=== PATIENT | female | born 1945 | race Caucasian/White ===

== ENCOUNTER → 2020-08-01 10:31 | Outpatient (BNVA) | payer MEDICARE, SELFPAY | PROVIDERS: PCP Family Medicine; Visit Provider Surgery | DX: L72.9 Follicular cyst of the skin and subcutaneous tissue, unspecified (principal); L08.9 Local infection of the skin and subcutaneous tissue, unspecified | CPT/HCPCS: 99212 ==

== ENCOUNTER 2020-09-18 12:22 | Outpatient (REF) | payer MEDICARE, SELFPAY ==
[2020-09-18 14:57] LABS: Creatinine Urine 39.93 mg/dL; Microalbum/Creatinine Ratio Ur 563.4 ug/mg cr
[2020-09-18 15:00] LABS: Alanine Aminotransferase 14 U/L (0-31); Albumin Level 3.7 g/dL (3.5-5.0); Alkaline Phosphatase 120 U/L (39-117); Anion Gap 14 (12-20); Aspartate Amino Transferase 16 U/L (5-31); Bilirubin Total 0.4 mg/dL (0.0-1.0); Blood Urea Nitrogen 25 mg/dL (9-16); Calcium 8.8 mg/dL (8.4-10.2); Carbon Dioxide 25 mmol/L (22-29); Chloride 105 mmol/L (96-108); Cholesterol 157 mg/dL; Estimated Glomerular Filt Rate 38; Glucose Fasting 146 mg/dL (60-99); HDL Cholesterol 51 mg/dL; LDL Cholesterol Calculated 90 mg/dl; Potassium 4.5 mmol/l (3.3-5.1); Sodium 139 mmol/L (135-145); Triglycerides 81 mg/dL
[2020-09-18 15:23] LABS: Vitamin B12 231 pg/mL (200-900)
[2020-09-19 09:03] LABS: LDL Cholesterol Direct 89 mg/dL (<100)
== END 2020-09-18 12:23 | disposition home or self-care (01) ==
LOC: HO.LAB 12:22
PROVIDERS: PCP Family Medicine; Visit Provider Internal Medicine Endocrinology, Diabetes & Metabolism
DX: E11.21 Type 2 diabetes mellitus with diabetic nephropathy (principal); E11.42 Type 2 diabetes mellitus with diabetic polyneuropathy; E11.22 Type 2 diabetes mellitus with diabetic chronic kidney disease; N18.30 Chronic kidney disease, stage 3 unspecified; E78.5 Hyperlipidemia, unspecified; I10 Essential (primary) hypertension; E66.01 Morbid (severe) obesity due to excess calories; Z79.4 Long term (current) use of insulin
CPT/HCPCS: 80053; 80061; 82043; 82607; 82947; 83721; 99212

== ENCOUNTER 2020-10-16 15:00 | Outpatient (RCR) | payer MEDICARE, SELFPAY | END 2020-10-24 10:46 | disposition other institution (70) | LOC: HO.PT 15:00 | PROVIDERS: PCP Family Medicine; Visit Provider Family Medicine | DX: M54.5 Low back pain (principal); G89.29 Other chronic pain | CPT/HCPCS: 97110; 97162 ==

== ENCOUNTER 2020-10-16 16:19 | Outpatient (REF) | payer MEDICARE, SELFPAY | END 2020-10-16 16:20 | disposition home or self-care (01) | LOC: HO.LAB 16:19 | PROVIDERS: PCP Family Medicine; Visit Provider Internal Medicine | DX: Z20.822 Contact with and (suspected) exposure to COVID-19 (principal) | CPT/HCPCS: 36415; C9803; U0003 ==

== ENCOUNTER 2020-11-07 10:17 | Emergency (ER) | payer MEDICARE, SELFPAY ==
[2020-11-07 10:48] VITALS: BP 146/47; BP 165/75; PULSE 76; PULSE 80; RESP 18; TEMP 36.6; O2SAT 99; BMI 40.4
[2020-11-07 11:02] LABS: Glucose, Whole Blood 139 mg/dL (60-115)
--- NOTE | 2020-11-07 11:06 | CT_ITS ---
EXAMINATION: CT ABDOMEN AND PELVIS WITHOUT CONTRAST CLINICAL INFORMATION: Abdominal pain. COMPARISON: CT 06/27/2018. TECHNIQUE: Multidetector volumetric imaging was performed from the superior aspect of the liver through the pubic symphysis. Sagittal and coronal reformatted images were obtained on the technologist's workstation. This CT examination was performed using dose optimization techniques as appropriate, variously including the following: *Automated exposure control *Adjustment of mA and/or kV according to patient size (this includes techniques or standardized protocols for targeted exams where dose is matched to indication/reason for exam; i.e. extremities or head) *Use of iterative reconstruction technique DLP: 904 mGy-cm FINDINGS: LUNG BASES: The lung bases are clear. Coronary artery calcification. Mitral annular calcification. LIVER, GALLBLADDER, AND BILIARY TREE: The liver is normal in size, shape, and attenuation. No focal hepatic lesion or intrahepatic biliary ductal dilatation is present. Cholecystectomy. Dilated appearance of the common bile duct, similar to prior. No ductal filling defect. PANCREAS: Unremarkable. SPLEEN: Unremarkable. ADRENAL GLANDS: Unremarkable. KIDNEYS AND URETERS: The kidneys are normal in size, shape, and attenuation. No hydronephrosis, hydroureter, or calculi seen. No perinephric stranding. BLADDER: Unremarkable. GASTROINTESTINAL TRACT: The stomach is unremarkable. Normal caliber small bowel. There is no obstruction. No colonic wall thickening or acute inflammatory change. Normal appendix. There is colonic diverticulosis which is most prominent involving the descending and sigmoid colon. No evidence of diverticulitis. No free air or free fluid. ABDOMINAL WALL: No significant hernia is appreciated. LYMPH NODES: Normal. VASCULAR: Normal caliber aorta with moderate atherosclerotic calcification. PELVIC VISCERA: The uterus and adnexa are unremarkable. OSSEOUS STRUCTURES: No acute or suspicious osseous abnormality. Degenerative changes of the spine with grade 1 anterolisthesis of L5 on S1. CT/CT abdomen pelvis wo con IMPRESSION: No acute findings in the abdomen or pelvis. Colonic diverticulosis without diverticulitis.
--- NOTE | 2020-11-07 11:07 | ECG_ITS ---
Test Reason : FLANK PAIN Blood Pressure : / mmHG Vent. Rate : 065 BPM Atrial Rate : 065 BPM P-R Int : 128 ms QRS Dur : 080 ms QT Int : 408 ms P-R-T Axes : 041 026 077 degrees QTc Int : 424 ms Normal sinus rhythm Nonspecific T wave abnormality Abnormal ECG No significant changes when compared with the previous EKG of 02 aug 2019 Referred By: Franci Sanchez Electronically Signed By:MABEL MIDDLETON
--- NOTE | 2020-11-07 11:07 | XR_ITS ---
EXAMINATION: XR CHEST CLINICAL INFORMATION: Unresponsive COMPARISON: 10/06/2019 TECHNIQUE: Frontal view of the chest was obtained. FINDINGS: Cardiac leads overlie the chest. The lungs are well expanded. Mild bronchial wall thickening noted. There is no focal consolidation, edema, or effusion. No pneumothorax. The cardiomediastinal silhouette is within normal limits of size, with a calcified aorta. No acute osseous abnormality. XR/XR chest 1V IMPRESSION: No consolidation. Bronchial wall thickening noted which could be in part chronic. Superimposed acute small airways process possible.
--- NOTE | 2020-11-07 11:13 | ED_ITS ---
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 Patient declined any fever chills, no respiratory symptoms, no chest pain, no headache. Related Data Home Medications Medication Instructions Recorded Confirmed amlodipine 5 mg tablet 10 mg PO DAILY tab 08/01/20 09/18/20 aspirin 81 mg tablet,delayed 81 mg PO DAILY 08/01/20 09/18/20 release atorvastatin 40 mg tablet 40 mg PO BEDTIME 08/01/20 09/18/20 carvedilol 25 mg tablet 25 mg PO Q12H 08/01/20 09/18/20 cilostazol 100 mg tablet 100 mg PO BID 08/01/20 09/18/20 ergocalciferol (vitamin D2) 1,250 1,250 mcg PO QWEEK 08/01/20 09/18/20 mcg (50,000 unit) capsule furosemide 20 mg tablet 20 mg PO QAM 08/01/20 09/18/20 gabapentin 300 mg capsule 300 mg PO BEDTIME 08/01/20 09/18/20 hydralazine 50 mg tablet 50 mg PO TID 08/01/20 09/18/20 lisinopril 40 mg tablet 40 mg PO DAILY 08/01/20 09/18/20 montelukast 10 mg tablet 10 mg PO BEDTIME 08/01/20 09/18/20 Previous Rx's Medication Instructions Recorded insulin glargine U-300 conc 300 47 unit SUBCUT DAILY 90 Days #15 ml 09/18/20 unit/mL (1.5 mL) subcutaneous pen linagliptin 5 mg tablet 5 mg PO DAILY 90 Days #90 tab 09/18/20 repaglinide 0.5 mg tablet 0.5 mg PO BID 90 Days #180 tab 09/18/20 sucralfate 1 gram tablet 2 g PO DAILY #60 tab 09/25/20 pen needle, diabetic 32 gauge x #50 ea 10/08/20 Allergies Allergy/AdvReac Type Severity Reaction Status Date / Time ibuprofen [From MOTRIN] Allergy Intermediate RASH Unverified 06/20/20 15:51 oxycodone [From PERCOCET] Allergy Intermediate ITCHING Unverified 06/20/20 15:51 acetaminophen [Percocet] Allergy Unknown Verified 05/01/20 00:00 Motrin Allergy Unknown high blood Unverified 06/06/20 00:00 pressure Review of Systems Review of Systems: All other systems are reviewed and are negative Constitutional: Reports as per HPI and Reports no additional constitutional complaints Eyes: Reports as per HPI and Reports no additional eye complaints Reports system reviewed and no additional complaints, except as documented Cardiovascular: Reports as per HPI and Reports no additional cardiovascular complaints Respiratory: Reports as per HPI and Reports no additional respiratory complaints Gastrointestinal: Reports as per HPI and Reports no additional gastrointestinal complaints Genitourinary: Reports no additional female genitourinary complaints Musculoskeletal: Reports no additional musculoskeletal complaints Skin/Breast: Reports system reviewed and no additional complaints, except as docu Psychiatric: Reports no additional psychiatric complaints Endocrine: Reports no additional endocrine complaints Hematologic/Lymphatic: Reports no additional hematologic/lymphatic complaints Allergic/Immunologic: Reports no additional allergic/immunologic complaints Reports system reviewed and no additional complaints, except as documented and Reports Abnormal speech present [facility] Past Medical History Medical History Asthma Chronic kidney disease CKD (chronic kidney disease) stage 3, GFR 30-59 ml/min Diabetes mellitus Diabetic nephropathy associated with type 2 diabetes mellitus Diabetic polyneuropathy associated with type 2 diabetes mellitus Dyslipidemia GERD (gastroesophageal reflux disease) Hypertension Infected cyst of skin senior care (current) use of insulin Morbid obesity Thalamic pain syndrome Surgical History History of breast lump/mass excision History of cholecystectomy History of tubal ligation Family History Family History Sister History of renal pelvis cancer Social History Social History Smoking Status: Never smoker Use of substances other than those prescribed or required for medical reasons: No Advance Directives: No Advance Directives Information Provided: No Physical Exam Vital Signs: Vital Signs: Last Vital Signs Temp 98 F 11/07/20 13:57 Pulse 65 11/07/20 13:57 Resp 13 11/07/20 13:57 BP 116/39 L 11/07/20 13:57 Pulse Ox 97 11/07/20 13:57 Body Mass Index 40.4 Vital signs have been reviewed as normal and appeared to be correct. Blood pressure in the high range. Heart rate normal. Respiration rate normal. Temp erature normal. Oxygen saturation normal. Appearance: Alert. Oriented X3. No acute distress. Head: Normal external exam. Normocephalic. Atraumatic. No Reed signs noted. No raccoon eyes noted Eyes: PERRLA. EOMI. Conjunctiva and sclera normal. Eyelids normal. ENT: TM's Normal. Pharynx normal. Uvula midline. Moist mucous membranes. No trismus noted. No drooling noted. No muffled voice noted. Neck: Normal inspection. Neck supple. FROM. No adenopathy. Thyroid Normal. No meningeal signs. No neck mass noted. CVS: Normal heart rate and rhythm. Heart sound normal. No murmurs noted. Pulses normal throughout. Respiratory: No respiratory distress. Painless inspiration. Breath sounds normal. No wheezes/rales/rhonchi noted. Chest nontender. No accessory muscle usage noted or decreased air movement noted. Abdomen: Soft and nontender. Bowel sounds normal in all 4 quadrants. No distention noted. No organomegaly noted. No visible injury noted. Back: No CVA tenderness. Full range of motion noted. Skin: Skin warm and dry. Normal skin color. Normal skin turgor. No rashes/lesions/lacerations noted. Extremities: No lower extremity edema. Extremities exhibit normal range of motion. Extremities nontender. Neuro: Oriented X 3. No motor deficit. No sensory deficit. Reflexes normal. Course Course Course Narrative: Assessment and plan. 75-year-old female who brought him by ambulance after was not able to wake her up this morning, patient is awake alert coherent, patient thinks she was too tired and too sleepy, patient had nonspecific abdominal pain that had negative CT of the abdomen and pelvis, decided slight elevation of BUN and creatinine labs are unremarkable, patient was instructed to drink fluids at home and follow-up with PCP. Medical Decision Making Lab Data Lab results reviewed: Yes I reviewed the patient's lab results. Result diagrams: 11/07/20 11:23 11/07/20 11:23 Labs: Lab Results 11/07/20 11/07/20 11/07/20 Range/Units 10:56 11:23 11:23 WBC 8.6 (4.8-10.8) X10*3/uL RBC 5.03 (4.20-5.50) X10*6/uL Hgb 12.5 (12.0-16.0) g/dl Hct 39.4 (37-47) % MCV 78.3 L (80-98) fL MCH 24.9 L (27.0-33.0) pg MCHC 31.7 (31.0-35.0) g/dl RDW 14.6 (11.0-16.0) % Plt Count 364 (160-400) X10*3/uL MPV 9.5 (9.4-12.3) fL Immature Gran % (Auto) 0.3 (0.0-0.4) % Neut % (Auto) 69.3 (45-73) % Lymph % (Auto) 21.0 (20-40) % [place] % (Auto) 6.1 (2-11) % Eos % (Auto) 2.7 (0-4) % Baso % (Auto) 0.6 (0-2) % Lymph # (Auto) 1.8 (1.2-4.9) X10*3/uL [place] # (Auto) 0.5 (0.1-1.2) X10*3/uL Eos # (Auto) 0.2 (0.0-0.4) X10*3/uL Baso # (Auto) 0.1 (0.0-0.2) X10*3/uL Abs Immat Gran (auto) 0.03 (0.00-0.03) X10*3/uL Absolute Neuts (auto) 6.0 (2.0-8.3) X10*3/uL Absolute Nucleated RBC 0.000 (0.0-0.012) X10*3/uL Nucleated RBC % (auto) 0.0 (0.0-0.2) /100WBC Sodium 139 (135-145) mmol/L Potassium 5.0 (3.3-5.1) mmol/L Chloride 108 (96-108) mmol/L Carbon Dioxide 22 (22-29) mmol/L Anion Gap 14 (12-20) BUN 30 H (9-16) mg/dL Creatinine 1.48 H (0.5-1.4) mg/dL Estim Creat Clear Calc 33.6 Estimated GFR 34 POC Glucose 139 H (60-115) mg/dL Random Glucose 146 H (60-115) mg/dL Calcium 8.9 (8.4-10.2) mg/dL Total Bilirubin 0.4 (0.0-1.0) mg/dL Direct Bilirubin 0.2 (0.0-0.5) mg/dL AST 24 D (5-31) U/L ALT 15 (0-31) U/L Alkaline Phosphatase 122 H (39-117) U/L Troponin I High Sens (<3.5-17.0) ng/L Total Protein 7.7 (6.5-8.0) g/dL Albumin 3.7 (3.5-5.0) g/dL Lipase 45 (8-78) U/L Urine Color Urine Appearance Urine pH (5.0-8.0) Ur Specific Bruin (1.005-1.025) Urine Protein (NEG-TRACE) MG/DL Urine Glucose (UA) (NEG) MG/DL Urine Ketones (NEG) MG/DL Urine Blood (NEG) Urine Nitrite (NEG) Ur Leukocyte Esterase (NEG) COVID-19 (FRANCA) (Negative) COVID-19 Clin Com 11/07/20 11/07/20 11/07/20 Range/Units 11:23 11:23 11:23 WBC (4.8-10.8) X10*3/uL RBC (4.20-5.50) X10*6/uL Hgb (12.0-16.0) g/dl Hct (37-47) % MCV (80-98) fL MCH (27.0-33.0) pg MCHC (31.0-35.0) g/dl RDW (11.0-16.0) % Plt Count (160-400) X10*3/uL MPV (9.4-12.3) fL Immature Gran % (Auto) (0.0-0.4) % Neut % (Auto) (45-73) % Lymph % (Auto) (20-40) % [place] % (Auto) (2-11) % Eos % (Auto) (0-4) % Baso % (Auto) (0-2) % Lymph # (Auto) (1.2-4.9) X10*3/uL [place] # (Auto) (0.1-1.2) X10*3/uL Eos # (Auto) (0.0-0.4) X10*3/uL Baso # (Auto) (0.0-0.2) X10*3/uL Abs Immat Gran (auto) (0.00-0.03) X10*3/uL Absolute Neuts (auto) (2.0-8.3) X10*3/uL Absolute Nucleated RBC (0.0-0.012) X10*3/uL Nucleated RBC % (auto) (0.0-0.2) /100WBC Sodium (135-145) mmol/L Potassium (3.3-5.1) mmol/L Chloride (96-108) mmol/L Carbon Dioxide (22-29) mmol/L Anion Gap (12-20) BUN (9-16) mg/dL Creatinine (0.5-1.4) mg/dL Estim Creat Clear Calc Estimated GFR POC Glucose (60-115) mg/dL Random Glucose (60-115) mg/dL Calcium (8.4-10.2) mg/dL Total Bilirubin (0.0-1.0) mg/dL Direct Bilirubin (0.0-0.5) mg/dL AST (5-31) U/L ALT (0-31) U/L Alkaline Phosphatase (39-117) U/L Troponin I High Sens 4.5 (<3.5-17.0) ng/L Total Protein (6.5-8.0) g/dL Albumin (3.5-5.0) g/dL Lipase (8-78) U/L Urine Color STRAW Urine Appearance HAZY Urine pH 6.0 (5.0-8.0) Ur Specific Bruin 1.010 (1.005-1.025) Urine Protein TRACE (NEG-TRACE) MG/DL Urine Glucose (UA) NEG (NEG) MG/DL Urine Ketones NEG (NEG) MG/DL Urine Blood NEG (NEG) Urine Nitrite NEG (NEG) Ur Leukocyte Esterase NEG (NEG) COVID-19 (FRANCA) Negative (Negative) COVID-19 Clin Com See Note Imaging Data Chest x-ray: Radiologist's impression: No consolidation. Bronchial wall thickening noted which could be in part chronic. Superimposed acute small airways process possible. CT scan - abdomen: Radiologist's impression: No acute findings in the abdomen or pelvis. Colonic diverticulosis without diverticulitis. Discharge Plan Discharge Clinical Impression: Abnormal renal function test Abdominal pain Qualifiers: Abdominal location: unspecified location Qualified Code(s): R10.9 - Unspecified abdominal pain Patient Disposition: Home, Self-Care Instructions: Abdominal Pain (ED) Additional Instructions: Drink oral fluid, follow-up with your primary doctor in regard to your abnormal labs of your kidney function. Prescriptions: No Action sucralfate 1 gram tablet 2 g PO DAILY Qty: 60 RF: 1 (DME) pen needle, diabetic [BD Sia 2nd Gen Pen Needle] 32 gauge x 5/32 needle See Rx Instructions .MEDSUPPLY Qty: 50 RF: 4 Toujeo SoloStar U-300 Insulin 300 unit/mL (1.5 mL) insulin pen 47 unit subcut DAILY 90 Days Qty: 15 RF: 1 Tradjenta 5 mg tablet 5 mg PO DAILY 90 Days Qty: 90 RF: 2 repaglinide 0.5 mg tablet 0.5 mg PO BID 90 Days Qty: 180 RF: 1 amlodipine 5 mg tablet 10 mg PO DAILY RF: 0 aspirin [Adult Aspirin Regimen] 81 mg tablet,delayed release (DR/EC) 81 mg PO DAILY RF: 0 atorvastatin 40 mg tablet 40 mg PO BEDTIME RF: 0 carvedilol 25 mg tablet 25 mg PO Q12H RF: 0 cilostazol 100 mg tablet 100 mg PO BID RF: 0 furosemide 20 mg tablet 20 mg PO QAM RF: 0 gabapentin 300 mg capsule 300 mg PO BEDTIME RF: 0 hydralazine 50 mg tablet 50 mg PO TID RF: 0 lisinopril 40 mg tablet 40 mg PO DAILY RF: 0 montelukast 10 mg tablet 10 mg PO BEDTIME RF: 0 ergocalciferol (vitamin D2) [Vitamin D2] 1,250 mcg (50,000 unit) capsule 1,250 mcg PO QWEEK RF: 0 Referrals: Marycarmen Quijano MD [Primary Care Provider] - 2 days
[2020-11-07 11:28] VITALS: BP 140/47; PULSE 64; RESP 18; O2SAT 100
[2020-11-07 11:30] LABS: MANUAL DIFF FLAG NO
[2020-11-07 11:34] LABS: Hematocrit 39.4 % (37-47); Hemoglobin 12.5 g/dl (12.0-16.0); Imm Gran Pct Auto 0.3 % (0.0-0.4); Mean Corpuscular HGB Conc 31.7 g/dl (31.0-35.0); Mean Corpuscular Hemoglobin 24.9 pg (27.0-33.0); Mean Corpuscular Volume 78.3 fL (80-98); Mean Platelet Volume 9.5 fL (9.4-12.3); Neutrophils Percent Auto 69.3 % (45-73); Platelet Count 364 X10*3/uL (160-400); Red Blood Count 5.03 X10*6/uL (4.20-5.50); Red Cell Distribution Width 14.6 % (11.0-16.0); White Blood Count 8.6 X10*3/uL (4.8-10.8)
[2020-11-07 11:35] LABS: Basophils Absolute Auto 0.1 X10*3/uL (0.0-0.2); Basophils Percent Auto 0.6 % (0-2); Eosinophils Absolute Auto 0.2 X10*3/uL (0.0-0.4); Eosinophils Percent Auto 2.7 % (0-4); Imm Gran Abs Auto 0.03 X10*3/uL (0.00-0.03); Lymphocytes Absolute Auto 1.8 X10*3/uL (1.2-4.9); Monocytes Absolute Auto 0.5 X10*3/uL (0.1-1.2); Monocytes Percent Auto 6.1 % (2-11)
[2020-11-07] MEDS: 0.9 % Sodium Chloride 1,000 ML 999 ML IVCONT (11:35)
[2020-11-07 11:46] LABS: IDNOW Serial# 9DD0AD1C
[2020-11-07 11:47] LABS: COVID-19 Test Negative (Negative)
[2020-11-07 11:54] LABS: Appearance Urine HAZY; Color Urine STRAW; Glucose Urine UA NEG (NEG); Leukocyte Esterase Urine NEG (NEG); Nitrite Urine NEG (NEG); Urine Blood NEG (NEG); Urine Ketones NEG (NEG); Urine Protein TRACE MG/DL (NEG-TRACE)
[2020-11-07 12:07] LABS: Alanine Aminotransferase 15 U/L (0-31); Albumin Level 3.7 g/dL (3.5-5.0); Alkaline Phosphatase 122 U/L (39-117); Anion Gap 14 (12-20); Aspartate Amino Transferase 24 U/L (5-31); Bilirubin Direct 0.2 mg/dL (0.0-0.5); Bilirubin Total 0.4 mg/dL (0.0-1.0); Blood Urea Nitrogen 30 mg/dL (9-16); Calcium 8.9 mg/dL (8.4-10.2); Carbon Dioxide 22 mmol/L (22-29); Chloride 108 mmol/L (96-108); Creatinine Clr Calc Pharmacy 33.6; Estimated Glomerular Filt Rate 34; Glucose Random 146 mg/dL (60-115); Lipase 45 U/L (8-78); Sodium 139 mmol/L (135-145); Total Protein 7.7 g/dL (6.5-8.0)
[2020-11-07 12:11] LABS: Troponin-I High Sensitivity 4.5 ng/L (<3.5-17.0)
[2020-11-07 12:59] VITALS: BP 138/47; PULSE 65; RESP 18; O2SAT 97
--- NOTE | 2020-11-07 13:01 | PC.NURSE ---
pt reports feeling better denies pain at this time, states she is hungry, vs stable, ns on the monitor. pt is very gassy/burping a lot
[2020-11-07 13:57] VITALS: BP 116/39; PULSE 65; RESP 13; TEMP 36.6; O2SAT 97
== END 2020-11-07 15:45 | disposition home or self-care (01) ==
PROVIDERS: Emergency Provider Emergency Medicine; PCP Family Medicine
DX: R94.5 Abnormal results of liver function studies (principal); R10.9 Unspecified abdominal pain; I10 Essential (primary) hypertension; E11.9 Type 2 diabetes mellitus without complications; Z20.822 Contact with and (suspected) exposure to COVID-19; Z79.4 Long term (current) use of insulin; Z79.899 Other long term (current) drug therapy
CPT/HCPCS: 36415; 71045; 74176; 80048; 80076; 81003; 82947; 83690; 84484; 85025; 87635; 93005; 96360; 99284

== ENCOUNTER 2020-12-12 13:51 | Outpatient (REF) | payer MEDICARE, SELFPAY ==
[2020-12-13 09:02] LABS: BV Int Neg Control Negative (Negative); BV Int Pos Control Positive (Positive)
[2020-12-13 14:24] LABS: CT PCR NOT DETECTED (Not Detect.); NG PCR NOT DETECTED (Not Detect.)
== END 2020-12-12 13:52 | disposition home or self-care (01) ==
LOC: HO.LAB 13:51
PROVIDERS: Visit Provider Advanced Practice Midwife
DX: R10.2 Pelvic and perineal pain (principal); N76.0 Acute vaginitis; Z79.4 Long term (current) use of insulin; Z20.2 Contact with and (suspected) exposure to infections with a predominantly sexual mode of transmission
CPT/HCPCS: 87086; 87480; 87491; 87510; 87591; 87660; 99212

== ENCOUNTER 2020-12-17 15:32 | Outpatient (REF) | payer MEDICARE, SELFPAY ==
--- NOTE | ~2020-12-17 | US_ITS ---
EXAMINATION: PELVIC ULTRASOUND CLINICAL INFORMATION: Pelvic and perineal pain COMPARISON: Previous pelvic ultrasound June [address] of the abdomen and pelvis November 2020 TECHNIQUE: Transabdominal and transvaginal pelvic ultrasound was performed. Transvaginal exam was performed for better visualization of the uterus and ovaries. FINDINGS: The uterus is anteverted and measures 7.9 x 5.1 x 6 cm in dimension. No focal uterine lesion is seen. There are peripheral echogenic densities in the uterus which when compared with previous CT scan probably represent vascular calcifications. No focal uterine lesion is seen. There is a small amount of fluid seen in the endometrial canal. The endometrium does not appear thickened, double thickness endometrium measuring 0.2 cm. There is a small amount of fluid seen in the endocervical canal. This is similar to previous exam June 2019. The ovaries are not seen. There is no fluid in the pelvis. US/US transvaginal IMPRESSION: Small amount of fluid in the endometrial canal and endocervical canal similar to previous pelvic ultrasound June 2019. The endometrium does not appear thickened. The ovaries are not seen.
--- NOTE | ~2020-12-17 | US_ITS ---
EXAMINATION: PELVIC ULTRASOUND CLINICAL INFORMATION: Pelvic and perineal pain COMPARISON: Previous pelvic ultrasound June [address] of the abdomen and pelvis November 2020 TECHNIQUE: Transabdominal and transvaginal pelvic ultrasound was performed. Transvaginal exam was performed for better visualization of the uterus and ovaries. FINDINGS: The uterus is anteverted and measures 7.9 x 5.1 x 6 cm in dimension. No focal uterine lesion is seen. There are peripheral echogenic densities in the uterus which when compared with previous CT scan probably represent vascular calcifications. No focal uterine lesion is seen. There is a small amount of fluid seen in the endometrial canal. The endometrium does not appear thickened, double thickness endometrium measuring 0.2 cm. There is a small amount of fluid seen in the endocervical canal. This is similar to previous exam June 2019. The ovaries are not seen. There is no fluid in the pelvis. US/US pelvic complete IMPRESSION: Small amount of fluid in the endometrial canal and endocervical canal similar to previous pelvic ultrasound June 2019. The endometrium does not appear thickened. The ovaries are not seen.
== END 2020-12-17 15:33 | disposition home or self-care (01) ==
LOC: HO.US 15:32
PROVIDERS: Visit Provider Advanced Practice Midwife
DX: R10.2 Pelvic and perineal pain (principal)
CPT/HCPCS: 76830; 76856

== ENCOUNTER → 2020-12-31 14:02 | Outpatient (BNVA) | payer MEDICARE, SELFPAY | PROVIDERS: Visit Provider Advanced Practice Midwife | DX: Z13.89 Encounter for screening for other disorder (principal) | CPT/HCPCS: Q3014 ==

== ENCOUNTER → 2021-01-16 10:38 | Outpatient (BNVA) | payer MEDICARE, SELFPAY | PROVIDERS: Visit Provider Internal Medicine Endocrinology, Diabetes & Metabolism | CPT/HCPCS: Q3014 ==

== ENCOUNTER 2021-01-17 20:14 | Inpatient (IN) | payer MEDICARE, SELFPAY ==
--- NOTE | ~2021-01-17 | CT_ITS ---
EXAMINATION: CT ANGIOGRAM OF THE CHEST WITH AND WITHOUT CONTRAST (CT PULMONARY ANGIOGRAM FOR PE) CLINICAL INFORMATION: Reason for Exam covid with hypoxia COMPARISON: CT chest 04/08/2016, CT abdomen pelvis 11/07/2020 TECHNIQUE: Prior to contrast administration, noncontrast localization images were obtained. Subsequently, multidetector volumetric imaging was performed from the thoracic inlet to below the diaphragms following the administration of 65 mL Omnipaque 350 intravenous contrast. No contrast reaction reported Sagittal, coronal, and MIP oblique sagittal reformatted images were obtained on the CT workstation, uploaded to PACS, and reviewed. This CT examination was performed using dose optimization techniques as appropriate, variously including the following: *Automated exposure control *Adjustment of mA and/or kV according to patient size (this includes techniques or standardized protocols for targeted exams where dose is matched to indication/reason for exam; i.e. extremities or head) *Use of iterative reconstruction technique Total exam dose-length product 462 mGy-cm FINDINGS: QUALITY OF STUDY/CONTRAST BOLUS: Suboptimal. PULMONARY ARTERIES: No large central or segmental pulmonary emboli. THORACIC AORTA: No aneurysm or dissection. LUNG: Diffuse multifocal groundglass infiltrates are present throughout the lungs. PLEURA: No pleural effusion or pneumothorax. MEDIASTINUM: Heart size upper limits of normal. No pericardial effusion. Small reactive mediastinal and hilar lymph nodes are present but there is no gross hilar or mediastinal lymphadenopathy. No evidence of septal bowing or right heart strain. CHEST WALL/AXILLA: No axillary or internal mammary lymphadenopathy. OSSEOUS STRUCTURES: No acute or suspicious osseous abnormality. UPPER ABDOMEN: Status post cholecystectomy No reflux of contrast into the hepatic veins to suggest elevated right heart pressures. CT/CT angio chest PE protocol IMPRESSION: 1. No evidence of pulmonary emboli. 2. Commonly reported imaging features of Covid 19 or viral pneumonia are present with multifocal diffuse groundglass infiltrates. Other processes such as influenza pneumonia or organizing pneumonia, as can be seen with drug toxicity and connective tissue disease, can cause a similar imaging pattern. VTE: negative
--- NOTE | ~2021-01-17 | XR_ITS ---
EXAMINATION: XR CHEST CLINICAL INFORMATION: Dyspnea COMPARISON: 11/07/2020 TECHNIQUE: Frontal view of the chest was obtained. FINDINGS: Since the prior study has developed multifocal patchy ill-defined infiltrates throughout both lungs. Heart size normal. No pleural effusions seen. No evidence of CHF. XR/XR chest 1V IMPRESSION: Commonly reported imaging features of Covid 19 or viral pneumonia are present with extensive patchy groundglass infiltrates throughout both. Other processes such as influenza pneumonia or organizing pneumonia, as can be seen with drug toxicity and connective tissue disease, can cause a similar imaging pattern.
--- NOTE | ~2021-01-17 | IR_ITS ---
EXAMINATION: ULTRASOUND FLUOROSCOPY-GUIDED TEMPORARY DIALYSIS CATHETER. CLINICAL INFORMATION: Needs immediate dialysis. COMPARISON: None TECHNIQUE: Following explaining fluoroscopy and ultrasound-guided placement of right-sided smoker 10 predialysis catheter procedure, benefits and risk, a written consent was obtained via a museum director. Patient was placed supine and the right neck area was cleaned and draped in usual sterile manner. Under sterile ultrasound guidance the right jugular vein was localized in anterior neck and 1% lidocaine was administered along the anterolateral aspect of neck. A single wall needle was then advanced from the skin into the jugular vein under ultrasound guidance. After observing blood return a thin guidewire was advanced into the SVC and needle withdrawn. A 5 Nauruan dilator with sheath was advanced over the guidewire and the guidewire was removed. A 0.035 inch J-wire was advanced through the sheath after removing the dilator under fluoroscopy. The catheter was advanced beyond the heart into the IVC. The 5 Nauruan sheath was removed. Over the guidewire a 12 Nauruan Mahurkar 10. Assess catheter was advanced and placed in SVC. The guidewire was removed the catheter was flushed with simple saline followed by heparinized saline. The catheter was anchored to the skin with two 3-0 nylon sutures. Sterile dressing was applied postprocedure. No IV sedation utilized. Patient tolerated procedure extremely well FINDINGS: On preliminary ultrasound imaging there is widely patent but enlarged jugular vein. Fluoroscopy-guided placement of a right jugular 12 Nauruan, 13 cm long right temporal Mahurkar catheter with its tip in mid SVC. The catheter can be used for dialysis. IR/IR us guide venous access IMPRESSION: Successful ultrasound and fluoroscopy-guided placement of right jugular temporary catheter without immediate complications. Fluoroscopy time: 0.7 minutes. Dose area product: 350 cGy.cm2
--- NOTE | ~2021-01-17 | US_ITS ---
EXAMINATION: US RETROPERITONEAL LIMITED (RENAL ONLY) CLINICAL INFORMATION: Acute renal insufficiency. Evaluate for obstruction. COMPARISON: CTA chest 01/18/2021, CT abdomen noncontrast 11/07/2020. TECHNIQUE: Ultrasound of the kidneys is performed using grayscale imaging and color Doppler. FINDINGS: RIGHT KIDNEY: 11.2 x 5.2 x 5.7 cm (SAG x AP x TRV). There is no hydronephrosis or caliectasis. Renal parenchymal thickness and echogenicity appear within normal. No visible renal sinus calculi. There may be a small cyst lower pole approximately 1.3 cm, difficult to confirm on the submitted images. LEFT KIDNEY: 12.0 x 5.4 x 5.7 cm (SAG x AP x TRV). There is no hydronephrosis or caliectasis. Renal parenchymal thickness and echogenicity appear within normal. No visible renal sinus calculi. US/US renal BI IMPRESSION: No hydronephrosis.
--- NOTE | ~2021-01-17 | IR_ITS ---
EXAMINATION: ULTRASOUND FLUOROSCOPY-GUIDED TEMPORARY DIALYSIS CATHETER. CLINICAL INFORMATION: Needs immediate dialysis. COMPARISON: None TECHNIQUE: Following explaining fluoroscopy and ultrasound-guided placement of right-sided smoker 10 predialysis catheter procedure, benefits and risk, a written consent was obtained via a profiler hand. Patient was placed supine and the right neck area was cleaned and draped in usual sterile manner. Under sterile ultrasound guidance the right jugular vein was localized in anterior neck and 1% lidocaine was administered along the anterolateral aspect of neck. A single wall needle was then advanced from the skin into the jugular vein under ultrasound guidance. After observing blood return a thin guidewire was advanced into the SVC and needle withdrawn. A 5 Guinean dilator with sheath was advanced over the guidewire and the guidewire was removed. A 0.035 inch J-wire was advanced through the sheath after removing the dilator under fluoroscopy. The catheter was advanced beyond the heart into the IVC. The 5 Guinean sheath was removed. Over the guidewire a 12 Guinean Mahurkar 10. Assess catheter was advanced and placed in SVC. The guidewire was removed the catheter was flushed with simple saline followed by heparinized saline. The catheter was anchored to the skin with two 3-0 nylon sutures. Sterile dressing was applied postprocedure. No IV sedation utilized. Patient tolerated procedure extremely well FINDINGS: On preliminary ultrasound imaging there is widely patent but enlarged jugular vein. Fluoroscopy-guided placement of a right jugular 12 Guinean, 13 cm long right temporal Mahurkar catheter with its tip in mid SVC. The catheter can be used for dialysis. IR/IR fluoro guide cv catheter IMPRESSION: Successful ultrasound and fluoroscopy-guided placement of right jugular temporary catheter without immediate complications. Fluoroscopy time: 0.7 minutes. Dose area product: 350 cGy.cm2
[2021-01-17 20:50] VITALS: BP 122/54; PULSE 85; RESP 20; TEMP 37.9; O2SAT 84; BMI 45.7
--- NOTE | 2021-01-17 21:06 | PC.NURSE ---
Patient placed on nonrebreather. Pt's color and appearance is well, aside from tachypnea. Slovak speaking. Reports that is COVID+. Pt speaking in clear sentences at this time with some dyspnea noted. Oxygen saturation improving with non-rebreather. Pt was 75% on room air, 80s% with 6lpm nasal cannula. Triaged by Lorie Wang RN, awaiting primary MD evaluation.
--- NOTE | 2021-01-17 21:09 | ECG_ITS ---
Test Reason : SOB Blood Pressure : / mmHG Vent. Rate : 087 BPM Atrial Rate : 087 BPM P-R Int : 118 ms QRS Dur : 084 ms QT Int : 332 ms P-R-T Axes : 048 010 057 degrees QTc Int : 399 ms Poor data quality Sinus rhythm with occasional Premature ventricular complexes When compared to the previous EKG of Poor data quality in current ECG precludes serial comparison Referred By: Generic ED Physician Electronically Signed By:Kip Johnson
[2021-01-17 21:23] LABS: MANUAL DIFF FLAG NO
[2021-01-17 21:29] LABS: Basophils Percent Auto 0.2 % (0-2); Hematocrit 36.1 % (37-47); Hemoglobin 11.9 g/dl (12.0-16.0); Imm Gran Abs Auto 0.05 X10*3/uL (0.00-0.03); Imm Gran Pct Auto 0.5 % (0.0-0.4); Lymphocytes Absolute Auto 0.9 X10*3/uL (1.2-4.9); Mean Corpuscular Hemoglobin 24.3 pg (27.0-33.0); Mean Corpuscular Volume 73.7 fL (80-98); Mean Platelet Volume 9.6 fL (9.4-12.3); Monocytes Absolute Auto 0.3 X10*3/uL (0.1-1.2); Monocytes Percent Auto 2.9 % (2-11); Neutrophils Absolute Auto 8.5 X10*3/uL (2.0-8.3); Neutrophils Percent Auto 87.4 % (45-73); Platelet Count 307 X10*3/uL (160-400); Red Cell Distribution Width 14.7 % (11.0-16.0); White Blood Count 9.8 X10*3/uL (4.8-10.8)
[2021-01-17 22:10] LABS: Troponin-I High Sensitivity 25.3 ng/L (<3.5-17.0)
[2021-01-17] MEDS: Albuterol/Iprat 2.5/0.5MG 3 ML AMPUL.NEB INHALE (22:23)
[2021-01-17 22:24] VITALS: PULSE 82; O2SAT 92
[2021-01-17 22:27] LABS: COVID-19 Test Positive (Negative)
[2021-01-17 22:28] VITALS: PULSE 75; O2SAT 88
[2021-01-17] MEDS: Albuterol Sulfate (0.083%) 2.5 MG/3 ML VIAL.NEB 5 MG INHALE (22:28)
[2021-01-17 22:32] LABS: B Type Natriuretic Peptide 134 pg/mL (<100)
--- NOTE | 2021-01-17 22:33 | ED_ITS ---
HPI - General Adult General Chief complaint: General Medical Stated complaint: Diarrhea Time Seen by Provider: 01/17/21 21:40 Source: patient Mode of arrival: ambulatory Limitations: language barrier History of Present Illness HPI narrative: PATIENT WITH HISTORY OF ASTHMA OBESITY DIABETES HYPERTENSION BEEN SICK WITH INCREASED SHORTNESS OF BREATH AND COUGH AND LOW-GRADE FEVER FOR LAST 13 DAYS. HER AND DAUGHTER ALSO SICK WITH SAME TESTED POSITIVE FOR COVID ON 01/04 PATIENT HAS BEEN FEELING VERY WEAK AND FOR LAST 3 DAYS BEEN HAVING DIARRHEA 5-6 BOWEL MOVEMENTS WITH NAUSEA NO VOMITING. WHEN SHE ARRIVED IN THE ER PATIENT WAS SATURATING 70-75% AT ROOM AIR Related Data Home Medications Medication Instructions Recorded Confirmed amlodipine 5 mg tablet 10 mg PO DAILY tab 08/01/20 01/16/21 aspirin 81 mg tablet,delayed 81 mg PO DAILY 08/01/20 01/16/21 release carvedilol 25 mg tablet 25 mg PO Q12H 08/01/20 01/16/21 cilostazol 100 mg tablet 100 mg PO BID 08/01/20 01/16/21 ergocalciferol (vitamin D2) 1,250 1,250 mcg PO QWEEK 08/01/20 01/16/21 mcg (50,000 unit) capsule furosemide 20 mg tablet 20 mg PO QAM 08/01/20 01/16/21 gabapentin 300 mg capsule 300 mg PO BEDTIME 08/01/20 01/16/21 hydralazine 50 mg tablet 50 mg PO TID 08/01/20 01/16/21 montelukast 10 mg tablet 10 mg PO BEDTIME 08/01/20 01/16/21 Previous Rx's Medication Instructions Recorded sucralfate 1 gram tablet 2 g PO DAILY #60 tab 09/25/20 fluconazole 150 mg tablet 150 mg PO DAILY #1 tab 12/31/20 atorvastatin 40 mg tablet 40 mg PO BEDTIME 90 Days #90 tab 01/16/21 insulin glargine U-300 conc 300 47 unit SUBCUT DAILY 90 Days #15 ml 01/16/21 unit/mL (1.5 mL) subcutaneous pen linagliptin 5 mg tablet 5 mg PO DAILY 90 Days #90 tab 01/16/21 lisinopril 40 mg tablet 40 mg PO DAILY 90 Days #90 tab 01/16/21 pen needle, diabetic 32 gauge x #50 ea 01/16/21 Allergies Allergy/AdvReac Type Severity Reaction Status Date / Time ibuprofen [From MOTRIN] Allergy Intermediate RASH Verified 01/16/21 10:40 oxycodone [From PERCOCET] Allergy Intermediate ITCHING Verified 01/16/21 10:40 acetaminophen [Percocet] Allergy Unknown unknown Verified 01/16/21 10:40 Motrin Allergy Unknown high blood Verified 01/16/21 10:40 pressure Review of Systems Review of Systems: CONSTITUTIONAL : NO WEIGHT LOSS, NO FEVER, NO CHILLS ENT/MOUTH : NO SORE THROAT, NO RHINORRHEA EYES: NO EYE PAIN, NO SWELLING CARDIOVASCULAR : NO CHEST PAIN, NO PALPITATIONS RESPIRATORY : +COUGH, NO SPUTUM, + SHORTNESS OF BREATH GASTROINTESTINAL : + NAUSEA, NO VOMITING, +DIARRHEA, NO ABDOMINAL PAIN, NO BLACK STOOLS GENITOURINARY : NO DYSURIA, NO URINARY FREQUENCY MUSCULOSKELETAL : NO JOINT PAIN, NO MYALGIAS, NO JOINT SWELLING SKIN : NO SKIN LESIONS, NO RASH NEURO : NO WEAKNESS, NO NUMBNESS, NO DIZZINESS, NO HEADACHE PSYCH : NO ANXIETY/PANIC, NO DEPRESSION HEME/LYMPH: NO BRUISING, NO LYMPHADENOPATHY ENDOCRINE : NO POLYURIA, NO POLYDIPSIA ALL OTHER SYSTEMS REVIEWED AND ARE NEGATIVE [facility] Past Medical History Medical History Asthma Chronic kidney disease CKD (chronic kidney disease) stage 3, GFR 30-59 ml/min Diabetes mellitus Diabetic nephropathy associated with type 2 diabetes mellitus Diabetic polyneuropathy associated with type 2 diabetes mellitus Dyslipidemia GERD (gastroesophageal reflux disease) Hypertension Infected cyst of skin half-way (current) use of insulin Morbid obesity Thalamic pain syndrome Surgical History History of breast lump/mass excision History of cholecystectomy History of tubal ligation Family History Family History Sister History of renal pelvis cancer Social History Social History Alcohol intake: never Smoking Status: Former smoker Advance Directives: No Advance Directives Information Provided: No Gender identity: female Physical Exam Vital Signs: Vital Signs: Last Vital Signs Temp 98.8 F 01/18/21 00:00 Pulse 82 01/18/21 00:00 Resp 21 H 01/18/21 00:00 BP 114/43 L 01/18/21 00:00 Pulse Ox 94 01/18/21 00:00 Body Mass Index 45.7 Const: General: well developed and acute distress Nutritional Appearance: obese Orientation/consciousness: patient oriented x3 HENMT: Head: Yes normal to inspection, Yes normocephalic and Yes atraumatic Ears: hearing grossly normal bilaterally Mouth: Normal oral and palatal mucosa present Throat: Yes posterior oropharynx normal Eyes: General: appearance normal, both eyes and all related structures Neck: Neck: Yes normal visual inspection, Yes full ROM and Yes no lymphaden opathy Chest: Chest palpation & inspection: normal inspection of the chest Resp: Effort & Inspection: able to speak in complete sentences, labored, nasal flaring, uses accessory muscles and prolonged expiratory phase Auscultation: crackles, rales, rhonchi and wheezes Cardio: Jugular venous distension: no JVD Palpation: normal PMI Rate: regular rate Rhythm: regular rhythm Heart sounds: S1 normal heart sound present and S2 normal heart sound present Peripheral pulses: Peripheral pulses 2+ throughout GI: Inspection: Yes normal to inspection Palpation (GI): Soft to palpation and nontender Auscultation: normal bowel sounds : General: Yes no CVA tenderness Back/Spine/Pelvis: Back: no CVA tenderness Thoracic/Lumbar Spine: thoracic and lumbar spine normal to inspection, No thoracic spinal tenderness and No lumbar spinal tenderness Skin: General skin exam: no rashes or lesions noted Neuro: General: patient oriented x3, moves all extremities, no focal motor deficits and CN's II-XI intact bilaterally Extrem: General: Yes normal to inspection, Yes full ROM, Yes no calf tenderness and No pedal edema Medical Decision Making [facility] Narrative Medical decision making narrative: PATIENT WITH COVID-19 POSITIVE WITH BILATERAL INFILTRATE WITH SIGNIFICANT HYPOXIA WITH DIABETES AND HYPERTENSION AND ASTHMA. WILL ADMIT PATIENT FOR OXYGEN TREATMENT PATIENT REQUIRING 100% NON-REBREATHER TO KEEP SATURATION ABOVE 94% AT THIS TIME PATIENT IS COMFORTABLE WILL CHANGE TO HIGH-FLOW IF SHE GETS MORE SHORT OF BREATH. CTA CHEST IS NEGATIVE FOR PE BUT SHOWED BILATERAL DIFFUSE INFILTRATES. PATIENT HAS HIGH LEVEL OF INFLAMMATORY MARKERS. WILL GIVE IV STEROIDS PROPHYLACTIC ANTIBIOTIC ROCEPHIN ZITHROMAX AND ADMIT Lab Data Lab results reviewed: Yes I reviewed the patient's lab results. Result diagrams: 01/17/21 21:17 01/17/21 22:32 Labs: Lab Results 01/17/21 01/17/21 01/17/21 Range/Units 21:17 21:17 21:17 WBC 9.8 (4.8-10.8) X10*3/uL RBC 4.90 (4.20-5.50) X10*6/uL Hgb 11.9 L (12.0-16.0) g/dl Hct 36.1 L (37-47) % MCV 73.7 L (80-98) fL MCH 24.3 L (27.0-33.0) pg MCHC 33.0 (31.0-35.0) g/dl RDW 14.7 (11.0-16.0) % Plt Count 307 (160-400) X10*3/uL MPV 9.6 (9.4-12.3) fL Immature Gran % (Auto) 0.5 H (0.0-0.4) % Neut % (Auto) 87.4 H (45-73) % Lymph % (Auto) 9.0 L (20-40) % [place] % (Auto) 2.9 (2-11) % Eos % (Auto) 0.0 (0-4) % Baso % (Auto) 0.2 (0-2) % Lymph # (Auto) 0.9 L (1.2-4.9) X10*3/uL [place] # (Auto) 0.3 (0.1-1.2) X10*3/uL Eos # (Auto) 0.0 (0.0-0.4) X10*3/uL Baso # (Auto) 0.0 (0.0-0.2) X10*3/uL Abs Immat Gran (auto) 0.05 H (0.00-0.03) X10*3/uL Absolute Neuts (auto) 8.5 H (2.0-8.3) X10*3/uL Absolute Nucleated RBC 0.000 (0.0-0.012) X10*3/uL Nucleated RBC % (auto) 0.0 (0.0-0.2) /100WBC PT (10.8-13.0) SEC INR (0.9-1.1) APTT (24.1-38.0) SEC D-Dimer NG/ML Hold Blue Top SEE NOTE Sodium (135-145) mmol/L Potassium (3.3-5.1) mmol/L Chloride (96-108) mmol/L Carbon Dioxide (22-29) mmol/L Anion Gap (12-20) BUN (9-16) mg/dL Creatinine (0.5-1.4) mg/dL Estim Creat Clear Calc Estimated GFR Random Glucose (60-115) mg/dL Lactic Acid (0.5-2.0) mmol/L Calcium (8.4-10.2) mg/dL Lactate Dehydrogenase (122-220) U/L Troponin I High Sens 25.3 H D (<3.5-17.0) ng/L C-Reactive Protein (< or = 0.50) mg/dL B-Natriuretic Peptide 134 H (<100) pg/mL COVID-19 ([facility]ANCA) (Negative) COVID-19 Clin Com 01/17/21 01/17/21 01/17/21 Range/Units 21:56 22:32 22:32 WBC (4.8-10.8) X10*3/uL RBC (4.20-5.50) X10*6/uL Hgb (12.0-16.0) g/dl Hct (37-47) % MCV (80-98) fL MCH (27.0-33.0) pg MCHC (31.0-35.0) g/dl RDW (11.0-16.0) % Plt Count (160-400) X10*3/uL MPV (9.4-12.3) fL Immature Gran % (Auto) (0.0-0.4) % Neut % (Auto) (45-73) % Lymph % (Auto) (20-40) % [place] % (Auto) (2-11) % Eos % (Auto) (0-4) % Baso % (Auto) (0-2) % Lymph # (Auto) (1.2-4.9) X10*3/uL [place] # (Auto) (0.1-1.2) X10*3/uL Eos # (Auto) (0.0-0.4) X10*3/uL Baso # (Auto) (0.0-0.2) X10*3/uL Abs Immat Gran (auto) (0.00-0.03) X10*3/uL Absolute Neuts (auto) (2.0-8.3) X10*3/uL Absolute Nucleated RBC (0.0-0.012) X10*3/uL Nucleated RBC % (auto) (0.0-0.2) /100WBC PT (10.8-13.0) SEC INR (0.9-1.1) APTT (24.1-38.0) SEC D-Dimer NG/ML Hold Blue Top Sodium 133 L (135-145) mmol/L Potassium 4.8 (3.3-5.1) mmol/L Chloride 100 (96-108) mmol/L Carbon Dioxide 20 L (22-29) mmol/L Anion Gap 18 (12-20) BUN 30 H (9-16) mg/dL Creatinine 1.42 H (0.5-1.4) mg/dL Estim Creat Clear Calc 40.7 Estimated GFR 36 Random Glucose 120 H (60-115) mg/dL Lactic Acid 1.0 (0.5-2.0) mmol/L Calcium 8.3 L D (8.4-10.2) mg/dL Lactate Dehydrogenase 494 H (122-220) U/L Troponin I High Sens (<3.5-17.0) ng/L C-Reactive Protein 15.78 H (< or = 0.50) mg/dL B-Natriuretic Peptide (<100) pg/mL COVID-19 ([facility]ANCA) Positive A (Negative) COVID-19 Clin Com See Note 01/17/21 Range/Units 22:32 WBC (4.8-10.8) X10*3/uL RBC (4.20-5.50) X10*6/uL Hgb (12.0-16.0) g/dl Hct (37-47) % MCV (80-98) fL MCH (27.0-33.0) pg MCHC (31.0-35.0) g/dl RDW (11.0-16.0) % Plt Count (160-400) X10*3/uL MPV (9.4-12.3) fL Immature Gran % (Auto) (0.0-0.4) % Neut % (Auto) (45-73) % Lymph % (Auto) (20-40) % [place] % (Auto) (2-11) % Eos % (Auto) (0-4) % Baso % (Auto) (0-2) % Lymph # (Auto) (1.2-4.9) X10*3/uL [place] # (Auto) (0.1-1.2) X10*3/uL Eos # (Auto) (0.0-0.4) X10*3/uL Baso # (Auto) (0.0-0.2) X10*3/uL Abs Immat Gran (auto) (0.00-0.03) X10*3/uL Absolute Neuts (auto) (2.0-8.3) X10*3/uL Absolute Nucleated RBC (0.0-0.012) X10*3/uL Nucleated RBC % (auto) (0.0-0.2) /100WBC PT 12.3 (10.8-13.0) SEC INR 1.0 (0.9-1.1) APTT 31.9 (24.1-38.0) SEC D-Dimer 1383 NG/ML Hold Blue Top Sodium (135-145) mmol/L Potassium (3.3-5.1) mmol/L Chloride (96-108) mmol/L Carbon Dioxide (22-29) mmol/L Anion Gap (12-20) BUN (9-16) mg/dL Creatinine (0.5-1.4) mg/dL Estim Creat Clear Calc Estimated GFR Random Glucose (60-115) mg/dL Lactic Acid (0.5-2.0) mmol/L Calcium (8.4-10.2) mg/dL Lactate Dehydrogenase (122-220) U/L Troponin I High Sens (<3.5-17.0) ng/L C-Reactive Protein (< or = 0.50) mg/dL B-Natriuretic Peptide (<100) pg/mL COVID-19 ([facility]ANCA) (Negative) COVID-19 Clin Com Imaging Data CT scan - chest: Attestation: I personally reviewed and interpreted this imaging study as follows: Radiologist's impression: [address] [id number] Scan ReportSigned Patient: Waqas MontesR#: [id number]: 5Acct:[id number]/Sex: 75 / FADM Date: 01/17/21Loc: [id number] Dr: Femi Rosales MD Ordering Physician: Marcel Patel MD Date of Service: 01/17/21 Procedure(s): CT angio chest PE protocol Accession Number(s): [id number] cc: Marcel Patel MD~ EXAMINATION: CT ANGIOGRAM OF THE CHEST WITH AND WITHOUT CONTRAST (CT PULMONARY ANGIOGRAM FOR PE) CLINICAL INFORMATION: Reason for Exam covid with hypoxia COMPARISON: CT chest 04/08/2016, CT abdomen pelvis 11/07/2020 TECHNIQUE: Prior to contrast administration, noncontrast localization images were obtained. Subsequently, multidetector volumetric imaging was performed from the thoracic inlet to below the diaphragms following the administration of 65 mL Omnipaque 350 intravenous contrast. No contrast reaction reported Sagittal, coronal, and MIP oblique sagittal reformatted images were obtained on the CT workstation, uploaded to PACS, and reviewed. This CT examination was performed using dose optimization techniques as appropriate, variously including the following: *Automated exposure control *Adjustment of mA and/or kV according to patient size (this includes techniques or standardized protocols for targeted exams where dose is matched to indication/reason for exam; i.e. extremities or head) *Use of iterative reconstruction technique Total exam dose-length product 462 mGy-cm FINDINGS: QUALITY OF STUDY/CONTRAST BOLUS: Suboptimal. PULMONARY ARTERIES: No large central or segmental pulmonary emboli. THORACIC AORTA: No aneurysm or dissection. LUNG: Diffuse multifocal groundglass infiltrates are present throughout the lungs. PLEURA: No pleural effusion or pneumothorax. MEDIASTINUM: Heart size upper limits of normal. No pericardial effusion. Small reactive mediastinal and hilar lymph nodes are present but there is no gross hilar or mediastinal lymphadenopathy. No evidence of septal bowing or right heart strain. CHEST WALL/AXILLA: No axillary or internal mammary lymphadenopathy. OSSEOUS STRUCTURES: No acute or suspicious osseous abnormality. UPPER ABDOMEN: Status post cholecystectomy No reflux of contrast into the hepatic veins to suggest elevated right heart pressures. CT/CT angio chest PE protocol IMPRESSION: 1. No evidence of pulmonary emboli. 2. Commonly reported imaging features of Covid 19 or viral pneumonia are present with multifocal diffuse groundglass infiltrates. Other processes such as influenza pneumonia or organizing pneumonia, as can be seen with drug toxicity and connective tissue disease, can cause a similar imaging pattern. VTE: negative Dictated By:ARACELI MALAGON MDSigned By:<Electronically signed by ARACELI MALAGON MD in OV>01/18/21 0035 DD/ [id number] ECG Data Attestation: I personally reviewed and interpreted this ECG as follows: Interpretation: NORMAL SINUS RHYTHM HEART RATE 87 BEATS PER MINUTE NORMAL INTERVALS NORMAL AXIS NO ACUTE ST-T CHANGE AND NO ACUTE ISCHEMIA Critical Care Time Critical Care Time Critical Care Time: Yes Total Critical Care Time: 50 Attestation: I SPENT 50 MINUTES OF CRITICAL CARE, WITH INTERVENTIONS, ASSESSMENTS, SPEAKING TO PATIENT, AND FAMILY. Discharge Plan Discharge Clinical Impression: COVID-19, Hypoxia Patient Disposition: Admitted As Inpatient
[2021-01-17 22:51] LABS: Prothrombin Time 12.3 SEC (10.8-13.0)
[2021-01-17 22:54] LABS: Partial Thromboplastin Time 31.9 SEC (24.1-38.0)
[2021-01-17 23:03] LABS: D Dimer 1383 NG/ML
[2021-01-17] MEDS: cefTRIAXone sodium 1 GM in 0.9 % Sodium Chloride 50 ML IV (23:07)
[2021-01-17 23:23] LABS: Anion Gap 18 (12-20); Blood Urea Nitrogen 30 mg/dL (9-16); Calcium 8.3 mg/dL (8.4-10.2); Carbon Dioxide 20 mmol/L (22-29); Chloride 100 mmol/L (96-108); Creatinine Clr Calc Pharmacy 40.7; Estimated Glomerular Filt Rate 36; Glucose Random 120 mg/dL (60-115); Potassium 4.8 mmol/L (3.3-5.1); Sodium 133 mmol/L (135-145)
[2021-01-17 23:26] LABS: C Reactive Protein 15.78 mg/dL (< or = 0.50)
[2021-01-17 23:32] LABS: Lactate Dehydrogenase 494 U/L (122-220)
--- NOTE | 2021-01-17 23:37 | PC.NURSE ---
Patient has two 20g IV accesses. 20g IV in Left AC, 20g IV in Left Forearm/Wrist. Both IVs patent & functional. Recollect drawn and sent for analysis. Plan for admission. lang interpreter present during interactions. COVID+, remains on nonrebreather, 92-93% on nonrebreather but denies SOB with this RN. Pt is visibly experiencing dyspnea, tachypnea, but has improved since arrival to ED. Radiology aware of patent peripheral accesses. Will continue to monitor. Hospitalist has evaluated patient. Awaiting admission bed.
--- NOTE | 2021-01-17 23:59 | PM.IMHP ---
History of Present Illness Date of Service: 01/18/21 Chief Complaint: Diarrhea 75-year-old female a past medical history of hypertension, hyperlipidemia, diabetes, diabetic neuropathy, diabetic nephropathy, coronary artery disease-multivessel disease, peripheral vascular disease diagnosed with COVID few days ago presented to the hospital with a chief complaint of diarrhea. Patient mentioned that she has been having diarrhea over the past few days but no abdominal pain. Denies any numbness tingling. Mentions occasional shortness of breath. Denies any cough. Denies any fever chills cough. Mention the her family members her COVID positive. Denies any chest pain palpitations lightheadedness dizziness. Review of all other systems is negative except mentioned above ER course: Per ER team patient noted to be dyspneic on presentation saturating 70% on room air, subsequently placed on non-rebreather with improvement oxygenation to 88-90%. Patient was not in respiratory distress. Breathing comfortably and speaking in full sentences. Lab showed creatinine of 1.4; patient was given Decadron and inhaler. Admitted to the hospital for further management. [facility] Medical History Asthma Chronic kidney disease CKD (chronic kidney disease) stage 3, GFR 30-59 ml/min Diabetes mellitus Diabetic nephropathy associated with type 2 diabetes mellitus Diabetic polyneuropathy associated with type 2 diabetes mellitus Dyslipidemia GERD (gastroesophageal reflux disease) Hypertension Infected cyst of skin custodial (current) use of insulin Morbid obesity Thalamic pain syndrome Family History Sister History of renal pelvis cancer Surgical History History of breast lump/mass excision History of cholecystectomy History of tubal ligation Social History Household Members: Spouse Housing: House Alcohol intake: current Alcohol intake frequency: holidays/special occasions only Smoking Status: Never smoker service: No Current occupational status: unemployed Gender identity: female Meds Allergies Allergy/AdvReac Type Severity Reaction Status Date / Time ibuprofen [From MOTRIN] Allergy Intermediate RASH Verified 01/18/21 02:29 oxycodone [From PERCOCET] Allergy Intermediate ITCHING Verified 01/18/21 02:29 acetaminophen [Percocet] Allergy Unknown unknown Verified 01/18/21 02:29 Motrin Allergy Unknown high blood Verified 01/18/21 02:29 pressure Active Medications: Current Medications Generic Name Dose Route Start Last Admin Trade Name Freq PRN Reason Stop Dose Admin Acetaminophen 650 mg 01/17/21 23:52 Acetaminophen 325 Mg Tablet PO Q6H PRN Pain, Mild (Pain Scale 1-3) Albuterol Sulfate 4 puff 01/17/21 23:52 Albuterol Sulfate 90 Mcg 8 Gm Inhaler INHALE Q2H PRN Shortness of Breath/Wheezing Azithromycin 500 mg 01/17/21 23:45 Azithromycin 500 Mg Tablet PO Q24H [facility] Dexamethasone 6 mg 01/18/21 09:00 Dexamethasone 6 Mg Tablet PO DAILY [facility] Enoxaparin Sodium 40 mg 01/17/21 23:45 Enoxaparin Sodium 40 Mg/0.4 Ml Syringe SUBCUT Q24H [facility] Ceftriaxone Sodium 1 gm/ 50 mls @ 100 mls/hr 01/17/21 23:45 Sodium Chloride IV Q24H [facility] Insulin Glargine 30 unit 01/18/21 21:00 Insulin Glargine,Hum.Rec.Anlog 100 Unit/Ml 10 Ml Vial SUBCUT BEDTIME [facility] Insulin Human Lispro 0 unit 01/18/21 07:30 Insulin Lispro 100 Unit/Ml 3 Ml Vial SUBCUT QIDACHS [facility] Protocol Sodium Chloride 3 ml 01/18/21 00:00 0.9 % Sodium Chloride Flush 3 Ml Syringe IVFLUSH QSHIFT [facility] Home Medications Medication Instructions Recorded Confirmed Last Taken Type amlodipine 10 mg PO DAILY 01/18/21 01/18/21 Unknown History aspirin 81 mg PO DAILY 01/18/21 01/18/21 Unknown History atorvastatin 40 mg PO BEDTIME 01/18/21 01/18/21 Unknown History carvedilol 25 mg PO Q12H 01/18/21 01/18/21 Unknown History cilostazol 100 mg PO BID 01/18/21 01/18/21 Unknown History ergocalciferol (vitamin D2) 1,250 mcg PO QWEEK 01/18/21 01/18/21 Unknown History fluconazole 150 mg PO DAILY 01/18/21 01/18/21 Unknown History furosemide 20 mg PO QAM 01/18/21 01/18/21 Unknown History gabapentin 300 mg PO BEDTIME 01/18/21 01/18/21 Unknown History hydralazine 50 mg PO TID 01/18/21 01/18/21 Unknown History insulin glargine U-300 conc 47 unit SUBCUT DAILY 01/18/21 01/18/21 Unknown History linagliptin 5 mg PO DAILY 01/18/21 01/18/21 Unknown History lisinopril 40 mg PO DAILY 01/18/21 01/18/21 Unknown History montelukast 10 mg PO BEDTIME 01/18/21 01/18/21 Unknown History sucralfate 2 g PO DAILY 01/18/21 01/18/21 Unknown History Physical Exam Vital Signs and Narrative: Vital Signs: Last Vital Signs Temp 100.2 F 01/17/21 20:50 Pulse 75 01/17/21 22:28 Resp 20 01/17/21 20:50 BP 122/54 L 01/17/21 20:50 Pulse Ox 84 L 01/17/21 20:50 Body Mass Index 45.7 Gen: Appears be in no acute distress; on supplemental oxygen; breathing comfortably, speaking in full sentences HEENT: NCAT, Moist mucosa. Pulmonary: Course breath sounds, fair air entry CVS: Normal S1-S2 Abdomen: BS+, Soft, Nontender Extremities: Warm well perfused Neuro: Alert and awake. Results Labs CBC and Chem 7: 01/25/21 05:59 01/27/21 06:03 Labs: Laboratory Results - last 24 hr 01/17/21 01/17/21 01/17/21 21:17 21:17 21:17 MCV 73.7 L MCH 24.3 L MCHC 33.0 RDW 14.7 Plt Count 307 MPV 9.6 Immature Gran % (Auto) 0.5 H Neut % (Auto) 87.4 H Lymph % (Auto) 9.0 L [place] % (Auto) 2.9 Eos % (Auto) 0.0 Baso % (Auto) 0.2 Lymph # (Auto) 0.9 L [place] # (Auto) 0.3 Eos # (Auto) 0.0 Baso # (Auto) 0.0 Abs Immat Gran (auto) 0.05 H Absolute Neuts (auto) 8.5 H Absolute Nucleated RBC 0.000 Nucleated RBC % (auto) 0.0 PT INR APTT D-Dimer Hold Blue Top SEE NOTE Anion Gap Creatinine Estim Creat Clear Calc Estimated GFR Random Glucose Lactic Acid Calcium Lactate Dehydrogenase Troponin I High Sens 25.3 H D C-Reactive Protein B-Natriuretic Peptide 134 H COVID-19 ([facility]AN[facility]) COVID-19 Clin Com 01/17/21 01/17/21 01/17/21 21:56 22:32 22:32 MCV MCH MCHC RDW Plt Count MPV Immature Gran % (Auto) Neut % (Auto) Lymph % (Auto) [place] % (Auto) Eos % (Auto) Baso % (Auto) Lymph # (Auto) [place] # (Auto) Eos # (Auto) Baso # (Auto) Abs Immat Gran (auto) Absolute Neuts (auto) Absolute Nucleated RBC Nucleated RBC % (auto) PT INR APTT D-Dimer Hold Blue Top Anion Gap 18 Creatinine 1.42 H Estim Creat Clear Calc 40.7 Estimated GFR 36 Random Glucose 120 H Lactic Acid 1.0 Calcium 8.3 L D Lactate Dehydrogenase 494 H Troponin I High Sens C-Reactive Protein 15.78 H B-Natriuretic Peptide COVID-19 ([facility]ANCA) Positive A COVID-19 Clin Com See Note 01/17/21 22:32 MCV MCH MCHC RDW Plt Count MPV Immature Gran % (Auto) Neut % (Auto) Lymph % (Auto) [place] % (Auto) Eos % (Auto) Baso % (Auto) Lymph # (Auto) [place] # (Auto) Eos # (Auto) Baso # (Auto) Abs Immat Gran (auto) Absolute Neuts (auto) Absolute Nucleated RBC Nucleated RBC % (auto) PT 12.3 INR 1.0 APTT 31.9 D-Dimer 1383 Hold Blue Top Anion Gap Creatinine Estim Creat Clear Calc Estimated GFR Random Glucose Lactic Acid Calcium Lactate Dehydrogenase Troponin I High Sens C-Reactive Protein B-Natriuretic Peptide COVID-19 ([facility]ANCA) COVID-19 Clin Com Imaging Radiologist's Impressions: Impressions Chest X-Ray 01/17/21 21:09 IMPRESSION: Commonly reported imaging features of Covid 19 or viral pneumonia are present with extensive patchy groundglass infiltrates throughout both. Other processes such as influenza pneumonia or organizing pneumonia, as can be seen with drug toxicity and connective tissue disease, can cause a similar imaging pattern. Assessment and Plan (1) COVID-19: Status: Acute 75-year-old female with a past medical history of hypertension, hyperlipidemia, diabetes, chronic kidney disease, CAD with multivessel disease presented to the hospital with a chief complaint of shortness of breath ER patient was recently diagnosed COVID-19 positive. Chest x-ray showed COVID-19 pneumonia. Admitted for further management. COVID-19 pneumonia: Continue Decadron, ceftriaxone, azithromycin. Id consult for further recommendations. Acute hypoxic respiratory failure: In the setting of COVID-19 pneumonia. Supplemental oxygen. Patient will placed on high-flow. Albuterol inhaler p.r.n.. CT chest pending Diabetes: Will keep the patient on Lantus 30 units and insulin sliding scale. Hypertension: Continue home medications. For all other chronic conditions, home medications will be continued DVT prophylaxis: Lovenox Code status: Full code
[2021-01-18] VITALS (8 sets, daily range): BP systolic 114–131; BP diastolic 43–63; PULSE 71–82; RESP 18–24; TEMP 36.4–37.1; O2SAT 90–94; BMI 37.8
[2021-01-18] MEDS: iohexoL 350 MG/ML 100 ML INFUS..BTL 65 ML IV (00:16)
[2021-01-18] MEDS: Enoxaparin Sodium 40 MG/0.4 ML SYRINGE SUBCUT ×2 (00:18→20:05)
[2021-01-18] MEDS: Azithromycin 500 MG in 0.9 % Sodium Chloride 250 ML 125 MG IV (00:18)
[2021-01-18] MEDS: 0.9 % Sodium Chloride Flush 3 ML SYRINGE IVFLUSH ×4 (00:19→19:51)
--- NOTE | 2021-01-18 02:16 | PC.NURSE ---
Patient placed on bedpan at this time. Urine specimen being collected and sent to lab for analysis. DIEGO Garcias at bedside assisting patient. Pt remains on nonrebreather, tolerating well. Awaiting admission bed assignment. Will continue to monitor.
[2021-01-18 02:35] LABS: Appearance Urine CLEAR; Color Urine YELLOW; Glucose Urine UA NEG (NEG); Leukocyte Esterase Urine NEG (NEG); Nitrite Urine NEG (NEG); PH 5.5 (5.0-8.0); Specific Gravity - Urine 1.015 (1.005-1.025); Urine Blood NEG (NEG); Urine Ketones NEG (NEG); Urine Protein 2+ MG/DL (NEG-TRACE)
[2021-01-18 02:41] LABS: Amorphous Sediment Urine 1+ /LPF; Bacteria Urine 1+ /LPF; RBC Urine 0 /HPF (0); Squamous Epithelial Cell Urine 2+ /LPF; WBC Urine 0-2 /HPF (0-4)
[2021-01-18 07:30] LABS: MANUAL DIFF FLAG NO
[2021-01-18 07:32] LABS: Hematocrit 32.4 % (37-47); Imm Gran Abs Auto 0.03 X10*3/uL (0.00-0.03); Imm Gran Pct Auto 0.6 % (0.0-0.4); Lymphocytes Absolute Auto 0.8 X10*3/uL (1.2-4.9); Lymphocytes Percent Auto 15.1 % (20-40); Mean Corpuscular Hemoglobin 25.1 pg (27.0-33.0); Mean Corpuscular Volume 73.8 fL (80-98); Mean Platelet Volume 9.5 fL (9.4-12.3); Monocytes Absolute Auto 0.1 X10*3/uL (0.1-1.2); Monocytes Percent Auto 2.4 % (2-11); Neutrophils Absolute Auto 4.2 X10*3/uL (2.0-8.3); Neutrophils Percent Auto 81.9 % (45-73); Platelet Count 285 X10*3/uL (160-400); Red Blood Count 4.39 X10*6/uL (4.20-5.50); Red Cell Distribution Width 14.6 % (11.0-16.0); White Blood Count 5.1 X10*3/uL (4.8-10.8)
[2021-01-18 07:49] LABS: Glucose, Whole Blood 140 mg/dL (60-115)
[2021-01-18 07:57] LABS: Anion Gap 17 (12-20); Blood Urea Nitrogen 33 mg/dL (9-16); Calcium 8.1 mg/dL (8.4-10.2); Carbon Dioxide 19 mmol/L (22-29); Chloride 102 mmol/L (96-108); Creatinine Clr Calc Pharmacy 34.9; Estimated Glomerular Filt Rate 30; Glucose Random 157 mg/dL (60-115); Potassium 4.6 mmol/L (3.3-5.1); Sodium 133 mmol/L (135-145)
[2021-01-18] MEDS: dexAMETHasone 6 MG TABLET PO (08:39)
--- NOTE | 2021-01-18 09:06 | PC.NURSE ---
pt assisted to the comode. desat to mid 80s on venti. pt ate 100% of breakfast. medicated per emar. resting comfortably in bed. pt now 90% on venti at 14l
[2021-01-18 10:25] LABS: Estimated Average Glucose 180 mg/dL; Hemoglobin A1c % 7.9 %
[2021-01-18 10:27] LABS: Alanine Aminotransferase 28 U/L (0-31); Albumin Level 3.1 g/dL (3.5-5.0); Alkaline Phosphatase 79 U/L (39-117); Aspartate Amino Transferase 48 U/L (5-31); Bilirubin Direct 0.4 mg/dL (0.0-0.5); Bilirubin Total 0.8 mg/dL (0.0-1.0); Total Protein 6.4 g/dL (6.5-8.0)
[2021-01-18 10:36] LABS: Troponin-I High Sensitivity 21.8 ng/L (<3.5-17.0)
[2021-01-18 10:45] LABS: Procalcitonin 0.36 ng/mL
--- NOTE | 2021-01-18 11:31 | MHC.CM.ED ---
CM spoke with Estrellita Pham by phone since patient speaks lithuanian. Dtr reports patient requires some assistance with care, does have [facility] [employer] services with [facility], amb with a cane and lives with her . Dtr Vero lives on 2nd floor and is able to assist patient when needed. Patient does have a HCP, copy requested. Discussed discharge plan, home with resumption of [employer] services. Dtr will provide transport. CM will continue to follow patient for discharge needs. IMM addressed and mailed to Estrellita Pham.
[2021-01-18 13:19] LABS: Glucose, Whole Blood 232 mg/dL (60-115)
[2021-01-18] MEDS: Insulin Lispro 100 UNIT/ML 3 ML VIAL SUBCUT ×2 (13:24→20:05)
--- NOTE | 2021-01-18 13:35 | PC.NURSE ---
crystal mounter at bedside- pt sitting up eating lunch, pt reports diarrhea after meals. states she spoke with hospitalist about it. medicated per emar. reports she has more meds. this rn to call pharmacy because med rec is completed. pt denied having any questions.
--- NOTE | 2021-01-18 16:00 | HO.PM.IMPN ---
Subjective Subjective Date of Service: 01/18/21 Interval History: C/o dyspnea but no cough. Has been ill since 01/10/21. tested positive 01/04/21 and is also getting admitted from the ED with COVID-19 pneumonia/hypoxia. Pt was hypoxic on Ventimask at 55% fiO2 and was transitioned to HFNC. No chest pain. Physical Exam Vital Signs: Vital Signs: Last Vital Signs Temp 98.8 F 01/18/21 00:00 Pulse 72 01/18/21 12:00 Resp 18 01/18/21 12:00 BP 114/43 L 01/18/21 00:00 Pulse Ox 91 L 01/18/21 12:00 Body Mass Index 45.7 Gen: short of breath HEENT: sclera anicteric, moist mucus membranes Neck: supple Lungs: mild respiratory distress, auscultation deferred due to COVID-19 Heart: normal peripheral pulses Abd: soft, obese, non-tender, non-distended Ext: no cyanosis, clubbing, or edema Skin: warm/well-perfused Neuro: alert and oriented x3, no focal findings Psych: appropriate affect Objective Data Current Medications Generic Name Dose Route Start Last Admin Trade Name Freq PRN Reason Stop Dose Admin Acetaminophen 650 mg 01/17/21 23:52 Acetaminophen 325 Mg Tablet PO Q6H PRN Pain, Mild (Pain Scale 1-3) Albuterol Sulfate 4 puff 01/17/21 23:52 Albuterol Sulfate 90 Mcg 8 Gm Inhaler INHALE Q2H PRN Shortness of Breath/Wheezing Aspirin 81 mg 01/19/21 09:00 Aspirin Enteric Coated 81 Mg Tablet. PO DAILY [facility] Atorvastatin Calcium 40 mg 01/18/21 21:00 Atorvastatin Calcium 40 Mg Tablet PO BEDTIME [facility] Carvedilol 25 mg 01/18/21 21:00 Carvedilol 25 Mg Tablet PO BID [facility] Protocol Cilostazol 100 mg 01/18/21 21:00 Cilostazol 100 Mg Tablet PO BID [facility] Dexamethasone 6 mg 01/18/21 09:00 01/18/21 08:39 Dexamethasone 6 Mg Tablet PO 6 mg DAILY [facility] Administration Enoxaparin Sodium 40 mg 01/17/21 22:00 01/18/21 00:18 Enoxaparin Sodium 40 Mg/0.4 Ml Syringe SUBCUT 40 mg Q24H [facility] Administration Ergocalciferol 1,250 mcg 01/19/21 10:00 Ergocalciferol (Vitamin D2) 1,250 Mcg Capsule PO [place]@1000 [facility] Fluconazole 150 mg 01/19/21 09:00 Fluconazole 150 Mg Tablet PO DAILY [facility] Furosemide 20 mg 01/19/21 09:00 Furosemide 20 Mg Tablet PO DAILY [facility] Protocol Gabapentin 300 mg 01/18/21 21:00 Gabapentin 300 Mg Capsule PO BEDTIME [facility] Hydralazine HCl 50 mg 01/18/21 15:00 Hydralazine Hcl 50 Mg Tablet PO TID [facility] Protocol Insulin Glargine 30 unit 01/18/21 21:00 Insulin Glargine,Hum.Rec.Anlog 100 Unit/Ml 10 Ml Vial SUBCUT BEDTIME [facility] Insulin Human Lispro 0 unit 01/18/21 07:30 01/18/21 13:24 Insulin Lispro 100 Unit/Ml 3 Ml Vial SUBCUT 4 unit QIDACHS [facility] Administration Protocol Lisinopril 40 mg 01/19/21 09:00 Lisinopril 40 Mg Tablet PO DAILY [facility] Protocol Montelukast Sodium 10 mg 01/18/21 21:00 Montelukast Sodium 10 Mg Tablet PO BEDTIME [facility] Sodium Chloride 3 ml 01/18/21 00:00 01/18/21 07:49 0.9 % Sodium Chloride Flush 3 Ml Syringe IVFLUSH 3 ml QSHIFT [facility] Administration Sucralfate 2 gm 01/19/21 09:00 Sucralfate 1 Gm Tablet PO DAILY [facility] Labs CBC & Chem 7: 01/18/21 07:17 01/18/21 07:17 Labs: Laboratory Results - last 24 hr 01/17/21 01/17/21 01/17/21 21:17 21:17 21:17 WBC 9.8 RBC 4.90 Hgb 11.9 L Hct 36.1 L MCV 73.7 L MCH 24.3 L MCHC 33.0 RDW 14.7 Plt Count 307 MPV 9.6 Immature Gran % (Auto) 0.5 H Neut % (Auto) 87.4 H Lymph % (Auto) 9.0 L [place] % (Auto) 2.9 Eos % (Auto) 0.0 Baso % (Auto) 0.2 Lymph # (Auto) 0.9 L [place] # (Auto) 0.3 Eos # (Auto) 0.0 Baso # (Auto) 0.0 Abs Immat Gran (auto) 0.05 H Absolute Neuts (auto) 8.5 H Absolute Nucleated RBC 0.000 Nucleated RBC % (auto) 0.0 PT INR APTT D-Dimer Hold Blue Top SEE NOTE Sodium Potassium Chloride Carbon Dioxide Anion Gap BUN Creatinine Estim Creat Clear Calc Estimated GFR POC Glucose Random Glucose Estimat Average Glucose Hemoglobin A1c % Lactic Acid Calcium Total Bilirubin Direct Bilirubin AST ALT Alkaline Phosphatase Lactate Dehydrogenase Troponin I High Sens 25.3 H D C-Reactive Protein B-Natriuretic Peptide 134 H Total Protein Albumin Procalcitonin Urine Color Urine Appearance Urine pH Ur Specific Trevor Urine Protein Urine Glucose (UA) Urine Ketones Urine Blood Urine Nitrite Ur Leukocyte Esterase Urine RBC Urine WBC Ur Squamous Epith Cells Amorphous Sediment Urine Bacteria COVID-19 (FRANCA) [employer] 01/17/21 01/17/21 01/17/21 21:56 22:32 22:32 WBC RBC Hgb Hct MCV MCH MCHC RDW Plt Count MPV Immature Gran % (Auto) Neut % (Auto) Lymph % (Auto) [place] % (Auto) Eos % (Auto) Baso % (Auto) Lymph # (Auto) [place] # (Auto) Eos # (Auto) Baso # (Auto) Abs Immat Gran (auto) Absolute Neuts (auto) Absolute Nucleated RBC Nucleated RBC % (auto) PT INR APTT D-Dimer Hold Blue Top Sodium 133 L Potassium 4.8 Chloride 100 Carbon Dioxide 20 L Anion Gap 18 BUN 30 H Creatinine 1.42 H Estim Creat Clear Calc 40.7 Estimated GFR 36 POC Glucose Random Glucose 120 H Estimat Average Glucose Hemoglobin A1c % Lactic Acid 1.0 Calcium 8.3 L D Total Bilirubin Direct Bilirubin AST ALT Alkaline Phosphatase Lactate Dehydrogenase 494 H Troponin I High Sens C-Reactive Protein 15.78 H B-Natriuretic Peptide Total Protein Albumin Procalcitonin Urine Color Urine Appearance Urine pH Ur Specific Trevor Urine Protein Urine Glucose (UA) Urine Ketones Urine Blood Urine Nitrite Ur Leukocyte Esterase Urine RBC Urine WBC Ur Squamous Epith Cells Amorphous Sediment Urine Bacteria COVID-19 (FRANCA) Positive A COVID-19 [employer] See Note 01/17/21 01/18/21 01/18/21 22:32 02:19 07:17 WBC 5.1 RBC 4.39 Hgb 11.0 L Hct 32.4 L MCV 73.8 L MCH 25.1 L MCHC 34.0 RDW 14.6 Plt Count 285 MPV 9.5 Immature Gran % (Auto) 0.6 H Neut % (Auto) 81.9 H Lymph % (Auto) 15.1 L [place] % (Auto) 2.4 Eos % (Auto) 0.0 Baso % (Auto) 0.0 Lymph # (Auto) 0.8 L [place] # (Auto) 0.1 Eos # (Auto) 0.0 Baso # (Auto) 0.0 Abs Immat Gran (auto) 0.03 Absolute Neuts (auto) 4.2 Absolute Nucleated RBC 0.000 Nucleated RBC % (auto) 0.0 PT 12.3 INR 1.0 APTT 31.9 D-Dimer 1383 Hold Blue Top Sodium Potassium Chloride Carbon Dioxide Anion Gap BUN Creatinine Estim Creat Clear Calc Estimated GFR POC Glucose Random Glucose Estimat Average Glucose Hemoglobin A1c % Lactic Acid Calcium Total Bilirubin Direct Bilirubin AST ALT Alkaline Phosphatase Lactate Dehydrogenase Troponin I High Sens C-Reactive Protein B-Natriuretic Peptide Total Protein Albumin Procalcitonin Urine Color YELLOW Urine Appearance CLEAR Urine pH 5.5 Ur Specific Trevor 1.015 Urine Protein 2+ H Urine Glucose (UA) NEG Urine Ketones NEG Urine Blood NEG Urine Nitrite NEG Ur Leukocyte Esterase NEG Urine RBC 0 Urine WBC 0-2 Ur Squamous Epith Cells 2+ Amorphous Sediment 1+ Urine Bacteria 1+ COVID-19 (FRANCA) COVID-19 Clin Com 01/18/21 01/18/21 01/18/21 07:17 07:41 09:44 WBC RBC Hgb Hct MCV MCH MCHC RDW Plt Count MPV Immature Gran % (Auto) Neut % (Auto) Lymph % (Auto) [place] % (Auto) Eos % (Auto) Baso % (Auto) Lymph # (Auto) [place] # (Auto) Eos # (Auto) Baso # (Auto) Abs Immat Gran (auto) Absolute Neuts (auto) Absolute Nucleated RBC Nucleated RBC % (auto) PT INR APTT D-Dimer Hold Blue Top Sodium 133 L Potassium 4.6 Chloride 102 Carbon Dioxide 19 L Anion Gap 17 BUN 33 H Creatinine 1.66 H Estim Creat Clear Calc 34.9 Estimated GFR 30 POC Glucose 140 H Random Glucose 157 H Estimat Average Glucose Hemoglobin A1c % Lactic Acid Calcium 8.1 L Total Bilirubin Direct Bilirubin AST ALT Alkaline Phosphatase Lactate Dehydrogenase Troponin I High Sens 21.8 H C-Reactive Protein B-Natriuretic Peptide Total Protein Albumin Procalcitonin Urine Color Urine Appearance Urine pH Ur Specific Trevor Urine Protein Urine Glucose (UA) Urine Ketones Urine Blood Urine Nitrite Ur Leukocyte Esterase Urine RBC Urine WBC Ur Squamous Epith Cells Amorphous Sediment Urine Bacteria COVID-19 (FRANCA) COVID-19 Clin Com 01/18/21 01/18/21 01/18/21 09:44 09:44 09:44 WBC RBC Hgb Hct MCV MCH MCHC RDW Plt Count MPV Immature Gran % (Auto) Neut % (Auto) Lymph % (Auto) [place] % (Auto) Eos % (Auto) Baso % (Auto) Lymph # (Auto) [place] # (Auto) Eos # (Auto) Baso # (Auto) Abs Immat Gran (auto) Absolute Neuts (auto) Absolute Nucleated RBC Nucleated RBC % (auto) PT INR APTT D-Dimer Hold Blue Top Sodium Potassium Chloride Carbon Dioxide Anion Gap BUN Creatinine Estim Creat Clear Calc Estimated GFR POC Glucose Random Glucose Estimat Average Glucose 180 Hemoglobin A1c % 7.9 Lactic Acid Calcium Total Bilirubin 0.8 Direct Bilirubin 0.4 AST 48 H D ALT 28 Alkaline Phosphatase 79 D Lactate Dehydrogenase Troponin I High Sens C-Reactive Protein B-Natriuretic Peptide Total Protein 6.4 L Albumin 3.1 L Procalcitonin 0.36 Urine Color Urine Appearance Urine pH Ur Specific Trevor Urine Protein Urine Glucose (UA) Urine Ketones Urine Blood Urine Nitrite Ur Leukocyte Esterase Urine RBC Urine WBC Ur Squamous Epith Cells Amorphous Sediment Urine Bacteria COVID-19 (FRANCA) COVID-19 [employer] 01/18/21 13:00 WBC RBC Hgb Hct MCV MCH MCHC RDW Plt Count MPV Immature Gran % (Auto) Neut % (Auto) Lymph % (Auto) [place] % (Auto) Eos % (Auto) Baso % (Auto) Lymph # (Auto) [place] # (Auto) Eos # (Auto) Baso # (Auto) Abs Immat Gran (auto) Absolute Neuts (auto) Absolute Nucleated RBC Nucleated RBC % (auto) PT INR APTT D-Dimer Hold Blue Top Sodium Potassium Chloride Carbon Dioxide Anion Gap BUN Creatinine Estim Creat Clear Calc Estimated GFR POC Glucose 232 H Random Glucose Estimat Average Glucose Hemoglobin A1c % Lactic Acid Calcium Total Bilirubin Direct Bilirubin AST ALT Alkaline Phosphatase Lactate Dehydrogenase Troponin I High Sens C-Reactive Protein B-Natriuretic Peptide Total Protein Albumin Procalcitonin Urine Color Urine Appearance Urine pH Ur Specific Trevor Urine Protein Urine Glucose (UA) Urine Ketones Urine Blood Urine Nitrite Ur Leukocyte Esterase Urine RBC Urine WBC Ur Squamous Epith Cells Amorphous Sediment Urine Bacteria COVID-19 ([facility]ANCA) COVID-19 Clin Com Impressions Chest X-Ray 01/17/21 21:09 IMPRESSION: Commonly reported imaging features of Covid 19 or viral pneumonia are present with extensive patchy groundglass infiltrates throughout both. Other processes such as influenza pneumonia or organizing pneumonia, as can be seen with drug toxicity and connective tissue disease, can cause a similar imaging pattern. Chest CTA 01/17/21 21:54 IMPRESSION: 1. No evidence of pulmonary emboli. 2. Commonly reported imaging features of Covid 19 or viral pneumonia are present with multifocal diffuse groundglass infiltrates. Other processes such as influenza pneumonia or organizing pneumonia, as can be seen with drug toxicity and connective tissue disease, can cause a similar imaging pattern. VTE: negative Assessment and Plan (1) COVID-19: Status: Acute (2) Hypoxia: Status: Acute Assessment and Plan: hospital d#2 75yo F with DM2 with neuropathy and nephropathy, multivessel CAD, peripheral vascular disease, HTN, HLD presenting on the ninth day of symptoms from COVID-19 pneumonia admitted for hypoxia # acute hypoxic respiratory failure - HFNC, wean as tolerated, encourage awake proning # COVID-19 pneumonia - dexamethasone d#11/13, ID consult re: remdesivir. PCT low; d/c ABX, doubt bacterial superinfection # ARLEY/CKD3 - hold lisinopril + furosemide # asthma - continue montelukast, prn albuterol. Dexamethasone as above # HTN - continue hydralazine, carvedilol; hold lisinopril + furosemide as above # CAD # PVD - continue ASA, statin, carvedilol, cilostazol; hold lisinopril # neuropathy - continue gabapentin # DM2, A1c 7.9 - basal/bolus insulin # VTE ppx - LMWH
[2021-01-18] MEDS: hydrALAZINE HCl 50 MG TABLET PO ×2 (16:10→19:51)
--- NOTE | 2021-01-18 17:07 | PC.NURSE ---
called for report- faviola to call back
[2021-01-18] MEDS: Remdesivir 200 MG in 0.9 % Sodium Chloride 210 ML 105 MG IV (17:44)
--- NOTE | 2021-01-18 17:48 | PC.NURSE ---
pt medicated per emar, awaiting transfer to [facility] [place]- report given to faviola arias
[2021-01-18] MEDS: Atorvastatin Calcium 40 MG TABLET PO (19:50)
[2021-01-18] MEDS: carvediloL 25 MG TABLET PO (19:50)
[2021-01-18] MEDS: Montelukast Sodium 10 MG TABLET PO (19:50)
[2021-01-18] MEDS: cilostazoL 100 MG TABLET PO (19:51)
[2021-01-18] MEDS: Gabapentin 300 MG CAPSULE PO (19:51)
[2021-01-18 20:02] LABS: Glucose, Whole Blood 275 mg/dL (60-115)
[2021-01-18] MEDS: Insulin Glargine,Hum.rec.anlog 100 UNIT/ML 10 ML VIAL 30 UNIT SUBCUT (20:05)
--- NOTE | 2021-01-18 22:57 | W.PM.IDCN ---
History of Present Illness Data of Consult Service Date: 01/18/21 Requesting physician: Shanta Poole Primary Care Provider: Marycarmen Quijano MD HPI Reason for consult: COVID She presents with symptoms 10 days cough and shortness of breath She has no monoclonal antibodies She has fever and chills PMFSH Past Medical History Medical History Asthma Chronic kidney disease CKD (chronic kidney disease) stage 3, GFR 30-59 ml/min Diabetes mellitus Diabetic nephropathy associated with type 2 diabetes mellitus Diabetic polyneuropathy associated with type 2 diabetes mellitus Dyslipidemia GERD (gastroesophageal reflux disease) Hypertension Infected cyst of skin 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 Morbid obesity Thalamic pain syndrome Family History Family History Sister History of renal pelvis cancer Surgical History Surgical History History of breast lump/mass excision History of cholecystectomy History of tubal ligation Social History Social History Household Members: Spouse Housing: House Do you presently have visiting nurse or other home services: 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 If so, by whom?: No Do you feel safe in your current relationship?: Yes Is there a partner from a previous relationship who is making you feel unsafe now?: No Are you made to feel afraid or neglected: No Advance Directives: No Advance Directives Information Provided: No Do you have thoughts of harming others: None Do you have a plan to hurt others: No Plan Recently lost weight without trying: No service: No Current occupational status: unemployed Gender identity: female Meds Allergies Allergy/AdvReac Type Severity Reaction Status Date / Time ibuprofen [From MOTRIN] Allergy Intermediate RASH Verified 01/18/21 02:29 oxycodone [From PERCOCET] Allergy Intermediate ITCHING Verified 01/18/21 02:29 acetaminophen [Percocet] Allergy Unknown unknown Verified 01/18/21 02:29 Motrin Allergy Unknown high blood Verified 01/18/21 02:29 pressure Active Medications: Current Medications Generic Name Dose Route Start Last Admin Trade Name Shireen PRN Reason Stop Dose Admin Acetaminophen 650 mg 01/17/21 23:52 Acetaminophen 325 Mg Tablet PO Q6H PRN Pain, Mild (Pain Scale 1-3) Albuterol Sulfate 4 puff 01/17/21 23:52 Albuterol Sulfate 90 Mcg 8 Gm Inhaler INHALE Q2H PRN Shortness of Breath/Wheezing Aspirin 81 mg 01/19/21 09:00 Aspirin Enteric Coated 81 Mg Tablet.Dr PO DAILY HANANE Atorvastatin Calcium 40 mg 01/18/21 21:00 01/18/21 19:50 Atorvastatin Calcium 40 Mg Tablet PO 40 mg BEDTIME [facility]NANE Administration Carvedilol 25 mg 01/18/21 21:00 01/18/21 19:50 Carvedilol 25 Mg Tablet PO 25 mg BID HANANE Administration Protocol Cilostazol 100 mg 01/18/21 21:00 01/18/21 19:51 Cilostazol 100 Mg Tablet PO 100 mg BID HANAEN Administration Dexamethasone 6 mg 01/18/21 09:00 01/18/21 08:39 Dexamethasone 6 Mg Tablet PO 6 mg DAILY [facility]NANE Administration Enoxaparin Sodium 40 mg 01/17/21 22:00 01/18/21 20:05 Enoxaparin Sodium 40 Mg/0.4 Ml Syringe SUBCUT 40 mg Q24H [facility]NANE Administration Ergocalciferol 1,250 mcg 01/19/21 10:00 Ergocalciferol (Vitamin D2) 1,250 Mcg Capsule PO Dubon@1000 [facility] Furosemide 20 mg 01/19/21 09:00 Furosemide 20 Mg Tablet PO DAILY [facility] Protocol Gabapentin 300 mg 01/18/21 21:00 01/18/21 19:51 Gabapentin 300 Mg Capsule PO 300 mg BEDTIME [facility]NANE Administration Hydralazine HCl 50 mg 01/18/21 15:00 01/18/21 19:51 Hydralazine Hcl 50 Mg Tablet PO 50 mg TID HANANE Administration Protocol Remdesivir 100 mg/ Sodium 230 mls @ 115 mls/hr 01/19/21 18:00 Chloride IV 01/22/21 19:59 Q24H [facility] Insulin Glargine 30 unit 01/18/21 21:00 01/18/21 20:05 Insulin Glargine,Hum.Rec.Anlog 100 Unit/Ml 10 Ml Vial SUBCUT 30 unit BEDTIME [facility] Administration Insulin Human Lispro 0 unit 01/18/21 07:30 01/18/21 20:05 Insulin Lispro 100 Unit/Ml 3 Ml Vial SUBCUT 6 unit QIDACHS [facility] Administration Protocol Lisinopril 40 mg 01/19/21 09:00 Lisinopril 40 Mg Tablet PO DAILY [facility] Protocol Montelukast Sodium 10 mg 01/18/21 21:00 01/18/21 19:50 Montelukast Sodium 10 Mg Tablet PO 10 mg BEDTIME [facility] Administration Sodium Chloride 3 ml 01/18/21 00:00 01/18/21 19:51 0.9 % Sodium Chloride Flush 3 Ml Syringe IVFLUSH 3 ml QSHIFT [facility] Administration Sucralfate 2 gm 01/19/21 09:00 Sucralfate 1 Gm Tablet PO DAILY [facility] Home Medications Medication Instructions Recorded Confirmed Last Taken Type amlodipine 10 mg PO DAILY 01/18/21 01/18/21 Unknown History aspirin 81 mg PO DAILY 01/18/21 01/18/21 Unknown History atorvastatin 40 mg PO BEDTIME 01/18/21 01/18/21 Unknown History carvedilol 25 mg PO Q12H 01/18/21 01/18/21 Unknown History cilostazol 100 mg PO BID 01/18/21 01/18/21 Unknown History ergocalciferol (vitamin D2) 1,250 mcg PO QWEEK 01/18/21 01/18/21 Unknown History fluconazole 150 mg PO DAILY 01/18/21 01/18/21 Unknown History furosemide 20 mg PO QAM 01/18/21 01/18/21 Unknown History gabapentin 300 mg PO BEDTIME 01/18/21 01/18/21 Unknown History hydralazine 50 mg PO TID 01/18/21 01/18/21 Unknown History insulin glargine U-300 conc 47 unit SUBCUT DAILY 01/18/21 01/18/21 Unknown History linagliptin 5 mg PO DAILY 01/18/21 01/18/21 Unknown History lisinopril 40 mg PO DAILY 01/18/21 01/18/21 Unknown History montelukast 10 mg PO BEDTIME 01/18/21 01/18/21 Unknown History sucralfate 2 g PO DAILY 01/18/21 01/18/21 Unknown History Physical Exam Vital Signs: Vital Signs: Last Vital Signs Temp 97.5 F 01/18/21 19:03 Pulse 78 01/18/21 19:50 Resp 18 01/18/21 19:03 BP 131/63 01/18/21 19:51 Pulse Ox 90 L 01/18/21 19:03 Body Mass Index 37.8 Const: General: cooperative HENMT: Head: Yes normal to inspection Mouth: Normal oral and palatal mucosa present Resp: Effort & Inspection: able to speak in complete sentences Cardio: Rate: regular rate Rhythm: regular rhythm GI: Palpation (GI): Soft to palpation and nontender Skin: General skin exam: no rashes or lesions noted Results Labs CBC & Chem 7: 01/18/21 07:17 01/18/21 07:17 Labs: Short CBC 01/18/21 Range/Units 07:17 WBC 5.1 (4.8-10.8) X10*3/uL Hgb 11.0 L (12.0-16.0) g/dl Hct 32.4 L (37-47) % Plt Count 285 (160-400) X10*3/uL BMP 01/17/21 01/18/21 22:32 07:17 Sodium 133 L 133 L Potassium 4.8 4.6 Chloride 100 102 Carbon Dioxide 20 L 19 L BUN 30 H 33 H Creatinine 1.42 H 1.66 H Calcium 8.3 L D 8.1 L Liver Function 01/18/21 Range/Units 09:44 Total Bilirubin 0.8 (0.0-1.0) mg/dL Direct Bilirubin 0.4 (0.0-0.5) mg/dL AST 48 H D (5-31) U/L ALT 28 (0-31) U/L Alkaline Phosphatase 79 D (39-117) U/L Albumin 3.1 L (3.5-5.0) g/dL Urine 01/18/21 Range/Units 02:19 Urine Color YELLOW Urine Appearance CLEAR Urine pH 5.5 (5.0-8.0) Ur Specific [place] 1.015 (1.005-1.025) Urine Protein 2+ H (NEG-TRACE) MG/DL Urine Glucose (UA) NEG (NEG) MG/DL Assessment and Plan (1) COVID-19: Problem details: She has oxygen demands unremarkable liver and borderline kidney testing Status: Acute Remdesivir oxygen per protocol Dexamethaone
[2021-01-19] VITALS (13 sets, daily range): BP systolic 103–131; BP diastolic 42–67; PULSE 64–74; RESP 18–20; TEMP 36–36.5; O2SAT 91–93
[2021-01-19 06:37] LABS: MANUAL DIFF FLAG NO
[2021-01-19 07:05] LABS: Basophils Percent Auto 0.1 % (0-2); Hematocrit 31.2 % (37-47); Hemoglobin 10.2 g/dl (12.0-16.0); Imm Gran Abs Auto 0.07 X10*3/uL (0.00-0.03); Imm Gran Pct Auto 0.5 % (0.0-0.4); Lymphocytes Absolute Auto 0.8 X10*3/uL (1.2-4.9); Lymphocytes Percent Auto 5.7 % (20-40); Mean Corpuscular HGB Conc 32.7 g/dl (31.0-35.0); Mean Corpuscular Hemoglobin 24.2 pg (27.0-33.0); Mean Corpuscular Volume 73.9 fL (80-98); Mean Platelet Volume 9.6 fL (9.4-12.3); Monocytes Absolute Auto 0.6 X10*3/uL (0.1-1.2); Monocytes Percent Auto 3.9 % (2-11); Neutrophils Absolute Auto 12.8 X10*3/uL (2.0-8.3); Neutrophils Percent Auto 89.8 % (45-73); Platelet Count 341 X10*3/uL (160-400); Red Blood Count 4.22 X10*6/uL (4.20-5.50); Red Cell Distribution Width 14.6 % (11.0-16.0); White Blood Count 14.3 X10*3/uL (4.8-10.8)
[2021-01-19 07:15] LABS: Glucose, Whole Blood 260 mg/dL (60-115)
[2021-01-19 07:22] LABS: Anion Gap 19 (12-20); Blood Urea Nitrogen 52 mg/dL (9-16); Carbon Dioxide 18 mmol/L (22-29); Chloride 100 mmol/L (96-108); Creatinine Clr Calc Pharmacy 20.7; Estimated Glomerular Filt Rate 19; Glucose Random 278 mg/dL (60-115); Potassium 4.5 mmol/L (3.3-5.1); Sodium 132 mmol/L (135-145)
[2021-01-19 07:27] LABS: D Dimer 799 NG/ML
[2021-01-19 07:33] LABS: Ferritin 347 ng/mL (10-250)
[2021-01-19] MEDS: Sucralfate 1 GM TABLET 2 GM PO (07:52)
[2021-01-19] MEDS: dexAMETHasone 6 MG TABLET PO (07:53)
[2021-01-19] MEDS: Aspirin Enteric Coated 81 MG TABLET.DR PO (07:53)
[2021-01-19] MEDS: Furosemide 20 MG TABLET PO (07:54)
[2021-01-19] MEDS: cilostazoL 100 MG TABLET PO ×2 (07:54→20:40)
[2021-01-19] MEDS: Insulin Lispro 100 UNIT/ML 3 ML VIAL SUBCUT ×3 (07:54→16:53)
[2021-01-19] MEDS: 0.9 % Sodium Chloride Flush 3 ML SYRINGE IVFLUSH ×4 (07:58→22:01)
[2021-01-19] MEDS: carvediloL 25 MG TABLET PO ×2 (08:40→20:41)
[2021-01-19] MEDS: lisinopriL 40 MG TABLET PO (08:41)
[2021-01-19 11:46] LABS: Glucose, Whole Blood 261 mg/dL (60-115)
[2021-01-19] MEDS: Ergocalciferol (Vitamin D2) 1,250 MCG CAPSULE 1250 MCG PO (12:19)
--- NOTE | 2021-01-19 15:21 | HO.PM.IMPN ---
Subjective Subjective Date of Service: 01/19/21 Interval History: history in [place] from patient dyspnea improved no fever on Venti mask with fiO2 55% is also admitted but boarding in ED bed 2 Physical Exam Vital Signs: Vital Signs: Last Vital Signs Temp 96.8 F 01/19/21 15:10 Pulse 66 01/19/21 15:10 Resp 20 01/19/21 15:10 BP 124/58 L 01/19/21 15:10 Pulse Ox 93 01/19/21 15:10 Body Mass Index 37.8 Gen: mild dyspnea HEENT: sclera anicteric, moist mucus membranes Neck: supple Lungs: mild respiratory distress, auscultation deferred due to COVID-19 Heart: normal peripheral pulses Abd: soft, non-tender, non-distended Ext: no cyanosis, clubbing, or edema Skin: warm/well-perfused Neuro: alert and oriented x3, no focal findings Psych: appropriate affect Objective Data Current Medications Generic Name Dose Route Start Last Admin Trade Name Freq PRN Reason Stop Dose Admin Acetaminophen 650 mg 01/17/21 23:52 Acetaminophen 325 Mg Tablet PO Q6H PRN Pain, Mild (Pain Scale 1-3) Albuterol Sulfate 4 puff 01/17/21 23:52 Albuterol Sulfate 90 Mcg 8 Gm Inhaler INHALE Q2H PRN Shortness of Breath/Wheezing Aspirin 81 mg 01/19/21 09:00 01/19/21 07:53 Aspirin Enteric Coated 81 Mg Tablet. PO 81 mg DAILY HANANE Administration Atorvastatin Calcium 40 mg 01/18/21 21:00 01/18/21 19:50 Atorvastatin Calcium 40 Mg Tablet PO 40 mg BEDTIME [facility]NA[facility] Administration Carvedilol 25 mg 01/18/21 21:00 01/19/21 08:40 Carvedilol 25 Mg Tablet PO 25 mg BID HANANE Administration Protocol Cilostazol 100 mg 01/18/21 21:00 01/19/21 07:54 Cilostazol 100 Mg Tablet PO 100 mg BID HANANE Administration Cyclobenzaprine HCl 5 mg 01/19/21 10:48 Cyclobenzaprine Hcl 5 Mg Tablet PO TID PRN back pain Dexamethasone 6 mg 01/18/21 09:00 01/19/21 07:53 Dexamethasone 6 Mg Tablet PO 6 mg DAILY [facility]NANE Administration Enoxaparin Sodium 40 mg 01/17/21 22:00 01/18/21 20:05 Enoxaparin Sodium 40 Mg/0.4 Ml Syringe SUBCUT 40 mg Q24H [facility]NA[facility] Administration Ergocalciferol 1,250 mcg 01/19/21 10:00 01/19/21 12:19 Ergocalciferol (Vitamin D2) 1,250 Mcg Capsule PO 1,250 mcg Dubon@1000 [facility] Administration Furosemide 20 mg 01/19/21 09:00 01/19/21 07:54 Furosemide 20 Mg Tablet PO 20 mg DAILY [facility] Administration Protocol Gabapentin 300 mg 01/18/21 21:00 01/18/21 19:51 Gabapentin 300 Mg Capsule PO 300 mg BEDTIME HANANE Administration Hydralazine HCl 50 mg 01/18/21 15:00 01/19/21 08:43 Hydralazine Hcl 50 Mg Tablet PO Not Given TID [facility] Protocol Remdesivir 100 mg/ Sodium 230 mls @ 115 mls/hr 01/19/21 18:00 Chloride IV 01/22/21 19:59 Q24H [facility] Insulin Glargine 35 unit 01/19/21 21:00 Insulin Glargine,Hum.Rec.Anlog 100 Unit/Ml 10 Ml Vial SUBCUT BEDTIME [facility] Insulin Human Lispro 0 unit 01/18/21 07:30 01/19/21 12:20 Insulin Lispro 100 Unit/Ml 3 Ml Vial SUBCUT 8 unit QIDACHS [facility] Administration Protocol Montelukast Sodium 10 mg 01/18/21 21:00 01/18/21 19:50 Montelukast Sodium 10 Mg Tablet PO 10 mg BEDTIME [facility] Administration Sodium Chloride 3 ml 01/18/21 00:00 01/19/21 07:58 0.9 % Sodium Chloride Flush 3 Ml Syringe IVFLUSH 3 ml QSHIFT [facility] Administration Sucralfate 2 gm 01/19/21 09:00 01/19/21 07:52 Sucralfate 1 Gm Tablet PO 2 gm DAILY [facility] Administration Labs CBC & Chem 7: 01/19/21 06:23 01/19/21 06:23 Labs: Laboratory Results - last 24 hr 01/18/21 01/19/21 01/19/21 19:48 06:23 06:23 WBC 14.3 H RBC 4.22 Hgb 10.2 L Hct 31.2 L MCV 73.9 L MCH 24.2 L MCHC 32.7 RDW 14.6 Plt Count 341 MPV 9.6 Immature Gran % (Auto) 0.5 H Neut % (Auto) 89.8 H Lymph % (Auto) 5.7 L [place] % (Auto) 3.9 Eos % (Auto) 0.0 Baso % (Auto) 0.1 Lymph # (Auto) 0.8 L [place] # (Auto) 0.6 Eos # (Auto) 0.0 Baso # (Auto) 0.0 Abs Immat Gran (auto) 0.07 H Absolute Neuts (auto) 12.8 H Absolute Nucleated RBC 0.000 Nucleated RBC % (auto) 0.0 D-Dimer Sodium 132 L Potassium 4.5 Chloride 100 Carbon Dioxide 18 L Anion Gap 19 BUN 52 H D Creatinine 2.49 H Estim Creat Clear Calc 20.7 Estimated GFR 19 POC Glucose 275 H Random Glucose 278 H D Calcium 8.0 L Ferritin 347 H 01/19/21 01/19/21 01/19/21 06:23 07:09 11:32 WBC RBC Hgb Hct MCV MCH MCHC RDW Plt Count MPV Immature Gran % (Auto) Neut % (Auto) Lymph % (Auto) [place] % (Auto) Eos % (Auto) Baso % (Auto) Lymph # (Auto) [place] # (Auto) Eos # (Auto) Baso # (Auto) Abs Immat Gran (auto) Absolute Neuts (auto) Absolute Nucleated RBC Nucleated RBC % (auto) D-Dimer 799 Sodium Potassium Chloride Carbon Dioxide Anion Gap BUN Creatinine Estim Creat Clear Calc Estimated GFR POC Glucose 260 H 261 H Random Glucose Calcium Ferritin Microbiology Microbiology Results: Microbiology 01/17/21 23:05 Blood - Venous Blood Culture - Preliminary No growth after 24 hours. 01/17/21 22:32 Blood - Venous Blood Culture - Preliminary No growth after 24 hours. Assessment and Plan (1) COVID-19: Status: Acute (2) Hypoxia: Status: Acute Assessment and Plan: hospital d#3 75yo F with DM2 with neuropathy and nephropathy, multivessel CAD, peripheral vascular disease, HTN, HLD presenting on the 9th day of symptoms from COVID-19 pneumonia admitted for hypoxia # acute hypoxic respiratory failure - continue supplemental o2, wean as tolerated, encourage awake proning # COVID-19 pneumonia - dexamethasone d#12/11, remdesivir d#2, ID consulted. PCT low so d/c'ed ABX, doubt bacterial superinfection # ARLEY/CKD3 - continue hold lisinopril + furosemide. will give 500mL NS; not too much fluid given risk of ARDS with COVID-19; check FENa # asthma - continue montelukast, prn albuterol. dexamethasone as above # HTN - continue hydralazine, carvedilol; hold lisinopril + furosemide as above # CAD # PVD - continue ASA, statin, carvedilol, cilostazol; hold lisinopril # neuropathy - continue gabapentin # DM2, A1c 7.9 - basal/bolus insulin [increase Lantus] # VTE ppx - LMWH
[2021-01-19 16:03] LABS: Glucose, Whole Blood 154 mg/dL (60-115)
[2021-01-19] MEDS: hydrALAZINE HCl 50 MG TABLET PO ×2 (16:53→20:40)
[2021-01-19] MEDS: Remdesivir 100 MG in 0.9 % Sodium Chloride 230 ML 115 MG IV (17:09)
[2021-01-19] MEDS: 0.9 % Sodium Chloride 500 ML 100 ML IV (19:10)
[2021-01-19 20:12] LABS: Glucose, Whole Blood 149 mg/dL (60-115)
[2021-01-19] MEDS: Atorvastatin Calcium 40 MG TABLET PO (20:40)
[2021-01-19] MEDS: Montelukast Sodium 10 MG TABLET PO (20:40)
[2021-01-19] MEDS: Gabapentin 300 MG CAPSULE PO (20:40)
[2021-01-19] MEDS: Insulin Glargine,Hum.rec.anlog 100 UNIT/ML 10 ML VIAL 35 UNIT SUBCUT (20:41)
[2021-01-19] MEDS: Enoxaparin Sodium 40 MG/0.4 ML SYRINGE SUBCUT (22:00)
[2021-01-20] VITALS (8 sets, daily range): BP systolic 90–124; BP diastolic 43–53; PULSE 62–66; RESP 20; TEMP 35.9–37; O2SAT 92–99
[2021-01-20] MEDS: Cyclobenzaprine HCl 5 MG TABLET PO (01:49)
[2021-01-20 06:31] LABS: Creatinine Urine 72.57 mg/dL; Protein/Creatinine Ratio, Ur 2.73 (<0.2); Total Protein Urine Random 198 mg/dL (<12)
[2021-01-20 06:35] LABS: MANUAL DIFF FLAG NO
[2021-01-20 06:46] LABS: Basophils Percent Auto 0.1 % (0-2); Hematocrit 29.2 % (37-47); Hemoglobin 9.7 g/dl (12.0-16.0); Imm Gran Abs Auto 0.09 X10*3/uL (0.00-0.03); Imm Gran Pct Auto 0.6 % (0.0-0.4); Lymphocytes Absolute Auto 0.9 X10*3/uL (1.2-4.9); Lymphocytes Percent Auto 5.9 % (20-40); Mean Corpuscular HGB Conc 33.2 g/dl (31.0-35.0); Mean Corpuscular Hemoglobin 24.4 pg (27.0-33.0); Mean Corpuscular Volume 73.6 fL (80-98); Mean Platelet Volume 9.6 fL (9.4-12.3); Monocytes Absolute Auto 0.6 X10*3/uL (0.1-1.2); Neutrophils Absolute Auto 13.7 X10*3/uL (2.0-8.3); Neutrophils Percent Auto 89.4 % (45-73); Platelet Count 374 X10*3/uL (160-400); Red Blood Count 3.97 X10*6/uL (4.20-5.50); Red Cell Distribution Width 14.6 % (11.0-16.0); White Blood Count 15.3 X10*3/uL (4.8-10.8)
[2021-01-20 07:18] LABS: Alanine Aminotransferase 46 U/L (0-31); Albumin Level 2.7 g/dL (3.5-5.0); Alkaline Phosphatase 67 U/L (39-117); Anion Gap 21 (12-20); Aspartate Amino Transferase 52 U/L (5-31); Bilirubin Total 0.4 mg/dL (0.0-1.0); Blood Urea Nitrogen 74 mg/dL (9-16); C Reactive Protein 6.57 mg/dL (< or = 0.50); Calcium 7.5 mg/dL (8.4-10.2); Carbon Dioxide 15 mmol/L (22-29); Chloride 98 mmol/L (96-108); Creatinine Clr Calc Pharmacy 14.6; Estimated Glomerular Filt Rate 13; Glucose Random 144 mg/dL (60-115); Potassium 4.5 mmol/L (3.3-5.1); Sodium 129 mmol/L (135-145); Total Protein 5.5 g/dL (6.5-8.0)
[2021-01-20 07:18] LABS: Glucose, Whole Blood 138 mg/dL (60-115)
[2021-01-20 07:21] LABS: Procalcitonin 0.48 ng/mL
[2021-01-20] MEDS: Furosemide 20 MG TABLET PO (08:51)
[2021-01-20] MEDS: dexAMETHasone 6 MG TABLET PO (08:51)
[2021-01-20] MEDS: cilostazoL 100 MG TABLET PO ×2 (08:51→20:36)
[2021-01-20] MEDS: hydrALAZINE HCl 50 MG TABLET PO (08:51)
[2021-01-20] MEDS: Sucralfate 1 GM TABLET 2 GM PO (08:51)
[2021-01-20] MEDS: Aspirin Enteric Coated 81 MG TABLET.DR PO (08:51)
[2021-01-20] MEDS: carvediloL 25 MG TABLET PO (08:51)
[2021-01-20 11:08] LABS: Glucose, Whole Blood 219 mg/dL (60-115)
[2021-01-20] MEDS: Insulin Lispro 100 UNIT/ML 3 ML VIAL SUBCUT ×3 (11:26→20:36)
--- NOTE | 2021-01-20 14:22 | HO.PM.IMPN ---
Subjective Subjective Date of Service: 01/20/21 Interval History: seen and examined PM with stack attendant services she tells me she feels tired and short of breath reports slightly cough reports feeling okay otherwise dneies any urinary cmplaints ROS General - no fevers or chills Cardiovascular - no chest pain Respiratory - +SOB / Cough Abdominal- no abdominal pain, nausea, vomiting, diarrhea Physical Exam Vital Signs: Vital Signs: Last Vital Signs Temp 97.1 F 01/20/21 11:13 Pulse 62 01/20/21 11:13 Resp 20 01/20/21 11:13 BP 114/45 L 01/20/21 11:13 Pulse Ox 8 L 01/20/21 14:07 Body Mass Index 37.8 Const: Other: General - no acute distress, appears comfortable Cardiovascular - regular rate and rhythm, S1-S2 Lungs - diminished, o2 saturations in the 90s on venti-mask, tachypnea with exertion Abdomen - soft, nontender, no rebound or guarding Extremities - no edema bilaterally Neuro - awake and alert, no focal deficits Objective Data Current Medications Generic Name Dose Route Start Last Admin Trade Name Freq PRN Reason Stop Dose Admin Acetaminophen 650 mg 01/17/21 23:52 Acetaminophen 325 Mg Tablet PO Q6H PRN Pain, Mild (Pain Scale 1-3) Albuterol Sulfate 4 puff 01/17/21 23:52 Albuterol Sulfate 90 Mcg 8 Gm Inhaler INHALE Q2H PRN Shortness of Breath/Wheezing Aspirin 81 mg 01/19/21 09:00 01/20/21 08:51 Aspirin Enteric Coated 81 Mg Tablet. PO 81 mg DAILY HANANE Administration Atorvastatin Calcium 40 mg 01/18/21 21:00 01/19/21 20:40 Atorvastatin Calcium 40 Mg Tablet PO 40 mg BEDTIME [facility]NANE Administration Carvedilol 25 mg 01/18/21 21:00 01/20/21 08:51 Carvedilol 25 Mg Tablet PO 25 mg BID HANANE Administration Protocol Cilostazol 100 mg 01/18/21 21:00 01/20/21 08:51 Cilostazol 100 Mg Tablet PO 100 mg BID HANANE Administration Cyclobenzaprine HCl 5 mg 01/19/21 10:48 01/20/21 01:49 Cyclobenzaprine Hcl 5 Mg Tablet PO 5 mg TID PRN Administration back pain Dexamethasone 6 mg 01/18/21 09:00 01/20/21 08:51 Dexamethasone 6 Mg Tablet PO 6 mg DAILY HANANE Administration Ergocalciferol 1,250 mcg 01/19/21 10:00 01/19/21 12:19 Ergocalciferol (Vitamin D2) 1,250 Mcg Capsule PO 1,250 mcg [place]on@1000 [facility] Administration Furosemide 20 mg 01/19/21 09:00 01/20/21 08:51 Furosemide 20 Mg Tablet PO 20 mg DAILY [facility]NA[facility] Administration Protocol Gabapentin 300 mg 01/18/21 21:00 01/19/21 20:40 Gabapentin 300 Mg Capsule PO 300 mg BEDTIME [facility] Administration Hydralazine HCl 50 mg 01/18/21 15:00 01/20/21 08:51 Hydralazine Hcl 50 Mg Tablet PO 50 mg TID HANANE Administration Protocol Insulin Glargine 35 unit 01/19/21 21:00 01/19/21 20:41 Insulin Glargine,Hum.Rec.Anlog 100 Unit/Ml 10 Ml Vial SUBCUT 35 unit BEDTIME [facility]NA[facility] Administration Insulin Human Lispro 0 unit 01/18/21 07:30 01/20/21 11:26 Insulin Lispro 100 Unit/Ml 3 Ml Vial SUBCUT 6 unit QIDACHS [facility] Administration Protocol Montelukast Sodium 10 mg 01/18/21 21:00 01/19/21 20:40 Montelukast Sodium 10 Mg Tablet PO 10 mg BEDTIME [facility]NANE Administration Sodium Chloride 3 ml 01/18/21 00:00 01/19/21 22:01 0.9 % Sodium Chloride Flush 3 Ml Syringe IVFLUSH 3 ml QSHIFT [facility]NANE Administration Sucralfate 2 gm 01/19/21 09:00 01/20/21 08:51 Sucralfate 1 Gm Tablet PO 2 gm DAILY [facility]NA[facility] Administration Labs CBC & Chem 7: 01/20/21 05:57 01/20/21 05:57 Microbiology Microbiology Results: Microbiology 01/17/21 23:05 Blood - Venous Blood Culture - Preliminary No growth after 48 hours. 01/17/21 22:32 Blood - Venous Blood Culture - Preliminary No growth after 48 hours. Assessment and Plan (1) COVID-19: Status: Acute Assessment and Plan: 75yo F with DM2 with neuropathy and nephropathy, multivessel CAD, peripheral vascular disease, HTN, HLD presenting on the 9th day of symptoms from COVID-19 pneumonia admitted for hypoxia # acute hypoxic respiratory failure On Venti mask, wean to NC today if possible # COVID-19 pneumonia - dexamethasone d#01/11, remdesivir d/c'ed in light of worsening renal failure # ARLEY/CKD3 hold nephrotoxins stop remdesivir consult nephrology # asthma - continue montelukast, prn albuterol. dexamethasone as above # HTN - continue hydralazine, carvedilol; hold lisinopril + furosemide as above # CAD # PVD - continue ASA, statin, carvedilol, cilostazol; hold lisinopril # neuropathy - continue gabapentin # DM2, A1c 7.9 - basal/bolus insulin [increase Lantus] Full Code DVT pptx, change to heparin in light of SCr rising
[2021-01-20 16:17] LABS: Glucose, Whole Blood 231 mg/dL (60-115)
[2021-01-20] MEDS: 0.9 % Sodium Chloride Flush 3 ML SYRINGE IVFLUSH ×2 (17:13→23:15)
[2021-01-20 19:55] LABS: Glucose, Whole Blood 263 mg/dL (60-115)
[2021-01-20] MEDS: Gabapentin 300 MG CAPSULE PO (20:36)
[2021-01-20] MEDS: Atorvastatin Calcium 40 MG TABLET PO (20:36)
[2021-01-20] MEDS: Montelukast Sodium 10 MG TABLET PO (20:36)
[2021-01-20] MEDS: Insulin Glargine,Hum.rec.anlog 100 UNIT/ML 10 ML VIAL 35 UNIT SUBCUT (20:36)
[2021-01-21 03:46] VITALS: BP 109/55; PULSE 61; RESP 20; TEMP 36.8; O2SAT 96
[2021-01-21 06:56] LABS: Hematocrit 31.7 % (37-47); Hemoglobin 10.5 g/dl (12.0-16.0); Mean Corpuscular HGB Conc 33.1 g/dl (31.0-35.0); Mean Corpuscular Hemoglobin 24.4 pg (27.0-33.0); Mean Corpuscular Volume 73.5 fL (80-98); Mean Platelet Volume 9.3 fL (9.4-12.3); Platelet Count 395 X10*3/uL (160-400); Red Blood Count 4.31 X10*6/uL (4.20-5.50); Red Cell Distribution Width 14.4 % (11.0-16.0); White Blood Count 13.9 X10*3/uL (4.8-10.8)
[2021-01-21 07:30] LABS: Anion Gap 20 (12-20); Blood Urea Nitrogen 93 mg/dL (9-16); Calcium 7.2 mg/dL (8.4-10.2); Carbon Dioxide 14 mmol/L (22-29); Chloride 92 mmol/L (96-108); Creatinine Clr Calc Pharmacy 10.7; Estimated Glomerular Filt Rate 9; Glucose Random 174 mg/dL (60-115); Potassium 4.9 mmol/L (3.3-5.1); Sodium 121 mmol/L (135-145)
[2021-01-21 07:34] LABS: Glucose, Whole Blood 186 mg/dL (60-115)
[2021-01-21] MEDS: 0.9 % Sodium Chloride Flush 3 ML SYRINGE IVFLUSH ×3 (07:54→21:17)
[2021-01-21] MEDS: dexAMETHasone 6 MG TABLET PO (07:55)
[2021-01-21] MEDS: cilostazoL 100 MG TABLET PO ×2 (07:55→21:11)
[2021-01-21] MEDS: Sucralfate 1 GM TABLET 2 GM PO (07:55)
[2021-01-21] MEDS: Aspirin Enteric Coated 81 MG TABLET.DR PO (07:56)
[2021-01-21] MEDS: Insulin Lispro 100 UNIT/ML 3 ML VIAL SUBCUT ×4 (07:56→21:12)
[2021-01-21 08:00] VITALS: BP 96/50; PULSE 60; RESP 22; O2SAT 98
[2021-01-21 11:47] LABS: Glucose, Whole Blood 231 mg/dL (60-115)
[2021-01-21 12:00] VITALS: BP 112/55; PULSE 62; RESP 22; O2SAT 87
[2021-01-21 13:46] LABS: Uric Acid 10.3 mg/dL (2.4-5.7)
[2021-01-21 14:07] LABS: Osmolality, Serum 289 mosm/kg (281-305)
[2021-01-21] MEDS: Sodium Bicarbonate 8.4% 150 MEQ in Dextrose 5 % 850 ML 100 MEQ IV (14:32)
--- NOTE | 2021-01-21 15:33 | HO.PM.IMPN ---
Subjective Subjective Date of Service: 01/21/21 Interval History: seen and examined PM with spanish medical interpreter services no new complaints ROS General - no fevers or chills Cardiovascular - no chest pain Respiratory - +SOB / Cough Abdominal- no abdominal pain, nausea, vomiting, diarrhea Physical Exam Vital Signs: Vital Signs: Last Vital Signs Temp 98.2 F 01/21/21 03:46 Pulse 62 01/21/21 12:00 Resp 22 H 01/21/21 12:00 BP 112/55 L 01/21/21 12:00 Pulse Ox 87 L 01/21/21 12:00 Body Mass Index 37.8 Const: Other: General - no acute distress, appears comfortable Cardiovascular - regular rate and rhythm, S1-S2 Lungs - diminished, o2 saturations in the 90s on venti-mask, tachypnea with exertion Abdomen - soft, nontender, no rebound or guarding Extremities - no edema bilaterally Neuro - awake and alert, no focal deficits Objective Data Current Medications Generic Name Dose Route Start Last Admin Trade Name Freq PRN Reason Stop Dose Admin Acetaminophen 650 mg 01/17/21 23:52 Acetaminophen 325 Mg Tablet PO Q6H PRN Pain, Mild (Pain Scale 1-3) Albuterol Sulfate 4 puff 01/17/21 23:52 Albuterol Sulfate 90 Mcg 8 Gm Inhaler INHALE Q2H PRN Shortness of Breath/Wheezing Aspirin 81 mg 01/19/21 09:00 01/21/21 07:56 Aspirin Enteric Coated 81 Mg Tablet. PO 81 mg DAILY [facility]NA[facility] Administration Atorvastatin Calcium 40 mg 01/18/21 21:00 01/20/21 20:36 Atorvastatin Calcium 40 Mg Tablet PO 40 mg BEDTIME [facility] Administration Carvedilol 25 mg 01/18/21 21:00 01/20/21 08:51 Carvedilol 25 Mg Tablet PO 25 mg BID HANANE Administration Protocol Cilostazol 100 mg 01/18/21 21:00 01/21/21 07:55 Cilostazol 100 Mg Tablet PO 100 mg BID HANANE Administration Cyclobenzaprine HCl 5 mg 01/19/21 10:48 01/20/21 01:49 Cyclobenzaprine Hcl 5 Mg Tablet PO 5 mg TID PRN Administration back pain Dexamethasone 6 mg 01/18/21 09:00 01/21/21 07:55 Dexamethasone 6 Mg Tablet PO 6 mg DAILY HANANE Administration Ergocalciferol 1,250 mcg 01/19/21 10:00 01/19/21 12:19 Ergocalciferol (Vitamin D2) 1,250 Mcg Capsule PO 1,250 mcg Dubon@1000 [facility] Administration Furosemide 20 mg 01/19/21 09:00 01/20/21 08:51 Furosemide 20 Mg Tablet PO 20 mg DAILY [facility] Administration Protocol Gabapentin 300 mg 01/18/21 21:00 01/20/21 20:36 Gabapentin 300 Mg Capsule PO 300 mg BEDTIME [facility]NA[facility] Administration Hydralazine HCl 50 mg 01/18/21 15:00 01/20/21 08:51 Hydralazine Hcl 50 Mg Tablet PO 50 mg TID HANANE Administration Protocol Sodium Bicarbonate 150 meq/ 1,000 mls @ 100 mls/hr 01/21/21 13:00 01/21/21 14:32 Dextrose IV 01/22/21 08:59 100 mls/hr .Q10H [facility]NANE Administration Insulin Glargine 35 unit 01/19/21 21:00 01/20/21 20:36 Insulin Glargine,Hum.Rec.Anlog 100 Unit/Ml 10 Ml Vial SUBCUT 35 unit BEDTIME [facility]NA[facility] Administration Insulin Human Lispro 0 unit 01/18/21 07:30 01/21/21 11:53 Insulin Lispro 100 Unit/Ml 3 Ml Vial SUBCUT 6 unit QIDACHS [facility] Administration Protocol Montelukast Sodium 10 mg 01/18/21 21:00 01/20/21 20:36 Montelukast Sodium 10 Mg Tablet PO 10 mg BEDTIME [facility]NA[facility] Administration Sodium Chloride 3 ml 01/18/21 00:00 01/21/21 14:59 0.9 % Sodium Chloride Flush 3 Ml Syringe IVFLUSH 3 ml QSHIFT [facility] Administration Sucralfate 2 gm 01/19/21 09:00 01/21/21 07:55 Sucralfate 1 Gm Tablet PO 2 gm DAILY [facility] Administration Labs CBC & Chem 7: 01/21/21 06:01 01/21/21 06:12 Microbiology Microbiology Results: Microbiology 01/17/21 23:05 Blood - Venous Blood Culture - Preliminary No growth after 48 hours. 01/17/21 22:32 Blood - Venous Blood Culture - Preliminary No growth after 48 hours. Assessment and Plan (1) COVID-19: Status: Acute Assessment and Plan: 75yo F with DM2 with neuropathy and nephropathy, multivessel CAD, peripheral vascular disease, HTN, HLD presenting on the 9th day of symptoms from COVID-19 pneumonia admitted for hypoxia 1. acute hypoxic respiratory failure on 8L oxymizer, desaturated on 6L 2. COVID-19 pneumonia dexamethasone d#02/10, remdesivir d/c'ed in light of worsening renal failure 3. ARLEY/CKD3/HypoNa continues to worsen nephrology consulted -- place elo, i/o; renal ultrasound; Bicarb drip @ 100 cc/hr x 2L recheck SNa this evening around 6pm --> to report labs to Dr. Tee 4. asthma continue montelukast, prn albuterol. dexamethasone as above 5. HTN continue hydralazine, carvedilol; hold lisinopril + furosemide as above 6. CAD 6a. PVD continue ASA, statin, carvedilol, cilostazol; hold lisinopril 7. neuropathy continue gabapentin # DM2, A1c 7.9 basal/bolus insulin [increase Lantus] Full Code DVT pptx, heparin
[2021-01-21 15:37] VITALS: BP 123/57; PULSE 66; RESP 19; TEMP 35.6; O2SAT 95
--- NOTE | 2021-01-21 16:09 | PC.NURSE ---
Wilkins placed 1430 per MD order. Sterile technique used. Output at 1600 is 200 mL.
[2021-01-21 16:36] LABS: Glucose, Whole Blood 285 mg/dL (60-115)
[2021-01-21 16:43] LABS: Glucose, Whole Blood 260 mg/dL (60-115)
[2021-01-21] MEDS: Heparin Sodium,Porcine 5,000 UNIT/ML VIAL 5000 UNIT SUBCUT ×2 (16:48→22:57)
[2021-01-21 18:12] LABS: Osmolality Urine 289 mosm/kg (373-1093)
[2021-01-21 19:47] VITALS: BP 125/59; PULSE 68; RESP 19; TEMP 35.8; O2SAT 96
[2021-01-21 20:10] LABS: Glucose, Whole Blood 266 mg/dL (60-115)
[2021-01-21] MEDS: Atorvastatin Calcium 40 MG TABLET PO (21:11)
[2021-01-21] MEDS: Montelukast Sodium 10 MG TABLET PO (21:11)
[2021-01-21] MEDS: Gabapentin 300 MG CAPSULE PO (21:11)
[2021-01-21] MEDS: Insulin Glargine,Hum.rec.anlog 100 UNIT/ML 10 ML VIAL 35 UNIT SUBCUT (21:12)
[2021-01-21 22:17] LABS: Anion Gap 22 (12-20); Blood Urea Nitrogen 101 mg/dL (9-16); Calcium 7.1 mg/dL (8.4-10.2); Carbon Dioxide 12 mmol/L (22-29); Chloride 87 mmol/L (96-108); Creatinine Clr Calc Pharmacy 10.2; Estimated Glomerular Filt Rate 8; Glucose Random 254 mg/dL (60-115); Sodium 116 mmol/L (135-145)
--- NOTE | 2021-01-21 22:42 | PM.EVENT ---
Event Note Date of Service: 01/21/21 Event Note: Pt seen and examined Full consult to follow 1. 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 Met acidosis 3. Hyponatremia - ? Hypovolemic Pt had significant loose stools 4. COVID Urien studies Urine OSM/ Serum OSM Renal USG Avoid Rapid correction of NA IVF with Bicarb 150 meq May need HD if no improvement Repeat NA this PM Thx D/w Pt / and medical team
--- NOTE | 2021-01-21 22:43 | P.EN_ITS ---
Event Note Date of Service: 01/21/21 Event Note: Na decreased to 116. Nephrology contacted. recommended sodium bic arbonate IV to be discontinued, make her NPO starting now, and put her on a fluid restriction of 1500ml/day
[2021-01-21] MEDS: Sodium Bicarbonate 650 MG TABLET 1300 MG PO (22:57)
--- NOTE | 2021-01-21 23:03 | PC.NURSE ---
A BNP was draw around 8pm and critical values came back at 10.12pm. Patient's BUN was 101, her Creat. 5.05, and Sodium 116. was informed at 10:17pm. Dr. Tee was also called per communication order found in patient's chart. After speaking to Dr. Tee, Dr. Ozuna was contacted to implement the orders that Dr. Tee stated. Her Sodium Bicarbonate that was running at 100mls/hr was discontinued, she was made NPO, and put on a fluid restriction of 1,500ml/day.
[2021-01-22] VITALS (7 sets, daily range): BP systolic 103–134; BP diastolic 51–86; PULSE 61–80; RESP 20–22; TEMP 36–37; O2SAT 95–99
[2021-01-22] MEDS: Sodium Bicarbonate 650 MG TABLET 1300 MG PO ×3 (05:02→21:59)
[2021-01-22 07:33] LABS: Glucose, Whole Blood 175 mg/dL (60-115)
[2021-01-22] MEDS: dexAMETHasone 6 MG TABLET PO (08:29)
[2021-01-22] MEDS: Aspirin Enteric Coated 81 MG TABLET.DR PO (08:29)
[2021-01-22] MEDS: cilostazoL 100 MG TABLET PO ×2 (08:30→20:24)
[2021-01-22] MEDS: Sucralfate 1 GM TABLET 2 GM PO (08:34)
[2021-01-22] MEDS: Heparin Sodium,Porcine 5,000 UNIT/ML VIAL 5000 UNIT SUBCUT (08:35)
[2021-01-22] MEDS: 0.9 % Sodium Chloride Flush 3 ML SYRINGE IVFLUSH ×3 (08:40→20:24)
--- NOTE | 2021-01-22 10:12 | MHC.CM.PN ---
Per Medical, Patient is not yet medically cleared for dc (Low NA, Worsening Renal Function, ?ICU, ? New HD).Home/resume seat trimmer services is the goal and CM will follow for possible need to adjust the dc plan.
[2021-01-22 10:27] LABS: Hematocrit 29.5 % (37-47); Hemoglobin 10.3 g/dl (12.0-16.0); Mean Corpuscular HGB Conc 34.9 g/dl (31.0-35.0); Mean Corpuscular Hemoglobin 24.4 pg (27.0-33.0); Mean Corpuscular Volume 69.9 fL (80-98); Mean Platelet Volume 9.3 fL (9.4-12.3); Platelet Count 427 X10*3/uL (160-400); Red Blood Count 4.22 X10*6/uL (4.20-5.50); Red Cell Distribution Width 13.8 % (11.0-16.0); White Blood Count 12.6 X10*3/uL (4.8-10.8)
--- NOTE | 2021-01-22 10:59 | HO.PM.IMPN ---
Subjective Subjective Date of Service: 01/22/21 <Myrna Bean NP - Last Filed: 01/22/21 14:34> 01/22/21 <Robert Smith MD - Last Filed: 01/27/21 08:19> Interval History: Follow up covid 19, resp failure, renal failure. No shortness of breath, abdominal pain. <Myrna Bean NP - Last Filed: 01/22/21 14:34> Physical Exam Vital Signs: Vital Signs: Last Vital Signs Temp 97.5 F 01/22/21 07:58 Pulse 64 01/22/21 07:58 Resp 22 H 01/22/21 07:58 BP 125/58 L 01/22/21 07:58 Pulse Ox 98 01/22/21 07:58 Body Mass Index 37.8 <Myrna Bean NP - Last Filed: 01/22/21 14:34> Appearing in no acute distressed lung sounds are clear to auscultation heart regular rate rhythm, clear S1, S2 positive bowel sounds, abdomen is soft, nontender neuro patient is alert x3, no focal deficits gasca catheter in place <Myrna Bean NP - Last Filed: 01/22/21 14:34> Objective Data Current Medications Generic Name Dose Route Start Last Admin Trade Name Freq PRN Reason Stop Dose Admin Acetaminophen 650 mg 01/17/21 23:52 Acetaminophen 325 Mg Tablet PO Q6H PRN Pain, Mild (Pain Scale 1-3) Albuterol Sulfate 4 puff 01/17/21 23:52 Albuterol Sulfate 90 Mcg 8 Gm Inhaler INHALE Q2H PRN Shortness of Breath/Wheezing Aspirin 81 mg 01/19/21 09:00 01/22/21 08:29 Aspirin Enteric Coated 81 Mg Tablet. PO 81 mg DAILY [facility]NA[facility] Administration Atorvastatin Calcium 40 mg 01/18/21 21:00 01/21/21 21:11 Atorvastatin Calcium 40 Mg Tablet PO 40 mg BEDTIME [facility] Administration Carvedilol 25 mg 01/18/21 21:00 01/20/21 08:51 Carvedilol 25 Mg Tablet PO 25 mg BID [facility]NA[facility] Administration Protocol Cilostazol 100 mg 01/18/21 21:00 01/22/21 08:30 Cilostazol 100 Mg Tablet PO 100 mg BID [facility]NA[facility] Administration Cyclobenzaprine HCl 5 mg 01/19/21 10:48 01/20/21 01:49 Cyclobenzaprine Hcl 5 Mg Tablet PO 5 mg TID PRN Administration back pain Dexamethasone 6 mg 01/18/21 09:00 01/22/21 08:29 Dexamethasone 6 Mg Tablet PO 6 mg DAILY [facility]NANE Administration Ergocalciferol 1,250 mcg 01/19/21 10:00 01/19/21 12:19 Ergocalciferol (Vitamin D2) 1,250 Mcg Capsule PO 1,250 mcg [place]@1000 [facility]NANE Administration Furosemide 20 mg 01/19/21 09:00 01/20/21 08:51 Furosemide 20 Mg Tablet PO 20 mg DAILY HANANE Administration Protocol Gabapentin 300 mg 01/18/21 21:00 01/21/21 21:11 Gabapentin 300 Mg Capsule PO 300 mg BEDTIME [facility]NA[facility] Administration Heparin Sodium (Porcine) 5,000 unit 01/21/21 16:00 01/22/21 08:35 Heparin Sodium,Porcine 5,000 Unit/Ml Vial SUBCUT 5,000 unit Q8H [facility]NA[facility] Administration Hydralazine HCl 50 mg 01/18/21 15:00 01/20/21 08:51 Hydralazine Hcl 50 Mg Tablet PO 50 mg TID [facility]NANE Administration Protocol Insulin Glargine 35 unit 01/19/21 21:00 01/21/21 21:12 Insulin Glargine,Hum.Rec.Anlog 100 Unit/Ml 10 Ml Vial SUBCUT 35 unit BEDTIME [facility]NANE Administration Insulin Human Lispro 0 unit 01/18/21 07:30 01/22/21 08:40 Insulin Lispro 100 Unit/Ml 3 Ml Vial SUBCUT Not Given QIDACHS [facility] Protocol Montelukast Sodium 10 mg 01/18/21 21:00 01/21/21 21:11 Montelukast Sodium 10 Mg Tablet PO 10 mg BEDTIME [facility] Administration Sodium Bicarbonate 1,300 mg 01/21/21 23:00 01/22/21 05:02 Sodium Bicarbonate 650 Mg Tablet PO 1,300 mg Q6H [facility] Administration Sodium Chloride 3 ml 01/18/21 00:00 01/22/21 08:40 0.9 % Sodium Chloride Flush 3 Ml Syringe IVFLUSH 3 ml QSHIFT [facility] Administration Sucralfate 2 gm 01/19/21 09:00 01/22/21 08:34 Sucralfate 1 Gm Tablet PO 2 gm DAILY HANANE Administration <Myrna Bean NP - Last Filed: 01/22/21 14:34> Labs CBC & Chem 7: : 01/25/21 05:59 01/27/21 06:03 <Myrna Bean NP - Last Filed: 01/22/21 14:34> Microbiology Microbiology Results: Microbiology 01/17/21 23:05 Blood - Venous Blood Culture - Preliminary No growth after 48 hours. 01/17/21 22:32 Blood - Venous Blood Culture - Preliminary No growth after 48 hours. <Myrna Bean NP - Last Filed: 01/22/21 14:34> Assessment and Plan (1) COVID-19: Status: Acute <Myrna Bean NP - Last Filed: 01/22/21 14:34> Assessment and Plan: 75yo F with DM2 with neuropathy and nephropathy, multivessel CAD, peripheral vascular disease, HTN, HLD presenting on the 9th day of symptoms from COVID-19 pneumonia admitted for hypoxia ARLEY/CKD3/. Continues to worsen creat 5.[address] temp cath tomorrow, likely need dialysis tomorrow, NPO after midnight nephrology following. Bicarb drip stopped [place] cath renal ultrasound showed no hydro stop sc heparin Hyponatremia. Sodium trending up 118 Fluid rest 1500ml Bicarb drip stopped Acute hypoxic respiratory failure. Improving on 6L oxymizer, sats 95-98%, continue to wean oxygen COVID-19 pneumonia dexamethasone remdesivir d/c'ed in light of worsening renal failure Asthma continue montelukast, prn albuterol. dexamethasone as above HTN continue hydralazine, carvedilol; hold lisinopril + furosemide d/t ARLEY CAD/PVD continue ASA, statin, carvedilol, cilostazol; hold lisinopril neuropathy continue gabapentin DM2, A1c 7.9 basal/bolus insulin [increase Lantus] Full Code DVT pptx, heparin Attending: Dr. Smith <Myrna Bean NP - Last Filed: 01/22/21 14:34>
[2021-01-22 11:17] LABS: Anion Gap 20 (12-20); Blood Urea Nitrogen 116 mg/dL (9-16); Calcium 7.3 mg/dL (8.4-10.2); Carbon Dioxide 17 mmol/L (22-29); Chloride 86 mmol/L (96-108); Creatinine Clr Calc Pharmacy 9.5; Estimated Glomerular Filt Rate 8; Glucose Random 130 mg/dL (60-115); Potassium 4.5 mmol/L (3.3-5.1); Sodium 118 mmol/L (135-145)
[2021-01-22 12:09] LABS: Glucose, Whole Blood 119 mg/dL (60-115)
[2021-01-22 13:26] LABS: Prothrombin Time 12.3 SEC (10.8-13.0)
[2021-01-22 16:23] LABS: Glucose, Whole Blood 95 mg/dL (60-115)
[2021-01-22 17:11] LABS: Blood Urea Nitrogen 120 mg/dL (9-16)
[2021-01-22 17:12] LABS: Anion Gap 22 (12-20); Calcium 7.7 mg/dL (8.4-10.2); Carbon Dioxide 16 mmol/L (22-29); Chloride 86 mmol/L (96-108); Creatinine Clr Calc Pharmacy 9.7; Estimated Glomerular Filt Rate 8; Glucose Random 97 mg/dL (60-115); Potassium 4.8 mmol/L (3.3-5.1); Sodium 119 mmol/L (135-145)
--- NOTE | 2021-01-22 17:15 | CONS_ITS ---
DATE OF SERVICE: 01/21/2021 REFERRING PHYSICIAN: Robert Smith MD REASON FOR CONSULTATION: Consult requested by Dr. Smith to evaluate and help in management of the patient with severe renal insufficiency, acidosis, and hyponatremia. The patient is [place]-speaking and patient's was in the room and I was able to get history from the medical record and the who presented to the hospital complains of diarrhea. She has a history of longstanding hypertension, hyperlipidemia, and diabetic nephropathy/CKD, who presented with the above complaint. She has been having this for about a few days without any abdominal pain. There is no dysuria or urgency of urination. She had some occasional shortness of breath. There is no cough. There is no fever or chills. She has had a family member positive for COVID. There is no chest pain, palpitations, lightheadedness, or dizziness. In the ER, the patient was noted to be dyspneic and oxygen saturation of 70% on room air, subsequently placed on non-rebreather with improvement to 89% to 90%. Creatinine was 1.4, and she was treated with Decadron and inhaler. She was admitted to the hospital for further management. Renal consult has been requested. The patient had severe worsening of her renal function and hyponatremia with acidosis. PAST MEDICAL HISTORY: History of asthma, chronic kidney disease stage 3 at baseline, history of type 2 diabetes mellitus, diabetic nephropathy, diabetic polyneuropathy, hyperlipidemia, GERD, hypertension, infected cyst of the skin, morbid obesity, and thalamic pain syndrome. FAMILY HISTORY: Significant renal and pelvic cancer in the sister. PAST SURGICAL HISTORY: Include breast lump and excision of mass, history of cholecystectomy, and tubal ligation. PERSONAL AND SOCIAL HISTORY: The patient does not drink. She is a former smoker. Does not use drugs. ALLERGIES: INCLUDE IBUPROFEN, OXYCODONE, TYLENOL, MOTRIN. MEDICATIONS: Active medications include Tylenol, albuterol, azithromycin, dexamethasone, Lovenox, ceftriaxone, insulin. Home medications include amlodipine, aspirin, carvedilol, cilostazol, ergocalciferol, furosemide, gabapentin, hydralazine, and montelukast. PHYSICAL EXAMINATION: GENERAL: The patient is resting in a chair, awake, alert, oriented x3. No significant distress. VITAL SIGNS: Blood pressure was 112/55, pulse 62, oxygen saturation 87% on 6 L. HEENT: Shows pupils equal, round, and bilaterally reactive to light. No jugular venous distention is noted. NECK: Supple. CARDIOVASCULAR SYSTEM: S1, S2 without rub. RESPIRATORY SYSTEM: Air entry decreased in the bases without any crepitation or rhonchi. ABDOMEN: Obese, soft. Bowel sounds normal. EXTREMITIES: Showed no significant edema. There is no peripheral cyanosis or clubbing. NEURO: Essentially nonfocal. LABORATORY DATA: Labs done today showed WBC 13.9, hemoglobin was 10.5, hematocrit 31.7, platelets were 395. INR 1.0, PTT was 32. Sodium was 121, potassium 4.9, chloride 92, CO2 of 14, BUN 93, creatinine 4.81, estimated GFR was 9, glucose 174, calcium 7.2, albumin was 2.7. Urinalysis shows yellow urine, specific gravity 1.015, protein 2+, glucose negative, ketone negative, blood negative, rbc's 0, wbc's 0 to 2. Urine sodium was 20, urine protein was 198, protein creatinine ratio of around 2.7 g. COVID was positive. The patient did have a CTA of her chest on 01/17. IMPRESSION: 1. A 75-year-old female with acute kidney injury. Acute kidney injury in this patient likely secondary to acute tubular injury due to multifactorial reasons. The patient had a creatinine of 1.4 on admission, which has increased significantly after the CAT scan/CT and likely has contrast-induced nephropathy. She also likely has COVID-induced renal damage. Obstruction needs to be ruled out on this patient. She does have proteinuria, which again could be due to COVID. 2. Chronic kidney disease stage 3 at baseline. 3. Hyponatremia, likely hypovolemic. 4. COVID pneumonia with diarrhea. RECOMMENDATIONS: At this juncture, I would recommend checking a serum and urine osmolality. I also avoid using any nephrotoxic agents on this patient. I discussed with the medical team and we decided to do a renal ultrasound and place a Wilkins catheter. In regard to hyponatremia and her renal insufficiency, I have recommended D5 water with 150 mEq of sodium bicarb to correct the sodium, the prerenal state, and the metabolic acidosis. I would recommend avoid correcting more than 6 to 8 mEq of sodium over the next 24 hours. We will continue to monitor the patient closely. I discussed with the patient and the patient's at the bedside and informed her that if the renal function does not improve over the next 24 to 48 hours, she might require a renal replacement therapy. We will keep patient n.p.o. just in case she needs dialysis access in the a.m. Thank you for allowing me to participate in the medical management of the patient. MD MONICA Cuevas/CARLOS / [phone]
[2021-01-22 20:01] LABS: Glucose, Whole Blood 127 mg/dL (60-115)
[2021-01-22] MEDS: Gabapentin 300 MG CAPSULE PO (20:24)
[2021-01-22] MEDS: Montelukast Sodium 10 MG TABLET PO (20:24)
[2021-01-22] MEDS: Atorvastatin Calcium 40 MG TABLET PO (20:24)
[2021-01-22] MEDS: Insulin Glargine,Hum.rec.anlog 100 UNIT/ML 10 ML VIAL 35 UNIT SUBCUT (20:25)
[2021-01-22] MEDS: Insulin Lispro 100 UNIT/ML 3 ML VIAL SUBCUT (20:25)
--- NOTE | 2021-01-22 22:07 | P.PNNP_ITS ---
Subjective Subjective Date of Service: 01/22/21 Interval history: Follow up for renal failure Sitting up in the chair ABd discomfort Low Urine output Physical Exam Vital Signs: Vital Signs: Last Vital Signs Temp 96.8 F 01/22/21 19:07 Pulse 80 01/22/21 19:07 Resp 20 01/22/21 19:07 BP 124/86 01/22/21 19:07 Pulse Ox 95 01/22/21 19:07 Body Mass Index 37.8 Const: Other: Appearing in no acute distressed lung sounds are clear to auscultation heart regular rate rhythm, clear S1, S2 positive bowel sounds, abdomen is soft, nontender neuro patient is alert x3, no focal deficits gasca catheter in place Objective Data Labs CBC & Chem 7: 01/22/21 10:21 01/22/21 16:07 Labs: Laboratory Results - last 24 hr 01/21/21 01/22/21 01/22/21 20:50 07:26 10:21 WBC 12.6 H RBC 4.22 Hgb 10.3 L Hct 29.5 L MCV 69.9 L MCH 24.4 L MCHC 34.9 RDW 13.8 Plt Count 427 H MPV 9.3 L Absolute Nucleated RBC 0.000 Nucleated RBC % (auto) 0.0 PT INR Sodium 116 L* Potassium 5.0 Chloride 87 L Carbon Dioxide 12 L Anion Gap 22 H BUN 101 H* Creatinine 5.05 H* Estim Creat Clear Calc 10.2 Estimated GFR 8 POC Glucose 175 H Random Glucose 254 H D Calcium 7.1 L 01/22/21 01/22/21 01/22/21 10:21 11:52 12:42 WBC RBC Hgb Hct MCV MCH MCHC RDW Plt Count MPV Absolute Nucleated RBC Nucleated RBC % (auto) PT 12.3 INR 1.0 Sodium 118 L* Potassium 4.5 Chloride 86 L Carbon Dioxide 17 L Anion Gap 20 BUN 116 H* Creatinine 5.40 H* Estim Creat Clear Calc 9.5 Estimated GFR 8 POC Glucose 119 H Random Glucose 130 H D Calcium 7.3 L 01/22/21 01/22/21 01/22/21 16:07 16:15 19:53 WBC RBC Hgb Hct MCV MCH MCHC RDW Plt Count MPV Absolute Nucleated RBC Nucleated RBC % (auto) PT INR Sodium 119 L* Potassium 4.8 Chloride 86 L Carbon Dioxide 16 L Anion Gap 22 H BUN 120 H* Creatinine 5.32 H* Estim Creat Clear Calc 9.7 Estimated GFR 8 POC Glucose 95 127 H Random Glucose 97 Calcium 7.7 L Microbiology Microbiology Results: Microbiology 01/17/21 23:05 Blood - Venous Blood Culture - Preliminary No growth after 48 hours. 01/17/21 22:32 Blood - Venous Blood Culture - Preliminary No growth after 48 hours. Assessment & Plan Time Spent With Patient Time: 1. A 75-year-old female with acute kidney injury. Acute kidney injury in this patient likely secondary to acute tubular injury due to multifactorial reasons. The patient had a creatinine of 1.4 on admission, which has increased significantly after the CAT scan/CT and likely has contrast-induced nephropathy. She also likely has COVID-induced renal damage. Obstruction needs to be ruled out on this patient. She does have proteinuria, which again could be due to COVID. 2. Chronic kidney disease stage 3 at baseline. 3. Hyponatremia- Normal osmolality 4. COVID pneumonia with diarrhea. RECOMMENDATIONS: Avoid using any nephrotoxic agents on this patient. No [place] on Renal ultrasound Fluid Restriction PO Sodium Bicarb I would recommend avoid correcting more than 6 to 8 mEq of sodium over the next 24 hours. We will continue to monitor the patient closely. We will keep patient n.p.o. just in case she needs dialysis access in the a.m( I spoke to Pt and medical team ) HD in AM after bonny HD line Thank you Total time spent is greater than 50% in coordination of care (as documented) at patient's floor/unit and/or counseling patient:
[2021-01-23] VITALS (8 sets, daily range): BP systolic 108–153; BP diastolic 43–64; PULSE 60–77; RESP 20; TEMP 35.6–36.8; O2SAT 93–99
[2021-01-23] MEDS: Sodium Bicarbonate 650 MG TABLET 1300 MG PO ×3 (04:04→18:00)
[2021-01-23 06:49] LABS: MANUAL DIFF FLAG NO
[2021-01-23 06:57] LABS: Basophils Percent Auto 0.1 % (0-2); Hematocrit 29.8 % (37-47); Hemoglobin 10.5 g/dl (12.0-16.0); Imm Gran Abs Auto 0.21 X10*3/uL (0.00-0.03); Lymphocytes Absolute Auto 0.8 X10*3/uL (1.2-4.9); Lymphocytes Percent Auto 8.1 % (20-40); Mean Corpuscular HGB Conc 35.2 g/dl (31.0-35.0); Mean Corpuscular Hemoglobin 24.6 pg (27.0-33.0); Mean Platelet Volume 9.3 fL (9.4-12.3); Monocytes Absolute Auto 0.6 X10*3/uL (0.1-1.2); Monocytes Percent Auto 5.8 % (2-11); Neutrophils Absolute Auto 8.8 X10*3/uL (2.0-8.3); Platelet Count 453 X10*3/uL (160-400); Red Blood Count 4.26 X10*6/uL (4.20-5.50); Red Cell Distribution Width 14.1 % (11.0-16.0); White Blood Count 10.4 X10*3/uL (4.8-10.8)
[2021-01-23 07:24] LABS: Glucose, Whole Blood 60 mg/dL (60-115)
[2021-01-23 07:30] LABS: Anion Gap 22 (12-20); Blood Urea Nitrogen 123 mg/dL (9-16); Calcium 7.4 mg/dL (8.4-10.2); Carbon Dioxide 18 mmol/L (22-29); Chloride 87 mmol/L (96-108); Creatinine Clr Calc Pharmacy 10.5; Estimated Glomerular Filt Rate 9; Glucose Random 52 mg/dL (60-115); Potassium 4.5 mmol/L (3.3-5.1); Sodium 122 mmol/L (135-145)
[2021-01-23 07:36] LABS: HBS Num1 0.35 mIU/mL (0-7.99); HBc Num1 9.76 S/CO (0.00-0.79); ~Hepatitis B Surface Antibody NONREACTIVE (Nonreactive)
[2021-01-23 07:46] LABS: HBsAGNum1 0.14 S/CO (0.00-0.99); Hepatitis B Surface Antigen Negative (Negative)
[2021-01-23] MEDS: 0.9 % Sodium Chloride Flush 3 ML SYRINGE IVFLUSH ×2 (07:47→18:01)
[2021-01-23 08:16] LABS: Glucose, Whole Blood 153 mg/dL (60-115)
--- NOTE | 2021-01-23 08:28 | PC.NURSE ---
To IR with transporters for temp dialysis cath placement
[2021-01-23 10:41] LABS: Glucose, Whole Blood 82 mg/dL (60-115)
[2021-01-23] MEDS: dexAMETHasone 6 MG TABLET PO (11:10)
--- NOTE | 2021-01-23 11:19 | PC.NURSE ---
returned from IR with temp dialysis cath in right neck at 1054. POC 82. diet changed to diabetic. given applesauce. patient tolerated well. VSS.
[2021-01-23 11:43] LABS: Glucose, Whole Blood 72 mg/dL (60-115)
[2021-01-23 13:21] LABS: Glucose, Whole Blood 72 mg/dL (60-115)
--- NOTE | 2021-01-23 14:22 | PC.NURSE ---
Blood sugar reamianed at 72 at 1330. patient did not eat lunch. explained to patient importance of eating to ensure BS stays elevated. PA notified that she tolerated crackers and peanut butter and fresh fruit.
--- NOTE | 2021-01-23 17:44 | P.PNIM_ITS ---
Subjective Subjective Date of Service: 01/23/21 Interval History: Follow-up COVID-19, renal failure Patient denies any shortness of breath, reports cough No other complaints at this time Review of Systems Review of Systems: Yes all other systems are reviewed and are negative Constitutional Constitutional: Denies chills and Denies fever(s) Cardiovascular Cardiovascular: Denies chest pain Gastrointestinal Gastrointestinal: Denies abdominal pain Physical Exam Vital Signs: Vital Signs: Last Vital Signs Temp 97.0 F 01/23/21 13:00 Pulse 60 01/23/21 13:00 Resp 20 01/23/21 13:00 BP 125/50 L 01/23/21 13:00 Pulse Ox 99 01/23/21 13:00 Body Mass Index 37.8 Const: Nutritional Appearance: well nourished Orientation/consciousness: patient oriented x3 HENMT: Head: Yes normocephalic and Yes atraumatic Eyes: Sclerae: sclerae normal Chest: Chest palpation & inspection: normal inspection of the chest Resp: Effort & Inspection: normal respiratory effort and no respiratory distress Cardio: Rate: regular rate Rhythm: regular rhythm GI: Palpation (GI): Soft to palpation and nontender : Other: gasca in place Neuro: General: patient oriented x3 Cranial nerves: Yes CN's II-XII intact bilaterally and Yes Bilaterally intact EOM present Objective Data Current Medications Generic Name Dose Route Start Last Admin Trade Name Freq PRN Reason Stop Dose Admin Acetaminophen 650 mg 01/17/21 23:52 Acetaminophen 325 Mg Tablet PO Q6H PRN Pain, Mild (Pain Scale 1-3) Albuterol Sulfate 4 puff 01/17/21 23:52 Albuterol Sulfate 90 Mcg 8 Gm Inhaler INHALE Q2H PRN Shortness of Breath/Wheezing Aspirin 81 mg 01/19/21 09:00 01/23/21 07:39 Aspirin Enteric Coated 81 Mg Tablet. PO Not Given DAILY HANANE Atorvastatin Calcium 40 mg 01/18/21 21:00 01/22/21 20:24 Atorvastatin Calcium 40 Mg Tablet PO 40 mg BEDTIME [facility] Administration Carvedilol 25 mg 01/18/21 21:00 01/20/21 08:51 Carvedilol 25 Mg Tablet PO 25 mg BID [facility] Administration Protocol Cilostazol 100 mg 01/18/21 21:00 01/23/21 07:40 Cilostazol 100 Mg Tablet PO Not Given BID HANANE Cyclobenzaprine HCl 5 mg 01/19/21 10:48 01/20/21 01:49 Cyclobenzaprine Hcl 5 Mg Tablet PO 5 mg TID PRN Administration back pain Dexamethasone 6 mg 01/18/21 09:00 01/23/21 11:10 Dexamethasone 6 Mg Tablet PO 6 mg DAILY HANANE Administration Ergocalciferol 1,250 mcg 01/19/21 10:00 01/19/21 12:19 Ergocalciferol (Vitamin D2) 1,250 Mcg Capsule PO 1,250 mcg [place]@1000 HANANE Administration Furosemide 20 mg 01/19/21 09:00 01/20/21 08:51 Furosemide 20 Mg Tablet PO 20 mg DAILY HANANE Administration Protocol Gabapentin 300 mg 01/18/21 21:00 01/22/21 20:24 Gabapentin 300 Mg Capsule PO 300 mg BEDTIME HANANE Administration Heparin Sodium (Porcine) 5,000 unit 01/23/21 19:00 Heparin Sodium,Porcine 5,000 Unit/Ml Vial INTRACATH 01/23/21 19:01 ONCE ONE Hydralazine HCl 50 mg 01/18/21 15:00 01/20/21 08:51 Hydralazine Hcl 50 Mg Tablet PO 50 mg TID HANANE Administration Protocol Albumin Human 100 mls @ 200 mls/hr 01/23/21 19:00 Kedbumin 25 % IV 01/23/21 19:29 ONCE ONE Insulin Glargine 35 unit 01/19/21 21:00 01/22/21 20:25 Insulin Glargine,Hum.Rec.Anlog 100 Unit/Ml 10 Ml Vial SUBCUT 35 unit BEDTIME HANANE Administration Insulin Human Lispro 0 unit 01/18/21 07:30 01/23/21 13:17 Insulin Lispro 100 Unit/Ml 3 Ml Vial SUBCUT Not Given QIDACHS [facility] Protocol Mannitol 12.5 gm 01/23/21 19:00 Mannitol 12.5 Gm/50 Ml Vial IV 01/23/21 19:01 ONCE ONE Montelukast Sodium 10 mg 01/18/21 21:00 01/22/21 20:24 Montelukast Sodium 10 Mg Tablet PO 10 mg BEDTIME HANANE Administration Sodium Bicarbonate 1,300 mg 01/21/21 23:00 01/23/21 11:10 Sodium Bicarbonate 650 Mg Tablet PO 1,300 mg Q6H HANANE Administration Sodium Chloride 3 ml 01/18/21 00:00 01/23/21 07:47 0.9 % Sodium Chloride Flush 3 Ml Syringe IVFLUSH 3 ml QSHIFT HANANE Administration Sucralfate 2 gm 01/19/21 09:00 01/23/21 07:40 Sucralfate 1 Gm Tablet PO Not Given DAILY HANANE Labs CBC & Chem 7: 01/23/21 06:00 01/23/21 06:00 Microbiology Microbiology Results: Microbiology 01/17/21 23:05 Blood - Venous Blood Culture - Final No growth after 5 days. 01/17/21 22:32 Blood - Venous Blood Culture - Final No growth after 5 days. Assessment and Plan (1) COVID-19: Status: Acute (2) ARLEY (acute kidney injury): Status: Acute Assessment and Plan: 75yo F with DM2 with neuropathy and nephropathy, multivessel CAD, peripheral vascular disease, HTN, HLD presenting on the 9th day of symptoms from COVID-19 pneumonia admitted for hypoxia AR[place]/CKD3/. temp cath placed this morning,plan for dialysis this afternoon nephrology following. [place] cath renal ultrasound showed no hydro Hyponatremia. Sodium trending up to 122 Fluid rest 1500ml Acute hypoxic respiratory failure. Improving on 3L, continue to wean oxygen COVID-19 pneumonia dexamethasone remdesivir d/c'ed in light of worsening renal failure Asthma continue montelukast, prn albuterol. dexamethasone as above HTN continue hydralazine, carvedilol; hold lisinopril + furosemide d/t ARLEY CAD/PVD continue ASA, statin, carvedilol, cilostazol; hold lisinopril neuropathy continue gabapentin DM2, A1c 7.9 basal/bolus insulin Full Code DVT pptx, heparin Attending: Dr. Smith
[2021-01-23 17:46] LABS: Glucose, Whole Blood 81 mg/dL (60-115)
[2021-01-23 19:52] LABS: Glucose, Whole Blood 81 mg/dL (60-115)
[2021-01-23] MEDS: Montelukast Sodium 10 MG TABLET PO (21:43)
[2021-01-23] MEDS: cilostazoL 100 MG TABLET PO (21:43)
[2021-01-23] MEDS: Gabapentin 300 MG CAPSULE PO (21:43)
[2021-01-23] MEDS: Atorvastatin Calcium 40 MG TABLET PO (21:43)
--- NOTE | 2021-01-23 23:24 | PM.PNNEP ---
Subjective Subjective Date of Service: 01/23/21 Interval history: Follow-up COVID-19, renal failure Patient denies any shortness of breath, reports cough Low Urine output Physical Exam Vital Signs: Vital Signs: Last Vital Signs Temp 98.2 F 01/23/21 19:08 Pulse 76 01/23/21 19:08 Resp 20 01/23/21 19:08 BP 124/57 L 01/23/21 19:08 Pulse Ox 99 01/23/21 13:00 Body Mass Index 37.8 Const: Other: Appearing in no acute distressed lung sounds are clear to auscultation heart regular rate rhythm, clear S1, S2 positive bowel sounds, abdomen is soft, nontender neuro patient is alert x3, no focal deficits gasca catheter in place Objective Data Labs CBC & Chem 7: 01/23/21 06:00 01/23/21 06:00 Labs: Laboratory Results - last 24 hr 01/23/21 01/23/21 01/23/21 06:00 06:00 06:00 WBC 10.4 RBC 4.26 Hgb 10.5 L Hct 29.8 L MCV 70.0 L MCH 24.6 L MCHC 35.2 H RDW 14.1 Plt Count 453 H MPV 9.3 L Immature Gran % (Auto) 2.0 H Neut % (Auto) 84.0 H Lymph % (Auto) 8.1 L [place] % (Auto) 5.8 Eos % (Auto) 0.0 Baso % (Auto) 0.1 Lymph # (Auto) 0.8 L [place] # (Auto) 0.6 Eos # (Auto) 0.0 Baso # (Auto) 0.0 Abs Immat Gran (auto) 0.21 H Absolute Neuts (auto) 8.8 H Absolute Nucleated RBC 0.000 Nucleated RBC % (auto) 0.0 Sodium 122 L Potassium 4.5 Chloride 87 L Carbon Dioxide 18 L Anion Gap 22 H BUN 123 H* Creatinine 4.94 H* Estim Creat Clear Calc 10.5 Estimated GFR 9 POC Glucose Random Glucose 52 L* Calcium 7.4 L Hep Bs Antigen Negative Hep Bs Antibody NONREACTIVE 01/23/21 01/23/21 01/23/21 07:13 08:13 10:38 WBC RBC Hgb Hct MCV MCH MCHC RDW Plt Count MPV Immature Gran % (Auto) Neut % (Auto) Lymph % (Auto) [place] % (Auto) Eos % (Auto) Baso % (Auto) Lymph # (Auto) [place] # (Auto) Eos # (Auto) Baso # (Auto) Abs Immat Gran (auto) Absolute Neuts (auto) Absolute Nucleated RBC Nucleated RBC % (auto) Sodium Potassium Chloride Carbon Dioxide Anion Gap BUN Creatinine Estim Creat Clear Calc Estimated GFR POC Glucose 60 153 H 82 Random Glucose Calcium Hep Bs Antigen Hep Bs Antibody 01/23/21 01/23/21 01/23/21 11:35 13:15 17:43 WBC RBC Hgb Hct MCV MCH MCHC RDW Plt Count MPV Immature Gran % (Auto) Neut % (Auto) Lymph % (Auto) [place] % (Auto) Eos % (Auto) Baso % (Auto) Lymph # (Auto) [place] # (Auto) Eos # (Auto) Baso # (Auto) Abs Immat Gran (auto) Absolute Neuts (auto) Absolute Nucleated RBC Nucleated RBC % (auto) Sodium Potassium Chloride Carbon Dioxide Anion Gap BUN Creatinine Estim Creat Clear Calc Estimated GFR POC Glucose 72 72 81 Random Glucose Calcium Hep Bs Antigen Hep Bs Antibody 01/23/21 19:46 WBC RBC Hgb Hct MCV MCH MCHC RDW Plt Count MPV Immature Gran % (Auto) Neut % (Auto) Lymph % (Auto) [place] % (Auto) Eos % (Auto) Baso % (Auto) Lymph # (Auto) [place] # (Auto) Eos # (Auto) Baso # (Auto) Abs Immat Gran (auto) Absolute Neuts (auto) Absolute Nucleated RBC Nucleated RBC % (auto) Sodium Potassium Chloride Carbon Dioxide Anion Gap BUN Creatinine Estim Creat Clear Calc Estimated GFR POC Glucose 81 Random Glucose Calcium Hep Bs Antigen Hep Bs Antibody Microbiology Microbiology Results: Microbiology 01/17/21 23:05 Blood - Venous Blood Culture - Final No growth after 5 days. 01/17/21 22:32 Blood - Venous Blood Culture - Final No growth after 5 days. Assessment & Plan Assessment and plan (1) COVID-19: Status: Acute (2) ARLEY (acute kidney injury): Status: Acute Assessment and Plan: 1. A 75-year-old female with acute kidney injury. Acute kidney injury in this patient likely secondary to acute tubular injury due to multifactorial reasons. The patient had a creatinine of 1.4 on admission, which has increased significantly after the CAT scan/CT and likely has contrast-induced nephropathy. She also likely has COVID-induced renal damage. Obstruction needs to be ruled out on this patient. She does have proteinuria, which again could be due to COVID. 2. Chronic kidney disease stage 3 at baseline. 3. Hyponatremia- Normal osmolality 4. COVID pneumonia with diarrhea. RECOMMENDATIONS: Avoid using any nephrotoxic agents on this patient. No [place] on Renal ultrasound Fluid Restriction will d/c PO Sodium Bicarb s/p Permcath placement HD today and in AM We will continue to monitor the patient closely. Thank you Time Spent With Patient Time: Total time spent is greater than 50% in coordination of care (as documented) at patient's floor/unit and/or counseling patient:
[2021-01-24] MEDS: Sodium Bicarbonate 650 MG TABLET 1300 MG PO ×2 (00:21→05:40)
[2021-01-24] MEDS: 0.9 % Sodium Chloride Flush 3 ML SYRINGE IVFLUSH ×2 (00:22→09:36)
[2021-01-24 03:40] VITALS: BP 134/50; PULSE 85; RESP 18; TEMP 36.4; O2SAT 98
[2021-01-24] MEDS: Heparin Sodium,Porcine 5,000 UNIT/ML VIAL 5000 UNIT SUBCUT ×2 (05:39→18:08)
[2021-01-24] MEDS: Albumin Human 25 % 100 ML 200 ML IV (05:40)
[2021-01-24 05:57] LABS: Glucose, Whole Blood 51 mg/dL (60-115)
--- NOTE | 2021-01-24 06:03 | PC.NURSE ---
Addendum entered by Jessica Arciniega RN 01/24/21 06:49: POC now 117 Original Note: P: Pt stated she is concerned her POC is low. Pt asymptomatic. Checked POC and found to be 51. notified. I: Pt given juice, crackers, and cereal. E: Will recheck POC in 1hr.
[2021-01-24 06:07] LABS: HBc Num2 9.41 S/CO; HBc Num3 9.77 S/CO; Hepatitis B Core Antibody Reactive (Nonreactive)
[2021-01-24 06:48] LABS: Glucose, Whole Blood 117 mg/dL (60-115)
[2021-01-24 07:02] LABS: Hematocrit 32.2 % (37-47); Mean Corpuscular HGB Conc 34.2 g/dl (31.0-35.0); Mean Corpuscular Volume 70.3 fL (80-98); Mean Platelet Volume 9.3 fL (9.4-12.3); Platelet Count 482 X10*3/uL (160-400); Red Blood Count 4.58 X10*6/uL (4.20-5.50); White Blood Count 13.4 X10*3/uL (4.8-10.8)
[2021-01-24 07:20] LABS: Glucose, Whole Blood 80 mg/dL (60-115)
[2021-01-24 07:22] LABS: Anion Gap 16 (12-20); Blood Urea Nitrogen 60 mg/dL (9-16); Calcium 8.3 mg/dL (8.4-10.2); Carbon Dioxide 25 mmol/L (22-29); Chloride 99 mmol/L (96-108); Creatinine Clr Calc Pharmacy 23.8; Estimated Glomerular Filt Rate 22; Glucose Random 53 mg/dL (60-115); Potassium 3.9 mmol/L (3.3-5.1); Sodium 136 mmol/L (135-145)
[2021-01-24 07:50] VITALS: BP 153/69; PULSE 90; RESP 20; TEMP 35.7; O2SAT 98
[2021-01-24] MEDS: Dextrose 5 % 1,000 ML 100 ML IVCONT (09:37)
[2021-01-24] MEDS: cilostazoL 100 MG TABLET PO ×2 (09:37→20:36)
[2021-01-24] MEDS: Aspirin Enteric Coated 81 MG TABLET.DR PO (09:37)
[2021-01-24] MEDS: dexAMETHasone 6 MG TABLET PO (09:37)
[2021-01-24] MEDS: Sucralfate 1 GM TABLET 2 GM PO (09:37)
--- NOTE | 2021-01-24 11:13 | MHC.CM.PN ---
Per ROUNDS discussion, Patient is not yet medically cleared for dc (New HD, Low BS, still on O2, working on Sodium).Home/resume [facility] services is the goal for dc and CM will follow for possible need to adjust the dc plan.
[2021-01-24 11:17] VITALS: BP 166/72; PULSE 79; RESP 20; TEMP 36.2; O2SAT 100
[2021-01-24 11:29] LABS: Glucose, Whole Blood 161 mg/dL (60-115)
[2021-01-24] MEDS: Insulin Lispro 100 UNIT/ML 3 ML VIAL SUBCUT ×3 (11:52→20:36)
[2021-01-24 12:45] VITALS: BMI 37.8
--- NOTE | 2021-01-24 13:30 | HO.PM.IMPN ---
Subjective Subjective Date of Service: 01/24/21 Interval History: Seen and examined this morning Feels ?okay? not eating much. Reports a little cough, no significant shortness of breath Review of Systems Review of Systems: Yes all other systems are reviewed and are negative Constitutional Constitutional: Denies chills and Denies fever(s) Cardiovascular Cardiovascular: Denies chest pain Gastrointestinal Gastrointestinal: Denies abdominal pain Physical Exam Vital Signs: Vital Signs: Last Vital Signs Temp 97.1 F 01/24/21 11:17 Pulse 79 01/24/21 11:17 Resp 20 01/24/21 11:17 BP 166/72 H 01/24/21 11:17 Pulse Ox 100 01/24/21 11:17 Body Mass Index 37.8 Const: General: comfortable, no acute distress, alert and awake Nutritional Appearance: overweight Orientation/consciousness: patient oriented x3 HENMT: Head: Yes normocephalic and Yes atraumatic Eyes: Sclerae: sclerae normal Chest: Chest palpation & inspection: normal inspection of the chest Resp: Effort & Inspection: normal respiratory effort and no respiratory distress Cardio: Rate: regular rate Rhythm: regular rhythm GI: Palpation (GI): Soft to palpation and nontender : Other: gasca Neuro: General: patient oriented x3 Cranial nerves: Yes CN's II-XII intact bilaterally and Yes Bilaterally intact EOM present Objective Data Current Medications Generic Name Dose Route Start Last Admin Trade Name Freq PRN Reason Stop Dose Admin Acetaminophen 650 mg 01/17/21 23:52 Acetaminophen 325 Mg Tablet PO Q6H PRN Pain, Mild (Pain Scale 1-3) Albuterol Sulfate 4 puff 01/17/21 23:52 Albuterol Sulfate 90 Mcg 8 Gm Inhaler INHALE Q2H PRN Shortness of Breath/Wheezing Aspirin 81 mg 01/19/21 09:00 01/24/21 09:37 Aspirin Enteric Coated 81 Mg Tablet. PO 81 mg DAILY HANANE Administration Atorvastatin Calcium 40 mg 01/18/21 21:00 01/23/21 21:43 Atorvastatin Calcium 40 Mg Tablet PO 40 mg BEDTIME HANANE Administration Carvedilol 25 mg 01/18/21 21:00 01/20/21 08:51 Carvedilol 25 Mg Tablet PO 25 mg BID HANANE Administration Protocol Cilostazol 100 mg 01/18/21 21:00 01/24/21 09:37 Cilostazol 100 Mg Tablet PO 100 mg BID HANANE Administration Cyclobenzaprine HCl 5 mg 01/19/21 10:48 01/20/21 01:49 Cyclobenzaprine Hcl 5 Mg Tablet PO 5 mg TID PRN Administration back pain Dexamethasone 6 mg 01/18/21 09:00 01/24/21 09:37 Dexamethasone 6 Mg Tablet PO 6 mg DAILY HANANE Administration Ergocalciferol 1,250 mcg 01/19/21 10:00 01/19/21 12:19 Ergocalciferol (Vitamin D2) 1,250 Mcg Capsule PO 1,250 mcg [place]@1000 HANANE Administration Furosemide 20 mg 01/19/21 09:00 01/20/21 08:51 Furosemide 20 Mg Tablet PO 20 mg DAILY HANANE Administration Protocol Gabapentin 300 mg 01/18/21 21:00 01/23/21 21:43 Gabapentin 300 Mg Capsule PO 300 mg BEDTIME HANANE Administration Heparin Sodium (Porcine) 5,000 unit 01/23/21 18:00 01/24/21 05:39 Heparin Sodium,Porcine 5,000 Unit/Ml Vial SUBCUT 5,000 unit Q12H HANANE Administration Hydralazine HCl 50 mg 01/18/21 15:00 01/20/21 08:51 Hydralazine Hcl 50 Mg Tablet PO 50 mg TID [facility] Administration Protocol Dextrose 1,000 mls @ 100 mls/hr 01/24/21 09:00 01/24/21 09:37 D5w IVCONT 01/24/21 18:59 100 mls/hr .Q10H ONE Administration Insulin Glargine 25 unit 01/24/21 21:00 Insulin Glargine,Hum.Rec.Anlog 100 Unit/Ml 10 Ml Vial SUBCUT BEDTIME [facility] Insulin Human Lispro 0 unit 01/18/21 07:30 01/24/21 11:52 Insulin Lispro 100 Unit/Ml 3 Ml Vial SUBCUT 4 unit QIDACHS [facility] Administration Protocol Montelukast Sodium 10 mg 01/18/21 21:00 01/23/21 21:43 Montelukast Sodium 10 Mg Tablet PO 10 mg BEDTIME HANANE Administration Sodium Chloride 3 ml 01/18/21 00:00 01/24/21 09:36 0.9 % Sodium Chloride Flush 3 Ml Syringe IVFLUSH 3 ml QSHIFT [facility] Administration Sucralfate 2 gm 01/19/21 09:00 01/24/21 09:37 Sucralfate 1 Gm Tablet PO 2 gm DAILY HANANE Administration Labs CBC & Chem 7: 01/24/21 05:48 01/24/21 05:48 Microbiology Microbiology Results: Microbiology 01/17/21 23:05 Blood - Venous Blood Culture - Final No growth after 5 days. 01/17/21 22:32 Blood - Venous Blood Culture - Final No growth after 5 days. Assessment and Plan (1) ARLEY (acute kidney injury): Status: Acute (2) COVID-19: Status: Acute Assessment and Plan: 75yo F with DM2 with neuropathy and nephropathy, multivessel CAD, peripheral vascular disease, HTN, HLD presenting on the 9th day of symptoms from COVID-19 pneumonia admitted for hypoxia ARLEY/CKD3 Related to acute tubular injury due to multiple reasons including contrast, COVID renal ultrasound showed no hydro temp cath placed 01/23, had HD 01/23 nephrology following. [place] cath -d/c sodium bicarb Hyponatremia. Sodium trending up to 136 Nephrology recommend D5W x 1L Continue Fluid rest 1500ml -follow BMP daily Acute hypoxic respiratory failure. Improving on 3L, continue to wean oxygen as tolerated COVID-19 pneumonia dexamethasone day 04/12 remdesivir d/c'ed in light of worsening renal failure Asthma continue montelukast, prn albuterol. dexamethasone as above HTN continue hydralazine, carvedilol; hold lisinopril + furosemide d/t ARLEY CAD/PVD continue ASA, statin, carvedilol, cilostazol; hold lisinopril neuropathy continue gabapentin DM2, A1c 7.9 basal/bolus insulin Full Code DVT pptx, heparin Attending: Dr. Smith
[2021-01-24 17:15] VITALS: BP 167/70; PULSE 81; RESP 19; TEMP 36.1; O2SAT 98
[2021-01-24 17:26] LABS: Glucose, Whole Blood 192 mg/dL (60-115)
[2021-01-24 18:00] VITALS: BMI 37.8
[2021-01-24 19:22] VITALS: BP 195/80; PULSE 91; RESP 19; TEMP 35.9; O2SAT 99
[2021-01-24 19:36] LABS: Glucose, Whole Blood 280 mg/dL (60-115)
[2021-01-24] MEDS: Gabapentin 300 MG CAPSULE PO (20:36)
[2021-01-24] MEDS: hydrALAZINE HCl 50 MG TABLET PO (20:36)
[2021-01-24] MEDS: Atorvastatin Calcium 40 MG TABLET PO (20:36)
[2021-01-24] MEDS: Montelukast Sodium 10 MG TABLET PO (20:36)
[2021-01-24] MEDS: Insulin Glargine,Hum.rec.anlog 100 UNIT/ML 10 ML VIAL 25 UNIT SUBCUT (20:37)
[2021-01-24] MEDS: carvediloL 25 MG TABLET PO (21:11)
--- NOTE | 2021-01-24 22:04 | PM.PNNEP ---
Subjective Subjective Date of Service: 01/24/21 Interval history: Seen and examined this PM on HD SOB and cough + Physical Exam Vital Signs: Vital Signs: Last Vital Signs Temp 96.7 F L 01/24/21 19:22 Pulse 91 01/24/21 19:22 Resp 19 01/24/21 19:22 BP 195/80 H 01/24/21 19:22 Pulse Ox 99 01/24/21 19:22 Body Mass Index 37.8 Const: Other: Appearing in no acute distressed lung sounds are clear to auscultation heart regular rate rhythm, clear S1, S2 positive bowel sounds, abdomen is soft, nontender neuro patient is alert x3, no focal deficits gasca catheter in place Objective Data Labs CBC & Chem 7: 01/24/21 05:48 01/24/21 05:48 Labs: Laboratory Results - last 24 hr 01/23/21 01/24/21 01/24/21 06:00 05:44 05:48 WBC 13.4 H RBC 4.58 Hgb 11.0 L Hct 32.2 L MCV 70.3 L MCH 24.0 L MCHC 34.2 RDW 14.0 Plt Count 482 H MPV 9.3 L Absolute Nucleated RBC 0.000 Nucleated RBC % (auto) 0.0 Sodium Potassium Chloride Carbon Dioxide Anion Gap BUN Creatinine Estim Creat Clear Calc Estimated GFR POC Glucose 51 L* Random Glucose Calcium Hep B Core Total Ab Reactive 01/24/21 01/24/21 01/24/21 05:48 06:44 07:14 WBC RBC Hgb Hct MCV MCH MCHC RDW Plt Count MPV Absolute Nucleated RBC Nucleated RBC % (auto) Sodium 136 Potassium 3.9 Chloride 99 Carbon Dioxide 25 Anion Gap 16 BUN 60 H D Creatinine 2.17 H Estim Creat Clear Calc 23.8 Estimated GFR 22 POC Glucose 117 H 80 Random Glucose 53 L* Calcium 8.3 L D Hep B Core Total Ab 01/24/21 01/24/21 01/24/21 11:18 17:20 19:25 WBC RBC Hgb Hct MCV MCH MCHC RDW Plt Count MPV Absolute Nucleated RBC Nucleated RBC % (auto) Sodium Potassium Chloride Carbon Dioxide Anion Gap BUN Creatinine Estim Creat Clear Calc Estimated GFR POC Glucose 161 H 192 H 280 H Random Glucose Calcium Hep B Core Total Ab Microbiology Microbiology Results: Microbiology 01/17/21 23:05 Blood - Venous Blood Culture - Final No growth after 5 days. 01/17/21 22:32 Blood - Venous Blood Culture - Final No growth after 5 days. Assessment & Plan Assessment and plan (1) ARLEY (acute kidney injury): Status: Acute (2) COVID-19: Status: Acute Assessment and Plan: 1. A 75-year-old female with acute kidney injury. Acute kidney injury in this patient likely secondary to acute tubular injury due to multifactorial reasons. The patient had a creatinine of 1.4 on admission, which has increased significantly after the CAT scan/CT and likely has contrast-induced nephropathy. She also likely has COVID-induced renal damage. Obstruction needs to be ruled out on this patient. She does have proteinuria, which again could be due to COVID. 2. Chronic kidney disease stage 3 at baseline. 3. Hyponatremia- Normal osmolality 4. COVID pneumonia with diarrhea. RECOMMENDATIONS: Contineu HD Pt making urine - Hold HD in AM Watch for recovery Avoid using any nephrotoxic agents on this patient. No [place] on Renal ultrasound Fluid Restriction COVID Rx as per medical team We will continue to monitor the patient closely. Thank you Time Spent With Patient Time: Total time spent is greater than 50% in coordination of care (as documented) at patient's floor/unit and/or counseling patient:
[2021-01-25] VITALS (12 sets, daily range): BP systolic 119–179; BP diastolic 58–79; PULSE 68–81; RESP 18–20; TEMP 35.9–36.6; O2SAT 97–100
[2021-01-25] MEDS: 0.9 % Sodium Chloride Flush 3 ML SYRINGE IVFLUSH ×4 (00:20→23:54)
[2021-01-25] MEDS: Heparin Sodium,Porcine 5,000 UNIT/ML VIAL 5000 UNIT SUBCUT ×2 (05:43→17:24)
[2021-01-25 06:53] LABS: Hematocrit 28.2 % (37-47); Hemoglobin 9.6 g/dl (12.0-16.0); Mean Corpuscular Hemoglobin 24.6 pg (27.0-33.0); Mean Corpuscular Volume 72.3 fL (80-98); Mean Platelet Volume 9.3 fL (9.4-12.3); Platelet Count 358 X10*3/uL (160-400); Red Cell Distribution Width 14.3 % (11.0-16.0); White Blood Count 13.6 X10*3/uL (4.8-10.8)
[2021-01-25 07:49] LABS: Glucose, Whole Blood 49 mg/dL (60-115)
[2021-01-25 07:51] LABS: Anion Gap 10 (12-20); Blood Urea Nitrogen 28 mg/dL (9-16); Calcium 8.4 mg/dL (8.4-10.2); Carbon Dioxide 30 mmol/L (22-29); Chloride 102 mmol/L (96-108); Creatinine Clr Calc Pharmacy 44.6; Estimated Glomerular Filt Rate 46; Glucose Random 51 mg/dL (60-115); Potassium 3.8 mmol/L (3.3-5.1); Sodium 138 mmol/L (135-145)
[2021-01-25 08:58] LABS: Glucose, Whole Blood 159 mg/dL (60-115)
[2021-01-25 09:01] LABS: Hepatitis B Core Antibody IgM NON-REACTIVE (NON-REACTIVE)
[2021-01-25] MEDS: cilostazoL 100 MG TABLET PO ×2 (09:26→22:22)
[2021-01-25] MEDS: dexAMETHasone 6 MG TABLET PO (09:26)
[2021-01-25] MEDS: Aspirin Enteric Coated 81 MG TABLET.DR PO (09:26)
[2021-01-25] MEDS: Sucralfate 1 GM TABLET 2 GM PO (09:27)
[2021-01-25] MEDS: hydrALAZINE HCl 50 MG TABLET PO ×3 (09:28→22:24)
[2021-01-25] MEDS: carvediloL 25 MG TABLET PO ×2 (09:29→22:23)
--- NOTE | 2021-01-25 09:51 | P.PNIM_ITS ---
Subjective Subjective Date of Service: 01/25/21 <YASMIN Almanza - Last Filed: 01/25/21 10:01> 01/25/21 <Adam Juarez MD - Last Filed: 01/25/21 17:01> Interval History: follow up for ARLEY, covid 19 Feeling hypoglycemia this am, blood sugar check, low at 51, given dextrose Denies shortness of breath, cough improving. <YASMIN Almanza - Last Filed: 01/25/21 10:01> Review of Systems Review of Systems: Yes all other systems are reviewed and are negative <YASMIN Almanza Last Filed: 01/25/21 10:01> Constitutional Constitutional: Denies chills and Denies fever(s) <YASMIN Almanza Last Filed: 01/25/21 10:01> Cardiovascular Cardiovascular: Denies chest pain <YASMIN Almanza Last Filed: 01/25/21 10:01> Gastrointestinal Gastrointestinal: Denies abdominal pain <YASMIN Almanza Last Filed: 01/25/21 10:01> Physical Exam Vital Signs: Vital Signs: Last Vital Signs Temp 96.7 F L 01/25/21 08:00 Pulse 70 01/25/21 09:29 Resp 18 01/25/21 08:00 BP 138/65 01/25/21 09:29 Pulse Ox 98 01/25/21 08:00 Body Mass Index 37.8 <YASMIN Almanza Last Filed: 01/25/21 10:01> Const: Nutritional Appearance: overweight <YASMIN Almanza Last Filed: 01/25/21 10:01> Orientation/consciousness: patient oriented x3 <YASMIN Almanza Last Filed: 01/25/21 10:01> HENMT: Head: Yes normocephalic and Yes atraumatic <YASMIN Almanza Last Filed: 01/25/21 10:01> Eyes: Sclerae: sclerae normal <YASMIN Almanza Last Filed: 01/25/21 10:01> Chest: Chest palpation & inspection: normal inspection of the chest <YASMIN Almanza Last Filed: 01/25/21 10:01> Resp: Effort & Inspection: normal respiratory effort and no respiratory distress <YASMIN Almanza Last Filed: 01/25/21 10:01> Cardio: Rate: regular rate <YASMIN Almanza Last Filed: 01/25/21 10:01> Rhythm: regular rhythm <YASMIN Almanza - Last Filed: 01/25/21 10:01> GI: Palpation (GI): Soft to palpation and nontender <YASMIN Almanza Last Filed: 01/25/21 10:01> : Other: gasca <YASMIN Almanza - Last Filed: 01/25/21 10:01> Neuro: General: patient oriented x3 <YASMIN Almanza Last Filed: 01/25/21 10:01> Cranial nerves: Yes CN's II-XII intact bilaterally and Yes Bilaterally intact EOM present <YASMIN Almanza Last Filed: 01/25/21 10:01> Objective Data Current Medications Generic Name Dose Route Start Last Admin Trade Name Freq PRN Reason Stop Dose Admin Acetaminophen 650 mg 01/17/21 23:52 Acetaminophen 325 Mg Tablet PO Q6H PRN Pain, Mild (Pain Scale 1-3) Albuterol Sulfate 4 puff 01/17/21 23:52 Albuterol Sulfate 90 Mcg 8 Gm Inhaler INHALE Q2H PRN Shortness of Breath/Wheezing Aspirin 81 mg 01/19/21 09:00 01/25/21 09:26 Aspirin Enteric Coated 81 Mg Tablet.Dr PO 81 mg DAILY HANANE Administration Atorvastatin Calcium 40 mg 01/18/21 21:00 01/24/21 20:36 Atorvastatin Calcium 40 Mg Tablet PO 40 mg BEDTIME HANANE Administration Carvedilol 25 mg 01/18/21 21:00 01/25/21 09:29 Carvedilol 25 Mg Tablet PO 25 mg BID HANANE Administration Protocol Cilostazol 100 mg 01/18/21 21:00 01/25/21 09:26 Cilostazol 100 Mg Tablet PO 100 mg BID HANANE Administration Cyclobenzaprine HCl 5 mg 01/19/21 10:48 01/20/21 01:49 Cyclobenzaprine Hcl 5 Mg Tablet PO 5 mg TID PRN Administration back pain Dexamethasone 6 mg 01/18/21 09:00 01/25/21 09:26 Dexamethasone 6 Mg Tablet PO 6 mg DAILY HANANE Administration Ergocalciferol 1,250 mcg 01/19/21 10:00 01/19/21 12:19 Ergocalciferol (Vitamin D2) 1,250 Mcg Capsule PO 1,250 mcg [place]@1000 HANANE Administration Furosemide 20 mg 01/19/21 09:00 01/20/21 08:51 Furosemide 20 Mg Tablet PO 20 mg DAILY HANANE Administration Protocol Gabapentin 300 mg 01/18/21 21:00 01/24/21 20:36 Gabapentin 300 Mg Capsule PO 300 mg BEDTIME HANANE Administration Heparin Sodium (Porcine) 5,000 unit 01/23/21 18:00 01/25/21 05:43 Heparin Sodium,Porcine 5,000 Unit/Ml Vial SUBCUT 5,000 unit Q12H HANANE Administration Hydralazine HCl 50 mg 01/18/21 15:00 01/25/21 09:28 Hydralazine Hcl 50 Mg Tablet PO 50 mg TID [facility] Administration Protocol Insulin Glargine 10 unit 01/25/21 21:00 Insulin Glargine,Hum.Rec.Anlog 100 Unit/Ml 10 Ml Vial SUBCUT BEDTIME [facility] Insulin Human Lispro 0 unit 01/18/21 07:30 01/25/21 09:08 Insulin Lispro 100 Unit/Ml 3 Ml Vial SUBCUT Not Given QIDACHS [facility] Protocol Montelukast Sodium 10 mg 01/18/21 21:00 01/24/21 20:36 Montelukast Sodium 10 Mg Tablet PO 10 mg BEDTIME HANANE Administration Sodium Chloride 3 ml 01/18/21 00:00 01/25/21 08:07 0.9 % Sodium Chloride Flush 3 Ml Syringe IVFLUSH 3 ml QSHIFT [facility] Administration Sucralfate 2 gm 01/19/21 09:00 01/25/21 09:27 Sucralfate 1 Gm Tablet PO 2 gm DAILY HANANE Administration <YASMIN Almanza - Last Filed: 01/25/21 10:01> Labs CBC & Chem 7: : 01/25/21 05:59 01/25/21 05:59 <YASMIN Almanza - Last Filed: 01/25/21 10:01> Microbiology Microbiology Results: Microbiology 01/17/21 23:05 Blood - Venous Blood Culture - Final No growth after 5 days. 01/17/21 22:32 Blood - Venous Blood Culture - Final No growth after 5 days. <YASMIN Almanza - Last Filed: 01/25/21 10:01> Assessment and Plan (1) ARLEY (acute kidney injury): Status: Acute <YASMIN Almanza - Last Filed: 01/25/21 10:01> (2) COVID-19: Status: Acute <YASMIN Almanza - Last Filed: 01/25/21 10:01> Assessment and Plan: 75yo F with DM2 with neuropathy and nephropathy, multivessel CAD, peripheral vascular disease, HTN, HLD presenting on the 9th day of symptoms from COVID-19 pneumonia admitted for hypoxia ARLEY/CKD3. SCr down to 1.16 today Related to acute tubular injury due to multiple reasons including contrast, COVID renal ultrasound showed no hydro temp cath placed 01/23, had HD 01/23, 01/24 nephrology following. [place] cath DM2, A1c 7.9 Hypoglycemia this am, will decrease Lantus -SSI, POCs, ADA diet Hyponatremia. Resolved Continue Fluid rest 1500ml Acute hypoxic respiratory failure. r/t covid 19. Improving on 3L, continue to wean oxygen as tolerated COVID-19 pneumonia dexamethasone day 05/13 remdesivir d/c'ed in light of worsening renal failure Asthma continue montelukast, prn albuterol. dexamethasone as above HTN continue hydralazine, carvedilol; hold lisinopril + furosemide d/t ARLEY CAD/PVD continue ASA, statin, carvedilol, cilostazol; hold lisinopril neuropathy continue gabapentin Full Code DVT pptx, heparin Attending: Dr. uJarez <YASMIN Almanza - Last Filed: 01/25/21 10:01>
[2021-01-25 11:54] LABS: Glucose, Whole Blood 156 mg/dL (60-115)
[2021-01-25 16:11] LABS: Glucose, Whole Blood 221 mg/dL (60-115)
[2021-01-25] MEDS: Insulin Lispro 100 UNIT/ML 3 ML VIAL SUBCUT ×2 (16:36→22:25)
[2021-01-25] MEDS: amLODIPine Besylate 5 MG TABLET PO (17:24)
[2021-01-25 20:03] LABS: Glucose, Whole Blood 267 mg/dL (60-115)
--- NOTE | 2021-01-25 21:45 | PM.PNNEP ---
Subjective Subjective Date of Service: 01/25/21 Interval history: Feels better Making urine . Physical Exam Vital Signs: Vital Signs: Last Vital Signs Temp 97.9 F 01/25/21 19:15 Pulse 81 01/25/21 19:15 Resp 20 01/25/21 19:15 BP 163/76 H 01/25/21 19:15 Pulse Ox 97 01/25/21 19:15 Body Mass Index 37.8 Const: Other: Appearing in no acute distressed lung sounds are clear to auscultation heart regular rate rhythm, clear S1, S2 positive bowel sounds, abdomen is soft, nontender neuro patient is alert x3, no focal deficits gasca catheter in place Objective Data Labs CBC & Chem 7: 01/25/21 05:59 01/25/21 05:59 Labs: Laboratory Results - last 24 hr 01/23/21 01/25/21 01/25/21 06:00 05:59 05:59 WBC 13.6 H RBC 3.90 L Hgb 9.6 L Hct 28.2 L MCV 72.3 L MCH 24.6 L MCHC 34.0 RDW 14.3 Plt Count 358 D MPV 9.3 L Absolute Nucleated RBC 0.000 Nucleated RBC % (auto) 0.0 Sodium 138 Potassium 3.8 Chloride 102 Carbon Dioxide 30 H Anion Gap 10 L BUN 28 H D Creatinine 1.16 Estim Creat Clear Calc 44.6 Estimated GFR 46 POC Glucose Random Glucose 51 L* Calcium 8.4 Hep B Core IgM Ab NON-REACTIVE 01/25/21 01/25/21 01/25/21 07:44 08:48 11:50 WBC RBC Hgb Hct MCV MCH MCHC RDW Plt Count MPV Absolute Nucleated RBC Nucleated RBC % (auto) Sodium Potassium Chloride Carbon Dioxide Anion Gap BUN Creatinine Estim Creat Clear Calc Estimated GFR POC Glucose 49 L* 159 H 156 H Random Glucose Calcium Hep B Core IgM Ab 01/25/21 01/25/21 16:08 19:59 WBC RBC Hgb Hct MCV MCH MCHC RDW Plt Count MPV Absolute Nucleated RBC Nucleated RBC % (auto) Sodium Potassium Chloride Carbon Dioxide Anion Gap BUN Creatinine Estim Creat Clear Calc Estimated GFR POC Glucose 221 H 267 H Random Glucose Calcium Hep B Core IgM Ab Microbiology Microbiology Results: Microbiology 01/17/21 23:05 Blood - Venous Blood Culture - Final No growth after 5 days. 01/17/21 22:32 Blood - Venous Blood Culture - Final No growth after 5 days. Assessment & Plan Assessment and plan (1) ARLEY (acute kidney injury): Status: Acute (2) COVID-19: Status: Acute Assessment and Plan: 1. A 75-year-old female with acute kidney injury. Acute kidney injury in this patient likely secondary to acute tubular injury due to multifactorial reasons. The patient had a creatinine of 1.4 on admission, which has increased significantly after the CAT scan/CT and likely has contrast-induced nephropathy. She also likely has COVID-induced renal damage. Obstruction needs to be ruled out on this patient. She does have proteinuria, which again could be due to COVID. 2. Chronic kidney disease stage 3 at baseline. 3. Hyponatremia- Normal osmolality 4. COVID pneumonia with diarrhea. RECOMMENDATIONS: Had HD x 2 Hold HD today Pt making urine Watch for recovery Avoid using any nephrotoxic agents on this patient. No [place] on Renal ultrasound Fluid Restriction COVID Rx as per medical team We will continue to monitor the patient closely. Time Spent With Patient Time: Total time spent is greater than 50% in coordination of care (as documented) at patient's floor/unit and/or counseling patient:
[2021-01-25] MEDS: Montelukast Sodium 10 MG TABLET PO (22:23)
[2021-01-25] MEDS: Gabapentin 300 MG CAPSULE PO (22:23)
[2021-01-25] MEDS: Atorvastatin Calcium 40 MG TABLET PO (22:25)
[2021-01-25] MEDS: Insulin Glargine,Hum.rec.anlog 100 UNIT/ML 10 ML VIAL 10 UNIT SUBCUT (22:26)
[2021-01-26] VITALS (11 sets, daily range): BP systolic 138–161; BP diastolic 60–75; PULSE 67–79; RESP 18–20; TEMP 35.7–37; O2SAT 93–100
[2021-01-26] MEDS: Heparin Sodium,Porcine 5,000 UNIT/ML VIAL 5000 UNIT SUBCUT ×2 (05:17→18:24)
[2021-01-26 07:12] LABS: Anion Gap 12 (12-20); Blood Urea Nitrogen 32 mg/dL (9-16); Calcium 8.3 mg/dL (8.4-10.2); Carbon Dioxide 27 mmol/L (22-29); Chloride 98 mmol/L (96-108); Creatinine Clr Calc Pharmacy 45.8; Estimated Glomerular Filt Rate 47; Glucose Random 182 mg/dL (60-115); Potassium 4.3 mmol/L (3.3-5.1); Sodium 133 mmol/L (135-145)
[2021-01-26 07:22] LABS: Glucose, Whole Blood 190 mg/dL (60-115)
[2021-01-26] MEDS: Sucralfate 1 GM TABLET 2 GM PO (08:01)
[2021-01-26] MEDS: Insulin Lispro 100 UNIT/ML 3 ML VIAL SUBCUT ×4 (08:02→21:11)
[2021-01-26] MEDS: hydrALAZINE HCl 50 MG TABLET PO ×3 (08:02→21:09)
[2021-01-26] MEDS: cilostazoL 100 MG TABLET PO ×2 (08:02→21:08)
[2021-01-26] MEDS: dexAMETHasone 6 MG TABLET PO (08:02)
[2021-01-26] MEDS: amLODIPine Besylate 5 MG TABLET PO (08:02)
[2021-01-26] MEDS: carvediloL 25 MG TABLET PO ×2 (08:02→21:09)
[2021-01-26] MEDS: Aspirin Enteric Coated 81 MG TABLET.DR PO (08:02)
[2021-01-26] MEDS: 0.9 % Sodium Chloride Flush 3 ML SYRINGE IVFLUSH ×2 (08:04→16:26)
[2021-01-26] MEDS: Ergocalciferol (Vitamin D2) 1,250 MCG CAPSULE 1250 MCG PO (08:23)
[2021-01-26 11:23] LABS: Glucose, Whole Blood 252 mg/dL (60-115)
--- NOTE | 2021-01-26 11:30 | HO.PM.IMPN ---
Subjective Subjective Date of Service: 01/26/21 <YASMIN Almanza - Last Filed: 01/26/21 11:41> 01/26/21 <Adam Juarez MD - Last Filed: 01/26/21 12:53> Interval History: follow up covid/renal failure seen and examined this morning cough improving, no sob, feeling tired <YASMIN Almanza - Last Filed: 01/26/21 11:41> Review of Systems Review of Systems: Yes all other systems are reviewed and are negative <YASMIN Almanza - Last Filed: 01/26/21 11:41> Constitutional Constitutional: Denies chills and Denies fever(s) <YASMIN Almanza - Last Filed: 01/26/21 11:41> Cardiovascular Cardiovascular: Denies chest pain <YASMIN Almanza - Last Filed: 01/26/21 11:41> Gastrointestinal Gastrointestinal: Denies abdominal pain <YASMIN Almanza - Last Filed: 01/26/21 11:41> Physical Exam Vital Signs: Vital Signs: Last Vital Signs Temp 96.3 F L 01/26/21 07:54 Pulse 67 01/26/21 08:02 Resp 18 01/26/21 07:54 BP 145/65 H 01/26/21 08:02 Pulse Ox 100 01/26/21 07:54 Body Mass Index 37.8 <YASMIN Almanza - Last Filed: 01/26/21 11:41> Const: General: comfortable, no acute distress, alert and awake <YASMIN Almanza - Last Filed: 01/26/21 11:41> Nutritional Appearance: overweight <YASMIN Almanza - Last Filed: 01/26/21 11:41> Orientation/consciousness: patient oriented x3 <YASMIN Almanza - Last Filed: 01/26/21 11:41> HENMT: Head: Yes normocephalic and Yes atraumatic <YASMIN Almanza Last Filed: 01/26/21 11:41> Eyes: Sclerae: sclerae normal <YASMIN Almanza Last Filed: 01/26/21 11:41> Chest: Chest palpation & inspection: normal inspection of the chest <YASMIN Almanza Last Filed: 01/26/21 11:41> Resp: Effort & Inspection: normal respiratory effort and no respiratory distress <YASMIN Almanza Last Filed: 01/26/21 11:41> Cardio: Rate: regular rate <YASMIN Almanza Last Filed: 01/26/21 11:41> Rhythm: regular rhythm <YASMIN Almanza Last Filed: 01/26/21 11:41> GI: Palpation (GI): Soft to palpation and nontender <YASMIN Almanza Last Filed: 01/26/21 11:41> : Other: gasca <YSAMIN Almanza Last Filed: 01/26/21 11:41> Neuro: General: patient oriented x3 <YASMIN Almanza Last Filed: 01/26/21 11:41> Cranial nerves: Yes CN's II-XII intact bilaterally and Yes Bilaterally intact EOM present <YASMIN Almanza Last Filed: 01/26/21 11:41> Objective Data Current Medications Generic Name Dose Route Start Last Admin Trade Name Jerzyq PRN Reason Stop Dose Admin Acetaminophen 650 mg 01/17/21 23:52 Acetaminophen 325 Mg Tablet PO Q6H PRN Pain, Mild (Pain Scale 1-3) Albuterol Sulfate 4 puff 01/17/21 23:52 Albuterol Sulfate 90 Mcg 8 Gm Inhaler INHALE Q2H PRN Shortness of Breath/Wheezing Amlodipine Besylate 5 mg 01/25/21 16:40 01/26/21 08:02 Amlodipine Besylate 5 Mg Tablet PO 5 mg DAILY HANANE Administration Protocol Aspirin 81 mg 01/19/21 09:00 01/26/21 08:02 Aspirin Enteric Coated 81 Mg Tablet.Dr PO 81 mg DAILY HANANE Administration Atorvastatin Calcium 40 mg 01/18/21 21:00 01/25/21 22:25 Atorvastatin Calcium 40 Mg Tablet PO 40 mg BEDTIME HANANE Administration Carvedilol 25 mg 01/18/21 21:00 01/26/21 08:02 Carvedilol 25 Mg Tablet PO 25 mg BID HANANE Administration Protocol Cilostazol 100 mg 01/18/21 21:00 01/26/21 08:02 Cilostazol 100 Mg Tablet PO 100 mg BID HANANE Administration Cyclobenzaprine HCl 5 mg 01/19/21 10:48 01/20/21 01:49 Cyclobenzaprine Hcl 5 Mg Tablet PO 5 mg TID PRN Administration back pain Dexamethasone 6 mg 01/18/21 09:00 01/26/21 08:02 Dexamethasone 6 Mg Tablet PO 6 mg DAILY HANANE Administration Ergocalciferol 1,250 mcg 01/19/21 10:00 01/26/21 08:23 Ergocalciferol (Vitamin D2) 1,250 Mcg Capsule PO 1,250 mcg Dubon@1000 HANANE Administration Furosemide 20 mg 01/19/21 09:00 01/20/21 08:51 Furosemide 20 Mg Tablet PO 20 mg DAILY HANANE Administration Protocol Gabapentin 300 mg 01/18/21 21:00 01/25/21 22:23 Gabapentin 300 Mg Capsule PO 300 mg BEDTIME HANANE Administration Heparin Sodium (Porcine) 5,000 unit 01/23/21 18:00 01/26/21 05:17 Heparin Sodium,Porcine 5,000 Unit/Ml Vial SUBCUT 5,000 unit Q12H HANANE Administration Hydralazine HCl 50 mg 01/18/21 15:00 01/26/21 08:02 Hydralazine Hcl 50 Mg Tablet PO 50 mg TID HANANE Administration Protocol Insulin Glargine 10 unit 01/25/21 21:00 01/25/21 22:26 Insulin Glargine,Hum.Rec.Anlog 100 Unit/Ml 10 Ml Vial SUBCUT 10 unit BEDTIME HANANE Administration Insulin Human Lispro 0 unit 01/25/21 16:30 01/26/21 08:02 Insulin Lispro 100 Unit/Ml 3 Ml Vial SUBCUT 2 unit QIDACHS ON LICENSE OF [facility] Administration Protocol Montelukast Sodium 10 mg 01/18/21 21:00 01/25/21 22:23 Montelukast Sodium 10 Mg Tablet PO 10 mg BEDTIME HANANE Administration Sodium Chloride 3 ml 01/18/21 00:00 01/26/21 08:04 0.9 % Sodium Chloride Flush 3 Ml Syringe IVFLUSH 3 ml QSHIFT HANANE Administration Sucralfate 2 gm 01/19/21 09:00 01/26/21 08:01 Sucralfate 1 Gm Tablet PO 2 gm DAILY HANANE Administration <Christianne L Lon, PA - Last Filed: 01/26/21 11:41> Labs CBC & Chem 7: : 01/25/21 05:59 01/26/21 05:30 <YASMIN Almanza - Last Filed: 01/26/21 11:41> Microbiology Microbiology Results: Microbiology 01/17/21 23:05 Blood - Venous Blood Culture - Final No growth after 5 days. 01/17/21 22:32 Blood - Venous Blood Culture - Final No growth after 5 days. <YASMIN Almanza - Last Filed: 01/26/21 11:41> Assessment and Plan (1) ARLEY (acute kidney injury): Status: Acute <YASMIN Almanza - Last Filed: 01/26/21 11:41> (2) COVID-19: Status: Acute <YASMIN Almanza - Last Filed: 01/26/21 11:41> Assessment and Plan: 75yo F with DM2 with neuropathy and nephropathy, multivessel CAD, peripheral vascular disease, HTN, HLD presenting on the 9th day of symptoms from COVID-19 pneumonia admitted for hypoxia ARLEY/CKD3. SCr stable with no HD yesterday Related to acute tubular injury due to multiple reasons including contrast, COVID renal ultrasound showed no hydro temp cath placed 01/23, had HD 01/23, 01/24 nephrology following. Lasix/lisinopril have been on hold -Remove G[place]a cath DM2, A1c 7.9 Dose of Lantus decreased due to AM hypoglycemia yesterday. improved this am -SSI, POCs, ADA diet Acute hypoxic respiratory failure. r/t covid 19. Improving on 1-2L at rest, continue to wean oxygen as tolerated -becomes more hypoxic with activity may need home o2 eval prior to d/c COVID-19 pneumonia -dexamethasone, 10 days to end 01/27 -remdesivir d/c'ed in light of worsening renal failure Hyponatremia. Resolved Continue Fluid rest 1500ml Asthma continue montelukast, prn albuterol. dexamethasone as above HTN Blood pressure had been trending up, better this am -Continue Norvasc (added 01/25) -continue hydralazine, carvedilol -hold lisinopril + furosemide d/t ARLEY CAD/PVD continue ASA, statin, carvedilol, cilostazol; hold lisinopril neuropathy continue gabapentin Disposition: will likely require SNF currently 2 assist, PT eval pending. may need home o2 eval prior to d/c Full Code DVT pptx, heparin Attending: Dr. Juarez <YASMIN Almanza - Last Filed: 01/26/21 11:41>
[2021-01-26 16:17] LABS: Glucose, Whole Blood 206 mg/dL (60-115)
--- NOTE | 2021-01-26 16:51 | PC.NURSE ---
BRIZUELA CATHETER REMOVED TODAY PER MD. WEANED PATIENT TO ROOM AIR. OOB CHAIR. ACTUALLY SLEEPS IN THE RECLINER AT NIGHT WELL DUE TO SOME GAS DISCOMFORT AT BASELINE.2 ASSIST BUT DIFFICULTY WITH WALKING. PT CRISTINA IN THE AM. UPDATED DAUGHTER OVER THE PHONE.
[2021-01-26 21:01] LABS: Glucose, Whole Blood 288 mg/dL (60-115)
[2021-01-26] MEDS: Atorvastatin Calcium 40 MG TABLET PO (21:07)
[2021-01-26] MEDS: Montelukast Sodium 10 MG TABLET PO (21:08)
[2021-01-26] MEDS: Gabapentin 300 MG CAPSULE PO (21:08)
[2021-01-26] MEDS: Insulin Glargine,Hum.rec.anlog 100 UNIT/ML 10 ML VIAL 10 UNIT SUBCUT (21:10)
--- NOTE | 2021-01-26 23:04 | PM.PNNEP ---
Subjective Subjective Date of Service: 01/26/21 Interval history: follow up covid/renal failure seen and examined this morning Improved Non oliguric Physical Exam Vital Signs: Vital Signs: Last Vital Signs Temp 98.4 F 01/26/21 19:17 Pulse 75 01/26/21 21:09 Resp 20 01/26/21 19:17 BP 160/75 H 01/26/21 21:09 Pulse Ox 93 01/26/21 19:17 Body Mass Index 37.8 Const: Other: Appearing in no acute distressed lung sounds are clear to auscultation heart regular rate rhythm, clear S1, S2 positive bowel sounds, abdomen is soft, nontender neuro patient is alert x3, no focal deficits gasca catheter in place Objective Data Labs CBC & Chem 7: 01/25/21 05:59 01/26/21 05:30 Labs: Laboratory Results - last 24 hr 01/26/21 01/26/21 01/26/21 05:30 07:19 11:18 Sodium 133 L Potassium 4.3 Chloride 98 Carbon Dioxide 27 Anion Gap 12 BUN 32 H Creatinine 1.13 Estim Creat Clear Calc 45.8 Estimated GFR 47 POC Glucose 190 H 252 H Random Glucose 182 H D Calcium 8.3 L 01/26/21 01/26/21 15:48 20:57 Sodium Potassium Chloride Carbon Dioxide Anion Gap BUN Creatinine Estim Creat Clear Calc Estimated GFR POC Glucose 206 H 288 H Random Glucose Calcium Microbiology Microbiology Results: Microbiology 01/17/21 23:05 Blood - Venous Blood Culture - Final No growth after 5 days. 01/17/21 22:32 Blood - Venous Blood Culture - Final No growth after 5 days. Assessment & Plan Assessment and plan (1) ARLEY (acute kidney injury): Status: Acute (2) COVID-19: Status: Acute Assessment and Plan: 1. A 75-year-old female with acute kidney injury. Acute kidney injury in this patient likely secondary to acute tubular injury due to multifactorial reasons. The patient had a creatinine of 1.4 on admission, which has increased significantly after the CAT scan/CT and likely has contrast-induced nephropathy. She also likely has COVID-induced renal damage. Obstruction needs to be ruled out on this patient. She does have proteinuria, which again could be due to COVID. 2. Chronic kidney disease stage 3 at baseline. 3. Hyponatremia- Normal osmolality 4. COVID pneumonia with diarrhea. RECOMMENDATIONS: Had HD x 2 Hold HD over week end Pt making urine ARLEY recovering Avoid using any nephrotoxic agents on this patient. No Marrero on Renal ultrasound Fluid Restriction COVID Rx as per medical team We will continue to monitor the patient closely NEED TO REMOVE R IJ CATH HD NEXT WEEK BASED ON LABS thx Dr. Tee . Time Spent With Patient Time: Total time spent is greater than 50% in coordination of care (as documented) at patient's floor/unit and/or counseling patient:
[2021-01-27] VITALS (10 sets, daily range): BP systolic 127–155; BP diastolic 52–70; PULSE 61–77; RESP 18–22; TEMP 36.1–36.6; O2SAT 94–100
[2021-01-27] MEDS: 0.9 % Sodium Chloride Flush 3 ML SYRINGE IVFLUSH ×3 (00:07→16:32)
[2021-01-27] MEDS: Heparin Sodium,Porcine 5,000 UNIT/ML VIAL 5000 UNIT SUBCUT ×2 (06:13→16:32)
[2021-01-27 07:26] LABS: Anion Gap 13 (12-20); Blood Urea Nitrogen 33 mg/dL (9-16); Calcium 8.5 mg/dL (8.4-10.2); Carbon Dioxide 27 mmol/L (22-29); Chloride 98 mmol/L (96-108); Creatinine Clr Calc Pharmacy 44.3; Estimated Glomerular Filt Rate 45; Glucose Random 180 mg/dL (60-115); Potassium 4.3 mmol/L (3.3-5.1); Sodium 134 mmol/L (135-145)
[2021-01-27 07:43] LABS: Glucose, Whole Blood 167 mg/dL (60-115)
[2021-01-27] MEDS: Insulin Lispro 100 UNIT/ML 3 ML VIAL SUBCUT ×4 (07:53→20:48)
[2021-01-27] MEDS: cilostazoL 100 MG TABLET PO ×2 (07:53→20:49)
[2021-01-27] MEDS: dexAMETHasone 6 MG TABLET PO (07:54)
[2021-01-27] MEDS: amLODIPine Besylate 5 MG TABLET PO (07:54)
[2021-01-27] MEDS: Aspirin Enteric Coated 81 MG TABLET.DR PO (07:54)
[2021-01-27] MEDS: Sucralfate 1 GM TABLET 2 GM PO (07:54)
[2021-01-27] MEDS: hydrALAZINE HCl 50 MG TABLET PO ×3 (07:54→20:49)
[2021-01-27] MEDS: carvediloL 25 MG TABLET PO ×2 (07:54→20:49)
[2021-01-27 11:09] LABS: Glucose, Whole Blood 247 mg/dL (60-115)
--- NOTE | 2021-01-27 11:11 | MHC.CM.PN ---
Per ROUNDS discussion, Patient and Daughter/Vero want STR and CC is there first choice (also agreeable to additional referrals, should [facility] not have an available bed). Patient is not yet medically cleared for dc (new HD will be based on labs).CM will continue to follow for dc planning.
--- NOTE | 2021-01-27 11:53 | HO.PM.IMPN ---
Subjective Subjective Date of Service: 01/27/21 <Myrna Bean NP - Last Filed: 01/27/21 15:58> 01/27/21 <Robert Smith MD - Last Filed: 01/27/21 16:43> Interval History: Follow up ESRD. No sob or pain. <Myrna Bean NP - Last Filed: 01/27/21 15:58> Physical Exam Vital Signs: Vital Signs: Last Vital Signs Temp 98 F 01/27/21 10:53 Pulse 67 01/27/21 10:53 Resp 22 H 01/27/21 10:53 BP 134/52 L 01/27/21 10:53 Pulse Ox 94 01/27/21 10:53 Body Mass Index 37.8 <Myrna Bean NP - Last Filed: 01/27/21 15:58> Appearing in no acute distress, temp HD cath right IJ lung sounds are clear to auscultation heart regular rate rhythm, clear S1, S2 positive bowel sounds, abdomen is soft, nontender neuro patient is alert x3, no focal deficits <Myrna Bean NP - Last Filed: 01/27/21 15:58> Objective Data Current Medications Generic Name Dose Route Start Last Admin Trade Name Freq PRN Reason Stop Dose Admin Acetaminophen 650 mg 01/17/21 23:52 Acetaminophen 325 Mg Tablet PO Q6H PRN Pain, Mild (Pain Scale 1-3) Albuterol Sulfate 4 puff 01/17/21 23:52 Albuterol Sulfate 90 Mcg 8 Gm Inhaler INHALE Q2H PRN Shortness of Breath/Wheezing Amlodipine Besylate 5 mg 01/25/21 16:40 01/27/21 07:54 Amlodipine Besylate 5 Mg Tablet PO 5 mg DAILY HANANE Administration Protocol Aspirin 81 mg 01/19/21 09:00 01/27/21 07:54 Aspirin Enteric Coated 81 Mg Tablet.Dr PO 81 mg DAILY HANANE Administration Atorvastatin Calcium 40 mg 01/18/21 21:00 01/26/21 21:07 Atorvastatin Calcium 40 Mg Tablet PO 40 mg BEDTIME HANANE Administration Carvedilol 25 mg 01/18/21 21:00 01/27/21 07:54 Carvedilol 25 Mg Tablet PO 25 mg BID HANANE Administration Protocol Cilostazol 100 mg 01/18/21 21:00 01/27/21 07:53 Cilostazol 100 Mg Tablet PO 100 mg BID HANANE Administration Cyclobenzaprine HCl 5 mg 01/19/21 10:48 01/20/21 01:49 Cyclobenzaprine Hcl 5 Mg Tablet PO 5 mg TID PRN Administration back pain Ergocalciferol 1,250 mcg 01/19/21 10:00 01/26/21 08:23 Ergocalciferol (Vitamin D2) 1,250 Mcg Capsule PO 1,250 mcg Dubon@1000 HANANE Administration Furosemide 20 mg 01/19/21 09:00 01/20/21 08:51 Furosemide 20 Mg Tablet PO 20 mg DAILY HANANE Administration Protocol Gabapentin 300 mg 01/18/21 21:00 01/26/21 21:08 Gabapentin 300 Mg Capsule PO 300 mg BEDTIME HANANE Administration Heparin Sodium (Porcine) 5,000 unit 01/23/21 18:00 01/27/21 06:13 Heparin Sodium,Porcine 5,000 Unit/Ml Vial SUBCUT 5,000 unit Q12H HANANE Administration Hydralazine HCl 50 mg 01/18/21 15:00 01/27/21 07:54 Hydralazine Hcl 50 Mg Tablet PO 50 mg TID HANANE Administration Protocol Insulin Glargine 10 unit 01/25/21 21:00 01/26/21 21:10 Insulin Glargine,Hum.Rec.Anlog 100 Unit/Ml 10 Ml Vial SUBCUT 10 unit BEDTIME HANANE Administration Insulin Human Lispro 0 unit 01/25/21 16:30 01/27/21 11:49 Insulin Lispro 100 Unit/Ml 3 Ml Vial SUBCUT 4 unit QIDACHS HANANE Administration Protocol Montelukast Sodium 10 mg 01/18/21 21:00 01/26/21 21:08 Montelukast Sodium 10 Mg Tablet PO 10 mg BEDTIME HANANE Administration Sodium Chloride 3 ml 01/18/21 00:00 01/27/21 07:53 0.9 % Sodium Chloride Flush 3 Ml Syringe IVFLUSH 3 ml QSHIFT HANANE Administration Sucralfate 2 gm 01/19/21 09:00 01/27/21 07:54 Sucralfate 1 Gm Tablet PO 2 gm DAILY HANANE Administration <Myrna Bean NP - Last Filed: 01/27/21 15:58> Labs CBC & Chem 7: : 01/25/21 05:59 01/27/21 06:03 <Myrna Bean NP - Last Filed: 01/27/21 15:58> Microbiology Microbiology Results: Microbiology 01/17/21 23:05 Blood - Venous Blood Culture - Final No growth after 5 days. 01/17/21 22:32 Blood - Venous Blood Culture - Final No growth after 5 days. <Myrna Bean NP - Last Filed: 01/27/21 15:58> Assessment and Plan (1) ARLEY (acute kidney injury): Status: Acute <Myrna Bean NP - Last Filed: 01/27/21 15:58> Assessment and Plan: 75 year old with diabetes with neuropathy and nephropathy, multivessel CAD, peripheral vascular disease, HTN, HLD presenting on the 9th day of symptoms from COVID-19 pneumonia admitted for hypoxia ARLEY/CKD3. SCr 1.17 with no HD over the weekend. Related to acute tubular injury due to multiple reasons including contrast, COVID. renal ultrasound showed no hydro. -Last HD on 01/24 -temp cath to be removed today by IR -nephrology following. -Lasix/lisinopril have been on hold -Follow intake and output Diabetes. A1c 7.9. Dose of Lantus decreased due to AM hypoglycemia yesterday. improved this am -SSI, POCs, ADA diet Hypoxic respiratory failure. Resolved seems to be more hypoxic with activity. - walking oximetry showed sats between 90 and 92%. - on 1-2L at rest, continue to wean oxygen as tolerated COVID-19 pneumonia -dexamethasone, 10 days to end 01/27 -remdesivir d/c'ed in light of worsening renal failure Hyponatremia. Resolved Continue Fluid rest 1500ml Asthma continue montelukast, prn albuterol. dexamethasone as above HTN. stable. -Continue Norvasc, hydralazine and carvedilol -hold lisinopril + furosemide d/t ARLEY CAD/PVD continue ASA, statin, carvedilol, cilostazol; hold lisinopril neuropathy continue gabapentin Disposition: STR likely tomorrow. Full Code DVT pptx, heparin Attending: Dr. Smith <Myrna Bean NP - Last Filed: 01/27/21 15:58> Attending Attestation: Patient seen and examined independently and I was present during almodovar portion of E/M service. Agree with Edilia Bean NP's history, physical, assessment, and plan. 75 yo F admitted for COVID + Hypoxia. Hospital course complicated by progressive ARLEY requiring short-term dialysis. Fortunately, SCr has recovered nicely and no HD required over the weekened. Temp cath removed today after d/w nephrology today. Oxygen saturation also improving and able to be weaned to RA at rest. Given severity of her COVID and ARLEY, will observe her off oxygen over night and if stable, likely d/c to STR vs Home with services tomorrow. <Robert Smith MD - Last Filed: 01/27/21 16:43>
[2021-01-27 16:22] LABS: Glucose, Whole Blood 259 mg/dL (60-115)
[2021-01-27 20:43] LABS: Glucose, Whole Blood 272 mg/dL (60-115)
[2021-01-27] MEDS: Insulin Glargine,Hum.rec.anlog 100 UNIT/ML 10 ML VIAL 10 UNIT SUBCUT (20:48)
[2021-01-27] MEDS: Gabapentin 300 MG CAPSULE PO (20:49)
[2021-01-27] MEDS: Atorvastatin Calcium 40 MG TABLET PO (20:49)
[2021-01-27] MEDS: Montelukast Sodium 10 MG TABLET PO (20:49)
[2021-01-28] VITALS: BP 134/52; PULSE 74; RESP 18; TEMP 36.4; O2SAT 98
[2021-01-28] MEDS: 0.9 % Sodium Chloride Flush 3 ML SYRINGE IVFLUSH ×2 (00:02→08:10)
[2021-01-28 04:00] VITALS: BP 122/58; PULSE 70; RESP 18; TEMP 36.6; O2SAT 99
[2021-01-28] MEDS: Heparin Sodium,Porcine 5,000 UNIT/ML VIAL 5000 UNIT SUBCUT (05:03)
[2021-01-28 06:42] LABS: Anion Gap 12 (12-20); Blood Urea Nitrogen 34 mg/dL (9-16); Calcium 8.5 mg/dL (8.4-10.2); Carbon Dioxide 28 mmol/L (22-29); Chloride 99 mmol/L (96-108); Creatinine Clr Calc Pharmacy 44.3; Estimated Glomerular Filt Rate 45; Glucose Random 210 mg/dL (60-115); Potassium 4.4 mmol/L (3.3-5.1); Sodium 135 mmol/L (135-145)
[2021-01-28 07:30] VITALS: BP 154/74; PULSE 72; RESP 20; TEMP 36.6; O2SAT 98
[2021-01-28 07:32] LABS: Glucose, Whole Blood 173 mg/dL (60-115)
[2021-01-28] MEDS: Insulin Lispro 100 UNIT/ML 3 ML VIAL SUBCUT ×2 (08:08→11:34)
[2021-01-28 08:09] VITALS: BP 154/74; PULSE 72
[2021-01-28] MEDS: Sucralfate 1 GM TABLET 2 GM PO (08:09)
[2021-01-28] MEDS: hydrALAZINE HCl 50 MG TABLET PO (08:09)
[2021-01-28] MEDS: amLODIPine Besylate 5 MG TABLET PO (08:09)
[2021-01-28] MEDS: cilostazoL 100 MG TABLET PO (08:09)
[2021-01-28] MEDS: Aspirin Enteric Coated 81 MG TABLET.DR PO (08:09)
[2021-01-28] MEDS: carvediloL 25 MG TABLET PO (08:09)
--- NOTE | 2021-01-28 10:07 | P.DS_ITS ---
DS: Providers Provider Date of Service: 01/29/21 <Myrna Bean NP - Last Filed: 01/29/21 14:46> 01/29/21 <Robert Smith MD - Last Filed: 01/29/21 14:50> Date of admission: 01/17/21 23:52 <Myrna Bean NP - Last Filed: 01/29/21 14:46> Date of discharge: 01/28/21 <Myrna Bean NP - Last Filed: 01/29/21 14:46> Primary care physician: Marycarmen Quijano MD <Myrna Bean NP - Last Filed: 01/29/21 14:46> Admitting clinician: Femi Rosales <Myrna Bean NP - Last Filed: 01/29/21 14:46> Attending physician on admission: Femi Rosales <Myrna Bean NP - Last Filed: 01/29/21 14:46> Consults: 01/17/21 23:52 Consult to Infectious Diseases Routine Consulting Provider: Adelaide Fonseca Reason for consultation: covid pna 01/20/21 13:26 Consult to Nephrology Routine Consulting Provider: Filipe Tee Reason for consultation: worsening renal failure <Myrna Bean NP - Last Filed: 01/29/21 14:46> Attending physician on discharge: Robert Smith <Myrna Bean NP - Last Filed: 01/29/21 14:46> Discharging clinician: Myrna Bean <Myrna Bean NP - Last Filed: 01/29/21 14:46> DS: Diagnosis Discharge Diagnosis (1) COVID-19: Status: Acute <Myrna Bean NP - Last Filed: 01/29/21 14:46> (2) ARLEY (acute kidney injury): Status: Acute <Myrna Bean NP - Last Filed: 01/29/21 14:46> (3) Hypoxia: Status: Acute <Myrna Bean NP - Last Filed: 01/29/21 14:46> (4) Hyponatremia: Status: Acute <Myrna Bean NP - Last Filed: 01/29/21 14:46> (5) Hypertension: Status: Acute <Myrna Bean NP - Last Filed: 01/29/21 14:46> DS: Medications Discharge Medications Home Medications: Home Medications Medication Instructions Recorded Confirmed amlodipine 10 mg PO DAILY 01/18/21 01/18/21 aspirin 81 mg PO DAILY 01/18/21 01/18/21 atorvastatin 40 mg PO BEDTIME 01/18/21 01/18/21 carvedilol 25 mg PO Q12H 01/18/21 01/18/21 cilostazol 100 mg PO BID 01/18/21 01/18/21 ergocalciferol (vitamin D2) 1,250 mcg PO QWEEK 01/18/21 01/18/21 fluconazole 150 mg PO DAILY 01/18/21 01/18/21 gabapentin 300 mg PO BEDTIME 01/18/21 01/18/21 hydralazine 50 mg PO TID 01/18/21 01/18/21 insulin glargine U-300 conc 47 unit SUBCUT DAILY 01/18/21 01/18/21 linagliptin 5 mg PO DAILY 01/18/21 01/18/21 montelukast 10 mg PO BEDTIME 01/18/21 01/18/21 sucralfate 2 g PO DAILY 01/18/21 01/18/21 <Myrna Bean THREAD MILLING MACHINE SET UP OPERATOR - Last Filed: 01/29/21 14:46> DS: Summary Hospital Course Hospital Course: HP as per admitting provider 75-year-old female a past medical history of hypertension, hyperlipidemia, diabetes, diabetic neuropathy, diabetic nephropathy, coronary artery disease-multivessel disease, peripheral vascular disease diagnosed with COVID few days ago presented to the hospital with a chief complaint of diarrhea. Patient mentioned that she has been having diarrhea over the past few days but no abdominal pain. Denies any numbness tingling. Mentions occasional shortness of breath. Denies any cough. Denies any fever chills cough. Mention the her family members her COVID positive. Denies any chest pain palpitations lightheadedness dizziness. Review of all other systems is negative except mentioned above. ER course: Per ER team patient noted to be dyspneic on presentation saturating 70% on room air, subsequently placed on non-rebreather with improvement oxygenation to 88-90%. Patient was not in respiratory distress. Breathing comfortably and speaking in full sentences. Lab showed creatinine of 1.4; patient was given Decadron and inhaler. Admitted to the hospital for further management . COVID-19 with acute hypoxic respiratory failure. Initially presented to the ER diarrhea. She also had occasional shortness of breath but denied fever, chills. She had family members were positive for COVID-19. She had presented with an oxygen saturation of 70% and was placed on non-rebreather. Her oxygenation quickly improved. She did have some episodes of oxygen saturation waxing and waning mostly with exertion. She was treated with Decadron ceftriaxone, azithromycin as well as remdesivir initially because of her oxygen requirements. Remdesivir was subsequently stopped because of acute renal failure due to acute tubular necrosis. Patient's oxygen requirements decreased and no longer required oxygen therapy. Patient is not hypoxic and safe for discharge to short-term rehab. Acute kidney injury secondary to ATN. Multifactorial secondary to contrast nephropathy, COVID-19. She had a temporary IJ catheter placed and had 2 cycles of hemodialysis last dialysis was for 01/24. She was seen and evaluated by Nephrology and at this point her creatinine is 1.17. Her temporary dialysis catheter was pulled yesterday and she no longer requires any dialysis. Will stop her Lasix and lisinopril. Check BMP in 1 week for consideration of restarting her Lasix and lisinopril. Hyponatremia. Secondary to hypovolemia. At some point down as low as 116. she was treated with D5W with sodium bicarb. Sodium returned to normal limits. Attending: Dr. Smith <Myrna Bean NP - Last Filed: 01/29/21 14:46> Time Spent with Patient Time attestation: Total time spent providing and/or coordinating discharge services: <Myrna Bean NP - Last Filed: 01/29/21 14:46> Discharge coordination time: Greater than 30 minutes <Myrna Bean NP - Last Filed: 01/29/21 14:46> Physical Exam Vital Signs: Vital Signs: Last Vital Signs Temp 97.8 F 01/28/21 07:30 Pulse 72 01/28/21 08:09 Resp 20 01/28/21 07:30 BP 154/74 H 01/28/21 08:09 Pulse Ox 98 01/28/21 07:30 Body Mass Index 37.8 <Myrna Bean NP - Last Filed: 01/29/21 14:46> Appearing in no acute distress lung sounds are clear to auscultation heart regular rate rhythm, clear S1, S2 positive bowel sounds, abdomen is soft, nontender neuro patient is alert x3, no focal deficits <Myrna Bean NP - Last Filed: 01/29/21 14:46> DS: Data Data Completed and Pending Labs on day of discharge: Laboratory Results - last 24 hr 01/27/21 01/27/21 01/27/21 11:06 16:19 20:39 Sodium Potassium Chloride Carbon Dioxide Anion Gap BUN Creatinine Estim Creat Clear Calc Estimated GFR POC Glucose 247 H 259 H 272 H Random Glucose Calcium 01/28/21 01/28/21 05:45 07:28 Sodium 135 Potassium 4.4 Chloride 99 Carbon Dioxide 28 Anion Gap 12 BUN 34 H Creatinine 1.17 Estim Creat Clear Calc 44.3 Estimated GFR 45 POC Glucose 173 H Random Glucose 210 H Calcium 8.5 <Myrna Bean NP - Last Filed: 01/29/21 14:46> Discharge Plan Discharge Anticipated Discharge Date/Time: 01/28/21 10:02 <Myrna Bean NP - Last Filed: 01/29/21 14:46> Patient Disposition: Xfer Inpatient Rehab Fac <Myrna Bean NP - Last Filed: 01/29/21 14:46> Discharge Diagnosis: Covid 19 pneumonia ARLEY <Myrna Bean NP - Last Filed: 01/29/21 14:46> Covid 19 pneumonia ARLEY <Robert Smith MD - Last Filed: 01/29/21 14:50> Referrals: Marycarmen Quijano MD [Primary Care Provider] - 1 Week <Myrna Bean NP - Last Filed: 01/29/21 14:46> Discharge Medications: Continued atorvastatin 40 mg Tablet 40 mg PO BEDTIME RF: 0 cilostazol 100 mg Tablet 100 mg PO BID RF: 0 carvedilol 25 mg Tablet 25 mg PO Q12H RF: 0 fluconazole 150 mg Tablet 150 mg PO DAILY RF: 0 sucralfate 1 gram Tablet 2 g PO DAILY RF: 0 amlodipine 10 mg Tablet 10 mg PO DAILY RF: 0 montelukast 10 mg Tablet 10 mg PO BEDTIME RF: 0 hydralazine 50 mg Tablet 50 mg PO TID RF: 0 aspirin 81 mg Tablet 81 mg PO DAILY RF: 0 ergocalciferol (vitamin D2) 1,250 mcg (50,000 unit) Capsule 1,250 mcg PO QWEEK RF: 0 gabapentin 300 mg Tablet 300 mg PO BEDTIME RF: 0 linagliptin 5 mg Tablet 5 mg PO DAILY RF: 0 Discontinued furosemide 20 mg Tablet 20 mg PO QAM RF: 0 lisinopril 40 mg Tablet 40 mg PO DAILY RF: 0 No Action Toujeo Max U-300 SoloStar 300 unit/mL (3 mL) insulin pen 47 unit subcut DAILY 90 Days Qty: 18 RF: 2 <Myrna Bean NP - Last Filed: 01/29/21 14:46> Discharge Orders: Discharge Order (Routine); Ordered 01/28/21 Ordered By: Myrna Bean <Myrna Bean NP - Last Filed: 01/29/21 14:46> Diet: advance to usual diet <Myrna Bean NP - Last Filed: 01/29/21 14:46> advance to usual diet <Robert Smith MD - Last Filed: 01/29/21 14:50> Activity on Discharge: As tolerated <Myrna Bean NP - Last Filed: 01/29/21 14:46> As tolerated <Robert Smith MD - Last Filed: 01/29/21 14:50> Stand Alone Forms: Patient Portal Discharge page <Myrna Bean NP - Last Filed: 01/29/21 14:46> Health Concerns: Acute renal failure, emergent hemodialysis Covid 19 Quarantine: According to the Centers for disease control. Persons with COVID-19 who have symptoms and were directed to care for themselves at home may discontinue isolation under the following conditions: -At least 10 days have passed since symptom onset and -At least 24 hours have passed since resolution of fever without the use of fever-reducing medications and -Other symptoms have improved. Safety: Wear a mask Wash your hands or use hand psychologist research assistant before putting on your mask. Wear your mask over your nose and mouth and secure it under your chin. Stay 6 feet away from others Inside your home: Avoid close contact with people who are sick. If possible, maintain 6 feet between the person who is sick and other household members. Outside your home: Put 6 feet of distance between yourself and people who don't live in your household. Remember that some people without symptoms may be able to spread virus. Stay at least 6 feet (about 2 arm lengths) from other people. Keeping distance from others is especially important for people who are at higher risk of getting very sick. Avoid crowds and poorly ventilated spaces Avoid indoor spaces that do not offer fresh air from the outdoors as much as possible. Wash your hands often with soap and water for at least 20 seconds especially after you have been in a public place, or after blowing your nose, coughing, or sneezing. Cover coughs and sneezes Clean high touch surfaces daily. Be alert for symptoms. Watch for fever, cough, shortness of breath, or other symptoms of COVID-19. Follow CDC guidance if symptoms develop. CDC.gov <Myrna Bean NP - Last Filed: 01/29/21 14:46> Plan of Treatment: Follow up with PCP after discharge from rehab facility Check BMP in one week Lasix and Lisinopril stopped. Quarantine <Myrna Bean NP - Last Filed: 01/29/21 14:46> Assessment: See discharge summary <Myrna Bean NP - Last Filed: 01/29/21 14:46> Discharge Date/Time: 01/28/21 14:05 <Myrna Bean NP - Last Filed: 01/29/21 14:46>
[2021-01-28 11:11] VITALS: BP 139/67; PULSE 70; RESP 20; TEMP 36.1; O2SAT 99
[2021-01-28 11:30] LABS: Glucose, Whole Blood 201 mg/dL (60-115)
== END 2021-01-28 14:05 | DRG 177 ==
LOC: HO.ED 23:15 → HO.EDOVER 01-18 00:16 → HO.IMC 01-18 17:04
PROVIDERS: Family Medicine; Internal Medicine; Internal Medicine Nephrology; Nurse Practitioner Acute Care; Physician Assistant Medical; Radiology Diagnostic Radiology; Admitting Provider Hospitalist; Emergency Provider Internal Medicine; PCP Family Medicine; Visit Provider Family Medicine
PROC: 02HV33Z Insertion of Infusion Device into Superior Vena Cava, Percutaneous Approach (ICD-10-PCS; principal; 2021-01-23 08:30)
DX: U07.1 COVID-19 (principal); J12.82 Pneumonia due to coronavirus disease 2019; J96.01 Acute respiratory failure with hypoxia; N17.9 Acute kidney failure, unspecified; E87.2 Acidosis; E87.1 Hypo-osmolality and hyponatremia; K21.9 Gastro-esophageal reflux disease without esophagitis; E78.5 Hyperlipidemia, unspecified; E11.42 Type 2 diabetes mellitus with diabetic polyneuropathy; I12.9 Hypertensive chronic kidney disease with stage 1 through stage 4 chronic kidney disease, or unspecified chronic kidney disease; I25.10 Atherosclerotic heart disease of native coronary artery without angina pectoris; E11.22 Type 2 diabetes mellitus with diabetic chronic kidney disease; E11.51 Type 2 diabetes mellitus with diabetic peripheral angiopathy without gangrene; J45.909 Unspecified asthma, uncomplicated; N18.30 Chronic kidney disease, stage 3 unspecified; Z88.5 Allergy status to narcotic agent; Z88.6 Allergy status to analgesic agent; Z79.4 Long term (current) use of insulin; Z79.82 Long term (current) use of aspirin; Z79.899 Other long term (current) drug therapy
CPT/HCPCS: 36415; 71045; 71275; 76775; 76937; 77001; 80048; 80053; 80076; 81001; 82728; 82947; 83036; 83605; 83615; 83880; 83930; 83935; 84145; 84156; 84300; 84484; 84550; 85025; 85027; 85379; 85610; 85730; 86140; 86704; 86705; 86706; 87040; 87340; 87635; 90999; 93005; 94640; 96365; 96366; 96368; 96375; 97162; 99285; 99291; C1752; C1758; C1769; J0456; J0696; J1100; J1650; J3490; J8540; P9047; Q9967

== ENCOUNTER 2021-01-29 07:15 | Outpatient (REF) | payer MEDICARE, SELFPAY ==
[2021-01-29 07:50] LABS: Hematocrit 29.2 % (37-47); Hemoglobin 9.5 g/dl (12.0-16.0); Mean Corpuscular HGB Conc 32.5 g/dl (31.0-35.0); Mean Corpuscular Hemoglobin 24.2 pg (27.0-33.0); Mean Corpuscular Volume 74.3 fL (80-98); Mean Platelet Volume 9.8 fL (9.4-12.3); Platelet Count 332 X10*3/uL (160-400); Red Blood Count 3.93 X10*6/uL (4.20-5.50); Red Cell Distribution Width 14.5 % (11.0-16.0); White Blood Count 13.8 X10*3/uL (4.8-10.8)
[2021-01-29 08:04] LABS: Alanine Aminotransferase 47 U/L (0-31); Albumin Level 2.7 g/dL (3.5-5.0); Alkaline Phosphatase 89 U/L (39-117); Anion Gap 12 (12-20); Aspartate Amino Transferase 27 U/L (5-31); Bilirubin Total 0.7 mg/dL (0.0-1.0); Blood Urea Nitrogen 29 mg/dL (9-16); Calcium 8.5 mg/dL (8.4-10.2); Carbon Dioxide 28 mmol/L (22-29); Chloride 100 mmol/L (96-108); Estimated Glomerular Filt Rate 52; Glucose Random 230 mg/dL (60-115); Potassium 4.4 mmol/L (3.3-5.1); Sodium 136 mmol/L (135-145); Total Protein 5.3 g/dL (6.5-8.0)
== END 2021-01-29 07:16 | disposition home or self-care (01) ==
LOC: HO.MMNH1L 07:15
PROVIDERS: Visit Provider Family Medicine
DX: U07.1 COVID-19 (principal); I10 Essential (primary) hypertension; E11.9 Type 2 diabetes mellitus without complications
CPT/HCPCS: 36415; 80053; 85027

== ENCOUNTER 2021-02-03 00:20 | Outpatient (REF) | payer MEDICARE, SELFPAY ==
[2021-02-03 07:44] LABS: Hematocrit 24.5 % (37-47); Mean Corpuscular HGB Conc 32.7 g/dl (31.0-35.0); Mean Corpuscular Hemoglobin 24.9 pg (27.0-33.0); Mean Corpuscular Volume 76.3 fL (80-98); Mean Platelet Volume 10.1 fL (9.4-12.3); Red Blood Count 3.21 X10*6/uL (4.20-5.50); Red Cell Distribution Width 15.1 % (11.0-16.0)
[2021-02-03 08:15] LABS: Anion Gap 11 (12-20); Blood Urea Nitrogen 17 mg/dL (9-16); Calcium 8.1 mg/dL (8.4-10.2); Carbon Dioxide 25 mmol/L (22-29); Chloride 105 mmol/L (96-108); Estimated Glomerular Filt Rate 50; Glucose Random 184 mg/dL (60-115); Potassium 3.9 mmol/L (3.3-5.1); Sodium 137 mmol/L (135-145)
[2021-02-03 08:18] LABS: Platelet Count 222 X10*3/uL (160-400)
[2021-02-03 08:19] LABS: White Blood Count 9.8 X10*3/uL (4.8-10.8)
== END 2021-02-03 00:21 | disposition home or self-care (01) ==
LOC: HO.MMNH1L 00:20
PROVIDERS: Visit Provider Family Medicine
DX: U07.1 COVID-19 (principal); E11.9 Type 2 diabetes mellitus without complications; I10 Essential (primary) hypertension
CPT/HCPCS: 36415; 80048; 85027

== ENCOUNTER 2021-02-10 10:19 | Outpatient (REF) | payer MEDICARE, SELFPAY ==
[2021-02-10 07:55] LABS: Hemoglobin 7.5 g/dl (12.0-16.0); Mean Corpuscular HGB Conc 31.3 g/dl (31.0-35.0); Mean Corpuscular Volume 76.7 fL (80-98); Mean Platelet Volume 9.3 fL (9.4-12.3); Platelet Count 309 X10*3/uL (160-400); Red Blood Count 3.13 X10*6/uL (4.20-5.50); Red Cell Distribution Width 15.4 % (11.0-16.0); White Blood Count 6.3 X10*3/uL (4.8-10.8)
[2021-02-10 08:43] LABS: Anion Gap 13 (12-20); Blood Urea Nitrogen 10 mg/dL (9-16); Calcium 8.5 mg/dL (8.4-10.2); Carbon Dioxide 24 mmol/L (22-29); Chloride 106 mmol/L (96-108); Estimated Glomerular Filt Rate 47; Glucose Random 151 mg/dL (60-115); Potassium 4.1 mmol/L (3.3-5.1); Sodium 139 mmol/L (135-145)
== END 2021-02-10 10:20 | disposition home or self-care (01) ==
LOC: HO.MMNH1L 10:19
PROVIDERS: Visit Provider Family Medicine
DX: E11.9 Type 2 diabetes mellitus without complications (principal); I10 Essential (primary) hypertension; U07.1 COVID-19
CPT/HCPCS: 36415; 80048; 85027

== ENCOUNTER 2021-02-17 00:25 | Outpatient (REF) | payer MEDICARE, SELFPAY ==
[2021-02-17 08:08] LABS: Hematocrit 23.7 % (37-47); Hemoglobin 7.6 g/dl (12.0-16.0); Mean Corpuscular HGB Conc 32.1 g/dl (31.0-35.0); Mean Corpuscular Hemoglobin 24.3 pg (27.0-33.0); Mean Corpuscular Volume 75.7 fL (80-98); Platelet Count 565 X10*3/uL (160-400); Red Blood Count 3.13 X10*6/uL (4.20-5.50); White Blood Count 7.7 X10*3/uL (4.8-10.8)
[2021-02-17 08:34] LABS: Anion Gap 14 (12-20); Blood Urea Nitrogen 9 mg/dL (9-16); Calcium 8.5 mg/dL (8.4-10.2); Carbon Dioxide 23 mmol/L (22-29); Chloride 107 mmol/L (96-108); Estimated Glomerular Filt Rate 51; Glucose Random 112 mg/dL (60-115); Potassium 3.8 mmol/L (3.3-5.1); Sodium 140 mmol/L (135-145)
== END 2021-02-17 00:26 | disposition home or self-care (01) ==
LOC: HO.MMNH1L 00:25
PROVIDERS: Visit Provider Family Medicine
DX: Z13.89 Encounter for screening for other disorder (principal)
CPT/HCPCS: 36415; 80048; 85027

== ENCOUNTER 2021-02-19 18:44 | Inpatient (IN) | payer MEDICARE, SELFPAY ==
--- NOTE | ~2021-02-19 | XR_ITS ---
EXAMINATION: XR CHEST CLINICAL INFORMATION: Cough and wheeze COMPARISON: Chest x-ray and CTA chest 01/17/2021 TECHNIQUE: Frontal view of the chest was obtained. FINDINGS: Cardiac silhouette is at the upper limits of normal in size. Atherosclerotic disease of the aortic arch. Lungs are adequately aerated. Patchy bilateral airspace opacities are again noted but appear less prominent than imaging from one month ago. No gross lobar consolidation is identified. No pleural effusion or pneumothorax appreciated. XR/XR chest 1V IMPRESSION: Persistent but improving diffuse bilateral airspace disease.
[2021-02-19 19:04] VITALS: BP 142/62; PULSE 102; RESP 18; TEMP 36.1; O2SAT 95; BMI 44.8
[2021-02-19 19:10] LABS: Glucose, Whole Blood 62 mg/dL (60-115)
--- NOTE | 2021-02-19 19:15 | ED.GENADULT ---
HPI - General Adult General Chief complaint: General Medical Stated complaint: med error Time Seen by Provider: 02/19/21 19:03 Source: patient Mode of arrival: ambulatory Limitations: no limitations History of Present Illness HPI narrative: Patient is a 75-year-old Malian-speaking female with past medical history of dm 2, CKD stage III, HTN, asthma, HDL, and GERD who presents with her daughter after her daughter accidentally gave her 50 units of insulin lispro. Patient just got out of the nursing on today and her daughter miss read the paperwork. Patient should have only gotten about 6-8 units. Point of care upon arrival is 60 to in patient is drinking juice and eating candy. Patient denies any symptoms such is sweating, dizziness, nausea or lightheadedness. Med given around 6:30pm. Patient was just discharged today from short-term rehab where she was recovering from COVID. Patient was admitted to this hospital on January 17 with COVID and acute hypoxic respiratory failure with diarrhea, eventually needing dialysis, also developed hyponatremia. She was discharged on January 28 Related Data Home Medications Medication Instructions Recorded Confirmed amlodipine 10 mg PO DAILY 01/18/21 01/18/21 aspirin 81 mg PO DAILY 01/18/21 01/18/21 atorvastatin 40 mg PO BEDTIME 01/18/21 01/18/21 carvedilol 25 mg PO Q12H 01/18/21 01/18/21 cilostazol 100 mg PO BID 01/18/21 01/18/21 ergocalciferol (vitamin D2) 1,250 mcg PO QWEEK 01/18/21 01/18/21 fluconazole 150 mg PO DAILY 01/18/21 01/18/21 gabapentin 300 mg PO BEDTIME 01/18/21 01/18/21 hydralazine 50 mg PO TID 01/18/21 01/18/21 linagliptin 5 mg PO DAILY 01/18/21 01/18/21 montelukast 10 mg PO BEDTIME 01/18/21 01/18/21 sucralfate 2 g PO DAILY 01/18/21 01/18/21 Previous Rx's Medication Instructions Recorded Toujeo Max U-300 SoloStar 300 47 unit SUBCUT DAILY 90 Days #18 01/29/21 unit/mL (3 mL) subcutaneous ml NS insulin pen Allergies Allergy/AdvReac Type Severity Reaction Status Date / Time ibuprofen [From MOTRIN] Allergy Intermediate RASH Verified 01/18/21 02:29 oxycodone [From PERCOCET] Allergy Intermediate ITCHING Verified 01/18/21 02:29 acetaminophen [Percocet] Allergy Unknown unknown Verified 01/18/21 02:29 Motrin Allergy Unknown high blood Verified 01/18/21 02:29 pressure Review of Systems Review of Systems: Yes all other systems are reviewed and are negative [facility] Past Medical History Medical History Asthma Chronic kidney disease CKD (chronic kidney disease) stage 3, GFR 30-59 ml/min Diabetes mellitus Diabetic nephropathy associated with type 2 diabetes mellitus Diabetic polyneuropathy associated with type 2 diabetes mellitus Dyslipidemia GERD (gastroesophageal reflux disease) Hypertension Infected cyst of skin half-way (current) use of insulin Morbid obesity Thalamic pain syndrome Surgical History History of breast lump/mass excision History of cholecystectomy History of tubal ligation Family History Family History Sister History of renal pelvis cancer Social History Social History Household Members: Spouse Housing: House Alcohol intake: unknown Smoking Status: Unknown if ever smoked Use of substances other than those prescribed or required for medical reasons: Unknown Advance Directives: No Advance Directives Information Provided: Yes service: No Current occupational status: unemployed Gender identity: female Physical Exam Vital Signs: Vital Signs: Last Vital Signs Temp 97 F 02/19/21 19:04 Pulse 96 02/19/21 23:22 Resp 16 02/19/21 23:22 BP 142/62 H 02/19/21 23:22 Pulse Ox 91 L 02/19/21 23:22 Body Mass Index 44.8 Const: General: cooperative, healthy appearing, comfortable, no acute distress and well developed Nutritional Appearance: obese Orientation/consciousness: patient oriented x3 Limitations: no limitations HENMT: Head: Yes normal to inspection Eyes: General: appearance normal, both eyes and all related structures Neck: Neck: Yes normal visual inspection and Yes full ROM Resp: Effort & Inspection: normal respiratory effort and able to speak in complete sentences Cardio: Rate: tachycardic GI: Inspection: Yes normal to inspection Skin: General skin exam: no rashes or lesions noted Neuro: General: patient oriented x3 Extrem: General: Yes normal to inspection Course Course Course Narrative: Patient is a 75-year-old Malian-speaking female with past medical history of dm 2, CKD stage III, HTN, asthma, HDL, and GERD who presents with her daughter after her daughter accidentally gave her 50 units of insulin lispro. This is approximately 40-44 units too much, will monitor patient's with Q 15 glucose checks a of 25 g dextrose p.r.n. for point care less than 60. Reevaluation(s) Reevaluation #1: Patient maintaining blood sugar is with the help of D50, will continue to monitor for 4 hours from time it was injected then likely discharge patient home. She is able to tolerate p.o. Time: 20:27 Reevaluation #2: Patient has asthma and is coughing a lot and would like treatment, ordered nebulizer treatment Time: 20:43 Reevaluation #3: During ambulation trial, patient desatted to 87%, was only able to take few steps with her walker. Spoke with Dr. Jeremiah dominguez, will admit for pulmonology evaluation and likely discharge with oxygen in the next day or two. Time: 00:32 Medical Decision Making Lab Data Result diagrams: 02/19/21 19:42 02/19/21 19:42 Labs: Lab Results 02/19/21 02/19/21 02/19/21 Range/Units 19:05 19:24 19:40 WBC (4.8-10.8) X10*3/uL RBC (4.20-5.50) X10*6/uL Hgb (12.0-16.0) g/dl Hct (37-47) % MCV (80-98) fL MCH (27.0-33.0) pg MCHC (31.0-35.0) g/dl RDW (11.0-16.0) % Plt Count (160-400) X10*3/uL MPV (9.4-12.3) fL Immature Gran % (Auto) (0.0-0.4) % Neut % (Auto) (45-73) % Lymph % (Auto) (20-40) % [place] % (Auto) (2-11) % Eos % (Auto) (0-4) % Baso % (Auto) (0-2) % Lymph # (Auto) (1.2-4.9) X10*3/uL [place] # (Auto) (0.1-1.2) X10*3/uL Eos # (Auto) (0.0-0.4) X10*3/uL Baso # (Auto) (0.0-0.2) X10*3/uL Abs Immat Gran (auto) (0.00-0.03) X10*3/uL Absolute Neuts (auto) (2.0-8.3) X10*3/uL Absolute Nucleated RBC (0.0-0.012) X10*3/uL Nucleated RBC % (auto) (0.0-0.2) /100WBC PT (10.8-13.0) SEC INR (0.9-1.1) VBG pH (7.32-7.43) VBG pCO2 mmHg VBG pO2 mmHg VBG HCO3 (22-26) mmol/L VBG O2 Saturation % VBG Base Excess mmol/L Sodium (135-145) mmol/L Potassium (3.3-5.1) mmol/L Chloride (96-108) mmol/L Carbon Dioxide (22-29) mmol/L Anion Gap (12-20) BUN (9-16) mg/dL Creatinine (0.5-1.4) mg/dL Estim Creat Clear Calc Estimated GFR POC Glucose 62 172 H 124 H (60-115) mg/dL Random Glucose (60-115) mg/dL Calcium (8.4-10.2) mg/dL COVID-19 (FRANCA) (Negative) COVID-19 Clin Com 02/19/21 02/19/21 02/19/21 Range/Units 19:42 19:42 19:42 WBC 11.2 H (4.8-10.8) X10*3/uL RBC 3.46 L (4.20-5.50) X10*6/uL Hgb 8.6 L (12.0-16.0) g/dl Hct 26.0 L (37-47) % MCV 75.1 L (80-98) fL MCH 24.9 L (27.0-33.0) pg MCHC 33.1 (31.0-35.0) g/dl RDW 16.2 H (11.0-16.0) % Plt Count 550 H (160-400) X10*3/uL MPV 8.3 L (9.4-12.3) fL Immature Gran % (Auto) 1.3 H (0.0-0.4) % Neut % (Auto) 69.9 (45-73) % Lymph % (Auto) 17.1 L (20-40) % [place] % (Auto) 10.3 (2-11) % Eos % (Auto) 1.0 (0-4) % Baso % (Auto) 0.4 (0-2) % Lymph # (Auto) 1.9 (1.2-4.9) X10*3/uL [place] # (Auto) 1.2 (0.1-1.2) X10*3/uL Eos # (Auto) 0.1 (0.0-0.4) X10*3/uL Baso # (Auto) 0.0 (0.0-0.2) X10*3/uL Abs Immat Gran (auto) 0.15 H (0.00-0.03) X10*3/uL Absolute Neuts (auto) 7.8 (2.0-8.3) X10*3/uL Absolute Nucleated RBC 0.020 H (0.0-0.012) X10*3/uL Nucleated RBC % (auto) 0.2 (0.0-0.2) /100WBC PT 12.9 (10.8-13.0) SEC INR 1.1 (0.9-1.1) VBG pH (7.32-7.43) VBG pCO2 mmHg VBG pO2 mmHg VBG HCO3 (22-26) mmol/L VBG O2 Saturation % VBG Base Excess mmol/L Sodium 136 (135-145) mmol/L Potassium 3.5 (3.3-5.1) mmol/L Chloride 104 (96-108) mmol/L Carbon Dioxide 21 L (22-29) mmol/L Anion Gap 15 (12-20) BUN 12 (9-16) mg/dL Creatinine 1.44 H (0.5-1.4) mg/dL Estim Creat Clear Calc 30.9 Estimated GFR 35 POC Glucose (60-115) mg/dL Random Glucose 120 H (60-115) mg/dL Calcium 9.3 D (8.4-10.2) mg/dL COVID-19 (FRANCA) (Negative) COVID-19 Clin Com 02/19/21 02/19/21 02/19/21 Range/Units 19:45 19:55 20:11 WBC (4.8-10.8) X10*3/uL RBC (4.20-5.50) X10*6/uL Hgb (12.0-16.0) g/dl Hct (37-47) % MCV (80-98) fL MCH (27.0-33.0) pg MCHC (31.0-35.0) g/dl RDW (11.0-16.0) % Plt Count (160-400) X10*3/uL MPV (9.4-12.3) fL Immature Gran % (Auto) (0.0-0.4) % Neut % (Auto) (45-73) % Lymph % (Auto) (20-40) % [place] % (Auto) (2-11) % Eos % (Auto) (0-4) % Baso % (Auto) (0-2) % Lymph # (Auto) (1.2-4.9) X10*3/uL [place] # (Auto) (0.1-1.2) X10*3/uL Eos # (Auto) (0.0-0.4) X10*3/uL Baso # (Auto) (0.0-0.2) X10*3/uL Abs Immat Gran (auto) (0.00-0.03) X10*3/uL Absolute Neuts (auto) (2.0-8.3) X10*3/uL Absolute Nucleated RBC (0.0-0.012) X10*3/uL Nucleated RBC % (auto) (0.0-0.2) /100WBC PT (10.8-13.0) SEC INR (0.9-1.1) VBG pH 7.46 H (7.32-7.43) VBG pCO2 30 mmHg VBG pO2 14 mmHg VBG HCO3 21 L (22-26) mmol/L VBG O2 Saturation 98.0 % VBG Base Excess -0.9 mmol/L Sodium (135-145) mmol/L Potassium (3.3-5.1) mmol/L Chloride (96-108) mmol/L Carbon Dioxide (22-29) mmol/L Anion Gap (12-20) BUN (9-16) mg/dL Creatinine (0.5-1.4) mg/dL Estim Creat Clear Calc Estimated GFR POC Glucose 94 172 H (60-115) mg/dL Random Glucose (60-115) mg/dL Calcium (8.4-10.2) mg/dL COVID-19 (FRANCA) (Negative) COVID-19 Clin Com 02/19/21 02/19/21 02/19/21 Range/Units 20:30 20:45 21:08 WBC (4.8-10.8) X10*3/uL RBC (4.20-5.50) X10*6/uL Hgb (12.0-16.0) g/dl Hct (37-47) % MCV (80-98) fL MCH (27.0-33.0) pg MCHC (31.0-35.0) g/dl RDW (11.0-16.0) % Plt Count (160-400) X10*3/uL MPV (9.4-12.3) fL Immature Gran % (Auto) (0.0-0.4) % Neut % (Auto) (45-73) % Lymph % (Auto) (20-40) % [place] % (Auto) (2-11) % Eos % (Auto) (0-4) % Baso % (Auto) (0-2) % Lymph # (Auto) (1.2-4.9) X10*3/uL [place] # (Auto) (0.1-1.2) X10*3/uL Eos # (Auto) (0.0-0.4) X10*3/uL Baso # (Auto) (0.0-0.2) X10*3/uL Abs Immat Gran (auto) (0.00-0.03) X10*3/uL Absolute Neuts (auto) (2.0-8.3) X10*3/uL Absolute Nucleated RBC (0.0-0.012) X10*3/uL Nucleated RBC % (auto) (0.0-0.2) /100WBC PT (10.8-13.0) SEC INR (0.9-1.1) VBG pH (7.32-7.43) VBG pCO2 mmHg VBG pO2 mmHg VBG HCO3 (22-26) mmol/L VBG O2 Saturation % VBG Base Excess mmol/L Sodium (135-145) mmol/L Potassium (3.3-5.1) mmol/L Chloride (96-108) mmol/L Carbon Dioxide (22-29) mmol/L Anion Gap (12-20) BUN (9-16) mg/dL Creatinine (0.5-1.4) mg/dL Estim Creat Clear Calc Estimated GFR POC Glucose 119 H 131 H 61 (60-115) mg/dL Random Glucose (60-115) mg/dL Calcium (8.4-10.2) mg/dL COVID-19 (FRANCA) (Negative) COVID-19 Clin Com 02/19/21 02/19/21 02/19/21 Range/Units 21:36 21:52 22:03 WBC (4.8-10.8) X10*3/uL RBC (4.20-5.50) X10*6/uL Hgb (12.0-16.0) g/dl Hct (37-47) % MCV (80-98) fL MCH (27.0-33.0) pg MCHC (31.0-35.0) g/dl RDW (11.0-16.0) % Plt Count (160-400) X10*3/uL MPV (9.4-12.3) fL Immature Gran % (Auto) (0.0-0.4) % Neut % (Auto) (45-73) % Lymph % (Auto) (20-40) % [place] % (Auto) (2-11) % Eos % (Auto) (0-4) % Baso % (Auto) (0-2) % Lymph # (Auto) (1.2-4.9) X10*3/uL [place] # (Auto) (0.1-1.2) X10*3/uL Eos # (Auto) (0.0-0.4) X10*3/uL Baso # (Auto) (0.0-0.2) X10*3/uL Abs Immat Gran (auto) (0.00-0.03) X10*3/uL Absolute Neuts (auto) (2.0-8.3) X10*3/uL Absolute Nucleated RBC (0.0-0.012) X10*3/uL Nucleated RBC % (auto) (0.0-0.2) /100WBC PT (10.8-13.0) SEC INR (0.9-1.1) VBG pH (7.32-7.43) VBG pCO2 mmHg VBG pO2 mmHg VBG HCO3 (22-26) mmol/L VBG O2 Saturation % VBG Base Excess mmol/L Sodium (135-145) mmol/L Potassium (3.3-5.1) mmol/L Chloride (96-108) mmol/L Carbon Dioxide (22-29) mmol/L Anion Gap (12-20) BUN (9-16) mg/dL Creatinine (0.5-1.4) mg/dL Estim Creat Clear Calc Estimated GFR POC Glucose 113 94 (60-115) mg/dL Random Glucose (60-115) mg/dL Calcium (8.4-10.2) mg/dL COVID-19 (FRANCA) Negative (Negative) COVID-19 Clin Com See Note 02/19/21 02/19/21 02/19/21 Range/Units 22:07 22:31 22:46 WBC (4.8-10.8) X10*3/uL RBC (4.20-5.50) X10*6/uL Hgb (12.0-16.0) g/dl Hct (37-47) % MCV (80-98) fL MCH (27.0-33.0) pg MCHC (31.0-35.0) g/dl RDW (11.0-16.0) % Plt Count (160-400) X10*3/uL MPV (9.4-12.3) fL Immature Gran % (Auto) (0.0-0.4) % Neut % (Auto) (45-73) % Lymph % (Auto) (20-40) % [place] % (Auto) (2-11) % Eos % (Auto) (0-4) % Baso % (Auto) (0-2) % Lymph # (Auto) (1.2-4.9) X10*3/uL [place] # (Auto) (0.1-1.2) X10*3/uL Eos # (Auto) (0.0-0.4) X10*3/uL Baso # (Auto) (0.0-0.2) X10*3/uL Abs Immat Gran (auto) (0.00-0.03) X10*3/uL Absolute Neuts (auto) (2.0-8.3) X10*3/uL Absolute Nucleated RBC (0.0-0.012) X10*3/uL Nucleated RBC % (auto) (0.0-0.2) /100WBC PT (10.8-13.0) SEC INR (0.9-1.1) VBG pH (7.32-7.43) VBG pCO2 mmHg VBG pO2 mmHg VBG HCO3 (22-26) mmol/L VBG O2 Saturation % VBG Base Excess mmol/L Sodium (135-145) mmol/L Potassium (3.3-5.1) mmol/L Chloride (96-108) mmol/L Carbon Dioxide (22-29) mmol/L Anion Gap (12-20) BUN (9-16) mg/dL Creatinine (0.5-1.4) mg/dL Estim Creat Clear Calc Estimated GFR POC Glucose 99 78 84 (60-115) mg/dL Random Glucose (60-115) mg/dL Calcium (8.4-10.2) mg/dL COVID-19 (FRANCA) (Negative) COVID-19 Clin Com 02/19/21 02/19/21 Range/Units 23:19 23:38 WBC (4.8-10.8) X10*3/uL RBC (4.20-5.50) X10*6/uL Hgb (12.0-16.0) g/dl Hct (37-47) % MCV (80-98) fL MCH (27.0-33.0) pg MCHC (31.0-35.0) g/dl RDW (11.0-16.0) % Plt Count (160-400) X10*3/uL MPV (9.4-12.3) fL Immature Gran % (Auto) (0.0-0.4) % Neut % (Auto) (45-73) % Lymph % (Auto) (20-40) % [place] % (Auto) (2-11) % Eos % (Auto) (0-4) % Baso % (Auto) (0-2) % Lymph # (Auto) (1.2-4.9) X10*3/uL [place] # (Auto) (0.1-1.2) X10*3/uL Eos # (Auto) (0.0-0.4) X10*3/uL Baso # (Auto) (0.0-0.2) X10*3/uL Abs Immat Gran (auto) (0.00-0.03) X10*3/uL Absolute Neuts (auto) (2.0-8.3) X10*3/uL Absolute Nucleated RBC (0.0-0.012) X10*3/uL Nucleated RBC % (auto) (0.0-0.2) /100WBC PT (10.8-13.0) SEC INR (0.9-1.1) VBG pH (7.32-7.43) VBG pCO2 mmHg VBG pO2 mmHg VBG HCO3 (22-26) mmol/L VBG O2 Saturation % VBG Base Excess mmol/L Sodium (135-145) mmol/L Potassium (3.3-5.1) mmol/L Chloride (96-108) mmol/L Carbon Dioxide (22-29) mmol/L Anion Gap (12-20) BUN (9-16) mg/dL Creatinine (0.5-1.4) mg/dL Estim Creat Clear Calc Estimated GFR POC Glucose 92 100 (60-115) mg/dL Random Glucose (60-115) mg/dL Calcium (8.4-10.2) mg/dL COVID-19 (FRANCA) (Negative) COVID-19 Clin Com Imaging Data Chest x-ray: Attestation: I personally reviewed and interpreted this imaging study as follows: My impression: persistent but improving diffuse airspace disease as compared to 1 month ago Radiologist's impression: [facility] [place], [place] [id number] ReportSigned Patient: Caleb Montes#: [id number]: 5Acct:[id number]/Sex: 75 / FADM Date: 02/19/21Loc: EDAttending Dr: Ordering Physician: Jyotsna Cheung PA-C Date of Service: 02/19/21 Procedure(s): XR chest 1V Accession Number(s): [id number] cc: Jyotsna Cheung PA-C~ EXAMINATION: XR CHEST CLINICAL INFORMATION: Cough and wheeze COMPARISON: Chest x-ray and CTA chest 01/17/2021 TECHNIQUE: Frontal view of the chest was obtained. FINDINGS: Cardiac silhouette is at the upper limits of normal in size. Atherosclerotic disease of the aortic arch. Lungs are adequately aerated. Patchy bilateral airspace opacities are again noted but appear less prominent than imaging from one month ago. No gross lobar consolidation is identified. No pleural effusion or pneumothorax appreciated. XR/XR chest 1V IMPRESSION: Persistent but improving diffuse bilateral airspace disease. Dictated By:JEANETTE ALEXANDER MDSigned By:<Electronically signed by JEANETTE ALEXANDER MD in OV>02/19/[id number] DD/ 23TD/TT: Countersinker Balance Screw Hole: PD Discharge Plan Discharge Clinical Impression: Post-acute sequelae of COVID-19 (PASC), Hypoxia Prescriptions: No Action Toujeo Max U-300 SoloStar 300 unit/mL (3 mL) insulin pen 47 unit subcut DAILY 90 Days Qty: 18 RF: 2 atorvastatin 40 mg Tablet 40 mg PO BEDTIME RF: 0 cilostazol 100 mg Tablet 100 mg PO BID RF: 0 carvedilol 25 mg Tablet 25 mg PO Q12H RF: 0 fluconazole 150 mg Tablet 150 mg PO DAILY RF: 0 sucralfate 1 gram Tablet 2 g PO DAILY RF: 0 amlodipine 10 mg Tablet 10 mg PO DAILY RF: 0 montelukast 10 mg Tablet 10 mg PO BEDTIME RF: 0 hydralazine 50 mg Tablet 50 mg PO TID RF: 0 aspirin 81 mg Tablet 81 mg PO DAILY RF: 0 ergocalciferol (vitamin D2) 1,250 mcg (50,000 unit) Capsule 1,250 mcg PO QWEEK RF: 0 gabapentin 300 mg Tablet 300 mg PO BEDTIME RF: 0 linagliptin 5 mg Tablet 5 mg PO DAILY RF: 0
[2021-02-19 19:28] LABS: Glucose, Whole Blood 172 mg/dL (60-115)
[2021-02-19 19:45] LABS: Glucose, Whole Blood 124 mg/dL (60-115)
[2021-02-19 19:46] LABS: MANUAL DIFF FLAG NO
[2021-02-19 19:48] LABS: Basophils Percent Auto 0.4 % (0-2); Eosinophils Absolute Auto 0.1 X10*3/uL (0.0-0.4); Hemoglobin 8.6 g/dl (12.0-16.0); Imm Gran Abs Auto 0.15 X10*3/uL (0.00-0.03); Imm Gran Pct Auto 1.3 % (0.0-0.4); Lymphocytes Absolute Auto 1.9 X10*3/uL (1.2-4.9); Lymphocytes Percent Auto 17.1 % (20-40); Mean Corpuscular HGB Conc 33.1 g/dl (31.0-35.0); Mean Corpuscular Hemoglobin 24.9 pg (27.0-33.0); Mean Corpuscular Volume 75.1 fL (80-98); Mean Platelet Volume 8.3 fL (9.4-12.3); Monocytes Absolute Auto 1.2 X10*3/uL (0.1-1.2); Monocytes Percent Auto 10.3 % (2-11); NRBC Pct Auto 0.2 /100WBC (0.0-0.2); Neutrophils Absolute Auto 7.8 X10*3/uL (2.0-8.3); Neutrophils Percent Auto 69.9 % (45-73); Platelet Count 550 X10*3/uL (160-400); Red Blood Count 3.46 X10*6/uL (4.20-5.50); Red Cell Distribution Width 16.2 % (11.0-16.0); White Blood Count 11.2 X10*3/uL (4.8-10.8)
[2021-02-19 19:51] LABS: Venous Blood Gas Refer to POC result
[2021-02-19 19:51] LABS: VBG Base Excess -0.9 mmol/L; VBG HCO3 21 mmol/L (22-26); VBG pCO2 30 mmHg; VBG pH 7.46 (7.32-7.43)
[2021-02-19 19:56] LABS: INTERNATIONAL NORM RATIO 1.1 (0.9-1.1); Prothrombin Time 12.9 SEC (10.8-13.0)
[2021-02-19 19:59] LABS: Glucose, Whole Blood 94 mg/dL (60-115)
[2021-02-19 20:08] LABS: Anion Gap 15 (12-20); Blood Urea Nitrogen 12 mg/dL (9-16); Calcium 9.3 mg/dL (8.4-10.2); Carbon Dioxide 21 mmol/L (22-29); Chloride 104 mmol/L (96-108); Creatinine Clr Calc Pharmacy 30.9; Estimated Glomerular Filt Rate 35; Glucose Random 120 mg/dL (60-115); Potassium 3.5 mmol/L (3.3-5.1); Sodium 136 mmol/L (135-145)
[2021-02-19 20:15] LABS: Glucose, Whole Blood 172 mg/dL (60-115)
[2021-02-19 20:35] LABS: Glucose, Whole Blood 119 mg/dL (60-115)
[2021-02-19 20:46] VITALS: PULSE 102; RESP 16; O2SAT 91
[2021-02-19 20:48] LABS: Glucose, Whole Blood 131 mg/dL (60-115)
[2021-02-19] MEDS: Albuterol Sulfate (0.083%) 2.5 MG/3 ML VIAL.NEB INHALE (20:48)
[2021-02-19 20:52] VITALS: PULSE 96; O2SAT 92
--- NOTE | 2021-02-19 21:29 | PC.NURSE ---
LS IMPROVED AFTER NEB TX, SPO2 RANGING BETWEEN 89-93% ON RA, PLACED ON 2L O2. PA AWARE, CXR AT BEDSIDE
[2021-02-19 21:40] LABS: Glucose, Whole Blood 113 mg/dL (60-115)
[2021-02-19 21:57] LABS: Glucose, Whole Blood 94 mg/dL (60-115)
[2021-02-19 22:11] LABS: Glucose, Whole Blood 99 mg/dL (60-115)
[2021-02-19 22:32] LABS: COVID-19 Test Negative (Negative)
[2021-02-19 22:35] LABS: Glucose, Whole Blood 78 mg/dL (60-115)
[2021-02-19 22:49] LABS: Glucose, Whole Blood 84 mg/dL (60-115)
[2021-02-19 22:56] LABS: Glucose, Whole Blood 61 mg/dL (60-115)
[2021-02-19 23:22] VITALS: BP 142/62; PULSE 96; RESP 16; O2SAT 91
[2021-02-19 23:25] LABS: Glucose, Whole Blood 92 mg/dL (60-115)
[2021-02-19 23:42] VITALS: O2SAT 88
[2021-02-19 23:42] LABS: Glucose, Whole Blood 100 mg/dL (60-115)
[2021-02-20] VITALS (8 sets, daily range): BP systolic 121–155; BP diastolic 55–84; PULSE 86–106; RESP 17–20; TEMP 36.1–37.1; O2SAT 94–100; BMI 46.7
[2021-02-20 01:34] LABS: Glucose Urine UA NEG (NEG); Leukocyte Esterase Urine NEG (NEG); Nitrite Urine NEG (NEG); Specific Gravity - Urine <= 1.005 (1.005-1.025); Urine Blood NEG (NEG); Urine Ketones NEG (NEG); Urine Protein NEG (NEG-TRACE)
[2021-02-20 01:36] LABS: Appearance Urine CLEAR; Color Urine YELLOW
[2021-02-20 01:42] LABS: Glucose, Whole Blood 130 mg/dL (60-115)
[2021-02-20 01:56] LABS: B Type Natriuretic Peptide 388 pg/mL (<100)
[2021-02-20 03:04] LABS: B Type Natriuretic Peptide 360 pg/mL (<100)
[2021-02-20] MEDS: Heparin Sodium,Porcine 5,000 UNIT/ML VIAL 5000 UNIT SUBCUT ×2 (03:11→14:06)
[2021-02-20 03:13] LABS: Glucose, Whole Blood 138 mg/dL (60-115)
[2021-02-20] MEDS: Furosemide 40 MG/4 ML VIAL IVPUSH ×2 (05:07→08:53)
--- NOTE | 2021-02-20 07:00 | CA_ITS ---
Transthoracic Echocardiogram Patient (Last, First, Middle): Louis Montes, Gender: Female Date of : 1945 Age: 75 Procedure Date: 02/20/2021 Procedure Type: Transthoracic Echocardiogram Location: [facility] [place] Height: 142.24 cm Weight: 94.35 kg BSA: 1.81 m2 Heart Rate: bpm BP: 121 / 56 mmHg Mule Tender: ADRIANO Referring MD: Elsie Delaney MD Juice Standardizer: Esteban Sexton MD Symptoms: chf Study Quality: Technically Difficult ECG Rhythm: Sinus Conclusions: - 1. Severe aortic stenosis with valve area of 0.65 centimeters sq with mean gradient of 42 mm mercury 2. Normal LV systolic function with impaired relaxation filling pattern and elevated filling pressures 3. Mildly dilated left atrium 4. Normal measured RV systolic pressure 5. No gross pericardial effusion Findings Left Ventricle Normal left ventricular size, thickness, and systolic function. The visually estimated ejection fraction is between 55-60%. Spectral Doppler is indicative of an impaired relaxation filling pattern. Elevated filling pressures. E/E prime ratio is >15, consistent with elevated filling pressures. Right Ventricle Normal right ventricular cavity size and systolic function. Atria The left atrium is mildly dilated. Interatrial shunt cannot be excluded. The right atrium was not well visualized. Aortic Valve There is severe calcification of the aortic valve. There is moderate thickening of the aortic valve. There is severe aortic valve stenosis. The mean gradient is 42 mmHg. The aortic valve area is 0.65 cm2. There is no aortic valve regurgitation. However her valve area severity may be over estimated due to measured LVOT diameter Mitral Valve There is mild anterior and posterior mitral leaflet thickening. There is mild mitral annular calcification. There is mild mitral valve regurgitation. There is no mitral valve stenosis. Pulmonic Valve The pulmonic valve was not well visualized. Tricuspid Valve Likely normal tricuspid valve structure and function. There is mild tricuspid valve regurgitation. The right ventricular systolic pressure is normal. The right ventricular systolic pressure is 25 mmHg. Normal right atrial pressure. There is no evidence of pulmonary hypertension. Great Vessels All visible segments of the aorta are normal in size. The pulmonary artery was not well visualized. Venous The inferior vena cava was not well visualized. Pericardium/Pleural There is no evidence of pericardial effusion. Prior Study Comparison No previous study in the last 5 years for comparison Measurements M-Mode Liner Measurements Normals - Women/Men AOV Cusps: 1.40 1.5-2.6 cm/m2 2D Linear Measurements IVSd: 1.00 0.6-0.9/0.6-1.0 cm LVIDd: 4.24 3.9-5.3/4.2-5.9 cm LVIDd Index: 2.34 2.4-3.2/2.2-3.1 cm/m2 LVIDs: 2.91 2.0-3.6 cm LVPWd: 1.01 0.7-1.1 cm Ao Root: 2.40 2.1-3.5 cm LA Diam: 3.40 2.7-3.8/3.0-4.0 cm LAIDs Index: 1.88 1.5-2.3 cm/m2 LV Mass: 174.63 67-162/88-224 g LV Mass Index: 96.48 43-95/49-115 g/m2 LVOT Diam: 1.80 3.0+(-)1.3 cm 2D Systolic Function EF 4C: 49.40 >55% EF 2C: 59.50 >55% EF BiP: 53.20 >55% Mitral Valve MV Pk E: 1.06 MV PK A: 1.16 MV Decel Time: 187.00 E/A: 0.90 E'Lateral: 5.98 E'Medial: 5.66 E/E' Med: 18.70 E/E' Lat: 17.70 PHT: 55.00 MVA PHT: 4.00 Decel Powell: 5.68 Aortic Valve AoV Pk Ned: 3.97 AoV Mn Ned: 3.09 AoV VTI: 0.89 AoV Pk Grad: 63.00 Aov Mn Grad: 42.00 JULIETTE Cont.VTI: 0.65 AI Pk Ned: 3.54 AI Powell: 1.59 LVOT LVOT Pk Ned: 0.93 LVOT Mn Ned: 0.68 LVOT VTI: 0.23 LVOT Pk Grad: 3.00 LVOT Mn Grad: 2.00 LVOT Diam: 1.80 LVOT Area: 2.54 Diastolic Function MV Pk E: 1.06 MV Pk A: 1.16 E/A: 0.90 E'Medial: 5.66 E/E' Med: 18.70 E' Laterial: 5.98 E/E' Lat: 17.70 Tricuspid Valve TR Pk Ned: 2.36 TR Pk Grad: 22.00 RA Press: 3.00 RVSP: 25.00 Great Vessels Aorta Ao Root-2D: 2.40 2.0-3.7 cm Ao Asc: 2.90 2.1-3.4 cm Ao Arch: 2.30 Pulmonary Valve PV Pk Ned: 1.22 Peak PV Grad: 6.00 Updated in Other Vendor System with Status of Final Esteban Sexton MD electronically signed on 02/20/2021 12:29:54 PM with status of Final
[2021-02-20 07:06] LABS: Glucose, Whole Blood 188 mg/dL (60-115)
--- NOTE | 2021-02-20 07:45 | P.HPHOSP_ITS ---
History of Present Illness Date of Service: 02/20/21 Chief Complaint: hypoglycemia Pt kittitian speaking and hx obtained with help of county program technician lorenzo ambrosio a 75 yo F with hx of recent covid infection in January, CKD, DM, HDL, GERD, HTN, who presents to the hospital for taking high units of insulin by mistake. Her daughter at beside reports that she came back from [place] today and by mistake took 50 units of lispro. Pt was asymptomatic but she was worried therefore brought her to the hospital. pt reports no dizziness, heache or change in vision., no neurological deficits. Pt reports shortness of breath, cough, lower extremity edema, Orhtopnea and pnd. She is complaining of increased gas in the abdomen, although denies n/v, no abd pain, and no diarrhea or constipation. No urinary symptoms. No fever of chills. Vitals on arrival HDS, no no significant abnormality . pt was noted to be 91% on RA> She was ambulated and dessated to 87% on RA. Labs are significant for WBC of 11.2, Hgb of 8.6 which is higher than her baseline, plts of 550, Cr of 1.44 with baseline around 1.0, glucose on arrival 62 , has a BNP of 36, UA negative. CXR shows persistent but improving diffuse bilateral airspace disease. 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 If so, by whom?: No Do you feel safe in your current relationship?: No Current Relationship Is there a partner from a previous relationship who is making you feel unsafe now?: No Are you made to feel afraid or neglected: No Advance Directives: No Advance Directives Information Provided: Yes Do you have thoughts of harming others: None Do you have a plan to hurt others: No Plan Recently lost weight without trying: No Nutrition Risks: No Nutritional Risk Patient : No : No Poor oral hygiene: No service: No Current occupational status: unemployed Gender identity: female Meds Allergies Allergy/AdvReac Type Severity Reaction Status Date / Time ibuprofen [From MOTRIN] Allergy Intermediate RASH Verified 01/18/21 02:29 oxycodone [From PERCOCET] Allergy Intermediate ITCHING Verified 01/18/21 02:29 acetaminophen [Percocet] Allergy Unknown unknown Verified 01/18/21 02:29 Motrin Allergy Unknown high blood Verified 01/18/21 02:29 pressure Active Medications: Current Medications Generic Name Dose Route Start Last Admin Trade Name Freq PRN Reason Stop Dose Admin Acetaminophen 650 mg 02/20/21 02:02 Acetaminophen 325 Mg Tablet PO Q6H PRN Pain, Mild (Pain Scale 1-3) Dextrose 25 gm 02/19/21 19:20 02/19/21 20:02 Dextrose 50 % 25 Gm/50 Ml Vial IVPUSH 25 gm ONCE PRN Administration POC <60 Docusate Sodium 100 mg 02/20/21 02:02 Docusate Sodium 100 Mg Capsule PO DAILY PRN Constipation Furosemide 40 mg 02/20/21 09:00 Furosemide 40 Mg/4 Ml Vial IVPUSH DAILY HANANE Protocol Heparin Sodium (Porcine) 5,000 unit 02/20/21 03:00 02/20/21 03:11 Heparin Sodium,Porcine 5,000 Unit/Ml Vial SUBCUT 5,000 unit Q12H HANANE Administration Ondansetron HCl 4 mg 02/20/21 02:02 Ondansetron Hcl 4 Mg/2 Ml Vial IVPUSH Q8H PRN Nausea and Vomiting Pharmacy Consult 1 each 02/20/21 00:29 Consult Rx Perform Med Rec MISCELLANE ONCE PRN Consult order Sodium Chloride 3 ml 02/20/21 08:00 0.9 % Sodium Chloride Flush 3 Ml Syringe [facility] Medications Medication Instructions Recorded Confirmed Last Taken Type amlodipine 10 mg PO DAILY 01/18/21 01/18/21 Unknown History aspirin 81 mg PO DAILY 01/18/21 01/18/21 Unknown History atorvastatin 40 mg PO BEDTIME 01/18/21 01/18/21 Unknown History carvedilol 25 mg PO Q12H 01/18/21 01/18/21 Unknown History cilostazol 100 mg PO BID 01/18/21 01/18/21 Unknown History ergocalciferol (vitamin D2) 1,250 mcg PO QWEEK 01/18/21 01/18/21 Unknown History fluconazole 150 mg PO DAILY 01/18/21 01/18/21 Unknown History gabapentin 300 mg PO BEDTIME 01/18/21 01/18/21 Unknown History hydralazine 50 mg PO TID 01/18/21 01/18/21 Unknown History linagliptin 5 mg PO DAILY 01/18/21 01/18/21 Unknown History montelukast 10 mg PO BEDTIME 01/18/21 01/18/21 Unknown History sucralfate 2 g PO DAILY 01/18/21 01/18/21 Unknown History Physical Exam Vital Signs and Narrative: Vital Signs: Last Vital Signs Temp 98.1 F 02/20/21 03:07 Pulse 106 H 02/20/21 03:07 Resp 18 02/20/21 03:07 BP 121/56 L 02/20/21 03:07 Pulse Ox 96 02/20/21 03:07 Body Mass Index 46.7 Const: General: cooperative and no acute distress Orientation/consciousness: patient oriented x3 Eyes: General: appearance normal, both eyes and all related structures Resp: Effort & Inspection: normal respiratory effort and able to speak in complete sentences Cardio: Rate: regular rate Rhythm: regular rhythm GI: Palpation (GI): Soft to palpation Auscultation: normal bowel sounds Skin: General skin exam: no rashes or lesions noted Neuro: General: patient oriented x3 Cognition (Neuro): normal cognition Extrem: Other: 2+ lower extremity edema General: Yes normal to inspection Results Labs CBC and Chem 7: 02/19/21 19:42 02/19/21 19:42 Labs: Laboratory Results - last 24 hr 02/19/21 02/19/21 02/19/21 19:05 19:24 19:40 MCV MCH MCHC RDW Plt Count MPV Immature Gran % (Auto) Neut % (Auto) Lymph % (Auto) [place] % (Auto) Eos % (Auto) Baso % (Auto) Lymph # (Auto) [place] # (Auto) Eos # (Auto) Baso # (Auto) Abs Immat Gran (auto) Absolute Neuts (auto) Absolute Nucleated RBC Nucleated RBC % (auto) PT INR VBG pH VBG pCO2 VBG pO2 VBG HCO3 VBG O2 Saturation VBG Base Excess Anion Gap Estim Creat Clear Calc Estimated GFR POC Glucose 62 172 H 124 H Random Glucose Calcium B-Natriuretic Peptide Urine Color Urine Appearance Urine pH Ur Specific [place] Urine Protein Urine Glucose (UA) Urine Ketones Urine Blood Urine Nitrite Ur Leukocyte Esterase COVID-19 (FRANCA) COVID-19 [employer] 02/19/21 02/19/21 02/19/21 19:42 19:42 19:42 MCV 75.1 L MCH 24.9 L MCHC 33.1 RDW 16.2 H Plt Count 550 H MPV 8.3 L Immature Gran % (Auto) 1.3 H Neut % (Auto) 69.9 Lymph % (Auto) 17.1 L [place] % (Auto) 10.3 Eos % (Auto) 1.0 Baso % (Auto) 0.4 Lymph # (Auto) 1.9 [place] # (Auto) 1.2 Eos # (Auto) 0.1 Baso # (Auto) 0.0 Abs Immat Gran (auto) 0.15 H Absolute Neuts (auto) 7.8 Absolute Nucleated RBC 0.020 H Nucleated RBC % (auto) 0.2 PT 12.9 INR 1.1 VBG pH VBG pCO2 VBG pO2 VBG HCO3 VBG O2 Saturation VBG Base Excess Anion Gap 15 Estim Creat Clear Calc 30.9 Estimated GFR 35 POC Glucose Random Glucose 120 H Calcium 9.3 D B-Natriuretic Peptide Urine Color Urine Appearance Urine pH Ur Specific [place] Urine Protein Urine Glucose (UA) Urine Ketones Urine Blood Urine Nitrite Ur Leukocyte Esterase COVID-19 (FRANCA) COVID-19 [employer] 05/19/21 05/19/21 05/19/21 19:45 19:55 20:11 MCV MCH MCHC RDW Plt Count MPV Immature Gran % (Auto) Neut % (Auto) Lymph % (Auto) [place] % (Auto) Eos % (Auto) Baso % (Auto) Lymph # (Auto) [place] # (Auto) Eos # (Auto) Baso # (Auto) Abs Immat Gran (auto) Absolute Neuts (auto) Absolute Nucleated RBC Nucleated RBC % (auto) PT INR VBG pH 7.46 H VBG pCO2 30 VBG pO2 14 VBG HCO3 21 L VBG O2 Saturation 98.0 VBG Base Excess -0.9 Anion Gap Estim Creat Clear Calc Estimated GFR POC Glucose 94 172 H Random Glucose Calcium B-Natriuretic Peptide Urine Color Urine Appearance Urine pH Ur Specific [place] Urine Protein Urine Glucose (UA) Urine Ketones Urine Blood Urine Nitrite Ur Leukocyte Esterase COVID-19 (FRANCA) COVID-19 [employer] 02/19/21 02/19/21 02/19/21 20:30 20:45 21:08 MCV MCH MCHC RDW Plt Count MPV Immature Gran % (Auto) Neut % (Auto) Lymph % (Auto) [place] % (Auto) Eos % (Auto) Baso % (Auto) Lymph # (Auto) [place] # (Auto) Eos # (Auto) Baso # (Auto) Abs Immat Gran (auto) Absolute Neuts (auto) Absolute Nucleated RBC Nucleated RBC % (auto) PT INR VBG pH VBG pCO2 VBG pO2 VBG HCO3 VBG O2 Saturation VBG Base Excess Anion Gap Estim Creat Clear Calc Estimated GFR POC Glucose 119 H 131 H 61 Random Glucose Calcium B-Natriuretic Peptide Urine Color Urine Appearance Urine pH Ur Specific [place] Urine Protein Urine Glucose (UA) Urine Ketones Urine Blood Urine Nitrite Ur Leukocyte Esterase COVID-19 (FRANCA) COVID-[employer] 02/19/21 02/19/21 02/19/21 21:36 21:52 22:03 MCV MCH MCHC RDW Plt Count MPV Immature Gran % (Auto) Neut % (Auto) Lymph % (Auto) [place] % (Auto) Eos % (Auto) Baso % (Auto) Lymph # (Auto) [place] # (Auto) Eos # (Auto) Baso # (Auto) Abs Immat Gran (auto) Absolute Neuts (auto) Absolute Nucleated RBC Nucleated RBC % (auto) PT INR VBG pH VBG pCO2 VBG pO2 VBG HCO3 VBG O2 Saturation VBG Base Excess Anion Gap Estim Creat Clear Calc Estimated GFR POC Glucose 113 94 Random Glucose Calcium B-Natriuretic Peptide Urine Color Urine Appearance Urine pH Ur Specific [place] Urine Protein Urine Glucose (UA) Urine Ketones Urine Blood Urine Nitrite Ur Leukocyte Esterase COVID-19 (FRANCA) Negative COVID-19 27 bards Com See Note 02/19/21 02/19/21 02/19/21 22:07 22:31 22:46 MCV MCH MCHC RDW Plt Count MPV Immature Gran % (Auto) Neut % (Auto) Lymph % (Auto) [place] % (Auto) Eos % (Auto) Baso % (Auto) Lymph # (Auto) [place] # (Auto) Eos # (Auto) Baso # (Auto) Abs Immat Gran (auto) Absolute Neuts (auto) Absolute Nucleated RBC Nucleated RBC % (auto) PT INR VBG pH VBG pCO2 VBG pO2 VBG HCO3 VBG O2 Saturation VBG Base Excess Anion Gap Estim Creat Clear Calc Estimated GFR POC Glucose 99 78 84 Random Glucose Calcium B-Natriuretic Peptide Urine Color Urine Appearance Urine pH Ur Specific [place] Urine Protein Urine Glucose (UA) Urine Ketones Urine Blood Urine Nitrite Ur Leukocyte Esterase COVID-19 (FRANCA) COVID-[employer] 02/19/21 02/19/21 02/20/21 23:19 23:38 01:13 MCV MCH MCHC RDW Plt Count MPV Immature Gran % (Auto) Neut % (Auto) Lymph % (Auto) [place] % (Auto) Eos % (Auto) Baso % (Auto) Lymph # (Auto) [place] # (Auto) Eos # (Auto) Baso # (Auto) Abs Immat Gran (auto) Absolute Neuts (auto) Absolute Nucleated RBC Nucleated RBC % (auto) PT INR VBG pH VBG pCO2 VBG pO2 VBG HCO3 VBG O2 Saturation VBG Base Excess Anion Gap Estim Creat Clear Calc Estimated GFR POC Glucose 92 100 Random Glucose Calcium B-Natriuretic Peptide Urine Color YELLOW Urine Appearance CLEAR Urine pH 6.0 Ur Specific [place] <= 1.005 Urine Protein NEG Urine Glucose (UA) NEG Urine Ketones NEG Urine Blood NEG Urine Nitrite NEG Ur Leukocyte Esterase NEG COVID-19 (FRANCA) COVID-[employer] 02/20/21 02/20/21 02/20/21 01:27 01:34 02:13 MCV MCH MCHC RDW Plt Count MPV Immature Gran % (Auto) Neut % (Auto) Lymph % (Auto) [place] % (Auto) Eos % (Auto) Baso % (Auto) Lymph # (Auto) [place] # (Auto) Eos # (Auto) Baso # (Auto) Abs Immat Gran (auto) Absolute Neuts (auto) Absolute Nucleated RBC Nucleated RBC % (auto) PT INR VBG pH VBG pCO2 VBG pO2 VBG HCO3 VBG O2 Saturation VBG Base Excess Anion Gap Estim Creat Clear Calc Estimated GFR POC Glucose 130 H Random Glucose Calcium B-Natriuretic Peptide 388 H 360 H Urine Color Urine Appearance Urine pH Ur Specific [place] Urine Protein Urine Glucose (UA) Urine Ketones Urine Blood Urine Nitrite Ur Leukocyte Esterase COVID-19 (FRANCA) COVID-19 [employer] 02/20/21 02/20/21 03:02 07:00 MCV MCH MCHC RDW Plt Count MPV Immature Gran % (Auto) Neut % (Auto) Lymph % (Auto) [place] % (Auto) Eos % (Auto) Baso % (Auto) Lymph # (Auto) [place] # (Auto) Eos # (Auto) Baso # (Auto) Abs Immat Gran (auto) Absolute Neuts (auto) Absolute Nucleated RBC Nucleated RBC % (auto) PT INR VBG pH VBG pCO2 VBG pO2 VBG HCO3 VBG O2 Saturation VBG Base Excess Anion Gap Estim Creat Clear Calc Estimated GFR POC Glucose 138 H 188 H Random Glucose Calcium B-Natriuretic Peptide Urine Color Urine Appearance Urine pH Ur Specific [place] Urine Protein Urine Glucose (UA) Urine Ketones Urine Blood Urine Nitrite Ur Leukocyte Esterase COVID-19 (FRANCA) COVID-19 Clin Com Imaging Radiologist's Impressions: Impressions Chest X-Ray 02/19/21 21:24 IMPRESSION: Persistent but improving diffuse bilateral airspace disease. Assessment and Plan (1) Poisoning by insulin and oral hypoglycemic [antidiabetic] drugs, accidental (unintentional), initial encounter: Status: Acute (2) Hypoxia: Status: Acute (3) Post-acute sequelae of COVID-19 (PASC): Status: Acute (4) CHF exacerbation: Status: Acute This is a 75 yo F who was recently admitted anf managed for COVID 19 pna, returns to to hospital after taking 50 units of lispro by mistake found to have fluid overload and hypoxia # Accidental insulin overdose - No significant hypoglycemia, presented with glucose of 62 - no neurological deficits - Will continue her home insulin now that her glucose has stabilized - daughter reports that insulin is a new medication for her since being in the hospital recently , therefore will consult consumer educator # Hypoxia - Noted to dessat to 87% on ambulation - Most likely a combination of post covid sequelae as well as chf - has elevated BNP, orthopnea, PND and lower extremity edema - CXR as above - will obtain trop but denies any chest pain - tx of CHF as below - wean off O2 as tolaerated # CHF exacerbation - Symptoms as above, with orthopnea, PND, lower extremitiy edema and hypoxia - Will start her on IV lasix, low sodium diet, and strict I&O, daily weight - Echocardiogram - cardiology consult # HTN - stable - continue carvidalol and amlodipine # ARLEY - BL cr of 1.0, now 1.4 most likely 2/2 HF - Tx HF as above - follow BMP DVT ppx: Heparin Subq
[2021-02-20 08:26] LABS: Glucose, Whole Blood 76 mg/dL (60-115)
[2021-02-20] MEDS: 0.9 % Sodium Chloride Flush 3 ML SYRINGE IVFLUSH ×2 (08:54→18:09)
[2021-02-20 09:11] LABS: Anion Gap 16 (12-20); Blood Urea Nitrogen 13 mg/dL (9-16); Calcium 9.1 mg/dL (8.4-10.2); Carbon Dioxide 23 mmol/L (22-29); Chloride 105 mmol/L (96-108); Creatinine Clr Calc Pharmacy 36.9; Estimated Glomerular Filt Rate 42; Glucose Random 184 mg/dL (60-115); Sodium 140 mmol/L (135-145)
--- NOTE | 2021-02-20 10:17 | PM.CNCAR ---
History of Present Illness History of Present Illness Date of Service: 02/20/21 Requesting physician: Huma Shoemaker Consult reason: congestive heart failure Chief complaint: Hypoxic Respiratory failure Narrative: I was asked to see Louis in cardiology consultation today for elevated BNP with leg edema and shortness of breath with hypoxemic respiratory failure. History was obtained with help of a sign language interpreter. Patient came in the hospital after release from the retirement yesterday and went home and by mistake took 50 units of list pro insulin. She was confused about the dosing. The daughter got concerned about it and brought to the emergency room. Her sugars initially were 62. She did not suffer any significant hypoglycemic symptoms. Her glucose has not been controlled. However she was noted to have fluid overload as well as elevated BNP. Chest x-ray findings consistent with resolving COVID pneumonia. Patient was admitted recently to the hospital with COVID pneumonia and had hypoxemic respiratory failure. Prior to that patient says that she was seeing a president + publisher at [facility] for a murmur and was told that she will require valve surgery. Prior to the court infection she was pretty active as per her and was able to take care of her daily routine. She is frustrated about this new change in her health. She says she has been noticing increasing leg swelling. Also noticing shortness of breath and symptoms when she would lay down and get short of breath. Denies lightheadedness, syncope, chest pain. She also has cough productive of phlegm which is yellowish in nature. Prior history of diabetes and hypertension but without any history of myocardial infarction or congestive heart failure as per her. Review of Systems Constitutional: Constitutional: Reports fatigue and Denies fever(s) Cardiovascular: Cardiovascular: Denies chest pain, Reports leg edema, Denies palpitations, Reports dyspnea on exertion and Reports orthopnea Respiratory: Respiratory: Reports cough, Reports excessive phlegm production and Reports dyspnea on exertion Gastrointestinal: Gastrointestinal: Reports no additional gastrointestinal complaints Genitourinary: Genitourinary: Reports no additional female genitourinary complaints Neurologic: Reports system reviewed and no additional complaints, except as documented Endocrine: Endocrine: Reports no additional endocrine complaints, Reports fatigue and Denies palpitations Hematologic/Lymphatic: Hematologic/Lymphatic: Reports no additional hematologic/lymphatic complaints [facility] Past Medical History Medical History (Updated 02/20/21 @ 10:24 by Esteban Sexton MD) Aortic stenosis Asthma Chronic kidney disease CKD (chronic kidney disease) stage 3, GFR 30-59 ml/min Diabetes mellitus Diabetic nephropathy associated with type 2 diabetes mellitus Diabetic polyneuropathy associated with type 2 diabetes mellitus Dyslipidemia GERD (gastroesophageal reflux disease) Hypertension Infected cyst of skin 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 If so, by whom?: No Do you feel safe in your current relationship?: No Current Relationship Is there a partner from a previous relationship who is making you feel unsafe now?: No Are you made to feel afraid or neglected: No Advance Directives: No Advance Directives Information Provided: Yes Do you have thoughts of harming others: None Do you have a plan to hurt others: No Plan Recently lost weight without trying: No Nutrition Risks: No Nutritional Risk Patient : No : No Poor oral hygiene: No service: No Current occupational status: unemployed Gender identity: female Meds Allergies Allergy/AdvReac Type Severity Reaction Status Date / Time ibuprofen [From MOTRIN] Allergy Intermediate RASH Verified 01/18/21 02:29 oxycodone [From PERCOCET] Allergy Intermediate ITCHING Verified 01/18/21 02:29 acetaminophen [Percocet] Allergy Unknown unknown Verified 01/18/21 02:29 Motrin Allergy Unknown high blood Verified 01/18/21 02:29 pressure Active Medications: Current Medications Generic Name Dose Route Start Last Admin Trade Name Freq PRN Reason Stop Dose Admin Acetaminophen 650 mg 02/20/21 02:02 Acetaminophen 325 Mg Tablet PO Q6H PRN Pain, Mild (Pain Scale 1-3) Dextrose 25 gm 02/19/21 19:20 02/19/21 20:02 Dextrose 50 % 25 Gm/50 Ml Vial IVPUSH 25 gm ONCE PRN Administration POC <60 Docusate Sodium 100 mg 02/20/21 02:02 Docusate Sodium 100 Mg Capsule PO DAILY PRN Constipation Furosemide 40 mg 02/20/21 09:00 02/20/21 08:53 Furosemide 40 Mg/4 Ml Vial IVPUSH 40 mg DAILY HANANE Administration Protocol Heparin Sodium (Porcine) 5,000 unit 02/20/21 03:00 02/20/21 03:11 Heparin Sodium,Porcine 5,000 Unit/Ml Vial SUBCUT 5,000 unit Q12H HANANE Administration Ondansetron HCl 4 mg 02/20/21 02:02 Ondansetron Hcl 4 Mg/2 Ml Vial IVPUSH Q8H PRN Nausea and Vomiting Pharmacy Consult 1 each 02/20/21 00:29 Consult Rx Perform Med Rec MISCELLANE ONCE PRN Consult order Sodium Chloride 3 ml 02/20/21 08:00 02/20/21 08:54 0.9 % Sodium Chloride Flush 3 Ml Syringe IVFLUSH 3 ml QSHIFT HANANE Administration Home Medications Medication Instructions Recorded Confirmed Last Taken Type amlodipine 10 mg PO DAILY 01/18/21 02/20/21 Unknown History atorvastatin 40 mg PO BEDTIME 01/18/21 02/20/21 Unknown History carvedilol 25 mg PO BID 01/18/21 02/20/21 Unknown History cilostazol 100 mg PO BID 01/18/21 02/20/21 Unknown History fluconazole 150 mg PO DAILY 01/18/21 02/20/21 Unknown History hydralazine 50 mg PO TID 01/18/21 02/20/21 Unknown History linagliptin 5 mg PO DAILY 01/18/21 02/20/21 Unknown History montelukast 10 mg PO BEDTIME 01/18/21 02/20/21 Unknown History sucralfate 2 g PO DAILY 01/18/21 02/20/21 Unknown History gabapentin 300 mg PO BEDTIME 02/20/21 02/20/21 Unknown History insulin glargine [Lantus Solostar 47 unit SUBCUT DAILY 02/20/21 02/20/21 Unknown History U-100 Insulin] insulin lispro 1 sliding scale dose SUBCUT TIDAC 02/20/21 02/20/21 Unknown History Physical Exam Vital Signs: Vital Signs: Last Vital Signs Temp 97.0 F 02/20/21 07:55 Pulse 99 02/20/21 07:55 Resp 18 02/20/21 07:55 BP 122/55 L 02/20/21 07:55 Pulse Ox 100 02/20/21 07:55 Body Mass Index 46.7 Const: General: cooperative, comfortable, alert, awake and acute distress moderate and respiratory Nutritional Appearance: obese Orientation/consciousness: patient oriented x3 HENMT: Head: Yes normocephalic and Yes atraumatic Neck: Neck: Yes trachea midline, Yes supple and Yes JVD Resp: Effort & Inspection: normal respiratory effort Auscultation: rales bilateral and diminished lung sounds Cardio: Jugular venous distension: JVD Palpation: normal PMI Rate: regular rate Rhythm: regular rhythm Heart sounds: S1 normal heart sound present and Murmur heart sound present systolic late, decrescendo, crescendo and III/ GI: Auscultation: normal bowel sounds Neuro: General: patient oriented x3 and no focal motor deficits Extrem: General: No clubbing, No cyanosis and Yes edema Psych: Appearance: grossly normal Results Labs and Meds Result diagrams: 02/19/21 19:42 02/20/21 07:46 Lab results: Laboratory Results - last 24 hr 02/19/21 02/19/21 02/19/21 18:50 19:05 19:24 WBC RBC Hgb Hct MCV MCH MCHC RDW Plt Count MPV Immature Gran % (Auto) Neut % (Auto) Lymph % (Auto) Kidder % (Auto) Eos % (Auto) Baso % (Auto) Lymph # (Auto) Kidder # (Auto) Eos # (Auto) Baso # (Auto) Abs Immat Gran (auto) Absolute Neuts (auto) Absolute Nucleated RBC Nucleated RBC % (auto) PT INR VBG pH VBG pCO2 VBG pO2 VBG HCO3 VBG O2 Saturation VBG Base Excess Sodium Potassium Chloride Carbon Dioxide Anion Gap BUN Creatinine Estim Creat Clear Calc Estimated GFR POC Glucose 76 62 172 H Random Glucose Calcium B-Natriuretic Peptide Urine Color Urine Appearance Urine pH Ur Specific [place] Urine Protein Urine Glucose (UA) Urine Ketones Urine Blood Urine Nitrite Ur Leukocyte Esterase COVID-19 (FRANCA) COVID-19 Clin Com 02/19/21 02/19/21 02/19/21 19:40 19:42 19:42 WBC 11.2 H RBC 3.46 L Hgb 8.6 L Hct 26.0 L MCV 75.1 L MCH 24.9 L MCHC 33.1 RDW 16.2 H Plt Count 550 H MPV 8.3 L Immature Gran % (Auto) 1.3 H Neut % (Auto) 69.9 Lymph % (Auto) 17.1 L Kidder % (Auto) 10.3 Eos % (Auto) 1.0 Baso % (Auto) 0.4 Lymph # (Auto) 1.9 Kidder # (Auto) 1.2 Eos # (Auto) 0.1 Baso # (Auto) 0.0 Abs Immat Gran (auto) 0.15 H Absolute Neuts (auto) 7.8 Absolute Nucleated RBC 0.020 H Nucleated RBC % (auto) 0.2 PT 12.9 INR 1.1 VBG pH VBG pCO2 VBG pO2 VBG HCO3 VBG O2 Saturation VBG Base Excess Sodium Potassium Chloride Carbon Dioxide Anion Gap BUN Creatinine Estim Creat Clear Calc Estimated GFR POC Glucose 124 H Random Glucose Calcium B-Natriuretic Peptide Urine Color Urine Appearance Urine pH Ur Specific [place] Urine Protein Urine Glucose (UA) Urine Ketones Urine Blood Urine Nitrite Ur Leukocyte Esterase COVID-19 ([facility]ANCA) COVID-[employer] 02/19/21 02/19/21 02/19/21 19:42 19:45 19:55 WBC RBC Hgb Hct MCV MCH MCHC RDW Plt Count MPV Immature Gran % (Auto) Neut % (Auto) Lymph % (Auto) Kidder % (Auto) Eos % (Auto) Baso % (Auto) Lymph # (Auto) Kidder # (Auto) Eos # (Auto) Baso # (Auto) Abs Immat Gran (auto) Absolute Neuts (auto) Absolute Nucleated RBC Nucleated RBC % (auto) PT INR VBG pH 7.46 H VBG pCO2 30 VBG pO2 14 VBG HCO3 21 L VBG O2 Saturation 98.0 VBG Base Excess -0.9 Sodium 136 Potassium 3.5 Chloride 104 Carbon Dioxide 21 L Anion Gap 15 BUN 12 Creatinine 1.44 H Estim Creat Clear Calc 30.9 Estimated GFR 35 POC Glucose 94 Random Glucose 120 H Calcium 9.3 D B-Natriuretic Peptide Urine Color Urine Appearance Urine pH Ur Specific [place] Urine Protein Urine Glucose (UA) Urine Ketones Urine Blood Urine Nitrite Ur Leukocyte Esterase COVID-19 ([facility]CA) COVID-[employer] 02/19/21 02/19/21 02/19/21 20:11 20:30 20:45 WBC RBC Hgb Hct MCV MCH MCHC RDW Plt Count MPV Immature Gran % (Auto) Neut % (Auto) Lymph % (Auto) Kidder % (Auto) Eos % (Auto) Baso % (Auto) Lymph # (Auto) Kidder # (Auto) Eos # (Auto) Baso # (Auto) Abs Immat Gran (auto) Absolute Neuts (auto) Absolute Nucleated RBC Nucleated RBC % (auto) PT INR VBG pH VBG pCO2 VBG pO2 VBG HCO3 VBG O2 Saturation VBG Base Excess Sodium Potassium Chloride Carbon Dioxide Anion Gap BUN Creatinine Estim Creat Clear Calc Estimated GFR POC Glucose 172 H 119 H 131 H Random Glucose Calcium B-Natriuretic Peptide Urine Color Urine Appearance Urine pH Ur Specific [place] Urine Protein Urine Glucose (UA) Urine Ketones Urine Blood Urine Nitrite Ur Leukocyte Esterase COVID-19 ([facility]ANCA) COVID-19 [facility] 02/19/21 02/19/21 02/19/21 21:08 21:36 21:52 WBC RBC Hgb Hct MCV MCH MCHC RDW Plt Count MPV Immature Gran % (Auto) Neut % (Auto) Lymph % (Auto) Kidder % (Auto) Eos % (Auto) Baso % (Auto) Lymph # (Auto) Kidder # (Auto) Eos # (Auto) Baso # (Auto) Abs Immat Gran (auto) Absolute Neuts (auto) Absolute Nucleated RBC Nucleated RBC % (auto) PT INR VBG pH VBG pCO2 VBG pO2 VBG HCO3 VBG O2 Saturation VBG Base Excess Sodium Potassium Chloride Carbon Dioxide Anion Gap BUN Creatinine Estim Creat Clear Calc Estimated GFR POC Glucose 61 113 94 Random Glucose Calcium B-Natriuretic Peptide Urine Color Urine Appearance Urine pH Ur Specific [place] Urine Protein Urine Glucose (UA) Urine Ketones Urine Blood Urine Nitrite Ur Leukocyte Esterase COVID-19 ([facility]ANCA) COVID-[employer] 02/19/21 02/19/21 02/19/21 22:03 22:07 22:31 WBC RBC Hgb Hct MCV MCH MCHC RDW Plt Count MPV Immature Gran % (Auto) Neut % (Auto) Lymph % (Auto) Kidder % (Auto) Eos % (Auto) Baso % (Auto) Lymph # (Auto) Kidder # (Auto) Eos # (Auto) Baso # (Auto) Abs Immat Gran (auto) Absolute Neuts (auto) Absolute Nucleated RBC Nucleated RBC % (auto) PT INR VBG pH VBG pCO2 VBG pO2 VBG HCO3 VBG O2 Saturation VBG Base Excess Sodium Potassium Chloride Carbon Dioxide Anion Gap BUN Creatinine Estim Creat Clear Calc Estimated GFR POC Glucose 99 78 Random Glucose Calcium B-Natriuretic Peptide Urine Color Urine Appearance Urine pH Ur Specific [place] Urine Protein Urine Glucose (UA) Urine Ketones Urine Blood Urine Nitrite Ur Leukocyte Esterase COVID-19 ([facility]ANCA) Negative COVID-19 Clin Com See Note 02/19/21 02/19/21 02/19/21 22:46 23:19 23:38 WBC RBC Hgb Hct MCV MCH MCHC RDW Plt Count MPV Immature Gran % (Auto) Neut % (Auto) Lymph % (Auto) Kidder % (Auto) Eos % (Auto) Baso % (Auto) Lymph # (Auto) Kidder # (Auto) Eos # (Auto) Baso # (Auto) Abs Immat Gran (auto) Absolute Neuts (auto) Absolute Nucleated RBC Nucleated RBC % (auto) PT INR VBG pH VBG pCO2 VBG pO2 VBG HCO3 VBG O2 Saturation VBG Base Excess Sodium Potassium Chloride Carbon Dioxide Anion Gap BUN Creatinine Estim Creat Clear Calc Estimated GFR POC Glucose 84 92 100 Random Glucose Calcium B-Natriuretic Peptide Urine Color Urine Appearance Urine pH Ur Specific [place] Urine Protein Urine Glucose (UA) Urine Ketones Urine Blood Urine Nitrite Ur Leukocyte Esterase COVID-19 ([facility]ANCA) COVID-19 k[facility]et 02/20/21 02/20/21 02/20/21 01:13 01:27 01:34 WBC RBC Hgb Hct MCV MCH MCHC RDW Plt Count MPV Immature Gran % (Auto) Neut % (Auto) Lymph % (Auto) Kidder % (Auto) Eos % (Auto) Baso % (Auto) Lymph # (Auto) Kidder # (Auto) Eos # (Auto) Baso # (Auto) Abs Immat Gran (auto) Absolute Neuts (auto) Absolute Nucleated RBC Nucleated RBC % (auto) PT INR VBG pH VBG pCO2 VBG pO2 VBG HCO3 VBG O2 Saturation VBG Base Excess Sodium Potassium Chloride Carbon Dioxide Anion Gap BUN Creatinine Estim Creat Clear Calc Estimated GFR POC Glucose 130 H Random Glucose Calcium B-Natriuretic Peptide 388 H Urine Color YELLOW Urine Appearance CLEAR Urine pH 6.0 Ur Specific [place] <= 1.005 Urine Protein NEG Urine Glucose (UA) NEG Urine Ketones NEG Urine Blood NEG Urine Nitrite NEG Ur Leukocyte Esterase NEG COVID-19 ([facility]ANCA) COVID-19 kajeet 02/20/21 02/20/21 02/20/21 02:13 03:02 07:00 WBC RBC Hgb Hct MCV MCH MCHC RDW Plt Count MPV Immature Gran % (Auto) Neut % (Auto) Lymph % (Auto) Kidder % (Auto) Eos % (Auto) Baso % (Auto) Lymph # (Auto) Kidder # (Auto) Eos # (Auto) Baso # (Auto) Abs Immat Gran (auto) Absolute Neuts (auto) Absolute Nucleated RBC Nucleated RBC % (auto) PT INR VBG pH VBG pCO2 VBG pO2 VBG HCO3 VBG O2 Saturation VBG Base Excess Sodium Potassium Chloride Carbon Dioxide Anion Gap BUN Creatinine Estim Creat Clear Calc Estimated GFR POC Glucose 138 H 188 H Random Glucose Calcium B-Natriuretic Peptide 360 H Urine Color Urine Appearance Urine pH Ur Specific [place] Urine Protein Urine Glucose (UA) Urine Ketones Urine Blood Urine Nitrite Ur Leukocyte Esterase COVID-19 ([facility]ANCA) COVID-[employer] 02/20/21 07:46 WBC RBC Hgb Hct MCV MCH MCHC RDW Plt Count MPV Immature Gran % (Auto) Neut % (Auto) Lymph % (Auto) Kidder % (Auto) Eos % (Auto) Baso % (Auto) Lymph # (Auto) Kidder # (Auto) Eos # (Auto) Baso # (Auto) Abs Immat Gran (auto) Absolute Neuts (auto) Absolute Nucleated RBC Nucleated RBC % (auto) PT INR VBG pH VBG pCO2 VBG pO2 VBG HCO3 VBG O2 Saturation VBG Base Excess Sodium 140 Potassium 4.0 Chloride 105 Carbon Dioxide 23 Anion Gap 16 BUN 13 Creatinine 1.24 Estim Creat Clear Calc 36.9 Estimated GFR 42 POC Glucose Random Glucose 184 H D Calcium 9.1 B-Natriuretic Peptide Urine Color Urine Appearance Urine pH Ur Specific [place] Urine Protein Urine Glucose (UA) Urine Ketones Urine Blood Urine Nitrite Ur Leukocyte Esterase COVID-19 (FRANCA) COVID-19 [employer] Com no EKG performed Imaging Radiologist's impression: Impressions Chest X-Ray 02/19/21 21:24 IMPRESSION: Persistent but improving diffuse bilateral airspace disease. Assessment and Plan (1) Respiratory failure with hypoxia: Status: Acute Hypoxic respiratory failure secondary to residual from COVID pneumonia with insist to disease as well as congestive heart failure. Continue oxygen therapy. Continue supportive care for her pulmonary issues, question consult Pulmonary for the same. For CHF see below. Continue diuresis. (2) CHF exacerbation: Status: Acute Acute congestive heart failure with hypoxemia as well as evidence of fluid overload as with elevated BNP. This appears to be secondary to valvular heart disease, see below. Obtain an echocardiogram today. Continue IV diuresis. Strict intake and output chart needs to be pursued. Also she is noted to be significantly anemic. Anemia workup should be pursued as this would contribute to her heart failure exacerbation as well. Blood pressure is otherwise well optimized at this point time. Continue current therapy. (3) Aortic stenosis: Status: Acute Clinically appears to have significant aortic stenosis. Will obtain an echocardiogram today. This is most likely causing her new onset heart failure syndrome in setting of multiple other medical issues. Eventually will require further look at the valve and valve replacement procedure most likely transcatheter valve replacement. She was seeing a president + publisher at [facility]. I think she needs to medically improve 1st prior to contemplating to put her through valve replacement surgery. Depending on the findings of anemia, may consider adding low-dose aspirin to her regimen. Will follow up with the patient. Thank you for allowing me to partake in her care Procedures Date of Service Date of Service: 02/20/21
--- NOTE | 2021-02-20 10:25 | P.CDIC_ITS ---
CDI Concurrent Query Service Date: 02/20/21 Documentation Clarification: Please clarify if you are treating a proba ble/suspected/likely or confirmed: Specifics:: Acute diastolic and/or systolic CHF Acute on chronic diastolic and/or systolic CHF Please specify if known or undetermined Provider Response: Other Other Diagnosis: CHF exacerbation-etiology unclear, echo pending. PLEASE DO NOT DELETE/MODIFY EXISTING CONTENT Additional information is needed in order to code to the highest accuracy and appropriate Severity of Illness (SOI). Please clarify the information noted below in your progress notes and discharge summary. Risk Factors/Clinical Indicators/Treatments CHF Exacerbation, IV lasix. SOB, lower extremity edema/PND, hypoxia, orthpnea. BNP 388 H Low sodium diet and strict I&O's, daily weight. CDS: Sara Henry CCS, CDIS Contact Number: [phone] Please Review the information above and exercise your independent professional judgment in responding to the query. If you concur, pleas document in the PROGRESS NOTES and DISCHARGE SUMMARY. If you do not agree with the query, please document in the query above. THIS QUERY IS PART OF THE PERMANENT MEDICAL RECORD
--- NOTE | 2021-02-20 10:57 | PM.CNNEP ---
History of Present Illness Reason for Consult Consult date: 02/20/21 Reason for consult: ARLEY Chief Complaint Chief complaint: Hypoxic Respiratory failure History of Present Illness Narrative: 75 year old patient with H/O ARLEY needing HD during COVID PNA presented to hospital with accidental intake of increased insulin. She was also found to have edema, hypervolemia and ARLEY. She did not have any chest pain, nausea, vomiting or diarrhea. She was admitted for further management. Nephrology has been consulted to assist in her clinical care. 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 If so, by whom?: No Do you feel safe in your current relationship?: No Current Relationship Is there a partner from a previous relationship who is making you feel unsafe now?: No Are you made to feel afraid or neglected: No Advance Directives: No Advance Directives Information Provided: Yes Do you have thoughts of harming others: None Do you have a plan to hurt others: No Plan Recently lost weight without trying: No Nutrition Risks: No Nutritional Risk Patient : No : No Poor oral hygiene: No service: No Current occupational status: unemployed Gender identity: female Meds Allergies Allergy/AdvReac Type Severity Reaction Status Date / Time ibuprofen [From MOTRIN] Allergy Intermediate RASH Verified 01/18/21 02:29 oxycodone [From PERCOCET] Allergy Intermediate ITCHING Verified 01/18/21 02:29 acetaminophen [Percocet] Allergy Unknown unknown Verified 01/18/21 02:29 Motrin Allergy Unknown high blood Verified 01/18/21 02:29 pressure Active Medications: Current Medications Generic Name Dose Route Start Last Admin Trade Name Freq PRN Reason Stop Dose Admin Acetaminophen 650 mg 02/20/21 02:02 Acetaminophen 325 Mg Tablet PO Q6H PRN Pain, Mild (Pain Scale 1-3) Dextrose 25 gm 02/19/21 19:20 02/19/21 20:02 Dextrose 50 % 25 Gm/50 Ml Vial IVPUSH 25 gm ONCE PRN Administration POC <60 Docusate Sodium 100 mg 02/20/21 02:02 Docusate Sodium 100 Mg Capsule PO DAILY PRN Constipation Furosemide 40 mg 02/20/21 09:00 02/20/21 08:53 Furosemide 40 Mg/4 Ml Vial IVPUSH 40 mg DAILY HANANE Administration Protocol Heparin Sodium (Porcine) 5,000 unit 02/20/21 03:00 02/20/21 03:11 Heparin Sodium,Porcine 5,000 Unit/Ml Vial SUBCUT 5,000 unit Q12H HANANE Administration Ondansetron HCl 4 mg 02/20/21 02:02 Ondansetron Hcl 4 Mg/2 Ml Vial IVPUSH Q8H PRN Nausea and Vomiting Pharmacy Consult 1 each 02/20/21 00:29 Consult Rx Perform Med Rec MISCELLANE ONCE PRN Consult order Sodium Chloride 3 ml 02/20/21 08:00 02/20/21 08:54 0.9 % Sodium Chloride Flush 3 Ml Syringe IVFLUSH 3 ml QSHIFT HANANE Administration Home Medications Medication Instructions Recorded Confirmed Last Taken Type amlodipine 10 mg PO DAILY 01/18/21 02/20/21 Unknown History atorvastatin 40 mg PO BEDTIME 01/18/21 02/20/21 Unknown History carvedilol 25 mg PO BID 01/18/21 02/20/21 Unknown History cilostazol 100 mg PO BID 01/18/21 02/20/21 Unknown History fluconazole 150 mg PO DAILY 01/18/21 02/20/21 Unknown History hydralazine 50 mg PO TID 01/18/21 02/20/21 Unknown History linagliptin 5 mg PO DAILY 01/18/21 02/20/21 Unknown History montelukast 10 mg PO BEDTIME 01/18/21 02/20/21 Unknown History sucralfate 2 g PO DAILY 01/18/21 02/20/21 Unknown History gabapentin 300 mg PO BEDTIME 02/20/21 02/20/21 Unknown History insulin glargine [Lantus Solostar 47 unit SUBCUT DAILY 02/20/21 02/20/21 Unknown History U-100 Insulin] insulin lispro 1 sliding scale dose SUBCUT TIDAC 02/20/21 02/20/21 Unknown History Physical Exam Vital Signs: Last Vital Signs Temp 97.0 F 02/20/21 07:55 Pulse 99 02/20/21 07:55 Resp 18 02/20/21 07:55 BP 122/55 L 02/20/21 07:55 Pulse Ox 100 02/20/21 07:55 Body Mass Index 46.7 Const General: no acute distress Neck Neck: Yes supple Resp Auscultation: diminished lung sounds Cardio Rate: regular rate GI Palpation (GI): Soft to palpation Neuro General: moves all extremities Results Lab Results Result Diagrams: 02/19/21 19:42 02/20/21 07:46 Lab results: Chemistry 02/19/21 02/20/21 19:42 07:46 Sodium 136 140 Potassium 3.5 4.0 Carbon Dioxide 21 L 23 BUN 12 13 Creatinine 1.44 H 1.24 Calcium 9.3 D 9.1 Hematology 02/19/21 19:42 WBC 11.2 H Hgb 8.6 L Plt Count 550 H Urinalysis 02/20/21 01:13 Urine Color YELLOW Urine Appearance CLEAR Urine pH 6.0 Ur Specific [place] <= 1.005 Urine Protein NEG Urine Glucose (UA) NEG Urine Ketones NEG Urine Blood NEG Urine Nitrite NEG Ur Leukocyte Esterase NEG Assessment and Plan (1) CKD (chronic kidney disease) stage 3, GFR 30-59 ml/min: Problem details: ARLEY due to compromise in renal perfusion due to CRS Getting diuresis; Serum creatinine better; Has CKD at baseline No ACEI/ARB/NSAID's. Concur with rest of current management Status: Acute Procedures Date of Service Date of Service: 02/20/21
[2021-02-20 11:31] LABS: Hematocrit 27.2 % (37-47); Hemoglobin 8.7 g/dl (12.0-16.0)
[2021-02-20 12:10] LABS: Glucose, Whole Blood 273 mg/dL (60-115)
--- NOTE | 2021-02-20 13:27 | MHC.CM.PN ---
CM spoke with patient's dtr Vero at [phone] who reports patient lives at home with her and dtr lives on 2nd floor. Patient amb with a walker and needs assist with IADL's which dtr assists patient with. Patient recently discharged from [facility] on insulin. Patient mistakenly gave herself 50 unit of insulin and dtr called 911. Patient has [facility] and a nurse was supposed to see patient for insulin teaching but had not come to home yet. Dtr states she is HCP, copy requested. Discussed discharge plan, home with nursing services from [facility]. Dtr will provide transportation. CM will continue to follow patient for discharge needs.
[2021-02-20 15:22] LABS: Iron 21 mcg/dL (30-160); Percent Iron Saturation 9 % (15-50); Total Iron Binding Capacity 244 mcg/dL (228-428); Unsaturated Iron Binding 223 ug/dL
[2021-02-20 15:41] LABS: Ferritin 185 ng/mL (10-250)
[2021-02-20 16:00] LABS: Vitamin B12 156 pg/mL (200-900)
[2021-02-20 16:11] LABS: Glucose, Whole Blood 280 mg/dL (60-115)
--- NOTE | 2021-02-20 17:32 | P.EN_ITS ---
Event Note Date of Service: 02/21/21 Event Note: Patient came to the hospital because of excessive insulin use and hypoglycemia, found to have short of breath also-so admitted for CHF exacerbation, had underlying history of aortic stenosis Patient was seen with the help of seismic interpreter. Patient seems to be feeling better than before this morning Fingersticks are improving in 180 -200range now ARLEY is also improving Patient has anemia-anemia workup and stool for occult blood added Physical exam: Cvs: rrr, [id number] , no murmur res: clear to auscultation ,no rhonchii or wheezing abd: no rebound or guarding ,nt, bs present. ext pulses present , no cyanosis , as leg edema neuro: axo3 , nonfocal. Assessment and plan coordinated in H&P note of hospitalist In addition: 1. CHF exacerbation etiology unclear echo pending Patient was started on IV Lasix Continue monitor I&O Daily weights 2. Diabetes/hypoglycemia: Continue to monitor fingersticks Will add coverage above 200 mg/dL , avoid coverage below 200. 3. arley:: seems to be improving 4. anemia: Workup chilel shows iron deficiency/B12 deficiency B12 supplement added Monitor H&H Occult blood.
[2021-02-20] MEDS: polyethylene glycoL 3350 17 GM POWD.PACK PO (18:08)
[2021-02-20] MEDS: Sucralfate 1 GM TABLET 2 GM PO (18:09)
[2021-02-20] MEDS: Cyanocobalamin (Vitamin B-12) 1,000 MCG/ML VIAL 1000 MCG IM (18:16)
[2021-02-20 20:56] LABS: Glucose, Whole Blood 219 mg/dL (60-115)
[2021-02-20] MEDS: Montelukast Sodium 10 MG TABLET PO (21:05)
[2021-02-20] MEDS: Docusate Sodium 100 MG CAPSULE PO (21:05)
[2021-02-20] MEDS: cilostazoL 100 MG TABLET PO (21:06)
[2021-02-20] MEDS: Atorvastatin Calcium 40 MG TABLET PO (21:06)
[2021-02-20] MEDS: Gabapentin 300 MG CAPSULE PO (21:06)
[2021-02-21] VITALS (11 sets, daily range): BP systolic 122–169; BP diastolic 57–78; PULSE 68–101; RESP 17–20; TEMP 36.1–36.8; O2SAT 96–100; BMI 46.0
[2021-02-21] MEDS: 0.9 % Sodium Chloride Flush 3 ML SYRINGE IVFLUSH ×3 (01:30→15:06)
[2021-02-21] MEDS: Heparin Sodium,Porcine 5,000 UNIT/ML VIAL 5000 UNIT SUBCUT ×2 (04:00→15:06)
[2021-02-21 06:18] LABS: Hematocrit 24.6 % (37-47); Hemoglobin 7.8 g/dl (12.0-16.0)
[2021-02-21 06:43] LABS: Anion Gap 12 (12-20); Blood Urea Nitrogen 14 mg/dL (9-16); Calcium 8.8 mg/dL (8.4-10.2); Carbon Dioxide 29 mmol/L (22-29); Chloride 103 mmol/L (96-108); Creatinine Clr Calc Pharmacy 40.5; Estimated Glomerular Filt Rate 47; Glucose Random 148 mg/dL (60-115); Potassium 3.7 mmol/L (3.3-5.1); Sodium 140 mmol/L (135-145)
[2021-02-21 07:24] LABS: Glucose, Whole Blood 165 mg/dL (60-115)
[2021-02-21] MEDS: cilostazoL 100 MG TABLET PO ×2 (09:30→21:12)
[2021-02-21] MEDS: Furosemide 40 MG/4 ML VIAL IVPUSH (09:30)
[2021-02-21] MEDS: Sucralfate 1 GM TABLET 2 GM PO (09:30)
--- NOTE | 2021-02-21 10:28 | PM.PNCARD ---
Subjective Subjective Date of Service: 02/21/21 Principal diagnosis: CHF, Interval history: Patient says she is feeling better. Echocardiogram confirms severe aortic stenosis. She remains significantly anemic and suspected to have both B12 and iron deficiency. Current getting a workup for the same. She is overall diuresed -760 mL. Denies palpitations. Denies lightheadedness denies chest pain. Review of Systems Constitutional: Reports no additional constitutional complaints and Reports fatigue Cardiovascular: Reports no additional cardiovascular complaints and Reports dyspnea Respiratory: Reports dyspnea Gastrointestinal: Reports no additional gastrointestinal complaints Genitourinary: Reports no additional female genitourinary complaints Reports system reviewed and no additional complaints, except as documented Psychiatric: Reports no additional psychiatric complaints Endocrine: Reports no additional endocrine complaints and Reports fatigue Physical Exam Vital Signs: Last Vital Signs Temp 97.1 F 02/21/21 07:45 Pulse 96 02/21/21 07:45 Resp 18 02/21/21 07:45 BP 142/65 H 02/21/21 07:45 Pulse Ox 100 02/21/21 07:45 Body Mass Index 46.0 Const General: cooperative, comfortable, alert and awake Nutritional Appearance: obese Orientation/consciousness: patient oriented x3 Neck Neck: Yes trachea midline, Yes supple and Yes JVD Resp Effort & Inspection: normal respiratory effort Auscultation: no rales and diminished lung sounds Cardio Jugular venous distension: JVD Palpation: normal PMI Rate: regular rate Rhythm: regular rhythm Heart sounds: S1 normal heart sound present and Murmur heart sound present systolic late, decrescendo and crescendo GI Auscultation: normal bowel sounds Skin General skin exam: no rashes or lesions noted Neuro General: patient oriented x3 Extrem General: Yes no clubbing, cyanosis or edema Psych Appearance: grossly normal Results Labs and Meds Result diagrams: 02/21/21 05:10 02/21/21 05:10 Lab results: Laboratory Results - last 24 hr 02/20/21 02/20/21 02/20/21 07:46 07:46 08:34 Hgb 8.7 L Hct 27.2 L Sodium Potassium Chloride Carbon Dioxide Anion Gap BUN Creatinine Estim Creat Clear Calc Estimated GFR POC Glucose Random Glucose Calcium Iron 21 L TIBC 244 % Saturation 9 L Unsat Iron Binding 223 Ferritin 185 Vitamin B12 156 L Folate 5.0 Blood Type Antibody Screen Crossmatch 02/20/21 02/20/21 02/20/21 12:00 16:02 20:46 Hgb Hct Sodium Potassium Chloride Carbon Dioxide Anion Gap BUN Creatinine Estim Creat Clear Calc Estimated GFR POC Glucose 273 H 280 H 219 H Random Glucose Calcium Iron TIBC % Saturation Unsat Iron Binding Ferritin Vitamin B12 Folate Blood Type Antibody Screen Crossmatch 02/21/21 02/21/21 02/21/21 05:10 05:10 07:21 Hgb 7.8 L Hct 24.6 L Sodium 140 Potassium 3.7 Chloride 103 Carbon Dioxide 29 Anion Gap 12 BUN 14 Creatinine 1.12 Estim Creat Clear Calc 40.5 Estimated GFR 47 POC Glucose 165 H Random Glucose 148 H Calcium 8.8 Iron TIBC % Saturation Unsat Iron Binding Ferritin Vitamin B12 Folate Blood Type Antibody Screen Crossmatch 02/21/21 08:51 Hgb Hct Sodium Potassium Chloride Carbon Dioxide Anion Gap BUN Creatinine Estim Creat Clear Calc Estimated GFR POC Glucose Random Glucose Calcium Iron TIBC % Saturation Unsat Iron Binding Ferritin Vitamin B12 Folate Blood Type B Positive Antibody Screen NEGATIVE Crossmatch See Detail Progress Note: A&P Assessment and plan (1) CHF exacerbation: Status: Acute Assessment and Plan: Patient with CHF exacerbation precipitated because of anemia and underlying pulmonary issues in the setting of severe aortic stenosis. Clinically appears to be better volume status. Will continue Lasix 40 mg IV push. Strict intake and output chart needs to be pursued. Continue check BNP and trend BMP and BNP. The findings were discussed in details with patient as well as patient's daughter and with help of paraprofessional interpreter. They understand and agree. Continue aggressive blood pressure management as well. Blood pressure is borderline elevated. Will continue to monitor the same. Avoid salt loading. Correct anemia with blood transfusion follow-up with Lasix 20 mg push. Maintain hematocrit above 30. Anemia workup and follow-up by Hematology needs to be pursued. Pulmonary consult should be also be considered. (2) Aortic stenosis: Status: Acute Assessment and Plan: Aortic stenosis which is severe. Given new onset heart failure although precipitated by underlying medical issues will need to be pursued with valve replacement, can be done as an outpatient evaluation. Optimize heart failure as above. Patient says she has a practice support specialist at [facility]. Will follow up as outpatient for the same, consideration for transcatheter aortic valve replacement once her medical issues have improved and worked up. Will follow with the patient. Thank you for allowing us to partake in the care Fall Risk Details Current Medications: Current Medications Generic Name Dose Route Start Last Admin Trade Name Freq PRN Reason Stop Dose Admin Acetaminophen 650 mg 02/20/21 02:02 Acetaminophen 325 Mg Tablet PO Q6H PRN Pain, Mild (Pain Scale 1-3) Atorvastatin Calcium 40 mg 02/20/21 21:00 02/20/21 21:06 Atorvastatin Calcium 40 Mg Tablet PO 40 mg BEDTIME HANANE Administration Carvedilol 25 mg 02/21/21 09:45 Carvedilol 25 Mg Tablet PO BID HANANE Protocol Cilostazol 100 mg 02/20/21 21:00 02/21/21 09:30 Cilostazol 100 Mg Tablet PO 100 mg BID HANANE Administration Cyanocobalamin 1,000 mcg 02/20/21 18:00 02/20/21 18:16 Cyanocobalamin (Vitamin B-12) 1,000 Mcg/Ml Vial IM 03/13/21 18:01 1,000 mcg Q7D HANANE Administration Dextrose 25 gm 02/19/21 19:20 02/19/21 20:02 Dextrose 50 % 25 Gm/50 Ml Vial IVPUSH 25 gm ONCE PRN Administration POC <60 Docusate Sodium 100 mg 02/20/21 02:02 Docusate Sodium 100 Mg Capsule PO DAILY PRN Constipation Docusate Sodium 100 mg 02/20/21 21:00 02/20/21 21:05 Docusate Sodium 100 Mg Capsule PO 100 mg BEDTIME HANANE Administration Furosemide 40 mg 02/20/21 09:00 02/21/21 09:30 Furosemide 40 Mg/4 Ml Vial IVPUSH 40 mg DAILY HANANE Administration Protocol Gabapentin 300 mg 02/20/21 21:00 02/20/21 21:06 Gabapentin 300 Mg Capsule PO 300 mg BEDTIME HANANE Administration Heparin Sodium (Porcine) 5,000 unit 02/20/21 03:00 02/21/21 04:00 Heparin Sodium,Porcine 5,000 Unit/Ml Vial SUBCUT 5,000 unit Q12H HANANE Administration Montelukast Sodium 10 mg 02/20/21 21:00 02/20/21 21:05 Montelukast Sodium 10 Mg Tablet PO 10 mg BEDTIME HANANE Administration Ondansetron HCl 4 mg 02/20/21 02:02 Ondansetron Hcl 4 Mg/2 Ml Vial IVPUSH Q8H PRN Nausea and Vomiting Pharmacy Consult 1 each 02/20/21 00:29 Consult Rx Perform Med Rec MISCELLANE ONCE PRN Consult order Polyethylene Glycol 17 gm 02/20/21 17:30 02/21/21 09:30 Polyethylene Glycol 3350 17 Gm Powd.Pack PO Not Given DAILY HANANE Sodium Chloride 3 ml 02/20/21 08:00 02/21/21 07:57 0.9 % Sodium Chloride Flush 3 Ml Syringe IVFLUSH 3 ml QSHIFT HANANE Administration Sucralfate 2 gm 02/20/21 16:00 02/21/21 09:30 Sucralfate 1 Gm Tablet PO 2 gm DAILY HANANE Administration Time Spent With Patient Time: Total time spent is greater than 50% in coordination of care (as documented) at patient's floor/unit and/or counseling patient: Time with patient: 25 - 35 minutes Procedures Date of Service Date of Service: 02/21/21
[2021-02-21] MEDS: Furosemide 20 MG/2 ML VIAL IVPUSH (10:55)
[2021-02-21] MEDS: carvediloL 25 MG TABLET PO ×2 (11:07→21:12)
[2021-02-21 12:42] LABS: Glucose, Whole Blood 280 mg/dL (60-115)
--- NOTE | 2021-02-21 12:56 | P.CNGI_ITS ---
History of Present Illness Data of Consult Service Date: 02/21/21 Requesting physician: Huma Shoemaker Primary Care Provider: Marycarmen Quijano MD HPI Reason for consult: anemia 75 yo F with hx of recent covid infection in January, CKD, DM, HDL, GERD, HTN, who I am seeing for assessment for anemia She was admitted due to accidental OD of insulin. She had no dizziness, headache or change in vision, no neurological deficits. denies n/v, no abd pain, and no diarrhea or constipation. No urinary symptoms. No fever of chills. does endorse increased gas sx also pos for shortness of breath, cough, lower extremity edema, Orthopnea and pnd she deneis rectal bleeding, no melena, POS for nose bleeds, no vaginal bleeding or skin bruising In Ed she was noted to be dropping her O2 sats AND WENT low as 87% LABS: WBC of 11.2, Hgb of 8.6 which is higher than her baseline (started gradual downtrend since 01/2021 with microcytosis), plts of 550, Cr of 1.44 with baseline around 1.0, glucose on arrival 62 , has a BNP of 36, UA negative. B12 low, iron sat low, ferritin ok CXR shows persistent but improving diffuse bilateral airspace disease. no gross consolidation and no pleural effuion Admitted primarily for CHF exacerbation LAST EGD/colonoscopy 2016 with [facility] - gastritis hiatal henria diverticulosis otherwise nml Review of Systems Review of Systems: Yes all other systems are reviewed and are negative Constitutional: Constitutional: Reports no additional constitutional complaints, Reports fatigue and Denies fever(s) Cardiovascular: Cardiovascular: Reports no additional cardiovascular complaints, Denies chest pain, Reports leg edema, Denies palpitations, Reports dyspnea, Reports dyspnea on exertion and Reports orthopnea Respiratory: Respiratory: Reports cough, Reports excessive phlegm production, Reports dyspnea and Reports dyspnea on exertion Gastrointestinal: Gastrointestinal: Reports no additional gastrointestinal complaints Neurologic: Reports system reviewed and no additional complaints, except as documented Psychiatric: Psychiatric: Reports no additional psychiatric complaints Endocrine: Endocrine: Reports no additional endocrine complaints, Reports fatigue and Denies palpitations Hematologic/Lymphatic: Hematologic/Lymphatic: Reports no additional hematologic/lymphatic complaints PMFSH Past Medical History Medical History (Updated 02/21/21 @ 13:05 by Mariaelena Morgan MD) Aortic stenosis Asthma Chronic kidney disease CKD (chronic kidney disease) stage 3, GFR 30-59 ml/min Diabetes mellitus Diabetic nephropathy associated with type 2 diabetes mellitus Diabetic polyneuropathy associated with type 2 diabetes mellitus Dyslipidemia GERD (gastroesophageal reflux disease) Hypertension Infected cyst of skin roasterman (current) use of insulin Morbid obesity Thalamic pain syndrome Family History Family History Sister History of renal pelvis cancer Surgical History Surgical History History of breast lump/mass excision History of cholecystectomy History of tubal ligation Social History Social History Household Members: Family Housing: House Alcohol intake: unknown Smoking Status: Never smoker Use of substances other than those prescribed or required for medical reasons: No Currently Displaying Signs/Symptoms of Drug Intoxication Withdrawal: No Have you been hit, kicked, punched, or otherwise hurt by someone within the past year? If so, by whom?: No Do you feel safe in your current relationship?: No Current Relationship Is there a partner from a previous relationship who is making you feel unsafe now?: No Are you made to feel afraid or neglected: No Advance Directives: No Advance Directives Information Provided: Yes Do you have thoughts of harming others: None Do you have a plan to hurt others: No Plan Recently lost weight without trying: No Nutrition Risks: No Nutritional Risk Patient : No : No Poor oral hygiene: No service: No Current occupational status: unemployed Gender identity: female Meds Allergies Allergy/AdvReac Type Severity Reaction Status Date / Time ibuprofen [From MOTRIN] Allergy Intermediate RASH Verified 01/18/21 02:29 oxycodone [From PERCOCET] Allergy Intermediate ITCHING Verified 01/18/21 02:29 acetaminophen [Percocet] Allergy Unknown unknown Verified 01/18/21 02:29 Motrin Allergy Unknown high blood Verified 01/18/21 02:29 pressure Active Medications: Current Medications Generic Name Dose Route Start Last Admin Trade Name Freq PRN Reason Stop Dose Admin Acetaminophen 650 mg 02/20/21 02:02 Acetaminophen 325 Mg Tablet PO Q6H PRN Pain, Mild (Pain Scale 1-3) Atorvastatin Calcium 40 mg 02/20/21 21:00 02/20/21 21:06 Atorvastatin Calcium 40 Mg Tablet PO 40 mg BEDTIME HANANE Administration Carvedilol 25 mg 02/21/21 09:45 02/21/21 11:07 Carvedilol 25 Mg Tablet PO 25 mg BID HANANE Administration Protocol Cilostazol 100 mg 02/20/21 21:00 02/21/21 09:30 Cilostazol 100 Mg Tablet PO 100 mg BID HANANE Administration Cyanocobalamin 1,000 mcg 02/20/21 18:00 02/20/21 18:16 Cyanocobalamin (Vitamin B-12) 1,000 Mcg/Ml Vial IM 03/13/21 18:01 1,000 mcg Q7D HANANE Administration Dextrose 25 gm 02/19/21 19:20 02/19/21 20:02 Dextrose 50 % 25 Gm/50 Ml Vial IVPUSH 25 gm ONCE PRN Administration POC <60 Docusate Sodium 100 mg 02/20/21 02:02 Docusate Sodium 100 Mg Capsule PO DAILY PRN Constipation Docusate Sodium 100 mg 02/20/21 21:00 02/20/21 21:05 Docusate Sodium 100 Mg Capsule PO 100 mg BEDTIME HANANE Administration Furosemide 40 mg 02/20/21 09:00 02/21/21 09:30 Furosemide 40 Mg/4 Ml Vial IVPUSH 40 mg DAILY HANANE Administration Protocol Gabapentin 300 mg 02/20/21 21:00 02/20/21 21:06 Gabapentin 300 Mg Capsule PO 300 mg BEDTIME HANANE Administration Heparin Sodium (Porcine) 5,000 unit 02/20/21 03:00 02/21/21 04:00 Heparin Sodium,Porcine 5,000 Unit/Ml Vial SUBCUT 5,000 unit Q12H HANANE Administration Insulin Human Lispro 0 unit 02/21/21 16:30 Insulin Lispro 100 Unit/Ml 3 Ml Vial SUBCUT QIDACHS [facility] Protocol Montelukast Sodium 10 mg 02/20/21 21:00 02/20/21 21:05 Montelukast Sodium 10 Mg Tablet PO 10 mg BEDTIME HANANE Administration Ondansetron HCl 4 mg 02/20/21 02:02 Ondansetron Hcl 4 Mg/2 Ml Vial IVPUSH Q8H PRN Nausea and Vomiting Pharmacy Consult 1 each 02/20/21 00:29 Consult Rx Perform Med Rec MISCELLANE ONCE PRN Consult order Polyethylene Glycol 17 gm 02/20/21 17:30 02/21/21 09:30 Polyethylene Glycol 3350 17 Gm Powd.Pack PO Not Given DAILY [facility] Sodium Chloride 3 ml 02/20/21 08:00 02/21/21 07:57 0.9 % Sodium Chloride Flush 3 Ml Syringe IVFLUSH 3 ml QSHIFT HANANE Administration Sucralfate 2 gm 02/20/21 16:00 02/21/21 09:30 Sucralfate 1 Gm Tablet PO 2 gm DAILY HANANE Administration Home Medications Medication Instructions Recorded Confirmed Last Taken Type amlodipine 10 mg PO DAILY 01/18/21 02/20/21 Unknown History atorvastatin 40 mg PO BEDTIME 01/18/21 02/20/21 Unknown History carvedilol 25 mg PO BID 01/18/21 02/20/21 Unknown History cilostazol 100 mg PO BID 01/18/21 02/20/21 Unknown History fluconazole 150 mg PO DAILY 01/18/21 02/20/21 Unknown History hydralazine 50 mg PO TID 01/18/21 02/20/21 Unknown History linagliptin 5 mg PO DAILY 01/18/21 02/20/21 Unknown History montelukast 10 mg PO BEDTIME 01/18/21 02/20/21 Unknown History sucralfate 2 g PO DAILY 01/18/21 02/20/21 Unknown History gabapentin 300 mg PO BEDTIME 02/20/21 02/20/21 Unknown History insulin glargine [Lantus Solostar 47 unit SUBCUT DAILY 02/20/21 02/20/21 Unknown History U-100 Insulin] insulin lispro 1 sliding scale dose SUBCUT TIDAC 02/20/21 02/20/21 Unknown History Physical Exam Vital Signs: Vital Signs: Last Vital Signs Temp 98.1 F 02/21/21 12:25 Pulse 68 02/21/21 12:25 Resp 17 02/21/21 12:25 BP 140/57 H 02/21/21 12:25 Pulse Ox 97 02/21/21 11:56 Body Mass Index 46.0 Const: General: cooperative, healthy appearing, comfortable, no acute distress, well developed, alert, awake and acute distress moderate and respira tory Nutritional Appearance: obese Orientation/consciousness: patient oriented x3 Limitations: no limitations HENMT: Head: Yes normal to inspection, Yes normocephalic and Yes atraumatic Eyes: General: appearance normal, both eyes and all related structures EOM: EOMs intact bilaterally Neck: Neck: Yes normal visual inspection, Yes full ROM, Yes trachea midline, Yes supple and Yes JVD Resp: Effort & Inspection: normal respiratory effort and able to speak in complete sentences Auscultation: no rales and diminished lung sounds Cardio: Jugular venous distension: JVD Palpation: normal PMI Rate: regular rate and tachycardic Rhythm: regular rhythm Heart sounds: S1 normal heart sound present and Murmur heart sound present (radiates into the neck) systolic late GI: Inspection: Yes normal to inspection Palpation (GI): Soft to palpation Auscultation: normal bowel sounds Skin: General skin exam: no rashes or lesions noted Neuro: General: patient oriented x3, moves all extremities and no focal motor deficits Cognition (Neuro): normal cognition Extrem: Other: 2+ lower extremity edema General: Yes normal to inspection, Yes no clubbing, cyanosis or edema, No clubbing, No cyanosis and Yes edema Psych: Appearance: grossly normal Results Labs CBC & Chem 7: 02/21/21 05:10 02/21/21 05:10 Labs: Short CBC 02/20/21 02/21/21 Range/Units 07:46 05:10 Hgb 7.8 L (12.0-16.0) g/dl Hct 24.6 L (37-47) % % Saturation 9 L (15-50) % Ferritin 185 (10-250) ng/mL BMP 02/21/21 05:10 Sodium 140 Potassium 3.7 Chloride 103 Carbon Dioxide 29 BUN 14 Creatinine 1.12 Calcium 8.8 Assessment and Plan (1) CHF exacerbation: Status: Acute (2) Aortic stenosis: Status: Acute (3) CKD (chronic kidney disease) stage 3, GFR 30-59 ml/min: Status: Acute (4) Anemia: Status: Acute 1/ NEW onset gradually worsening anemia since 01/2021, with low b12 and iron sat, concern is for malabsorption vs underlying neoplasia or mass, AVM PLAN!: 1/ check intrinsic and parietal cell Ab 2/ repeat EGD and colonoscopy when cardiac resp status improved with as early o/p or in patient depending on clinical course Procedures Date of Service Date of Service: 02/21/21
--- NOTE | 2021-02-21 12:59 | PM.PNNEP ---
Subjective Subjective Date of Service: 02/21/21 Principal diagnosis: CHF, Interval history: Events noted. All recent data reviewed Physical Exam Vital Signs: Vital Signs: Last Vital Signs Temp 98.1 F 02/21/21 12:25 Pulse 68 02/21/21 12:25 Resp 17 02/21/21 12:25 BP 140/57 H 02/21/21 12:25 Pulse Ox 97 02/21/21 11:56 Body Mass Index 46.0 Const: General: no acute distress Orientation/consciousness: patient oriented x3 Eyes: EOM: EOMs intact bilaterally Neck: Neck: Yes supple Resp: Auscultation: diminished lung sounds Cardio: Heart sounds: Murmur heart sound present GI: Palpation (GI): Soft to palpation Neuro: General: patient oriented x3 and moves all extremities Objective Data Labs CBC & Chem 7: 02/21/21 05:10 02/21/21 05:10 Labs: Laboratory Results - last 24 hr 02/20/21 02/20/21 02/20/21 07:46 08:34 16:02 Hgb Hct Sodium Potassium Chloride Carbon Dioxide Anion Gap BUN Creatinine Estim Creat Clear Calc Estimated GFR POC Glucose 280 H Random Glucose Calcium Iron 21 L TIBC 244 % Saturation 9 L Unsat Iron Binding 223 Ferritin 185 Vitamin B12 156 L Folate 5.0 Blood Type Antibody Screen Crossmatch 02/20/21 02/21/21 02/21/21 20:46 05:10 05:10 Hgb 7.8 L Hct 24.6 L Sodium 140 Potassium 3.7 Chloride 103 Carbon Dioxide 29 Anion Gap 12 BUN 14 Creatinine 1.12 Estim Creat Clear Calc 40.5 Estimated GFR 47 POC Glucose 219 H Random Glucose 148 H Calcium 8.8 Iron TIBC % Saturation Unsat Iron Binding Ferritin Vitamin B12 Folate Blood Type Antibody Screen Crossmatch 02/21/21 02/21/21 02/21/21 07:21 08:51 11:09 Hgb Hct Sodium Potassium Chloride Carbon Dioxide Anion Gap BUN Creatinine Estim Creat Clear Calc Estimated GFR POC Glucose 165 H 280 H Random Glucose Calcium Iron TIBC % Saturation Unsat Iron Binding Ferritin Vitamin B12 Folate Blood Type B Positive Antibody Screen NEGATIVE Crossmatch See Detail Assessment & Plan Assessment and plan (1) CKD (chronic kidney disease) stage 3, GFR 30-59 ml/min: Status: Acute Assessment and Plan: ARLEY due to compromise in renal perfusion due to CRS- improved Getting diuresis; Serum creatinine improving; Has CKD at baseline No ACEI/ARB/NSAID's. Concur with rest of current management Time Spent With Patient Time: Total time spent is greater than 50% in coordination of care (as documented) at patient's floor/unit and/or counseling patient: Procedures Date of Service Date of Service: 02/21/21
[2021-02-21 13:08] LABS: Estimated Average Glucose 174 mg/dL; Hemoglobin A1c % 7.7 %
[2021-02-21 16:03] LABS: Glucose, Whole Blood 257 mg/dL (60-115)
[2021-02-21 16:32] LABS: Glucose, Whole Blood 243 mg/dL (60-115)
--- NOTE | 2021-02-21 16:49 | PC.NURSE ---
pt has leakage of blood from hand IV, it was discontinued and new IV inserted in wrist. Pt tolerated well. She was given one unit PRBC and tolerated well with no SX of reaction. She has been repositioning herself in her chair and has rung walsh appripriately for bedside commode.
[2021-02-21 16:51] LABS: VBG pO2 108 mmHg
[2021-02-21] MEDS: Insulin Lispro 100 UNIT/ML 3 ML VIAL SUBCUT (16:55)
--- NOTE | 2021-02-21 18:28 | HO.PM.IMPN ---
Subjective Subjective Date of Service: 02/22/21 Interval History: chf execerbation, anemia Review of Systems shortness of breath chilel seems improving , denies any chest pain or abdominal pain or fever or chills or nausea or vomiting. Physical Exam Vital Signs: Vital Signs: Last Vital Signs Temp 97.3 F 02/21/21 16:00 Pulse 88 02/21/21 16:00 Resp 20 02/21/21 16:00 BP 123/59 L 02/21/21 16:00 Pulse Ox 96 02/21/21 16:00 Body Mass Index 46.0 Physical exam: Constitutional: Not in acute distress Cvs: rrr, [id number] , no murmur res: clear to auscultation ,no rhonchii or wheezing abd: no rebound or guarding ,nt, bs present. ext pulses present , no cyanosis , swelling seems improving neuro: axo3 , nonfocal. Objective Data Current Medications Generic Name Dose Route Start Last Admin Trade Name Freq PRN Reason Stop Dose Admin Acetaminophen 650 mg 02/20/21 02:02 Acetaminophen 325 Mg Tablet PO Q6H PRN Pain, Mild (Pain Scale 1-3) Atorvastatin Calcium 40 mg 02/20/21 21:00 02/20/21 21:06 Atorvastatin Calcium 40 Mg Tablet PO 40 mg BEDTIME HANANE Administration Carvedilol 25 mg 02/21/21 09:45 02/21/21 11:07 Carvedilol 25 Mg Tablet PO 25 mg BID HANANE Administration Protocol Cilostazol 100 mg 02/20/21 21:00 02/21/21 09:30 Cilostazol 100 Mg Tablet PO 100 mg BID HANANE Administration Cyanocobalamin 1,000 mcg 02/20/21 18:00 02/20/21 18:16 Cyanocobalamin (Vitamin B-12) 1,000 Mcg/Ml Vial IM 03/13/21 18:01 1,000 mcg Q7D HANANE Administration Dextrose 25 gm 02/19/21 19:20 02/19/21 20:02 Dextrose 50 % 25 Gm/50 Ml Vial IVPUSH 25 gm ONCE PRN Administration POC <60 Docusate Sodium 100 mg 02/20/21 02:02 Docusate Sodium 100 Mg Capsule PO DAILY PRN Constipation Docusate Sodium 100 mg 02/20/21 21:00 02/20/21 21:05 Docusate Sodium 100 Mg Capsule PO 100 mg BEDTIME HANANE Administration Furosemide 40 mg 02/20/21 09:00 02/21/21 09:30 Furosemide 40 Mg/4 Ml Vial IVPUSH 40 mg DAILY HANANE Administration Protocol Gabapentin 300 mg 02/20/21 21:00 02/20/21 21:06 Gabapentin 300 Mg Capsule PO 300 mg BEDTIME HANANE Administration Heparin Sodium (Porcine) 5,000 unit 02/20/21 03:00 02/21/21 15:06 Heparin Sodium,Porcine 5,000 Unit/Ml Vial SUBCUT 5,000 unit Q12H HANANE Administration Insulin Human Lispro 0 unit 02/21/21 16:30 02/21/21 16:55 Insulin Lispro 100 Unit/Ml 3 Ml Vial SUBCUT 6 unit QIDACHS HANANE Administration Protocol Montelukast Sodium 10 mg 02/20/21 21:00 02/20/21 21:05 Montelukast Sodium 10 Mg Tablet PO 10 mg BEDTIME HANANE Administration Ondansetron HCl 4 mg 02/20/21 02:02 Ondansetron Hcl 4 Mg/2 Ml Vial IVPUSH Q8H PRN Nausea and Vomiting Pharmacy Consult 1 each 02/20/21 00:29 Consult Rx Perform Med Rec MISCELLANE ONCE PRN Consult order Polyethylene Glycol 17 gm 02/20/21 17:30 02/21/21 09:30 Polyethylene Glycol 3350 17 Gm Powd.Pack PO Not Given DAILY HANANE Sodium Chloride 3 ml 02/20/21 08:00 02/21/21 15:06 0.9 % Sodium Chloride Flush 3 Ml Syringe IVFLUSH 3 ml QSHIFT HANANE Administration Sucralfate 2 gm 02/20/21 16:00 02/21/21 09:30 Sucralfate 1 Gm Tablet PO 2 gm DAILY HANANE Administration Labs CBC & Chem 7: 02/22/21 04:25 02/22/21 04:25 Assessment and Plan (1) CHF exacerbation: Status: Acute Assessment and Plan: 1. CHF exacerbation etiology unclear echo pending Patient was started on IV Lasix Continue monitor I&O Daily weights Repeat BNP 2. Diabetes/hypoglycemia: Continue to monitor fingersticks Will add coverage above 200 mg/dL , avoid coverage below 200. 3. bill:: seems to be improving 4. anemia: Workup chilel shows iron deficiency/B12 deficiency B12 supplement added Monitor H&H-7.8 Transfused 1 unit PRBC, Lasix after 1 unit. Occult blood-
[2021-02-21 18:57] LABS: Alanine Aminotransferase 16 U/L (0-31); Albumin Level 2.9 g/dL (3.5-5.0); Alkaline Phosphatase 120 U/L (39-117); Aspartate Amino Transferase 14 U/L (5-31); Bilirubin Direct 0.3 mg/dL (0.0-0.5); Bilirubin Total 0.8 mg/dL (0.0-1.0); Total Protein 5.8 g/dL (6.5-8.0)
[2021-02-21 21:03] LABS: Glucose, Whole Blood 183 mg/dL (60-115)
[2021-02-21] MEDS: Gabapentin 300 MG CAPSULE PO (21:11)
[2021-02-21] MEDS: Atorvastatin Calcium 40 MG TABLET PO (21:11)
[2021-02-21] MEDS: Docusate Sodium 100 MG CAPSULE PO (21:11)
[2021-02-21] MEDS: Montelukast Sodium 10 MG TABLET PO (21:12)
[2021-02-21 23:49] LABS: Glucose, Whole Blood 193 mg/dL (60-115)
[2021-02-22] VITALS (8 sets, daily range): BP systolic 125–138; BP diastolic 58–68; PULSE 83–91; RESP 18–20; TEMP 36.4–37; O2SAT 96–100
[2021-02-22] MEDS: 0.9 % Sodium Chloride Flush 3 ML SYRINGE IVFLUSH ×3 (00:08→23:48)
[2021-02-22] MEDS: Heparin Sodium,Porcine 5,000 UNIT/ML VIAL 5000 UNIT SUBCUT ×2 (02:52→15:47)
[2021-02-22 05:20] LABS: Hematocrit 29.3 % (37-47); Hemoglobin 9.6 g/dl (12.0-16.0)
[2021-02-22 05:46] LABS: Anion Gap 13 (12-20); Blood Urea Nitrogen 14 mg/dL (9-16); Calcium 8.9 mg/dL (8.4-10.2); Carbon Dioxide 30 mmol/L (22-29); Chloride 100 mmol/L (96-108); Creatinine Clr Calc Pharmacy 40.5; Estimated Glomerular Filt Rate 47; Glucose Random 208 mg/dL (60-115); Potassium 3.6 mmol/L (3.3-5.1); Sodium 139 mmol/L (135-145)
[2021-02-22 07:37] LABS: Glucose, Whole Blood 198 mg/dL (60-115)
--- NOTE | 2021-02-22 07:55 | PC.NURSE ---
weight not obtained by prior shift, pt up to chair. Will use standing scale at later time.
[2021-02-22] MEDS: Insulin Lispro 100 UNIT/ML 3 ML VIAL SUBCUT ×4 (08:06→20:33)
[2021-02-22] MEDS: Sucralfate 1 GM TABLET 2 GM PO (08:07)
[2021-02-22] MEDS: cilostazoL 100 MG TABLET PO ×2 (08:07→20:32)
[2021-02-22] MEDS: carvediloL 25 MG TABLET PO ×2 (08:07→20:33)
[2021-02-22] MEDS: Furosemide 40 MG/4 ML VIAL IVPUSH (08:07)
--- NOTE | 2021-02-22 08:33 | HO.PM.IMPN ---
Subjective Subjective Date of Service: 02/22/21 Interval History: anemia , chf Review of Systems shortness of breath seems to be improving, denies any chest pain or abdominal pain or cough or phlegm. Physical Exam Vital Signs: Vital Signs: Last Vital Signs Temp 97.5 F 02/22/21 07:56 Pulse 83 02/22/21 08:07 Resp 20 02/22/21 07:56 BP 138/68 02/22/21 08:07 Pulse Ox 99 02/22/21 07:56 Body Mass Index 46.0 Physical exam: Constitutional: Not in acute distress Cvs: rrr, [id number] , no murmur res: clear to auscultation ,no rhonchii or wheezing abd: no rebound or guarding ,nt, bs present. ext pulses present , no cyanosis , swelling seems improving neuro: axo3 , nonfocal. Objective Data Current Medications Generic Name Dose Route Start Last Admin Trade Name Freq PRN Reason Stop Dose Admin Acetaminophen 650 mg 02/20/21 02:02 Acetaminophen 325 Mg Tablet PO Q6H PRN Pain, Mild (Pain Scale 1-3) Atorvastatin Calcium 40 mg 02/20/21 21:00 02/21/21 21:11 Atorvastatin Calcium 40 Mg Tablet PO 40 mg BEDTIME HANANE Administration Carvedilol 25 mg 02/21/21 09:45 02/22/21 08:07 Carvedilol 25 Mg Tablet PO 25 mg BID HANANE Administration Protocol Cilostazol 100 mg 02/20/21 21:00 02/22/21 08:07 Cilostazol 100 Mg Tablet PO 100 mg BID HANANE Administration Cyanocobalamin 1,000 mcg 02/20/21 18:00 02/20/21 18:16 Cyanocobalamin (Vitamin B-12) 1,000 Mcg/Ml Vial IM 03/13/21 18:01 1,000 mcg Q7D HANANE Administration Dextrose 25 gm 02/19/21 19:20 02/19/21 20:02 Dextrose 50 % 25 Gm/50 Ml Vial IVPUSH 25 gm ONCE PRN Administration POC <60 Docusate Sodium 100 mg 02/20/21 02:02 Docusate Sodium 100 Mg Capsule PO DAILY PRN Constipation Docusate Sodium 100 mg 02/20/21 21:00 02/21/21 21:11 Docusate Sodium 100 Mg Capsule PO 100 mg BEDTIME HANANE Administration Furosemide 40 mg 02/20/21 09:00 02/22/21 08:07 Furosemide 40 Mg/4 Ml Vial IVPUSH 40 mg DAILY HANANE Administration Protocol Gabapentin 300 mg 02/20/21 21:00 02/21/21 21:11 Gabapentin 300 Mg Capsule PO 300 mg BEDTIME HANANE Administration Heparin Sodium (Porcine) 5,000 unit 02/20/21 03:00 02/22/21 02:52 Heparin Sodium,Porcine 5,000 Unit/Ml Vial SUBCUT 5,000 unit Q12H HANANE Administration Insulin Human Lispro 0 unit 02/21/21 16:30 02/22/21 08:06 Insulin Lispro 100 Unit/Ml 3 Ml Vial SUBCUT 2 unit QIDACHS HANANE Administration Protocol Montelukast Sodium 10 mg 02/20/21 21:00 02/21/21 21:12 Montelukast Sodium 10 Mg Tablet PO 10 mg BEDTIME HANANE Administration Ondansetron HCl 4 mg 02/20/21 02:02 Ondansetron Hcl 4 Mg/2 Ml Vial IVPUSH Q8H PRN Nausea and Vomiting Pharmacy Consult 1 each 02/20/21 00:29 Consult Rx Perform Med Rec MISCELLANE ONCE PRN Consult order Polyethylene Glycol 17 gm 02/20/21 17:30 02/22/21 08:08 Polyethylene Glycol 3350 17 Gm Powd.Pack PO Not Given DAILY HANANE Sodium Chloride 3 ml 02/20/21 08:00 02/22/21 00:08 0.9 % Sodium Chloride Flush 3 Ml Syringe IVFLUSH 3 ml QSHIFT HANANE Administration Sucralfate 2 gm 02/20/21 16:00 02/22/21 08:07 Sucralfate 1 Gm Tablet PO 2 gm DAILY HANANE Administration Labs CBC & Chem 7: 02/22/21 04:25 02/22/21 04:25 Assessment and Plan (1) Anemia: Status: Acute Assessment and Plan: 1. CHF exacerbation etiology unclear echo pending Patient was started on IV Lasix diursed ? 600 ml unclear bnp improving Continue monitor I&O Daily weights Repeat BNP Probably need to switch to p.o. Lasix in the morning 2. Diabetes/hypoglycemia: Continue to monitor fingersticks Will add coverage above 200 mg/dL , avoid coverage below 200. 3. bill:: improved. 4. anemia: Workup chilel shows iron deficiency/B12 deficiency B12 supplement added Monitor H&H-7.8-imrpove to 9.6 Transfused 1 unit PRBC. Occult blood added Gi eval also since has hypochromic anemia? iron def 5. 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
[2021-02-22 10:58] LABS: Alanine Aminotransferase 17 U/L (0-31); Alkaline Phosphatase 122 U/L (39-117); Aspartate Amino Transferase 16 U/L (5-31); Bilirubin Direct 0.3 mg/dL (0.0-0.5); Bilirubin Total 0.8 mg/dL (0.0-1.0); Total Protein 5.9 g/dL (6.5-8.0)
[2021-02-22 11:25] LABS: Glucose, Whole Blood 290 mg/dL (60-115)
--- NOTE | 2021-02-22 11:26 | PM.PNCARD ---
Subjective Subjective Date of Service: 02/22/21 Principal diagnosis: CHF, Interval history: Patient says she is better. Leg swelling is improved. She has been transfused and hematocrit has improved. She denies any chest pain or lightheadedness. Review of Systems Constitutional: Reports no additional constitutional complaints Cardiovascular: Reports no additional cardiovascular complaints Respiratory: Reports no additional respiratory complaints Reports system reviewed and no additional complaints, except as documented Psychiatric: Reports no additional psychiatric complaints Physical Exam Vital Signs: Last Vital Signs Temp 97.5 F 02/22/21 07:56 Pulse 83 02/22/21 08:07 Resp 20 02/22/21 07:56 BP 138/68 02/22/21 08:07 Pulse Ox 99 02/22/21 07:56 Body Mass Index 46.0 Neck Neck: Yes trachea midline, Yes supple and Yes no JVD Resp Effort & Inspection: normal respiratory effort Auscultation: clear to auscultation bilaterally Cardio Palpation: normal PMI Rate: regular rate Rhythm: regular rhythm Heart sounds: S1 normal heart sound present and Murmur heart sound present systolic late, decrescendo and crescendo GI Auscultation: normal bowel sounds Extrem General: Yes no clubbing, cyanosis or edema Results Labs and Meds Result diagrams: 02/22/21 04:25 02/22/21 04:25 Lab results: Laboratory Results - last 24 hr 02/19/21 02/21/21 02/21/21 19:45 05:10 05:10 Hgb Hct VBG pO2 108 Sodium Potassium Chloride Carbon Dioxide Anion Gap BUN Creatinine Estim Creat Clear Calc Estimated GFR POC Glucose Random Glucose Estimat Average Glucose 174 Hemoglobin A1c % 7.7 Calcium Total Bilirubin 0.8 Direct Bilirubin 0.3 AST 14 D ALT 16 Alkaline Phosphatase 120 H D Total Protein 5.8 L Albumin 2.9 L Crossmatch 02/21/21 02/21/21 02/21/21 08:51 11:09 15:59 Hgb Hct VBG pO2 Sodium Potassium Chloride Carbon Dioxide Anion Gap BUN Creatinine Estim Creat Clear Calc Estimated GFR POC Glucose 280 H 257 H Random Glucose Estimat Average Glucose Hemoglobin A1c % Calcium Total Bilirubin Direct Bilirubin AST ALT Alkaline Phosphatase Total Protein Albumin Crossmatch See Detail 02/21/21 02/21/21 02/21/21 16:27 20:56 23:44 Hgb Hct VBG pO2 Sodium Potassium Chloride Carbon Dioxide Anion Gap BUN Creatinine Estim Creat Clear Calc Estimated GFR POC Glucose 243 H 183 H 193 H Random Glucose Estimat Average Glucose Hemoglobin A1c % Calcium Total Bilirubin Direct Bilirubin AST ALT Alkaline Phosphatase Total Protein Albumin Crossmatch 02/22/21 02/22/21 02/22/21 04:25 04:25 07:33 Hgb 9.6 L D Hct 29.3 L VBG pO2 Sodium 139 Potassium 3.6 Chloride 100 Carbon Dioxide 30 H Anion Gap 13 BUN 14 Creatinine 1.12 Estim Creat Clear Calc 40.5 Estimated GFR 47 POC Glucose 198 H Random Glucose 208 H D Estimat Average Glucose Hemoglobin A1c % Calcium 8.9 Total Bilirubin 0.8 Direct Bilirubin 0.3 AST 16 ALT 17 Alkaline Phosphatase 122 H Total Protein 5.9 L Albumin 3.0 L Crossmatch 02/22/21 11:20 Hgb Hct VBG pO2 Sodium Potassium Chloride Carbon Dioxide Anion Gap BUN Creatinine Estim Creat Clear Calc Estimated GFR POC Glucose 290 H Random Glucose Estimat Average Glucose Hemoglobin A1c % Calcium Total Bilirubin Direct Bilirubin AST ALT Alkaline Phosphatase Total Protein Albumin Crossmatch Progress Note: A&P Assessment and plan (1) CHF exacerbation: Status: Acute Assessment and Plan: CHF exacerbation will patient with severe anemia and severe aortic stenosis. Clinically appears better. Continue supportive care. Not sure she requires oxygen on a chronic basis. This needs to be evaluated. Can switch to oral diuretics. Transfuse 1 more unit. Maintain hematocrit above 30. Continue to treat underlying causes for anemia and workup for the same (2) Aortic stenosis: Status: Acute Assessment and Plan: Aortic stenosis which is severe and needs to be intervened upon once her medical condition improves. Maintain hematocrit above 30. Anemia workup should be pursued prior to considering aortic valve replacement. Continue to treat underlying pulmonary issues related to COVID. May require oxygen at home. Will sign of the case. Thank you for allowing us to partake in the care Fall Risk Details Current Medications: Current Medications Generic Name Dose Route Start Last Admin Trade Name Freq PRN Reason Stop Dose Admin Acetaminophen 650 mg 02/20/21 02:02 Acetaminophen 325 Mg Tablet PO Q6H PRN Pain, Mild (Pain Scale 1-3) Atorvastatin Calcium 40 mg 02/20/21 21:00 02/21/21 21:11 Atorvastatin Calcium 40 Mg Tablet PO 40 mg BEDTIME HANANE Administration Carvedilol 25 mg 02/21/21 09:45 02/22/21 08:07 Carvedilol 25 Mg Tablet PO 25 mg BID HANANE Administration Protocol Cilostazol 100 mg 02/20/21 21:00 02/22/21 08:07 Cilostazol 100 Mg Tablet PO 100 mg BID HANANE Administration Cyanocobalamin 1,000 mcg 02/20/21 18:00 02/20/21 18:16 Cyanocobalamin (Vitamin B-12) 1,000 Mcg/Ml Vial IM 03/13/21 18:01 1,000 mcg Q7D HANANE Administration Dextrose 25 gm 02/19/21 19:20 02/19/21 20:02 Dextrose 50 % 25 Gm/50 Ml Vial IVPUSH 25 gm ONCE PRN Administration POC <60 Docusate Sodium 100 mg 02/20/21 02:02 Docusate Sodium 100 Mg Capsule PO DAILY PRN Constipation Docusate Sodium 100 mg 02/20/21 21:00 02/21/21 21:11 Docusate Sodium 100 Mg Capsule PO 100 mg BEDTIME HANANE Administration Furosemide 40 mg 02/20/21 09:00 02/22/21 08:07 Furosemide 40 Mg/4 Ml Vial IVPUSH 40 mg DAILY HANANE Administration Protocol Gabapentin 300 mg 02/20/21 21:00 02/21/21 21:11 Gabapentin 300 Mg Capsule PO 300 mg BEDTIME HANANE Administration Heparin Sodium (Porcine) 5,000 unit 02/20/21 03:00 02/22/21 02:52 Heparin Sodium,Porcine 5,000 Unit/Ml Vial SUBCUT 5,000 unit Q12H HANANE Administration Insulin Human Lispro 0 unit 02/21/21 16:30 02/22/21 08:06 Insulin Lispro 100 Unit/Ml 3 Ml Vial SUBCUT 2 unit QIDACHS HANANE Administration Protocol Montelukast Sodium 10 mg 02/20/21 21:00 02/21/21 21:12 Montelukast Sodium 10 Mg Tablet PO 10 mg BEDTIME HANANE Administration Ondansetron HCl 4 mg 02/20/21 02:02 Ondansetron Hcl 4 Mg/2 Ml Vial IVPUSH Q8H PRN Nausea and Vomiting Pharmacy Consult 1 each 02/20/21 00:29 Consult Rx Perform Med Rec MISCELLANE ONCE PRN Consult order Polyethylene Glycol 17 gm 02/20/21 17:30 02/22/21 08:08 Polyethylene Glycol 3350 17 Gm Powd.Pack PO Not Given DAILY HANANE Sodium Chloride 3 ml 02/20/21 08:00 02/22/21 09:18 0.9 % Sodium Chloride Flush 3 Ml Syringe IVFLUSH Not Given QSHIFT HANANE Sucralfate 2 gm 02/20/21 16:00 02/22/21 08:07 Sucralfate 1 Gm Tablet PO 2 gm DAILY HANANE Administration Time Spent With Patient Time: Total time spent is greater than 50% in coordination of care (as documented) at patient's floor/unit and/or counseling patient: Time with patient: 25 - 35 minutes Procedures Date of Service Date of Service: 02/22/21
[2021-02-22 12:03] LABS: B Type Natriuretic Peptide 338 pg/mL (<100)
--- NOTE | 2021-02-22 12:29 | PM.EVENT ---
Event Note Date of Service: 02/22/21 Event Note: THIS PATIENT WAS SEEN BY ME THIS MORNING FOR PULMONARY CONSULTATION. I REVIEWED HER RECENT HISTORY, EVENTS WHICH BROUGHT HER TO THE HOSPITAL, CURRENT LAB AND IMAGING. COMPLETE NOTE IS DICTATED. A: POST COVID PULMONARY FIBROSIS/ILD . HYPOXEMIA, MILD. P: DOES NOT NEED ANY ACTIVE TREATMENT SUCH WITH STEROIDS. MAY BE KEPT ON OXYGEN, LOW DOES, JUST TO KEEP O2 SAT ABOVE 90%. SHOULD BE FOLLOWED OUTPATIENT FOR PULMONARY ISSUES. WILL NEED TO REPEAT CT SCAN IN ABOUT 2 OR 3 MONTHS..
--- NOTE | 2021-02-22 15:26 | PM.PNNEP ---
Subjective Subjective Date of Service: 02/22/21 Principal diagnosis: CHF, Interval history: Breathing improved she says denies edema Bicarb rising to 30 (not typical for her even with her ILD) Cr stable Physical Exam Vital Signs: Vital Signs: Last Vital Signs Temp 97.9 F 02/22/21 12:00 Pulse 87 02/22/21 12:00 Resp 20 02/22/21 12:00 BP 138/60 02/22/21 12:00 Pulse Ox 100 02/22/21 12:00 Body Mass Index 46.0 Const: General: no acute distress Orientation/consciousness: patient oriented x3 Eyes: EOM: EOMs intact bilaterally Neck: Neck: Yes supple Resp: Auscultation: diminished lung sounds Cardio: Rate: regular rate Heart sounds: Murmur heart sound present GI: Palpation (GI): Soft to palpation Neuro: General: patient oriented x3 and moves all extremities Objective Data Labs CBC & Chem 7: 02/22/21 04:25 02/22/21 04:25 Labs: Laboratory Results - last 24 hr 02/19/21 02/21/21 02/21/21 19:45 05:10 15:59 Hgb Hct VBG pO2 108 Sodium Potassium Chloride Carbon Dioxide Anion Gap BUN Creatinine Estim Creat Clear Calc Estimated GFR POC Glucose 257 H Random Glucose Calcium Total Bilirubin 0.8 Direct Bilirubin 0.3 AST 14 D ALT 16 Alkaline Phosphatase 120 H D B-Natriuretic Peptide Total Protein 5.8 L Albumin 2.9 L 02/21/21 02/21/21 02/21/21 16:27 20:56 23:44 Hgb Hct VBG pO2 Sodium Potassium Chloride Carbon Dioxide Anion Gap BUN Creatinine Estim Creat Clear Calc Estimated GFR POC Glucose 243 H 183 H 193 H Random Glucose Calcium Total Bilirubin Direct Bilirubin AST ALT Alkaline Phosphatase B-Natriuretic Peptide Total Protein Albumin 02/22/21 02/22/21 02/22/21 04:25 04:25 07:33 Hgb 9.6 L D Hct 29.3 L VBG pO2 Sodium 139 Potassium 3.6 Chloride 100 Carbon Dioxide 30 H Anion Gap 13 BUN 14 Creatinine 1.12 Estim Creat Clear Calc 40.5 Estimated GFR 47 POC Glucose 198 H Random Glucose 208 H D Calcium 8.9 Total Bilirubin 0.8 Direct Bilirubin 0.3 AST 16 ALT 17 Alkaline Phosphatase 122 H B-Natriuretic Peptide Total Protein 5.9 L Albumin 3.0 L 02/22/21 02/22/21 11:06 11:20 Hgb Hct VBG pO2 Sodium Potassium Chloride Carbon Dioxide Anion Gap BUN Creatinine Estim Creat Clear Calc Estimated GFR POC Glucose 290 H Random Glucose Calcium Total Bilirubin Direct Bilirubin AST ALT Alkaline Phosphatase B-Natriuretic Peptide 338 H Total Protein Albumin Assessment & Plan Assessment and plan (1) CKD (chronic kidney disease) stage 3, GFR 30-59 ml/min: Status: Acute Assessment and Plan: ARLEY due to compromise in renal perfusion due to CRS- improved Now approaching euvolemia Bicarb rising to 30 (not 2/2 chronic resp acidosis, but rather contraction) plan: - stop iv lasix today - transition to PO maintenace tomorrow - maybe 40mg PO BID if you agree. Time Spent With Patient Time: Total time spent is greater than 50% in coordination of care (as documented) at patient's floor/unit and/or counseling patient: Procedures Date of Service Date of Service: 02/22/21
[2021-02-22 16:18] LABS: Glucose, Whole Blood 189 mg/dL (60-115)
[2021-02-22] MEDS: Furosemide 20 MG/2 ML VIAL IVPUSH (18:22)
--- NOTE | 2021-02-22 18:59 | CONS_ITS ---
DATE OF SERVICE: 02/22/2021 HISTORY OF PRESENT ILLNESS: This 75-year-old very pleasant female was admitted 2 days ago because she had taken an extra dose of insulin. The patient was quite asymptomatic, but brought to the emergency room. She had no new neurological issues. No change in mental status. The patient did complain of shortness of breath, cough, and minimal edema of lower extremities. This patient was treated for active COVID infection just about a month ago. She did receive protocol of dexamethasone and remdesivir. At that time, the chest x-ray showed only minimal interstitial disease, but with respectively, the CT scan of the chest did show bilateral alveolar densities typical of COVID pneumonia. PAST MEDICAL HISTORY: 1. Mild bronchial asthma. 2. Diabetes mellitus with diabetic neuropathy. 3. GERD symptoms. 4. Hypertension. 5. Morbid obesity, but not treated for any obstructive sleep apnea. 6. The patient does have history of mild bronchial asthma, but she is not on active respiratory medications at home except montelukast 10 mg daily for nasal allergies. PHYSICAL EXAMINATION: GENERAL: This 75-year-old female is sitting up in the chair. Oxygen at 1 L/minute, oxygenating well. She is not in any distress. She was talking to me full sentences without any shortness of breath. THROAT: Clear. NECK: No JVD. Trachea midline. CHEST: Symmetrical. Percussion note resonant. LUNGS: Breath sounds slightly distant, but no wheezes or rhonchi are heard. Also, no crepitations. CARDIAC: Sounds are distant. Rhythm regular. No murmurs. ABDOMEN: Flat, soft, nontender. EXTREMITIES: No edema or varicosities. Peripheral pulses are normal. DIAGNOSTIC DATA: Chest x-ray shows bilateral airspace disease, slightly improved from before. CT scan of the chest on 01/17 revealed that she has bilateral alveolar/ground-glass infiltrates typical of COVID pneumonia. 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 Mild hypoxemia corrected with low-dose oxygen. Past history of asthma, but not active at present. RECOMMENDATIONS: From pulmonary point of view, she is fairly stable. The interstitial infiltrates are fibrotic changes noted probably would be persistent for indefinite period. Does not need any active treatment except for oxygen supplementation if she desaturates below 90% at rest or on walking. The patient should be followed as outpatient for her pulmonary status. If she has cough, that can be treated symptomatically. Thank you very much for asking me to see this patient. MD FOSTER Miranda/CARLOS / [phone]
[2021-02-22] MEDS: Montelukast Sodium 10 MG TABLET PO (20:32)
[2021-02-22] MEDS: Atorvastatin Calcium 40 MG TABLET PO (20:32)
[2021-02-22] MEDS: Docusate Sodium 100 MG CAPSULE PO (20:32)
[2021-02-22] MEDS: Gabapentin 300 MG CAPSULE PO (20:32)
[2021-02-22 20:35] LABS: Glucose, Whole Blood 250 mg/dL (60-115)
[2021-02-23] VITALS (7 sets, daily range): BP systolic 124–149; BP diastolic 56–63; PULSE 80–91; RESP 18–20; TEMP 36.2–37; O2SAT 98–99
[2021-02-23] MEDS: Heparin Sodium,Porcine 5,000 UNIT/ML VIAL 5000 UNIT SUBCUT ×2 (03:17→15:01)
[2021-02-23 05:35] LABS: Hematocrit 29.6 % (37-47); Hemoglobin 9.7 g/dl (12.0-16.0); Mean Corpuscular HGB Conc 32.8 g/dl (31.0-35.0); Mean Corpuscular Hemoglobin 25.3 pg (27.0-33.0); Mean Corpuscular Volume 77.3 fL (80-98); Mean Platelet Volume 9.3 fL (9.4-12.3); Platelet Count 480 X10*3/uL (160-400); Red Blood Count 3.83 X10*6/uL (4.20-5.50); Red Cell Distribution Width 16.3 % (11.0-16.0)
[2021-02-23 05:38] LABS: B Type Natriuretic Peptide 388 pg/mL (<100)
[2021-02-23 05:47] LABS: Anion Gap 14 (12-20); Blood Urea Nitrogen 21 mg/dL (9-16); Carbon Dioxide 28 mmol/L (22-29); Chloride 99 mmol/L (96-108); Creatinine Clr Calc Pharmacy 36.2; Estimated Glomerular Filt Rate 42; Glucose Random 210 mg/dL (60-115); Potassium 3.6 mmol/L (3.3-5.1); Sodium 137 mmol/L (135-145)
[2021-02-23 08:06] LABS: Glucose, Whole Blood 231 mg/dL (60-115)
[2021-02-23] MEDS: Insulin Lispro 100 UNIT/ML 3 ML VIAL SUBCUT ×3 (08:35→16:51)
[2021-02-23] MEDS: 0.9 % Sodium Chloride Flush 3 ML SYRINGE IVFLUSH ×3 (08:36→20:54)
[2021-02-23] MEDS: Furosemide 40 MG TABLET PO (08:37)
[2021-02-23] MEDS: carvediloL 25 MG TABLET PO ×2 (08:38→20:53)
[2021-02-23] MEDS: Sucralfate 1 GM TABLET 2 GM PO (08:38)
[2021-02-23] MEDS: cilostazoL 100 MG TABLET PO ×2 (08:38→20:53)
[2021-02-23 11:15] LABS: Glucose, Whole Blood 383 mg/dL (60-115)
--- NOTE | 2021-02-23 14:06 | HO.PM.IMPN ---
Subjective Subjective Date of Service: 02/23/21 Interval History: Patient feeling better this a.m. complaining of mild shortness of breath denies chest discomfort, not on home oxygen, no acute issues overnight. ROS General no headache, no dizziness no fever chills. CVS no chest pain, no palpitation. Respiratory no cough, + sob Gastrointestinal no nausea, no vomiting, no abdominal pain Physical Exam Vital Signs: Vital Signs: Last Vital Signs Temp 97.5 F 02/23/21 12:00 Pulse 82 02/23/21 12:00 Resp 20 02/23/21 12:00 BP 134/63 02/23/21 12:00 Pulse Ox 99 02/23/21 12:00 Body Mass Index 46.0 General resting comfortably,no acute distress. Neck supple no JVD. CVS regular rate rhythm, systolic murmur Respiratory lungs clear to auscultation, no respiratory distress, no rales Gastrointestinal abdomen soft, nontender, bowel sounds audible, no rigidity. Extremities trace edema. Neuro nonfocal ,speech clear. Skin no rash Objective Data Current Medications Generic Name Dose Route Start Last Admin Trade Name Freq PRN Reason Stop Dose Admin Acetaminophen 650 mg 02/20/21 02:02 Acetaminophen 325 Mg Tablet PO Q6H PRN Pain, Mild (Pain Scale 1-3) Atorvastatin Calcium 40 mg 02/20/21 21:00 02/22/21 20:32 Atorvastatin Calcium 40 Mg Tablet PO 40 mg BEDTIME HANANE Administration Bisacodyl 20 mg 02/23/21 17:40 Bisacodyl 5 Mg Tablet. PO 02/23/21 17:41 ONCE ONE Carvedilol 25 mg 02/21/21 09:45 02/23/21 08:38 Carvedilol 25 Mg Tablet PO 25 mg BID HANANE Administration Protocol Cilostazol 100 mg 02/20/21 21:00 02/23/21 08:38 Cilostazol 100 Mg Tablet PO 100 mg BID HANANE Administration Cyanocobalamin 1,000 mcg 02/20/21 18:00 02/20/21 18:16 Cyanocobalamin (Vitamin B-12) 1,000 Mcg/Ml Vial IM 03/13/21 18:01 1,000 mcg Q7D HANANE Administration Dextrose 25 gm 02/19/21 19:20 02/19/21 20:02 Dextrose 50 % 25 Gm/50 Ml Vial IVPUSH 25 gm ONCE PRN Administration POC <60 Docusate Sodium 100 mg 02/20/21 02:02 Docusate Sodium 100 Mg Capsule PO DAILY PRN Constipation Docusate Sodium 100 mg 02/20/21 21:00 02/22/21 20:32 Docusate Sodium 100 Mg Capsule PO 100 mg BEDTIME HANANE Administration Furosemide 40 mg 02/23/21 09:00 02/23/21 08:37 Furosemide 40 Mg Tablet PO 40 mg DAILY HANANE Administration Protocol Gabapentin 300 mg 02/20/21 21:00 02/22/21 20:32 Gabapentin 300 Mg Capsule PO 300 mg BEDTIME HANANE Administration Heparin Sodium (Porcine) 5,000 unit 02/20/21 03:00 02/23/21 03:17 Heparin Sodium,Porcine 5,000 Unit/Ml Vial SUBCUT 5,000 unit Q12H HANANE Administration Insulin Human Lispro 0 unit 02/21/21 16:30 02/23/21 11:24 Insulin Lispro 100 Unit/Ml 3 Ml Vial SUBCUT 10 unit QIDACHS HANANE Administration Protocol Montelukast Sodium 10 mg 02/20/21 21:00 02/22/21 20:32 Montelukast Sodium 10 Mg Tablet PO 10 mg BEDTIME HANANE Administration Ondansetron HCl 4 mg 02/20/21 02:02 Ondansetron Hcl 4 Mg/2 Ml Vial IVPUSH Q8H PRN Nausea and Vomiting Pharmacy Consult 1 each 02/20/21 00:29 Consult Rx Perform Med Rec MISCELLANE ONCE PRN Consult order Polyethylene Glycol 17 gm 02/20/21 17:30 02/23/21 08:39 Polyethylene Glycol 3350 17 Gm Powd.Pack PO Not Given DAILY HANANE Polyethylene Glycol/Electrolytes 4,000 ml 02/23/21 18:45 Peg 3350/Na Sulf,Bicarb,Cl/Kcl 4,000 Ml Soln.Recon PO 02/23/21 18:46 ONCE ONE Sodium Chloride 3 ml 02/20/21 08:00 02/23/21 08:36 0.9 % Sodium Chloride Flush 3 Ml Syringe IVFLUSH 3 ml QSHIFT HANANE Administration Sucralfate 2 gm 02/20/21 16:00 02/23/21 08:38 Sucralfate 1 Gm Tablet PO 2 gm DAILY HANANE Administration Labs CBC & Chem 7: 02/23/21 04:47 02/23/21 04:47 Assessment and Plan (1) Respiratory failure with hypoxia: Status: Acute (2) CHF exacerbation: Status: Acute (3) Anemia: Status: Acute (4) Diabetes mellitus: Status: Acute Assessment and Plan: 1. Acute diastolic CHF with severe aortic stenosis patient feels better is still complaining of shortness of breath, denies PND or orthopnea, BNP remains elevated at 388 , last BNP in January 22 was 134 Is 1.4 L negative since admission, Continue Coreg and Lasix, will give IV Lasix today, follow BNP and BMP at a.m.follow i/os daily weight. Case discussed with Tugboat Engineer Dr Sexton patient is being followed by [facility] cardiology for will recommend outpt follow up with primary [facility]. 2. Diabetes/hypoglycemia: Noted to have elevated blood sugars in 200-300 range will resume Lantus low-dose since on clear liquid diet and continue insulin sliding scale. At home take Lantus, linagliptin and follow insulin sliding scale. 3.Chang: Creatinine 1.4 on admission improved to 1.2 4. Chronic anemia: Likely contributing to hypoxia and CHF, workup consistent with B12 deficiency, status post 1 unit of packed RBC, hematocrit improved, started on B12 supplement Patient evaluated by Gastroenterology and plan is for colonoscopy early next week, iron studies show low iron saturation with normal ferritin and TIBC. 5. 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 Encourage out of bed to chair and incentive spirometer. 6. DVT prophylaxis with heparin
--- NOTE | 2021-02-23 14:49 | PM.PNNEP ---
Subjective Subjective Date of Service: 02/23/21 Principal diagnosis: CHF, Interval history: No events Cr stable Physical Exam Vital Signs: Vital Signs: Last Vital Signs Temp 97.5 F 02/23/21 12:00 Pulse 82 02/23/21 12:00 Resp 20 02/23/21 12:00 BP 134/63 02/23/21 12:00 Pulse Ox 99 02/23/21 12:00 Body Mass Index 46.0 Const: General: no acute distress Orientation/consciousness: patient oriented x3 Eyes: EOM: EOMs intact bilaterally Neck: Neck: Yes supple Resp: Auscultation: diminished lung sounds Cardio: Rate: regular rate Heart sounds: Murmur heart sound present GI: Palpation (GI): Soft to palpation Neuro: General: patient oriented x3 and moves all extremities Objective Data Labs CBC & Chem 7: 02/23/21 04:47 02/23/21 04:47 Labs: Laboratory Results - last 24 hr 02/21/21 02/22/21 02/22/21 08:51 16:13 19:54 WBC RBC Hgb Hct MCV MCH MCHC RDW Plt Count MPV Absolute Nucleated RBC Nucleated RBC % (auto) Sodium Potassium Chloride Carbon Dioxide Anion Gap BUN Creatinine Estim Creat Clear Calc Estimated GFR POC Glucose 189 H 250 H Random Glucose Calcium B-Natriuretic Peptide Blood Type B Positive Antibody Screen NEGATIVE Crossmatch See Detail 02/23/21 02/23/21 02/23/21 04:47 04:47 04:47 WBC 10.0 RBC 3.83 L Hgb 9.7 L Hct 29.6 L MCV 77.3 L MCH 25.3 L MCHC 32.8 RDW 16.3 H Plt Count 480 H MPV 9.3 L Absolute Nucleated RBC 0.000 Nucleated RBC % (auto) 0.0 Sodium 137 Potassium 3.6 Chloride 99 Carbon Dioxide 28 Anion Gap 14 BUN 21 H Creatinine 1.25 Estim Creat Clear Calc 36.2 Estimated GFR 42 POC Glucose Random Glucose 210 H Calcium 9.0 B-Natriuretic Peptide 388 H Blood Type Antibody Screen Crossmatch 02/23/21 02/23/21 07:27 11:10 WBC RBC Hgb Hct MCV MCH MCHC RDW Plt Count MPV Absolute Nucleated RBC Nucleated RBC % (auto) Sodium Potassium Chloride Carbon Dioxide Anion Gap BUN Creatinine Estim Creat Clear Calc Estimated GFR POC Glucose 231 H 383 H* Random Glucose Calcium B-Natriuretic Peptide Blood Type Antibody Screen Crossmatch Assessment & Plan Assessment and plan (1) CKD (chronic kidney disease) stage 3, GFR 30-59 ml/min: Status: Acute Assessment and Plan: ARLEY due to compromise in renal perfusion due to CRS- improved Now approaching euvolemia Bicarb 30 -> 29 plan: - Please hold further IV lasix - can likely transition to a maintenance diuretics consider torsemide 20mg daily. Time Spent With Patient Time: Total time spent is greater than 50% in coordination of care (as documented) at patient's floor/unit and/or counseling patient: Procedures Date of Service Date of Service: 02/23/21
[2021-02-23] MEDS: Furosemide 20 MG/2 ML VIAL IVPUSH (15:01)
[2021-02-23 16:04] LABS: Glucose, Whole Blood 297 mg/dL (60-115)
[2021-02-23] MEDS: bisacodyL 5 MG TABLET.DR 20 MG PO (18:07)
[2021-02-23] MEDS: PEG 3350/Na Sulf,Bicarb,Cl/KCL 4,000 ML SOLN.RECON 4000 ML PO (18:44)
[2021-02-23 20:04] LABS: Glucose, Whole Blood 242 mg/dL (60-115)
[2021-02-23] MEDS: Docusate Sodium 100 MG CAPSULE PO (20:53)
[2021-02-23] MEDS: Atorvastatin Calcium 40 MG TABLET PO (20:53)
[2021-02-23] MEDS: Gabapentin 300 MG CAPSULE PO (20:54)
[2021-02-23] MEDS: Montelukast Sodium 10 MG TABLET PO (20:54)
[2021-02-24] VITALS (11 sets, daily range): BP systolic 99–164; BP diastolic 42–80; PULSE 76–94; RESP 12–20; TEMP 35.9–37.2; O2SAT 93–99; BMI 42.4
[2021-02-24 07:17] LABS: Glucose, Whole Blood 287 mg/dL (60-115)
[2021-02-24] MEDS: 0.9 % Sodium Chloride Flush 3 ML SYRINGE IVFLUSH ×3 (07:51→21:32)
[2021-02-24 08:05] LABS: B Type Natriuretic Peptide 267 pg/mL (<100)
[2021-02-24 08:22] LABS: Anion Gap 17 (12-20); Blood Urea Nitrogen 19 mg/dL (9-16); Calcium 9.4 mg/dL (8.4-10.2); Carbon Dioxide 26 mmol/L (22-29); Chloride 97 mmol/L (96-108); Creatinine Clr Calc Pharmacy 36.8; Estimated Glomerular Filt Rate 45; Glucose Random 274 mg/dL (60-115); Potassium 3.7 mmol/L (3.3-5.1); Sodium 136 mmol/L (135-145)
[2021-02-24] MEDS: Sucralfate 1 GM TABLET 2 GM PO (09:46)
[2021-02-24] MEDS: Furosemide 40 MG TABLET PO (09:46)
[2021-02-24] MEDS: carvediloL 25 MG TABLET PO ×2 (09:46→21:18)
[2021-02-24] MEDS: cilostazoL 100 MG TABLET PO ×2 (09:46→21:15)
--- NOTE | 2021-02-24 11:06 | PM.PNNEP ---
Subjective Subjective Date of Service: 02/24/21 Principal diagnosis: CHF, Interval history: Events noted. All recent data reviewed Physical Exam Vital Signs: Vital Signs: Last Vital Signs Temp 98.6 F 02/24/21 07:35 Pulse 94 02/24/21 07:35 Resp 19 02/24/21 07:35 BP 136/63 02/24/21 07:35 Pulse Ox 99 02/24/21 07:35 Body Mass Index 42.4 Const: General: no acute distress Eyes: EOM: EOMs intact bilaterally Neck: Neck: Yes supple Resp: Auscultation: diminished lung sounds Cardio: Jugular venous distension: no JVD GI: Palpation (GI): Soft to palpation Neuro: General: moves all extremities Objective Data Labs CBC & Chem 7: 02/23/21 04:47 02/24/21 05:21 Labs: Laboratory Results - last 24 hr 02/23/21 02/23/21 02/23/21 11:10 16:00 20:01 Sodium Potassium Chloride Carbon Dioxide Anion Gap BUN Creatinine Estim Creat Clear Calc Estimated GFR POC Glucose 383 H* 297 H 242 H Random Glucose Calcium B-Natriuretic Peptide 02/24/21 02/24/21 02/24/21 05:21 05:21 07:10 Sodium 136 Potassium 3.7 Chloride 97 Carbon Dioxide 26 Anion Gap 17 BUN 19 H Creatinine 1.17 Estim Creat Clear Calc 36.8 Estimated GFR 45 POC Glucose 287 H Random Glucose 274 H Calcium 9.4 B-Natriuretic Peptide 267 H Assessment & Plan Assessment and plan (1) CKD (chronic kidney disease) stage 3, GFR 30-59 ml/min: Status: Acute Assessment and Plan: Had ARLEY due to compromise in renal perfusion due to CRS- improved Getting diuresis; Serum creatinine improved to baseline; Has CKD at baseline No ACEI/ARB/NSAID's. Concur with rest of current management Shall arrange outpatient follow up when D/Dannie Time Spent With Patient Time: Total time spent is greater than 50% in coordination of care (as documented) at patient's floor/unit and/or counseling patient: Procedures Date of Service Date of Service: 02/24/21
[2021-02-24] MEDS: Insulin Lispro 100 UNIT/ML 3 ML VIAL SUBCUT ×3 (11:09→21:17)
[2021-02-24 12:21] LABS: Glucose, Whole Blood 313 mg/dL (60-115)
[2021-02-24 12:21] LABS: Glucose, Whole Blood 229 mg/dL (60-115)
[2021-02-24 12:29] LABS: Glucose, Whole Blood 221 mg/dL (60-115)
--- NOTE | 2021-02-24 12:45 | MHC.SHP ---
Pre-Procedural Eval Section A The patient is an INPATIENT: Yes The History & Physical has been completed within 30 days and I have reviewed it.: Yes Section B Chief Complaint: Hypoxic Respiratory failure Allergies: Allergies Allergy/AdvReac Type Severity Reaction Status Date / Time ibuprofen [From MOTRIN] Allergy Intermediate RASH Verified 01/18/21 02:29 oxycodone [From PERCOCET] Allergy Intermediate ITCHING Verified 01/18/21 02:29 acetaminophen [Percocet] Allergy Unknown unknown Verified 01/18/21 02:29 Motrin Allergy Unknown high blood Verified 01/18/21 02:29 pressure Plan Diagnosis/Plan: Unchanged I have reviewed the history and physical and performed a pertinent physical examination on my patient. No changes have occurred unless specified.
--- NOTE | 2021-02-24 12:45 | PM.OP ---
Brief Operative Note Date of Service: 02/24/21 Pre-op diagnosis: anemia Post-op diagnosis: same Procedure: see op note Surgeon: Mariaelena Morgan MD Anesthesia: MAC Was an Licensed [employer] Manager used for this Procedure?: No Estimated blood loss (mL): 0 Condition: stable Disposition: PACU
--- NOTE | 2021-02-24 12:45 | W.PM.OPN ---
Operative Note Operative Note Date of Service: 02/24/21 Narrative: Operative Information Procedure Description: EGD, Colonoscopy FLEXIBLE TRANSORAL UPPER GASTROINTESTINAL ENDOSCOPY AND COLONOSCOPY PROCEDURE NOTE UPPER ENDOSCOPY Consent: Indications for the procedure and potential complications of bleeding, perforation, reaction to medications and missed diagnosis were discussed with the patient and informed consent was obtained. Instrument: Olympus GIF H 190 J mid size upper endoscope Monitoring: Vital signs and clinical assessment, continuous EKG monitoring, Pulse oximetry, Carbon Dioxide monitoring and blood pressure monitoring were done throughout the procedure. Procedure: The patient was placed in the left lateral decubitis position and pre-procedure medications were administered and a bite block was placed. The endoscope was inserted into the mouth and advanced under direct vision to the third part of duodenum. A careful inspection was made as the upper endoscope was withdrawn including a retroflexed examination of the proximal stomach; Findings and interventions are described below. Findings: Larynx:normal Esophagus: GE junction at 35 cm, diaphragm hiatus at 35 cm, LA grade A esophagitis Stomach: Nodular mucosa with midl erythema. Biopsies were obtained. Grade 2 flap valve on retroflexed examination of the cardia. Duodenum: Moderate bulbar duodenitis, no ulcers seen, bx taken Intervention: Biopsies as noted above COLONOSCOPY Instrument: Olympus variable stiffness adult scope 190L Colonoscopy Monitoring: Vital signs and clinical assessment, continuous EKG monitoring, Pulse oximetry, Carbon Dioxide monitoring and blood pressure monitoring were done throughout the procedure. Colon withdrawal time was 16 minutes. Procedure: The patient was placed in the left lateral decubitis position and pre-procedure medications were administered. After a digital rectal examination of the ano-rectum, the video colonoscope was inserted into the rectum and advanced through the colon to the cecum The colonoscope was slowly withdrawn in a retrograde panoramic fashion and the colon mucosa was carefully examined including a retroflexed view of the rectum. Findings and interventions are described below. Procedure Difficulty:moderate Findings: Terminal Ileum-unable to intubate due to looping Cecum:normal Ascending Colon: normal Transverse Colon -8-10 mm sessile polyp removed with cold snare Descending Colon: x 2 sessile polyps removed with forceps 6-9 mm Sigmoid Colon: moderate severe divertciulosis Rectum: Retroflexion with small internal hemorrhoids, grade I Anorectum - normal Colon preparation: [place] Bowel Preparation Scale Right colon; 2 Transverse colon: 2 Left colon; 2 (0 = Unprepared colon segment with mucosa not seen due to solid stool that cannot be cleared. 1 = Portion of mucosa of the colon segment seen, but other areas of the colon segment not well seen due to staining, residual stool and/or opaque liquid. 2 = Minor amount of residual staining, small fragments of stool and/or opaque liquid, but mucosa of colon segment seen well. 3 = Entire mucosa of colon segment seen well with no residual staining, small fragments of stool or opaque liquid) Impression and Post Procedure Diagnosis: Endoscopy Findings: duodenitis gastritis esophagitis Colonoscopy Findings: polyps internal hemorrhoids diverticular disease Plan: Await Pathology results Repeat Colonoscopy in 5 years if health allows or earlier if clinically indicated High fiber diet leaflet avoid straining at stool, epsom salts and sitz bath, anusol supps or cream prn\ d/c on PPI e.g pantoprazole 40 mg daily, and treat h pylori if pos if anemia persists inspite of this then o/p capsule endoscopy Above findings were reviewed with the patient and relevant handouts were provided if indicated.
--- NOTE | 2021-02-24 12:49 | P.CONAN_ITS ---
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) Hypoxia (Acute) Hyponatremia (Acute) Acute vaginitis (Acute) Encounter to discuss test results (Acute) Pelvic pain in female (Acute) Potential exposure to STD (Acute) Vaginal irritation (Acute) CKD (chronic kidney disease) stage 3, GFR 30-59 ml/min (Acute) Dyslipidemia (Acute) Diabetic polyneuropathy associated with type 2 diabetes mellitus (Acute) Diabetic nephropathy associated with type 2 diabetes mellitus (Acute) group home (current) use of insulin (Acute) Infected cyst of skin (Acute) Chronic kidney disease (Acute) Hypertension (Acute) Asthma (Acute) Thalamic pain syndrome (Acute) GERD (gastroesophageal reflux disease) (Acute) Morbid obesity (Acute) Diabetes mellitus (Acute) Past Medical History Medical History Aortic stenosis Asthma Chronic kidney disease CKD (chronic kidney disease) stage 3, GFR 30-59 ml/min Diabetes mellitus Diabetic nephropathy associated with type 2 diabetes mellitus Diabetic polyneuropathy associated with type 2 diabetes mellitus Dyslipidemia GERD (gastroesophageal reflux disease) Hypertension Infected cyst of skin 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 Morbid obesity Thalamic pain syndrome Family History Family History Sister History of renal pelvis cancer Surgical History Surgical History History of breast lump/mass excision History of cholecystectomy History of tubal ligation Social History Social History Household Members: Family Housing: House Alcohol intake: unknown Smoking Status: Never smoker service: No Current occupational status: unemployed Gender identity: female Meds Allergies Allergy/AdvReac Type Severity Reaction Status Date / Time ibuprofen [From MOTRIN] Allergy Intermediate RASH Verified 01/18/21 02:29 oxycodone [From PERCOCET] Allergy Intermediate ITCHING Verified 01/18/21 02:29 acetaminophen [Percocet] Allergy Unknown unknown Verified 01/18/21 02:29 Motrin Allergy Unknown high blood Verified 01/18/21 02:29 pressure Active Medications: Current Medications Generic Name Dose Route Start Last Admin Trade Name Freq PRN Reason Stop Dose Admin Acetaminophen 650 mg 02/20/21 02:02 Acetaminophen 325 Mg Tablet PO Q6H PRN Pain, Mild (Pain Scale 1-3) Atorvastatin Calcium 40 mg 02/20/21 21:00 02/23/21 20:53 Atorvastatin Calcium 40 Mg Tablet PO 40 mg BEDTIME HANANE Administration Carvedilol 25 mg 02/21/21 09:45 02/24/21 09:46 Carvedilol 25 Mg Tablet PO 25 mg BID HANANE Administration Protocol Cilostazol 100 mg 02/20/21 21:00 02/24/21 09:46 Cilostazol 100 Mg Tablet PO 100 mg BID HANANE Administration Cyanocobalamin 1,000 mcg 02/20/21 18:00 02/20/21 18:16 Cyanocobalamin (Vitamin B-12) 1,000 Mcg/Ml Vial IM 03/13/21 18:01 1,000 mcg Q7D HANANE Administration Dextrose 25 gm 02/19/21 19:20 02/19/21 20:02 Dextrose 50 % 25 Gm/50 Ml Vial IVPUSH 25 gm ONCE PRN Administration POC <60 Docusate Sodium 100 mg 02/20/21 02:02 Docusate Sodium 100 Mg Capsule PO DAILY PRN Constipation Docusate Sodium 100 mg 02/20/21 21:00 02/23/21 20:53 Docusate Sodium 100 Mg Capsule PO 100 mg BEDTIME HANANE Administration Furosemide 40 mg 02/23/21 09:00 02/24/21 09:46 Furosemide 40 Mg Tablet PO 40 mg DAILY HANANE Administration Protocol Gabapentin 300 mg 02/20/21 21:00 02/23/21 20:54 Gabapentin 300 Mg Capsule PO 300 mg BEDTIME HANANE Administration Heparin Sodium (Porcine) 5,000 unit 02/20/21 03:00 02/24/21 03:03 Heparin Sodium,Porcine 5,000 Unit/Ml Vial SUBCUT Not Given Q12H [facility] Insulin Glargine 12 unit 02/23/21 21:00 02/23/21 21:00 Insulin Glargine,Hum.Rec.Anlog 100 Unit/Ml 10 Ml Vial SUBCUT Not Given BEDTIME [facility] Insulin Human Lispro 0 unit 02/21/21 16:30 02/24/21 11:09 Insulin Lispro 100 Unit/Ml 3 Ml Vial SUBCUT 8 unit QIDACHS [facility] Administration Protocol Montelukast Sodium 10 mg 02/20/21 21:00 02/23/21 20:54 Montelukast Sodium 10 Mg Tablet PO 10 mg BEDTIME HANANE Administration Ondansetron HCl 4 mg 02/20/21 02:02 Ondansetron Hcl 4 Mg/2 Ml Vial IVPUSH Q8H PRN Nausea and Vomiting Pharmacy Consult 1 each 02/20/21 00:29 Consult Rx Perform Med Rec MISCELLANE ONCE PRN Consult order Polyethylene Glycol 17 gm 02/20/21 17:30 02/24/21 10:10 Polyethylene Glycol 3350 17 Gm Powd.Pack PO Not Given DAILY [facility] Sodium Chloride 3 ml 02/20/21 08:00 02/24/21 07:51 0.9 % Sodium Chloride Flush 3 Ml Syringe IVFLUSH 3 ml QSHIFT [facility] Administration Sucralfate 2 gm 02/20/21 16:00 02/24/21 09:46 Sucralfate 1 Gm Tablet PO 2 gm DAILY HANANE Administration Home Medications Medication Instructions Recorded Confirmed Last Taken Type amlodipine 10 mg PO DAILY 01/18/21 02/20/21 Unknown History atorvastatin 40 mg PO BEDTIME 01/18/21 02/20/21 Unknown History carvedilol 25 mg PO BID 01/18/21 02/20/21 Unknown History cilostazol 100 mg PO BID 01/18/21 02/20/21 Unknown History fluconazole 150 mg PO DAILY 01/18/21 02/20/21 Unknown History hydralazine 50 mg PO TID 01/18/21 02/20/21 Unknown History linagliptin 5 mg PO DAILY 01/18/21 02/20/21 Unknown History montelukast 10 mg PO BEDTIME 01/18/21 02/20/21 Unknown History sucralfate 2 g PO DAILY 01/18/21 02/20/21 Unknown History gabapentin 300 mg PO BEDTIME 02/20/21 02/20/21 Unknown History insulin glargine [Lantus Solostar 47 unit SUBCUT DAILY 02/20/21 02/20/21 Unknown History U-100 Insulin] insulin lispro 1 sliding scale dose SUBCUT TIDAC 02/20/21 02/20/21 Unknown History Exam Exam Date and Time: February 24, 2021 1249 Height,Weight and Vital Signs: Height 4 ft 8 in Weight 85.9 kg Last Vital Signs Temp 96.8 F 02/24/21 11:08 Pulse 85 02/24/21 11:08 Resp 18 02/24/21 11:08 BP 129/60 02/24/21 11:08 Pulse Ox 98 02/24/21 11:08 Pertinent Lab Results Pertinent Lab Results: Laboratory Tests 02/19/21 02/19/21 02/19/21 18:50 19:05 19:24 WBC RBC Hgb Hct MCV MCH MCHC RDW Plt Count MPV Immature Gran % (Auto) Neut % (Auto) Lymph % (Auto) [place] % (Auto) Eos % (Auto) Baso % (Auto) Lymph # (Auto) [place] # (Auto) Eos # (Auto) Baso # (Auto) Abs Immat Gran (auto) Absolute Neuts (auto) Absolute Nucleated RBC Nucleated RBC % (auto) PT INR VBG pH VBG pCO2 VBG pO2 VBG HCO3 VBG O2 Saturation VBG Base Excess Sodium Potassium Chloride Carbon Dioxide Anion Gap BUN Creatinine Estim Creat Clear Calc Estimated GFR POC Glucose 76 62 172 H Random Glucose Estimat Average Glucose Hemoglobin A1c % Calcium Iron TIBC % Saturation Unsat Iron Binding Ferritin Total Bilirubin Direct Bilirubin AST ALT Alkaline Phosphatase B-Natriuretic Peptide Total Protein Albumin Vitamin B12 Folate Urine Color Urine Appearance Urine pH Ur Specific [place] Urine Protein Urine Glucose (UA) Urine Ketones Urine Blood Urine Nitrite Ur Leukocyte Esterase COVID-19 ([facility]AN[facility]) COVID-19 Clin Com Blood Type Antibody Screen Crossmatch 02/19/21 02/19/21 02/19/21 19:40 19:42 19:42 WBC 11.2 H RBC 3.46 L Hgb 8.6 L Hct 26.0 L MCV 75.1 L MCH 24.9 L MCHC 33.1 RDW 16.2 H Plt Count 550 H MPV 8.3 L Immature Gran % (Auto) 1.3 H Neut % (Auto) 69.9 Lymph % (Auto) 17.1 L [place] % (Auto) 10.3 Eos % (Auto) 1.0 Baso % (Auto) 0.4 Lymph # (Auto) 1.9 [place] # (Auto) 1.2 Eos # (Auto) 0.1 Baso # (Auto) 0.0 Abs Immat Gran (auto) 0.15 H Absolute Neuts (auto) 7.8 Absolute Nucleated RBC 0.020 H Nucleated RBC % (auto) 0.2 PT 12.9 INR 1.1 VBG pH VBG pCO2 VBG pO2 VBG HCO3 VBG O2 Saturation VBG Base Excess Sodium Potassium Chloride Carbon Dioxide Anion Gap BUN Creatinine Estim Creat Clear Calc Estimated GFR POC Glucose 124 H Random Glucose Estimat Average Glucose Hemoglobin A1c % Calcium Iron TIBC % Saturation Unsat Iron Binding Ferritin Total Bilirubin Direct Bilirubin AST ALT Alkaline Phosphatase B-Natriuretic Peptide Total Protein Albumin Vitamin B12 Folate Urine Color Urine Appearance Urine pH Ur Specific [place] Urine Protein Urine Glucose (UA) Urine Ketones Urine Blood Urine Nitrite Ur Leukocyte Esterase COVID-19 ([facility]ANCA) COVID-19 [employer] Blood Type Antibody Screen Crossmatch 02/19/21 02/19/21 02/19/21 19:42 19:45 19:55 WBC RBC Hgb Hct MCV MCH MCHC RDW Plt Count MPV Immature Gran % (Auto) Neut % (Auto) Lymph % (Auto) [place] % (Auto) Eos % (Auto) Baso % (Auto) Lymph # (Auto) [place] # (Auto) Eos # (Auto) Baso # (Auto) Abs Immat Gran (auto) Absolute Neuts (auto) Absolute Nucleated RBC Nucleated RBC % (auto) PT INR VBG pH 7.46 H VBG pCO2 30 VBG pO2 108 VBG HCO3 21 L VBG O2 Saturation 98.0 VBG Base Excess -0.9 Sodium 136 Potassium 3.5 Chloride 104 Carbon Dioxide 21 L Anion Gap 15 BUN 12 Creatinine 1.44 H Estim Creat Clear Calc 30.9 Estimated GFR 35 POC Glucose 94 Random Glucose 120 H Estimat Average Glucose Hemoglobin A1c % Calcium 9.3 D Iron TIBC % Saturation Unsat Iron Binding Ferritin Total Bilirubin Direct Bilirubin AST ALT Alkaline Phosphatase B-Natriuretic Peptide Total Protein Albumin Vitamin B12 Folate Urine Color Urine Appearance Urine pH Ur Specific [place] Urine Protein Urine Glucose (UA) Urine Ketones Urine Blood Urine Nitrite Ur Leukocyte Esterase COVID-19 ([facility]) COVID-19 [employer] Blood Type Antibody Screen Crossmatch 02/19/21 02/19/21 02/19/21 20:11 20:30 20:45 WBC RBC Hgb Hct MCV MCH MCHC RDW Plt Count MPV Immature Gran % (Auto) Neut % (Auto) Lymph % (Auto) [place] % (Auto) Eos % (Auto) Baso % (Auto) Lymph # (Auto) [place] # (Auto) Eos # (Auto) Baso # (Auto) Abs Immat Gran (auto) Absolute Neuts (auto) Absolute Nucleated RBC Nucleated RBC % (auto) PT INR VBG pH VBG pCO2 VBG pO2 VBG HCO3 VBG O2 Saturation VBG Base Excess Sodium Potassium Chloride Carbon Dioxide Anion Gap BUN Creatinine Estim Creat Clear Calc Estimated GFR POC Glucose 172 H 119 H 131 H Random Glucose Estimat Average Glucose Hemoglobin A1c % Calcium Iron TIBC % Saturation Unsat Iron Binding Ferritin Total Bilirubin Direct Bilirubin AST ALT Alkaline Phosphatase B-Natriuretic Peptide Total Protein Albumin Vitamin B12 Folate Urine Color Urine Appearance Urine pH Ur Specific [place] Urine Protein Urine Glucose (UA) Urine Ketones Urine Blood Urine Nitrite Ur Leukocyte Esterase COVID-19 ([facility]ANCA) COVID-19 [employer] Blood Type Antibody Screen Crossmatch 02/19/21 02/19/21 02/19/21 21:08 21:36 21:52 WBC RBC Hgb Hct MCV MCH MCHC RDW Plt Count MPV Immature Gran % (Auto) Neut % (Auto) Lymph % (Auto) [place] % (Auto) Eos % (Auto) Baso % (Auto) Lymph # (Auto) [place] # (Auto) Eos # (Auto) Baso # (Auto) Abs Immat Gran (auto) Absolute Neuts (auto) Absolute Nucleated RBC Nucleated RBC % (auto) PT INR VBG pH VBG pCO2 VBG pO2 VBG HCO3 VBG O2 Saturation VBG Base Excess Sodium Potassium Chloride Carbon Dioxide Anion Gap BUN Creatinine Estim Creat Clear Calc Estimated GFR POC Glucose 61 113 94 Random Glucose Estimat Average Glucose Hemoglobin A1c % Calcium Iron TIBC % Saturation Unsat Iron Binding Ferritin Total Bilirubin Direct Bilirubin AST ALT Alkaline Phosphatase B-Natriuretic Peptide Total Protein Albumin Vitamin B12 Folate Urine Color Urine Appearance Urine pH Ur Specific [place] Urine Protein Urine Glucose (UA) Urine Ketones Urine Blood Urine Nitrite Ur Leukocyte Esterase COVID-19 ([facility]ANCA) COVID-19 [employer] Blood Type Antibody Screen Crossmatch 02/19/21 02/19/21 02/19/21 22:03 22:07 22:31 WBC RBC Hgb Hct MCV MCH MCHC RDW Plt Count MPV Immature Gran % (Auto) Neut % (Auto) Lymph % (Auto) [place] % (Auto) Eos % (Auto) Baso % (Auto) Lymph # (Auto) [place] # (Auto) Eos # (Auto) Baso # (Auto) Abs Immat Gran (auto) Absolute Neuts (auto) Absolute Nucleated RBC Nucleated RBC % (auto) PT INR VBG pH VBG pCO2 VBG pO2 VBG HCO3 VBG O2 Saturation VBG Base Excess Sodium Potassium Chloride Carbon Dioxide Anion Gap BUN Creatinine Estim Creat Clear Calc Estimated GFR POC Glucose 99 78 Random Glucose Estimat Average Glucose Hemoglobin A1c % Calcium Iron TIBC % Saturation Unsat Iron Binding Ferritin Total Bilirubin Direct Bilirubin AST ALT Alkaline Phosphatase B-Natriuretic Peptide Total Protein Albumin Vitamin B12 Folate Urine Color Urine Appearance Urine pH Ur Specific [place] Urine Protein Urine Glucose (UA) Urine Ketones Urine Blood Urine Nitrite Ur Leukocyte Esterase COVID-19 (FRANCA) Negative COVID-19 [employer] See Note Blood Type Antibody Screen Crossmatch 02/19/21 02/19/21 02/19/21 22:46 23:19 23:38 WBC RBC Hgb Hct MCV MCH MCHC RDW Plt Count MPV Immature Gran % (Auto) Neut % (Auto) Lymph % (Auto) [place] % (Auto) Eos % (Auto) Baso % (Auto) Lymph # (Auto) [place] # (Auto) Eos # (Auto) Baso # (Auto) Abs Immat Gran (auto) Absolute Neuts (auto) Absolute Nucleated RBC Nucleated RBC % (auto) PT INR VBG pH VBG pCO2 VBG pO2 VBG HCO3 VBG O2 Saturation VBG Base Excess Sodium Potassium Chloride Carbon Dioxide Anion Gap BUN Creatinine Estim Creat Clear Calc Estimated GFR POC Glucose 84 92 100 Random Glucose Estimat Average Glucose Hemoglobin A1c % Calcium Iron TIBC % Saturation Unsat Iron Binding Ferritin Total Bilirubin Direct Bilirubin AST ALT Alkaline Phosphatase B-Natriuretic Peptide Total Protein Albumin Vitamin B12 Folate Urine Color Urine Appearance Urine pH Ur Specific [place] Urine Protein Urine Glucose (UA) Urine Ketones Urine Blood Urine Nitrite Ur Leukocyte Esterase COVID-19 (FRANCA) COVID-[employer] Blood Type Antibody Screen Crossmatch 02/20/21 02/20/21 02/20/21 01:13 01:27 01:34 WBC RBC Hgb Hct MCV MCH MCHC RDW Plt Count MPV Immature Gran % (Auto) Neut % (Auto) Lymph % (Auto) [place] % (Auto) Eos % (Auto) Baso % (Auto) Lymph # (Auto) [place] # (Auto) Eos # (Auto) Baso # (Auto) Abs Immat Gran (auto) Absolute Neuts (auto) Absolute Nucleated RBC Nucleated RBC % (auto) PT INR VBG pH VBG pCO2 VBG pO2 VBG HCO3 VBG O2 Saturation VBG Base Excess Sodium Potassium Chloride Carbon Dioxide Anion Gap BUN Creatinine Estim Creat Clear Calc Estimated GFR POC Glucose 130 H Random Glucose Estimat Average Glucose Hemoglobin A1c % Calcium Iron TIBC % Saturation Unsat Iron Binding Ferritin Total Bilirubin Direct Bilirubin AST ALT Alkaline Phosphatase B-Natriuretic Peptide 388 H Total Protein Albumin Vitamin B12 Folate Urine Color YELLOW Urine Appearance CLEAR Urine pH 6.0 Ur Specific [place] <= 1.005 Urine Protein NEG Urine Glucose (UA) NEG Urine Ketones NEG Urine Blood NEG Urine Nitrite NEG Ur Leukocyte Esterase NEG COVID-19 (FRANCA) COVID-[employer] Blood Type Antibody Screen Crossmatch 02/20/21 02/20/21 02/20/21 02:13 03:02 07:00 WBC RBC Hgb Hct MCV MCH MCHC RDW Plt Count MPV Immature Gran % (Auto) Neut % (Auto) Lymph % (Auto) [place] % (Auto) Eos % (Auto) Baso % (Auto) Lymph # (Auto) [place] # (Auto) Eos # (Auto) Baso # (Auto) Abs Immat Gran (auto) Absolute Neuts (auto) Absolute Nucleated RBC Nucleated RBC % (auto) PT INR VBG pH VBG pCO2 VBG pO2 VBG HCO3 VBG O2 Saturation VBG Base Excess Sodium Potassium Chloride Carbon Dioxide Anion Gap BUN Creatinine Estim Creat Clear Calc Estimated GFR POC Glucose 138 H 188 H Random Glucose Estimat Average Glucose Hemoglobin A1c % Calcium Iron TIBC % Saturation Unsat Iron Binding Ferritin Total Bilirubin Direct Bilirubin AST ALT Alkaline Phosphatase B-Natriuretic Peptide 360 H Total Protein Albumin Vitamin B12 Folate Urine Color Urine Appearance Urine pH Ur Specific [place] Urine Protein Urine Glucose (UA) Urine Ketones Urine Blood Urine Nitrite Ur Leukocyte Esterase COVID-19 ([facility]ANCA) COVID-19 [employer] Blood Type Antibody Screen Crossmatch 02/20/21 02/20/21 02/20/21 07:46 07:46 08:34 WBC RBC Hgb 8.7 L Hct 27.2 L MCV MCH MCHC RDW Plt Count MPV Immature Gran % (Auto) Neut % (Auto) Lymph % (Auto) [place] % (Auto) Eos % (Auto) Baso % (Auto) Lymph # (Auto) [place] # (Auto) Eos # (Auto) Baso # (Auto) Abs Immat Gran (auto) Absolute Neuts (auto) Absolute Nucleated RBC Nucleated RBC % (auto) PT INR VBG pH VBG pCO2 VBG pO2 VBG HCO3 VBG O2 Saturation VBG Base Excess Sodium 140 Potassium 4.0 Chloride 105 Carbon Dioxide 23 Anion Gap 16 BUN 13 Creatinine 1.24 Estim Creat Clear Calc 36.9 Estimated GFR 42 POC Glucose Random Glucose 184 H D Estimat Average Glucose Hemoglobin A1c % Calcium 9.1 Iron 21 L TIBC 244 % Saturation 9 L Unsat Iron Binding 223 Ferritin 185 Total Bilirubin Direct Bilirubin AST ALT Alkaline Phosphatase B-Natriuretic Peptide Total Protein Albumin Vitamin B12 156 L Folate 5.0 Urine Color Urine Appearance Urine pH Ur Specific [place] Urine Protein Urine Glucose (UA) Urine Ketones Urine Blood Urine Nitrite Ur Leukocyte Esterase COVID-19 (FRANCA) COVID-19 [employer] [facility] Blood Type Antibody Screen Crossmatch 02/20/21 02/20/21 02/20/21 12:00 16:02 20:46 WBC RBC Hgb Hct MCV MCH MCHC RDW Plt Count MPV Immature Gran % (Auto) Neut % (Auto) Lymph % (Auto) [place] % (Auto) Eos % (Auto) Baso % (Auto) Lymph # (Auto) [place] # (Auto) Eos # (Auto) Baso # (Auto) Abs Immat Gran (auto) Absolute Neuts (auto) Absolute Nucleated RBC Nucleated RBC % (auto) PT INR VBG pH VBG pCO2 VBG pO2 VBG HCO3 VBG O2 Saturation VBG Base Excess Sodium Potassium Chloride Carbon Dioxide Anion Gap BUN Creatinine Estim Creat Clear Calc Estimated GFR POC Glucose 273 H 280 H 219 H Random Glucose Estimat Average Glucose Hemoglobin A1c % Calcium Iron TIBC % Saturation Unsat Iron Binding Ferritin Total Bilirubin Direct Bilirubin AST ALT Alkaline Phosphatase B-Natriuretic Peptide Total Protein Albumin Vitamin B12 Folate Urine Color Urine Appearance Urine pH Ur Specific [place] Urine Protein Urine Glucose (UA) Urine Ketones Urine Blood Urine Nitrite Ur Leukocyte Esterase COVID-19 (FRANCA) COVID-19 [employer] [facility] Blood Type Antibody Screen Crossmatch 02/21/21 02/21/21 02/21/21 05:10 05:10 05:10 WBC RBC Hgb 7.8 L Hct 24.6 L MCV MCH MCHC RDW Plt Count MPV Immature Gran % (Auto) Neut % (Auto) Lymph % (Auto) [place] % (Auto) Eos % (Auto) Baso % (Auto) Lymph # (Auto) [place] # (Auto) Eos # (Auto) Baso # (Auto) Abs Immat Gran (auto) Absolute Neuts (auto) Absolute Nucleated RBC Nucleated RBC % (auto) PT INR VBG pH VBG pCO2 VBG pO2 VBG HCO3 VBG O2 Saturation VBG Base Excess Sodium 140 Potassium 3.7 Chloride 103 Carbon Dioxide 29 Anion Gap 12 BUN 14 Creatinine 1.12 Estim Creat Clear Calc 40.5 Estimated GFR 47 POC Glucose Random Glucose 148 H Estimat Average Glucose 174 Hemoglobin A1c % 7.7 Calcium 8.8 Iron TIBC % Saturation Unsat Iron Binding Ferritin Total Bilirubin 0.8 Direct Bilirubin 0.3 AST 14 D ALT 16 Alkaline Phosphatase 120 H D B-Natriuretic Peptide Total Protein 5.8 L Albumin 2.9 L Vitamin B12 Folate Urine Color Urine Appearance Urine pH Ur Specific [place] Urine Protein Urine Glucose (UA) Urine Ketones Urine Blood Urine Nitrite Ur Leukocyte Esterase COVID-19 (FRANCA) COVID-[employer] Com Blood Type Antibody Screen Crossmatch 02/21/21 02/21/21 02/21/21 07:21 08:51 11:09 WBC RBC Hgb Hct MCV MCH MCHC RDW Plt Count MPV Immature Gran % (Auto) Neut % (Auto) Lymph % (Auto) [place] % (Auto) Eos % (Auto) Baso % (Auto) Lymph # (Auto) [place] # (Auto) Eos # (Auto) Baso # (Auto) Abs Immat Gran (auto) Absolute Neuts (auto) Absolute Nucleated RBC Nucleated RBC % (auto) PT INR VBG pH VBG pCO2 VBG pO2 VBG HCO3 VBG O2 Saturation VBG Base Excess Sodium Potassium Chloride Carbon Dioxide Anion Gap BUN Creatinine Estim Creat Clear Calc Estimated GFR POC Glucose 165 H 280 H Random Glucose Estimat Average Glucose Hemoglobin A1c % Calcium Iron TIBC % Saturation Unsat Iron Binding Ferritin Total Bilirubin Direct Bilirubin AST ALT Alkaline Phosphatase B-Natriuretic Peptide Total Protein Albumin Vitamin B12 Folate Urine Color Urine Appearance Urine pH Ur Specific [place] Urine Protein Urine Glucose (UA) Urine Ketones Urine Blood Urine Nitrite Ur Leukocyte Esterase COVID-19 ([facility]ANCA) COVID-19 [employer] Com Blood Type B Positive Antibody Screen NEGATIVE Crossmatch See Detail 02/21/21 02/21/21 02/21/21 15:59 16:27 20:56 WBC RBC Hgb Hct MCV MCH MCHC RDW Plt Count MPV Immature Gran % (Auto) Neut % (Auto) Lymph % (Auto) [place] % (Auto) Eos % (Auto) Baso % (Auto) Lymph # (Auto) [place] # (Auto) Eos # (Auto) Baso # (Auto) Abs Immat Gran (auto) Absolute Neuts (auto) Absolute Nucleated RBC Nucleated RBC % (auto) PT INR VBG pH VBG pCO2 VBG pO2 VBG HCO3 VBG O2 Saturation VBG Base Excess Sodium Potassium Chloride Carbon Dioxide Anion Gap BUN Creatinine Estim Creat Clear Calc Estimated GFR POC Glucose 257 H 243 H 183 H Random Glucose Estimat Average Glucose Hemoglobin A1c % Calcium Iron TIBC % Saturation Unsat Iron Binding Ferritin Total Bilirubin Direct Bilirubin AST ALT Alkaline Phosphatase B-Natriuretic Peptide Total Protein Albumin Vitamin B12 Folate Urine Color Urine Appearance Urine pH Ur Specific [place] Urine Protein Urine Glucose (UA) Urine Ketones Urine Blood Urine Nitrite Ur Leukocyte Esterase COVID-19 ([facility]) COVID-19 Clin Com Blood Type Antibody Screen Crossmatch 02/21/21 02/22/21 02/22/21 23:44 04:25 04:25 WBC RBC Hgb 9.6 L D Hct 29.3 L MCV MCH MCHC RDW Plt Count MPV Immature Gran % (Auto) Neut % (Auto) Lymph % (Auto) [place] % (Auto) Eos % (Auto) Baso % (Auto) Lymph # (Auto) [place] # (Auto) Eos # (Auto) Baso # (Auto) Abs Immat Gran (auto) Absolute Neuts (auto) Absolute Nucleated RBC Nucleated RBC % (auto) PT INR VBG pH VBG pCO2 VBG pO2 VBG HCO3 VBG O2 Saturation VBG Base Excess Sodium 139 Potassium 3.6 Chloride 100 Carbon Dioxide 30 H Anion Gap 13 BUN 14 Creatinine 1.12 Estim Creat Clear Calc 40.5 Estimated GFR 47 POC Glucose 193 H Random Glucose 208 H D Estimat Average Glucose Hemoglobin A1c % Calcium 8.9 Iron TIBC % Saturation Unsat Iron Binding Ferritin Total Bilirubin 0.8 Direct Bilirubin 0.3 AST 16 ALT 17 Alkaline Phosphatase 122 H B-Natriuretic Peptide Total Protein 5.9 L Albumin 3.0 L Vitamin B12 Folate Urine Color Urine Appearance Urine pH Ur Specific [place] Urine Protein Urine Glucose (UA) Urine Ketones Urine Blood Urine Nitrite Ur Leukocyte Esterase COVID-19 ([facility]AN[facility]) COVID-19 Clin Com Blood Type Antibody Screen Crossmatch 02/22/21 02/22/21 02/22/21 07:33 11:06 11:20 WBC RBC Hgb Hct MCV MCH MCHC RDW Plt Count MPV Immature Gran % (Auto) Neut % (Auto) Lymph % (Auto) [place] % (Auto) Eos % (Auto) Baso % (Auto) Lymph # (Auto) [place] # (Auto) Eos # (Auto) Baso # (Auto) Abs Immat Gran (auto) Absolute Neuts (auto) Absolute Nucleated RBC Nucleated RBC % (auto) PT INR VBG pH VBG pCO2 VBG pO2 VBG HCO3 VBG O2 Saturation VBG Base Excess Sodium Potassium Chloride Carbon Dioxide Anion Gap BUN Creatinine Estim Creat Clear Calc Estimated GFR POC Glucose 198 H 290 H Random Glucose Estimat Average Glucose Hemoglobin A1c % Calcium Iron TIBC % Saturation Unsat Iron Binding Ferritin Total Bilirubin Direct Bilirubin AST ALT Alkaline Phosphatase B-Natriuretic Peptide 338 H Total Protein Albumin Vitamin B12 Folate Urine Color Urine Appearance Urine pH Ur Specific [place] Urine Protein Urine Glucose (UA) Urine Ketones Urine Blood Urine Nitrite Ur Leukocyte Esterase COVID-19 ([facility]AN[facility]) COVID-19 Clin Com Blood Type Antibody Screen Crossmatch 02/22/21 02/22/21 02/23/21 16:13 19:54 04:47 WBC 10.0 RBC 3.83 L Hgb 9.7 L Hct 29.6 L MCV 77.3 L MCH 25.3 L MCHC 32.8 RDW 16.3 H Plt Count 480 H MPV 9.3 L Immature Gran % (Auto) Neut % (Auto) Lymph % (Auto) [place] % (Auto) Eos % (Auto) Baso % (Auto) Lymph # (Auto) [place] # (Auto) Eos # (Auto) Baso # (Auto) Abs Immat Gran (auto) Absolute Neuts (auto) Absolute Nucleated RBC 0.000 Nucleated RBC % (auto) 0.0 PT INR VBG pH VBG pCO2 VBG pO2 VBG HCO3 VBG O2 Saturation VBG Base Excess Sodium Potassium Chloride Carbon Dioxide Anion Gap BUN Creatinine Estim Creat Clear Calc Estimated GFR POC Glucose 189 H 250 H Random Glucose Estimat Average Glucose Hemoglobin A1c % Calcium Iron TIBC % Saturation Unsat Iron Binding Ferritin Total Bilirubin Direct Bilirubin AST ALT Alkaline Phosphatase B-Natriuretic Peptide Total Protein Albumin Vitamin B12 Folate Urine Color Urine Appearance Urine pH Ur Specific [place] Urine Protein Urine Glucose (UA) Urine Ketones Urine Blood Urine Nitrite Ur Leukocyte Esterase COVID-19 (FRANCA) COVID-19 [employer] [facility] Blood Type Antibody Screen Crossmatch 02/23/21 02/23/21 02/23/21 04:47 04:47 07:27 WBC RBC Hgb Hct MCV MCH MCHC RDW Plt Count MPV Immature Gran % (Auto) Neut % (Auto) Lymph % (Auto) [place] % (Auto) Eos % (Auto) Baso % (Auto) Lymph # (Auto) [place] # (Auto) Eos # (Auto) Baso # (Auto) Abs Immat Gran (auto) Absolute Neuts (auto) Absolute Nucleated RBC Nucleated RBC % (auto) PT INR VBG pH VBG pCO2 VBG pO2 VBG HCO3 VBG O2 Saturation VBG Base Excess Sodium 137 Potassium 3.6 Chloride 99 Carbon Dioxide 28 Anion Gap 14 BUN 21 H Creatinine 1.25 Estim Creat Clear Calc 36.2 Estimated GFR 42 POC Glucose 231 H Random Glucose 210 H Estimat Average Glucose Hemoglobin A1c % Calcium 9.0 Iron TIBC % Saturation Unsat Iron Binding Ferritin Total Bilirubin Direct Bilirubin AST ALT Alkaline Phosphatase B-Natriuretic Peptide 388 H Total Protein Albumin Vitamin B12 Folate Urine Color Urine Appearance Urine pH Ur Specific [place] Urine Protein Urine Glucose (UA) Urine Ketones Urine Blood Urine Nitrite Ur Leukocyte Esterase COVID-19 (FRANCA) COVID-19 [employer] [facility] Blood Type Antibody Screen Crossmatch 02/23/21 02/23/21 02/23/21 11:10 16:00 20:01 WBC RBC Hgb Hct MCV MCH MCHC RDW Plt Count MPV Immature Gran % (Auto) Neut % (Auto) Lymph % (Auto) [place] % (Auto) Eos % (Auto) Baso % (Auto) Lymph # (Auto) [place] # (Auto) Eos # (Auto) Baso # (Auto) Abs Immat Gran (auto) Absolute Neuts (auto) Absolute Nucleated RBC Nucleated RBC % (auto) PT INR VBG pH VBG pCO2 VBG pO2 VBG HCO3 VBG O2 Saturation VBG Base Excess Sodium Potassium Chloride Carbon Dioxide Anion Gap BUN Creatinine Estim Creat Clear Calc Estimated GFR POC Glucose 383 H* 297 H 242 H Random Glucose Estimat Average Glucose Hemoglobin A1c % Calcium Iron TIBC % Saturation Unsat Iron Binding Ferritin Total Bilirubin Direct Bilirubin AST ALT Alkaline Phosphatase B-Natriuretic Peptide Total Protein Albumin Vitamin B12 Folate Urine Color Urine Appearance Urine pH Ur Specific [place] Urine Protein Urine Glucose (UA) Urine Ketones Urine Blood Urine Nitrite Ur Leukocyte Esterase COVID-19 (FRANCA) COVID-19 [employer] [facility] Blood Type Antibody Screen Crossmatch 02/24/21 02/24/21 02/24/21 05:21 05:21 07:10 WBC RBC Hgb Hct MCV MCH MCHC RDW Plt Count MPV Immature Gran % (Auto) Neut % (Auto) Lymph % (Auto) [place] % (Auto) Eos % (Auto) Baso % (Auto) Lymph # (Auto) [place] # (Auto) Eos # (Auto) Baso # (Auto) Abs Immat Gran (auto) Absolute Neuts (auto) Absolute Nucleated RBC Nucleated RBC % (auto) PT INR VBG pH VBG pCO2 VBG pO2 VBG HCO3 VBG O2 Saturation VBG Base Excess Sodium 136 Potassium 3.7 Chloride 97 Carbon Dioxide 26 Anion Gap 17 BUN 19 H Creatinine 1.17 Estim Creat Clear Calc 36.8 Estimated GFR 45 POC Glucose 287 H Random Glucose 274 H Estimat Average Glucose Hemoglobin A1c % Calcium 9.4 Iron TIBC % Saturation Unsat Iron Binding Ferritin Total Bilirubin Direct Bilirubin AST ALT Alkaline Phosphatase B-Natriuretic Peptide 267 H Total Protein Albumin Vitamin B12 Folate Urine Color Urine Appearance Urine pH Ur Specific [place] Urine Protein Urine Glucose (UA) Urine Ketones Urine Blood Urine Nitrite Ur Leukocyte Esterase COVID-19 (FRANCA) COVID-19 [employer] [facility] Blood Type Antibody Screen Crossmatch 02/24/21 02/24/21 02/24/21 11:04 12:13 12:25 WBC RBC Hgb Hct MCV MCH MCHC RDW Plt Count MPV Immature Gran % (Auto) Neut % (Auto) Lymph % (Auto) [place] % (Auto) Eos % (Auto) Baso % (Auto) Lymph # (Auto) [place] # (Auto) Eos # (Auto) Baso # (Auto) Abs Immat Gran (auto) Absolute Neuts (auto) Absolute Nucleated RBC Nucleated RBC % (auto) PT INR VBG pH VBG pCO2 VBG pO2 VBG HCO3 VBG O2 Saturation VBG Base Excess Sodium Potassium Chloride Carbon Dioxide Anion Gap BUN Creatinine Estim Creat Clear Calc Estimated GFR POC Glucose 313 H 229 H 221 H Random Glucose Estimat Average Glucose Hemoglobin A1c % Calcium Iron TIBC % Saturation Unsat Iron Binding Ferritin Total Bilirubin Direct Bilirubin AST ALT Alkaline Phosphatase B-Natriuretic Peptide Total Protein Albumin Vitamin B12 Folate Urine Color Urine Appearance Urine pH Ur Specific [place] Urine Protein Urine Glucose (UA) Urine Ketones Urine Blood Urine Nitrite Ur Leukocyte Esterase COVID-19 (FRANCA) COVID-19 Clin Com Blood Type Antibody Screen Crossmatch Airway Mallampati Class: II TM Dist: >3cm Neck ROM: Full Partial: Upper Heart: RRR Lungs: CTA Assessment and Plan Assessment Anesthesia Assessment: Anesthesia Plan Discussed and Chart Reviewed Final Anesthetic Review NPO: Yes (Sip water with meds) ASA Class: III Final Preanesthetic Review: No Changes in Pt Med Stat and Consent Obtained/Reviewed Patient Risk: Intermediate Procedure Risk: Intermediate Anesthetic Plan Anesthetic Plan: MAC: Disposition: Standard PACU
--- NOTE | 2021-02-24 13:58 | MHC.CM.PN ---
Female 75 dx resp failure DP is to home with a new referral to [facility]. [facility] requests same day start of care for DM ed. Nursing has been providing education r/t DM. Dtr will provide transportation. CM will follow.
[2021-02-24 14:21] LABS: Glucose, Whole Blood 166 mg/dL (60-115)
[2021-02-24] MEDS: Acetaminophen 325 MG TABLET 650 MG PO (14:56)
[2021-02-24 16:30] LABS: Glucose, Whole Blood 163 mg/dL (60-115)
[2021-02-24] MEDS: Heparin Sodium,Porcine 5,000 UNIT/ML VIAL 5000 UNIT SUBCUT (16:36)
--- NOTE | 2021-02-24 16:44 | P.PNIM_ITS ---
Subjective Subjective Date of Service: 02/24/21 Interval History: Patient feeling better this morning complaining of shortness of breath denies PND orthopnea complaining of excessive burping, daughter and at bedside. ROS General no headache, no dizziness no fever chills. CVS no chest pain, no palpitation. Respiratory no cough, + sob Gastrointestinal no nausea, no vomiting, no abdominal pain Physical Exam Vital Signs: Vital Signs: Last Vital Signs Temp 97.5 F 02/24/21 15:33 Pulse 82 02/24/21 15:33 Resp 18 02/24/21 15:33 BP 135/67 02/24/21 15:33 Pulse Ox 99 02/24/21 15:33 Body Mass Index 42.4 General resting comfortably,no acute distress. Neck supple no JVD. CVS regular rate rhythm, systolic murmur Respiratory lungs clear to auscultation, no respiratory distress, no rales Gastrointestinal abdomen soft, nontender, bowel sounds audible, no rigidity. Extremities no edema. Neuro nonfocal ,speech clear. Skin no rash Objective Data Current Medications Generic Name Dose Route Start Last Admin Trade Name Freq PRN Reason Stop Dose Admin Acetaminophen 650 mg 02/20/21 02:02 02/24/21 14:56 Acetaminophen 325 Mg Tablet PO 650 mg Q6H PRN Administration Pain, Mild (Pain Scale 1-3) Atorvastatin Calcium 40 mg 02/20/21 21:00 02/23/21 20:53 Atorvastatin Calcium 40 Mg Tablet PO 40 mg BEDTIME HANANE Administration Carvedilol 25 mg 02/21/21 09:45 02/24/21 09:46 Carvedilol 25 Mg Tablet PO 25 mg BID HANANE Administration Protocol Cilostazol 100 mg 02/20/21 21:00 02/24/21 09:46 Cilostazol 100 Mg Tablet PO 100 mg BID HANANE Administration Cyanocobalamin 1,000 mcg 02/20/21 18:00 02/20/21 18:16 Cyanocobalamin (Vitamin B-12) 1,000 Mcg/Ml Vial IM 03/13/21 18:01 1,000 mcg Q7D HANANE Administration Dextrose 25 gm 02/19/21 19:20 02/19/21 20:02 Dextrose 50 % 25 Gm/50 Ml Vial IVPUSH 25 gm ONCE PRN Administration POC <60 Docusate Sodium 100 mg 02/20/21 02:02 Docusate Sodium 100 Mg Capsule PO DAILY PRN Constipation Docusate Sodium 100 mg 02/20/21 21:00 02/23/21 20:53 Docusate Sodium 100 Mg Capsule PO 100 mg BEDTIME HANANE Administration Furosemide 40 mg 02/23/21 09:00 02/24/21 09:46 Furosemide 40 Mg Tablet PO 40 mg DAILY HANANE Administration Protocol Gabapentin 300 mg 02/20/21 21:00 02/23/21 20:54 Gabapentin 300 Mg Capsule PO 300 mg BEDTIME HANANE Administration Heparin Sodium (Porcine) 5,000 unit 02/20/21 03:00 02/24/21 16:36 Heparin Sodium,Porcine 5,000 Unit/Ml Vial SUBCUT 5,000 unit Q12H HANANE Administration Insulin Glargine 12 unit 02/23/21 21:00 02/23/21 21:00 Insulin Glargine,Hum.Rec.Anlog 100 Unit/Ml 10 Ml Vial SUBCUT Not Given BEDTIME [facility] Insulin Human Lispro 0 unit 02/21/21 16:30 02/24/21 16:35 Insulin Lispro 100 Unit/Ml 3 Ml Vial SUBCUT 2 unit QIDACHS [facility] Administration Protocol Montelukast Sodium 10 mg 02/20/21 21:00 02/23/21 20:54 Montelukast Sodium 10 Mg Tablet PO 10 mg BEDTIME HANANE Administration Ondansetron HCl 4 mg 02/20/21 02:02 Ondansetron Hcl 4 Mg/2 Ml Vial IVPUSH Q8H PRN Nausea and Vomiting Pharmacy Consult 1 each 02/20/21 00:29 Consult Rx Perform Med Rec MISCELLANE ONCE PRN Consult order Polyethylene Glycol 17 gm 02/20/21 17:30 02/24/21 10:10 Polyethylene Glycol 3350 17 Gm Powd.Pack PO Not Given DAILY HANANE Sodium Chloride 3 ml 02/20/21 08:00 02/24/21 16:37 0.9 % Sodium Chloride Flush 3 Ml Syringe IVFLUSH 3 ml QSHIFT HANANE Administration Sucralfate 2 gm 02/20/21 16:00 02/24/21 09:46 Sucralfate 1 Gm Tablet PO 2 gm DAILY HANANE Administration Labs CBC & Chem 7: 02/23/21 04:47 02/24/21 05:21 Assessment and Plan (1) Respiratory failure with hypoxia: Status: Acute (2) CHF exacerbation: Status: Acute (3) Aortic stenosis: Status: Acute (4) Anemia: Status: Acute Assessment and Plan: 1. Acute diastolic CHF with severe aortic stenosis patient feels better still complaining of shortness of breath, denies PND or orthopnea, BNP trending down from 388 to 267 , last BNP in January 22 was 134 Put out 1.3 L in last 24 hrs, Continue Coreg, DC IV Lasix, give by mouth Lasix, follow BNP and BMP at a.m.follow i/os daily weight. patient is being followed by [facility] cardiology for as outpatient, will recommend follow up with primary extension agent upon discharge 2. Diabetes/hypoglycemia: Noted to have elevated blood sugars in 200-300 range continue Lantus low-dose since on clear liquid diet and continue insulin sliding scale. At home take Lantus, linagliptin and follow insulin sliding scale. 3.Chang: Creatinine 1.4 on admission improved to 1.2 4. Chronic anemia: Likely contributing to hypoxia and CHF, workup consistent with B12 deficiency, status post 1 unit of packed RBC, hematocrit improved, started on B12 supplement Patient evaluated by Gastroenterology and plan is for colonoscopy today, iron studies show low iron saturation with normal ferritin and TIBC. 5. 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 Encourage out of bed to chair and incentive spirometer. 6. DVT prophylaxis with heparin encourage ambulation
[2021-02-24 20:37] LABS: Glucose, Whole Blood 213 mg/dL (60-115)
[2021-02-24] MEDS: Montelukast Sodium 10 MG TABLET PO (21:15)
[2021-02-24] MEDS: Gabapentin 300 MG CAPSULE PO (21:15)
[2021-02-24] MEDS: Atorvastatin Calcium 40 MG TABLET PO (21:15)
[2021-02-24] MEDS: Docusate Sodium 100 MG CAPSULE PO (21:15)
[2021-02-24] MEDS: Insulin Glargine,Hum.rec.anlog 100 UNIT/ML 10 ML VIAL 12 UNIT SUBCUT (21:17)
[2021-02-25 00:02] LABS: Glucose, Whole Blood 134 mg/dL (60-115)
[2021-02-25] MEDS: Heparin Sodium,Porcine 5,000 UNIT/ML VIAL 5000 UNIT SUBCUT (02:23)
[2021-02-25] MEDS: Simethicone 80 MG TAB.CHEW PO (03:16)
[2021-02-25 03:22] VITALS: BP 116/59; PULSE 84; RESP 18; TEMP 36.6; O2SAT 97
[2021-02-25 07:15] LABS: Glucose, Whole Blood 225 mg/dL (60-115)
[2021-02-25 07:16] VITALS: BP 140/64; PULSE 85; RESP 18; TEMP 36.2; O2SAT 98
[2021-02-25] MEDS: Insulin Lispro 100 UNIT/ML 3 ML VIAL SUBCUT ×2 (07:31→10:59)
[2021-02-25] MEDS: 0.9 % Sodium Chloride Flush 3 ML SYRINGE IVFLUSH (07:31)
[2021-02-25] MEDS: cilostazoL 100 MG TABLET PO (08:54)
[2021-02-25] MEDS: carvediloL 25 MG TABLET PO (08:54)
[2021-02-25] MEDS: Sucralfate 1 GM TABLET 2 GM PO (08:54)
[2021-02-25] MEDS: Furosemide 40 MG TABLET PO (08:55)
[2021-02-25 11:02] LABS: Glucose, Whole Blood 248 mg/dL (60-115)
[2021-02-25 11:18] VITALS: BP 143/64; PULSE 80; RESP 20; TEMP 36.1; O2SAT 97
--- NOTE | 2021-02-25 13:08 | MHC.CM.PN ---
IMM 02/25/21 Female 75 dx resp failure, DM. Discharge today to home with same day visit for SOC greg BARNETT. She requires education re DM. Her family is providing transportation.
--- NOTE | 2021-02-25 13:38 | W.MHC.F2F ---
Service Date Service Date: 02/25/21 Encounter Date of encounter: 02/25/21 Encounter: Patient admitted due to hypoglycemia and acute congestive heart failure Reasons for Services Signs and symptoms assessed: Sign and symptoms for hypoglycemia, congestive heart failure Reason for residential: CV/CP assess and/or care and diabetic teaching Homebound: Leaving the home is medically contraindicated at this time without the asist of a device and/or another person due th the listed conditions above and below. Reason homebound: weakness related to hospital stay Certification: Based on the above findings, I certify that this patient is confined to the home and needs intermittent residential care, physical therapy and/or speech therapy, or continues to need occupational therapy. The patient is under my care, and I have initiated the establishment of the plan of care. The patient will be followed by a physician who will periodically review the plan of care.
--- NOTE | 2021-02-25 13:43 | PM.DS ---
DS: Providers Provider Date of Service: 02/28/21 Date of admission: 02/20/21 01:01 Primary care physician: Marycarmen Quijano MD Consults: 02/20/21 06:35 Consult to Cardiology Routine Consulting Provider: Esteban Sexton Reason for consultation: chf exacerbation Has provider been notified: No 02/20/21 07:23 Consult to Nephrology Routine Consulting Provider: Bam Barragan Reason for consultation: ARLEY/CHF Has provider been notified: No 02/21/21 08:41 Consult to Gastroenterology Routine Consulting Provider: Mariaelena Morgan Reason for consultation: Iron deficiency anemia? Has provider been notified: No 02/21/21 09:39 Consult to Pulmonology Routine Consulting Provider: Sunshine Chong Reason for consultation: ACUTE HYPOXEMIC RESPIRATORY FAILURE ? RECENT COVID/QUESTION OF ILD Has provider been notified: No DS: Diagnosis Discharge Diagnosis (1) Respiratory failure with hypoxia: Status: Acute (2) CHF exacerbation: Status: Acute (3) Aortic stenosis: Status: Acute (4) Anemia: Status: Acute DS: Medications Discharge Medications Home Medications: Home Medications Medication Instructions Recorded Confirmed atorvastatin 40 mg PO BEDTIME 01/18/21 02/20/21 carvedilol 25 mg PO BID 01/18/21 02/20/21 cilostazol 100 mg PO BID 01/18/21 02/20/21 fluconazole 150 mg PO DAILY 01/18/21 02/20/21 linagliptin 5 mg PO DAILY 01/18/21 02/20/21 montelukast 10 mg PO BEDTIME 01/18/21 02/20/21 sucralfate 2 g PO DAILY 01/18/21 02/20/21 gabapentin 300 mg PO BEDTIME 02/20/21 02/20/21 insulin lispro 1 sliding scale dose SUBCUT TIDAC 02/20/21 02/20/21 Previous Rx's Medication Instructions Recorded Lantus Solostar U-100 Insulin 20 unit SUBCUT DAILY #0 ml 02/25/21 furosemide 40 mg PO DAILY #30 tab 02/25/21 mecobalamin (vitamin B12) 1,000 mcg SUBLINGUAL DAILY #30 tab 02/25/21 omeprazole 40 mg PO DAILY #30 cap 02/25/21 DS: Summary Hospital Course Hospital Course: History of presenting illness Chief Complaint: hypoglycemia Pt maori speaking and hx obtained with help of reservoir caretaker lorenzo ambrosio a 75 yo F with hx of recent covid infection in January, CKD, DM, HDL, GERD, HTN, who presents to the hospital for taking high units of insulin by mistake. Her daughter at beside reports that she came back from [place] today and by mistake took 50 units of lispro. Pt was asymptomatic but she was worried therefore brought her to the hospital. pt reports no dizziness, heache or change in vision., no neurological deficits. Pt reports shortness of breath, cough, lower extremity edema, Orhtopnea and pnd. She is complaining of increased gas in the abdomen, although denies n/v, no abd pain, and no diarrhea or constipation. No urinary symptoms. No fever of chills. Vitals on arrival HDS, no no significant abnormality . pt was noted to be 91% on RA> She was ambulated and dessated to 87% on RA. Labs are significant for WBC of 11.2, Hgb of 8.6 which is higher than her baseline, plts of 550, Cr of 1.44 with baseline around 1.0, glucose on arrival 62 , has a BNP of 36, UA negative. CXR shows persistent but improving diffuse bilateral airspace disease. no gross consilidation and no pleaural effuion Hospital course Patient admitted with Acute diastolic CHF with severe aortic stenosis patient treated with IV Lasix with good response his BNP trending down from 388 to 267 ,last BNP in January 22 was 134 Since patient currently is asymptomatic she is being discharged home on Coreg, by mouth Lasix, and recommended to follow up by [facility] cardiology for severe as outpatient. On admission noted to have elevated creatinine that normalized. Diabetes/hypoglycemia: Patient admitted with hypoglycemia, therefore dose of Lantus was reduced,patient noted to have elevated blood sugars in 200-300 range therefore placed back on home medications instructed to follow blood sugar closely and recommended diabetic diet. Chronic anemia, was likely contributing to hypoxia and CHF, workup consistent with B12 deficiency, status post 1 unit of packed RBC, hematocrit improved, started on B12 supplement Patient evaluated by Gastroenterology and underwent colonoscopy that showed internal hemorrhoids, moderate severe diverticulosis and 2 sessile polyps that were removed patient has been instructed to take high-fiber diet, avoid constipation take Protonix daily and follow-up with primary care physician and Gastroenterology to obtain result of H pylori and pathology. If anemia persists she has been recommended to undergo capsule endoscopy, upper endoscopy showed esophagitis, gastritis and duodenitis biopsies were taken follow pathology. 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 Neck supple no JVD. CVS regular rate rhythm, systolic murmur Respiratory lungs clear to auscultation, no respiratory distress, no rales Gastrointestinal abdomen soft, nontender, bowel sounds audible, no rigidity. Extremities no edema. Neuro nonfocal ,speech clear. Skin no rash DS: Data Data Completed and Pending Completed studies during hospitalization [Text1]: Procedures Insertion of Infusion Device into Superior Vena Cava, Percutaneous Approach (01/17/21) Introduction of Remdesivir Anti-infective into Peripheral Vein, Percutaneous Approach, [employer] (01/17/21) Performance of Urinary Filtration, Intermittent, Less than 6 Hours Per Day (01/17/21) Pending studies at discharge: Pending at discharge 02/24/21 13:34 Surgical [PTH] Routine Labs on day of discharge: Laboratory Results - last 24 hr 02/24/21 02/24/21 02/24/21 14:16 16:26 20:32 POC Glucose 166 H 163 H 213 H 02/24/21 02/25/21 02/25/21 23:54 07:02 10:54 POC Glucose 134 H 225 H 248 H Discharge Plan Discharge Patient Disposition: Home Health Service Discharge Diagnosis: Acute diastolic congestive heart failure Severe aortic stenosis Hypoglycemia B12 deficiency Anemia Acute hypoxic respiratory failure Referrals: Raghu HERNANDEZ [Outside] - 1 Week Marycarmen Quijano MD [Primary Care Provider] - 1 Week Discharge Medications: New furosemide 40 mg Tablet 40 mg PO DAILY Qty: 30 RF: 0 mecobalamin (vitamin B12) 1,000 mcg tablet,disintegrating 1,000 mcg sublingual DAILY Qty: 30 RF: 0 omeprazole 40 mg capsule,delayed release(DR/EC) 40 mg PO DAILY Qty: 30 RF: 0 Continued atorvastatin 40 mg Tablet 40 mg PO BEDTIME RF: 0 cilostazol 100 mg Tablet 100 mg PO BID RF: 0 carvedilol 25 mg Tablet 25 mg PO BID RF: 0 fluconazole 150 mg Tablet 150 mg PO DAILY RF: 0 sucralfate 1 gram Tablet 2 g PO DAILY RF: 0 montelukast 10 mg Tablet 10 mg PO BEDTIME RF: 0 linagliptin 5 mg Tablet 5 mg PO DAILY RF: 0 gabapentin 300 mg Capsule 300 mg PO BEDTIME RF: 0 insulin lispro 100 unit/mL Solution 1 sliding scale dose SUBCUT TIDAC RF: 0 Discontinued amlodipine 10 mg Tablet 10 mg PO DAILY RF: 0 hydralazine 50 mg Tablet 50 mg PO TID RF: 0 Lantus Solostar U-100 Insulin 100 unit/mL (3 mL) Insulin Pen 47 unit SUBCUT DAILY RF: 0 No Action [employer] SoloStar U-300 Insulin 300 unit/mL (1.5 mL) insulin pen 30 unit subcut DAILY 30 Days Qty: 4.5 RF: 3 Discharge Orders: Discharge Order (Routine); Ordered 02/25/21 Ordered By: Ciera García Diet: diabetic diet, low fat, low cholesterol and low salt diet Activity on Discharge: As tolerated Stand Alone Forms: Patient Portal Discharge page Care Plan Goals: Follow low-salt diet and diabetic diet for your congestive heart failure and diabetes, follow blood sugars closely You have mild gastritis, esophagitis and internal hemorrhoids, take Prilosec 40 mg daily, use high-fiber diet, avoid constipation You are on Diflucan follow-up with primary care physician for need for continued treatment with Diflucan. Health Concerns: Congestive heart failure, diabetes, aortic stenosis follow-up with cardiology for further surgical options for aortic stenosis Plan of Treatment: Follow-up with [facility] cardiology, primary care physician and Gastroenterology Assessment: As above Discharge Date/Time: 02/25/21 14:23
--- NOTE | 2021-02-25 14:17 | HO.POSTANES ---
Post Anesthesia Evaluation Post Anesthesia Evaluation Vital Signs: Vital Signs Temp Pulse Resp BP Pulse Ox 02/25/21 11:18 97.0 F 80 20 143/64 H 97 02/25/21 07:16 97.1 F 85 18 140/64 H 98 02/25/21 03:22 97.8 F 84 18 116/59 L 97 Anesthesia: Monitored Mental Status: Awake Pain Control: Satisfactory Nausea/Vomiting: None Hydration: Adequate Anesthesia-Related Issues: No Anes. Related Issues
== END 2021-02-25 14:23 | disposition home health service (06) | DRG 917 ==
LOC: HO.ED 21:32 → HO.EDOVER 02-20 01:46 → HO.IMC 02-20 02:36
PROVIDERS: Internal Medicine; Internal Medicine Gastroenterology; Physician Assistant; Admitting Provider Internal Medicine; Emergency Provider Emergency Medicine; PCP Family Medicine; Visit Provider Hospitalist
PROC: 0DB98ZX Excision of Duodenum, Via Natural or Artificial Opening Endoscopic, Diagnostic (ICD-10-PCS; principal; 2021-02-24 15:30)
DX: T38.3X1A Poisoning by insulin and oral hypoglycemic [antidiabetic] drugs, accidental (unintentional), initial encounter (principal); J96.01 Acute respiratory failure with hypoxia; I50.31 Acute diastolic (congestive) heart failure; I13.0 Hypertensive heart and chronic kidney disease with heart failure and stage 1 through stage 4 chronic kidney disease, or unspecified chronic kidney disease; N17.9 Acute kidney failure, unspecified; Z68.41 Body mass index [BMI] 40.0-44.9, adult; K21.9 Gastro-esophageal reflux disease without esophagitis; E11.649 Type 2 diabetes mellitus with hypoglycemia without coma; E11.22 Type 2 diabetes mellitus with diabetic chronic kidney disease; N18.30 Chronic kidney disease, stage 3 unspecified; Z20.822 Contact with and (suspected) exposure to COVID-19; I35.0 Nonrheumatic aortic (valve) stenosis; J84.10 Pulmonary fibrosis, unspecified; D50.9 Iron deficiency anemia, unspecified; E11.42 Type 2 diabetes mellitus with diabetic polyneuropathy; D51.3 Other dietary vitamin B12 deficiency anemia; E78.5 Hyperlipidemia, unspecified; B94.8 Sequelae of other specified infectious and parasitic diseases; Z88.5 Allergy status to narcotic agent; E66.01 Morbid (severe) obesity due to excess calories; Z88.6 Allergy status to analgesic agent; Z79.4 Long term (current) use of insulin; Z79.899 Other long term (current) drug therapy
CPT/HCPCS: 36415; 71045; 80048; 80076; 81003; 82607; 82728; 82746; 82947; 83036; 83540; 83880; 85014; 85018; 85025; 85027; 85610; 86850; 86900; 86901; 86923; 87635; 88305; 88342; 93306; 94640; 96374; 96375; 97161; 99285; J1940; P9016; Q9957

== ENCOUNTER 2021-02-24 01:02 | Outpatient (REF) | payer MEDICARE, SELFPAY | END 2021-02-24 01:03 | disposition home or self-care (01) | LOC: HO.MMNH1L 01:02 | PROVIDERS: Visit Provider Family Medicine | DX: Z13.89 Encounter for screening for other disorder (principal) ==

== ENCOUNTER → 2021-03-07 11:10 | Outpatient (BNVA) | payer MEDICARE, SELFPAY | PROVIDERS: PCP Family Medicine; Visit Provider Internal Medicine Endocrinology, Diabetes & Metabolism | DX: E11.21 Type 2 diabetes mellitus with diabetic nephropathy (principal); E11.22 Type 2 diabetes mellitus with diabetic chronic kidney disease; E11.42 Type 2 diabetes mellitus with diabetic polyneuropathy; I12.9 Hypertensive chronic kidney disease with stage 1 through stage 4 chronic kidney disease, or unspecified chronic kidney disease; N18.32 Chronic kidney disease, stage 3b; E78.5 Hyperlipidemia, unspecified; I25.10 Atherosclerotic heart disease of native coronary artery without angina pectoris; I73.9 Peripheral vascular disease, unspecified; K21.9 Gastro-esophageal reflux disease without esophagitis; Z98.51 Tubal ligation status; Z88.6 Allergy status to analgesic agent; Z88.5 Allergy status to narcotic agent; Z79.4 Long term (current) use of insulin; Z79.899 Other long term (current) drug therapy | CPT/HCPCS: 82947; 99212 ==

== ENCOUNTER 2021-03-20 14:32 | Outpatient (REF) | payer MEDICARE, SELFPAY ==
[2021-03-20 15:57] LABS: MANUAL DIFF FLAG NO
[2021-03-20 15:59] LABS: Basophils Absolute Auto 0.1 X10*3/uL (0.0-0.2); Basophils Percent Auto 0.6 % (0-2); Eosinophils Absolute Auto 0.3 X10*3/uL (0.0-0.4); Hemoglobin 11.5 g/dl (12.0-16.0); Imm Gran Abs Auto 0.01 X10*3/uL (0.00-0.03); Imm Gran Pct Auto 0.1 % (0.0-0.4); Lymphocytes Absolute Auto 2.3 X10*3/uL (1.2-4.9); Lymphocytes Percent Auto 29.1 % (20-40); Mean Corpuscular HGB Conc 31.9 g/dl (31.0-35.0); Mean Corpuscular Hemoglobin 24.8 pg (27.0-33.0); Mean Corpuscular Volume 77.8 fL (80-98); Mean Platelet Volume 9.4 fL (9.4-12.3); Monocytes Absolute Auto 0.7 X10*3/uL (0.1-1.2); Monocytes Percent Auto 8.3 % (2-11); Neutrophils Absolute Auto 4.6 X10*3/uL (2.0-8.3); Neutrophils Percent Auto 57.9 % (45-73); Platelet Count 436 X10*3/uL (160-400); Red Blood Count 4.63 X10*6/uL (4.20-5.50); Red Cell Distribution Width 16.2 % (11.0-16.0)
[2021-03-20 16:24] LABS: Alanine Aminotransferase 10 U/L (0-31); Albumin Level 3.7 g/dL (3.5-5.0); Alkaline Phosphatase 117 U/L (39-117); Anion Gap 13 (12-20); Aspartate Amino Transferase 18 U/L (5-31); Bilirubin Direct 0.2 mg/dL (0.0-0.5); Bilirubin Total 0.6 mg/dL (0.0-1.0); Blood Urea Nitrogen 16 mg/dL (9-16); Calcium 9.7 mg/dL (8.4-10.2); Carbon Dioxide 29 mmol/L (22-29); Chloride 105 mmol/L (96-108); Estimated Glomerular Filt Rate 43; Glucose Random 118 mg/dL (60-115); Potassium 3.5 mmol/L (3.3-5.1); Sodium 143 mmol/L (135-145); Total Protein 7.2 g/dL (6.5-8.0)
[2021-03-20 16:57] LABS: Erythrocyte Sedimentation Rate 51 MM/HR (0-20)
[2021-03-21 03:34] LABS: SARS COV2 IgG Positive (Negative)
== END 2021-03-20 14:33 | disposition home or self-care (01) ==
LOC: HO.LAB 14:32
PROVIDERS: PCP Family Medicine; Visit Provider Hospitalist
DX: J45.40 Moderate persistent asthma, uncomplicated (principal); G47.33 Obstructive sleep apnea (adult) (pediatric); B94.8 Sequelae of other specified infectious and parasitic diseases; I35.0 Nonrheumatic aortic (valve) stenosis; D64.89 Other specified anemias
CPT/HCPCS: 36415; 80048; 80076; 85025; 85652; 86769; 99212

== ENCOUNTER 2021-03-27 18:24 | Emergency (ER) | payer MEDICARE, SELFPAY ==
--- NOTE | 2021-03-27 | ECG_ITS ---
Test Reason : HIGH BP Blood Pressure : / mmHG Vent. Rate : 064 BPM Atrial Rate : 064 BPM P-R Int : 124 ms QRS Dur : 090 ms QT Int : 430 ms P-R-T Axes : 046 010 064 degrees QTc Int : 443 ms Normal sinus rhythm Normal ECG When compared to the previous EKG of No significant changes seen Referred By: Ryne Anderson Electronically Signed By:Kip Johnson
--- NOTE | ~2021-03-27 | XR_ITS ---
EXAMINATION: XR CHEST CLINICAL INFORMATION: Shortness of breath COMPARISON: 02/19/2021 TECHNIQUE: 2 views of the chest were obtained. FINDINGS: Overall improving aeration bilaterally with less predominantly interstitial infiltration. There are no major zones of airspace disease or pleural disease. Mild cardiomegaly without overt CHF. No ectopic air. No acute osseous abnormality. XR/XR chest 2V IMPRESSION: Overall significant improvement in the appearance the lungs as above. No acute superimposed process.
[2021-03-27 18:32] VITALS: BP 198/62; PULSE 74; RESP 18; TEMP 37; O2SAT 98; BMI 35.2
[2021-03-27 21:42] VITALS: BP 221/79; PULSE 75; RESP 17; TEMP 36.7; O2SAT 99
[2021-03-27 22:00] VITALS: BP 177/71; PULSE 65; RESP 15; TEMP 36.7; O2SAT 99
[2021-03-27 22:49] LABS: Glucose, Whole Blood 173 mg/dL (60-115)
[2021-03-27] MEDS: Acetaminophen 325 MG TABLET 975 MG PO (23:19)
[2021-03-27 23:32] VITALS: BP 186/65; PULSE 68; RESP 16; TEMP 36.7; O2SAT 98
[2021-03-27 23:48] LABS: MANUAL DIFF FLAG NO
--- NOTE | 2021-03-27 23:48 | ED_ITS ---
HPI - General Adult General Chief complaint: General Medical Stated complaint: HIGH BP Time Seen by Provider: 03/27/21 22:19 Source: patient and family (The ) Mode of arrival: ambulatory Limitations: language barrier (Algerian speaking only, aerial photograph interpreter used) History of Present Illness HPI narrative: 75-year-old female who presents emergency department for evaluation of elevated blood pressure, left upper back pain radiating to the waist, chest pain and epigastric pain. The patient states that she has chronic pain of her back. She states that over the last week she has developed a constant, tightness in her left upper and lower back which is worse with movement and 10/10 at its worst. She did not take any medications for this pain. She also states that she has occasional sharp stabbing pain in her chest with 2 episodes that occurred today. These episodes were brief and not related to her activity level. She also complains of mid epigastric discomfort, she describes as a gas pain and states she is burping frequently. She denied frequency, urgency or dysuria. She states that she took her blood pressure at around 4:00 p.m. and was elevated at 217/88 which is unusual for her therefore she came to the emergency department for evaluation was area Related Data Home Medications Medication Instructions Recorded Confirmed atorvastatin 40 mg PO BEDTIME 01/18/21 03/07/21 carvedilol 25 mg PO BID 01/18/21 03/07/21 cilostazol 100 mg PO BID 01/18/21 03/07/21 fluconazole 150 mg PO DAILY 01/18/21 03/07/21 montelukast 10 mg PO BEDTIME 01/18/21 03/07/21 sucralfate 2 g PO DAILY 01/18/21 03/07/21 gabapentin 300 mg PO BEDTIME 02/20/21 03/07/21 Previous Rx's Medication Instructions Recorded furosemide 40 mg PO DAILY #30 tab 02/25/21 mecobalamin (vitamin B12) 1,000 mcg SUBLINGUAL DAILY #30 tab 02/25/21 omeprazole 40 mg PO DAILY #30 cap 02/25/21 insulin glargine U-300 conc 300 35 unit SUBCUT DAILY 30 Days 03/07/21 unit/mL (1.5 mL) subcutaneous pen #3.501 ml insulin lispro 100 unit/mL 5 - 10 unit SUBCUT .4 times a day 03/07/21 subcutaneous pen 30 Days #15 ml linagliptin 5 mg tablet 5 mg PO DAILY 90 Days #90 tab 03/07/21 pen needle, diabetic 32 gauge x #400 ea 03/07/21 budesonide-formoterol HFA 160 2 puff INHALATION BID 30 Days 03/20/21 mcg-4.5 mcg/actuation aerosol #10.2 g inhaler mometasone-formoterol HFA 200 2 puff INHALATION Q12H 30 Days #13 03/21/21 mcg-5 mcg/actuation aerosol inhaler g Allergies Allergy/AdvReac Type Severity Reaction Status Date / Time ibuprofen [From MOTRIN] Allergy Intermediate RASH Verified 03/27/21 18:31 oxycodone [From PERCOCET] Allergy Intermediate ITCHING Verified 03/27/21 18:31 acetaminophen [Percocet] Allergy Unknown unknown Verified 03/27/21 18:31 Motrin Allergy Unknown high blood Verified 03/27/21 18:31 pressure Review of Systems Neurologic: Reports Abnormal speech present [facility] Past Medical History Medical History Aortic stenosis Asthma Chronic kidney disease CKD (chronic kidney disease) stage 3, GFR 30-59 ml/min Diabetes mellitus Diabetic nephropathy associated with type 2 diabetes mellitus Diabetic polyneuropathy associated with type 2 diabetes mellitus Dyslipidemia GERD (gastroesophageal reflux disease) Hypertension Infected 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 of skin 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 Morbid obesity JOSE (obstructive sleep apnea) 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 Surgical History History of breast lump/mass excision History of cholecystectomy History of tubal ligation Family History Family History Sister History of renal pelvis cancer Social History Social History Household Members: Family Housing: House Do you presently have visiting nurse or 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 services: 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) Alcohol intake: unknown Advance Directives: No Advance Directives Information Provided: No service: No Current occupational status: unemployed Gender identity: female Physical Exam Vital Signs: Vital Signs: Last Vital Signs Temp 98.1 F 06/24/21 23:32 Pulse 68 03/27/21 23:32 Resp 16 03/27/21 23:32 BP 186/65 H 03/27/21 23:32 Pulse Ox 98 03/27/21 23:32 Body Mass Index 35.2 Const: General: cooperative Orientation/consciousness: oriented to person and oriented to place Limitations: no limitations HENMT: Head: Yes normal to inspection, Yes normocephalic and Yes atraumatic Ears: external ears normal General nose exam: Normal external nose present Face and sinus: Yes normal facial exam Mouth: Normal oral and palatal mucosa present Throat: Yes posterior oropharynx normal Eyes: Periorbital: periorbital findings normal Eyelids: Yes eyelids normal Conjunctivae: conjunctivae normal Sclerae: sclerae normal Corneas: corneas normal Pupils: Equal, round and reactive pupils present Direct Ophthalmoscopy: normal light reflex Neck: Neck: Yes full ROM, Yes no lymphadenopathy, Yes no meningeal signs, Yes trachea midline and Yes supple Chest: Chest palpation & inspection: normal inspection of the chest and normal palpation of entire chest wall Resp: Effort & Inspection: normal respiratory effort and able to speak in complete sentences Auscultation: clear to auscultation bilaterally Cardio: Rate: regular rate Rhythm: regular rhythm Heart sounds: S1 normal heart sound present, S2 normal heart sound present and no murmurs GI: Inspection: Yes normal to inspection Palpation (GI): Soft to palpation, nontender, no guarding, not rigid and No hepatosplenomegaly present : General: Yes no CVA tenderness Back/Spine/Pelvis: Back: no CVA tenderness Cervical Spine: normal cervical lordosis Thoracic/Lumbar Spine: thoracic and lumbar spine normal to inspection and paraspinal muscle tenderness on the left in the lower thoracic, in the upper thoracic, in the mid lumbar and in the lower lumbar Skin: Lesions: no lesions Rashes: no rashes Wounds: no wounds Neuro: General: oriented to person, oriented to place and no meningeal signs Cranial nerves: Yes Equal, round and reactive pupils present Cognition (Neuro): normal cognition Speech: Abnormal speech present Motor exam (neuro): 5/5 motor strength present throughout Extrem: General: Yes normal to inspection and Yes full ROM Psych: Appearance: well kempt Mental Status: mental status grossly normal Speech and movement: Normal speech and movement present Affect: normal affect Attitude: cooperative Thought process: Normal thought process present Thought content: Normal thought content present Course Course Course Narrative: 75-year-old female who presents emergency department for evaluation of multiple complaints including left lower back pain, chest pain, epigastric pain, and elevated blood pressure. Vital signs did reveal elevated blood pressure of 177/71 otherwise were unremarkable. The patient's physical examination did reveal tenderness palpation of her right thoracic and lumbar paraspinal muscles. I ordered a laboratory evaluation on the patient. Patient's pain will be treated with Tylenol 1000 mg orally. 0112: The patient's high sensitivity troponin was detectable but not elevated. Patient's laboratory evaluation was otherwise unremarkable. Chest x-ray was normal. Twelve EKG was normal. Patient is feeling better after receiving the oral Tylenol. The patient most likely has musculoskeletal strain of her thoracic and lumbar spine which caused her to have an elevated blood pressure and I did discuss this with her. Patient was advised to take extra-strength Tylenol for pain. The patient was given verbal and printed instructions prior to discharge. The patient was advised to follow-up with their PCP in 2 days and to return to the emergency department if their symptoms get worse or if they develop any new symptoms that are concerning to them Medical Decision Making Lab Data Result diagrams: 03/27/21 23:43 03/27/21 23:43 Labs: Lab Results 03/27/21 03/27/21 03/27/21 Range/Units 22:46 23:43 23:43 WBC 9.4 (4.8-10.8) X10*3/uL RBC 4.71 (4.20-5.50) X10*6/uL Hgb 11.6 L (12.0-16.0) g/dl Hct 36.8 L (37-47) % MCV 78.1 L (80-98) fL MCH 24.6 L (27.0-33.0) pg MCHC 31.5 (31.0-35.0) g/dl RDW 15.9 (11.0-16.0) % Plt Count 311 D (160-400) X10*3/uL MPV 9.5 (9.4-12.3) fL Immature Gran % (Auto) 0.2 (0.0-0.4) % Neut % (Auto) 67.1 (45-73) % Lymph % (Auto) 22.0 (20-40) % Yates % (Auto) 6.9 (2-11) % Eos % (Auto) 3.3 (0-4) % Baso % (Auto) 0.5 (0-2) % Lymph # (Auto) 2.1 (1.2-4.9) X10*3/uL Yates # (Auto) 0.7 (0.1-1.2) X10*3/uL Eos # (Auto) 0.3 (0.0-0.4) X10*3/uL Baso # (Auto) 0.1 (0.0-0.2) X10*3/uL Abs Immat Gran (auto) 0.02 (0.00-0.03) X10*3/uL Absolute Neuts (auto) 6.3 (2.0-8.3) X10*3/uL Absolute Nucleated RBC 0.000 (0.0-0.012) X10*3/uL Nucleated RBC % (auto) 0.0 (0.0-0.2) /100WBC Sodium 142 (135-145) mmol/L Potassium 3.2 L (3.3-5.1) mmol/L Chloride 106 (96-108) mmol/L Carbon Dioxide 26 (22-29) mmol/L Anion Gap 13 (12-20) BUN 16 (9-16) mg/dL Creatinine 1.02 (0.5-1.4) mg/dL Estim Creat Clear Calc 45.1 Estimated GFR 53 POC Glucose 173 H (60-115) mg/dL Random Glucose 190 H D (60-115) mg/dL Calcium 9.4 (8.4-10.2) mg/dL Total Bilirubin 0.5 (0.0-1.0) mg/dL AST 16 (5-31) U/L ALT 10 (0-31) U/L Alkaline Phosphatase 106 (39-117) U/L Troponin I High Sens (<3.5-17.0) ng/L B-Natriuretic Peptide (<100) pg/mL Total Protein 6.9 (6.5-8.0) g/dL Albumin 3.6 (3.5-5.0) g/dL Lipase 39 (8-78) U/L 03/27/21 03/27/21 Range/Units 23:43 23:43 WBC (4.8-10.8) X10*3/uL RBC (4.20-5.50) X10*6/uL Hgb (12.0-16.0) g/dl Hct (37-47) % MCV (80-98) fL MCH (27.0-33.0) pg MCHC (31.0-35.0) g/dl RDW (11.0-16.0) % Plt Count (160-400) X10*3/uL MPV (9.4-12.3) fL Immature Gran % (Auto) (0.0-0.4) % Neut % (Auto) (45-73) % Lymph % (Auto) (20-40) % Yates % (Auto) (2-11) % Eos % (Auto) (0-4) % Baso % (Auto) (0-2) % Lymph # (Auto) (1.2-4.9) X10*3/uL Yates # (Auto) (0.1-1.2) X10*3/uL Eos # (Auto) (0.0-0.4) X10*3/uL Baso # (Auto) (0.0-0.2) X10*3/uL Abs Immat Gran (auto) (0.00-0.03) X10*3/uL Absolute Neuts (auto) (2.0-8.3) X10*3/uL Absolute Nucleated RBC (0.0-0.012) X10*3/uL Nucleated RBC % (auto) (0.0-0.2) /100WBC Sodium (135-145) mmol/L Potassium (3.3-5.1) mmol/L Chloride (96-108) mmol/L Carbon Dioxide (22-29) mmol/L Anion Gap (12-20) BUN (9-16) mg/dL Creatinine (0.5-1.4) mg/dL Estim Creat Clear Calc Estimated GFR POC Glucose (60-115) mg/dL Random Glucose (60-115) mg/dL Calcium (8.4-10.2) mg/dL Total Bilirubin (0.0-1.0) mg/dL AST (5-31) U/L ALT (0-31) U/L Alkaline Phosphatase (39-117) U/L Troponin I High Sens 13.7 (<3.5-17.0) ng/L B-Natriuretic Peptide 222 H (<100) pg/mL Total Protein (6.5-8.0) g/dL Albumin (3.5-5.0) g/dL Lipase (8-78) U/L Discharge Plan Discharge Clinical Impression: Lumbar back sprain Qualifiers: Encounter type: initial encounter Qualified Code(s): S33.5XXA - Sprain of ligaments of lumbar spine, initial encounter Patient Disposition: Home, Self-Care Instructions: Low Back Strain (ED) Additional Instructions: Your laboratory evaluation was unremarkable. Your 12 EKG was normal. Your chest x-ray was unremarkable. Your back pain is consistent with strain of the muscles. I believe that this pain caused her blood pressure to get high. Take Tylenol (acetaminophen) 500 mg pills, 2 pills every 4 to 6 hours as needed for pain. Check your blood pressure in the morning on Wednesday, Wednesday and Wednesday for 2 weeks. Write these blood pressure readings down and show them to your doctor in 2 weeks to determine if you need any change in your blood pressure medications. Do not check your blood pressure more than 1 time in the morning, 3 times a week. Follow-up with your doctor in 2 days. Please return to the emergency department if your symptoms get worse or if you develop any symptoms that are concerning to you. Prescriptions: No Action Dulera 200-5 mcg/actuation HFA aerosol inhaler 2 puff inhalation Q12H 30 Days Qty: 13 RF: 11 atorvastatin 40 mg Tablet 40 mg PO BEDTIME RF: 0 cilostazol 100 mg Tablet 100 mg PO BID RF: 0 carvedilol 25 mg Tablet 25 mg PO BID RF: 0 fluconazole 150 mg Tablet 150 mg PO DAILY RF: 0 sucralfate 1 gram Tablet 2 g PO DAILY RF: 0 montelukast 10 mg Tablet 10 mg PO BEDTIME RF: 0 gabapentin 300 mg Capsule 300 mg PO BEDTIME RF: 0 furosemide 40 mg Tablet 40 mg PO DAILY Qty: 30 RF: 0 mecobalamin (vitamin B12) 1,000 mcg tablet,disintegrating 1,000 mcg sublingual DAILY Qty: 30 RF: 0 omeprazole 40 mg capsule,delayed release(DR/EC) 40 mg PO DAILY Qty: 30 RF: 0 Toujeo SoloStar U-300 Insulin 300 unit/mL (1.5 mL) insulin pen 35 unit subcut DAILY 30 Days Qty: 3.501 RF: 3 linagliptin 5 mg tablet 5 mg PO DAILY 90 Days Qty: 90 RF: 1 insulin lispro [Humalog KwikPen Insulin] 100 unit/mL insulin pen 5 - 10 unit subcut .4 times a day 30 Days Qty: 15 RF: 3 (DME) pen needle, diabetic [BD Sia 2nd Gen Pen Needle] 32 gauge x 5/32 needle See Rx Instructions .MEDSUPPLY Qty: 400 RF: 4 budesonide-formoterol [Symbicort] 160-4.5 mcg/actuation HFA aerosol inhaler 2 puff inhalation BID 30 Days Qty: 10.2 RF: 11
[2021-03-27 23:50] LABS: Basophils Absolute Auto 0.1 X10*3/uL (0.0-0.2); Basophils Percent Auto 0.5 % (0-2); Eosinophils Absolute Auto 0.3 X10*3/uL (0.0-0.4); Eosinophils Percent Auto 3.3 % (0-4); Hematocrit 36.8 % (37-47); Hemoglobin 11.6 g/dl (12.0-16.0); Imm Gran Abs Auto 0.02 X10*3/uL (0.00-0.03); Imm Gran Pct Auto 0.2 % (0.0-0.4); Lymphocytes Absolute Auto 2.1 X10*3/uL (1.2-4.9); Mean Corpuscular HGB Conc 31.5 g/dl (31.0-35.0); Mean Corpuscular Hemoglobin 24.6 pg (27.0-33.0); Mean Corpuscular Volume 78.1 fL (80-98); Mean Platelet Volume 9.5 fL (9.4-12.3); Monocytes Absolute Auto 0.7 X10*3/uL (0.1-1.2); Monocytes Percent Auto 6.9 % (2-11); Neutrophils Absolute Auto 6.3 X10*3/uL (2.0-8.3); Neutrophils Percent Auto 67.1 % (45-73); Platelet Count 311 X10*3/uL (160-400); Red Blood Count 4.71 X10*6/uL (4.20-5.50); Red Cell Distribution Width 15.9 % (11.0-16.0); White Blood Count 9.4 X10*3/uL (4.8-10.8)
[2021-03-28 00:14] LABS: Alanine Aminotransferase 10 U/L (0-31); Albumin Level 3.6 g/dL (3.5-5.0); Alkaline Phosphatase 106 U/L (39-117); Anion Gap 13 (12-20); Aspartate Amino Transferase 16 U/L (5-31); Bilirubin Total 0.5 mg/dL (0.0-1.0); Blood Urea Nitrogen 16 mg/dL (9-16); Calcium 9.4 mg/dL (8.4-10.2); Carbon Dioxide 26 mmol/L (22-29); Chloride 106 mmol/L (96-108); Creatinine Clr Calc Pharmacy 45.1; Estimated Glomerular Filt Rate 53; Glucose Random 190 mg/dL (60-115); Lipase 39 U/L (8-78); Potassium 3.2 mmol/L (3.3-5.1); Sodium 142 mmol/L (135-145); Total Protein 6.9 g/dL (6.5-8.0)
[2021-03-28 00:16] LABS: B Type Natriuretic Peptide 222 pg/mL (<100); Troponin-I High Sensitivity 13.7 ng/L (<3.5-17.0)
== END 2021-03-28 01:35 | disposition home or self-care (01) ==
PROVIDERS: Emergency Provider Emergency Medicine Emergency Medical Services; PCP Family Medicine
DX: S33.5XXA Sprain of ligaments of lumbar spine, initial encounter (principal); R10.13 Epigastric pain; R06.02 Shortness of breath; I12.9 Hypertensive chronic kidney disease with stage 1 through stage 4 chronic kidney disease, or unspecified chronic kidney disease; N18.30 Chronic kidney disease, stage 3 unspecified; E11.22 Type 2 diabetes mellitus with diabetic chronic kidney disease; J45.909 Unspecified asthma, uncomplicated; Z79.4 Long term (current) use of insulin; Z79.899 Other long term (current) drug therapy; X58.XXXA Exposure to other specified factors, initial encounter; Y93.9 Activity, unspecified; Y92.9 Unspecified place or not applicable; Y99.9 Unspecified external cause status
CPT/HCPCS: 36415; 71046; 80053; 82947; 83690; 83880; 84484; 85025; 93005; 99284

== ENCOUNTER 2021-04-04 10:16 | Outpatient (REF) | payer MEDICARE, SELFPAY ==
[2021-04-04 16:45] LABS: CT PCR NOT DETECTED (Not Detect.); NG PCR NOT DETECTED (Not Detect.)
[2021-04-05 12:00] LABS: BV Int Neg Control Negative (Negative); BV Int Pos Control Positive (Positive)
== END 2021-04-04 10:17 | disposition home or self-care (01) ==
LOC: HO.LAB 10:16
PROVIDERS: PCP Family Medicine; Visit Provider Advanced Practice Midwife
DX: Z11.3 Encounter for screening for infections with a predominantly sexual mode of transmission (principal); R10.2 Pelvic and perineal pain; N76.0 Acute vaginitis; E66.01 Morbid (severe) obesity due to excess calories; Z68.37 Body mass index [BMI] 37.0-37.9, adult; Z71.3 Dietary counseling and surveillance
CPT/HCPCS: 87480; 87491; 87510; 87591; 87660; 99212

== ENCOUNTER → 2021-04-16 13:06 | Outpatient (REF) | payer MEDICARE, SELFPAY | LOC: HO.SL 13:06 | PROVIDERS: PCP Family Medicine; Visit Provider Hospitalist | DX: G47.33 Obstructive sleep apnea (adult) (pediatric) (principal) | CPT/HCPCS: 95806 ==

== ENCOUNTER 2021-04-23 14:30 | Outpatient (REF) | payer MEDICARE, SELFPAY ==
--- NOTE | ~2021-04-23 | US_ITS ---
EXAMINATION: ULTRASOUND PELVIS AND TRANSVAGINAL CLINICAL INFORMATION: Pelvic and perineal pain. COMPARISON: None TECHNIQUE: Transabdominal and transvaginal imaging of pelvis is performed. FINDINGS: The exam is limited due to body habitus and patient immobility. The uterus is anteverted and anteflexed measuring 4.2 cm in length, 2.0 cm in AP and 2.9 cm in transverse dimension. Endometrial thickness is 0.36 cm. No focal lesion seen. There is small amount of free fluid within the endometrial canal. Both ovaries are not visualized. There is no free fluid in the cul-de-sac. US/US pelvic and transvaginal IMPRESSION: Limited exam with unremarkable uterus. Minimal free fluid in the endometrial canal. Ovaries are not seen.
== END 2021-04-23 14:31 | disposition home or self-care (01) ==
LOC: HO.US 14:30
PROVIDERS: Visit Provider Advanced Practice Midwife
DX: R10.2 Pelvic and perineal pain (principal)
CPT/HCPCS: 76830; 76856

== ENCOUNTER 2021-04-29 14:45 | Outpatient (REF) | payer MEDICARE, SELFPAY ==
--- NOTE | ~2021-04-29 | MM_ITS ---
EXAMINATION: MM SCREENING DIGITAL BREAST TOMOSYNTHESIS, BILATERAL CLINICAL INFORMATION: Screening. Asymptomatic. The lifetime risk of breast cancer based on the Tyrer-Cuzick Model is 3%. COMPARISON: Mammography: 04/23/2020, 04/18/2019, 04/12/2018 TECHNIQUE: Digital breast tomosynthesis is performed in both the craniocaudal and mediolateral oblique views along with computer-aided detection (CAD). Synthesized 2D images are generated from the tomosynthesis. Additional right CC view is provided. FINDINGS: There are scattered areas of fibroglandular density (ACR BI-RADS breast composition Category b). There are no significant masses, abnormal calcifications, or other abnormalities. There are scattered diffuse predominantly ductal secretory and some vascular calcifications. There are also some scattered punctate round calcifications in the breasts. There are no significant changes from prior exam. The axilla and skin contours are unremarkable. MM/MM tomosynthesis screening BI IMPRESSION: No mammographic evidence of malignancy. ASSESSMENT: BI-RADS 2: Benign RECOMMENDATION: Routine annual mammography screening. This patient's information was entered into a reminder system with a target due date for their next mammogram.
== END 2021-04-29 14:46 | disposition home or self-care (01) ==
LOC: HO.MAMMO 14:45
PROVIDERS: Visit Provider Family Medicine
DX: Z12.31 Encounter for screening mammogram for malignant neoplasm of breast (principal)
CPT/HCPCS: 77063; 77067

== ENCOUNTER → 2021-05-07 12:56 | Outpatient (BNVA) | payer MEDICARE, SELFPAY | PROVIDERS: PCP Family Medicine; Visit Provider Advanced Practice Midwife | CPT/HCPCS: Q3014 ==

== ENCOUNTER 2021-05-16 12:58 | Outpatient (REF) | payer MEDICARE, SELFPAY ==
--- NOTE | ~2021-05-16 | MR_ITS ---
EXAMINATION: MR LUMBAR SPINE WITHOUT CONTRAST CLINICAL INFORMATION: Lower back pain. Bilateral leg pain, numbness, weakness, toe numbness. COMPARISON: Most recent lumbar spine MRI dated 10/22/2016. TECHNIQUE: MRI of the lumbar spine was obtained using routine sequences without contrast. FINDINGS: VERTEBRAL BODIES AND PARASPINAL STRUCTURES: The lumbar lordosis is maintained. Minimal grade 1 anterolisthesis of L5 on S1, unchanged when compared to the prior examination. No loss of vertebral body height. Mild multilevel loss of intervertebral disc height with disc desiccation, most prominent at L5-S1 and not significantly changed. No marrow edema to suggest acute osseous injury. Stable, partially visualized right midpole renal lesion. The previously seen left renal lesion not well seen on the current examination. CONUS MEDULLARIS AND CAUDA EQUINA: Normal, terminating at the level of L1. SPINAL LEVELS: T12-L1: No significant disc bulge. No central canal or neural foraminal stenosis. L1-L2: No significant disc bulge. No central canal or neural foraminal stenosis. Prominent endplate osteophytes. L2-L3: No significant disc bulge. Mild bilateral facet arthropathy. No central canal or neural foraminal stenosis. L3-L4: Minimal disc bulge with bilateral facet arthropathy. No significant central canal or neural foraminal stenosis. L4-L5: Broad-based disc bulge with a superimposed right extraforaminal disc protrusion which contacts the exiting right L4 nerve root, similar when compared to the prior examination. Bilateral facet arthropathy and thickening of ligamentum flavum with mild central canal stenosis which encroaches upon the traversing bilateral L5 nerve roots, slightly increased in prominence. Mild bilateral neural foraminal stenosis, unchanged. L5-S1: No significant disc bulge. Prominent bilateral facet arthropathy with mild bilateral neural foraminal stenosis, unchanged. MR/MR lumbar spine wo con IMPRESSION: 1. Redemonstration of a broad-based disc bulge at L4-L5 with a right extraforaminal disc protrusion which contacts the exiting right L4 nerve root, unchanged. Bilateral facet arthropathy and thickening of ligamentum flavum with mild central canal stenosis encroaching upon the traversing bilateral L5 nerve roots which has slightly progressed when compared to the prior examination. Mild bilateral neural foraminal stenosis is unchanged. 2. Minimal grade 1 anterolisthesis of L5 on S1, unchanged. Bilateral facet arthropathy and mild bilateral neural foraminal stenosis is unchanged. 3. Stable, partially visualized right renal lesion.
== END 2021-05-16 12:59 | disposition home or self-care (01) ==
LOC: HO.MRI 12:58
PROVIDERS: Visit Provider Family Medicine
DX: M54.5 Low back pain (principal)
CPT/HCPCS: 72148

== ENCOUNTER → 2021-06-05 13:46 | Outpatient (BNVA) | payer MEDICARE, SELFPAY | PROVIDERS: PCP Family Medicine; Visit Provider Internal Medicine | DX: E11.9 Type 2 diabetes mellitus without complications (principal); I10 Essential (primary) hypertension; E78.5 Hyperlipidemia, unspecified; E55.9 Vitamin D deficiency, unspecified | CPT/HCPCS: 82947; 83036; 99212 ==

== ENCOUNTER 2021-06-18 13:01 | Emergency (ER) | payer MEDICARE, SELFPAY ==
--- NOTE | ~2021-06-18 | CT_ITS ---
EXAMINATION: CT HEAD WITHOUT CONTRAST CLINICAL INFORMATION: Headache. Resolved hypertension. COMPARISON: Previous head CT scans most recent February 2019 and brain MRI November 2019 TECHNIQUE: Contiguous axial imaging was performed from the skull base to vertex without intravenous administration of contrast. This CT examination was performed using dose optimization techniques as appropriate, variously including the following: *Automated exposure control *Adjustment of mA and/or kV according to patient size (this includes techniques or standardized protocols for targeted exams where dose is matched to indication/reason for exam; i.e. extremities or head) *Use of iterative reconstruction technique DLP: 662 mGy-cm FINDINGS: There is no evidence of an extra-axial collection. There is no evidence of intra-axial or extra-axial hemorrhage. The ventricles and extra-axial CSF spaces are appropriate. There is mild nonspecific periventricular white matter disease. No mass, mass effect or infarct is seen. There is an empty sella and the sella turcica appears prominent. This is similar to previous exams. Visualized paranasal sinuses, mastoid air cells and middle ears are clear. No skull fracture or bone lesion is seen. CT/CT head/brain wo con IMPRESSION: No acute findings.
--- NOTE | 2021-06-18 13:12 | PC.NURSE ---
waiting for translator interpreter to triage
[2021-06-18 13:36] VITALS: BP 147/82; PULSE 71; RESP 18; TEMP 36.8; O2SAT 98; BMI 50.0
--- NOTE | 2021-06-18 14:10 | ED.GENADULT ---
HPI - General Adult General Chief complaint: General Medical Stated complaint: high bp Time Seen by Provider: 06/18/21 13:48 Source: patient Mode of arrival: ambulatory Limitations: no limitations History of Present Illness HPI narrative: Patient seen in the ED for elevated high blood pressure and headache. Patient states history of high blood pressure. Patient's blood pressure last night was 206 systolic. Patient blood pressure at her PCP this morning was 209 the patient was sent to the ED for evaluation for elevated blood pressure and headache. Patient presently states only slight headache. Patient denies any slurred speech, facial droop, paralysis of extremities, chest pain, shortness of breath, or loss of vision. Patient denies any recent head trauma. Related Data Home Medications Medication Instructions Recorded Confirmed atorvastatin 40 mg tablet 40 mg PO BEDTIME 01/18/21 06/05/21 carvedilol 25 mg tablet 25 mg PO BID 01/18/21 06/05/21 cilostazol 100 mg tablet 100 mg PO BID 01/18/21 06/05/21 fluconazole 150 mg tablet 150 mg PO DAILY 01/18/21 06/05/21 montelukast 10 mg tablet 10 mg PO BEDTIME 01/18/21 06/05/21 sucralfate 1 gram tablet 2 g PO DAILY 01/18/21 06/05/21 gabapentin 300 mg capsule 300 mg PO BEDTIME 02/20/21 06/05/21 insulin glargine U-300 conc 300 40 unit SUBCUT DAILY ml 06/05/21 unit/mL (1.5 mL) subcutaneous pen (TouDraftstero SoloStar U-300 Insulin) Previous Rx's Medication Instructions Recorded furosemide 40 mg tablet 40 mg PO DAILY #30 tab 02/25/21 mecobalamin (vitamin B12) 1,000 1,000 mcg SUBLINGUAL DAILY #30 tab 02/25/21 mcg disintegrating tablet,sublingual omeprazole 40 mg capsule,delayed 40 mg PO DAILY #30 cap 02/25/21 release linagliptin 5 mg tablet 5 mg PO DAILY 90 Days #90 tab 03/07/21 pen needle, diabetic 32 gauge x #400 ea 03/07/21 (BD Sia 2nd Gen Pen Needle) budesonide-formoterol HFA 160 2 puff INHALATION BID 30 Days 03/20/21 mcg-4.5 mcg/actuation aerosol #10.2 g inhaler (Symbicort) mometasone-formoterol HFA 200 2 puff INHALATION Q12H 30 Days #13 03/21/21 mcg-5 mcg/actuation aerosol g inhaler (Dulera) FreeStyle Lancets 28 gauge #300 ea NS 04/02/21 (lancets) FreeStyle Lite Meter #1 ea NS 04/02/21 (blood-glucose meter) Novolog Flexpen U-100 Insulin 100 5 - 10 unit SUBCUT TID 30 Days #15 04/02/21 unit/mL (3 mL) subcutaneous ml NS (insulin aspart U-100) blood sugar diagnostic (FreeStyle #300 ea 04/02/21 Lite Strips) blood sugar diagnostic (Accu-Chek 1 strip MISCELLANEOUS TID 30 Days 04/03/21 Maryann Plus test strp) #100 strip blood-glucose meter (Accu-Chek 1 ea MISCELLANEOUS . 3 times a day 04/03/21 Maryann Plus Meter) 30 Days #1 ea lancets (Accu-Chek Softclix 1 ea MISCELLANEOUS TID 30 Days 04/03/21 Lancets) #100 ea Allergies Allergy/AdvReac Type Severity Reaction Status Date / Time ibuprofen [From MOTRIN] Allergy Intermediate RASH Verified 06/18/21 13:35 oxycodone [From PERCOCET] Allergy Intermediate ITCHING Verified 06/18/21 13:35 acetaminophen [Percocet] Allergy Unknown unknown Verified 06/18/21 13:35 Motrin Allergy Unknown high blood Verified 06/18/21 13:35 pressure PMFSH Past Medical History Medical History Aortic stenosis Asthma Chronic kidney disease CKD (chronic kidney disease) stage 3, GFR 30-59 ml/min Diabetes mellitus Diabetic nephropathy associated with type 2 diabetes mellitus Diabetic polyneuropathy associated with type 2 diabetes mellitus Dyslipidemia GERD (gastroesophageal reflux disease) HLD (hyperlipidemia) Hypertension 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 Morbid obesity JOSE (obstructive sleep apnea) 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 T2DM (type 2 diabetes mellitus) Thalamic pain syndrome Vitamin D deficiency Surgical History History of breast lump/mass excision History of cholecystectomy History of tubal ligation Family History Family History Sister History of renal pelvis cancer Father Suicide Mother Lung disease Diabetes mellitus Social History Social History Household Members: Family Housing: House Do you presently have visiting nurse or other home services: Yes (hydrostatic tubing tester) Alcohol intake: unknown Advance Directives: No Advance Directives Information Provided: No service: No Current occupational status: unemployed Gender identity: Female Physical Exam Vital Signs: Vital Signs: Last Vital Signs Temp 98.3 F 06/18/21 18:00 Pulse 60 06/18/21 19:20 Resp 16 06/18/21 19:20 BP 141/45 H 06/18/21 19:20 Pulse Ox 99 06/18/21 19:20 Body Mass Index 50.0 Const: General: cooperative, healthy appearing, comfortable, no acute distress, well developed, alert, awake and Physically active Orientation/consciousness: patient oriented x3 HENMT: Head: Yes normal to inspection, Yes No palpable skull fracture present, Yes normocephalic, Yes atraumatic and No abrasion Eyes: General: appearance normal, both eyes and all related structures Neck: Neck: Yes normal visual inspection, Yes full ROM, Yes no lymphadenopathy, Yes no meningeal signs, Yes trachea midline, Yes supple and No tender Chest: Chest palpation & inspection: normal inspection of the chest and normal palpation of entire chest wall Resp: Effort & Inspection: normal respiratory effort and able to speak in complete sentences Auscultation: clear to auscultation bilaterally Cardio: Jugular venous distension: no JVD Heart sounds: S1 normal heart sound present and S2 normal heart sound present GI: Inspection: Yes normal to inspection and No abdominal wall ecchymosis Palpation (GI): Soft to palpation, not firm, nontender, no guarding and not rigid : General: No CVA tenderness and Yes no CVA tenderness Back/Spine/Pelvis: Back: no CVA tenderness, No CVA tenderness and No back tenderness Skin: General skin exam: no rashes or lesions noted and elasticity normal Neuro: Other: negative facial droop. negative slurred speech. negative pronator drift. Finger to nose and rapid hand movements intact. negative rhomberg. General: patient oriented x3, gait normal, no meningeal signs, CN's II-XI intact bilaterally and decrease sensation to monofilament Extrem: Other: Lower extremities negative for swelling, calf tenderness, or pitting edema General: Yes normal to inspection and Yes full ROM Psych: Appearance: grossly normal, well kempt and not disheveled NIH Stroke Scale Level of Consciousness: Alert Level of Consciousness Questions: Answers both questions correctly Level of Consciousness Commands: Performs both tasks correctly Best Gaze: Normal Visual: No visual loss Facial Palsy: Normal Motor Arm (Right): No drift Motor Arm (Left): No drift Motor Leg (Right): No drift Motor Leg (Left): No drift Limb Ataxia: Absent Sensory: Normal Best Language: No aphasia Dysarthia: Normal Extinction and Inattention: No abnormality Score: 0 Course Course Course Narrative: Will do medical evaluation including EKG, troponin, head CT scan per negative for neuro deficit. Reevaluation(s) Reevaluation #1: Patient two troponins are negative. Blood pressure stable in the ED. Negative for any neuro deficits. Kidney function normal. Labs are at baseline. EKG negative for stemI. head CT scan normal. Patient is not in any distress. Headache resolved in the ED Time: 18:41 Medical Decision Making MDM Narrative Medical decision making narrative: Headache. High blood pressure Lab Data Result diagrams: 06/18/21 14:40 06/18/21 14:40 Labs: Lab Results 06/18/21 06/18/21 06/18/21 Range/Units 14:40 14:40 14:40 WBC 9.6 (4.8-10.8) X10*3/uL RBC 5.39 (4.20-5.50) X10*6/uL Hgb 12.6 (12.0-16.0) g/dl Hct 39.5 (37-47) % MCV 73.3 L (80-98) fL MCH 23.4 L (27.0-33.0) pg MCHC 31.9 (31.0-35.0) g/dl RDW 16.2 H (11.0-16.0) % Plt Count 355 (160-400) X10*3/uL MPV 9.3 L (9.4-12.3) fL Immature Gran % (Auto) 0.4 (0.0-0.4) % Neut % (Auto) 66.4 (45-73) % Lymph % (Auto) 23.1 (20-40) % [place] % (Auto) 7.0 (2-11) % Eos % (Auto) 2.5 (0-4) % Baso % (Auto) 0.6 (0-2) % Lymph # (Auto) 2.2 (1.2-4.9) X10*3/uL [place] # (Auto) 0.7 (0.1-1.2) X10*3/uL Eos # (Auto) 0.2 (0.0-0.4) X10*3/uL Baso # (Auto) 0.1 (0.0-0.2) X10*3/uL Abs Immat Gran (auto) 0.04 H (0.00-0.03) X10*3/uL Absolute Neuts (auto) 6.4 (2.0-8.3) X10*3/uL Absolute Nucleated RBC 0.000 (0.0-0.012) X10*3/uL Nucleated RBC % (auto) 0.0 (0.0-0.2) /100WBC PT (9.9-13.0) SEC INR (0.9-1.1) APTT (24.1-38.0) SEC Sodium 142 (135-145) mmol/L Potassium 3.9 D (3.3-5.1) mmol/L Chloride 101 (96-108) mmol/L Carbon Dioxide 33 H (22-29) mmol/L Anion Gap 12 (12-20) BUN 23 H (9-16) mg/dL Creatinine 1.38 (0.5-1.4) mg/dL Estim Creat Clear Calc 29.5 Estimated GFR 37 POC Glucose (60-115) mg/dL Random Glucose 182 H (60-115) mg/dL Calcium 9.8 (8.4-10.2) mg/dL Total Bilirubin 0.7 (0.0-1.0) mg/dL AST 16 (5-31) U/L ALT 10 (0-31) U/L Alkaline Phosphatase 130 H D (39-117) U/L Troponin I High Sens 10.0 (<3.5-17.0) ng/L Total Protein 7.3 (6.5-8.0) g/dL Albumin 3.9 (3.5-5.0) g/dL COVID-19 ([facility]ANCA) (Negative) COVID-19 Clin Com 06/18/21 06/18/21 06/18/21 Range/Units 14:40 14:40 17:11 WBC (4.8-10.8) X10*3/uL RBC (4.20-5.50) X10*6/uL Hgb (12.0-16.0) g/dl Hct (37-47) % MCV (80-98) fL MCH (27.0-33.0) pg MCHC (31.0-35.0) g/dl RDW (11.0-16.0) % Plt Count (160-400) X10*3/uL MPV (9.4-12.3) fL Immature Gran % (Auto) (0.0-0.4) % Neut % (Auto) (45-73) % Lymph % (Auto) (20-40) % [place] % (Auto) (2-11) % Eos % (Auto) (0-4) % Baso % (Auto) (0-2) % Lymph # (Auto) (1.2-4.9) X10*3/uL [place] # (Auto) (0.1-1.2) X10*3/uL Eos # (Auto) (0.0-0.4) X10*3/uL Baso # (Auto) (0.0-0.2) X10*3/uL Abs Immat Gran (auto) (0.00-0.03) X10*3/uL Absolute Neuts (auto) (2.0-8.3) X10*3/uL Absolute Nucleated RBC (0.0-0.012) X10*3/uL Nucleated RBC % (auto) (0.0-0.2) /100WBC PT 11.7 (9.9-13.0) SEC INR 1.0 (0.9-1.1) APTT 41.6 H (24.1-38.0) SEC Sodium (135-145) mmol/L Potassium (3.3-5.1) mmol/L Chloride (96-108) mmol/L Carbon Dioxide (22-29) mmol/L Anion Gap (12-20) BUN (9-16) mg/dL Creatinine (0.5-1.4) mg/dL Estim Creat Clear Calc Estimated GFR POC Glucose 163 H (60-115) mg/dL Random Glucose (60-115) mg/dL Calcium (8.4-10.2) mg/dL Total Bilirubin (0.0-1.0) mg/dL AST (5-31) U/L ALT (0-31) U/L Alkaline Phosphatase (39-117) U/L Troponin I High Sens (<3.5-17.0) ng/L Total Protein (6.5-8.0) g/dL Albumin (3.5-5.0) g/dL COVID-19 ([facility]ANCA) Negative (Negative) COVID-19 Clin Com See Note 06/18/21 Range/Units 17:26 WBC (4.8-10.8) X10*3/uL RBC (4.20-5.50) X10*6/uL Hgb (12.0-16.0) g/dl Hct (37-47) % MCV (80-98) fL MCH (27.0-33.0) pg MCHC (31.0-35.0) g/dl RDW (11.0-16.0) % Plt Count (160-400) X10*3/uL MPV (9.4-12.3) fL Immature Gran % (Auto) (0.0-0.4) % Neut % (Auto) (45-73) % Lymph % (Auto) (20-40) % [place] % (Auto) (2-11) % Eos % (Auto) (0-4) % Baso % (Auto) (0-2) % Lymph # (Auto) (1.2-4.9) X10*3/uL [place] # (Auto) (0.1-1.2) X10*3/uL Eos # (Auto) (0.0-0.4) X10*3/uL Baso # (Auto) (0.0-0.2) X10*3/uL Abs Immat Gran (auto) (0.00-0.03) X10*3/uL Absolute Neuts (auto) (2.0-8.3) X10*3/uL Absolute Nucleated RBC (0.0-0.012) X10*3/uL Nucleated RBC % (auto) (0.0-0.2) /100WBC PT (9.9-13.0) SEC INR (0.9-1.1) APTT (24.1-38.0) SEC Sodium (135-145) mmol/L Potassium (3.3-5.1) mmol/L Chloride (96-108) mmol/L Carbon Dioxide (22-29) mmol/L Anion Gap (12-20) BUN (9-16) mg/dL Creatinine (0.5-1.4) mg/dL Estim Creat Clear Calc Estimated GFR POC Glucose (60-115) mg/dL Random Glucose (60-115) mg/dL Calcium (8.4-10.2) mg/dL Total Bilirubin (0.0-1.0) mg/dL AST (5-31) U/L ALT (0-31) U/L Alkaline Phosphatase (39-117) U/L Troponin I High Sens 10.6 (<3.5-17.0) ng/L Total Protein (6.5-8.0) g/dL Albumin (3.5-5.0) g/dL COVID-19 ([facility]) (Negative) COVID-19 Clin Com ECG Data Interpretation: Normal sinus rhythm. Ventricular rate 68. Pr interval 124. QRS 90. QTC 444-STEMI. Discharge Plan Discharge Clinical Impression: BP (high blood pressure), Headache Patient Disposition: Home, Self-Care Instructions: Chronic Hypertension (ED), General Headache (ED) Additional Instructions: [place] an?lisis de naila, electrocardiograma y tomograf?a computarizada de la joel resultaron negativos para ataque card?aco, accidente cerebrovascular, hemorragia cerebral y disfunci?n renal. Regrese al servicio de urgencias por cualquier dificultad para hablar, p?rdida de la visi?n, par?lisis de las extremidades, dec?bito facial, p?rdida de la visi?n, dificultad para hablar, dolor en el pecho, dificultad para respirar o cualquier otro s?ntoma preocupante. Prescriptions: No Action Dulera 200-5 mcg/actuation HFA aerosol inhaler 2 puff inhalation Q12H 30 Days Qty: 13 RF: 11 insulin aspart U-100 [Novolog Flexpen U-100 Insulin] 100 unit/mL (3 mL) insulin pen 5 - 10 unit subcut TID 30 Days Qty: 15 RF: 4 (DME) blood-glucose meter [FreeStyle Lite Meter] Kit See Rx Instructions miscellaneous .MEDSUPPLY Qty: 1 RF: 0 (DME) FreeStyle Lite Strips Strip See Rx Instructions .MEDSUPPLY Qty: 300 RF: 3 (DME) lancets [FreeStyle Lancets] 28 gauge misc See Rx Instructions .MEDSUPPLY Qty: 300 RF: 2 blood sugar diagnostic [Accu-Chek Maryann Plus test strp] Strip 1 strip miscellaneous TID 30 Days Qty: 100 RF: 6 blood-glucose meter [Accu-Chek Maryann Plus Meter] Misc 1 ea miscellaneous . 3 times a day 30 Days Qty: 1 RF: 0 lancets [Accu-Chek Softclix Lancets] Misc 1 ea miscellaneous TID 30 Days Qty: 100 RF: 11 atorvastatin 40 mg Tablet 40 mg PO BEDTIME RF: 0 cilostazol 100 mg Tablet 100 mg PO BID RF: 0 carvedilol 25 mg Tablet 25 mg PO BID RF: 0 fluconazole 150 mg Tablet 150 mg PO DAILY RF: 0 sucralfate 1 gram Tablet 2 g PO DAILY RF: 0 montelukast 10 mg Tablet 10 mg PO BEDTIME RF: 0 gabapentin 300 mg Capsule 300 mg PO BEDTIME RF: 0 furosemide 40 mg Tablet 40 mg PO DAILY Qty: 30 RF: 0 mecobalamin (vitamin B12) 1,000 mcg tablet,disintegrating 1,000 mcg sublingual DAILY Qty: 30 RF: 0 omeprazole 40 mg capsule,delayed release(DR/EC) 40 mg PO DAILY Qty: 30 RF: 0 linagliptin 5 mg tablet 5 mg PO DAILY 90 Days Qty: 90 RF: 1 (DME) pen needle, diabetic [BD Sia 2nd Gen Pen Needle] 32 gauge x 5/32 needle See Rx Instructions .MEDSUPPLY Qty: 400 RF: 4 Toujeo SoloStar U-300 Insulin 300 unit/mL (1.5 mL) insulin pen 40 unit subcut DAILY RF: 0 budesonide-formoterol [Symbicort] 160-4.5 mcg/actuation HFA aerosol inhaler 2 puff inhalation BID 30 Days Qty: 10.2 RF: 11 Referrals: Marycarmen Quijano MD [Primary Care Provider] - 2 days (Hypertension headache.) Interventions: ED Discharge Assessment Last Done: 06/18/21 19:29 Discharge Date/Time: 06/18/21 19:32 Print Language: Syriac
--- NOTE | 2021-06-18 14:16 | ECG_ITS ---
Test Reason : HYPERTENSION Blood Pressure : / mmHG Vent. Rate : 068 BPM Atrial Rate : 068 BPM P-R Int : 124 ms QRS Dur : 090 ms QT Int : 418 ms P-R-T Axes : 043 006 123 degrees QTc Int : 444 ms Normal sinus rhythm T wave abnormality, consider lateral ischemia Abnormal ECG When compared with ECG of 27-MAR-2021 21:33, T wave inversion now evident in Lateral leads Referred By: Bruce Sheldon Electronically Signed By:PRASANNA BARRERA
[2021-06-18] MEDS: Acetaminophen 325 MG TABLET 650 MG PO (14:31)
[2021-06-18 14:45] LABS: MANUAL DIFF FLAG NO
[2021-06-18 14:49] LABS: Basophils Absolute Auto 0.1 X10*3/uL (0.0-0.2); Basophils Percent Auto 0.6 % (0-2); Eosinophils Absolute Auto 0.2 X10*3/uL (0.0-0.4); Eosinophils Percent Auto 2.5 % (0-4); Hematocrit 39.5 % (37-47); Hemoglobin 12.6 g/dl (12.0-16.0); Imm Gran Abs Auto 0.04 X10*3/uL (0.00-0.03); Imm Gran Pct Auto 0.4 % (0.0-0.4); Lymphocytes Absolute Auto 2.2 X10*3/uL (1.2-4.9); Lymphocytes Percent Auto 23.1 % (20-40); Mean Corpuscular HGB Conc 31.9 g/dl (31.0-35.0); Mean Corpuscular Hemoglobin 23.4 pg (27.0-33.0); Mean Corpuscular Volume 73.3 fL (80-98); Mean Platelet Volume 9.3 fL (9.4-12.3); Monocytes Absolute Auto 0.7 X10*3/uL (0.1-1.2); Neutrophils Absolute Auto 6.4 X10*3/uL (2.0-8.3); Neutrophils Percent Auto 66.4 % (45-73); Platelet Count 355 X10*3/uL (160-400); Red Blood Count 5.39 X10*6/uL (4.20-5.50); Red Cell Distribution Width 16.2 % (11.0-16.0); White Blood Count 9.6 X10*3/uL (4.8-10.8)
[2021-06-18 14:56] LABS: Prothrombin Time 11.7 SEC (9.9-13.0)
[2021-06-18 14:58] LABS: Partial Thromboplastin Time 41.6 SEC (24.1-38.0)
[2021-06-18 15:03] LABS: COVID-19 Test Negative (Negative); IDNOW Serial# 9DD0AD1C
[2021-06-18 15:13] VITALS: BP 144/51; PULSE 67; RESP 17; TEMP 36.6; O2SAT 96
[2021-06-18 15:17] LABS: Alanine Aminotransferase 10 U/L (0-31); Albumin Level 3.9 g/dL (3.5-5.0); Alkaline Phosphatase 130 U/L (39-117); Anion Gap 12 (12-20); Aspartate Amino Transferase 16 U/L (5-31); Bilirubin Total 0.7 mg/dL (0.0-1.0); Blood Urea Nitrogen 23 mg/dL (9-16); Calcium 9.8 mg/dL (8.4-10.2); Carbon Dioxide 33 mmol/L (22-29); Chloride 101 mmol/L (96-108); Creatinine Clr Calc Pharmacy 29.5; Estimated Glomerular Filt Rate 37; Glucose Random 182 mg/dL (60-115); Potassium 3.9 mmol/L (3.3-5.1); Sodium 142 mmol/L (135-145); Total Protein 7.3 g/dL (6.5-8.0)
[2021-06-18 16:00] VITALS: BP 166/60; PULSE 66; RESP 18; TEMP 36.6; O2SAT 96
[2021-06-18 17:15] LABS: Glucose, Whole Blood 163 mg/dL (60-115)
[2021-06-18 17:57] LABS: Troponin-I High Sensitivity 10.6 ng/L (<3.5-17.0)
[2021-06-18 18:00] VITALS: BP 169/55; PULSE 64; RESP 16; TEMP 36.8; O2SAT 97
[2021-06-18 19:20] VITALS: BP 141/45; PULSE 60; RESP 16; O2SAT 99
--- NOTE | 2021-06-18 19:24 | PC.NURSE ---
Pt sitting upright in bed, reports no pain. Liberian speaking only, bioinformatics programmer called for DC paperwork. Pt ambulating to the bathroom with her cane and a steady gait.
== END 2021-06-18 19:32 | disposition home or self-care (01) ==
PROVIDERS: Physician Assistant; Emergency Provider Emergency Medicine Emergency Medical Services; PCP Family Medicine
DX: I10 Essential (primary) hypertension (principal); R51.9 Headache, unspecified; E11.9 Type 2 diabetes mellitus without complications; Z79.899 Other long term (current) drug therapy; Z79.4 Long term (current) use of insulin; Z20.822 Contact with and (suspected) exposure to COVID-19
CPT/HCPCS: 36415; 70450; 80053; 82947; 84484; 85025; 85610; 85730; 87635; 93005; 99284

== ENCOUNTER → 2021-06-23 13:03 | Outpatient (BNVA) | payer MEDICARE, SELFPAY | PROVIDERS: PCP Family Medicine; Visit Provider Hospitalist | DX: G47.33 Obstructive sleep apnea (adult) (pediatric) (principal); B94.8 Sequelae of other specified infectious and parasitic diseases; I35.0 Nonrheumatic aortic (valve) stenosis; D64.9 Anemia, unspecified; J45.40 Moderate persistent asthma, uncomplicated; J96.91 Respiratory failure, unspecified with hypoxia; E66.01 Morbid (severe) obesity due to excess calories; E11.22 Type 2 diabetes mellitus with diabetic chronic kidney disease; E11.42 Type 2 diabetes mellitus with diabetic polyneuropathy; E11.21 Type 2 diabetes mellitus with diabetic nephropathy; I12.9 Hypertensive chronic kidney disease with stage 1 through stage 4 chronic kidney disease, or unspecified chronic kidney disease; N18.30 Chronic kidney disease, stage 3 unspecified; N17.9 Acute kidney failure, unspecified; E78.5 Hyperlipidemia, unspecified; E55.9 Vitamin D deficiency, unspecified; Z68.33 Body mass index [BMI] 33.0-33.9, adult; Z87.891 Personal history of nicotine dependence; Z88.6 Allergy status to analgesic agent; Z88.8 Allergy status to other drugs, medicaments and biological substances; Z79.4 Long term (current) use of insulin | CPT/HCPCS: 99212 ==

== ENCOUNTER 2021-06-24 11:47 | Outpatient (REF) | payer MEDICARE, SELFPAY ==
--- NOTE | ~2021-06-24 | XR_ITS ---
EXAMINATION: XR CHEST CLINICAL INFORMATION: Anemia COMPARISON: Previous chest x-ray most recent March 2021 TECHNIQUE: 2 views of the chest were obtained. FINDINGS: The cardiac silhouette is slightly enlarged. There is pulmonary venous redistribution and increased hilar markings questionable for mild pulmonary edema. The lungs are otherwise clear. There is no pleural effusion or pneumothorax. There are degenerative changes of the spine. XR/XR chest 2V IMPRESSION: Enlarged cardiac silhouette and question pulmonary venous redistribution/mild pulmonary edema.
== END 2021-06-24 11:48 | disposition home or self-care (01) ==
LOC: HO.XRAY 11:47
PROVIDERS: PCP Family Medicine; Visit Provider Hospitalist
DX: D64.9 Anemia, unspecified (principal)
CPT/HCPCS: 71046

== ENCOUNTER 2021-07-03 13:17 | Emergency (ER) | payer MEDICARE, SELFPAY ==
--- NOTE | ~2021-07-03 | CT_ITS ---
EXAMINATION: CT ABDOMEN AND PELVIS WITHOUT CONTRAST CLINICAL INFORMATION: Lower abdominal pain. Question colitis. COMPARISON: Previous CT of the abdomen and pelvis November 2020 and renal ultrasound January 2021 and pelvic ultrasound April 2021 TECHNIQUE: Multidetector volumetric imaging was performed from the superior aspect of the liver through the pubic symphysis. Sagittal and coronal reformatted images were obtained on the technologist's workstation. This CT examination was performed using dose optimization techniques as appropriate, variously including the following: *Automated exposure control *Adjustment of mA and/or kV according to patient size (this includes techniques or standardized protocols for targeted exams where dose is matched to indication/reason for exam; i.e. extremities or head) *Use of iterative reconstruction technique DLP: 976 mGy-cm FINDINGS: LUNG BASES: The visualized lung bases are clear. There is coronary artery and aortic valve calcification. LIVER, GALLBLADDER, AND BILIARY TREE: The liver is normal in size, shape, and attenuation. No focal hepatic lesion is seen. The gallbladder is been removed. There is no intrahepatic biliary duct dilatation. The common bile duct is dilated measuring 1.3 cm. This is similar to previous exam and may be normal postcholecystectomy. PANCREAS: Unremarkable. SPLEEN: Unremarkable. ADRENAL GLANDS: Unremarkable. KIDNEYS AND URETERS: The kidneys are normal in size, shape, and attenuation. No hydronephrosis, hydroureter, or calculi seen. There is a small 5 mm low-attenuation area in the lower pole right kidney with peripheral calcification, question representing a small cyst with wall calcification. BLADDER: Unremarkable. GASTROINTESTINAL TRACT: There is severe diverticulosis of the colon. No evidence of diverticulitis or colitis is seen. The small and large bowel is otherwise unremarkable. The stomach is unremarkable. The appendix is unremarkable ABDOMINAL WALL: No significant hernia is appreciated. LYMPH NODES: Normal. VASCULAR: There is evidence of atherosclerotic disease. PELVIC VISCERA: Unremarkable. OSSEOUS STRUCTURES: There are degenerative changes of the lumbar spine. There is mild anterior subluxation of L5 with respect to S1 probably due to facet arthritis. CT/CT abdomen pelvis wo con IMPRESSION: Severe diverticulosis of the colon. No evidence of diverticulitis or colitis. Stable probable small right renal cyst with wall calcification or milk of calcium. Post cholecystectomy. Mild dilatation of the common bile duct similar to previous exams. This may be normal cholecystectomy.
--- NOTE | ~2021-07-03 | CT_ITS ---
EXAMINATION: CT HEAD WITHOUT CONTRAST CLINICAL INFORMATION: Headache. COMPARISON: None TECHNIQUE: Contiguous axial imaging was performed from the skull base to vertex without intravenous administration of contrast. This CT examination was performed using dose optimization techniques as appropriate, variously including the following: *Automated exposure control *Adjustment of mA and/or kV according to patient size (this includes techniques or standardized protocols for targeted exams where dose is matched to indication/reason for exam; i.e. extremities or head) *Use of iterative reconstruction technique DLP: 691 mGy-cm FINDINGS: There is no evidence of acute intracranial hemorrhage or territorial infarction. No abnormal mass effect or midline shift is seen. Lopez to white matter differentiation is well preserved. No extra-axial fluid collections are identified. The ventricles are normal in size. There is no abnormal attenuation within the brain parenchyma. The osseous structures and soft tissues are normal. The mastoid air cells and visualized portions of the paranasal sinuses are well aerated. CT/CT head/brain wo con IMPRESSION: No acute intracranial process seen.
[2021-07-03 13:40] VITALS: BP 150/67; BP 193/67; PULSE 59; PULSE 70; RESP 18; TEMP 36.2; O2SAT 96; O2SAT 99; BMI 38.2
--- NOTE | 2021-07-03 13:53 | ED_ITS ---
HPI - General Adult General Chief complaint: General Medical Stated complaint: HIGH BP W/HEADACHE Time Seen by Provider: 07/03/21 13:43 Source: patient Mode of arrival: ambulatory Limitations: no limitations History of Present Illness HPI narrative: 76-year-old female with past medical history of hypertension, hypertension, diabetes, presents to ED for resolved hypertension/headache and dysuria with slight abdominal pain. Patient states around 12:00 she routinely checked her blood pressure and was systolic of 204 and then she had a headache. Patient states she then took a blood pressure medication and headache and the high blood pressure improved. Patient denies any chest pain, shortness of breath, slurred speech, loss of vision, paralysis of extremities, facial droop, or dizziness. Patient's secondary complaint is lower abdominal pain with dysuria. Related Data Home Medications Medication Instructions Recorded Confirmed atorvastatin 40 mg tablet 40 mg PO BEDTIME 01/18/21 06/05/21 carvedilol 25 mg tablet 25 mg PO BID 01/18/21 06/05/21 cilostazol 100 mg tablet 100 mg PO BID 01/18/21 06/05/21 fluconazole 150 mg tablet 150 mg PO DAILY 01/18/21 06/05/21 montelukast 10 mg tablet 10 mg PO BEDTIME 01/18/21 06/05/21 sucralfate 1 gram tablet 2 g PO DAILY 01/18/21 06/05/21 gabapentin 300 mg capsule 300 mg PO BEDTIME 02/20/21 06/05/21 insulin glargine U-300 conc 300 40 unit SUBCUT DAILY ml 06/05/21 unit/mL (1.5 mL) subcutaneous pen (Marcinutayler SoloStar U-300 Insulin) Previous Rx's Medication Instructions Recorded furosemide 40 mg tablet 40 mg PO DAILY #30 tab 02/25/21 mecobalamin (vitamin B12) 1,000 1,000 mcg SUBLINGUAL DAILY #30 tab 02/25/21 mcg disintegrating tablet,sublingual omeprazole 40 mg capsule,delayed 40 mg PO DAILY #30 cap 02/25/21 release linagliptin 5 mg tablet 5 mg PO DAILY 90 Days #90 tab 03/07/21 pen needle, diabetic 32 gauge x #400 ea 03/07/21 (BD Sia 2nd Gen Pen Needle) budesonide-formoterol HFA 160 2 puff INHALATION BID 30 Days 03/20/21 mcg-4.5 mcg/actuation aerosol #10.2 g inhaler (Symbicort) mometasone-formoterol HFA 200 2 puff INHALATION Q12H 30 Days #13 03/21/21 mcg-5 mcg/actuation aerosol g inhaler (Dulera) FreeStyle Lancets 28 gauge #300 ea NS 04/02/21 (lancets) FreeStyle Lite Meter #1 ea NS 04/02/21 (blood-glucose meter) Novolog Flexpen U-100 Insulin 100 5 - 10 unit SUBCUT TID 30 Days #15 04/02/21 unit/mL (3 mL) subcutaneous ml NS (insulin aspart U-100) blood sugar diagnostic (FreeStyle #300 ea 04/02/21 Lite Strips) blood sugar diagnostic (Accu-Chek 1 strip MISCELLANEOUS TID 30 Days 04/03/21 Maryann Plus test strp) #100 strip blood-glucose meter (Accu-Chek 1 ea MISCELLANEOUS . 3 times a day 04/03/21 Maryann Plus Meter) 30 Days #1 ea lancets (Accu-Chek Softclix 1 ea MISCELLANEOUS TID 30 Days 04/03/21 Lancets) #100 ea Allergies Allergy/AdvReac Type Severity Reaction Status Date / Time acetaminophen [Percocet] Allergy Intermediate unknown Verified 06/23/21 13:09 ibuprofen [From MOTRIN] Allergy Intermediate RASH Verified 06/23/21 13:09 Motrin Allergy Intermediate high blood Verified 06/23/21 13:09 pressure oxycodone [From PERCOCET] Allergy Intermediate ITCHING Verified 06/23/21 13:09 Review of Systems Review of Systems: Yes all other systems are reviewed and are negative Constitutional: Constitutional: Reports as per HPI, Reports no additional constitutional complaints and Reports headache(s) (Resolved) Eyes: Eyes: Reports as per HPI and Reports no additional eye complaints ENT: Reports system reviewed and no additional complaints, except as documented, Reports as per HPI and Reports headache(s) (Resolved) Cardiovascular: Cardiovascular: Reports as per HPI and Reports no additional cardiovascular complaints Respiratory: Respiratory: Reports as per HPI and Reports no additional respiratory complaints Gastrointestinal: Gastrointestinal: Reports as per HPI and Reports no additional gastrointestinal complaints Genitourinary: Genitourinary: Reports no additional female genitourinary complaints, Reports as per HPI and Reports dysuria Musculoskeletal: Musculoskeletal: Reports no additional musculoskeletal comp laints and Reports as per HPI Neurologic: Reports system reviewed and no additional complaints, except as documented, Reports as per HPI and Reports headache(s) (Resolved) Psychiatric: Psychiatric: Reports no additional psychiatric complaints and Reports as per HPI [facility] Past Medical History Medical History Aortic stenosis Asthma Chronic kidney disease CKD (chronic kidney disease) stage 3, GFR 30-59 ml/min Diabetes mellitus Diabetic nephropathy associated with type 2 diabetes mellitus Diabetic polyneuropathy associated with type 2 diabetes mellitus Dyslipidemia GERD (gastroesophageal reflux disease) HLD (hyperlipidemia) Hypertension Infected 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 of 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 Morbid obesity JOSE (obstructive sleep apnea) 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 T2DM (type 2 diabetes mellitus) Thalamic pain syndrome Vitamin D deficiency Surgical History History of breast lump/mass excision History of cholecystectomy History of tubal ligation Family History Family History Sister History of renal pelvis cancer Father Suicide Mother Lung disease Diabetes mellitus Social History Social History (Updated 06/23/21 @ 13:10 by SEFERINO Veliz) Household Members: Family Housing: House 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) Alcohol intake: never Patient Tobacco Use Status: Former Tobacco user Tobacco use type: Cigarette Years Smoked: 5 years Use of substances other than those prescribed or required for medical reasons: No Advance Directives: No Advance Directives Information Provided: Yes service: No Current occupational status: unemployed Gender identity: Female Physical Exam Vital Signs: Vital Signs: Last Vital Signs Temp 97.2 F 07/03/21 13:40 Pulse 59 07/03/21 13:40 Resp 18 07/03/21 13:40 BP 150/67 H 07/03/21 13:40 Pulse Ox 96 07/03/21 13:40 Body Mass Index 38.2 Const: General: cooperative, healthy appearing, comfortable, no acute distress, well developed, alert and awake; No Physically active Orientation/consciousness: patient oriented x3 HENMT: Head: Yes normal to inspection, Yes No palpable skull fracture present, Yes normocephalic, Yes atraumatic and No abrasion Eyes: General: appearance normal, both eyes and all related structures Neck: Neck: Yes normal visual inspection, Yes full ROM, Yes no lymphadenopathy, Yes no meningeal signs, Yes trachea midline, Yes supple and No tender Chest: Chest palpation & inspection: normal inspection of the chest and normal palpation of entire chest wall Resp: Effort & Inspection: normal respiratory effort and able to speak in complete sentences Auscultation: clear to auscultation bilaterally Cardio: Jugular venous distension: no JVD Heart sounds: S1 normal heart sound present and S2 normal heart sound present GI: Inspection: Yes normal to inspection and No abdominal wall ecchymosis Palpation (GI): Soft to palpation, not firm, nontender, no guarding and not rigid : General: No CVA tenderness and Yes no CVA tenderness Back/Spine/Pelvis: Back: no CVA tenderness, No CVA tenderness, No ecchymosis and No back tenderness Skin: General skin exam: no rashes or lesions noted and elasticity normal Neuro: Other: Negative slurred speech. Negative facial droop. Under extremity concern for influenza. Cihans-zs-hhvy rapid hand movement intact. Negative Romberg. General: patient oriented x3, gait normal, no meningeal signs and CN's II-XI intact bilaterally Cranial nerves: Yes CN's II-XII intact bilaterally Extrem: General: Yes normal to inspection and Yes full ROM Psych: Appearance: grossly normal, well kempt and not disheveled Course Course Course Narrative: Presently patient denies any headache or any cardiac neural complaints. Patient main complaint is just dysuria. Due to systolic blood pressure of 204 at 00:00 o'clock will do labs, EKG. UA ordered. Reevaluation(s) Reevaluation #1: Patient EKG negative STEMI. First troponin 10. Labs are normal. UA negative for UTI. Will send for dry CT scan due to GFR 39 to rule out any colitis. And after IV contrast due to GFR 39. Patient denies any distress. Time: 15:50 Reevaluation #2: Patient's 2nd troponin negative. Abdominal CT scan came back normal. Patient is safe for discharge. Patient is not in any distress. Patient no longer states any abdominal discomfort. negative neuro deficit. NIH score is zero Time: 18:59 Medical Decision Making [facility] Narrative Medical decision making narrative: Resolved hypertension headache. Lab Data Result diagrams: 07/03/21 14:44 07/03/21 14:44 Labs: Lab Results 07/03/21 07/03/21 07/03/21 Range/Units 14:44 14:44 14:44 WBC 12.3 H (4.8-10.8) X10*3/uL RBC 5.28 (4.20-5.50) X10*6/uL Hgb 12.3 (12.0-16.0) g/dl Hct 38.9 (37-47) % MCV 73.7 L (80-98) fL MCH 23.3 L (27.0-33.0) pg MCHC 31.6 (31.0-35.0) g/dl RDW 16.2 H (11.0-16.0) % Plt Count 364 (160-400) X10*3/uL MPV 8.9 L (9.4-12.3) fL Immature Gran % (Auto) 0.3 (0.0-0.4) % Neut % (Auto) 75.6 H (45-73) % Lymph % (Auto) 16.2 L (20-40) % Hardy % (Auto) 5.6 (2-11) % Eos % (Auto) 1.7 (0-4) % Baso % (Auto) 0.6 (0-2) % Lymph # (Auto) 2.0 (1.2-4.9) X10*3/uL Hardy # (Auto) 0.7 (0.1-1.2) X10*3/uL Eos # (Auto) 0.2 (0.0-0.4) X10*3/uL Baso # (Auto) 0.1 (0.0-0.2) X10*3/uL Abs Immat Gran (auto) 0.04 H (0.00-0.03) X10*3/uL Absolute Neuts (auto) 9.3 H (2.0-8.3) X10*3/uL Absolute Nucleated RBC 0.000 (0.0-0.012) X10*3/uL Nucleated RBC % (auto) 0.0 (0.0-0.2) /100WBC Sodium 143 (135-145) mmol/L Potassium 4.4 (3.3-5.1) mmol/L Chloride 104 (96-108) mmol/L Carbon Dioxide 32 H (22-29) mmol/L Anion Gap 11 L (12-20) BUN 23 H (9-16) mg/dL Creatinine 1.31 (0.5-1.4) mg/dL Estim Creat Clear Calc 36.2 Estimated GFR 39 Random Glucose 118 H (60-115) mg/dL Calcium 9.8 (8.4-10.2) mg/dL Total Bilirubin 0.3 (0.0-1.0) mg/dL AST 15 (5-31) U/L ALT 13 (0-31) U/L Alkaline Phosphatase 135 H (39-117) U/L Troponin I High Sens 10.1 (<3.5-17.0) ng/L Total Protein 7.3 (6.5-8.0) g/dL Albumin 3.8 (3.5-5.0) g/dL Urine Color Urine Appearance Urine pH (5.0-8.0) Ur Specific [place] (1.005-1.025) Urine Protein (NEG-TRACE) MG/DL Urine Glucose (UA) (NEG) MG/DL Urine Ketones (NEG) MG/DL Urine Blood (NEG) Urine Nitrite (NEG) Ur Leukocyte Esterase (NEG) Urine RBC (0) /HPF Urine WBC (0-4) /HPF Ur Squamous Epith Cells /LPF Urine Bacteria /LPF Urine Mucus /LPF 07/03/21 07/03/21 Range/Units 14:44 17:47 WBC (4.8-10.8) X10*3/uL RBC (4.20-5.50) X10*6/uL Hgb (12.0-16.0) g/dl Hct (37-47) % MCV (80-98) fL MCH (27.0-33.0) pg MCHC (31.0-35.0) g/dl RDW (11.0-16.0) % Plt Count (160-400) X10*3/uL MPV (9.4-12.3) fL Immature Gran % (Auto) (0.0-0.4) % Neut % (Auto) (45-73) % Lymph % (Auto) (20-40) % Hardy % (Auto) (2-11) % Eos % (Auto) (0-4) % Baso % (Auto) (0-2) % Lymph # (Auto) (1.2-4.9) X10*3/uL Hardy # (Auto) (0.1-1.2) X10*3/uL Eos # (Auto) (0.0-0.4) X10*3/uL Baso # (Auto) (0.0-0.2) X10*3/uL Abs Immat Gran (auto) (0.00-0.03) X10*3/uL Absolute Neuts (auto) (2.0-8.3) X10*3/uL Absolute Nucleated RBC (0.0-0.012) X10*3/uL Nucleated RBC % (auto) (0.0-0.2) /100WBC Sodium (135-145) mmol/L Potassium (3.3-5.1) mmol/L Chloride (96-108) mmol/L Carbon Dioxide (22-29) mmol/L Anion Gap (12-20) BUN (9-16) mg/dL Creatinine (0.5-1.4) mg/dL Estim Creat Clear Calc Estimated GFR Random Glucose (60-115) mg/dL Calcium (8.4-10.2) mg/dL Total Bilirubin (0.0-1.0) mg/dL AST (5-31) U/L ALT (0-31) U/L Alkaline Phosphatase (39-117) U/L Troponin I High Sens 9.9 (<3.5-17.0) ng/L Total Protein (6.5-8.0) g/dL Albumin (3.5-5.0) g/dL Urine Color STRAW Urine Appearance CLEAR Urine pH 7.0 (5.0-8.0) Ur Specific [place] 1.010 (1.005-1.025) Urine Protein 1+ H (NEG-TRACE) MG/DL Urine Glucose (UA) NEG (NEG) MG/DL Urine Ketones NEG (NEG) MG/DL Urine Blood NEG (NEG) Urine Nitrite NEG (NEG) Ur Leukocyte Esterase NEG (NEG) Urine RBC 0-2 (0) /HPF Urine WBC 0-2 (0-4) /HPF Ur Squamous Epith Cells TRACE /LPF Urine Bacteria TRACE /LPF Urine Mucus TRACE /LPF ECG Data Interpretation: Rate 61. Pr interval 118. QRS 92. QTC 418. Negative STEMI Discharge Plan Discharge Clinical Impression: Hypertension, Head ache, Abdominal pain Patient Disposition: Home, Self-Care Instructions: Abdominal Pain (ED), Hypertension (ED), General Headache (ED) Additional Instructions: Dubon presi?n arterial, an?lisis de naila, electrocardiograma, tomograf?a computarizada de la joel y tomograf?a computarizada abdominal volvieron a la normalidad. Regrese al servicio de urgencias si empeora el dolor abdominal, n?useas, v?mitos, fiebre, escalofr?os, dolor en el costado, dolor en el pecho, dificultad para respirar, disuria, hematuria o cualquier otro s?ntoma preocupante. Clarissa un seguimiento con dubon proveedor de atenci?n primaria. Prescriptions: No Action Dulera 200-5 mcg/actuation HFA aerosol inhaler 2 puff inhalation Q12H 30 Days Qty: 13 RF: 11 insulin aspart U-100 [Novolog Flexpen U-100 Insulin] 100 unit/mL (3 mL) insulin pen 5 - 10 unit subcut TID 30 Days Qty: 15 RF: 4 (DME) blood-glucose meter [FreeStyle Lite Meter] Kit See Rx Instructions miscellaneous .MEDSUPPLY Qty: 1 RF: 0 (DME) FreeStyle Lite Strips Strip See Rx Instructions .MEDSUPPLY Qty: 300 RF: 3 (DME) lancets [FreeStyle Lancets] 28 gauge misc See Rx Instructions .MEDSUPPLY Qty: 300 RF: 2 blood sugar diagnostic [Accu-Chek Maryann Plus test strp] Strip 1 strip miscellaneous TID 30 Days Qty: 100 RF: 6 blood-glucose meter [Accu-Chek Maryann Plus Meter] Misc 1 ea miscellaneous . 3 times a day 30 Days Qty: 1 RF: 0 lancets [Accu-Chek Softclix Lancets] Misc 1 ea miscellaneous TID 30 Days Qty: 100 RF: 11 atorvastatin 40 mg Tablet 40 mg PO BEDTIME RF: 0 cilostazol 100 mg Tablet 100 mg PO BID RF: 0 carvedilol 25 mg Tablet 25 mg PO BID RF: 0 fluconazole 150 mg Tablet 150 mg PO DAILY RF: 0 sucralfate 1 gram Tablet 2 g PO DAILY RF: 0 montelukast 10 mg Tablet 10 mg PO BEDTIME RF: 0 gabapentin 300 mg Capsule 300 mg PO BEDTIME RF: 0 furosemide 40 mg Tablet 40 mg PO DAILY Qty: 30 RF: 0 mecobalamin (vitamin B12) 1,000 mcg tablet,disintegrating 1,000 mcg sublingual DAILY Qty: 30 RF: 0 omeprazole 40 mg capsule,delayed release(DR/EC) 40 mg PO DAILY Qty: 30 RF: 0 linagliptin 5 mg tablet 5 mg PO DAILY 90 Days Qty: 90 RF: 1 (DME) pen needle, diabetic [BD Sia 2nd Gen Pen Needle] 32 gauge x 5/32 needle See Rx Instructions .MEDSUPPLY Qty: 400 RF: 4 Ele Kramer U-300 Insulin 300 unit/mL (1.5 mL) insulin pen 40 unit subcut DAILY RF: 0 budesonide-formoterol [Symbicort] 160-4.5 mcg/actuation HFA aerosol inhaler 2 puff inhalation BID 30 Days Qty: 10.2 RF: 11 Print Language: Guinean
--- NOTE | 2021-07-03 14:22 | ECG_ITS ---
Test Reason : GENERAL MEDICAL Blood Pressure : / mmHG Vent. Rate : 061 BPM Atrial Rate : 061 BPM P-R Int : 118 ms QRS Dur : 092 ms QT Int : 416 ms P-R-T Axes : 043 006 131 degrees QTc Int : 418 ms Normal sinus rhythm Left ventricular hypertrophy with repolarization abnormality Abnormal ECG When compared with ECG of 18-JUN-2021 14:26, No significant change was found Referred By: Bruce Sheldon Electronically Signed By:PRASANNA BARRERA
[2021-07-03 14:50] LABS: MANUAL DIFF FLAG NO
[2021-07-03 14:53] LABS: Basophils Absolute Auto 0.1 X10*3/uL (0.0-0.2); Basophils Percent Auto 0.6 % (0-2); Eosinophils Absolute Auto 0.2 X10*3/uL (0.0-0.4); Eosinophils Percent Auto 1.7 % (0-4); Hematocrit 38.9 % (37-47); Hemoglobin 12.3 g/dl (12.0-16.0); Imm Gran Abs Auto 0.04 X10*3/uL (0.00-0.03); Imm Gran Pct Auto 0.3 % (0.0-0.4); Lymphocytes Percent Auto 16.2 % (20-40); Mean Corpuscular HGB Conc 31.6 g/dl (31.0-35.0); Mean Corpuscular Hemoglobin 23.3 pg (27.0-33.0); Mean Corpuscular Volume 73.7 fL (80-98); Mean Platelet Volume 8.9 fL (9.4-12.3); Monocytes Absolute Auto 0.7 X10*3/uL (0.1-1.2); Monocytes Percent Auto 5.6 % (2-11); Neutrophils Absolute Auto 9.3 X10*3/uL (2.0-8.3); Neutrophils Percent Auto 75.6 % (45-73); Platelet Count 364 X10*3/uL (160-400); Red Blood Count 5.28 X10*6/uL (4.20-5.50); Red Cell Distribution Width 16.2 % (11.0-16.0); White Blood Count 12.3 X10*3/uL (4.8-10.8)
[2021-07-03 14:58] LABS: Appearance Urine CLEAR; Color Urine STRAW; Glucose Urine UA NEG (NEG); Leukocyte Esterase Urine NEG (NEG); Nitrite Urine NEG (NEG); UACC Culture Trigger NO; Urine Blood NEG (NEG); Urine Ketones NEG (NEG); Urine Protein 1+ MG/DL (NEG-TRACE)
[2021-07-03 15:14] LABS: Alanine Aminotransferase 13 U/L (0-31); Albumin Level 3.8 g/dL (3.5-5.0); Alkaline Phosphatase 135 U/L (39-117); Anion Gap 11 (12-20); Aspartate Amino Transferase 15 U/L (5-31); Bilirubin Total 0.3 mg/dL (0.0-1.0); Blood Urea Nitrogen 23 mg/dL (9-16); Calcium 9.8 mg/dL (8.4-10.2); Carbon Dioxide 32 mmol/L (22-29); Chloride 104 mmol/L (96-108); Creatinine Clr Calc Pharmacy 36.2; Estimated Glomerular Filt Rate 39; Glucose Random 118 mg/dL (60-115); Potassium 4.4 mmol/L (3.3-5.1); Sodium 143 mmol/L (135-145); Total Protein 7.3 g/dL (6.5-8.0); Troponin-I High Sensitivity 10.1 ng/L (<3.5-17.0)
[2021-07-03 15:32] LABS: Bacteria Urine TRACE /LPF; Mucus Urine TRACE /LPF; RBC Urine 0-2 /HPF (0); Squamous Epithelial Cell Urine TRACE /LPF; WBC Urine 0-2 /HPF (0-4)
[2021-07-03 18:29] LABS: Troponin-I High Sensitivity 9.9 ng/L (<3.5-17.0)
[2021-07-03 19:42] VITALS: BP 154/79; PULSE 81; RESP 18; O2SAT 95
[2021-07-03 19:42] LABS: Glucose, Whole Blood 94 mg/dL (60-115)
--- NOTE | 2021-07-03 19:42 | PC.NURSE ---
bs 95 RN aware pt given OJ for d/c. Test And Balance Engineer at bedside to interpret d/c instructions. Pt left ed in NAD.
== END 2021-07-03 19:45 | disposition home or self-care (01) ==
PROVIDERS: Physician Assistant; Emergency Provider Emergency Medicine Emergency Medical Services
DX: R51.9 Headache, unspecified (principal); I10 Essential (primary) hypertension; R10.9 Unspecified abdominal pain; R30.0 Dysuria; F17.210 Nicotine dependence, cigarettes, uncomplicated; Z71.6 Tobacco abuse counseling
CPT/HCPCS: 36415; 70450; 74176; 80053; 81001; 81003; 82947; 84484; 85025; 93005; 99284

== ENCOUNTER → 2021-08-04 09:26 | Outpatient (BNVA) | payer MEDICARE, SELFPAY | PROVIDERS: Visit Provider Advanced Practice Midwife | DX: B37.3 Candidiasis of vulva and vagina (principal); E11.65 Type 2 diabetes mellitus with hyperglycemia; E11.22 Type 2 diabetes mellitus with diabetic chronic kidney disease; E11.21 Type 2 diabetes mellitus with diabetic nephropathy; E11.42 Type 2 diabetes mellitus with diabetic polyneuropathy; I12.9 Hypertensive chronic kidney disease with stage 1 through stage 4 chronic kidney disease, or unspecified chronic kidney disease; N18.30 Chronic kidney disease, stage 3 unspecified; E78.5 Hyperlipidemia, unspecified; E55.9 Vitamin D deficiency, unspecified; E66.01 Morbid (severe) obesity due to excess calories; Z87.891 Personal history of nicotine dependence; Z68.39 Body mass index [BMI] 39.0-39.9, adult; Z88.6 Allergy status to analgesic agent; Z88.8 Allergy status to other drugs, medicaments and biological substances; Z79.4 Long term (current) use of insulin; Z79.899 Other long term (current) drug therapy | CPT/HCPCS: 99212 ==

== ENCOUNTER 2021-08-08 11:22 | Outpatient (REF) | payer MEDICARE, SELFPAY ==
[2021-08-08 11:41] LABS: MANUAL DIFF FLAG NO
[2021-08-08 11:55] LABS: Basophils Absolute Auto 0.1 X10*3/uL (0.0-0.2); Basophils Percent Auto 0.5 % (0-2); Eosinophils Absolute Auto 0.2 X10*3/uL (0.0-0.4); Eosinophils Percent Auto 2.1 % (0-4); Hemoglobin 11.5 g/dl (12.0-16.0); Imm Gran Abs Auto 0.02 X10*3/uL (0.00-0.03); Imm Gran Pct Auto 0.2 % (0.0-0.4); Lymphocytes Absolute Auto 2.4 X10*3/uL (1.2-4.9); Lymphocytes Percent Auto 24.1 % (20-40); Mean Corpuscular HGB Conc 31.9 g/dl (31.0-35.0); Mean Corpuscular Hemoglobin 24.4 pg (27.0-33.0); Mean Corpuscular Volume 76.3 fL (80.0-98.0); Mean Platelet Volume 9.1 fL (9.4-12.3); Monocytes Absolute Auto 0.7 X10*3/uL (0.1-1.2); Monocytes Percent Auto 6.6 % (2-11); Neutrophils Absolute Auto 6.7 x10*3/uL (2.0-8.3); Neutrophils Percent Auto 66.5 % (45-73); Platelet Count 343 X10*3/uL (160-400); Red Blood Count 4.72 X10*6/uL (4.20-5.50); Red Cell Distribution Width 16.5 % (11.0-16.0)
[2021-08-08 12:00] LABS: Prothrombin Time 11.9 SEC (9.9-13.0)
[2021-08-08 12:29] LABS: Anion Gap 12 (12-20); Blood Urea Nitrogen 28 mg/dL (9-16); Calcium 9.5 mg/dL (8.4-10.2); Carbon Dioxide 29 mmol/L (22-29); Chloride 106 mmol/L (96-108); Estimated Glomerular Filt Rate 36; Glucose Random 100 mg/dL (60-115); Potassium 4.2 mmol/L (3.3-5.1); Sodium 143 mmol/L (135-145)
== END 2021-08-08 11:23 | disposition home or self-care (01) ==
LOC: HO.LAB 11:22
PROVIDERS: PCP Family Medicine; Visit Provider Internal Medicine Cardiovascular Disease
DX: I25.10 Atherosclerotic heart disease of native coronary artery without angina pectoris (principal)
CPT/HCPCS: 36415; 80048; 85025; 85610

== ENCOUNTER 2021-08-14 14:39 | Outpatient (REF) | payer MEDICARE, SELFPAY ==
[2021-08-14 16:28] LABS: Creatinine Urine 17.05 mg/dL; Microalbum/Creatinine Ratio Ur 944.2 ug/mg cr
[2021-08-14 16:45] LABS: Alanine Aminotransferase 13 U/L (0-31); Albumin Level 3.6 g/dL (3.5-5.0); Alkaline Phosphatase 123 U/L (39-117); Anion Gap 11 (12-20); Aspartate Amino Transferase 15 U/L (5-31); Bilirubin Total 0.4 mg/dL (0.0-1.0); Blood Urea Nitrogen 24 mg/dL (9-16); Calcium 9.5 mg/dL (8.4-10.2); Carbon Dioxide 31 mmol/L (22-29); Chloride 102 mmol/L (96-108); Cholesterol 181 mg/dL; Estimated Glomerular Filt Rate 35; HDL Cholesterol 49 mg/dL; LDL Cholesterol Calculated 110 mg/dl; Potassium 4.3 mmol/L (3.3-5.1); Sodium 140 mmol/L (135-145); Total Protein 6.8 g/dL (6.5-8.0); Triglycerides 110 mg/dL
[2021-08-14 16:51] LABS: Vitamin D 25-OH Total 41.2 ng/mL (>30)
[2021-08-14 17:03] LABS: Glucose Random 59 mg/dL (60-115)
[2021-08-16 01:52] LABS: LDL Cholesterol Direct 108 mg/dL (<100)
== END 2021-08-14 14:40 | disposition home or self-care (01) ==
LOC: HO.LAB 14:39
PROVIDERS: PCP Family Medicine; Visit Provider Internal Medicine
DX: E11.9 Type 2 diabetes mellitus without complications (principal); E78.5 Hyperlipidemia, unspecified; I10 Essential (primary) hypertension; E55.9 Vitamin D deficiency, unspecified; Z79.84 Long term (current) use of oral hypoglycemic drugs; Z87.891 Personal history of nicotine dependence
CPT/HCPCS: 36415; 80053; 80061; 82043; 82306; 82947; 83721; 99212

== ENCOUNTER → 2021-08-21 13:02 | Outpatient (BNVA) | payer MEDICARE, SELFPAY | PROVIDERS: PCP Family Medicine; Visit Provider Hospitalist | DX: G47.33 Obstructive sleep apnea (adult) (pediatric) (principal); I35.0 Nonrheumatic aortic (valve) stenosis; J45.40 Moderate persistent asthma, uncomplicated; B94.8 Sequelae of other specified infectious and parasitic diseases | CPT/HCPCS: 99212 ==

== ENCOUNTER → 2021-09-11 13:51 | Outpatient (BNVA) | payer OTHER, SELFPAY | PROVIDERS: PCP Family Medicine; Visit Provider Registered Nurse Diabetes Educator | DX: E11.9 Type 2 diabetes mellitus without complications (principal) | CPT/HCPCS: 99211 ==

== ENCOUNTER 2021-09-22 09:44 | Outpatient (REF) | payer MEDICARE, SELFPAY ==
[2021-09-22 10:21] LABS: Estimated Average Glucose 169 mg/dL; Hemoglobin A1c % 7.5 %
== END 2021-09-22 09:45 | disposition home or self-care (01) ==
LOC: HO.LABR 09:44
PROVIDERS: Internal Medicine Endocrinology, Diabetes & Metabolism; Visit Provider Internal Medicine
DX: E11.9 Type 2 diabetes mellitus without complications (principal)
CPT/HCPCS: 36415; 83036

== ENCOUNTER 2021-11-27 13:17 | Outpatient (REF) | payer MEDICARE, SELFPAY ==
--- NOTE | ~2021-11-27 | XR_ITS ---
EXAMINATION: XR CHEST CLINICAL INFORMATION: Chest pain COMPARISON: Previous chest x-ray June 2021 TECHNIQUE: 2 views of the chest were obtained. FINDINGS: The cardiac silhouette is upper normal in size. The central lung markings appear prominent questionable for pulmonary venous redistribution. Differential would include mild airways disease. The lungs are otherwise clear. There is no pleural effusion or pneumothorax. There are degenerative changes of the spine. XR/XR chest 2V IMPRESSION: Upper normal-size cardiac silhouette and question mild pulmonary venous distribution. Findings are similar to June 2021 exam.
--- NOTE | ~2021-11-27 | XR_ITS ---
EXAMINATION: XR SHOULDER, RIGHT CLINICAL INFORMATION: Pain COMPARISON: None TECHNIQUE: Three views of the right shoulder. FINDINGS: Bone alignment is normal. No fracture or dislocation is seen. There are mild degenerative changes at the glenohumeral and acromioclavicular joints. There are degenerative changes of the greater tuberosity. Soft tissues are unremarkable. XR/XR shoulder RT min 2V IMPRESSION: Degenerative changes.
== END 2021-11-27 13:18 | disposition home or self-care (01) ==
LOC: HO.XRAY 13:17
PROVIDERS: PCP Family Medicine; Visit Provider Hospitalist
DX: R07.9 Chest pain, unspecified (principal); B94.8 Sequelae of other specified infectious and parasitic diseases; J44.9 Chronic obstructive pulmonary disease, unspecified; G47.33 Obstructive sleep apnea (adult) (pediatric); I35.0 Nonrheumatic aortic (valve) stenosis; J45.40 Moderate persistent asthma, uncomplicated
CPT/HCPCS: 71046; 73030; 99212

== ENCOUNTER 2021-12-01 14:28 | Outpatient (REF) | payer MEDICARE, SELFPAY ==
[2021-12-01 14:54] LABS: MANUAL DIFF FLAG NO
[2021-12-01 15:14] LABS: Basophils Absolute Auto 0.1 X10*3/uL (0.0-0.2); Basophils Percent Auto 0.5 % (0-2); Eosinophils Absolute Auto 0.2 X10*3/uL (0.0-0.4); Eosinophils Percent Auto 2.5 % (0-4); Hematocrit 38.2 % (37.0-47.0); Hemoglobin 11.9 g/dl (12.0-16.0); Imm Gran Abs Auto 0.03 X10*3/uL (0.00-0.03); Imm Gran Pct Auto 0.3 % (0.0-0.4); Lymphocytes Absolute Auto 2.5 X10*3/uL (1.2-4.9); Lymphocytes Percent Auto 26.1 % (20-40); Mean Corpuscular HGB Conc 31.2 g/dl (31.0-35.0); Mean Corpuscular Hemoglobin 23.9 pg (27.0-33.0); Mean Corpuscular Volume 76.7 fL (80.0-98.0); Mean Platelet Volume 9.4 fL (9.4-12.3); Monocytes Absolute Auto 0.6 X10*3/uL (0.1-1.2); Monocytes Percent Auto 6.6 % (2-11); Neutrophils Absolute Auto 6.1 x10*3/uL (2.0-8.3); Platelet Count 390 X10*3/uL (160-400); Red Blood Count 4.98 X10*6/uL (4.20-5.50); Red Cell Distribution Width 14.6 % (11.0-16.0); White Blood Count 9.6 X10*3/uL (4.8-10.8)
[2021-12-01 15:37] LABS: Appearance Urine HAZY; Color Urine STRAW; Glucose Urine UA NEG (NEG); Leukocyte Esterase Urine TRACE (NEG); Nitrite Urine NEG (NEG); PH 6.5 (5.0-8.0); Specific Gravity - Urine <= 1.005 (1.005-1.025); UACC Culture Trigger YES; Urine Blood NEG (NEG); Urine Ketones NEG (NEG); Urine Protein 1+ MG/DL (NEG-TRACE)
[2021-12-01 15:40] LABS: Alanine Aminotransferase 9 U/L (0-31); Albumin Level 3.5 g/dL (3.5-5.0); Alkaline Phosphatase 135 U/L (39-117); Anion Gap 15 (12-20); Aspartate Amino Transferase 15 U/L (5-31); Bilirubin Total 0.4 mg/dL (0.0-1.0); Blood Urea Nitrogen 23 mg/dL (9-16); Calcium 9.6 mg/dL (8.4-10.2); Carbon Dioxide 28 mmol/L (22-29); Chloride 101 mmol/L (96-108); Cholesterol 223 mg/dL; Estimated Glomerular Filt Rate 37; Glucose Random 205 mg/dL (60-115); HDL Cholesterol 51 mg/dL; LDL Cholesterol Calculated 138 mg/dl; Magnesium 2.1 mg/dL (1.6-2.6); Phosphorus 3.9 mg/dL (2.7-4.5); Potassium 4.4 mmol/L (3.3-5.1); Sodium 140 mmol/L (135-145); Triglycerides 173 mg/dL
[2021-12-01 15:48] LABS: Bacteria Urine 1+ /LPF; Squamous Epithelial Cell Urine 1+ /LPF
[2021-12-01 15:51] LABS: Creatinine Urine 14.22 mg/dL
[2021-12-01 15:53] LABS: Creatinine Urine 14.18 mg/dL; Protein/Creatinine Ratio, Ur 2.19 (<0.2); Total Protein Urine Random 31 mg/dL (<12)
[2021-12-01 15:55] LABS: Vitamin D 25-OH Total 39.6 ng/mL (>30)
[2021-12-01 16:13] LABS: Estimated Average Glucose 183 mg/dL
[2021-12-02 13:57] LABS: Calcium (PTHI) 9.2 mg/dL (8.6-10.4); PTHI 80 pg/mL (14-64)
[2021-12-02 17:31] LABS: LDL Cholesterol Direct 138 mg/dL (<100)
== END 2021-12-01 14:29 | disposition home or self-care (01) ==
LOC: HO.LAB 14:28
PROVIDERS: Internal Medicine Nephrology; Absent Provider Hospitalist; PCP Family Medicine; Visit Provider Internal Medicine
DX: E11.22 Type 2 diabetes mellitus with diabetic chronic kidney disease (principal); N18.31 Chronic kidney disease, stage 3a; R80.1 Persistent proteinuria, unspecified
CPT/HCPCS: 36415; 80053; 80061; 81001; 82043; 82306; 83036; 83721; 83735; 83970; 84100; 84156; 85025; 87086

== ENCOUNTER → 2021-12-03 13:22 | Outpatient (BNVA) | payer MEDICARE, SELFPAY | PROVIDERS: PCP Family Medicine; Visit Provider Internal Medicine Endocrinology, Diabetes & Metabolism | DX: E11.65 Type 2 diabetes mellitus with hyperglycemia (principal); E11.22 Type 2 diabetes mellitus with diabetic chronic kidney disease; N18.9 Chronic kidney disease, unspecified; Z79.4 Long term (current) use of insulin | CPT/HCPCS: 82947; 99212 ==

== ENCOUNTER → 2021-12-25 12:53 | Outpatient (BNVA) | payer OTHER, SELFPAY | PROVIDERS: PCP Family Medicine; Visit Provider Nurse Practitioner Family | DX: M47.812 Spondylosis without myelopathy or radiculopathy, cervical region (principal); M54.51 Vertebrogenic low back pain; M48.062 Spinal stenosis, lumbar region with neurogenic claudication; E11.42 Type 2 diabetes mellitus with diabetic polyneuropathy; E66.01 Morbid (severe) obesity due to excess calories; Z68.41 Body mass index [BMI] 40.0-44.9, adult | CPT/HCPCS: 99202 ==

== ENCOUNTER 2022-01-19 09:10 | Emergency (ER) | payer MEDICARE, SELFPAY ==
[2022-01-19 09:21] VITALS: BP 158/51; PULSE 72; RESP 18; TEMP 36.6; O2SAT 98; BMI 44.3
--- NOTE | 2022-01-19 09:56 | ED.GENADULT ---
HPI - General Adult General Chief complaint: General Medical Stated complaint: HBP Time Seen by Provider: 01/19/22 09:54 Source: patient, family and lang interpreter Mode of arrival: ambulatory Limitations: no limitations History of Present Illness HPI narrative: 76-year-old male with a history of hypertension, diabetes, CKD, morbid obesity, chronic low back pain, chronic neck pain, HTN on multiple medications, asthma, GERD who presents to the ER with significantly elevated blood pressure at home. She reports this is associated with left-sided headache, lightheadedness and generally not feeling well. She also reports burning on urination and low back pain that started this morning. She denies any nausea, vomiting, diarrhea, fever, chills. She took all of her blood pressure medications which include Coreg, hydralazine, amlodipine and on arrival to the ER blood pressure significantly improved 150/80. At home she reports it was 250 systolic. MD complaint: Elevated blood pressure, CEJA and dysuria Onset (ago): unknown Location: head and neck Radiation: non-radiation Severity: moderate Severity scale (1-10): 5 Quality: aching Pain Consistency: intermittent Relieving factors: none Exacerbating factors: none Associated symptoms: denies other symptoms Treatments prior to arrival: other (Home antihypertensives) Related Data Home Medications Medication Instructions Recorded Confirmed atorvastatin 40 mg tablet 40 mg PO BEDTIME 01/18/21 12/03/21 carvedilol 25 mg tablet 25 mg PO BID 01/18/21 08/04/21 cilostazol 100 mg tablet 100 mg PO BID 01/18/21 08/04/21 montelukast 10 mg tablet 10 mg PO BEDTIME 01/18/21 08/04/21 sucralfate 1 gram tablet 2 g PO DAILY 01/18/21 08/04/21 gabapentin 300 mg capsule 300 mg PO BEDTIME 02/20/21 08/04/21 albuterol sulfate 90 mcg/actuation 2 puff PO Q4-6H PRN 08/21/21 aerosol inhaler (Ventolin HFA) amlodipine 2.5 mg tablet 2.5 mg PO DAILY 08/21/21 12/03/21 aspirin 81 mg tablet,delayed 81 mg PO BEDTIME 08/21/21 12/03/21 release brimonidine 0.2 % eye drops 0 drp OPHTHALMIC (EYE) 08/21/21 clonidine HCl 0.1 mg tablet 0.1 mg PO BEDTIME 08/21/21 cyanocobalamin (vitamin B-12) 1,000 mcg PO DAILY 08/21/21 1,000 mcg tablet ergocalciferol (vitamin D2) 1,250 1,250 mcg PO QWEEK 08/21/21 mcg (50,000 unit) capsule folic acid 1 mg tablet 1 mg PO QAM 08/21/21 hydralazine 25 mg tablet 25 mg PO BID 08/21/21 latanoprost 0.005 % eye drops 0 drp OPHTHALMIC (EYE) 08/21/21 pantoprazole 40 mg tablet,delayed 40 mg PO DAILY 08/21/21 release Previous Rx's Medication Instructions Recorded furosemide 40 mg tablet 40 mg PO DAILY #30 tab 02/25/21 mecobalamin (vitamin B12) 1,000 1,000 mcg SUBLINGUAL DAILY #30 tab 02/25/21 mcg disintegrating tablet,sublingual omeprazole 40 mg capsule,delayed 40 mg PO DAILY #30 cap 02/25/21 release linagliptin 5 mg tablet 5 mg PO DAILY 90 Days #90 tab 03/07/21 pen needle, diabetic 32 gauge x #400 ea 03/07/21 (BD Sia 2nd Gen Pen Needle) budesonide-formoterol HFA 160 2 puff INHALATION BID 30 Days 03/20/21 mcg-4.5 mcg/actuation aerosol #10.2 g inhaler (Symbicort) mometasone-formoterol HFA 200 2 puff INHALATION Q12H 30 Days #13 03/21/21 mcg-5 mcg/actuation aerosol g inhaler (Dulera) FreeStyle Lite Meter #1 ea NS 04/02/21 (blood-glucose meter) blood sugar diagnostic (FreeStyle #300 ea 04/02/21 Lite Strips) blood sugar diagnostic (Accu-Chek 1 strip MISCELLANEOUS TID 30 Days 04/03/21 Maryann Plus test strp) #100 strip blood-glucose meter (Accu-Chek 1 ea MISCELLANEOUS . 3 times a day 04/03/21 Maryann Plus Meter) 30 Days #1 ea lancets (Accu-Chek Softclix 1 ea MISCELLANEOUS TID 30 Days 04/03/21 Lancets) #100 ea clotrimazole 1 % vaginal cream 1 appful VAGINAL BEDTIME 7 Days 08/04/21 #45 g insulin glargine U-300 conc 300 40 unit (0.1333 mL) SUBCUT DAILY 12/08/21 unit/mL (1.5 mL) subcutaneous pen 90 Days #11.997 ml (Toujeo SoloStar U-300 Insulin) Novolog Flexpen U-100 Insulin 100 5 - 10 unit (0.05 - 0.1 mL) SUBCUT 12/29/21 unit/mL (3 mL) subcutaneous TID 30 Days #15 ml NS (insulin aspart U-100) FreeStyle Lancets 28 gauge #300 ea NS 01/15/22 (lancets) Allergies Allergy/AdvReac Type Severity Reaction Status Date / Time acetaminophen [Percocet] Allergy Intermediate Itching Verified 01/19/22 09:20 ibuprofen [From MOTRIN] Allergy Intermediate RASH Verified 01/19/22 09:20 Motrin Allergy Intermediate high blood Verified 01/19/22 09:20 pressure oxycodone [From PERCOCET] Allergy Intermediate ITCHING Verified 01/19/22 09:20 Review of Systems Review of Systems: Constitutional: No Fever, No Chills ENT/Mouth: No sore throat, No Rhinorrhea, No Swallowing Difficulty Eyes: No Eye Pain, No Swelling, No Redness, No vision changes Cardiovascular: No Chest Pain, No SOB Respiratory: No Cough, No Sputum, No Wheezing, No dyspnea Gastrointestinal: No Nausea, No Vomiting, No Diarrhea, No abdominal Pain Genitourinary: + Dysuria, + Urinary Frequency, No Hematuria Musculoskeletal: No joint pain, No Myalgias Skin: No Skin Lesions, No rash Neuro: No Weakness, No Numbness, No Dizziness, + Headache Psych: No Anxiety/Panic, No Depression Heme/Lymph: No Bruising, No Lymphadenopathy PMFSH Past Medical History Medical History Aortic stenosis Asthma Back pain Chronic kidney disease CKD (chronic kidney disease) stage 3, GFR 30-59 ml/min Diabetes mellitus Diabetic nephropathy associated with type 2 diabetes mellitus Diabetic polyneuropathy associated with type 2 diabetes mellitus Dyslipidemia GERD (gastroesophageal reflux disease) HLD (hyperlipidemia) Hypertension Infected cyst of skin snf (current) use of insulin Morbid obesity JOSE (obstructive sleep apnea) 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 T2DM (type 2 diabetes mellitus) 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, with long-term current use of insulin Vitamin D deficiency Surgical History History of breast lump/mass excision History of cholecystectomy History of tubal ligation Family History Family History Sister History of renal pelvis cancer Father Suicide Mother Lung disease Diabetes mellitus Social History Social History Household Members: Family Housing: House Do you presently have 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 Oriented X3. No acute distress. Eyes: Pupils equal, round and reactive to light. ENT: Pharynx normal. Neck: Normal inspection. Neck supple. CVS: Normal heart rate and rhythm. Pulses normal. Respiratory: No respiratory distress. Breath sounds normal. Abdomen: Obese, soft and nontender. +BS x4 Skin: Skin warm and dry. Normal skin color. Normal skin turgor. No rashes. Extremities: No lower extremity edema. Neuro: Oriented X 3. No motor deficit. No sensory deficit. Normal speech, CN II-XII intact. Steady gait. Course Course Course Narrative: 26-year-old female with history of HTN, HLD, diabetes with CKD and neuropathy, asthma, morbid obesity who presents to the ER with elevated blood pressure at home associated with multiple other complaints. Her BP here is much improved after taking her home medications. Will check basic labs and UA. Reevaluation(s) Reevaluation #1: H&H that her baseline 11/36 BMP showing some mild chronic kidney disease which is at her baseline. Her urinalysis is negative for infection. At this time her blood pressure remained stable 150 over 80s. She is stable for discharge home with plan to follow-up with her PCP this as scheduled. Medical Decision Making Lab Data Result diagrams: 01/19/22 10:33 01/19/22 10:33 Labs: Lab Results 01/19/22 01/19/22 01/19/22 Range/Units 10:33 10:33 11:35 WBC 10.5 (4.8-10.8) X10*3/uL RBC 4.92 (4.20-5.50) X10*6/uL Hgb 11.6 L (12.0-16.0) g/dl Hct 36.7 L (37.0-47.0) % MCV 74.6 L (80.0-98.0) fL MCH 23.6 L (27.0-33.0) pg MCHC 31.6 (31.0-35.0) g/dl RDW 15.2 (11.0-16.0) % Plt Count 352 (160-400) X10*3/uL MPV 9.2 L (9.4-12.3) fL Immature Gran % (Auto) 0.5 H (0.0-0.4) % Neut % (Auto) 75.4 H (45-73) % Lymph % (Auto) 16.5 L (20-40) % [place] % (Auto) 5.3 (2-11) % Eos % (Auto) 1.9 (0-4) % Baso % (Auto) 0.4 (0-2) % Lymph # (Auto) 1.7 (1.2-4.9) X10*3/uL [place] # (Auto) 0.6 (0.1-1.2) X10*3/uL Eos # (Auto) 0.2 (0.0-0.4) X10*3/uL Baso # (Auto) 0.0 (0.0-0.2) X10*3/uL Abs Immat Gran (auto) 0.05 H (0.00-0.03) X10*3/uL Absolute Neuts (auto) 7.9 (2.0-8.3) x10*3/uL Absolute Nucleated RBC 0.000 (0.0-0.012) X10*3/uL Nucleated RBC % (auto) 0.0 (0.0-0.2) /100WBC Sodium 141 (135-145) mmol/L Potassium 3.7 (3.3-5.1) mmol/L Chloride 102 (96-108) mmol/L Carbon Dioxide 31 H (22-29) mmol/L Anion Gap 12 (12-20) BUN 27 H (9-16) mg/dL Creatinine 1.47 H (0.5-1.4) mg/dL Estim Creat Clear Calc 30.9 Estimated GFR 35 Random Glucose 275 H (60-115) mg/dL Calcium 9.3 (8.4-10.2) mg/dL Magnesium 1.8 (1.6-2.6) mg/dL Total Bilirubin 0.5 (0.0-1.0) mg/dL Direct Bilirubin 0.2 (0.0-0.5) mg/dL AST 13 (5-31) U/L ALT 12 (0-31) U/L Alkaline Phosphatase 130 H (39-117) U/L Total Protein 6.7 (6.5-8.0) g/dL Albumin 3.4 L (3.5-5.0) g/dL Urine Color STRAW Urine Appearance CLEAR Urine pH 6.0 (5.0-8.0) Ur Specific [place] 1.010 (1.005-1.025) Urine Protein TRACE (NEG-TRACE) MG/DL Urine Glucose (UA) NEG (NEG) MG/DL Urine Ketones NEG (NEG) MG/DL Urine Blood NEG (NEG) Urine Nitrite NEG (NEG) Ur Leukocyte Esterase NEG (NEG) Critical Care Time Critical Care Time Critical Care Time: No Discharge Plan Discharge Clinical Impression: Hypertension Patient Disposition: Home, Self-Care Instructions: Chronic Hypertension (DC) Additional Instructions: Take all of your medications as prescribed. Your labs were at your baseline and your urine test did not show infection. Follow up with your doctor on as scheduled. Continue to monitor your BP at home - take your blood pressure after your take your medications. If you develop new or worsening symptoms call 911 or come back to the ER for further evaluation. [place] todos tri medicamentos seg?n lo prescrito. Tri laboratorios estaban en aden l?kam de base y aden prueba de orina no mostr? infecci?n. Clarissa un seguimiento con aden m?dico el jueves seg?n lo programado. Contin?e controlando aden presi?n arterial en casa: tome aden presi?n arterial despu?s de monica tri medicamentos. Si desarrolla s?ntomas nuevos o que empeoran, llame al 911 o regrese a la amanda de emergencias para luigi evaluaci?n adicional. Prescriptions: No Action Dulera 200-5 mcg/actuation HFA aerosol inhaler 2 puff inhalation Q12H 30 Days Qty: 13 11RF (DME) blood-glucose meter [FreeStyle Lite Meter] Kit See Rx Instructions miscellaneous .MEDSUPPLY Qty: 1 0RF Rx Instructions: 4 times a day (DME) FreeStyle Lite Strips Strip See Rx Instructions .MEDSUPPLY Qty: 300 3RF Rx Instructions: 3times a day blood sugar diagnostic [Accu-Chek Maryann Plus test strp] Strip 1 strip miscellaneous TID 30 Days Qty: 100 6RF blood-glucose meter [Accu-Chek Maryann Plus Meter] Misc 1 ea miscellaneous . 3 times a day 30 Days Qty: 1 0RF lancets [Accu-Chek Softclix Lancets] Misc 1 ea miscellaneous TID 30 Days Qty: 100 11RF Toujeo SoloStar U-300 Insulin 300 unit/mL (1.5 mL) insulin pen 40 unit subcut DAILY 90 Days Qty: 11.997 1RF insulin aspart U-100 [Novolog Flexpen U-100 Insulin] 100 unit/mL (3 mL) insulin pen 5 - 10 unit subcut TID 30 Days Qty: 15 4RF (DME) lancets [FreeStyle Lancets] 28 gauge misc See Rx Instructions .MEDSUPPLY Qty: 300 2RF Rx Instructions: 3 times a day atorvastatin 40 mg Tablet 40 mg PO BEDTIME 0RF cilostazol 100 mg Tablet 100 mg PO BID 0RF carvedilol 25 mg Tablet 25 mg PO BID 0RF sucralfate 1 gram Tablet 2 g PO DAILY 0RF montelukast 10 mg Tablet 10 mg PO BEDTIME 0RF gabapentin 300 mg Capsule 300 mg PO BEDTIME 0RF furosemide 40 mg Tablet 40 mg PO DAILY Qty: 30 0RF Protocol: Hold for SBP< HOLD for SBP < : 90 mecobalamin (vitamin B12) 1,000 mcg tablet,disintegrating 1,000 mcg sublingual DAILY Qty: 30 0RF Rx Instructions: place tablet under tongue and allow to dissolve for at least30 secs before swallowing omeprazole 40 mg capsule,delayed release(DR/EC) 40 mg PO DAILY Qty: 30 0RF linagliptin 5 mg tablet 5 mg PO DAILY 90 Days Qty: 90 1RF (DME) pen needle, diabetic [BD Sia 2nd Gen Pen Needle] 32 gauge x 5/32 needle See Rx Instructions .MEDSUPPLY Qty: 400 4RF Rx Instructions: 5 times a day budesonide-formoterol [Symbicort] 160-4.5 mcg/actuation HFA aerosol inhaler 2 puff inhalation BID 30 Days Qty: 10.2 11RF amlodipine 2.5 mg tablet 2.5 mg PO DAILY 0RF pantoprazole 40 mg tablet,delayed release (DR/EC) 40 mg PO DAILY 0RF ergocalciferol (vitamin D2) 1,250 mcg (50,000 unit) capsule 1,250 mcg PO QWEEK 0RF hydralazine 25 mg tablet 25 mg PO BID 0RF cyanocobalamin (vitamin B-12) 1,000 mcg tablet 1,000 mcg PO DAILY 0RF clonidine HCl 0.1 mg tablet 0.1 mg PO BEDTIME 0RF brimonidine 0.2 % drops 0 drp ophthalmic (eye) 0RF latanoprost 0.005 % drops 0 drp ophthalmic (eye) 0RF albuterol sulfate [Ventolin HFA] 90 mcg/actuation HFA aerosol inhaler 2 puff PO Q4-6H PRN (Reason: dyspnea) 0RF folic acid 1 mg tablet 1 mg PO QAM 0RF aspirin 81 mg tablet,delayed release (DR/EC) 81 mg PO BEDTIME 0RF clotrimazole 1 % cream 1 appful vaginal BEDTIME 7 Days Qty: 45 4RF Rx Instructions: use for any recurrent yeast infections Referrals: Marycarmen Quijano MD [Primary Care Provider] - 3 days
[2022-01-19 10:15] VITALS: BP 153/53; PULSE 70; RESP 16; TEMP 37.1; O2SAT 97
[2022-01-19] MEDS: Acetaminophen 325 MG TABLET 975 MG PO (10:24)
[2022-01-19 10:37] LABS: MANUAL DIFF FLAG NO
[2022-01-19 10:39] LABS: Basophils Percent Auto 0.4 % (0-2); Eosinophils Absolute Auto 0.2 X10*3/uL (0.0-0.4); Eosinophils Percent Auto 1.9 % (0-4); Hematocrit 36.7 % (37.0-47.0); Hemoglobin 11.6 g/dl (12.0-16.0); Imm Gran Abs Auto 0.05 X10*3/uL (0.00-0.03); Imm Gran Pct Auto 0.5 % (0.0-0.4); Lymphocytes Absolute Auto 1.7 X10*3/uL (1.2-4.9); Lymphocytes Percent Auto 16.5 % (20-40); Mean Corpuscular HGB Conc 31.6 g/dl (31.0-35.0); Mean Corpuscular Hemoglobin 23.6 pg (27.0-33.0); Mean Corpuscular Volume 74.6 fL (80.0-98.0); Mean Platelet Volume 9.2 fL (9.4-12.3); Monocytes Absolute Auto 0.6 X10*3/uL (0.1-1.2); Monocytes Percent Auto 5.3 % (2-11); Neutrophils Absolute Auto 7.9 x10*3/uL (2.0-8.3); Neutrophils Percent Auto 75.4 % (45-73); Platelet Count 352 X10*3/uL (160-400); Red Blood Count 4.92 X10*6/uL (4.20-5.50); Red Cell Distribution Width 15.2 % (11.0-16.0); White Blood Count 10.5 X10*3/uL (4.8-10.8)
[2022-01-19 10:54] LABS: Alanine Aminotransferase 12 U/L (0-31); Albumin Level 3.4 g/dL (3.5-5.0); Alkaline Phosphatase 130 U/L (39-117); Anion Gap 12 (12-20); Aspartate Amino Transferase 13 U/L (5-31); Bilirubin Direct 0.2 mg/dL (0.0-0.5); Bilirubin Total 0.5 mg/dL (0.0-1.0); Blood Urea Nitrogen 27 mg/dL (9-16); Calcium 9.3 mg/dL (8.4-10.2); Carbon Dioxide 31 mmol/L (22-29); Chloride 102 mmol/L (96-108); Creatinine Clr Calc Pharmacy 30.9; Estimated Glomerular Filt Rate 35; Glucose Random 275 mg/dL (60-115); Magnesium 1.8 mg/dL (1.6-2.6); Potassium 3.7 mmol/L (3.3-5.1); Sodium 141 mmol/L (135-145); Total Protein 6.7 g/dL (6.5-8.0)
[2022-01-19 11:38] VITALS: BP 150/54; PULSE 64; O2SAT 96
[2022-01-19 11:43] LABS: Appearance Urine CLEAR; Color Urine STRAW; Glucose Urine UA NEG (NEG); Leukocyte Esterase Urine NEG (NEG); Nitrite Urine NEG (NEG); Urine Blood NEG (NEG); Urine Ketones NEG (NEG); Urine Protein TRACE MG/DL (NEG-TRACE)
== END 2022-01-19 12:21 | disposition home or self-care (01) ==
PROVIDERS: Physician Assistant; Emergency Provider Emergency Medicine; PCP Family Medicine
DX: I12.9 Hypertensive chronic kidney disease with stage 1 through stage 4 chronic kidney disease, or unspecified chronic kidney disease (principal); M54.2 Cervicalgia; Z79.899 Other long term (current) drug therapy; Z87.891 Personal history of nicotine dependence
CPT/HCPCS: 36415; 80048; 80076; 81003; 83735; 85025; 99283; 99284

== ENCOUNTER 2022-02-12 13:00 | Outpatient (REF) | payer OTHER, SELFPAY ==
--- NOTE | ~2022-02-12 | XR_ITS ---
EXAMINATION: XR CHEST CLINICAL INFORMATION: Cough COMPARISON: Previous chest x-ray November 2021 TECHNIQUE: Two-view chest FINDINGS: The cardiac silhouette is upper normal in size but stable. There are increased central hilar markings similar to previous exam. The lungs are otherwise clear. There is no pleural effusion or pneumothorax. There are degenerative changes of the spine. XR/XR chest 2V IMPRESSION: Increased central hilar markings questionable for airways disease or mild interstitial pulmonary edema.
== END 2022-02-12 13:01 | disposition home or self-care (01) ==
LOC: HO.XRAY 13:00
PROVIDERS: PCP Family Medicine; Visit Provider Hospitalist
DX: R05.9 Cough, unspecified (principal); J96.91 Respiratory failure, unspecified with hypoxia; B94.8 Sequelae of other specified infectious and parasitic diseases; J44.9 Chronic obstructive pulmonary disease, unspecified; J45.40 Moderate persistent asthma, uncomplicated; E66.01 Morbid (severe) obesity due to excess calories; E11.65 Type 2 diabetes mellitus with hyperglycemia; E11.42 Type 2 diabetes mellitus with diabetic polyneuropathy; E11.21 Type 2 diabetes mellitus with diabetic nephropathy; E11.22 Type 2 diabetes mellitus with diabetic chronic kidney disease; N18.30 Chronic kidney disease, stage 3 unspecified; G47.33 Obstructive sleep apnea (adult) (pediatric); R51.9 Headache, unspecified; Z87.891 Personal history of nicotine dependence; Z68.42 Body mass index [BMI] 45.0-49.9, adult; Z88.6 Allergy status to analgesic agent; Z88.8 Allergy status to other drugs, medicaments and biological substances; Z99.2 Dependence on renal dialysis; Z99.89 Dependence on other enabling machines and devices; Z79.4 Long term (current) use of insulin
CPT/HCPCS: 71046; 99212

== ENCOUNTER → 2022-02-27 12:54 | Outpatient (BNVA) | payer OTHER, SELFPAY | PROVIDERS: PCP Family Medicine; Visit Provider Nurse Practitioner Family | DX: M47.816 Spondylosis without myelopathy or radiculopathy, lumbar region (principal); E66.01 Morbid (severe) obesity due to excess calories; Z68.41 Body mass index [BMI] 40.0-44.9, adult | CPT/HCPCS: 99212 ==

== ENCOUNTER 2022-03-13 08:49 | Outpatient (REF) | payer OTHER, SELFPAY ==
[2022-03-13 09:14] LABS: MANUAL DIFF FLAG NO
[2022-03-13 09:36] LABS: Basophils Percent Auto 0.4 % (0-2); Eosinophils Absolute Auto 0.4 X10*3/uL (0.0-0.4); Eosinophils Percent Auto 3.2 % (0-4); Hematocrit 34.6 % (37.0-47.0); Hemoglobin 10.9 g/dl (12.0-16.0); Imm Gran Abs Auto 0.04 X10*3/uL (0.00-0.03); Imm Gran Pct Auto 0.4 % (0.0-0.4); Lymphocytes Percent Auto 17.9 % (20-40); Mean Corpuscular HGB Conc 31.5 g/dl (31.0-35.0); Mean Corpuscular Hemoglobin 23.2 pg (27.0-33.0); Mean Corpuscular Volume 73.8 fL (80.0-98.0); Mean Platelet Volume 9.4 fL (9.4-12.3); Monocytes Absolute Auto 0.7 X10*3/uL (0.1-1.2); Monocytes Percent Auto 6.7 % (2-11); Neutrophils Absolute Auto 7.8 x10*3/uL (2.0-8.3); Neutrophils Percent Auto 71.4 % (45-73); Platelet Count 389 X10*3/uL (160-400); Red Blood Count 4.69 X10*6/uL (4.20-5.50); Red Cell Distribution Width 15.3 % (11.0-16.0); White Blood Count 10.9 X10*3/uL (4.8-10.8)
[2022-03-13 10:24] LABS: Alanine Aminotransferase 18 U/L (0-31); Albumin Level 3.3 g/dL (3.5-5.0); Alkaline Phosphatase 115 U/L (39-117); Anion Gap 14 (12-20); Aspartate Amino Transferase 13 U/L (5-31); Bilirubin Direct 0.2 mg/dL (0.0-0.5); Bilirubin Total 0.4 mg/dL (0.0-1.0); Blood Urea Nitrogen 20 mg/dL (9-16); Calcium 9.3 mg/dL (8.4-10.2); Carbon Dioxide 28 mmol/L (22-29); Chloride 102 mmol/L (96-108); Estimated Glomerular Filt Rate 35; Glucose Random 259 mg/dL (60-115); Lipase 309 U/L (8-78); Potassium 4.2 mmol/L (3.3-5.1); Sodium 140 mmol/L (135-145); Total Protein 6.6 g/dL (6.5-8.0)
== END 2022-03-13 08:50 | disposition home or self-care (01) ==
LOC: HO.LAB 08:49
PROVIDERS: Visit Provider Family Medicine
DX: R10.84 Generalized abdominal pain (principal); R19.7 Diarrhea, unspecified
CPT/HCPCS: 36415; 80048; 80076; 83690; 85025

== ENCOUNTER 2022-03-16 14:01 | Outpatient (REF) | payer OTHER, SELFPAY | END 2022-03-16 14:02 | disposition home or self-care (01) | LOC: HO.LNP 14:01 | PROVIDERS: Visit Provider Emergency Medicine | DX: R10.84 Generalized abdominal pain (principal); R19.7 Diarrhea, unspecified | CPT/HCPCS: 87086 ==

== ENCOUNTER 2022-03-20 09:04 | Outpatient (REF) | payer OTHER, SELFPAY ==
[2022-03-21 10:26] LABS: BV Int Neg Control Negative (Negative); BV Int Pos Control Positive (Positive)
== END 2022-03-20 09:05 | disposition home or self-care (01) ==
LOC: HO.LAB 09:04
PROVIDERS: Visit Provider Advanced Practice Midwife
DX: N89.8 Other specified noninflammatory disorders of vagina (principal)
CPT/HCPCS: 87480; 87510; 87660; 99212

== ENCOUNTER 2022-04-04 18:18 | Emergency (ER) | payer OTHER, SELFPAY ==
--- NOTE | ~2022-04-04 | XR_ITS ---
EXAMINATION: XR CHEST CLINICAL INFORMATION: Pneumonia COMPARISON: None TECHNIQUE: Frontal view of the chest was obtained. FINDINGS: Again seen are slightly increased perihilar markings. No significant abnormality is noted involving the heart, lungs, mediastinum, bony thorax or soft tissues. No evidence of pneumonia. XR/XR chest 1V IMPRESSION: No pneumonia is detected.
[2022-04-04 18:29] VITALS: BP 220/96; PULSE 85; RESP 22; TEMP 36.7; O2SAT 98; BMI 42.1
[2022-04-04 19:02] LABS: COVID-19 Test Positive (Negative)
[2022-04-04 19:07] LABS: Strep A Nucleic Acid Negative (Negative)
[2022-04-04 23:37] VITALS: BP 178/65; PULSE 75; RESP 16; TEMP 36.8; O2SAT 98
--- NOTE | 2022-04-04 23:40 | ED.URI ---
HPI - URI/Sore Throat General Chief Complaint: Upper Respiratory Symptoms Stated Complaint: coughing/throat pain Time Seen by Provider: 04/04/22 18:37 Source: patient Mode of arrival: ambulatory Limitations: no limitations History of Present Illness HPI Narrative: Patient comes to the emergency room complaining of 4 days of cough, nausea and mild sore throat. Patient states that she was visited by family from [place], who informed the patient that they tested positive for COVID-19. Patient denies any chest pain or shortness of breath. Patient states that she is not immunized for COVID-19. Related Data Home Medications Medication Instructions Recorded Confirmed atorvastatin 40 mg tablet 40 mg PO BEDTIME 01/18/21 12/03/21 carvedilol 25 mg tablet 25 mg PO BID 01/18/21 08/04/21 cilostazol 100 mg tablet 100 mg PO BID 01/18/21 08/04/21 montelukast 10 mg tablet 10 mg PO BEDTIME 01/18/21 08/04/21 sucralfate 1 gram tablet 2 g PO DAILY 01/18/21 08/04/21 gabapentin 300 mg capsule 300 mg PO BEDTIME 02/20/21 08/04/21 albuterol sulfate 90 mcg/actuation 2 puff PO Q4-6H PRN dyspnea 08/21/21 aerosol inhaler (Ventolin HFA) amlodipine 2.5 mg tablet 2.5 mg PO DAILY 08/21/21 12/03/21 aspirin 81 mg tablet,delayed 81 mg PO BEDTIME 08/21/21 12/03/21 release brimonidine 0.2 % eye drops 0 drp ophthalmic (eye) 08/21/21 clonidine HCl 0.1 mg tablet 0.1 mg PO BEDTIME 08/21/21 cyanocobalamin (vitamin B-12) 1,000 mcg PO DAILY 08/21/21 1,000 mcg tablet ergocalciferol (vitamin D2) 1,250 1,250 mcg PO QWEEK 08/21/21 mcg (50,000 unit) capsule folic acid 1 mg tablet 1 mg PO QAM 08/21/21 hydralazine 25 mg tablet 25 mg PO BID 08/21/21 latanoprost 0.005 % eye drops 0 drp ophthalmic (eye) 08/21/21 pantoprazole 40 mg tablet,delayed 40 mg PO DAILY 08/21/21 release Previous Rx's Medication Instructions Recorded furosemide 40 mg tablet 40 mg PO DAILY #30 tabs 02/25/21 mecobalamin (vitamin B12) 1,000 1,000 mcg sublingual DAILY #30 tabs 02/25/21 mcg disintegrating tablet,sublingual omeprazole 40 mg capsule,delayed 40 mg PO DAILY #30 caps 02/25/21 release pen needle, diabetic 32 gauge x #400 ea 03/07/21 (BD Sia 2nd Gen Pen Needle) budesonide-formoterol HFA 160 2 puff inhalation BID 30 days 03/20/21 mcg-4.5 mcg/actuation aerosol #10.2 grams inhaler (Symbicort) mometasone-formoterol HFA 200 2 puff inhalation Q12H 30 days #13 03/21/21 mcg-5 mcg/actuation aerosol grams inhaler (Dulera) FreeStyle Lite Meter #1 ea 04/02/21 (blood-glucose meter) blood sugar diagnostic (Accu-Chek 1 strip miscellaneous TID for 04/03/21 Maryann Plus test strp) diabetes mellitus 30 days #100 strips blood-glucose meter (Accu-Chek 1 ea miscellaneous . 3 times a day 04/03/21 Maryann Plus Meter) 30 days #1 ea lancets (Accu-Chek Softclix 1 ea miscellaneous TID for 04/03/21 Lancets) diabetes mellitus 30 days #100 ea clotrimazole 1 % vaginal cream 1 appful vaginal BEDTIME 7 days 08/04/21 #45 grams Novolog Flexpen U-100 Insulin 100 5 - 10 unit (0.05 - 0.1 mL) subcut 12/29/21 unit/mL (3 mL) subcutaneous TID 30 days #15 mL (insulin aspart U-100) FreeStyle Lancets 28 gauge #300 ea 01/15/22 (lancets) Magic Mouthwash 10 ml PO QID PRN mouth pain 14 02/12/22 Diphen/Lido/Antacid 1:1:1 240 mL days #240 mL suspension blood sugar diagnostic (FreeStyle #300 ea 03/03/22 Lite Strips) insulin glargine U-300 conc 300 40 unit (0.1333 mL) subcut DAILY 03/19/22 unit/mL (1.5 mL) subcutaneous pen 90 days #11.997 mL (Toutayler SoloStar U-300 Insulin) linagliptin 5 mg tablet 5 mg PO DAILY 90 days #90 tabs 03/19/22 clotrimazole-betamethasone 1 1 appl topical BID PRN itching 7 03/20/22 %-0.05 % topical cream days #45 grams amlodipine 10 mg tablet 10 mg PO DAILY #30 tabs 04/04/22 Allergies Allergy/AdvReac Type Severity Reaction Status Date / Time acetaminophen [Percocet] Allergy Intermediate Itching Verified 03/20/22 08:35 ibuprofen [From MOTRIN] Allergy Intermediate RASH Verified 03/20/22 08:35 Motrin Allergy Intermediate high blood Verified 03/20/22 08:35 pressure oxycodone [From PERCOCET] Allergy Intermediate ITCHING Verified 03/20/22 08:35 Review of Systems Review of Systems: Constitutional : No Weight loss, No Fever, No Chills, No Night Sweats, No Fatigue, No Malaise ENT/Mouth : No Hearing loss, No Ear Pain, No Nasal Congestion, No Sinus Pain, No Hoarseness, complaining of mild sore throat, No Rhinorrhea, No Swallowing Difficulty Eyes: No Eye Pain, No Swelling, No Redness, No Foreign Body, No Discharge, No Vision Changes Cardiovascular : No Chest Pain, No SOB, No Dyspnea on Exertion, No Orthopnea, No Edema, No Palpitations Respiratory : Complaining of chronic dry cough which is worse than usual, no shortness of breath Gastrointestinal : No Nausea, No Vomiting, No Diarrhea, No Constipation, No abdominal Pain, No Hematochezia, No Melena Genitourinary : no irregular bleeding, No Dysuria, No Urinary Frequency, No Hematuria, No Urinary Incontinence, No Urgency, No Flank Pain, No Urinary Flow Changes, No Hesitancy Musculoskeletal : No joint pain, No Myalgias, No Joint Swelling Skin : No Skin Lesions, No rash Neuro : No Weakness, No Numbness, No Paresthesias, No Loss of Consciousness, No Dizziness, No Headache Psych : No Anxiety/Panic, No Depression, No SI/HI/AH/VH, No Social Issues, Heme/Lymph: No Bruising, No Bleeding,No Lymphadenopathy Endocrine : No Polyuria, No Polydipsia, No Temperature Intolerance PMFSH Past Medical History Medical History Aortic stenosis Asthma Back pain Chronic kidney disease CKD (chronic kidney disease) stage 3, GFR 30-59 ml/min Diabetes mellitus Diabetic nephropathy associated with type 2 diabetes mellitus Diabetic polyneuropathy associated with type 2 diabetes mellitus Dyslipidemia GERD (gastroesophageal reflux disease) HLD (hyperlipidemia) Hypertension Infected cyst of skin FDC (current) use of insulin Morbid obesity JOSE (obstructive sleep apnea) 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 T2DM (type 2 diabetes mellitus) 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, with long-term current use of insulin Vitamin D deficiency Surgical History History of breast lump/mass excision History of cholecystectomy History of tubal ligation Family History Family History Sister History of renal pelvis cancer Father Suicide Mother Lung disease Diabetes mellitus Social History Social History Household Members: Family Housing: House Do you 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 Oriented X3. No acute distress. Eyes: Pupils equal, round and reactive to light. ENT: Pharynx normal. Neck: Normal inspection. Neck supple. No lymph nodes noted. No crepitus CVS: Normal heart rate and rhythm. Pulses normal. Normal S1 and S2 Respiratory: No respiratory distress. Breath sounds normal. No Wheezing. No rales Abdomen: Soft and nontender. No rigidity. No distention. Skin: Skin warm and dry. Normal skin color. Normal skin turgor. Extremities: No lower extremity edema. No Lacerations. No Rash Neuro: Oriented X 3. No motor deficit. No sensory deficit. Moving all extremities. No slurred speech. CN 2 through 12 grossly intact Psych: calm, cooperative, normal affect Course Course Course Narrative: I discussed with the patient that she tested positive for COVID-19. Chest x-ray is negative, patient's oxygen saturation remains at 98%, including walking in her room. Patient's blood pressure on arrival is 220/96. Patient states that she takes amlodipine 2.5, Coreg 25, states that she is compliant with her home medications. On discharge, blood pressure is 178 systolic. Patient has no chest pain, shortness of breath, visual changes. Patient was asked to increase her amlodipine to 10 mg. MDM - URI/Sore Throat Lab Data Labs: Lab Results 04/04/22 04/04/22 Range/Units 18:40 18:40 COVID-19 ([facility]ANCA) Positive A (Negative) COVID-19 Clin Com See Note S. pyogenes GrpA TALIA Negative (Negative) Imaging Data Chest x-ray: Radiologist's impression: INDINGS: Again seen are slightly increased perihilar markings. No significant abnormality is noted involving the heart, lungs, mediastinum, bony thorax or soft tissues. No evidence of pneumonia. XR/XR chest 1V IMPRESSION: No pneumonia is detected. Discharge Plan Discharge Clinical Impression: COVID-19, Hypertension Patient Disposition: Home, Self-Care Instructions: Hypertension (ED), COVID-19 (Coronavirus Disease 2019) (ED) Additional Instructions: Please increase your amlodipine dose to 10 mg. He currently have 2.5 mg tablets. 10 mg tablets were sent to your pharmacy, only take 1 of these (10 mg tablet). Please follow-up with your primary care physician tomorrow. If you have any worsening or new symptoms, please return to the emergency room or call 911 Prescriptions: New amlodipine 10 mg tablet 10 mg PO DAILY Qty: 30 0RF No Action Dulera 200-5 mcg/actuation HFA aerosol inhaler 2 puff inhalation Q12H 30 Days Qty: 13 11RF (DME) blood-glucose meter [FreeStyle Lite Meter] Kit See Rx Instructions miscellaneous .MEDSUPPLY Qty: 1 0RF Rx Instructions: 4 times a day blood sugar diagnostic [Accu-Chek Maryann Plus test strp] Strip 1 strip miscellaneous TID 30 Days Qty: 100 6RF blood-glucose meter [Accu-Chek Maryann Plus Meter] Misc 1 ea miscellaneous . 3 times a day 30 Days Qty: 1 0RF lancets [Accu-Chek Softclix Lancets] Misc 1 ea miscellaneous TID 30 Days Qty: 100 11RF insulin aspart U-100 [Novolog Flexpen U-100 Insulin] 100 unit/mL (3 mL) insulin pen 5 - 10 unit subcut TID 30 Days Qty: 15 4RF (DME) lancets [FreeStyle Lancets] 28 gauge misc See Rx Instructions .MEDSUPPLY Qty: 300 2RF Rx Instructions: 3 times a day (DME) FreeStyle Lite Strips Strip See Rx Instructions .MEDSUPPLY Qty: 300 3RF Rx Instructions: 3times a day Toujeo SoloStar U-300 Insulin 300 unit/mL (1.5 mL) insulin pen 40 unit subcut DAILY 90 Days Qty: 11.997 1RF linagliptin 5 mg tablet 5 mg PO DAILY 90 Days Qty: 90 1RF atorvastatin 40 mg Tablet 40 mg PO BEDTIME cilostazol 100 mg Tablet 100 mg PO BID carvedilol 25 mg Tablet 25 mg PO BID sucralfate 1 gram Tablet 2 g PO DAILY montelukast 10 mg Tablet 10 mg PO BEDTIME gabapentin 300 mg Capsule 300 mg PO BEDTIME furosemide 40 mg Tablet 40 mg PO DAILY Qty: 30 0RF Protocol: Hold for SBP< HOLD for SBP < : 90 mecobalamin (vitamin B12) 1,000 mcg tablet,disintegrating 1,000 mcg sublingual DAILY Qty: 30 0RF Rx Instructions: place tablet under tongue and allow to dissolve for at least30 secs before swallowing omeprazole 40 mg capsule,delayed release(DR/EC) 40 mg PO DAILY Qty: 30 0RF (DME) pen needle, diabetic [BD Sia 2nd Gen Pen Needle] 32 gauge x 5/32 needle See Rx Instructions .MEDSUPPLY Qty: 400 4RF Rx Instructions: 5 times a day budesonide-formoterol [Symbicort] 160-4.5 mcg/actuation HFA aerosol inhaler 2 puff inhalation BID 30 Days Qty: 10.2 11RF amlodipine 2.5 mg tablet 2.5 mg PO DAILY pantoprazole 40 mg tablet,delayed release (DR/EC) 40 mg PO DAILY ergocalciferol (vitamin D2) 1,250 mcg (50,000 unit) capsule 1,250 mcg PO QWEEK hydralazine 25 mg tablet 25 mg PO BID cyanocobalamin (vitamin B-12) 1,000 mcg tablet 1,000 mcg PO DAILY clonidine HCl 0.1 mg tablet 0.1 mg PO BEDTIME brimonidine 0.2 % drops 0 drp ophthalmic (eye) latanoprost 0.005 % drops 0 drp ophthalmic (eye) albuterol sulfate [Ventolin HFA] 90 mcg/actuation HFA aerosol inhaler 2 puff PO Q4-6H PRN (Reason: dyspnea) folic acid 1 mg tablet 1 mg PO QAM aspirin 81 mg tablet,delayed release (DR/EC) 81 mg PO BEDTIME Magic Mouthwash Diphen/Lido/Antacid 1:1:1 240 mL suspension 10 ml PO QID PRN (Reason: mouth pain) 14 Days Qty: 240 0RF Rx Instructions: Lidocaine Viscous 2 % 80mL; diphenhydramine 12.5 mg/5 mL 80mL; aluminum-mag hydrox-simeth [id number]/5mL 80mL clotrimazole-betamethasone 1-0.05 % cream 1 appl topical BID PRN (Reason: itching) 7 Days Qty: 45 0RF clotrimazole 1 % cream 1 appful vaginal BEDTIME 7 Days Qty: 45 4RF Rx Instructions: use for any recurrent yeast infections
[2022-04-04 23:42] VITALS: O2SAT 98
== END 2022-04-05 00:06 | disposition home or self-care (01) ==
PROVIDERS: Emergency Provider Emergency Medicine; PCP Family Medicine
DX: U07.1 COVID-19 (principal); J02.9 Acute pharyngitis, unspecified; E11.22 Type 2 diabetes mellitus with diabetic chronic kidney disease; I12.9 Hypertensive chronic kidney disease with stage 1 through stage 4 chronic kidney disease, or unspecified chronic kidney disease; N18.30 Chronic kidney disease, stage 3 unspecified; E78.5 Hyperlipidemia, unspecified; Z87.891 Personal history of nicotine dependence; Z79.4 Long term (current) use of insulin; Z79.02 Long term (current) use of antithrombotics/antiplatelets
CPT/HCPCS: 71045; 87635; 87651; 99283; 99284

== ENCOUNTER → 2022-04-07 13:57 | Outpatient (BNVA) | payer OTHER, SELFPAY | PROVIDERS: PCP Family Medicine; Visit Provider Internal Medicine Endocrinology, Diabetes & Metabolism | DX: E11.22 Type 2 diabetes mellitus with diabetic chronic kidney disease (principal); N18.30 Chronic kidney disease, stage 3 unspecified; E11.65 Type 2 diabetes mellitus with hyperglycemia; Z79.4 Long term (current) use of insulin | CPT/HCPCS: 82947; 99212 ==

== ENCOUNTER 2022-05-07 09:21 | Emergency (ER) | payer OTHER, SELFPAY ==
--- NOTE | ~2022-05-07 | CT_ITS ---
EXAMINATION: CT CHEST WITHOUT IV CONTRAST CT ABDOMEN AND PELVIS WITHOUT IV CONTRAST CLINICAL INFORMATION: Thoracic pain and hypertension. Lower spinal pain. COMPARISON: Chest CT from 01/17/2021. CT abdomen/pelvis from 07/03/2021. TECHNIQUE: Noncontrast multidetector CT imaging examination of the chest, abdomen and pelvis was performed. Axial images are displayed at 0.6 mm and 5 mm slice thickness. Coronal and sagittal reformatted images were generated at the technologist's workstation and submitted for review. This CT examination was performed using dose optimization techniques as appropriate, variously including the following: *Automated exposure control *Adjustment of mA and/or kV according to patient size (this includes techniques or standardized protocols for targeted exams where dose is matched to indication/reason for exam; i.e. extremities or head) *Use of iterative reconstruction technique DLP: 327 mGy-cm for the chest CT 995 mGy-cm for the abdomen/pelvis CT FINDINGS: CHEST - LUNGS AND PLEURA: Trachea and central airways are widely patent and normal in caliber. Previously observed patchy airspace and groundglass infiltrates seen on 01/18/2021 have resolved. No new pneumonia. No pleural effusion. Old 0.3 cm calcified granuloma is present in the posterior left lower lobe. No interval development of a suspicious lung nodule or mass. MEDIASTINUM/LOWER NECK: Mild cardiomegaly. Mitral valve annulus is calcified. Three-vessel coronary artery atherosclerotic calcification. Moderate atherosclerosis of the thoracic aorta. No acute intramural hematoma or aneurysm. Pulmonary arteries are normal in caliber. No pericardial effusion. The esophagus has normal wall thickness. Thyroid gland is grossly unremarkable. There is either a very small hiatal hernia or mild gaseous distention of the esophageal vestibule. LYMPHATICS: No pathologic sized axillary, hilar or mediastinal lymph nodes. CHEST WALL/BONES: Obese body habitus. No chest wall mass. Chronic multilevel degenerative arthropathy and mild dextroscoliosis of the thoracic spine. Thoracic vertebra have well preserved height and alignment. No suspicious bone lesions. ABDOMEN AND PELVIS - HEPATOBILIARY: Liver has normal size, contour and attenuation. Gallbladder is surgically absent. Common bile duct is chronically dilated up to approximately 1.2 cm maximum diameter, unchanged whereas 01/18/2021. PANCREAS: Moderate atrophy of the pancreas. No pancreatic edema or mass. SPLEEN: Normal. ADRENAL GLANDS: Normal. KIDNEYS AND URETERS: Kidneys are normal in size. No renal stones or hydroureteronephrosis. BOWEL AND PERITONEUM: No dilated bowel loops. The appendix is normal. Multiple diverticula of the descending and sigmoid colon without diverticulitis. Chronic mild haziness of central mesenteric fat (i.e., mild mesenteric panniculitis). ABDOMINAL WALL: Chronic diastases of rectus abdominis muscles. Minimal protrusion of fat into the umbilicus. VESSELS: There is extensive atherosclerotic calcification of the abdominal aorta and branch vessels. The calcified atherosclerotic plaque chronically causes severe stenosis of the proximal SMA. No aortic aneurysm. No retroperitoneal hematoma. LYMPH NODES: No pathologic sized lymph nodes in the abdomen or pelvis. No inguinal lymphadenopathy. BLADDER AND PELVIC VISCERA: Urinary bladder has normal wall thickness. There are myometrial vascular calcifications. No evidence of uterine or adnexal mass. No pelvic free fluid. MUSCULOSKELETAL: Chondrocalcinosis of the chronically degenerated spine. Findings in the lumbar spine include severe facet osteoarthritis, vacuum disc degenerative change and grade 1 anterolisthesis at L5-S1. At L4-L5, there is mild disc bulge, facet hypertrophy and mild canal stenosis. CT/CT abdomen pelvis wo con IMPRESSION: * No evidence of recurrent pneumonia. * Coronary artery atherosclerotic disease and cardiomegaly. However, no pulmonary edema or pleural effusion. * Atherosclerotic disease of thoracic and abdominal aorta without aneurysm. * Common bile duct is chronically dilated, status post cholecystectomy. * Diverticulosis of the colon without diverticulitis. * No acute abnormalities in the degenerated lumbar spine compared to 07/03/2021. No compression fractures.
--- NOTE | ~2022-05-07 | CT_ITS ---
EXAMINATION: CT HEAD WITHOUT CONTRAST CLINICAL INFORMATION: Headache, hypertension COMPARISON: CT head from 07/03/2021 TECHNIQUE: Contiguous axial imaging was performed from the skull base to vertex without intravenous administration of contrast. This CT examination was performed using dose optimization techniques as appropriate, variously including the following: *Automated exposure control *Adjustment of mA and/or kV according to patient size (this includes techniques or standardized protocols for targeted exams where dose is matched to indication/reason for exam; i.e. extremities or head) *Use of iterative reconstruction technique DLP: 671 mGy-cm FINDINGS: There is no evidence of acute intracranial hemorrhage or territorial infarction. No abnormal mass effect or midline shift is seen. Lopez to white matter differentiation is well preserved. No extra-axial fluid collections are identified. The ventricles are normal in size. There is no abnormal attenuation within the brain parenchyma. The osseous structures and soft tissues are normal. The mastoid air cells and visualized portions of the paranasal sinuses are well aerated. CT/CT head/brain wo con IMPRESSION: No acute intracranial pathology.
--- NOTE | 2022-05-07 09:37 | ED.GENADULT ---
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 Patient states that she has been having intermittent headaches and back pain that she believes is because her blood pressure has been high. Patient states that she has been taking her medication as prescribed and has not missed any doses. Patient denies any dizziness, lightheadedness, abdominal pain, nausea, vomiting, fever, chills, blurry vision, double vision, loss of vision, chest pain, difficulty breathing, shortness of breath, night sweats, pain with urination, increased urinary frequency, increased urinary urgency, blood in her urine or stool, syncope or a near syncopal episode, recent trauma or falls, bowel incontinence, bladder incontinence, bowel retention, bladder retention, or any other complaints at this time. Onset (ago): month(s) Location: head Severity: mild Severity scale (1-10): 4 Quality: dull Pain Consistency: intermittent Relieving factors: none Exacerbating factors: none Associated symptoms: denies other symptoms Treatments prior to arrival: none Related Data Home Medications Medication Instructions Recorded Confirmed atorvastatin 40 mg tablet 40 mg PO BEDTIME 01/18/21 12/03/21 carvedilol 25 mg tablet 25 mg PO BID 01/18/21 08/04/21 cilostazol 100 mg tablet 100 mg PO BID 01/18/21 08/04/21 montelukast 10 mg tablet 10 mg PO BEDTIME 01/18/21 08/04/21 sucralfate 1 gram tablet 2 g PO DAILY 01/18/21 08/04/21 gabapentin 300 mg capsule 300 mg PO BEDTIME 02/20/21 08/04/21 albuterol sulfate 90 mcg/actuation 2 puff PO Q4-6H PRN dyspnea 08/21/21 aerosol inhaler (Ventolin HFA) amlodipine 2.5 mg tablet 2.5 mg PO DAILY 08/21/21 12/03/21 aspirin 81 mg tablet,delayed 81 mg PO BEDTIME 08/21/21 12/03/21 release brimonidine 0.2 % eye drops 0 drp ophthalmic (eye) 08/21/21 clonidine HCl 0.1 mg tablet 0.1 mg PO BEDTIME 08/21/21 cyanocobalamin (vitamin B-12) 1,000 mcg PO DAILY 08/21/21 1,000 mcg tablet ergocalciferol (vitamin D2) 1,250 1,250 mcg PO QWEEK 08/21/21 mcg (50,000 unit) capsule folic acid 1 mg tablet 1 mg PO QAM 08/21/21 hydralazine 25 mg tablet 25 mg PO BID 08/21/21 latanoprost 0.005 % eye drops 0 drp ophthalmic (eye) 08/21/21 pantoprazole 40 mg tablet,delayed 40 mg PO DAILY 08/21/21 release Previous Rx's Medication Instructions Recorded furosemide 40 mg tablet 40 mg PO DAILY #30 tabs 02/25/21 mecobalamin (vitamin B12) 1,000 1,000 mcg sublingual DAILY #30 tabs 02/25/21 mcg disintegrating tablet,sublingual omeprazole 40 mg capsule,delayed 40 mg PO DAILY #30 caps 02/25/21 release budesonide-formoterol HFA 160 2 puff inhalation BID 30 days 03/20/21 mcg-4.5 mcg/actuation aerosol #10.2 grams inhaler (Symbicort) mometasone-formoterol HFA 200 2 puff inhalation Q12H 30 days #13 03/21/21 mcg-5 mcg/actuation aerosol grams inhaler (Dulera) FreeStyle Lite Meter #1 ea 04/02/21 (blood-glucose meter) blood sugar diagnostic (Accu-Chek 1 strip miscellaneous TID for 04/03/21 Maryann Plus test strips) diabetes mellitus 30 days #100 strips blood-glucose meter (Accu-Chek 1 ea miscellaneous . 3 times a day 04/03/21 Maryann Plus Meter) 30 days #1 ea lancets (Accu-Chek Softclix 1 ea miscellaneous TID for 04/03/21 Lancets) diabetes mellitus 30 days #100 ea clotrimazole 1 % vaginal cream 1 appful vaginal BEDTIME 7 days 08/04/21 #45 grams Novolog Flexpen U-100 Insulin 100 5 - 10 unit (0.05 - 0.1 mL) subcut 12/29/21 unit/mL (3 mL) subcutaneous TID 30 days #15 mL (insulin aspart U-100) FreeStyle Lancets 28 gauge #300 ea 01/15/22 (lancets) Magic Mouthwash 10 ml PO QID PRN mouth pain 14 02/12/22 Diphen/Lido/Antacid 1:1:1 240 mL days #240 mL suspension blood sugar diagnostic (FreeStyle #300 ea 03/03/22 Lite Strips) insulin glargine U-300 conc 300 40 unit (0.1333 mL) subcut DAILY 03/19/22 unit/mL (1.5 mL) subcutaneous pen 90 days #11.997 mL (Toujeo SoloStar U-300 Insulin) linagliptin 5 mg tablet 5 mg PO DAILY 90 days #90 tabs 03/19/22 clotrimazole-betamethasone 1 1 appl topical BID PRN itching 7 03/20/22 %-0.05 % topical cream days #45 grams amlodipine 10 mg tablet 10 mg PO DAILY #30 tabs 04/04/22 pen needle, diabetic 32 gauge x #400 ea 04/29/22 (BD Sia 2nd Gen Pen Needle) Allergies Allergy/AdvReac Type Severity Reaction Status Date / Time acetaminophen [Percocet] Allergy Intermediate Itching Verified 04/07/22 14:12 ibuprofen [From MOTRIN] Allergy Intermediate RASH Verified 04/07/22 14:12 Motrin Allergy Intermediate high blood Verified 04/07/22 14:12 pressure oxycodone [From PERCOCET] Allergy Intermediate ITCHING Verified 04/07/22 14:12 Review of Systems Constitutional: Constitutional: Reports no additional constitutional complaints, Denies chills, Denies fever(s), Reports headache(s) and Denies night sweats Eyes: Eyes: Reports no additional eye complaints, Denies blurry vision, Denies change in vision, Denies diplopia, Denies eye discharge, Denies loss of vision and Denies eye pain ENT: Denies dizziness and Reports headache(s) Cardiovascular: Cardiovascular: Reports no additional cardiovascular complaints, Denies chest pain, Denies lightheadedness, Denies Loss of Consciousness and Denies dyspnea Respiratory: Respiratory: Reports no additional respiratory complaints and Denies dyspnea Gastrointestinal: Gastrointestinal: Reports no additional gastrointestinal complaints, Denies abdominal pain, Denies melena, Denies hematochezia, Denies change in bowel habits and Denies change in stool character Genitourinary: Genitourinary: Denies hematuria, Denies urinary frequency, Denies dysuria, Denies urinary incontinence, Denies urinary hesitancy and Denies urinary urgency Musculoskeletal: Musculoskeletal: Reports no additional musculoskeletal complaints, Denies numbness and Denies tingling Neurologic: Denies dizziness, Reports headache(s), Denies loss of vision, Denies numbness and Denies tingling Psychiatric: Psychiatric: Reports no additional psychiatric complaints Endocrine: Endocrine: Reports no additional endocrine complaints Hematologic/Lymphatic: Hematologic/Lymphatic: Reports no additional hematologic/lymphatic complaints Allergic/Immunologic: Allergic/Immunologic: Reports no additional allergic/immunologic complaints [facility] Past Medical History Attestation statement: The following information was validated with the patient. 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, with long-term current use of insulin Vitamin D deficiency Surgical History History of breast lump/mass excision History of cholecystectomy History of tubal ligation Family History Family History Sister History of renal pelvis cancer Father Suicide Mother Lung disease Diabetes mellitus Social History Social History Household Members: Family Housing: House Do you presently have visiting nurse or other home services: Yes (peanut cleaner) Alcohol intake: never Patient Tobacco Use Status: Former Tobacco user Tobacco use type: Cigarette Years Smoked: 5 years Advance Directives: No Advance Directives Information Provided: No service: No Current occupational status: unemployed Gender identity: Female Physical Exam ED Vital Signs: Vital Signs - 24 hr 05/07/22 09:45 05/07/22 10:00 05/07/22 12:37 Temperature 97.7 F 97.7 F Pulse Rate 74 72 70 Respiratory Rate 18 18 16 Blood Pressure 168/61 H 168/61 H 141/54 H Pulse Oximetry 98 96 98 Oxygen Delivery Method Room Air Room Air Room Air BMI result Body Mass Index 43.2 Const General: cooperative, no acute distress, alert and awake Nutritional Appearance: well nourished Orientation/consciousness: patient oriented x3 Limitations: no limitations HENMT Head: Yes normal to inspection and Yes atraumatic Ears: hearing grossly normal bilaterally and external ears normal General nose exam: Normal external nose present, no nasal discharge noted and no epistaxis Face and sinus: Yes normal facial exam, No abrasion and No laceration Mouth: Normal oral and palatal mucosa present, no drooling and no muffled voice Eyes General: appearance normal, both eyes and all related structures Periorbital: periorbital findings normal Eyelids: Yes eyelids normal Conjunctivae: conjunctivae normal Pupils: Equal, round and reactive pupils present EOM: EOMs intact bilaterally Neck Neck: Yes normal visual inspection, Yes full ROM and Yes no lymphadenopathy Chest Chest palpation & inspection: normal inspection of the chest Resp Effort & Inspection: normal respiratory effort and able to speak in complete sentences Auscultation: clear to auscultation bilaterally Cardio Rate: regular rate Rhythm: regular rhythm GI Inspection: Yes normal to inspection Palpation (GI): Soft to palpation, not firm, nontender and no guarding Neuro General: patient oriented x3 and moves all extremities Cranial nerves: Yes Equal, round and reactive pupils present Cognition (Neuro): normal cognition Motor exam (neuro): 5/5 motor strength present throughout Sensory Exam: Normal double simultaneous stimulation for sensation Coordination: [id number] test normal Extrem General: Yes normal to inspection, Yes full ROM and Yes capillary refill normal Psych Appearance: grossly normal Mental Status: mental status grossly normal Affect: normal affect Attitude: cooperative Thought process: Normal thought process present Thought content: Normal thought content present Insight: Good insight present (Psych) Medical Decision Making MDM Narrative Medical decision making narrative: Patient is a 77 year old female presenting to the emergency department today with possible elevated blood pressure. Patient's physical exam was unremarkable. Patient's blood work was unremarkable. Patient's EKG was unremarkable. Patient's head, chest, abdomen/pelvis CTs showed no acute process. I explained my physical exam findings as well as all test results to the patient. I answered all questions asked by the patient. I stressed the importance of the patient taking her medication as prescribed. I stressed the importance of the patient following up with her primary care provider. I stressed the importance of the patient returning to the emergency department immediately if her symptoms were to worsen or if she were to develop any dizziness, shortness of breath, difficulty breathing, chest pain, blurry vision, loss of vision, nausea, vomiting, abdominal pain, fever, chills, back pain, or any other complaints. Patient verbalized agreement and understanding with this treatment plan and discharge. Differential Diagnosis Differential Diagnosis: history of hypertension Medical Records Medical records reviewed: Yes I reviewed the patient's medical records. Lab Data Lab results reviewed: Yes I reviewed the patient's lab results. Result diagrams: 05/07/22 10:41 05/07/22 10:41 Labs: Lab Results 05/07/22 05/07/22 05/07/22 Range/Units 10:41 10:41 10:41 WBC 12.2 H (4.8-10.8) X10*3/uL RBC 4.66 (4.20-5.50) X10*6/uL Hgb 11.0 L (12.0-16.0) g/dl Hct 34.5 L (37.0-47.0) % MCV 74.0 L (80.0-98.0) fL MCH 23.6 L (27.0-33.0) pg MCHC 31.9 (31.0-35.0) g/dl RDW 17.0 H (11.0-16.0) % Plt Count 364 (160-400) X10*3/uL MPV 9.4 (9.4-12.3) fL Immature Gran % (Auto) 0.9 H (0.0-0.4) % Neut % (Auto) 75.1 H (45-73) % Lymph % (Auto) 15.2 L (20-40) % Riley % (Auto) 5.8 (2-11) % Eos % (Auto) 2.4 (0-4) % Baso % (Auto) 0.6 (0-2) % Lymph # (Auto) 1.9 (1.2-4.9) X10*3/uL Riley # (Auto) 0.7 (0.1-1.2) X10*3/uL Eos # (Auto) 0.3 (0.0-0.4) X10*3/uL Baso # (Auto) 0.1 (0.0-0.2) X10*3/uL Abs Immat Gran (auto) 0.11 H (0.00-0.03) X10*3/uL Absolute Neuts (auto) 9.2 H (2.0-8.3) x10*3/uL Absolute Nucleated RBC 0.000 (0.0-0.012) X10*3/uL Nucleated RBC % (auto) 0.0 (0.0-0.2) /100WBC Sodium 143 (135-145) mmol/L Potassium 3.6 (3.3-5.1) mmol/L Chloride 107 (96-108) mmol/L Carbon Dioxide 24 (22-29) mmol/L Anion Gap 16 (12-20) BUN 27 H (9-16) mg/dL Creatinine 1.38 (0.5-1.4) mg/dL Estim Creat Clear Calc 32.0 Estimated GFR 37 POC Glucose (60-115) mg/dL Random Glucose 152 H (60-115) mg/dL Calcium 9.1 (8.4-10.2) mg/dL Magnesium 2.0 (1.6-2.6) mg/dL Total Bilirubin 0.5 (0.0-1.0) mg/dL AST 13 (5-31) U/L ALT 9 (0-31) U/L Alkaline Phosphatase 122 H (39-117) U/L Troponin I High Sens 9.9 (<3.5-17.0) ng/L Total Protein 7.3 (6.5-8.0) g/dL Albumin 3.5 (3.5-5.0) g/dL 05/07/22 Range/Units 11:59 WBC (4.8-10.8) X10*3/uL RBC (4.20-5.50) X10*6/uL Hgb (12.0-16.0) g/dl Hct (37.0-47.0) % MCV (80.0-98.0) fL MCH (27.0-33.0) pg MCHC (31.0-35.0) g/dl RDW (11.0-16.0) % Plt Count (160-400) X10*3/uL MPV (9.4-12.3) fL Immature Gran % (Auto) (0.0-0.4) % Neut % (Auto) (45-73) % Lymph % (Auto) (20-40) % Riley % (Auto) (2-11) % Eos % (Auto) (0-4) % Baso % (Auto) (0-2) % Lymph # (Auto) (1.2-4.9) X10*3/uL Riley # (Auto) (0.1-1.2) X10*3/uL Eos # (Auto) (0.0-0.4) X10*3/uL Baso # (Auto) (0.0-0.2) X10*3/uL Abs Immat Gran (auto) (0.00-0.03) X10*3/uL Absolute Neuts (auto) (2.0-8.3) x10*3/uL Absolute Nucleated RBC (0.0-0.012) X10*3/uL Nucleated RBC % (auto) (0.0-0.2) /100WBC Sodium (135-145) mmol/L Potassium (3.3-5.1) mmol/L Chloride (96-108) mmol/L Carbon Dioxide (22-29) mmol/L Anion Gap (12-20) BUN (9-16) mg/dL Creatinine (0.5-1.4) mg/dL Estim Creat Clear Calc Estimated GFR POC Glucose 103 (60-115) mg/dL Random Glucose (60-115) mg/dL Calcium (8.4-10.2) mg/dL Magnesium (1.6-2.6) mg/dL Total Bilirubin (0.0-1.0) mg/dL AST (5-31) U/L ALT (0-31) U/L Alkaline Phosphatase (39-117) U/L Troponin I High Sens (<3.5-17.0) ng/L Total Protein (6.5-8.0) g/dL Albumin (3.5-5.0) g/dL Imaging Data CT scan - head: Attestation: I personally reviewed and interpreted this imaging study as follows: My impression: No acute process. Radiologist's impression: EXAMINATION: CT HEAD WITHOUT CONTRAST CLINICAL INFORMATION: Headache, hypertension? COMPARISON: CT head from 07/03/2021 TECHNIQUE: Contiguous axial imaging was performed from the skull base to vertex without intravenous administration of contrast. This CT examination was performed using dose optimization techniques as appropriate, variously including the following: *Automated exposure control *Adjustment of mA and/or kV according to patient size (this includes techniques or standardized protocols for targeted exams where dose is matched to indication/reason for exam; i.e. extremities or head) *Use of iterative reconstruction technique DLP: 671 mGy-cm FINDINGS: There is no evidence of acute intracranial hemorrhage or territorial infarction. No abnormal mass effect or midline shift is seen. Lopez to white matter differentiation is well preserved. No extra-axial fluid collections are identified. The ventricles are normal in size. There is no abnormal attenuation within the brain parenchyma. The osseous structures and soft tissues are normal. The mastoid air cells and visualized portions of the paranasal sinuses are well aerated. ? CT/CT head/brain wo con IMPRESSION: No acute intracranial pathology. Dictated By: Jeferson Gonzalez MD Signed By: Electronically signed by Jeferson Gonzalez MD 05/07/[address] Chest, abdomen, and pelvis: Attestation: I personally reviewed and interpreted this imaging study as follows: My impression: No acute process. Radiologist's impression: EXAMINATION: CT CHEST WITHOUT IV CONTRAST CT ABDOMEN AND PELVIS WITHOUT IV CONTRAST CLINICAL INFORMATION: Thoracic pain and hypertension. Lower spinal pain. COMPARISON: Chest CT from 01/17/2021. CT abdomen/pelvis from 07/03/2021. TECHNIQUE: Noncontrast multidetector CT imaging examination of the chest, abdomen and pelvis was performed. Axial images are displayed at 0.6 mm and 5 mm slice thickness. Coronal and sagittal reformatted images were generated at the technologist's workstation and submitted for review.? This CT examination was performed using dose optimization techniques as appropriate, variously including the following: *Automated exposure control *Adjustment of mA and/or kV according to patient size (this includes techniques or standardized protocols for targeted exams where dose is matched to indication/reason for exam; i.e. extremities or head) *Use of iterative reconstruction technique DLP: 327 mGy-cm for the chest CT 995 mGy-cm for the abdomen/pelvis CT FINDINGS: CHEST - LUNGS AND PLEURA:? Trachea and central airways are widely patent and normal in caliber. Previously observed patchy airspace and groundglass infiltrates seen on 01/18/2021 have resolved. No new pneumonia. No pleural effusion. Old 0.3 cm calcified granuloma is present in the posterior left lower lobe. No interval development of a suspicious lung nodule or mass. MEDIASTINUM/LOWER NECK: Mild cardiomegaly. Mitral valve annulus is calcified. Three-vessel coronary artery atherosclerotic calcification. Moderate atherosclerosis of the thoracic aorta. No acute intramural hematoma or aneurysm. Pulmonary arteries are normal in caliber. No pericardial effusion. The esophagus has normal wall thickness. Thyroid gland is grossly unremarkable. There is either a very small hiatal hernia or mild gaseous distention of the esophageal vestibule. LYMPHATICS: No pathologic sized axillary, hilar or mediastinal lymph nodes. CHEST WALL/BONES: Obese body habitus. No chest wall mass. Chronic multilevel degenerative arthropathy and mild dextroscoliosis of the thoracic spine. Thoracic vertebra have well preserved height and alignment. No suspicious bone lesions. ABDOMEN AND PELVIS - HEPATOBILIARY: Liver has normal size, contour and attenuation. Gallbladder is surgically absent. Common bile duct is chronically dilated up to approximately 1.2 cm maximum diameter, unchanged whereas 01/18/2021. PANCREAS: Moderate atrophy of the pancreas. No pancreatic edema or mass. SPLEEN: Normal. ADRENAL GLANDS: Normal. KIDNEYS AND URETERS: Kidneys are normal in size. No renal stones or hydroureteronephrosis. BOWEL AND PERITONEUM: No dilated bowel loops. The appendix is normal. Multiple diverticula of the descending and sigmoid colon without diverticulitis. Chronic mild haziness of central mesenteric fat (i.e., mild mesenteric panniculitis). ABDOMINAL WALL: Chronic diastases of rectus abdominis muscles. Minimal protrusion of fat into the umbilicus. VESSELS: There is extensive atherosclerotic calcification of the abdominal aorta and branch vessels. The calcified atherosclerotic plaque chronically causes severe stenosis of the proximal SMA. No aortic aneurysm. No retroperitoneal hematoma. LYMPH NODES: No pathologic sized lymph nodes in the abdomen or pelvis. No inguinal lymphadenopathy. BLADDER AND PELVIC VISCERA: Urinary bladder has normal wall thickness. There are myometrial vascular calcifications. No evidence of uterine or adnexal mass. No pelvic free fluid. MUSCULOSKELETAL: Chondrocalcinosis of the chronically degenerated spine. Findings in the lumbar spine include severe facet osteoarthritis, vacuum disc degenerative change and grade 1 anterolisthesis at L5-S1. At L4-L5, there is mild disc bulge, facet hypertrophy and mild canal stenosis. CT/CT chest wo con IMPRESSION: *? No evidence of recurrent pneumonia. *? Coronary artery atherosclerotic disease and cardiomegaly. However, no pulmonary edema or pleural effusion. *? Atherosclerotic disease of thoracic and abdominal aorta without aneurysm. *? Common bile duct is chronically dilated, status post cholecystectomy. *? Diverticulosis of the colon without diverticulitis.? *? No acute abnormalities in the degenerated lumbar spine compared to 07/03/2021. No compression fractures. Dictated By: Surendra Olmos MD Signed By: Electronically signed by Surendra Olmos MD 05/07/22 1311 ECG Data Attestation: I personally reviewed and interpreted this ECG as follows: Prior ECG tracings: available for review Interpretation: Vent. Rate: 067 BPM ? ? Atrial Rate: 067 BPM P-R Int: 126 ms? QRS Dur: 096 ms QT Int: 398 ms ? ? ? P-R-T Axes: 036 005 141 degrees QTc Int: 420 ms ? Normal sinus rhythm Left ventricular hypertrophy with repolarization abnormality ([place] product) Abnormal ECG When compared with ECG of 03-JUL-2021 14:35, No significant change was found DD/ 1002 Discharge Plan Discharge Clinical Impression: Hypertension Patient Disposition: Home, Self-Care Instructions: Hypertension (ED) Additional Instructions: Follow up with your primary care provider. Return to the emergency department immediately if your symptoms worsen or if you develop any dizziness, shortness of breath, difficulty breathing, chest pain, blurry vision, loss of vision, nausea, vomiting, abdominal pain, fever, chills, back pain, or any other complaints. Prescriptions: No Action Dulera 200-5 mcg/actuation HFA aerosol inhaler 2 puff inhalation Q12H 30 Days Qty: 13 11RF (DME) blood-glucose meter [FreeStyle Lite Meter] Kit See Rx Instructions miscellaneous .MEDSUPPLY Qty: 1 0RF Rx Instructions: 4 times a day blood sugar diagnostic [Accu-Chek Maryann Plus test strp] Strip 1 strip miscellaneous TID 30 Days Qty: 100 6RF blood-glucose meter [Accu-Chek Maryann Plus Meter] Misc 1 ea miscellaneous . 3 times a day 30 Days Qty: 1 0RF lancets [Accu-Chek Softclix Lancets] Misc 1 ea miscellaneous TID 30 Days Qty: 100 11RF insulin aspart U-100 [Novolog Flexpen U-100 Insulin] 100 unit/mL (3 mL) insulin pen 5 - 10 unit subcut TID 30 Days Qty: 15 4RF (DME) lancets [FreeStyle Lancets] 28 gauge misc See Rx Instructions .MEDSUPPLY Qty: 300 2RF Rx Instructions: 3 times a day (DME) FreeStyle Lite Strips Strip See Rx Instructions .MEDSUPPLY Qty: 300 3RF Rx Instructions: 3times a day Toujeo SoloStar U-300 Insulin 300 unit/mL (1.5 mL) insulin pen 40 unit subcut DAILY 90 Days Qty: 11.997 1RF linagliptin 5 mg tablet 5 mg PO DAILY 90 Days Qty: 90 1RF (DME) pen needle, diabetic [BD Sia 2nd Gen Pen Needle] 32 gauge x 5/32 needle See Rx Instructions .MEDSUPPLY Qty: 400 4RF Rx Instructions: 5 times a day atorvastatin 40 mg Tablet 40 mg PO BEDTIME cilostazol 100 mg Tablet 100 mg PO BID carvedilol 25 mg Tablet 25 mg PO BID sucralfate 1 gram Tablet 2 g PO DAILY montelukast 10 mg Tablet 10 mg PO BEDTIME gabapentin 300 mg Capsule 300 mg PO BEDTIME furosemide 40 mg Tablet 40 mg PO DAILY Qty: 30 0RF Protocol: Hold for SBP< HOLD for SBP < : 90 mecobalamin (vitamin B12) 1,000 mcg tablet,disintegrating 1,000 mcg sublingual DAILY Qty: 30 0RF Rx Instructions: place tablet under tongue and allow to dissolve for at least30 secs before swallowing omeprazole 40 mg capsule,delayed release(DR/EC) 40 mg PO DAILY Qty: 30 0RF amlodipine 10 mg tablet 10 mg PO DAILY Qty: 30 0RF budesonide-formoterol [Symbicort] 160-4.5 mcg/actuation HFA aerosol inhaler 2 puff inhalation BID 30 Days Qty: 10.2 11RF amlodipine 2.5 mg tablet 2.5 mg PO DAILY pantoprazole 40 mg tablet,delayed release (DR/EC) 40 mg PO DAILY ergocalciferol (vitamin D2) 1,250 mcg (50,000 unit) capsule 1,250 mcg PO QWEEK hydralazine 25 mg tablet 25 mg PO BID cyanocobalamin (vitamin B-12) 1,000 mcg tablet 1,000 mcg PO DAILY clonidine HCl 0.1 mg tablet 0.1 mg PO BEDTIME brimonidine 0.2 % drops 0 drp ophthalmic (eye) latanoprost 0.005 % drops 0 drp ophthalmic (eye) albuterol sulfate [Ventolin HFA] 90 mcg/actuation HFA aerosol inhaler 2 puff PO Q4-6H PRN (Reason: dyspnea) folic acid 1 mg tablet 1 mg PO QAM aspirin 81 mg tablet,delayed release (DR/EC) 81 mg PO BEDTIME Magic Mouthwash Diphen/Lido/Antacid 1:1:1 240 mL suspension 10 ml PO QID PRN (Reason: mouth pain) 14 Days Qty: 240 0RF Rx Instructions: Lidocaine Viscous 2 % 80mL; diphenhydramine 12.5 mg/5 mL 80mL; aluminum-mag hydrox-simeth 463og-391mg-51ob/5mL 80mL clotrimazole-betamethasone 1-0.05 % cream 1 appl topical BID PRN (Reason: itching) 7 Days Qty: 45 0RF clotrimazole 1 % cream 1 appful vaginal BEDTIME 7 Days Qty: 45 4RF Rx Instructions: use for any recurrent yeast infections Referrals: Marycarmen Quijano MD [Primary Care Provider] - Print Language: Congolese
[2022-05-07 09:45] VITALS: BP 168/61; PULSE 74; RESP 18; TEMP 36.5; O2SAT 98; BMI 43.2
[2022-05-07 10:00] VITALS: BP 168/61; PULSE 72; RESP 18; TEMP 36.5; O2SAT 96
--- NOTE | 2022-05-07 10:06 | ECG_ITS ---
Test Reason : hypertension Blood Pressure : / mmHG Vent. Rate : 067 BPM Atrial Rate : 067 BPM P-R Int : 126 ms QRS Dur : 096 ms QT Int : 398 ms P-R-T Axes : 036 005 141 degrees QTc Int : 420 ms Normal sinus rhythm Left ventricular hypertrophy with repolarization abnormality ( Jose product ) Abnormal ECG When compared with ECG of 03-JUL-2021 14:35, No significant change was found Referred By: Constance Brewster Electronically Signed By:FRIDA MO MD
[2022-05-07 10:45] LABS: MANUAL DIFF FLAG NO
[2022-05-07 10:47] LABS: Basophils Absolute Auto 0.1 X10*3/uL (0.0-0.2); Basophils Percent Auto 0.6 % (0-2); Eosinophils Absolute Auto 0.3 X10*3/uL (0.0-0.4); Eosinophils Percent Auto 2.4 % (0-4); Hematocrit 34.5 % (37.0-47.0); Imm Gran Abs Auto 0.11 X10*3/uL (0.00-0.03); Imm Gran Pct Auto 0.9 % (0.0-0.4); Lymphocytes Absolute Auto 1.9 X10*3/uL (1.2-4.9); Lymphocytes Percent Auto 15.2 % (20-40); Mean Corpuscular HGB Conc 31.9 g/dl (31.0-35.0); Mean Corpuscular Hemoglobin 23.6 pg (27.0-33.0); Mean Platelet Volume 9.4 fL (9.4-12.3); Monocytes Absolute Auto 0.7 X10*3/uL (0.1-1.2); Monocytes Percent Auto 5.8 % (2-11); Neutrophils Absolute Auto 9.2 x10*3/uL (2.0-8.3); Neutrophils Percent Auto 75.1 % (45-73); Platelet Count 364 X10*3/uL (160-400); Red Blood Count 4.66 X10*6/uL (4.20-5.50); White Blood Count 12.2 X10*3/uL (4.8-10.8)
--- NOTE | 2022-05-07 11:01 | PC.NURSE ---
Pt alert, Kyrgyz speaking only accompanied by daughter. States that blood pressure taken at home was over 200 systolic, complains of 6/10 headache, chronic back pain. Pt denies any chest pain. B/P last taken in the 160s systolic
[2022-05-07 11:08] LABS: Troponin-I High Sensitivity 9.9 ng/L (<3.5-17.0)
[2022-05-07 11:09] LABS: Alanine Aminotransferase 9 U/L (0-31); Albumin Level 3.5 g/dL (3.5-5.0); Alkaline Phosphatase 122 U/L (39-117); Anion Gap 16 (12-20); Aspartate Amino Transferase 13 U/L (5-31); Bilirubin Total 0.5 mg/dL (0.0-1.0); Blood Urea Nitrogen 27 mg/dL (9-16); Calcium 9.1 mg/dL (8.4-10.2); Carbon Dioxide 24 mmol/L (22-29); Chloride 107 mmol/L (96-108); Estimated Glomerular Filt Rate 37; Glucose Random 152 mg/dL (60-115); Potassium 3.6 mmol/L (3.3-5.1); Sodium 143 mmol/L (135-145); Total Protein 7.3 g/dL (6.5-8.0)
[2022-05-07 12:03] LABS: Glucose, Whole Blood 103 mg/dL (60-115)
[2022-05-07 12:37] VITALS: BP 141/54; PULSE 70; RESP 16; O2SAT 98
== END 2022-05-07 15:22 | disposition home or self-care (01) ==
PROVIDERS: Physician Assistant Medical; Emergency Provider Internal Medicine; PCP Family Medicine
DX: R51.9 Headache, unspecified (principal); E11.22 Type 2 diabetes mellitus with diabetic chronic kidney disease; I12.9 Hypertensive chronic kidney disease with stage 1 through stage 4 chronic kidney disease, or unspecified chronic kidney disease; N18.30 Chronic kidney disease, stage 3 unspecified; E78.5 Hyperlipidemia, unspecified; E66.9 Obesity, unspecified; Z68.41 Body mass index [BMI] 40.0-44.9, adult; Z87.891 Personal history of nicotine dependence; Z79.4 Long term (current) use of insulin; Z79.82 Long term (current) use of aspirin; Z79.02 Long term (current) use of antithrombotics/antiplatelets
CPT/HCPCS: 36415; 70450; 71250; 74176; 80053; 82947; 83735; 84484; 85025; 93005; 99284

== ENCOUNTER → 2022-06-03 12:45 | Outpatient (BNVA) | payer OTHER, SELFPAY | PROVIDERS: PCP Family Medicine; Visit Provider Registered Nurse Diabetes Educator | DX: E11.42 Type 2 diabetes mellitus with diabetic polyneuropathy (principal); Z79.4 Long term (current) use of insulin | CPT/HCPCS: 99211 ==

== ENCOUNTER 2022-06-11 11:59 | Outpatient (REF) | payer OTHER, SELFPAY | END 2022-06-11 12:00 | disposition home or self-care (01) | LOC: HO.CT 11:59 | PROVIDERS: PCP Family Medicine; Visit Provider Family Medicine | DX: Z13.89 Encounter for screening for other disorder (principal) ==

== ENCOUNTER → 2022-06-18 10:05 | Outpatient (BNVA) | payer OTHER, SELFPAY | PROVIDERS: PCP Family Medicine; Visit Provider Hospitalist | DX: J45.40 Moderate persistent asthma, uncomplicated (principal); G47.33 Obstructive sleep apnea (adult) (pediatric); I35.0 Nonrheumatic aortic (valve) stenosis | CPT/HCPCS: 99212 ==

== ENCOUNTER 2022-06-26 10:49 | Outpatient (REF) | payer OTHER, SELFPAY ==
--- NOTE | ~2022-06-26 | XR_ITS ---
EXAMINATION: XR ABDOMEN KUB CLINICAL INDICATION: Abdominal pain. COMPARISON: 03/29/2019 abdominal radiographs. TECHNIQUE: AP view of the abdomen. FINDINGS: There is a nonobstructive bowel gas pattern. Mild gas and stool are seen within the colon distally to the rectum. Surgical clips overlie the right upper quadrant. No radiopaque renal calculi are seen. Moderate atherosclerosis in the splenic artery. Mild to moderate multilevel degenerative changes in the thoracolumbar spine. XR/XR KUB IMPRESSION: Nonobstructive bowel gas pattern.
[2022-06-26 11:53] LABS: Appearance Urine Clear; Color Urine Yellow; Glucose Urine UA Negative (Negative); Leukocyte Esterase Urine Trace (Negative); Nitrite Urine Negative (Negative); UMIC TRIGGER UACC YES; Urine Blood Negative (Negative); Urine Ketones Negative (Negative); Urine Protein 100 (2+) mg/dL (Neg-Trace)
[2022-06-26 11:59] LABS: Bacteria Urine None Seen (None Seen); RBC Urine 0-2 /HPF (0-2); Squamous Epithelial Cell Urine 0-2 /HPF (0-2); WBC Urine 0-5 /HPF (0-5)
== END 2022-06-26 10:50 | disposition home or self-care (01) ==
LOC: HO.LAB 10:49
PROVIDERS: PCP Physician Assistant; Visit Provider Physician Assistant
DX: R10.9 Unspecified abdominal pain (principal)
CPT/HCPCS: 74018; 81001

== ENCOUNTER 2022-07-01 08:16 | Outpatient (REF) | payer OTHER, SELFPAY ==
--- NOTE | ~2022-07-01 | CT_ITS ---
EXAMINATION: CT ABDOMEN AND PELVIS WITH CONTRAST CLINICAL INFORMATION: Abdominal pain COMPARISON: Previous CT of the abdomen and pelvis May 2022 and KUB from earlier the same day TECHNIQUE: Multidetector volumetric images were obtained from the superior aspect of the liver through the pubic symphysis following administration 85 mL of Omnipaque 350 intravenous contrast. Sagittal and coronal reformatted images were obtained on the technologist's workstation. Oral contrast: Yes This CT examination was performed using dose optimization techniques as appropriate, variously including the following: *Automated exposure control *Adjustment of mA and/or kV according to patient size (this includes techniques or standardized protocols for targeted exams where dose is matched to indication/reason for exam; i.e. extremities or head) *Use of iterative reconstruction technique DLP: 718 mGy-cm FINDINGS: LUNG BASES: There are small bilateral pleural effusions and bilateral atelectasis or small infiltrates, right greater than left. This is new or increased from May 2022 exam. The heart is slightly enlarged and there is coronary artery and aortic valve calcification. LIVER, GALLBLADDER, AND BILIARY TREE: The liver is slightly low in attenuation questionable for fatty infiltration. The gallbladder has been removed. There is no intrahepatic biliary duct dilatation. There is a mild extrahepatic biliary duct dilatation that appears unchanged. PANCREAS: Unremarkable. SPLEEN: Unremarkable. ADRENAL GLANDS: Unremarkable. KIDNEYS AND URETERS: There is a 2 cm low-attenuation lesion in the posterior right kidney. Following IV contrast HU 33-35, ? complex cyst. This is not clearly appreciated on old exams. There are additional smaller simple appearing right renal cysts. There are several small low-attenuation lesions in the left kidney that measure less than 5 mm and are difficult to characterize. Kidneys are otherwise unremarkable. BLADDER: Unremarkable. GASTROINTESTINAL TRACT: There is diverticulosis of the colon. There is stool throughout the colon suggestive of constipation. Small and large bowel are otherwise unremarkable. The appendix is unremarkable. The stomach is unremarkable. ABDOMINAL WALL: There is diastasis of the rectus muscles and small umbilical hernia containing fat. There is subcutaneous edema of the lower anterior abdominal wall. LYMPH NODES: Normal. VASCULAR: There is severe atherosclerotic disease. PELVIC VISCERA: Unremarkable. OSSEOUS STRUCTURES: There are degenerative changes of the spine. CT/CT abdomen pelvis w IV con IMPRESSION: Diverticulosis and constipation. Bilateral renal cysts. Probable 2 cm complex cyst in the upper pole of the right kidney. This is new or increased from previous exams and imaging follow-up recommended. Severe atherosclerotic disease. New small bilateral pleural effusions and atelectasis or small infiltrates, right greater than left. Fleischner guidelines were followed.
[2022-07-01] MEDS: iohexoL 350 MG/ML 100 ML INFUS..BTL IV (12:05)
[2022-07-01] MEDS: Barium Sulfate Oral (Vanilla) 450 ML ORAL.SUSP 900 ML PO (12:06)
== END 2022-07-01 08:17 | disposition home or self-care (01) ==
LOC: HO.CT 08:16
PROVIDERS: Visit Provider Family Medicine
DX: R10.9 Unspecified abdominal pain (principal)
CPT/HCPCS: 74177; Q9967

== ENCOUNTER 2022-07-01 08:47 | Outpatient (REF) | payer OTHER, SELFPAY ==
[2022-07-01 11:28] LABS: Glucose, Whole Blood 141 mg/dL (60-115)
== END 2022-07-01 08:48 | disposition home or self-care (01) ==
LOC: HO.MDS 08:47
PROVIDERS: Visit Provider Family Medicine
DX: Z01.818 Encounter for other preprocedural examination (principal); R10.11 Right upper quadrant pain; E11.65 Type 2 diabetes mellitus with hyperglycemia; E11.22 Type 2 diabetes mellitus with diabetic chronic kidney disease; E11.42 Type 2 diabetes mellitus with diabetic polyneuropathy; E11.21 Type 2 diabetes mellitus with diabetic nephropathy; I13.10 Hypertensive heart and chronic kidney disease without heart failure, with stage 1 through stage 4 chronic kidney disease, or unspecified chronic kidney disease; N18.30 Chronic kidney disease, stage 3 unspecified; E66.9 Obesity, unspecified; G47.33 Obstructive sleep apnea (adult) (pediatric); Z68.41 Body mass index [BMI] 40.0-44.9, adult; Z79.4 Long term (current) use of insulin; Z99.89 Dependence on other enabling machines and devices
CPT/HCPCS: 82947; 96360; 96361

== ENCOUNTER 2022-07-06 15:13 | Outpatient (REF) | payer OTHER, SELFPAY ==
--- NOTE | ~2022-07-06 | XR_ITS ---
EXAMINATION: XR CHEST CLINICAL INFORMATION: Heart valve disease COMPARISON: Previous chest x-ray most recent April [address] May 2022 TECHNIQUE: 2 views of the chest were obtained. FINDINGS: The cardiac silhouette is slightly enlarged. There is pulmonary venous redistribution, increased perihilar markings and small right pleural effusion. Findings are suggestive of mild CHF. There is no pneumothorax. There are degenerative changes of the spine. XR/XR chest 2V IMPRESSION: Mild CHF new from April and May 2022 exams.
== END 2022-07-06 15:14 | disposition home or self-care (01) ==
LOC: HO.XRAY 15:13
PROVIDERS: Absent Provider Family Medicine; PCP Family Medicine; Visit Provider Emergency Medicine
DX: R06.02 Shortness of breath (principal); I39 Endocarditis and heart valve disorders in diseases classified elsewhere
CPT/HCPCS: 71046

== ENCOUNTER 2022-07-09 09:59 | Outpatient (REF) | payer OTHER, SELFPAY ==
[2022-07-09 10:42] LABS: MANUAL DIFF FLAG NO
[2022-07-09 10:55] LABS: Basophils Absolute Auto 0.1 X10*3/uL (0.0-0.2); Basophils Percent Auto 0.7 % (0-2); Eosinophils Absolute Auto 0.3 X10*3/uL (0.0-0.4); Eosinophils Percent Auto 2.4 % (0-4); Hemoglobin 11.1 g/dl (12.0-16.0); Imm Gran Abs Auto 0.03 X10*3/uL (0.00-0.03); Imm Gran Pct Auto 0.3 % (0.0-0.4); Lymphocytes Absolute Auto 1.7 X10*3/uL (1.2-4.9); Lymphocytes Percent Auto 16.6 % (20-40); Mean Corpuscular HGB Conc 31.7 g/dl (31.0-35.0); Mean Corpuscular Hemoglobin 23.8 pg (27.0-33.0); Mean Corpuscular Volume 74.9 fL (80.0-98.0); Mean Platelet Volume 9.2 fL (9.4-12.3); Monocytes Absolute Auto 0.7 X10*3/uL (0.1-1.2); Monocytes Percent Auto 6.6 % (2-11); Neutrophils Absolute Auto 7.5 x10*3/uL (2.0-8.3); Neutrophils Percent Auto 73.4 % (45-73); Platelet Count 352 X10*3/uL (160-400); Red Blood Count 4.67 X10*6/uL (4.20-5.50); Red Cell Distribution Width 16.8 % (11.0-16.0); White Blood Count 10.3 X10*3/uL (4.8-10.8)
[2022-07-09 11:03] LABS: INTERNATIONAL NORM RATIO 1.1 (0.9-1.1); Prothrombin Time 12.3 SEC (10.0-13.1)
[2022-07-09 11:23] LABS: Estimated Average Glucose 151 mg/dL; Hemoglobin A1C 151.3729 umol/L; Hemoglobin A1c % 6.9 %
[2022-07-09 11:44] LABS: Alanine Aminotransferase 12 U/L (0-31); Albumin Level 3.6 g/dL (3.5-5.0); Alkaline Phosphatase 137 U/L (39-117); Anion Gap 15 (12-20); Aspartate Amino Transferase 13 U/L (5-31); Bilirubin Total 0.5 mg/dL (0.0-1.0); Blood Urea Nitrogen 24 mg/dL (9-16); Calcium 9.1 mg/dL (8.4-10.2); Carbon Dioxide 28 mmol/L (22-29); Chloride 104 mmol/L (96-108); Cholesterol 138 mg/dL; Estimated Glomerular Filt Rate 36; Glucose Random 161 mg/dL (60-115); HDL Cholesterol 40 mg/dL; LDL Cholesterol Calculated 85 mg/dl; Potassium 4.9 mmol/L (3.3-5.1); Sodium 142 mmol/L (135-145); Total Protein 6.9 g/dL (6.5-8.0); Triglycerides 65 mg/dL
[2022-07-09 11:59] LABS: Free T4 (Free Thyroxine) 1.18 ng/dL (0.71-1.85); Thyroid Stimulating Hormone 2.41 uIU/mL (0.32-4.0)
[2022-07-14 11:51] LABS: NT-proBNP 792 pg/mL
== END 2022-07-09 10:00 | disposition home or self-care (01) ==
LOC: HO.LAB 09:59
PROVIDERS: PCP Family Medicine; Visit Provider Internal Medicine Cardiovascular Disease
DX: Z01.818 Encounter for other preprocedural examination (principal); I25.10 Atherosclerotic heart disease of native coronary artery without angina pectoris; I35.0 Nonrheumatic aortic (valve) stenosis
CPT/HCPCS: 36415; 80053; 80061; 83036; 83880; 84439; 84443; 85025; 85610

== ENCOUNTER → 2022-07-15 11:22 | Outpatient (REF) | payer OTHER, SELFPAY | LOC: HO.SL 11:22 | PROVIDERS: PCP Family Medicine; Visit Provider Hospitalist | DX: G47.33 Obstructive sleep apnea (adult) (pediatric) (principal) | CPT/HCPCS: 95806 ==

== ENCOUNTER 2022-07-29 10:00 | Inpatient (IN) | payer OTHER, SELFPAY ==
--- NOTE | ~2022-07-29 | CT_ITS ---
EXAMINATION: CT CHEST WITHOUT CONTRAST CLINICAL INFORMATION: sob . COMPARISON: Chest x-ray from today, visualized lung bases on the 07/01/2022 CT scan and the 05/07/[address] scan. TECHNIQUE: Multidetector volumetric imaging was performed from the thoracic inlet through the lung bases without contrast. Sagittal and coronal reformatted images were obtained on the technologist workstation. Soft tissue and lung algorithms evaluated. Thick slab MIP images were performed to increase nodule conspicuity. This CT examination was performed using dose optimization techniques as appropriate, variously including the following: *Automated exposure control *Adjustment of mA and/or kV according to patient size (this includes techniques or standardized protocols for targeted exams where dose is matched to indication/reason for exam; i.e. extremities or head) *Use of iterative reconstruction technique DLP: 379 mGy-cm. FINDINGS: LUNG: Patchy groundglass airspace changes are again seen slightly worsened from the 06/23/2022 study. Dependent airspace atelectatic changes are noted as well. I do not appreciate any dense consolidation MEDIASTINUM: Extensive vascular calcification. Shotty mediastinal lymph nodes again noted CORONARY ARTERY CALCIFICATION: Present PERICARDIUM/PLEURA: Bilateral pleural effusions are seen increased from the 07/01/2022 study THYROID/VISUALIZED LOWER NECK: Unremarkable. CHEST WALL/AXILLA: Unremarkable. VISUALIZED UPPER ABDOMEN: Status post cholecystectomy. BONES: Multilevel degenerative changes in the spine CT/CT chest wo IV con IMPRESSION: Patchy groundglass airspace changes are again seen slightly worsened from the 07/01/2022 study. Small bilateral pleural effusions are also seen increased from the 07/01/2022 study. I do not appreciate any dense consolidation.
--- NOTE | ~2022-07-29 | XR_ITS ---
EXAMINATION: XR CHEST CLINICAL INFORMATION: Chest tightness. COMPARISON: 07/06/[address] scan dated 05/07/2022. TECHNIQUE: 2 views of the chest were obtained. FINDINGS: Mild interval increase in pulmonary vascular and interstitial markings are seen. There is minimal blunting of the right costophrenic angle. Increased opacities are seen at the right lung base as well. The heart is mildly enlarged. The mediastinal structures are unremarkable. Multilevel healed left lateral rib fractures. XR/XR chest 2V IMPRESSION: Mild increased pulmonary vascular and interstitial markings suggestive of worsening congestion. Increased right basilar infiltrate as well.
[2022-07-29 10:05] VITALS: BP 146/51; PULSE 59; RESP 20; TEMP 36.3; O2SAT 94; BMI 37.6
--- NOTE | 2022-07-29 10:09 | ECG_ITS ---
Test Reason : chest tightness Blood Pressure : / mmHG Vent. Rate : 058 BPM Atrial Rate : 058 BPM P-R Int : 112 ms QRS Dur : 082 ms QT Int : 438 ms P-R-T Axes : 024 014 103 degrees QTc Int : 429 ms Sinus bradycardia T wave abnormality, consider lateral ischemia Abnormal ECG When compared with ECG of 07-MAY-2022 10:02, No significant changes seen Referred By: Generic ED Physician Electronically Signed By:DMITRIY LUCAS MD
[2022-07-29 10:47] LABS: MANUAL DIFF FLAG NO
[2022-07-29 10:52] LABS: Basophils Absolute Auto 0.1 X10*3/uL (0.0-0.2); Basophils Percent Auto 0.6 % (0-2); Eosinophils Absolute Auto 0.3 X10*3/uL (0.0-0.4); Eosinophils Percent Auto 2.3 % (0-4); Hematocrit 34.8 % (37.0-47.0); Hemoglobin 11.2 g/dl (12.0-16.0); Imm Gran Abs Auto 0.05 X10*3/uL (0.00-0.03); Imm Gran Pct Auto 0.4 % (0.0-0.4); Lymphocytes Absolute Auto 1.3 X10*3/uL (1.2-4.9); Lymphocytes Percent Auto 10.7 % (20-40); Mean Corpuscular HGB Conc 32.2 g/dl (31.0-35.0); Mean Corpuscular Hemoglobin 24.3 pg (27.0-33.0); Mean Corpuscular Volume 75.7 fL (80.0-98.0); Mean Platelet Volume 9.5 fL (9.4-12.3); Monocytes Absolute Auto 0.6 X10*3/uL (0.1-1.2); Monocytes Percent Auto 5.2 % (2-11); Neutrophils Percent Auto 80.8 % (45-73); Platelet Count 373 X10*3/uL (160-400); Red Cell Distribution Width 17.1 % (11.0-16.0); White Blood Count 12.4 X10*3/uL (4.8-10.8)
[2022-07-29 11:11] LABS: Alanine Aminotransferase 15 U/L (0-31); Albumin Level 3.8 g/dL (3.5-5.0); Alkaline Phosphatase 141 U/L (39-117); Anion Gap 18 (12-20); Aspartate Amino Transferase 17 U/L (5-31); Bilirubin Direct 0.4 mg/dL (0.0-0.5); Bilirubin Total 0.7 mg/dL (0.0-1.0); Blood Urea Nitrogen 21 mg/dL (9-16); Calcium 9.6 mg/dL (8.4-10.2); Carbon Dioxide 24 mmol/L (22-29); Chloride 105 mmol/L (96-108); Creatinine Clr Calc Pharmacy 36.8; Estimated Glomerular Filt Rate 38; Glucose Random 140 mg/dL (60-115); Lipase 32 U/L (8-78); Potassium 4.3 mmol/L (3.3-5.1); Sodium 143 mmol/L (135-145); Total Protein 7.6 g/dL (6.5-8.0)
[2022-07-29 11:42] LABS: Influenza A PCR NEGATIVE (Negative); Influenza B PCR NEGATIVE (Negative); Resp Syncy Virus RNA Qual PCR NEGATIVE (Negative); SARS COV2 PCR INHOUSE NEGATIVE (Negative)
--- NOTE | 2022-07-29 17:31 | ED_ITS ---
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 She states that her symptoms have gotten progressively worse over the 2 days. She has shortness of breath, cough, and generally feels unwell. States that she feels tight from her throat to her epigastric area, and has wheezing. She does not report diaphoresis, pain on inspiration, nausea, vomiting, diarrhea, abdominal pain, abdominal distention, dysuria, fevers or chills. MD elicited complaint: shortness of breath, chest pain and asthma attack Pertinent past history: COPD, asthma, congestive heart failure and diabetes Onset (ago): week(s) (2) Timing: constant Severity: moderate Exacerbating factors: exertion and inspiration Relieving factors: nothing Known history of: COPD, asthma, congestive heart failure and diabetes Associated symptoms: chest pain, cough, wheezing and chest congestion Treatment prior to arrival: none Related Data Home Medications Medication Instructions Recorded Confirmed atorvastatin 40 mg tablet 40 mg PO BEDTIME 01/18/21 07/29/22 carvedilol 25 mg tablet 25 mg PO BID 01/18/21 07/29/22 montelukast 10 mg tablet 10 mg PO BEDTIME 01/18/21 07/29/22 gabapentin 300 mg capsule 300 mg PO BEDTIME 02/20/21 07/29/22 albuterol sulfate 90 mcg/actuation 2 puff PO Q4-6H PRN dyspnea 08/21/21 07/29/22 aerosol inhaler (Ventolin HFA) aspirin 81 mg tablet,delayed 81 mg PO BEDTIME 08/21/21 07/29/22 release brimonidine 0.2 % eye drops 1 drp ophthalmic (eye) BID 08/21/21 07/29/22 cyanocobalamin (vitamin B-12) 1,000 mcg PO DAILY 08/21/21 07/29/22 1,000 mcg tablet folic acid 1 mg tablet 1 mg PO QAM 08/21/21 07/29/22 latanoprost 0.005 % eye drops 1 drp ophthalmic (eye) BEDTIME 08/21/21 07/29/22 pantoprazole 40 mg tablet,delayed 40 mg PO DAILY 08/21/21 07/29/22 release fluticasone propionate 50 1 spray intranasal DAILY 06/18/22 07/29/22 mcg/actuation nasal spray,suspension cetirizine 5 mg tablet 1 tab PO DAILY PRN allergies 07/29/22 07/29/22 cilostazol 100 mg tablet 1 tab PO BID 07/29/22 07/29/22 ergocalciferol (vitamin D2) 1,250 1 cap PO [place] 07/29/22 07/29/22 mcg (50,000 unit) capsule hydralazine 50 mg tablet 50 mg PO BID 07/29/22 07/29/22 insulin aspart U-100 100 unit/mL 1 sliding scale dose subcut QIDACHS 07/29/22 07/29/22 (3 mL) subcutaneous pen (Novolog Flexpen U-100 Insulin aspart) linagliptin 5 mg tablet (Tradjenta) 1 tab PO QAM 07/29/22 07/29/22 polyethylene glycol 3350 17 gram 17 g PO DAILY 07/29/22 07/29/22 oral powder packet (HealthyLax) simethicone 125 mg capsule (Gas 1 tab PO Q8H PRN abdominal pain 07/29/22 07/29/22 Relief Extra Strength) sucralfate 1 gram tablet 2 tab PO DAILY 07/29/22 07/29/22 Previous Rx's Medication Instructions Recorded furosemide 40 mg tablet 40 mg PO DAILY #30 tabs 02/25/21 FreeStyle Lancets 28 gauge #300 ea 01/15/22 (lancets) blood sugar diagnostic (FreeStyle #300 ea 03/03/22 Lite Strips) amlodipine 10 mg tablet 10 mg PO DAILY #30 tabs 04/04/22 pen needle, diabetic 32 gauge x #400 ea 04/29/22 (BD Sia 2nd Gen Pen Needle) budesonide-formoterol HFA 160 2 puff inhalation BID 30 days 06/18/22 mcg-4.5 mcg/actuation aerosol #10.2 grams inhaler (Symbicort) insulin glargine U-300 conc 300 40 unit (0.1333 mL) subcut DAILY 07/28/22 unit/mL (1.5 mL) subcutaneous pen #4.5 mL (Toujeo SoloStar U-300 Insulin) Allergies Allergy/AdvReac Type Severity Reaction Status Date / Time acetaminophen [Percocet] Allergy Intermediate Itching Verified 06/25/22 11:13 ibuprofen [From MOTRIN] Allergy Intermediate RASH Verified 06/25/22 11:13 Motrin Allergy Intermediate high blood Verified 06/25/22 11:13 pressure oxycodone [From PERCOCET] Allergy Intermediate ITCHING Verified 06/25/22 11:13 Review of Systems Review of Systems: Constitutional: No Fever, No Chills ENT/Mouth: No Ear Pain, No Hoarseness, No sore throat Eyes: No Eye Pain, No Swelling, No Redness, No Foreign Body Cardiovascular: Positive Chest Pain, positive SOB Respiratory: Positive wheezing, Positive Cough, No Dyspnea Gastrointestinal: No Nausea, No Vomiting, No Diarrhea, No abdominal Pain Genitourinary: No Dysuria, No Hematuria Musculoskeletal: No joint pain, No Myalgias, No Joint Swelling Skin: No Skin lacerations, No rash Neuro: No Weakness, No Numbness, No Paresthesias, No Loss of Consciousness, No Dizziness, No Headache Psych: No Anxiety/Panic, No Depression Heme/Lymph: no easy bruising, no Lymphadenopathy Endocrine: No Polyuria, No Polydipsia Yes all other systems are reviewed and are negative PMFSH Past Medical History Attestation statement: The following information was validated with the patient. 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 T2DM (type 2 diabetes mellitus) 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, with long- term current use of insulin Vitamin D deficiency Surgical History History of breast lump/mass excision History of cholecystectomy History of tubal ligation Family History Family History Sister History of renal pelvis cancer Father Suicide Mother Lung disease Diabetes mellitus Social History Social History Household Members: Family Housing: House Do you presently have visiting nurse or other 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) Alcohol intake: never Patient Tobacco Use Status: Former Tobacco user Tobacco use type: Cigarette Years Smoked: 5 years e-Cigarette/Vaping Use: Never Used Second Hand Smoke Exposure: No Advance Directives: No Advance Directives Information Provided: No service: No Current occupational status: unemployed Gender identity: Female Cognitive needs: Yes Hearing needs: No Vision needs: No Physical Exam Vital Signs: Vital Signs: Last Vital Signs Temp 97.3 F 07/29/22 10:05 Pulse 75 07/29/22 19:10 Resp 20 07/29/22 10:05 BP 146/51 H 07/29/22 10:05 Pulse Ox 88 L 07/29/22 19:10 O2 Del Method 07/29/22 19:10 BMI result Body Mass Index 37.6 Appearance: Alert. Oriented X3. Mild distress. Eyes: Pupils equal, round and reactive to light. Sclera nonicteric. ENT: Pharynx normal. Neck: Normal inspection. Neck supple. CVS: Normal heart rate and rhythm. Pulses normal. Respiratory: Even unlabored respirations. Diminished lung sounds at the bases bilaterally with faint crackles, expiratory wheezing noted throughout upper lobes. Abdomen: Soft and nontender. Obese. Skin: Skin warm and dry. Normal skin color. Normal skin turgor. Extremities: No lower extremity edema. Gait well-balanced well coordinated. Neuro: No motor deficit. No sensory deficit. Cranial nerves 2-12 intact. Course Course Course Narrative: Waiting room time 7 hours 38 minutes 77-year-old female presents for evaluation of chest pain, tightness from her esophagus to epigastric area, wheezing, and overall feeling of unwellness. Labs drawn while patient was in the emergency department waiting room, has an elevated white count of 12.4, H&H 11.2/34.8 which is consistent with prior values, BUN 21 which is an improvement from prior values troponin elevated at 20. Will order repeat EKG, 2nd troponin, BNP, PT INR. Will order chest CT as chest x-rays indicates increased pulmonary vascular and interstitial markings suggestive of worsening congestion. Increase of right basilar infiltrates as well. 19:10 ambulatory pulse ox 88%. CT scan indicates patchy ground glass airspace changes worsen from 07/01/2022, small bilateral pleural effusions increased from 07/01/2022, no dense consolidations. Will treat with azithromycin, ceftriaxone, and give Lasix for elevated BNP of 428. BNP is greater than her prior values, usually around the 200s. Second troponin is 16. Low likelihood of ACS at this time. Repeat EKG pending. 19:42 EKG still pending. I did discuss hypoxic findings, CT scan with hospitalists, plan of care is to admit Patient for pneumonia and hypoxia, CHF with chest pain. 19:[address] elevation or depression, no ischemic ST T-wave abnormalities noted. Consultations Consultation #1: Armen Time: 19:32 MDM - SOB/Dyspnea Differential Diagnosis Differential diagnosis: Likely acute exacerbation of chronic obstructive airways disease, congestive heart failure, pneumonia, asthma with exacerbation, pulmonary embolism, pleural effusion and anemia Medical Records Attestation: I reviewed the patient's medical records. Lab Data Attestation: I reviewed the patient's lab results. Result diagrams: 07/29/22 10:34 07/29/22 10:34 Labs: Lab Results 07/29/22 07/29/22 07/29/22 Range/Units 10:34 10:34 10:34 WBC 12.4 H (4.8-10.8) X10*3/uL RBC 4.60 (4.20-5.50) X10*6/uL Hgb 11.2 L (12.0-16.0) g/dl Hct 34.8 L (37.0-47.0) % MCV 75.7 L (80.0-98.0) fL MCH 24.3 L (27.0-33.0) pg MCHC 32.2 (31.0-35.0) g/dl RDW 17.1 H (11.0-16.0) % Plt Count 373 (160-400) X10*3/uL MPV 9.5 (9.4-12.3) fL Immature Gran % (Auto) 0.4 (0.0-0.4) % Neut % (Auto) 80.8 H (45-73) % Lymph % (Auto) 10.7 L (20-40) % [place] % (Auto) 5.2 (2-11) % Eos % (Auto) 2.3 (0-4) % Baso % (Auto) 0.6 (0-2) % Lymph # (Auto) 1.3 (1.2-4.9) X10*3/uL [place] # (Auto) 0.6 (0.1-1.2) X10*3/uL Eos # (Auto) 0.3 (0.0-0.4) X10*3/uL Baso # (Auto) 0.1 (0.0-0.2) X10*3/uL Abs Immat Gran (auto) 0.05 H (0.00-0.03) X10*3/uL Absolute Neuts (auto) 10.0 H (2.0-8.3) x10*3/uL Absolute Nucleated RBC 0.000 (0.0-0.012) X10*3/uL Nucleated RBC % (auto) 0.0 (0.0-0.2) /100WBC PT (10.0-13.1) SEC INR (0.9-1.1) APTT (26.0-36.4) SEC Sodium 143 (135-145) mmol/L Potassium 4.3 (3.3-5.1) mmol/L Chloride 105 (96-108) mmol/L Carbon Dioxide 24 (22-29) mmol/L Anion Gap 18 (12-20) BUN 21 H (9-16) mg/dL Creatinine 1.36 (0.5-1.4) mg/dL Estim Creat Clear Calc 36.8 Estimated GFR 38 Random Glucose 140 H (60-115) mg/dL Calcium 9.6 (8.4-10.2) mg/dL Magnesium 2.1 (1.6-2.6) mg/dL Total Bilirubin 0.7 (0.0-1.0) mg/dL Direct Bilirubin 0.4 (0.0-0.5) mg/dL AST 17 (5-31) U/L ALT 15 (0-31) U/L Alkaline Phosphatase 141 H (39-117) U/L Troponin I High Sens 20.0 H D (<3.5-17.0) ng/L B-Natriuretic Peptide (<100) pg/mL Total Protein 7.6 (6.5-8.0) g/dL Albumin 3.8 (3.5-5.0) g/dL Lipase 32 (8-78) U/L Influenza Type A (PCR) (Negative) Influenza Type B (PCR) (Negative) RSV RNA Qual (PCR) (Negative) SARS-CoV-2 RNA (RT-PCR) (Negative) 07/29/22 07/29/22 07/29/22 Range/Units 10:34 17:48 17:48 WBC (4.8-10.8) X10*3/uL RBC (4.20-5.50) X10*6/uL Hgb (12.0-16.0) g/dl Hct (37.0-47.0) % MCV (80.0-98.0) fL MCH (27.0-33.0) pg MCHC (31.0-35.0) g/dl RDW (11.0-16.0) % Plt Count (160-400) X10*3/uL MPV (9.4-12.3) fL Immature Gran % (Auto) (0.0-0.4) % Neut % (Auto) (45-73) % Lymph % (Auto) (20-40) % [place] % (Auto) (2-11) % Eos % (Auto) (0-4) % Baso % (Auto) (0-2) % Lymph # (Auto) (1.2-4.9) X10*3/uL [place] # (Auto) (0.1-1.2) X10*3/uL Eos # (Auto) (0.0-0.4) X10*3/uL Baso # (Auto) (0.0-0.2) X10*3/uL Abs Immat Gran (auto) (0.00-0.03) X10*3/uL Absolute Neuts (auto) (2.0-8.3) x10*3/uL Absolute Nucleated RBC (0.0-0.012) X10*3/uL Nucleated RBC % (auto) (0.0-0.2) /100WBC PT (10.0-13.1) SEC INR (0.9-1.1) APTT (26.0-36.4) SEC Sodium (135-145) mmol/L Potassium (3.3-5.1) mmol/L Chloride (96-108) mmol/L Carbon Dioxide (22-29) mmol/L Anion Gap (12-20) BUN (9-16) mg/dL Creatinine (0.5-1.4) mg/dL Estim Creat Clear Calc Estimated GFR Random Glucose (60-115) mg/dL Calcium (8.4-10.2) mg/dL Magnesium (1.6-2.6) mg/dL Total Bilirubin (0.0-1.0) mg/dL Direct Bilirubin (0.0-0.5) mg/dL AST (5-31) U/L ALT (0-31) U/L Alkaline Phosphatase (39-117) U/L Troponin I High Sens 16.1 (<3.5-17.0) ng/L B-Natriuretic Peptide 438 H (<100) pg/mL Total Protein (6.5-8.0) g/dL Albumin (3.5-5.0) g/dL Lipase (8-78) U/L Influenza Type A (PCR) NEGATIVE (Negative) Influenza Type B (PCR) NEGATIVE (Negative) RSV RNA Qual (PCR) NEGATIVE (Negative) SARS-CoV-2 RNA (RT-PCR) NEGATIVE (Negative) 07/29/22 07/29/22 Range/Units 17:48 17:48 WBC (4.8-10.8) X10*3/uL RBC (4.20-5.50) X10*6/uL Hgb (12.0-16.0) g/dl Hct (37.0-47.0) % MCV (80.0-98.0) fL MCH (27.0-33.0) pg MCHC (31.0-35.0) g/dl RDW (11.0-16.0) % Plt Count (160-400) X10*3/uL MPV (9.4-12.3) fL Immature Gran % (Auto) (0.0-0.4) % Neut % (Auto) (45-73) % Lymph % (Auto) (20-40) % [place] % (Auto) (2-11) % Eos % (Auto) (0-4) % Baso % (Auto) (0-2) % Lymph # (Auto) (1.2-4.9) X10*3/uL [place] # (Auto) (0.1-1.2) X10*3/uL Eos # (Auto) (0.0-0.4) X10*3/uL Baso # (Auto) (0.0-0.2) X10*3/uL Abs Immat Gran (auto) (0.00-0.03) X10*3/uL Absolute Neuts (auto) (2.0-8.3) x10*3/uL Absolute Nucleated RBC (0.0-0.012) X10*3/uL Nucleated RBC % (auto) (0.0-0.2) /100WBC PT 12.3 (10.0-13.1) SEC INR 1.1 (0.9-1.1) APTT 31.9 (26.0-36.4) SEC Sodium (135-145) mmol/L Potassium (3.3-5.1) mmol/L Chloride (96-108) mmol/L Carbon Dioxide (22-29) mmol/L Anion Gap (12-20) BUN (9-16) mg/dL Creatinine (0.5-1.4) mg/dL Estim Creat Clear Calc Estimated GFR Random Glucose (60-115) mg/dL Calcium (8.4-10.2) mg/dL Magnesium Cancelled (1.6-2.6) mg/dL Total Bilirubin (0.0-1.0) mg/dL Direct Bilirubin (0.0-0.5) mg/dL AST (5-31) U/L ALT (0-31) U/L Alkaline Phosphatase (39-117) U/L Troponin I High Sens (<3.5-17.0) ng/L B-Natriuretic Peptide (<100) pg/mL Total Protein (6.5-8.0) g/dL Albumin (3.5-5.0) g/dL Lipase (8-78) U/L Influenza Type A (PCR) (Negative) Influenza Type B (PCR) (Negative) RSV RNA Qual (PCR) (Negative) SARS-CoV-2 RNA (RT-PCR) (Negative) Imaging Data Chest x-ray: Attestation: I personally reviewed and interpreted this imaging study as follows: Radiologist's impression: EXAMINATION: XR CHEST CLINICAL INFORMATION: Chest tightness. COMPARISON: 07/06/[address] scan dated 05/07/2022. TECHNIQUE: 2 views of the chest were obtained. FINDINGS: Mild interval increase in pulmonary vascular and interstitial markings are seen. There is minimal blunting of the right costophrenic angle. Increased opacities are seen at the right lung base as well. The heart is mildly enlarged. The mediastinal structures are unremarkable. Multilevel healed left lateral rib fractures. XR/XR chest 2V IMPRESSION: Mild increased pulmonary vascular and interstitial markings suggestive of worsening congestion. Increased right basilar infiltrate as well. CT scan - chest: Attestation: I personally reviewed and interpreted this imaging study as follows: Radiologist's impression: FINDINGS: LUNG: Patchy groundglass airspace changes are again seen slightly worsened from the 06/23/2022 study. Dependent airspace atelectatic changes are noted as well. I do not appreciate any dense consolidation MEDIASTINUM: Extensive vascular calcification. Shotty mediastinal lymph nodes again noted CORONARY ARTERY CALCIFICATION: Present PERICARDIUM/PLEURA: Bilateral pleural effusions are seen increased from the 07/01/2022 study THYROID/VISUALIZED LOWER NECK: Unremarkable. CHEST WALL/AXILLA: Unremarkable. VISUALIZED UPPER ABDOMEN:? Status post cholecystectomy. BONES: Multilevel degenerative changes in the spine CT/CT chest wo IV con IMPRESSION: Patchy groundglass airspace changes are again seen slightly worsened from the 07/01/2022 study. Small bilateral pleural effusions are also seen increased from the 07/01/2022 study. I do not appreciate any dense consolidation. ECG Data Attestation: I personally reviewed and interpreted this ECG as follows: ECG interpretation date: 07/29/22 ECG interpretation time: 10:41 Prior ECG tracings: available for review Interpretation: Vent. rate 58 BPM NM interval 112 ms QRS duration 82 ms QT/QTc 438/429 ms P-R-T axes 24 14 103 Sinus bradycardia T wave abnormality, consider lateral ischem ia Abnormal ECG When compared with ECG of 07-MAY-2022 10:02, No significant changes seen EKG 2. Vent. rate 62 BPM NM interval 118 ms QRS duration 96 ms QT/QTc 416/422 ms P-R-T axes 40 [address] & T wave abnormality, consider lateral ischemia Abnormal ECG When compared with ECG of 29-JUL-2022 10:41, No significant change was found 29-JUL-2022 19:42:47 Scores Heart Score History: -1- moderately suspicious ECG: -1- non specific repolarization disturbance Age: -2- > or = 65 Risk factory: -1- 1 or 2 risk factors Troponin: -1- >1 - <3x normal limit Score: 6 Risk: 16.6% Critical Care Time Critical Care Time Critical Care Time: Yes Total Critical Care Time: 35 Attestation: I have personally provided critical care time exclusive of time spent on separately billable procedures. Time includes review of laboratory data, radiology results, discussion with consultants, and monitoring for potential decompensation. Interventions were performed as documented. Discharge Plan Discharge Clinical Impression: Chest pain, Congestive heart failure, Pneumonia Patient Disposition: Admitted As Inpatient
--- OUTSIDE RECORDS SUMMARY | 2022-07-29 17:40 | XMS_ITS | Continuity of Care Document ---
:1945 Author Organization [facility] Address [address] [address]- Care Team Providers Name Role Phone Samm VORA, Marycarmen Primary Care Physician Encounter [facility] [place] Date(s[place] 04/03/20 - 05/03/20 [facility] [address] [place] [id number] [facility] Attending Physician: Janae García Admitting Physician: AdmJanae tran Referring Physician: Admtr, Janae Allergies, Adverse Reactions, Alerts Substance Reaction Severity Status Motrin High BP Active Percocet 7.5/325 hallucinations Active Medications amLODIPine 2.5 mg oral tablet 2.5 mg, 1, tablet, By Mouth, Daily, # 30 tablet, Refills 0, Maintenance, 06/23/18 7:01:38 EDT Start Date: 06/23/18 Status: OrderedamLODIPine 5 mg oral tablet 5 mg, 1, tablet, By Mouth, Daily, # 30 tablet, Refills 0, Maintenance, 06/23/18 8:30:26 EDT Start Date: 06/23/18 Status: Orderedaspirin 81 mg oral delayed release tablet 81 mg, 1, tablet, By Mouth, Daily, # 30 tablet, Refills 0, Maintenance, 06/23/18 7:02:48 EDT Start Date: 06/23/18 Status: OrderedCalcium 600 +D oral tablet 1 tablet, By Mouth, 2 times a day, # 90 tablet, 0 Refills, Maintenance, 06/23/18 7:01:03 EDT, Tablet Start Date: 06/23/18 Status: Orderedcilostazol 100 mg oral tablet 1 tablet = 100 mg, By Mouth, 2 times a day, # 60 tablet, 0 Refills, Maintenance, 06/23/18 7:03:20 EDT, Tablet Start Date: 06/23/18 Status: OrderedCoreg 12.5 mg oral tablet 12.5 mg, 1, tablet, By Mouth, 2 times a day, # 60 tablet, Refills 0, Maintenance, 06/23/18 7:03:11 EDT Start Date: 06/23/18 Status: OrderedCrestor 40 mg oral tablet 1 tablet = 40 mg, By Mouth, Daily, # 30 tablet, 0 Refills, Maintenance, 06/23/18 7:01:28 EDT, Tablet Start Date: 06/23/18 Status: Orderedgabapentin 300 mg oral capsule 300 mg, 1, capsule, By Mouth, 3 times a day, # 90 capsule, Refills 0, Maintenance, 06/23/18 6:50:45 EDT Start Date: 06/23/18 Status: Orderedibuprofen 600 mg oral tablet 1 tablet = 600 mg, By Mouth, 4 times a day, # 120 tablet, 0 Refills, Maintenance Start Date: 09/02/10 Status: Orderedlisinopril 40 mg oral tablet 1 tablet = 40 mg, By Mouth, Daily, 0 Refills, Maintenance, 12/21/18 11:10:33 EDT Start Date: 12/21/18 Status: Orderedlisinopril 5 mg oral tablet 5 mg, 1, tablet, By Mouth, Daily, # 30 tablet, Refills 0, Maintenance, 06/23/18 6:51:02 EDT Start Date: 06/23/18 Status: Orderedmethenamine hippurate 1 gm oral tablet 1 tablet = 1 Gm, By Mouth, 2 times a day, # 10 tablet, 0 Refills, Maintenance, 06/23/18 7:01:53 EDT,Tablet Start Date: 06/23/18 Status: Orderedmontelukast 10 mg oral tablet 10 mg, 1, tablet, By Mouth, Daily, Refills 0, Maintenance, 12/21/18 11:10:07 EDT Start Date: 12/21/18 Status: Orderedomeprazole 20 mg oral delayed release tablet 1 tablet = 20 mg, By Mouth, Daily, # 30 tablet, 0 Refills, Maintenance, 06/23/18 6:59:17 EDT, EC Tablet Start Date: 06/23/18 Status: OrderedPercocet-5/325 325 mg-5 mg oral tablet 1 tablet, By Mouth, Every 4 hours, PRN Pain, # 40 tablet, 0 Refills, Maintenance Start Date: 09/02/10 Status: OrderedSymbicort 80mcg/4.5mcg Inhaler 2, puffs, Inhalation, 2 times a day, # 6.9 Gm, Refills 0, Maintenance, 06/23/18 7:03:02 EDT, Aerosol Start Date: 06/23/18 Status: OrderedVitamin D 74534 iu oral capsule 50,000 International_Units, 1, capsule, By Mouth, Every week, Refills 0, Maintenance, 06/23/18 7:02:38 EDT Start Date: 06/23/18 Status: Ordered Problem List Condition Effective Dates Status Health Status Informant Asthma(Confirmed) Active Cardiac catheterization(Confirmed) Active Diabetes mellitus(Confirmed) Active Hyperlipidemia(Confirmed) Active Hypertension(Confirmed) Active Social History Social History Type Response Smoking Status Never (less than 100 in life time) entered on: 12/21/18 Sex
--- OUTSIDE RECORDS SUMMARY | 2022-07-29 17:40 | XMS_ITS | Continuity of Care Document ---
:1945 Author Organization [facility] Address [address] [place] [address]- Care Team Providers Name Role Phone Samm VORA, Marycarmen Primary Care Physician Encounter [id number] Date(s): 07/02/20 - 07/09/20 [facility] [address] [place] [id number] [facility] Attending Physician: Nicolas Perez MD Admitting Physician: Nicolas Perez MD Referring Physician: Marycarmen Quijano MD Allergies, Adverse Reactions, Alerts Substance Reaction Severity [...] 06/23/18 7:02:48 EDT Start Date: 06/23/18 Status: Orderedatorvastatin 40 mg oral tablet 1 tablet = 40 mg, By Mouth, Daily, # 30 tablet, 0 Refills, Maintenance, 05/20/20 7:24:00 EDT, Tablet Start Date: 05/20/20 Status: OrderedCalcium 600 +D oral tablet 1 [...] 06/23/18 6:50:45 EDT Start Date: 06/23/18 Status: OrderedhydrALAZINE = 50 mg, 2 times a day, 0 Refills, Maintenance, 05/20/20 7:39:00 EDT Start Date: 05/20/20 Status: Orderedibuprofen 600 mg oral tablet 1 [...] 7:03:02 EDT, Aerosol Start Date: 06/23/18 Status: OrderedTradjenta 5 mg oral tablet 1 tablet = 5 mg, By Mouth, Daily, 0 Refills, Maintenance, 05/20/20 7:42:00 EDT Start Date: 05/20/20 Status: OrderedTradjenta 5 mg oral tablet 1 tablet = 5 mg, By Mouth, Daily, # 30 tablet, 0 Refills, Maintenance, 05/20/20 7:45:00 EDT, Tablet Start Date: 05/20/20 Status: OrderedVitamin D 44288 iu oral capsule 50,000 International_Units, 1, capsule, [...]
--- OUTSIDE RECORDS SUMMARY | 2022-07-29 17:40 | XMS_ITS | Continuity of Care Document ---
:1945 Author Organization [facility] Address [address] [place] [id number]- Care Team Providers Name Role Phone Samm VORA, Marycarmen Primary Care Physician Encounter [facility] [place] Date(s): 02/20/22 - 03/25/[address] [address] Attending Physician: Tera Sutherland MD Admitting Physician: Tera Sutherland MD Referring Physician: Fan Lutz MD Allergies, Adverse Reactions, Alerts Substance Reaction [...] Tablet Start Date: 05/20/20 Status: OrderedVitamin D 45093 iu oral capsule 50,000 International_Units, 1, capsule, [...]
--- OUTSIDE RECORDS SUMMARY | 2022-07-29 17:40 | XMS_ITS | Continuity of Care Document ---
:1945 Author Organization [facility] Address [address] [place] [address]- Care Team Providers Name Role Phone Preston VORA, Daniel Garcia Primary Care Physician Encounter [facility] [place] Date(s): 03/05/22 - 04/23/[address] [address] Attending Physician: Tera Sutherland MD Admitting Physician: Tera Sutherland MD Allergies, Adverse Reactions, Alerts Substance Reaction [...] Tablet Start Date: 05/20/20 Status: OrderedVitamin D 80242 iu oral capsule 50,000 International_Units, 1, capsule, [...]
--- OUTSIDE RECORDS SUMMARY | 2022-07-29 17:40 | XMS_ITS | Continuity of Care Document ---
:1945 Author Organization [facility] Address [address] [place] [address]- Care Team Providers Name Role Phone Samm VORA, Marycarmen Primary Care Physician [place] [facility] [place]): [place] 07/07/21 [facility] [address] [place], [place] [address] Attending Physician: Nicolas Perez MD Admitting Physician: [...] Tablet Start Date: 05/20/20 Status: OrderedVitamin D 66224 iu oral capsule 50,000 International_Units, 1, capsule, [...]
--- OUTSIDE RECORDS SUMMARY | 2022-07-29 17:40 | XMS_ITS | Continuity of Care Document ---
:1945 Author Organization [facility] Address [address] [place] [address]- Care Team Providers Name Role Phone Preston VORA, Daniel Garcia Primary Care Physician [place] [facility] [place](s[place] 04/02/22 - 05/02/22 [facility] [address] [place] [address] Allergies, Adverse Reactions, Alerts Substance Reaction Severity [...] Tablet Start Date: 05/20/20 Status: OrderedVitamin D 09183 iu oral capsule 50,000 International_Units, 1, capsule, [...]
--- NOTE | 2022-07-29 17:41 | ECG_ITS ---
Test Reason : REPEAT Blood Pressure : / mmHG Vent. Rate : 062 BPM Atrial Rate : 062 BPM P-R Int : 118 ms QRS Dur : 096 ms QT Int : 416 ms P-R-T Axes : 040 018 138 degrees QTc Int : 422 ms Normal sinus rhythm ST & T wave abnormality, consider lateral ischemia Abnormal ECG When compared with ECG of 29-JUL-2022 10:41, No significant change was found Referred By: Andreea Florence Electronically Signed By:DMITRIY LUCAS MD
--- OUTSIDE RECORDS SUMMARY | 2022-07-29 17:41 | XMS_ITS | Continuity of Care Document ---
:1945 Author Organization [facility] Address [address] [place] [address]- Care Team Providers Name Role Phone Samm VORA, Marycarmen Primary Care Physician En[place] [facility] [place] Date(s): 02/06/22 - 03/20/[address] [address] Attending Physician: Fan Lutz MD Admitting Physician: Fan Lutz MD Allergies, Adverse Reactions, [...] 0, Maintenance, 12/21/18 11:10:07 EDT Start Date: 3/20/19 Status: Orderedomeprazole 20 mg oral delayed release [...] Tablet Start Date: 05/20/20 Status: OrderedVitamin D 27562 iu oral capsule 50,000 International_Units, 1, capsule, [...]
--- OUTSIDE RECORDS SUMMARY | 2022-07-29 17:41 | XMS_ITS | Continuity of Care Document ---
:1945 Author Organization [facility] Address [address] [place] [address]- Care Team Providers Name Role Phone Samm VORA, Marycarmen Primary Care Physician [place] [facility] [place] 06/23/21 - 07/23/21 [facility] [address] [place] [address] Attending Physician: Janae García Admitting Physician: AdmJanae tran Referring Physician: AdmtrJanae Allergies, Adverse Reactions, Alerts Substance Reaction Severity [...] Tablet Start Date: 05/20/20 Status: OrderedVitamin D 51455 iu oral capsule 50,000 International_Units, 1, capsule, [...]
--- OUTSIDE RECORDS SUMMARY | 2022-07-29 17:41 | XMS_ITS | Continuity of Care Document ---
:1945 Author Organization [facility] Address [address] [place] [address]- Care Team Providers Name Role Phone Preston VORA, Daniel Garcia Primary Care Physician [phone] Encounter [facility] [place] [id number] Date(s): 04/10/22 - 05/16/22 [facility] [address] [place] [address] Attending Physician: Geoff VORA, Donavan Referring Physician: Sonny James DO Allergies, Adverse Reactions, Alerts Substance Reaction Severity [...] Tablet Start Date: 05/20/20 Status: OrderedVitamin D 88282 iu oral capsule 50,000 International_Units, 1, capsule, [...]
--- OUTSIDE RECORDS SUMMARY | 2022-07-29 17:41 | XMS_ITS | Continuity of Care Document ---
:1945 Author Organization [facility] Address [address] [place] [address]- Care Team Providers Name Role Phone Samm VORA, Marycarmen Primary Care Physician [place] [facility] [place] 06/30/21 - 07/30/21 [facility] [address] [place] [address] Attending Physician: Janae García Admitting Physician: AdmJanae tran Referring Physician: Admtr, Ar8 Allergies, Adverse Reactions, Alerts Substance Reaction Severity [...] Tablet Start Date: 05/20/20 Status: OrderedVitamin D 71519 iu oral capsule 50,000 International_Units, 1, capsule, [...]
--- OUTSIDE RECORDS SUMMARY | 2022-07-29 17:41 | XMS_ITS | Continuity of Care Document ---
:1945 Author Organization [facility] Address [address] [address]- Care Team Providers Name Role Phone Samm VORA, Marycarmen Primary Care Physician Encounter [facility] [place] Date(s): 05/15/20 - 06/14/20 [facility] [address] [place] [address]- [facility] Allergies, Adverse Reactions, Alerts Substance Reaction Severity [...] Tablet Start Date: 05/20/20 Status: OrderedVitamin D 92829 iu oral capsule 50,000 International_Units, 1, capsule, [...]
--- OUTSIDE RECORDS SUMMARY | 2022-07-29 17:41 | XMS_ITS | Continuity of Care Document ---
:1945 Author Organization [facility] Address [address] [place] [address]- Care Team Providers Name Role Phone Samm VORA, Marycarmen Primary Care Physician Encounter [facility] [place] Date(s): 04/03/20 - 04/10/20 [facility] [address] [place] [address] [facility] Attending Physician: Geoff VORA, Donavan Referring Physician: [...] Aerosol Start Date: 06/23/18 Status: OrderedVitamin D 60316 iu oral capsule 50,000 International_Units, 1, capsule, By Mouth, Every week, Refills 0, Maintenance, 06/23/18 7:02:38 EDT Start Date: 06/23/18 Status: Ordered Problem List Condition Effective Dates Status Health Status Informant Asthma(Confirmed) Active Cardiac catheterization(Confirmed) Active Diabetes mellitus(Confirmed) Active Hyperlipidemia(Confirmed) Active Hypertension(Confirmed) Active Vital Signs Most recent to oldest [Reference Range]: 1 Height 142 cm (04/03/20 1:44 PM) Oxygen Saturation [94-100 %] 97 % (04/03/20 1:44 PM) Pulse Rate [55-90 bpm] 72 bpm (04/03/20 1:44 PM) Blood Pressure [90-138/55-84 mm Hg] 144/62 mm Hg *H* (04/03/20 1:44 PM) Respiratory Rate [16-30 br/min] 181 br/min *H* (04/03/20 1:44 PM) Mode of Delivery (Oxygen) Room air (04/03/20 1:44 PM) Blood pressure sites Arm, right (04/03/20 1:44 PM) Social History Social History Type Response Smoking Status Never (less than 100 in life time) entered on: 12/21/18 Sex
--- OUTSIDE RECORDS SUMMARY | 2022-07-29 17:41 | XMS_ITS | Continuity of Care Document ---
:1945 Author Organization [facility] Address [address] [place] [address]- Care Team Providers Name Role Phone Samm VORA, Marycarmen Primary Care Physician [place] [facility] [place] - 11/06/[address] [address] Attending Physician: Fan Lutz MD Admitting Physician: [...] Tablet Start Date: 05/20/20 Status: OrderedVitamin D 84912 iu oral capsule 50,000 International_Units, 1, capsule, [...]
--- OUTSIDE RECORDS SUMMARY | 2022-07-29 17:41 | XMS_ITS | Continuity of Care Document ---
:1945 Author Organization [facility] Address [address] [place] [address]- Care Team Providers Name Role Phone Preston VORA, Daniel Garcia Primary Care Physician [place] [facility] [place] 02/25/22 - 04/02/[address] [address] Attending Physician: Tera Sutherland MD Admitting Physician: Tera Sutherland MD Referring Physician: Sonny James DO Allergies, Adverse [...] Tablet Start Date: 05/20/20 Status: OrderedVitamin D 37763 iu oral capsule 50,000 International_Units, 1, capsule, [...]
--- OUTSIDE RECORDS SUMMARY | 2022-07-29 17:41 | XMS_ITS | Continuity of Care Document ---
:1945 Author Organization [facility] Address [address] [place] [address]- Care Team Providers Name Role Phone Marycarmen Quijano MD Primary Care Physician [place] [facility] [place](s): 07/02/20 - 08/01/20 [facility] [address] [place] [address] [facility] Attending Physician: Janae García Admitting Physician: Janae García Referring Physician: Admtr, [id number] Allergies, Adverse Reactions, Alerts Substance Reaction Severity [...] Tablet Start Date: 05/20/20 Status: OrderedVitamin D 58413 iu oral capsule 50,000 International_Units, 1, capsule, [...]
--- OUTSIDE RECORDS SUMMARY | 2022-07-29 17:41 | XMS_ITS ---
:1945 Author Care Team Providers Name Role Phone [facility] Referring Provider [phone] [facility] Referring Provider [phone] Allergies None recorded. Medications Name Status Start Date Stop Date ? ? amlodipine 10 mg tablet Active ? Not avai lable amlodipine 2.5 mg tablet Active ? Not erinn ilable TAKE 1 TABLET BY MOUTH EVERY EVENING (T [place] ADDITIONAL TABLET IF BLOOD PRESSURE >160-IN VIAL) amoxicillin 500 mg-potassium clavulanate 125 mg tablet Active ? Not available TAKE 1 TABLET BY MOUTH EVERY TWELVE HOURS UNTIL FINISHED Anti-Diarrheal (loperamide) 2 mg tablet Active ? Not available TAKE 1 TABLET BY MOUTH CON EL PRIMER MO VIMIENTO INTESTINAL, LUEGO IVÁN [place] CASULA CON CADA EVACUACION. NO EXEDER DE 8 TABLETAS EN 24 HORAS. aspirin 81 mg tablet,delayed release Active ? Not available TAKE 1 TABLET BY MOUTH AT BEDTIME atorvastatin 40 mg tablet Active ? Not av ailable TAKE 1 TABLET BY MOUTH AT BEDTIME azithromycin 500 mg tablet Active ? Not a vailable TAKE 1 TABLET BY MOUTH ONCE DAILY FOR 5 DAYS blood pressure test kit-large cuff Active ? Not available USE DIRECTED DAILY brimonidine 0.2 % eye drops Active ? Not available INSTILL 1 DROP IN EACH EYE TWICE DAILY carvedilol 25 mg tablet Active ? Not avai lable TAKE 1 TABLET BY MOUTH TWICE DAILY IN THE MORNING AND AT BEDTIM E WITH FOOD cephalexin 500 mg capsule Active ? Not av ailable TAKE 1 CAPSULE BY MOUTH TWICE DAILY UNTIL FINISHED cetirizine 5 mg tablet Active ? Not avail able TAKE 1 TABLET BY MOUTH EVERY DAY NEEDED FOR ALLERGIES cilostazol 100 mg tablet Active ? Not erinn ilable TAKE 1 TABLET BY MOUTH TWICE DAILY IN THE MORNING AND AT BEDTIM E cilostazol 50 mg tablet Active ? Not avai lable TAKE 1 TABLET BY MOUTH TWICE DAILY IN T HE MORNING AND AT BEDTIME 1/2 HOUR BEFORE MEALS OR 2 HOURS AFTER MEALS ciprofloxacin 500 mg tablet Active ? Not available TAKE 1 TABLET BY MOUTH EVERY TWELVE HOURS UNTIL FINISHED clonidine HCl 0.1 mg tablet Active ? Not available TAKE 1 TABLET BY MOUTH AT BEDTIME clotrimazole 1 % vaginal cream Active ? N ot available USE 1 APPLICATORFUL ONCE DAILY VAGINALLY AT BEDTIME FOR INFECTI ON clotrimazole-betamethasone 1 %-0.05 % topical cream Active ? Not available APPLY TOPICALLY TO AFFECTED AREA(S) TWI CE DAILY FOR 7 DAYS NEEDED FOR ITCHING cyanocobalamin (vit B-12) 1,000 mcg tablet Active ? Not available TAKE 1 TABLET BY MOUTH EVERY DAY dorzolamide 2 % eye drops Active ? Not av ailable INSTILL 1 DROP IN THE RIGHT EYE THREE TIMES DAILY Dulera 200 mcg-5 mcg/actuation HFA aerosol inhaler Active ? Not available INHALE 2 PUFFS BY MOUTH EVERY TWELVE HOURS DIRECTED ergocalciferol (vitamin D2) 1,250 mcg (50,000 unit) capsule Acti ve ? Not available TAKE 1 CAPSULE BY MOUTH ONCE WEEKLY ON WEDNESDAY MORNING fluconazole 150 mg tablet Active ? Not av ailable TAKE 1 TABLET BY MOUTH EVERY 3 DAYS. MA Y REPEAT AFTER 72 HOURS IF SYMPTOMS WORSEN OR PERSIST. fluticasone propionate 50 mcg/actuation nasal spray,suspension A ctive ? Not available INSTILL 1 SPRAY IN EACH NOSTRIL ONCE DAILY folic acid 1 mg tablet Active ? Not avail able TAKE 1 TABLET BY MOUTH EVERY MORNING FreeStyle Lite Strips Active ? Not availa ble TEST BLOOD SUGAR THREE TIMES DAILY furosemide 40 mg tablet Active ? Not avai lable TAKE 1 TABLET BY MOUTH EVERY MORNING gabapentin 300 mg capsule Active ? Not av ailable TAKE 1 CAPSULE BY MOUTH AT BEDTIME Gas Relief Extra Strength 125 mg capsule Active ? Not available TAKE 1 CAPSULE BY MOUTH EVERY 6 HOURS NEEDED FOR GAS Radha-Dryl 12.5 mg/5 mL oral liquid Active ? Not available TAKE 10 ML BY MOUTH FOUR TIMES DAILY FOR 14 DAYS NEEDED FOR PAIN (MOUTH) hydralazine 25 mg tablet Active ? Not erinn ilable TAKE 1 TABLET BY MOUTH TWICE DAILY IN THE MORNING AND IN THE EV ENING ipratropium bromide 21 mcg (0.03 %) nasal spray Active ? Not available USE 2 SPRAYS IN EACH NOSTRIL TWICE DAILY latanoprost 0.005 % eye drops Active ? No t available PLACE 1 DROP IN EACH EYE ONCE DAILY AT NIGHT levofloxacin 500 mg tablet Active ? Not a vailable TAKE 1 TABLET BY MOUTH EVERY DAY Lidocaine Viscous 2 % mucosal solution Active ? Not available TAKE 10 ML BY MOUTH FOUR TIMES DAILY FOR 14 DAYS NEEDED FOR PAIN (MOUTH) Mintox Maximum Strength 400 mg-400 mg-40 mg/5 mL oral suspension Active ? Not available TAKE 10 ML BY MOUTH FOUR TIMES DAILY FOR 14 DAYS montelukast 10 mg tablet Active ? Not erinn ilable TAKE 1 TABLET BY MOUTH EVERY EVENING Novolog Flexpen U-100 Insulin aspart 100 unit/mL (3 mL) subcutan eous Active ? Not available INJECT 5-10 UNITS SUBCUTANEOUSLY THREE TIMES DAILY DIRECTED pantoprazole 40 mg tablet,delayed release Active ? Not available TAKE 1 TABLET BY MOUTH EVERY MORNING polyethylene glycol 3350 17 gram oral powder packet Active ? Not available DISSOLVE 1 PACKET IN 4 TO 8 OUNCES (120 -240 ML) OF WATER ONCE DAILY. NO USE EVERY DAY POR MORE THAN 1-2 WEEKS prednisone 20 mg tablet Active ? Not avai lable TAKE 2 TABLETS BY MOUTH EVERY DAY sucralfate 1 gram tablet Active ? Not erinn ilable TAKE 2 TABLETS BY MOUTH ONCE DAILY Symbicort 160 mcg-4.5 mcg/actuation HFA aerosol inhaler Active ? Not available tobramycin 0.3 %-dexamethasone 0.1 % eye drops,suspension Active ? Not available INSTILL 1 DROP IN EACH EYE FOUR TIMES DAILY Toujeo SoloStar U-300 Insulin 300 unit/mL (1.5 mL) Active ? Not available subcutaneous pen Tradjenta 5 mg tablet Active ? Not availa ble TAKE 1 TABLET BY MOUTH EVERY MORNING TRUEplus Lancets 33 gauge Active ? Not av ailable TEST BLOOD SUGAR 3 TIMES A DAY UltiCare Pen Needle 32 gauge x Active ? Not available Problems None recorded. Procedures None recorded. Results Lab Results Date Name Specimen Result Interpretation Description Value Range Status Address ? 02/16/2022 CBC W/ Auto High Wbc 17.6 K/mm3 (4.0-11.0) Final [facility] K/mm3 Reference Laboratori es: [address], [place] ? ? ? Rbc 5.07 M/mm3 (4.20-5.40) Final [facility] M/mm3 Reference Laborator[facility]: [address], [place] ? ? ? Hgb 11.9 gm/dL (11.7-15.5) Final [facility] gm/dL Reference Laboratori es: [address], [place] ? ? ? Hct 40.2 % (35.7-45.8) Final [facility] % Reference [facility]: [address], [place] ? ? Low Mcv 79.3 fL (80.0-100.0 Final [facility] [place] ) fL Reference Laboratori es: [address], [place] ? ? Low Mch 23.5 pg (27.0-34.0) Final [facility] [place] pg Reference Laboratori es: [address], [place] ? ? Low Mchc 29.6 g/dL (33.0-37.0) Final [facility] g/dL Reference Laborator[facility]: [address], [place] ? ? ? Plt 340 K/mm3 (150-460) Final [facility] [place] K/mm3 Reference Laboratori es: [address], [place] ? ? ? RDW-SD 45.1 fL (<47.0) fL Final [facility] [place] Reference Laboratori es: [address], [place] ? ? ? Mpv 9.9 fL (9.4-12.4) [facility]: [address], [place] ? ? ? Automated 0.0 #/100 ? Final [facility] NRBC WBC's Reference Laboratori es: [address], [place] ? ? ? Abs. NRBC 0.0 K/mm3 ? Final [facility] Reference Laboratori es: [address], [place] ? ? High Neut # 13.8 K/mm3 (1.3-7.0) Final [facility] K/mm3 Reference Laboratori [facility]: [address], [place] ? ? ? Lymph # 2.2 K/mm3 (0.8-3.1) Final [facility] K/mm3 Reference Laborator[facility]: [address], [place] ? ? High [place]# 1.3 K/mm3 (0.4-0.9) Final [facility] [place] K/mm3 Reference Laboratori es: [address], [place] ? ? ? Eo # 0.2 K/mm3 (0.0-0.4) Final [facility] [place] K/mm3 Reference Laboratori es: [address], [place] ? ? ? Baso # 0.1 K/mm3 (0.0-0.1) Final [place] [facility] K/mm3 Reference Laboratori es: [address], [place] ? ? ? Abs. Imm 0.1 K/mm3 ? Final [facility] [place] Gran Reference Laboratori es: [address], [place] ? ? High Neut 78.3 % (44-76) % Final [facility] Reference [facility]: [address], [place] ? ? Low Lymph 12.4 % (15-43) % Final [facility] Reference [facility]: [address], [place] ? ? ? Monocyte 7.3 % (4.5-10.5) Final [place] [facility] % Reference Laboratori es: [address], [place] ? ? ? Eo 1.2 % (0-6) % Final [facility] Reference Laborator[facility]: [address], [place] ? ? ? Baso 0.3 % (0-2) % Final [facility] Reference Laboratori [facility]: [address], [place] ? ? ? Imm Gran 0.5 % ? Final [facility] Reference [facility]: [address], [place] 02/16/2022 BMP, Serum High Glucose 328 mg/dL (70-99) Fin al [facility] or Plasma mg/dL Referen ce Laboratori es: [address], [place] ? ? ? Bun 19 mg/dL (8-23) Final [facility] mg/dL Reference Laboratori es: [address], [place] ? ? High Creatinine 1.3 mg/dL (0.5-1.0) Final [facility] mg/dL Reference Laboratori es: [address], [place] ? ? ? Sodium 136 mmol/L (133-145) Final [facility] mmol/L Reference Laboratori [facility]: [address], [place] ? ? ? Potassium 4.0 mmol/L (3.6-5.2) Final [facility] mmol/L Reference Laboratori [facility]: [address], [place] ? ? Low Chloride 97 mmol/L (98-107) Final [facility] mmol/L Reference Laboratori [facility]: [address], [place] ? ? ? Bicarbonat 27 mmol/L (22-29) Final [facility] e mmol/L Reference Laboratori es: [address], [place] ? ? ? Anion Gap 12 (4-17) Final [facility] Reference [facility]: [address], [place] ? ? ? Calcium 8.9 mg/dL (8.6-10.5) Final [facility] mg/dL Reference Laboratori es: [address], [place] ? ? ? Estimated 44 ? Final [facility] GFR mL/min/1.7 Refere nce Creatinine 3 M2 Labora tories: [address], [place] 02/16/2022 Urinalysis ? Appear/col ? ? Ananya l [facility] W/reflex or Referenc e Culture Laborator ies: [address], [place] ? ? ? Sp. 1.008 (1.002-1.03 Final [facility] [place] 0) Reference Laboratori es: [address], [place] ? ? ? Urine pH 6.0 (5.0-8.0) Final [facility] [place] Reference Laboratori es: [address], [place] ? ? ABNORMAL Urine 1+ (neg) Final [facility] Albumin Reference Laboratori es: [address], [place] ? ? ? Urine negative (neg) Final [facility] Glucose Reference Laboratori es: [address], [place] ? ? ? Urine negative (neg) Final [facility] Ketones Reference Laboratori es: [address], [place] ? ? ? Urine negative (neg) Final [facility] Bilirubin Referen ce Laboratori es: [address], [place] ? ? ? Urine negative (neg) Final [facility] Hemoglobin Refere nce Laboratori es: [address], [place] ? ? ? Urine negative (neg) Final [facility] Nitrite Reference Laboratori es: [address], [place] ? ? ? Urine negative (neg) Final [facility] Leukocyte Referen ce Laboratori es: [address], [place] ? ? ? Urobilinog normal (norm) Final [facility] mg/dL mg/dL Reference Laboratori es: [address], [place] ? ? ? Urine Wbcs 1 /hpf (0-5) /hpf Final [facility] Reference Labor[facility]: [address], [place] ? ? ? Urine Rbcs 1 /hpf (0-3) /hpf Final [facility] Reference Labor[facility]: [address], [place] ? ? ABNORMAL Bacteria slight hpf (neg) hpf Final [facility] Reference Laboratori es: [address], [place] ? ? ? Squamous 1 /hpf (0-8) /hpf Final [facility] Epith Reference Laboratori es: [address], [place] ? ? ? Clarity clear (clear) Final [facility] Reference Laborator[facility]: [address], [place] ? ? ? Culture culture ? Final [facility] Indication not Refere nce indicated Laborat ories: [address], [place] 02/16/2022 Urinalysis, ? Leukocytes neg ? ? Main - Insted: Dip[address], [place] ? ? ? Nitrite negative ? ? Main - Insted: winter, [place] ? ? ? Protein 4+ ? ? Main - I nsted: [address], [place] ? ? ? Ketone 2+ ? ? Main - In sted: [address], [place] ? ? ? Glucose negative ? ? Main - Insted: [address], [place] 02/16/2022 Cmp, Whole ? Alb 2.8 ? ? Ma in - Insted: Blood + winter [facility] [address], [place] ? ? ? Alp 114 ? ? Main - Ins giancarlo: [address], [place] ? ? ? Alt 12 ? ? Main - Ins giancarlo: winter, [place] ? ? ? Ast 18 ? ? Main - Ins giancarlo: winter, [place] ? ? ? Bun 17 ? ? Main - Ins giancarlo: winter, [place] ? ? ? Ca 9.8 ? ? Main - Ins giancarlo: winter [address], [place] ? ? ? Ci- normal ? ? Main - Ins giancarlo: winter [place], [place] ? ? ? Cre 1.3 ? ? Main - Ins giancarlo: winter [place], [place] ? ? ? Glu 326 ? ? Main - Ins giancarlo: winter [place], [place] ? ? ? K+ 3.8 ? ? Main - Ins giancarlo: winter [place], [place] ? ? ? Na+ 138 ? ? Main - Ins giancarlo: winter [place], [place] ? ? ? Tco2 27 ? ? Main - Ins giancarlo: winter [place], [place] Past Encounters 02/16/2022 Acute Low Back Pain; Ketonuria Hanane Mena MD: [place] [phone], Ph. Social History None recorded. Vaccine List None recorded. Plan of Care Reminders Provider Appointments None recorded. ? ? Lab None recorded. ? ? Referral None recorded. ? ? Procedures None recorded. ? ? Surgeries None recorded. ? ? Imaging None recorded. ? ? Vitals Height Weight Blood Pressure (1) 5 ft (1) 1 lbs (1) 164/63 mm[Hg] (2) 5 ft 1 in (2) 220 lbs (2) 164/63 mm[Hg]
--- OUTSIDE RECORDS SUMMARY | 2022-07-29 17:41 | XMS_ITS | Continuity of Care Document ---
:1945 Author Organization [facility] Address [address] [place] [address]- Care Team Providers Name Role Phone Preston VORA, Daniel Garcia Primary Care Physician [place] [facility] [place]22 [facility] [address] [place] [id number] Allergies, Adverse Reactions, Alerts Substance Reaction Severity [...] Tablet Start Date: 05/20/20 Status: OrderedVitamin D 41053 iu oral capsule 50,000 International_Units, 1, capsule, [...]
--- OUTSIDE RECORDS SUMMARY | 2022-07-29 17:41 | XMS_ITS | Continuity of Care Document ---
:1945 Author Organization [facility] Address [address] [place] [id number]- Care Team Providers Name Role Phone Preston VORA, Daniel Garcia Primary Care Physician Encounter [facility] [place] Date(s): 04/03/22 - 05/03/22 [facility] [address] [place] [id number] Allergies, Adverse Reactions, Alerts Substance Reaction Severity [...] Tablet Start Date: 05/20/20 Status: OrderedVitamin D 52232 iu oral capsule 50,000 International_Units, 1, capsule, [...]
--- OUTSIDE RECORDS SUMMARY | 2022-07-29 17:41 | XMS_ITS | Continuity of Care Document ---
:1945 Author Organization [facility] Address [address] [place] [phone]- Care Team Providers Name Role Phone Samm VORA, Marycarmen Primary Care Physician Encounter [facility] [place] Date(s): 04/22/20 - 04/29/20 [facility] [address] [place] [address]- [facility] Attending Physician: Nicolas Perez MD Admitting Physician: Nicolas Perez MD Referring Physician: Donavan Tellez MD Allergies, Adverse Reactions, Alerts Substance Reaction [...] Aerosol Start Date: 06/23/18 Status: OrderedVitamin D 02959 iu oral capsule 50,000 International_Units, 1, capsule, By Mouth, Every week, Refills 0, Maintenance, 06/23/18 7:02:38 EDT Start Date: 06/23/18 Status: Ordered Problem List Condition Effective Dates Status Health Status Informant Asthma(Confirmed) Active Cardiac catheterization(Confirmed) Active Diabetes mellitus(Confirmed) Active Hyperlipidemia(Confirmed) Active Hypertension(Confirmed) Active Vital Signs Most recent to oldest [Reference Range]: 1 Height 142 cm (04/22/20 3:03 PM) Weight 88.8 kg (04/22/20 3:03 PM) Body Mass Index [18.5-24.99] 44.04 *>HHI* (04/22/20 3:03 PM) Blood Pressure [90-138/55-84 mm Hg] 132/64 mm Hg (04/22/20 3:03 PM) Blood pressure sites Arm, left (04/22/20 3:03 PM) Social History Social History Type Response Smoking Status Never (less than 100 in life time) entered on: 12/21/18 Sex
--- OUTSIDE RECORDS SUMMARY | 2022-07-29 17:41 | XMS_ITS | Continuity of Care Document ---
:1945 Author Organization [facility] Address [address] [place] [phone]- Care Team Providers Name Role Phone Preston VORA, Daniel Garcia Primary Care Physician [phone] Encounter [facility] [place] [id number] Date(s): 04/16/22 - 05/16/22 [facility] [address] [place] [id number]- Attending Physician: Janae García Admitting Physician: AdmtrJanae Referring Physician: Admtr, Ar8 Allergies, Adverse Reactions, [...] Tablet Start Date: 05/20/20 Status: OrderedVitamin D 17313 iu oral capsule 50,000 International_Units, 1, capsule, [...]
--- OUTSIDE RECORDS SUMMARY | 2022-07-29 17:41 | XMS_ITS | Continuity of Care Document ---
:1945 Author Organization [facility] Address [address] [address] Care Team Providers Name Role Phone Samm VORA, Marycarmen Primary Care Physician Encounter [facility] [place] Date(s): 05/03/20 - 06/02/20 [facility] [address] [place] [address]- [facility] Allergies, Adverse Reactions, Alerts Substance Reaction [...] Tablet Start Date: 05/20/20 Status: OrderedVitamin D 22229 iu oral capsule 50,000 International_Units, 1, capsule, [...]
--- OUTSIDE RECORDS SUMMARY | 2022-07-29 17:41 | XMS_ITS | Continuity of Care Document ---
:1945 Author Organization [facility] Address [address] [place] [address]- Care Team Providers Name Role Phone Samm VORA, Marycarmen Primary Care Physician Encounter [facility] [place] Date(s): 08/12/21 - 08/12/[address] [address] Discharge Disposition: A-D/C Home Attending Physician: Fan Lutz MD Admitting Physician: Fan Lutz MD Referring Physician: Fan Lutz MD Allergies, [...] Tablet Start Date: 05/20/20 Status: OrderedVitamin D 28114 iu oral capsule 50,000 International_Units, 1, capsule, By Mouth, Every week, Refills 0, Maintenance, 06/23/18 7:02:38 EDT Start Date: 06/23/18 Status: Ordered Problem List Condition Effective Dates Status Health Status Informant Asthma(Confirmed) Active Cardiac catheterization(Confirmed) Active Diabetes mellitus(Confirmed) Active Hyperlipidemia(Confirmed) Active Hypertension(Confirmed) Active Vital Signs Most recent to oldest [Reference Range]: 1 2 Height 153 cm 153 cm (08/12/21 2:10 PM) (08/12/21 2:10 PM) Weight 92.6 kg 92.6 kg (08/12/21 2:10 PM) (08/12/21 2:10 PM) Oxygen Saturation [94-100 %] 99 % (08/12/21 2:10 PM) Pulse Rate [55-90 bpm] 58 bpm (08/12/21 2:10 PM) Body Mass Index [18.5-24.99] 39.56 *>HHI* (08/12/21 2:10 PM) Blood Pressure [90-138/55-84 mm Hg] 149/48 mm Hg *H* (08/12/21 2:10 PM) Respiratory Rate [16-30 br/min] 15 br/min *L* (08/12/21 2:10 PM) Temperature [96.8-100.4 DegF] 97.6 DegF (08/12/21 2:10 PM) Mode of Delivery (Oxygen) Room air (08/12/21 2:10 PM) Blood pressure sites Arm, left (08/12/21 2:10 PM) Temperature Route Temporal (08/12/21 2:10 PM) Dry Weight 92.6 kg 92.6 kg (08/12/21 2:10 PM) (08/12/21 2:10 PM) Social History Social History Type Response Smoking Status Never (less than 100 in life time) entered on: 12/21/18 Sex
--- OUTSIDE RECORDS SUMMARY | 2022-07-29 17:41 | XMS_ITS | Continuity of Care Document ---
:1945 Author Organization [facility] Address [address] [address]- Care Team Providers Name Role Phone Samm VORA, Marycarmen Primary Care Physician [place] [facility] [place](s): 07/10/20 - 08/09/20 [facility] [address] [address] Attending Physician: Janae García Admitting [...] Tablet Start Date: 05/20/20 Status: OrderedVitamin D 92303 iu oral capsule 50,000 International_Units, 1, capsule, [...]
--- OUTSIDE RECORDS SUMMARY | 2022-07-29 17:41 | XMS_ITS | Continuity of Care Document ---
:1945 Author Organization [facility] Address [address] [address]- Care Team Providers Name Role Phone Samm VORA, Marycarmen Primary Care Physician En[place] [facility] [place] Date(s): 07/10/20 - 07/17/20 [facility] [address] [place] [address] [facility] Attending Physician: Donavan Tellez MD Referring Physician: Marycarmen Quijano MD Allergies, [...] Tablet Start Date: 05/20/20 Status: OrderedVitamin D 86401 iu oral capsule 50,000 International_Units, 1, capsule, By Mouth, Every week, Refills 0, Maintenance, 06/23/18 7:02:38 EDT Start Date: 06/23/18 Status: Ordered Problem List Condition Effective Dates Status Health Status Informant Asthma(Confirmed) Active Cardiac catheterization(Confirmed) Active Diabetes mellitus(Confirmed) Active Hyperlipidemia(Confirmed) Active Hypertension(Confirmed) Active Vital Signs Most recent to oldest [Reference Range]: 1 Height 142 cm (07/10/20 1:02 PM) Weight 93 kg (07/10/20 1:02 PM) Oxygen Saturation [94-100 %] 98 % (07/10/20 1:02 PM) Pulse Rate [55-90 bpm] 64 bpm (07/10/20 1:02 PM) Body Mass Index [18.5-24.99] 46.12 *>HHI* (07/10/20 1:02 PM) Blood Pressure [90-138/55-84 mm Hg] 140/68 mm Hg *H* (07/10/20 1:02 PM) Respiratory Rate [16-30 br/min] 16 br/min (07/10/20 1:02 PM) Mode of Delivery (Oxygen) Room air (07/10/20 1:02 PM) Blood pressure sites Arm, left (07/10/20 1:02 PM) Weight Obtained Via Patient/family stated (07/10/20 1:02 PM) Social History Social History Type Response Smoking Status Never (less than 100 in life time) entered on: 12/21/18 Sex
[2022-07-29 18:20] LABS: INTERNATIONAL NORM RATIO 1.1 (0.9-1.1); Prothrombin Time 12.3 SEC (10.0-13.1)
[2022-07-29 18:23] LABS: Partial Thromboplastin Time 31.9 SEC (26.0-36.4)
[2022-07-29 18:26] LABS: Magnesium 2.1 mg/dL (1.6-2.6)
[2022-07-29 18:28] LABS: B Type Natriuretic Peptide 438 pg/mL (<100)
[2022-07-29 18:44] LABS: Troponin-I High Sensitivity 16.1 ng/L (<3.5-17.0)
[2022-07-29 19:10] VITALS: PULSE 75; O2SAT 88
--- NOTE | 2022-07-29 19:11 | PC.NURSE ---
Assisting primary RN- Ambulatory O2 saturation 88-90%. MD Aware. Plan for admission for pneumonia.
[2022-07-29] MEDS: Furosemide 40 MG/4 ML VIAL IVPUSH (19:54)
[2022-07-29] MEDS: cefTRIAXone sodium 1 GM in 0.9 % Sodium Chloride 50 ML IV (19:54)
[2022-07-29] MEDS: Azithromycin 500 MG TABLET PO (19:54)
--- NOTE | 2022-07-29 20:25 | PM.IMHP ---
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 She states that her symptoms have gotten progressively worse over the 2 days.? She has shortness of breath, cough, and generally feels unwell.? States that she feels tight from her throat to her epigastric area, and has wheezing.? She does not report diaphoresis, pain on inspiration, nausea, vomiting, diarrhea, abdominal pain, abdominal distention, dysuria, fevers or chills. On arrival, vital signs stable however patient desaturated to 88% on ambulation. Resume mild leukocytosis 12.4. No tachycardia, hypotension, tachypnea. Renal function electrolyte levels are stable. Glucose 140. Initial troponin 20.0, repeat 16.1. BNP 438. EKG NSR, rate [address]/T-wave abnormality, unchanged from prior EKG. CXR showed mild increased pulmonary vascular and interstitial markings suggesting worsening congestion with increased right basilar infiltrate as well. Follow-up chest CT showed patchy ground-glass i patchy opacities worsened from prior study with small bilateral pleural effusions increased from prior study. No dense consolidation observed. Patient to be admitted for pneumonia with COPD exacerbation and ambulatory hypoxia with CHF exacerbation. Her daughter who is healthcare proxy tells me that she is due to have a cardiac catheterization at [facility] on August 02. Review of Systems Review of Systems: General: No fevers, malaise, unintentional weight loss HEENT: No blurred vision or diplopia. No sore throat, rhinorrhea, nasal congestion Cardiovascular: + chest burning, +edema. No chest pressure, palpitations Respiratory: +orthopnea, +jett, wheezing, cough. GI: No abdominal pain, nausea, vomiting, diarrhea, constipation, melena, hematochezia : No dysuria, hematuria, increased urinary frequency Neuro: No headaches, weakness, paresthesias Skin: No rashes or lesions [facility] Medical History Aortic stenosis Asthma Back pain Chronic kidney disease CKD (chronic kidney disease) stage 3, GFR 30-59 ml/min Diabetes mellitus Diabetic nephropathy associated with type 2 diabetes mellitus Diabetic polyneuropathy associated with type 2 diabetes mellitus Dyslipidemia GERD (gastroesophageal reflux disease) HLD (hyperlipidemia) Hypertension Infected cyst of skin skilled nursing (current) use of insulin Morbid obesity JOSE (obstructive sleep apnea) 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 T2DM (type 2 diabetes mellitus) 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, with long-term current use of insulin Vitamin D deficiency Family History Sister History of renal pelvis cancer Father Suicide Mother Lung disease Diabetes mellitus Surgical History History of breast lump/mass excision History of cholecystectomy History of tubal ligation Social History Household Members: Family Housing: House Do you presently have visiting nurse or other home services: Yes (chute puller) Alcohol intake: never Patient Tobacco Use Status: Former Tobacco user Tobacco use type: Cigarette Years Smoked: 5 years e-Cigarette/Vaping Use: Never Used Second Hand Smoke Exposure: No Advance Directives: No Advance Directives Information Provided: No service: No Current occupational status: unemployed Gender identity: Female Cognitive needs: Yes Hearing needs: No Vision needs: No Meds Allergies Allergy/AdvReac Type Severity Reaction Status Date / Time acetaminophen [Percocet] Allergy Intermediate Itching Verified 06/25/22 11:13 ibuprofen [From MOTRIN] Allergy Intermediate RASH Verified 06/25/22 11:13 Motrin Allergy Intermediate high blood Verified 06/25/22 11:13 pressure oxycodone [From PERCOCET] Allergy Intermediate ITCHING Verified 06/25/22 11:13 Active Medications: Current Medications Pharmacy Consult (Consult Rx Perform Med Rec) 1 each MISCELLANE ONCE STA Stop: 07/29/22 20:01 Home Medications Medication Instructions Recorded Confirmed Last Taken Type atorvastatin 40 mg tablet 40 mg PO BEDTIME 01/18/21 07/29/22 07/28/22 History carvedilol 25 mg tablet 25 mg PO BID 04/07/29/22 07/29/22 History montelukast 10 mg tablet 10 mg PO BEDTIME 01/18/21 07/29/22 07/28/22 History gabapentin 300 mg capsule 300 mg PO BEDTIME 02/20/21 07/29/22 07/21/22 History albuterol sulfate 90 mcg/actuation 2 puff PO Q4-6H PRN dyspnea 08/21/21 07/29/22 Unknown History aerosol inhaler (Ventolin HFA) aspirin 81 mg tablet,delayed 81 mg PO BEDTIME 08/21/21 07/29/22 07/28/22 History release brimonidine 0.2 % eye drops 1 drp ophthalmic (eye) BID 08/21/21 07/29/22 07/29/22 History cyanocobalamin (vitamin B-12) 1,000 mcg PO DAILY 08/21/21 07/29/22 07/29/22 History 1,000 mcg tablet folic acid 1 mg tablet 1 mg PO QAM 08/21/21 07/29/22 07/29/22 History latanoprost 0.005 % eye drops 1 drp ophthalmic (eye) BEDTIME 08/21/21 07/29/22 07/28/22 History pantoprazole 40 mg tablet,delayed 40 mg PO DAILY 08/21/21 07/29/22 07/29/22 History release fluticasone propionate 50 1 spray intranasal DAILY 06/18/22 07/29/22 07/29/22 History mcg/actuation nasal spray,suspension cetirizine 5 mg tablet 1 tab PO DAILY PRN allergies 07/29/22 07/29/22 Unknown History cilostazol 100 mg tablet 1 tab PO BID 07/29/22 07/29/22 07/29/22 History ergocalciferol (vitamin D2) 1,250 1 cap PO [place] 07/29/22 07/29/22 07/26/22 History mcg (50,000 unit) capsule hydralazine 50 mg tablet 50 mg PO BID 07/29/22 07/29/22 07/29/22 History insulin aspart U-100 100 unit/mL 1 sliding scale dose subcut QIDACHS 07/29/22 07/29/22 07/29/22 History (3 mL) subcutaneous pen (Novolog Flexpen U-100 Insulin aspart) linagliptin 5 mg tablet (Tradjenta) 1 tab PO QAM 07/29/22 07/29/22 07/29/22 History polyethylene glycol 3350 17 gram 17 g PO DAILY 07/29/22 07/29/22 07/29/22 History oral powder packet (HealthyLax) simethicone 125 mg capsule (Gas 1 tab PO Q8H PRN abdominal pain 07/29/22 07/29/22 Unknown History Relief Extra Strength) sucralfate 1 gram tablet 2 tab PO DAILY 07/29/22 07/29/22 07/29/22 History Physical Exam Vital Signs and Narrative: Vital Signs: Last Vital Signs Temp 97.3 F 07/29/22 10:05 Pulse 75 07/29/22 19:10 Resp 20 07/29/22 10:05 BP 146/51 H 07/29/22 10:05 Pulse Ox 88 L 07/29/22 19:10 O2 Del Method 07/29/22 19:10 BMI result Body Mass Index 37.6 Constitutional - Awake and Alert, No apparent distress Eyes - PERRLA, EOMI Cardiovascular - S1S2, RRR, 2+ ble edema Respiratory - Normal lung expansion, Normal respiratory effort, No respiratory distress, CTA bilaterally Gastrointestinal - NT / ND; +BS; No rebound or guarding Extremities - no calf tenderness bilaterally, no swelling Musculoskeletal - Normal inspection, normal ROM Skin - Warm/Dry Neurological - Alert & oriented x3, CN II-XII in tact. 5/5 strength BUE and BLE Psychological - Appropriate affect Results Labs CBC and Chem 7: 07/29/22 10:34 07/29/22 10:34 Labs: Laboratory Results - last 24 hr 07/29/22 07/29/22 07/29/22 10:34 10:34 10:34 MCV 75.7 L MCH 24.3 L MCHC 32.2 RDW 17.1 H Plt Count 373 MPV 9.5 Immature Gran % (Auto) 0.4 Neut % (Auto) 80.8 H Lymph % (Auto) 10.7 L [place] % (Auto) 5.2 Eos % (Auto) 2.3 Baso % (Auto) 0.6 Lymph # (Auto) 1.3 [place] # (Auto) 0.6 Eos # (Auto) 0.3 Baso # (Auto) 0.1 Abs Immat Gran (auto) 0.05 H Absolute Neuts (auto) 10.0 H Absolute Nucleated RBC 0.000 Nucleated RBC % (auto) 0.0 PT INR APTT Anion Gap 18 Estim Creat Clear Calc 36.8 Estimated GFR 38 Random Glucose 140 H Calcium 9.6 Magnesium 2.1 Total Bilirubin 0.7 Direct Bilirubin 0.4 AST 17 ALT 15 Alkaline Phosphatase 141 H Troponin I High Sens 20.0 H D B-Natriuretic Peptide Total Protein 7.6 Albumin 3.8 Lipase 32 Influenza Type A (PCR) Influenza Type B (PCR) RSV RNA Qual (PCR) SARS-CoV-2 RNA (RT-PCR) 07/29/22 07/29/22 07/29/22 10:34 17:48 17:48 MCV MCH MCHC RDW Plt Count MPV Immature Gran % (Auto) Neut % (Auto) Lymph % (Auto) [place] % (Auto) Eos % (Auto) Baso % (Auto) Lymph # (Auto) [place] # (Auto) Eos # (Auto) Baso # (Auto) Abs Immat Gran (auto) Absolute Neuts (auto) Absolute Nucleated RBC Nucleated RBC % (auto) PT INR APTT Anion Gap Estim Creat Clear Calc Estimated GFR Random Glucose Calcium Magnesium Total Bilirubin Direct Bilirubin AST ALT Alkaline Phosphatase Troponin I High Sens 16.1 B-Natriuretic Peptide 438 H Total Protein Albumin Lipase Influenza Type A (PCR) NEGATIVE Influenza Type B (PCR) NEGATIVE RSV RNA Qual (PCR) NEGATIVE SARS-CoV-2 RNA (RT-PCR) NEGATIVE 07/29/22 07/29/22 17:48 17:48 MCV MCH MCHC RDW Plt Count MPV Immature Gran % (Auto) Neut % (Auto) Lymph % (Auto) [place] % (Auto) Eos % (Auto) Baso % (Auto) Lymph # (Auto) [place] # (Auto) Eos # (Auto) Baso # (Auto) Abs Immat Gran (auto) Absolute Neuts (auto) Absolute Nucleated RBC Nucleated RBC % (auto) PT 12.3 INR 1.1 APTT 31.9 Anion Gap Estim Creat Clear Calc Estimated GFR Random Glucose Calcium Magnesium Cancelled Total Bilirubin Direct Bilirubin AST ALT Alkaline Phosphatase Troponin I High Sens B-Natriuretic Peptide Total Protein Albumin Lipase Influenza Type A (PCR) Influenza Type B (PCR) RSV RNA Qual (PCR) SARS-CoV-2 RNA (RT-PCR) Imaging Radiologist's Impressions: Impressions Chest X-Ray 07/29/22 10:29 IMPRESSION: Mild increased pulmonary vascular and interstitial markings suggestive of worsening congestion. Increased right basilar infiltrate as well. Chest CT 07/29/22 18:10 IMPRESSION: Patchy groundglass airspace changes are again seen slightly worsened from the 07/01/2022 study. Small bilateral pleural effusions are also seen increased from the 07/01/2022 study. I do not appreciate any dense consolidation. 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 Discussed with Dr. Ayers, infectious etiology unlikely given presentation -Pt with orthopnea, jett, and ambulatory hypoxia -IV lasix 40mg BID -Follows with [facility]. Obtain most recent echocardiogram. If unable, check echo -Cardiology consulted -Strict I&O -Cardiac diet -Admit to telemetry -follow BNP and BMP # ambulatory hypoxia -patient with elevated BNP, orthopnea, PND and lower extremity edema. Likely secondary to CHF -troponins negative -no hypoxia at rest # insulin-dependent type 2 diabetes -POC glucose -diabetic diet -dose adjusted insulin glargine -Humalog on sliding scale # hypertension-stable -continue carvedilol, Lasix, and amlodipine -HLD -continue statin -peripheral artery disease -continue cilostazol and aspirin -COPD-no acute exacerbation -dyspnea and ambulatory hypoxia secondary to CHF exacerbation -no wheezing on exam. Patient also denied any improvement in symptoms with albuterol inhaler. -continue maintenance inhalers -albuterol p.r.n. DVT prophylaxis-heparin -full code -Healthcare proxy, daughter, Vero Castañeda ([phone]) Patient requires inpatient stay of at least 2 midnights due to acute CHF exacerbation with ambulatory hypoxia requiring IV diuresis and close monitoring for further cardiopulmonary decompensation. Quality Stroke Does the patient have a stroke diagnosis?: No VTE Prior VTE?: No VTE Risk Level:: Medical - moderate - high VTE Device Contraindication: Treatment Not Indicated VTE Drug Contraindication: N/A - Med Ordered
--- NOTE | 2022-07-29 20:59 | PHA.MEDREC ---
Pharmacy Consult ? Medication Reconciliation Pharmacy has completed the medication reconciliation.
--- OUTSIDE RECORDS SUMMARY | 2022-07-29 21:29 | XMS_ITS ---
:1945 Author Care Team Providers Name Role Phone [facility] Referring Provider [phone] [facility] Referring Provider [phone] Allergies None recorded. Medications Name Status Start [...] Auto High Wbc 17.6 K/mm3 (4.0-11.0) Final [facility] Diff K/mm3 Reference Laboratori es: [address] [...] ? Low Mcv 79.3 fL (80.0-100.0 Final [facility] ) fL Reference Laboratori es: [address], [place] ? ? Low Mch 23.5 pg (27.0-34.0) Final [facility] [place] pg Reference Laboratori es: [address], [place] ? ? Low Mchc 29.6 g/dL (33.0-37.0) Final [facility] g/dL Reference Laborator[facility]: [address], [place] ? ? ? Plt 340 K/mm3 (150-460) Final [facility] [place] K/mm3 Reference Laboratori es: [address], [place] ? ? ? RDW-SD 45.1 fL (<47.0) fL Final [facility] [place] Reference Laboratori es: [address], [place] ? ? ? Mpv 9.9 fL (9.4-12.4) [facility]: [address], [place] ? ? ? Automated 0.0 #/100 ? Final [facility] NRBC WBC's Reference Laboratori es: [address], [place] ? ? ? Abs. NRBC 0.0 K/mm3 ? Final [facility] Reference Laboratori es: [address], [place] ? ? High Neut # 13.8 K/mm3 (1.3-7.0) [facility] K/mm3 Reference Laborator[facility]: [address], [place] ? ? ? Lymph # 2.2 K/mm3 (0.8-3.1) Final [facility] K/mm3 Reference Laborator[facility]: [address], [place] ? ? High Rice# 1.3 K/mm3 (0.4-0.9) Final [facility] [place] K/mm3 Reference Laboratori es: [address], [place] ? ? ? Eo # 0.2 K/mm3 (0.0-0.4) Final [facility] [place] K/mm3 Reference Laboratori es: [address], [place] ? ? ? Baso # 0.1 K/mm3 (0.0-0.1) Final [facility] K/mm3 Reference Laborator[facility]: [address], [place] ? ? ? Abs. Imm 0.1 K/mm3 ? Final [facility] [place] Gran Reference Laboratori es: [address], [place] ? ? High Neut 78.3 % (44-76) % Final [facility] Reference [facility]: [address], [place] ? ? Low Lymph 12.4 % (15-43) % Final [facility] Reference [facility]: [address], [place] ? ? ? Monocyte 7.3 % (4.5-10.5) Final [facility] % Reference Laborator[facility] es: [address] [...] ? Sp. 1.008 (1.002-1.03 Final [facility] 0) Reference Laboratori es: [address], [place] ? ? ? Urine pH 6.0 (5.0-8.0) Final [facility] [place] Reference Laboratori es: [address], [place] ? ? ABNORMAL Urine 1+ (neg) Final [facility] Albumin Reference Laboratori es: [address], [place] ? ? ? Urine negative (neg) Final [facility] Glucose Reference Laboratori es: [address], [place] ? ? ? Urine negative (neg) Final [facility] Ketones Reference Laboratori es: [address], [place] ? ? ? Urine negative (neg) Final [facility] Bilirubin Referen ce Laboratori es: [address], [place] ? ? ? Urine negative (neg) Final [facility] Hemoglobin Refere nce Laboratori es: [address], [place] ? ? ? Urine negative (neg) Final [facility] Nitrite Reference Laboratori es: [address], [place] ? ? ? Urine negative (neg) Final [facility] Leukocyte Referen ce Laboratori es: [address] [...] ABNORMAL Bacteria slight hpf (neg) hpf Final [facility] Reference Laboratori es: [address], [place] ? ? ? Squamous 1 /hpf (0-8) /hpf Final [facility] Epith Reference Laboratori es: [address], [place] ? ? ? Clarity clear (clear) Final [facility] Reference [facility]: [address] [...] Ma in - Insted: Blood + winter [facility] [address], [place] ? ? ? [address] ? ? Main - Ins giancarlo: [address], [place] ? ? ? Alt [address] ? ? Main - Ins giancarlo: winter, [place] ? ? ? Ast 18 ? ? Main - Ins giancarlo: winter, [place] ? ? ? [address] ? ? Main - Ins giancarlo: winter, [place] ? ? ? Ca 9.8 ? [...] Mena MD: [place] [address], Ph. Social History None recorded. Vaccine List [...]
--- OUTSIDE RECORDS SUMMARY | 2022-07-29 21:29 | XMS_ITS ---
:1945 Author Care Team Providers Name Role Phone CHINTAN SOSA [address] [place] [address] OTHER [phone] Allergies None recorded. Medications Notes: med list reviewed see mar for a ccuracy Problems Name Status Onset Date Source ? Type 2 Diabetes Mellitus Active 01/29/2021 ? Hyperlipidemia Active 01/29/2021 ? Essential Hypertension Active 01/29/2021 ? Congestive Heart Failure Active 01/29/2021 ? Asthma Active 01/29/2021 ? Gastroesophageal Reflux Disease without Esophagitis Active 01/29/2021 ? SARS-CoV-2 Active 01/29/2021 ? Procedures Notes: breast lump excision, cholecyst ectomy, tubal ligation Results Lab Results None recorded. Past Encounters 02/19/2021 Asthma; Congestive Heart Failure; Essent ial Hypertension; Gastroesophageal Reflux Disease without Esophagitis; Hyperlipidemia; SARS-CoV-2; Type 2 Diabetes Mellitus Sumaya Santos [employer]IC: [address] [place] [address], Ph. 02/17/2021 Congestive Heart Failure; Type 2 Diabete s Mellitus Sumaya Santos [employer]IC: [address] [place] [address], Ph. 02/14/2021 SARS-CoV-2; Congestive Heart Failure Sumaya Santos [employer]CH[employer]IC: [address] [place] [address], Ph. 02/10/2021 Congestive Heart Failure; Asthma; SARS-C oV-2 Sumaya Santos [employer]IC: [address] [place] [address], Ph. 02/05/2021 Congestive Heart Failure; SARS-CoV-2; Ty pe 2 Diabetes Mellitus Sumaya Santos [employer]IC: [address] [place] [address], Ph. 02/03/2021 SARS-CoV-2; Congestive Heart Failure Sumaya Santos [employer] COMP[employer]ENT MECH[employer]IC: [address] [facility] , [place] [address], Ph. 01/31/2021 Essential Hypertension; Gastroesophageal Reflux Disease without Esophagitis; Hyperlipidemia; SARS-CoV-2; Type 2 Diabetes Mellitus; Peripheral Vascular Disease; Acute Nontraumatic Kidney Injury Joanne Almanza MD: [address] [facility] [address], Ph. 01/29/2021 Asthma; Congestive Heart Failure; Essent ial Hypertension; Gastroesophageal Reflux Disease without Esophagitis; Hyperlipidemia; SARS-CoV-2; Type 2 Diabetes Mellitus Sumaya Santos [employer]IC: [address] [facility] , [place] [address], Ph. Social History Tobacco Smoking Status Former Smoker Vaccine List Vaccine Type influenza, injectable, quadrivalent 06/05/2020 Plan of Care Reminders Provider Appointments None recorded. ? ? Lab None recorded. ? ? Referral None recorded. ? ? Procedures None recorded. ? ? Surgeries None recorded. ? ? Imaging None recorded. ? ? Vitals 02/19/2021 07:58AM Discharge Summary Height Blood Pressure 5 ft 1 in 134/60 mm[Hg] 02/17/2021 07:53AM Acute Rounding Visit Height Blood Pressure 5 ft 1 in 134/60 mm[Hg] 02/14/2021 02:55PM Acute Rounding Visit Height Blood Pressure 5 ft 1 in 134/60 mm[Hg] 02/10/2021 12:46PM Acute Rounding Visit Height Blood Pressure 5 ft 1 in 134/60 mm[Hg] 02/05/2021 07:52AM Acute Rounding Visit Height Blood Pressure 5 ft 1 in 134/60 mm[Hg] 02/03/2021 03:21PM Acute Rounding Visit Height Blood Pressure 5 ft 1 in 134/60 mm[Hg] 01/31/2021 06:43AM Telemed Admitting H&P Height Blood Pressure 5 ft 1 in 125/46 mm[Hg] 01/29/2021 08:53AM Initial Intake Note Height Weight BMI Blood Pressure 5 ft 1 in 223 lbs 42.1 kg/m2 139/59 mm[Hg]
[2022-07-29] MEDS: Gabapentin 300 MG CAPSULE PO (21:58)
[2022-07-29] MEDS: hydrALAZINE HCl 50 MG TABLET PO (21:58)
[2022-07-29] MEDS: Atorvastatin Calcium 40 MG TABLET PO (21:58)
[2022-07-29] MEDS: Montelukast Sodium 10 MG TABLET PO (21:58)
[2022-07-29] MEDS: Heparin Sodium,Porcine 5,000 UNIT/ML VIAL 5000 UNIT SUBCUT (21:59)
[2022-07-29] MEDS: carvediloL 25 MG TABLET PO (21:59)
[2022-07-29 22:15] VITALS: BP 145/58; PULSE 62; RESP 18; TEMP 36.7; O2SAT 93
[2022-07-29 22:18] LABS: Glucose, Whole Blood 168 mg/dL (60-115)
--- NOTE | 2022-07-29 22:31 | PC.NURSE ---
ASSUMED CARE OF PT AT 2220 ,PT GOT CHANGE INTO HOSPITAL ATTIRE ,PATIENT USE BEDSIDE COMMODE ,VOID LARGE AMOUNT OF URINE ,BS TAKEN ,FRESH PITCHER OF WATER GIVEN PT FAMILY MEMBER AT BEDSIDE .
[2022-07-30 01:28] LABS: Glucose, Whole Blood 155 mg/dL (60-115)
[2022-07-30 05:48] VITALS: BP 144/46; PULSE 63; RESP 14; TEMP 36.7; O2SAT 94
--- NOTE | 2022-07-30 05:51 | PC.NURSE ---
patient sleeping, chest rise and fall equal and unlabored. rings call walsh appropriately. using bedside commode with stand-by assist. will continue to round frequently
[2022-07-30] MEDS: Omeprazole 20 MG CAPSULE.DR PO (05:56)
[2022-07-30 06:46] LABS: Appearance Urine Clear; Color Urine Yellow; Glucose Urine UA Negative (Negative); Leukocyte Esterase Urine Negative (Negative); Nitrite Urine Negative (Negative); PH 5.5 (5.0-9.0); UMIC TRIGGER UACC YES; Urine Blood Negative (Negative); Urine Ketones Negative (Negative); Urine Protein 100 (2+) mg/dL (Neg-Trace)
[2022-07-30 07:01] LABS: RBC Urine 0-2 /HPF (0-2); WBC Urine 0-5 /HPF (0-5)
[2022-07-30 07:02] LABS: Bacteria Urine Trace (None Seen); Hyaline Casts Urine 0-2 /LPF (0-2)
[2022-07-30 07:03] LABS: MANUAL DIFF FLAG NO
[2022-07-30 07:05] LABS: Basophils Absolute Auto 0.1 X10*3/uL (0.0-0.2); Basophils Percent Auto 0.6 % (0-2); Eosinophils Absolute Auto 0.3 X10*3/uL (0.0-0.4); Eosinophils Percent Auto 2.7 % (0-4); Hematocrit 33.2 % (37.0-47.0); Hemoglobin 10.4 g/dl (12.0-16.0); Imm Gran Abs Auto 0.03 X10*3/uL (0.00-0.03); Imm Gran Pct Auto 0.3 % (0.0-0.4); Lymphocytes Absolute Auto 2.1 X10*3/uL (1.2-4.9); Lymphocytes Percent Auto 19.3 % (20-40); Mean Corpuscular HGB Conc 31.3 g/dl (31.0-35.0); Mean Corpuscular Hemoglobin 23.3 pg (27.0-33.0); Mean Corpuscular Volume 74.4 fL (80.0-98.0); Mean Platelet Volume 9.6 fL (9.4-12.3); Monocytes Absolute Auto 0.7 X10*3/uL (0.1-1.2); Monocytes Percent Auto 6.7 % (2-11); Neutrophils Absolute Auto 7.7 x10*3/uL (2.0-8.3); Neutrophils Percent Auto 70.4 % (45-73); Platelet Count 390 X10*3/uL (160-400); Red Blood Count 4.46 X10*6/uL (4.20-5.50); Red Cell Distribution Width 16.5 % (11.0-16.0)
--- NOTE | 2022-07-30 07:15 | PC.NURSE ---
Assumed care of patient at this time.
[2022-07-30 07:20] LABS: Anion Gap 15 (12-20); Blood Urea Nitrogen 19 mg/dL (9-16); Calcium 9.4 mg/dL (8.4-10.2); Carbon Dioxide 27 mmol/L (22-29); Chloride 106 mmol/L (96-108); Creatinine Clr Calc Pharmacy 38.8; Estimated Glomerular Filt Rate 40; Glucose Random 112 mg/dL (60-115); Potassium 3.9 mmol/L (3.3-5.1); Sodium 144 mmol/L (135-145)
[2022-07-30 07:22] LABS: Glucose, Whole Blood 106 mg/dL (60-115)
[2022-07-30 07:29] LABS: B Type Natriuretic Peptide 509 pg/mL (<100)
[2022-07-30] MEDS: Furosemide 40 MG/4 ML VIAL IVPUSH (07:36)
[2022-07-30] MEDS: Folic Acid 1 MG TABLET PO (07:37)
[2022-07-30] MEDS: polyethylene glycoL 3350 17 GM POWD.PACK PO (07:37)
[2022-07-30] MEDS: amLODIPine Besylate 10 MG TABLET PO (07:37)
[2022-07-30] MEDS: hydrALAZINE HCl 50 MG TABLET PO (07:37)
[2022-07-30] MEDS: carvediloL 25 MG TABLET PO (07:37)
[2022-07-30] MEDS: Insulin Glargine,Hum.rec.anlog 100 UNIT/ML 10 ML VIAL 24 UNIT SUBCUT (07:37)
[2022-07-30] MEDS: Sucralfate 1 GM TABLET 2 GM PO (07:37)
[2022-07-30] MEDS: Cyanocobalamin (Vitamin B-12) 1,000 MCG TABLET 1000 MCG PO (07:37)
[2022-07-30] MEDS: 0.9 % Sodium Chloride Flush 3 ML SYRINGE IVFLUSH (07:38)
[2022-07-30 08:00] VITALS: RESP 20; O2SAT 97
--- NOTE | 2022-07-30 09:03 | P.CONCA_ITS ---
History of Present Illness History of Present Illness Date of Service: 07/30/22 Requesting physician: Andrea Ayers Consult reason: congestive heart failure and aortic stenosis Chief complaint: CHF exacerbation w/ hypoxia, pneumonia Narrative: I was consulted to see Louis in cardiology consultation today as she came progressive symptoms of retrosternal chest pressure and feeling of congestion in her chest with shortness of breath with minimal exertion. Patient has prior history of critical aortic stenosis valve area of 0.6 centimeters sq and is currently being followed by Dr. James and under active evaluation for TAVR protocol. She was scheduled for elective cardiac catheterization on Wednesday. However she came to the hospital with progressive symptoms over the last couple of days. History was obtained with help of clinical product specialist. Patient says that with minimal exertion getting up she would get chest pressure and shortness of breath. She therefore decided to come to the emergency room. In emergency room a BNP is elevated in the 500 range with findings suggestive of heart failure along with flat troponins. EKG shows LVH with strain pattern. She is currently symptom-free and says she feels better. She thought that she had pneumonia. Chest x-ray finding consistent with interstitial edema. CT chest shows ground- glass opacity in right lung probably from residual COVID with no evidence of dense consolidation. Patient has prior history of diabetes which is uncontrolled, obesity, obstructive sleep apnea, hyperlipidemia, hypertension, residual COVID syndrome. Patient also has osteoarthritis with limited activity. She also has diffuse coronary disease by prior cardiac catheterization few years ago. Review of Systems Constitutional: Constitutional: Reports no additional constitutional complaints and Denies fever(s) Eyes: Eyes: Reports no additional eye complaints ENT: Reports system reviewed and no additional complaints, except as documented Cardiovascular: Cardiovascular: Reports chest pain with activity, Reports leg edema, Denies lightheadedness, Denies Loss of Consciousness, Denies palpitations and Reports dyspnea on exertion Respiratory: Respiratory: Reports no additional respiratory complaints and Reports dyspnea on exertion Gastrointestinal: Gastrointestinal: Reports no additional gastrointestinal complaints Genitourinary: Genitourinary: Reports no additional female genitourinary complaints Musculoskeletal: Musculoskeletal: Reports no additional musculoskeletal complaints Neurologic: Reports system reviewed and no additional complaints, except as documented Psychiatric: Psychiatric: Reports no additional psychiatric complaints Endocrine: Endocrine: Reports no additional endocrine complaints and Denies palpitations Hematologic/Lymphatic: Hematologic/Lymphatic: Reports no additional hematologic/lymphatic complaints Allergic/Immunologic: Allergic/Immunologic: Reports no additional allergic/immunologic complaints [facility], [facility] Past Medical History Medical History Aortic stenosis Asthma Back pain Chronic kidney disease CKD (chronic kidney disease) stage 3, GFR 30-59 ml/min Diabetes mellitus Diabetic nephropathy associated with type 2 diabetes mellitus Diabetic polyneuropathy associated with type 2 diabetes mellitus Dyslipidemia GERD (gastroesophageal reflux disease) HLD (hyperlipidemia) Hypertension Infected cyst of skin alf (current) use of insulin Morbid obesity JOSE (obstructive sleep apnea) 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 T2DM (type 2 diabetes mellitus) 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, with long- term current use of insulin Vitamin D deficiency Family History Family History Sister History of renal pelvis cancer Father Suicide Mother Lung disease Diabetes mellitus Surgical History Surgical History History of breast lump/mass excision History of cholecystectomy History of tubal ligation Social History Social History Household Members: Family Housing: House Do you presently have visiting nurse or other home services: Yes (clinical nurse occupational medicine) Alcohol intake: never Patient Tobacco Use Status: Former Tobacco user Tobacco use type: Cigarette Years Smoked: 5 years e-Cigarette/Vaping Use: Never Used Second Hand Smoke Exposure: No Advance Directives: No Advance Directives Information Provided: No service: No Current occupational status: unemployed Gender identity: Female Cognitive needs: Yes Hearing needs: No Vision needs: No Meds Allergies Allergy/AdvReac Type Severity Reaction Status Date / Time acetaminophen [Percocet] Allergy Intermediate Itching Verified 06/25/22 11:13 ibuprofen [From MOTRIN] Allergy Intermediate RASH Verified 06/25/22 11:13 Motrin Allergy Intermediate high blood Verified 06/25/22 11:13 pressure oxycodone [From PERCOCET] Allergy Intermediate ITCHING Verified 06/25/22 11:13 Active Medications: Current Medications Amlodipine Besylate (Amlodipine Besylate 10 Mg Tablet) 10 mg PO DAILY HANANE; Protocol Last Admin: 07/30/22 07:37 Dose: 10 mg Aspirin (Aspirin Enteric Coated 81 Mg Tablet.Dr) 81 mg PO BEDTIME HANA[facility] Atorvastatin Calcium (Atorvastatin Calcium 40 Mg Tablet) 40 mg PO BEDTIME [facility] Last Admin: 07/29/22 21:58 Dose: 40 mg Brimonidine Tartrate (Brimonidine Tartrate 0.2% Oph 5 Ml Bottle) 1 drop EYE- BOTH BID [facility] Last Admin: 07/30/22 07:43 Dose: Not Given Carvedilol (Carvedilol 25 Mg Tablet) 25 mg PO BID [facility]; Protocol Last Admin: 07/30/22 07:37 Dose: 25 mg Cilostazol (Cilostazol 100 Mg Tablet) 100 mg PO BID [facility] Last Admin: 07/29/22 22:43 Dose: Not Given Cyanocobalamin (Cyanocobalamin (Vitamin B-12) 1,000 Mcg Tablet) 1,000 mcg PO DAILY [facility] Last Admin: 07/30/22 07:37 Dose: 1,000 mcg Dextrose (Dextrose 50 % 25 Gm/50 Ml Syringe) 25 gm IVPUSH Q15M PRN; Protocol PRN Reason: per Hypoglycemia Standing Ord. Docusate Sodium (Docusate Sodium 100 Mg Capsule) 100 mg PO DAILY PRN PRN Reason: Constipation Ergocalciferol (Ergocalciferol (Vitamin D2) 1,250 Mcg Capsule) 1,250 mcg PO [place] [facility] Fluticasone Propionate (Fluticasone Propionate Nasal 16 Gm [place]) 1 spray NOSTRIL-B DAILY [facility] Last Admin: 07/30/22 08:44 Dose: Not Given Folic Acid (Folic Acid 1 Mg Tablet) 1 mg PO DAILY [facility] Last Admin: 07/30/22 07:37 Dose: 1 mg Furosemide (Furosemide 40 Mg/4 Ml Vial) 40 mg IVPUSH BID@0900,1800 [facility]; Pro tocol Last Admin: 07/30/22 07:36 Dose: 40 mg Gabapentin (Gabapentin 300 Mg Capsule) 300 mg PO BEDTIME [facility] Last Admin: 07/29/22 21:58 Dose: 300 mg Glucose (Glucose Gel 15 Gm Gel..Gram.) 15 gm PO Q15M PRN; Protocol PRN Reason: per Hypoglycemia Standing Ord. Heparin Sodium (Porcine) (Heparin Sodium,Porcine 5,000 Unit/Ml Vial) 5,000 unit SUBCUT Q12H [facility] Last Admin: 07/29/22 21:59 Dose: 5,000 unit Hydralazine HCl (Hydralazine Hcl 50 Mg Tablet) 50 mg PO BID [facility]; Protocol Last Admin: 07/30/22 07:37 Dose: 50 mg Insulin Glargine (Insulin Glargine,Hum.Rec.Anlog 100 Unit/Ml 10 Ml Vial) 24 unit SUBCUT DAILY [facility] Last Admin: 07/30/22 07:37 Dose: 24 unit Insulin Human Lispro (Insulin Lispro 100 Unit/Ml 3 Ml Vial) 0 unit SUBCUT QIDACHS [facility]; Protocol Last Admin: 07/30/22 07:42 Dose: Not Given Latanoprost (Latanoprost 0.005 % Ophth Shahla 2.5 Ml Drops) 1 drop EYE-BOTH BEDTIME [facility] Last Admin: 07/29/22 22:43 Dose: Not Given Loratadine (Loratadine 10 Mg Tablet) 10 mg PO DAILY PRN PRN Reason: allergies Montelukast Sodium (Montelukast Sodium 10 Mg Tablet) 10 mg PO BEDTIME [facility] Last Admin: 07/29/22 21:58 Dose: 10 mg Omeprazole (Omeprazole 20 Mg Capsule.Dr) 20 mg PO DAILY@0630 [facility] Last Admin: 07/30/22 05:56 Dose: 20 mg Ondansetron HCl (Ondansetron Hcl 4 Mg/2 Ml Vial) 4 mg IVPUSH Q8H PRN PRN Reason: Nausea and Vomiting Polyethylene Glycol (Polyethylene Glycol 3350 17 Gm Powd.Pack) 17 gm PO DAILY [facility] Last Admin: 07/30/22 07:37 Dose: 17 gm Simethicone (Simethicone 80 Mg Tab.Chew) 120 mg PO Q8H PRN PRN Reason: abdominal pain Sodium Chloride (0.9 % Sodium Chloride Flush 3 Ml Syringe) 3 ml IVFLUSH QSHIFT [facility] Last Admin: 07/30/22 07:38 Dose: 3 ml Sucralfate (Sucralfate 1 Gm Tablet) 2 gm PO DAILY [facility] Last Admin: 07/30/22 07:37 Dose: 2 gm Home Medications Medication Instructions Recorded Confirmed Last Taken Type atorvastatin 40 mg tablet 40 mg PO BEDTIME 01/18/21 07/29/22 07/28/22 History carvedilol 25 mg tablet 25 mg PO BID 01/18/21 07/29/22 07/29/22 History montelukast 10 mg tablet 10 mg PO BEDTIME 04/07/29/22 07/28/22 History gabapentin 300 mg capsule 300 mg PO BEDTIME 02/20/21 07/29/22 07/21/22 History albuterol sulfate 90 mcg/actuation 2 puff PO Q4-6H PRN dyspnea 08/21/21 07/29/22 Unknown History aerosol inhaler (Ventolin HFA) aspirin 81 mg tablet,delayed 81 mg PO BEDTIME 08/21/21 07/29/22 07/28/22 History release brimonidine 0.2 % eye drops 1 drp ophthalmic (eye) BID 08/21/21 07/29/22 07/29/22 History cyanocobalamin (vitamin B-12) 1,000 mcg PO DAILY 08/21/21 07/29/22 07/29/22 History 1,000 mcg tablet folic acid 1 mg tablet 1 mg PO QAM 08/21/21 07/29/22 07/29/22 History latanoprost 0.005 % eye drops 1 drp ophthalmic (eye) BEDTIME 08/21/21 07/29/22 07/28/22 History pantoprazole 40 mg tablet,delayed 40 mg PO DAILY 08/21/21 07/29/22 07/29/22 History release fluticasone propionate 50 1 spray intranasal DAILY 06/18/22 07/29/22 07/29/22 History mcg/actuation nasal spray,suspension cetirizine 5 mg tablet 1 tab PO DAILY PRN allergies 07/29/22 07/29/22 Unknown History cilostazol 100 mg tablet 1 tab PO BID 07/29/22 07/29/22 07/29/22 History ergocalciferol (vitamin D2) 1,250 1 cap PO [place] 07/29/22 07/29/22 07/26/22 History mcg (50,000 unit) capsule hydralazine 50 mg tablet 50 mg PO BID 07/29/22 07/29/22 07/29/22 History insulin aspart U-100 100 unit/mL 1 sliding scale dose subcut QIDACHS 07/29/22 07/29/22 07/29/22 History (3 mL) subcutaneous pen (Novolog Flexpen U-100 Insulin aspart) linagliptin 5 mg tablet (Tradjenta) 1 tab PO QAM 07/29/22 07/29/22 07/29/22 History polyethylene glycol 3350 17 gram 17 g PO DAILY 07/29/22 07/29/22 07/29/22 History oral powder packet (HealthyLax) simethicone 125 mg capsule (Gas 1 tab PO Q8H PRN abdominal pain 07/29/22 07/29/22 Unknown History Relief Extra Strength) sucralfate 1 gram tablet 2 tab PO DAILY 07/29/22 07/29/22 07/29/22 History Physical Exam Vital Signs: Vital Signs: Last Vital Signs Temp 98.1 F 07/30/22 05:48 Pulse 63 07/30/22 05:48 Resp 20 07/30/22 08:00 BP 144/46 H 07/30/22 05:48 Pulse Ox 97 07/30/22 08:00 O2 Del Method 07/30/22 08:00 BMI result Body Mass Index 37.6 Const: General: cooperative, comfortable, alert, awake and acute distress moderate and respiratory Nutritional Appearance: obese Orientation/consciousness: patient oriented x3 HEENT: Head: Yes normocephalic and Yes atraumatic Neck: Neck: Yes trachea midline, Yes supple and Yes JVD Resp: Effort & Inspection: normal respiratory effort Auscultation: diminished lung sounds Cardio: Jugular venous distension: JVD Palpation: normal PMI Rate: regular rate Rhythm: regular rhythm Heart sounds: S1 normal heart sound present and Murmur heart sound present systolic late, decrescendo, crescendo and III/ GI: Auscultation: normal bowel sounds Neuro: General: patient oriented x3 and no focal motor deficits Extrem: General: No clubbing, No cyanosis and Yes edema Psych: Appearance: grossly normal Objective Labs and Meds Result diagrams: 07/30/22 06:37 07/30/22 06:37 Lab results: Laboratory Results - last 24 hr 07/29/22 07/29/22 07/29/22 10:34 10:34 10:34 WBC 12.4 H RBC 4.60 Hgb 11.2 L Hct 34.8 L MCV 75.7 L MCH 24.3 L MCHC 32.2 RDW 17.1 H Plt Count 373 MPV 9.5 Immature Gran % (Auto) 0.4 Neut % (Auto) 80.8 H Lymph % (Auto) 10.7 L Angelina % (Auto) 5.2 Eos % (Auto) 2.3 Baso % (Auto) 0.6 Lymph # (Auto) 1.3 Angelina # (Auto) 0.6 Eos # (Auto) 0.3 Baso # (Auto) 0.1 Abs Immat Gran (auto) 0.05 H Absolute Neuts (auto) 10.0 H Absolute Nucleated RBC 0.000 Nucleated RBC % (auto) 0.0 PT INR APTT Sodium 143 Potassium 4.3 Chloride 105 Carbon Dioxide 24 Anion Gap 18 BUN 21 H Creatinine 1.36 Estim Creat Clear Calc 36.8 Estimated GFR 38 POC Glucose Random Glucose 140 H Calcium 9.6 Magnesium 2.1 Total Bilirubin 0.7 Direct Bilirubin 0.4 AST 17 ALT 15 Alkaline Phosphatase 141 H Troponin I High Sens 20.0 H D B-Natriuretic Peptide Total Protein 7.6 Albumin 3.8 Lipase 32 Urine Color Urine Appearance Urine pH Ur Specific [place] Urine Protein Urine Glucose (UA) Urine Ketones Urine Blood Urine Nitrite Ur Leukocyte Esterase Urine RBC Urine WBC Ur Squamous Epith Cells Urine Bacteria Hyaline Casts Influenza Type A (PCR) Influenza Type B (PCR) RSV RNA Qual (PCR) SARS-CoV-2 RNA (RT-PCR) 07/29/22 07/29/22 07/29/22 10:34 17:48 17:48 WBC RBC Hgb Hct MCV MCH MCHC RDW Plt Count MPV Immature Gran % (Auto) Neut % (Auto) Lymph % (Auto) Angelina % (Auto) Eos % (Auto) Baso % (Auto) Lymph # (Auto) Angelina # (Auto) Eos # (Auto) Baso # (Auto) Abs Immat Gran (auto) Absolute Neuts (auto) Absolute Nucleated RBC Nucleated RBC % (auto) PT INR APTT Sodium Potassium Chloride Carbon Dioxide Anion Gap BUN Creatinine Estim Creat Clear Calc Estimated GFR POC Glucose Random Glucose Calcium Magnesium Total Bilirubin Direct Bilirubin AST ALT Alkaline Phosphatase Troponin I High Sens 16.1 B-Natriuretic Peptide 438 H Total Protein Albumin Lipase Urine Color Urine Appearance Urine pH Ur Specific [place] Urine Protein Urine Glucose (UA) Urine Ketones Urine Blood Urine Nitrite Ur Leukocyte Esterase Urine RBC Urine WBC Ur Squamous Epith Cells Urine Bacteria Hyaline Casts Influenza Type A (PCR) NEGATIVE Influenza Type B (PCR) NEGATIVE RSV RNA Qual (PCR) NEGATIVE SARS-CoV-2 RNA (RT-PCR) NEGATIVE 07/29/22 07/29/22 07/29/22 17:48 17:48 22:11 WBC RBC Hgb Hct MCV MCH MCHC RDW Plt Count MPV Immature Gran % (Auto) Neut % (Auto) Lymph % (Auto) Angelina % (Auto) Eos % (Auto) Baso % (Auto) Lymph # (Auto) Angelina # (Auto) Eos # (Auto) Baso # (Auto) Abs Immat Gran (auto) Absolute Neuts (auto) Absolute Nucleated RBC Nucleated RBC % (auto) PT 12.3 INR 1.1 APTT 31.9 Sodium Potassium Chloride Carbon Dioxide Anion Gap BUN Creatinine Estim Creat Clear Calc Estimated GFR POC Glucose 168 H Random Glucose Calcium Magnesium Cancelled Total Bilirubin Direct Bilirubin AST ALT Alkaline Phosphatase Troponin I High Sens B-Natriuretic Peptide Total Protein Albumin Lipase Urine Color Urine Appearance Urine pH Ur Specific [place] Urine Protein Urine Glucose (UA) Urine Ketones Urine Blood Urine Nitrite Ur Leukocyte Esterase Urine RBC Urine WBC Ur Squamous Epith Cells Urine Bacteria Hyaline Casts Influenza Type A (PCR) Influenza Type B (PCR) RSV RNA Qual (PCR) SARS-CoV-2 RNA (RT-PCR) 07/29/22 07/30/22 07/30/22 22:30 06:09 06:37 WBC 11.0 H RBC 4.46 Hgb 10.4 L Hct 33.2 L MCV 74.4 L MCH 23.3 L MCHC 31.3 RDW 16.5 H Plt Count 390 MPV 9.6 Immature Gran % (Auto) 0.3 Neut % (Auto) 70.4 Lymph % (Auto) 19.3 L Angelina % (Auto) 6.7 Eos % (Auto) 2.7 Baso % (Auto) 0.6 Lymph # (Auto) 2.1 Angelina # (Auto) 0.7 Eos # (Auto) 0.3 Baso # (Auto) 0.1 Abs Immat Gran (auto) 0.03 Absolute Neuts (auto) 7.7 Absolute Nucleated RBC 0.000 Nucleated RBC % (auto) 0.0 PT INR APTT Sodium Potassium Chloride Carbon Dioxide Anion Gap BUN Creatinine Estim Creat Clear Calc Estimated GFR POC Glucose 155 H Random Glucose Calcium Magnesium Total Bilirubin Direct Bilirubin AST ALT Alkaline Phosphatase Troponin I High Sens B-Natriuretic Peptide Total Protein Albumin Lipase Urine Color Yellow Urine Appearance Clear Urine pH 5.5 Ur Specific [place] 1.020 Urine Protein 100 (2+) H Urine Glucose (UA) Negative Urine Ketones Negative Urine Blood Negative Urine Nitrite Negative Ur Leukocyte Esterase Negative Urine RBC 0-2 Urine WBC 0-5 Ur Squamous Epith Cells 6-10 Urine Bacteria Trace Hyaline Casts 0-2 Influenza Type A (PCR) Influenza Type B (PCR) RSV RNA Qual (PCR) SARS-CoV-2 RNA (RT-PCR) 07/30/22 07/30/22 07/30/22 06:37 06:37 07:14 WBC RBC Hgb Hct MCV MCH MCHC RDW Plt Count MPV Immature Gran % (Auto) Neut % (Auto) Lymph % (Auto) Angelina % (Auto) Eos % (Auto) Baso % (Auto) Lymph # (Auto) Angelina # (Auto) Eos # (Auto) Baso # (Auto) Abs Immat Gran (auto) Absolute Neuts (auto) Absolute Nucleated RBC Nucleated RBC % (auto) PT INR APTT Sodium 144 Potassium 3.9 Chloride 106 Carbon Dioxide 27 Anion Gap 15 BUN 19 H Creatinine 1.29 Estim Creat Clear Calc 38.8 Estimated GFR 40 POC Glucose 106 Random Glucose 112 Calcium 9.4 Magnesium Total Bilirubin Direct Bilirubin AST ALT Alkaline Phosphatase Troponin I High Sens B-Natriuretic Peptide 509 H Total Protein Albumin Lipase Urine Color Urine Appearance Urine pH Ur Specific [place] Urine Protein Urine Glucose (UA) Urine Ketones Urine Blood Urine Nitrite Ur Leukocyte Esterase Urine RBC Urine WBC Ur Squamous Epith Cells Urine Bacteria Hyaline Casts Influenza Type A (PCR) Influenza Type B (PCR) RSV RNA Qual (PCR) SARS-CoV-2 RNA (RT-PCR) Imaging Radiologist's impression: Impressions Chest X-Ray 07/29/22 10:29 IMPRESSION: Mild increased pulmonary vascular and interstitial markings suggestive of worsening congestion. Increased right basilar infiltrate as well. Chest CT 07/29/22 18:10 IMPRESSION: Patchy groundglass airspace changes are again seen slightly worsened from the 07/01/2022 study. Small bilateral pleural effusions are also seen increased from the 07/01/2022 study. I do not appreciate any dense consolidation. Assessment and Plan (1) Aortic stenosis: Qualifiers: Cardiac valve disease etiology: nonrheumatic Qualified Code(s): I35.0 - Nonrheumatic aortic (valve) stenosis Status: Acute Patient with critical aortic stenosis presents with recent onset symptoms of worsening angina and shortness of breath suggestive of unstable aortic syndrome. That could be also possibly a progressive coronary disease. She is currently actively undergoing TAVR protocol evaluation and is scheduled for cardiac catheterization on Wednesday. I think she requires more urgent evaluation for her aortic stenosis and more urgent evaluation for aortic valve replacement given her unstable symptoms with high risk of cardiovascular morbidity mortality. This was discussed with her with help of clinical product specialist as well as have placed a call to her daughter Vero. Currently she is stable and symptom free. Does not appear to be in overt marked pulmonary edema heart failure at this point time. Continue gentle diuresis. Continue blood pressure control. I do not think she is having any active infection at this point time and the chest x-ray findings are suggestive more chronic findings related to prior COVID pneumonia. She has no active signs of infection with no fever or no leukocytosis. I think patient will need to be transferred for cardiac catheterization to [facility]. Have contacted her cardiology group to make arrangements for the same. Will sign of the case for now. Procedures Date of Service Date of Service: 07/30/22
--- NOTE | 2022-07-30 09:10 | PC.NURSE ---
Report given to DIEGO Alcantara assuming care of patient at this time.
--- NOTE | 2022-07-30 09:19 | MHC.CM.PN ---
Patient was unavailable; CM spoke with Daughter/HCP/Vero @ [phone] and addressed IMM with her (original to be mailed certified letter to her and original to be placed on the chart). Patient lives in a house with her and she receives [employer] hours/week and uses a walker. Home/resume said services is the goal and CM has initiated and will follow for dc planning. Patient has received no Covid vax and her PCP is Dr. Marycarmen Quijano.
[2022-07-30] MEDS: cilostazoL 50 MG TABLET 100 MG PO (09:29)
[2022-07-30] MEDS: Heparin Sodium,Porcine 5,000 UNIT/ML VIAL 5000 UNIT SUBCUT (09:30)
--- NOTE | 2022-07-30 10:21 | PM.DS ---
DS: Providers Provider Date of Service: 07/30/22 Date of admission: 07/29/22 21:15 Date of discharge: 07/30/22 Primary care physician: Marycarmen Quijano MD Consults: 07/29/22 21:34 Consult to Cardiology Routine Consulting Provider: Esteban Sexton Reason for consultation: chf exacerbation Attending physician on discharge: Robert Smith Discharging clinician: Christianne Forrest DS: Diagnosis Discharge Diagnosis (1) Aortic stenosis: Status: Acute (2) Congestive heart failure: Status: Acute DS: Summary Hospital Course Hospital Course: From H&P on day of admission 77-year-old female with past medical history of morbid obesity, 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 She states that her symptoms have gotten progressively worse over the 2 days.? She has shortness of breath, cough, and generally feels unwell.? States that she feels tight from her throat to her epigastric area, and has wheezing.? She does not report diaphoresis, pain on inspiration, nausea, vomiting, diarrhea, abdominal pain, abdominal distention, dysuria, fevers or chills.? On arrival, vital signs stable however patient desaturated to 88% on ambulation.? Resume mild leukocytosis 12.4.? No tachycardia, hypotension, tachypnea.? Renal function electrolyte levels are stable.? Glucose 140.? Initial troponin 20.0, repeat 16.1.? BNP 438.? EKG NSR, rate [address]/T-wave abnormality, unchanged from prior EKG.? CXR showed mild increased pulmonary vascular and interstitial markings suggesting worsening congestion with increased right basilar infiltrate as well.? Follow-up chest CT showed patchy ground-glass i patchy opacities worsened from prior study with small bilateral pleural effusions increased from prior study. No dense consolidation observed. Patient to be admitted for pneumonia with COPD exacerbation and ambulatory hypoxia with CHF exacerbation.? Her daughter who is healthcare proxy tells me that she is due to have a cardiac catheterization at [facility] on August 02. CHF/Aortic stenosis Patient was started on IV Lasix. She was seen in consultation by Cardiology. She has history of critical aortic stenosis and is currently under active evaluation for TAVR and was scheduled for elective cardiac catheterization this coming Wednesday. Cardiology recommended to continue with diuresis, IV lasix 4o mg bid and plan to transfer to [facility] for further management. Time Spent with Patient Time attestation: Total time spent providing and/or coordinating discharge services: Discharge coordination time: Greater than 30 minutes Quality: Safe Use of Opioids Does Pt have an Active Cancer Diagnosis on the Problem List?: No Quality: Stroke Does the patient have a stroke diagnosis?: No Physical Exam Vital Signs: Vital Signs: Last Vital Signs Temp 98.1 F 07/30/22 05:48 Pulse 63 07/30/22 05:48 Resp 20 07/30/22 08:00 BP 144/46 H 07/30/22 05:48 Pulse Ox 97 07/30/22 08:00 O2 Del Method 07/30/22 08:00 BMI result Body Mass Index 37.6 Const: General: comfortable, alert and awake Nutritional Appearance: obese Resp: Effort & Inspection: normal respiratory effort and able to speak in complete sentences Auscultation: diminished lung sounds Cardio: Rate: regular rate Heart sounds: Murmur heart sound present GI: Inspection: No distended Palpation (GI): Soft to palpation and nontender Neuro: General: CN's II-XI intact bilaterally Extrem: General: Yes no pedal edema DS: Data Data Completed and Pending Completed studies during hospitalization [Text1]: Procedures Excision of Descending Colon, Via Natural or Artificial Opening Endoscopic, Diagnostic (02/20/21) Excision of Duodenum, Via Natural or Artificial Opening Endoscopic, Diagnostic (02/20/21) Excision of Stomach, Pylorus, Via Natural or Artificial Opening Endoscopic, Diagnostic (02/20/21) Excision of Transverse Colon, Via Natural or Artificial Opening Endoscopic, Diagnostic (02/20/21) Insertion of Infusion Device into Superior Vena Cava, Percutaneous Approach (01/17/21) Introduction of Remdesivir Anti-infective into Peripheral Vein, Percutaneous Approach, [employer] (01/17/21) Performance of Urinary Filtration, Intermittent, Less than 6 Hours Per Day (01/17/21) Transfusion of Nonautologous Red Blood Cells into Peripheral Vein, Percutaneous Approach (02/20/21) Labs on day of discharge: Laboratory Results - last 24 hr 07/29/22 07/29/2207/29/22 10:34 10:34 10:34 WBC 12.4 H RBC 4.60 Hgb 11.2 L Hct 34.8 L MCV 75.7 L MCH 24.3 L MCHC 32.2 RDW 17.1 H Plt Count 373 MPV 9.5 Immature Gran % (Auto) 0.4 Neut % (Auto) 80.8 H Lymph % (Auto) 10.7 L [place] % (Auto) 5.2 Eos % (Auto) 2.3 Baso % (Auto) 0.6 Lymph # (Auto) 1.3 [place] # (Auto) 0.6 Eos # (Auto) 0.3 Baso # (Auto) 0.1 Abs Immat Gran (auto) 0.05 H Absolute Neuts (auto) 10.0 H Absolute Nucleated RBC 0.000 Nucleated RBC % (auto) 0.0 PT INR APTT Sodium 143 Potassium 4.3 Chloride 105 Carbon Dioxide 24 Anion Gap 18 BUN 21 H Creatinine 1.36 Estim Creat Clear Calc 36.8 Estimated GFR 38 POC Glucose Random Glucose 140 H Calcium 9.6 Magnesium 2.1 Total Bilirubin 0.7 Direct Bilirubin 0.4 AST 17 ALT 15 Alkaline Phosphatase 141 H Troponin I High Sens 20.0 H D B-Natriuretic Peptide Total Protein 7.6 Albumin 3.8 Lipase 32 Urine Color Urine Appearance Urine pH Ur Specific [place] Urine Protein Urine Glucose (UA) Urine Ketones Urine Blood Urine Nitrite Ur Leukocyte Esterase Urine RBC Urine WBC Ur Squamous Epith Cells Urine Bacteria Hyaline Casts Influenza Type A (PCR) Influenza Type B (PCR) RSV RNA Qual (PCR) SARS-CoV-2 RNA (RT-PCR) 07/29/22 07/29/22 07/29/22 10:34 17:48 17:48 WBC RBC Hgb Hct MCV MCH MCHC RDW Plt Count MPV Immature Gran % (Auto) Neut % (Auto) Lymph % (Auto) [place] % (Auto) Eos % (Auto) Baso % (Auto) Lymph # (Auto) [place] # (Auto) Eos # (Auto) Baso # (Auto) Abs Immat Gran (auto) Absolute Neuts (auto) Absolute Nucleated RBC Nucleated RBC % (auto) PT INR APTT Sodium Potassium Chloride Carbon Dioxide Anion Gap BUN Creatinine Estim Creat Clear Calc Estimated GFR POC Glucose Random Glucose Calcium Magnesium Total Bilirubin Direct Bilirubin AST ALT Alkaline Phosphatase Troponin I High Sens 16.1 B-Natriuretic Peptide 438 H Total Protein Albumin Lipase Urine Color Urine Appearance Urine pH Ur Specific [place] Urine Protein Urine Glucose (UA) Urine Ketones Urine Blood Urine Nitrite Ur Leukocyte Esterase Urine RBC Urine WBC Ur Squamous Epith Cells Urine Bacteria Hyaline Casts Influenza Type A (PCR) NEGATIVE Influenza Type B (PCR) NEGATIVE RSV RNA Qual (PCR) NEGATIVE SARS-CoV-2 RNA (RT-PCR) NEGATIVE 07/29/22 07/29/22 07/29/22 17:48 17:48 22:11 WBC RBC Hgb Hct MCV MCH MCHC RDW Plt Count MPV Immature Gran % (Auto) Neut % (Auto) Lymph % (Auto) [place] % (Auto) Eos % (Auto) Baso % (Auto) Lymph # (Auto) [place] # (Auto) Eos # (Auto) Baso # (Auto) Abs Immat Gran (auto) Absolute Neuts (auto) Absolute Nucleated RBC Nucleated RBC % (auto) PT 12.3 INR 1.1 APTT 31.9 Sodium Potassium Chloride Carbon Dioxide Anion Gap BUN Creatinine Estim Creat Clear Calc Estimated GFR POC Glucose 168 H Random Glucose Calcium Magnesium Cancelled Total Bilirubin Direct Bilirubin AST ALT Alkaline Phosphatase Troponin I High Sens B-Natriuretic Peptide Total Protein Albumin Lipase Urine Color Urine Appearance Urine pH Ur Specific [place] Urine Protein Urine Glucose (UA) Urine Ketones Urine Blood Urine Nitrite Ur Leukocyte Esterase Urine RBC Urine WBC Ur Squamous Epith Cells Urine Bacteria Hyaline Casts Influenza Type A (PCR) Influenza Type B (PCR) RSV RNA Qual (PCR) SARS-CoV-2 RNA (RT-PCR) 07/29/22 07/30/22 07/30/22 22:30 06:09 06:37 WBC 11.0 H RBC 4.46 Hgb 10.4 L Hct 33.2 L MCV 74.4 L MCH 23.3 L MCHC 31.3 RDW 16.5 H Plt Count 390 MPV 9.6 Immature Gran % (Auto) 0.3 Neut % (Auto) 70.4 Lymph % (Auto) 19.3 L [place] % (Auto) 6.7 Eos % (Auto) 2.7 Baso % (Auto) 0.6 Lymph # (Auto) 2.1 [place] # (Auto) 0.7 Eos # (Auto) 0.3 Baso # (Auto) 0.1 Abs Immat Gran (auto) 0.03 Absolute Neuts (auto) 7.7 Absolute Nucleated RBC 0.000 Nucleated RBC % (auto) 0.0 PT INR APTT Sodium Potassium Chloride Carbon Dioxide Anion Gap BUN Creatinine Estim Creat Clear Calc Estimated GFR POC Glucose 155 H Random Glucose Calcium Magnesium Total Bilirubin Direct Bilirubin AST ALT Alkaline Phosphatase Troponin I High Sens B-Natriuretic Peptide Total Protein Albumin Lipase Urine Color Yellow Urine Appearance Clear Urine pH 5.5 Ur Specific [place] 1.020 Urine Protein 100 (2+) H Urine Glucose (UA) Negative Urine Ketones Negative Urine Blood Negative Urine Nitrite Negative Ur Leukocyte Esterase Negative Urine RBC 0-2 Urine WBC 0-5 Ur Squamous Epith Cells 6-10 Urine Bacteria Trace Hyaline Casts 0-2 Influenza Type A (PCR) Influenza Type B (PCR) RSV RNA Qual (PCR) SARS-CoV-2 RNA (RT-PCR) 07/30/22 07/30/22 07/30/22 06:37 06:37 07:14 WBC RBC Hgb Hct MCV MCH MCHC RDW Plt Count MPV Immature Gran % (Auto) Neut % (Auto) Lymph % (Auto) [place] % (Auto) Eos % (Auto) Baso % (Auto) Lymph # (Auto) [place] # (Auto) Eos # (Auto) Baso # (Auto) Abs Immat Gran (auto) Absolute Neuts (auto) Absolute Nucleated RBC Nucleated RBC % (auto) PT INR APTT Sodium 144 Potassium 3.9 Chloride 106 Carbon Dioxide 27 Anion Gap 15 BUN 19 H Creatinine 1.29 Estim Creat Clear Calc 38.8 Estimated GFR 40 POC Glucose 106 Random Glucose 112 Calcium 9.4 Magnesium Total Bilirubin Direct Bilirubin AST ALT Alkaline Phosphatase Troponin I High Sens B-Natriuretic Peptide 509 H Total Protein Albumin Lipase Urine Color Urine Appearance Urine pH Ur Specific [place] Urine Protein Urine Glucose (UA) Urine Ketones Urine Blood Urine Nitrite Ur Leukocyte Esterase Urine RBC Urine WBC Ur Squamous Epith Cells Urine Bacteria Hyaline Casts Influenza Type A (PCR) Influenza Type B (PCR) RSV RNA Qual (PCR) SARS-CoV-2 RNA (RT-PCR) Discharge Plan Discharge Anticipated Discharge Date/Time: 07/30/22 10:14 Patient Disposition: Xfer Acute Care Hospital Discharge Diagnosis: CHF critical aortic stenosis Referrals: [facility] [Outside] - 1 Week Marycarmen Quijano MD [Primary Care Provider] - 1 Week Discharge Medications: New furosemide 10 mg/mL Solution 40 mg IVPUSH BID@0900,1800 Qty: 40 0RF Protocol: Hold for SBP< HOLD for SBP < : 90 Continued Ele SoloStar U-300 Insulin 300 unit/mL (1.5 mL) insulin pen 40 unit subcut DAILY Qty: 4.5 4RF atorvastatin 40 mg Tablet 40 mg PO BEDTIME carvedilol 25 mg Tablet 25 mg PO BID montelukast 10 mg Tablet 10 mg PO BEDTIME gabapentin 300 mg Capsule 300 mg PO BEDTIME amlodipine 10 mg tablet 10 mg PO DAILY Qty: 30 0RF polyethylene glycol 3350 [HealthyLax] 17 gram powder in packet 17 g PO DAILY cetirizine 5 mg tablet 1 tab PO DAILY PRN (Reason: allergies) sucralfate 1 gram tablet 2 tab PO DAILY simethicone [Gas Relief Extra Strength] 125 mg capsule 1 tab PO Q8H PRN (Reason: abdominal pain) ergocalciferol (vitamin D2) 1,250 mcg (50,000 unit) capsule 1 cap PO [place] insulin aspart U-100 [Novolog Flexpen U-100 Insulin] 100 unit/mL (3 mL) Insulin Pen 1 sliding scale dose SUBCUT QIDACHS Protocol: Insulin Correction Scale Less than or equal to 110 ---- Give (units): 0 111 to 150 Give (units): 0 151 to 200 Give (units): 2 201 to 250 Give (units): 4 251 to 300 Give (units): 6 301 to 350 Give (units): 8 Greater than 350 Give (units): 10 Call MD if Blood Glucose > : 350 Tradjenta 5 mg tablet 1 tab PO QAM hydralazine 50 mg tablet 50 mg PO BID cilostazol 100 mg tablet 1 tab PO BID pantoprazole 40 mg tablet,delayed release (DR/EC) 40 mg PO DAILY cyanocobalamin (vitamin B-12) 1,000 mcg tablet 1,000 mcg PO DAILY brimonidine 0.2 % drops 1 drp ophthalmic (eye) BID latanoprost 0.005 % drops 1 drp ophthalmic (eye) BEDTIME albuterol sulfate [Ventolin HFA] 90 mcg/actuation HFA aerosol inhaler 2 puff PO Q4-6H PRN (Reason: dyspnea) folic acid 1 mg tablet 1 mg PO QAM aspirin 81 mg tablet,delayed release (DR/EC) 81 mg PO BEDTIME fluticasone propionate 50 mcg/actuation spray,suspension 1 spray intranasal DAILY budesonide-formoterol [Symbicort] 160-4.5 mcg/actuation HFA aerosol inhaler 2 puff inhalation BID 30 Days Qty: 10.2 11RF Held furosemide 40 mg Tablet 40 mg PO DAILY Qty: 30 0RF Hold Instructions: while receiving IV lasix Protocol: Hold for SBP< HOLD for SBP < : 90 No Action (DME) lancets [FreeStyle Lancets] 28 gauge misc See Rx Instructions .MEDSUPPLY Qty: 300 2RF Rx Instructions: 3 times a day (DME) FreeStyle Lite Strips Strip See Rx Instructions .MEDSUPPLY Qty: 300 3RF Rx Instructions: 3times a day (DME) pen needle, diabetic [BD Sia 2nd Gen Pen Needle] 32 gauge x 5/32 needle See Rx Instructions .MEDSUPPLY Qty: 400 4RF Rx Instructions: 5 times a day Discharge Orders: Discharge Order (Routine); Ordered 07/30/22 Ordered By: Christianne Forrest Activity on Discharge: As tolerated Stand Alone Forms: Patient Portal Discharge page Care Plan Goals: see below Health Concerns: Aortic stenosis CHF Plan of Treatment: Transfer to [facility] [place] for further management of aortic stenosis and CHF. Possible cardiac cather and TAVR evaluatation Assessment: see discharge summary Discharge Date/Time: 07/30/22 16:58
[2022-07-30 10:51] VITALS: BP 139/46; PULSE 62; RESP 14; TEMP 36.2; O2SAT 92
[2022-07-30 11:19] LABS: Glucose, Whole Blood 122 mg/dL (60-115)
--- NOTE | 2022-07-30 11:30 | MHC.CM.PN ---
Per ROUNDS discussion, Patient is being dc to [facility].
--- NOTE | 2022-07-30 12:13 | PC.NURSE ---
report obtained from jasmina, ted care at 11am, patient sleeping, wakes to verbal stimulus, a&ox3, denies pain/discomfort, family at bedside, awake overnight monitor intact- sinus joanna, call walsh within reach, pt awaiting bed at [facility] for transfer, will continue to monitor
--- NOTE | 2022-07-30 13:54 | PC.NURSE ---
patient a&ox3, phototypesetting equipment monitor intact sinus joanna on monitor, pt given lunch, family at bedside, pt denies pain/discomfort, awaiting bed for transfer to [facility], will continue to monitor.
--- NOTE | 2022-07-30 16:58 | PC.NURSE ---
this nurse attempted to call [facility] to give report, nurse answered and stated she had a patient who was critical and would call the overflow unit back to get report once they stabalized. [facility] was contacted to transport and they were also told to have the nurse call for report when they arrive
--- NOTE | 2022-07-30 17:12 | PC.NURSE ---
report given to nurse at [facility]
== END 2022-07-30 16:58 | disposition short-term general hospital (02) | DRG 307 ==
LOC: HO.ED 20:03 → HO.EDOVER 21:27
PROVIDERS: Nurse Practitioner Family; Student in an Organized Health Care Education/Training Program; Admitting Provider Physician Assistant; Emergency Provider Emergency Medicine; PCP Family Medicine; Visit Provider Physician Assistant Medical
DX: I35.0 Nonrheumatic aortic (valve) stenosis (principal); I13.0 Hypertensive heart and chronic kidney disease with heart failure and stage 1 through stage 4 chronic kidney disease, or unspecified chronic kidney disease; E78.5 Hyperlipidemia, unspecified; E66.01 Morbid (severe) obesity due to excess calories; E11.51 Type 2 diabetes mellitus with diabetic peripheral angiopathy without gangrene; J44.9 Chronic obstructive pulmonary disease, unspecified; Z68.37 Body mass index [BMI] 37.0-37.9, adult; I50.9 Heart failure, unspecified; M48.062 Spinal stenosis, lumbar region with neurogenic claudication; E11.22 Type 2 diabetes mellitus with diabetic chronic kidney disease; N18.30 Chronic kidney disease, stage 3 unspecified; U09.9 Post COVID-19 condition, unspecified; M19.90 Unspecified osteoarthritis, unspecified site; G47.33 Obstructive sleep apnea (adult) (pediatric)
CPT/HCPCS: 0241U; 36415; 71046; 71250; 80048; 80076; 81001; 82947; 83690; 83735; 83880; 84484; 85025; 85610; 85730; 93005; 99285; J0696; J1940

== ENCOUNTER → 2022-08-10 13:28 | Outpatient (BNVA) | payer OTHER, SELFPAY | PROVIDERS: PCP Family Medicine; Referring Provider Family Medicine; Visit Provider Nurse Practitioner Family | DX: K21.9 Gastro-esophageal reflux disease without esophagitis (principal); K59.00 Constipation, unspecified; R10.11 Right upper quadrant pain | CPT/HCPCS: 99202; 99212 ==

== ENCOUNTER → 2022-08-12 14:15 | Outpatient (BNVA) | payer OTHER, SELFPAY | PROVIDERS: PCP Family Medicine; Visit Provider Internal Medicine Endocrinology, Diabetes & Metabolism | DX: E11.22 Type 2 diabetes mellitus with diabetic chronic kidney disease (principal); N18.2 Chronic kidney disease, stage 2 (mild); E11.65 Type 2 diabetes mellitus with hyperglycemia; Z79.4 Long term (current) use of insulin | CPT/HCPCS: 82947; 99212 ==

== ENCOUNTER 2022-08-14 11:49 | Outpatient (REF) | payer OTHER, SELFPAY ==
[2022-08-26 19:21] LABS: Pancreatic Elastase-1 115 mcg/g
== END 2022-08-14 11:50 | disposition home or self-care (01) ==
LOC: HO.LNP 11:49
PROVIDERS: Visit Provider Nurse Practitioner Family
DX: R10.9 Unspecified abdominal pain (principal); K21.9 Gastro-esophageal reflux disease without esophagitis
CPT/HCPCS: 82656; 87338

== ENCOUNTER → 2022-09-14 12:16 | Outpatient (BNVA) | payer OTHER, SELFPAY | PROVIDERS: PCP Family Medicine; Visit Provider Hospitalist | DX: J45.40 Moderate persistent asthma, uncomplicated (principal); G47.33 Obstructive sleep apnea (adult) (pediatric); I35.0 Nonrheumatic aortic (valve) stenosis | CPT/HCPCS: 99212 ==

== ENCOUNTER → 2022-09-21 13:21 | Outpatient (BNVA) | payer OTHER, SELFPAY | PROVIDERS: PCP Family Medicine; Visit Provider Nurse Practitioner Family | DX: K59.04 Chronic idiopathic constipation (principal); K58.1 Irritable bowel syndrome with constipation; K21.9 Gastro-esophageal reflux disease without esophagitis; K86.89 Other specified diseases of pancreas | CPT/HCPCS: 99212 ==

== ENCOUNTER 2022-10-09 08:56 | Outpatient (REF) | payer OTHER, SELFPAY ==
--- NOTE | ~2022-10-09 | FL_ITS ---
EXAMINATION: FL BARIUM SWALLOW CLINICAL INFORMATION: Dysphagia. COMPARISON: None TECHNIQUE: Barium swallow examination was performed using fluoroscopic evaluation in addition to multiple fluoroscopic spot views. The patient was imaged both upright and prone and using both thick and thin sulfate along with effervescent granules. Fluoroscopy Time: 1.2 minutes DAP: 14.185 Gycm2 Images: 44 FINDINGS: Following oral administration of thick barium and effervescent granules, there is normal propagation of the bolus from the oral cavity through the pharynx, esophagus into the stomach without any evidence of obstruction, narrowing or stricture. There is a very tiny anterior cervical esophageal web. Otherwise, the rest of the esophagus is unremarkable. On oral administration of barium-coated turkey, there is normal propagation of solid food from the oral cavity through the pharynx, esophagus into the stomach. There are ventral osteophytes at the C5-C6, C6-C7 and C7-T1 disc levels indenting the posterior cervical esophageal wall. On oral administration of a barium tablet, there is normal smooth passage from the oral cavity, pharynx, esophagus into the stomach. No obstruction is seen. On placing the patient prone lying and oral administration of thin barium, there is good distention of the esophagus without any intraluminal filling defect, narrowing or extrinsic compression. 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 The rest of the barium swallow exam is unremarkable.
[2022-10-09 09:24] LABS: MANUAL DIFF FLAG NO
[2022-10-09 10:21] LABS: Basophils Absolute Auto 0.1 X10*3/uL (0.0-0.2); Basophils Percent Auto 0.7 % (0-2); Eosinophils Absolute Auto 0.4 X10*3/uL (0.0-0.4); Eosinophils Percent Auto 3.8 % (0-4); Hematocrit 32.5 % (37.0-47.0); Hemoglobin 9.9 g/dl (12.0-16.0); Imm Gran Abs Auto 0.04 X10*3/uL (0.00-0.03); Imm Gran Pct Auto 0.4 % (0.0-0.4); Lymphocytes Absolute Auto 1.6 X10*3/uL (1.2-4.9); Lymphocytes Percent Auto 16.1 % (20-40); Mean Corpuscular HGB Conc 30.5 g/dl (31.0-35.0); Mean Corpuscular Hemoglobin 22.1 pg (27.0-33.0); Mean Corpuscular Volume 72.5 fL (80.0-98.0); Mean Platelet Volume 9.3 fL (9.4-12.3); Monocytes Absolute Auto 0.9 X10*3/uL (0.1-1.2); Monocytes Percent Auto 8.9 % (2-11); Neutrophils Absolute Auto 6.8 x10*3/uL (2.0-8.3); Neutrophils Percent Auto 70.1 % (45-73); Platelet Count 372 X10*3/uL (160-400); Red Blood Count 4.48 X10*6/uL (4.20-5.50); Red Cell Distribution Width 17.6 % (11.0-16.0); White Blood Count 9.8 X10*3/uL (4.8-10.8)
[2022-10-09 11:21] LABS: Alanine Aminotransferase 15 U/L (0-31); Albumin Level 3.3 g/dL (3.5-5.0); Alkaline Phosphatase 138 U/L (39-117); Anion Gap 14 (12-20); Aspartate Amino Transferase 16 U/L (5-31); Bilirubin Total 0.6 mg/dL (0.0-1.0); Blood Urea Nitrogen 21 mg/dL (9-16); Calcium 9.3 mg/dL (8.4-10.2); Carbon Dioxide 29 mmol/L (22-29); Chloride 106 mmol/L (96-108); Cholesterol 123 mg/dL; Estimated Glomerular Filt Rate 38; Glucose Fasting 72 mg/dL (60-99); HDL Cholesterol 38 mg/dL; Iron 33 mcg/dL (30-160); LDL Cholesterol Calculated 72 mg/dl; Percent Iron Saturation 13 % (15-50); Potassium 4.3 mmol/L (3.3-5.1); Sodium 145 mmol/L (135-145); Total Iron Binding Capacity 246 mcg/dL (228-428); Total Protein 6.6 g/dL (6.5-8.0); Triglycerides 67 mg/dL; Unsaturated Iron Binding 213 ug/dL
[2022-10-09 11:39] LABS: Thyroid Stimulating Hormone 2.39 uIU/mL (0.32-4.0); Vitamin D 25-OH Total 38.7 ng/mL (>30)
[2022-10-09 11:48] LABS: Folate 18.8 ng/mL (> or = 4.0); Vitamin B12 715 pg/mL (200-900)
== END 2022-10-09 08:57 | disposition home or self-care (01) ==
LOC: HO.XRAY 08:56
PROVIDERS: PCP Internal Medicine; Visit Provider Internal Medicine
DX: R13.10 Dysphagia, unspecified (principal); E78.5 Hyperlipidemia, unspecified; E55.9 Vitamin D deficiency, unspecified; E66.01 Morbid (severe) obesity due to excess calories; Z68.41 Body mass index [BMI] 40.0-44.9, adult; D64.89 Other specified anemias
CPT/HCPCS: 36415; 74220; 80053; 80061; 82306; 82607; 82746; 83540; 84443; 85025

== ENCOUNTER 2022-10-10 11:49 | Inpatient (IN) | payer OTHER, SELFPAY ==
--- NOTE | ~2022-10-10 | XR_ITS ---
EXAMINATION: XR chest 1V CLINICAL INFORMATION: Reason for Exam SOB COMPARISON: Chest radiograph 07/29/2022 CT chest 07/29/2022 TECHNIQUE: One view of the chest XR/XR chest 1V FINDINGS/IMPRESSION: * Indistinctness of the central pulmonary vasculature with increased interstitial opacities suggesting pulmonary edema. * Increasing moderate right and similar trace left pleural effusions, with increased bibasilar airspace opacities, which may reflect worsening atelectasis, infection, and/or above-described edema.. No pneumothorax. * Unchanged cardiomediastinal silhouette.
--- NOTE | 2022-10-10 11:52 | ED_ITS ---
HPI - SOB/Dyspnea General Chief Complaint: Dyspnea Stated Complaint: SOB Time Seen by Provider: 10/10/22 11:51 Source: patient, EMS and old records reviewed Mode of arrival: EMS Limitations: no limitations History of Present Illness HPI Narrative: 77-year-old female with a history of asthma, severe aortic stenosis, on 2L NC w/ exertion and QHS, HFpEF, CKD, DM on insulin, HTN, HLD, morbid obesity, history of severe COVID-19 w/ respiratory failure & kidney failure requiring HD during admission in January of 2022 who presents to the ER from home via EMS with worsening SOB for the last 3 days along with nontraumtic upper back pain. She states she has been using her O2 more lately. She is more SOB in the mornings when she wakes up and when she exerts herself in any way. She states she also has upper back pain that has been worsening. No fall or trauma. She states it is worse on the right than the left. She has been sleeping with her 2L NC and 2 pillows. She has been compliant with her diuretics and her weight has gone up and down. She denies any chest pains. No notable increase in her LE swelling. MD elicited complaint: shortness of breath Pertinent past history: asthma and congestive heart failure Onset (ago): day(s) (3) Context: occurred during exertion Timing: progressively worsening Severity: severe Exacerbating factors: lying flat and exertion Relieving factors: oxygen, rest and upright position Known history of: asthma and congestive heart failure Associated symptoms: orthopnea, abdominal pain and other (sore throat, dry mouth, decreased PO intake) Treatment prior to arrival: oxygen Related Data Home oxygen amount: 2 liters Home Medications Medication Instructions Recorded Confirmed atorvastatin 40 mg tablet 40 mg PO BEDTIME 01/18/21 10/10/22 carvedilol 25 mg tablet 25 mg PO BID 01/18/21 10/10/22 montelukast 10 mg tablet 10 mg PO BEDTIME 01/18/21 10/10/22 gabapentin 300 mg capsule 300 mg PO BEDTIME 02/20/21 10/10/22 albuterol sulfate 90 mcg/actuation 2 puff PO Q4-6H PRN dyspnea 08/21/21 10/10/22 aerosol inhaler (Ventolin HFA) aspirin 81 mg tablet,delayed 81 mg PO BEDTIME 08/21/21 10/10/22 release brimonidine 0.2 % eye drops 1 drp ophthalmic (eye) BID 08/21/21 10/10/22 cyanocobalamin (vitamin B-12) 1,000 mcg PO DAILY 08/21/21 10/10/22 1,000 mcg tablet folic acid 1 mg tablet 1 mg PO DAILY 08/21/21 10/10/22 latanoprost 0.005 % eye drops 1 drp ophthalmic (eye) BEDTIME 08/21/21 10/10/22 fluticasone propionate 50 1 spray intranasal DAILY 06/18/22 10/10/22 mcg/actuation nasal spray,suspension cetirizine 5 mg tablet 1 tab PO DAILY PRN allergies 07/29/22 10/10/22 ergocalciferol (vitamin D2) 1,250 1 cap PO [place]@0900 07/29/22 10/10/22 mcg (50,000 unit) capsule hydralazine 50 mg tablet 50 mg PO BID 07/29/22 10/10/22 blood-glucose meter (FreeStyle #1 ea 08/12/22 09/10/22 [place] Lite kit) esomeprazole magnesium 40 mg 1 cap PO DAILY@0630 10/10/22 10/10/22 capsule,delayed release fluticasone fur. 200 mcg-umeclid 1 puff inhalation DAILY 10/10/22 10/10/22 62.5 mcg-vilant 25 mcg inhalat.powder (Trelegy Ellipta) insulin aspart U-100 100 unit/mL See Protocol subcut TIDAC 10/10/22 10/10/22 (3 mL) subcutaneous pen (Novolog FlexPen U-100 Insulin aspart) insulin glargine U-300 conc 300 34 unit subcut DAILY 10/10/22 10/10/22 unit/mL (1.5 mL) subcutaneous pen (Toujeo SoloStar U-300 Insulin) linagliptin 5 mg tablet (Tradjenta) 5 mg PO DAILY 10/10/22 10/10/22 ptkbhx-offadvon-bhnvadp 1 cap PO QIDACHS 10/10/22 10/10/22 6,000-19,000-30,000 unit capsule,delayed rel (Creon) polyethylene glycol 3350 17 17 g PO DAILY PRN Constipation 10/10/22 10/10/22 gram/dose oral powder (Miralax) simethicone 125 mg capsule (Gas 1 tab PO Q8H PRN abdominal pain 10/10/22 10/10/22 Relief Extra Strength) sucralfate 1 gram tablet 2 tab PO DAILY 10/10/22 10/10/22 Previous Rx's Medication Instructions Recorded FreeStyle Lancets 28 gauge #300 ea 01/15/22 (lancets) blood sugar diagnostic (FreeStyle #300 ea 03/03/22 Lite Strips) amlodipine 10 mg tablet 10 mg PO DAILY #30 tabs 04/04/22 pen needle, diabetic 32 gauge x #400 ea 04/29/22 (BD Isa 2nd Gen Pen Needle) budesonide-formoterol HFA 160 2 puff inhalation BID 30 days 06/18/22 mcg-4.5 mcg/actuation aerosol #10.2 grams inhaler (Symbicort) bisacodyl 5 mg tablet,delayed 10 mg PO BEDTIME #180 tabs 08/10/22 release (Dulcolax (bisacodyl)) furosemide 40 mg tablet (Lasix) 40 mg PO DAILY 3 days #3 tabs 09/14/22 sennosides 8.6 mg tablet (Senokot) 17.2 mg PO BEDTIME #180 tabs 09/21/22 Allergies Allergy/AdvReac Type Severity Reaction Status Date / Time acetaminophen [Percocet] Allergy Intermediate Itching Verified 09/21/22 13:35 ibuprofen [From MOTRIN] Allergy Intermediate RASH Verified 09/21/22 13:35 Motrin Allergy Intermediate high blood Verified 09/21/22 13:35 pressure oxycodone [From PERCOCET] Allergy Intermediate ITCHING Verified 09/21/22 13:35 Review of Systems Review of Systems: Yes all other systems are reviewed and are negative [facility] Past Medical History Medical History (Updated 10/10/22 @ 14:06 by YASMIN Beavers) Aortic stenosis Asthma Back pain Chronic kidney disease CKD (chronic kidney disease) stage 3, GFR 30-59 ml/min Diabetes mellitus Diabetic nephropathy associated with type 2 diabetes mellitus Diabetic polyneuropathy associated with type 2 diabetes mellitus Dyslipidemia GERD (gastroesophageal reflux disease) HLD (hyperlipidemia) Hypertension Infected cyst of skin care home (current) use of insulin Morbid obesity JOSE (obstructive sleep apnea) Pancreatic insufficiency 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 T2DM (type 2 diabetes mellitus) 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, with long- term current use of insulin Vitamin D deficiency Surgical History History of breast lump/mass excision History of cholecystectomy History of tubal ligation Family History Family History Sister History of renal pelvis cancer Father Suicide Mother Lung disease Diabetes mellitus Social History Social History Household Members: Family Housing: House Do 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) Alcohol intake: never Patient Tobacco Use Status: Former Tobacco user Tobacco use type: Cigarette Years Smoked: 5 years e-Cigarette/Vaping Use: Never Used Second Hand Smoke Exposure: No Advance Directives: No Advance Directives Information Provided: Yes service: No Current occupational status: unemployed and disabled Gender identity: Female Cognitive needs: Yes Hearing needs: No Vision needs: No Physical Exam Vital Signs: Vital Signs: Last Vital Signs Temp 98.2 F 10/10/22 11:56 Pulse 62 10/10/22 11:56 Resp 20 10/10/22 11:56 BP 162/57 H 10/10/22 11:56 Pulse Ox 96 10/10/22 11:56 O2 Del Method 10/10/22 11:56 BMI result Body Mass Index 42.6 Appearance: Alert. Oriented X3. Mild resp acute distress. Eyes: Pupils equal, round and reactive to light. ENT: Pharynx normal. Neck: Normal inspection. Neck supple. CVS: Bradycardic, regular rhythm, Pulses normal. Loud harsh systolic murmur Respiratory: Mild respiratory distress. Breath sounds with rales at the bilater al bases Abdomen: Obese Soft and nontender. +BS x4 Skin: Skin warm and dry. Normal skin color. Normal skin turgor. No rashes. Extremities: 2+ bilateral lower extremity edema of the lower legs Neuro: Oriented X 3. No motor deficit. No sensory deficit. Course Course Course Narrative: 77 yo female with history of severe aortic stenosis, asthma, on 2L NC w/ exertion and at night, morbid obesity, HFpEF who presents to the ER from home c/o worsening SOB x3 days/night. Increased RR low 20s with rales bibasilarly on exam, pitting LE edema. Suspect CHF exacerbation. Outpatient notes reviewed - seen in outpatient Pulm on 09/14/22 where she has many of the same symptoms and her diuretics were increased x3 days. Reevaluation(s) Reevaluation #1: Patient's labs showing BNP of 758 which is up from prior 509 in July. IV lasix orderd. CXR with worsening effusions. ?thoracentesis on the right, no emergent need today, stable on her baseline 2L NC Will plan to admit for further management. Medications Administered Discontinued Medications Generic Name Dose Route Start Last Admin Trade Name Freq PRN Reason Stop Dose Admin Acetaminophen 975 mg 10/10/22 12:03 10/10/22 12:10 Acetaminophen 325 Mg Tablet PO 10/10/22 12:04 975 mg ONCE ONE Administration Furosemide 40 mg 10/10/22 13:37 10/10/22 14:03 Furosemide 40 Mg/4 Ml Vial IVPUSH 10/10/22 13:38 40 mg STAT STA Administration Protocol Medical Decision Making Medical Decision Making [facility] Narrative: 77-year-old female with multiple comorbidities presenting with worsening shortness of breath and orthopnea x3 days. Exam is consistent with acute CHF exacerbation with pitting edema of the lower extremities. She has bibasilar rales on exam. She is slightly tachypneic but saturating well on 2 L nasal cannula. Workup pending. Most likely will require admission for diuretics. Differential Diagnosis Differential Diagnoses: The differential diagnosis associated with the presentation includes acute CHF exacerbation, decompensed heart failure due to , PNA, asthma exacerbation, pleural effusions, ACS, PE, COVID, Flu, RSV Admission/Observation Consideration of admission/observation: Escalation of care including admission/ observation considered Requires admission for IV diuresis Consult Healthcare Provider Management of the patient was discussed with: Hospitalist Plan for admission Lab Data [facility] Lab Attestation statement: I reviewed the patient's lab results. Independently reviewed - stable normocytic anemia, mild leukocytosis 11.8, increased BNP 758 from prior 509 in 10/10/22 13:16 10/10/22 13:16 Labs: Lab Results 10/10/22 10/10/22 10/10/22 Range/Units 13:16 13:16 13:16 WBC 11.8 H (4.8-10.8) X10*3/uL RBC 4.73 (4.20-5.50) X10*6/uL Hgb 10.5 L (12.0-16.0) g/dl Hct 34.0 L (37.0-47.0) % MCV 71.9 L (80.0-98.0) fL MCH 22.2 L (27.0-33.0) pg MCHC 30.9 L (31.0-35.0) g/dl RDW 17.6 H (11.0-16.0) % Plt Count 394 (160-400) X10*3/uL MPV 9.0 L (9.4-12.3) fL Immature Gran % (Auto) 0.4 (0.0-0.4) % Neut % (Auto) 82.7 H (45-73) % Lymph % (Auto) 9.4 L (20-40) % [place] % (Auto) 5.1 (2-11) % Eos % (Auto) 1.8 (0-4) % Baso % (Auto) 0.6 (0-2) % Lymph # (Auto) 1.1 L (1.2-4.9) X10*3/uL [place] # (Auto) 0.6 (0.1-1.2) X10*3/uL Eos # (Auto) 0.2 (0.0-0.4) X10*3/uL Baso # (Auto) 0.1 (0.0-0.2) X10*3/uL Abs Immat Gran (auto) 0.05 H (0.00-0.03) X10*3/uL Absolute Neuts (auto) 9.8 H (2.0-8.3) x10*3/uL Absolute Nucleated RBC 0.000 (0.0-0.012) X10*3/uL Nucleated RBC % (auto) 0.0 (0.0-0.2) /100WBC PT 13.4 H (10.0-13.1) SEC INR 1.2 H (0.9-1.1) APTT 35.6 (26.0-36.4) SEC Sodium 143 (135-145) mmol/L Potassium 3.8 (3.3-5.1) mmol/L Chloride 106 (96-108) mmol/L Carbon Dioxide 26 (22-29) mmol/L Anion Gap 15 (12-20) BUN 20 H (9-16) mg/dL Creatinine 1.07 (0.5-1.4) mg/dL Estim Creat Clear Calc 46.5 Estimated GFR 50 Random Glucose 73 (60-115) mg/dL Calcium 9.3 (8.4-10.2) mg/dL Magnesium 2.2 (1.6-2.6) mg/dL Total Bilirubin 0.9 (0.0-1.0) mg/dL Direct Bilirubin 0.4 (0.0-0.5) mg/dL AST 17 (5-31) U/L ALT 12 (0-31) U/L Alkaline Phosphatase 141 H (39-117) U/L Troponin I High Sens (<3.5-17.0) ng/L B-Natriuretic Peptide (<100) pg/mL Total Protein 7.1 (6.5-8.0) g/dL Albumin 3.7 (3.5-5.0) g/dL Procalcitonin ng/mL Influenza Type A (PCR) (Negative) Influenza Type B (PCR) (Negative) RSV RNA Qual (PCR) (Negative) SARS-CoV-2 RNA (RT-PCR) (Negative) 10/10/22 10/10/22 10/10/22 Range/Units 13:16 13:16 13:16 WBC (4.8-10.8) X10*3/uL RBC (4.20-5.50) X10*6/uL Hgb (12.0-16.0) g/dl Hct (37.0-47.0) % MCV (80.0-98.0) fL MCH (27.0-33.0) pg MCHC (31.0-35.0) g/dl RDW (11.0-16.0) % Plt Count (160-400) X10*3/uL MPV (9.4-12.3) fL Immature Gran % (Auto) (0.0-0.4) % Neut % (Auto) (45-73) % Lymph % (Auto) (20-40) % [place] % (Auto) (2-11) % Eos % (Auto) (0-4) % Baso % (Auto) (0-2) % Lymph # (Auto) (1.2-4.9) X10*3/uL [place] # (Auto) (0.1-1.2) X10*3/uL Eos # (Auto) (0.0-0.4) X10*3/uL Baso # (Auto) (0.0-0.2) X10*3/uL Abs Immat Gran (auto) (0.00-0.03) X10*3/uL Absolute Neuts (auto) (2.0-8.3) x10*3/uL Absolute Nucleated RBC (0.0-0.012) X10*3/uL Nucleated RBC % (auto) (0.0-0.2) /100WBC PT (10.0-13.1) SEC INR (0.9-1.1) APTT (26.0-36.4) SEC Sodium (135-145) mmol/L Potassium (3.3-5.1) mmol/L Chloride (96-108) mmol/L Carbon Dioxide (22-29) mmol/L Anion Gap (12-20) BUN (9-16) mg/dL Creatinine (0.5-1.4) mg/dL Estim Creat Clear Calc Estimated GFR Random Glucose (60-115) mg/dL Calcium (8.4-10.2) mg/dL Magnesium (1.6-2.6) mg/dL Total Bilirubin (0.0-1.0) mg/dL Direct Bilirubin (0.0-0.5) mg/dL AST (5-31) U/L ALT (0-31) U/L Alkaline Phosphatase (39-117) U/L Troponin I High Sens 30.2 H D (<3.5-17.0) ng/L B-Natriuretic Peptide 758 H (<100) pg/mL Total Protein (6.5-8.0) g/dL Albumin (3.5-5.0) g/dL Procalcitonin ng/mL Influenza Type A (PCR) NEGATIVE (Negative) Influenza Type B (PCR) NEGATIVE (Negative) RSV RNA Qual (PCR) NEGATIVE (Negative) SARS-CoV-2 RNA (RT-PCR) NEGATIVE (Negative) 10/10/22 Range/Units 13:16 WBC (4.8-10.8) X10*3/uL RBC (4.20-5.50) X10*6/uL Hgb (12.0-16.0) g/dl Hct (37.0-47.0) % MCV (80.0-98.0) fL MCH (27.0-33.0) pg MCHC (31.0-35.0) g/dl RDW (11.0-16.0) % Plt Count (160-400) X10*3/uL MPV (9.4-12.3) fL Immature Gran % (Auto) (0.0-0.4) % Neut % (Auto) (45-73) % Lymph % (Auto) (20-40) % [place] % (Auto) (2-11) % Eos % (Auto) (0-4) % Baso % (Auto) (0-2) % Lymph # (Auto) (1.2-4.9) X10*3/uL [place] # (Auto) (0.1-1.2) X10*3/uL Eos # (Auto) (0.0-0.4) X10*3/uL Baso # (Auto) (0.0-0.2) X10*3/uL Abs Immat Gran (auto) (0.00-0.03) X10*3/uL Absolute Neuts (auto) (2.0-8.3) x10*3/uL Absolute Nucleated RBC (0.0-0.012) X10*3/uL Nucleated RBC % (auto) (0.0-0.2) /100WBC PT (10.0-13.1) SEC INR (0.9-1.1) APTT (26.0-36.4) SEC Sodium (135-145) mmol/L Potassium (3.3-5.1) mmol/L Chloride (96-108) mmol/L Carbon Dioxide (22-29) mmol/L Anion Gap (12-20) BUN (9-16) mg/dL Creatinine (0.5-1.4) mg/dL Estim Creat Clear Calc Estimated GFR Random Glucose (60-115) mg/dL Calcium (8.4-10.2) mg/dL Magnesium (1.6-2.6) mg/dL Total Bilirubin (0.0-1.0) mg/dL Direct Bilirubin (0.0-0.5) mg/dL AST (5-31) U/L ALT (0-31) U/L Alkaline Phosphatase (39-117) U/L Troponin I High Sens (<3.5-17.0) ng/L B-Natriuretic Peptide (<100) pg/mL Total Protein (6.5-8.0) g/dL Albumin (3.5-5.0) g/dL Procalcitonin 0.02 ng/mL Influenza Type A (PCR) (Negative) Influenza Type B (PCR) (Negative) RSV RNA Qual (PCR) (Negative) SARS-CoV-2 RNA (RT-PCR) (Negative) Independent Interpretation I performed an independent interpretation of an: EKG and Plain X-Ray Interpretation: EKG - sinus bradycardia, ventricular rate 56 beats per minute, normal [place] inter dorys, normal QTC, minimal ST depressions in lead I and aVL no ST segment elevations CXR - increased pleural effusions R>L, increased from prior Radiology Impression Discussion of test interpretation with radiology: I have reviewed the radio logist's reading. Radiologist Impression: XR/XR chest 1V FINDINGS/IMPRESSION: ? *? Indistinctness of the central pulmonary vasculature with increased interstitial opacities suggesting pulmonary edema. ? *? Increasing moderate right and similar trace left pleural effusions, with increased bibasilar airspace opacities, which may reflect worsening atelectasis, infection, and/or above-described edema.. No pneumothorax. ? *? Unchanged cardiomediastinal silhouette. Independent Historian Clinical information obtained from an independent historian. History obtained from or confirmed by: Spouse and EMS External Record Review External record reviewed: Inpatient record, Office record, Prior outpatient labs and Prior outpatient radiology Prescription Management I considered prescription management with: Antibiotic Mild leukocytosis 11.8, no convincing evidence of bacterial infection. Procalcitonin is low. Chest x-ray findings were consistent with acute heart failure. Critical Care Time Critical Care Time Critical Care Time: Yes Total Critical Care Time: 39 Attestation: I have personally provided critical care time exclusive of time spent on separately billable procedures. Time includes review of lab data, radiology re sults, discussion with consultants, and monitoring for potential decompensation. Intervention performed as documented. Discharge Plan Discharge Clinical Impression: Acute exacerbation of CHF (congestive heart failure) Patient Disposition: Admitted As Inpatient
[2022-10-10 11:56] VITALS: BP 130/90; BP 162/57; PULSE 50; PULSE 62; RESP 20; TEMP 36.8; O2SAT 96; BMI 42.6
--- NOTE | 2022-10-10 12:03 | ECG_ITS ---
Test Reason : SOB Blood Pressure : / mmHG Vent. Rate : 056 BPM Atrial Rate : 056 BPM P-R Int : 130 ms QRS Dur : 090 ms QT Int : 444 ms P-R-T Axes : 031 029 138 degrees QTc Int : 428 ms Sinus bradycardia Nonspecific T wave abnormality Abnormal ECG No significant changes when compared with the previous EKG of 29 jul 2022 Referred By: Roxana Andrew Electronically Signed By:MABEL MIDDLETON
[2022-10-10] MEDS: Acetaminophen 325 MG TABLET 975 MG PO (12:10)
[2022-10-10 13:24] LABS: MANUAL DIFF FLAG NO
[2022-10-10 13:26] LABS: Basophils Absolute Auto 0.1 X10*3/uL (0.0-0.2); Basophils Percent Auto 0.6 % (0-2); Eosinophils Absolute Auto 0.2 X10*3/uL (0.0-0.4); Eosinophils Percent Auto 1.8 % (0-4); Hemoglobin 10.5 g/dl (12.0-16.0); Imm Gran Abs Auto 0.05 X10*3/uL (0.00-0.03); Imm Gran Pct Auto 0.4 % (0.0-0.4); Lymphocytes Absolute Auto 1.1 X10*3/uL (1.2-4.9); Lymphocytes Percent Auto 9.4 % (20-40); Mean Corpuscular HGB Conc 30.9 g/dl (31.0-35.0); Mean Corpuscular Hemoglobin 22.2 pg (27.0-33.0); Mean Corpuscular Volume 71.9 fL (80.0-98.0); Monocytes Absolute Auto 0.6 X10*3/uL (0.1-1.2); Monocytes Percent Auto 5.1 % (2-11); Neutrophils Absolute Auto 9.8 x10*3/uL (2.0-8.3); Neutrophils Percent Auto 82.7 % (45-73); Platelet Count 394 X10*3/uL (160-400); Red Blood Count 4.73 X10*6/uL (4.20-5.50); Red Cell Distribution Width 17.6 % (11.0-16.0); White Blood Count 11.8 X10*3/uL (4.8-10.8)
--- NOTE | 2022-10-10 13:32 | PHA.MEDREC ---
Pharmacy Consult ? Medication Reconciliation Pharmacy has completed the medication reconciliation. Spoke with patient and family member in ED. verified insulin dose of 34 units daily. patient did not know all meds but stated she picks everything up at [facility]
[2022-10-10 13:38] LABS: INTERNATIONAL NORM RATIO 1.2 (0.9-1.1); Prothrombin Time 13.4 SEC (10.0-13.1)
[2022-10-10 13:41] LABS: Partial Thromboplastin Time 35.6 SEC (26.0-36.4)
[2022-10-10 13:58] LABS: Alanine Aminotransferase 12 U/L (0-31); Albumin Level 3.7 g/dL (3.5-5.0); Alkaline Phosphatase 141 U/L (39-117); Anion Gap 15 (12-20); Aspartate Amino Transferase 17 U/L (5-31); Bilirubin Direct 0.4 mg/dL (0.0-0.5); Bilirubin Total 0.9 mg/dL (0.0-1.0); Blood Urea Nitrogen 20 mg/dL (9-16); Calcium 9.3 mg/dL (8.4-10.2); Carbon Dioxide 26 mmol/L (22-29); Chloride 106 mmol/L (96-108); Creatinine Clr Calc Pharmacy 46.5; Estimated Glomerular Filt Rate 50; Glucose Random 73 mg/dL (60-115); Magnesium 2.2 mg/dL (1.6-2.6); Potassium 3.8 mmol/L (3.3-5.1); Sodium 143 mmol/L (135-145); Total Protein 7.1 g/dL (6.5-8.0)
[2022-10-10 14:01] LABS: B Type Natriuretic Peptide 758 pg/mL (<100)
[2022-10-10 14:02] LABS: Troponin-I High Sensitivity 30.2 ng/L (<3.5-17.0)
[2022-10-10] MEDS: Furosemide 40 MG/4 ML VIAL IVPUSH (14:03)
[2022-10-10 14:04] LABS: Influenza A PCR NEGATIVE (Negative); Influenza B PCR NEGATIVE (Negative); Resp Syncy Virus RNA Qual PCR NEGATIVE (Negative); SARS COV2 PCR INHOUSE NEGATIVE (Negative)
[2022-10-10 14:16] LABS: Procalcitonin 0.02 ng/mL
[2022-10-10] MEDS: Magnesium Hydrox/Alum Hydrox 30 ML ORAL.SUSP PO (14:39)
--- NOTE | 2022-10-10 15:31 | PM.IMHP ---
History of Present Illness Date of Service: 10/10/22 Chief Complaint: Chest pressure 77-year-old female presenting from home via EMS with worsening SOB for the last 3 days along with nontraumtic upper back pain. She states she has been using her O2 more lately. She is more SOB in the mornings when she wakes up and when she exerts herself in any way. She has been sleeping with her 2L NC and 2 pillows. She has been compliant with her diuretics and her weight has gone up and down. She denies any chest pains. No notable increase in her LE swelling.?She also has hx of severe and is [place] [facility] [place] She underwent cardiology catheterization in July 2022 and has been awaiting o/p AVR. She denies chest pain, nausea, vomiting, diarrhea, fever, chills, recent illness, sick contacts. States compliance with all of her Medicaid. BNP 758, chest x-ray showing increased moderate right and left pleural effusions with increased bibasilar airspace opacities reflecting atelectasis, infection and/or edema. Stable blood pressure. All other labs are within acceptable limits. Patient received a dose of IV Lasix, Tylenol and Maalox in the ER. She will be admitted for further management and treatment of acute on chronic hypoxic respiratory failure secondary to acute on chronic congestive heart failure Review of Systems Review of Systems: Denies any recent fever chills or decrease in appetite respiratory denies any shortness of breath coverage production cardiovascular See HPI gastrointestinal denies any dysphagia abdominal pain nausea vomiting or diarrhea genitourinary denies any dysuria frequency or hematuria musculoskeletal denies any joint pain or swelling neuropsych denies any weakness or seizures all other systems reviewed are negative [facility] Medical History (Updated 10/11/22 @ 11:08 by Johnnie Lee MD) Aortic stenosis Asthma Back pain Chronic kidney disease CKD (chronic kidney disease) stage 3, GFR 30-59 ml/min Diabetic nephropathy associated with type 2 diabetes mellitus Diabetic polyneuropathy associated with type 2 diabetes mellitus Dyslipidemia GERD (gastroesophageal reflux disease) HLD (hyperlipidemia) Hypertension Morbid obesity JOSE (obstructive sleep apnea) Pancreatic insufficiency 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 Vitamin D deficiency Family History Sister History of renal pelvis cancer Father Suicide Mother Lung disease Diabetes mellitus Surgical History History of breast lump/mass excision History of cholecystectomy History of tubal ligation Social History Household Members: Family Housing: House Do you presently have visiting nurse or other home services: Yes (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) Alcohol intake: never Patient Tobacco Use Status: Former Tobacco user Tobacco use type: Cigarette Years Smoked: 5 years Smoked in Last 30 Days: No e-Cigarette/Vaping Use: Never Used Patient Interested in Nicotine Replacement: No Second Hand Smoke Exposure: No Use of substances other than those prescribed or required for medical reasons: No Currently Displaying Signs/Symptoms of Drug Intoxication Withdrawal: No Advance Directives: No Advance Directives Information Provided: Yes Recently lost weight without trying: No Eating poorly because of decreased appetite: No Nutrition Risks: No Nutritional Risk Patient : No : No service: No Current occupational status: unemployed and disabled Gender identity: Female Cognitive needs: Yes Hearing needs: No Vision needs: No Meds Allergies Allergy/AdvReac Type Severity Reaction Status Date / Time acetaminophen [Percocet] Allergy Intermediate Itching Verified 09/21/22 13:35 ibuprofen [From MOTRIN] Allergy Intermediate RASH Verified 09/21/22 13:35 Motrin Allergy Intermediate high blood Verified 09/21/22 13:35 pressure oxycodone [From PERCOCET] Allergy Intermediate ITCHING Verified 09/21/22 13:35 Active Medications: Current Medications Pharmacy Consult (Consult Rx Perform Med Rec) 1 each MISCELLANE ONCE PRN PRN Reason: Consult order Home Medications Medication Instructions Recorded Confirmed Last Taken Type atorvastatin 40 mg tablet 40 mg PO BEDTIME 01/18/21 10/10/22 10/09/22 History carvedilol 25 mg tablet 25 mg PO BID 01/18/21 10/10/22 10/10/22 History montelukast 10 mg tablet 10 mg PO BEDTIME 01/18/21 10/10/22 10/09/22 History gabapentin 300 mg capsule 300 mg PO BEDTIME 02/20/21 10/10/22 10/09/22 History albuterol sulfate 90 mcg/actuation 2 puff PO Q4-6H PRN dyspnea 08/21/21 10/10/22 Unknown History aerosol inhaler (Ventolin HFA) aspirin 81 mg tablet,delayed 81 mg PO BEDTIME 08/21/21 10/10/22 10/09/22 History release brimonidine 0.2 % eye drops 1 drp ophthalmic (eye) BID 08/21/21 10/10/22 10/10/22 History cyanocobalamin (vitamin B-12) 1,000 mcg PO DAILY 08/21/21 10/10/22 10/10/22 History 1,000 mcg tablet folic acid 1 mg tablet 1 mg PO DAILY 08/21/21 10/10/22 10/10/22 History latanoprost 0.005 % eye drops 1 drp ophthalmic (eye) BEDTIME 08/21/21 10/10/22 10/10/22 History fluticasone propionate 50 1 spray intranasal DAILY 06/18/22 10/10/22 10/10/22 History mcg/actuation nasal spray,suspension cetirizine 5 mg tablet 1 tab PO DAILY PRN allergies 07/29/22 10/10/22 Unknown History ergocalciferol (vitamin D2) 1,250 1 cap PO [place]@0900 07/29/22 10/10/22 10/10/22 History mcg (50,000 unit) capsule hydralazine 50 mg tablet 50 mg PO BID 07/29/22 10/10/22 10/10/22 History blood-glucose meter (FreeStyle #1 ea 08/12/22 09/10/22 10/10/22 History [place] Lite kit) esomeprazole magnesium 40 mg 1 cap PO DAILY@0630 10/10/22 10/10/22 10/10/22 History capsule,delayed release fluticasone fur. 200 mcg-umeclid 1 puff inhalation DAILY 10/10/22 10/10/22 10/10/22 History 62.5 mcg-vilant 25 mcg inhalat.powder (Trelegy Ellipta) insulin aspart U-100 100 unit/mL See Protocol subcut TIDAC 10/10/22 10/10/22 10/10/22 History (3 mL) subcutaneous pen (Novolog FlexPen U-100 Insulin aspart) insulin glargine U-300 conc 300 34 unit subcut DAILY 10/10/22 10/10/22 10/10/22 History unit/mL (1.5 mL) subcutaneous pen (Toujeo SoloStar U-300 Insulin) linagliptin 5 mg tablet (Tradjenta) 5 mg PO DAILY 10/10/22 10/10/22 10/10/22 History bremfr-mgdmoayi-iwpcbvu 1 cap PO QIDWMHS 10/10/22 10/10/22 Unknown History 24,000-76,000-120,000 unit capsule,delayed rel (Creon) polyethylene glycol 3350 17 17 g PO DAILY PRN Constipation 10/10/22 10/10/22 10/10/22 History gram/dose oral powder (Miralax) simethicone 125 mg capsule (Gas 1 tab PO Q8H PRN abdominal pain 10/10/22 10/10/22 Unknown History Relief Extra Strength) sucralfate 1 gram tablet 2 tab PO DAILY 10/10/22 10/10/22 10/10/22 History Physical Exam Vital Signs and Narrative: Vital Signs: Last Vital Signs Temp 98.2 F 10/10/22 11:56 Pulse 62 10/10/22 11:56 Resp 20 10/10/22 11:56 BP 162/57 H 10/10/22 11:56 Pulse Ox 96 10/10/22 11:56 O2 Del Method 10/10/22 11:56 BMI result Body Mass Index 42.6 Appearing in no acute distress head is normocephalic atraumatic eyes pupils are PERRLA sclera is anicteric mouth throat mucous membranes are intact and moist neck is supple no lymphadenopathy, no JVD noted lung sounds rales, +1 LE edema heart regular rate rhythm positive bowel sounds, abdomen is soft, nontender neuro patient is alert x3, no focal deficits Results Labs 10/10/22 13:16 10/10/22 13:16 Labs: Laboratory Results - last 24 hr 10/10/22 10/10/22 10/10/22 13:16 13:16 13:16 MCV 71.9 L MCH 22.2 L MCHC 30.9 L RDW 17.6 H Plt Count 394 MPV 9.0 L Immature Gran % (Auto) 0.4 Neut % (Auto) 82.7 H Lymph % (Auto) 9.4 L [place] % (Auto) 5.1 Eos % (Auto) 1.8 Baso % (Auto) 0.6 Lymph # (Auto) 1.1 L [place] # (Auto) 0.6 Eos # (Auto) 0.2 Baso # (Auto) 0.1 Abs Immat Gran (auto) 0.05 H Absolute Neuts (auto) 9.8 H Absolute Nucleated RBC 0.000 Nucleated RBC % (auto) 0.0 PT 13.4 H INR 1.2 H APTT 35.6 Anion Gap 15 Estim Creat Clear Calc 46.5 Estimated GFR 50 Random Glucose 73 Calcium 9.3 Magnesium 2.2 Total Bilirubin 0.9 Direct Bilirubin 0.4 AST 17 ALT 12 Alkaline Phosphatase 141 H Troponin I High Sens B-Natriuretic Peptide Total Protein 7.1 Albumin 3.7 Procalcitonin Influenza Type A (PCR) Influenza Type B (PCR) RSV RNA Qual (PCR) SARS-CoV-2 RNA (RT-PCR) 10/10/22 10/10/22 10/10/22 13:16 13:16 13:16 MCV MCH MCHC RDW Plt Count MPV Immature Gran % (Auto) Neut % (Auto) Lymph % (Auto) [place] % (Auto) Eos % (Auto) Baso % (Auto) Lymph # (Auto) [place] # (Auto) Eos # (Auto) Baso # (Auto) Abs Immat Gran (auto) Absolute Neuts (auto) Absolute Nucleated RBC Nucleated RBC % (auto) PT INR APTT Anion Gap Estim Creat Clear Calc Estimated GFR Random Glucose Calcium Magnesium Total Bilirubin Direct Bilirubin AST ALT Alkaline Phosphatase Troponin I High Sens 30.2 H D B-Natriuretic Peptide 758 H Total Protein Albumin Procalcitonin Influenza Type A (PCR) NEGATIVE Influenza Type B (PCR) NEGATIVE RSV RNA Qual (PCR) NEGATIVE SARS-CoV-2 RNA (RT-PCR) NEGATIVE 10/10/22 13:16 MCV MCH MCHC RDW Plt Count MPV Immature Gran % (Auto) Neut % (Auto) Lymph % (Auto) [place] % (Auto) Eos % (Auto) Baso % (Auto) Lymph # (Auto) [place] # (Auto) Eos # (Auto) Baso # (Auto) Abs Immat Gran (auto) Absolute Neuts (auto) Absolute Nucleated RBC Nucleated RBC % (auto) PT INR APTT Anion Gap Estim Creat Clear Calc Estimated GFR Random Glucose Calcium Magnesium Total Bilirubin Direct Bilirubin AST ALT Alkaline Phosphatase Troponin I High Sens B-Natriuretic Peptide Total Protein Albumin Procalcitonin 0.02 Influenza Type A (PCR) Influenza Type B (PCR) RSV RNA Qual (PCR) SARS-CoV-2 RNA (RT-PCR) Imaging Radiologist's Impressions: Impressions Chest X-Ray 10/10/22 12:32 FINDINGS/IMPRESSION: * Indistinctness of the central pulmonary vasculature with increased interstitial opacities suggesting pulmonary edema. * Increasing moderate right and similar trace left pleural effusions, with increased bibasilar airspace opacities, which may reflect worsening atelectasis, infection, and/or above-described edema.. No pneumothorax. * Unchanged cardiomediastinal silhouette. Assessment and Plan (1) Acute on chronic diastolic (congestive) heart failure: Status: Acute Plan 77 year old women admitted with acute on chronic heart failure HFpEF with hx of severe aortic stenosis [place] [facility] [place]NP 758 Lasix IV BID monitor on telemetry cardiology consultation echo Throat pain will get strep swab Acute on chronic back pain kpads oxycodone for pain DM2 ss, ada diet CKD 3A stable Hypertension continue home medications CAD asa, statin DVT prophylaxis with heparin Attending Dr. Guillory Full code continued hospitalization for tx of acute CHF exacerbation Time Spent With Patient Time: Total time managing care of this patient today ____ minutes. Quality Stroke Does the patient have a stroke diagnosis?: No VTE Prior VTE?: No VTE Risk Level:: Medical - moderate - high VTE Device Contraindication: Treatment Not Indicated VTE Drug Contraindication: N/A - Med Ordered
[2022-10-10 16:15] VITALS: BP 152/51; PULSE 60; RESP 17; TEMP 36.8; O2SAT 95
[2022-10-10 16:40] LABS: Appearance Urine Clear; Color Urine Yellow; Glucose Urine UA Negative (Negative); Leukocyte Esterase Urine Negative (Negative); Nitrite Urine Negative (Negative); PH 6.5 (5.0-9.0); Specific Gravity - Urine <= 1.005 (1.005-1.025); UMIC TRIGGER UACC YES; Urine Blood Negative (Negative); Urine Ketones Negative (Negative); Urine Protein 100 (2+) mg/dL (Neg-Trace)
[2022-10-10 16:43] LABS: Bacteria Urine None Seen (None Seen); RBC Urine 0-2 /HPF (0-2); Squamous Epithelial Cell Urine 0-2 /HPF (0-2); WBC Urine 0-5 /HPF (0-5)
[2022-10-10] MEDS: Furosemide 20 MG/2 ML VIAL IVPUSH (18:42)
[2022-10-10 18:44] VITALS: BP 182/76; PULSE 69; RESP 18; TEMP 36.6; O2SAT 94
[2022-10-10 18:44] LABS: Glucose, Whole Blood 99 mg/dL (60-115)
[2022-10-10] MEDS: Heparin Sodium,Porcine 5,000 UNIT/ML VIAL 5000 UNIT SUBCUT (19:36)
[2022-10-10 20:00] VITALS: BP 147/63; PULSE 61; RESP 20; TEMP 36.9; O2SAT 93
[2022-10-10] MEDS: Atorvastatin Calcium 40 MG TABLET PO (21:41)
[2022-10-10] MEDS: carvediloL 25 MG TABLET PO (21:41)
[2022-10-10] MEDS: Montelukast Sodium 10 MG TABLET PO (21:41)
[2022-10-10] MEDS: hydrALAZINE HCl 50 MG TABLET PO (21:41)
[2022-10-10] MEDS: Brimonidine Tartrate 0.2% Oph 5 ML BOTTLE 1 DROP EYE-BOTH (21:41)
[2022-10-10] MEDS: Gabapentin 300 MG CAPSULE PO (21:41)
[2022-10-10] MEDS: Aspirin Enteric Coated 81 MG TABLET.DR PO (21:41)
[2022-10-10] MEDS: Latanoprost 0.005 % Ophth Sol 2.5 ML DROPS 1 DROP EYE-BOTH (21:41)
[2022-10-10] MEDS: Lipase/Prot/Amylase 24/76/120K 1 CAP CAPSULE.DR PO (21:41)
[2022-10-10] MEDS: Sennosides 8.6 MG TABLET 17.2 MG PO (21:42)
[2022-10-10] MEDS: bisacodyL 5 MG TABLET.DR 10 MG PO (21:42)
[2022-10-10] MEDS: 0.9 % Sodium Chloride Flush 3 ML SYRINGE IVFLUSH (21:45)
[2022-10-10 21:48] LABS: Glucose, Whole Blood 116 mg/dL (60-115)
[2022-10-11] VITALS: PULSE 58
[2022-10-11 04:00] VITALS: BP 155/68; PULSE 57; RESP 20; TEMP 36.1; O2SAT 96
[2022-10-11] MEDS: Heparin Sodium,Porcine 5,000 UNIT/ML VIAL 5000 UNIT SUBCUT (05:27)
[2022-10-11] MEDS: Omeprazole 20 MG CAPSULE.DR PO (05:27)
[2022-10-11 06:00] VITALS: BMI 41.6
[2022-10-11 06:16] LABS: MANUAL DIFF FLAG NO
[2022-10-11 06:20] LABS: Basophils Absolute Auto 0.1 X10*3/uL (0.0-0.2); Basophils Percent Auto 0.6 % (0-2); Eosinophils Absolute Auto 0.1 X10*3/uL (0.0-0.4); Eosinophils Percent Auto 1.2 % (0-4); Hematocrit 32.6 % (37.0-47.0); Hemoglobin 9.8 g/dl (12.0-16.0); Imm Gran Abs Auto 0.04 X10*3/uL (0.00-0.03); Imm Gran Pct Auto 0.4 % (0.0-0.4); Lymphocytes Absolute Auto 1.2 X10*3/uL (1.2-4.9); Lymphocytes Percent Auto 11.3 % (20-40); Mean Corpuscular HGB Conc 30.1 g/dl (31.0-35.0); Mean Corpuscular Hemoglobin 22.1 pg (27.0-33.0); Mean Corpuscular Volume 73.4 fL (80.0-98.0); Mean Platelet Volume 9.3 fL (9.4-12.3); Monocytes Absolute Auto 0.6 X10*3/uL (0.1-1.2); Monocytes Percent Auto 5.7 % (2-11); Neutrophils Absolute Auto 8.5 x10*3/uL (2.0-8.3); Neutrophils Percent Auto 80.8 % (45-73); Platelet Count 379 X10*3/uL (160-400); Red Blood Count 4.44 X10*6/uL (4.20-5.50); Red Cell Distribution Width 18.1 % (11.0-16.0); White Blood Count 10.5 X10*3/uL (4.8-10.8)
[2022-10-11 06:43] LABS: B Type Natriuretic Peptide 614 pg/mL (<100)
[2022-10-11 06:48] LABS: Anion Gap 15 (12-20); Blood Urea Nitrogen 22 mg/dL (9-16); Calcium 9.5 mg/dL (8.4-10.2); Carbon Dioxide 30 mmol/L (22-29); Chloride 105 mmol/L (96-108); Creatinine Clr Calc Pharmacy 39.3; Estimated Glomerular Filt Rate 42; Glucose Random 60 mg/dL (60-115); Potassium 3.8 mmol/L (3.3-5.1); Sodium 146 mmol/L (135-145)
[2022-10-11 07:45] VITALS: BP 153/67; PULSE 58; RESP 17; TEMP 36.2; O2SAT 97
[2022-10-11] MEDS: Fluticasone/Vilanterol 200/25 BLST.W.DEV 1 PUFF INHALE (08:22)
[2022-10-11 08:25] VITALS: PULSE 68; RESP 18; O2SAT 95
[2022-10-11] MEDS: Insulin Glargine,Hum.rec.anlog 100 UNIT/ML 10 ML VIAL 27 UNIT SUBCUT (09:04)
[2022-10-11] MEDS: Furosemide 20 MG/2 ML VIAL IVPUSH (09:04)
[2022-10-11] MEDS: Brimonidine Tartrate 0.2% Oph 5 ML BOTTLE 1 DROP EYE-BOTH (09:05)
[2022-10-11] MEDS: Fluticasone Propionate Nasal 16 GM SPRAY 1 SPRAY NOSTRIL-B (09:05)
[2022-10-11] MEDS: Folic Acid 1 MG TABLET PO (09:05)
[2022-10-11] MEDS: carvediloL 25 MG TABLET PO (09:05)
[2022-10-11] MEDS: hydrALAZINE HCl 50 MG TABLET PO (09:05)
[2022-10-11] MEDS: Ergocalciferol (Vitamin D2) 1,250 MCG CAPSULE 1250 MCG PO (09:05)
[2022-10-11] MEDS: Lipase/Prot/Amylase 24/76/120K 1 CAP CAPSULE.DR PO ×2 (09:05→12:39)
[2022-10-11] MEDS: amLODIPine Besylate 10 MG TABLET PO (09:05)
[2022-10-11] MEDS: Sucralfate 1 GM TABLET 2 GM PO (09:05)
[2022-10-11] MEDS: 0.9 % Sodium Chloride Flush 3 ML SYRINGE IVFLUSH (09:06)
[2022-10-11] MEDS: Cyanocobalamin (Vitamin B-12) 1,000 MCG TABLET 1000 MCG PO (09:06)
--- NOTE | 2022-10-11 10:02 | MHC.CM.PN ---
Interview conducted w/Jaqueline (Primary contact listed, daughter). Patient lives w/, owns cane and walker, does not drive. Should she need to go somewhere, either her family or her [employer] takes her. She has 14 hours of [employer] services primarily HS. Jaqueline indicates patient absolutely will not go back to a SNF ever, she is requesting CM dept not consider this as D/C plan. She indicates that patient's insurance company [employer], will provide all in-home services determined needed for patient. CM to follow.
--- NOTE | 2022-10-11 11:01 | P.CONCA_ITS ---
History of Present Illness History of Present Illness Date of Service: 10/11/22 Chief complaint: CHF Narrative: This is a cardiology consultation regarding shortness of breath. Patient has multivessel coronary disease as well as severe aortic stenosis. It seems that she is supposed to go for possibly TAVR but details are not clear. Patient states that workup is still in progress. Current admission is because of shortness of breath, possibly thought to be from congestive heart failure. No clear anginal-type symptoms. She has numerous other complaints like pains and difficult to assess in spite of therapist physical. Review of Systems Review of Systems: Yes all other systems are reviewed and are negative Constitutional: Constitutional: Reports as per HPI Eyes: Eyes: Reports as per HPI ENT: Reports as per HPI Cardiovascular: Cardiovascular: Reports as per HPI, Denies acrocyanosis, Denies cool extremities, Denies chest pain, Denies leg edema, Denies lightheadedness, Denies palpitations and Reports dyspnea Respiratory: Respiratory: Reports as per HPI, Reports no additional respiratory complaints and Reports dyspnea Gastrointestinal: Gastrointestinal: Reports as per HPI and Reports no sandra tional gastrointestinal complaints Genitourinary: Genitourinary: Reports as per HPI Musculoskeletal: Musculoskeletal: Reports no additional musculoskeletal complaints and Reports as per HPI Integumentary/Breasts: Skin/Breast: Reports system reviewed and no additional complaints, except as docu Neurologic: Reports system reviewed and no additional complaints, except as documented and Reports as per HPI Psychiatric: Psychiatric: Reports no additional psychiatric complaints and Reports as per HPI Endocrine: Endocrine: Reports no additional endocrine complaints, Reports as per HPI and Denies palpitations Hematologic/Lymphatic: Hematologic/Lymphatic: Reports no additional hematologic/lymphatic complaints and Reports as per HPI Allergic/Immunologic: Allergic/Immunologic: Reports no additional allergic/immunologic complaints and Reports as per HPI [facility] Past Medical History Medical History (Updated 10/11/22 @ 11:08 by Johnnie Lee MD) Aortic stenosis Asthma Back pain Chronic kidney disease CKD (chronic kidney disease) stage 3, GFR 30-59 ml/min Diabetic nephropathy associated with type 2 diabetes mellitus Diabetic polyneuropathy associated with type 2 diabetes mellitus Dyslipidemia GERD (gastroesophageal reflux disease) HLD (hyperlipidemia) Hypertension Morbid obesity JOSE (obstructive sleep apnea) Pancreatic insufficiency 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 Vitamin D deficiency Family History Family History Sister History of renal pelvis cancer Father Suicide Mother Lung disease Diabetes mellitus Surgical History Surgical History History of breast lump/mass excision History of cholecystectomy History of tubal ligation Social History Social History Household Members: Family Housing: House Do you presently have visiting nurse or 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) Alcohol intake: never Patient Tobacco Use Status: Former Tobacco user Tobacco use type: Cigarette Years Smoked: 5 years Smoked in Last 30 Days: No e-Cigarette/Vaping Use: Never Used Patient Interested in Nicotine Replacement: No Second Hand Smoke Exposure: No Use of substances other than those prescribed or required for medical reasons: No Currently Displaying Signs/Symptoms of Drug Intoxication Withdrawal: No Advance Directives: No Advance Directives Information Provided: Yes Recently lost weight without trying: No Eating poorly because of decreased appetite: No Nutrition Risks: No Nutritional Risk Patient : No : No service: No Current occupational status: unemployed and disabled Gender identity: Female Cognitive needs: Yes Hearing needs: No Vision needs: No Meds Allergies Allergy/AdvReac Type Severity Reaction Status Date / Time acetaminophen [Percocet] Allergy Intermediate Itching Verified 09/21/22 13:35 ibuprofen [From MOTRIN] Allergy Intermediate RASH Verified 09/21/22 13:35 Motrin Allergy Intermediate high blood Verified 09/21/22 13:35 pressure oxycodone [From PERCOCET] Allergy Intermediate ITCHING Verified 09/21/22 13:35 Active Medications: Current Medications Acetaminophen (Acetaminophen 325 Mg Tablet) 650 mg PO Q6H PRN PRN Reason: Pain, Mild (Pain Scale 1-3) Albuterol Sulfate (Albuterol Sulfate 90 Mcg 8 Gm Inhaler) 2 puff INHALE Q4H PRN PRN Reason: dyspnea Amlodipine Besylate (Amlodipine Besylate 10 Mg Tablet) 10 mg PO DAILY [facility]; Protocol Last Admin: 10/11/22 09:05 Dose: 10 mg Lipase/Protease/Amylase (Lipase/Prot/Amylase 24/76/120k 1 Cap Capsule.) 1 cap PO QIDACHS [facility] Last Admin: 10/11/22 09:05 Dose: 1 cap Aspirin (Aspirin Enteric Coated 81 Mg Tablet.) 81 mg PO BEDTIME [facility] Last Admin: 10/10/22 21:41 Dose: 81 mg Atorvastatin Calcium (Atorvastatin Calcium 40 Mg Tablet) 40 mg PO BEDTIME [facility] Last Admin: 10/10/22 21:41 Dose: 40 mg Bisacodyl (Bisacodyl 5 Mg Tablet.Dr) 10 mg PO BEDTIME [facility] Last Admin: 10/10/22 21:42 Dose: 10 mg Brimonidine Tartrate (Brimonidine Tartrate 0.2% Oph 5 Ml Bottle) 1 drop EYE- BOTH BID [facility] Last Admin: 10/11/22 09:05 Dose: 1 drop Carvedilol (Carvedilol 25 Mg Tablet) 25 mg PO BID [facility]; Protocol Last Admin: 10/11/22 09:05 Dose: 25 mg Cyanocobalamin (Cyanocobalamin (Vitamin B-12) 1,000 Mcg Tablet) 1,000 mcg PO DAILY [facility] Last Admin: 10/11/22 09:06 Dose: 1,000 mcg Ergocalciferol (Ergocalciferol (Vitamin D2) 1,250 Mcg Capsule) 1,250 mcg PO [place]@0900 [facility] Last Admin: 10/11/22 09:05 Dose: 1,250 mcg Fluticasone Propionate (Fluticasone Propionate Nasal [address] [facility]) 1 spray NOSTRIL-B DAILY [facility] Last Admin: 10/11/22 09:05 Dose: 1 spray Fluticasone/Vilanterol (Fluticasone/Vilanterol 200/25 Blst.W.Dev) 1 puff INHALE RDAILY [facility] Last Admin: 10/11/22 08:22 Dose: 1 puff Folic Acid (Folic Acid 1 Mg Tablet) 1 mg PO DAILY [facility] Last Admin: 10/11/22 09:05 Dose: 1 mg Furosemide (Furosemide 20 Mg/2 Ml Vial) 20 mg IVPUSH BID@0900,1800 [facility]; Protocol Last Admin: 10/11/22 09:04 Dose: 20 mg Gabapentin (Gabapentin 300 Mg Capsule) 300 mg PO BEDTIME [facility] Last Admin: 10/10/22 21:41 Dose: 300 mg Heparin Sodium (Porcine) (Heparin Sodium,Porcine 5,000 Unit/Ml Vial) 5,000 unit SUBCUT Q12H [facility] Last Admin: 10/11/22 05:27 Dose: 5,000 unit Hydralazine HCl (Hydralazine Hcl 50 Mg Tablet) 50 mg PO BID [facility]; Protocol Last Admin: 10/11/22 09:05 Dose: 50 mg Insulin Glargine (Insulin Glargine,Hum.Rec.Anlog 100 Unit/Ml 10 Ml Vial) 27 unit SUBCUT DAILY [facility] Last Admin: 10/11/22 09:04 Dose: 27 unit Latanoprost (Latanoprost 0.005 % Ophth Shahla 2.5 Ml Drops) 1 drop EYE-BOTH BEDTIME [facility] Last Admin: 10/10/22 21:41 Dose: 1 drop Loratadine (Loratadine 10 Mg Tablet) 10 mg PO DAILY PRN PRN Reason: allergies Montelukast Sodium (Montelukast Sodium 10 Mg Tablet) 10 mg PO BEDTIME [facility] Last Admin: 10/10/22 21:41 Dose: 10 mg Omeprazole (Omeprazole 20 Mg Capsule.Dr) 20 mg PO DAILY@0630 [facility] Last Admin: 10/11/22 05:27 Dose: 20 mg Ondansetron HCl (Ondansetron Hcl 4 Mg/2 Ml Vial) 4 mg IVPUSH Q8H PRN PRN Reason: Nausea and Vomiting Oxycodone HCl (Oxycodone Hcl Immed Release 5 Mg Tablet) 5 mg PO Q6H PRN PRN Reason: Pain, Severe (Pain Scale 7-10) Pharmacy Consult (Consult Rx Perform Med Rec) 1 each MISCELLANE ONCE PRN PRN Reason: Consult order Polyethylene Glycol (Polyethylene Glycol 3350 17 Gm Powd.Pack) 17 gm PO DAILY PRN PRN Reason: Constipation Senna (Sennosides 8.6 Mg Tablet) 17.2 mg PO BEDTIME [facility] Last Admin: 10/10/22 21:42 Dose: 17.2 mg Simethicone (Simethicone 80 Mg Tab.Chew) 1 mg PO Q8H PRN PRN Reason: abdominal pain Sitagliptin Phosphate (Sitagliptin Phosphate 50 Mg Tablet) 50 mg PO DAILY [facility] Last Admin: 10/11/22 09:02 Dose: Not Given Sodium Chloride (0.9 % Sodium Chloride Flush 3 Ml Syringe) 3 ml IVFLUSH QSHIFT [facility] Last Admin: 10/11/22 09:06 Dose: 3 ml Sucralfate (Sucralfate 1 Gm Tablet) 2 gm PO DAILY [facility] Last Admin: 10/11/22 09:05 Dose: 2 gm Tiotropium [place] (Tiotropium [place] 18 Mcg Cap.W.Dev) 1 puff INHALE RDAILY [facility] Last Admin: 10/11/22 08:22 Dose: 1 puff Home Medications Medication Instructions Recorded Confirmed Last Taken Type atorvastatin 40 mg tablet 40 mg PO BEDTIME 01/18/21 10/10/22 10/09/22 History carvedilol 25 mg tablet 25 mg PO BID 01/18/21 10/10/22 10/10/22 History montelukast 10 mg tablet 10 mg PO BEDTIME 01/18/21 10/10/22 10/09/22 History gabapentin 300 mg capsule 300 mg PO BEDTIME 02/20/21 10/10/22 10/09/22 History albuterol sulfate 90 mcg/actuation 2 puff PO Q4-6H PRN dyspnea 08/21/21 10/10/22 Unknown History aerosol inhaler (Ventolin HFA) aspirin 81 mg tablet,delayed 81 mg PO BEDTIME 08/21/21 10/10/22 10/09/22 History release brimonidine 0.2 % eye drops 1 drp ophthalmic (eye) BID 08/21/21 10/10/22 10/10/22 History cyanocobalamin (vitamin B-12) 1,000 mcg PO DAILY 08/21/21 10/10/22 10/10/22 History 1,000 mcg tablet folic acid 1 mg tablet 1 mg PO DAILY 08/21/21 10/10/22 10/10/22 History latanoprost 0.005 % eye drops 1 drp ophthalmic (eye) BEDTIME 08/21/21 10/10/22 10/10/22 History fluticasone propionate 50 1 spray intranasal DAILY 06/18/22 10/10/22 10/10/22 History mcg/actuation nasal spray,suspension cetirizine 5 mg tablet 1 tab PO DAILY PRN allergies 07/29/22 10/10/22 Unknown History ergocalciferol (vitamin D2) 1,250 1 cap PO [place]@0900 07/29/22 10/10/22 10/10/22 History mcg (50,000 unit) capsule hydralazine 50 mg tablet 50 mg PO BID 07/29/22 10/10/22 10/10/22 History blood-glucose meter (FreeStyle #1 ea 08/12/22 09/10/22 10/10/22 History [place] Lite kit) esomeprazole magnesium 40 mg 1 cap PO DAILY@0630 10/10/22 10/10/22 10/10/22 History capsule,delayed release fluticasone fur. 200 mcg-umeclid 1 puff inhalation DAILY 10/10/22 10/10/22 10/10/22 History 62.5 mcg-vilant 25 mcg inhalat.powder (Trelegy Ellipta) insulin aspart U-100 100 unit/mL See Protocol subcut TIDAC 10/10/22 10/10/22 10/10/22 History (3 mL) subcutaneous pen (Novolog FlexPen U-100 Insulin aspart) insulin glargine U-300 conc 300 34 unit subcut DAILY 10/10/22 10/10/22 10/10/22 History unit/mL (1.5 mL) subcutaneous pen (Toujeo SoloStar U-300 Insulin) linagliptin 5 mg tablet (Tradjenta) 5 mg PO DAILY 10/10/22 10/10/22 10/10/22 History [id number] 1 cap PO QIDWMHS 10/10/22 10/10/22 Unknown History 24,000-76,000-120,000 unit capsule,delayed rel (Creon) polyethylene glycol 3350 17 17 g PO DAILY PRN Constipation 10/10/22 10/10/22 10/10/22 History gram/dose oral powder (Miralax) simethicone 125 mg capsule (Gas 1 tab PO Q8H PRN abdominal pain 10/10/22 10/10/22 Unknown History Relief Extra Strength) sucralfate 1 gram tablet 2 tab PO DAILY 10/10/22 10/10/22 10/10/22 History Physical Exam Vital Signs: Vital Signs: Last Vital Signs Temp 97.2 F 10/11/22 07:45 Pulse 68 10/11/22 08:25 Resp 18 10/11/22 08:25 BP 153/67 H 10/11/22 07:45 Pulse Ox 97 10/11/22 07:45 O2 Del Method 10/11/22 07:45 O2 Flow Rate 2.0 10/11/22 07:45 BMI result Body Mass Index 41.6 Const: General: comfortable and no acute distress Orientation/consciousness: patient oriented x3 HEENT: Other: Unremarkable Head: Yes normal to inspection Neck: Neck: Yes normal visual inspection Chest: Chest palpation & inspection: normal inspection of the chest Resp: Auscultation: crackles bilateral Cardio: Palpation: normal PMI Heart sounds: S1 normal heart sound present, S2 normal heart sound present, no gallops, Murmur heart sound present systolic III/ and at the right sternal border and no rubs GI: Palpation (GI): Soft to palpation Back/Spine/Pelvis: Other: unremarkable Skin: General skin exam: no rashes or lesions noted Neuro: General: patient oriented x3 Extrem: General: Yes normal to inspection Psych: Mental Status: mental status grossly normal Objective Labs and Meds 10/11/22 05:47 10/11/22 05:47 Lab results: Laboratory Results - last 24 hr 10/10/22 10/10/22 10/10/22 13:16 13:16 13:16 WBC 11.8 H RBC 4.73 Hgb 10.5 L Hct 34.0 L MCV 71.9 L MCH 22.2 L MCHC 30.9 L RDW 17.6 H Plt Count 394 MPV 9.0 L Immature Gran % (Auto) 0.4 Neut % (Auto) 82.7 H Lymph % (Auto) 9.4 L [place] % (Auto) 5.1 Eos % (Auto) 1.8 Baso % (Auto) 0.6 Lymph # (Auto) 1.1 L [place] # (Auto) 0.6 Eos # (Auto) 0.2 Baso # (Auto) 0.1 Abs Immat Gran (auto) 0.05 H Absolute Neuts (auto) 9.8 H Absolute Nucleated RBC 0.000 Nucleated RBC % (auto) 0.0 PT 13.4 H INR 1.2 H APTT 35.6 Sodium 143 Potassium 3.8 Chloride 106 Carbon Dioxide 26 Anion Gap 15 BUN 20 H Creatinine 1.07 Estim Creat Clear Calc 46.5 Estimated GFR 50 POC Glucose Random Glucose 73 Calcium 9.3 Magnesium 2.2 Total Bilirubin 0.9 Direct Bilirubin 0.4 AST 17 ALT 12 Alkaline Phosphatase 141 H Troponin I High Sens B-Natriuretic Peptide Total Protein 7.1 Albumin 3.7 Procalcitonin Urine Color Urine Appearance Urine pH Ur Specific [place] Urine Protein Urine Glucose (UA) Urine Ketones Urine Blood Urine Nitrite Ur Leukocyte Esterase Urine RBC Urine WBC Ur Squamous Epith Cells Urine Bacteria Hyaline Casts Influenza Type A (PCR) Influenza Type B (PCR) RSV RNA Qual (PCR) SARS-CoV-2 RNA (RT-PCR) 10/10/22 10/10/22 10/10/22 13:16 13:16 13:16 WBC RBC Hgb Hct MCV MCH MCHC RDW Plt Count MPV Immature Gran % (Auto) Neut % (Auto) Lymph % (Auto) [place] % (Auto) Eos % (Auto) Baso % (Auto) Lymph # (Auto) [place] # (Auto) Eos # (Auto) Baso # (Auto) Abs Immat Gran (auto) Absolute Neuts (auto) Absolute Nucleated RBC Nucleated RBC % (auto) PT INR APTT Sodium Potassium Chloride Carbon Dioxide Anion Gap BUN Creatinine Estim Creat Clear Calc Estimated GFR POC Glucose Random Glucose Calcium Magnesium Total Bilirubin Direct Bilirubin AST ALT Alkaline Phosphatase Troponin I High Sens 30.2 H D B-Natriuretic Peptide 758 H Total Protein Albumin Procalcitonin Urine Color Urine Appearance Urine pH Ur Specific [place] Urine Protein Urine Glucose (UA) Urine Ketones Urine Blood Urine Nitrite Ur Leukocyte Esterase Urine RBC Urine WBC Ur Squamous Epith Cells Urine Bacteria Hyaline Casts Influenza Type A (PCR) NEGATIVE Influenza Type B (PCR) NEGATIVE RSV RNA Qual (PCR) NEGATIVE SARS-CoV-2 RNA (RT-PCR) NEGATIVE 10/10/22 10/10/22 10/10/22 13:16 16:29 18:39 WBC RBC Hgb Hct MCV MCH MCHC RDW Plt Count MPV Immature Gran % (Auto) Neut % (Auto) Lymph % (Auto) [place] % (Auto) Eos % (Auto) Baso % (Auto) Lymph # (Auto) [place] # (Auto) Eos # (Auto) Baso # (Auto) Abs Immat Gran (auto) Absolute Neuts (auto) Absolute Nucleated RBC Nucleated RBC % (auto) PT INR APTT Sodium Potassium Chloride Carbon Dioxide Anion Gap BUN Creatinine Estim Creat Clear Calc Estimated GFR POC Glucose 99 Random Glucose Calcium Magnesium Total Bilirubin Direct Bilirubin AST ALT Alkaline Phosphatase Troponin I High Sens B-Natriuretic Peptide Total Protein Albumin Procalcitonin 0.02 Urine Color Yellow Urine Appearance Clear Urine pH 6.5 Ur Specific Spang[place] <= 1.005 Urine Protein 100 (2+) H Urine Glucose (UA) Negative Urine Ketones Negative Urine Blood Negative Urine Nitrite Negative Ur Leukocyte Esterase Negative Urine RBC 0-2 Urine WBC 0-5 Ur Squamous Epith Cells 0-2 Urine Bacteria None Seen Hyaline Casts 3-5 Influenza Type A (PCR) Influenza Type B (PCR) RSV RNA Qual (PCR) SARS-CoV-2 RNA (RT-PCR) 10/10/22 10/11/22 10/11/22 21:43 05:47 05:47 WBC 10.5 RBC 4.44 Hgb 9.8 L Hct 32.6 L MCV 73.4 L MCH 22.1 L MCHC 30.1 L RDW 18.1 H Plt Count 379 MPV 9.3 L Immature Gran % (Auto) 0.4 Neut % (Auto) 80.8 H Lymph % (Auto) 11.3 L [place] % (Auto) 5.7 Eos % (Auto) 1.2 Baso % (Auto) 0.6 Lymph # (Auto) 1.2 [place] # (Auto) 0.6 Eos # (Auto) 0.1 Baso # (Auto) 0.1 Abs Immat Gran (auto) 0.04 H Absolute Neuts (auto) 8.5 H Absolute Nucleated RBC 0.000 Nucleated RBC % (auto) 0.0 PT INR APTT Sodium 146 H Potassium 3.8 Chloride 105 Carbon Dioxide 30 H Anion Gap 15 BUN 22 H Creatinine 1.25 Estim Creat Clear Calc 39.3 Estimated GFR 42 POC Glucose 116 H Random Glucose 60 Calcium 9.5 Magnesium Total Bilirubin Direct Bilirubin AST ALT Alkaline Phosphatase Troponin I High Sens B-Natriuretic Peptide Total Protein Albumin Procalcitonin Urine Color Urine Appearance Urine pH Ur Specific [place] Urine Protein Urine Glucose (UA) Urine Ketones Urine Blood Urine Nitrite Ur Leukocyte Esterase Urine RBC Urine WBC Ur Squamous Epith Cells Urine Bacteria Hyaline Casts Influenza Type A (PCR) Influenza Type B (PCR) RSV RNA Qual (PCR) SARS-CoV-2 RNA (RT-PCR) 10/11/22 05:47 WBC RBC Hgb Hct MCV MCH MCHC RDW Plt Count MPV Immature Gran % (Auto) Neut % (Auto) Lymph % (Auto) [place] % (Auto) Eos % (Auto) Baso % (Auto) Lymph # (Auto) [place] # (Auto) Eos # (Auto) Baso # (Auto) Abs Immat Gran (auto) Absolute Neuts (auto) Absolute Nucleated RBC Nucleated RBC % (auto) PT INR APTT Sodium Potassium Chloride Carbon Dioxide Anion Gap BUN Creatinine Estim Creat Clear Calc Estimated GFR POC Glucose Random Glucose Calcium Magnesium Total Bilirubin Direct Bilirubin AST ALT Alkaline Phosphatase Troponin I High Sens B-Natriuretic Peptide 614 H Total Protein Albumin Procalcitonin Urine Color Urine Appearance Urine pH Ur Specific [place] Urine Protein Urine Glucose (UA) Urine Ketones Urine Blood Urine Nitrite Ur Leukocyte Esterase Urine RBC Urine WBC Ur Squamous Epith Cells Urine Bacteria Hyaline Casts Influenza Type A (PCR) Influenza Type B (PCR) RSV RNA Qual (PCR) SARS-CoV-2 RNA (RT-PCR) ECG Interpretation: EKG with sinus rhythm at 56/Min; nonspecific ST-T changes. Imaging Radiologist's impression: Impressions Chest X-Ray 10/10/22 12:32 FINDINGS/IMPRESSION: * Indistinctness of the central pulmonary vasculature with increased interstitial opacities suggesting pulmonary edema. * Increasing moderate right and similar trace left pleural effusions, with increased bibasilar airspace opacities, which may reflect worsening atelectasis, infection, and/or above-described edema.. No pneumothorax. * Unchanged cardiomediastinal silhouette. Assessment and Plan (1) Acute on chronic diastolic (congestive) heart failure: Status: Acute (2) Aortic stenosis: Qualifiers: Cardiac valve disease etiology: nonrheumatic Qualified Code(s): I35.0 - Nonrheumatic aortic (valve) stenosis Status: Acute Plan Cardiac studies reviewed. Recent echocardiogram from [facility]-July/2022-mean gradient across aortic valve 58 mm Hg, calculated valve area of 0.5 sq cm. LVEF 60-65%. Cardiac catheterization from July-multivessel CAD. Chest x-ray with suggestion of pulmonary edema. Discussed with Dr. Sutherland from [facility]. It seems that due to lack of understanding either TAVR or surgical AVR with CABG has been delayed. However, with her degree of coronary disease as well as aortic valve stenosis, she does need something done sooner than later especially with ongoing symptoms and chest x-ray findings of pulmonary edema. Based on , we will transfer her to [facility]. He is accepting her for further care. Time Spent With Patient Time: Total time managing care of this patient today 70 minutes. Procedures Date of Service Date of Service: 10/11/22
--- NOTE | 2022-10-11 11:12 | HO.PM.IMPN ---
Subjective Subjective Date of Service: 10/11/22 Interval History: Patient feeling better this morning complaining of shortness of breath denies PND orthopnea Physical Exam Vital Signs: Vital Signs: Last Vital Signs Temp 97.2 F 10/11/22 07:45 Pulse 68 10/11/22 08:25 Resp 18 10/11/22 08:25 BP 153/67 H 10/11/22 07:45 Pulse Ox 97 10/11/22 07:45 O2 Del Method 10/11/22 07:45 O2 Flow Rate 2.0 10/11/22 07:45 BMI result Body Mass Index 41.6 Appearing in no acute distress lung sounds rales heart regular rate rhythm, clear S1, S2 positive bowel sounds, abdomen is soft, nontender neuro patient is alert x3, no focal deficits Objective Data Active Medications Acetaminophen (Acetaminophen 325 Mg Tablet) 650 mg PO Q6H PRN PRN Reason: Pain, Mild (Pain Scale 1-3) Albuterol Sulfate (Albuterol Sulfate 90 Mcg 8 Gm Inhaler) 2 puff INHALE Q4H PRN PRN Reason: dyspnea Amlodipine Besylate (Amlodipine Besylate 10 Mg Tablet) 10 mg PO DAILY [facility]; Protocol Last Admin: 10/11/22 09:05 Dose: 10 mg Documented By: LAURA Lipase/Protease/Amylase (Lipase/Prot/Amylase 24/76/120k 1 Cap Capsule.) 1 cap PO QIDACHS [facility] Last Admin: 10/11/22 09:05 Dose: 1 cap Documented By: LAURA Aspirin (Aspirin Enteric Coated 81 Mg Tablet.) 81 mg PO BEDTIME [facility] Last Admin: 10/10/22 21:41 Dose: 81 mg Documented By: KARRIE Atorvastatin Calcium (Atorvastatin Calcium 40 Mg Tablet) 40 mg PO BEDTIME [facility] Last Admin: 10/10/22 21:41 Dose: 40 mg Documented By: KARRIE Bisacodyl (Bisacodyl 5 Mg Tablet.) 10 mg PO BEDTIME [facility] Last Admin: 10/10/22 21:42 Dose: 10 mg Documented By: KARRIE Brimonidine Tartrate (Brimonidine Tartrate 0.2% Oph 5 Ml Bottle) 1 drop EYE-BOTH BID [facility] Last Admin: 10/11/22 09:05 Dose: 1 drop Documented By: LAURA Carvedilol (Carvedilol 25 Mg Tablet) 25 mg PO BID [facility]; Protocol Last Admin: 10/11/22 09:05 Dose: 25 mg Documented By: LAURA Cyanocobalamin (Cyanocobalamin (Vitamin B-12) 1,000 Mcg Tablet) 1,000 mcg PO DAILY [facility] Last Admin: 10/11/22 09:06 Dose: 1,000 mcg Documented By: LAURA Ergocalciferol (Ergocalciferol (Vitamin D2) 1,250 Mcg Capsule) 1,250 mcg PO [place]@0900 [facility] Last Admin: 10/11/22 09:05 Dose: 1,250 mcg Documented By: LAURA Fluticasone Propionate (Fluticasone Propionate Nasal 16 Gm Melvin) 1 spray NOSTRIL-B DAILY [facility] Last Admin: 10/11/22 09:05 Dose: 1 spray Documented By: LAURA Fluticasone/Vilanterol (Fluticasone/Vilanterol 200/25 Blst.W.Dev) 1 puff INHALE RDAILY [facility] Last Admin: 10/11/22 08:22 Dose: 1 puff Documented By: MANDI Folic Acid (Folic Acid 1 Mg Tablet) 1 mg PO DAILY [facility] Last Admin: 10/11/22 09:05 Dose: 1 mg Documented By: LAURA Furosemide (Furosemide 20 Mg/2 Ml Vial) 20 mg IVPUSH BID@0900,1800 [facility]; Protocol Last Admin: 10/11/22 09:04 Dose: 20 mg Documented By: LAURA Gabapentin (Gabapentin 300 Mg Capsule) 300 mg PO BEDTIME [facility] Last Admin: 10/10/22 21:41 Dose: 300 mg Documented By: KARRIE Heparin Sodium (Porcine) (Heparin Sodium,Porcine 5,000 Unit/Ml Vial) 5,000 unit SUBCUT Q12H [facility] Last Admin: 10/11/22 05:27 Dose: 5,000 unit Documented By: KARRIE Hydralazine HCl (Hydralazine Hcl 50 Mg Tablet) 50 mg PO BID [facility]; Protocol Last Admin: 10/11/22 09:05 Dose: 50 mg Documented By: LAURA Insulin Glargine (Insulin Glargine,Hum.Rec.Anlog 100 Unit/Ml 10 Ml Vial) 27 unit SUBCUT DAILY [facility] Last Admin: 10/11/22 09:04 Dose: 27 unit Documented By: LAURA Latanoprost (Latanoprost 0.005 % Ophth Shahla 2.5 Ml Drops) 1 drop EYE-BOTH BEDTIME [facility] Last Admin: 10/10/22 21:41 Dose: 1 drop Documented By: KARRIE Loratadine (Loratadine 10 Mg Tablet) 10 mg PO DAILY PRN PRN Reason: allergies Montelukast Sodium (Montelukast Sodium 10 Mg Tablet) 10 mg PO BEDTIME [facility] Last Admin: 10/10/22 21:41 Dose: 10 mg Documented By: KARRIE Omeprazole (Omeprazole 20 Mg Capsule.Dr) 20 mg PO DAILY@0630 [facility] Last Admin: 10/11/22 05:27 Dose: 20 mg Documented By: KARRIE Ondansetron HCl (Ondansetron Hcl 4 Mg/2 Ml Vial) 4 mg IVPUSH Q8H PRN PRN Reason: Nausea and Vomiting Oxycodone HCl (Oxycodone Hcl Immed Release 5 Mg Tablet) 5 mg PO Q6H PRN PRN Reason: Pain, Severe (Pain Scale 7-10) Pharmacy Consult (Consult Rx Perform Med Rec) 1 each MISCELLANE ONCE PRN PRN Reason: Consult order Polyethylene Glycol (Polyethylene Glycol 3350 17 Gm Powd.Pack) 17 gm PO DAILY PRN PRN Reason: Constipation Senna (Sennosides 8.6 Mg Tablet) 17.2 mg PO BEDTIME [facility] Last Admin: 10/10/22 21:42 Dose: 17.2 mg Documented By: KARRIE Simethicone (Simethicone 80 Mg Tab.Chew) 1 mg PO Q8H PRN PRN Reason: abdominal pain Sitagliptin Phosphate (Sitagliptin Phosphate 50 Mg Tablet) 50 mg PO DAILY [facility] Last Admin: 10/11/22 09:02 Dose: Not Given Documented By: LAURA Non-Admin Reason: Low blood glucose Sodium Chloride (0.9 % Sodium Chloride Flush 3 Ml Syringe) 3 ml IVFLUSH QSHIFT [facility] Last Admin: 10/11/22 09:06 Dose: 3 ml Documented By: LAURA Sucralfate (Sucralfate 1 Gm Tablet) 2 gm PO DAILY [facility] Last Admin: 10/11/22 09:05 Dose: 2 gm Documented By: LAURA Tiotropium [place] (Tiotropium [place] 18 Mcg Cap.W.Dev) 1 puff INHALE RDAILY [facility] Last Admin: 10/11/22 08:22 Dose: 1 puff Documented By: MANDI Labs 10/11/22 05:47 10/11/22 05:47 Labs: Laboratory Results - last 24 hr 10/10/22 10/10/22 10/10/22 13:16 13:16 13:16 MCV 71.9 L MCH 22.2 L MCHC 30.9 L RDW 17.6 H Plt Count 394 MPV 9.0 L Immature Gran % (Auto) 0.4 Neut % (Auto) 82.7 H Lymph % (Auto) 9.4 L [place] % (Auto) 5.1 Eos % (Auto) 1.8 Baso % (Auto) 0.6 Lymph # (Auto) 1.1 L [place] # (Auto) 0.6 Eos # (Auto) 0.2 Baso # (Auto) 0.1 Abs Immat Gran (auto) 0.05 H Absolute Neuts (auto) 9.8 H Absolute Nucleated RBC 0.000 Nucleated RBC % (auto) 0.0 PT 13.4 H INR 1.2 H APTT 35.6 Anion Gap 15 Estim Creat Clear Calc 46.5 Estimated GFR 50 POC Glucose Random Glucose 73 Calcium 9.3 Magnesium 2.2 Total Bilirubin 0.9 Direct Bilirubin 0.4 AST 17 ALT 12 Alkaline Phosphatase 141 H Troponin I High Sens B-Natriuretic Peptide Total Protein 7.1 Albumin 3.7 Procalcitonin Urine Color Urine Appearance Urine pH Ur Specific [place] Urine Protein Urine Glucose (UA) Urine Ketones Urine Blood Urine Nitrite Ur Leukocyte Esterase Urine RBC Urine WBC Ur Squamous Epith Cells Urine Bacteria Hyaline Casts Influenza Type A (PCR) Influenza Type B (PCR) RSV RNA Qual (PCR) SARS-CoV-2 RNA (RT-PCR) 10/10/22 10/10/22 10/10/22 13:16 13:16 13:16 MCV MCH MCHC RDW Plt Count MPV Immature Gran % (Auto) Neut % (Auto) Lymph % (Auto) [place] % (Auto) Eos % (Auto) Baso % (Auto) Lymph # (Auto) [place] # (Auto) Eos # (Auto) Baso # (Auto) Abs Immat Gran (auto) Absolute Neuts (auto) Absolute Nucleated RBC Nucleated RBC % (auto) PT INR APTT Anion Gap Estim Creat Clear Calc Estimated GFR POC Glucose Random Glucose Calcium Magnesium Total Bilirubin Direct Bilirubin AST ALT Alkaline Phosphatase Troponin I High Sens 30.2 H D B-Natriuretic Peptide 758 H Total Protein Albumin Procalcitonin Urine Color Urine Appearance Urine pH Ur Specific [place] Urine Protein Urine Glucose (UA) Urine Ketones Urine Blood Urine Nitrite Ur Leukocyte Esterase Urine RBC Urine WBC Ur Squamous Epith Cells Urine Bacteria Hyaline Casts Influenza Type A (PCR) NEGATIVE Influenza Type B (PCR) NEGATIVE RSV RNA Qual (PCR) NEGATIVE SARS-CoV-2 RNA (RT-PCR) NEGATIVE 10/10/22 10/10/22 10/10/22 13:16 16:29 18:39 MCV MCH MCHC RDW Plt Count MPV Immature Gran % (Auto) Neut % (Auto) Lymph % (Auto) [place] % (Auto) Eos % (Auto) Baso % (Auto) Lymph # (Auto) [place] # (Auto) Eos # (Auto) Baso # (Auto) Abs Immat Gran (auto) Absolute Neuts (auto) Absolute Nucleated RBC Nucleated RBC % (auto) PT INR APTT Anion Gap Estim Creat Clear Calc Estimated GFR POC Glucose 99 Random Glucose Calcium Magnesium Total Bilirubin Direct Bilirubin AST ALT Alkaline Phosphatase Troponin I High Sens B-Natriuretic Peptide Total Protein Albumin Procalcitonin 0.02 Urine Color Yellow Urine Appearance Clear Urine pH 6.5 Ur Specific [place] <= 1.005 Urine Protein 100 (2+) H Urine Glucose (UA) Negative Urine Ketones Negative Urine Blood Negative Urine Nitrite Negative Ur Leukocyte Esterase Negative Urine RBC 0-2 Urine WBC 0-5 Ur Squamous Epith Cells 0-2 Urine Bacteria None Seen Hyaline Casts 3-5 Influenza Type A (PCR) Influenza Type B (PCR) RSV RNA Qual (PCR) SARS-CoV-2 RNA (RT-PCR) 10/10/22 10/11/22 10/11/22 21:43 05:47 05:47 MCV 73.4 L MCH 22.1 L MCHC 30.1 L RDW 18.1 H Plt Count 379 MPV 9.3 L Immature Gran % (Auto) 0.4 Neut % (Auto) 80.8 H Lymph % (Auto) 11.3 L [place] % (Auto) 5.7 Eos % (Auto) 1.2 Baso % (Auto) 0.6 Lymph # (Auto) 1.2 [place] # (Auto) 0.6 Eos # (Auto) 0.1 Baso # (Auto) 0.1 Abs Immat Gran (auto) 0.04 H Absolute Neuts (auto) 8.5 H Absolute Nucleated RBC 0.000 Nucleated RBC % (auto) 0.0 PT INR APTT Anion Gap 15 Estim Creat Clear Calc 39.3 Estimated GFR 42 POC Glucose 116 H Random Glucose 60 Calcium 9.5 Magnesium Total Bilirubin Direct Bilirubin AST ALT Alkaline Phosphatase Troponin I High Sens B-Natriuretic Peptide Total Protein Albumin Procalcitonin Urine Color Urine Appearance Urine pH Ur Specific [place] Urine Protein Urine Glucose (UA) Urine Ketones Urine Blood Urine Nitrite Ur Leukocyte Esterase Urine RBC Urine WBC Ur Squamous Epith Cells Urine Bacteria Hyaline Casts Influenza Type A (PCR) Influenza Type B (PCR) RSV RNA Qual (PCR) SARS-CoV-2 RNA (RT-PCR) 10/11/22 05:47 MCV MCH MCHC RDW Plt Count MPV Immature Gran % (Auto) Neut % (Auto) Lymph % (Auto) [place] % (Auto) Eos % (Auto) Baso % (Auto) Lymph # (Auto) [place] # (Auto) Eos # (Auto) Baso # (Auto) Abs Immat Gran (auto) Absolute Neuts (auto) Absolute Nucleated RBC Nucleated RBC % (auto) PT INR APTT Anion Gap Estim Creat Clear Calc Estimated GFR POC Glucose Random Glucose Calcium Magnesium Total Bilirubin Direct Bilirubin AST ALT Alkaline Phosphatase Troponin I High Sens B-Natriuretic Peptide 614 H Total Protein Albumin Procalcitonin Urine Color Urine Appearance Urine pH Ur Specific [place] Urine Protein Urine Glucose (UA) Urine Ketones Urine Blood Urine Nitrite Ur Leukocyte Esterase Urine RBC Urine WBC Ur Squamous Epith Cells Urine Bacteria Hyaline Casts Influenza Type A (PCR) Influenza Type B (PCR) RSV RNA Qual (PCR) SARS-CoV-2 RNA (RT-PCR) Assessment and Plan Plan 77 year old women admitted with acute on chronic heart failure HFpEF with hx of severe aortic [place] [facility] [place] plan for o/p AVR, valve area 0.5 BNP trending down Lasix IV BID monitor on telemetry cardiology following Throat pain strep swab Acute on chronic back pain kpads oxycodone for pain DM2 ss, ada diet CKD 3A stable Hypertension continue home medications CAD multivessel disease asa, statin DVT prophylaxis with heparin Attending Dr. Juarez Full code continued hospitalization for tx of acute CHF exacerbation Time Spent With Patient Time: Total time managing care of this patient today ____ minutes. Quality VTE VTE Risk Level:: Medical - moderate - high VTE Device Contraindication: Treatment Not Indicated VTE Drug Contraindication: N/A - Med Ordered
--- NOTE | 2022-10-11 11:39 | PM.DS ---
DS: Providers Provider Date of Service: 10/11/22 Date of admission: 10/10/22 16:02 Primary care physician: Unknown Physician Consults: 10/10/22 16:06 Consult to Cardiology Routine Consulting Provider: Johnnie Lee Reason for consultation: CHF , severe as Has provider been notified: No Attending physician on discharge: [facility] Discharging clinician: Myrna Bean DS: Diagnosis Discharge Diagnosis (1) Acute on chronic diastolic (congestive) heart failure: Status: Acute DS: Summary Hospital Course Hospital Course: 77-year-old female presenting from home via EMS with worsening SOB for the last 3 days along with nontraumtic upper back pain. She states she has been using her O2 more lately. She is more SOB in the mornings when she wakes up and when she exerts herself in any way.? She has been sleeping with her 2L NC and 2 pillows. She has been compliant with her diuretics and her weight has gone up and down. She denies any chest pains. No notable increase in her LE swelling.?She also has hx of severe and is following with [facility] cardiology She underwent cardiology catheterization in July 2022 and has been awaiting o/p AVR.? She? denies chest pain, nausea, vomiting, diarrhea, fever, chills, recent illness, sick contacts. ? States compliance with all of her Medicaid. BNP 758, chest x-ray showing increased moderate right and left pleural effusions with increased bibasilar airspace opacities reflecting atelectasis, infection and/or edema.? Stable blood pressure.? All other labs are within acceptable limits.? Patient received a dose of IV Lasix, Tylenol and Maalox in the ER.? She will be admitted for further management and treatment of acute on chronic hypoxic respiratory failure secondary to acute on chronic congestive heart failure. HFpEF with hx of severe aortic stenosis valve 0.5 Follow at [facility] for BNP trending down continue Lasix IV BID monitor on telemetry cardiology following rec tx to [facility] for further management of her severe Throat pain strep swab pending Acute on chronic back pain kpads oxycodone for pain DM2 ss, ada diet CKD 3A stable Hypertension continue home medications CAD asa, statin Time Spent with Patient Time attestation: Total time managing care of this patient today ____ minutes. Discharge coordination time: Greater than 30 minutes Quality: Safe Use of Opioids Does Pt have an Active Cancer Diagnosis on the Problem List?: No Quality: Stroke Does the patient have a stroke diagnosis?: No Physical Exam Vital Signs: Vital Signs: Last Vital Signs Temp 97.2 F 10/11/22 07:45 Pulse 68 10/11/22 08:25 Resp 18 10/11/22 08:25 BP 153/67 H 10/11/22 07:45 Pulse Ox 97 10/11/22 07:45 O2 Del Method 10/11/22 07:45 O2 Flow Rate 2.0 10/11/22 07:45 BMI result Body Mass Index 41.6 Appearing in no acute distress head is normocephalic atraumatic eyes pupils are PERRLA sclera is anicteric mouth throat mucous membranes are intact and moist neck is supple no lymphadenopathy, no JVD noted lung sounds are clear to auscultation heart regular rate rhythm positive bowel sounds, abdomen is soft, nontender neuro patient is alert x3, no focal deficits DS: Data Data Completed and Pending Completed studies during hospitalization [Text1]: Procedures Excision of Descending Colon, Via Natural or Artificial Opening Endoscopic, Diagnostic (02/20/21) Excision of Duodenum, Via Natural or Artificial Opening Endoscopic, Diagnostic (02/20/21) Excision of Stomach, Pylorus, Via Natural or Artificial Opening Endoscopic, Diagnostic (02/20/21) Excision of Transverse Colon, Via Natural or Artificial Opening Endoscopic, Diagnostic (02/20/21) Insertion of Infusion Device into Superior Vena Cava, Percutaneous Approach (01/17/21) Introduction of Remdesivir Anti-infective into Peripheral Vein, Percutaneous Approach, [employer] (01/17/21) Performance of Urinary Filtration, Intermittent, Less than 6 Hours Per Day (01/17/21) Transfusion of Nonautologous Red Blood Cells into Peripheral Vein, Percutaneous Approach (02/20/21) Labs on day of discharge: Laboratory Results - last 24 hr 10/10/22 10/10/22 10/10/22 13:16 13:16 13:16 WBC 11.8 H RBC 4.73 Hgb 10.5 L Hct 34.0 L MCV 71.9 L MCH 22.2 L MCHC 30.9 L RDW 17.6 H Plt Count 394 MPV 9.0 L Immature Gran % (Auto) 0.4 Neut % (Auto) 82.7 H Lymph % (Auto) 9.4 L [place] % (Auto) 5.1 Eos % (Auto) 1.8 Baso % (Auto) 0.6 Lymph # (Auto) 1.1 L [place] # (Auto) 0.6 Eos # (Auto) 0.2 Baso # (Auto) 0.1 Abs Immat Gran (auto) 0.05 H Absolute Neuts (auto) 9.8 H Absolute Nucleated RBC 0.000 Nucleated RBC % (auto) 0.0 PT 13.4 H INR 1.2 H APTT 35.6 Sodium 143 Potassium 3.8 Chloride 106 Carbon Dioxide 26 Anion Gap 15 BUN 20 H Creatinine 1.07 Estim Creat Clear Calc 46.5 Estimated GFR 50 POC Glucose Random Glucose 73 Calcium 9.3 Magnesium 2.2 Total Bilirubin 0.9 Direct Bilirubin 0.4 AST 17 ALT 12 Alkaline Phosphatase 141 H Troponin I High Sens B-Natriuretic Peptide Total Protein 7.1 Albumin 3.7 Procalcitonin Urine Color Urine Appearance Urine pH Ur Specific [place] Urine Protein Urine Glucose (UA) Urine Ketones Urine Blood Urine Nitrite Ur Leukocyte Esterase Urine RBC Urine WBC Ur Squamous Epith Cells Urine Bacteria Hyaline Casts Influenza Type A (PCR) Influenza Type B (PCR) RSV RNA Qual (PCR) SARS-CoV-2 RNA (RT-PCR) 10/10/22 10/10/22 10/10/22 13:16 13:16 13:16 WBC RBC Hgb Hct MCV MCH MCHC RDW Plt Count MPV Immature Gran % (Auto) Neut % (Auto) Lymph % (Auto) [place] % (Auto) Eos % (Auto) Baso % (Auto) Lymph # (Auto) [place] # (Auto) Eos # (Auto) Baso # (Auto) Abs Immat Gran (auto) Absolute Neuts (auto) Absolute Nucleated RBC Nucleated RBC % (auto) PT INR APTT Sodium Potassium Chloride Carbon Dioxide Anion Gap BUN Creatinine Estim Creat Clear Calc Estimated GFR POC Glucose Random Glucose Calcium Magnesium Total Bilirubin Direct Bilirubin AST ALT Alkaline Phosphatase Troponin I High Sens 30.2 H D B-Natriuretic Peptide 758 H Total Protein Albumin Procalcitonin Urine Color Urine Appearance Urine pH Ur Specific [place] Urine Protein Urine Glucose (UA) Urine Ketones Urine Blood Urine Nitrite Ur Leukocyte Esterase Urine RBC Urine WBC Ur Squamous Epith Cells Urine Bacteria Hyaline Casts Influenza Type A (PCR) NEGATIVE Influenza Type B (PCR) NEGATIVE RSV RNA Qual (PCR) NEGATIVE SARS-CoV-2 RNA (RT-PCR) NEGATIVE 10/10/22 10/10/22 10/10/22 13:16 16:29 18:39 WBC RBC Hgb Hct MCV MCH MCHC RDW Plt Count MPV Immature Gran % (Auto) Neut % (Auto) Lymph % (Auto) [place] % (Auto) Eos % (Auto) Baso % (Auto) Lymph # (Auto) [place] # (Auto) Eos # (Auto) Baso # (Auto) Abs Immat Gran (auto) Absolute Neuts (auto) Absolute Nucleated RBC Nucleated RBC % (auto) PT INR APTT Sodium Potassium Chloride Carbon Dioxide Anion Gap BUN Creatinine Estim Creat Clear Calc Estimated GFR POC Glucose 99 Random Glucose Calcium Magnesium Total Bilirubin Direct Bilirubin AST ALT Alkaline Phosphatase Troponin I High Sens B-Natriuretic Peptide Total Protein Albumin Procalcitonin 0.02 Urine Color Yellow Urine Appearance Clear Urine pH 6.5 Ur Specific [place] <= 1.005 Urine Protein 100 (2+) H Urine Glucose (UA) Negative Urine Ketones Negative Urine Blood Negative Urine Nitrite Negative Ur Leukocyte Esterase Negative Urine RBC 0-2 Urine WBC 0-5 Ur Squamous Epith Cells 0-2 Urine Bacteria None Seen Hyaline Casts 3-5 Influenza Type A (PCR) Influenza Type B (PCR) RSV RNA Qual (PCR) SARS-CoV-2 RNA (RT-PCR) 10/10/22 10/11/22 10/11/22 21:43 05:47 05:47 WBC 10.5 RBC 4.44 Hgb 9.8 L Hct 32.6 L MCV 73.4 L MCH 22.1 L MCHC 30.1 L RDW 18.1 H Plt Count 379 MPV 9.3 L Immature Gran % (Auto) 0.4 Neut % (Auto) 80.8 H Lymph % (Auto) 11.3 L [place] % (Auto) 5.7 Eos % (Auto) 1.2 Baso % (Auto) 0.6 Lymph # (Auto) 1.2 [place] # (Auto) 0.6 Eos # (Auto) 0.1 Baso # (Auto) 0.1 Abs Immat Gran (auto) 0.04 H Absolute Neuts (auto) 8.5 H Absolute Nucleated RBC 0.000 Nucleated RBC % (auto) 0.0 PT INR APTT Sodium 146 H Potassium 3.8 Chloride 105 Carbon Dioxide 30 H Anion Gap 15 BUN 22 H Creatinine 1.25 Estim Creat Clear Calc 39.3 Estimated GFR 42 POC Glucose 116 H Random Glucose 60 Calcium 9.5 Magnesium Total Bilirubin Direct Bilirubin AST ALT Alkaline Phosphatase Troponin I High Sens B-Natriuretic Peptide Total Protein Albumin Procalcitonin Urine Color Urine Appearance Urine pH Ur Specific [place] Urine Protein Urine Glucose (UA) Urine Ketones Urine Blood Urine Nitrite Ur Leukocyte Esterase Urine RBC Urine WBC Ur Squamous Epith Cells Urine Bacteria Hyaline Casts Influenza Type A (PCR) Influenza Type B (PCR) RSV RNA Qual (PCR) SARS-CoV-2 RNA (RT-PCR) 10/11/22 05:47 WBC RBC Hgb Hct MCV MCH MCHC RDW Plt Count MPV Immature Gran % (Auto) Neut % (Auto) Lymph % (Auto) [place] % (Auto) Eos % (Auto) Baso % (Auto) Lymph # (Auto) [place] # (Auto) Eos # (Auto) Baso # (Auto) Abs Immat Gran (auto) Absolute Neuts (auto) Absolute Nucleated RBC Nucleated RBC % (auto) PT INR APTT Sodium Potassium Chloride Carbon Dioxide Anion Gap BUN Creatinine Estim Creat Clear Calc Estimated GFR POC Glucose Random Glucose Calcium Magnesium Total Bilirubin Direct Bilirubin AST ALT Alkaline Phosphatase Troponin I High Sens B-Natriuretic Peptide 614 H Total Protein Albumin Procalcitonin Urine Color Urine Appearance Urine pH Ur Specific [place] Urine Protein Urine Glucose (UA) Urine Ketones Urine Blood Urine Nitrite Ur Leukocyte Esterase Urine RBC Urine WBC Ur Squamous Epith Cells Urine Bacteria Hyaline Casts Influenza Type A (PCR) Influenza Type B (PCR) RSV RNA Qual (PCR) SARS-CoV-2 RNA (RT-PCR) Discharge Plan Discharge Anticipated Discharge Date/Time: 10/11/22 11:30 Patient Disposition: Xfer Acute Care Hospital Discharge Diagnosis: HFpEF, acute exacerbation Referrals: Physician,Unknown J [Primary Care Provider] - 1 Week Discharge Medications: New furosemide 10 mg/mL Solution 20 mg IVPUSH BID@0900,1800 Qty: 40 0RF Protocol: Hold for SBP< HOLD for SBP < : 90 Continued (DME) lancets [FreeStyle Lancets] 28 gauge misc See Rx Instructions .MEDSUPPLY Qty: 300 2RF Rx Instructions: 3 times a day (DME) FreeStyle Lite Strips Strip See Rx Instructions .MEDSUPPLY Qty: 300 3RF Rx Instructions: 3times a day (DME) pen needle, diabetic [BD Sia 2nd Gen Pen Needle] 32 gauge x 5/32 needle See Rx Instructions .MEDSUPPLY Qty: 400 4RF Rx Instructions: 5 times a day atorvastatin 40 mg Tablet 40 mg PO BEDTIME carvedilol 25 mg Tablet 25 mg PO BID montelukast 10 mg Tablet 10 mg PO BEDTIME gabapentin 300 mg Capsule 300 mg PO BEDTIME amlodipine 10 mg tablet 10 mg PO DAILY Qty: 30 0RF cetirizine 5 mg tablet 1 tab PO DAILY PRN (Reason: allergies) ergocalciferol (vitamin D2) 1,250 mcg (50,000 unit) capsule 1 cap PO [place]@0900 hydralazine 50 mg tablet 50 mg PO BID sucralfate 1 gram tablet 2 tab PO DAILY simethicone [Gas Relief Extra Strength] 125 mg capsule 1 tab PO Q8H PRN (Reason: abdominal pain) esomeprazole magnesium 40 mg capsule,delayed release(DR/EC) 1 cap PO DAILY@0630 insulin aspart U-100 [Novolog FlexPen U-100 Insulin] 100 unit/mL (3 mL) insulin pen See Protocol subcut TIDAC Protocol: Insulin Correction Scale Less than or equal to 110 ---- Give (units): 0 111 to 150 Give (units): 0 151 to 200 Give (units): 2 201 to 250 Give (units): 4 251 to 300 Give (units): 6 301 to 350 Give (units): 8 Greater than 350 Give (units): 10 Call MD if Blood Glucose > : 350 Trelegy Ellipta 200-62.5-25 mcg blister with device 1 puff inhalation DAILY polyethylene glycol 3350 [Miralax] 17 gram/dose powder 17 g PO DAILY PRN (Reason: Constipation) Tradjenta 5 mg tablet 5 mg PO DAILY Ele Kramer U-300 Insulin 300 unit/mL (1.5 mL) insulin pen 34 unit subcut DAILY Creon 24,000-76,000 -120,000 unit capsule,delayed release(DR/EC) 1 cap PO QIDWMHS cyanocobalamin (vitamin B-12) 1,000 mcg tablet 1,000 mcg PO DAILY brimonidine 0.2 % drops 1 drp ophthalmic (eye) BID latanoprost 0.005 % drops 1 drp ophthalmic (eye) BEDTIME albuterol sulfate [Ventolin HFA] 90 mcg/actuation HFA aerosol inhaler 2 puff PO Q4-6H PRN (Reason: dyspnea) folic acid 1 mg tablet 1 mg PO DAILY aspirin 81 mg tablet,delayed release (DR/EC) 81 mg PO BEDTIME fluticasone propionate 50 mcg/actuation spray,suspension 1 spray intranasal DAILY (DME) blood-glucose meter [FreeStyle [place] Lite] Kit See Rx Instructions .ROUTE .MEDSUPPLY Qty: 1 Rx Instructions: As directed furosemide [Lasix] 40 mg tablet 40 mg PO DAILY 3 Days Qty: 3 0RF bisacodyl [Dulcolax (bisacodyl)] 5 mg tablet,delayed release (DR/EC) 10 mg PO BEDTIME Qty: 180 4RF sennosides [Senokot] 8.6 mg tablet 17.2 mg PO BEDTIME Qty: 180 3RF Discharge Orders: Discharge Order (Routine); Ordered 10/11/22 Ordered By: Myrna Bean Diet: Advance to usual diet Activity on Discharge: As tolerated Stand Alone Forms: Patient Portal Discharge page Care Plan Goals: transfer to [facility] Concerns: HFpEF, acute exacerbation Plan of Treatment: Transfer to tertiary facility for further workup of severe aortic stenosis and heart failure Assessment: see discharge summary
[2022-10-11 12:00] VITALS: BP 151/70; PULSE 55; RESP 18; TEMP 36.6; O2SAT 96
[2022-10-11 12:43] LABS: Glucose, Whole Blood 170 mg/dL (60-115)
== END 2022-10-11 15:24 | disposition short-term general hospital (02) | DRG 291 ==
LOC: HO.ED 14:06 → HO.EDOVER 16:33 → HO.IMC 17:22
PROVIDERS: Physician Assistant; Admitting Provider Nurse Practitioner Acute Care; Emergency Provider Emergency Medicine Emergency Medical Services; PCP Internal Medicine; Visit Provider Nurse Practitioner Acute Care
DX: I13.0 Hypertensive heart and chronic kidney disease with heart failure and stage 1 through stage 4 chronic kidney disease, or unspecified chronic kidney disease (principal); I50.33 Acute on chronic diastolic (congestive) heart failure; Z68.41 Body mass index [BMI] 40.0-44.9, adult; E66.01 Morbid (severe) obesity due to excess calories; E11.42 Type 2 diabetes mellitus with diabetic polyneuropathy; G47.33 Obstructive sleep apnea (adult) (pediatric); E78.5 Hyperlipidemia, unspecified; G89.29 Other chronic pain; E11.22 Type 2 diabetes mellitus with diabetic chronic kidney disease; I35.0 Nonrheumatic aortic (valve) stenosis; N18.31 Chronic kidney disease, stage 3a; M54.9 Dorsalgia, unspecified; Z20.822 Contact with and (suspected) exposure to COVID-19; Z87.891 Personal history of nicotine dependence; Z99.81 Dependence on supplemental oxygen; Z88.5 Allergy status to narcotic agent; Z88.6 Allergy status to analgesic agent; Z79.4 Long term (current) use of insulin; Z79.51 Long term (current) use of inhaled steroids; Z79.82 Long term (current) use of aspirin; Z79.899 Other long term (current) drug therapy
CPT/HCPCS: 0241U; 36415; 71045; 80048; 80076; 81001; 82947; 83735; 83880; 84145; 84484; 85025; 85610; 85730; 93005; 96374; 99285; J1643; J1940

== ENCOUNTER 2022-11-13 11:17 | Outpatient (REF) | payer OTHER, SELFPAY ==
[2022-11-13 11:31] LABS: MANUAL DIFF FLAG NO
[2022-11-13 12:52] LABS: Basophils Absolute Auto 0.1 X10*3/uL (0.0-0.2); Basophils Percent Auto 0.6 % (0-2); Eosinophils Absolute Auto 0.3 X10*3/uL (0.0-0.4); Eosinophils Percent Auto 2.5 % (0-4); Hematocrit 38.1 % (37.0-47.0); Hemoglobin 11.7 g/dl (12.0-16.0); Imm Gran Abs Auto 0.05 X10*3/uL (0.00-0.03); Imm Gran Pct Auto 0.5 % (0.0-0.4); Lymphocytes Percent Auto 18.6 % (20-40); Mean Corpuscular HGB Conc 30.7 g/dl (31.0-35.0); Mean Corpuscular Hemoglobin 22.2 pg (27.0-33.0); Mean Corpuscular Volume 72.4 fL (80.0-98.0); Mean Platelet Volume 9.7 fL (9.4-12.3); Monocytes Absolute Auto 0.8 X10*3/uL (0.1-1.2); Monocytes Percent Auto 7.1 % (2-11); Neutrophils Absolute Auto 7.6 x10*3/uL (2.0-8.3); Neutrophils Percent Auto 70.7 % (45-73); Platelet Count 370 X10*3/uL (160-400); Red Blood Count 5.26 X10*6/uL (4.20-5.50); Red Cell Distribution Width 18.6 % (11.0-16.0); White Blood Count 10.8 X10*3/uL (4.8-10.8)
== END 2022-11-13 11:18 | disposition home or self-care (01) ==
LOC: HO.LAB 11:17
PROVIDERS: PCP Internal Medicine; Visit Provider Nurse Practitioner Family
DX: Z13.0 Encounter for screening for diseases of the blood and blood-forming organs and certain disorders involving the immune mechanism (principal); J45.40 Moderate persistent asthma, uncomplicated; G47.33 Obstructive sleep apnea (adult) (pediatric)
CPT/HCPCS: 36415; 85025; 99212

== ENCOUNTER 2022-11-19 08:38 | Outpatient (REF) | payer OTHER, SELFPAY ==
--- NOTE | ~2022-11-19 | CT_ITS ---
EXAMINATION: CT HEAD WITHOUT CONTRAST CLINICAL INFORMATION: Headache COMPARISON: Previous head CT most recent May 2022 TECHNIQUE: Contiguous axial imaging was performed from the skull base to vertex without intravenous administration of contrast. This CT examination was performed using dose optimization techniques as appropriate, variously including the following: *Automated exposure control *Adjustment of mA and/or kV according to patient size (this includes techniques or standardized protocols for targeted exams where dose is matched to indication/reason for exam; i.e. extremities or head) *Use of iterative reconstruction technique DLP: 726 mGy-cm FINDINGS: There is no evidence of an extra-axial collection. There is no evidence of intra or extra-axial hemorrhage. The ventricles and extra-axial CSF spaces are appropriate. Lopez-white matter differentiation is normal. No mass, mass effect or infarct. No skull fracture. Visualized paranasal sinuses, mastoid air cells and middle ears are clear. CT/CT head/brain wo IV con IMPRESSION: Unremarkable exam.
== END 2022-11-19 08:39 | disposition home or self-care (01) ==
LOC: HO.CT 08:38
PROVIDERS: Visit Provider Emergency Medicine
DX: G44.89 Other headache syndrome (principal)
CPT/HCPCS: 70450

== ENCOUNTER 2022-12-07 15:26 | Outpatient (REF) | payer OTHER, SELFPAY ==
[2022-12-07 15:45] LABS: MANUAL DIFF FLAG NO
[2022-12-07 16:31] LABS: Basophils Absolute Auto 0.1 X10*3/uL (0.0-0.2); Basophils Percent Auto 0.7 % (0-2); Eosinophils Absolute Auto 0.2 X10*3/uL (0.0-0.4); Eosinophils Percent Auto 2.3 % (0-4); Hematocrit 39.9 % (37.0-47.0); Hemoglobin 12.4 g/dl (12.0-16.0); Imm Gran Abs Auto 0.03 X10*3/uL (0.00-0.03); Imm Gran Pct Auto 0.3 % (0.0-0.4); Lymphocytes Absolute Auto 2.4 X10*3/uL (1.2-4.9); Lymphocytes Percent Auto 23.1 % (20-40); Mean Corpuscular HGB Conc 31.1 g/dl (31.0-35.0); Mean Corpuscular Volume 70.7 fL (80.0-98.0); Mean Platelet Volume 9.4 fL (9.4-12.3); Monocytes Absolute Auto 0.7 X10*3/uL (0.1-1.2); Neutrophils Percent Auto 66.6 % (45-73); Platelet Count 383 X10*3/uL (160-400); Red Blood Count 5.64 X10*6/uL (4.20-5.50); Red Cell Distribution Width 18.5 % (11.0-16.0); White Blood Count 10.6 X10*3/uL (4.8-10.8)
[2022-12-07 16:37] LABS: Appearance Urine Clear; Color Urine Yellow; Glucose Urine UA >=1000 mg/dL (Negative); Leukocyte Esterase Urine Negative (Negative); Nitrite Urine Negative (Negative); PH 5.5 (5.0-9.0); UMIC TRIGGER UA YES; Urine Blood Negative (Negative); Urine Ketones Negative (Negative); Urine Protein 100 (2+) mg/dL (Neg-Trace)
[2022-12-07 16:43] LABS: Bacteria Urine None Seen (None Seen); Hyaline Casts Urine 0-2 /LPF (0-2); RBC Urine 0-2 /HPF (0-2); Squamous Epithelial Cell Urine 0-2 /HPF (0-2); WBC Urine 0-5 /HPF (0-5)
[2022-12-07 17:06] LABS: Albumin Level 3.3 g/dL (3.5-5.0); Anion Gap 14 (12-20); Blood Urea Nitrogen 26 mg/dL (9-16); Calcium 8.9 mg/dL (8.4-10.2); Carbon Dioxide 28 mmol/L (22-29); Chloride 103 mmol/L (96-108); Estimated Glomerular Filt Rate 39; Magnesium 2.2 mg/dL (1.6-2.6); Phosphorus 4.5 mg/dL (2.7-4.5); Potassium 4.3 mmol/L (3.3-5.1); Sodium 141 mmol/L (135-145)
[2022-12-07 17:20] LABS: Creatinine Urine 24.72 mg/dL; Protein/Creatinine Ratio, Ur 3.03 (<0.2); Total Protein Urine Random 75 mg/dL (<12)
[2022-12-07 17:23] LABS: Vitamin D 25-OH Total 35.8 ng/mL (>30)
[2022-12-07 17:24] LABS: Microalbum/Creatinine Ratio Ur 2204.6 ug/mg cr
[2022-12-08 11:49] LABS: Calcium (PTHI) 9.4 mg/dL (8.6-10.4); PTHI 109 pg/mL (16-77)
== END 2022-12-07 15:27 | disposition home or self-care (01) ==
LOC: HO.LAB 15:26
PROVIDERS: Visit Provider Internal Medicine Nephrology
DX: Z13.89 Encounter for screening for other disorder (principal)
CPT/HCPCS: 36415; 80051; 81001; 82040; 82043; 82306; 82310; 82565; 83735; 83970; 84100; 84156; 84520; 85025; 87086

== ENCOUNTER 2022-12-14 13:08 | Outpatient (REF) | payer OTHER, SELFPAY ==
[2022-12-14 15:34] LABS: Alanine Aminotransferase 12 U/L (0-31); Albumin Level 3.4 g/dL (3.5-5.0); Alkaline Phosphatase 165 U/L (39-117); Aspartate Amino Transferase 14 U/L (5-31); Bilirubin Direct 0.2 mg/dL (0.0-0.5); Bilirubin Total 0.5 mg/dL (0.0-1.0); Lipase 40 U/L (8-78)
== END 2022-12-14 13:09 | disposition home or self-care (01) ==
LOC: HO.LAB 13:08
PROVIDERS: PCP Internal Medicine; Visit Provider Nurse Practitioner Family
DX: K20.90 Esophagitis, unspecified without bleeding (principal); R13.19 Other dysphagia; R10.11 Right upper quadrant pain; K21.9 Gastro-esophageal reflux disease without esophagitis; K86.81 Exocrine pancreatic insufficiency; Z91.09 Other allergy status, other than to drugs and biological substances
CPT/HCPCS: 36415; 80076; 83690; 86003; 99212

== ENCOUNTER 2022-12-24 14:35 | Outpatient (REF) | payer OTHER, SELFPAY | END 2022-12-24 14:36 | disposition home or self-care (01) | LOC: HO.MRI 14:35 | PROVIDERS: PCP Internal Medicine; Visit Provider Nurse Practitioner Family | DX: Z13.89 Encounter for screening for other disorder (principal) ==

== ENCOUNTER 2022-12-30 11:38 | Outpatient (REF) | payer OTHER, SELFPAY ==
[2022-12-31 09:16] LABS: BV Int Neg Control Negative (Negative); BV Int Pos Control Positive (Positive)
== END 2022-12-30 11:39 | disposition home or self-care (01) ==
LOC: HO.LAB 11:38
PROVIDERS: PCP Internal Medicine; Visit Provider Advanced Practice Midwife
DX: N90.89 Other specified noninflammatory disorders of vulva and perineum (principal); N89.8 Other specified noninflammatory disorders of vagina
CPT/HCPCS: 87480; 87510; 87660; 99212

== ENCOUNTER 2023-01-07 08:52 | Outpatient (REF) | payer OTHER, SELFPAY ==
--- NOTE | ~2023-01-07 | MR_ITS ---
EXAMINATION: MRI ABDOMEN WITH AND WITHOUT CONTRAST CLINICAL INFORMATION: N28.1 - Cyst of kidney, acquired COMPARISON: 07/01/2022 TECHNIQUE: Multiple routine MRI sequences through the abdomen were obtained on a high-field 1.5Tesla MRI. Pre-and postcontrast images with 9 mL of Gadavist intravenous contrast were obtained. This included a dynamic contrast-enhanced technique. Patient had difficulty holding her breath with resulting motion artifact on some sequences. FINDINGS: Lung bases: The visualized lung bases are unremarkable. Liver: The liver is normal in size, shape, and signal. No suspicious focal hepatic lesions seen. Specifically no suspicious arterial phase enhancing lesions or suspicious washout of contrast on later phases. No biliary ductal dilatation for postcholecystectomy patient of this age. Gallbladder: Presumably surgically absent Pancreas: Pancreas is homogeneous in signal. No pancreatic ductal dilatation or obstruction. No peripancreatic inflammatory changes or fluid. Spleen: Unremarkable Adrenals: Unremarkable Kidneys: Kidneys are normal in size, shape, and signal. In the posterior medial midpole of the right kidney there is a 2 cm precontrast T1 bright not significantly enhancing hemorrhagic cyst corresponding with the low-attenuation finding on the prior CT scan. There are a few additional tiny subcentimeter precontrast T1 bright nonenhancing cysts in the lateral upper pole and posterior upper pole of the right most conspicuous on the postcontrast images. A few tiny T2 bright nonenhancing subcentimeter cortical cysts are incidentally noted bilaterally within the kidneys. No suspicious renal mass lesion seen. No hydronephrosis or perinephric edema. Other: No bulky retroperitoneal adenopathy MR/MR abdomen wo/w con IMPRESSION: 2 cm precontrast T1 bright nonenhancing hemorrhagic cyst in the posterior medial midpole of the right kidney corresponding with the low-attenuation finding on the prior C scan. There are a few additional tiny subcentimeter precontrast T1 bright nonenhancing cysts in the kidneys bilaterally. No suspicious renal mass lesion.
== END 2023-01-07 08:53 | disposition home or self-care (01) ==
LOC: HO.MRI 08:52
PROVIDERS: PCP Internal Medicine; Visit Provider Nurse Practitioner Family
DX: N28.1 Cyst of kidney, acquired (principal)
CPT/HCPCS: 74183; A9585

== ENCOUNTER → 2023-01-08 14:02 | Outpatient (BNVA) | payer OTHER, SELFPAY | PROVIDERS: PCP Internal Medicine; Visit Provider Internal Medicine Endocrinology, Diabetes & Metabolism | DX: E11.22 Type 2 diabetes mellitus with diabetic chronic kidney disease (principal); N18.2 Chronic kidney disease, stage 2 (mild); E11.65 Type 2 diabetes mellitus with hyperglycemia; Z79.4 Long term (current) use of insulin | CPT/HCPCS: 82947; 99212 ==

== ENCOUNTER → 2023-01-25 12:43 | Outpatient (BNVA) | payer OTHER, SELFPAY | PROVIDERS: PCP Internal Medicine; Referring Provider Internal Medicine; Visit Provider Nurse Practitioner Family | DX: K86.81 Exocrine pancreatic insufficiency (principal); K21.9 Gastro-esophageal reflux disease without esophagitis; K59.01 Slow transit constipation; R13.19 Other dysphagia | CPT/HCPCS: 99212 ==

== ENCOUNTER 2023-02-03 09:02 | Outpatient (REF) | payer OTHER, SELFPAY ==
[2023-02-03 09:44] LABS: MANUAL DIFF FLAG NO
[2023-02-03 09:54] LABS: Basophils Absolute Auto 0.1 X10*3/uL (0.0-0.2); Basophils Percent Auto 0.6 % (0-2); Eosinophils Absolute Auto 0.3 X10*3/uL (0.0-0.4); Eosinophils Percent Auto 2.5 % (0-4); Hematocrit 38.3 % (37.0-47.0); Hemoglobin 11.9 g/dl (12.0-16.0); Imm Gran Abs Auto 0.04 X10*3/uL (0.00-0.03); Imm Gran Pct Auto 0.4 % (0.0-0.4); Lymphocytes Percent Auto 19.1 % (20-40); Mean Corpuscular HGB Conc 31.1 g/dl (31.0-35.0); Mean Corpuscular Hemoglobin 22.3 pg (27.0-33.0); Mean Corpuscular Volume 71.7 fL (80.0-98.0); Mean Platelet Volume 9.3 fL (9.4-12.3); Monocytes Absolute Auto 0.8 X10*3/uL (0.1-1.2); Neutrophils Absolute Auto 7.2 x10*3/uL (2.0-8.3); Neutrophils Percent Auto 69.4 % (45-73); Platelet Count 338 X10*3/uL (160-400); Red Blood Count 5.34 X10*6/uL (4.20-5.50); Red Cell Distribution Width 19.1 % (11.0-16.0); White Blood Count 10.4 X10*3/uL (4.8-10.8)
[2023-02-03 10:26] LABS: Albumin Level 3.3 g/dL (3.5-5.0); Anion Gap 13 (12-20); Blood Urea Nitrogen 29 mg/dL (9-16); Calcium 9.1 mg/dL (8.4-10.2); Carbon Dioxide 27 mmol/L (22-29); Chloride 107 mmol/L (96-108); Estimated Glomerular Filt Rate 31; Magnesium 2.4 mg/dL (1.6-2.6); Phosphorus 4.4 mg/dL (2.7-4.5); Potassium 4.1 mmol/L (3.3-5.1); Sodium 143 mmol/L (135-145)
[2023-02-03 10:30] LABS: Alanine Aminotransferase 11 U/L (0-31); Albumin Level 3.3 g/dL (3.5-5.0); Alkaline Phosphatase 142 U/L (39-117); Anion Gap 12 (12-20); Aspartate Amino Transferase 13 U/L (5-31); Bilirubin Total 0.5 mg/dL (0.0-1.0); Blood Urea Nitrogen 29 mg/dL (9-16); Carbon Dioxide 27 mmol/L (22-29); Chloride 107 mmol/L (96-108); Cholesterol 161 mg/dL; Estimated Glomerular Filt Rate 32; Glucose Fasting 167 mg/dL (60-99); HDL Cholesterol 41 mg/dL; Iron 33 mcg/dL (30-160); LDL Cholesterol Calculated 97 mg/dl; Percent Iron Saturation 14 % (15-50); Sodium 142 mmol/L (135-145); Total Iron Binding Capacity 244 mcg/dL (228-428); Total Protein 6.6 g/dL (6.5-8.0); Triglycerides 115 mg/dL; Unsaturated Iron Binding 211 ug/dL
[2023-02-03 10:35] LABS: Appearance Urine Cloudy; Color Urine Yellow; Glucose Urine UA >=1000 mg/dL (Negative); Leukocyte Esterase Urine Small (1+) (Negative); Nitrite Urine Negative (Negative); PH 5.5 (5.0-9.0); UMIC TRIGGER UA YES; Urine Blood Negative (Negative); Urine Ketones Negative (Negative); Urine Protein 300 (3+) mg/dL (Neg-Trace)
[2023-02-03 10:38] LABS: Bacteria Urine None Seen (None Seen); Hyaline Casts Urine 0-2 /LPF (0-2); RBC Urine 0-2 /HPF (0-2); WBC Urine >50 /HPF (0-5)
[2023-02-03 10:44] LABS: Vitamin D 25-OH Total 45.1 ng/mL (>30)
[2023-02-03 10:59] LABS: Folate 18.2 ng/mL (> or = 4.0); Vitamin B12 1049 pg/mL (200-900); Vitamin D 25-OH Total 41.4 ng/mL (>30)
[2023-02-03 11:21] LABS: Creatinine Urine 77.19 mg/dL
[2023-02-03 11:52] LABS: Microalbum/Creatinine Ratio Ur 2303.4 ug/mg cr
[2023-02-03 12:26] LABS: Protein/Creatinine Ratio, Ur 3.12 (<0.2); Total Protein Urine Random 241 mg/dL (<12)
[2023-02-04 12:04] LABS: NT-proBNP 737 pg/mL
[2023-02-05 12:29] LABS: Calcium (PTHI) 9.2 mg/dL (8.6-10.4); PTHI 82 pg/mL (16-77)
== END 2023-02-03 09:03 | disposition home or self-care (01) ==
LOC: HO.LAB 09:02
PROVIDERS: Absent Provider Internal Medicine; PCP Internal Medicine; Visit Provider Internal Medicine Nephrology
DX: I50.9 Heart failure, unspecified (principal); E53.8 Deficiency of other specified B group vitamins; E78.5 Hyperlipidemia, unspecified; E55.9 Vitamin D deficiency, unspecified; D64.9 Anemia, unspecified; E11.22 Type 2 diabetes mellitus with diabetic chronic kidney disease; N18.32 Chronic kidney disease, stage 3b; R82.90 Unspecified abnormal findings in urine
CPT/HCPCS: 36415; 80051; 80053; 80061; 81001; 82040; 82043; 82306; 82310; 82565; 82607; 82746; 83540; 83735; 83880; 83970; 84100; 84156; 84520; 85025; 87086; 87147

== ENCOUNTER 2023-02-12 09:53 | Outpatient (REF) | payer OTHER, SELFPAY ==
[2023-02-12 17:18] LABS: Urine Cytology See Pathology rpt
== END 2023-02-12 09:54 | disposition home or self-care (01) ==
LOC: HO.LNP 09:53
PROVIDERS: PCP Internal Medicine; Visit Provider Nurse Practitioner Family
DX: N39.3 Stress incontinence (female) (male) (principal); N28.1 Cyst of kidney, acquired; E11.9 Type 2 diabetes mellitus without complications; R05.9 Cough, unspecified; Z79.4 Long term (current) use of insulin; Z79.82 Long term (current) use of aspirin; Z79.899 Other long term (current) drug therapy
CPT/HCPCS: 87086; 87147; 88112; 99202

== ENCOUNTER → 2023-02-24 12:57 | Outpatient (REF) | payer OTHER, SELFPAY ==
--- NOTE | 2023-02-24 13:00 | CA_ITS ---
Transthoracic Echocardiogram Patient (Last, First, Middle): Louis Montes T Gender: Female Date of : 1945 Age: 77 Procedure Date: 02/24/2023 Procedure Type: Transthoracic Echocardiogram Location: OP Height: 134.62 cm Weight: 89.81 kg BSA: 1.70 m2 Heart Rate: 65 bpm BP: 148 / 84 mmHg [employer]: SB Referring MD: Shebly Golden MD Symptoms: I50.9 - Heart failure, unspecified Study Quality: Adequate w contrast ECG Rhythm: Sinus Conclusions: - The left ventricular systolic function is normal. The calculated ejection fraction is 65% by biplane method. - Evidence suggests grade III (severe) diastolic dysfunction. - The left atrium is severely dilated. - There is severe aortic valve stenosis. - There is mild mitral valve regurgitation. - Mild pulmonary hypertension is present. Findings Procedure Information Contrast agent, definity, is being given per protocol without apparent complications. Left Ventricle Normal left ventricular cavity size. The left ventricular systolic function is normal. The calculated ejection fraction is 65% by biplane method. There is no evidence of regional wall motion abnormalities. Evidence suggests grade III (severe) diastolic dysfunction. There is mild septal asymmetric hypertrophy. Right Ventricle Normal right ventricular cavity size. There is mildly decreased right ventricular systolic function. Atria The left atrium is severely dilated. The right atrium is normal in size. Aortic Valve There is severe calcification of the aortic valve. There is severe aortic valve stenosis. The peak aortic velocity is 4.89 m/s with a calculated peak gradient of 96 mmHg. The mean gradient is 57 mmHg. The aortic valve area is 0.52 cm2. There is mild aortic valve regurgitation. Mitral Valve There is moderate mitral annular calcification. There is mild mitral valve regurgitation. The mitral regurgitation jet is directed anteriorly. There is no mitral valve stenosis. Pulmonic Valve The pulmonic valve is likely normal. Tricuspid Valve There is mild tricuspid valve regurgitation. Mild pulmonary hypertension is present. Great Vessels The asc aorta is normal in size. Venous The inferior vena cava is normal in size and collapses greater than 50% with inspiration. Pericardium/Pleural There is no evidence of pericardial effusion. Prior Study Comparison Changes noted compared to prior study dated: 02/20/2021. progression of aortic valve stenosis. Measurements 2D Linear Measurements IVSd: 1.08 0.6-0.9/0.6-1.0 cm LVIDd: 4.88 3.9-5.3/4.2-5.9 cm LVIDd Index: 2.87 2.4-3.2/2.2-3.1 cm/m2 LVIDs: 4.05 2.0-3.6 cm LVPWd: 0.90 0.7-1.1 cm LA Diam: 4.30 2.7-3.8/3.0-4.0 cm LAIDs Index: 2.53 1.5-2.3 cm/m2 LV Mass: 215.17 67-162/88-224 g LV Mass Index: 126.57 43-95/49-115 g/m2 LVOT Diam: 2.00 3.0+(-)1.3 cm 2D Systolic Function EF 4C: 61.50 >55% EF 2C: 67.00 >55% EF BiP: 64.60 >55% Mitral Valve MV Pk E: 1.56 MV PK A: 0.53 MV Decel Time: 179.00 E/A: 3.00 E'Lateral: 5.33 E'Medial: 4.13 E/E' Med: 37.80 E/E' Lat: 29.30 PHT: 52.00 MVA PHT: 4.23 Decel [place]: 8.73 Aortic Valve AoV Pk Ned: 4.89 AoV Mn Ned: 3.54 AoV VTI: 1.35 AoV Pk Grad: 96.00 Aov Mn Grad: 57.00 JULIETTE Cont.VTI: 0.52 AI Pk Ned: 3.68 AI [place]: 2.44 LVOT LVOT Pk Ned: 0.75 LVOT Mn Ned: 0.55 LVOT VTI: 0.22 LVOT Pk Grad: 2.00 LVOT Mn Grad: 1.00 LVOT Diam: 2.00 LVOT Area: 3.14 Diastolic Function MV Pk E: 1.56 MV Pk A: 0.53 E/A: 3.00 E'Medial: 4.13 E/E' Med: 37.80 E' Laterial: 5.33 E/E' Lat: 29.30 Right Ventricle TAPSE (mm): 17.50 TVS' Ned: 9.36 Tricuspid Valve TR Pk Ned: 3.37 TR Pk Grad: 45.00 RA Press: 3.00 RVSP: 48.00 Great Vessels Aorta Sinus of Valsalva: 2.70 2.0-3.5 cm Ao Asc: 2.80 2.1-3.4 cm Pulmonary Veins Pulm Vein S/D 0.80 Pulmonary Valve PV Pk Ned: 0.83 Peak PV Grad: 3.00 Updated in Other Vendor System with Status of Final Johnnie Lee MD electronically signed on 02/26/2023 10:25:23 AM with status of Final
== END ==
LOC: HO.CARD 12:57
PROVIDERS: PCP Internal Medicine; Visit Provider Internal Medicine
DX: I50.9 Heart failure, unspecified (principal)
CPT/HCPCS: 93306; Q9957

== ENCOUNTER 2023-02-26 12:34 | Outpatient (REF) | payer OTHER, SELFPAY ==
--- NOTE | ~2023-02-26 | MM_ITS ---
EXAMINATION: MM SCREENING DIGITAL BREAST TOMOSYNTHESIS, BILATERAL CLINICAL INFORMATION: Screening. Asymptomatic. The lifetime risk of breast cancer based on the Tyrer-Cuzick Model is 3%. COMPARISON: Mammography: 04/29/2021, 04/23/2020, 04/18/2019 TECHNIQUE: Digital breast tomosynthesis is performed in both the craniocaudal and mediolateral oblique views along with computer-aided detection (CAD). Synthesized 2D images are generated from the tomosynthesis. Additional right CC view is provided. FINDINGS: There are scattered areas of fibroglandular density (ACR BI-RADS breast composition Category b). Parenchymal pattern is similar to prior studies. No developing density or architectural abnormality or significant mass. Again, there are numerous bilateral predominantly ductal secretory and some punctate round and vascular calcifications. No abnormal calcifications. The axilla and skin contours are unremarkable. MM/MM tomosynthesis screening BI IMPRESSION: No mammographic evidence of malignancy. ASSESSMENT: BI-RADS 2: Benign RECOMMENDATION: Routine annual mammography screening. This patient's information was entered into a reminder system with a target due date for their next mammogram.
--- NOTE | ~2023-02-26 | MM_ITS ---
EXAMINATION: BONE DENSITOMETRY CLINICAL INDICATION: Unspecified menopausal and perimenopausal disorder. COMPARISON: Previous BD dated 04/23/2020 and baseline BD dated 10/21/2007. TECHNIQUE: Using a [employer]olane DXA System (software version: 13.1) manufactured by [employer], dual-energy x-ray absorptiometry was performed of the lumbar spine and left hip. The images are of good technical quality. Summary results are attached. FINDINGS: AP SPINE L1-L4: Current: BMD 1.188 g/cm2, Z-score 0.9, T-score 0.1, normal, 3.8% increase from previous, 18.0% increase from baseline (<5% change is not significant). Prior: BMD 1.144 g/cm2. Baseline: BMD 1.007 g/cm2. LEFT FEMUR, NECK: Current: BMD 0.771 g/cm2, Z-score -0.5, T-score -1.9, osteopenia. Prior: BMD 0.933 g/cm2. Baseline: BMD 0.989 g/cm2. LEFT FEMUR, TOTAL: Current: BMD 0.901 g/cm2, Z-score 0.4, T-score -0.8, normal, 18.7% decrease from previous, 26.7% decrease from baseline (<5% change is not significant). Prior: BMD 1.108 g/cm2. Baseline: BMD 1.229 g/cm2. IDENTIFIED RISK FACTORS: Anticonvulsant, menopause, renal. HISTORY OF FRACTURE: None listed. MEDICATIONS: Vitamin D. MM/XR DEXA axial skeleton IMPRESSION: 1. DIAGNOSIS: Osteopenia based on the lowest T-score value of -1.9 in the femoral neck applying World Health Organization criteria. 2. 10-YEAR FRACTURE RISK PREDICTION, FRAX: Major osteoporotic fracture (clinical spine, forearm, hip or shoulder) 7.2%. Hip fracture 1.7%. 3. Treatment Recommendations: NOF guidelines recommend consideration for treatment in postmenopausal women and men age 50 and older presenting with the following: -A hip or vertebral (clinical or morphometric) fracture. -T-score less than or equal to -2.5 at the femoral neck or spine after appropriate evaluation to exclude secondary causes. -Low bone mass at the hip or spine and a 10-year fracture probability by FRAX of greater than or equal to 3% for hip fracture or greater than or equal to 20% for major osteoporotic fracture based on the [place] adapted WHO algorithm. 4. Other Recommendations: All treatment decisions require clinical judgment and consideration of individual patient factors, including patient preferences, comorbidities, previous drug use, risk factors not captured in the FRAX model (e.g. frailty, falls, vitamin D deficiency, increased bone turnover, interval significant decline in bone density) and possible under or overestimation of fracture risk by FRAX. Additional medical evaluation for secondary cause of low bone mineral density may be appropriate. FUTURE SCAN RECOMMENDATION: People with diagnosed cases of osteoporosis or at high risk for fracture should have regular bone mineral density tests. For patients eligible for Medicare, routine testing is allowed once every 2 years. The testing frequency can be increased to one year for patients who have rapidly progressing disease, those who are receiving or discontinuing medical therapy to restore bone mass, or have additional risk factors.
== END 2023-02-26 12:35 | disposition home or self-care (01) ==
LOC: HO.MAMMO 12:34
PROVIDERS: PCP Internal Medicine; Visit Provider Internal Medicine
DX: Z12.31 Encounter for screening mammogram for malignant neoplasm of breast (principal); Z13.820 Encounter for screening for osteoporosis; Z78.0 Asymptomatic menopausal state
CPT/HCPCS: 77063; 77067; 77080

== ENCOUNTER → 2023-03-15 13:39 | Outpatient (BNVA) | payer OTHER, SELFPAY | PROVIDERS: PCP Internal Medicine; Visit Provider Hospitalist | DX: J45.40 Moderate persistent asthma, uncomplicated (principal); G47.33 Obstructive sleep apnea (adult) (pediatric); I35.0 Nonrheumatic aortic (valve) stenosis | CPT/HCPCS: 99212 ==

== ENCOUNTER 2023-03-22 11:37 | Outpatient (REF) | payer OTHER, SELFPAY | END 2023-03-22 11:38 | disposition home or self-care (01) | LOC: HO.LNP 11:37 | PROVIDERS: Visit Provider Nurse Practitioner Family | DX: N39.0 Urinary tract infection, site not specified (principal) | CPT/HCPCS: 87086 ==

== ENCOUNTER 2023-04-14 10:53 | Outpatient (REF) | payer OTHER, SELFPAY ==
--- NOTE | ~2023-04-14 | XR_ITS ---
EXAMINATION: XR CHEST CLINICAL INFORMATION: Cough and pneumonia COMPARISON: 10/10/2022 TECHNIQUE: 2 views of the chest were obtained. FINDINGS: Mildly prominent cardiac silhouette. Aortic calcifications. Mediastinum within normal limits. Prominent olvin with indistinctness of the pulmonary vascularity. Bilateral pulmonary opacities and small right effusion. Degenerative changes. XR/XR chest 2V IMPRESSION: Small right pleural effusion and bilateral pulmonary opacities, unclear as to the extent of vascular congestion and/or superimposed pneumonias and lymphadenopathy. Consider short-term radiographic follow-up versus chest CT depending on the clinical scenario.
[2023-04-14 12:53] LABS: Venous Blood Gas Refer to POC result
[2023-04-14 12:58] LABS: VBG Base Excess 8.7 mmol/L; VBG HCO3 34 mmol/L (22-26); VBG pCO2 55 mmHg; VBG pO2 30 mmHg
== END 2023-04-14 10:54 | disposition home or self-care (01) ==
LOC: HO.LAB 10:53
PROVIDERS: PCP Internal Medicine; Visit Provider Nurse Practitioner Family
DX: J44.9 Chronic obstructive pulmonary disease, unspecified (principal); I50.9 Heart failure, unspecified; J18.9 Pneumonia, unspecified organism
CPT/HCPCS: 36415; 71046; 82803; 99212

== ENCOUNTER 2023-04-14 10:53 | Outpatient (AMB) | payer OTHER, SELFPAY ==
[2023-04-14 11:35] VITALS: BP 110/60; PULSE 80; O2SAT 91; BMI 39.1
--- NOTE | 2023-04-14 11:35 | A.OFFVIS_ITS ---
Intake Vital Signs 04/14/23 11:35 Height 5 ft Weight 200 lb BMI 39.1 BP 110/60 Blood Pressure Location Lt brachial Position Sitting Pulse 80 Pulse Source Pulse Oximeter Pulse Oximetry (%) 91 L Oxygen Delivery Method Nasal Cannula Oxygen Flow Rate 2 Intake Visit Reasons: S/p hospital admit Intake Note: Patient here today after discharged on 04/07/23. She is here today with her and magazine hand, Ashley. The patient is very weak, and gets SOB easily. They notice she is unsteady on her feet and needs assitance. Patient is using o2 continuously at 2l. She is sleeping poorly and notes upper abdominal pain which is gas and it adds to her breathing difficulty. Parcel Carrier Required: Yes Ammunition Assembly Ii Laborer: Ammunition Assembly Ii Laborer offered & declined Accompanied by: and magazine hand Allergies acetaminophen [From Percocet] Allergy (Intermediate, Verified 04/14/23 11:49) Itching ibuprofen [From Motrin] Allergy (Intermediate, Verified 04/14/23 11:49) High Blood Pressure, Rash oxycodone [From Percocet] Allergy (Intermediate, Verified 04/14/23 11:49) Itching Medication List - Last Reconciled 04/14/23 by Paty Gutierrez LPN albuterol sulfate 90 mcg/actuation (Ventolin HFA) 2 puffs PO Q4-6H PRN amlodipine 10 mg PO DAILY aspirin 81 mg PO BEDTIME atorvastatin 80 mg PO BEDTIME 90 days blood pressure monitor As directed blood sugar diagnostic (FreeStyle Lite Strips) 3times a day blood-glucose meter (FreeStyle Spring Lite kit) As directed brimonidine 0.2% 1 drp ophthalmic (eye) BID calcium acetate 667 mg PO .twice a day 90 days carvedilol 25 mg PO BID cetirizine 1 tab PO DAILY PRN empagliflozin (Jardiance) 10 mg PO QAM ergocalciferol (vitamin D2) 1 cap PO [place]ORD@0900 esomeprazole magnesium 40 mg PO DAILY fluticasone propionate 50 mcg/actuation 1 spray intranasal DAILY hulxqujolai-pgbnknuqg-pbnuzpsh 100-62.5-25 mcg (Trelegy Ellipta) 1 inh inhalation DAILY 30 days folic acid 1 mg PO DAILY FreeStyle Lancets (lancets) 3 times a day NS gabapentin 300 mg PO BEDTIME hydralazine 25 mg PO BID insulin aspart U-100 (Novolog FlexPen U-100 Insulin aspart) 4 units See Protocol subcut TIDAC insulin glargine U-300 conc (Toujeo SoloStar U-300 Insulin) 35 units (0.1167 mL) subcut DAILY 90 days latanoprost 0.005% 1 drp ophthalmic (eye) BEDTIME linagliptin (Tradjenta) 5 mg PO DAILY montelukast 10 mg PO BEDTIME nitrofurantoin monohyd/m-cryst 100 mg (Macrobid) 100 mg PO Q12H 5 days Oxygen Home Use As directed pen needle, diabetic (BD Sia 2nd Gen Pen Needle) 5 times a day sennosides (Senokot) 17.2 mg (2 x 8.6 mg) PO BEDTIME torsemide 20 mg PO BID HPI S/p hospital admit HPI Details Louis is a pleasant 78 year old female, never smoker, who is followed for COPD and JOSE not currently on CPAP. Today she presents for hospital follow up. She is accompanied by her and RESEARCH INTERVIEWER. She is using a wheelchair for ambulation, as she has increased weakness since being discharged. She was admitted to [facility] on 04/07/23 after an acute dyspneic episode that developed within two hours and was found to have an oxygen saturation of 60% by EMS. She was admitted for five days for pneumonia treated with IV antiobiotics and CHF exacerbation, requiring BiPAP and discharged on continuous supplemental oxygen, 2L NC as well as iron supplementation. Since being discharged patient with what she feels unchanged shortness of breath with minimal exertion. also noted on two occasions she has produced black mucus. She is under the care of cardiology but patient has not been seen since October. Of note, patient was on CPAP therapy for severe JOSE but sounds like there were compliance issues and insurance discontinued use. 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, acquired, right Thalamic pain syndrome Vitamin D deficiency Surgical History History of breast lump/mass excision History of cholecystectomy History of tubal ligation Family History Sister History of renal pelvis cancer Father Suicide Mother Lung disease Diabetes mellitus Social History Household Members: Family Housing: House Do you presently have visiting nurse or other home services: Yes (magazine hand) Alcohol intake: never Patient Tobacco Use Status: Former Tobacco user Tobacco use type: Cigarette Years Smoked: 5 years e-Cigarette/Vaping Use: Never Used Second Hand Smoke Exposure: No service: No Current occupational status: unemployed and disabled Gender identity: Female Cognitive needs: Yes Hearing needs: No Vision needs: No Female Reproductive History Menstrual Age of Menarche: 10 Review of Systems Const Denies chills, Denies excessive sweating, Denies fever(s), Denies headache(s) and Denies night sweats ENT Reports Normal hearing present, Denies headache(s), Denies nasal congestion, Den ies nasal discharge, Denies post nasal drip and Denies sore throat Card Denies chest pain, Denies chest pain at rest, Denies chest pain with activity and Denies claudication Resp Denies excessive phlegm production, Denies pain on inspiration, Denies pain with cough and Denies stridor Neuro Reports Normal hearing present and Denies headache(s) Endo Denies excessive sweating Luis Antonio/Lymph Denies lymphadenopathy Aller/Immun Denies seasonal rhinorrhea Physical Exam Vital Signs: Last Vital Signs Pulse 80 04/14/23 11:35 BP 110/60 04/14/23 11:35 Pulse Ox 91 L 04/14/23 11:35 Oxygen Delivery Method Nasal Cannula 04/14/23 11:35 Oxygen Flow Rate 2 04/14/23 11:35 BMI result Body Mass Index 39.1 Const General: cooperative, no acute distress, well developed and alert Nutritional Appearance: obese Orientation/consciousness: patient oriented x3 HEENT Head: Yes normal to inspection, Yes normocephalic and Yes atraumatic Ears: hearing grossly normal bilaterally and external ears normal Eyes General: appearance normal, both eyes and all related structures Eyelids: Yes eyelids normal Sclerae: sclerae normal EOM: EOMs intact bilaterally Neck Neck: Yes normal visual inspection and Yes no lymphadenopathy Lymphatic: no lymphadenopathy noted Chest Chest palpation & inspection: normal inspection of the chest Resp Other: faint expiratory wheezes and fine inspiratory crackles at bases Effort & Inspection: normal respiratory effort, able to speak in complete sentences, no audible wheezes, no stridor, not tachypneic, no tripod positioning and no use of accessory muscles Cardio Rate: regular rate Rhythm: regular rhythm Skin Other: warm, dry General skin exam: no rashes or lesions noted Neuro General: patient oriented x3 Cranial nerves: Yes Normal hearing present Cognition (Neuro): normal cognition Extrem General: Yes normal to inspection and Yes no pedal edema Psych Appearance: grossly normal and well kempt Speech and movement: Normal speech and movement present and Clear speech present Affect: normal affect Attitude: cooperative Thought process: Normal thought process present Thought content: Normal thought content present Insight: Good insight present (Psych) Judgement: Good judgement present (Psych) Assessment & Plan Assessment & Plan (1) COPD (chronic obstructive pulmonary disease): Code(s): J44.9 - Chronic obstructive pulmonary disease, unspecified (2) Congestive heart failure: Code(s): I50.9 - Heart failure, unspecified Plan Patient presents for hospital follow up after CHF exacerbation and pneumonia, requiring BiPAP for some time, treated at [facility], discharged on 04/07 and now requiring continuos oxygen supplementation. When patient came to office the prongs from the nasal cannula were on her cheek, and oxygen saturation was 84%. Educated importance of wearing NC properly to ensure adequate oxygenation. After placing prongs correctly, O2 94% on 2L. On exam, appreciated wheezing on expiration. Patient unsure if she was taking prednisone upon discharge, will check when home. Will send in prednisone 40 mg x 5 days if she is not currently taking. Patient previously went for a sleep study revealing moderate obstructive sleep apnea and started CPAP therapy. Unfortunately, it sounds like there was a noncompliance issue and therapy was discontinued. She will need to go for a repeat sleep study to obtain another CPAP or BiPAP if needed. Will also send for blood gases. All questions were answered and patient is in agreement of plan. Will follow up closely in 2 weeks. Patient is aware if symptoms are worsening or requiring more oxygen to call the office. Orders: Orders Venous Blood Gas 04/14/23 J44.9 - Chronic obstructive pulmonary disease, unspecified RT PSG in-lab sleep study 04/14/23 R40.0 - Somnolence XR chest 2V 04/14/23 J18.9 - Pneumonia, unspecified organism Medications: New prednisone 40 mg (2 x 20 mg) PO DAILY 10 tabs 0RF Coding Level of Care Code Est Pt Level 4 (50778) Diagnoses COPD (chronic obstructive pulmonary disease) J44.9 Congestive heart failure I50.9
== END 2023-04-14 13:22 | disposition home or self-care (01) ==
PROVIDERS: PCP Internal Medicine; Visit Provider Nurse Practitioner Family
DX: J44.9 Chronic obstructive pulmonary disease, unspecified (principal); I50.9 Heart failure, unspecified
CPT/HCPCS: 99214

== ENCOUNTER 2023-04-16 12:28 | Inpatient (IN) | payer OTHER, SELFPAY ==
[2023-04-16] VITALS (10 sets, daily range): BP systolic 123–146; BP diastolic 52–62; PULSE 50–66; RESP 17–27; TEMP 36.5–36.6; O2SAT 88–98; BMI 43.7
--- NOTE | ~2023-04-16 | XR_ITS ---
EXAMINATION: XR CHEST CLINICAL INFORMATION: Hypoxia and shortness of breath. COMPARISON: 04/14/2023 TECHNIQUE: Frontal view of the chest was obtained. FINDINGS: Multifocal airspace disease. Bilateral pleural effusions, right greater than left. Obscured cardiac silhouette. XR/XR chest 1V IMPRESSION: Multifocal pneumonia with increased bilateral pleural effusions.
--- NOTE | ~2023-04-16 | CT_ITS ---
EXAMINATION: CT CHEST WITHOUT CONTRAST CLINICAL INFORMATION: Hypoxia and leukocytosis. COMPARISON: CT chest 05/07/2022. TECHNIQUE: Multidetector volumetric CT imaging of the chest was done. Axial MIP volume rendering provided. Sagittal and coronal reformatted images were obtained. This CT examination was performed using dose optimization techniques as appropriate, variously including the following: *Automated exposure control *Adjustment of mA and/or kV according to patient size (this includes techniques or standardized protocols for targeted exams where dose is matched to indication/reason for exam; i.e. extremities or head) *Use of iterative reconstruction technique DLP: 449 mGy-cm FINDINGS: LUNGS: Consolidative airspace opacities in the bilateral lower lobes and right middle lobe. Moderate size bilateral pleural effusions, greater on the right side. Extensive crazy paving appearance of the lungs manifested by groundglass opacities and septal thickening. The trachea and main stem bronchus are patent. Evaluation of pulmonary nodules/masses is very limited due to overlying airspace opacities. MEDIASTINUM: Cardiomegaly. No significant pericardial effusion. Increased size and number of mediastinal lymph nodes compared to 05/07/2022. Evaluation of the hilar structures is very limited in the absence of IV contrast. Normal appearance of the thyroid gland. CORONARY ARTERY CALCIFICATION: Coronary artery calcifications are present and extensive. PLEURA: As above, moderate size pleural effusions. No pneumothorax. AXILLA: No lymphadenopathy. UPPER ABDOMEN: A few calcified granulomas in the liver and spleen are noted. Cholecystectomy with unchanged chronic dilatation of the extrahepatic bile ducts. Atrophic pancreas. Atherosclerotic disease. OSSEOUS STRUCTURES: Thoracic spondylosis. No acute or aggressive appearing osseous findings. CT/CT chest wo IV con IMPRESSION: 1. Widespread multifocal airspace opacities and crazy paving with moderate size pleural effusions. Findings are nonspecific and could represent the combination of an extensive infectious/inflammatory process with pulmonary edema. Evaluation of pulmonary nodules is essentially nondiagnostic due to overlying airspace opacities, a short term follow-up chest CT is recommended. 2. Increased size and number of mediastinal lymph nodes, likely reactive. Continued follow-up recommended. 3. Cardiomegaly with extensive coronary artery calcifications. Correlation with cardiac risk factors is recommended.
--- NOTE | 2023-04-16 12:48 | PC.NURSE ---
pt aox4. fine crackles noted bilaterally, no wheezing. pt switched to 6L NC and sating 91 in room.
--- NOTE | 2023-04-16 12:49 | PC.NURSE ---
pt took 40mg prednisone so far today
--- NOTE | 2023-04-16 13:02 | ECG_ITS ---
Test Reason : sob Blood Pressure : / mmHG Vent. Rate : 047 BPM Atrial Rate : 047 BPM P-R Int : 126 ms QRS Dur : 100 ms QT Int : 470 ms P-R-T Axes : 028 020 164 degrees QTc Int : [address] & T wave abnormality, consider lateral ischemia Abnormal ECG When compared with ECG of 10-OCT-2022 12:52, No significant change was found Referred By: Roxana Andrew Electronically Signed By:FRIDA MO MD
--- NOTE | 2023-04-16 13:18 | ED_ITS ---
HPI - SOB/Dyspnea General Chief Complaint: Dyspnea Stated Complaint: sob Time Seen by Provider: 04/16/23 13:01 Source: family Mode of arrival: EMS Limitations: language barrier History of Present Illness HPI Narrative: 78 year old female lithuanian speaking patient with past medical history of COPD, HFpEF, obesity, HTN, DM type 2, HLD, JOSE, severe aortic stenosis, pneumonia, and exocrine pancreatic insufficiency, presents to the ED today for SOB. Was admitted to [facility] on 04/03/23 for SOB and discharged on 04/07/23 home with her daughter not requiring O2 supplementation. Per daughter on home pulse oximetry she was stating between 83-89% on room air so she initiated 2L of O2 and but didn't see much improvement so that what prompted her to have her taken by EMS here to the ED. She has been feeling generally weak, but denies fever, chills, chest pain, but elicits some epigastric pain, chest tightness, and loss of appetite. She has not experienced any nausea, vomiting or diarrhea and has been doing well with fluids. MD elicited complaint: shortness of breath Pertinent past history: COPD, asthma and congestive heart failure Onset (ago): week(s) Timing: constant Severity: moderate Exacerbating factors: movement Relieving factors: oxygen Known history of: COPD, asthma and congestive heart failure Associated symptoms: pain with inspiration and wheezing Treatment prior to arrival: oxygen Related Data Home oxygen amount: 2 liters Home Medications Medication Instructions Recorded Confirmed carvedilol 25 mg tablet 25 mg PO BID 01/18/21 04/16/23 montelukast 10 mg tablet 10 mg PO BEDTIME 01/18/21 04/16/23 gabapentin 300 mg capsule 300 mg PO BEDTIME 02/20/21 04/16/23 folic acid 1 mg tablet 1 mg PO DAILY 08/21/21 04/16/23 fluticasone propionate 50 1 spray intranasal DAILY PRN 06/18/22 04/16/23 mcg/actuation nasal Allergy Symptoms spray,suspension blood-glucose meter (FreeStyle #1 ea 08/12/22 04/14/23 [place] Lite kit) linagliptin 5 mg tablet (Tradjenta) 5 mg PO DAILY 10/10/22 04/16/23 hydralazine 25 mg tablet 25 mg PO BID 11/13/22 04/16/23 torsemide 20 mg tablet 20 mg PO BID@0900,1700 11/13/22 04/16/23 insulin aspart U-100 100 unit/mL 1 sliding scale dose subcut TIDAC 01/08/23 04/16/23 (3 mL) subcutaneous pen (Novolog FlexPen U-100 Insulin aspart) Oxygen Home Use 03/15/23 04/14/23 blood sugar diagnostic (FreeStyle 03/15/23 04/14/23 Lite Strips) esomeprazole magnesium 40 mg 40 mg PO DAILY@0630 03/15/23 04/16/23 capsule,delayed release calcium acetate 667 mg tablet 667 mg PO BID 04/16/23 04/16/23 cyanocobalamin (vitamin B-12) 1,000 mcg PO DAILY 04/16/23 04/16/23 1,000 mcg tablet empagliflozin 10 mg tablet 10 mg PO DAILY 04/16/23 04/16/23 (Jardiance) ferrous sulfate 325 mg (65 mg 325 mg PO DAILY 04/16/23 04/16/23 iron) tablet,delayed release insulin glargine U-300 conc 300 32 unit subcut DAILY 04/16/23 04/16/23 unit/mL (1.5 mL) subcutaneous pen (Toujeo SoloStar U-300 Insulin) polyethylene glycol 3350 17 17 g PO DAILY PRN Constipation 04/16/23 04/16/23 gram/dose oral powder (ClearLax) tobramycin 0.3 %-dexamethasone 0.1 1 drp ophthalmic (eye) QID 04/16/23 04/16/23 % eye drops,suspension Previous Rx's Medication Instructions Recorded FreeStyle Lancets 28 gauge #300 ea 01/15/22 (lancets) pen needle, diabetic 32 gauge x #400 ea 04/29/22/32 (BD Sia 2nd Gen Pen Needle) fluticasone fur. 100 mcg-umeclid 1 inh inhalation DAILY 30 days #60 11/13/22 62.5 mcg-vilant 25 mcg ea inhalat.powder (Trelegy Ellipta) atorvastatin 80 mg tablet 80 mg PO BEDTIME 90 days #90 tabs 02/03/23 aspirin 81 mg tablet,delayed 81 mg PO BEDTIME #90 tabs 03/11/23 release blood pressure monitor #1 ea 04/12/23 prednisone 20 mg tablet 40 mg PO DAILY #10 tabs 04/14/23 amlodipine 10 mg tablet 10 mg PO DAILY #30 tabs 04/15/23 lancets 33 gauge (TRUEplus Lancets) #100 ea 04/15/23 Allergies Allergy/AdvReac Type Severity Reaction Status Date / Time acetaminophen [From Percocet] Allergy Intermediate Itching Verified 04/14/23 11:49 ibuprofen [From Motrin] Allergy Intermediate High Blood Verified 04/14/23 11:49 Pressure, Rash oxycodone [From Percocet] Allergy Intermediate Itching Verified 04/14/23 11:49 Review of Systems Review of Systems: Yes all other systems are reviewed and are negative ON LICENSE OF [facility] Past Medical History Medical History Aortic stenosis Asthma Back pain Chronic kidney disease CKD (chronic kidney disease) stage 3, GFR 30-59 ml/min Diabetic nephropathy associated with type 2 diabetes mellitus Diabetic polyneuropathy associated with type 2 diabetes mellitus Dyslipidemia Exocrine pancreatic insufficiency GERD (gastroesophageal reflux disease) HLD (hyperlipidemia) Hypertension Morbid obesity JOSE (obstructive sleep apnea) 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, acquired, right Thalamic pain syndrome Vitamin D deficiency Surgical History History of breast lump/mass excision History of cholecystectomy History of tubal ligation Family History Family History Sister History of renal pelvis cancer Father Suicide Mother Lung disease Diabetes mellitus Social History Social History Household Members: Family Housing: House Do you presently have visiting nurse or other home services: Yes (precision lens generator) Alcohol intake: never Patient Tobacco Use Status: Former Tobacco user Tobacco use type: Cigarette Years Smoked: 5 years Smoked in Last 30 Days: No e-Cigarette/Vaping Use: Never Used Second Hand Smoke Exposure: No Use of substances other than those prescribed or required for medical reasons: No Advance Directives: No Advance Directives Information Provided: No service: No Current occupational status: unemployed and disabled Gender identity: Female Cognitive needs: Yes Hearing needs: No Vision needs: No Physical Exam Vital Signs: Vital Signs: Last Vital Signs Temp 98 F 04/16/23 12:55 Pulse 62 04/16/23 16:11 Resp 19 04/16/23 16:11 BP 123/62 04/16/23 16:11 Pulse Ox 97 04/16/23 16:11 O2 Del Method Room Air 04/16/23 16:11 O2 Flow Rate 8 04/16/23 15:52 Oxygen Flow Rate 10 04/16/23 12:39 BMI result Body Mass Index 43.7 Appearance: Alert. Oriented X3. in mild acute distress. Head: normocephalic, atraumatic. Eyes: Pupils equal, round and reactive to light. ENT: Pharynx normal. No tonsillar swelling or exudate. Neck: Normal inspection. Neck supple. CVS: Normal heart rate and rhythm. Murmur appreciated at the right second intercostal space. Pulses normal. 2+ pitting edema in bilateral lower extremities Respiratory: in respiratory distress, labored breathing, abdominal breathing. crackles bilaterally, faint expiratory wheeze in the upper right lung. Abdomen: moribdly obese, Soft and nontender. +BS x4 Skin: Skin warm and dry. Normal skin color. Normal skin turgor. No rashes. Extremities: 2+ pitting edema in bilateral lower extremities.. No joint swelling. Neuro/psych: Oriented X 3. No motor deficit. No sensory deficit. CN II-XII intact. Normal speech and cognition. Const: General: cooperative, alert, awake and acute distress Nutritional Appearance: obese Orientation/consciousness: patient oriented x3 Limitations: language barrier HEENT: Head: Yes normal to inspection, Yes normocephalic and Yes atraumatic Ears: hearing grossly normal bilaterally Neuro: General: patient oriented x3 Course Reevaluation(s) Reevaluation #1: remains on rescue BiPAP. treating for acute CHF and possible PNA. CT chest pending. will trial off of BiPAP after CT scan Time: 15:15 Reevaluation #2: stable off of BiPAP - breathing comfortably on 8L oxymask. to be admitted for further management. Time: 16:21 Medications Administered Generic Name Dose Route Start Last Admin Trade Name Freq PRN Reason Stop Dose Admin Vancomycin HCl 2,000 mg in 500 mls @ 250 mls/hr 04/16/23 14:43 04/16/23 15:56 Vancomycin/Ns IV 04/16/23 16:42 250 mls/hr ONCE ONE Administration Discontinued Medications Generic Name Dose Route Start Last Admin Trade Name Freq PRN Reason Stop Dose Admin Furosemide 80 mg 04/16/23 14:12 04/16/23 15:13 Furosemide 100 Mg/10 Ml Vial IVPUSH 04/16/23 14:13 80 mg ONCE ONE Administration Protocol Piperacillin Sod/Tazobactam 100 mls @ 200 mls/hr 04/16/23 14:43 04/16/23 16:02 Sod 4.5 gm/ Sodium Chloride IV 04/16/23 15:12 Infused ONCE ONE Infusion Medical Decision Making Medical Decision Making MDM Narrative: 78 year old female Welsh speaking patient with past medical history of COPD, HFpEF, obesity, HTN, DM type 2, HLD, JOSE, severe aortic stenosis, pneumonia, and exocrine pancreatic insufficiency, presents to the ED today for SOB. Increased WOB on arrival requiring rescue BiPAP 16/8 w/ 30% FiO2. CXR w/ CHF vs multifocal PNA. labs show significant leukocytosis 22.4. 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 BNP 1974. ABG showed pH of 7.59 consistent with respiratory Alkalosis. breathing more comfortably on BiPAP Will give lasix and empiric abx to cover HCAP given recent admission. lactic acid is normal and so is procalcitonin, PNA less likely. CT chest ordered Will require admission Differential Diagnosis Differential Diagnoses: The differential diagnosis associated with the presentation includes Pulmonary embolism, CHF exacerbation, asthma exacerbation, pneumonia, ARDS Admission/Observation Consideration of admission/observation: Escalation of care including admission/observation considered resp failure requiring BiPAP Consult Healthcare Provider Management of the patient was discussed with: Hospitalist Lab Data [facility] Lab Attestation statement: I reviewed the patient's lab results. significant leukocytosis. BNP 1974 c/w acute CHF. less likely PNA with low procal and normal lactic acid stable CKD 04/16/23 13:23 04/16/23 13:23 Labs: Lab Results 04/16/23 04/16/23 04/16/23 Range/Units 13:23 13:23 13:23 WBC 22.4 H (4.8-10.8) X10*3/uL RBC 4.09 L D (4.20-5.50) X10*6/uL Hgb 9.5 L D (12.0-16.0) g/dl Hct 31.7 L (37.0-47.0) % MCV 77.5 L (80.0-98.0) fL MCH 23.2 L (27.0-33.0) pg MCHC 30.0 L (31.0-35.0) g/dl RDW 19.7 H (11.0-16.0) % Plt Count 382 (160-400) X10*3/uL MPV Not Reportable Immature Gran % (Auto) 0.8 H (0.0-0.4) % Neut % (Auto) 94.2 H (45-73) % Lymph % (Auto) 2.8 L (20-40) % Craig % (Auto) 2.0 (2-11) % Eos % (Auto) 0.0 (0-4) % Baso % (Auto) 0.2 (0-2) % Lymph # (Auto) 0.6 L (1.2-4.9) X10*3/uL Craig # (Auto) 0.5 (0.1-1.2) X10*3/uL Eos # (Auto) 0.0 (0.0-0.4) X10*3/uL Baso # (Auto) 0.0 (0.0-0.2) X10*3/uL Abs Immat Gran (auto) 0.18 H (0.00-0.03) X10*3/uL Absolute Neuts (auto) 21.1 H (2.0-8.3) x10*3/uL Absolute Nucleated RBC 0.020 H (0.0-0.012) X10*3/uL Nucleated RBC % (auto) 0.1 (0.0-0.2) /100WBC Smear Tech's Comments VERIFIED VBG pH (7.32-7.43) VBG pCO2 mmHg VBG pO2 mmHg VBG HCO3 (22-26) mmol/L VBG O2 Saturation % VBG Base Excess mmol/L Sodium 138 (135-145) mmol/L Potassium 4.1 (3.3-5.1) mmol/L Chloride 102 (96-108) mmol/L Carbon Dioxide 23 (22-29) mmol/L Anion Gap 17 (12-20) BUN 40 H (9-16) mg/dL Creatinine 1.68 H (0.5-1.4) mg/dL Estim Creat Clear Calc 26.0 Estimated GFR 29 POC Glucose (60-115) mg/dL Random Glucose 252 H (60-115) mg/dL Lactic Acid 1.6 (0.5-2.0) mmol/L Calcium 10.3 H D (8.4-10.2) mg/dL Magnesium 2.8 H (1.6-2.6) mg/dL Total Bilirubin 1.6 H (0.0-1.0) mg/dL Direct Bilirubin 0.5 (0.0-0.5) mg/dL AST 16 (5-31) U/L ALT 15 (0-31) U/L Alkaline Phosphatase 144 H (39-117) U/L Troponin I High Sens (<3.5-17.0) ng/L B-Natriuretic Peptide (<100) pg/mL Total Protein 8.1 H (6.5-8.0) g/dL Albumin 3.5 (3.5-5.0) g/dL Procalcitonin 0.05 ng/mL COVID-19 ([facility]) (Negative) COVID-19 Clin Com 04/16/23 04/16/23 04/16/23 Range/Units 13:23 13:24 13:27 WBC (4.8-10.8) X10*3/uL RBC (4.20-5.50) X10*6/uL Hgb (12.0-16.0) g/dl Hct (37.0-47.0) % MCV (80.0-98.0) fL MCH (27.0-33.0) pg MCHC (31.0-35.0) g/dl RDW (11.0-16.0) % Plt Count (160-400) X10*3/uL MPV Immature Gran % (Auto) (0.0-0.4) % Neut % (Auto) (45-73) % Lymph % (Auto) (20-40) % Craig % (Auto) (2-11) % Eos % (Auto) (0-4) % Baso % (Auto) (0-2) % Lymph # (Auto) (1.2-4.9) X10*3/uL Craig # (Auto) (0.1-1.2) X10*3/uL Eos # (Auto) (0.0-0.4) X10*3/uL Baso # (Auto) (0.0-0.2) X10*3/uL Abs Immat Gran (auto) (0.00-0.03) X10*3/uL Absolute Neuts (auto) (2.0-8.3) x10*3/uL Absolute Nucleated RBC (0.0-0.012) X10*3/uL Nucleated RBC % (auto) (0.0-0.2) /100WBC Smear Tech's Comments VBG pH 7.59 H (7.32-7.43) VBG pCO2 26 mmHg VBG pO2 50 mmHg VBG HCO3 25 (22-26) mmol/L VBG O2 Saturation 88.0 % VBG Base Excess 4.8 mmol/L Sodium (135-145) mmol/L Potassium (3.3-5.1) mmol/L Chloride (96-108) mmol/L Carbon Dioxide (22-29) mmol/L Anion Gap (12-20) BUN (9-16) mg/dL Creatinine (0.5-1.4) mg/dL Estim Creat Clear Calc Estimated GFR POC Glucose (60-115) mg/dL Random Glucose (60-115) mg/dL Lactic Acid (0.5-2.0) mmol/L Calcium (8.4-10.2) mg/dL Magnesium (1.6-2.6) mg/dL Total Bilirubin (0.0-1.0) mg/dL Direct Bilirubin (0.0-0.5) mg/dL AST (5-31) U/L ALT (0-31) U/L Alkaline Phosphatase (39-117) U/L Troponin I High Sens (<3.5-17.0) ng/L B-Natriuretic Peptide 1975 H (<100) pg/mL Total Protein (6.5-8.0) g/dL Albumin (3.5-5.0) g/dL Procalcitonin ng/mL COVID-19 ([facility]) Negative (Negative) COVID-19 Clin Com See Note 04/16/23 04/16/23 Range/Units 15:17 16:07 WBC (4.8-10.8) X10*3/uL RBC (4.20-5.50) X10*6/uL Hgb (12.0-16.0) g/dl Hct (37.0-47.0) % MCV (80.0-98.0) fL MCH (27.0-33.0) pg MCHC (31.0-35.0) g/dl RDW (11.0-16.0) % Plt Count (160-400) X10*3/uL MPV Immature Gran % (Auto) (0.0-0.4) % Neut % (Auto) (45-73) % Lymph % (Auto) (20-40) % Craig % (Auto) (2-11) % Eos % (Auto) (0-4) % Baso % (Auto) (0-2) % Lymph # (Auto) (1.2-4.9) X10*3/uL Craig # (Auto) (0.1-1.2) X10*3/uL Eos # (Auto) (0.0-0.4) X10*3/uL Baso # (Auto) (0.0-0.2) X10*3/uL Abs Immat Gran (auto) (0.00-0.03) X10*3/uL Absolute Neuts (auto) (2.0-8.3) x10*3/uL Absolute Nucleated RBC (0.0-0.012) X10*3/uL Nucleated RBC % (auto) (0.0-0.2) /100WBC Smear Tech's Comments VBG pH (7.32-7.43) VBG pCO2 mmHg VBG pO2 mmHg VBG HCO3 (22-26) mmol/L VBG O2 Saturation % VBG Base Excess mmol/L Sodium (135-145) mmol/L Potassium (3.3-5.1) mmol/L Chloride (96-108) mmol/L Carbon Dioxide (22-29) mmol/L Anion Gap (12-20) BUN (9-16) mg/dL Creatinine (0.5-1.4) mg/dL Estim Creat Clear Calc Estimated GFR POC Glucose 230 H (60-115) mg/dL Random Glucose (60-115) mg/dL Lactic Acid (0.5-2.0) mmol/L Calcium (8.4-10.2) mg/dL Magnesium (1.6-2.6) mg/dL Total Bilirubin (0.0-1.0) mg/dL Direct Bilirubin (0.0-0.5) mg/dL AST (5-31) U/L ALT (0-31) U/L Alkaline Phosphatase (39-117) U/L Troponin I High Sens 48.0 H (<3.5-17.0) ng/L B-Natriuretic Peptide (<100) pg/mL Total Protein (6.5-8.0) g/dL Albumin (3.5-5.0) g/dL Procalcitonin ng/mL COVID-19 ([facility]) (Negative) COVID-19 Clin Com ABG Data ABG Results: vbg . Attestation ABG: I personally reviewed and interpreted this ABG as follows: Interpretation: VBG pH of 7.59, PCO2 26 consistent with respiratory alkalosis. Independent Interpretation I performed an independent interpretation of an: EKG Interpretation: sinus bradycardia, ventricular rate of 47 BPM, normal UT interval, t-wave i nversions in lead I and II, Radiology Impression Discussion of test interpretation with radiology: I have reviewed the radiologist's reading. Radiologist Impression: chest xray showed Multifocal pneumonia with increased bilateral pleural effusions. Independent Historian Clinical information obtained from an independent historian. History obtained from or confirmed by: EMS and Other (daughter at the bedside) External Record Review External record reviewed: Inpatient record, Office record, Outpatient record, Prior outpatient labs and Prior outpatient radiology Prescription Management I considered prescription management with: Antibiotic and Other (diuretic) Chronic Conditions Patient?s care impacted by: Other (COPD and CHF) Critical Care Time Critical Care Time Critical Care Time: Yes Total Critical Care Time: 61 Attestation: I have personally provided critical care time exclusive of time spent on separately billable procedures. Time includes review of lab data, radiology results, discussion with consultants, and monitoring for potential decompensation. Intervention performed as documented. Discharge Plan Discharge Clinical Impression: Acute respiratory failure with hypoxia, Acute exacerbation of CHF (congestive heart failure) Patient Disposition: Admitted As Inpatient
[2023-04-16 13:36] LABS: Basophils Percent Auto 0.2 % (0-2); Hematocrit 31.7 % (37.0-47.0); Hemoglobin 9.5 g/dl (12.0-16.0); Imm Gran Abs Auto 0.18 X10*3/uL (0.00-0.03); Imm Gran Pct Auto 0.8 % (0.0-0.4); Lymphocytes Absolute Auto 0.6 X10*3/uL (1.2-4.9); Lymphocytes Percent Auto 2.8 % (20-40); MANUAL DIFF FLAG SCAN; Mean Corpuscular Hemoglobin 23.2 pg (27.0-33.0); Mean Corpuscular Volume 77.5 fL (80.0-98.0); Monocytes Absolute Auto 0.5 X10*3/uL (0.1-1.2); NRBC Pct Auto 0.1 /100WBC (0.0-0.2); Neutrophils Absolute Auto 21.1 x10*3/uL (2.0-8.3); Neutrophils Percent Auto 94.2 % (45-73); PLT CLUMP 1; Red Blood Count 4.09 X10*6/uL (4.20-5.50); Red Cell Distribution Width 19.7 % (11.0-16.0); SCAN SMEAR FLAG 1
[2023-04-16 13:47] LABS: VBG Base Excess 4.8 mmol/L; VBG HCO3 25 mmol/L (22-26); VBG pCO2 26 mmHg; VBG pH 7.59 (7.32-7.43); VBG pO2 50 mmHg
[2023-04-16 13:51] LABS: IDNOW Serial# 08D9AD1C
[2023-04-16 13:52] LABS: COVID-19 Test Negative (Negative)
[2023-04-16 13:53] LABS: Venous Blood Gas Refer to POC result
--- NOTE | 2023-04-16 13:54 | PC.NURSE ---
pt sats 95% on BiPap, 16/8 30%
[2023-04-16 13:57] LABS: White Blood Count 22.4 X10*3/uL (4.8-10.8)
[2023-04-16 13:59] LABS: Platelet Count 382 X10*3/uL (160-400)
[2023-04-16 14:00] LABS: SLIDE REVIEW VERIFIED
[2023-04-16 14:02] LABS: Lactic Acid 1.6 mmol/L (0.5-2.0)
[2023-04-16 14:04] LABS: Alanine Aminotransferase 15 U/L (0-31); Albumin Level 3.5 g/dL (3.5-5.0); Alkaline Phosphatase 144 U/L (39-117); Anion Gap 17 (12-20); Aspartate Amino Transferase 16 U/L (5-31); Bilirubin Direct 0.5 mg/dL (0.0-0.5); Bilirubin Total 1.6 mg/dL (0.0-1.0); Blood Urea Nitrogen 40 mg/dL (9-16); Calcium 10.3 mg/dL (8.4-10.2); Carbon Dioxide 23 mmol/L (22-29); Chloride 102 mmol/L (96-108); Estimated Glomerular Filt Rate 29; Glucose Random 252 mg/dL (60-115); Magnesium 2.8 mg/dL (1.6-2.6); Potassium 4.1 mmol/L (3.3-5.1); Sodium 138 mmol/L (135-145); Total Protein 8.1 g/dL (6.5-8.0)
[2023-04-16 14:09] LABS: B Type Natriuretic Peptide 1975 pg/mL (<100)
[2023-04-16 14:19] LABS: Procalcitonin 0.05 ng/mL
[2023-04-16] MEDS: Furosemide 100 MG/10 ML VIAL 80 MG IVPUSH (15:13)
[2023-04-16] MEDS: Piperacillin Sodium/Tazobactam 4.5 GM in 0.9 % Sodium Chloride 100 ML IV (15:13)
--- NOTE | 2023-04-16 15:18 | PC.NURSE ---
on bipap. family at bedside. aware of plan for admission. skin pwd. calm. SB on monitor. no pedal edema.
--- NOTE | 2023-04-16 15:43 | PHA.MEDREC ---
Addendum entered by Nathanael Reyna 04/16/23 15:45: Leaving Creon off med rec since neither patient, daughter, or pharmacy can confirm patient is still taking the medication. Original Note: Pharmacy Consult ? Medication Reconciliation Pharmacy has completed the medication reconciliation. Spoke to patient's daughter to confirm meds using med box list and individual prescriptions. Called pharmacy to confirm. Patient has a RX for Creon 24,000, however both patient's daughter and pharmacy are unsure if patient is still taking. Per pharmacy, they are overdue for about a month now but unable to verify if it has been discontinued or not.
[2023-04-16] MEDS: vancomycin/NS 2,000 MG/500 ML PLAST..BAG 250 MG IV (15:56)
[2023-04-16 16:11] LABS: Glucose, Whole Blood 230 mg/dL (60-115)
--- NOTE | 2023-04-16 20:42 | P.HPHOSP_ITS ---
Patient seen examined, agree with JESUS ALBERTO findings, assessment and plan. Patient will be admitted for management of CHF superimposed with COPD. Management as below. For full H&P please see below History of Present Illness Date of Service: 04/16/23 Attending physician on admission: Elsie Delaney Chief Complaint: SOB Pt is a 78-year-old female with a PMH significant for?severe aortic stenosis, HFpEF (LVEF 60 to 65% on 07/2022), CAD, insulin-dependent diabetes type 2, HLD, HTN, COPD, spinal stenosis with neural claudication, and PAV with bilateral SFA occlusions who presents to the ED with?increasing SOB. Patient is Japanese- speaking only; motor vehicle parts interpreter services utilized. Patient was recently admitted 2 weeks prior to [facility] on 04/03 through 04/07/2023 and treated for acute CHF exacerbation in the setting of community-acquired pneumonia. Patient was evaluated by Pulmonary Rehab and sent home with only p.r.n. supplemental O2. Patient's daughter states that she was satting at 83-88% O2 at home despite being placed on 2 L supplemental O2, thus prompting called EMS. EMS placed patient on a non-rebreather. In the ED patient was transitioned to rescue BiPAP and then placed on 8 L OxyMask, satting at 93%. Patient states that she has been having difficulty breathing for the past 2 months with a ?burning? sensation in her throat and tongue. Has had a mostly nonproductive cough this past week. At that she feels a central discomfort in her chest with breathing when walking. Also has noticed increased swelling in her legs. And patient notes she has been unable to lay flat on her back for a ?very long time now? patient denies chest pain/pressure, palpitations. No fever, chills, nausea, vomiting, abdominal pain. Patient states she has been compliant with all of her medications, including her diuretics. She has noticed a decrease in appetite the past week. In the ED patient was afebrile, but tachypneic up to 27 in setting as low as 91 % O2 on 8 L OxyMask. Labs were significant for leukocytosis 22.4, microcytic anemia of 9.531.7, BUN of 40, creatinine of 1.68, glucose of 230, BNP 1975, troponin 48.0. Electrolytes WNL. Procalcitonin WNL at 0.05. VBG showed respiratory alkalosis with pH of 7.59. CXR showed likely multifocal pneumonia with increased bilateral pleural effusions. Chest CT showed widespread multifocal airspace opacities and crazy paving with moderate-sized pleural effusions, nonspecific findings that could represent a combination of an extensive infectious/inflammatory process with pulmonary edema. Also found cardiomegaly with extensive coronary artery calcifications. EKG demonstrated sinus bradycardia of 47 with no evidence of ST elevations or depressions. Pt was treated with furosemide 80mg, vanco and zosyn. Pt will be admitted to the hospital for treatment further evaluation of acute hypoxic respiratory failure in the setting of CHF and COPD exacerbations. Review of Systems Review of Systems: Increasing SOB Hypoxia Fatigue, generalized weakness Occasional nonproductive cough Lower leg edema Denies chest pain/pressure, palpitations No abdominal pain, fever, chills Yes all other systems are reviewed and are negative [facility] Medical History Aortic stenosis Asthma Back pain Chronic kidney disease CKD (chronic kidney disease) stage 3, GFR 30-59 ml/min Diabetic nephropathy associated with type 2 diabetes mellitus Diabetic polyneuropathy associated with type 2 diabetes mellitus Dyslipidemia Exocrine pancreatic insufficiency GERD (gastroesophageal reflux disease) HLD (hyperlipidemia) Hypertension Morbid obesity JOSE (obstructive sleep apnea) 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, acquired, right Thalamic pain syndrome Vitamin D deficiency Family History Sister History of renal pelvis cancer Father Suicide Mother Lung disease Diabetes mellitus Surgical History History of breast lump/mass excision History of cholecystectomy History of tubal ligation Social History Household Members: Family Housing: House Do you presently have visiting nurse or other home services: Yes (database tester) Alcohol intake: never Patient Tobacco Use Status: Former Tobacco user Tobacco use type: Cigarette Years Smoked: 5 years Smoked in Last 30 Days: No e-Cigarette/Vaping Use: Never Used Second Hand Smoke Exposure: No Use of substances other than those prescribed or required for medical reasons: No Advance Directives: No Advance Directives Information Provided: No service: No Current occupational status: unemployed and disabled Gender identity: Female Cognitive needs: Yes Hearing needs: No Vision needs: No Meds Allergies Allergy/AdvReac Type Severity Reaction Status Date / Time acetaminophen [From Percocet] Allergy Intermediate Itching Verified 04/14/23 11:49 ibuprofen [From Motrin] Allergy Intermediate High Blood Verified 04/14/23 11:49 Pressure, Rash oxycodone [From Percocet] Allergy Intermediate Itching Verified 04/14/23 11:49 Active Medications: Current Medications Enoxaparin Sodium (Enoxaparin Sodium 30 Mg/0.3 Ml Syringe) 30 mg SUBCUT Q24H HANANE Ondansetron HCl (Ondansetron Hcl 4 Mg/2 Ml Vial) 4 mg IVPUSH Q8H PRN PRN Reason: Nausea and Vomiting Pharmacy Consult (Consult Rx Perform Med Rec) 1 each MISCELLANE ONCE PRN PRN Reason: Consult order Sodium Chloride (0.9 % Sodium Chloride Flush 3 Ml Syringe) 3 ml IVFLUSH QSHIFT HANANE Home Medications Medication Instructions Recorded Confirmed Last Taken Type carvedilol 25 mg tablet 25 mg PO BID 01/18/21 04/16/23 04/15/23 History montelukast 10 mg tablet 10 mg PO BEDTIME 01/18/21 04/16/23 04/15/23 History gabapentin 300 mg capsule 300 mg PO BEDTIME 02/20/21 04/16/23 04/15/23 History folic acid 1 mg tablet 1 mg PO DAILY 08/21/21 04/16/23 04/15/23 History fluticasone propionate 50 1 spray intranasal DAILY PRN 06/18/22 04/16/23 10/10/22 History mcg/actuation nasal Allergy Symptoms spray,suspension blood-glucose meter (FreeStyle #1 ea 08/12/22 04/14/23 10/10/22 History [place] Lite kit) linagliptin 5 mg tablet (Tradjenta) 5 mg PO DAILY 10/10/22 04/16/23 04/15/23 History hydralazine 25 mg tablet 25 mg PO BID 11/13/22 04/16/23 04/15/23 History torsemide 20 mg tablet 20 mg PO BID@0900,1700 11/13/22 04/16/23 04/15/23 History insulin aspart U-100 100 unit/mL 1 sliding scale dose subcut TIDAC 04/04/2504/16/23 04/15/23 History (3 mL) subcutaneous pen (Novolog FlexPen U-100 Insulin aspart) Oxygen Home Use 03/15/23 04/14/23 Unknown History blood sugar diagnostic (FreeStyle 03/15/23 04/14/23 Unknown History Lite Strips) esomeprazole magnesium 40 mg 40 mg PO DAILY@0630 03/15/23 04/16/23 04/15/23 H istory capsule,delayed release calcium acetate 667 mg tablet 667 mg PO BID 04/16/23 04/16/23 04/15/23 History cyanocobalamin (vitamin B-12) 1,000 mcg PO DAILY 04/16/23 04/16/23 04/15/23 Hist ory 1,000 mcg tablet empagliflozin 10 mg tablet 10 mg PO DAILY 04/16/23 04/16/23 04/15/23 History (Jardiance) ferrous sulfate 325 mg (65 mg 325 mg PO DAILY 04/16/23 04/16/23 04/15/23 History iron) tablet,delayed release insulin glargine U-300 conc 300 32 unit subcut DAILY 04/16/23 04/16/23 04/15/23 History unit/mL (1.5 mL) subcutaneous pen (Toujeo SoloStar U-300 Insulin) polyethylene glycol 3350 17 17 g PO DAILY PRN Constipation 04/16/23 04/16/23 Unknown History gram/dose oral powder (ClearLax) tobramycin 0.3 %-dexamethasone 0.1 1 drp ophthalmic (eye) QID 04/16/23 04/16/23 04/15/23 History % eye drops,suspension Physical Exam Vital Signs and Narrative: Vital Signs: Last Vital Signs Temp 97.7 F 04/16/23 18:39 Pulse 62 04/16/23 18:39 Resp 25 H 04/16/23 18:39 BP 123/62 04/16/23 18:39 Pulse Ox 98 04/16/23 18:39 O2 Del Method Room Air 04/16/23 18:39 O2 Flow Rate 8 04/16/23 15:52 Oxygen Flow Rate 10 04/16/23 12:39 BMI result Body Mass Index 43.7 Constitutional: Alert, in mild respiratory distress. Mental Status: Oriented to person, place and time. Eyes: Pupils are equal, round, and reactive to light. Ear, Nose, and Throat: Oropharynx clear, mucous membranes moist. Ears and nose without deformities. Trachea midline. Respiratory: Expiratory wheezing, rhonchi in lower lobes. Cardiovascular: S1, S2 regular. No murmurs, rubs, or gallops. Gastrointestinal: Abdomen soft, non-tender, non-distended. Normal bowel sounds. Neurologic: Cranial nerves II-XII are grossly intact bilaterally. No focal neurological deficits. Moves all extremities spontaneously. Skin: No rashes or lesions noted. Musculoskeletal: No cyanosis or clubbing. Extremities: Trace bilateral lower leg edema. Psychiatric: Normal mood and affect. Results Labs 04/16/23 13:23 04/16/23 13:23 Labs: Laboratory Results - last 24 hr 04/16/23 04/16/23 04/16/23 13: 13:23 13:23 MCV 77.5 L MCH 23.2 L MCHC 30.0 L RDW 19.7 H Plt Count 382 MPV Not Reportable Immature Gran % (Auto) 0.8 H Neut % (Auto) 94.2 H Lymph % (Auto) 2.8 L [place] % (Auto) 2.0 Eos % (Auto) 0.0 Baso % (Auto) 0.2 Lymph # (Auto) 0.6 L [place] # (Auto) 0.5 Eos # (Auto) 0.0 Baso # (Auto) 0.0 Abs Immat Gran (auto) 0.18 H Absolute Neuts (auto) 21.1 H Absolute Nucleated RBC 0.020 H Nucleated RBC % (auto) 0.1 Smear Tech's Comments VERIFIED VBG pH VBG pCO2 VBG pO2 VBG HCO3 VBG O2 Saturation VBG Base Excess Anion Gap 17 Estim Creat Clear Calc 26.0 Estimated GFR 29 POC Glucose Random Glucose 252 H Lactic Acid 1.6 Calcium 10.3 H D Magnesium 2.8 H Total Bilirubin 1.6 H Direct Bilirubin 0.5 AST 16 ALT 15 Alkaline Phosphatase 144 H Troponin I High Sens B-Natriuretic Peptide Total Protein 8.1 H Albumin 3.5 Procalcitonin 0.05 COVID-19 ([facility]) COVID-19 Clin Com 04/16/23 04/16/23 04/16/23 13: 13:24 13:27 MCV MCH MCHC RDW Plt Count MPV Immature Gran % (Auto) Neut % (Auto) Lymph % (Auto) [place] % (Auto) Eos % (Auto) Baso % (Auto) Lymph # (Auto) [place] # (Auto) Eos # (Auto) Baso # (Auto) Abs Immat Gran (auto) Absolute Neuts (auto) Absolute Nucleated RBC Nucleated RBC % (auto) Smear Tech's Comments VBG pH 7.59 H VBG pCO2 26 VBG pO2 50 VBG HCO3 25 VBG O2 Saturation 88.0 VBG Base Excess 4.8 Anion Gap Estim Creat Clear Calc Estimated GFR POC Glucose Random Glucose Lactic Acid Calcium Magnesium Total Bilirubin Direct Bilirubin AST ALT Alkaline Phosphatase Troponin I High Sens B-Natriuretic Peptide 1975 H Total Protein Albumin Procalcitonin COVID-19 ([facility]ANCA) Negative COVID-19 Clin Com See Note 04/16/23 04/16/23 15:17 16:07 MCV MCH MCHC RDW Plt Count MPV Immature Gran % (Auto) Neut % (Auto) Lymph % (Auto) [place] % (Auto) Eos % (Auto) Baso % (Auto) Lymph # (Auto) [place] # (Auto) Eos # (Auto) Baso # (Auto) Abs Immat Gran (auto) Absolute Neuts (auto) Absolute Nucleated RBC Nucleated RBC % (auto) Smear Tech's Comments VBG pH VBG pCO2 VBG pO2 VBG HCO3 VBG O2 Saturation VBG Base Excess Anion Gap Estim Creat Clear Calc Estimated GFR POC Glucose 230 H Random Glucose Lactic Acid Calcium Magnesium Total Bilirubin Direct Bilirubin AST ALT Alkaline Phosphatase Troponin I High Sens 48.0 H B-Natriuretic Peptide Total Protein Albumin Procalcitonin COVID-19 ([facility]AN[facility]) COVID-19 Clin Com Imaging Radiologist's Impressions: Impressions Chest X-Ray 04/16/23 13:36 IMPRESSION: Multifocal pneumonia with increased bilateral pleural effusions. Chest CT 04/16/23 16:38 IMPRESSION: 1. Widespread multifocal airspace opacities and crazy paving with moderate size pleural effusions. Findings are nonspecific and could represent the combination of an extensive infectious/inflammatory process with pulmonary edema. Evaluation of pulmonary nodules is essentially nondiagnostic due to overlying airspace opacities, a short term follow-up chest CT is recommended. 2. Increased size and number of mediastinal lymph nodes, likely reactive. Continued follow-up recommended. 3. Cardiomegaly with extensive coronary artery calcifications. Correlation with cardiac risk factors is recommended. Assessment and Plan (1) Acute respiratory failure with hypoxia: Status: Acute (2) Acute exacerbation of CHF (congestive heart failure): Status: Acute (3) COPD (chronic obstructive pulmonary disease): Status: Acute Plan Pt is a 78-year-old female with a PMH significant for?severe aortic stenosis, HFpEF (LVEF 60 to 65% on 07/2022), CAD, insulin-dependent diabetes type 2, HLD, HTN, COPD, spinal stenosis with neural claudication, and PAV with bilateral SFA occlusions who presents to the ED with?increasing SOB. Pt will be admitted to the hospital for treatment further evaluation of acute hypoxic respiratory failure in the setting of CHF and COPD exacerbations. Acute hypoxic respiratory failure in the setting of HFpEF exacerbation Patient satting as low as low 80s on RA, placed on rescue BiPAP then [address] of chest found with moderate-sized pleural effusions, patient with increased SOB, lower leg edema, Patient received vanco and Zosyn in the ED to treat for possible pneumonia Patient admitted to [facility] 2 weeks prior and treated for pneumonia there Will hold off on additional antibiotics for now, procalcitonin 0.05 Furosemide 40 mg IV b.i.d. Follow lytes, mg, I/O Cardiology consult Monitor on telemetry COPD Patient with wheezing on exam, increased SOB, hypoxia, CT of chest with possible extensive inflammatory process Failed outpatient steroids, will give IV Solu-Medrol 40 mg b.i.d. DuoNebs Continue home inhalers Leukocytosis Likely secondary to prednisone use Less likely due to pneumonia, patient afebrile, nonproductive cough, was treated for pneumonia at [facility] 2 weeks prior, procalcitonin negative Iron deficiency anemia H&H seems stable Continue iron supplementation HTN Continue home meds CAD Continue aspirin, statin Insulin-dependent diabetes type 2 Sliding-scale insulin, Lantus Full Code Attending:?Dr. Bond DVT Prophylaxis: Lovenox Pt will require a hospitalization of at least two nights for treatment of?acute hypoxic respiratory failure in the setting of CHF and COPD exacerbations. Time Spent With Patient Time: Total time managing care of this patient today ____ minutes. Quality Stroke Does the patient have a stroke diagnosis?: No VTE Prior VTE?: No VTE Risk Level:: Medical - moderate - high VTE Device Contraindication: Treatment Not Indicated VTE Drug Contraindication: N/A - Med Ordered
[2023-04-16] MEDS: methylPREDNISolone Sod Succ 40 MG/ML VIAL IVPUSH (22:00)
[2023-04-16] MEDS: Montelukast Sodium 10 MG TABLET PO (22:00)
[2023-04-16] MEDS: carvediloL 25 MG TABLET PO (22:00)
[2023-04-16] MEDS: Aspirin Enteric Coated 81 MG TABLET.DR PO (22:00)
[2023-04-16] MEDS: hydrALAZINE HCl 25 MG TABLET PO (22:00)
[2023-04-16] MEDS: Gabapentin 300 MG CAPSULE PO (22:00)
[2023-04-16] MEDS: Atorvastatin Calcium 80 MG TABLET PO (22:00)
[2023-04-16] MEDS: Enoxaparin Sodium 30 MG/0.3 ML SYRINGE SUBCUT (22:01)
[2023-04-16 22:23] LABS: Glucose, Whole Blood 201 mg/dL (60-115)
--- NOTE | 2023-04-16 22:31 | MHC.EDTECH ---
Patient was incont of a extra large amount of urine,pt was cleaned and linen was changed. Replaced pt's purewick due to being displaced. Patient was repositioned to comfort and a POC was obtained at 201 RN Adama made aware
[2023-04-16 23:07] LABS: Troponin-I High Sensitivity 68.9 ng/L (<3.5-17.0)
[2023-04-17 00:38] VITALS: BP 117/55; PULSE 60; RESP 18; TEMP 36.2; O2SAT 96; BMI 43.7
[2023-04-17] MEDS: 0.9 % Sodium Chloride Flush 3 ML SYRINGE IVFLUSH ×2 (01:25→08:18)
[2023-04-17 03:27] VITALS: BP 131/69; PULSE 62; RESP 18; TEMP 36; O2SAT 92
[2023-04-17] MEDS: Omeprazole 20 MG CAPSULE.DR PO (06:11)
[2023-04-17 06:31] LABS: Hematocrit 28.3 % (37.0-47.0); Hemoglobin 8.7 g/dl (12.0-16.0); Mean Corpuscular HGB Conc 30.7 g/dl (31.0-35.0); Mean Corpuscular Hemoglobin 23.5 pg (27.0-33.0); Mean Corpuscular Volume 76.5 fL (80.0-98.0); Mean Platelet Volume 9.4 fL (9.4-12.3); Platelet Count 406 X10*3/uL (160-400); Red Cell Distribution Width 19.5 % (11.0-16.0); White Blood Count 15.1 X10*3/uL (4.8-10.8)
[2023-04-17 06:48] LABS: Anion Gap 16 (12-20); Blood Urea Nitrogen 44 mg/dL (9-16); Calcium 9.7 mg/dL (8.4-10.2); Carbon Dioxide 27 mmol/L (22-29); Chloride 104 mmol/L (96-108); Creatinine Clr Calc Pharmacy 25.2; Estimated Glomerular Filt Rate 28; Glucose Random 203 mg/dL (60-115); Magnesium 2.8 mg/dL (1.6-2.6); Sodium 143 mmol/L (135-145)
[2023-04-17 07:49] VITALS: BP 130/55; PULSE 63; RESP 16; TEMP 36.7; O2SAT 93
--- NOTE | 2023-04-17 07:58 | P.PNIM_ITS ---
Subjective Subjective Date of Service: 05/24/23 Interval History: f/u on acut hypoxic resp failure Doing much better today, less hypoxic Physical Exam Vital Signs: Vital Signs: Last Vital Signs Temp 98.1 F 04/17/23 07:49 Pulse 63 04/17/23 07:49 Resp 16 04/17/23 07:49 BP 130/55 L 04/17/23 07:49 Pulse Ox 93 04/17/23 07:49 O2 Del Method Oxymask 04/17/23 07:49 O2 Flow Rate 3 04/17/23 07:49 Oxygen Flow Rate 10 04/16/23 12:39 BMI result Body Mass Index 43.7 Const: Other: General: AO X 3, no acute distress Resp: no wheeze, some rales at bases, no accessrory muscle use CVS: S1,S2,RRR GI: +BS, NT, no distention Skin: No rash Neuro: motor grossly intact Psych: appropriate affect Objective Data Active Medications Albuterol/Ipratropium (Albuterol/Iprat 2.5/0.5mg 3 Ml Ampul.Neb) 3 ml INHALE RQ4H WHILE AWAKE [facility] Amlodipine Besylate (Amlodipine Besylate 10 Mg Tablet) 10 mg PO DAILY [facility]; Protocol Aspirin (Aspirin Enteric Coated 81 Mg Tablet.) 81 mg PO BEDTIME [facility] Last Admin: 04/16/23 22:00 Dose: 81 mg Documented By: CK Atorvastatin Calcium (Atorvastatin Calcium 80 Mg Tablet) 80 mg PO BEDTIME [facility] Last Admin: 04/16/23 22:00 Dose: 80 mg Documented By: CK Carvedilol (Carvedilol 25 Mg Tablet) 25 mg PO BID [facility]; Protocol Last Admin: 04/16/23 22:00 Dose: 25 mg Documented By: CK Cyanocobalamin (Cyanocobalamin (Vitamin B-12) 1,000 Mcg Tablet) 1,000 mcg PO DAILY [facility] Dextrose (Dextrose 50 % 25 Gm/50 Ml Syringe) 25 gm IVPUSH Q15M PRN; Protocol PRN Reason: per Hypoglycemia Standing Ord. Empagliflozin (Empagliflozin 10 Mg Tablet) 10 mg PO DAILY [facility] Enoxaparin Sodium (Enoxaparin Sodium 30 Mg/0.3 Ml Syringe) 30 mg SUBCUT Q24H [facility] Last Admin: 04/16/23 22:01 Dose: 30 mg Documented By: CK Ferrous Sulfate (Ferrous Sulfate 324 Mg Tablet.) 324 mg PO DAILY [facility] Fluticasone Propionate (Fluticasone Propionate Nasal 16 Gm Butler) 1 spray NOSTRIL-B DAILY PRN PRN Reason: Allergy Symptoms Fluticasone/Umeclidinium/Vilanterol (Fluticasone/Umeclidinium/Vilanterol 100/62.5/25 Blst.W.Dev) 1 puff INHALE RDAILY [facility] Folic Acid (Folic Acid 1 Mg Tablet) 1 mg PO DAILY [facility] Furosemide (Furosemide 40 Mg/4 Ml Vial) 40 mg IVPUSH BID@0900,1800 [facility]; Protocol Gabapentin (Gabapentin 300 Mg Capsule) 300 mg PO BEDTIME [facility] Last Admin: 04/16/23 22:00 Dose: 300 mg Documented By: CK Glucose (Glucose Gel 15 Gm Gel..Gram.) 15 gm PO Q15M PRN; Protocol PRN Reason: per Hypoglycemia Standing Ord. Hydralazine HCl (Hydralazine Hcl 25 Mg Tablet) 25 mg PO BID [facility]; Protocol Last Admin: 04/16/23 22:00 Dose: 25 mg Documented By: CK Insulin Glargine (Insulin Glargine,Hum.Rec.Anlog 100 Unit/Ml 10 Ml Vial) 22 unit SUBCUT DAILY [facility] Insulin Human Lispro (Insulin Lispro 100 Unit/Ml 3 Ml Vial) 0 unit SUBCUT QIDACHS [facility]; Protocol Methylprednisolone Sodium Succinate (Methylprednisolone Sod Succ 40 Mg/Ml Vial) 40 mg IVPUSH Q12H [facility] Last Admin: 04/16/23 22:00 Dose: 40 mg Documented By: CK Montelukast Sodium (Montelukast Sodium 10 Mg Tablet) 10 mg PO BEDTIME [facility] Last Admin: 04/16/23 22:00 Dose: 10 mg Documented By: CK Pt Own (Tobramycin- Dexamethasone 0.3-0. 1 % Drops,Suspension ) 1 drop EYE-BOTH QID [facility] Last Admin: 04/16/23 22:37 Dose: 1 drop Documented By: CK Omeprazole (Omeprazole 20 Mg Capsule.) 20 mg PO DAILY@0630 [facility] Last Admin: 04/17/23 06:11 Dose: 20 mg Documented By: ANNETTA Ondansetron HCl (Ondansetron Hcl 4 Mg/2 Ml Vial) 4 mg IVPUSH Q8H PRN PRN Reason: Nausea and Vomiting Pharmacy Consult (Consult Rx Perform Med Rec) 1 each MISCELLANE ONCE PRN PRN Reason: Consult order Polyethylene Glycol (Polyethylene Glycol 3350 17 Gm Powd.Pack) 17 gm PO DAILY PRN PRN Reason: Constipation Sodium Chloride (0.9 % Sodium Chloride Flush 3 Ml Syringe) [facility] Admin: 04/17/23 01:25 Dose: 3 ml Documented By: ANNETTA Labs 04/17/23 06:04 04/17/23 06:04 Labs: Laboratory Results - last 24 hr 04/16/23 04/16/23 04/16/23 13:23 13:23 13:23 MCV 77.5 L MCH 23.2 L MCHC 30.0 L RDW 19.7 H Plt Count 382 MPV Not Reportable Immature Gran % (Auto) 0.8 H Neut % (Auto) 94.2 H Lymph % (Auto) 2.8 L [place] % (Auto) 2.0 Eos % (Auto) 0.0 Baso % (Auto) 0.2 Lymph # (Auto) 0.6 L [place] # (Auto) 0.5 Eos # (Auto) 0.0 Baso # (Auto) 0.0 Abs Immat Gran (auto) 0.18 H Absolute Neuts (auto) 21.1 H Absolute Nucleated RBC 0.020 H Nucleated RBC % (auto) 0.1 Smear Tech's Comments VERIFIED VBG pH VBG pCO2 VBG pO2 VBG HCO3 VBG O2 Saturation VBG Base Excess Anion Gap 17 Estim Creat Clear Calc 26.0 Estimated GFR 29 POC Glucose Random Glucose 252 H Lactic Acid 1.6 Calcium 10.3 H D Magnesium 2.8 H Total Bilirubin 1.6 H Direct Bilirubin 0.5 AST 16 ALT 15 Alkaline Phosphatase 144 H Troponin I High Sens B-Natriuretic Peptide Total Protein 8.1 H Albumin 3.5 Procalcitonin 0.05 COVID-19 ([facility]) COVID-19 Clin Com 04/16/23 04/16/23 04/16/23 13:23 13:24 13:27 MCV MCH MCHC RDW Plt Count MPV Immature Gran % (Auto) Neut % (Auto) Lymph % (Auto) [place] % (Auto) Eos % (Auto) Baso % (Auto) Lymph # (Auto) [place] # (Auto) Eos # (Auto) Baso # (Auto) Abs Immat Gran (auto) Absolute Neuts (auto) Absolute Nucleated RBC Nucleated RBC % (auto) Smear Tech's Comments VBG pH 7.59 H VBG pCO2 26 VBG pO2 50 VBG HCO3 25 VBG O2 Saturation 88.0 VBG Base Excess 4.8 Anion Gap Estim Creat Clear Calc Estimated GFR POC Glucose Random Glucose Lactic Acid Calcium Magnesium Total Bilirubin Direct Bilirubin AST ALT Alkaline Phosphatase Troponin I High Sens B-Natriuretic Peptide 1975 H Total Protein Albumin Procalcitonin COVID-19 ([facility]) Negative COVID-19 Clin Com See Note 04/16/23 04/16/23 04/16/23 15:17 16:07 21:12 MCV MCH MCHC RDW Plt Count MPV Immature Gran % (Auto) Neut % (Auto) Lymph % (Auto) [place] % (Auto) Eos % (Auto) Baso % (Auto) Lymph # (Auto) [place] # (Auto) Eos # (Auto) Baso # (Auto) Abs Immat Gran (auto) Absolute Neuts (auto) Absolute Nucleated RBC Nucleated RBC % (auto) Smear Tech's Comments VBG pH VBG pCO2 VBG pO2 VBG HCO3 VBG O2 Saturation VBG Base Excess Anion Gap Estim Creat Clear Calc Estimated GFR POC Glucose 230 H Random Glucose Lactic Acid Calcium Magnesium Total Bilirubin Direct Bilirubin AST ALT Alkaline Phosphatase Troponin I High Sens 48.0 H 68.9 H* B-Natriuretic Peptide Total Protein Albumin Procalcitonin COVID-19 ([facility]) COVID-Melon 04/16/23 04/17/23 04/17/23 22:19 06:04 06:04 MCV 76.5 L MCH 23.5 L MCHC 30.7 L RDW 19.5 H Plt Count 406 H MPV 9.4 Immature Gran % (Auto) Neut % (Auto) Lymph % (Auto) [place] % (Auto) Eos % (Auto) Baso % (Auto) Lymph # (Auto) [place] # (Auto) Eos # (Auto) Baso # (Auto) Abs Immat Gran (auto) Absolute Neuts (auto) Absolute Nucleated RBC 0.000 Nucleated RBC % (auto) 0.0 Smear Tech's Comments VBG pH VBG pCO2 VBG pO2 VBG HCO3 VBG O2 Saturation VBG Base Excess Anion Gap 16 Estim Creat Clear Calc 25.2 Estimated GFR 28 POC Glucose 201 H Random Glucose 203 H Lactic Acid Calcium 9.7 Magnesium 2.8 H Total Bilirubin Direct Bilirubin AST ALT Alkaline Phosphatase Troponin I High Sens B-Natriuretic Peptide Total Protein Albumin Procalcitonin COVID-19 ([facility]) COVID-19 Clin Com Assessment and Plan (1) Pneumonia: Status: Acute Plan Pt is a 78-year-old female with a PMH significant for?severe aortic stenosis, HFpEF (LVEF 60 to 65% on 07/2022), CAD, insulin-dependent diabetes type 2, HLD, HTN, COPD on 2 lits of O2 at home, , spinal stenosis with neural claudication, and PAV with bilateral SFA occlusions who presents to the ED with?increasing SOB and found to have acute hypoxic resp failure likely d/t copd ex, chf and pneumonia Acute on chronic hypoxic respiratory failure d/t copd, chf and pneumonia. she required rescue bipap but is much better now, on home O2 at 2 liters Pneumonia--WBC better following Zosyn and Vanco in ED . Will continue Abx with Ceftriaxone04/17 Pulmonology consult for extensive finding on CT nature of which is unclear to me HFpEF exacerbation--IV Lasix, cardiology consult, monitor I/O, electrolytes COPD-exacerbation, better recently treated with Prednisone, continue bronchodilators + IV steroid, on 2 liters at baseline Leukocytosis--i don't believe all due to prior steroid, probably component of PNA and has come down following Abx () Iron deficiency anemia H&H seems stable Continue iron supplementation HTN Continue home meds CAD Continue aspirin, statin Insulin-dependent diabetes type 2 Sliding-scale insulin, Lantus Full Code Attending:?Dr. Bond DVT Prophylaxis: Lovenox need for inpt: PNA need iv abx, chf ex on iv diurettics, and copd exa cerbation on sterois Time Spent With Patient Time: Total time managing care of this patient today ____ minutes. Quality Stroke Does the patient have a stroke diagnosis?: No VTE Prior VTE?: No VTE Risk Level:: Medical - moderate - high VTE Device Contraindication: Treatment Not Indicated VTE Drug Contraindication: N/A - Med Ordered
[2023-04-17 08:13] LABS: Glucose, Whole Blood 232 mg/dL (60-115)
[2023-04-17] MEDS: Furosemide 40 MG/4 ML VIAL IVPUSH (08:17)
[2023-04-17] MEDS: methylPREDNISolone Sod Succ 40 MG/ML VIAL IVPUSH (08:17)
[2023-04-17] MEDS: Folic Acid 1 MG TABLET PO (08:17)
[2023-04-17] MEDS: carvediloL 25 MG TABLET PO (08:18)
[2023-04-17] MEDS: Insulin Lispro 100 UNIT/ML 3 ML VIAL SUBCUT ×2 (08:18→12:22)
[2023-04-17] MEDS: Insulin Glargine,Hum.rec.anlog 100 UNIT/ML 10 ML VIAL 22 UNIT SUBCUT (08:18)
[2023-04-17] MEDS: amLODIPine Besylate 10 MG TABLET PO (08:18)
[2023-04-17] MEDS: Ferrous Sulfate 324 MG TABLET.DR PO (08:18)
[2023-04-17] MEDS: Empagliflozin 10 MG TABLET PO (08:18)
[2023-04-17] MEDS: Albuterol/Iprat 2.5/0.5MG 3 ML AMPUL.NEB INHALE ×2 (08:53→11:26)
[2023-04-17 08:55] VITALS: PULSE 63; RESP 20; O2SAT 93
--- NOTE | 2023-04-17 10:13 | MHC.CM.PN ---
CM spoke with Daughter/HCP/Vero @ [phone] and addressed IMM with her (original will be mailed certified letter to Vero and a copy has been placed on the chart). Patient lives on the first floor of a 2 family house with her and Vero lives on the second floor. Patient is active with [facility] and she receives [employer] hours/week. Home/resume said services is the goal and CM has initiated and will follow for dc planning. PCP is Dr. Shelby Vital and Patient is not Covid everett'james.
--- NOTE | 2023-04-17 10:19 | MHC.CM.PN ---
Patient's home O2 is supplied by [employer].
[2023-04-17] MEDS: hydrALAZINE HCl 25 MG TABLET PO (10:27)
[2023-04-17] MEDS: cefTRIAXone sodium 1 GM in 0.9 % Sodium Chloride 50 ML IV (10:45)
[2023-04-17] MEDS: Cyanocobalamin (Vitamin B-12) 1,000 MCG TABLET 1000 MCG PO (11:22)
[2023-04-17 11:27] VITALS: PULSE 63; RESP 20; O2SAT 95
[2023-04-17 11:42] LABS: Glucose, Whole Blood 267 mg/dL (60-115)
[2023-04-17 12:00] VITALS: BP 134/67; PULSE 64; RESP 19; TEMP 36.6; O2SAT 93
--- NOTE | 2023-04-17 13:23 | P.CONCA_ITS ---
History of Present Illness History of Present Illness Date of Service: 04/17/23 Requesting physician: [facility] Consult reason: congestive heart failure, aortic stenosis and other Chief complaint: Hypoxia,CHF exacerbation Narrative: I was consulted to see this patient for acute congestive heart failure respiratory failure in the setting of severe aortic stenosis. Patient last echocardiogram in the system in February which had shown LV ejection fraction of 65% with severe aortic stenosis with valve area of 0.52 with mean gradient of 57 mmHg, generally follows with Dr. Sutherland. History was obtained with help of squeezer operator. It seems like she is in the process of evaluation for transcatheter aortic valve replacement. She was recently admitted to [facility] about 2 weeks ago with acute congestive heart failure. Was felt does was induced by pneumonia. Patient has underlying COPD, morbid obesity, CAD, insulin-requiring diabetes, chronic kidney disease, spinal stenosis as well as PVD with bilateral SFA occlusion. Patient came to the hospital with worsening shortness of breath and leg edema and was noted to be in acute respiratory distress placed on non-rebreather by the EMS. In the ED patient was switched to rescue BiPAP and later to 8 L OxyMask. Oxygenation improved. She has difficulty breathing along with burning sensation in her throat and tongue. She also has exertional shortness of breath and chest discomfort when she walks. She says she feels better compared to yesterday but still using OxyMask and mildly hypoxic. But she says her breathing has improved somewhat. She is not having any significant chest pain. BNP this time was 1975. Her last BNP was in the 500 range. Chest x-ray consistent with multifocal airspace disease with bilateral pleural effusion. Cardiology consult was called because of her acute presentation as well as severe aortic stenosis. Extensive family members were present at bedside. He also showed appropriate concern for her health. Review of Systems Constitutional: Constitutional: Reports no additional constitutional complaints Cardiovascular: Cardiovascular: Reports chest pain with activity, Denies rapid heart rate, Reports leg edema, Denies lightheadedness, Denies Loss of Consciousness, Reports dyspnea on exertion and Reports orthopnea Respiratory: Respiratory: Reports no additional respiratory complaints and Reports dyspnea on exertion Gastrointestinal: Gastrointestinal: Reports no additional gastrointestinal complaints Musculoskeletal: Musculoskeletal: Reports no additional musculoskeletal complaints Neurologic: Reports system reviewed and no additional complaints, except as documented Psychiatric: Psychiatric: Reports no additional psychiatric complaints Endocrine: Endocrine: Reports no additional endocrine complaints Allergic/Immunologic: Allergic/Immunologic: Reports no additional allergic/immunologic complaints [facility] Past Medical History Medical History Aortic stenosis Asthma Back pain Chronic kidney disease CKD (chronic kidney disease) stage 3, GFR 30-59 ml/min Diabetic nephropathy associated with type 2 diabetes mellitus Diabetic polyneuropathy associated with type 2 diabetes mellitus Dyslipidemia Exocrine pancreatic insufficiency GERD (gastroesophageal reflux disease) HLD (hyperlipidemia) Hypertension Morbid obesity JOSE (obstructive sleep apnea) 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, acquired, right Thalamic pain syndrome Vitamin D deficiency Family History Family History Sister History of renal pelvis cancer Father Suicide Mother Lung disease Diabetes mellitus Surgical History Surgical History History of breast lump/mass excision History of cholecystectomy History of tubal ligation Social History Social History Household Members: Family Housing: House Do you presently have visiting nurse or other home services: Yes (ore roaster) Alcohol intake: never Patient Tobacco Use Status: Former Tobacco user Tobacco use type: Cigarette Years Smoked: 5 years Smoked in Last 30 Days: No e-Cigarette/Vaping Use: Never Used Second Hand Smoke Exposure: No Use of substances other than those prescribed or required for medical reasons: No Currently Displaying Signs/Symptoms of Drug Intoxication Withdrawal: No Have you been hit, kicked, punched, or otherwise hurt by someone within the past year? If so, by whom?: No Is there a partner from a previous relationship who is making you feel unsafe now?: No Are you made to feel afraid or neglected: No Advance Directives: No Advance Directives Information Provided: No Do you have thoughts of harming others: None Do you have a plan to hurt others: No Plan Recently lost weight without trying: No Eating poorly because of decreased appetite: No Nutrition Risks: No Nutritional Risk and Dental problems Patient : No : No service: No Current occupational status: unemployed and disabled Gender identity: Female Cognitive needs: Yes Hearing needs: No Vision needs: No Meds Allergies Allergy/AdvReac Type Severity Reaction Status Date / Time acetaminophen [From Percocet] Allergy Intermediate Itching Verified 04/14/23 11:49 ibuprofen [From Motrin] Allergy Intermediate High Blood Verified 04/14/23 11:49 Pressure, Rash oxycodone [From Percocet] Allergy Intermediate Itching Verified 04/14/23 11:49 Active Medications: Current Medications Albuterol/Ipratropium (Albuterol/Iprat 2.5/0.5mg 3 Ml Ampul.Neb) 3 ml INHALE RQ4H WHILE AWAKE [facility] Last Admin: 04/17/23 11:26 Dose: 3 ml Amlodipine Besylate (Amlodipine Besylate 10 Mg Tablet) 10 mg PO DAILY [facility]; Protocol Last Admin: 04/17/23 08:18 Dose: 10 mg Aspirin (Aspirin Enteric Coated 81 Mg Tablet.) 81 mg PO BEDTIME [facility] Last Admin: 04/16/23 22:00 Dose: 81 mg Atorvastatin Calcium (Atorvastatin Calcium 80 Mg Tablet) 80 mg PO BEDTIME [facility] Last Admin: 04/16/23 22:00 Dose: 80 mg Carvedilol (Carvedilol 25 Mg Tablet) 25 mg PO BID [facility]; Protocol Last Admin: 04/17/23 08:18 Dose: 25 mg Cyanocobalamin (Cyanocobalamin (Vitamin B-12) 1,000 Mcg Tablet) 1,000 mcg PO DAILY [facility] Last Admin: 04/17/23 11:22 Dose: 1,000 mcg Dextrose (Dextrose 50 % 25 Gm/50 Ml Syringe) 25 gm IVPUSH Q15M PRN; Protocol PRN Reason: per Hypoglycemia Standing Ord. Empagliflozin (Empagliflozin 10 Mg Tablet) 10 mg PO DAILY [facility] Last Admin: 04/17/23 08:18 Dose: 10 mg Enoxaparin Sodium (Enoxaparin Sodium 30 Mg/0.3 Ml Syringe) 30 mg SUBCUT Q24H [facility] Last Admin: 04/16/23 22:01 Dose: 30 mg Ferrous Sulfate (Ferrous Sulfate 324 Mg Tablet.) 324 mg PO DAILY [facility] Last Admin: 04/17/23 08:18 Dose: 324 mg Fluticasone Propionate (Fluticasone Propionate Nasal 16 Gm [place]) 1 spray NOSTRIL-B DAILY PRN PRN Reason: Allergy Symptoms Fluticasone/Umeclidinium/Vilanterol (Fluticasone/Umeclidinium/Vilanterol 100/62.5/25 Blst.W.Dev) 1 puff INHALE RDAILY [facility] Last Admin: 04/17/23 08:54 Dose: Not Given Folic Acid (Folic Acid 1 Mg Tablet) 1 mg PO DAILY [facility] Last Admin: 04/17/23 08:17 Dose: 1 mg Furosemide (Furosemide 40 Mg/4 Ml Vial) 40 mg IVPUSH BID@0900,1800 [facility]; Protocol Last Admin: 04/17/23 08:17 Dose: 40 mg Gabapentin (Gabapentin 300 Mg Capsule) 300 mg PO BEDTIME [facility] Last Admin: 04/16/23 22:00 Dose: 300 mg Glucose (Glucose Gel 15 Gm Gel..Gram.) 15 gm PO Q15M PRN; Protocol PRN Reason: per Hypoglycemia Standing Ord. Hydralazine HCl (Hydralazine Hcl 25 Mg Tablet) 25 mg PO BID [facility]; Protocol Last Admin: 04/17/23 10:27 Dose: 25 mg Ceftriaxone Sodium 1 gm/ (Sodium Chloride) 50 mls @ 100 mls/hr IV Q24H [facility] Last Infusion: 04/17/23 11:26 Dose: Infused Insulin Glargine (Insulin Glargine,Hum.Rec.Anlog 100 Unit/Ml 10 Ml Vial) 22 unit SUBCUT DAILY [facility] Last Admin: 04/17/23 08:18 Dose: 22 unit Insulin Human Lispro (Insulin Lispro 100 Unit/Ml 3 Ml Vial) 0 unit SUBCUT QIDACHS [facility]; Protocol Last Admin: 04/17/23 12:22 Dose: 1 unit Methylprednisolone Sodium Succinate (Methylprednisolone Sod Succ 40 Mg/Ml Vial) 40 mg IVPUSH Q12H [facility] Last Admin: 04/17/23 08:17 Dose: 40 mg Montelukast Sodium (Montelukast Sodium 10 Mg Tablet) 10 mg PO BEDTIME [facility] Last Admin: 04/16/23 22:00 Dose: 10 mg Pt Own (Tobramycin- Dexamethasone 0.3-0. 1 % Drops,Suspension ) 1 drop EYE-BOTH QID [facility] Last Admin: 04/17/23 10:45 Dose: 1 drop Omeprazole (Omeprazole 20 Mg Capsule.Dr) 20 mg PO DAILY@0630 [facility] Last Admin: 04/17/23 06:11 Dose: 20 mg Ondansetron HCl (Ondansetron Hcl 4 Mg/2 Ml Vial) 4 mg IVPUSH Q8H PRN PRN Reason: Nausea and Vomiting Pharmacy Consult (Consult Rx Perform Med Rec) 1 each MISCELLANE ONCE PRN PRN Reason: Consult order Polyethylene Glycol (Polyethylene Glycol 3350 17 Gm Powd.Pack) 17 gm PO DAILY PRN PRN Reason: Constipation Sodium Chloride (0.9 % Sodium Chloride Flush 3 Ml Syringe) [address] [facility] Last Admin: 04/17/23 08:18 Dose: 3 ml Home Medications Medication Instructions Recorded Confirmed Last Taken Type carvedilol 25 mg tablet 25 mg PO BID 01/18/21 04/16/23 04/15/23 History montelukast 10 mg tablet 10 mg PO BEDTIME 01/18/21 04/16/23 04/15/23 History folic acid 1 mg tablet 1 mg PO DAILY 08/21/21 04/16/23 04/15/23 History fluticasone propionate 50 1 spray intranasal DAILY PRN 06/18/22 04/16/23 10/10/22 History mcg/actuation nasal Allergy Symptoms spray,suspension blood-glucose meter (Vitaldentyle #1 ea 08/12/22 04/14/23 10/10/22 History Meadow Lite kit) linagliptin 5 mg tablet (Tradjenta) 5 mg PO DAILY 10/10/22 04/16/23 04/15/23 History hydralazine 25 mg tablet 25 mg PO BID 11/13/22 04/16/23 04/15/23 History torsemide 20 mg tablet 20 mg PO BID@0900,1700 11/13/22 04/16/23 04/15/23 History insulin aspart U-100 100 unit/mL 1 sliding scale dose subcut TIDAC 01/08/23 04/16/23 04/15/23 History (3 mL) subcutaneous pen (Novolog FlexPen U-100 Insulin aspart) Oxygen Home Use 03/15/23 04/14/23 Unknown History blood sugar diagnostic (FreeStyle 03/15/23 04/14/23 Unknown History Lite Strips) esomeprazole magnesium 40 mg 40 mg PO DAILY@0630 03/15/23 04/16/23 04/15/23 History capsule,delayed release calcium acetate 667 mg tablet 667 mg PO BID 04/16/23 04/16/23 04/15/23 History cyanocobalamin (vitamin B-12) 1,000 mcg PO DAILY 04/16/23 04/16/23 04/15/23 History 1,000 mcg tablet empagliflozin 10 mg tablet 10 mg PO DAILY 04/16/23 04/16/23 04/15/23 History (Jardiance) ferrous sulfate 325 mg (65 mg 325 mg PO DAILY 04/16/23 04/16/23 04/15/23 History iron) tablet,delayed release insulin glargine U-300 conc 300 32 unit subcut DAILY 04/16/23 04/16/23 04/15/23 History unit/mL (1.5 mL) subcutaneous pen (Toujeo SoloStar U-300 Insulin) polyethylene glycol 3350 17 17 g PO DAILY PRN Constipation 04/16/23 04/16/23 Unknown History gram/dose oral powder (ClearLax) tobramycin 0.3 %-dexamethasone 0.1 1 drp ophthalmic (eye) QID 04/16/23 04/16/23 04/15/23 History % eye drops,suspension Physical Exam Vital Signs: Vital Signs: Last Vital Signs Temp 98 F 04/17/23 12:00 Pulse 64 04/17/23 12:00 Resp 19 04/17/23 12:00 BP 134/67 04/17/23 12:00 Pulse Ox 93 04/17/23 12:00 O2 Del Method Oxymask 04/17/23 12:00 O2 Flow Rate 2.5 04/17/23 12:00 Oxygen Flow Rate 10 04/16/23 12:39 BMI result Body Mass Index 43.7 Const: General: cooperative, alert, awake and in distress moderate and respiratory Nutritional Appearance: obese Orientation/consciousness: patient oriented x3 HEENT: Head: Yes normocephalic and Yes atraumatic Neck: Neck: Yes trachea midline, Yes supple and Yes JVD Resp: Effort & Inspection: normal respiratory effort Auscultation: rales bilateral 1/[address] up and breath sounds absent bilateral (Bases) Cardio: Jugular venous distension: JVD Rate: regular rate Rhythm: regul ar rhythm Heart sounds: S1 normal heart sound present, no click, no gallops and Murmur heart sound present systolic late, decrescendo, crescendo and harsh GI: Inspection: Yes obesity Auscultation: normal bowel sounds Skin: General skin exam: no rashes or lesions noted Neuro: General: patient oriented x3 and no focal motor deficits Extrem: General: No clubbing, No cyanosis and Yes edema Objective Labs and Meds 04/17/23 06:04 04/17/23 06:04 Lab results: Laboratory Results - last 24 hr 04/16/23 04/16/23 04/16/23 13:23 13:23 13:23 WBC 22.4 H RBC 4.09 L D Hgb 9.5 L D Hct 31.7 L MCV 77.5 L MCH 23.2 L MCHC 30.0 L RDW 19.7 H Plt Count 382 MPV Not Reportable Immature Gran % (Auto) 0.8 H Neut % (Auto) 94.2 H Lymph % (Auto) 2.8 L Gilchrist % (Auto) 2.0 Eos % (Auto) 0.0 Baso % (Auto) 0.2 Lymph # (Auto) 0.6 L Gilchrist # (Auto) 0.5 Eos # (Auto) 0.0 Baso # (Auto) 0.0 Abs Immat Gran (auto) 0.18 H Absolute Neuts (auto) 21.1 H Absolute Nucleated RBC 0.020 H Nucleated RBC % (auto) 0.1 Smear Tech's Comments VERIFIED VBG pH VBG pCO2 VBG pO2 VBG HCO3 VBG O2 Saturation VBG Base Excess Sodium 138 Potassium 4.1 Chloride 102 Carbon Dioxide 23 Anion Gap 17 BUN 40 H Creatinine 1.68 H Estim Creat Clear Calc 26.0 Estimated GFR 29 POC Glucose Random Glucose 252 H Lactic Acid 1.6 Calcium 10.3 H D Magnesium 2.8 H Total Bilirubin 1.6 H Direct Bilirubin 0.5 AST 16 ALT 15 Alkaline Phosphatase 144 H Troponin I High Sens B-Natriuretic Peptide Total Protein 8.1 H Albumin 3.5 Procalcitonin 0.05 COVID-19 ([facility]) COVID-19 Clin Com 04/16/23 04/16/23 04/16/23 13:23 13:24 13:27 WBC RBC Hgb Hct MCV MCH MCHC RDW Plt Count MPV Immature Gran % (Auto) Neut % (Auto) Lymph % (Auto) Gilchrist % (Auto) Eos % (Auto) Baso % (Auto) Lymph # (Auto) Gilchrist # (Auto) Eos # (Auto) Baso # (Auto) Abs Immat Gran (auto) Absolute Neuts (auto) Absolute Nucleated RBC Nucleated RBC % (auto) Smear Tech's Comments VBG pH 7.59 H VBG pCO2 26 VBG pO2 50 VBG HCO3 25 VBG O2 Saturation 88.0 VBG Base Excess 4.8 Sodium Potassium Chloride Carbon Dioxide Anion Gap BUN Creatinine Estim Creat Clear Calc Estimated GFR POC Glucose Random Glucose Lactic Acid Calcium Magnesium Total Bilirubin Direct Bilirubin AST ALT Alkaline Phosphatase Troponin I High Sens B-Natriuretic Peptide 1975 H Total Protein Albumin Procalcitonin COVID-19 ([facility]) Negative COVID-19 Clin Com See Note 04/16/23 04/16/23 04/16/23 15:17 16:07 21:12 WBC RBC Hgb Hct MCV MCH MCHC RDW Plt Count MPV Immature Gran % (Auto) Neut % (Auto) Lymph % (Auto) Gilchrist % (Auto) Eos % (Auto) Baso % (Auto) Lymph # (Auto) Gilchrist # (Auto) Eos # (Auto) Baso # (Auto) Abs Immat Gran (auto) Absolute Neuts (auto) Absolute Nucleated RBC Nucleated RBC % (auto) Smear Tech's Comments VBG pH VBG pCO2 VBG pO2 VBG HCO3 VBG O2 Saturation VBG Base Excess Sodium Potassium Chloride Carbon Dioxide Anion Gap BUN Creatinine Estim Creat Clear Calc Estimated GFR POC Glucose 230 H Random Glucose Lactic Acid Calcium Magnesium Total Bilirubin Direct Bilirubin AST ALT Alkaline Phosphatase Troponin I High Sens 48.0 H 68.9 H* B-Natriuretic Peptide Total Protein Albumin Procalcitonin COVID-19 ([facility]) COVID-19 Clin Com 04/16/23 04/17/23 04/17/23 22:19 06:04 06:04 WBC 15.1 H RBC 3.70 L Hgb 8.7 L Hct 28.3 L MCV 76.5 L MCH 23.5 L MCHC 30.7 L RDW 19.5 H Plt Count 406 H MPV 9.4 Immature Gran % (Auto) Neut % (Auto) Lymph % (Auto) Gilchrist % (Auto) Eos % (Auto) Baso % (Auto) Lymph # (Auto) Gilchrist # (Auto) Eos # (Auto) Baso # (Auto) Abs Immat Gran (auto) Absolute Neuts (auto) Absolute Nucleated RBC 0.000 Nucleated RBC % (auto) 0.0 Smear Tech's Comments VBG pH VBG pCO2 VBG pO2 VBG HCO3 VBG O2 Saturation VBG Base Excess Sodium 143 Potassium 4.0 Chloride 104 Carbon Dioxide 27 Anion Gap 16 BUN 44 H Creatinine 1.73 H Estim Creat Clear Calc 25.2 Estimated GFR 28 POC Glucose 201 H Random Glucose 203 H Lactic Acid Calcium 9.7 Magnesium 2.8 H Total Bilirubin Direct Bilirubin AST ALT Alkaline Phosphatase Troponin I High Sens B-Natriuretic Peptide Total Protein Albumin Procalcitonin COVID-19 ([facility]) COVID-19 Clin Com 04/17/23 04/17/23 08:10 11:23 WBC RBC Hgb Hct MCV MCH MCHC RDW Plt Count MPV Immature Gran % (Auto) Neut % (Auto) Lymph % (Auto) Gilchrist % (Auto) Eos % (Auto) Baso % (Auto) Lymph # (Auto) Gilchrist # (Auto) Eos # (Auto) Baso # (Auto) Abs Immat Gran (auto) Absolute Neuts (auto) Absolute Nucleated RBC Nucleated RBC % (auto) Smear Tech's Comments VBG pH VBG pCO2 VBG pO2 VBG HCO3 VBG O2 Saturation VBG Base Excess Sodium Potassium Chloride Carbon Dioxide Anion Gap BUN Creatinine Estim Creat Clear Calc Estimated GFR POC Glucose 232 H 267 H Random Glucose Lactic Acid Calcium Magnesium Total Bilirubin Direct Bilirubin AST ALT Alkaline Phosphatase Troponin I High Sens B-Natriuretic Peptide Total Protein Albumin Procalcitonin COVID-19 ([facility]) COVID-19 Clin Com EKG shows sinus bradycardia with LVH with ST T wave changes that could represent ischemia versus repolarization P Imaging Radiologist's impression: Impressions Chest X-Ray 04/16/23 13:36 IMPRESSION: Multifocal pneumonia with increased bilateral pleural effusions. Chest CT 04/16/23 16:38 IMPRESSION: 1. Widespread multifocal airspace opacities and crazy paving with moderate size pleural effusions. Findings are nonspecific and could represent the combination of an extensive infectious/inflammatory process with pulmonary edema. Evaluation of pulmonary nodules is essentially nondiagnostic due to overlying airspace opacities, a short term follow-up chest CT is recommended. 2. Increased size and number of mediastinal lymph nodes, likely reactive. Continued follow-up recommended. 3. Cardiomegaly with extensive coronary artery calcifications. Correlation with cardiac risk factors is recommended. Assessment and Plan (1) Acute exacerbation of CHF (congestive heart failure): Status: Acute Acute heart failure syndrome in a patient with multiple comorbidities and COPD related to critical aortic stenosis. Patient has had 2nd hospitalization the last 2 weeks related to heart failure. This carries very poor prognosis. I think patient should undergo transcatheter aortic valve replacement as soon as possible. This was discussed with help of squeezer operator at the family. I have discussed the case with Dr. Anderson, covering for , to have patient transferred to [facility] for further evaluation treatment. Continue diuresis with Lasix. Continue blood pressure control. Continue supportive care with oxygen. Continue COPD management. However she will require more definitive treatment with transcatheter aortic valve placement after adequate evaluation. This was discussed with her and she is agreeable. Overall prognosis is guarded otherwise. Continue current antihypertensives as well as Jardiance. Strict intake and output chart needs to be pursued. Continue monitor renal function closely. Greater than 45 minutes was spent in managing her care and coordinating her care including transfer to [facility] and reviewing her chart Time Spent With Patient Time: Total time managing care of this patient today ____ minutes. Procedures Date of Service Date of Service: 04/17/23
--- NOTE | 2023-04-17 13:39 | P.DS_ITS ---
DS: Providers Provider Date of Service: 04/17/23 Date of admission: 04/16/23 20:34 Primary care physician: Shelby Golden MD Consults: 04/16/23 20:39 Consult to Cardiology Routine Consulting Provider: [facility] Cardiovascular Services Reason for consultation: Acute HFpEF exacerbation 04/17/23 08:13 Consult to Pulmonology Routine Consulting Provider: [facility] Pulmonology Services Reason for consultation: extensive airway disease ? etilology DS: Diagnosis Discharge Diagnosis (1) Acute exacerbation of CHF (congestive heart failure): Status: Acute DS: Summary Hospital Course Hospital Course: Chief Complaint: SOB Pt is a 78-year-old female with a PMH significant for?severe aortic stenosis, HFpEF (LVEF 60 to 65% on 07/2022), CAD, insulin-dependent diabetes type 2, HLD, HTN, COPD, spinal stenosis with neural claudication, and PAV with bilateral SFA occlusions who presents to the ED with?increasing SOB.? Patient is Khmer- speaking only; health science specialist services utilized.? Patient was recently admitted 2 weeks prior to [facility] on 04/03 through 04/07/2023 and treated for acute CHF exacerbation in the setting of community-acquired pneumonia.? Patient was evaluated by Pulmonary Rehab and sent home with only p.r.n. supplemental O2.? Patient's daughter states that she was satting at 83-88% O2 at home despite being placed on 2 L supplemental O2, thus prompting called EMS.? EMS placed pa tient on a non-rebreather.? In the ED patient was transitioned to rescue BiPAP and then placed on 8 L OxyMask, satting at 93%.? Patient states that she has been having difficulty breathing for the past 2 months with a ?burning? sensation in her throat and tongue.? Has had a mostly nonproductive cough this past week.? At that she feels a central discomfort in her chest with breathing when walking.? Also has noticed increased swelling in her legs.? And patient notes she has been unable to lay flat on her back for a ?very long time now? patient denies chest pain/pressure, palpitations.? No fever, chills, nausea, vomiting, abdominal pain.? Patient states she has been compliant with all of her medications, including her diuretics.? She has noticed a decrease in appetite the past week. In the ED patient was afebrile, but tachypneic up to 27 in setting as low as 91 % O2 on 8 L OxyMask. Labs were significant for leukocytosis 22.4, microcytic anemia of 9.531.7, BUN of 40, creatinine of 1.68, glucose of 230, BNP 1975, troponin 48.0.? Electrolytes WNL.? Procalcitonin WNL at 0.05. VBG showed respiratory alkalosis with pH of 7.59. CXR showed likely multifocal pneumonia with increased bilateral pleural effusions.? Chest CT showed widespread multifocal airspace opacities and crazy paving with moderate-sized pleural effusions, nonspecific findings that could represent a combination of an exte nsive infectious/inflammatory process with pulmonary edema.? Also found cardiomegaly with extensive coronary artery calcifications. EKG demonstrated sinus bradycardia of 47 with no evidence of ST elevations or depressions. Pt was treated with furosemide 80mg, vanco and zosyn. Pt will be admitted to the hospital for treatment further evaluation of acute hypoxic respiratory failure in the setting of CHF and COPD exacerbations. Hospital course: This patient with multiple comorbidities including CHF, critical , COPD on home O2 at 2 liters by [place] presented to the hospital with shortnes of breath, hypoxia and required rescue bipap this is second episode of such presentation in 2 weeks (last admission at [facility]) and there is concern that her symptoms are largely due to the aortic stenosis as such She has been evaluated by cardiology with the following remarks by Dr. Sexton. Acute heart failure syndrome in a patient with multiple comorbidities and COPD related to critical aortic stenosis.? Patient has had 2nd hospitalization the last 2 weeks related to heart failure.? This carries very poor prognosis.? I think patient should undergo transcatheter aortic valve replacement as soon as possible.? This was discussed with help of health science specialist at the family.? I have discussed the case with Dr. Anderson, covering for , to have patient transferred to [facility] for further evaluation treatment.? Continue diuresis with Lasix.? Continue blood pressure control.? Continue supportive care with oxygen.? Continue COPD management.? However she will require more definitive treatment with transcatheter aortic valve placement after adequate evaluation.? This was discussed with her and she is agreeable.? Overall prognosis is guarded otherwise.? Continue current antihypertensives as well as Jardiance.? Strict intake and output chart needs to be pursued. Patient has also been treated with IV Steroid and Bronchodilators for COPD exacerbation, and CXR and CT of chest multifocal infiltrate and Pleural effusion which maybe related to pneumonia, WBC was 20 so was given Vanco and Zosyn in ED and continue on Ceftriaxone. It is of note that she was on Predniso ne on outpatient basis recent and could account for some of the high WBC however today WBC is down to 15 follwing IV antibiotics Time Spent with Patient Time attestation: Total time managing care of this patient today ____ minutes. Discharge coordination time: Greater than 30 minutes Quality: Safe Use of Opioids Does Pt have an Active Cancer Diagnosis on the Problem List?: No Quality: Stroke Does the patient have a stroke diagnosis?: No Physical Exam Vital Signs: Vital Signs: Last Vital Signs Temp 98 F 04/17/23 12:00 Pulse 64 04/17/23 12:00 Resp 19 04/17/23 12:00 BP 134/67 04/17/23 12:00 Pulse Ox 93 04/17/23 12:00 O2 Del Method Oxymask 04/17/23 12:00 O2 Flow Rate 2.5 04/17/23 12:00 Oxygen Flow Rate 10 04/16/23 12:39 BMI result Body Mass Index 43.7 DS: Data Data Completed and Pending Completed studies during hospitalization [Text1]: Procedures Excision of Descending Colon, Via Natural or Artificial Opening Endoscopic, Diagnostic (02/20/21) Excision of Duodenum, Via Natural or Artificial Opening Endoscopic, Diagnostic (02/20/21) Excision of Stomach, Pylorus, Via Natural or Artificial Opening Endoscopic, Diagnostic (02/20/21) Excision of Transverse Colon, Via Natural or Artificial Opening Endoscopic, Diagnostic (02/20/21) Insertion of Infusion Device into Superior Vena Cava, Percutaneous Approach (01/17/21) Introduction of Remdesivir Anti-infective into Peripheral Vein, Percutaneous Approach, [employer] (01/17/21) Performance of Urinary Filtration, Intermittent, Less than 6 Hours Per Day (01/17/21) Transfusion of Nonautologous Red Blood Cells into Peripheral Vein, Percutaneous Approach (02/20/21) Labs on day of discharge: Laboratory Results - last 24 hr 04/16/23 04/16/23 04/16/23 13:23 13:23 13:23 WBC 22.4 H RBC 4.09 L D Hgb 9.5 L D Hct 31.7 L MCV 77.5 L MCH 23.2 L MCHC 30.0 L RDW 19.7 H Plt Count 382 MPV Not Reportable Immature Gran % (Auto) 0.8 H Neut % (Auto) 94.2 H Lymph % (Auto) 2.8 L [place] % (Auto) 2.0 Eos % (Auto) 0.0 Baso % (Auto) 0.2 Lymph # (Auto) 0.6 L [place] # (Auto) 0.5 Eos # (Auto) 0.0 Baso # (Auto) 0.0 Abs Immat Gran (auto) 0.18 H Absolute Neuts (auto) 21.1 H Absolute Nucleated RBC 0.020 H Nucleated RBC % (auto) 0.1 Smear Tech's Comments VERIFIED VBG pH VBG pCO2 VBG pO2 VBG HCO3 VBG O2 Saturation VBG Base Excess Sodium 138 Potassium 4.1 Chloride 102 Carbon Dioxide 23 Anion Gap 17 BUN 40 H Creatinine 1.68 H Estim Creat Clear Calc 26.0 Estimated GFR 29 POC Glucose Random Glucose 252 H Lactic Acid 1.6 Calcium 10.3 H D Magnesium 2.8 H Total Bilirubin 1.6 H Direct Bilirubin 0.5 AST 16 ALT 15 Alkaline Phosphatase 144 H Troponin I High Sens B-Natriuretic Peptide Total Protein 8.1 H Albumin 3.5 Procalcitonin 0.05 COVID-19 ([facility]) COVID-19 Clin Com 04/16/23 04/16/23 04/16/23 13:23 13:24 13:27 WBC RBC Hgb Hct MCV MCH MCHC RDW Plt Count MPV Immature Gran % (Auto) Neut % (Auto) Lymph % (Auto) [place] % (Auto) Eos % (Auto) Baso % (Auto) Lymph # (Auto) [place] # (Auto) Eos # (Auto) Baso # (Auto) Abs Immat Gran (auto) Absolute Neuts (auto) Absolute Nucleated RBC Nucleated RBC % (auto) Smear Tech's Comments VBG pH 7.59 H VBG pCO2 26 VBG pO2 50 VBG HCO3 25 VBG O2 Saturation 88.0 VBG Base Excess 4.8 Sodium Potassium Chloride Carbon Dioxide Anion Gap BUN Creatinine Estim Creat Clear Calc Estimated GFR POC Glucose Random Glucose Lactic Acid Calcium Magnesium Total Bilirubin Direct Bilirubin AST ALT Alkaline Phosphatase Troponin I High Sens B-Natriuretic Peptide 1975 H Total Protein Albumin Procalcitonin COVID-19 ([facility]) Negative COVID-19 Clin Com See Note 04/16/23 04/16/23 04/16/23 15:17 16:07 21:12 WBC RBC Hgb Hct MCV MCH MCHC RDW Plt Count MPV Immature Gran % (Auto) Neut % (Auto) Lymph % (Auto) [place] % (Auto) Eos % (Auto) Baso % (Auto) Lymph # (Auto) [place] # (Auto) Eos # (Auto) Baso # (Auto) Abs Immat Gran (auto) Absolute Neuts (auto) Absolute Nucleated RBC Nucleated RBC % (auto) Smear Tech's Comments VBG pH VBG pCO2 VBG pO2 VBG HCO3 VBG O2 Saturation VBG Base Excess Sodium Potassium Chloride Carbon Dioxide Anion Gap BUN Creatinine Estim Creat Clear Calc Estimated GFR POC Glucose 230 H Random Glucose Lactic Acid Calcium Magnesium Total Bilirubin Direct Bilirubin AST ALT Alkaline Phosphatase Troponin I High Sens 48.0 H 68.9 H* B-Natriuretic Peptide Total Protein Albumin Procalcitonin COVID-19 ([facility]) COVID-19 Instagram 04/16/23 04/17/23 04/17/23 22:19 06:04 06:04 WBC 15.1 H RBC 3.70 L Hgb 8.7 L Hct 28.3 L MCV 76.5 L MCH 23.5 L MCHC 30.7 L RDW 19.5 H Plt Count 406 H MPV 9.4 Immature Gran % (Auto) Neut % (Auto) Lymph % (Auto) [place] % (Auto) Eos % (Auto) Baso % (Auto) Lymph # (Auto) [place] # (Auto) Eos # (Auto) Baso # (Auto) Abs Immat Gran (auto) Absolute Neuts (auto) Absolute Nucleated RBC 0.000 Nucleated RBC % (auto) 0.0 Smear Tech's Comments VBG pH VBG pCO2 VBG pO2 VBG HCO3 VBG O2 Saturation VBG Base Excess Sodium 143 Potassium 4.0 Chloride 104 Carbon Dioxide 27 Anion Gap 16 BUN 44 H Creatinine 1.73 H Estim Creat Clear Calc 25.2 Estimated GFR 28 POC Glucose 201 H Random Glucose 203 H Lactic Acid Calcium 9.7 Magnesium 2.8 H Total Bilirubin Direct Bilirubin AST ALT Alkaline Phosphatase Troponin I High Sens B-Natriuretic Peptide Total Protein Albumin Procalcitonin COVID-19 ([facility]) COVID-19 Clin Com 04/17/23 04/17/23 08:10 11:23 WBC RBC Hgb Hct MCV MCH MCHC RDW Plt Count MPV Immature Gran % (Auto) Neut % (Auto) Lymph % (Auto) [place] % (Auto) Eos % (Auto) Baso % (Auto) Lymph # (Auto) [place] # (Auto) Eos # (Auto) Baso # (Auto) Abs Immat Gran (auto) Absolute Neuts (auto) Absolute Nucleated RBC Nucleated RBC % (auto) Smear Tech's Comments VBG pH VBG pCO2 VBG pO2 VBG HCO3 VBG O2 Saturation VBG Base Excess Sodium Potassium Chloride Carbon Dioxide Anion Gap BUN Creatinine Estim Creat Clear Calc Estimated GFR POC Glucose 232 H 267 H Random Glucose Lactic Acid Calcium Magnesium Total Bilirubin Direct Bilirubin AST ALT Alkaline Phosphatase Troponin I High Sens B-Natriuretic Peptide Total Protein Albumin Procalcitonin COVID-19 ([facility]) COVID-19 Clin Com Discharge Plan Discharge Anticipated Discharge Date/Time: 04/17/23 13:54 Patient Disposition: Xfer Acute Care Hospital Discharge Diagnosis: Heart Failure, Critical aortic stenosis, copd Referrals: [facility] [Outside] - 1 Week Shelby Spence MD [Primary Care Provider] - 1 Week Discharge Medications: New ceftriaxone 1 gram Recon Soln 1 g IV Q24H Qty: 4 0RF ipratropium-albuterol 0.5 mg-3 mg(2.5 mg base)/3 mL Solution For Nebulization 3 ml inhalation RQ4H WHILE AWAKE Qty: 3 0RF Solu-Medrol (PF) 40 mg/mL Recon Soln 40 mg IVPUSH Q12H Qty: 10 0RF Continued (DME) lancets [FreeStyle Lancets] 28 gauge misc See Rx Instructions .MEDSUPPLY Qty: 300 2RF Rx Instructions: 3 times a day (DME) pen needle, diabetic [BD Sia 2nd Gen Pen Needle] 32 gauge x 5/32 needle See Rx Instructions .MEDSUPPLY Qty: 400 4RF Rx Instructions: 5 times a day atorvastatin 80 mg tablet 80 mg PO BEDTIME 90 Days Qty: 90 1RF aspirin 81 mg tablet,delayed release (DR/EC) 81 mg PO BEDTIME Qty: 90 0RF (DME) blood pressure monitor Kit See Rx Instructions .Route Qty: 1 0RF Rx Instructions: As directed (DME) lancets [TRUEplus Lancets] 33 gauge misc See Rx Instructions .Route Qty: 100 4RF Rx Instructions: As directed test 4 times a day amlodipine 10 mg tablet 10 mg PO DAILY Qty: 30 0RF gabapentin 300 mg capsule 300 mg PO BEDTIME 90 Days Qty: 90 3RF carvedilol 25 mg Tablet 25 mg PO BID montelukast 10 mg Tablet 10 mg PO BEDTIME Tradjenta 5 mg tablet 5 mg PO DAILY insulin aspart U-100 [Novolog FlexPen U-100 Insulin] 100 unit/mL (3 mL) insulin pen 1 sliding scale dose subcut TIDAC Protocol: Insulin Correction Scale Less than or equal to 110 ---- Give (units): 0 111 to 150 Give (units): 0 151 to 200 Give (units): 2 201 to 250 Give (units): 4 251 to 300 Give (units): 6 301 to 350 Give (units): 8 Greater than 350 Give (units): 10 Call MD if Blood Glucose > : 350 cyanocobalamin (vitamin B-12) 1,000 mcg tablet 1,000 mcg PO DAILY polyethylene glycol 3350 [ClearLax] 17 gram/dose powder 17 g PO DAILY PRN (Reason: Constipation) ferrous sulfate 325 mg (65 mg iron) tablet,delayed release (DR/EC) 325 mg PO DAILY tobramycin-dexamethasone 0.3-0.1 % drops,suspension 1 drp ophthalmic (eye) QID Jardiance 10 mg tablet 10 mg PO DAILY Toujeo SoloStar U-300 Insulin 300 unit/mL (1.5 mL) insulin pen 32 unit subcut DAILY calcium acetate 667 mg tablet 667 mg PO BID folic acid 1 mg tablet 1 mg PO DAILY fluticasone propionate 50 mcg/actuation spray,suspension 1 spray intranasal DAILY PRN (Reason: Allergy Symptoms) (DME) blood-glucose meter [FreeStyle [place] Lite] Kit See Rx Instructions .ROUTE .MEDSUPPLY Qty: 1 Rx Instructions: As directed hydralazine 25 mg tablet 25 mg PO BID Trelegy Ellipta 100-62.5-25 mcg blister with device 1 inh inhalation DAILY 30 Days Qty: 60 11RF (DME) FreeStyle Lite Strips Strip See Rx Instructions .MEDSUPPLY Rx Instructions: 3times a day esomeprazole magnesium 40 mg capsule,delayed release(DR/EC) 40 mg PO DAILY@0630 (DME) Oxygen Home Use Kit See Rx Instructions .Route Rx Instructions: As directed prednisone 20 mg tablet 40 mg PO DAILY Qty: 10 0RF Rx Instructions: END DATE: 04/19/23 Discontinued torsemide 20 mg tablet 20 mg PO BID@0900,1700 Discharge Orders: Discharge Order (Routine); Ordered 04/17/23 Ordered By: Adam Juarez Diet: Diabetic diet Activity on Discharge: As tolerated Stand Alone Forms: Patient Portal Discharge page Care Plan Goals: Aortic Valve fixation Health Concerns: critical aortic stenosis Plan of Treatment: Transfer to [facility] for possible transcatheter aortic valve repaair Assessment: see above
--- NOTE | 2023-04-17 14:02 | MHC.CM.PN ---
Patient will be dc/transferred to [facility] for further cardiac work up.
--- NOTE | 2023-04-17 22:50 | P.CONPL_ITS ---
History of Present Illness History of Present Illness Consult date: 04/17/23 Chief complaint: Hypoxia,CHF exacerbation Narrative: This is an inpatient pulmonary consultation. Pt is a 78-year-old female with a PMH significant for?severe aortic stenosis, HFpEF (LVEF 60 to 65% on 07/2022), CAD, insulin-dependent diabetes type 2, HLD, HTN, COPD, spinal stenosis with neural claudication, and PAV with bilateral SFA occlusions who presents to the ED with?increasing SOB.?The Patient was recently admitted 2 weeks prior to [facility] on 04/03 through 04/07/2023 and treated for acute CHF exacerbation in the setting of community-acquired pneumonia.? Patient was evaluated by Pulmonary Re hab and sent home with only p.r.n. supplemental O2.? Patient's daughter states that she was satting at 83-88% O2 at home despite being placed on 2 L supplemental O2, thus prompting called EMS.? EMS placed patient on a non- rebreather.? In the ED patient was transitioned to rescue BiPAP and then placed on 8 L OxyMask, satting at 93%.? Patient states that she has been having difficulty breathing for the past 2 months with a ?burning? sensation in her throat and tongue.? Has had a mostly nonproductive cough this past week.? At that she feels a central discomfort in her chest with breathing when walking.? Also has noticed increased swelling in her legs.? And patient notes she has been unable to lay flat on her back for a ?very long time now? patient denies chest pain/pressure, palpitations. In the ED patient was afebrile, but tachypneic up to 27 in setting as low as 91 % O2 on 8 L OxyMask. Labs were significant for leukocytosis 22.4, microcytic anemia of 9.531.7, BUN of 40, creatinine of 1.68, glucose of 230, BNP 1975, troponin 48.0.? Electrolytes WNL.? Procalcitonin WNL at 0.05. VBG showed respiratory alkalosis with pH of 7.59. CXR showed likely multifocal pneumonia with increased bilateral pleural effusions.? Chest CT showed widespread multifocal airspace opacities and crazy paving with moderate- sized pleural effusions, likely from flash pulmonary edema.? Also found cardiomegaly with extensive coronary artery calcifications. EKG demonstrated sinus bradycardia of 47 with no evidence of ST elevations or depressions. Pt was treated with furosemide 80mg, vanco and zosyn. Pt will be admitted to the hospital for treatment further evaluation of acute hypoxic respiratory failure in the setting of CHF and COPD exacerbations. Now she is feeling better, [place] [facility] [place] Systems Constitutional: Constitutional: Reports no additional constitutional complaints Cardiovascular: Cardiovascular: Reports chest pain with activity, Denies rapid heart rate, Reports leg edema, Denies lightheadedness, Denies Loss of Consciousness, Reports dyspnea on exertion and Reports orthopnea Respiratory: Respiratory: Reports no additional respiratory complaints and Reports dyspnea on exertion Gastrointestinal: Gastrointestinal: Reports no additional gastrointestinal complaints Musculoskeletal: Musculoskeletal: Reports no additional musculoskeletal complaints Neurologic: Reports system reviewed and no additional complaints, except as documented Psychiatric: Psychiatric: Reports no additional psychiatric complaints Endocrine: Endocrine: Reports no additional endocrine complaints Allergic/Immunologic: Allergic/Immunologic: Reports no additional allergic/immunologic complaints [facility] Past Medical History Medical History (Updated 04/17/23 @ 22:55 by Everette Bean MD) Aortic stenosis Asthma Back pain Chronic kidney disease CKD (chronic kidney disease) stage 3, GFR 30-59 ml/min Diabetic nephropathy associated with type 2 diabetes mellitus Diabetic polyneuropathy associated with type 2 diabetes mellitus Dyslipidemia Exocrine pancreatic insufficiency GERD (gastroesophageal reflux disease) HLD (hyperlipidemia) Hypertension Morbid obesity JOSE (obstructive sleep apnea) Pleural effusion 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, acquired, right Thalamic pain syndrome Vitamin D deficiency Family History Family History Sister History of renal pelvis cancer Father Suicide Mother Lung disease Diabetes mellitus Surgical History Surgical History History of breast lump/mass excision History of cholecystectomy History of tubal ligation Social History Social History Household Members: Family Housing: House Do you presently have visiting nurse or other home services: Yes (surg physician asst) Alcohol intake: never Patient Tobacco Use Status: Former Tobacco user Tobacco use type: Cigarette Years Smoked: 5 years e-Cigarette/Vaping Use: Never Used Second Hand Smoke Exposure: No service: No Current occupational status: unemployed and disabled Gender identity: Female Cognitive needs: Yes Hearing needs: No Vision needs: No Meds Allergies Allergy/AdvReac Type Severity Reaction Status Date / Time acetaminophen [From Percocet] Allergy Intermediate Itching Verified 04/14/23 11:49 ibuprofen [From Motrin] Allergy Intermediate High Blood Verified 04/14/23 11:49 Pressure, Rash oxycodone [From Percocet] Allergy Intermediate Itching Verified 04/14/23 11:49 Home Medications Medication Instructions Recorded Confirmed Last Taken Type carvedilol 25 mg tablet 25 mg PO BID 01/18/21 04/16/23 04/15/23 History montelukast 10 mg tablet 10 mg PO BEDTIME 01/18/21 04/16/23 04/15/23 History folic acid 1 mg tablet 1 mg PO DAILY 08/21/21 04/16/23 04/15/23 History fluticasone propionate 50 1 spray intranasal DAILY PRN 06/18/22 04/16/23 10/10/22 History mcg/actuation nasal Allergy Symptoms spray,suspension blood-glucose meter ([employer] #1 ea 08/12/22 04/14/23 10/10/22 History [place] Lite kit) linagliptin 5 mg tablet (Tradjenta) 5 mg PO DAILY 10/10/22 04/16/23 04/15/23 History hydralazine 25 mg tablet 25 mg PO BID 11/13/22 04/16/23 04/15/23 History insulin aspart U-100 100 unit/mL 1 sliding scale dose subcut TIDAC 01/08/23 04/16/23 04/15/23 History (3 mL) subcutaneous pen (Novolog FlexPen U-100 Insulin aspart) Oxygen Home Use 03/15/23 04/14/23 Unknown History blood sugar diagnostic (FreeStyle 03/15/23 04/14/23 Unknown History Lite Strips) esomeprazole magnesium 40 mg 40 mg PO DAILY@0630 03/15/23 04/16/23 04/15/23 History capsule,delayed release calcium acetate 667 mg tablet 667 mg PO BID 04/16/23 04/16/23 04/15/23 History cyanocobalamin (vitamin B-12) 1,000 mcg PO DAILY 04/16/23 04/16/23 04/15/23 History 1,000 mcg tablet empagliflozin 10 mg tablet 10 mg PO DAILY 04/16/23 04/16/2304/15/23 History (Jardiance) ferrous sulfate 325 mg (65 mg 325 mg PO DAILY 04/16/23 04/16/23 04/15/23 History iron) tablet,delayed release insulin glargine U-300 conc 300 32 unit subcut DAILY 04/16/23 04/16/23 04/15/23 History unit/mL (1.5 mL) subcutaneous pen (Toujeo SoloStar U-300 Insulin) polyethylene glycol 3350 17 17 g PO DAILY PRN Constipation 04/16/23 04/16/23 Unknown History gram/dose oral powder (ClearLax) tobramycin 0.3 %-dexamethasone 0.1 1 drp ophthalmic (eye) QID 04/16/23 04/16/23 04/15/23 History % eye drops,suspension Physical Exam Vital Signs: Vital Signs: Last Vital Signs Temp 98 F 04/17/23 12:00 Pulse 64 04/17/23 12:00 Resp 19 04/17/23 12:00 BP 134/67 04/17/23 12:00 Pulse Ox 93 04/17/23 12:00 O2 Del Method Oxymask 04/17/23 12:00 O2 Flow Rate 2.5 04/17/23 12:00 Oxygen Flow Rate 10 04/16/23 12:39 BMI result Body Mass Index 43.7 Const: General: cooperative, alert, awake and in distress moderate and respiratory Nutritional Appearance: obese Orientation/consciousness: patient oriented x3 HEENT: Head: Yes normocephalic and Yes atraumatic Neck: Neck: Yes trachea midline, Yes supple and Yes JVD Resp: Effort & Inspection: normal respiratory effort Auscultation: rales bilateral 1/[address] way up and diminished lung sounds Cardio: Jugular venous distension: JVD Rate: regular rate Rhythm: regular rhythm Heart sounds: S1 normal heart sound present, no click, no gallops and Murmur heart sound present systolic late, decrescendo, crescendo and harsh GI: Inspection: Yes obesity Auscultation: normal bowel sounds Skin: General skin exam: no rashes or lesions noted Neuro: General: patient oriented x3 and no focal motor deficits Extrem: General: No clubbing, No cyanosis and Yes edema Results Laboratory Findings 04/17/23 06:04 04/17/23 06:04 Abnormal lab findings: Abnormal Labs 07/14/23 07/14/23 07/14/23 13:23 13:23 13:23 WBC 22.4 H RBC 4.09 L D Hgb 9.5 L D Hct 31.7 L MCV 77.5 L MCH 23.2 L MCHC 30.0 L RDW 19.7 H Plt Count Immature Gran % (Auto) 0.8 H Neut % (Auto) 94.2 H Lymph % (Auto) 2.8 L Lymph # (Auto) 0.6 L Abs Immat Gran (auto) 0.18 H Absolute Neuts (auto) 21.1 H Absolute Nucleated RBC 0.020 H VBG pH BUN 40 H Creatinine 1.68 H POC Glucose Random Glucose 252 H Calcium 10.3 H D Magnesium 2.8 H Total Bilirubin 1.6 H Alkaline Phosphatase 144 H Troponin I High Sens B-Natriuretic Peptide 1975 H Total Protein 8.1 H 04/16/23 04/16/23 04/16/23 13:27 15:17 16:07 WBC RBC Hgb Hct MCV MCH MCHC RDW Plt Count Immature Gran % (Auto) Neut % (Auto) Lymph % (Auto) Lymph # (Auto) Abs Immat Gran (auto) Absolute Neuts (auto) Absolute Nucleated RBC VBG pH 7.59 H BUN Creatinine POC Glucose 230 H Random Glucose Calcium Magnesium Total Bilirubin Alkaline Phosphatase Troponin I High Sens 48.0 H B-Natriuretic Peptide Total Protein 04/16/23 04/16/23 04/17/23 21:12 22:19 06:04 WBC 15.1 H RBC 3.70 L Hgb 8.7 L Hct 28.3 L MCV 76.5 L MCH 23.5 L MCHC 30.7 L RDW 19.5 H Plt Count 406 H Immature Gran % (Auto) Neut % (Auto) Lymph % (Auto) Lymph # (Auto) Abs Immat Gran (auto) Absolute Neuts (auto) Absolute Nucleated RBC VBG pH BUN Creatinine POC Glucose 201 H Random Glucose Calcium Magnesium Total Bilirubin Alkaline Phosphatase Troponin I High Sens 68.9 H* B-Natriuretic Peptide Total Protein 04/17/23 04/17/23 04/17/23 06:04 08:10 11:23 WBC RBC Hgb Hct MCV MCH MCHC RDW Plt Count Immature Gran % (Auto) Neut % (Auto) Lymph % (Auto) Lymph # (Auto) Abs Immat Gran (auto) Absolute Neuts (auto) Absolute Nucleated RBC VBG pH BUN 44 H Creatinine 1.73 H POC Glucose 232 H 267 H Random Glucose 203 H Calcium Magnesium 2.8 H Total Bilirubin Alkaline Phosphatase Troponin I High Sens B-Natriuretic Peptide Total Protein Microbiology: Microbiology 04/16/23 13:24 Blood - Venous Blood Culture - Preliminary No growth after 24 hours. 04/16/23 13:23 Blood - Venous Blood Culture - Preliminary No growth after 24 hours. Assessment and Plan (1) Acute respiratory failure with hypoxia: Status: Acute (2) Acute exacerbation of CHF (congestive heart failure): Status: Acute (3) Flash pulmonary edema: Status: Acute (4) COPD (chronic obstructive pulmonary disease): Status: Acute (5) Pleural effusion: Status: Acute Plan Continue respiratory therapy oxygen to keep pox>90% Diuresis as tlerated Will need to be reassess for TVAR Time Spent With Patient Time: Total time managing care of this patient today ____ minutes. Procedures Date of Service Date of Service: 04/17/23
[2023-04-20 10:52] LABS: Glucose, Whole Blood 195 mg/dL (60-115)
== END 2023-04-17 15:16 | disposition short-term general hospital (02) | DRG 291 ==
LOC: HO.ED 14:22 → HO.EDOVER 20:45 → HO.IMC 23:33
PROVIDERS: Internal Medicine; Physician Assistant; Admitting Provider Student in an Organized Health Care Education/Training Program; Emergency Provider Emergency Medicine; PCP Internal Medicine; Visit Provider Internal Medicine
DX: I13.0 Hypertensive heart and chronic kidney disease with heart failure and stage 1 through stage 4 chronic kidney disease, or unspecified chronic kidney disease (principal); I50.33 Acute on chronic diastolic (congestive) heart failure; J96.21 Acute and chronic respiratory failure with hypoxia; J44.1 Chronic obstructive pulmonary disease with (acute) exacerbation; E11.42 Type 2 diabetes mellitus with diabetic polyneuropathy; E11.22 Type 2 diabetes mellitus with diabetic chronic kidney disease; G47.33 Obstructive sleep apnea (adult) (pediatric); I35.0 Nonrheumatic aortic (valve) stenosis; D50.9 Iron deficiency anemia, unspecified; I25.10 Atherosclerotic heart disease of native coronary artery without angina pectoris; D63.1 Anemia in chronic kidney disease; N18.30 Chronic kidney disease, stage 3 unspecified; Z20.822 Contact with and (suspected) exposure to COVID-19; Z87.891 Personal history of nicotine dependence; Z99.81 Dependence on supplemental oxygen; Z79.52 Long term (current) use of systemic steroids; Z79.82 Long term (current) use of aspirin; Z79.899 Other long term (current) drug therapy
CPT/HCPCS: 36415; 71045; 71250; 80048; 80076; 82803; 82947; 83605; 83735; 83880; 84145; 84484; 85025; 85027; 87040; 87635; 93005; 94640; 99285; J0696; J1650; J1940; J2543; J2920; J3370

== ENCOUNTER → 2023-04-16 20:34 | Outpatient (BNV) | payer OTHER, SELFPAY | PROVIDERS: Admitting Provider Student in an Organized Health Care Education/Training Program; Emergency Provider Emergency Medicine; PCP Internal Medicine; Visit Provider Student in an Organized Health Care Education/Training Program | DX: J18.9 Pneumonia, unspecified organism (principal); I50.9 Heart failure, unspecified | CPT/HCPCS: 99223; 99239 ==

== ENCOUNTER → 2023-04-16 20:34 | Outpatient (BNV) | payer OTHER, SELFPAY | PROVIDERS: Admitting Provider Student in an Organized Health Care Education/Training Program; Emergency Provider Emergency Medicine; PCP Internal Medicine; Visit Provider Hospitalist | DX: J96.01 Acute respiratory failure with hypoxia (principal); I50.9 Heart failure, unspecified; J81.0 Acute pulmonary edema; J44.9 Chronic obstructive pulmonary disease, unspecified; J90 Pleural effusion, not elsewhere classified | CPT/HCPCS: 99222 ==

== ENCOUNTER → 2023-04-16 20:34 | Outpatient (BNV) | payer OTHER, SELFPAY | PROVIDERS: Admitting Provider Student in an Organized Health Care Education/Training Program; Emergency Provider Emergency Medicine; PCP Internal Medicine; Visit Provider Internal Medicine Cardiovascular Disease | DX: I50.9 Heart failure, unspecified (principal); R00.1 Bradycardia, unspecified; R94.31 Abnormal electrocardiogram [ECG] [EKG] | CPT/HCPCS: 93010; 99223 ==

== ENCOUNTER 2023-05-05 11:07 | Outpatient (REF) | payer OTHER, SELFPAY ==
[2023-05-05 12:20] LABS: B Type Natriuretic Peptide 246 pg/mL (<100)
[2023-05-05 12:21] LABS: Anion Gap 19 (12-20); Blood Urea Nitrogen 18 mg/dL (9-16); Calcium 9.7 mg/dL (8.4-10.2); Carbon Dioxide 26 mmol/L (22-29); Chloride 102 mmol/L (96-108); Estimated Glomerular Filt Rate 39; Glucose Random 199 mg/dL (60-115); Potassium 4.6 mmol/L (3.3-5.1); Sodium 142 mmol/L (135-145)
== END 2023-05-05 11:08 | disposition home or self-care (01) ==
LOC: HO.LNP 11:07
PROVIDERS: Visit Provider Internal Medicine Cardiovascular Disease
DX: I25.10 Atherosclerotic heart disease of native coronary artery without angina pectoris (principal)
CPT/HCPCS: 80048; 83880

== ENCOUNTER 2023-05-12 12:39 | Outpatient (AMB) | payer OTHER, SELFPAY ==
--- NOTE | 2023-05-12 12:55 | A.OFFVIS_ITS ---
Intake Vital Signs 05/12/23 12:56 Height 4 ft 9 in Weight 190 lb 14.725 oz BMI 41.3 BP 136/60 Blood Pressure Location Rt brachial Position Sitting Pulse 68 Pulse Source Pulse Oximeter Temp 97.2 F Temp Source Skin Pulse Oximetry (%) 96 Intake Visit Reasons: Joint Pain Intake Note: * New pt presents today for joint pain consult. * C/o pain in multiple areas, most bothersome is waist and legs. * States she feels weakness Shipping Specialist Required: Yes Shipping Specialist Name: Ashley Information Interpreted: non-clinical & clinical Accompanied by: [employer]PRINTING UNIT OPERATOR Ashley Allergies acetaminophen [From Percocet] Allergy (Intermediate, Verified 05/12/23 13:01) Itching ibuprofen [From Motrin] Allergy (Intermediate, Verified 05/12/23 13:01) High Blood Pressure, Rash oxycodone [From Percocet] Allergy (Intermediate, Verified 05/12/23 13:01) Itching Medication List - Last Reconciled 05/12/23 by Earl Araujo MD amlodipine 10 mg PO DAILY aspirin 81 mg PO BEDTIME atorvastatin 80 mg PO BEDTIME 90 days blood pressure monitor As directed blood sugar diagnostic (FreeStyle Lite Strips) 3times a day blood-glucose meter (FreeStyle [place] Lite kit) As directed calcium acetate 667 mg PO BID carvedilol 25 mg PO BID ceftriaxone 1 g IV Q24H cyanocobalamin (vitamin B-12) 1,000 mcg PO DAILY empagliflozin (Jardiance) 10 mg PO DAILY esomeprazole magnesium 40 mg PO DAILY@0630 ferrous sulfate 325 mg PO DAILY fluticasone propionate 50 mcg/actuation 1 spray intranasal DAILY PRN cqtvyndzgbx-umjynseyb-bemkuagl 100-62.5-25 mcg (Trelegy Ellipta) 1 inh inhalation DAILY 30 days folic acid 1 mg PO DAILY FreeStyle Lancets (lancets) 3 times a day NS gabapentin 300 mg PO BEDTIME 90 days hydralazine 25 mg PO BID insulin aspart U-100 (Novolog FlexPen U-100 Insulin aspart) 1 sliding scale dose See Protocol subcut TIDAC insulin glargine U-300 conc (Toujeo SoloStar U-300 Insulin) 32 units subcut DAILY ipratropium-albuterol 0.5 mg-3 mg(2.5 mg base)/3 mL 3 mL inhalation RQ4H WHILE AWAKE lancets (TRUEplus Lancets) As directed test 4 times a day linagliptin (Tradjenta) 5 mg PO DAILY fcgnem-zknminhi-oigixss 24,000-76,000 -120,000 unit (Creon) 1 cap PO QID methylprednisolone sod suc(PF) (Solu-Medrol (PF)) 40 mg IVPUSH Q12H montelukast 10 mg PO BEDTIME Oxygen Home Use As directed pen needle, diabetic (BD Sia 2nd Gen Pen Needle) 5 times a day polyethylene glycol 3350 (ClearLax) 17 grams PO DAILY PRN tobramycin-dexamethasone 0.3-0.1 % 1 drp ophthalmic (eye) QID HPI HPI Comments History of Present Illness Details This is a 78-year-old female with complex past medical history who presents for evaluation of diffuse pain. Patient mentions that she gets pain in the soles of her feet that radiate up her legs, the pain is burning in associated with tingling and numbness, usually worse at night. She is unaware of any swollen or tender joints. Unaware of any family history of autoimmune rheumatic disease. [facility] Medical History Aortic stenosis Asthma Back pain Chronic kidney disease CKD (chronic kidney disease) stage 3, GFR 30-59 ml/min Diabetic nephropathy associated with type 2 diabetes mellitus Diabetic polyneuropathy associated with type 2 diabetes mellitus Dyslipidemia Exocrine pancreatic insufficiency GERD (gastroesophageal reflux disease) HLD (hyperlipidemia) Hypertension Morbid obesity JOSE (obstructive sleep apnea) Pleural effusion [id number] syndrome Renal cyst, acquired, right Thalamic pain syndrome Vitamin D deficiency Surgical History History of breast lump/mass excision History of cholecystectomy History of tubal ligation Family History Sister History of renal pelvis cancer Father Suicide Mother Lung disease Diabetes mellitus Social History Household Members: Family Housing: House Do you presently have visiting nurse or other home services: Yes (head sawyer automatic) Alcohol intake: never Patient Tobacco Use Status: Former Tobacco user Tobacco use type: Cigarette Years Smoked: 5 years e-Cigarette/Vaping Use: Never Used Second Hand Smoke Exposure: No service: No Current occupational status: unemployed and disabled Gender identity: Female Cognitive needs: Yes Hearing needs: No Vision needs: No Female Reproductive History Menstrual Age of Menarche: 10 Review of Systems Const Reports headache(s) Eyes Reports itchy eyes ENT Reports dysphagia, Reports headache(s) and Reports tinnitus GI Reports constipation, Reports dysphagia, Reports heartburn and Reports nausea Skin/Breast Reports unusual bruising Neuro Reports headache(s) Aller/Immun Reports itchy eyes Physical Exam Vital Signs: Last Vital Signs Temp 97.2 F 05/12/23 12:56 Pulse 68 05/12/23 12:56 BP 136/60 05/12/23 12:56 Pulse Ox 96 05/12/23 12:56 BMI result Body Mass Index 41.3 Const General: cooperative, healthy appearing and comfortable Nutritional Appearance: obese morbidly obese Limitations: wheelchair HEENT Head: Yes normocephalic and Yes atraumatic Mouth: moist mucous membranes Resp Effort & Inspection: normal respiratory effort and able to speak in complete sentences Skin General skin exam: no rashes or lesions noted Extrem Other: Few fibromyalgia tender points No active synovitis Assessment & Plan Assessment & Plan (1) Peripheral neuropathy: Code(s): G62.9 - Polyneuropathy, unspecified Qualifiers: Peripheral neuropathy type: polyneuropathy associated with underlying disease Qualified Code(s): G63 - Polyneuropathy in diseases classified elsewhere Plan: This is a 78-year-old female who presents for evaluation of diffuse pain. Upon evaluation patient's main complaint is bilateral lower extremity burning pain, tingling and numbness. Likely due to peripheral neuropathy. She also has few fibromyalgia tender points. I do not see any signs of autoimmune rheumatic disease. Patient is on gabapentin 300 mg nightly. Advised patient to discuss with PCP potentially increasing her gabapentin dose. If no improvement consider evaluat ion by Neurology. 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
[2023-05-12 12:56] VITALS: BP 136/60; PULSE 68; TEMP 36.2; O2SAT 96; BMI 41.3
== END 2023-05-12 13:35 | disposition home or self-care (01) ==
PROVIDERS: PCP Internal Medicine; Visit Provider Student in an Organized Health Care Education/Training Program
DX: G62.9 Polyneuropathy, unspecified (principal)
CPT/HCPCS: 99203

== ENCOUNTER → 2023-05-12 12:39 | Outpatient (BNVA) | payer OTHER, SELFPAY | PROVIDERS: PCP Internal Medicine; Visit Provider Student in an Organized Health Care Education/Training Program | DX: E11.42 Type 2 diabetes mellitus with diabetic polyneuropathy (principal); Z79.4 Long term (current) use of insulin | CPT/HCPCS: 99202 ==

== ENCOUNTER 2023-05-13 08:28 | Outpatient (AMB) | payer OTHER, SELFPAY ==
--- NOTE | 2023-05-13 08:46 | MHC.PC.OV ---
Vital Signs 05/13/23 08:48 Height 4 ft 9 in Weight 191 lb 12.835 oz BMI 41.5 BP 138/52 L Blood Pressure Location Lt brachial Position Sitting Pulse 65 Pulse Source Pulse Oximeter Pulse Oximetry (%) 100 Oxygen Delivery Method Room Air Intake Visit Reasons: Annual PE Intake Note: Patient is here today for a physical. Rough Rice Grader Required: No Accompanied by: Spouse Allergies acetaminophen [From Percocet] Allergy (Intermediate, Verified 05/13/23 09:09) Itching ibuprofen [From Motrin] Allergy (Intermediate, Verified 05/13/23 09:09) High Blood Pressure, Rash oxycodone [From Percocet] Allergy (Intermediate, Verified 05/13/23 09:09) Itching Medication List - Last Reconciled 05/13/23 by Shelby Golden MD amlodipine 10 mg PO DAILY aspirin 81 mg PO BEDTIME atorvastatin 40 mg PO BEDTIME blood pressure monitor As directed blood sugar diagnostic (FreeStyle Lite Strips) 3times a day blood-glucose meter (FreeStyle Independence Lite kit) As directed calcium acetate 667 mg PO BID carvedilol 25 mg PO BID ceftriaxone 1 g IV Q24H clopidogrel 75 mg PO DAILY cyanocobalamin (vitamin B-12) 1,000 mcg PO DAILY empagliflozin (Jardiance) 10 mg PO DAILY esomeprazole magnesium 40 mg PO DAILY@0630 ferrous sulfate 325 mg PO DAILY fluticasone propionate 50 mcg/actuation 1 spray intranasal DAILY PRN qsyibialbbc-thtxxtfix-ayyctzoc 100-62.5-25 mcg (Trelegy Ellipta) 1 inh inhalation DAILY 30 days folic acid 1 mg PO DAILY FreeStyle Lancets (lancets) 3 times a day NS gabapentin 300 mg PO BEDTIME 90 days hydralazine 25 mg PO BID insulin aspart U-100 (Novolog FlexPen U-100 Insulin aspart) 1 sliding scale dose See Protocol subcut TIDAC insulin glargine U-300 conc (Toujeo SoloStar U-300 Insulin) 32 units subcut DAILY ipratropium-albuterol 0.5 mg-3 mg(2.5 mg base)/3 mL 3 mL inhalation RQ4H WHILE AWAKE lancets (TRUEplus Lancets) As directed test 4 times a day linagliptin (Tradjenta) 5 mg PO DAILY nwlxne-svhxstir-igfoaat 24,000-76,000 -120,000 unit (Creon) 1 cap PO QID methylprednisolone sod suc(PF) (Solu-Medrol (PF)) 40 mg IVPUSH Q12H montelukast 10 mg PO BEDTIME Oxygen Home Use As directed pen needle, diabetic (BD Sia 2nd Gen Pen Needle) 5 times a day polyethylene glycol 3350 (ClearLax) 17 grams PO DAILY PRN tobramycin-dexamethasone 0.3-0.1 % 1 drp ophthalmic (eye) QID torsemide 20 mg PO BID Tobacco use date assessed: 11/13/22 Fall risk assessment: No Falls in past year Last assessed Fall Risk: 05/13/23 Dental Screening Dental Screen Date: 05/13/23 Did you have a dental visit in the last 12 months?: Yes Did you have a dental problem in the last 6 months where you did not have access to dental care?: No Was dental information given to patient?: Patient has dentist HPI HPI Comments History of Present Illness Details This is a 78-year-old female with diabetes mellitus type 2 on long-term current use of insulin, congestive heart failure, COPD, mild major depression and chronic kidney disease stage 3 that comes for her physical exam. She is accompanied by and currently on a wheelchair due to dyspnea on exertion and bilateral leg weakness which she is receiving physical therapy at home. A1c within goal. Has not gain 5 lb in a week. Last NT proBNP was less than 500. COPD has been stable with inhalers. Has mild depression and would like counseling at home. She has chronic kidney disease stage III follow by Nephrology and was told to avoid NSAIDs. As per patient had aortic valve replacement about a month ago at [facility]. She is morbidly obese with a BMI of 41.5 and was advised to do diet and exercise as tolerated to reach BMI goal less than 30. Mammogram was done February 2023 and was normal. Colonoscopy was done 2020 showing tubular adenoma. Bone density done 2022 shows osteopenia and she is on calcium with vitamin-D. 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, acquired, right Thalamic pain syndrome Vitamin D deficiency Surgical History (Updated 05/13/23 @ 09:18 by Shelby Golden MD) H/O aortic valve replacement History of breast lump/mass excision History of cholecystectomy History of tubal ligation Family History Sister History of renal pelvis cancer Father Suicide Mother Lung disease Diabetes mellitus Social History Household Members: Family Housing: House Do you presently have 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 1. Little interest or pleasure in doing things: several days 2. Feeling down, depressed, or hopeless: several days 3. Trouble falling or staying asleep, or sleeping too much: several days 4. Feeling tired or having little energy: several days 5. Poor appetite or overeating: not at all 6. Feeling bad about yourself - or that you are a failure or have let yourself or your family down: not at all 7. Trouble concentrating on things, such as reading the newspaper or watching television: not at all 8. Moving or speaking so slowly that other people could have noticed. Or the opposite - being so fidgety or restless that you have been moving around a lot more than usual: not at all 9. Thoughts that you would be better off or of hurting yourself in some way: not at all Total score: 4 Depression Screening Interpretation: Positive Depression Screening Follow-up: Existing condition 39712 - PHQ-9 Billing: Yes Source: Developed by Drs. Caron Vo, El Esqueda and colleagues, with an educational susanne from [employer]. Thrive Questionnaire Date Thrive assessed: 04/17/23 AUDIT C Alcohol Use Questionnaire (AUDIT-C) 1. How often do you have a drink containing alcohol?: Never Total Score: 0 JES-7 AMB Questionnaire JES-7 Date JES - 7 assessed: 02/01/23 Source: Developed by Drs. Farhad Murdock, Caron Elkins, El Esqueda and colleagues, with an educational susanne from [employer]. Review of Systems Const All systems reviewed & are unremarkable except as noted in HPI and below Eyes Reports no additional complaints, Denies change in vision and Denies other visual disturbances Card Denies chest pain at rest, Denies chest pain with activity, Denies edema, Denies irregular heart rhythm, Denies claudication, Denies dyspnea, Denies dyspnea on exertion, Denies orthopnea, Denies paroxysmal nocturnal dyspnea and Denies slow heart rate Resp Denies cough, Denies dyspnea and Denies dyspnea on exertion GI Denies abdominal pain, Denies change in bowel habits, Denies excessive flatus, Denies nausea and Denies vomiting Denies urinary incontinence, Denies urinary hesitancy and Denies urinary urgency Musc Denies abnormal gait, Denies atrophy, Denies deformity and Denies limited range of motion Skin/Breast Denies bleeding lesions, Denies changing lesions and Denies rash Neuro Denies abnormal gait and Denies lack of coordination Physical exam (Primary Care) Vital Signs: Last Vital Signs Pulse 65 05/13/23 08:48 BP 138/52 L 05/13/23 08:48 Pulse Ox 100 05/13/23 08:48 Oxygen Delivery Method Room Air 05/13/23 08:48 BMI result Body Mass Index 41.5 Tobacco/Smoking Status: Tobacco use Status Tobacco use date assessed 11/13/22 05/13/23 08:50 Patient Tobacco Use Status Former Tobacco user 05/13/23 08:50 Tobacco use type Cigarette 05/13/23 08:50 e-Cigarette/Vaping Use Never Used 05/13/23 08:50 PHQ-9: PHQ-9 Score PHQ-9: Total score 4 05/13/23 09:10 Depression Screening Interpretation: Positive Depression Screening Follow-up: Existing condition Thrive Assessment: Date of Thrive Assessment Date Thrive assessed 04/17/23 05/13/23 08:50 Const Orientation/consciousness: patient oriented x3 Limitations: wheelchair HENMT Head: Yes normal to inspection, Yes normocephalic and Yes atraumatic Ears: external ears normal Eyes General: appearance normal, both eyes and all related structures Eyelids: Yes eyelids normal Conjunctivae: conjunctivae normal Neck Neck: Yes normal visual inspection and Yes supple Resp Effort & Inspection: normal respiratory effort Auscultation: clear to auscultation bilaterally Cardio Jugular venous distension: no JVD Rate: regular rate Rhythm: regular rhythm Heart sounds: S1 normal heart sound present and S2 normal heart sound present GI Inspection: Yes normal to inspection Palpation (GI): Soft to palpation and nontender Auscultation: normal bowel sounds Skin General skin exam: no rashes or lesions noted Neuro General: patient oriented x3 and no focal motor deficits Extrem General: Yes full ROM Psych Appearance: grossly normal Results AMB Hemoglobin A1c AMB Hemoglobin A1c 6.2 % Last Edit by LINDA Weaver on 05/13/23 08:58 Results Reviewed Results Reviewed: Laboratory Last Values Hgb A1c (Clinic) 6.2 % (4.0-6.0) H 05/13/23 08:57 Assessment and Plan Assessment & Plan (1) Physical exam: Code(s): Z00.00 - Encounter for general adult medical examination without abnormal findings Plan: Repeat in a year (2) Mild major depression: Code(s): F32.0 - Major depressive disorder, single episode, mild Plan: Referred to counseling. (3) COPD (chronic obstructive pulmonary disease): Code(s): J44.9 - Chronic obstructive pulmonary disease, unspecified Plan: Continue inhalers. (4) Congestive heart failure: Code(s): I50.9 - Heart failure, unspecified Plan: Continue carvedilol. Last echocardiogram was done few months ago showing ejection fraction of over 60%. The goal is to not gain 5 lb in a week. (5) T2DM (type 2 diabetes mellitus): Code(s): E11.9 - Type 2 diabetes mellitus without complications Qualifiers: Diabetes mellitus termination clerk insulin use: with termination clerk use Diabetes mellitus complication status: with kidney complications Diabetes mellitus complication detail: with chronic kidney disease Chronic kidney disease stage: stage 2 (mild) Qualified Code(s): E11.22 - Type 2 diabetes mellitus with diabetic chronic kidney disease; N18.2 - Chronic kidney disease, stage 2 (mild); Z79.4 - intermediate manager (current) use of insulin Plan: Continue Jardiance and insulin. A1c goal is equal or less than 7%. (6) Morbid obesity with BMI of 40.0-44.9, adult: Code(s): E66.01 - Morbid (severe) obesity due to excess calories; Z68.41 - Body mass index [BMI] 40.0-44.9, adult Plan: Start diet and exercise as tolerated. BMI goal is less than 30. (7) CKD (chronic kidney disease) stage 3, GFR 30-59 ml/min: Comment: ARLEY due to compromise in renal perfusion due to CRS Getting diuresis; Serum creatinine better; Has CKD at baseline No ACEI/ARB/NSAID's. Concur with rest of current management Code(s): N18.30 - Chronic kidney disease, stage 3 unspecified Qualifiers: Chronic kidney disease stage 3 subtype: stage 3b (GFR 30-44) Qualified Code(s): N18.32 - Chronic kidney disease, stage 3b Plan: Avoid NSAIDs. Follow-up with nephrology. Keep blood pressure within goal. Orders: Orders Vitamin B12 and Folate Today E53.8 - Deficiency of other specified B group vitamins IRON PROFILE Today D64.9 - Anemia, unspecified Lipid Panel Today E78.5 - Hyperlipidemia, unspecified Vitamin D 25-OH Total Today E55.9 - Vitamin D deficiency, unspecified Microalbumin, Random (w Creat) Today E11.9 - Type 2 diabetes mellitus without complications Complete Blood Count Auto Diff Today D64.9 - Anemia, unspecified Comprehensive [place]. Panel Fast Today I50.9 - Heart failure, unspecified NT-proBNP Today I50.9 - Heart failure, unspecified AMB Hemoglobin A1c Today E11.22 - Type 2 diabetes mellitus with diabetic chronic kidney disease, E11.65 - Type 2 diabetes mellitus with hyperglycemia, Z79.4 - jail (current) use of insulin Referrals Counseling Referral F32.0 - Major depressive disorder, single episode, mild Medications: Discontinued insulin glargine U-300 conc 35 units (0.1167 mL) subcut DAILY 90 days 10.503 mL 1RF E11.22 - Type 2 diabetes mellitus with diabetic chronic kidney disease, E11.65 - Type 2 diabetes mellitus with hyperglycemia, Z79.4 - intermediate manager (current) use of insulin calcium acetate 667 mg PO .twice a day 90 days 180 tabs 1RF empagliflozin 10 mg PO QAM 30 tabs 5RF Coding Level of Care Code Est Pt Prev Care >65y(20336) Diagnoses Physical exam Z00.00 Mild major depression F32.0 COPD (chronic obstructive pulmonary disease) J44.9 Congestive heart failure I50.9 T2DM (type 2 diabetes mellitus) E11.22; N18.2; Z79.4 Diabetes mellitus correction insulin use: with termination clerk use Diabetes mellitus complication status: with kidney complications Diabetes mellitus complication detail: with chronic kidney disease Chronic kidney disease stage: stage 2 (mild) Morbid obesity with BMI of 40.0-44.9, adult E66.01; Z68.41 CKD (chronic kidney disease) stage 3, GFR 30-59 ml/min N18.32 Chronic kidney disease stage 3 subtype: stage 3b (GFR 30-44) Time Spent (min) 38
[2023-05-13 08:48] VITALS: BP 138/52; PULSE 65; O2SAT 100; BMI 41.5
== END 2023-05-13 09:48 | disposition home or self-care (01) ==
PROVIDERS: PCP Internal Medicine; Visit Provider Internal Medicine
DX: Z00.00 Encounter for general adult medical examination without abnormal findings (principal); E11.22 Type 2 diabetes mellitus with diabetic chronic kidney disease; I50.9 Heart failure, unspecified; N18.32 Chronic kidney disease, stage 3b; F32.0 Major depressive disorder, single episode, mild; J44.9 Chronic obstructive pulmonary disease, unspecified; Z79.4 Long term (current) use of insulin; E66.01 Morbid (severe) obesity due to excess calories; Z68.41 Body mass index [BMI] 40.0-44.9, adult; E11.65 Type 2 diabetes mellitus with hyperglycemia
CPT/HCPCS: 83036; 99397

== ENCOUNTER 2023-05-14 07:33 | Outpatient (AMB) | payer OTHER, SELFPAY ==
[2023-05-14 07:40] VITALS: BMI 41.5
--- NOTE | 2023-05-14 07:40 | A.OFFVIS_ITS ---
Intake Vital Signs 05/14/23 07:40 Height 4 ft 9 in Weight 191 lb 12.835 oz BMI 41.5 Intake Visit Reasons: Vaginal lump Intake Note: The patient agreed to use of a medical dosimetrist during this encounter. Scribed for SANTOS Richardson by Alexandria Chicas medical dosimetrist, on 05/14/2023. Learning Facilitator Required: Yes Learning Facilitator Language: Section Leader Name: Shelly GENTILE Information Interpreted: non-clinical & clinical Ladies Underwear Operator: Ladies Underwear Operator Present (Shelly GENTILE) Accompanied by: Self / Same As Patient Allergies acetaminophen [From Percocet] Allergy (Intermediate, Verified 05/14/23 07:41) Itching ibuprofen [From Motrin] Allergy (Intermediate, Verified 05/14/23 07:41) High Blood Pressure, Rash oxycodone [From Percocet] Allergy (Intermediate, Verified 05/14/23 07:41) Itching Post menopausal: Yes HPI HPI Comments History of Present Illness Details 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 Reports it has gotten bigger since being admitted to the ED 2 weeks ago. She was given antibiotic in the hospital for pneumonia. Hx of diabetes. PFSH Medical History Aortic stenosis Asthma Back pain Chronic kidney disease CKD (chronic kidney disease) stage 3, GFR 30-59 ml/min Diabetic nephropathy associated with type 2 diabetes mellitus Diabetic polyneuropathy associated with type 2 diabetes mellitus Dyslipidemia Exocrine pancreatic insufficiency Furuncle GERD (gastroesophageal reflux disease) HLD (hyperlipidemia) Hypertension Morbid obesity JOSE (obstructive sleep apnea) Pleural effusion [id number] syndrome Renal cyst, acquired, right Thalamic pain syndrome Vaginal lump Vitamin D deficiency Vulvar itching Surgical History H/O aortic valve replacement History of breast lump/mass excision History of cholecystectomy History of tubal ligation Family History Sister History of renal pelvis cancer Father Suicide Mother Lung disease Diabetes mellitus Social History Household Members: Family Housing: House Do you presently have visiting nurse or 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 tender 2cm rounded, localized, furuncle w/central pustule-not yet draining, on lower left labia, & fungal appearing rash throughout the vulva, upper thighs and gluteal region. General: Yes bladder normal to palpation External Female Exam: erythema (labia minora) and other Speculum Exam - Vagina: normal appearance of the vagina, normal palpation and vagina atrophic Speculum Exam - Cervix: normal appearance of the cervix and normal palpation Bimanual exam- vagina & uterus: normal bimanual exam, normal palpation, bladder normal to palpation and normal palpation Bimanual Exam- Adnexa, other: normal adnexae and no masses Assessment & Plan Assessment & Plan (1) Furuncle of labia majora: Code(s): N76.4 - Abscess of vulva Plan: Discussed: Apply warm compress for 15 minutes every 4 hours. Advised to clean with water only, no soaps to the area, dry well, apply warm compress and wear cotton underwear. Monitor pain and area. If symptoms worsen call office or go to ED. Additional instructions for yeast cream use. RTO next week for skin check. All of her questions and concerns were addressed to the best of my ability and shared decision making. She is agreeable to plan of care. (2) Vulvar itching: Code(s): L29.2 - Pruritus vulvae Plan: Rx sent to pharmacy. Instructions given. BV testing today. STD blood work ordered. Await results and treat accordingly. (3) Vaginal itching: Code(s): N89.8 - Other specified noninflammatory disorders of vagina Plan: Rx sent to pharmacy. Instructions given. (4) Furuncle: Comment: of labia Code(s): L02.92 - Furuncle, unspecified Orders: Orders Bacterial Vaginosis Panel Today N94.9 - Unspecified condition associated with female genital organs and menstrual cycle Medications: New clotrimazole-betamethasone 1-0.05 % 1 appl topical BID 45 grams 1RF fungal rash 7 days Discontinued insulin glargine U-300 conc 35 units (0.1167 mL) subcut DAILY 90 days 10.503 mL 1RF E11.22 - Type 2 diabetes mellitus with diabetic chronic kidney disease, E11.65 - Type 2 diabetes mellitus with hyperglycemia, Z79.4 - intermediate card tender (current) use of insulin calcium acetate 667 mg PO .twice a day 90 days 180 tabs 1RF empagliflozin 10 mg PO QAM 30 tabs 5RF Coding Level of Care Code Est Pt Level 3 (41116) Diagnoses Furuncle of labia majora N76.4 Vulvar itching L29.2 Vaginal itching N89.8 Furuncle L02.92
== END 2023-05-14 08:28 | disposition home or self-care (01) ==
LOC: HO.HWS 07:33
PROVIDERS: PCP Internal Medicine; Visit Provider Advanced Practice Midwife
DX: N76.4 Abscess of vulva (principal); L29.2 Pruritus vulvae; L02.92 Furuncle, unspecified
CPT/HCPCS: 99213

== ENCOUNTER 2023-05-14 07:33 | Outpatient (REF) | payer OTHER, SELFPAY ==
[2023-05-15 10:34] LABS: BV Int Neg Control Negative (Negative); BV Int Pos Control Positive (Positive)
== END 2023-05-14 07:34 | disposition home or self-care (01) ==
LOC: HO.LNP 07:33
PROVIDERS: PCP Internal Medicine; Visit Provider Advanced Practice Midwife
DX: N94.9 Unspecified condition associated with female genital organs and menstrual cycle (principal); N76.4 Abscess of vulva; L29.2 Pruritus vulvae; L02.92 Furuncle, unspecified
CPT/HCPCS: 87480; 87510; 87660; 99212

== ENCOUNTER 2023-05-19 10:39 | Outpatient (AMB) | payer OTHER, SELFPAY ==
[2023-05-19 10:44] VITALS: BP 110/66; BMI 41.3
--- NOTE | 2023-05-19 10:44 | A.OFFVIS_ITS ---
Intake Vital Signs 05/19/23 10:44 Height 4 ft 9 in Weight 191 lb BMI 41.3 BP 110/66 Intake Visit Reasons: Follow skin check/ labia cyst Quality Assurance Supervisor Final Required: Yes Quality Assurance Supervisor Final Language: Legal Archivist Name: Shelly Information Interpreted: non-clinical & clinical Optometrist President/Practice Owner: Optometrist President/Practice Owner Present (Shelly) Allergies acetaminophen [From Percocet] Allergy (Intermediate, Verified 05/14/23 07:41) Itching ibuprofen [From Motrin] Allergy (Intermediate, Verified 05/14/23 07:41) High Blood Pressure, Rash oxycodone [From Percocet] Allergy (Intermediate, Verified 05/14/23 07:41) Itching HPI HPI Comments History of Present Illness Details She is here for skin check of labial cyst. Her daughter is present at the visit today. She has been applying warm compress and is doing better. Denies increase in pain. Reports vaginal itching, she was unaware a Rx was sent in last week due to the pharmacy not delivering it to her home. [facility] Medical History Aortic stenosis Asthma Back pain Chronic kidney disease CKD (chronic kidney disease) stage 3, GFR 30-59 ml/min Diabetic nephropathy associated with type 2 diabetes mellitus Diabetic polyneuropathy associated with type 2 diabetes mellitus Dyslipidemia Exocrine pancreatic insufficiency Furuncle GERD (gastroesophageal reflux disease) HLD (hyperlipidemia) Hypertension Morbid obesity JOSE (obstructive sleep apnea) Pleural effusion [id number] syndrome Renal cyst, acquired, right Thalamic pain syndrome Vaginal lump Vitamin D deficiency Vulvar itching Surgical History H/O aortic valve replacement History of breast lump/mass excision History of cholecystectomy History of tubal ligation Family History Sister History of renal pelvis cancer Father Suicide Mother Lung disease Diabetes mellitus Social History Household Members: Family Housing: House Do you presently have visiting nurse or 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) Alcohol intake: never Patient Tobacco Use Status: Former Tobacco user Tobacco use type: Cigarette Years Smoked: 5 years e-Cigarette/Vaping Use: Never Used Second Hand Smoke Exposure: No service: No Current occupational status: unemployed and disabled Gender identity: Female Cognitive needs: Yes Hearing needs: No Vision needs: No Female Reproductive History Menstrual Age of Menarche: 10 Physical Exam Vital Signs: Last Vital Signs BP 110/66 05/19/23 10:44 BMI result Body Mass Index 41.3 Const General: cooperative, healthy appearing, comfortable, no acute distress, well developed, alert and awake Other: lower left labia furuncle is decreased half in size since last week. Mild labial erythema Assessment & Plan Assessment & Plan (1) Furuncle: Comment: of labia Code(s): L02.92 - Furuncle, unspecified Plan: Discussed: Continue to apply warm compress x1-2d if desired. Follow uo for any concerns or if area does not continue to improve. Contact pharmacy to obtain Rx. All of her questions and concerns were addressed to the best of my ability and shared decision making. She is agreeable to plan of care. (2) Vulvar itching: Code(s): L29.2 - Pruritus vulvae Medications: Discontinued insulin glargine U-300 conc 35 units (0.1167 mL) subcut DAILY 90 days 10.503 mL 1RF E11.22 - Type 2 diabetes mellitus with diabetic chronic kidney disease, E11.65 - Type 2 diabetes mellitus with hyperglycemia, Z79.4 - USP (current) use of insulin calcium acetate 667 mg PO .twice a day 90 days 180 tabs 1RF empagliflozin 10 mg PO QAM 30 tabs 5RF Coding Level of Care Code Est Pt Level 3 (45059) Diagnoses Furuncle L02.92 Vulvar itching L29.2
== END 2023-05-19 12:29 | disposition home or self-care (01) ==
LOC: HO.HWS 10:39
PROVIDERS: PCP Internal Medicine; Visit Provider Advanced Practice Midwife
DX: L02.92 Furuncle, unspecified (principal); L29.2 Pruritus vulvae
CPT/HCPCS: 99213

== ENCOUNTER → 2023-05-19 10:39 | Outpatient (BNVA) | payer OTHER, SELFPAY | PROVIDERS: PCP Internal Medicine; Visit Provider Advanced Practice Midwife | DX: L02.92 Furuncle, unspecified (principal); L29.2 Pruritus vulvae | CPT/HCPCS: 99212 ==

== ENCOUNTER 2023-05-24 18:46 | Emergency (ER) | payer OTHER, SELFPAY ==
[2023-05-24 18:57] VITALS: BP 164/70; PULSE 88; O2SAT 98
[2023-05-24 19:05] VITALS: BP 161/59; PULSE 79; RESP 18; TEMP 36.3; O2SAT 98; BMI 41.5
--- NOTE | 2023-05-24 19:07 | ED_ITS ---
History of Present Illness General Chief Complaint: Epistaxis Stated Complaint: resolved bloody nose Time Seen by Provider: 05/24/23 21:25 Source: patient and family Mode of arrival: ambulatory Limitations: no limitations History of Present Illness HPI Narrative: patient presents with epistaxis. She is on aspirin and clopidogrel for cardiac reasons. Patient had 2 episodes of that epistaxis from the right nose. She describes symptoms as moderate to severe. Started spontaneously without trauma. She denies any chest pain, palpitations or lightheadedness. She denies any additional bruising or bleeding. Her epistaxis stopped on its own both times. She came to the hospital at the request of her daughter. Related Data Home Medications Medication Instructions Recorded Confirmed carvedilol 25 mg tablet 25 mg PO BID 01/18/21 05/13/23 montelukast 10 mg tablet 10 mg PO BEDTIME 01/18/21 05/13/23 folic acid 1 mg tablet 1 mg PO DAILY 08/21/21 05/13/23 fluticasone propionate 50 1 spray intranasal DAILY PRN 06/18/22 05/13/23 mcg/actuation nasal Allergy Symptoms spray,suspension blood-glucose meter (FreeStyle #1 ea 08/12/22 05/13/23 [place] Lite kit) linagliptin 5 mg tablet (Tradjenta) 5 mg PO DAILY 10/10/22 05/13/23 hydralazine 25 mg tablet 25 mg PO BID 11/13/22 05/13/23 insulin aspart U-100 100 unit/mL 1 sliding scale dose subcut TIDAC 01/08/23 05/13/23 (3 mL) subcutaneous pen (Novolog FlexPen U-100 Insulin aspart) Oxygen Home Use 03/15/23 05/13/23 blood sugar diagnostic (FreeStyle 03/15/23 05/13/23 Lite Strips) esomeprazole magnesium 40 mg 40 mg PO DAILY@0630 03/15/23 05/13/23 capsule,delayed release calcium acetate 667 mg tablet 667 mg PO BID 04/16/23 05/13/23 cyanocobalamin (vitamin B-12) 1,000 mcg PO DAILY 04/16/23 05/13/23 1,000 mcg tablet empagliflozin 10 mg tablet 10 mg PO DAILY 04/16/23 05/13/23 (Jardiance) ferrous sulfate 325 mg (65 mg 325 mg PO DAILY 04/16/23 05/13/23 iron) tablet,delayed release insulin glargine U-300 conc 300 32 unit subcut DAILY 04/16/23 05/13/23 unit/mL (1.5 mL) subcutaneous pen (Toujeo SoloStar U-300 Insulin) polyethylene glycol 3350 17 17 g PO DAILY PRN Constipation 04/16/23 05/13/23 gram/dose oral powder (ClearLax) tobramycin 0.3 %-dexamethasone 0.1 1 drp ophthalmic (eye) QID 04/16/23 05/13/23 % eye drops,suspension [id number] 1 cap PO QID 05/12/23 05/13/23 24,000-76,000-120,000 unit capsule,delayed rel (Creon) atorvastatin 40 mg tablet 40 mg PO BEDTIME 05/13/23 05/13/23 clopidogrel 75 mg tablet 75 mg PO DAILY 05/13/23 05/13/23 torsemide 20 mg tablet 20 mg PO BID 05/13/23 05/13/23 Previous Rx's Medication Instructions Recorded FreeStyle Lancets 28 gauge #300 ea 01/15/22 (lancets) pen needle, diabetic 32 gauge x #400 ea 04/29/22 5/32 (BD Sia 2nd Gen Pen Needle) fluticasone fur. 100 mcg-umeclid 1 inh inhalation DAILY 30 days #60 11/13/22 62.5 mcg-vilant 25 mcg ea inhalat.powder (Trelegy Ellipta) aspirin 81 mg tablet,delayed 81 mg PO BEDTIME #90 tabs 03/11/23 release blood pressure monitor #1 ea 04/12/23 lancets 33 gauge (TRUEplus Lancets) #100 ea 04/15/23 ceftriaxone 1 gram solution for 1 g IV Q24H #4 ea 04/17/23 injection gabapentin 300 mg capsule 300 mg PO BEDTIME 90 days #90 caps 04/17/23 ipratropium 0.5 mg-albuterol 3 mg 3 ml inhalation RQ4H WHILE AWAKE 04/17/23 (2.5 mg base)/3 mL nebulization #3 mL soln methylprednisolone sod suc(PF) 40 40 mg IVPUSH Q12H #10 ea 04/17/23 mg/mL solution for injection (Solu-Medrol (PF)) amlodipine 10 mg tablet 10 mg PO DAILY #30 tabs 05/12/23 clotrimazole-betamethasone 1 1 appl topical BID fungal rash 7 05/14/23 %-0.05 % topical cream days #45 grams Allergies Allergy/AdvReac Type Severity Reaction Status Date / Time acetaminophen [From Percocet] Allergy Intermediate Itching Verified 05/14/23 07:41 ibuprofen [From Motrin] Allergy Intermediate High Blood Verified 05/14/23 07:41 Pressure, Rash oxycodone [From Percocet] Allergy Intermediate Itching Verified 05/14/23 07:41 Review of Systems Review of Systems: CONSTITUTIONAL: Denies weight loss, fever and chills. HEENT: Denies changes in vision and hearing. RESPIRATORY: Denies SOB and cough. CV: Denies palpitations no CP. GI: Denies abdominal pain, nausea, vomiting and diarrhea. : Denies dysuria and urinary frequency. MSK: Denies myalgia and joint pain. SKIN: Denies rash and pruritus. NEUROLOGICAL: Denies headache and syncope. PSYCHIATRIC: Denies recent changes in mood. Denies anxiety and depression. 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, acquired, right Thalamic pain syndrome Vaginal lump Vitamin D deficiency Vulvar itching Surgical History H/O aortic valve replacement History of breast lump/mass excision History of cholecystectomy History of tubal ligation Family History Family History Sister History of renal pelvis cancer Father Suicide Mother Lung disease Diabetes mellitus Social History Social History Household Members: Family Housing: House Do you presently have visiting nurse or other home services: Yes (card writer hand) Alcohol intake: never Patient Tobacco Use Status: Former Tobacco user Tobacco use type: Cigarette Years Smoked: 5 years e-Cigarette/Vaping Use: Never Used Second Hand Smoke Exposure: No service: No Current occupational status: unemployed and disabled Gender identity: Female Cognitive needs: Yes Hearing needs: No Vision needs: No Physical Exam Vital Signs: Vital Signs: Last Vital Signs Temp 98.2 F 05/24/23 21:26 Pulse 69 05/24/23 21:26 Resp 16 05/24/23 21:26 BP 160/60 H 05/24/23 21:26 Pulse Ox 98 05/24/23 19:05 O2 Del Method Room Air 05/24/23 21:26 O2 Flow Rate 98 05/24/23 21:26 BMI result Body Mass Index 41.5 GEN: Well developed, no acute distress, alert, oriented HEENT: Normocephalic, atraumatic, normal external ears, nose appears normal, no oropharyngeal edema or exudates , no active bleeding, and nasal septal area on the right appears erythematous but no definitive location of her bleeding Eyes: Normal to appearance Neck: Supple, no lymphadenopathy Respiratory: Talks in complete sentences, no respiratory distress, clear to auscultation bilaterally Cardiovascular: Regular rate and rhythm, no murmurs rubs or gallops Abdomen: Soft, nontender, nondistended, no guarding, no rebound Back: No CVA tenderness Extremities: No clubbing cyanosis or edema Neurologic: No focal neurologic deficits, cranial nerves 2-12 intact, strength is 5/5 bilaterally Skin: No rash Course Course Course Narrative: This is an RME: Additional HPI, ROS, PE not included below will be deferred to primary provider. This is a [id number], with a history of diabetes mellitus type 2 on long-term current use of insulin, congestive heart failure, COPD, mild major depression and chronic kidney disease stage 3, presenting to the ER with complaints of epistaxis. Patient denies any nasal trauma or picking nose today but developed a sudden severe nosebleed. The nosebleed stopped after 20. She called EMS and resolved upon their arrival. She states that she passed a ?large clot? and EMS suggested that patient should be seen in the emergency department. She denies any pain or dizziness. Mild hypertensive at 161/59. Plan: Basic labs, further ER eval. Medical Decision Making Medical Decision Making MDM Narrative: 78-year-old female on Plavix and aspirin presents with epistaxis from the right nostril. There is no active bleeding at this time. There is no further workup indicated. Patient was instructed how to best treat epistaxis. She can take Afrin once or twice as needed. She can return for any worsening or concerning symptoms. Differential Diagnosis Differential Diagnoses: The differential diagnosis associated with the pr esentation includes ( Epistaxis) Lab Data [facility] Lab Attestation statement: I reviewed the patient's lab results. 05/24/23 20:17 05/24/23 20:17 Labs: Lab Results 05/24/23 05/24/23 Range/Units 20:17 20:17 WBC 11.1 H (4.8-10.8) X10*3/uL RBC 4.40 (4.20-5.50) X10*6/uL Hgb 10.1 L (12.0-16.0) g/dl Hct 32.4 L (37.0-47.0) % MCV 73.6 L (80.0-98.0) fL MCH 23.0 L (27.0-33.0) pg MCHC 31.2 (31.0-35.0) g/dl RDW 17.4 H (11.0-16.0) % Plt Count 469 H (160-400) X10*3/uL MPV 9.0 L (9.4-12.3) fL Immature Gran % (Auto) 0.4 (0.0-0.4) % Neut % (Auto) 69.7 (45-73) % Lymph % (Auto) 19.9 L (20-40) % [place] % (Auto) 7.3 (2-11) % Eos % (Auto) 2.0 (0-4) % Baso % (Auto) 0.7 (0-2) % Lymph # (Auto) 2.2 (1.2-4.9) X10*3/uL [place] # (Auto) 0.8 (0.1-1.2) X10*3/uL Eos # (Auto) 0.2 (0.0-0.4) X10*3/uL Baso # (Auto) 0.1 (0.0-0.2) X10*3/uL Abs Immat Gran (auto) 0.04 H (0.00-0.03) X10*3/uL Absolute Neuts (auto) 7.8 (2.0-8.3) x10*3/uL Absolute Nucleated RBC 0.000 (0.0-0.012) X10*3/uL Nucleated RBC % (auto) 0.0 (0.0-0.2) /100WBC Sodium 142 (135-145) mmol/L Potassium 3.6 D (3.3-5.1) mmol/L Chloride 102 (96-108) mmol/L Carbon Dioxide 28 (22-29) mmol/L Anion Gap 16 (12-20) BUN 32 H (9-16) mg/dL Creatinine 1.41 H (0.5-1.4) mg/dL Estim Creat Clear Calc 30.1 Estimated GFR 36 Random Glucose 179 H (60-115) mg/dL Calcium 9.5 (8.4-10.2) mg/dL Total Bilirubin 0.3 (0.0-1.0) mg/dL AST 15 (5-31) U/L ALT 12 (0-31) U/L Alkaline Phosphatase 132 H (39-117) U/L Total Protein 7.7 (6.5-8.0) g/dL Albumin 3.4 L (3.5-5.0) g/dL Independent Historian Clinical information obtained from an independent historian. History obtained from or confirmed by: Spouse Chronic Conditions Patient?s care impacted by: Diabetes Discharge Plan Discharge Clinical Impression: Epistaxis Patient Disposition: Home, Self-Care Instructions: Nosebleed (ED) Prescriptions: No Action (DME) lancets [FreeStyle Lancets] 28 gauge misc See Rx Instructions .MEDSUPPLY Qty: 300 2RF Rx Instructions: 3 times a day (DME) pen needle, diabetic [BD Sia 2nd Gen Pen Needle] 32 gauge x 5/32 needle See Rx Instructions .MEDSUPPLY Qty: 400 4RF Rx Instructions: 5 times a day aspirin 81 mg tablet,delayed release (DR/EC) 81 mg PO BEDTIME Qty: 90 0RF (DME) blood pressure monitor Kit See Rx Instructions .Route Qty: 1 0RF Rx Instructions: As directed (DME) lancets [TRUEplus Lancets] 33 gauge misc See Rx Instructions .Route Qty: 100 4RF Rx Instructions: As directed test 4 times a day gabapentin 300 mg capsule 300 mg PO BEDTIME 90 Days Qty: 90 3RF amlodipine 10 mg tablet 10 mg PO DAILY Qty: 30 0RF carvedilol 25 mg Tablet 25 mg PO BID montelukast 10 mg Tablet 10 mg PO BEDTIME Tradjenta 5 mg tablet 5 mg PO DAILY insulin aspart U-100 [Novolog FlexPen U-100 Insulin] 100 unit/mL (3 mL) insulin pen 1 sliding scale dose subcut TIDAC Protocol: Insulin Correction Scale Less than or equal to 110 ---- Give (units): 0 111 to 150 Give (units): 0 151 to 200 Give (units): 2 201 to 250 Give (units): 4 251 to 300 Give (units): 6 301 to 350 Give (units): 8 Greater than 350 Give (units): 10 Call MD if Blood Glucose > : 350 cyanocobalamin (vitamin B-12) 1,000 mcg tablet 1,000 mcg PO DAILY polyethylene glycol 3350 [ClearLax] 17 gram/dose powder 17 g PO DAILY PRN (Reason: Constipation) ferrous sulfate 325 mg (65 mg iron) tablet,delayed release (DR/EC) 325 mg PO DAILY tobramycin-dexamethasone 0.3-0.1 % drops,suspension 1 drp ophthalmic (eye) QID Jardiance 10 mg tablet 10 mg PO DAILY Toujeo SoloStar U-300 Insulin 300 unit/mL (1.5 mL) insulin pen 32 unit subcut DAILY calcium acetate 667 mg tablet 667 mg PO BID ipratropium-albuterol 0.5 mg-3 mg(2.5 mg base)/3 mL Solution For Nebulization 3 ml inhalation RQ4H WHILE AWAKE Qty: 3 0RF ceftriaxone 1 gram Recon Soln 1 g IV Q24H Qty: 4 0RF Solu-Medrol (PF) 40 mg/mL Recon Soln 40 mg IVPUSH Q12H Qty: 10 0RF atorvastatin 40 mg tablet 40 mg PO BEDTIME clopidogrel 75 mg tablet 75 mg PO DAILY torsemide 20 mg tablet 20 mg PO BID folic acid 1 mg tablet 1 mg PO DAILY fluticasone propionate 50 mcg/actuation spray,suspension 1 spray intranasal DAILY PRN (Reason: Allergy Symptoms) (DME) blood-glucose meter [FreeStyle [place] Lite] Kit See Rx Instructions .ROUTE .MEDSUPPLY Qty: 1 Rx Instructions: As directed hydralazine 25 mg tablet 25 mg PO BID Trelegy Ellipta 100-62.5-25 mcg blister with device 1 inh inhalation DAILY 30 Days Qty: 60 11RF (DME) FreeStyle Lite Strips Strip See Rx Instructions .MEDSUPPLY Rx Instructions: 3times a day esomeprazole magnesium 40 mg capsule,delayed release(DR/EC) 40 mg PO DAILY@0630 (DME) Oxygen Home Use Kit See Rx Instructions .Route Rx Instructions: As directed Creon 24,000-76,000 -120,000 unit capsule,delayed release(DR/EC) 1 cap PO QID Rx Instructions: administer with meals and/or snacks clotrimazole-betamethasone 1-0.05 % cream 1 appl topical BID 7 Days Qty: 45 1RF Referrals: Franco Israel [Physician] - 2 days
[2023-05-24 20:28] LABS: MANUAL DIFF FLAG NO
[2023-05-24 20:30] LABS: Basophils Absolute Auto 0.1 X10*3/uL (0.0-0.2); Basophils Percent Auto 0.7 % (0-2); Eosinophils Absolute Auto 0.2 X10*3/uL (0.0-0.4); Hematocrit 32.4 % (37.0-47.0); Hemoglobin 10.1 g/dl (12.0-16.0); Imm Gran Abs Auto 0.04 X10*3/uL (0.00-0.03); Imm Gran Pct Auto 0.4 % (0.0-0.4); Lymphocytes Absolute Auto 2.2 X10*3/uL (1.2-4.9); Lymphocytes Percent Auto 19.9 % (20-40); Mean Corpuscular HGB Conc 31.2 g/dl (31.0-35.0); Mean Corpuscular Volume 73.6 fL (80.0-98.0); Monocytes Absolute Auto 0.8 X10*3/uL (0.1-1.2); Monocytes Percent Auto 7.3 % (2-11); Neutrophils Absolute Auto 7.8 x10*3/uL (2.0-8.3); Neutrophils Percent Auto 69.7 % (45-73); Platelet Count 469 X10*3/uL (160-400); Red Cell Distribution Width 17.4 % (11.0-16.0); White Blood Count 11.1 X10*3/uL (4.8-10.8)
[2023-05-24 20:53] LABS: Alanine Aminotransferase 12 U/L (0-31); Albumin Level 3.4 g/dL (3.5-5.0); Alkaline Phosphatase 132 U/L (39-117); Anion Gap 16 (12-20); Aspartate Amino Transferase 15 U/L (5-31); Bilirubin Total 0.3 mg/dL (0.0-1.0); Blood Urea Nitrogen 32 mg/dL (9-16); Calcium 9.5 mg/dL (8.4-10.2); Carbon Dioxide 28 mmol/L (22-29); Chloride 102 mmol/L (96-108); Creatinine Clr Calc Pharmacy 30.1; Estimated Glomerular Filt Rate 36; Glucose Random 179 mg/dL (60-115); Potassium 3.6 mmol/L (3.3-5.1); Sodium 142 mmol/L (135-145); Total Protein 7.7 g/dL (6.5-8.0)
[2023-05-24 21:26] VITALS: BP 160/60; PULSE 69; RESP 16; TEMP 36.8
== END 2023-05-24 22:08 | disposition home or self-care (01) ==
PROVIDERS: Physician Assistant Medical; Emergency Provider Emergency Medicine; PCP Internal Medicine
DX: R04.0 Epistaxis (principal); E11.9 Type 2 diabetes mellitus without complications; Z79.4 Long term (current) use of insulin; Z79.01 Long term (current) use of anticoagulants; Z87.891 Personal history of nicotine dependence; Z79.899 Other long term (current) drug therapy
CPT/HCPCS: 36415; 80053; 85025; 99282; 99283

== ENCOUNTER 2023-06-02 08:39 | Outpatient (REF) | payer OTHER, SELFPAY ==
[2023-06-02 08:59] LABS: MANUAL DIFF FLAG NO
[2023-06-02 09:11] LABS: Basophils Absolute Auto 0.1 X10*3/uL (0.0-0.2); Basophils Percent Auto 0.7 % (0-2); Eosinophils Absolute Auto 0.3 X10*3/uL (0.0-0.4); Eosinophils Percent Auto 2.6 % (0-4); Hematocrit 35.4 % (37.0-47.0); Imm Gran Abs Auto 0.04 X10*3/uL (0.00-0.03); Imm Gran Pct Auto 0.3 % (0.0-0.4); Lymphocytes Absolute Auto 3.3 X10*3/uL (1.2-4.9); Lymphocytes Percent Auto 27.4 % (20-40); Mean Corpuscular HGB Conc 31.1 g/dl (31.0-35.0); Mean Corpuscular Hemoglobin 22.5 pg (27.0-33.0); Mean Corpuscular Volume 72.5 fL (80.0-98.0); Mean Platelet Volume 8.8 fL (9.4-12.3); Monocytes Absolute Auto 0.7 X10*3/uL (0.1-1.2); Monocytes Percent Auto 6.2 % (2-11); Neutrophils Absolute Auto 7.5 x10*3/uL (2.0-8.3); Neutrophils Percent Auto 62.8 % (45-73); Platelet Count 514 X10*3/uL (160-400); Red Blood Count 4.88 X10*6/uL (4.20-5.50); Red Cell Distribution Width 17.6 % (11.0-16.0); White Blood Count 11.9 X10*3/uL (4.8-10.8)
[2023-06-02 09:50] LABS: Alanine Aminotransferase 14 U/L (0-31); Albumin Level 3.4 g/dL (3.5-5.0); Alkaline Phosphatase 125 U/L (39-117); Anion Gap 13 (12-20); Aspartate Amino Transferase 17 U/L (5-31); Bilirubin Total 0.2 mg/dL (0.0-1.0); Blood Urea Nitrogen 27 mg/dL (9-16); Calcium 9.4 mg/dL (8.4-10.2); Carbon Dioxide 29 mmol/L (22-29); Chloride 105 mmol/L (96-108); Cholesterol 222 mg/dL (<200); Estimated Glomerular Filt Rate 38; Glucose Fasting 110 mg/dL (60-99); HDL Cholesterol 47 mg/dL (>40); Iron 15 mcg/dL (30-160); LDL Cholesterol Calculated 143 mg/dL (<100); Percent Iron Saturation 6 % (15-50); Potassium 3.6 mmol/L (3.3-5.1); Sodium 143 mmol/L (135-145); Total Iron Binding Capacity 232 mcg/dL (228-428); Total Protein 7.7 g/dL (6.5-8.0); Triglycerides 162 mg/dL (<150); Unsaturated Iron Binding 217 ug/dL
[2023-06-02 10:04] LABS: Vitamin D 25-OH Total 30.1 ng/mL (>30)
[2023-06-02 10:19] LABS: Folate 16.2 ng/mL (> or = 4.0); Vitamin B12 664 pg/mL (200-900)
[2023-06-02 11:09] LABS: Creatinine Urine 40.69 mg/dL
[2023-06-02 11:20] LABS: Microalbum/Creatinine Ratio Ur 2088.9 ug/mg cr (<30)
[2023-06-09 19:38] LABS: NT-proBNP 433 pg/mL (<450)
== END 2023-06-02 08:40 | disposition home or self-care (01) ==
LOC: HO.LAB 08:39
PROVIDERS: PCP Internal Medicine; Visit Provider Internal Medicine
DX: E78.5 Hyperlipidemia, unspecified (principal); E53.8 Deficiency of other specified B group vitamins; I50.9 Heart failure, unspecified; E11.9 Type 2 diabetes mellitus without complications; D64.9 Anemia, unspecified; E55.9 Vitamin D deficiency, unspecified
CPT/HCPCS: 36415; 80053; 80061; 82043; 82306; 82607; 82746; 83540; 83880; 85025

== ENCOUNTER 2023-06-10 10:53 | Outpatient (AMB) | payer OTHER, SELFPAY ==
[2023-06-10 11:09] VITALS: BP 152/58; BMI 40.7
--- NOTE | 2023-06-10 11:09 | A.OFFPC_ITS ---
Vital Signs 06/10/23 11:09 Height 4 ft 9 in Weight 188 lb BMI 40.7 BP 152/58 H Blood Pressure Location Lt brachial Position Sitting Intake Visit Reasons: dm Intake Note: Patient here for a follow up DM Underwater Photographer Required: No Accompanied by: TRACTOR TRAILER MOVING VAN DRIVER Allergies acetaminophen [From Percocet] Allergy (Intermediate, Verified 06/10/23 11:33) Itching ibuprofen [From Motrin] Allergy (Intermediate, Verified 06/10/23 11:33) High Blood Pressure, Rash oxycodone [From Percocet] Allergy (Intermediate, Verified 06/10/23 11:33) Itching Medication List - Last Reconciled 06/10/23 by Shelby Golden MD amlodipine 10 mg PO DAILY aspirin 81 mg PO BEDTIME blood pressure monitor As directed blood sugar diagnostic (FreeStyle Lite Strips) 3times a day blood-glucose meter (FreeStyle [place] Lite kit) As directed calcium acetate 667 mg PO BID clopidogrel 75 mg PO DAILY clotrimazole-betamethasone 1-0.05 % 1 appl topical BID 7 days cyanocobalamin (vitamin B-12) 1,000 mcg PO DAILY empagliflozin (Jardiance) 10 mg PO DAILY esomeprazole magnesium 40 mg PO DAILY@0630 fluticasone propionate 50 mcg/actuation 1 spray intranasal DAILY PRN khptaglzrnj-ibbntjzrc-ujpzyuhp 100-62.5-25 mcg (Trelegy Ellipta) 1 inh inhalation DAILY 30 days folic acid 1 mg PO DAILY FreeStyle Lancets (lancets) 3 times a day NS gabapentin 300 mg PO BEDTIME 90 days hydralazine 25 mg PO BID insulin aspart U-100 (Novolog FlexPen U-100 Insulin aspart) 1 sliding scale dose See Protocol subcut TIDAC insulin glargine U-300 conc (Toujeo SoloStar U-300 Insulin) 32 units subcut DAILY ipratropium-albuterol 0.5 mg-3 mg(2.5 mg base)/3 mL 3 mL inhalation RQ4H WHILE AWAKE lancets (TRUEplus Lancets) As directed test 4 times a day linagliptin (Tradjenta) 5 mg PO DAILY jzsfpk-yimkkkce-qgllhgh 24,000-76,000 -120,000 unit (Creon) 1 cap PO QID montelukast 10 mg PO BEDTIME Oxygen Home Use As directed pen needle, diabetic (BD Sia 2nd Gen Pen Needle) 5 times a day polyethylene glycol 3350 (ClearLax) 17 grams PO DAILY PRN tobramycin-dexamethasone 0.3-0.1 % 1 drp ophthalmic (eye) QID torsemide 20 mg PO BID Tobacco use date assessed: 11/13/22 Fall risk assessment: No Falls in past year Last assessed Fall Risk: 06/10/23 Dental Screening Dental Screen Date: 06/10/23 Did you have a dental visit in the last 12 months?: No Did you have a dental problem in the last 6 months where you did not have access to dental care?: No Was dental information given to patient?: Patient has dentist HPI HPI Comments History of Present Illness Details This is a 78-year-old female with hypertension, diabetes mellitus type 2, hyperlipidemia, morbid obesity, congestive heart failure and COPD that comes today complaining of dysuria accompanied by TRACTOR TRAILER MOVING VAN DRIVER. Dysuria started few days ago. I will order urine culture. Walks with a walker for gait stability. Blood pressure elevated and I will increase hydralazine from 25 mg twice a day to 25 mg 3 times a day. A1c within goal. LDL not on goal and I will add atorvastatin. She is morbidly obese with BMI of 40.7 and was advised to do diet and exercise to reach BMI goal less than 30. She denies gaining 5 lb and seems euvolemic. Congestive heart failure is follow by cardiology. Has COPD stable with Trelegy and follow by pulmonology. 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 Aortic stenosis CKD (chronic kidney disease) stage 3, GFR 30-59 ml/min Dyslipidemia Diabetic polyneuropathy associated with type 2 diabetes mellitus Diabetic nephropathy associated with type 2 diabetes mellitus Chronic kidney disease Hypertension Asthma Thalamic pain syndrome GERD (gastroesophageal reflux disease) Morbid obesity Surgical History H/O aortic valve replacement History of breast lump/mass excision History of tubal ligation History of cholecystectomy Family History Sister History of renal pelvis cancer Father Suicide Mother Lung disease Diabetes mellitus Social History Household Members: Family Housing: House Do you presently have visiting nurse or other home services: Yes (heel pricker) Alcohol intake: never Patient Tobacco Use Status: Former Tobacco user Tobacco use type: Cigarette Years Smoked: 5 years e-Cigarette/Vaping Use: Never Used Second Hand Smoke Exposure: No service: No Current occupational status: unemployed and disabled Gender identity: Female Cognitive needs: Yes Hearing needs: No Vision needs: No Female Reproductive History Menstrual Age of Menarche: 10 Questionnaire Thrive Questionnaire Date Thrive assessed: 04/17/23 JES-7 AMB Questionnaire JES-7 Date JES - 7 assessed: 02/01/23 Source: Developed by Drs. Farhad Murdock, Caron Elkins, El Esqueda and colleagues, with an educational susanne from [employer]. Review of Systems Const All systems reviewed & are unremarkable except as noted in HPI and below Eyes Reports no additional complaints, Denies change in vision and Denies other visual disturbances Card Denies chest pain at rest, Denies chest pain with activity, Denies edema, Denies irregular heart rhythm, Denies claudication, Denies dyspnea, Denies dyspnea on exertion, Denies orthopnea, Denies paroxysmal nocturnal dyspnea and Denies slow heart rate Resp Denies cough, Denies dyspnea and Denies dyspnea on exertion GI Denies abdominal pain, Denies change in bowel habits, Denies excessive flatus, Denies nausea and Denies vomiting Denies urinary incontinence, Reports urinary hesitancy and Reports urinary urgency Musc Denies abnormal gait, Denies atrophy, Denies deformity and Denies limited range of motion Skin/Breast Denies bleeding lesions, Denies changing lesions and Denies rash Neuro Denies abnormal gait, Denies behavioral changes and Denies lack of coordination Psych Denies behavioral changes Endo Denies cold intolerance Luis Antonio/Lymph Denies easy bleeding and Denies easy bruising Aller/Immun Denies urticaria Physical exam (Primary Care) Vital Signs: Last Vital Signs BP 152/58 H 06/10/23 11:09 BMI result Body Mass Index 40.7 Tobacco/Smoking Status: Tobacco use Status Tobacco use date assessed 11/13/22 06/10/23 11:17 Patient Tobacco Use Status Former Tobacco user 06/10/23 11:17 Tobacco use type Cigarette 06/10/23 11:17 e-Cigarette/Vaping Use Never Used 06/10/23 11:17 Thrive Assessment: Date of Thrive Assessment Date Thrive assessed 04/17/23 06/10/23 11:17 Const Limitations: ambulation with walker Eyes General: appearance normal, both eyes and all related structures Eyelids: Yes eyelids normal Conjunctivae: conjunctivae normal Neck Neck: Yes normal visual inspection and Yes supple Resp Effort & Inspection: normal respiratory effort Auscultation: clear to auscultation bilaterally Cardio Jugular venous distension: no JVD Rate: regular rate Rhythm: regular rhythm Heart sounds: S1 normal heart sound present and S2 normal heart sound present Extrem General: Yes full ROM Results AMB Urinalysis, Automated UA Leukoctes 3 Felton/uL Last Edit by Morenita Banegas [facility] on 06/10/23 11:26 UA Nitrite Negative Last Edit by Morenita Banegas [facility] on 06/10/23 11:26 UA Urobilinogen 0.2 mg/dL Last Edit by Morenita Banegas [facility] on 06/10/23 11: 26 UA Protein 2 mg/dL Last Edit by Morenita Banegas [facility] on 06/10/23 11:26 UA pH 6.0 Last Edit by Morenita Banegas [facility] on 06/10/23 11:26 UA Blood 1 Leandro/uL Last Edit by Morenita Banegas [facility] on 06/10/23 11:26 UA Specific [place] 1.015 Last Edit by Morenita Banegas [facility] on 06/10/23 11 :26 UA Ketone Negative Last Edit by Morenita Banegas [facility] on 06/10/23 11:26 UA Bilirubin 0 mg/dL Last Edit by Morenita Banegas [facility] on 06/10/23 11:26 UA Glucose 3 mg/dL Last Edit by Morenita Banegas [facility] on 06/10/23 11:26 Results Reviewed Results Reviewed: Laboratory Last Values Urine pH (Auto) 6.0 06/10/23 11:18 Specific [place] (Auto) 1.015 06/10/23 11:18 Urine Protein (Auto) 2 mg/dL 06/10/23 11:18 Glucose (UA)(Auto) 3 mg/dL 06/10/23 11:18 Urine Ketones (Auto) Negative 06/10/23 11:18 Urine Blood (Auto) 1 Leandro/uL 06/10/23 11:18 Urine Nitrite (Auto) Negative 06/10/23 11:18 Urine Bilirubin (Auto) 0 mg/dL 06/10/23 11:18 Urine Urobilinogen (Auto) 0.2 mg/dL 06/10/23 11:18 Leukocyte Esterase (Auto) 3 Fel[place]/uL 06/10/23 11:18 Assessment and Plan Assessment & Plan (1) Congestive heart failure: Code(s): I50.9 - Heart failure, unspecified Plan: Use diuretics as needed. Follow-up with Cardiology. The goal is to not gain 5 lb in a week. (2) Morbid obesity with BMI of 40.0-44.9, adult: Code(s): E66.01 - Morbid (severe) obesity due to excess calories; Z68.41 - Body mass index [BMI] 40.0-44.9, adult Plan: Start diet and exercise. BMI goal is less than 30. (3) T2DM (type 2 diabetes mellitus): Code(s): E11.9 - Type 2 diabetes mellitus without complications Qualifiers: Diabetes mellitus intermediate manager insulin use: with mcc use Diabetes mellitus complication status: with kidney complications Diabetes mellitus complication detail: with chronic kidney disease Chronic kidney disease stage: stage 2 (mild) Qualified Code(s): E11.22 - Type 2 diabetes mellitus with diabetic chronic kidney disease; N18.2 - Chronic kidney disease, stage 2 (mild); Z79.4 - correction (current) use of insulin Plan: Continue Jardiance and insulin. A1c goal is equal or less than 7%. (4) Hyperlipidemia LDL goal <70: Code(s): E78.5 - Hyperlipidemia, unspecified Plan: Start statins. LDL goal is less than 70. (5) COPD (chronic obstructive pulmonary disease): Code(s): J44.9 - Chronic obstructive pulmonary disease, unspecified Plan: Continue Trelegy. Use rescue inhaler as needed. (6) Hypertension: Code(s): I10 - Essential (primary) hypertension Plan: Continue amlodipine. Increase hydralazine from 25 mg to 3 times a day. Blood pressure goal is equal or less than 130/80. Recheck blood pressure with nurse navigator in 3 weeks. Orders: Orders Microalbumin, Random (w Creat) 4 Months E11.9 - Type 2 diabetes mellitus without complications Complete Blood Count Auto Diff 4 Months D64.9 - Anemia, unspecified Comprehensive [place]. Panel Fast 4 Months E66.01 - Morbid (severe) obesity due to excess calories, Z68.41 - Body mass index [BMI] 40.0-44.9, adult AMB Urinalysis Automated Today R30.0 - Dysuria Urine Culture Today R30.0 - Dysuria Lipid Panel 4 Months E78.5 - Hyperlipidemia, unspecified Vitamin D 25-OH Total 4 Months E55.9 - Vitamin D deficiency, unspecified IRON PROFILE 4 Months D64.9 - Anemia, unspecified Medications: New ferrous sulfate 325 mg PO DAILY 90 days 90 tabs 1RF D50.9 - Iron deficiency anemia, unspecified nitrofurantoin macrocrystal must administer with a meal/food 100 mg PO BID 7 days 14 caps 0RF atorvastatin 20 mg PO BEDTIME 90 days 90 tabs 1RF E78.5 - Hyperlipidemia, unspecified atorvastatin 20 mg PO BEDTIME 90 days 90 tabs 1RF E78.5 - Hyperlipidemia, unspecified Changed From empagliflozin (Jardiance) 10 mg PO DAILY To empagliflozin (Jardiance) 10 mg PO DAILY 90 days 90 tabs 1RF From hydralazine 25 mg PO BID To hydralazine 25 mg PO TID 90 days 270 tabs 1RF Refilled amlodipine 10 mg PO DAILY 30 tabs 0RF Coding Level of Care Code Est Pt Level 4 (30074) Diagnoses Congestive heart failure I50.9 Morbid obesity with BMI of 40.0-44.9, adult E66.01; Z68.41 Type 2 diabetes mellitus with stage 2 chronic kidney disease, with long-term current use of insulin E11.22; N18.2; Z79.4 Diabetes mellitus mcc insulin use: with intermediate manager use Diabetes mellitus complication status: with kidney complications Diabetes mellitus complication detail: with chronic kidney disease Chronic kidney disease stage: stage 2 (mild) Hyperlipidemia LDL goal <70 E78.5 COPD (chronic obstructive pulmonary disease) J44.9 Essential hypertension I10 Time Spent (min) 24
== END 2023-06-10 11:45 | disposition home or self-care (01) ==
PROVIDERS: Visit Provider Internal Medicine
DX: I13.0 Hypertensive heart and chronic kidney disease with heart failure and stage 1 through stage 4 chronic kidney disease, or unspecified chronic kidney disease (principal); E11.22 Type 2 diabetes mellitus with diabetic chronic kidney disease; N18.2 Chronic kidney disease, stage 2 (mild); I50.9 Heart failure, unspecified; R30.0 Dysuria; E66.01 Morbid (severe) obesity due to excess calories; Z68.41 Body mass index [BMI] 40.0-44.9, adult; Z79.4 Long term (current) use of insulin; E78.5 Hyperlipidemia, unspecified; J44.9 Chronic obstructive pulmonary disease, unspecified
CPT/HCPCS: 81003; 99214

== ENCOUNTER 2023-06-10 11:28 | Outpatient (REF) | payer OTHER, SELFPAY | END 2023-06-10 11:29 | disposition home or self-care (01) | LOC: HO.LAB 11:28 | PROVIDERS: Visit Provider Internal Medicine | DX: R30.0 Dysuria (principal) | CPT/HCPCS: 87086; 87088; 87186 ==

== ENCOUNTER 2023-07-13 08:15 | Outpatient (REF) | payer OTHER, SELFPAY | END 2023-07-13 08:16 | disposition home or self-care (01) | LOC: HO.LAB 08:15 | PROVIDERS: PCP Internal Medicine; Visit Provider Internal Medicine | DX: Z13.89 Encounter for screening for other disorder (principal) ==

== ENCOUNTER 2023-07-15 12:22 | Outpatient (REF) | payer OTHER, SELFPAY ==
[2023-07-16 11:12] LABS: BV Int Neg Control Negative (Negative); BV Int Pos Control Positive (Positive)
== END 2023-07-15 12:23 | disposition home or self-care (01) ==
LOC: HO.LNP 12:22
PROVIDERS: PCP Internal Medicine; Visit Provider Obstetrics & Gynecology
DX: N76.0 Acute vaginitis (principal); R32 Unspecified urinary incontinence
CPT/HCPCS: 87480; 87510; 87660; 99212

== ENCOUNTER 2023-07-15 12:22 | Outpatient (AMB) | payer OTHER, SELFPAY ==
[2023-07-15 12:48] VITALS: BP 170/58; BMI 41.8
--- NOTE | 2023-07-15 12:48 | A.OFFVIS_ITS ---
Intake Vital Signs 07/15/23 12:48 Height 4 ft 9 in Weight 193 lb BMI 41.8 BP 170/58 H Intake Visit Reasons: vag itch eval Optometrist/Practice Owner Required: Yes Optometrist/Practice Owner Language: Sales Estimator Name: Shelly Marshall Information Interpreted: non-clinical & clinical Inspector Rag Sorting: Inspector Rag Sorting Present (Shelly) Accompanied by: Allergies acetaminophen [From Percocet] Allergy (Intermediate, Verified 07/15/23 12:58) Itching ibuprofen [From Motrin] Allergy (Intermediate, Verified 07/15/23 12:58) High Blood Pressure, Rash oxycodone [From Percocet] Allergy (Intermediate, Verified 07/15/23 12:58) Itching Is last menstrual period known: No Post menopausal: Yes Patient : No HPI HPI Comments History of Present Illness Details Presenting complaining of vulvovaginal itching with no associated vaginal discharge or odor over the last few weeks. 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 Aortic stenosis CKD (chronic kidney disease) stage 3, GFR 30-59 ml/min Dyslipidemia Diabetic polyneuropathy associated with type 2 diabetes mellitus Diabetic nephropathy associated with type 2 diabetes mellitus Chronic kidney disease Hypertension Asthma Thalamic pain syndrome GERD (gastroesophageal reflux disease) Morbid obesity Surgical History H/O aortic valve replacement History of breast lump/mass excision History of tubal ligation History of cholecystectomy Family History Sister History of renal pelvis cancer Father Suicide Mother Lung disease Diabetes mellitus Social History Household Members: Family Housing: House Do you presently have visiting nurse or other home services: Yes (door paneler) Alcohol intake: never Patient Tobacco Use Status: Former Tobacco user Tobacco use type: Cigarette Years Smoked: 5 years e-Cigarette/Vaping Use: Never Used Second Hand Smoke Exposure: No service: No Current occupational status: unemployed and disabled Gender identity: Female Cognitive needs: Yes Hearing needs: No Vision needs: No Female Reproductive History Menstrual Age of Menarche: 10 control method: permanent sterilization Date of Mammogram: 02/26/23 Date of last Bone Density Screenin02/26/23 Review of Systems Const All systems reviewed & are unremarkable except as noted in HPI and below Physical Exam Vital Signs: Last Vital Signs BP 170/58 H 07/15/23 12:48 BMI result Body Mass Index 41.8 General: Yes no CVA tenderness External Female Exam: normal external appearance and normal appearance of the urethra Speculum Exam - Vagina: normal appearance of the vagina, normal palpation, no lesions and no masses Speculum Exam - Cervix: normal appearance of the cervix, normal palpation, no lesions, no masses and nontender Bimanual exam- vagina & uterus: normal bimanual exam, normal palpation, uterine size normal, normal palpation, uterine shape normal, No Cervical tenderness present and non-tender Bimanual Exam- Adnexa, other: normal adnexae Back/Spine/Pelvis Back: no CVA tenderness Assessment & Plan Assessment & Plan (1) Vulvovaginitis: Code(s): N76.0 - Acute vaginitis Plan: Discussed with the patient differential diagnosis of vulvovaginitis including candidal vulvovaginitis, allergic reaction to the urine incontinence pads and atrophic vaginitis. Will treat with Terazol 0.8% q.h.s. for 3 days, and refer to urology for urine incontinence management. instructions given the patient to call in case symptoms not improve (2) Urine incontinence: Code(s): R32 - Unspecified urinary incontinence Plan: Discussed with the patient the different types of Urine incontinence, stress urinary incontinence, intrinsic sphincter deficiency, overactive bladder and its work up. We will refer to Urology. All questions answered, the patient verbalized understanding. Orders: Referrals Urology Referral R32 - Unspecified urinary incontinence Medications: New terconazole 0.8% 1 appful vaginal BEDTIME 20 grams 0RF 3 days Coding Level of Care Code Est Pt Level 3 (10114) Diagnoses Vulvovaginitis N76.0 Urine incontinence R32
== END 2023-07-15 14:16 | disposition home or self-care (01) ==
LOC: HO.HWS 12:22
PROVIDERS: PCP Internal Medicine; Visit Provider Obstetrics & Gynecology
DX: N76.0 Acute vaginitis (principal); R32 Unspecified urinary incontinence
CPT/HCPCS: 99213

== ENCOUNTER 2023-07-19 13:27 | Outpatient (AMB) | payer OTHER, SELFPAY ==
[2023-07-19 13:28] VITALS: BMI 39.6
--- NOTE | 2023-07-19 13:28 | MHC.OFFVIS ---
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 The patient had bilateral airspace disease the due to COVID. Course was complicated by renal failure requiring dialysis and anemia requiring blood transfusions. The patient recovered from a very serious case of COVID. She still complaining of shortness of breath specially with activity moderate in severity. She has significant aches and pains throughout her body. Moderate in severity. The patient also has significant fatigue and daytime drowsiness. She does have significant snoring noted by her daughter. Her Montebello score is elevated 16/24. At this point the patient needs to undergo a sleep study. Will make arrangements for her to do so. In the meantime for her asthma she does have 1 inhaler. She does not know the name. She does not take it daily. The patient does need to be on maintenance inhaler this time. In the meantime the patient does have a severe aortic stenosis. She was supposed to have a surgical evaluation. But, then she became sick and was not able to follow through. Patient is concerned open heart surgery. She is wondering if any other alternatives such as the endovascular approach be an option for her specially with her worsening medical conditions. 06/23/2021 the patient is here for a pulmonary follow-up visit. The patient has been having difficulties with her elevated blood pressures and also significant headaches. She is following closely with her primary care doctor. She did go to the ER where she had a CT scan of the brain. In addition to that she has been complaining of some shortness of breath. We did review her home sleep study. It demonstrates significant hypoxemia and also moderate to severe Obstructive sleep apnea. It is likely did this is accounting for some of the elevations in her blood pressure and headaches. Her Montebello score continues to be elevated 09/26. At this point will request that she start CPAP therapy as soon as possible. Patient did have her sleep study some months ago and therefore I will try to facilitate the process. She continues with respiratory therapy. 08/21/2021 and the patient is here for pulmonary follow-up visit. She has not yet received her CPAP machine. She has been very frustrated. She continues to have significant daytime drowsiness headaches and also has significant cardiovascular risk factors. I did call the [employer]. The working with her insurance company. The to need 1 more progress note from prior to ordering the sleep study. I quickly fact that over to them and they have all the information available. No go back to the insurance company to try to facilitate this as soon as possible. They have all the information to [facility] and all the notes at this time. The patient continues use her respiratory therapy with good effect. She has not had to use her rescue inhaler. Will follow-up in 2-3 months and she is to bring her CPAP machine with her to the next visit. 11/27/2021 the patient is here for pulmonary follow-up visit. She has yet to receive her CPAP. I did call again the [employer]. They will looking to see if they have 1 available for her based on the fact that she does have severe sleep apnea. in the meantime the patient does complaint of back pain and also shoulder pain. There is a respiratory phasic component although I believe is more musculoskeletal. In the past she was seen by pain management there at [place] but then the doctor left. She was lost to follow-up. I will make a referral back to our pain clinic in order for her to continue her care. In the meantime she does have significant cardiovascular risk factors and started the PAP therapy is crucial. Therefore I did call the [employer] in order to provide machine as well as possible. I also told the patient that if she does not hear anything in the next 2 weeks she is to call me in order to further address it with the [employer]. Her respiratory status has been stable. The patient continues to use her Symbicort as prescribed. She has not required her short-acting beta agonist. She continues with her diuresis. 02/12/2022 the patient is here for a pulmonary follow-up visit. She continues use her CPAP. The CPAP therapy continues to be affecting beneficial. This point I do not have access to her machine for download. She does have very severe sleep apnea and she understands she needs to continue using the PAP therapy. In the meantime she continues to headaches. She also has severe neck discomfort at times. She has significant spinal stenosis and is currently working nor surgery and likely will need surgery soon. The patient was made aware that if she develops any new neurological symptoms at that will be considered a medical emergency from a asthma standpoint she continues to uses Symbicort twice a day. She does need a rescue inhaler to have available. She complains or sore throat and has been coughing lately. She was evaluated in the urgent care recently because of a viral syndrome and worsening cough. She was prescribed prednisone with partial resolution of the symptoms. She is still coughing some she is concerned with her ongoing symptoms. 06/18/2022 the patient is here for a pulmonary follow-up visit. Overall she is doing better from a respiratory status. Denies any significant shortness of breath. she did have a repeat CT scan of the chest sometime in May 2022 demonstrating interval resolution of the interstitial lung disease and pneumonia that likely with result of COVID-19. There is a drastic improvement. She still has calcified pulmonary nodule. She also has increased cardiac size. The patient does have daytime drowsiness. Her Montebello score is Elevated 24. Patient has not been using her CPAP. The patient is no longer active with the [employer] regarding supplies. Will go ahead and order a repeat study in order to assess his degree of sleep apnea and see if we need to continue with CPAP therapy. The patient also needs to follow-up in the surgery regarding her potential surgery that is been postpone. The patient is also followed closely with cardiology. 09/14/2022 the patient is here for a pulmonary follow-up visit. She has been very short of breath and uncomfortable. She recently did undergo an echocardiogram demonstrating severe aortic stenosis. She is currently being evaluated for potential aortic valve replacement. In the meantime she continues to have significant shortness of breath in addition to epigastric discomfort. She also complains of headaches and other myalgias. Patient is very uncomfortable with any walking activity. She does use a cane. She has been using her respiratory therapy although has not been helpful. She denies any fevers or chills denies any significant coughing. She did have a CT scan of the chest that was done the end of July that I personally reviewed demonstrating significant ground-glass opacities suggesting of pulmonary edema likely in this case cardiogenic for valvular disease. The patient also had bilateral pleural effusions. She responded well to diuretics. She recently was seen by her phy therapist to increase her diuretics although she has not been able to get the new prescription as of yet. In view of her ongoing symptoms we did go for 6 minutes walk test. The patient did desaturate down to 88% on room air with activity. She was then placed on 2 L improving her pulse ox to 94% with activity. Therefore the patient should be continued on the 2 L continues with activity and also should use it for sleep. I will request this from 1 of the local [employer] companies to provide her. The patient did feel better on the oxygen which is reassuring I do believe that is primarily due to her congestive heart failure. The patient also would increase the diuresis as well X3 days. 11/13/2022 the patient is here for a pulmonary follow-up visit. Since we last spoke the patient did have to be admitted to the hospital with worsening shortness of breath and chest discomfort. She was admitted briefly to [facility]. Ultimately transferred to [facility]. There she did have a cardiac catheterization. She also had a CT scan to assess her aortic valve. The patient is noted to have pulmonary edema in addition to bilateral pleural effusions. She was diuresed aggressively. The patient overall feels better. She is scheduled to undergo a trans continue as aortic valve replacement sometime at the end of the month. In the meantime she continues to have the oxygen available. She does use it with activity. I am hopeful that once she gets better from her surgery we will reassess her respiratory status and hopefully she is able to be off the oxygen altogether. She is also having issues with her inhalers. She is not sure how to use it. I sent her Trelegy although currently she has a Breo inhaler with her. We did go over how to use the Ellipta device. She is going to then brain picker the Trelegy at the pharmacy. 03/15/2023 the patient is here for a pulmonary follow-up visit. The patient is feeling a lot better. The patient has been having hard time caring her oxygen. At this point the patient is doing better off the oxygen. Although she needs to be further evaluated from a cardiac standpoint. Patient did have a chest x-ray back in October demonstrating bilateral pleural effusions likely from congestive heart failure and her CV aortic stenosis. Her last echocardiogram on February 2023 documented the severe aortic valve stenosis and also significant diastolic dysfunction. She needs to follow-up with cardiology. She does have off follow-up with [facility] in the coming week. There a copy of the echocardiogram. She already had a catheterization. She needs to go back to [facility] to get situated with trans catheter aortic valve replacement. In the meantime the patient is doing much better she does not require the oxygen at rest. She does knee with activity issue just keep it for a little bit longer until she gets her valve fixed. 07/19/2023 the patient Has a telehealth visit today. The patient has been complaining of worsening cough. moderate severity. positive sick contacts. Denies any wheezing. She is concerned she could have pneumonia. She had surgery back several months ago. She is concerned about the use of prednisone in view of her recent surgery. Therefore will hold off on any steroid therapy at this time. The patient does have a respiratory therapy. After surgery her respiratory status has not better and she has not required her oxygen. she is not using the oxygen and she does not want to use it. She wants it to be picked up. I will request from the DME in order for them to do so. Specially if she is not using it. When she does come back to the office will do additional testing. 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 Aortic stenosis CKD (chronic kidney disease) stage 3, GFR 30-59 ml/min Dyslipidemia Diabetic polyneuropathy associated with type 2 diabetes mellitus Diabetic nephropathy associated with type 2 diabetes mellitus Chronic kidney disease Hypertension Asthma Thalamic pain syndrome GERD (gastroesophageal reflux disease) Morbid obesity Surgical History H/O aortic valve replacement History of breast lump/mass excision History of tubal ligation History of cholecystectomy Family History Sister History of renal pelvis cancer Father Suicide Mother Lung disease Diabetes mellitus Social History Household Members: Family Housing: House Do you presently have 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) Alcohol intake: never Patient Tobacco Use Status: Former Tobacco user Tobacco use type: Cigarette Years Smoked: 5 years e-Cigarette/Vaping Use: Never Used Second Hand Smoke Exposure: No service: No Current occupational status: unemployed and disabled Gender identity: Female Cognitive needs: Yes Hearing needs: No Vision needs: No Female Reproductive History Menstrual Age of Menarche: 10 Review of Systems Const Reports fatigue and Denies night sweats ENT Denies change in voice, Denies lip swelling, Denies mouth pain, Reports nasal congestion, Reports nasal discharge, Reports neck pain, Reports sore throat and Denies tongue swelling Card Denies chest pain and Reports dyspnea on exertion Resp Reports chest congestion, Reports cough and Reports dyspnea on exertion GI Denies abdominal pain Reports no additional complaints Musc Reports back pain, Reports myalgias, Reports arthralgias, Reports joint swelling, Reports limited range of motion and Reports neck pain Neuro Denies Neuro-related abnormal movements Psych Denies no additional complaints Endo Reports fatigue Luis Antonio/Lymph Denies easy bleeding and Denies lymphadenopathy Aller/Immun Denies lip swelling and Denies tongue swelling Physical Exam Vital Signs: BMI result Body Mass Index 39.6 Last Vital Signs Temp 98 F 04/17/23 12:00 Pulse 64 04/17/23 12:00 Resp 19 04/17/23 12:00 BP 134/67 04/17/23 12:00 Pulse Ox 93 04/17/23 12:00 O2 Del Method Oxymask 04/17/23 12:00 O2 Flow Rate 2.5 04/17/23 12:00 Oxygen Flow Rate 10 04/16/23 12:39 BMI result Body Mass Index 43.7 Const General: comfortable Orientation/consciousness: patient oriented x3 Resp Effort & Inspection: able to speak in complete sentences Neuro General: patient oriented x3 Assessment & Plan Assessment & Plan (1) JOSE (obstructive sleep apnea): Code(s): G47.33 - Obstructive sleep apnea (adult) (pediatric) (2) Asthma: Code(s): J45.909 - Unspecified asthma, uncomplicated Qualifiers: Asthma complication type: uncomplicated Asthma persistence: persistent Asthma severity: moderate Qualified Code(s): J45.40 - Moderate persistent asthma, uncomplicated (3) Aortic stenosis: Code(s): I35.0 - Nonrheumatic aortic (valve) stenosis Qualifiers: Cardiac valve disease etiology: nonrheumatic Qualified Code(s): I35.0 - Nonrheumatic aortic (valve) stenosis (4) Dyspnea: Code(s): R06.00 - Dyspnea, unspecified Qualifiers: Dyspnea type: dyspnea on exertion Qualified Code(s): R06.09 - Other forms of dyspnea Plan Would like to discontinue oxygen start doxycycline test for covid CXR continue Trelegy daily Short-acting beta agonist as needed F/U 2-3 months Orders: Orders XR chest 2V Today R06.00 - Dyspnea, unspecified Medications: New doxycycline hyclate 100 mg PO BID 10 days 20 caps 0RF Telehealth Telehealth Location of provider rendering services: practice address Location of patient: address on file Patient Identification confirmed using: Name, : Yes Telehealth method: voice only Patient verbally consented to treatment: Yes Patient verbally consented to billing insurance company: Yes Patient informed of any privacy concerns related to visit: Yes Coding Level of Care Code Tele Est Pt Level 4 (95910) Diagnoses JOSE (obstructive sleep apnea) G47.33 Moderate persistent asthma without complication J45.40 Asthma complication type: uncomplicated Asthma persistence: persistent Asthma severity: moderate Nonrheumatic aortic valve stenosis I35.0 Cardiac valve disease etiology: nonrheumatic Dyspnea on exertion R06.09 Dyspnea type: dyspnea on exertion Time Spent (min) 14
== END 2023-07-19 13:49 | disposition home or self-care (01) ==
LOC: HO.HPS 13:27
PROVIDERS: PCP Internal Medicine; Visit Provider Hospitalist
DX: G47.33 Obstructive sleep apnea (adult) (pediatric) (principal); J45.40 Moderate persistent asthma, uncomplicated; I35.0 Nonrheumatic aortic (valve) stenosis
CPT/HCPCS: 99442

== ENCOUNTER → 2023-07-19 13:27 | Outpatient (BNVA) | payer OTHER, SELFPAY | PROVIDERS: PCP Internal Medicine; Visit Provider Hospitalist | DX: J44.9 Chronic obstructive pulmonary disease, unspecified (principal); E11.42 Type 2 diabetes mellitus with diabetic polyneuropathy; E11.65 Type 2 diabetes mellitus with hyperglycemia ==

== ENCOUNTER 2023-08-02 08:42 | Outpatient (REF) | payer OTHER, SELFPAY ==
--- NOTE | ~2023-08-02 | XR_ITS ---
EXAMINATION: XR CHEST CLINICAL INFORMATION: Dyspnea, coughing for couple days COMPARISON: 04/16/[address] TECHNIQUE: 2 views of the chest were obtained. FINDINGS: Interval ascending aortic stent graft. Heart, mediastinum, pulmonary vessels and lung pitmtan within normal limits. Aortic calcifications. Degenerative spurring. XR/XR chest 2V IMPRESSION: Aortic stent graft. No acute cardiopulmonary disease.
== END 2023-08-02 08:43 | disposition home or self-care (01) ==
LOC: HO.XRAY 08:42
PROVIDERS: PCP Internal Medicine; Visit Provider Hospitalist
DX: R06.00 Dyspnea, unspecified (principal)
CPT/HCPCS: 71046

== ENCOUNTER 2023-08-31 14:25 | Outpatient (AMB) | payer OTHER, SELFPAY ==
[2023-08-31 14:26] VITALS: BP 144/60; PULSE 78; RESP 14; O2SAT 96; BMI 41.3
--- NOTE | 2023-08-31 14:26 | A.OFFVIS_ITS ---
Intake Vital Signs 08/31/23 14:26 Height 4 ft 9 in Weight 190 lb 11.198 oz BMI 41.3 BP 144/60 H Blood Pressure Location Lt brachial Position Sitting Respiration 14 Pulse 78 Pulse Source Pulse Oximeter Pulse Oximetry (%) 96 Oxygen Delivery Method Room Air Intake Visit Reasons: Obstructive sleep apnea follow-up Allergies acetaminophen [From Percocet] Allergy (Intermediate, Verified 08/31/23 14:29) Itching ibuprofen [From Motrin] Allergy (Intermediate, Verified 08/31/23 14:29) High Blood Pressure, Rash oxycodone [From Percocet] Allergy (Intermediate, Verified 08/31/23 14:29) Itching HPI HPI Comments History of Present Illness Details The patient is a 78-year-old woman with a known history of asthma, severe aortic stenosis and morbid obesity who was admitted to the hospital the end of January with severe COVID-19 and acute respiratory failure. The patient had bilateral airspace disease the due to COVID. Course was complicated by renal failure requiring dialysis and anemia requiring blood transfusions. The patient recovered from a very serious case of COVID. She still complaining of shortness of breath specially with activity moderate in severity. She has significant aches and pains throughout her body. Moderate in severity. The patient also has significant fatigue and daytime drowsiness. She does have significant snoring noted by her daughter. Her Epps score is elevated 16/24. At this point the patient needs to undergo a sleep study. Will make arrangements for her to do so. In the meantime for her asthma she does have 1 inhaler. She does not know the name. She does not take it daily. The patient does need to be on maintenance inhaler this time. In the meantime the patient does have a severe aortic stenosis. She was supposed to have a surgical evalua tion. But, then she became sick and was not able to follow through. Patient is concerned open heart surgery. She is wondering if any other alternatives such as the endovascular approach be an option for her specially with her worsening medical conditions. 06/23/2021 the patient is here for a pulmonary follow-up visit. The patient has been having difficulties with her elevated blood pressures and also significant headaches. She is following closely with her primary care doctor. She did go to the ER where she had a CT scan of the brain. In addition to that she has been complaining of some shortness of breath. We did review her home sleep study. It demonstrates significant hypoxemia and also moderate to severe Obstructive sleep apnea. It is likely did this is accounting for some of the elevations in her blood pressure and headaches. Her Epps score continues to be elevated 09/26. At this point will request that she start CPAP therapy as soon as possible. Patient did have her sleep study some months ago and therefore I will try to facilitate the process. She continues with respiratory therapy. 11/13/2022 the patient is here for a pulm onary follow-up visit. Since we last spoke the patient did have to be admitted to the hospital with worsening shortness of breath and chest discomfort. She was admitted briefly to [place]. Ultimately transferred to [facility]. There she did have a cardiac catheterization. She also had a CT scan to assess her aortic valve. The patient is noted to have pulmonary edema in addition to bilateral pleural effusions. She was diuresed aggressively. The patient overall feels better. She is scheduled to undergo a trans continue as aortic valve replacement sometime at the end of the month. In the meantime she continues to have the oxygen available. She does use it with activity. I am hopeful that once she gets better from her surgery we will reassess her respiratory status and hopefully she is able to be off the oxygen altogether. She is also having issues with her inhalers. She is not sure how to use it. I sent her Trelegy although currently she has a Breo inhaler with her. We did go over how to use the Ellipta device. She is going to then bean picker the Trelegy at the pharmacy. 03/15/2023 the patient is here for a pulm onary follow-up visit. The patient is feeling a lot better. The patient has been having hard time caring her oxygen. At this point the patient is doing better off the oxygen. Although she needs to be further evaluated from a cardiac standpoint. Patient did have a chest x-ray back in October demonstrating bilateral pleural effusions likely from congestive heart failure and her CV aortic stenosis. Her last echocardiogram on February 2023 documented the severe aortic valve stenosis and also significant diastolic dysfunction. She needs to follow-up with cardiology. She does have off follow- up with [facility] in the coming week. There a copy of the [facility] ardiogram. She already had a catheterization. She needs to go back to [facility] to get situated with trans catheter aortic valve replacement. In the meantime the patient is doing much better she does not require the oxygen at rest. She does knee with activity issue just keep it for a little bit longer until she gets her valve fixed. 07/19/2023 the patient Has a telehealth visit today. The patient has been complaining of worsening cough. moderate severity. positive sick contacts. Denies any wheezing. She is concerned she could have pneumonia. She had surgery back several months ago. She is concerned about the use of prednisone in view of her recent surgery. Therefore will hold off on any steroid therapy at this time. The patient does have a respiratory therapy. After surgery her respiratory status has not better and she has not required her oxygen. she is not using the oxygen and she does not want to use it. She wants it to be picked up. I will request from the DME in order for them to do so. Specially if she is not using it. When she does come back to the office will do additional testing. 08/31/2023 the patient is here for a pul monary follow-up visit. The patient overall has been feeling better. She was evaluated over the phone back in July because about worsening exacerbation. She completed her medications and she is back to baseline. She is feeling better. She is not using the oxygen. Although wait and see a little bit more to make sure that she does not go back to using it. The patient has been on the inhalers with good effect. The of the a form although, she is having hard time with the powder inhalers is causing significant irritation of the mouth so therefore will stop the Trelegy and placed on Symbicort be more effective. Also to note the patient was admitted briefly to [facility] after developing hemorrhagic colitis and ultimately got better with antibiotics. 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 Aortic stenosis CKD (chronic kidney disease) stage 3, GFR 30-59 ml/min Dyslipidemia Diabetic polyneuropathy associated with type 2 diabetes mellitus Diabetic nephropathy associated with type 2 diabetes mellitus Chronic kidney disease Hypertension Asthma Thalamic pain syndrome GERD (gastroesophageal reflux disease) Morbid obesity Surgical History H/O aortic valve replacement History of breast lump/mass excision History of tubal ligation History of cholecystectomy Family History Sister History of renal pelvis cancer Father Suicide Mother Lung disease Diabetes mellitus Social History Household Members: Family Housing: House Do you presently have visiting nurse or other home services: Yes (claims 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 Patient Tobacco Use Status: Former Tobacco user Tobacco use type: Cigarette Years Smoked: 5 years e-Cigarette/Vaping Use: Never Used Second Hand Smoke Exposure: No service: No Current occupational status: unemployed and disabled Gender identity: Female Cognitive needs: Yes Hearing needs: No Vision needs: No Female Reproductive History Menstrual Age of Menarche: 10 Review of Systems Const Reports fatigue and Denies night sweats ENT Denies change in voice, Denies lip swelling, Denies mouth pain, Reports nasal congestion, Reports nasal discharge, Reports neck pain, Reports sore throat and Denies tongue swelling Card Denies chest pain and Reports dyspnea on exertion Resp Denies chest congestion, Reports cough and Reports dyspnea on exertion GI Denies abdominal pain Reports no additional complaints Musc Reports back pain, Reports myalgias, Reports arthralgias, Reports joint swelling, Reports limited range of motion and Reports neck pain Neuro Denies Neuro-related abnormal movements Psych Denies no additional complaints Endo Reports fatigue Luis Antonio/Lymph Denies easy bleeding and Denies lymphadenopathy Aller/Immun Denies lip swelling and Denies tongue swelling Physical Exam Vital Signs: Last Vital Signs Pulse 78 08/31/23 14:26 Resp 14 08/31/23 14:26 BP 144/60 H 08/31/23 14:26 Pulse Ox 96 08/31/23 14:26 Oxygen Delivery Method Room Air 08/31/23 14:26 BMI result Body Mass Index 41.3 Last Vital Signs Temp 98 F 04/17/23 12:00 Pulse 64 04/17/23 12:00 Resp 19 04/17/23 12:00 BP 134/67 04/17/23 12:00 Pulse Ox 93 04/17/23 12:00 O2 Del Method Oxymask 04/17/23 12:00 O2 Flow Rate 2.5 04/17/23 12:00 Oxygen Flow Rate 10 04/16/23 12:39 BMI result Body Mass Index 43.7 Const General: comfortable Orientation/consciousness: patient oriented x3 Neck Neck: Yes normal visual inspection, Yes full ROM and Yes no lymphadenopathy Chest Chest palpation & inspection: normal inspection of the chest Resp Effort & Inspection: able to speak in complete sentences Auscultation: diminished lung sounds Cardio Rate: regular rate Rhythm: regular rhythm Heart sounds: S1 normal heart sound present, S2 normal heart sound present and Murmur heart sound present GI Palpation (GI): Soft to palpation and nontender Auscultation: normal bowel sounds Skin General skin exam: rashes and/or lesions noted Neuro General: patient oriented x3 Assessment & Plan Assessment & Plan (1) JOSE (obstructive sleep apnea): Code(s): G47.33 - Obstructive sleep apnea (adult) (pediatric) (2) Asthma: Code(s): J45.909 - Unspecified asthma, uncomplicated Qualifiers: Asthma complication type: uncomplicated Asthma persistence: persistent Asthma severity: moderate Qualified Code(s): J45.40 - Moderate persistent asthma, uncomplicated (3) Aortic stenosis: Code(s): I35.0 - Nonrheumatic aortic (valve) stenosis Qualifiers: Cardiac valve disease etiology: nonrheumatic Qualified Code(s): I35.0 - Nonrheumatic aortic (valve) stenosis (4) Dyspnea: Code(s): R06.00 - Dyspnea, unspecified Qualifiers: Dyspnea type: dyspnea on exertion Qualified Code(s): R06.09 - Other forms of dyspnea Plan stop Trelegy daily start Symbicort oxygen with activity and sleep, will likely discontinue during the next visit if her testing is better Short-acting beta agonist as needed F/U 6 months Medications: New budesonide-formoterol 160-4.5 mcg/actuation (Symbicort) 2 puffs inhalation BID 30 days 10.2 grams 11RF J44.89 - Other specified chronic obstructive pulmonary disease Discontinued hquksudefqo-lponbbvxh-bxbojdck 100-62.5-25 mcg (Trelegy Ellipta) Discontinued Reason: Doctor's Order 1 inh inhalation DAILY 30 days 60 ea 11RF J44.9 - Chronic obstructive pulmonary disease, unspecified Coding Level of Care Code Est Pt Level 4 (34738) Diagnoses JOSE (obstructive sleep apnea) G47.33 Moderate persistent asthma without complication J45.40 Asthma complication type: uncomplicated Asthma persistence: persistent Asthma severity: moderate Nonrheumatic aortic valve stenosis I35.0 Cardiac valve disease etiology: nonrheumatic Dyspnea on exertion R06.09 Dyspnea type: dyspnea on exertion Time Spent (min) 17
== END 2023-08-31 14:48 | disposition home or self-care (01) ==
PROVIDERS: PCP Internal Medicine; Visit Provider Hospitalist
DX: G47.33 Obstructive sleep apnea (adult) (pediatric) (principal); J45.40 Moderate persistent asthma, uncomplicated; I35.0 Nonrheumatic aortic (valve) stenosis; R06.09 Other forms of dyspnea
CPT/HCPCS: 99214

== ENCOUNTER → 2023-08-31 14:25 | Outpatient (BNVA) | payer OTHER, SELFPAY | PROVIDERS: PCP Internal Medicine; Visit Provider Hospitalist | DX: J45.40 Moderate persistent asthma, uncomplicated (principal); I35.0 Nonrheumatic aortic (valve) stenosis; R06.09 Other forms of dyspnea; G47.33 Obstructive sleep apnea (adult) (pediatric) | CPT/HCPCS: 99212 ==

== ENCOUNTER 2023-09-22 14:24 | Outpatient (AMB) | payer OTHER, SELFPAY ==
--- NOTE | 2023-09-22 14:36 | MHC.OFFVIS ---
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 Accompanied by: Unknown Allergies acetaminophen [From Percocet] Allergy (Intermediate, Verified 09/25/23 22:28) Itching ibuprofen [From Motrin] Allergy (Intermediate, Verified 09/25/23 22:28) High Blood Pressure, Rash oxycodone [From Percocet] Allergy (Intermediate, Verified 09/25/23 22:28) Itching Medication List - Last Reconciled 09/25/23 by GENOVEVA Smith amlodipine 10 mg PO DAILY aspirin 81 mg PO BEDTIME atorvastatin 20 mg PO BEDTIME blood pressure monitor As directed blood sugar diagnostic (FreeStyle Lite Strips) 3times a day blood-glucose meter (FreeStyle [place] Lite kit) As directed budesonide-formoterol 160-4.5 mcg/actuation (Symbicort) 2 puffs inhalation BID 30 days calcium acetate(phosphat bind) 667 mg PO BID 90 days clopidogrel 75 mg PO DAILY 90 days clotrimazole-betamethasone 1-0.05 % 1 appl topical BID 7 days cyanocobalamin (vitamin B-12) 1,000 mcg PO DAILY disposable gloves As directed doxycycline hyclate 100 mg PO BID 10 days empagliflozin (Jardiance) 10 mg PO DAILY 90 days esomeprazole magnesium 40 mg PO DAILY@0630 ferrous sulfate 325 mg PO DAILY 90 days fluticasone propionate 50 mcg/actuation 1 spray intranasal DAILY PRN folic acid 1 mg PO DAILY FreeStyle Lancets (lancets) 3 times a day NS gabapentin 300 mg PO BEDTIME 90 days hydralazine 25 mg PO TID 90 days [incomtinemce liner pads As directed] insulin glargine U-300 conc (Toujeo SoloStar U-300 Insulin) 32 units (0.1067 mL) subcut DAILY ipratropium-albuterol 0.5 mg-3 mg(2.5 mg base)/3 mL 3 mL inhalation RQ4H WHILE AWAKE lancets (TRUEplus Lancets) As directed test 4 times a day linagliptin (Tradjenta) 5 mg PO DAILY wnqpua-cycyukcy-cpiejoj 24,000-76,000 -120,000 unit (Creon) 1 cap PO QID montelukast 10 mg PO BEDTIME Novolog FlexPen U-100 Insulin (insulin aspart U-100) 5 - 10 units (0.05 - 0.1 mL) subcut TID NS Oxygen Home Use As directed pen needle, diabetic (BD Sia 2nd Gen Pen Needle) 5 times a day polyethylene glycol 3350 (ClearLax) 17 grams PO DAILY PRN terconazole 0.8% 1 appful vaginal BEDTIME 3 days tobramycin-dexamethasone 0.3-0.1 % 1 drp ophthalmic (eye) QID torsemide 20 mg PO BID [wipes As directed] HPI HPI Comments History of Present Illness Details Louis is a pleasant 78-year-old Arabic-speaking female patient of Dr. Tompkins was accompanied by her daughter at today's office visit. She has a PMH of GERD, hypertension, CKD, type 2 diabetes mellitus, dyslipidemia, hyperlipidemia, CHF and arotic stenosis,COPD/JOSE. She presents to the office today for follow-up of her renal cyst and lower urinary tract symptoms. In discussion with the patient today she reports having had assessment for pelvic floor therapy here at [facility] and will be undergoing therapy within the next few weeks. She reports to be doing and feeling well. During last office visit recommendations were made for surveillance monitoring of renal cyst however patient reports not having had imaging performed. Discussed at length lifestyle modifications with management of diabetes for assistance in urinary symptoms as well as for a health and well-being. Discussed obtaining surveillance imaging as recommended and planned . When asked patient denies hematuria, dysuria, foul smelling urine, changes to urinary stream, flank pain, fever, and or chills. In office urinalysis results reviewed with the patient today. 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 Aortic stenosis CKD (chronic kidney disease) stage 3, GFR 30-59 ml/min Dyslipidemia Diabetic polyneuropathy associated with type 2 diabetes mellitus Diabetic nephropathy associated with type 2 diabetes mellitus Chronic kidney disease Hypertension Asthma Thalamic pain syndrome GERD (gastroesophageal reflux disease) Morbid obesity Surgical History H/O aortic valve replacement History of breast lump/mass excision History of tubal ligation History of cholecystectomy Family History Sister History of renal pelvis cancer Father Suicide Mother Lung disease Diabetes mellitus Social History Household Members: Family Housing: House Do you presently have visiting nurse or other home services: 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 Patient Tobacco Use Status: Former Tobacco user Tobacco use type: Cigarette Years Smoked: 5 years e-Cigarette/Vaping Use: Never Used Second Hand Smoke Exposure: No service: No Current occupational status: unemployed and disabled Gender identity: Female Cognitive needs: Yes Hearing needs: No Vision needs: No Female Reproductive History Menstrual Age of Menarche: 10 Review of Systems Const Reports as per HPI Eyes Reports no additional complaints ENT Reports no additional complaints Card Reports as per HPI Resp Reports as per HPI Reports as per HPI Musc Reports no additional complaints Neuro Reports no additional complaints Psych Reports no additional complaints Endo Reports as per HPI Luis Antonio/Lymph Reports no additional complaints Aller/Immun Reports no additional complaints Physical Exam Const General: cooperative, comfortable, no acute distress, well developed, alert and awake Nutritional Appearance: overweight Orientation/consciousness: patient oriented x3 HEENT Head: Yes normal to inspection, Yes normocephalic and Yes atraumatic Ears: hearing grossly normal bilaterally Eyes General: appearance normal, both eyes and all related structures Neck Neck: Yes normal visual inspection and Yes trachea midline Chest Chest palpation & inspection: normal inspection of the chest Resp Effort & Inspection: normal respiratory effort and able to speak in complete sentences Cardio Rate: regular rate GI Inspection: Yes normal to inspection General: Yes no CVA tenderness Back/Spine/Pelvis Back: no CVA tenderness Skin General skin exam: no rashes or lesions noted Neuro General: patient oriented x3 Extrem General: Yes normal to inspection Psych Appearance: grossly normal and well kempt Mental Status: mental status grossly normal Speech and movement: Normal speech and movement present and Clear speech present Affect: normal affect Attitude: cooperative Thought process: Normal thought process present Thought content: Normal thought content present Insight: Fair insight present (Psych) Judgement: Fair judgement present (Psych) Results AMB Urinalysis, Automated UA Leukoctes 0 Felton/uL Last Edit by [employer] on 09/22/23 15:28 UA Nitrite Negative Last Edit by [employer] on 09/22/23 15:28 UA Urobilinogen 0.2 mg/dL Last Edit by [facility] on 09/22/23 15:28 UA Protein 100 mg/dL Last Edit by [employer] on 09/22/23 15:28 UA pH 6.0 Last Edit by [employer] on 09/22/23 15:28 UA Blood 0 Leandro/uL Last Edit by [employer] on 09/22/23 15:28 UA Specific [place] 1.015 Last Edit by [employer] on 09/22/23 15:28 UA Ketone Negative Last Edit by [employer] on 09/22/23 15:28 UA Bilirubin 0 mg/dL Last Edit by [employer] on 09/22/23 15:28 UA Glucose 250 mg/dL Last Edit by [employer] on 09/22/23 15:28 Results Reviewed Results Reviewed: Laboratory Last Values Urine pH (Auto) 6.0 09/22/23 15:19 Specific [place] (Auto) 1.015 09/22/23 15:19 Urine Protein (Auto) 100 mg/dL 09/22/23 15:19 Glucose (UA)(Auto) 250 mg/dL 09/22/23 15:19 Urine Ketones (Auto) Negative 09/22/23 15:19 Urine Blood (Auto) 0 Leandro/uL 09/22/23 15:19 Urine Nitrite (Auto) Negative 09/22/23 15:19 Urine Bilirubin (Auto) 0 mg/dL 09/22/23 15:19 Urine Urobilinogen (Auto) 0.2 mg/dL 09/22/23 15:19 Leukocyte Esterase (Auto) 0 Felton/uL 09/22/23 15:19 Assessment & Plan Assessment & Plan (1) Stress incontinence: Code(s): N39.3 - Stress incontinence (female) (male) (2) Renal cyst, acquired, right: Code(s): N28.1 - Cyst of kidney, acquired Plan In office urinalysis results reviewed with the patient today Continue pelvic floor therapy as planned in discussed. Discussed, educated, and stressed the importance of following up with surveillance monitoring as discussed. Discussed at length importance of managing diabetes for improvement in urinary symptoms as well as overall health and well-being. Discussed increased body weight increases abdominal pressure which in turn increases bladder pressure;discussed weight loss to assist with urinary incontinence as well as overall health and well-being. Will reassess lower urinary tract symptoms once pelvic floor therapy is completed. Follow-up in 3 months with imaging to be completed prior; or sooner with any issues, concerns, and or questions Orders: Orders AMB Urinalysis Automated 09/22/23 Z13.9 - Encounter for screening, unspecified Medications: Discontinued doxycycline hyclate Discontinued Reason: Patient Completed Course 100 mg PO BID 10 days 20 caps 0RF Patient Instructions: The patient had an opportunity to ask questions regarding the treatment plan. All questions were answered. Physical exam, labs, and imaging were discussed and reviewed in detail. As well as risks, benefits, and discussion of treatment choices. No major barriers to understanding were identified. The patient expressed understanding and agreement with the above treatment plan. The patient was made aware they should contact our office by phone for worsening of their current condition, the appearance of new symptoms, or with any questions or concerns. Compliance is encouraged with any medications and follow up testing that is ordered. It is a privilege to be allowed the opportunity to participate in? your urological care.? Again, if you have any questions or concerns If you have any questions or concerns please do not hesitate to contact me. The office is [phone]. This note is constructed using voice recognition software. While every effort has been made to ensure accuracy legal nurse consultant errors may have been included. Yours sincerely, GENOVEVA Smith Coding Level of Care Code Est Pt Level 3 (00592) Diagnoses Stress incontinence N39.3 Renal cyst, acquired, right N28.1
== END 2023-09-22 15:39 | disposition home or self-care (01) ==
PROVIDERS: PCP Internal Medicine; Visit Provider Nurse Practitioner Family
DX: N39.3 Stress incontinence (female) (male) (principal); N28.1 Cyst of kidney, acquired
CPT/HCPCS: 99213

== ENCOUNTER → 2023-09-22 14:24 | Outpatient (BNVA) | payer OTHER, SELFPAY | PROVIDERS: PCP Internal Medicine; Visit Provider Nurse Practitioner Family | DX: N39.3 Stress incontinence (female) (male) (principal); N28.1 Cyst of kidney, acquired | CPT/HCPCS: 81003; 99212 ==

== ENCOUNTER 2023-09-23 11:00 | Outpatient (RCR) | payer OTHER, SELFPAY ==
--- NOTE | 2023-07-29 14:41 | MHC.PT.EP ---
[facility] [place] Office [place] Office [place] Office [address] [place] [address] [phone] F: [phone] F: [phone] F: [phone] F: [phone] Physical Therapy Plan of Care Date of Evaluation: 07/29/23 Date of Surgery: NA Diagnosis: Stress incontinence Assessment: Sea is a 78 year female who is referred to PT for stress incontinence . She reports of having symptoms of urinary incontinence with coughing, sneezing, laughing, sit to stand and frequency noted only with change in position. In addition she also reports of having urgency and UUI. She reports of having these symptoms for about 1-2 years. She also reports of having constipation and pain with BM when her stools are very hard. She lives with her partner and has a FIELD RECORDER who assists with all ADLS. She would benefit from skilled PT to address the aforementioned impairments and improve tolerance to functional activities. Frequency and Duration: The patient will be seen 1/week for 8 weeks. Short Term Goals: 1. Transvaginal exam, lumbar and B LE will be assessed in 2 weeks. 2. Pt will demonstrate good posture and mechanics for BM in 3 weeks. 3. Pt will have 50% decrease in the amount of urinary incontinence in 4 weeks. 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 Pt will reports of having no loss of urine with sit to stand, coughing and sneezing in 6 weeks. 2. Pt will report of having well formed stool and no pain with BM in 7 weeks. 2. Pt will be independent with all HEP of symptom management and maintenance following d/c in 8 weeks. Treatment Plan: Modalities to reduce pain, spasms and effusion. Manual therapy to restore motion and function. Therapeutic exercise to improve strength and flexibility. Neuromuscular re-education for posture and balance. Therapeutic activities to return to functional activities of daily living. Electronically signed by: Please sign and return to therapist. Thank you for your referral.
--- NOTE | 2023-09-23 12:02 | MHC.PT.RE ---
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 Reports waking up 5x/night to urinate (sometimes she will leak a little and make it to the toilet, other times she will have full leakage) and during the day she will need to urinate 1-2x/hour with similar leakage. She feels the leakage occur but does not do anything to stop it. She wears a pad for protection and needs to change the pad 6-7x/day. Also reports low back pain. Reports having a bowel movement every 3 days or so with associated straining sometimes. Denies FI. Pain Score: 0 Pain Location: NA Objective Measures: Lumbar AROM: flexion 50%, extension netural pain with end range lumbar movements Hip AROM: limited and painful hip IR ~ 15* B, limited hip ER ~ 20* Strength: core poor and holds breath and bears down, hip flexion B 3-/5 (assists with hands to lift), hip ER B 3+/5 Hip IR B 3+/5 HS R 4-/5, L 4/5 QUads B 4/5 Pelvic floor assessmnet: externally noted labia minora atrophy, anterior and posterior descent of tissues to introital opening in hooklying, good voluntary contractoin, fair relaxation, and no kegel with cough. Internally: no TTP, strength 2/4/6//4, descent of tissues anterior and posterior just beyond introitus Assessment: Pt has not been to PT for 58 days. Satnam reports having ROSSI with standing up, coughing, sneezing, sitting. Also reports UUI with standing up and frequency. She also reports having constipation with bowel movements every 3 days with straining. She lives with her partner and has a MACHINE CLOTH MEASURER who assists with all ADLS. SHe provided verbal and written consent for pelvic floor assessment. See objective measures. Educated pt and her MACHINE CLOTH MEASURER on constipation management, urinary urge strategies, and HEP of long and quick holds with hips elevated with handouts as well. She will benefit from PT 1x/week every other week for 8 weeks (4 visits) with focus of core and pelvic floor strengthening, coordination, and education Short Term Goals: 1. Transvaginal exam, lumbar and B LE will be assessed in 2 weeks. - MET 2. Pt will demonstrate good posture and mechanics for BM in 3 weeks. 3. Pt will have 50% decrease in the amount of urinary incontinence in 4 weeks. Jail Goals: 1. Pt will reports of having no loss of urine with sit to stand, coughing and sneezing in 6 weeks. 2. Pt will report of having well formed stool and no pain with BM in 7 weeks. 2. Pt will be independent with all HEP of symptom management and maintenance following d/c in 8 weeks. Frequency and Duration: The patient will be seen 1x/every other week for 8 weeks (4 visits) Treatment Plan: Therapeutic Exercise Dynamic Therapeutic Activities Neuromuscular Re-ed Manual Therapies Home Exercise Program Patient Education Pelvic Floor Therapy Reviewed/ Agreed with Student Documentation: Therapist: Electronically signed by: Camila Anne PT Please sign and return to therapist. Thank you for your referral.
--- NOTE | 2023-10-14 10:29 | MHC.PT.DC ---
[facility] [place] Office [place] Office [place] Office [address] [place] Salazar [address] [phone] F: [phone] F: [phone] F: [phone] F: [phone] Physical Therapy Discharge Report Diagnosis: Stress incontinence Date of Surgery: NA Date of Evaluation: 07/29/23 Date of Discharge: 10/14/23 Treatments to Date: 2 Cancellations to Date: 0 No Shows to Date: 2 Discharge Status: Visit Non-compliance Discharge Summary: Pt is d/c for noncompliance with scheduling policy. She came for initial evaluation and then did not attend for 58 days. She then came for a re-evaluation and tehn has had 2 consecutive no shows. D/c chart at this time Electronically signed by: Camila Anne PT Please sign and return to therapist. Thank you for your referral.
== END 2023-10-14 10:29 | disposition home or self-care (01) ==
LOC: HO.PT 11:00
PROVIDERS: PCP Internal Medicine; Visit Provider Nurse Practitioner Family
DX: N39.3 Stress incontinence (female) (male) (principal)
CPT/HCPCS: 97112; 97161; 97164

== ENCOUNTER 2023-10-06 09:38 | Outpatient (AMB) | payer OTHER, SELFPAY ==
--- NOTE | 2023-10-06 09:40 | MHC.OFFVIS ---
Intake Vital Signs 10/06/23 09:41 Height 4 ft 9 in Weight 191 lb 2.252 oz BMI 41.4 BP 152/56 H Blood Pressure Location Lt brachial Position Sitting Pulse 67 Pulse Source Pulse Oximeter Intake Visit Reasons: f/u Type 2 DM/CONFIRMED Intake Note: Patient present today to follow up on Type 2 Diabetes Mellitus. Last Diabetic Eye exam: 2021 Last Podiatry Visit: 06/2023 Random Glucose: 122 mg/dl HgA1C: 7.6% Typewriter Repairer Required: Yes Typewriter Repairer Language: Power Machine Operator Name: Ryann medical staff Information Interpreted: non-clinical & clinical Accompanied by: Daughter Allergies acetaminophen [From Percocet] Allergy (Intermediate, Verified 10/06/23 09:55) Itching ibuprofen [From Motrin] Allergy (Intermediate, Verified 10/06/23 09:55) High Blood Pressure, Rash oxycodone [From Percocet] Allergy (Intermediate, Verified 10/06/23 09:55) Itching Medication List - Last Reconciled 10/06/23 by Farhad Elizabeth MD amlodipine 10 mg PO DAILY aspirin 81 mg PO BEDTIME atorvastatin 20 mg PO BEDTIME blood pressure monitor As directed blood sugar diagnostic (FreeStyle Lite Strips) 3times a day blood-glucose meter (FreeStyle [place] Lite kit) As directed budesonide-formoterol 160-4.5 mcg/actuation (Symbicort) 2 puffs inhalation BID 30 days calcium acetate(phosphat bind) 667 mg PO BID 90 days clopidogrel 75 mg PO DAILY 90 days clotrimazole-betamethasone 1-0.05 % 1 appl topical BID 7 days cyanocobalamin (vitamin B-12) 1,000 mcg PO DAILY disposable gloves As directed empagliflozin (Jardiance) 10 mg PO DAILY 90 days esomeprazole magnesium 40 mg PO DAILY@0630 ferrous sulfate 325 mg PO DAILY 90 days fluticasone propionate 50 mcg/actuation 1 spray intranasal DAILY PRN folic acid 1 mg PO DAILY FreeStyle Lancets (lancets) 3 times a day NS gabapentin 300 mg PO BEDTIME 90 days hydralazine 25 mg PO TID 90 days [incomtinemce liner pads As directed] insulin glargine U-300 conc (Toujeo SoloStar U-300 Insulin) 32 units (0.1067 mL) subcut DAILY ipratropium-albuterol 0.5 mg-3 mg(2.5 mg base)/3 mL 3 mL inhalation RQ4H WHILE AWAKE lancets (TRUEplus Lancets) As directed test 4 times a day linagliptin (Tradjenta) 5 mg PO DAILY fkaxdb-[id number]-mqcarwz 24,000-76,000 -120,000 unit (Creon) 1 cap PO QID montelukast 10 mg PO BEDTIME Novolog FlexPen U-100 Insulin (insulin aspart U-100) 5 - 10 units (0.05 - 0.1 mL) subcut TID NS Oxygen Home Use As directed pen needle, diabetic (BD Sia 2nd Gen Pen Needle) 5 times a day polyethylene glycol 3350 (ClearLax) 17 grams PO DAILY PRN terconazole 0.8% 1 appful vaginal BEDTIME 3 days tobramycin-dexamethasone 0.3-0.1 % 1 drp ophthalmic (eye) QID torsemide 20 mg PO BID [wipes As directed] HPI HPI Comments History of Present Illness Details 78 YO F with PMHx T2DM, CKD Stage 3 who is seen in F/U for T2DM. Initially diagnosed with T2DM in 1999. Was initially started on treatment with Metformin. She reports metformin was stopped due to an issue with her kidney. She also failed Trulicity due to GI distress. Current regimen Tradjenta 5 mg PO daily, Toujeo 34 units qHS and Lispro 4 units AC plus a sliding scale. Sliding scale as follows: 200-250 mg per dL to add 2 units 251-300 mg per dL to add 3 units 301-350 mg/dL to add 4 units 351-400 mg per dL to add 5 units Checks sugars 1 times per day. Average sugar: 143 Range:. 94% range with 6% hyperglycemia and 0% hypoglycemia. Reports low sugars occasionally 3-4 X wk . Lows typically occur only if she hasn't eaten for the day. Treats lows with juice. Checks sugar after to ensure it is rising. Treats according to rule of 15's. Has her eyes checked yearly, last eye exam needs to make appt . Denies retinopathy. Has neuropathy. On gabapentin. Sees podiatry. Has nephropathy, not on ARNOLDO/ARB. . Is followed by nephrology Has HLD, on Atorvastatin 40 mg PO daily. Has CAD. Diet: Does not count carbs. Weight: Stable Had diabetes education. 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 Aortic stenosis CKD (chronic kidney disease) stage 3, GFR 30-59 ml/min Dyslipidemia Diabetic polyneuropathy associated with type 2 diabetes mellitus Diabetic nephropathy associated with type 2 diabetes mellitus Chronic kidney disease Hypertension Asthma Thalamic pain syndrome GERD (gastroesophageal reflux disease) Morbid obesity Surgical History H/O aortic valve replacement History of breast lump/mass excision History of tubal ligation History of cholecystectomy Family History Sister History of renal pelvis cancer Father Suicide Mother Lung disease Diabetes mellitus Social History Household Members: Family Housing: House Do you presently have visiting 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 Patient Tobacco Use Status: Former Tobacco user Tobacco use type: Cigarette Years Smoked: 5 years e-Cigarette/Vaping Use: Never Used Second Hand Smoke Exposure: No service: No Current occupational status: unemployed and disabled Gender identity: Female Cognitive needs: Yes Hearing needs: No Vision needs: No Female Reproductive History Menstrual Age of Menarche: 10 Physical Exam Vital Signs: Last Vital Signs Pulse 67 10/06/23 09:41 BP 152/56 H 10/06/23 09:41 BMI result Body Mass Index 41.4 Absence of Cushingoid features. Absence of acromegalic features. Neck exam reveals nl size thyroid about 15 gms. No thyroid nodules palpable. No carotid bruits present. Lungs CTA. Heart S1 S2, Reg R/R. There is a systolic murmur present at the right sternal border R/ G. Skin exam reveals absence of vitiligo or acanthosis nigricans. Abdominal exam reveals Soft NT/ND with NA BS. No organomegaly present. Neck Other: . Extrem Other: Visual exam of foot performed. No ulcerations or open lesions. No onchomycosis, no callouses.Pulses 2 + distally Sensation intact is decreased with monofilament exam. Vibratory sensation decreased with 128 Hz tuning fork Results Reviewed Results Reviewed: Laboratory Last Values Glucose (Clinic) 122 mg/dL (60-115) H 10/06/23 09:52 Assessment & Plan Assessment & Plan (1) T2DM (type 2 diabetes mellitus): Code(s): E11.9 - Type 2 diabetes mellitus without complications Qualifiers: Diabetes mellitus residential insulin use: with residential use Diabetes mellitus complication status: with kidney complications Diabetes mellitus complication detail: with chronic kidney disease Chronic kidney disease stage: stage 2 (mild) Qualified Code(s): E11.22 - Type 2 diabetes mellitus with diabetic chronic kidney disease; N18.2 - Chronic kidney disease, stage 2 (mild); Z79.4 - custodial (current) use of insulin Plan: As below (2) Uncontrolled type 2 diabetes mellitus with chronic kidney disease, with long-term current use of insulin: Code(s): E11.22 - Type 2 diabetes mellitus with diabetic chronic kidney disease; E11.65 - Type 2 diabetes mellitus with hyperglycemia; Z79.4 - bean sorter (current) use of insulin Plan: This is a 76-year-old female with a history of type 2 diabetes with adequate glycemic control being treated with Tradjenta and basal-bolus insulin with known microvascular complications and macrovascular complications namely CKD, neuropathy and CAD The plan is is continue the current regimen . Patient declined use of CGMS. At this point, patient's glycemic control is optimized considering her age and comorbidities. She returned to the care of her primary care provider and back to endocrinology should her HbA1c deteriorate. Her primary care provider can refer her to a different director of safety and security and Podiatry Coding Level of Care Code Est Pt Level 4 (12208) Diagnoses Type 2 diabetes mellitus with stage 2 chronic kidney disease, with long-term current use of insulin E11.22; N18.2; Z79.4 Diabetes mellitus residential insulin use: with concaving machine operator use Diabetes mellitus complication status: with kidney complications Diabetes mellitus complication detail: with chronic kidney disease Chronic kidney disease stage: stage 2 (mild) Uncontrolled type 2 diabetes mellitus with chronic kidney disease, with long-term current use of insulin E11.22; E11.65; Z79.4
[2023-10-06 09:41] VITALS: BP 152/56; PULSE 67; BMI 41.4
== END 2023-10-06 10:12 | disposition home or self-care (01) ==
PROVIDERS: PCP Internal Medicine; Visit Provider Internal Medicine Endocrinology, Diabetes & Metabolism
DX: E11.22 Type 2 diabetes mellitus with diabetic chronic kidney disease (principal); N18.2 Chronic kidney disease, stage 2 (mild); Z79.4 Long term (current) use of insulin; E11.65 Type 2 diabetes mellitus with hyperglycemia; E11.21 Type 2 diabetes mellitus with diabetic nephropathy
CPT/HCPCS: 99214

== ENCOUNTER → 2023-10-06 09:38 | Outpatient (BNVA) | payer OTHER, SELFPAY | PROVIDERS: PCP Internal Medicine; Visit Provider Internal Medicine Endocrinology, Diabetes & Metabolism | DX: E11.22 Type 2 diabetes mellitus with diabetic chronic kidney disease (principal); N18.2 Chronic kidney disease, stage 2 (mild); E11.65 Type 2 diabetes mellitus with hyperglycemia; Z79.4 Long term (current) use of insulin | CPT/HCPCS: 82947; 83036; 99212 ==

== ENCOUNTER 2023-10-13 08:23 | Outpatient (REF) | payer OTHER, SELFPAY ==
[2023-10-13 08:44] LABS: MANUAL DIFF FLAG NO
[2023-10-13 09:57] LABS: Basophils Absolute Auto 0.1 X10*3/uL (0.0-0.2); Basophils Percent Auto 0.8 % (0-2); Eosinophils Absolute Auto 0.4 X10*3/uL (0.0-0.4); Eosinophils Percent Auto 3.4 % (0-4); Hematocrit 39.6 % (37.0-47.0); Hemoglobin 12.4 g/dl (12.0-16.0); Imm Gran Abs Auto 0.04 X10*3/uL (0.00-0.03); Imm Gran Pct Auto 0.4 % (0.0-0.4); Lymphocytes Percent Auto 18.2 % (20-40); Mean Corpuscular HGB Conc 31.3 g/dl (31.0-35.0); Mean Corpuscular Hemoglobin 23.3 pg (27.0-33.0); Mean Corpuscular Volume 74.4 fL (80.0-98.0); Monocytes Absolute Auto 1.2 X10*3/uL (0.1-1.2); Monocytes Percent Auto 11.5 % (2-11); Neutrophils Absolute Auto 7.1 x10*3/uL (2.0-8.3); Neutrophils Percent Auto 65.7 % (45-73); Platelet Count 377 X10*3/uL (160-400); Red Blood Count 5.32 X10*6/uL (4.20-5.50); Red Cell Distribution Width 18.1 % (11.0-16.0); White Blood Count 10.7 X10*3/uL (4.8-10.8)
[2023-10-13 11:07] LABS: Creatinine Urine 46.54 mg/dL
[2023-10-13 11:11] LABS: Alanine Aminotransferase 12 U/L (0-31); Albumin Level 3.3 g/dL (3.5-5.0); Alkaline Phosphatase 139 U/L (39-117); Anion Gap 17 (12-20); Aspartate Amino Transferase 26 U/L (5-31); Bilirubin Total 0.5 mg/dL (0.0-1.0); Blood Urea Nitrogen 26 mg/dL (9-16); Calcium 9.4 mg/dL (8.4-10.2); Carbon Dioxide 24 mmol/L (22-29); Chloride 106 mmol/L (96-108); Cholesterol 181 mg/dL (<200); Estimated Glomerular Filt Rate 34; Glucose Fasting 127 mg/dL (60-99); HDL Cholesterol 47 mg/dL (>40); Iron 47 mcg/dL (30-160); LDL Cholesterol Calculated 106 mg/dL (<100); Percent Iron Saturation 21 % (15-50); Potassium 4.4 mmol/L (3.3-5.1); Sodium 143 mmol/L (135-145); Total Iron Binding Capacity 220 mcg/dL (228-428); Total Protein 7.7 g/dL (6.5-8.0); Triglycerides 141 mg/dL (<150); Unsaturated Iron Binding 173 ug/dL; Vitamin D 25-OH Total < 3.5 ng/mL (>30)
== END 2023-10-13 08:24 | disposition home or self-care (01) ==
LOC: HO.LAB 08:23
PROVIDERS: PCP Internal Medicine; Visit Provider Internal Medicine
DX: E66.01 Morbid (severe) obesity due to excess calories (principal); Z68.41 Body mass index [BMI] 40.0-44.9, adult; E78.5 Hyperlipidemia, unspecified; E55.9 Vitamin D deficiency, unspecified; E11.9 Type 2 diabetes mellitus without complications; D64.9 Anemia, unspecified
CPT/HCPCS: 36415; 80053; 80061; 82043; 82306; 82570; 83540; 85025

== ENCOUNTER 2023-10-20 10:27 | Outpatient (AMB) | payer OTHER, SELFPAY ==
--- NOTE | 2023-10-20 10:29 | A.OFFPC_ITS ---
Vital Signs 10/20/23 10:31 10/20/23 11:45 Height 4 ft 9 in Weight 186 lb BMI 40.2 BP 142/60 H 140/60 H Blood Pressure Location Lt brachial Lt brachial Position Sitting Sitting Intake Visit Reasons: dm Intake Note: Patient here for a follow up DM Mannequin Refinisher Required: No Accompanied by: Daughter Allergies acetaminophen [From Percocet] Allergy (Intermediate, Verified 10/20/23 10:47) Itching ibuprofen [From Motrin] Allergy (Intermediate, Verified 10/20/23 10:47) High Blood Pressure, Rash oxycodone [From Percocet] Allergy (Intermediate, Verified 10/20/23 10:47) Itching Medication List - Last Reconciled 10/20/23 by Shelby Golden MD amlodipine 10 mg PO DAILY aspirin 81 mg PO BEDTIME atorvastatin 20 mg PO BEDTIME blood pressure monitor As directed blood sugar diagnostic (FreeStyle Lite Strips) 3times a day blood-glucose meter (FreeStyle [place] Lite kit) As directed budesonide-formoterol 160-4.5 mcg/actuation (Symbicort) 2 puffs inhalation BID 30 days calcium acetate(phosphat bind) 667 mg PO BID 90 days clotrimazole-betamethasone 1-0.05 % 1 appl topical BID 7 days disposable gloves As directed empagliflozin (Jardiance) 10 mg PO DAILY 90 days ferrous sulfate 325 mg PO DAILY 90 days fluticasone propionate 50 mcg/actuation 1 spray intranasal DAILY PRN folic acid 1 mg PO DAILY FreeStyle Lancets (lancets) 3 times a day NS gabapentin 300 mg PO BEDTIME 90 days hydralazine 25 mg PO TID 90 days [incomtinemce liner pads As directed] insulin glargine U-300 conc (Toujeo SoloStar U-300 Insulin) 32 units (0.1067 mL) subcut DAILY ipratropium-albuterol 0.5 mg-3 mg(2.5 mg base)/3 mL 3 mL inhalation RQ4H WHILE AWAKE lancets (TRUEplus Lancets) As directed test 4 times a day linagliptin (Tradjenta) 5 mg PO DAILY montelukast 10 mg PO BEDTIME Novolog FlexPen U-100 Insulin (insulin aspart U-100) 5 - 10 units (0.05 - 0.1 mL) subcut TID NS Oxygen Home Use As directed pen needle, diabetic (BD Sia 2nd Gen Pen Needle) 5 times a day terconazole 0.8% 1 appful vaginal BEDTIME 3 days tobramycin-dexamethasone 0.3-0.1 % 1 drp ophthalmic (eye) QID torsemide 20 mg PO BID [wipes As directed] Tobacco use date assessed: 10/20/23 Fall risk assessment: No Falls in past year Last assessed Fall Risk: 10/20/23 Dental Screening Dental Screen Date: 10/20/23 Did you have a dental visit in the last 12 months?: No Did you have a dental problem in the last 6 months where you did not have access to dental care?: No Was dental information given to patient?: Patient has dentist HPI HPI Comments History of Present Illness Details This is a 78-year-old female with hypertension, diabetes mellitus type 2 on long-term current use of insulin, hyperlipidemia, chronic kidney disease stage 3, COPD and congestive heart failure that comes today accompanied by daughter for follow-up on her conditions. Blood pressure borderline normal to elevated and I will add losartan. A1c elevated but has improved and she is com pliant with her insulin. LDL not on goal and I will increase statins. Her GFR has had no significant change. Aware to avoid NSAIDs. COPD stable with long- acting inhaler. Use rescue inhaler as needed. COPD follow by pulmonology. Congestive heart failure follow by Cardiology and has not gain 5 lb in a week. Echocardiogram done February 2023. She is morbidly obese with a BMI of 40.2 and was advised to diet and exercise to reach BMI goal less than 30. Patient declines weight loss surgery. 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 Aortic stenosis CKD (chronic kidney disease) stage 3, GFR 30-59 ml/min Dyslipidemia Diabetic polyneuropathy associated with type 2 diabetes mellitus Diabetic nephropathy associated with type 2 diabetes mellitus Chronic kidney disease Hypertension Asthma Thalamic pain syndrome GERD (gastroesophageal reflux disease) Morbid obesity Surgical History H/O aortic valve replacement History of breast lump/mass excision History of tubal ligation History of cholecystectomy Family History Sister History of renal pelvis cancer Father Suicide Mother Lung disease Diabetes mellitus Social History Household Members: Family Housing: House Do you presently have 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 Patient Tobacco Use Status: Former Tobacco user Tobacco use type: Cigarette Years Smoked: 5 years e-Cigarette/Vaping Use: Never Used Second Hand Smoke Exposure: No service: No Current occupational status: unemployed and disabled Gender identity: Female Cognitive needs: Yes Hearing needs: No Vision needs: No Female Reproductive History Menstrual Age of Menarche: 10 Questionnaire PHQ-9 Over the last 2 weeks, how often have you been bothered by any of the following problems? 1. Little interest or pleasure in doing things: not at all 2. Feeling down, depressed, or hopeless: not at all 3. Trouble falling or staying asleep, or sleeping too much: not at all 4. Feeling tired or having little energy: not at all 5. Poor appetite or overeating: not at all 6. Feeling bad about yourself - or that you are a failure or have let yourself or your family down: not at all 7. Trouble concentrating on things, such as reading the newspaper or watching television: not at all 8. Moving or speaking so slowly that other people could have noticed. Or the opposite - being so fidgety or restless that you have been moving around a lot more than usual: not at all 9. Thoughts that you would be better off or of hurting yourself in some way: not at all Total score: 0 Depression Screening Interpretation: Negative Depression Screening Done: Yes [id number] - PHQ-9 Billing: Yes Source: Developed by Drs. Farhad Murdock, Caron Elkins, El Esqueda and colleagues, with an educational susanne from [employer]. Thrive Questionnaire Date Thrive assessed: 10/20/23 I am a: Patient What is your living situation today?: I have a steady place to live Within the past 12 months, did the food you bought not last and you didn't have the money to get more?: Never true Within the past 12 months, did you worry whether your food would run out before you got money to buy more?: Never true Do you have trouble paying for medicines?: No Do you have trouble getting transportation to medical appointments?: No Do you have trouble paying your heating and electricity bill?: No Do you have trouble taking care of your child, family member or friend?: No Do you have trouble with day-to-day activities such as bathing, preparing meals, shopping, managing finances, etc.?: Yes Are you currently unemployed and looking for a job?: No Are you interested in more education?: No Please select the resources that you would like help with: None AUDIT C Alcohol Use Questionnaire (AUDIT-C) 1. How often do you have a drink containing alcohol?: Never Total Score: 0 JES-7 AMB Questionnaire JES-7 Date JES - 7 assessed: 10/20/23 Feeling nervous, anxious, or on edge: 0 = Not at all Not being able to stop or control worryin = Not at all Worrying too much about different things: 0 = Not at all Trouble relaxin = Not at all Being so restless that it is hard to sit still: 0 = Not at all Becoming easily annoyed or irritable: 0 = Not at all Feeling afraid as if something awful might happen: 0 = Not at all Total JES-7 score (0-4 normal; 5-9 mild; 10-14 moderate; 15-21 severe): 0 Source: Developed by Drs. Farhad Murdock, Caron Elkins, El Esqueda and colleagues, with an educational susanne from [employer]. JES-7 Assessment Billing JES-7 Assessment Tool: JES-7 Assessment 35208 Review of Systems Const All systems reviewed & are unremarkable except as noted in HPI and below Eyes Reports no additional complaints, Denies change in vision and Denies other visual disturbances Card Denies chest pain at rest, Denies chest pain with activity, Denies edema, Denies irregular heart rhythm, Denies claudication, Denies dyspnea, Denies dyspnea on exertion, Denies orthopnea, Denies paroxysmal nocturnal dyspnea and Denies slow heart rate Resp Denies cough, Denies dyspnea and Denies dyspnea on exertion GI Denies abdominal pain, Denies change in bowel habits, Denies excessive flatus, Denies nausea and Denies vomiting Denies urinary incontinence, Denies urinary hesitancy and Denies urinary urgency Musc Denies abnormal gait, Denies atrophy, Denies deformity and Denies limited range of motion Skin/Breast Denies bleeding lesions, Denies changing lesions and Denies rash Neuro Denies abnormal gait, Denies behavioral changes and Denies lack of coordination Psych Denies behavioral changes Physical exam (Primary Care) Vital Signs: Last Vital Signs BP 142/60 H 10/20/23 10:31 BMI result Body Mass Index 40.2 Tobacco/Smoking Status: Tobacco use Status Tobacco use date assessed 10/20/23 10/20/23 10:42 Patient Tobacco Use Status Former Tobacco user 10/20/23 10:42 Tobacco use type Cigarette 10/20/23 10:42 e-Cigarette/Vaping Use Never Used 10/20/23 10:42 PHQ-9: PHQ-9 Score PHQ-9: Total score 0 10/20/23 11:00 Depression Screening Interpretation: Negative Thrive Assessment: Date of Thrive Assessment Date Thrive assessed 10/20/23 10/20/23 10:42 Eyes General: appearance normal, both eyes and all related structures Eyelids: Yes eyelids normal Conjunctivae: conjunctivae normal Neck Neck: Yes normal visual inspection and Yes supple Resp Effort & Inspection: normal respiratory effort Auscultation: clear to auscultation bilaterally Cardio Jugular venous distension: no JVD Rate: regular rate Rhythm: regular rhythm Heart sounds: S1 normal heart sound present and S2 normal heart sound present Extrem General: Yes full ROM Office Procedures Flu Questionnaire Does the patient have a severe egg allergy?: No Immunizations flu vacc [id number] 6mos up(PF) 60 mcg(15 mcgx4)/0.5 mL IM syringe Performing Provider: Shelby Golden MD [place] [facility] [facility] [place] [facility] Documented (not given) by: SEFERINO Simon on 10/20/23 11:00 Reason Not Given: Not Given Assessment and Plan Assessment & Plan (1) T2DM (type 2 diabetes mellitus): Code(s): E11.9 - Type 2 diabetes mellitus without complications Qualifiers: Diabetes mellitus fdc insulin use: with fdc use Diabetes mellitus complication status: with kidney complications Diabetes mellitus complication detail: with chronic kidney disease Chronic kidney disease stage: stage 2 (mild) Qualified Code(s): E11.22 - Type 2 diabetes mellitus with diabetic chronic kidney disease; N18.2 - Chronic kidney disease, stage 2 (mild); Z79.4 - intermediate (current) use of insulin Plan: Continue Jardiance and insulin. A1c goal is equal or less than 7%. (2) Morbid obesity with BMI of 40.0-44.9, adult: Code(s): E66.01 - Morbid (severe) obesity due to excess calories; Z68.41 - Body mass index [BMI] 40.0-44.9, adult Plan: Start diet and exercise. BMI goal is less than 30. (3) Congestive heart failure: Code(s): I50.9 - Heart failure, unspecified Plan: Use diuretics as needed. Follow-up with Cardiology. The goal is to not gain 5 lb in a week. (4) COPD (chronic obstructive pulmonary disease): Code(s): J44.9 - Chronic obstructive pulmonary disease, unspecified Plan: Continue Symbicort. Use rescue inhaler as needed. Follow-up with pulmonology. (5) Mild major depression: Code(s): F32.0 - Major depressive disorder, single episode, mild Plan: Depression is in remission. (6) CKD (chronic kidney disease) stage 3, GFR 30-59 ml/min: Comment: ARLEY due to compromise in renal perfusion due to CRS Getting diuresis; Serum creatinine better; Has CKD at baseline No ACEI/ARB/NSAID's. Concur with rest of current management Code(s): N18.30 - Chronic kidney disease, stage 3 unspecified Qualifiers: Chronic kidney disease stage 3 subtype: stage 3b (GFR 30-44) Qualified Code(s): N18.32 - Chronic kidney disease, stage 3b Plan: Avoid NSAIDs. (7) Hyperlipidemia LDL goal <70: Code(s): E78.5 - Hyperlipidemia, unspecified Plan: Increase atorvastatin to 40 mg once a day. LDL goal is less than 70. (8) Essential hypertension: Code(s): I10 - Essential (primary) hypertension Plan: Continue amlodipine and hydralazine. Start losartan. Blood pressure goal is equal or less than 130/80. Orders: Orders Lipid Panel 4 Months E78.5 - Hyperlipidemia, unspecified Microalbumin, Random (w Creat) 4 Months E11.9 - Type 2 diabetes mellitus without complications Vitamin D 25-OH Total 4 Months E55.9 - Vitamin D deficiency, unspecified Complete Blood Count Auto Diff 4 Months D64.9 - Anemia, unspecified Influenza [id number] Immunization Today Z23 - Encounter for immunization IRON PROFILE 4 Months D64.9 - Anemia, unspecified Comprehensive Dorena. Panel Fast 4 Months I10 - Essential (primary) hypertension NT-proBNP 4 Months I50.9 - Heart failure, unspecified Referrals Ophthalmology Referral E11.9 - Type 2 diabetes mellitus without complications Medications: New losartan 25 mg PO DAILY 90 days 90 tabs 0RF I10 - Essential (primary) hypertension ergocalciferol (vitamin D2) 1,250 mcg PO QWEEK 90 days 13 caps 1RF atorvastatin 40 mg PO BEDTIME 90 days 90 tabs 1RF Changed From ferrous sulfate 325 mg PO DAILY 90 days 90 tabs 1RF D50.9 - Iron deficienc y anemia, unspecified To ferrous sulfate 325 mg PO .once a week 90 days 15 tabs 1RF D50.9 - Iron deficiency anemia, unspecified Refilled clotrimazole-betamethasone 1-0.05 % 1 appl topical BID 7 days 45 grams 1RF fungal rash Discontinued atorvastatin Discontinued Reason: Patient Completed Course 20 mg PO BEDTIME 90 tabs 1RF E78.5 - Hyperlipidemia, unspecified Coding Level of Care Code Est Pt Level 4 (40274) Diagnoses Type 2 diabetes mellitus with stage 2 chronic kidney disease, with long-term current use of insulin E11.22; N18.2; Z79.4 Diabetes mellitus [employer] insulin use: with [employer] use Diabetes mellitus complication status: with kidney complications Diabetes mellitus complication detail: with chronic kidney disease Chronic kidney disease stage: stage 2 (mild) Morbid obesity with BMI of 40.0-44.9, adult E66.01; Z68.41 Congestive heart failure I50.9 COPD (chronic obstructive pulmonary disease) J44.9 Mild major depression F32.0 Stage 3b chronic kidney disease N18.32 Chronic kidney disease stage 3 subtype: stage 3b (GFR 30-44) Hyperlipidemia LDL goal <70 E78.5 Essential hypertension I10 Additional Codes JES-7 Assessment Billing - JES-7 Assessment Tool: JES-7 Assessment 98058 ([id number]) Time Spent (min) 28
[2023-10-20 10:31] VITALS: BP 142/60; BMI 40.2
[2023-10-20 11:45] VITALS: BP 140/60
== END 2023-10-20 10:58 | disposition home or self-care (01) ==
PROVIDERS: PCP Internal Medicine; Visit Provider Internal Medicine
DX: I13.11 Hypertensive heart and chronic kidney disease without heart failure, with stage 5 chronic kidney disease, or end stage renal disease (principal); E11.22 Type 2 diabetes mellitus with diabetic chronic kidney disease; N18.2 Chronic kidney disease, stage 2 (mild); I50.9 Heart failure, unspecified; Z79.4 Long term (current) use of insulin; E66.01 Morbid (severe) obesity due to excess calories; Z68.41 Body mass index [BMI] 40.0-44.9, adult; J44.9 Chronic obstructive pulmonary disease, unspecified; F32.0 Major depressive disorder, single episode, mild; N18.32 Chronic kidney disease, stage 3b; E78.5 Hyperlipidemia, unspecified
CPT/HCPCS: 99214

== ENCOUNTER 2023-12-23 11:48 | Outpatient (REF) | payer OTHER, SELFPAY ==
[2023-12-24 12:54] LABS: BV Int Neg Control Negative (Negative); BV Int Pos Control Positive (Positive)
== END 2023-12-23 11:49 | disposition home or self-care (01) ==
LOC: HO.LNP 11:48
PROVIDERS: PCP Internal Medicine; Visit Provider Obstetrics & Gynecology
DX: N76.0 Acute vaginitis (principal)
CPT/HCPCS: 87480; 87510; 87660; 99212

== ENCOUNTER 2023-12-23 11:48 | Outpatient (AMB) | payer OTHER, SELFPAY ==
--- NOTE | 2023-12-23 11:51 | A.OFFVIS_ITS ---
Intake Vital Signs 12/23/23 11:58 Height 4 ft 9 in Weight 196 lb 3.382 oz BMI 42.5 BP 132/80 Intake Visit Reasons: vag itch Allergies acetaminophen [From Percocet] Allergy (Intermediate, Verified 10/20/23 10:47) Itching ibuprofen [From Motrin] Allergy (Intermediate, Verified 10/20/23 10:47) High Blood Pressure, Rash oxycodone [From Percocet] Allergy (Intermediate, Verified 10/20/23 10:47) Itching HPI HPI Comments History of Present Illness Details Presenting complaining of 3 weeks history of vulvovaginal itching that started after antibiotic use [facility] Medical History Dyspnea Furuncle Vulvar itching Vaginal lump Pleural effusion Exocrine pancreatic insufficiency Renal cyst, acquired, right Back pain Vitamin D deficiency HLD (hyperlipidemia) JOSE (obstructive sleep apnea) 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 Aortic stenosis CKD (chronic kidney disease) stage 3, GFR 30-59 ml/min Dyslipidemia Diabetic polyneuropathy associated with type 2 diabetes mellitus Diabetic nephropathy associated with type 2 diabetes mellitus Chronic kidney disease Hypertension Asthma Thalamic pain syndrome GERD (gastroesophageal reflux disease) Morbid obesity Surgical History H/O aortic valve replacement History of breast lump/mass excision History of tubal ligation History of cholecystectomy Family History Sister History of renal pelvis cancer Father Suicide Mother Lung disease Diabetes mellitus Social History Household Members: Family Housing: House Do you presently have visiting nurse or other home services: Yes (sock folder) Alcohol intake: never Comment: pt stays with pt. Patient Tobacco Use Status: Former Tobacco user Tobacco use type: Cigarette Years Smoked: 5 years e-Cigarette/Vaping Use: Never Used Second Hand Smoke Exposure: No service: No Current occupational status: unemployed and disabled Gender identity: Female Cognitive needs: Yes Hearing needs: No Vision needs: No Female Reproductive History Menstrual Age of Menarche: 10 Review of Systems Const All systems reviewed & are unremarkable except as noted in HPI and below Physical Exam Vital Signs: Last Vital Signs BP 132/80 12/23/23 11:58 BMI result Body Mass Index 42.5 General: Yes no CVA tenderness External Female Exam: normal external appearance and normal appearance of the urethra Speculum Exam - Vagina: normal appearance of the vagina, normal palpation, no lesions and no masses Speculum Exam - Cervix: normal appearance of the cervix, normal palpation, no lesions, no masses and nontender Bimanual exam- vagina & uterus: normal bimanual exam, normal palpation, uterine size normal, normal palpation, uterine shape normal, No Cervical tenderness present and non-tender Bimanual Exam- Adnexa, other: normal adnexae Back/Spine/Pelvis Back: no CVA tenderness Assessment & Plan Assessment & Plan (1) Vulvovaginitis: Code(s): N76.0 - Acute vaginitis Plan: Bacterial Vaginosis panel taken, Terazol 0.8% q.h.s. for 3 days was sent to the patient's pharmacy. The patient was instructed to call if symptoms don't improve in 48 hours. Medications: New clotrimazole-betamethasone 1-0.05 % 1 appl topical BID 45 grams 0RF 5 days terconazole 0.8% 1 appful vaginal BEDTIME 20 grams 0RF 3 days Coding Level of Care Code Est Pt Level 3 (96717) Diagnoses Vulvovaginitis N76.0
[2023-12-23 11:58] VITALS: BP 132/80; BMI 42.5
== END 2023-12-23 13:41 | disposition home or self-care (01) ==
LOC: HO.HWS 11:48
PROVIDERS: PCP Internal Medicine; Visit Provider Obstetrics & Gynecology
DX: N76.0 Acute vaginitis (principal)
CPT/HCPCS: 99213

== ENCOUNTER 2023-12-26 15:34 | Emergency (ER) | payer OTHER, SELFPAY ==
[2023-12-26 15:51] VITALS: BP 141/66; PULSE 100; RESP 18; TEMP 36.4; O2SAT 97; BMI 37.1
--- NOTE | 2023-12-26 15:51 | ED.GENADULT ---
HPI - General Adult General Chief complaint: Dizziness Stated complaint: high blood pressure Time Seen by Provider: 12/26/23 17:55 Source: patient, family, RN notes reviewed, old records reviewed and parts interpreter Mode of arrival: ambulatory Limitations: language barrier History of Present Illness HPI narrative: 78-year-old female with past medical history significant for hypertension, anxiety, chronic kidney disease, neuropathy, COPD, diabetes, heart failure presents for evaluation of ?my leg was trembling. ? Patient reports that while she was at [employer] standing she felt as if her leg was trembling and could not stop Patient reports she has a history of chronic back pain and continues to have left lower back pain. Her pain is constant. She states the leg is not traveling any longer She feels as though it may be related to ?nerves. ? She also reports that when she took her blood pressure was ?204/89. ? She reports being compliant with all of her medications She denies any chest pain, shortness of breath, abdominal pain or headache Currently she feels better and has no symptoms outside of the left lower back pain Related Data Home Medications Medication Instructions Recorded Confirmed folic acid 1 mg tablet 1 mg PO DAILY 08/21/21 10/20/23 fluticasone propionate 50 1 spray intranasal DAILY PRN 06/18/22 10/20/23 mcg/actuation nasal Allergy Symptoms spray,suspension blood-glucose meter (FreeStyle #1 ea 08/12/22 09/25/23 [place] Lite kit) Oxygen Home Use 03/15/23 09/25/23 blood sugar diagnostic (FreeStyle 03/15/23 09/25/23 Lite Strips) tobramycin 0.3 %-dexamethasone 0.1 1 drp ophthalmic (eye) QID 04/16/23 10/20/23 % eye drops,suspension torsemide 20 mg tablet 20 mg PO BID 05/13/23 10/20/23 Previous Rx's Medication Instructions Recorded FreeStyle Lancets 28 gauge #300 ea 01/15/22 (lancets) pen needle, diabetic 32 gauge x #400 ea 04/29/22 (BD Sia 2nd Gen Pen Needle) blood pressure monitor #1 ea 04/12/23 lancets 33 gauge (TRUEplus Lancets) #100 ea 04/15/23 gabapentin 300 mg capsule 300 mg PO BEDTIME 90 days #90 caps 07/15/23 ipratropium 0.5 mg-albuterol 3 mg 3 ml inhalation RQ4H WHILE AWAKE 04/17/23 (2.5 mg base)/3 mL nebulization #3 mL soln Novolog FlexPen U-100 Insulin 100 5 - 10 unit (0.05 - 0.1 mL) subcut 07/15/23 unit/mL (3 mL) subcutaneous TID #15 mL (insulin aspart U-100) terconazole 0.8 % vaginal cream 1 appful vaginal BEDTIME 3 days 07/15/23 #20 grams insulin glargine U-300 conc 300 32 unit (0.1067 mL) subcut DAILY 07/17/23 unit/mL (1.5 mL) subcutaneous pen #9 mL (Toujeo SoloStar U-300 Insulin) budesonide-formoterol HFA 160 2 puff inhalation BID 30 days 08/31/23 mcg-4.5 mcg/actuation aerosol #10.2 grams inhaler (Symbicort) disposable gloves #1,000 ea 09/01/23 incomtinemce liner pads #60 ea 09/01/23 wipes #240 ea 09/01/23 calcium acetate(phosphat bind) 667 667 mg PO BID 90 days #180 caps 09/02/23 mg capsule atorvastatin 40 mg tablet 40 mg PO BEDTIME 90 days #90 tabs 10/20/23 clotrimazole-betamethasone 1 1 appl topical BID fungal rash 7 10/20/23 %-0.05 % topical cream days #45 grams ergocalciferol (vitamin D2) 1,250 1,250 mcg PO QWEEK 90 days #13 caps 10/20/23 mcg (50,000 unit) capsule ferrous sulfate 325 mg (65 mg 325 mg PO .once a week 90 days #15 10/20/23 iron) tablet tabs losartan 25 mg tablet 25 mg PO DAILY 90 days #90 tabs 10/20/23 linagliptin 5 mg tablet (Tradjenta) 5 mg PO DAILY 90 days #90 tabs 10/28/23 empagliflozin 10 mg tablet 10 mg PO DAILY 90 days #90 tabs 11/24/23 (Jardiance) hydralazine 25 mg tablet 25 mg PO TID 90 days #270 tabs 11/24/23 aspirin 81 mg tablet,delayed 81 mg PO BEDTIME #90 tabs 11/29/23 release montelukast 10 mg tablet 10 mg PO QPM 90 days #90 tabs 12/02/23 amlodipine 10 mg tablet 10 mg PO DAILY #30 tabs 12/22/23 clotrimazole-betamethasone 1 1 appl topical BID 5 days #45 grams 12/23/23 %-0.05 % topical cream terconazole 0.8 % vaginal cream 1 appful vaginal BEDTIME 3 days 12/23/23 #20 grams Allergies Allergy/AdvReac Type Severity Reaction Status Date / Time ibuprofen [From Motrin] Allergy Intermediate High Blood Verified 12/26/23 15:51 Pressure, Rash oxycodone [From Percocet] Allergy Intermediate Itching Verified 12/26/23 15:51 Review of Systems Constitutional: Constitutional: Denies chills and Denies fever(s) Eyes: Eyes: Denies blurry vision ENT: Denies sore throat Cardiovascular: Cardiovascular: Denies chest pain and Denies dyspnea Respiratory: Respiratory: Denies cough and Denies dyspnea Gastrointestinal: Gastrointestinal: Denies abdominal pain, Denies nausea and Denies vomiting Musculoskeletal: Musculoskeletal: Reports back pain Neurologic: Reports radicular pain and Reports restless legs PMFSH Past Medical History Medical History Dyspnea Furuncle Vulvar itching Vaginal lump Pleural effusion Exocrine pancreatic insufficiency Renal cyst, acquired, right Back pain Vitamin D deficiency HLD (hyperlipidemia) JOSE (obstructive sleep apnea) 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 Aortic stenosis CKD (chronic kidney disease) stage 3, GFR 30-59 ml/min Dyslipidemia Diabetic polyneuropathy associated with type 2 diabetes mellitus Diabetic nephropathy associated with type 2 diabetes mellitus Chronic kidney disease Hypertension Asthma Thalamic pain syndrome GERD (gastroesophageal reflux disease) Morbid obesity Surgical History H/O aortic valve replacement History of breast lump/mass excision History of tubal ligation History of cholecystectomy Family History Family History Sister History of renal pelvis cancer Father Suicide Mother Lung disease Diabetes mellitus Social History Social History Household Members: Family Housing: House Do you presently have visiting nurse or other home services: 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 Patient Tobacco Use Status: Former Tobacco user Tobacco use type: Cigarette Years Smoked: 5 years e-Cigarette/Vaping Use: Never Used Second Hand Smoke Exposure: No Advance Directives: No Advance Directives Information Provided: No service: No Current occupational status: unemployed and disabled Gender identity: Female Cognitive needs: Yes Hearing needs: No Vision needs: No Physical Exam ED Vital Signs: Vital Signs - 24 hr 12/26/23 15:51 12/26/23 18:29 Temperature 97.6 F 0 F L Pulse Rate 100 76 Respiratory Rate 18 20 Blood Pressure 141/66 H 149/59 H Pulse Oximetry 97 97 Oxygen Delivery Method Room Air Room Air BMI result Body Mass Index 37.1 Const General: healthy appearing, comfortable, no acute distress, alert and awake Nutritional Appearance: well nourished Orientation/consciousness: patient oriented x3 HENMT Head: Yes normocephalic and Yes atraumatic Eyes Eyelids: Yes eyelids normal Conjunctivae: conjunctivae normal Sclerae: sclerae normal Corneas: corneas normal Pupils: Equal, round and reactive pupils present EOM: EOMs intact bilaterally Neck Neck: Yes full ROM Resp Effort & Inspection: normal respiratory effort, able to speak in complete sentences and not labored Cardio Rate: regular rate Rhythm: regular rhythm GI Inspection: No distended Palpation (GI): Soft to palpation, not firm, nontender, no guarding and not rigid Back/Spine/Pelvis Other: Tenderness to the left lumbar paraspinous region. No vertebral tenderness. Skin General skin exam: elasticity normal Neuro General: patient oriented x3 Cranial nerves: Yes CN's II-XII intact bilaterally, Yes Equal, round and reactive pupils present and Yes Bilaterally intact EOM present Cognition (Neuro): normal cognition Extrem Other: Moving all extremities well without any obvious deformities. No edema, rashes, color change, palpable cords to the left lower extremity. Negative straight leg raise bilaterally Course Course Course Narrative: RME:?78 yo female here for eval of trembling in legs and body that began while at [employer] earlier. States she checked her BP when she got home and it was 204/89, prompting her to come to ED. Denies chest pain, palpitations, headache, dizziness, SOB, LE edema or erythema. She is a type 2 diabetic and her sugar was 98 prior to arrival in ED. neuro intact. bp 141/66 in triage. Labs and POC ordered. Full HPI, ROS and PE to be performed by the primary ED provider. Medical Decision Making Medical Decision Making [facility] Narrative: 78-year-old female with complicated past medical history as documented above presents for evaluation of shaking in her left leg. This lasted for several minutes. She has been complaining of back pain for over a week. Patient reports her blood pressure was elevated at home but is substantially improved to 140 1/66 in triage. She has no neuro deficits on exam. Her leg is not tremulous as reported earlier. Her medical workup has a slight leukocytosis to 13.8 of unclear etiology, she has no left shift. She tends to have a slightly elevated leukocytosis which may be her baseline. She has no anemia, her hemoglobin hematocrit are within normal limits. Her platelet count is slightly elevated to 408 K. patient has chronic kidney disease, her BUN and creatinine are slightly elevated to her baseline. Her glucose is elevated to 222, no evidence of DKA. LFTs are within normal limits. Troponin is within normal limits at 5.4 the patient denies any chest pain. Patient's EKG is normal sinus rhythm with a sinus arrhythmia. No ST segment elevations or depressions. No significant change when compared to previous from April 16, 2023. Differential Diagnosis Differential Diagnoses: The differential diagnosis associated with the presentation includes Back pain Radiculopathy Sciatica Anxiety ACS less likely DVT less likely Lab Data [facility] Lab Attestation statement: I reviewed the patient's lab results. Please see above 12/26/23 16:16 12/26/23 16:16 Labs: Lab Results 12/26/23 Range/Units 16:16 WBC 13.8 H (4.8-10.8) X10*3/uL RBC 5.76 H (4.20-5.50) X10*6/uL Hgb 13.7 (12.0-16.0) g/dl Hct 42.7 (37.0-47.0) % MCV 74.1 L (80.0-98.0) fL MCH 23.8 L (27.0-33.0) pg MCHC 32.1 (31.0-35.0) g/dl RDW 17.6 H (11.0-16.0) % Plt Count 408 H (160-400) X10*3/uL MPV 8.9 L (9.4-12.3) fL Immature Gran % (Auto) 0.5 H (0.0-0.4) % Neut % (Auto) 72.3 (45-73) % Lymph % (Auto) 20.6 (20-40) % Alexander % (Auto) 5.1 (2-11) % Eos % (Auto) 0.9 (0-4) % Baso % (Auto) 0.6 (0-2) % Lymph # (Auto) 2.8 (1.2-4.9) X10*3/uL Alexander # (Auto) 0.7 (0.1-1.2) X10*3/uL Eos # (Auto) 0.1 (0.0-0.4) X10*3/uL Baso # (Auto) 0.1 (0.0-0.2) X10*3/uL Abs Immat Gran (auto) 0.07 H (0.00-0.03) X10*3/uL Absolute Neuts (auto) 10.0 H (2.0-8.3) x10*3/uL Absolute Nucleated RBC 0.000 (0.0-0.012) X10*3/uL Nucleated RBC % (auto) 0.0 (0.0-0.2) /100WBC PT 11.5 (11.1-13.3) SEC INR 0.9 (0.9-1.1) Sodium 142 (135-145) mmol/L Potassium 4.1 (3.3-5.1) mmol/L Chloride 108 (96-108) mmol/L Carbon Dioxide 23 (22-29) mmol/L Anion Gap 15 (12-20) BUN 35 H (9-16) mg/dL Creatinine 1.46 H (0.5-1.4) mg/dL Estim Creat Clear Calc 30.9 Estimated GFR 35 Random Glucose 222 H (60-115) mg/dL Calcium 9.7 (8.4-10.2) mg/dL Magnesium 2.4 (1.6-2.6) mg/dL Total Bilirubin 0.4 (0.0-1.0) mg/dL AST 16 (5-31) U/L ALT 17 (0-31) U/L Alkaline Phosphatase 158 H (39-117) U/L Troponin I High Sens 5.4 D (<3.5-17.0) ng/L Total Protein 8.1 H (6.5-8.0) g/dL Albumin 3.6 (3.5-5.0) g/dL Independent Interpretation I performed an independent interpretation of an: EKG (See above) Discharge Plan Discharge Clinical Impression: Back pain, Hypertension Patient Disposition: Home, Self-Care Instructions: Acute Low Back Pain (ED) Additional Instructions: Your workup in the ER today was reassuring. I recommend taking Tylenol for your back pain. Follow-up with your primary doctor Return for new or worsening symptoms Prescriptions: No Action (DME) lancets [FreeStyle Lancets] 28 gauge misc See Rx Instructions .MEDSUPPLY Qty: 300 2RF Rx Instructions: 3 times a day (DME) pen needle, diabetic [BD Sia 2nd Gen Pen Needle] 32 gauge x 5/32 needle See Rx Instructions .MEDSUPPLY Qty: 400 4RF Rx Instructions: 5 times a day (DME) blood pressure monitor Kit See Rx Instructions .Route Qty: 1 0RF Rx Instructions: As directed (DME) lancets [TRUEplus Lancets] 33 gauge misc See Rx Instructions .Route Qty: 100 4RF Rx Instructions: As directed test 4 times a day gabapentin 300 mg capsule 300 mg PO BEDTIME 90 Days Qty: 90 3RF insulin aspart U-100 [Novolog FlexPen U-100 Insulin] 100 unit/mL (3 mL) insulin pen 5 - 10 unit subcut TID Qty: 15 3RF Toujeo SoloStar U-300 Insulin 300 unit/mL (1.5 mL) insulin pen 32 unit subcut DAILY Qty: 9 1RF (DME) wipes See Rx Instructions .Route .MEDSUPPLY Qty: 240 12RF Rx Instructions: As directed (DME) disposable gloves Misc See Rx Instructions .Route Qty: 1000 12RF Rx Instructions: As directed (DME) incomtinemce liner pads See Rx Instructions .Route .MEDSUPPLY Qty: 60 12RF Rx Instructions: As directed calcium acetate(phosphat bind) 667 mg capsule 667 mg PO BID 90 Days Qty: 180 1RF Tradjenta 5 mg tablet 5 mg PO DAILY 90 Days Qty: 90 0RF hydralazine 25 mg tablet 25 mg PO TID 90 Days Qty: 270 1RF Jardiance 10 mg tablet 10 mg PO DAILY 90 Days Qty: 90 1RF aspirin 81 mg tablet,delayed release (DR/EC) 81 mg PO BEDTIME Qty: 90 0RF montelukast 10 mg tablet 10 mg PO QPM 90 Days Qty: 90 3RF amlodipine 10 mg tablet 10 mg PO DAILY Qty: 30 2RF tobramycin-dexamethasone 0.3-0.1 % drops,suspension 1 drp ophthalmic (eye) QID ipratropium-albuterol 0.5 mg-3 mg(2.5 mg base)/3 mL Solution For Nebulization 3 ml inhalation RQ4H WHILE AWAKE Qty: 3 0RF torsemide 20 mg tablet 20 mg PO BID clotrimazole-betamethasone 1-0.05 % cream 1 appl topical BID 7 Days Qty: 45 1RF ergocalciferol (vitamin D2) 1,250 mcg (50,000 unit) capsule 1,250 mcg PO QWEEK 90 Days Qty: 13 1RF ferrous sulfate 325 mg (65 mg iron) tablet 325 mg PO .once a week 90 Days Qty: 15 1RF atorvastatin 40 mg tablet 40 mg PO BEDTIME 90 Days Qty: 90 1RF losartan 25 mg tablet 25 mg PO DAILY 90 Days Qty: 90 0RF folic acid 1 mg tablet 1 mg PO DAILY fluticasone propionate 50 mcg/actuation spray,suspension 1 spray intranasal DAILY PRN (Reason: Allergy Symptoms) (DME) blood-glucose meter [FreeStyle [place] Lite] Kit See Rx Instructions .ROUTE .MEDSUPPLY Qty: 1 Rx Instructions: As directed (DME) FreeStyle Lite Strips Strip See Rx Instructions .MEDSUPPLY Rx Instructions: 3times a day (DME) Oxygen Home Use Kit See Rx Instructions .Route Rx Instructions: As directed terconazole 0.8 % cream 1 appful vaginal BEDTIME 3 Days Qty: 20 0RF budesonide-formoterol [Symbicort] 160-4.5 mcg/actuation HFA aerosol inhaler 2 puff inhalation BID 30 Days Qty: 10.2 11RF clotrimazole-betamethasone 1-0.05 % cream 1 appl topical BID 5 Days Qty: 45 0RF terconazole 0.8 % cream 1 appful vaginal BEDTIME 3 Days Qty: 20 0RF Interventions: ED Discharge Assessment Last Done: 12/26/23 18:29 Discharge Date/Time: 12/26/23 18:33
--- NOTE | 2023-12-26 15:55 | ECG_ITS ---
Test Reason : dizziness Blood Pressure : / mmHG Vent. Rate : 091 BPM Atrial Rate : 091 BPM P-R Int : 126 ms QRS Dur : 092 ms QT Int : 356 ms P-R-T Axes : 049 014 092 degrees QTc Int : 437 ms Normal sinus rhythm with sinus arrhythmia T wave abnormality, consider lateral ischemia Abnormal ECG When compared with ECG of 16-APR-2023 13:45, Vent. rate has increased BY 44 BPM Referred By: Kim Jorge Electronically Signed By:Kip Johnson
[2023-12-26 16:21] LABS: MANUAL DIFF FLAG NO
[2023-12-26 16:22] LABS: Basophils Absolute Auto 0.1 X10*3/uL (0.0-0.2); Basophils Percent Auto 0.6 % (0-2); Eosinophils Absolute Auto 0.1 X10*3/uL (0.0-0.4); Eosinophils Percent Auto 0.9 % (0-4); Hematocrit 42.7 % (37.0-47.0); Hemoglobin 13.7 g/dl (12.0-16.0); Imm Gran Abs Auto 0.07 X10*3/uL (0.00-0.03); Imm Gran Pct Auto 0.5 % (0.0-0.4); Lymphocytes Absolute Auto 2.8 X10*3/uL (1.2-4.9); Lymphocytes Percent Auto 20.6 % (20-40); Mean Corpuscular HGB Conc 32.1 g/dl (31.0-35.0); Mean Corpuscular Hemoglobin 23.8 pg (27.0-33.0); Mean Corpuscular Volume 74.1 fL (80.0-98.0); Mean Platelet Volume 8.9 fL (9.4-12.3); Monocytes Absolute Auto 0.7 X10*3/uL (0.1-1.2); Monocytes Percent Auto 5.1 % (2-11); Neutrophils Percent Auto 72.3 % (45-73); Platelet Count 408 X10*3/uL (160-400); Red Blood Count 5.76 X10*6/uL (4.20-5.50); Red Cell Distribution Width 17.6 % (11.0-16.0); White Blood Count 13.8 X10*3/uL (4.8-10.8)
[2023-12-26 16:27] LABS: INTERNATIONAL NORM RATIO 0.9 (0.9-1.1); Prothrombin Time 11.5 SEC (11.1-13.3)
[2023-12-26 16:39] LABS: Alanine Aminotransferase 17 U/L (0-31); Albumin Level 3.6 g/dL (3.5-5.0); Alkaline Phosphatase 158 U/L (39-117); Anion Gap 15 (12-20); Aspartate Amino Transferase 16 U/L (5-31); Bilirubin Total 0.4 mg/dL (0.0-1.0); Blood Urea Nitrogen 35 mg/dL (9-16); Calcium 9.7 mg/dL (8.4-10.2); Carbon Dioxide 23 mmol/L (22-29); Chloride 108 mmol/L (96-108); Creatinine Clr Calc Pharmacy 30.9; Estimated Glomerular Filt Rate 35; Glucose Random 222 mg/dL (60-115); Magnesium 2.4 mg/dL (1.6-2.6); Potassium 4.1 mmol/L (3.3-5.1); Sodium 142 mmol/L (135-145); Total Protein 8.1 g/dL (6.5-8.0)
[2023-12-26 16:46] LABS: Troponin-I High Sensitivity 5.4 ng/L (<3.5-17.0)
--- NOTE | 2023-12-26 18:26 | PC.NURSE ---
PT SEEN BY [facility] AND IS NOW CLEARED FOR DISCHARGE. PT'S HAS BEEN AT HER BEDSIDE. NO COMPLAINTS AT THIS TIME.
[2023-12-26 18:29] VITALS: BP 149/59; PULSE 76; RESP 20; TEMP -17.7; TEMP 0; O2SAT 97
== END 2023-12-26 18:33 | disposition home or self-care (01) ==
PROVIDERS: Physician Assistant Medical; Emergency Provider Emergency Medicine; PCP Internal Medicine
DX: M54.9 Dorsalgia, unspecified (principal); I12.9 Hypertensive chronic kidney disease with stage 1 through stage 4 chronic kidney disease, or unspecified chronic kidney disease; E11.22 Type 2 diabetes mellitus with diabetic chronic kidney disease; N18.30 Chronic kidney disease, stage 3 unspecified; J44.9 Chronic obstructive pulmonary disease, unspecified
CPT/HCPCS: 36415; 80053; 83735; 84484; 85025; 85610; 93005; 99283; 99284

== ENCOUNTER → 2023-12-26 15:55 | Outpatient (BNV) | payer OTHER, SELFPAY | PROVIDERS: Emergency Provider Emergency Medicine; PCP Internal Medicine; Visit Provider Internal Medicine Cardiovascular Disease | DX: R42 Dizziness and giddiness (principal) | CPT/HCPCS: 93010 ==

== ENCOUNTER 2024-01-25 12:57 | Outpatient (REF) | payer OTHER, SELFPAY ==
[2024-01-25 13:23] LABS: MANUAL DIFF FLAG NO
[2024-01-25 13:46] LABS: Basophils Absolute Auto 0.1 X10*3/uL (0.0-0.2); Basophils Percent Auto 0.5 % (0-2); Eosinophils Absolute Auto 0.2 X10*3/uL (0.0-0.4); Eosinophils Percent Auto 1.7 % (0-4); Hematocrit 41.7 % (37.0-47.0); Hemoglobin 13.5 g/dl (12.0-16.0); Imm Gran Abs Auto 0.04 X10*3/uL (0.00-0.03); Imm Gran Pct Auto 0.3 % (0.0-0.4); Lymphocytes Absolute Auto 2.4 X10*3/uL (1.2-4.9); Lymphocytes Percent Auto 19.4 % (20-40); Mean Corpuscular HGB Conc 32.4 g/dl (31.0-35.0); Mean Corpuscular Hemoglobin 24.2 pg (27.0-33.0); Mean Corpuscular Volume 74.6 fL (80.0-98.0); Mean Platelet Volume 9.2 fL (9.4-12.3); Monocytes Absolute Auto 0.8 X10*3/uL (0.1-1.2); Monocytes Percent Auto 6.9 % (2-11); Neutrophils Absolute Auto 8.7 x10*3/uL (2.0-8.3); Neutrophils Percent Auto 71.2 % (45-73); Platelet Count 386 X10*3/uL (160-400); Red Blood Count 5.59 X10*6/uL (4.20-5.50); Red Cell Distribution Width 16.4 % (11.0-16.0); White Blood Count 12.2 X10*3/uL (4.8-10.8)
[2024-01-25 14:14] LABS: Alanine Aminotransferase 18 U/L (0-31); Albumin Level 3.5 g/dL (3.5-5.0); Alkaline Phosphatase 165 U/L (39-117); Anion Gap 14 (12-20); Aspartate Amino Transferase 19 U/L (5-31); Bilirubin Total 0.3 mg/dL (0.0-1.0); Blood Urea Nitrogen 31 mg/dL (9-16); Calcium 9.8 mg/dL (8.4-10.2); Carbon Dioxide 27 mmol/L (22-29); Chloride 103 mmol/L (96-108); Cholesterol 200 mg/dL (<200); Estimated Glomerular Filt Rate 33; Glucose Fasting 183 mg/dL (60-99); HDL Cholesterol 51 mg/dL (>40); Iron 30 mcg/dL (30-160); LDL Cholesterol Calculated 108 mg/dL (<100); Percent Iron Saturation 12 % (15-50); Potassium 4.2 mmol/L (3.3-5.1); Sodium 140 mmol/L (135-145); Total Iron Binding Capacity 247 mcg/dL (228-428); Triglycerides 209 mg/dL (<150); Unsaturated Iron Binding 217 ug/dL
[2024-01-25 14:31] LABS: Vitamin D 25-OH Total 28.1 ng/mL (>30)
[2024-01-25 14:40] LABS: Appearance Urine Turbid; Color Urine Yellow; Glucose Urine UA >=1000 mg/dL (Negative); Leukocyte Esterase Urine Large (3+) (Negative); Nitrite Urine Positive (Negative); PH 5.5 (5.0-9.0); Specific Gravity - Urine 1.015 (1.005-1.025); UMIC TRIGGER UACC YES; Urine Blood Trace (Negative); Urine Ketones Negative (Negative); Urine Protein 300 (3+) mg/dL (Neg-Trace)
[2024-01-25 14:45] LABS: Bacteria Urine 4+ (None Seen); RBC Urine 0-2 /HPF (0-2); Squamous Epithelial Cell Urine 0-2 /HPF (0-2); UACC Culture Trigger YES; WBC Urine >50 /HPF (0-5)
[2024-01-29 15:03] LABS: NT-proBNP 219 pg/mL (<450)
== END 2024-01-25 12:58 | disposition home or self-care (01) ==
LOC: HO.LAB 12:57
PROVIDERS: PCP Internal Medicine; Visit Provider Internal Medicine
DX: I11.0 Hypertensive heart disease with heart failure (principal); I50.9 Heart failure, unspecified; E11.9 Type 2 diabetes mellitus without complications; E55.9 Vitamin D deficiency, unspecified; E78.5 Hyperlipidemia, unspecified; D64.9 Anemia, unspecified; R82.90 Unspecified abnormal findings in urine
CPT/HCPCS: 36415; 80053; 80061; 81001; 82043; 82306; 82570; 83540; 83880; 85025; 87086; 87088; 87186

== ENCOUNTER 2024-01-31 14:09 | Outpatient (AMB) | payer OTHER, SELFPAY ==
--- NOTE | 2024-01-31 14:10 | HO.NEPHOV_ITS ---
Vital Signs 01/31/24 14:11 Height 4 ft 9 in Weight 191 lb BMI 41.3 BP 124/50 L Blood Pressure Location Rt brachial Position Sitting Pulse 73 Pulse Source Pulse Oximeter Pulse Oximetry (%) 96 Oxygen Delivery Method Room Air Intake Visit Reasons: Internal referral DX-CKD/ Confirmed Cook Starch Required: No Accompanied by: Daughter Allergies ibuprofen [From Motrin] Allergy (Intermediate, Verified 01/31/24 14:15) High Blood Pressure, Rash oxycodone [From Percocet] Allergy (Intermediate, Verified 01/31/24 14:15) Itching HPI Comments Details: 78-year-old woman with a history of longstanding diabetes mellitus and hypertension with congestive heart failure has been referred for CKD. She has a history of CKD. She has baseline creatinine of 1.4 mg/dL. She has had episodes of ARLEY due to hypoperfusion in setting of heart failure. Today she is accompanied by her daughter. She complains of low back pain. No dysuria urgency increased frequency. No shortness of breath. No diarrhea constipation. All other systems were reviewed. [facility] Medical History Dyspnea Furuncle Vulvar itching Vaginal lump Pleural effusion Exocrine pancreatic insufficiency Renal cyst, acquired, right Back pain Vitamin D deficiency HLD (hyperlipidemia) JOSE (obstructive sleep apnea) [id number] syndrome Aortic stenosis CKD (chronic kidney disease) stage 3, GFR 30-59 ml/min Dyslipidemia Diabetic polyneuropathy associated with type 2 diabetes mellitus Diabetic nephropathy associated with type 2 diabetes mellitus Chronic kidney disease Hypertension Asthma Thalamic pain syndrome GERD (gastroesophageal reflux disease) Morbid obesity Surgical History H/O aortic valve replacement History of breast lump/mass excision History of tubal ligation History of cholecystectomy Family History Sister History of renal pelvis cancer Father Suicide Mother Lung disease Diabetes mellitus Social History Household Members: Family Housing: House Do you presently have 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 Patient Tobacco Use Status: Former Tobacco user Tobacco use type: Cigarette Years Smoked: 5 years e-Cigarette/Vaping Use: Never Used Second Hand Smoke Exposure: No service: No Current occupational status: unemployed and disabled Gender identity: Female Cognitive needs: Yes Hearing needs: No Vision needs: No Female Reproductive History Menstrual Age of Menarche: 10 Physical Exam Vital Signs: Last Vital Signs Pulse 73 01/31/24 14:11 BP 124/50 L 01/31/24 14:11 Pulse Ox 96 01/31/24 14:11 Oxygen Delivery Method Room Air 01/31/24 14:11 BMI result Body Mass Index 41.3 Const General: comfortable Nutritional Appearance: well nourished Orientation/consciousness: patient oriented x3 HEENT Head: No normal to inspection Mouth: moist mucous membranes Neck Neck: Yes supple and Yes no JVD Resp Auscultation: clear to auscultation bilaterally, no rales and rub present Cardio Jugular venous distension: no JVD Palpation: no palpable S3 and no palpable S4 Heart sounds: no rubs GI Palpation (GI): Soft to palpation and nontender Percussion: No Fluid wave present General: Yes no CVA tenderness Back/Spine/Pelvis Back: no CVA tenderness Skin General skin exam: no rashes or lesions noted Neuro General: patient oriented x3 Extrem General: Yes no pedal edema and No clubbing Results Reviewed Nephrology Results: Hgb 13.5 g/dl (12.0-16.0) 01/25/24 WBC 12.2 X10*3/uL (4.8-10.8) H 01/25/24 Plt Count 386 X10*3/uL (160-400) 01/25/24 Sodium 140 mmol/L (135-145) 01/25/24 Potassium 4.2 mmol/L (3.3-5.1) 01/25/24 Chloride 103 mmol/L (96-108) 01/25/24 Carbon Dioxide 27 mmol/L (22-29) 01/25/24 BUN 31 mg/dL (9-16) H 01/25/24 Creatinine 1.51 mg/dL (0.5-1.4) H 01/25/24 Calcium 9.8 mg/dL (8.4-10.2) 01/25/24 Urine Protein 300 (3+) mg/dL (Neg-Trace) H 01/25/24 Urine Creatinine 21.70 mg/dL 01/25/24 Assessment & Plan Assessment & Plan (1) UTI (urinary tract infection): Comment: E coli Code(s): N39.0 - Urinary tract infection, site not specified Category: Medical Plan: Nitrofurantoin has been prescribed by PCP. She will recheck urine culture a week after this. (2) CKD (chronic kidney disease) stage 3, GFR 30-59 ml/min: Comment: ARLEY due to compromise in renal perfusion due to CRS Getting diuresis; Serum creatinine is at baseline Code(s): N18.30 - Chronic kidney disease, stage 3 unspecified Category: Medical Qualifiers: Chronic kidney disease stage 3 subtype: stage 3b (GFR 30-44) Qualified Code(s): N18.32 - Chronic kidney disease, stage 3b Plan: Goal is to slow the progression of CKD Maintain blood pressure less than 130/80 Maintain A1c less than 7% She needs weight loss. Agree with SGLT2 inhibitors. Continue overt nephrotoxic agents including NSAIDs (3) Proteinuria: Comment: Due to underlying diabetic kidney disease. Code(s): R80.9 - Proteinuria, unspecified Category: Medical Plan: Serology ordered to rule out nondiabetic causes. Goal is to slow the portion disease Continue with RAAS inhibition. (4) Renal cyst, acquired, right: Comment: Simple cyst Code(s): N28.1 - Cyst of kidney, acquired Category: Medical Plan: No further imaging is necessary. She will follow as needed (5) Anemia: Code(s): D64.9 - Anemia, unspecified Category: Medical Qualifiers: Anemia type: other cause Other causes of anemia: other cause, not classified Qualified Code(s): D64.89 - Other specified anemias Plan: Multifactorial. Erythropoietin deficiency could be playing a role. Check iron stores and see if she needs iron replacement Orders: Orders Basic Metabolic Panel 1 Week N18.32 - Chronic kidney disease, stage 3b, N39.0 - Urinary tract infection, site not specified Urine Culture 1 Week N18.32 - Chronic kidney disease, stage 3b, N39.0 - Urinary tract infection, site not specified Protein Electrophoresis, Serum 1 Week N18.32 - Chronic kidney disease, stage 3b, N39.0 - Urinary tract infection, site not specified Parathyroid Hormone Intact 1 Week N18.32 - Chronic kidney disease, stage 3b, N39.0 - Urinary tract infection, site not specified UA and rflx microscopic 1 Week N18.32 - Chronic kidney disease, stage 3b, N39.0 - Urinary tract infection, site not specified Phospholipase A2 Receptor Pnl 1 Week N18.32 - Chronic kidney disease, stage 3b, N39.0 - Urinary tract infection, site not specified Coding Level of Care Code New Pt Level 5 (40466) Diagnoses UTI (urinary tract infection) N39.0 Stage 3b chronic kidney disease N18.32 Chronic kidney disease stage 3 subtype: stage 3b (GFR 30-44) Proteinuria R80.9 Renal cyst, acquired, right N28.1 Anemia due to other cause, not classified D64.89 Anemia type: other cause Other causes of anemia: other cause, not classified
[2024-01-31 14:11] VITALS: BP 124/50; PULSE 73; O2SAT 96; BMI 41.3
== END 2024-01-31 14:41 | disposition home or self-care (01) ==
PROVIDERS: PCP Internal Medicine; Visit Provider Internal Medicine Hypertension Specialist
DX: N39.0 Urinary tract infection, site not specified (principal); N18.32 Chronic kidney disease, stage 3b; R80.9 Proteinuria, unspecified; N28.1 Cyst of kidney, acquired; D64.89 Other specified anemias
CPT/HCPCS: 99205

== ENCOUNTER → 2024-01-31 14:09 | Outpatient (BNVA) | payer OTHER, SELFPAY | PROVIDERS: PCP Internal Medicine; Visit Provider Internal Medicine Hypertension Specialist | DX: E11.22 Type 2 diabetes mellitus with diabetic chronic kidney disease (principal); I13.0 Hypertensive heart and chronic kidney disease with heart failure and stage 1 through stage 4 chronic kidney disease, or unspecified chronic kidney disease; I50.9 Heart failure, unspecified; N18.32 Chronic kidney disease, stage 3b; N39.0 Urinary tract infection, site not specified; R80.9 Proteinuria, unspecified; N28.1 Cyst of kidney, acquired; D64.89 Other specified anemias | CPT/HCPCS: 99202 ==

== ENCOUNTER 2024-02-07 14:02 | Outpatient (REF) | payer OTHER, SELFPAY ==
[2024-02-07 15:11] LABS: Appearance Urine Clear; Color Urine Yellow; Glucose Urine UA >=1000 mg/dL (Negative); Leukocyte Esterase Urine Small (1+) (Negative); Nitrite Urine Negative (Negative); UMIC TRIGGER UACC YES; Urine Blood Trace (Negative); Urine Ketones Negative (Negative); Urine Protein 100 (2+) mg/dL (Neg-Trace)
[2024-02-07 15:14] LABS: Bacteria Urine None Seen (None Seen); Hyaline Casts Urine 0-2 /LPF (0-2); Squamous Epithelial Cell Urine 0-2 /HPF (0-2); UACC Culture Trigger YES; WBC Urine >50 /HPF (0-5)
== END 2024-02-07 14:03 | disposition home or self-care (01) ==
LOC: HO.LAB 14:02
PROVIDERS: Absent Provider Internal Medicine Nephrology; PCP Internal Medicine; Visit Provider Internal Medicine Hypertension Specialist
DX: N18.32 Chronic kidney disease, stage 3b (principal); N39.0 Urinary tract infection, site not specified; E11.22 Type 2 diabetes mellitus with diabetic chronic kidney disease; R80.1 Persistent proteinuria, unspecified; N25.0 Renal osteodystrophy
CPT/HCPCS: 81001; 87086

== ENCOUNTER 2024-02-14 11:08 | Outpatient (REF) | payer OTHER, SELFPAY ==
--- NOTE | ~2024-02-14 | MM_ITS ---
EXAMINATION: MM SCREENING DIGITAL BREAST TOMOSYNTHESIS, BILATERAL CLINICAL INFORMATION: Screening. Asymptomatic. COMPARISON: Mammography: This study is compared with prior exams dating back to 2019. TECHNIQUE: Digital breast tomosynthesis is performed in both the craniocaudal and mediolateral oblique views along with computer-aided detection (CAD). Synthesized 2D images are generated from the tomosynthesis. FINDINGS: There are scattered areas of fibroglandular density (ACR BI-RADS breast composition Category b). There are no significant masses, abnormal calcifications, or other abnormalities. Bilateral benign calcifications are present. MM/MM tomosynthesis screening BI IMPRESSION: No mammographic evidence of malignancy. ASSESSMENT: BI-RADS BI-RADS 2 - Benign Findings RECOMMENDATION: Routine annual mammography screening. 1 year F/U This examination should not preclude the clinical evaluation of a suspicious palpable abnormality. This patient's information was entered into a reminder system with a target due date for their next mammogram.
== END 2024-02-14 11:09 | disposition home or self-care (01) ==
LOC: HO.MAMMO 11:08
PROVIDERS: PCP Internal Medicine; Visit Provider Internal Medicine
DX: Z12.31 Encounter for screening mammogram for malignant neoplasm of breast (principal)
CPT/HCPCS: 77063; 77067

== ENCOUNTER → 2024-02-14 11:30 | Outpatient (BNV) | payer OTHER, SELFPAY | PROVIDERS: PCP Internal Medicine; Visit Provider Radiology Diagnostic Radiology | DX: Z12.31 Encounter for screening mammogram for malignant neoplasm of breast (principal) | CPT/HCPCS: 77063; 77067 ==

== ENCOUNTER 2024-02-21 13:00 | Outpatient (REF) | payer OTHER, SELFPAY ==
[2024-02-21 15:26] LABS: Appearance Urine Turbid; Color Urine Yellow; Glucose Urine UA >=1000 mg/dL (Negative); Leukocyte Esterase Urine Large (3+) (Negative); Nitrite Urine Positive (Negative); UMIC TRIGGER UACC YES; Urine Blood Negative (Negative); Urine Ketones Negative (Negative); Urine Protein 100 (2+) mg/dL (Neg-Trace)
[2024-02-21 15:29] LABS: Bacteria Urine 4+ (None Seen); Hyaline Casts Urine 0-2 /LPF (0-2); RBC Urine 0-2 /HPF (0-2); Squamous Epithelial Cell Urine 0-2 /HPF (0-2); UACC Culture Trigger YES; WBC Urine >50 /HPF (0-5)
[2024-02-21 16:21] LABS: Alanine Aminotransferase 15 U/L (0-31); Albumin Level 3.8 g/dL (3.5-5.0); Alkaline Phosphatase 169 U/L (39-117); Anion Gap 17 (12-20); Aspartate Amino Transferase 18 U/L (5-31); Bilirubin Total 0.4 mg/dL (0.0-1.0); Blood Urea Nitrogen 40 mg/dL (9-16); Calcium 10.4 mg/dL (8.4-10.2); Carbon Dioxide 28 mmol/L (22-29); Chloride 102 mmol/L (96-108); Cholesterol 186 mg/dL (<200); Estimated Glomerular Filt Rate 29; Glucose Fasting 139 mg/dL (60-99); HDL Cholesterol 51 mg/dL (>40); LDL Cholesterol Calculated 97 mg/dL (<100); Potassium 3.5 mmol/L (3.3-5.1); Sodium 143 mmol/L (135-145); Total Protein 8.3 g/dL (6.5-8.0); Triglycerides 194 mg/dL (<150)
[2024-02-21 16:37] LABS: Thyroid Stimulating Hormone 2.04 uIU/mL (0.32-4.0)
== END 2024-02-21 13:01 | disposition home or self-care (01) ==
LOC: HO.LAB 13:00
PROVIDERS: PCP Internal Medicine; Visit Provider Physician Assistant
DX: G47.33 Obstructive sleep apnea (adult) (pediatric) (principal); J45.40 Moderate persistent asthma, uncomplicated; E66.9 Obesity, unspecified; M54.9 Dorsalgia, unspecified; I35.0 Nonrheumatic aortic (valve) stenosis; R06.00 Dyspnea, unspecified; E11.22 Type 2 diabetes mellitus with diabetic chronic kidney disease; E11.21 Type 2 diabetes mellitus with diabetic nephropathy; E11.65 Type 2 diabetes mellitus with hyperglycemia; E11.42 Type 2 diabetes mellitus with diabetic polyneuropathy; I12.9 Hypertensive chronic kidney disease with stage 1 through stage 4 chronic kidney disease, or unspecified chronic kidney disease; N18.9 Chronic kidney disease, unspecified; E78.2 Mixed hyperlipidemia; N39.0 Urinary tract infection, site not specified; Z79.4 Long term (current) use of insulin
CPT/HCPCS: 36415; 80053; 80061; 81001; 82947; 83036; 84443; 87086; 87088; 87186; 99212

== ENCOUNTER 2024-02-21 13:00 | Outpatient (AMB) | payer OTHER, SELFPAY ==
--- NOTE | 2024-02-21 13:01 | A.OFFVIS_ITS ---
Vital Signs 02/21/24 13:05 Height 4 ft 9 in Weight 192 lb 14.472 oz BMI 41.7 BP 118/56 L Blood Pressure Location Rt brachial Position Sitting Pulse 68 Pulse Source Pulse Oximeter Intake Visit Reasons: Type 2 DM Intake Note: Patient present today to follow up on Type 2 Diabetes Mellitus. Last seen by Dr. Elizabeth on 10/06/2023. Last Diabetic Eye exam: approx 1-2 months Last Podiatry Visit: Over 1 year, has an upcoming appointment. Random Glucose: 159 mg/dl HgA1C: 8.6% Wildlife Biology Internship Required: Yes Wildlife Biology Internship Language: [employer] Supervisor Name: ANDREAS Mehta Accompanied by: Daughter Allergies ibuprofen [From Motrin] Allergy (Intermediate, Verified 02/21/24 13:07) High Blood Pressure, Rash oxycodone [From Percocet] Allergy (Intermediate, Verified 02/21/24 13:07) Itching Medication List - Last Reconciled 02/21/24 by Ariana Barksdale PA-C amlodipine 10 mg PO DAILY aspirin 81 mg PO BEDTIME atorvastatin 80 mg PO BEDTIME 90 days blood pressure monitor As directed blood sugar diagnostic (FreeStyle Lite Strips) 3times a day blood-glucose meter (FreeStyle [place] Lite kit) As directed budesonide-formoterol 160-4.5 mcg/actuation (Symbicort) 2 puffs inhalation BID 30 days calcium acetate(phosphat bind) 667 mg PO BID 90 days cholecalciferol (vitamin D3) 25 mcg PO DAILY 90 days clotrimazole-betamethasone 1-0.05 % 1 appl topical BID 5 days disposable gloves As directed ferrous sulfate 325 mg PO .once a week 90 days fluticasone propionate 50 mcg/actuation 1 spray intranasal DAILY PRN folic acid 1 mg PO QAM 90 days FreeStyle Lancets (lancets) 3 times a day NS gabapentin 300 mg PO BEDTIME 90 days hydralazine 25 mg PO TID 90 days [incomtinemce liner pads As directed] insulin glargine U-300 conc (Toutayler SoloStar U-300 Insulin) 36 units subcut DAILY ipratropium-albuterol 0.5 mg-3 mg(2.5 mg base)/3 mL 3 mL inhalation RQ4H WHILE AWAKE lancets (TRUEplus Lancets) As directed test 4 times a day losartan 25 mg PO DAILY 90 days montelukast 10 mg PO QPM 90 days Novolog FlexPen U-100 Insulin (insulin aspart U-100) 5 - 10 units (0.05 - 0.1 mL) subcut TID NS Oxygen Home Use As directed pen needle, diabetic (BD Sia 2nd Gen Pen Needle) 5 times a day terconazole 0.8% 1 appful vaginal BEDTIME 3 days tobramycin-dexamethasone 0.3-0.1 % 1 drp ophthalmic (eye) QID torsemide 20 mg PO BID [wipes As directed] HPI HPI Type 2 DM: Details: Pt is a 7 y/o female who presents today for a dm follow up. She is accompanied today by her daughter. Endo: Initially diagnosed with T2DM in 1999. Was initially started on treatment with Metformin. She reports metformin was stopped due to an issue with her kidney. She also failed Trulicity due to GI distress. Current regimen Jardiance 25 mg, Tradjenta 5 mg PO daily, Toujeo 34 units qHS and Lispro 4 units AC plus a sliding scale. Sliding scale as follows: 200-250 mg per dL to add 2 units 251-300 mg per dL to add 3 units 301-350 mg/dL to add 4 units 351-400 mg per dL to add 5 units Checks sugars 2 times per day. Average sugar: 171 Her A1c today is 8.6. It went up from 7.6 six months ago. She states that she has not made any changes to her diet or her insulin. Her daughter does not like the idea of her being on so many diabetic drugs. Treats lows with juice. Checks sugar after to ensure it is rising. Treats according to rule of 15's. Has her eyes checked yearly, last eye exam needs to make appt . Denies retinopathy. Has neuropathy. On gabapentin. Sees podiatry. Has nephropathy, on losartan and Jardiance . Is followed by nephrology Has HLD, on Atorvastatin 80 mg PO daily. Has CAD. Had diabetes education. She states at this point she does not think she is interested in going back to this. CV: Bp today is 116/56 and she is on amlodipine 10 mg, furosemide 20 mg b.i.d., losartan 25 mg. No chest pain, shortness of breath or palpitations. Cholesterol is managed with atorvastatin 80 mg. Nephro: Follows with Nephrology. She states that she knows to avoid NSAIDs. -she does complain today of frequent UTIs and yeast infections. She state the last 2 months she has struggled with getting yeast infections and UTIs under control. She was last treated a few weeks ago with terconazole and Macrobid. She states a couple times she has even taken Diflucan. She feels like she still has an infection today. She reports some dysuria and increased urinary frequency and urgency. States that her urine has an odor to it as well. No fever, chills, abdominal pain. No nausea or vomiting. She states her symptoms are overall unchanged. She does follow with gynecology and urology. 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 Aortic stenosis CKD (chronic kidney disease) stage 3, GFR 30-59 ml/min Dyslipidemia Diabetic polyneuropathy associated with type 2 diabetes mellitus Diabetic nephropathy associated with type 2 diabetes mellitus Chronic kidney disease Hypertension Asthma Thalamic pain syndrome GERD (gastroesophageal reflux disease) Morbid obesity Surgical History H/O aortic valve replacement History of breast lump/mass excision History of tubal ligation History of cholecystectomy Family History Sister History of renal pelvis cancer Father Suicide Mother Lung disease Diabetes mellitus Social History Household Members: Family Housing: House Do you presently have visiting nurse or other home services: Yes (ward maid) Alcohol intake: never Comment: pt stays with pt. Patient Tobacco Use Status: Former Tobacco user Tobacco use type: Cigarette Years Smoked: 5 years e-Cigarette/Vaping Use: Never Used Second Hand Smoke Exposure: No service: No Current occupational status: unemployed and disabled Gender identity: Female Cognitive needs: Yes Hearing needs: No Vision needs: No Female Reproductive History Menstrual Age of Menarche: 10 Physical Exam Vital Signs: Last Vital Signs Pulse 68 02/21/24 13:05 BP 118/56 L 02/21/24 13:05 BMI result Body Mass Index 41.7 Const Orientation/consciousness: patient oriented x3 Neck Thyroid: Thyroid normal Lymphatic: no lymphadenopathy noted Resp Auscultation: clear to auscultation bilaterally Cardio Rate: regular rate Rhythm: regular rhythm Heart sounds: S1 normal heart sound present and S2 normal heart sound present GI Other: Soft, nontender, no CVA tenderness Skin General skin exam: no rashes or lesions noted Neuro General: patient oriented x3, gait normal and no focal motor deficits Extrem General: Yes normal to inspection, Yes full ROM and Yes capillary refill normal Results AMB Hemoglobin A1c AMB Hemoglobin A1c 8.6 % Last Edit by SEFERINO Morgan on 02/21/24 13:24 Results Reviewed Results Reviewed: Laboratory Last Values Glucose (Clinic) 159 mg/dL (60-115) H 02/21/24 13:14 Hgb A1c (Clinic) 8.6 % (4.0-6.0) H 02/21/24 13:21 Laboratory Tests 10/06/23 12/26/23 01/25/24 10:13 16:16 13:21 Sodium Potassium Chloride Carbon Dioxide Anion Gap BUN Creatinine Estim Creat Clear Calc 30.9 Estimated GFR Hgb A1c (Clinic) 7.6 H Calcium AST ALT NT-Pro-B Natriuret Pep Triglycerides Cholesterol LDL Cholesterol, Calc HDL Cholesterol Urine Creatinine 21.70 Urine Microalbumin 1070.0 Microalb/Creat Ratio 4930.8 H 01/25/24 13:22 Sodium 140 Potassium 4.2 Chloride 103 Carbon Dioxide 27 Anion Gap 14 BUN 31 H Creatinine 1.51 H Estim Creat Clear Calc Estimated GFR 33 Hgb A1c (Clinic) Calcium 9.8 AST 19 ALT 18 NT-Pro-B Natriuret Pep 219 Triglycerides 209 H Cholesterol 200 H LDL Cholesterol, Calc 108 H HDL Cholesterol 51 Urine Creatinine Urine Microalbumin Microalb/Creat Ratio Assessment & Plan Assessment & Plan (1) Uncontrolled type 2 diabetes mellitus with chronic kidney disease, with long-term current use of insulin: Code(s): E11.22 - Type 2 diabetes mellitus with diabetic chronic kidney disease; E11.65 - Type 2 diabetes mellitus with hyperglycemia; Z79.4 - skilled nursing (current) use of insulin Category: Medical Plan: Will discontinue Jardiance and Tradjenta. Will start Mounjaro. We discussed risks and benefits and adverse effects such as nausea, vomiting, increased risk of pancreatitis and thyroid malignancy. I will have her follow-up in 4 weeks to be reassessed. Continue with insulin. Patient understands and agrees with the (2) Diabetic nephropathy associated with type 2 diabetes mellitus: Code(s): E11.21 - Type 2 diabetes mellitus with diabetic nephropathy Category: Medical Plan: d/c Jardiance. Start Mounjaro. avoid nsaids. discussed importance of dm control (3) Diabetic polyneuropathy associated with type 2 diabetes mellitus: Code(s): E11.42 - Type 2 diabetes mellitus with diabetic polyneuropathy Category: Medical Plan: stable, continue gabapentin (4) HLD (hyperlipidemia): Code(s): E78.5 - Hyperlipidemia, unspecified Category: Medical Qualifiers: Hyperlipidemia type: mixed hyperlipidemia Qualified Code(s): E78.2 - Mixed hyperlipidemia Plan: doing well with lipitor. will check lfts and lipids (5) Essential hypertension: Code(s): I10 - Essential (primary) hypertension Category: Medical Plan: well controlled. continue current treatment plan. (6) Recurrent UTI: Code(s): N39.0 - Urinary tract infection, site not specified Category: Medical Plan: UA and culture ordered. Discontinue Jardiance. We will follow up pending those results. Sooner if anything worsens or changes. Orders: Orders Comprehensive [place]. Panel Fast Today Ariana Barksdale PA-C E11.22 - Type 2 diabetes mellitus with diabetic chronic kidney disease, E11.65 - Type 2 diabetes mellitus with hyperglycemia, E78.2 - Mixed hyperlipidemia, Z79.4 - skilled nursing (current) use of insulin Lipid Panel Today Ariana Barksdale PA-C E11.22 - Type 2 diabetes mellitus with diabetic chronic kidney disease, E11.65 - Type 2 diabetes mellitus with hyperglycemia, E78.2 - Mixed hyperlipidemia, Z79.4 - terminal makeup operator (current) use of insulin UA CC w/rflx Micro + Cult Today Ariana Barksdale PA-C E11.22 - Type 2 diabetes mellitus with diabetic chronic kidney disease, E11.65 - Type 2 diabetes mellitus with hyperglycemia, E78.2 - Mixed hyperlipidemia, Z79.4 - terminal makeup operator (current) use of insulin AMB Hemoglobin A1c Today Ariana Barksdale PA-C E11.22 - Type 2 diabetes mellitus with diabetic chronic kidney disease, E11.65 - Type 2 diabetes mellitus with hyperglycemia, Z79.4 - terminal makeup operator (current) use of insulin Thyroid Stimulating Hormone Today Ariana Barksdale PA-C E11.22 - Type 2 diabetes mellitus with diabetic chronic kidney disease, E11.65 - Type 2 diabetes mellitus with hyperglycemia, Z79.4 - terminal makeup operator (current) use of insulin Medications: New tirzepatide (Mounjaro) 2.5 mg (0.5 mL) subcut QWEEK 4 weeks 2 mL 1RF Ariana Barksdale PA-C Changed From insulin glargine U-300 conc (Toujeo SoloStar U-300 Insulin) 32 units (0.1067 mL) subcut DAILY 9 mL 1RF To insulin glargine U-300 conc (Toujeo SoloStar U-300 Insulin) 36 units subcut DAILY Shelby Golden MD Coding Level of Care Code Est Pt Level 4 (32006) Complex EM visit Add On G2211 Diagnoses Uncontrolled type 2 diabetes mellitus with chronic kidney disease, with long- term current use of insulin E11.22; E11.65; Z79.4 Diabetic nephropathy associated with type 2 diabetes mellitus E11.21 Diabetic polyneuropathy associated with type 2 diabetes mellitus E11.42 Mixed hyperlipidemia E78.2 Hyperlipidemia type: mixed hyperlipidemia Essential hypertension I10 Recurrent UTI N39.0
[2024-02-21 13:05] VITALS: BP 118/56; PULSE 68; BMI 41.7
[2024-02-21 13:18] LABS: Glucose, Whole Blood 159 mg/dL (60-115)
== END 2024-02-21 14:03 | disposition home or self-care (01) ==
PROVIDERS: PCP Internal Medicine; Visit Provider Physician Assistant
DX: E11.22 Type 2 diabetes mellitus with diabetic chronic kidney disease (principal); E11.65 Type 2 diabetes mellitus with hyperglycemia; Z79.4 Long term (current) use of insulin; E11.21 Type 2 diabetes mellitus with diabetic nephropathy; E11.42 Type 2 diabetes mellitus with diabetic polyneuropathy; E78.2 Mixed hyperlipidemia; I10 Essential (primary) hypertension; N39.0 Urinary tract infection, site not specified
CPT/HCPCS: 99214; G2211

== ENCOUNTER 2024-02-21 14:32 | Outpatient (AMB) | payer OTHER, SELFPAY ==
[2024-02-21 14:39] VITALS: PULSE 70; O2SAT 98; BMI 41.5
--- NOTE | 2024-02-21 14:39 | MHC.OFFVIS ---
Vital Signs 02/21/24 14:39 Height 4 ft 9 in Weight 192 lb BMI 41.5 Pulse 70 Pulse Source Pulse Oximeter Pulse Oximetry (%) 98 Oxygen Delivery Method Room Air Intake Visit Reasons: Obstructive sleep apnea follow-up Director Economic Required: No Allergies ibuprofen [From Motrin] Allergy (Intermediate, Verified 02/21/24 14:40) High Blood Pressure, Rash oxycodone [From Percocet] Allergy (Intermediate, Verified 02/21/24 14:40) Itching HPI Comments Details: The patient is a 78-year-old woman with a known history of asthma, severe aortic stenosis and morbid obesity who was admitted to the hospital the end of January with severe COVID-19 and acute respiratory failure. The patient had bilateral airspace disease the due to COVID. Course was complicated by renal failure requiring dialysis and anemia requiring blood transfusions. The patient recovered from a very serious case of COVID. She still complaining of shortness of breath specially with activity moderate in severity. She has significant aches and pains throughout her body. Moderate in severity. The patient also has significant fatigue and daytime drowsiness. She does have significant snoring noted by her daughter. Her Davenport score is elevated 16/24. At this point the patient needs to undergo a sleep study. Will make arrangements for her to do so. In the meantime for her asthma she does have 1 inhaler. She does not know the name. She does not take it daily. The patient does need to be on maintenance inhaler this time. In the meantime the patient does have a severe aortic stenosis. She was supposed to have a surgical evaluation. But, then she became sick and was not able to follow through. Patient is concerned open heart surgery. She is wondering if any other alternatives such as the endovascular approach be an option for her specially with her worsening medical conditions. 10/31/2022 the patient is here for a pulmonary follow-up visit. The patient overall has been feeling better. She was evaluated over the phone back in July because about worsening exacerbation. She completed her medications and she is back to baseline. She is feeling better. She is not using the oxygen. Although wait and see a little bit more to make sure that she does not go back to using it. The patient has been on the inhalers with good effect. The of the a form although, she is having hard time with the powder inhalers is causing significant irritation of the mouth so therefore will stop the Trelegy and placed on Symbicort be more effective. Also to note the patient was admitted briefly to [facility] after developing hemorrhagic colitis and ultimately got better with antibiotics. 02/21/2024 the patient is here for a pulmonary follow-up visit. She has doing a lot better. She has not had to use the oxygen so therefore will discontinue it. She continues on respiratory therapy with good effect. Still getting winded. Also complaining of back pain. Also gets some sciatica discomfort that limits her activity. She does use a cane and also walker when she is little more stable on her feet. The patient otherwise is without any other complaints. Will have her get a chest x-ray. We did look at her CT scan of the chest that she had back in April 2023 which she was significantly sick. She had bilateral ground-glass opacities suggesting an ARDS picture. On examination she still has some minimal crackles at the bases suggesting some degree of scarring. If the chest x-ray is abnormal will go ahead and request a CT scan of the chest. If the patient continues to be symptomatic and the x-ray is nondiagnostic we may also consider getting a CT scan of the chest. 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 Aortic stenosis CKD (chronic kidney disease) stage 3, GFR 30-59 ml/min Dyslipidemia Diabetic polyneuropathy associated with type 2 diabetes mellitus Diabetic nephropathy associated with type 2 diabetes mellitus Chronic kidney disease Hypertension Asthma Thalamic pain syndrome GERD (gastroesophageal reflux disease) Morbid obesity Surgical History H/O aortic valve replacement History of breast lump/mass excision History of tubal ligation History of cholecystectomy Family History Sister History of renal pelvis cancer Father Suicide Mother Lung disease Diabetes mellitus Social History Household Members: Family Housing: House Do you presently have visiting nurse or other home services: Yes (supervisor shipping) Alcohol intake: never Comment: pt stays with pt. Patient Tobacco Use Status: Former Tobacco user Tobacco use type: Cigarette Years Smoked: 5 years e-Cigarette/Vaping Use: Never Used Second Hand Smoke Exposure: No service: No Current occupational status: unemployed and disabled Gender identity: Female Cognitive needs: Yes Hearing needs: No Vision needs: No Female Reproductive History Menstrual Age of Menarche: 10 Review of Systems Const Reports fatigue and Denies night sweats ENT Denies change in voice, Denies lip swelling, Denies mouth pain, Reports nasal congestion, Reports nasal discharge, Reports neck pain, Reports sore throat and Denies tongue swelling Card Denies chest pain and Reports dyspnea on exertion Resp Denies chest congestion, Reports cough and Reports dyspnea on exertion GI Denies abdominal pain Reports no additional complaints Musc Reports back pain, Reports myalgias, Reports arthralgias, Reports joint swelling, Reports limited range of motion and Reports neck pain Neuro Denies Neuro-related abnormal movements Psych Denies no additional complaints Endo Reports fatigue Luis Antonio/Lymph Denies easy bleeding and Denies lymphadenopathy Aller/Immun Denies lip swelling and Denies tongue swelling Physical Exam Vital Signs: Last Vital Signs Pulse 70 02/21/24 14:39 Pulse Ox 98 02/21/24 14:39 Oxygen Delivery Method Room Air 02/21/24 14:39 BMI result Body Mass Index 41.5 Last Vital Signs Temp 98 F 04/17/23 12:00 Pulse 64 04/17/23 12:00 Resp 19 04/17/23 12:00 BP 134/67 04/17/23 12:00 Pulse Ox 93 04/17/23 12:00 O2 Del Method Oxymask 04/17/23 12:00 O2 Flow Rate 2.5 04/17/23 12:00 Oxygen Flow Rate 10 04/16/23 12:39 BMI result Body Mass Index 43.7 Const General: comfortable Orientation/consciousness: patient oriented x3 Neck Neck: Yes normal visual inspection, Yes full ROM and Yes no lymphadenopathy Chest Chest palpation & inspection: normal inspection of the chest Resp Effort & Inspection: able to speak in complete sentences Auscultation: diminished lung sounds Cardio Rate: regular rate Rhythm: regular rhythm Heart sounds: S1 normal heart sound present, S2 normal heart sound present and Murmur heart sound present GI Palpation (GI): Soft to palpation and nontender Auscultation: normal bowel sounds Skin General skin exam: rashes and/or lesions noted Neuro General: patient oriented x3 Results AMB Hemoglobin A1c AMB Hemoglobin A1c 8.6 % Last Edit by SEFERINO Morgan on 02/21/24 13:24 Assessment & Plan Assessment & Plan (1) JOSE (obstructive sleep apnea): Code(s): G47.33 - Obstructive sleep apnea (adult) (pediatric) Category: Medical (2) Asthma: Code(s): J45.909 - Unspecified asthma, uncomplicated Category: Medical Qualifiers: Asthma complication type: uncomplicated Asthma persistence: persistent Asthma severity: moderate Qualified Code(s): J45.40 - Moderate persistent asthma, uncomplicated (3) Aortic stenosis: Code(s): I35.0 - Nonrheumatic aortic (valve) stenosis Category: Medical Qualifiers: Cardiac valve disease etiology: nonrheumatic Qualified Code(s): I35.0 - Nonrheumatic aortic (valve) stenosis (4) Dyspnea: Code(s): R06.00 - Dyspnea, unspecified Category: Medical Qualifiers: Dyspnea type: dyspnea on exertion Qualified Code(s): R06.09 - Other forms of dyspnea (5) Back pain: Code(s): M54.9 - Dorsalgia, unspecified Category: Medical Qualifiers: Back pain location: low back pain Plan continue Symbicort discontinue oxygen Short-acting beta agonist as needed CXR F/U 8-10 months Orders: Orders XR chest 2V Today M54.9 - Dorsalgia, unspecified, R06.09 - Other forms of dyspnea Coding Level of Care Code Tele Est Pt Level 4 (62899) Diagnoses JOSE (obstructive sleep apnea) G47.33 Moderate persistent asthma without complication J45.40 Asthma complication type: uncomplicated Asthma persistence: persistent Asthma severity: moderate Nonrheumatic aortic valve stenosis I35.0 Cardiac valve disease etiology: nonrheumatic Dyspnea on exertion R06.09 Dyspnea type: dyspnea on exertion Back pain M54.9 Back pain location: low back pain Time Spent (min) 16
== END 2024-02-21 14:54 | disposition home or self-care (01) ==
PROVIDERS: PCP Internal Medicine; Visit Provider Hospitalist
DX: J45.40 Moderate persistent asthma, uncomplicated (principal); G47.33 Obstructive sleep apnea (adult) (pediatric); I35.0 Nonrheumatic aortic (valve) stenosis; M54.9 Dorsalgia, unspecified
CPT/HCPCS: 99214

== ENCOUNTER 2024-02-21 14:55 | Outpatient (REF) | payer OTHER, SELFPAY ==
--- NOTE | ~2024-02-21 | XR_ITS ---
EXAMINATION: XR CHEST CLINICAL INFORMATION: Other forms of dyspnea. COMPARISON: 08/02/2023, CT chest 04/16/2023. TECHNIQUE: 2 views of the chest were obtained. FINDINGS: There is no gross pneumothorax. Dextroscoliosis of the thoracolumbar spine with multilevel degenerative changes. Heart size is normal. Degenerative changes in the thoracic spine. Redemonstration of ascending aortic stent graft. Aortic calcifications. No new focal consolidation to suggest pneumonia. No pleural effusion. XR/XR chest 2V IMPRESSION: 1. No evidence of pneumonia. 2. Redemonstration of ascending aortic stent graft.
== END 2024-02-21 14:56 | disposition home or self-care (01) ==
LOC: HO.XRAY 14:55
PROVIDERS: PCP Internal Medicine; Visit Provider Hospitalist
DX: R06.09 Other forms of dyspnea (principal); M54.9 Dorsalgia, unspecified
CPT/HCPCS: 71046

== ENCOUNTER 2024-02-29 10:22 | Outpatient (REF) | payer OTHER, SELFPAY ==
--- NOTE | ~2024-02-29 | US_ITS ---
EXAMINATION: US RETROPERITONEAL COMPLETE (RENAL) CLINICAL INFORMATION: Urge incontinence. COMPARISON: MR abdomen 01/07/2023, CT abdomen and pelvis 07/01/2022. TECHNIQUE: Real-time imaging of the kidneys and bladder. FINDINGS: RIGHT KIDNEY: 10.9 x 3.9 x 5.0 cm (SAG x AP x TRV). The kidney is normal in size, contour, and echogenicity. Renal cortical thickness is normal. There is a lower pole 6 mm echogenic focus seen consistent with a nonobstructing calculus. No hydronephrosis. A benign 2.4 cm lower pole Bosniak class I renal cyst is noted along with multiple other smaller cysts. These require no additional imaging or follow up. No solid renal masses are seen. LEFT KIDNEY: 11.1 x 4.4 x 4.8 cm (SAG x AP x TRV). The kidney is normal in size, contour, and echogenicity. Renal cortical thickness is normal. Single punctate 3 mm nonobstructing calculus seen at the lower pole. No other calculi or focal parenchymal lesions. No hydronephrosis. BLADDER: Well distended and normal. Bilateral ureteral jets are not demonstrated. Prevoid bladder volume is 427 mL. Postvoid bladder volume is 34 mL. US/US retroperitoneal comp IMPRESSION: 1. Bilateral nonobstructing renal calculi. 2. Benign Bosniak class I right renal cysts need no further imaging or follow up.
== END 2024-02-29 10:23 | disposition home or self-care (01) ==
LOC: HO.US 10:22
PROVIDERS: PCP Internal Medicine; Visit Provider Nurse Practitioner Family
DX: N39.41 Urge incontinence (principal); N28.1 Cyst of kidney, acquired
CPT/HCPCS: 76770

== ENCOUNTER 2024-03-10 13:34 | Outpatient (REF) | payer OTHER, SELFPAY ==
[2024-03-10 17:13] LABS: Bacterial Vaginosis PCR NEGATIVE (Negative); Candida Group PCR NOT DETECTED (Not Detect); Candida glab krusei PCR DETECTED (Not Detect); Trichomonas vaginalis PCR NOT DETECTED (Not Detect)
== END 2024-03-10 13:35 | disposition home or self-care (01) ==
LOC: HO.LNP 13:34
PROVIDERS: PCP Internal Medicine; Visit Provider Advanced Practice Midwife
DX: Z01.419 Encounter for gynecological examination (general) (routine) without abnormal findings (principal); N89.8 Other specified noninflammatory disorders of vagina
CPT/HCPCS: 0352U

== ENCOUNTER 2024-03-10 13:34 | Outpatient (AMB) | payer OTHER, SELFPAY ==
--- NOTE | 2024-03-10 13:42 | A.OFFVIS_ITS ---
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 annual exam/30 mins Education And Training Manager Required: Yes Education And Training Manager Language: Thermal Intelligence Analyst Name: Shelly GENTILE Information Interpreted: non-clinical & clinical Replenishment Buyer: Replenishment Buyer Present (Shelly GENTILE) Accompanied by: Employee Allergies ibuprofen [From Motrin] Allergy (Intermediate, Verified 03/10/24 13:49) High Blood Pressure, Rash oxycodone [From Percocet] Allergy (Intermediate, Verified 03/10/24 13:49) Itching Post menopausal: Yes HPI Comments Details: She is a postmenopausal woman presenting for her annual puller machine examination, presents with her SPLITTING MACHINE OPERATOR HELPER Vero Castañeda. She is doing well with no concerns: itching externally. Attempting to eat a healthy diet with calcium and vitamin D, no regular exercise. On new meds for D, reports loose stools. Currently sexually active, has dryness, not using any products. Last mammogram; pending read. Colonoscopy is UTD. Denies any family history of breast, ovarian or colon cancer. 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 Aortic stenosis CKD (chronic kidney disease) stage 3, GFR 30-59 ml/min Dyslipidemia Diabetic polyneuropathy associated with type 2 diabetes mellitus Diabetic nephropathy associated with type 2 diabetes mellitus Chronic kidney disease Hypertension Asthma Thalamic pain syndrome GERD (gastroesophageal reflux disease) Morbid obesity Surgical History H/O aortic valve replacement History of breast lump/mass excision History of tubal ligation History of cholecystectomy Family History Sister History of renal pelvis cancer Father Suicide Mother Lung disease Diabetes mellitus Social History Household Members: Family Housing: House Do you presently have visiting nurse or other home services: Yes (canary breeder) Alcohol intake: never Comment: pt stays with pt. Patient Tobacco Use Status: Former Tobacco user Tobacco use type: Cigarette Years Smoked: 5 years e-Cigarette/Vaping Use: Never Used Second Hand Smoke Exposure: No service: No Current occupational status: unemployed and disabled Gender identity: Female Cognitive needs: Yes Hearing needs: No Vision needs: No Female Reproductive History Menstrual Age of Menarche: 10 Menopause type: natural Date of Mammogram: 02/14/24 Review of Systems Const All systems reviewed & are unremarkable except as noted in HPI and below Reports as per HPI Eyes Reports no additional complaints ENT Reports no additional complaints Card Reports no additional complaints Resp Reports no additional complaints GI Reports as per HPI and Reports no additional complaints Reports as per HPI Musc Reports no additional complaints Skin/Breast Reports as per HPI Neuro Reports no additional complaints Psych Reports no additional complaints Endo Reports no additional complaints Luis Antonio/Lymph Reports no additional complaints Aller/Immun Reports no additional complaints Physical Exam Vital Signs: Last Vital Signs BP 118/74 03/10/24 13:48 BMI result Body Mass Index 41.1 Const General: cooperative, healthy appearing, no acute distress, well developed and alert Orientation/consciousness: patient oriented x3 HEENT Head: Yes normal to inspection Eyes General: appearance normal, both eyes and all related structures Neck Neck: Yes normal visual inspection Thyroid: Thyroid normal Chest Chest palpation & inspection: normal inspection of the chest and other (no puckering, dimpling, peau de orange, retraction, discharge, masses) Breast/axilla inspection: normal inspection of the breasts Breast/axilla palpation: normal palpation of the breasts Resp Effort & Inspection: normal respiratory effort GI Inspection: Yes normal to inspection, Yes obesity and Yes scar Palpation (GI): Soft to palpation Rectal Exam - Female: deferred General: Yes bladder normal to palpation External Female Exam: normal external appearance and normal appearance of the urethra Speculum Exam - Vagina: normal appearance of the vagina, normal palpation, normal vaginal discharge, vagina atrophic and other (Tear on the left labia, clean, noninfected) Speculum Exam - Cervix: normal appearance of the cervix and normal palpation Bimanual exam- vagina & uterus: normal bimanual exam, normal palpation, uterine size normal, bladder normal to palpation, normal palpation and non-tender Bimanual Exam- Adnexa, other: no masses Skin General skin exam: no rashes or lesions noted Rashes: no rashes Neuro General: patient oriented x3 Cognition (Neuro): normal cognition Extrem General: Yes normal to inspection Psych Attitude: cooperative Thought process: Normal thought process present Assessment & Plan Assessment & Plan (1) Encounter for well woman exam with routine gynecological exam: Code(s): Z01.419 - Encounter for gynecological examination (general) (routine) without abnormal findings Category: Medical Plan: Discussed: Current recommendations for pap smears per ASCCP guidelines. Breast awareness, periodic self breast exams and yearly mammogram. Maintain a healthy lifestyle, well balanced diet including Calcium 1,200 mg and Vitamin D 800 IU daily, and routine exercise. SPLITTING MACHINE OPERATOR HELPER thinks that the vaginal tear was due to excessive cleaning. Instructions: Clean with warm water, no soaps, scented products. Use a cool cloth to the area several times a day if swollen and/or uncomfortable. Wear loose, cotton underclothes, avoid tight outer clothing. Air when possible. No coitus until well healed. Await final pending results for any changes in the plan of care. Replens moisturizer and lubricate. Return to the office p.r.n. Call with any postmenopausal bleeding for further evaluation in the office. Patient verbalizes understanding and agrees to the plan of care. She was given opportunity to ask questions and all questions were answered to the best of my a bility. RTO in 1 year for annual puller machine exam. This note is constructed using voice recognition software. While every effort has been made to ensure accuracy, hydro station operator errors may have been included. Coding Level of Care Code Est Pt Prev Care >65y(77221) Diagnoses Encounter for well woman exam with routine gynecological exam Z01.419
[2024-03-10 13:48] VITALS: BP 118/74; BMI 41.1
== END 2024-03-10 14:17 | disposition home or self-care (01) ==
PROVIDERS: PCP Internal Medicine; Visit Provider Advanced Practice Midwife
DX: Z01.419 Encounter for gynecological examination (general) (routine) without abnormal findings (principal)
CPT/HCPCS: 99397

== ENCOUNTER 2024-03-20 08:44 | Outpatient (REF) | payer OTHER, SELFPAY ==
[2024-03-20 11:05] LABS: Appearance Urine Clear; Color Urine Yellow; Glucose Urine UA 100 mg/dL (Negative); Leukocyte Esterase Urine Small (1+) (Negative); Nitrite Urine Negative (Negative); Specific Gravity - Urine 1.015 (1.005-1.025); UMIC TRIGGER UACC YES; Urine Blood Negative (Negative); Urine Ketones Negative (Negative); Urine Protein 300 (3+) mg/dL (Neg-Trace)
[2024-03-20 11:08] LABS: Bacteria Urine None Seen (None Seen); Hyaline Casts Urine 0-2 /LPF (0-2); RBC Urine 0-2 /HPF (0-2); UACC Culture Trigger YES
== END 2024-03-20 08:45 | disposition home or self-care (01) ==
LOC: HO.LAB 08:44
PROVIDERS: Absent Provider Internal Medicine; PCP Internal Medicine; Visit Provider Physician Assistant
DX: E11.65 Type 2 diabetes mellitus with hyperglycemia (principal); E11.22 Type 2 diabetes mellitus with diabetic chronic kidney disease; Z79.4 Long term (current) use of insulin; E78.2 Mixed hyperlipidemia
CPT/HCPCS: 81001; 81003; 87086

== ENCOUNTER 2024-03-24 10:33 | Outpatient (AMB) | payer OTHER, SELFPAY ==
--- NOTE | 2024-03-24 08:48 | A.OFFVIS_ITS ---
Vital Signs 03/24/24 10:37 Height 4 ft 9 in Weight 191 lb 12.835 oz BMI 41.5 BP 132/56 L Blood Pressure Location Lt brachial Position Sitting Pulse 72 Pulse Source Pulse Oximeter Intake Visit Reasons: Type 2 DM/confirmed Intake Note: Patient present today to follow up on Type 2 Diabetes Mellitus. Last Diabetic Eye exam: 03/2024 Last Podiatry Visit: 03/2024 Random Glucose: 158 mg/dl HgA1C: 8.6% 02/21/2024 Cda Teacher Required: Yes Cda Teacher Language: Hog Driver Name: Christos Information Interpreted: non-clinical & clinical Accompanied by: Self / Same As Patient Allergies ibuprofen [From Motrin] Allergy (Intermediate, Verified 03/24/24 10:46) High Blood Pressure, Rash oxycodone [From Percocet] Allergy (Intermediate, Verified 03/24/24 10:46) Itching Medication List - Last Reconciled 03/24/24 by Ariana Barksdale PA-C amlodipine 10 mg PO DAILY aspirin 81 mg PO BEDTIME atorvastatin 80 mg PO BEDTIME 90 days blood pressure monitor As directed blood sugar diagnostic (FreeStyle Lite Strips) 3times a day blood-glucose meter (FreeStyle Covina Lite kit) As directed budesonide-formoterol 160-4.5 mcg/actuation (Symbicort) 2 puffs inhalation BID 30 days calcium acetate(phosphat bind) 667 mg PO BID 90 days cholecalciferol (vitamin D3) 25 mcg PO DAILY 90 days clotrimazole-betamethasone 1-0.05 % 1 appl topical BID 5 days disposable gloves As directed ferrous sulfate 325 mg PO .once a week 90 days fluticasone propionate 50 mcg/actuation 1 spray intranasal DAILY PRN folic acid 1 mg PO QAM 90 days FreeStyle Lancets (lancets) 3 times a day NS gabapentin 300 mg PO BEDTIME 90 days hydralazine 25 mg PO TID 90 days [incomtinemce liner pads As directed] insulin glargine U-300 conc (Toujeo SoloStar U-300 Insulin) 36 units subcut DAILY ipratropium-albuterol 0.5 mg-3 mg(2.5 mg base)/3 mL 3 mL inhalation RQ4H WHILE AWAKE lancets (TRUEplus Lancets) As directed test 4 times a day losartan 25 mg PO DAILY 90 days montelukast 10 mg PO QPM 90 days Novolog FlexPen U-100 Insulin (insulin aspart U-100) 5 - 10 units (0.05 - 0.1 mL) subcut TID NS Oxygen Home Use As directed pen needle, diabetic (BD Sia 2nd Gen Pen Needle) 5 times a day terconazole 0.8% 1 appful vaginal BEDTIME 3 days tirzepatide (Mounjaro) 2.5 mg (0.5 mL) subcut QWEEK 4 weeks tobramycin-dexamethasone 0.3-0.1 % 1 drp ophthalmic (eye) QID torsemide 20 mg PO BID [wipes As directed] HPI HPI Type 2 DM/confirmed: Details: Type 2 DM: Details: Pt is a 7 y/o female who presents today for a dm follow up. She is accompanied today by her daughter who translates today. Appropriate paperwork signed filled. Endo: Initially diagnosed with T2DM in 1999. Was initially started on treatment with Metformin. She reports metformin was stopped due to an issue with her kidney. She also failed Trulicity due to GI distress. I discontinue Jardiance due to frequent UTIs and yeast infections. Current regimen: Mounjaro 2.5 mg, Toujeo 34 units qHS and Lispro 4 units AC plus a sliding scale. Sliding scale as follows: 200-250 mg per dL to add 2 units 251-300 mg per dL to add 3 units 301-350 mg/dL to add 4 units 351-400 mg per dL to add 5 units Checks sugars 2 times per day. Average sugar: 171 Her A1c today is 8.6. It went up from 7.6 six months ago. She states since adjusting her medication and 30 monitor her blood sugars have been a lot lower. Her blood sugar this morning was 130. At our last visit at a discontinue the Jardiance and Tradjenta. They did not like the idea of taking this many medications and she was getting frequent UTI/yeast infections. Treats lows with juice. Checks sugar after to ensure it is rising. Treats according to rule of 15's. Has her eyes checked yearly, last eye exam needs to make appt . Denies retinopathy. Has neuropathy. On gabapentin. Sees podiatry. Has nephropathy, on losartan . Is followed by nephrology Has HLD, on Atorvastatin 80 mg PO daily. Has CAD. Had diabetes education. She states at this point she does not think she is interested in going back to this. CV: Bp today is 132/56 and she is on amlodipine 10 mg, furosemide 20 mg b.i.d., losartan 25 mg. No chest pain, shortness of breath or palpitations. Cholesterol is managed with atorvastatin 80 mg. Nephro: Follows with Nephrology. She states that she knows to avoid NSAIDs. Last kidney function did appear to worsen. 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 Aortic stenosis CKD (chronic kidney disease) stage 3, GFR 30-59 ml/min Dyslipidemia Diabetic polyneuropathy associated with type 2 diabetes mellitus Diabetic nephropathy associated with type 2 diabetes mellitus Chronic kidney disease Hypertension Asthma Thalamic pain syndrome GERD (gastroesophageal reflux disease) Morbid obesity Surgical History H/O aortic valve replacement History of breast lump/mass excision History of tubal ligation History of cholecystectomy Family History Sister History of renal pelvis cancer Father Suicide Mother Lung disease Diabetes mellitus Social History Household Members: Family Housing: House Do you presently have visiting nurse or other home services: Yes (media planner / buyer) Alcohol intake: never Comment: pt stays with pt. Patient Tobacco Use Status: Former Tobacco user Tobacco use type: Cigarette Years Smoked: 5 years e-Cigarette/Vaping Use: Never Used Second Hand Smoke Exposure: No service: No Current occupational status: unemployed and disabled Gender identity: Female Cognitive needs: Yes Hearing needs: No Vision needs: No Female Reproductive History Menstrual Age of Menarche: 10 Results Reviewed Results Reviewed: Laboratory Tests 02/21/24 02/21/24 02/21/24 13:14 13:21 14:26 Sodium 143 Potassium 3.5 Chloride 102 Carbon Dioxide 28 Anion Gap 17 BUN 40 H Creatinine 1.68 H Estimated GFR 29 Glucose (Clinic) 159 H Hgb A1c (Clinic) 8.6 H AST 18 ALT 15 Triglycerides 194 H Cholesterol 186 LDL Cholesterol, Calc 97 HDL Cholesterol 51 [facility] [address] [place] [address] Mammography Report Signed Patient: Louis Montes MR#: [id number] : 1945 Acct:[id number] Age/Sex: 77 / F ADM Date: 02/26/23 Loc: HO.MAMMO Attending Dr: Shelby Golden MD Ordering Physician: Shebly Spence MD Results: Date of Service: 02/26/23 EXAMINATION: BONE DENSITOMETRY CLINICAL INDICATION: Unspecified menopausal and perimenopausal disorder. COMPARISON: Previous BD dated 04/23/2020 and baseline BD dated 10/21/2007. TECHNIQUE: Using a [employer]knot DXA System (software version: 13.1) manufactured by [employer], dual-energy x-ray absorptiometry was performed of the lumbar spine and left hip. The images are of good technical quality. Summary results are attached. FINDINGS: AP SPINE L1-L4: Current: BMD 1.188 g/cm2, Z-score 0.9, T-score 0.1, normal, 3.8% increase from previous, 18.0% increase from baseline (<5% change is not significant). Prior: BMD 1.144 g/cm2. Baseline: BMD 1.007 g/cm2. LEFT FEMUR, NECK: Current: BMD 0.771 g/cm2, Z-score -0.5, T-score -1.9, osteopenia. Prior: BMD 0.933 g/cm2. Baseline: BMD 0.989 g/cm2. LEFT FEMUR, TOTAL: Current: BMD 0.901 g/cm2, Z-score 0.4, T-score -0.8, normal, 18.7% decrease from previous, 26.7% decrease from baseline (<5% change is not significant). Prior: BMD 1.108 g/cm2. Baseline: BMD 1.229 g/cm2. IDENTIFIED RISK FACTORS: Anticonvulsant, menopause, renal. HISTORY OF FRACTURE: None listed. MEDICATIONS: Vitamin D. MM/XR DEXA axial skeleton IMPRESSION: 1. DIAGNOSIS: Osteopenia based on the lowest T-score value of -1.9 in the femoral neck applying World Health Organization criteria. Assessment & Plan Assessment & Plan (1) Uncontrolled type 2 diabetes mellitus with chronic kidney disease, with long-term current use of insulin: Code(s): E11.22 - Type 2 diabetes mellitus with diabetic chronic kidney disease; E11.65 - Type 2 diabetes mellitus with hyperglycemia; Z79.4 - care home (current) use of insulin Category: Medical Plan: Will continue current regimen. She is tolerating this. Will follow-up in 3 months and recheck labs at that time. (2) CKD stage 3b, GFR 30-44 ml/min: Code(s): N18.32 - Chronic kidney disease, stage 3b Category: Medical Plan: Reviewed that the kidney function did worsen slightly. We will recheck labs. (3) Elevated alkaline phosphatase level: Code(s): R74.8 - Abnormal levels of other serum enzymes Category: Medical Plan: Labs ordered. Will follow up pending test results. Has had a history of this and it does appear to be trending up. (4) Essential hypertension: Code(s): I10 - Essential (primary) hypertension Category: Medical Plan: WNL. Continue current regimen Orders: Orders TSH reflex Free T4 Today I10 - Essential (primary) hypertension, N18.32 - Chronic kidney disease, stage 3b, R74.8 - Abnormal levels of other serum enzymes Comprehensive Umbarger. Panel Fast Today I10 - Essential (primary) hypertension, N18.32 - Chronic kidney disease, stage 3b, R74.8 - Abnormal levels of other serum enzymes Gamma Glutamyl Transpeptidase Today I10 - Essential (primary) hypertension, N18.32 - Chronic kidney disease, stage 3b, R74.8 - Abnormal levels of other serum enzymes Vitamin D 1,25 dihydroxy Today I10 - Essential (primary) hypertension, N18.32 - Chronic kidney disease, stage 3b, R74.8 - Abnormal levels of other serum enzymes Parathyroid Hormone Intact Today I10 - Essential (primary) hypertension, N18.32 - Chronic kidney disease, stage 3b, R74.8 - Abnormal levels of other serum enzymes Coding Level of Care Code Est Pt Level 4 (49311) Complex EM visit Add On G2211 Diagnoses Uncontrolled type 2 diabetes mellitus with chronic kidney disease, with long-t erm current use of insulin E11.22; E11.65; Z79.4 CKD stage 3b, GFR 30-44 ml/min N18.32 Elevated alkaline phosphatase level R74.8 Essential hypertension I10
[2024-03-24 10:37] VITALS: BP 132/56; PULSE 72; BMI 41.5
[2024-03-24 10:52] LABS: Glucose, Whole Blood 158 mg/dL (60-115)
== END 2024-03-24 11:16 | disposition home or self-care (01) ==
PROVIDERS: PCP Internal Medicine; Visit Provider Physician Assistant
DX: E11.22 Type 2 diabetes mellitus with diabetic chronic kidney disease (principal); E11.65 Type 2 diabetes mellitus with hyperglycemia; Z79.4 Long term (current) use of insulin; N18.32 Chronic kidney disease, stage 3b; R74.8 Abnormal levels of other serum enzymes; I10 Essential (primary) hypertension
CPT/HCPCS: 99214; G2211

== ENCOUNTER 2024-03-24 10:33 | Outpatient (REF) | payer OTHER, SELFPAY ==
[2024-03-24 12:45] LABS: Appearance Urine Clear; Color Urine Yellow; Glucose Urine UA Negative (Negative); Leukocyte Esterase Urine Trace (Negative); Nitrite Urine Negative (Negative); PH 5.5 (5.0-9.0); UMIC TRIGGER UACC YES; Urine Blood Negative (Negative); Urine Ketones Negative (Negative); Urine Protein 100 (2+) mg/dL (Neg-Trace)
[2024-03-24 12:48] LABS: Bacteria Urine None Seen (None Seen); RBC Urine 0-2 /HPF (0-2); Squamous Epithelial Cell Urine 0-2 /HPF (0-2); WBC Urine 0-5 /HPF (0-5)
[2024-03-24 13:38] LABS: Parathyroid Hormone Intact 91.9 pg/mL (8.7-77.1)
[2024-03-24 13:40] LABS: Alanine Aminotransferase 18 U/L (0-31); Albumin Level 3.3 g/dL (3.5-5.0); Alkaline Phosphatase 148 U/L (39-117); Anion Gap 12 (12-20); Aspartate Amino Transferase 21 U/L (5-31); Bilirubin Total 0.4 mg/dL (0.0-1.0); Blood Urea Nitrogen 28 mg/dL (9-16); Calcium 9.9 mg/dL (8.4-10.2); Carbon Dioxide 30 mmol/L (22-29); Chloride 107 mmol/L (96-108); Estimated Glomerular Filt Rate 36; Gamma Glutamyl Transpeptidase 26 U/L (7-33); Glucose Fasting 147 mg/dL (60-99); Potassium 4.4 mmol/L (3.3-5.1); Sodium 145 mmol/L (135-145); Total Protein 7.1 g/dL (6.5-8.0)
[2024-03-24 13:59] LABS: TSH reflex Free T4 1.82 uIU/mL (0.32-4.0)
[2024-03-29 16:43] LABS: VITAMIN D (1,25 OH) D3 <8 pg/mL; Vit D (1,25-Dihydroxy) Total 21 pg/mL (18-72); Vitamin D (1,25 OH) D2 21 pg/mL
== END 2024-03-24 10:34 | disposition home or self-care (01) ==
LOC: HO.LAB 10:33
PROVIDERS: PCP Internal Medicine; Visit Provider Physician Assistant
DX: E11.22 Type 2 diabetes mellitus with diabetic chronic kidney disease (principal); E11.65 Type 2 diabetes mellitus with hyperglycemia; I12.9 Hypertensive chronic kidney disease with stage 1 through stage 4 chronic kidney disease, or unspecified chronic kidney disease; N18.32 Chronic kidney disease, stage 3b; R74.8 Abnormal levels of other serum enzymes; Z79.4 Long term (current) use of insulin
CPT/HCPCS: 36415; 80053; 81001; 82652; 82947; 82977; 83970; 84443; 99212

== ENCOUNTER 2024-04-11 12:06 | Outpatient (AMB) | payer OTHER, SELFPAY ==
--- OUTSIDE RECORDS SUMMARY | 2024-04-11 12:08 | XMS_ITS | Continuity of Care Document ---
Author Organization [facility] ter Address [address] [place] [id number]- Care Team Providers Care Atm Servicer Name Role Phone Preston VORA, Daniel Garcia Primary Care Physi will Encounter [facility] Date(s): 06/12/22 - 09/02/[address] [id number] Attending Physician: Tera Sutherland MD Admitting Physician: Tera Sutherland MD Referring Physician: Marycarmen Quijano MD Allergies, Adverse Reactions, Alerts Substance Reaction Severity Status Motrin High BP Active Percocet 7.5/325 hallucinations Active Immunizations Given and Recorded Vaccine Date Status Refusal Reason influenza virus vaccine, inactivated 07/20/22 Gorge rded influenza virus vaccine, inactivated 09/19/18 Gorge rded influenza virus vaccine, inactivated 07/12/17 Gorge rded influenza virus vaccine, inactivated 09/16/16 Gorge rded influenza virus vaccine, inactivated 07/15/15 Gorge rded influenza virus vaccine, inactivated 07/12/14 Gorge rded influenza virus vaccine, inactivated 05/25/11 Gorge rded hepatitis B adult vaccine 04/08/17 Recorded hepatitis B adult vaccine 06/03/16 Recorded hepatitis B adult vaccine 04/03/14 Recorded pneumococcal 23-valent vaccine 06/03/16 Recorded pneumococcal 23-valent vaccine 06/30/00 Recorded Zoster Vaccine Live 07/15/15 Recorded pneumococcal 13-valent vaccine 07/15/15 Recorded tetanus/diphtheria/pertussis, acel(Tdap) 11/27/13 Recorded tetanus-diphtheria toxoids (Td) 06/08/97 Recorded Medications amLODIPine 10 mg oral tablet 1 tablet = 10 mg, By Mouth, Daily, # 30 tablet, 0 Refills, Maintenance, 07/30/22 18:19:00 EDT, Tablet, Partial fill upon patient request if the prescription is for a schedule II opioid drug. Start Date: 07/30/22 Status: Ordered aspirin 81 mg oral delayed release tablet 81 mg, 1, tablet, By Mouth, Daily, # 30 tablet, Refills 0, Maintenance, 06/23/18 7:02:48 EDT Start Date: 06/23/18 Status: Ordered atorvastatin 40 mg oral tablet 1 tablet = 40 mg, By Mouth, Daily, # 30 tablet, 0 Refills, Maintenance, 05/20/20 7:24:00 EDT, Tablet Start Date: 05/20/20 Status: Ordered brimonidine 0.2% ophthalmic solution 1 drops, Eyes, Both, 2 times a day, 0 Refills, Maintenance, 07/30/22 18:24:00 EDT, Partial fill upon patient request if the prescription is for a schedule II opioid drug. Start Date: 07/30/22 Status: Ordered carvedilol 25 mg oral tablet 25 mg, 1, tablet, By Mouth, 2 times a day, # 180 tablet, Refills 0, Maintenance, 07/30/22 18:19:00 EDT, Partial fill upon patient request if the prescription is for a schedule II opioid drug. Start Date: 07/30/22 Status: Ordered cetirizine 5 mg oral tablet 1 tablet = 5 mg, By Mouth, Daily, # 30 tablet, 0 Refills, Maintenance, 07/30/22 18:19:00 EDT, Tablet, Partial fill upon patient request if the prescription is for a schedule II opioid drug. Start Date: 07/30/22 Status: Ordered cilostazol 100 mg oral tablet 1 tablet = 100 mg, By Mouth, 2 times a day, # 60 tablet, 0 Refills, Maintenance, 06/23/18 7:03:20 EDT, Tablet Start Date: 06/23/18 Status: Ordered folic acid 1 mg oral tablet 1 mg, 1, tablet, By Mouth, Daily, # 30 tablet, Refills 0, Maintenance, 07/30/22 18:19:00 EDT, Partial fill upon patient request if the prescription is for a schedule II opioid drug. Start Date: 07/30/22 Status: Ordered furosemide 40 mg oral tablet 40 mg, 1, tablet, By Mouth, Daily, # 30 tablet, Refills 0, Maintenance, 07/30/22 18:26:00 EDT, Partial fill upon patient request if the prescription is for a schedule II opioid drug. Start Date: 07/30/22 Status: Ordered gabapentin 300 mg oral capsule 300 mg, 1, capsule, By Mouth, Daily at bedtime, # 90 capsule, Refills 0, Maintenance, 06/23/18 6:50:45 EDT Start Date: 06/23/18 Status: Ordered HealthyLax oral powder for reconstitution = 17 Gm, By Mouth, Daily, 0 Refills, Maintenance, 07/30/22 18:19:00 EDT, Partial fill upon patient request if the prescription is for a schedule II opioid drug. Start Date: 07/30/22 Status: Ordered hydrALAZINE = 50 mg, 2 times a day, 0 Refills, Maintenance, 05/20/20 7:39:00 EDT Start Date: 05/20/20 Status: Ordered latanoprost 0.005% ophthalmic solution 1 drops, Eyes, Both, Daily in PM, # 2.5 mL, 0 Refills, Maintenance, 07/30/22 18:19:00 EDT, Solution, Partial fill upon patient request if the prescription is for a schedule II opioid drug. Start Date: 07/30/22 Status: Ordered montelukast 10 mg oral tablet 10 mg, 1, tablet, By Mouth, Daily, Refills 0, Maintenance, 12/21/18 11:10:07 EDT Start Date: 12/21/18 Status: Ordered NovoLOG FlexPen 100 units/mL injectable solution INJECT 5-10 UNITS SUBCUTANEOUSLY THREE TIMES DAILY DIRECTED Start Date: 07/30/22 Status: Ordered pantoprazole 40 mg oral delayed release tablet 1 tablet = 40 mg, By Mouth, Daily Start Date: 07/30/22 Status: Ordered simethicone 125 mg oral capsule 1 capsule = 125 mg, By Mouth, 4 times a day, # 30 capsule, 0 Refills, Maintenance, 07/30/22 18:19:00 EDT, Capsule, Partial fill upon patient request if the prescription is for a schedule II opioid drug. Start Date: 07/30/22 Status: Ordered sucralfate 1 gm oral tablet 1 Gm, 1, tablet, By Mouth, 2 times a day, # 180 tablet, Refills 0, Maintenance, 07/30/22 18:19:00 EDT, Partial fill upon patient request if the prescription is for a schedule II opioid drug. Start Date: 07/30/22 Status: Ordered Symbicort 160mcg/4.5mcg Inhaler 2, puffs, Inhalation, 2 times a day, # 10.2 Gm, Refills 0, Maintenance, 07/30/22 18:19:00 EDT, Aerosol Start Date: 07/30/22 Status: Ordered Toujeo SoloStar 300 units/mL subcutaneous solution = 40 units, Subcutaneous Injection, Daily Start Date: 07/30/22 Status: Ordered Tradjenta 5 mg oral tablet 1 tablet = 5 mg, By Mouth, Daily, # 30 tablet, 0 Refills, Maintenance, 05/20/20 7:45:00 EDT, Tablet Start Date: 05/20/20 Status: Ordered Vitamin B-12 1000 mcg oral tablet 1,000 mcg, 1, tablet, By Mouth, Daily, # 30 tablet, Refills 0, Maintenance, 07/30/22 18:26:00 EDT, Partial fill upon patient request if the prescription is for a schedule II opioid drug. Start Date: 07/30/22 Status: Ordered Vitamin D 95184 iu oral capsule 50,000 International_Units, 1, capsule, By Mouth, Every week, Refills 0, Maintenance, 06/23/18 7:02:38 EDT Start Date: 06/23/18 Status: Ordered Problem List Condition Confirmation Course Effective Dates Status H ealth Status Informant Asthma Confirmed Active Cardiac catheterization Confirmed Active Diabetes mellitus Confirmed Active Hyperlipidemia Confirmed Active Hypertension Confirmed Active Obese class II Confirmed Active Social History Social History Type Response Smoking Status Never (less than 100 in lifetime) entered on: 12/21/18 Sex History and physical note * Event Display: History and Physical Hospital Authored Date: * Event Display: History and Physical Hospital Authored Date: Hospital Progress note * Event Display: Progress Note Hospital Authored Date: Note * Lor Bergman RN: PERFORM Event Display: Discharge/Transfer Note Hospital Authored Date: [id number] Post Discharge Phone Call Entered On: 08/06/2022 15:29 EDT Performed On: 08/06/2022 15:29 EDT by Lor Bergman RN Post Discharge Phone Call Post Discharge Caller : Patient Post Discharge Call Category : Other: Post cath follow up Post Discharge Message Status : Unable to reach patient after multiple attempts Madalyn CORTEZ, Lor - 08/06/2022 15:29 EDT Patient Care team information Care Team Personnel Name: Preston VORA, Daniel Garcia Position: [facility] Outreach Member Role: PCP Address: Address: [address] [place] [address]- Name: Carmen Guzman RN Position: S RN Member Role: Primary Care Nurse Care Team Related Persons Name: VENKATA NASSAR Address: home [address] [place] [address] Name: IWONA TABARES
--- OUTSIDE RECORDS SUMMARY | 2024-04-11 12:08 | XMS_ITS | Continuity of Care Document ---
Author Organization [facility] ter Address [address] [place] [id number]- Care Team Providers Care Handle Lathe Operator Name Role Phone Turner Golden MD, Shelby Bear Primary Care Physician Encounter [facility] Date(s): 04/03/23 - 04/07/[address] [address]- Encounter Diagnosis CHF exacerbation(Final) - 04/03/23 Pneumonia(Final) - 04/03/23 Hypertension(Final) - 04/03/23 Shortness of breath(Final) - 04/03/23 Discharge Disposition: A-D/C Home Attending Physician: Stefanie Medel MD Admitting Physician: River Daniel MD Referring Physician: Not on Staff, Referring MD Allergies, Adverse Reactions, Alerts Substance Reaction [...] Recorded Medications amLODIPine 10 mg oral tablet 10 mg, Tablet, By Mouth, 04/07/23 9:00:00 EDT Start Date: 04/07/23 Stop Date: 04/07/23 Status: Completed amLODIPine 10 mg oral tablet 1 tablet = 10 mg, By Mouth, Daily, # 30 tablet, 0 Refills, Maintenance, 07/30/22 18:19:00 EDT, Tablet, Partial fill upon patient request if the prescription is for a schedule II opioid drug. Start Date: 07/30/22 Status: Ordered aspirin 81 mg oral delayed release tablet 81 mg, 1, tablet, By Mouth, Daily at bedtime, # 30 tablet, Refills 0, Maintenance, 06/23/18 7:02:48EDT Start Date: 06/23/18 Status: Ordered atorvastatin 40 mg oral tablet 1 tablet = 40 mg, By Mouth, Daily at bedtime, # 30 tablet, 0 Refills, Maintenance, 05/20/20 7:24:00EDT, Tablet Start Date: 05/20/20 Status: Ordered brimonidine 0.2% ophthalmic solution 1 drops, Eyes, Both, 2 times a day, 0 Refills, Maintenance, 07/30/22 18:24:00 EDT, Partial fill upon patient request if the prescription is for a schedule II opioid drug. Start Date: 07/30/22 Status: Ordered carvedilol 25 mg oral tablet 25 mg, Tablet, By Mouth, 04/07/23 9:00:00 EDT Start Date: 04/07/23 Stop Date: 04/07/23 Status: Completed carvedilol 25 mg oral tablet 25 mg, 1, tablet, By Mouth, 2 times a day, # 180 tablet, Refills 0, Maintenance, 07/30/22 18:19:00 EDT, Partial fill upon patient request if the prescription is for a schedule II opioid drug. Start Date: 07/30/22 Status: Ordered empagliflozin 10 mg oral tablet 1 tablet = 10 mg, By Mouth, Daily in AM, # 30 tablet, 0 Refills, Maintenance, 10/15/22 12:54:00 EST, Tablet, [facility], Partial fill upon patient request if the prescription is for a schedule II opioid drug., 150, cm, 10/15/22 12:09:00... Start Date: 10/15/22 Status: Ordered ferrous sulfate 325 mg oral enteric coated tablet 325 mg, By Mouth, Every other day, Chasidy xiong jessica., # 30 tablet, Refills 0, Tot. Refills 0, Maintenance, 04/07/23 11:34:00 EDT, Route to Pharmacy Electronically, [facility], Partial fill upon patient request if the prescr... Start Date: 04/07/23 Status: Ordered folic acid 1 mg oral [...] 6:50:45 EDT Start Date: 06/23/18 Status: Ordered hydrALAZINE 25 mg oral tablet 25 mg, Tablet, By Mouth, 04/07/23 9:00:00 EDT Start Date: 04/07/23 Stop Date: 04/07/23 Status: Completed hydrALAZINE 25 mg oral tablet 25 mg, 1, tablet, By Mouth, 2 times a day, # 60 tablet, Refills 0, Tot. Refills 0, Maintenance, 10/15/22 13:13:00 EST, Route to Pharmacy Electronically, [facility], Partial fill upon patient request if the prescription is for a schedule... Start Date: 10/15/22 Status: Ordered latanoprost 0.005% ophthalmic solution 1 drops, Eyes, Both, Daily in PM, # 2.5 mL, 0 Refills, Maintenance, 07/30/22 18:19:00 EDT, Solution, Partial fill upon patient request if the prescription is for a schedule II opioid drug. Start Date: 07/30/22 Status: Ordered montelukast 10 mg oral tablet 10 mg, 1, tablet, By Mouth, Daily before dinner, Refills 0, Maintenance, 12/21/18 11:10:07 EDT Start Date: 12/21/18 Status: Ordered NovoLOG FlexPen 100 units/mL injectable solution = 3 units, Subcutaneous Injection, 3 times a day before meals, INJECT 5-10 UNITS SUBCUTANEOUSLY THREE TIMES DAILY DIRECTED Start Date: 07/30/22 Status: Ordered torsemide 20 mg oral tablet 1 tablet = 20 mg, By Mouth, 2 times a day, # 60 tablet, 0 Refills, Maintenance, 10/15/22 12:54:00 EST, Tablet, [facility], Partial fill upon patient request if the prescription is for aschedule II opioid drug., 150, cm, 10/15/22 12:09:0... Start Date: 10/15/22 Stop Date: 11/14/22 Status: Ordered Toujeo SoloStar 300 units/mL subcutaneous solution = 34 units, Subcutaneous Injection, Daily in AM Start Date: 07/30/22 Status: Ordered Tradjenta 5 mg oral tablet 1 tablet = 5 mg, By Mouth, Daily, # 30 tablet, 0 Refills, Maintenance, 04/03/23 20:47:00 EDT, Tablet, Partial fill upon patient request if the prescription is for a schedule II opioid drug. Start Date: 04/03/23 Status: Ordered Trelegy Ellipta 200 mcg-62.5 mcg-25 mcg/inh inhalation powder 1 puffs, Inhalation, Daily, at the same time every day, 0 Refills, Maintenance, 10/11/22 17:28:00 EST, Powder, Partial fill upon patient request if the prescription is for a schedule II opioid drug. Start Date: 10/11/22 Status: Ordered Vitamin B-12 1000 mcg oral tablet 1,000 mcg, 1, tablet, By Mouth, Daily, # 30 tablet, Refills 0, Maintenance, 07/30/22 18:26:00 EDT, Partial fill upon patient request if the prescription is for a schedule II opioid drug. Start Date: 07/30/22 Status: Ordered Vitamin D 20440 iu oral capsule 50,000 International_Units, 1, capsule, By Mouth, Every week, Refills 0, Maintenance, 06/23/18 7:02:38 EDT Start Date: 06/23/18 Status: Ordered Problem List Condition Confirmation Course Effective Dates Status H ealth Status Informant Asthma Confirmed Active Cardiac catheterization Confirmed Active Diabetes mellitus Confirmed Active Hyperlipidemia Confirmed Active Hypertension Confirmed Active Severe obesity Confirmed Active Results Orders for Microbiology Reports Name Date Blood Culture 04/03/23 Blood Culture #2 04/03/23 Microbiology Reports TEST:Blood Culture STATUS:Unauthenticated BODY SITE: SOURCE:Blood COLLECTED DATE/TIME:04/03/23 3:09 PM Blood Culture SPECIMEN DESCRIPTION : BLOOD R H SPECIAL REQUESTS : NONE CULTURE : NO GROWTH 4 DAYS REPORT STATUS : PRELIMINARY REPORT TEST:Blood Culture, Second Order STATUS:Unauthenticated BODY SITE: SOURCE:Blood COLLECTED DATE/TIME:04/03/23 3:09 PM Blood Culture, Second Order SPECIMEN DESCRIPTION : BLOOD L H SPECIAL REQUESTS : NONE CULTURE : NO GROWTH 4 DAYS REPORT STATUS : PRELIMINARY REPORT Radiology Reports * Exam Date Time Procedure Performing Provider Status 04/03/23 3:47 PM Chest Portable Laura Petty; Erika (Jessica ified) Notes: (Chest Portable) Reason For Exam: CHF RESULT: Chest Portable PROCEDURE: Chest Portable CLINICAL INDICATION: 77 years old Female with Reason: CHF; Clinical Question(s): Pulmonary Edema. COMPARISON: Chest radiograph 2006 through October 12, 2022. FINDINGS: Portable AP semierect view of the chest performed at 3:33 PM. Lines and tubes: Several EKG leads project over the chest. Lungs and pleura: At least moderate RIGHT pleural effusion again noted, partially obscured by extensive hazy opacities oncology asymmetry of the lungs with relative sparing of the apices, much worse than on the prior exam. No definite LEFT pleural effusion.No evidence of pneumothorax. Heart, mediastinum and olvin: Mild tortuosity and calcification of the thoracic aorta noted. Mild cardiomegaly. Pulmonary vasculature obscured. Bones and soft tissues: Moderate degenerative changes in the thoracic spine IMPRESSION: 1. Significant linear opacities and consolidation at the lung bases and perihilar regions with relative sparing at the apices which could represent pulmonary edema, extensive pneumonia or ARDS. 2. Probably unchanged small to moderate RIGHT pleural effusion, partially obscured. No definite LEFT pleural effusion. 3. Mild unchanged cardiomegaly. Pulmonary vasculature obscured. Thank you for allowing me to participate in the care of this patient. An actionable message (Yellow) has been communicated via the [employer] system on 04/03/2023 3:50 PM, Message ID [id number]. WSN: [id number] Ordering Physician: Vin Pyle Dictated By: Moy Hurtado MD Dictated Date/Time: 04/03/23 3:50 pm Reviewed By: Moy Hurtado MD Signed By: Moy Hurtado MD Signed Date/Time: 04/03/23 3:50 pm Transcribed By: LESLYE Transcribed Date/Time: 04/03/23 3:48 pm Vital Signs Most recent to oldest [Reference Range]: 1 2 3 4 Height 145 cm (04/06/23 4:17 AM) 145 cm (04/06/23 12:00 AM) 145 cm (04/05/23 4:23 PM) Weight 92.0 kg (04/06/23 6:36 PM) 92.7 kg (04/05/23 1:46 PM) 92.2 kg (04/05/23 5:56 AM) Oxygen Saturation [94-100 %] 98 % (04/07/23 12:00 PM) 100 % (04/07/23 7:00 AM) 97 % (04/07/23 4:00 AM) Pulse Rate [55-90 bpm] 59 bpm (04/07/23 12:00 PM) 56 bpm (04/07/23 7:53 AM) 58 bpm (04/07/23 7:00 AM) Body Mass Index [18.5-24.99 kg/m2] 44.38 kg/m2 *>HHI* (04/03/23 8:49 PM) Blood Pressure [90-138/55-84 mm Hg] 144/43mm Hg *H* (04/07/23 12:00 PM) 146/45mm Hg *H* (04/07/23 7:53 AM) 146/45mm Hg *H* (04/07/23 7:53 AM) 146/45mm Hg *H* (04/07/23 7:53 AM) Respiratory Rate [16-30 br/min] 20 br/min (04/07/23 12:00 PM) 20 br/min (04/07/23 7:00 AM) 18 br/min (04/07/23 4:00 AM) Temperature [96.8-100.4 DegF] 98 DegF (04/07/23 12:00 PM) 97.9 DegF (04/07/23 7:00 AM) 97.7 DegF (04/07/23 4:00 AM) Liters per Minute 2 L/min (04/07/23 7:00 AM) 2 L/min (04/07/23 4:00 AM) 2 L/min (04/06/23 8:00 PM) Mode of Delivery (Oxygen) Room air (04/07/23 12:00 PM) Nasal cannula (04/07/23 7:00 AM) Other: donahue (04/07/23 4:00 AM) Blood pressure sites Arm, right (04/07/23 4:00 AM) Arm, right (04/06/23 8:00 PM) Arm, right (04/06/23 4:17 AM) Temperature Route Oral (04/07/23 12:00 PM) Oral (04/07/23 7:00 AM) Oral (04/07/23 4:00 AM) Dry Weight 93.3 kg (04/03/23 8:49 PM) Weight Obtained Via Bed scale (04/05/23 1:46 PM) Bed scale (04/05/23 5:56 AM) Social History Social History Type Response Smoking Status Never (less than 100 in lifetime) entered on: 12/21/18 Sex Admission evaluation note * Diane VORA, Estrellita Garcia: PERFORM, MODIFY Event Display: Admission Note Authored Date: [id number] Patient: ??KHLOE MARTINEZ ? Age:??77 Years?Sex:??Female?:??1945?? Chief Complaint/Reason for Consultation shortness of breath History of Present Illness Ms. Martinez is a 77-year-old [place]an-speaking lady with a PMH of severe aortic stenosis w/plan for TAVR, HFpEF (60-65% 07/2022), CAD, type 2 diabetes on insulin, HTN, HLD, COPD on 2L home O2, JOSE, spinal stenosis with neural claudication, PAD with bilateral SFA occlusion who presents with sudden onset shortness of breath. Accompanied by daughter. ?? Per patient's daughter they were driving around with the patient in the backseat when she suddenly became short of breath.?? They took her home and checked her SPO2 using pulse ox at home which showed 82%.?? Blood pressure was systolic 180s.?? Prior to this she was doing fine, this morning was breathing okay and had no active issues or complaints. Denies weight gain, leg swelling, orthopnea. Doesnot use CPAP at night. She takes torsemide 20 mg daily at home and has not missed meds.?? She follows with [facility] cardiology for severe aortic stenosis and is undergoing TAVR eval, is high risk for SAVR. Last echo July 2022 showed EF 60 to 65%, severely dilated left atrium, aortic valve area 0.5 cm??, mean gradient 58 mmHg. Confirmed full code with patient and family. ?? Upon EMS arrival she was found to be hypoxic in the 60s, altered and placed on nonrebreather at 15 L and brought to the ER.?? On arrival to the ER her vitals were HR 60, RR 16, BP 130/42, 94% on BiPAP 45%. She was in severe respiratory distress but awake and protecting her airway with bilateral B-lines on ultrasound and tachypnea.?? She was started on BiPAP in the ER with improvement. Labs showedVBG 7.27/53.1/58, WBC 19.9, Hb 10.1 (at baseline), sodium 137, potassium 4.7, bicarb 16, anion gap 60, glucose 284, BUN 34, creatinine 1.5, magnesium 2.5, normal LFTs, lactate 2.6 with repeat 1.1, NTproBNP 2477 (previously 1500), troponin 22 then 28, 30, 29. Repeat VBG after BiPAP improved from 7.27/53.1 to 7.31/44. Chest x-ray shows bilateral pulmonary edema with pulmonary vascular congestion, obscured cardiac and diaphragm borders and right lung, significant linear opacities and consolidation at the lung bases and perihilar regions with relative sparing at the apices, possible right pleural effusion, no left pleural effusion, mildly enlarged cardiac silhouette. Overall worsened compared to prior CXR in Oct 2022. ?? On my evaluation??patient was breathing comfortably on BiPAP??14/8 40%.? Review of Systems All systems reviewed and negative except as indicated in HPI. Objective Vital Signs?? Temperature: 98.1 DegF (04/03/23 20:49:00) Temperature Route: Axillary (04/03/23 20:49:00) Pulse Rate: 55 bpm (04/03/23 20:49:00) Heart Rate Monitored: 71 bpm (04/03/23 22:34:00) Respiratory Rate: 19 br/min (04/03/23 20:49:00) Systolic Blood Pressure: 129 mm Hg (04/03/23 20:49:00) Diastolic Blood Pressure: 68 mm Hg (04/03/23 20:49:00) Blood pressure sites: Arm, right (04/03/23 20:49:00) Mean Arterial Pressure: 88 mm Hg (04/03/23 20:49:00) Pulse Pressure: 61 mm Hg (04/03/23 20:49:00) Oxygen Saturation: 98 % (04/03/23 22:34:00) Mode of Delivery (Oxygen): BiPAP (04/03/23 19:54:00) FiO2: 40 % (04/03/23 22:34:00) Early Warning Score: 3 (04/03/23 22:36:47) ? Intake/Output? 04/03 19:33 04/03 07:00 04/02 07:00 04/01 07:00 03/31 07:00 ?? 04/03 23:38 04/03 23:38 04/03 06:59 04/02 06:59 04/01 06:59 Intake ?0 ?0 ?0 ?0 ?0 Output ?350 ?350 ?0 ?0 ?0 Net Total ? -350 ? -350 ?0 ?0 ?0 ? Physical Exam Constitutional: Alert, in no acute distress. Head EENT: Extraocular muscle movement intact.??Moist mucous membranes.?? Neck: Supple. No JVD. Respiratory: On BiPAP 14/8 40%, crackles bilaterally.??No use of accessory muscles. Cardiovascular: S1S2 regular. No murmurs, rubs or gallops. Gastrointestinal: Abdomen soft, non-tender, non-distended. Normal bowel sounds. Genitourinary: No CVA tenderness. Extremities: No lower extremity pitting??edema. No cyanosis or clubbing. Neurologic: AAOx3, Speech normal. No focal neurological deficits. Skin: No rash. Psychiatric: Normal mood and affect Assessment/Plan 77-year-old [place]an-speaking lady with a PMH of severe aortic stenosis w/plan for TAVR, HFpEF (60-65% 07/2022), CAD, type 2 diabetes on insulin, HTN, HLD, COPD on 2L home O2, JOSE, spinal stenosis with neural claudication, PAD with bilateral SFA occlusion who presents with sudden onset shortness of breath. ?? Acute respiratory failure with hypoxia and hypercapnia (J96.01):?? CHF exacerbation (I50.9):? Pneumonia (J18.9): Presented with sudden onset hypoxia with hypertension (unclear if HTN preceded hypoxia or occurred with respiratory distress) Elevated NT pro BNP compared to prior, crackles bilaterally on auscultation, no pedal edema, unableto assess JVD given BiPAP use Ddx: flash pulmonary edema most likely given acute onset with evidence of HTN with SBP 180s and underlying severe aortic stenosis vs acute diastolic heart failure exacerbation vs PNA given leukocytosis (which may be reactive to other differentials) and CXR findings of possible consolidation vs lesslikely COPD exacerbation - afterload reduction with carvedilol and hydralazine, home meds - diuresed with 40mg IV Lasix, has had appropriate UOP, will order AM 40mg Lasix - continue CAP treatment with ceftriaxone and azithromycin, ordered 5 day course - ordered Duonebs, will hold off on steroids currently as patient has been weaned off BiPAP after diuresing - weaned off BiPAP and now on 4L NC with good sats - monitor strict I/Os, replete lytes ?? Severe aortic stenosis (I35.0):? Planned for TAVR, not yet scheduled High risk for SAVR given comorbidities - likely contributed to current hospitalization given severity and uncontrolled HTN - continue to monitor, consider notifying HFA cardiology??of patient hospitalization ?? Hypertension (I10):? Initially was uncontrolled when checked at home with SBP 180s On presentation was better controlled after being placed on BiPAP - continue carvedilol and amlodipine and hydralazine, home meds ?? Chronic obstructive pulmonary disease (J44.9):?? On 2L home O2 - currently on 4L - presented with wheezing, possibly cardiac wheeze though was given Duonebs with improvement so unclear - will continue with Duonebs and CAP treatment ?? Microcytic anemia (D50.9):?? Chronic No active bleed - transfuse for Hb goal > 7 - monitor CBC ?? Diabetes mellitus (E11.9):? - SSI - lantus 15u nightly while NPO - goal 140-180 ?? Coronary artery disease (I25.10):? No chest pain - continue aspirin, statin, beta adriel ?? Code status: full DVT ppx:??lovenox Diet: regular Dispo:??intercare, can likely be transferred to floors if remains off BiPAP overnight ?? Total Visit Time: I personally spent a total of 80 minutes, including both rhaa-te-fskx and ytr-rntw-qo-face time on the date of the encounter, addressing the above diagnoses. Activities performed in this time include chart review, obtaining / reviewing history, performing amedically necessary evaluation, documentation and counseling. ?? Estrellita Contreras MD ?? Histories Past Medical History/Problem List Active Problems??(6) Asthma Cardiac catheterization Diabetes mellitus Hyperlipidemia Hypertension Severe obesity ? Past Surgical History No surgery history documented. ? Social History Tobacco Details:??Use: Never (less than 100 in lifetime). ? Family History No family history recorded. ? Medications Home Medications Amlodipine (amLODIPine 10 mg oral tablet)?1?tab(s)?10?Milligram?By Mouth?Daily Aspirin (aspirin 81 mg oral delayed release tablet)?81?Milligram?1?tablet?By Mouth?Daily at bedtime Atorvastatin (atorvastatin 40 mg oral tablet)?1?tab(s)?40?Milligram?By Mouth?Daily at bedtime Brimonidine Ophthalmic (brimonidine 0.2% ophthalmic solution)?1?Drops?Eyes, Both?2 times a day Carvedilol (carvedilol 25 mg oral tablet)?25?Milligram?1?tablet?By Mouth?2 times a day Cyanocobalamin (Vitamin B-12 1000 mcg oral tablet)?1,000?Microgram?1?tablet?By Mouth?Daily empagliflozin (empagliflozin 10 mg oral tablet)?1?tab(s)?10?Milligram?By Mouth?Daily in AM Ergocalciferol (Vitamin D 84917 iu oral capsule)?50,000?International Unit?1?capsule?By Mouth?Every week fluticasone/umeclidinium/vilanterol (Trelegy Ellipta 200 mcg-62.5 mcg-25 mcg/inh inhalation powder)?1?puff(s)?Inhalation?Daily?at the same time every day Folic Acid (folic acid 1 mg oral tablet)?1?Milligram?1?tablet?By Mouth?Daily Gabapentin (gabapentin 300 mg oral capsule)?300?Milligram?1?capsule?By Mouth?Daily at bedtime hydrALAZINE (hydrALAZINE 25 mg oral tablet)?25?Milligram?1?tablet?By Mouth?2 times a day Insulin Aspart (NovoLOG FlexPen 100 units/mL injectable solution)?3?unit(s)?Subcutaneous Injection?3 times a day before meals?INJECT 5-10 UNITS SUBCUTANEOUSLY THREE TIMES DAILY DIRECTED Insulin Glargine (Toujeo SoloStar 300 units/mL subcutaneous solution)?34?unit(s)?Subcutaneous Injection?Daily in AM Latanoprost Ophthalmic (latanoprost 0.005% ophthalmic solution)?1?Drops?Eyes, Both?Daily in PM linagliptin (Tradjenta 5 mg oral tablet)?1?tab(s)?5?Milligram?By Mouth?Daily Montelukast (montelukast 10 mg oral tablet)?10?Milligram?1?tablet?By Mouth?Daily before dinner torsemide (torsemide 20 mg oral tablet)?1?tab(s)?20?Milligram?By Mouth?2 times a day?for 30?Days torsemide (torsemide 20 mg oral tablet)?1?tab(s)?20?Milligram?By Mouth?Daily ? Inpatient Medications Medications (14) Active SCHEDULED: (3) Enoxaparin 40 mg Inj (Enoxaparin Inj) ??40 mg 0.4 mL, Subcutaneous Injection, Daily Insulin Lispro 100 units/mL Inj (3mL) (Insulin LISPRO Sliding Scale) ??2-10 units, Subcutaneous Injection, Every 6 hours NaCl 0.9% Flush 3ml (NaCL 0.9% Flush) ??3 mL, IV Push, Every 8 hours CONTINUOUS: (0) PRN: (11) Dextromethorphan-Guaifenesin 20 mg-200 mg/10 mL Liqu UD (Robitussin DM Liquid) ??10 mL, By Mouth, Every 4 hours Dextrose Inj Syringe (Dextrose 50% Inj Syringe (25Gm)) ??12.5 Gm, IV Push Slowly, Every 20 minutes Dextrose Inj Syringe (Dextrose 50% Inj Syringe (25Gm)) ??25 Gm, IV Push Slowly, Every 15 minutes Glucagon 1 mg Inj (Glucagon Inj) ??1 mg, Intramuscular, Once Glucose 40% Gel (15 Gm) (Glucose Gel) ??15 Gm, By Mouth, Every 20 minutes Glucose 40% Gel (15 Gm) (Glucose Gel) ??30 Gm, By Mouth, Every 20 minutes Melatonin 3 mg Tablet (Melatonin Tablet) ??3 mg, By Mouth, Daily at bedtime NaCl 0.9% Flush 3ml (NaCL 0.9% Flush) ??3 mL, IV Push, Every 8 hours Polyethylene Glycol 17 Gm Powder (MiraLax Powder) ??17 Gm 1 pack/packet, By Mouth, Daily Senna 8.6 mg / Docusate 50 mg tablet (Docusate/Senna Tablet) ??1 tablet, By Mouth, 2 times a day Simethicone 80 mg Chewable Tablet (Simethicone Tablet) ??80 mg, Chew, 3 times a day ? Results Recent Labs BLOOD COUNT & DIFF WBC 19.9 k/mm3 (High)?? 04/03/2023 15:09 RBC 4.36 m/mm3 ()?? 04/03/2023 15:09 Hgb 10.1 Gm/dL (Low)?? 04/03/2023 15:09 Hct 33.6 % (Low)?? 04/03/2023 15:09 MCV 77.1 femtoliters (Low)?? 04/03/2023 15:09 MCH 23.2 pg (Low)?? 04/03/2023 15:09 MCHC 30.1 g/dL (Low)?? 04/03/2023 15:09 Platelet Count 458 k/mm3 ()?? 04/03/2023 15:09 RDW-SD 51.2 femtoliters (High)?? 04/03/2023 15:09 MPV 9.3 femtoliters (Low)?? 04/03/2023 15:09 Nucleated RBC (Automated) 0.0 #/100 WBC'S ()?? 04/03/2023 15:09 Abs. NRBC 0.0 k/mm3 ()?? 04/03/2023 15:09 Abs. Neut 15.7 k/mm3 (High)?? 04/03/2023 15:09 Abs. Lymph 2.8 k/mm3 ()?? 04/03/2023 15:09 Abs. Fentress 0.9 k/mm3 ()?? 04/03/2023 15:09 Abs. Eo 0.4 k/mm3 ()?? 04/03/2023 15:09 Abs. Baso 0.1 k/mm3 ()?? 04/03/2023 15:09 Neut % 78.8 % (High)?? 04/03/2023 15:09 Lymph % 13.9 % (Low)?? 04/03/2023 15:09 Fentress % 4.3 % (Low)?? 04/03/2023 15:09 Eos % 1.9 % ()?? 04/03/2023 15:09 Baso % 0.6 % ()?? 04/03/2023 15:09 Hemoglobin (POC) POC Cartridge 11.2 Gm/dL (Low)?? 04/03/2023 15:08 Hematocrit (POC) POC Cartridge 33 % (Low)?? 04/03/2023 15:08 Imm Gran 0.5 % ()?? 04/03/2023 15:09 Abs. Imm Gran 0.1 k/mm3 ()?? 04/03/2023 15:09 ?? BLOOD GAS pH Venous (POC) POC Cartridge 7.27 (Low)?? 04/03/2023 15:08 pCO2 Venous (POC) POC Cartridge 53.1 mm Hg (High)?? 04/03/2023 15:08 pO2 Venous (POC) POC Cartridge 58 mm Hg (High)?? 04/03/2023 15:08 Est Bicarbonate (POC) POC Cartridge 24.3 mmol/L ()?? 04/03/2023 15:08 % O2 Sat Venous (POC) POC Cartridge 85 ()?? 04/03/2023 15:08 Base Excess (POC) POC Cartridge NEGATIVE 3 ()?? 04/03/2023 15:08 Specimen Type - Blood Gas VENOUS ()?? 04/03/2023 16:01 pH, Venous 7.31 (Low)?? 04/03/2023 16:01 pCO2, Venous 44 mm Hg ()?? 04/03/2023 16:01 pO2, Venous 64 mm Hg (High)?? 04/03/2023 16:01 Bicarbonate, Estimated(Venous) 22 mmol/L (Low)?? 04/03/2023 16:01 ?? CARDIAC Nt-Probnp 2477 pg/mL (High)?? 04/03/2023 15:09 High Sensitivity Troponin (HSTnT) 29 ng/L (High)?? 04/03/2023 21:02 ?? CHEM GENERAL Sodium 137 mmol/L ()?? 04/03/2023 15:09 Potassium 4.7 mmol/L ()?? 04/03/2023 17:12 Chloride 101 mmol/L ()?? 04/03/2023 15:09 Bicarbonate Level 16 mmol/L (Low)?? 04/03/2023 15:09 Anion Gap 20 (High)?? 04/03/2023 15:09 Sodium (POC) POC Cartridge 137 mmol/L ()?? 04/03/2023 15:08 Potassium (POC) POC Cartridge 4.3 mmol/L ()?? 04/03/2023 15:08 Glucose Level 284 mg/dL (High)?? 04/03/2023 15:09 Glucose (POC) POC Cartridge 273 (High)?? 04/03/2023 15:08 Glucose, POC 219 mg/dL (High)?? 04/03/2023 18:04 BUN 34 mg/dL (High)?? 04/03/2023 15:09 Creatinine-Blood 1.5 mg/dL (High)?? 04/03/2023 15:09 Estimated GFR Creatinine 35 ML/MIN/1.73 M2 ()?? 04/03/2023 15:09 Calcium 9.3 mg/dL ()?? 04/03/2023 15:09 Calcium, Ionized pH Corrected 1.18 mmol/L ()?? 04/03/2023 15:09 Ionized Calcium (POC) POC Cartridge 1.25 mmol/L ()?? 04/03/2023 15:08 Magnesium 2.5 mg/dL (High)?? 04/03/2023 15:09 Protein, Total 6.4 Gm/dL ()?? 04/03/2023 19:22 Albumin 3.2 Gm/dL (Low)?? 04/03/2023 19:22 Alkaline Phosphatase 160 units/L (High)?? 04/03/2023 19:22 Lipase 28 units/L ()?? 04/03/2023 17:12 AST (SGOT) 18 units/L ()?? 04/03/2023 19:22 ALT (SGPT) 17 units/L ()?? 04/03/2023 19:22 Bilirubin, Total 0.7 mg/dL ()?? 04/03/2023 19:22 Bilirubin, Direct 0.3 mg/dL ()?? 04/03/2023 19:22 Bilirubin, Indirect 0.4 mg/dL ()?? 04/03/2023 19:22 Lactate 1.1 mmol/L ()?? 04/03/2023 17:12 ?? HEME OTHER Hold Blue Top SPECIMEN DISCARDED AFTER 4 HOURS. ()?? 04/03/2023 15:09 ?? MISC. CHEMISTRY Hold Gel Top SPECIMEN DISCARDED AFTER 1 WEEK ()?? 04/03/2023 19:22 ?? UA/URINALYSIS Appear/Color, Urine LIGHT YELLOW ()?? 04/03/2023 17:56 Specific Holton, Urine 1.012 ()?? 04/03/2023 17:56 pH, Urine 6.0 ()?? 04/03/2023 17:56 Albumin, Urine 2+ (Abnormal)?? 04/03/2023 17:56 Glucose, Urine 4+ (Abnormal)?? 04/03/2023 17:56 Ketones, Urine NEGATIVE ()?? 04/03/2023 17:56 Bilirubin, Urine NEGATIVE ()?? 04/03/2023 17:56 Hemoglobin, Urine NEGATIVE ()?? 04/03/2023 17:56 Nitrite, Urine NEGATIVE ()?? 04/03/2023 17:56 Leukocyte, Urine 3+ (Abnormal)?? 04/03/2023 17:56 Urobilinogen NORMAL mg/dL ()?? 04/03/2023 17:56 WBC's, Urine 35 /HPF (High)?? 04/03/2023 17:56 RBC's, Urine NONE SEEN /HPF ()?? 04/03/2023 17:56 Bacteria SLIGHT HPF (Abnormal)?? 04/03/2023 17:56 Squamous Epith 2 /HPF ()?? 04/03/2023 17:56 Hold Urine Culture Testing available 48 hours from time of collection. ()?? 04/03/2023 17:56 ?? URINE OTHER Est Creatinine Clearance 19.24 mL/min ()?? 04/03/2023 20:56 ?? VIROLOGY COVID-19 by RT-PCR NEGATIVE ()?? 04/03/2023 17:46 ? Blood Glucose Trend Glucose Level:??284 mg/dL??High (04/03/23 15:09:00) Glucose (POC) POC Cartridge:??273??High (04/03/23 15:08:00) Glucose, POC:??219 mg/dL??High (04/03/23 18:04:00) ? CBC, CBC w/Diff?? CBC?? Differential?? WBC:??19.9 k/mm3??High (15:09) Abs. Neut:??15.7 k/mm3??High (15:09) RBC: 4.36 m/mm3 (15:09) Abs. Lymph: 2.8 k/mm3 (15:09) Hct:??33.6 %??Low (15:09) Abs. Fentress: 0.9 k/mm3 (15:09) RDW-SD:??51.2 femtoliters??High (15:09) Abs. Eo: 0.4 k/mm3 (15:09) Nucleated RBC (Automated): 0 #/100 WBC'S (15:09) Abs. Baso: 0.1 k/mm3 (15:09) Abs. NRBC: 0 k/mm3 (15:09) Neut %:??78.8 %??High (15:09) ?? Lymph %:??13.9 %??Low (15:09) ?? Fentress %:??4.3 %??Low (15:09) ?? Eos %: 1.9 % (15:09) ?? Baso %: 0.6 % (15:09) ?? Hemoglobin (POC) POC Cartridge:??11.2 Gm/dL??Low (15:08) ?? Hematocrit (POC) POC Cartridge:??33 %??Low (15:08) ?? Imm Gran: 0.5 % (15:09) ?? Abs. Imm Gran: 0.1 k/mm3 (15:09) ? LFT Albumin:??3.2 Gm/dL??Low (19:22) Alkaline Phosphatase:??160 units/L??High (19:22) ALT (SGPT): 17 units/L (19:22) AST (SGOT): 18 units/L (19:22) Bilirubin, Direct: 0.3 mg/dL (19:22) Bilirubin, Indirect: 0.4 mg/dL (19:22) Bilirubin, Total: 0.7 mg/dL (19:22) ?? Urinalysis Albumin, Urine: 2+ Abnormal (17:56) Appear/Color, Urine: LIGHT YELLOW (17:56) Bacteria: SLIGHT Abnormal (17:56) Bilirubin, Urine: NEGATIVE (17:56) Est Creatinine Clearance: 19.24 mL/min (20:56) Glucose, Urine: 4+ Abnormal (17:56) Hemoglobin, Urine: NEGATIVE (17:56) Hold Urine Culture: Testing available 48 hours from time of collection. (17:56) Ketones, Urine: NEGATIVE (17:56) Leukocyte, Urine: 3+ Abnormal (17:56) Nitrite, Urine: NEGATIVE (17:56) pH, Urine: 6 (17:56) RBC's, Urine: NONE SEEN (17:56) Specific Holton, Urine: 1.012 (17:56) Squamous Epith: 2 /HPF (17:56) Urobilinogen: NORMAL (17:56) WBC's, Urine:??35 /HPF??High (17:56) ?? Microbiology ?? COVID-19 (Novel Coronavirus), Rapid PCR?? Completed?? Source: Nasal Body Site: Nose Collected Dt/Tm: 04/03/2023 17:44 Last Updated Dt/Tm: 04/03/2023 18:48 ? Blood Gases Specimen Type - Blood Gas: VENOUS (16:01) Specimen Type - Blood Gas: VENOUS (15:08) pH, Venous:??7.31??Low (16:01) pCO2, Venous: 44 mm Hg (16:01) pO2, Venous:??64 mm Hg??High (16:01) Bicarbonate, Estimated(Venous):??22 mmol/L??Low (16:01) pH Venous (POC) POC Cartridge:??7.27??Low (15:08) pCO2 Venous (POC) POC Cartridge:??53.1 mm Hg??High (15:08) pO2 Venous (POC) POC Cartridge:??58 mm Hg??High (15:08) Est Bicarbonate (POC) POC Cartridge: 24.3 mmol/L (15:08) % O2 Sat Venous (POC) POC Cartridge: 85 (15:08) Base Excess (POC) POC Cartridge: NEGATIVE 3 (15:08) ?? EKG study * Event Display: ECG 12-Lead Authored Date: Please click on pdf link to open report * Event Display: ECG 12-Lead Authored Date: Ventricular Rate: 80 BPM Atrial Rate: 80 BPM P-R Interval: 134 ms QRS Duration: 96 ms Q-T Interval: 376 ms QTC Calculation(Bazett): 433 ms P Morris: 39 degrees R Morris: 17 degrees T Morris: 129 degrees Normal sinus rhythm Left ventricular hypertrophy with repolarization abnormality ( Jose product ) Abnormal ECG When compared with ECG of 13-OCT-2022 07:40, T wave amplitude has increased in Anterior leads T wave inversion now evident in Lateral leads Confirmed by SEBASTIAN SEN MD ([id number]) on 04/04/2023 7:44:56 AM [place]: SEBASTIAN SEN MD Cardiology * Event Display: Cardiac Rhythm Strips Authored Date: Hospital Progress note * Shania Gaines RN: PERFORM Event Display: Progress Note Hospital Authored Date: Paged provider commercial construction superintendent to change the poc and insulin coverage to ACHS instead of q6 as pt is on a diet and tolerating it well Awaiting order changes * Tatianna Shankar Rn: SIGN, VERIFY, PERFORM Event Display: Progress Note Hospital Authored Date: [id number] Patient: KHLOE MARTINEZ Age: 77 years Sex: Female : 1945 Associated Diagnoses: None Author: Raad Chaudhari, Tatianna Findings Problem Related to Alteration in Respiratory Function (new) : Alteration in Respiratory Function/new 04/06/2023 9:00 EDT Alteration in Resp Status Related to Pneumonia Goals & Outcomes, Respiratory Pt will maintain/resume baseline physical assessment, Pt will notdevelop complications r/t mechanical ventilation, Pt will maintain adequate nutritional intake, Pt will maintain/resume normal fluid/electrolyte balance, Pt will not develop complications r/t immobility, Pt will demonstrate proper technique w/self care procedures Interventions, Respiratory Assess for and report S&S of respiratory distress, Position for comfort & optimal oxygenation BH Goals/Interventions, Respiratory Yes Respiratory, Problem Start 04/04/2023 2:22 Reviewed Plan with, Respiratory Patient Patient Progression, Respiratory Patient progressing according to plan . Nursing Data Respiratory/Pulmonary Data. : Respiratory/Pulmonary Data. 04/06/2023 9:00 EDT Respiratory Symptoms Dyspnea with exertion Chest expansion Symmetrical Accessory Muscles use No Respiratory Assessment Comment Pt on 2L O2 Cough No cough Respiratory pattern Regular Respiratory Treatment(s) Cough and deep breathe Respiratory WNL except . Vital Signs : VITAL SIGNS SECTION 04/06/2023 11:00 EDT Temperature 98 DegF Temperature Route Oral Pulse Rate 71 bpm Respiratory Rate 20 br/min Systolic Blood Pressure 138 mm Hg Diastolic Blood Pressure 52 mm Hg L Pulse Pressure 86 mm Hg Oxygen Saturation 99 % Liters per Minute 2 L/min Mode of Delivery (Oxygen) Nasal cannula . Evaluation A&O x3, citizen of [place] speaking, security assurance specialist used for assessment/teaching. VSS, denied pain/discomfort. LS dim, cont on 2L supplemental O2, no desats. Pt reported that she feels her breathing is much better . Cont on ceftriaxone and azithromycin. IV patent. Tolerating cardiac diet, denied N/V. Cont with POC . Discharge Information Pulmonary Rehab Discharge : Pulmonary Rehab Discharge Status 04/03/2023 22:34 EDT CPAP/BiPAP Mask Type Full CPAP/BiPAP Mask Size Small 04/03/2023 18:14 EDT CPAP/BiPAP Mask Type Full CPAP/BiPAP Mask Size Small 04/03/2023 16:20 EDT CPAP/BiPAP Mask Type Full CPAP/BiPAP Mask Size Small 04/03/2023 15:06 EDT CPAP/BiPAP Mask Type Full CPAP/BiPAP Mask Size Small Rehabilitation Discharge : Rehab Discharge Index 04/05/2023 9:04 EDT Comments on treatment indicated Recommend regular diet and thin liquids, No furhter ST services are warranted at this time. Would consider GI consult to further assess s/sx of esophageal dysphagia. Full chart review completed Yes Hospital course Hospital course * Abhi Jenkins MD: PERFORM Event Display: Progress Note Hospital Authored Date: [id number] Patient: ??KHLOE MARTINEZ ? Age:??77 Years?Sex:??Female?:??1945?? Subjective No events overnight. Patient mentions that she is feeling well and does not have any complaints at the moment. She is in good spirits and mentions that she feels much better. Denies chest pain, shortness of breath, abdominal pain or dysuria. Review of Systems A full review of systems was completed and is otherwise negative except as mentioned in history of present illness. Objective Temperature?98 ?(11:39) Systolic Blood Pressure?138 ?(11:39) Diastolic Blood Pressure?52 ?(11:39) Pulse?71 ?(11:39) SpO2?99 ?(11:39) Respiratory Rate?20 ?(11:39) ? Physical Exam Constitutional:??Elderly female??in no acute??distress. Mental Status: Oriented to person, place and time. Head: Atraumatic/Normocephalic. Respiratory: Bibasilar crackles on auscultation, improving. No wheezing or rhonchi. Cardiovascular: S1 S2 regular. No murmurs, rubs or gallops. Extremities: No peripheral edema. Gastrointestinal: Abdomen soft, non-tender, non-distended. Normal bowel sounds. Genitourinary: No costovertebral angle tenderness. Neurologic: Cranial nerves II-XII grossly intact. No focal neurological deficits. Flexor?? Moves all extremities spontaneously. Skin: No rashes or lesions. No petechiae or purpura.?? Musculoskeletal: No cyanosis or clubbing. No gross deformities. Psychiatric: Normal mood and affect Results Recent Labs BLOOD COUNT & DIFF WBC 12.8 k/mm3 (High)?? 04/06/2023 01:45 RBC 3.77 m/mm3 (Low)?? 04/06/2023 01:45 Hgb 8.7 Gm/dL (Low)?? 04/06/2023 01:45 Hct 28.7 % (Low)?? 04/06/2023 01:45 MCV 76.1 femtoliters (Low)?? 04/06/2023 01:45 MCH 23.1 pg (Low)?? 04/06/2023 01:45 MCHC 30.3 g/dL (Low)?? 04/06/2023 01:45 Platelet Count 363 k/mm3 ()?? 04/06/2023 01:45 RDW-SD 50.9 femtoliters (High)?? 04/06/2023 01:45 MPV 9.8 femtoliters ()?? 04/06/2023 01:45 Nucleated RBC (Automated) 0.0 #/100 WBC'S ()?? 04/06/2023 01:45 Abs. NRBC 0.0 k/mm3 ()?? 04/06/2023 01:45 ?? CHEM GENERAL Sodium 142 mmol/L ()?? 04/06/2023 01:45 Potassium 3.7 mmol/L ()?? 04/06/2023 01:45 Chloride 106 mmol/L ()?? 04/06/2023 01:45 Bicarbonate Level 25 mmol/L ()?? 04/06/2023 01:45 Anion Gap 11 ()?? 04/06/2023 01:45 Glucose Level 111 mg/dL (High)?? 04/06/2023 01:45 Glucose, POC 103 mg/dL (High)?? 04/06/2023 05:56 BUN 35 mg/dL (High)?? 04/06/2023 01:45 Creatinine-Blood 1.6 mg/dL (High)?? 04/06/2023 01:45 Estimated GFR Creatinine 33 ML/MIN/1.73 M2 ()?? 04/06/2023 01:45 Calcium 8.7 mg/dL ()?? 04/06/2023 01:45 Iron Level 25 mcg/dL (Low)?? 04/05/2023 03:15 Iron Binding Capacity, Unsaturated 224 mcg/dL ()?? 04/05/2023 03:15 Iron Binding Capacity, Estimated Total 249 mcg/dL ()?? 04/05/2023 03:15 % Iron Saturation 10 % (Low)?? 04/05/2023 03:15 Ferritin Level 156 ng/mL ()?? 04/05/2023 03:15 ?? UA/URINALYSIS Appear/Color, Urine LIGHT YELLOW ()?? 04/05/2023 19:00 Specific Holton, Urine 1.010 ()?? 04/05/2023 19:00 pH, Urine 5.5 ()?? 04/05/2023 19:00 Albumin, Urine 1+ (Abnormal)?? 04/05/2023 19:00 Glucose, Urine 4+ (Abnormal)?? 04/05/2023 19:00 Ketones, Urine NEGATIVE ()?? 04/05/2023 19:00 Bilirubin, Urine NEGATIVE ()?? 04/05/2023 19:00 Hemoglobin, Urine NEGATIVE ()?? 04/05/2023 19:00 Nitrite, Urine NEGATIVE ()?? 04/05/2023 19:00 Leukocyte, Urine NEGATIVE ()?? 04/05/2023 19:00 Urobilinogen NORMAL mg/dL ()?? 04/05/2023 19:00 WBC's, Urine 5 /HPF ()?? 04/05/2023 19:00 RBC's, Urine NONE SEEN /HPF ()?? 04/05/2023 19:00 Squamous Epith 1 /HPF ()?? 04/05/2023 19:00 Mucus SLIGHT /LPF ()?? 04/05/2023 19:00 ?? URINE OTHER Creatinine, Urine Random 51.0 mg/dL ()?? 04/05/2023 13:45 Sodium, Urine Random 71 mmol/L ()?? 04/05/2023 13:45 Urea Nitrogen, Urine Random 446.0 mg/dL ()?? 04/05/2023 13:45 Protein, Urine Random 81 mg/dL (High)?? 04/05/2023 13:45 Protein, Total Urine Random 81 mg/dL ()?? 04/05/2023 13:45 TP/Cr Ratio 1.58 (High)?? 04/05/2023 13:45 Creatinine, Urine 51.0 mg/dL ()?? 04/05/2023 13:45 Est Creatinine Clearance 18.04 mL/min ()?? 04/06/2023 03:20 ? Assessment/Plan Assessment:??77-year-old [place]an-speaking lady with a PMH of severe aortic stenosis w/plan for TAVR, HFpEF (60-65% 07/2022), CAD, type 2 diabetes on insulin, HTN, HLD, COPD on 2L home O2, JOSE, spinalstenosis with neural claudication, PAD with bilateral SFA occlusion who presented on 04/03 in acute hy poxic and hypercapnic respiratory failure now being treated for CHF exacerbation in the setting of an underlying severe aortic stenosis and community acquired pneumonia. ?? Acute respiratory failure with hypoxia and hypercapnia, resolved Acute on chronic HFpEF?? Community acquired pneumonia COPD, not in exacerbation ?? Presented with sudden onset hypoxia with hypertension (unclear if HTN preceded hypoxia or occurred with respiratory distress) Patient on home O2 (2 liters) she is back at her baseline. ?Plan: ??- Afterload reduction with carvedilol and hydralazine, home meds ??-??Continue home torsemide 20mg BID tomorrow ??- Continue Ceftraixone, last dose will be tomorrow. ??- Wean O2 to home requirement of 2L with saturation target 88-92% ??- monitor strict I/Os, replete lytes as necessary. ??- Pending pulmonary rehab and physical therapy evaluation. ?? Severe aortic stenosis?Planned for TAVR,??patient was scheduled to have it in December but unfortunately her passedaway.??Has not yet been scheduled for another date for TAVR. ?Plan: ??- Continue to monitor HR, BP and cardiac function ??-??Notified [facility] cardiology that patient is hospitalized for close outpatient follow up, no need for inpatient consultation at the moment. ?? Hypertension?Initially was uncontrolled when checked at home with SBP 180s ??On presentation was better controlled after being placed on BiPAP ?? Plan: ??- continue carvedilol and amlodipine and hydralazine, home Meds ? Iron deficiency anemia Stable.?No??overt signs of bleeding. Patient??reports having a colonoscopy around a year ago, she says it was normal although was advised to have a repeat colonoscopy this year. She states that she??is following with GI in outpatient.? Plan: ??- Continue ferrous sulfate??325mg every other day. ??-??Transfuse if hemoglobin is less than 7 or hematocrit is less than 21%. ??- Continue to monitor H&H. ? ARLEY, improving CKD stage IIIb Serum creatinine baseline is around 1.3-1.5. Patients initial UA showed signs of glucosuria and albuminuria. TP/Cr ratio??was 1.58 although she did have an ARLEY and this could be overestimated.??This is likely in setting of diabetic nephropathy,would??recommend considering starting ARNOLDO-I/ARB in outpatient. ?? Plan: ??-??Continue to monitor electrolytes and renal function. ??- Avoid??NSAIDs and IV contrast. ??-??Encourage oral intake. ? Diabetes mellitus??type 2 ??- Continue lispro??sliding scale. ??-??Continue??Lantus 15 units at bedtime.? Coronary artery disease?No chest pain ??- continue aspirin, statin, beta adriel ? Dysphagia ??Patient complains of difficulty swallowing, with occasional cough while swallowing ??-??Evaluated??by ST with recommendations of regular diet with thin liquids; will continue diabetic diet with thin??liquids.? Quality Measures: ??Diet: Cardiac ??DVT prophylaxis: SQ heparin?Code Status: Full ? Patient case and plan discussed with Dr. Medel. ?Abhi Jenkins MD ?Internal Medicine PGY-2 * Stefanie Medel MD: PERFORM Event Display: Progress Note Hospital Authored Date: Attending Attestation: I have seen and evaluated this patient.?? I have discussed the case and its management with the resident and agree with the findings and plan as documented in the resident???s note. Note * Raad Greenfield RN: PERFORM Event Display: Discharge/Transfer Note Hospital Authored Date: [id number] Nursing Discharge Note Entered On: 04/07/2023 16:05 EDT Performed On: 04/07/2023 16:05 EDT by Raad Greenfield RN Nursing Discharge Note 2 Discharge Time : 04/07/2023 16:05 EDT Discharge Level of Care at Discharge : Homehealth/VNA Discharge VNA/Hospice/Home Care(v001) : [facility] [phone] Patient Left Unit Via : Wheelchair Patient Accompanied Off Unit with : Significant other DC Instructions Provided & Signed by Pt : Yes Patient Understands D/C Instructions : Yes Patient Instructions Discharge Signed : Yes Did Pt have Specialty Bed or Wound Vac : No Raad Greenfield RN - 04/07/2023 16:05 EDT * Stefanie Medel MD: Abhi Johnson MD: PERFORM Event Display: Discharge/Transfer Note Hospital Authored Date: [id number] Patient: ??MARTINEZ, IRIS ? Age:??77 Years?Sex:??Female?:??1945?? Patient Information Discharge Location: D6B Primary Care Physician: Turner Golden MD , Shelby Bear Admit Date/Time: 04/03/23 19:33 Discharge Disposition Discharge Disposition: Home with Home Health Discharge Diagnosis Microcytic anemia (D50.9) Acute respiratory failure with hypoxia and hypercapnia (J96.01) Chronic obstructive pulmonary disease (J44.9) Severe aortic stenosis (I35.0) Diabetes mellitus (E11.9) Coronary artery disease (I25.10) CHF exacerbation (I50.9) Hypertension (I10) Pneumonia (J18.9) Shortness of breath (R06.02) ?? _ Discharge Medications Amlodipine (amLODIPine 10 mg oral tablet)?1?tab(s)?10?Milligram?By Mouth?Daily Aspirin (aspirin 81 mg oral delayed release tablet)?81?Milligram?1?tablet?By Mouth?Daily at bedtime Atorvastatin (atorvastatin 40 mg oral tablet)?1?tab(s)?40?Milligram?By Mouth?Daily at bedtime Brimonidine Ophthalmic (brimonidine 0.2% ophthalmic solution)?1?Drops?Eyes, Both?2 times a day Carvedilol (carvedilol 25 mg oral tablet)?25?Milligram?1?tablet?By Mouth?2 times a day Cyanocobalamin (Vitamin B-12 1000 mcg oral tablet)?1,000?Microgram?1?tablet?By Mouth?Daily empagliflozin (empagliflozin 10 mg oral tablet)?1?tab(s)?10?Milligram?By Mouth?Daily in AM Ergocalciferol (Vitamin D 19006 iu oral capsule)?50,000?International Unit?1?capsule?By Mouth?Every week Ferrous Sulfate (ferrous sulfate 325 mg oral enteric coated tablet)?325?Milligram?By Mouth?Every other day?[place] luigi capsula cada otro jessica. fluticasone/umeclidinium/vilanterol (Trelegy Ellipta 200 mcg-62.5 mcg-25 mcg/inh inhalation powder)?1?puff(s)?Inhalation?Daily?at the same time every day Folic Acid (folic acid 1 mg oral tablet)?1?Milligram?1?tablet?By Mouth?Daily Gabapentin (gabapentin 300 mg oral capsule)?300?Milligram?1?capsule?By Mouth?Daily at bedtime hydrALAZINE (hydrALAZINE 25 mg oral tablet)?25?Milligram?1?tablet?By Mouth?2 times a day Insulin Aspart (NovoLOG FlexPen 100 units/mL injectable solution)?3?unit(s)?Subcutaneous Injection?3 times a day before meals?INJECT 5-10 UNITS SUBCUTANEOUSLY THREE TIMES DAILY DIRECTED Insulin Glargine (Toujeo SoloStar 300 units/mL subcutaneous solution)?34?unit(s)?Subcutaneous Injection?Daily in AM Latanoprost Ophthalmic (latanoprost 0.005% ophthalmic solution)?1?Drops?Eyes, Both?Daily in PM linagliptin (Tradjenta 5 mg oral tablet)?1?tab(s)?5?Milligram?By Mouth?Daily Montelukast (montelukast 10 mg oral tablet)?10?Milligram?1?tablet?By Mouth?Daily before dinner torsemide (torsemide 20 mg oral tablet)?1?tab(s)?20?Milligram?By Mouth?2 times a day?for 30?Days Medications Started Ferrous sulfate Medications Discontinued None Doses Changed None Allergies Allergies ?(Active and Proposed Allergies Only) Percocet 7.5/325? (Severity: Unknown severity, Onset: Unknown) ?Reactions: hallucinations Motrin? (Severity: Unknown severity, Onset: Unknown) ?Reactions: High BP ? PCP Follow-Up/Heads-Up Ms. Martinez was admitted for acute hypoxic and hypercarbic respiratory failure in setting of community acquired pneumonia and CHF exacerbation. She was evaluated by pulmonary rehab and she does notrequire oxygen supplementation; she was weaned off of it. Please continue to monitor her volume andrespiratory status. She does have iron deficiency anemia, was started on ferrous sulfate but will require additional work up in outpatient. She has severe aortic stenosis and requires further work upand TAVR. Hospital Course Ms. Martinez is a 77-year-old [place]-speaking woman with a medical history of severe aortic stenosis, HFpEF (LVEF 60 to 65% on 07/2022), CAD, insulin- dependent type 2 diabetes mellitus, hypertension, hyperlipidemia, COPD (on 2 L home oxygen), JOSE, spinal stenosis with neural claudication and PAD with bilateral SFA occlusions who presented to [facility] on 04/03 with a complaint of shortness of breath and was admitted for acute respiratory failure with hypoxia and hypercapnia in the setting of acute on chronic HFpEF and community-acquired pneumonia. She was treated with IV diuresis which was eventually transition to her home regimen of torsemide 20 mg twice a day. Her community-acquired pneumonia was treated with a 3-day course of azithromycin and 5 days of 1 g IV ceftriaxone. She resolution of shortness of breath and her respiratory status is back at baseline. She was evaluated by pulmonary rehabilitation therapist; she does not require oxygen supplementation. She was eventually weanedoff of oxygen supplementation and has been saturating 99 to 100% on room air. Work-up in the hospital did reveal a microcytic anemia secondary to iron deficiency, she was initiated on iron supplementation and states that she has a close follow-up in the outpatient setting with GI, no overt signs ofbleeding while in the hospital and her hemoglobin and hematocrit remained stable. Physical therapy e valuated her and recommended disposition of home with home services. She is hemodynamically stable not requiring oxygen supplementation. Stable for discharge with disposition to home with home services. ? Acute respiratory failure with hypoxia and hypercapnia, resolved Acute on chronic HFpEF Community acquired pneumonia COPD, not in exacerbation Successfully weaned off of oxygen, evaluated by pulmonary rehab; she does not require oxygen. IV diuresis was discontinued and she is back on her home regimen (torsemide 20 mg twice daily). Completed five day course of ceftriaxone and 3 days of azithromycin?Recommendations: ?-??Continue home??carvedilol and hydralazine ?- Continue home torsemide 20 mg twice daily.? - No indication to??continue home oxygen, re-evaluate in outpatient setting. ?- Follow up with PCP within 1-2 weeks. ? Severe aortic stenosis?? Follows up with Dr. James (cardiology in outpatient). Will be scheduled for follow up within 1-2 weeks for further TAVR plans.?Recommendations: ?-??Follow up with Dr. Jaems within 1-2 weeks. ? Hypertension?- Continue home??carvedilol and amlodipine and hydralazine ? Iron deficiency anemia ??Stable.??No overt signs of bleeding. Patient reports having a colonoscopy around a year ago, she says it was normal although was advised to have a repeat colonoscopy this year. She states that she is following with GI in outpatient.?Recommendations: ?- Continue ferrous sulfate 325mg every other day. ?-??Follow up with GI in outpatient. ?- Follow up with PCP within 1-2 weeks.? Diabetes mellitus type 2 ?-??Continue home regimen of empagliflozin, insulin aspart, insulin glargine and Tradjenta. ? Coronary artery disease?- Continue home??aspirin, statin, beta adriel ?- Follow up with cardiology in outpatient. ? ARLEY, resolved CKD stage IIIb - Follow up with PCP. ?? Dysphagia, resolved Objective Temperature?98 ?(12:10) Systolic Blood Pressure?144 ?(12:10) Diastolic Blood Pressure?43 ?(12:10) Pulse?59 ?(12:10) SpO2?98 ?(12:10) Respiratory Rate?20 ?(12:10) ?? . Physical Exam Constitutional:??Elderly female??in no acute??distress. Mental Status: Oriented to person, place and time. Head: Atraumatic/Normocephalic. Respiratory: Clear to auscultation bilaterally. No wheezing, rales??or rhonchi. Cardiovascular: S1 S2 regular. No murmurs, rubs or gallops. Extremities: No peripheral edema. Gastrointestinal: Abdomen soft, non-tender, non-distended. Normal bowel sounds. Genitourinary: No costovertebral angle tenderness. Neurologic: Cranial nerves II-XII grossly intact. No focal neurological deficits. Flexor?? Moves all extremities spontaneously. Skin: No rashes or lesions. No petechiae or purpura.?? Musculoskeletal: No cyanosis or clubbing. No gross deformities. Psychiatric: Normal mood and affect Pending Results Add On Lab Order ordered on 04/03/2023 Add On Lab Order ordered on 04/03/2023 Add On Lab Order ordered on 04/05/2023 Blood Culture ordered on 04/03/2023 Blood Culture #2 ordered on 04/03/2023 Patient Education Titles Heart Valve Problems: Aortic Stenosis?? Discharge Instructions for Heart Failure?? What is Heart Failure??? Pneumonia (Adult)?? Follow-Up Appointments Added Follow Up ?Time Frame ?Comments Turner Golden MD , [place]?1 to 2 weeks Patient Instructions Por favor nilson a aden doctor bailey dentro de 1-2 semanas. En el hospital se le trato para neumonia??y??exacerbacion de??insuficiencia cardiaca con antibioticos y diureticos. Usted fue evaluada porrehabilitacion pulmonar y usted NO necesita oxigeno. Recuerde llamar a la oficina del doctor Dr. James para que la evalueen acerca de aden estenosis aortica, ya se le notifico que usted estuvo en el hospital. Por favor tambien nilson a aden gastroenterologo y doctor bailey para que continuen evaluando aden anemia, aqui se le inicio un suplemento de nae: ferrous sulfate 325 mg, tome nancy medicamento cada otro jessica. Si tiene problemas para respirar, dolor de pecho, hinchazon de shantal piernas por favor llame al 911 o venga a emergencias. Home Health Face to Face *Denotes mandatory p[place]man ?? *I certify that this patient is under my care and that I or an allowed non- physician working with me had a face to face encounter with the patient on this date:??04/07/2023 13:33 ?? *The encounter with the patient was in whole, or in part, for the following medical condition, which is the primary diagnosis(es) for home health care:??Microcytic anemia (D50.9) Acute respiratory failure with hypoxia and hypercapnia (J96.01) Chronic obstructive pulmonary disease (J44.9) Severe aortic stenosis (I35.0) Diabetes mellitus (E11.9) Coronary artery disease (I25.10) CHF exacerbation (I50.9) Hypertension (I10) Pneumonia (J18.9) Shortness of breath (R06.02) ? *Select the indications for the discipline/s that are being arranged for this patient. Nursing (select all that apply): [_] None [X] Medication management (reconciliation, teaching)?? [X] Chronic disease management?? [_] Wound care and treatment?? [X] Home safety evaluation [_] Administer SQ/IM/IV medications?? [_] Cath care?? [_] Drain care?? [_] Trach or GT care?? Other _ Occupation Therapy (select all that apply): [_] None [_] ADL Management [_] Fall prevention training [_] Energy conservation [_] Cognitive training Other _ Physical Therapy (select all that apply): [_] None [X] Functional mobility training [X] Home exercise program to strengthen [X] Increase ROM?? [X] Falls prevention training [X] Home maintenance program for chronic disease Other _ Speech Therapy (select all that apply): [_] None [_] Swallow evaluation and training [_] Speech and language training [_] Cognitive training to process, organize, and/or recall information Other _ ? *Homebound due to (select all that apply): [X] Inability to leave home without assistance/supervision [_] Inability to ambulate without assistance [_] Pain [_] Decreased strength and endurance [X] Unsteady gait [_] Severe SOB and fatigue [_] Impaired transfers [_] Inability to negotiate stairs [_] Limited weight bearing [_] Mental status change? *Physician Signature:??Abhi??MD Gregory ?? *By signing this, I certify that I have personally evaluated the patient and agree with the findings and recommendations as documented above. Results Discharge Labs BLOOD COUNT & DIFF WBC 12.3 k/mm3 (High)?? 04/07/2023 01:23 RBC 3.71 m/mm3 (Low)?? 04/07/2023 01:23 Hgb 8.7 Gm/dL (Low)?? 04/07/2023 01:23 Hct 28.4 % (Low)?? 04/07/2023 01:23 MCV 76.5 femtoliters (Low)?? 04/07/2023 01:23 MCH 23.5 pg (Low)?? 04/07/2023 01:23 MCHC 30.6 g/dL (Low)?? 04/07/2023 01:23 Platelet Count 381 k/mm3 ()?? 04/07/2023 01:23 RDW-SD 50.4 femtoliters (High)?? 04/07/2023 01:23 MPV 9.5 femtoliters ()?? 04/07/2023 01:23 Nucleated RBC (Automated) 0.0 #/100 WBC'S ()?? 04/07/2023 01:23 Abs. NRBC 0.0 k/mm3 ()?? 04/07/2023 01:23 Abs. Neut 14.0 k/mm3 (High)?? 04/04/2023 01:23 Abs. Lymph 1.5 k/mm3 ()?? 04/04/2023 01:23 Abs. Fentress 0.8 k/mm3 ()?? 04/04/2023 01:23 Abs. Eo 0.1 k/mm3 ()?? 04/04/2023 01:23 Abs. Baso 0.1 k/mm3 ()?? 04/04/2023 01:23 Neut % 84.6 % (High)?? 04/04/2023 01:23 Lymph % 9.2 % (Low)?? 04/04/2023 01:23 Fentress % 4.9 % ()?? 04/04/2023 01:23 Eos % 0.5 % ()?? 04/04/2023 01:23 Baso % 0.3 % ()?? 04/04/2023 01:23 Hemoglobin (POC) POC Cartridge 11.2 Gm/dL (Low)?? 04/03/2023 15:08 Hematocrit (POC) POC Cartridge 33 % (Low)?? 04/03/2023 15:08 Imm Gran 0.5 % ()?? 04/04/2023 01:23 Abs. Imm Gran 0.1 k/mm3 ()?? 04/04/2023 01:23 ?? BLOOD GAS pH Venous (POC) POC Cartridge 7.27 (Low)?? 04/03/2023 15:08 pCO2 Venous (POC) POC Cartridge 53.1 mm Hg (High)?? 04/03/2023 15:08 pO2 Venous (POC) POC Cartridge 58 mm Hg (High)?? 04/03/2023 15:08 Est Bicarbonate (POC) POC Cartridge 24.3 mmol/L ()?? 04/03/2023 15:08 % O2 Sat Venous (POC) POC Cartridge 85 ()?? 04/03/2023 15:08 Base Excess (POC) POC Cartridge NEGATIVE 3 ()?? 04/03/2023 15:08 Specimen Type - Blood Gas VENOUS ()?? 04/03/2023 16:01 pH, Venous 7.31 (Low)?? 04/03/2023 16:01 pCO2, Venous 44 mm Hg ()?? 04/03/2023 16:01 pO2, Venous 64 mm Hg (High)?? 04/03/2023 16:01 Bicarbonate, Estimated(Venous) 22 mmol/L (Low)?? 04/03/2023 16:01 ? CARDIAC Nt-Probnp 2477 pg/mL (High)?? 04/03/2023 15:09 High Sensitivity Troponin (HSTnT) 29 ng/L (High)?? 04/03/2023 21:02 ?? CHEM GENERAL Sodium 141 mmol/L ()?? 04/07/2023 01:23 Potassium 3.7 mmol/L ()?? 04/07/2023 01:23 Chloride 103 mmol/L ()?? 04/07/2023 01:23 Bicarbonate Level 24 mmol/L ()?? 04/07/2023 01:23 Anion Gap 14 ()?? 04/07/2023 01:23 Sodium (POC) POC Cartridge 137 mmol/L ()?? 04/03/2023 15:08 Potassium (POC) POC Cartridge 4.3 mmol/L ()?? 04/03/2023 15:08 Glucose Level 144 mg/dL (High)?? 04/07/2023 01:23 Glucose (POC) POC Cartridge 273 (High)?? 04/03/2023 15:08 Glucose, POC 231 mg/dL (High)?? 04/07/2023 12:04 BUN 35 mg/dL (High)?? 04/07/2023 01:23 Creatinine-Blood 1.5 mg/dL (High)?? 04/07/2023 01:23 Estimated GFR Creatinine 35 ML/MIN/1.73 M2 ()?? 04/07/2023 01:23 Calcium 8.8 mg/dL ()?? 04/07/2023 01:23 Calcium, Ionized pH Corrected 1.18 mmol/L ()?? 04/03/2023 15:09 Ionized Calcium (POC) POC Cartridge 1.25 mmol/L ()?? 04/03/2023 15:08 Phosphorus 4.9 mg/dL (High)?? 04/04/2023 01:24 Magnesium 2.5 mg/dL (High)?? 04/04/2023 01:24 Protein, Total 6.9 Gm/dL ()?? 04/04/2023 01:24 Albumin 3.6 Gm/dL ()?? 04/04/2023 01:24 AG Ratio 1.1 ()?? 04/04/2023 01:24 Alkaline Phosphatase 170 units/L (High)?? 04/04/2023 01:24 Lipase 28 units/L ()?? 04/03/2023 17:12 AST (SGOT) 16 units/L ()?? 04/04/2023 01:24 ALT (SGPT) 17 units/L ()?? 04/04/2023 01:24 Bilirubin, Total 0.8 mg/dL ()?? 04/04/2023 01:24 Bilirubin, Direct 0.3 mg/dL ()?? 04/03/2023 19:22 Bilirubin, Indirect 0.4 mg/dL ()?? 04/03/2023 19:22 Lactate 1.1 mmol/L ()?? 04/03/2023 17:12 Iron Level 25 mcg/dL (Low)?? 04/05/2023 03:15 Iron Binding Capacity, Unsaturated 224 mcg/dL ()?? 04/05/2023 03:15 Iron Binding Capacity, Estimated Total 249 mcg/dL ()?? 04/05/2023 03:15 % Iron Saturation 10 % (Low)?? 04/05/2023 03:15 Ferritin Level 156 ng/mL ()?? 04/05/2023 03:15 ?? HEME OTHER Hold Blue Top SPECIMEN DISCARDED AFTER 4 HOURS. ()?? 04/03/2023 15:09 ? MISC. CHEMISTRY Hold Gel Top SPECIMEN DISCARDED AFTER 1 WEEK ()?? 04/03/2023 19:22 ? UA/URINALYSIS Appear/Color, Urine LIGHT YELLOW ()?? 04/05/2023 19:00 Specific Holton, Urine 1.010 ()?? 04/05/2023 19:00 pH, Urine 5.5 ()?? 04/05/2023 19:00 Albumin, Urine 1+ (Abnormal)?? 04/05/2023 19:00 Glucose, Urine 4+ (Abnormal)?? 04/05/2023 19:00 Ketones, Urine NEGATIVE ()?? 04/05/2023 19:00 Bilirubin, Urine NEGATIVE ()?? 04/05/2023 19:00 Hemoglobin, Urine NEGATIVE ()?? 04/05/2023 19:00 Nitrite, Urine NEGATIVE ()?? 04/05/2023 19:00 Leukocyte, Urine NEGATIVE ()?? 04/05/2023 19:00 Urobilinogen NORMAL mg/dL ()?? 04/05/2023 19:00 WBC's, Urine 5 /HPF ()?? 04/05/2023 19:00 RBC's, Urine NONE SEEN /HPF ()?? 04/05/2023 19:00 Bacteria SLIGHT HPF (Abnormal)?? 04/03/2023 17:56 Squamous Epith 1 /HPF ()?? 04/05/2023 19:00 Mucus SLIGHT /LPF ()?? 04/05/2023 19:00 Hold Urine Culture Testing available 48 hours from time of collection. ()?? 04/03/2023 17:56 ? URINE OTHER Creatinine, Urine Random 51.0 mg/dL ()?? 04/05/2023 13:45 Sodium, Urine Random 71 mmol/L ()?? 04/05/2023 13:45 Urea Nitrogen, Urine Random 446.0 mg/dL ()?? 04/05/2023 13:45 Protein, Urine Random 81 mg/dL (High)?? 04/05/2023 13:45 Protein, Total Urine Random 81 mg/dL ()?? 04/05/2023 13:45 TP/Cr Ratio 1.58 (High)?? 04/05/2023 13:45 Creatinine, Urine 51.0 mg/dL ()?? 04/05/2023 13:45 Est Creatinine Clearance 19.24 mL/min ()?? 04/07/2023 02:33 ?? VIROLOGY COVID-19 by RT-PCR NEGATIVE ()?? 04/03/2023 17:46 ? Microbiology ?? COVID-19 (Novel Coronavirus), Rapid PCR?? Completed?? Source: Nasal Body Site: Nose Collected Dt/Tm: 04/03/2023 17:44 Last Updated Dt/Tm: 04/03/2023 18:48 ?Patient case and plan discussed with ??Gianfranco. ?Abhi Jenkins MD ?Internal Medicine PGY-2 37??minutes spent on discharge * Stefanie Medel MD: PERFORM Event Display: Discharge/Transfer Note Hospital Authored Date: Attending Attestation: I have seen and evaluated this patient.?? I have discussed the case and its management with the resident and agree with the findings and plan as documented in the resident???s note. * Jeniffer Wolf RN: PERFORM, SIGN, VERIFY Event Display: Case Management Discharge Plan Authored Date: Patient: KHLOE MARTINEZ Age: 77 years Sex: Female : 1945 Associated Diagnoses: None Author: Jeniffer Wolf RN Discharge Plan Case Management Discharge Plan : Case Management Discharge Plan Data 04/07/2023 11:36 EDT Discharge Level of Care at Discharge Homehealth/VNA Discharge VNA/Hospice/Home Care [facility] [phone] Name of Agency #1 [facility] Name of Agency #1 [facility] Agency Revenue Field Auditor #1 intake Service Categories #1 Alf Service Comments #1 [facility] VNA will send a nnurse to see you at home Service Categories #2 Physical Therapy Service Comments #2 [facility] will send a physical therapist to see you at home * Raad Greenfield RN: PERFORM Event Display: Patient Education/Instruction Authored Date: [id number] Inpatient Adult Discharge Instructions [address] [id number] Name: KHLOE MARTINEZ : 1945 Visit: 04/03/2023 19:33:00 Current Date: 04/07/2023 15:31 Account: [id number] Inpatient Adult Discharge Instructions We would like to thank you for allowing us to assist you with your healthcare needs. The following includes patient education materials and information regarding your injury/illness. Our entire staffstrives to provide an excellent experience for our patients and their families. PLEASE ENSURE YOU FOLLOW-UP PER THE INSTRUCTIONS BELOW! ?? YOUR OPINION IS IMPORTANT TO US! Please complete the survey you may receive by mail or email. Your feedback will be used to make improvements to the healthcare experiences of our patients and their families. Surveys are administered by [employer] ?? If further treatment with your primary care physician or another doctor is recommended, it is important for you to keep the appointment. Call your primary care physician or return to the Emergency Department immediately if your condition worsens, fails to improve, or new symptoms develop. If you need to find a doctor, you can call [facility] for a referral at [phone] or toll free at [phone] or log in to [email or web address] ?? You can view and manage your care through the patient portal or by using a health care [place] of your choosing. [employer] is a website that allows you to securely view your medical information including your hospital discharge summary, office visit summaries, medications and follow-up visits. You can also request appointments, renew medications, and request access to your medical information using a health care [place] of your choosing, or just ask a question. You can enroll at [email or web address] or register during your next office visit. You have been discharged from [facility], Patient Care Unit: D6B. If you have any questions regarding these instructions after you leave, please call us and we will be happy to assist you. [facility] Your Care Team Attending Physician Stefanie Medel MD Discharging Providers Abhi Jenkins MD Reason for Admission General medical Your Diagnosis CHF exacerbation Pneumonia Hypertension Shortness of breath Microcytic anemia Acute respiratory failure with hypoxia and hypercapnia Chronic obstructive pulmonary disease Severe aortic stenosis Diabetes mellitus Coronary artery disease Tests Performed Below is a partial list of the tests performed during your hospitalization. You may have had other tests and procedures not included in this list. Please discuss all test results with your provider. BASE EXCESS POC CARTRIDGE Basic Metabolic Panel Blood Gas Venous Calcium Ionized CALCIUM IONIZED POC CART CBC CBC w/ Differential Comprehensive Metabolic Panel COVID-19 (Novel Coronavirus), Rapid PCR FERRITIN GLUCOSE POC GLUCOSE POC CARTRIDGE HEMATOCRIT POC CARTRIDGE HEMOGLOBIN POC CARTRIDGE HEPATIC FUNCTION PANEL High??Sensitivity??Troponin T HOLD BLUE TUBE HOLD GEL TUBE IRON & TIBC Lactate Level Lactic Acid Level LIPASE Magnesium Level Phosphorus Level Potassium Level POTASSIUM POC CARTRIDGE ProBNP SODIUM POC CARTRIDGE Sodium Urine Total Protein Urine Troponin T, High Sensitivity UA UREA NITROGEN, URINE MG/DL Urinalysis w/hold for Urine Culture Urine Creatinine Urine Protein/Creatinine Ratio VBG POC CARTRIDGE CXR Portable Primary Care Provider Turner Golden MD , [place] Advance Directive Health Care Proxy on File Yes - Health Care Proxy Discharge Vitals Temperature: 98 DegF Height: 145 cm Pulse Rate: 59 bpm Weight: 92 kg Respiratory Rate: 20 br/min Body Mass Index:??44.38 kg/m2??Critical Systolic Blood Pressure:??144 mm Hg??High Body surface area: 1.94 Diastolic Blood Pressure:??43 mm Hg??Low ?? Oxygen Saturation: 98 % ?? Studies Pending All tests and labs ordered during this hospital stay have been completed unless listed below. Please discuss all pending results with your provider listed above in these instructions. ?? Add On Lab Order Blood Culture Blood Culture #2 What to do next Instructions From Your Doctor Por favor nilson a aden doctor bailey dentro de 1-2 semanas. En el hospital se le trato para neumonia??y??exacerbacion de??insuficiencia cardiaca con antibioticos y diureticos. Usted fue evaluada porrehabilitacion pulmonar y usted NO necesita oxigeno. Recuerde llamar a la oficina del doctor Dr. aJmes para que la evalueen acerca de aden estenosis aortica, ya se le notifico que usted estuvo en el hospital. Por favor tambien nilson a aden gastroenterologo y doctor de robin para que continuen evaluando aden anemia, aqui se le inicio un suplemento de nae: ferrous sulfate 325 mg, tome nancy medicamento cada otro jessica. Si tiene problemas para respirar, dolor de pecho o??hinchazon de shantal kaitlinnas por favor llame al 911 o venga a emergencias. Discharge Orders You Need to Schedule the Following Appointments Follow Up with??Turner Golden MD , [place] When:??Within 1 to 2 weeks Where: [address] [place] [address]- Discharge Medications KHLOE MARTINEZ :1945 Visit Date:04/03/2023 Medications: Please continue your medications until treatment is completed or stopped by your provider. Medications not listed below should be discontinued. Discuss any questions related to medications with your provider. What How Much When Instructions Next Dose New Ferrous Sulfate (ferrous sulfate 325 mg oral enteric coated tablet) 325 Milligram Oral Every other day [place] luigi capsula cada otro jessica. ?? Pickup at [place] [address] tomorrow 8am Changed torsemide (torsemide 20 mg oral tablet) 1 tab(s) Oral Twice a day Duration: 30 Days tomorrow 8am and 4pm Unchanged Amlodipine (amLODIPine 10 mg oral tablet) 1 tab(s) Oral Daily Unchanged Aspirin (aspirin 81 mg oral delayed release tablet) 1 tab(s) Oral Daily at Bedtime Unchanged Atorvastatin (atorvastatin 40 mg oral tablet) 1 tab(s) Oral Daily at Bedtime Unchanged Brimonidine Ophthalmic (brimonidine 0.2% ophthalmic solution) 1 Drops Both eyes Twice a day Unchanged Carvedilol (carvedilol 25 mg oral tablet) 1 tab(s) Oral Twice a day Unchanged Cyanocobalamin (Vitamin B-12 1000 mcg oral tablet) 1 tab(s) Oral Daily Unchanged empagliflozin (empagliflozin 10 mg oral tablet) 1 tab(s) Oral Daily in the morning Unchanged Ergocalciferol (Vitamin D 24208 iu oral capsule) 50,000 International Unit Oral Every week Unchanged fluticasone/ umeclidinium/ vilanterol (Trelegy Ellipta 200 mcg-62.5 mcg-25 mcg/ inh inhalation powder) 1 puff(s) Inhalation Daily at the same time every day ?? Unchanged Folic Acid (folic acid 1 mg oral tablet) 1 tab(s) Oral Daily Unchanged Gabapentin (gabapentin 300 mg oral capsule) 1 capsule Oral Daily at Bedtime Unchanged hydrALAZINE (hydrALAZINE 25 mg oral tablet) 1 tab(s) Oral Twice a day Unchanged Insulin Aspart (NovoLOG FlexPen 100 units/ mL injectable solution) 3 unit(s) Subcutaneous Injection 3 times a day before meals INJECT 5-10 UNITS SUBCUTANEOUSLY THREE TIMES DAILY DIRECTED ?? Unchanged Insulin Glargine (Toujeo SoloStar 300 units/ mL subcutaneous solution) 34 unit(s) Subcutaneous Injection Daily in the morning Unchanged Latanoprost Ophthalmic (latanoprost 0.005% ophthalmic solution) 1 Drops Both eyes Daily in PM Unchanged linagliptin (Tradjenta 5 mg oral tablet) 1 tab(s) Oral Daily Unchanged Montelukast (montelukast 10 mg oral tablet) 1 tab(s) Oral Daily before dinner Pharmacy Information [facility] 3: [address] [place] [address], [place] [id number] [phone] Test Results Below is a partial list of the most recent Laboratory test results done prior to this discharge. You may have had other tests and procedures not included in this list. Please discuss all test resultswith your provider. Est Creatinine Clearance - 19.24 mL/min (04/07/2023) BASE EXCESS POC CARTRIDGE (04/03/2023) ???Base Excess (POC) POC Cartridge - NEGATIVE 3 Basic Metabolic Panel (04/07/2023) ???Sodium - 141 mmol/L???Potassium - 3.7 mmol/L???Chloride - 103 mmol/L???Bicarbonate Level - 24 mmol/L???Anion Gap - 14???Glucose Level - 144 mg/dL???BUN - 35 mg/dL???Creatinine-Blood - 1.5 mg/dL???Estimated GFR Creatinine - 35 ML/MIN/1.73 M2???Calcium - 8.8 mg/dL Blood Gas Venous (04/03/2023) ???Specimen Type - Blood Gas - VENOUS???pH, Venous - 7.31???pCO2, Venous - 44 mm Hg???pO2, Venous -64 mm Hg???Bicarbonate, Estimated(Venous) - 22 mmol/L Calcium Ionized (04/03/2023) ???Calcium, Ionized pH Corrected - 1.18 mmol/L CALCIUM IONIZED POC CART (04/03/2023) ???Ionized Calcium (POC) POC Cartridge - 1.25 mmol/L CBC (04/07/2023) ???WBC - 12.3 k/mm3???RBC - 3.71 m/mm3???Hgb - 8.7 Gm/dL???Hct - 28.4 %???MCV - 76.5 femtoliters???MCH - 23.5 pg???MCHC - 30.6 g/dL???Platelet Count - 381 k/mm3???RDW-SD - 50.4 femtoliters???MPV - 9.5 femtoliters???Nucleated RBC (Automated) - 0.0 #/100 WBC'S???Abs. NRBC - 0.0 k/mm3 CBC w/ Differential (04/04/2023) ???WBC - 16.5 k/mm3???RBC - 4.29 m/mm3???Hgb - 9.9 Gm/dL???Hct - 32.2 %???MCV - 75.1 femtoliters???MCH - 23.1 pg???MCHC - 30.7 g/dL???Platelet Count - 392 k/mm3???RDW-SD - 50.2 femtoliters???MPV - 9.4 femtoliters???Nucleated RBC (Automated) - 0.0 #/100 WBC'S???Abs. NRBC - 0.0 k/mm3???Abs. Neut - 14.0 k/mm3???Abs. Lymph - 1.5 k/mm3???Abs. Fentress - 0.8 k/mm3???Abs. Eo - 0.1 k/mm3???Abs. Baso - 0.1 k/mm3???Neut % - 84.6 %???Lymph % - 9.2 %???Fentress % - 4.9 %???Eos % - 0.5 %???Baso % - 0.3 %???Imm Gran- 0.5 %???Abs. Imm Gran - 0.1 k/mm3 Comprehensive Metabolic Panel (04/04/2023) ???Sodium - 142 mmol/L???Potassium - 4.0 mmol/L???Chloride - 104 mmol/L???Bicarbonate Level - 24 mmol/L???Anion Gap - 14???Glucose Level - 138 mg/dL???BUN - 36 mg/dL???Creatinine-Blood - 1.7 mg/dL???Estimated GFR Creatinine - 31 ML/MIN/1.73 M2???Calcium - 9.2 mg/dL???Protein, Total - 6.9 Gm/dL???Alb umin - 3.6 Gm/dL???AG Ratio - 1.1???Alkaline Phosphatase - 170 units/L???AST (SGOT) - 16 units/L???ALT (SGPT) - 17 units/L???Bilirubin, Total - 0.8 mg/dL COVID-19 (Novel Coronavirus), Rapid PCR (04/03/2023) ???COVID-19 by RT-PCR - NEGATIVE FERRITIN (04/05/2023) ???Ferritin Level - 156 ng/mL GLUCOSE POC (04/07/2023) ???Glucose, POC - 231 mg/dL GLUCOSE POC CARTRIDGE (04/03/2023) ???Glucose (POC) POC Cartridge - 273 HEMATOCRIT POC CARTRIDGE (04/03/2023) ???Hematocrit (POC) POC Cartridge - 33 % HEMOGLOBIN POC CARTRIDGE (04/03/2023) ???Hemoglobin (POC) POC Cartridge - 11.2 Gm/dL HEPATIC FUNCTION PANEL (04/03/2023) ???Protein, Total - 6.4 Gm/dL???Albumin - 3.2 Gm/dL???Alkaline Phosphatase - 160 units/L???AST (SGOT) - 18 units/L???ALT (SGPT) - 17 units/L???Bilirubin, Total - 0.7 mg/dL???Bilirubin, Direct - 0.3 mg/dL???Bilirubin, Indirect - 0.4 mg/dL High??Sensitivity??Troponin T (04/03/2023) ???High Sensitivity Troponin (HSTnT) - 22 ng/L HOLD BLUE TUBE (04/03/2023) ???Hold Blue Top - SPECIMEN DISCARDED AFTER 4 HOURS. HOLD GEL TUBE (04/03/2023) ???Hold Gel Top - SPECIMEN DISCARDED AFTER 1 WEEK IRON & TIBC (04/05/2023) ???Iron Level - 25 mcg/dL???Iron Binding Capacity, Unsaturated - 224 mcg/dL???Iron Binding Capacity, Estimated Total - 249 mcg/dL???% Iron Saturation - 10 % Lactate Level (04/03/2023) ???Lactate - 2.6 mmol/L Lactic Acid Level (04/03/2023) ???Lactate - 1.1 mmol/L LIPASE (04/03/2023) ???Lipase - 28 units/L Magnesium Level (04/04/2023) ???Magnesium - 2.5 mg/dL Phosphorus Level (04/04/2023) ???Phosphorus - 4.9 mg/dL Potassium Level (04/03/2023) ???Potassium - 4.7 mmol/L POTASSIUM POC CARTRIDGE (04/03/2023) ???Potassium (POC) POC Cartridge - 4.3 mmol/L ProBNP (04/03/2023) ???Nt-Probnp - 2477 pg/mL SODIUM POC CARTRIDGE (04/03/2023) ???Sodium (POC) POC Cartridge - 137 mmol/L Sodium Urine (04/05/2023) ???Sodium, Urine Random - 71 mmol/L Total Protein Urine (04/05/2023) ???Protein, Urine Random - 81 mg/dL Troponin T, High Sensitivity (04/03/2023) ???High Sensitivity Troponin (HSTnT) - 29 ng/L UA (04/05/2023) ???Appear/Color, Urine - LIGHT YELLOW???Specific Holton, Urine - 1.010???pH, Urine - 5.5???Albumin, Urine - 1+???Glucose, Urine - 4+???Ketones, Urine - NEGATIVE???Bilirubin, Urine - NEGATIVE???Hemoglobin, Urine - NEGATIVE???Nitrite, Urine - NEGATIVE???Leukocyte, Urine - NEGATIVE???Urobilinogen - NORMAL???WBC's, Urine - 5 /HPF???RBC's, Urine - NONE SEEN???Squamous Epith - 1 /HPF???Mucus - SLIGHT UREA NITROGEN, URINE MG/DL (04/05/2023) ???Urea Nitrogen, Urine Random - 446.0 mg/dL Urinalysis w/hold for Urine Culture (04/03/2023) ???Appear/Color, Urine - LIGHT YELLOW???Specific Holton, Urine - 1.012???pH, Urine - 6.0???Albumin, Urine - 2+???Glucose, Urine - 4+???Ketones, Urine - NEGATIVE???Bilirubin, Urine - NEGATIVE???Hemoglobin, Urine - NEGATIVE???Nitrite, Urine - NEGATIVE???Leukocyte, Urine - 3+???Urobilinogen - NORMAL???WBC's, Urine - 35 /HPF???RBC's, Urine - NONE SEEN???Bacteria - SLIGHT???Squamous Epith - 2 /HPF???Hold Urine Culture - Testing available 48 hours from time of collection. Urine Creatinine (04/05/2023) ???Creatinine, Urine Random - 51.0 mg/dL Urine Protein/Creatinine Ratio (04/05/2023) ???Protein, Total Urine Random - 81 mg/dL???TP/Cr Ratio - 1.58???Creatinine, Urine - 51.0 mg/dL VBG POC CARTRIDGE (04/03/2023) ???pH Venous (POC) POC Cartridge - 7.27???pCO2 Venous (POC) POC Cartridge - 53.1 mm Hg???pO2 Venous(POC) POC Cartridge - 58 mm Hg???Est Bicarbonate (POC) POC Cartridge - 24.3 mmol/L???% O2 Sat Venous (POC) POC Cartridge - 85???Specimen Type - Blood Gas - VENOUS Allergies (NKA means No Known Allergies) Motrin??(High BP) Percocet 7.5/325??(hallucinations) Problems Active Problems??(6) Asthma?? Cardiac catheterization?? Diabetes mellitus?? Hyperlipidemia?? Hypertension?? Severe obesity?? Education Materials Below is the list of Educational Leaflet Providered with your Discharge Instructions. Heart Valve Problems: Aortic Stenosis?? Discharge Instructions for Heart Failure?? What is Heart Failure??? Pneumonia (Adult)?? Valuables and Belongings I fully understand and agree that [facility] accepts no responsibility for all my personal property including clothing, toilet articles, radios, jewelry, dentures, hearing aids, rings, money, or any other property that is in my possession or is brought to me after admission. I understand certain valuables may be placed in a hospital safe for a short period of time. I understand that the hospital is not liable for loss or damage due to accident, fire, or other natural occurrence while said property is in the safe. I accept full responsibility for any personal property that I keep with me, and will not hold the hospital responsible in case of loss or disappearance. I acknowledge that i have been encouraged to send valuables and belongings home. ?? Review of Valuable and Belonging List: With patient, With family Date for Pt to Sign Valuables/Belongings: 04/03/23 20:36:00 ?? Other Discharge Information ? Case Management Discharge Plan?? Discharge Plan?? Discharge Agency Information?? Discharge Level of Care at Discharge: Homehealth/VNA Name of Agency #1: [facility] Discharge VNA/Hospice/Home Care: [facility] [phone] Name of Agency #1: [facility] ?? Agency Revenue Field Auditor #1: intake ?? Service Categories #1: Alf ?? [facility] ?? Service Categories #2: Physical Therapy ?? Service Comments #2: [facility] will send a physical therapist to see you at home ?? Pulmonary Rehab Status?? Pulmonary Rehab Discharge Status?? CPAP/BiPAP Mask Type: Full CPAP/BiPAP Mask Size: Small Respiratory Rate: 20 br/min ? Common Emergency Awareness Tips IS IT A STROKE? Act FAST and Check for these signs: FACE Does the face look uneven? ARM Does one arm drift down? SPEECH Does their speech sound strange? TIME Call at any sign of stroke ?? Heart Attack Signs Chest discomfort: Most heart attacks involve discomfort in the center of the chest and lasts more than a few minutes, or goes away and comes back. It can feel like uncomfortable pressure, squeezing, fullness or pain. Discomfort in upper body: Symptoms can include pain or discomfort in one or both arms, back, neck, jaw or stomach. Shortness of breath: With or without discomfort. Other signs: Breaking out in a cold sweat, nausea, or lightheaded. Remember, MINUTES DO MATTER. If you experience any of these heart attack warning signs, call to get immediate medical attention! ?? Smoking can increase your chances of developing chronic health problems and can cause harmful effects to other family members in your house. If you smoke, you are strongly encouraged to quit. Please call [facility] at [phone] or [phone] ([phone]) or log in to [email or web address] for referrals to smoking cessation programs. ?? 891 Suicide & Crisis Lifeline is available 26/04 if you or someone you know needs to find a reason to keep living. By calling 051 you'll be connected to a skilled, trained counselor at a crisis center in your area. INPATIENT DISCHARGE INSTRUCTIONS SIGNATURE PAGE KHLOE MARTINEZ Location:[facility] Registration Date and Time:04/03/2023 19:33 EDT Primary Care Physician: Turner Golden MD , Shelby Bear, Attending Physician: Stefanie Medel MD, I KHLOE MARTINEZ, have received the above patient education materials/instructions and have verbalized understanding. If ambulance or transport services are being used I further acknowledge being given a choice of service. ?? If you need to contact me, please call me at this number: . Patient/Boat Joiner Helper Name: Patient/Boat Joiner Helper Signature: Relationship to Patient: Witness Name/Signature: Date: * Abhi Jenkins MD: PERFORM Event Display: Patient Education Leaflets Authored Date: [id number] Heart Valve Problems: Aortic Stenosis ?? 86426 Problemas en las v??lvulas del coraz??n: estenosis a??rtica La estenosis a??rtica ocurre cuando la v??lvula a??rtica tiene problemas para abrirse. El ventr??culo sami tiene que realizar un mayor esfuerzo para bombear la naila a travis??s de la v??lvula. En algunos casos, nancy esfuerzo adicional hace que el m??sculo del ventr??culo se vuelva m??s grueso y, con el paso del tiempo, puede sobrecargar al coraz??n y hacer que el m??sculo se debilite. La estenosis suele empeorar lentamente con el paso de los a??os, walter, en ocasiones, puede empeorar r??pidamente. V??vula a??rtica abierta con estenosis (visto desde arriba) Elinor transversal del coraz??n que muestra luigi v??lvula a??rtica con estenosis. Posibles causas Con el paso de los a??os, pueden formarse dep??sitos de calcio en la v??lvula a??rtica, los cuales producen endurecimiento y dificultad para abrir. En algunos casos, la v??lvula a??rtica es anormal de nacimiento. En otros, puede ser causado por un episodio de fiebre reum??daniel o por luigi infecci??n al coraz??n. ?? Tratamiento de la estenosis a??rtica En muchos casos no se requiere tratamiento a menos que haya s??ntomas. Cuando los hay, es posible aliviarlos con medicamentos. Si la estenosis es grave, es posible que el m??dico recomiende luigi operaci??n para cambiar la v??lvula, incluso si no hay s??ntomas presentes. ?? Last Reviewed Date: 2021 ?? 1834-1432 [employer]. Todos los derechos reservados. Esta informaci??n no pretende sustituir la atenci??n m??dica profesional. S??lo aden m??dico puede diagnosticar y tratar un problema de daniela. ?? * Gregory Abhi VORA: PERFORM Event Display: Patient Education Leaflets Authored Date: [id number] Discharge Instructions for Heart Failure ?? 15321 Instrucciones de elizabeth para la insuficiencia card??jaun El coraz??n es un m??sculo que bombea naila oxigenada a todas partes del cuerpo. Cuando sufre luigi insuficiencia card??jaun, el coraz??n no es capaz de bombear olga deber??a. La naila y los l??quidospueden retroceder hacia los pulmones. Algunas partes del cuerpo no reciben la cantidad suficiente de naila oxigenada para funcionar con normalidad. Estos problemas causan los s??ntomas de la insuficiencia card??jaun. La insuficiencia card??jaun puede ocurrir por luigi lesi??n en el coraz??n o por procesos naturales.??Puede controlar los s??ntomas de luigi insuficiencia card??jaun haciendo cambios en suestilo de kentrell y siguiendo las indicaciones que le d?? aden m??dico. Actividad f??brad Pregunte al proveedor de atenci??n m??dica sobre un programa de ejercicios. Algunas actividades sencillas, olga caminar o hacer jardiner??a, pueden ayudarlo. Hacer ejercicio f??sico lizette todos los d??as de la semana puede hacer que se sienta mejor. No se desaliente si aden avance es lento al principio. Descanse lo necesario. Detenga la actividad si presenta s??ntomas, olga dolor de pecho, aturdimiento o falta de aire. Busque actividades que disfrute. Por ejemplo, caminar a paso ligero, bailar, nadar y hacer jardiner??a. Estas actividades lo ayudar??n a mantenerse activo y fortalecer el coraz??n. Consulte con aden proveedor de atenci??n m??dica acerca de seguir un programa de rehabilitaci??n card??jaun. Un programa de nancy tipo lo ayudar?? a ejercitarse de forma vaughan. ?? Dieta Siga luigi dieta kaylynn para el coraz??n. Esfu??rcese por limitar el consumo de rell (sodio) en shantal comidas. La rell hace que aden cuerpo retenga agua. Turah hace que el coraz??n trabaje m??s porque hay m??s l??quido para bombear. Para consumir menos rell, corky olga se lo indic?? el proveedor de atenci??n m??dica, puede hacer lo siguiente: ??? Limite el consumo de alimentos enlatados, secos, envasados y de preparaci??n r??pida. ??? No agregue rell a aden comida. ??? Sazone las comidas con hierbas en lugar deusar rell. ??? Cuide la cantidad de l??quidos que sheryl. Si sheryl demasiada cantidad de l??quidos, esopuede empeorar aden insuficiencia card??jaun. Consulte con aden proveedor de atenci??n m??dica cu??nto debe beber por d??a. ??? Reduzca el consumo de bebidas alcoh??licas. Pueden ser perjudiciales para sucoraz??n. Las mujeres no deber??an monica m??s de luigi bebida alcoh??lica al d??a. Los hombres no deber??an monica m??s de dos bebidas alcoh??licas al d??a. ??? Cuando salga a comer, pida que aden comida no tenga rell agregada. ??? Consulte con aden proveedor de atenci??n m??dica antes de usar estos sustitutos de la rell. Suelen tener potasio. Puede ser perjudicial para la daniela. Turah depender?? de qu?? moser ludwin funcionen shantal ri??ones y de los medicamentos que est?? usando. Algunas personas necesitan potasio adicional. Otros no. ?? Tabaco Es importante dejar de fumar si fuma. Fumar aumenta el riesgo de sufrir un ataque al coraz??n ya que da??a los vasos sangu??neos que llevan ox??marcus al coraz??n. De esta manera, puede empeorar aden insuficiencia card??jaun. Dejar de fumar es lo m??s importante que puede hacer para mejorar aden daniela. Inscr??base en un programa para dejar de fumar a fin de aumentar shantal probabilidades de ??xito. Consulte con aden proveedor de atenci??n m??dica acerca de medicamentos o la terapia de reemplazo de nicotina. Tambi??n preg??ntele acerca de los grupos de apoyo para dejar de fumar. ?? Medicamentos [place] shantal medicamentos exactamente seg??n lo que le hayan indicado. Aprenda el nombre y el prop??sito de cada maxim de shantal medicamentos. Lleve siempre con usted luigi lista precisa de shantal medicamentos, que incluya las dosis que keo actualmente de cada maxim. No omita ninguna dosis. Si se olvida luigi dosisde aden medicamento, debe ingerirla moser pronto se d?? cuenta del olvido. Si se saltea luigi dosis y ya es la hora de la dosis siguiente, espere y tome la dosis siguiente a la hora que le corresponde. No tome luigi dosis doble. Si no est?? seguro, llame al consultorio de aden m??dico. Aseg??rese de que no mezclar shantal medicamentos y tampoco se olvide lo que kari?? shade d??a. Restablezca aden receta antes de que se acabe el medicamento. Hable con aden proveedor de atenci??n m??dica si tiene dificultades para pagar los medicamentos. ?? Controle aden peso Controle aden peso todos los d??as. Un aumento de peso repentino puede indicar que la insuficiencia card??jaun est?? empeorando. Controle aden peso a la misma hora cada d??a y con el mismo tipo de ropa. Lo ideal ser??a que se pese en cuanto se levante por la ma??shelby, despu??s de keyla vaciado aden vejiga,walter antes de monica el desayuno. El proveedor de atenci??n m??dica le mostrar?? c??mo hacer un astrid miento del peso. Tambi??n le dir?? si debe llamar en ashely de un aumento repentino e inesperado de peso. Por lo general, es posible que el proveedor de atenci??n m??dica le pida que informe aumentos de peso de m??s de 900??gramos (2??libras) en 1??d??a, 2.25??kg (5??libras) en 1??semana, o el aumento depeso que el m??dico le indic?? que informara.. Nancy es un signo de que est?? reteniendo m??s l??quido del que deber??a. Los indicios de aumento de peso incluyen controlar la hinchaz??n de los tobillos o notar luigi dificultad para respirar al acostarse. ?? Seguimiento Vaya a las visitas de control seg??n las instrucciones. Seg??n el tipo y la gravedad de la insuficiencia card??jaun que tenga, es posible que necesite un seguimiento dentro de los 7??d??as posterioresal elizabeth hospitalaria. Cumpla shantal citas de chequeos y an??lisis de laboratorio para jessica si shantal medicamentos est??n funcionando ludwin y para jessica c??mo est?? aden daniela. Debe entender que aden daniela e incluso aden kentrell dependen de que siga las recomendaciones del proveedor. ?? S??ntomas La insuficiencia card??jaun puede causar luigi variedad de s??ntomas. Por ejemplo: ??? Falta de aire ??? Problemas para respirar por la noche, especialmente cuando se acuesta ??? Hinchaz??n de las piernas y los pies, o el abdomen ??? Sensaci??n de cansancio con facilidad ??? Ritmo card??aco acelerado o irregular ??? Debilidad o aturdimiento ??? Hinchaz??n de las venas del juan Es importante que sepa qu?? hacer si nota que los s??ntomas empeoran o si presenta s??ntomas de agravamiento de la insuficiencia card??jaun. Clarissa un seguimiento de c??mo se siente a diario. Informe cualquier cambio al proveedor de atenci??n m??dica. ?? Cu??ndo llamar a aden proveedor de atenci??n m??dica Llame al proveedor de atenci??n m??dica de inmediato si presenta alguno de los siguientes s??ntomasde que la insuficiencia card??jaun est?? empeorando: ??? Aumento repentino de peso. Turah significa m??s de 900??gramos (2??libras) en 1??d??a o m??s de 2.25??kilos (5??libras) en 1??semana, o el aumento de peso que el m??dico le indic?? que informara. ??? Dificultades para respirar no relacionadas con la actividad f??brad ??? Hinchaz??n nueva o en aumento en las piernas o los tobillos ??? Hinchaz??n o dolor en el abdomen ??? Dificultad para respirar ming la noche. Se despierta sin aire o necesita recostarse sobre m??s almohadas para poder respirar. ??? Tos frecuente que no desaparece ??? Sie nte mucho m??s cansancio de lo habitual ?? Cu??ndo llamar al?? 911 Llame al 911 de inmediato si tiene: ??? Falta de aire, olga imposibilidad de respirar ludwin aun estando en reposo ??? Dolor lucero en el pecho que no se sergey con descanso ni con nitroglicerina ??? Falta de aire con mucosidad rosada y con espuma al toser ??? Ritmo card??aco r??pido o irregular lee ann ??? Desmayo o p??rdida del conocimiento ??? S??ntomas de derrame cerebral, olga entumecimientoo debilidad repentinos en un lado de la laquita, un brazo o luigi pierna; o si de repente siente confusi??n, tiene problemas para hablar o nota cambios en la visi??n ?? Last Reviewed Date: 2021 ?? 1811-5535 [employer]. Todos los derechos reservados. Esta informaci??n no pretende sustituir la atenci??n m??dica profesional. S??lo aden m??dico puede diagnosticar y tratar un problema de daniela. ?? * Abhi Jenkins MD: PERFORM Event Display: Patient Education Leaflets Authored Date: [id number] What is Heart Failure?Qu?? es la Insuficiencia Card??jaun? - Video Aprenda olga debilita la insuficiencia card??jaun el coraz??n y la manera en que la insuficiencia card??jaun afecta aden cuerpo. To view the video go to this web address: [email or web address] Or, scan this QR code with your smart phone ?? [facility] ?? Patient Care team information Care Team Personnel Name: Maryann Zavala RN Position: S RN Member Role: Primary Care Nurse Name: Marielle Tolbert RN Position: S RN Member Role: Primary Care Nurse Name: Turner Golden MD , Shelby Bear Position: Reference Physician Member Role: PCP Address: Address: [address] [place] [address] [address] [place], [place] - Name: Yashira Loyola MD Position: [facility] ED Medicine MD Member Role: ED Attending Physician Address: Address: [address] [place] [id number]- Name: Braden Manzano DO Position: [facility] Resident Member Role: Resident Address: Address: [address] [place] [id number]- Name: Alycia Mullins RN Position: [facility] ED RN W/OE and Tasks Member Role: Patient Care Provider Name: Jackie Hammonds DO Position: [facility] Resident Member Role: ED Resident Address: Address: [address] [place] [id number]- Care Team Related Persons Name: VENKATA NASSAR Address: home [address] Name: IWONA TABARES Address: home [address], [place]
--- OUTSIDE RECORDS SUMMARY | 2024-04-11 12:09 | XMS_ITS | Continuity of Care Document ---
Author Organization [facility] ter Address [address] [place] [address]- Care Team Providers Care Battery Assembler Name Role Phone Preston VORA, Daniel Garcia Primary Care Physi will Encounter [facility] Date(s): 07/30/22 - 08/03/[address] [address]- Discharge Disposition: A-D/C Home Attending Physician: Bc Braga MD Admitting Physician: Lyndsay Viera MD Referring Physician: Lyndsay Viera MD Allergies, Adverse Reactions, Alerts Substance Reaction [...] Start Date: 07/30/22 Status: Ordered Vitamin D 81589 iu oral capsule 50,000 International_Units, 1, capsule, By Mouth, Every week, Refills 0, Maintenance, 06/23/18 7:02:38 EDT Start Date: 06/23/18 Status: Ordered Problem List Condition Confirmation Course Effective Dates Status H ealth Status Informant Asthma Confirmed Active Cardiac catheterization Confirmed Active Diabetes mellitus Confirmed Active Hyperlipidemia Confirmed Active Hypertension Confirmed Active Obese class II Confirmed Active Results Radiology Reports * Exam Date Time Procedure Performing Provider Status 07/31/22 2:59 PM Chest Portable [place]; Auth ( Verified) Notes: (Chest Portable) Reason For Exam: Shortness of Breath RESULT: Chest Portable Chest Portable Reason: Shortness of Breath; Clinical Question(s): CHF COMPARISON: 09/01/2010. FINDINGS: LINES AND TUBES: None. LUNGS AND PLEURA: Mild focal opacity in the right costophrenic phrenic angle with obscuration of the diaphragm. No pleural effusion. No pneumothorax. HEART, MEDIASTINUM AND ANA: Heart is normal in size. Mildly prominent in size central pulmonary arteries, unchanged. BONES AND SOFT TISSUES: No acute abnormality. IMPRESSION: Mild focal opacity in the right costophrenic phrenic angle with obscuration of the diaphragm. This can represent atelectasis or infection. WSN: [id number] Ordering Physician: Bc Braga Dictated By: Dilcia Philip MD Dictated Date/Time: 07/31/22 3:33 pm Reviewed By: Dilcia Philip MD Signed By: Dilcia Philip MD Signed Date/Time: 07/31/22 3:33 pm Transcribed By: LESLYE Transcribed Date/Time: 07/31/22 3:19 pm Vital Signs Most recent to oldest [Reference Range]: 1 2 3 Height 158 cm (08/03/22 2:10 AM) 158 cm (08/02/22 8:31 PM) 158 cm (08/02/22 8:28 PM) Weight 92.9 kg (08/03/22 2:10 AM) 92.6 kg (08/02/22 1:59 AM) 99.6 kg (08/01/22 3:00 AM) Oxygen Saturation [94-100 %] 96 % (08/03/22 2:00 PM) 93 % *L* (08/03/22 11:00 AM) 97 % (08/03/22 2:10 AM) Pulse Rate [55-90 bpm] 56 bpm (08/03/22 2:00 PM) 66 bpm (08/03/22 11:00 AM) 59 bpm (08/03/22 2:10 AM) Body Mass Index [18.5-24.99 kg/m2] 37.21 kg/m2 *>HHI* (08/03/22 2:10 AM) 37.09 kg/m2 *>HHI* (08/02/22 1:59 AM) 36.85 kg/m2 *>HHI* (07/31/22 1:21 AM) Blood Pressure [90-138/55-84 mm Hg] 139/41mm Hg *H* (08/03/22 2:00 PM) 146/43mm Hg *H* (08/03/22 11:00 AM) 134/50mm Hg (08/03/22 2:10 AM) Respiratory Rate [16-30 br/min] 18 br/min (08/03/22 2:00 PM) 16 br/min (08/03/22 11:00 AM) 18 br/min (08/03/22 2:10 AM) Temperature [96.8-100.4 DegF] 97.8 DegF (08/03/22 2:00 PM) 97.6 DegF (08/03/22 11:00 AM) 98.3 DegF (08/03/22 2:10 AM) Liters per Minute 1 L/min (08/03/22 2:00 PM) Mode of Delivery (Oxygen) Nasal cannula (08/03/22 2:00 PM) Room air (08/03/22 11:00 AM) Room air (08/03/22 2:10 AM) Blood pressure sites Arm, right (08/03/22 2:00 PM) Arm, right (08/03/22 11:00 AM) Arm, left (08/03/22 2:10 AM) Temperature Route Oral (08/03/22 2:00 PM) Oral (08/03/22 11:00 AM) Oral (08/03/22 2:10 AM) Dry Weight 98.6 kg (07/30/22 5:45 PM) Weight Obtained Via Bed scale (08/03/22 2:10 AM) Bed scale (08/02/22 1:59 AM) Bed scale (07/30/22 5:27 PM) Social History Social History Type Response Smoking Status Never (less than 100 in lifetime) entered on: 12/21/18 Sex Portable XR Chest Views * [facility] , CIS S: TRANSCRIBE Dilcia Philip MD: VERIFY Event Display: Result: Authored Date: [id number] Chest Portable Reason: Shortness of Breath; Clinical Question(s): CHF COMPARISON: 09/01/2010. FINDINGS: LINES AND TUBES: None. LUNGS AND PLEURA: Mild focal opacity in the right costophrenic phrenic angle with obscuration of the diaphragm. No pleural effusion. No pneumothorax. HEART, MEDIASTINUM AND ANA: Heart is normal in size. Mildly prominent in size central pulmonary arteries, unchanged. BONES AND SOFT TISSUES: No acute abnormality. IMPRESSION: Mild focal opacity in the right costophrenic phrenic angle with obscuration of the diaphragm. This can represent atelectasis or infection. WSN: [id number] Ordering Physician: Bc Braga Dictated By: Dilcia Philip MD Dictated Date/Time: 07/31/22 3:33 pm Reviewed By: Dilcia Philip MD Signed By: Dilcia Philip MD Signed Date/Time: 07/31/22 3:33 pm Transcribed By: LESLYE Transcribed Date/Time: 07/31/22 3:19 pm Patient Care team information Personnel Name: Preston VORA, Daniel Garcia Address: Address: [address] [place] [id number]
--- OUTSIDE RECORDS SUMMARY | 2024-04-11 12:09 | XMS_ITS | Continuity of Care Document ---
Author Organization [facility] ter Address [address] [place] [id number]- Care Team Providers Care Tea Tree Farmer Name Role Phone Preston VORA, Daniel Garcia Primary Care Physi will Encounter [facility] Date(s): 10/27/22 - 12/23/[address] [id number] Attending Physician: Erica VORA, Jaime Gauthier Referring Physician: Tera Sutherland MD Allergies, Adverse Reactions, [...] 0 Refills, Maintenance, 10/15/22 12:54:00 EST, Tablet, [facility], Partial fill upon patient request if the prescription is for a schedule II opioid drug., 150, cm, 10/15/22 12:09:00... Start Date: 10/15/22 Status: Ordered folic acid 1 mg oral [...] 10/15/22 13:13:00 EST, Route to Pharmacy Electronically, [facility], Partial fill upon patient request if [...] 0 Refills, Maintenance, 10/15/22 12:54:00 EST, Tablet, [facility], Partial fill upon patient request if the prescription is for aschedule II opioid drug., 150, cm, 10/15/22 12:09:0... Start Date: 10/15/22 Stop Date: 11/14/22 Status: Ordered Toujeo SoloStar 300 units/mL subcutaneous solution = 34 units, Subcutaneous Injection, Daily in AM Start Date: 07/30/22 Status: Ordered Trelegy Ellipta 200 mcg-62.5 mcg-25 [...] Start Date: 07/30/22 Status: Ordered Vitamin D 57587 iu oral capsule 50,000 International_Units, 1, capsule, [...] 12/21/18 Sex History and physical note * Geoff VORA, [facility]: PERFORM Event Display: History and Physical Hospital Authored Date: [id number] Patient: ??KHLOE MARTINEZ ? Age:??77 Years?Sex:??Female?:??1945? SURGICAL HISTORY AND PHYSICAL ?? DATE:?? 11/23/2022 ? CENTRAL SUPPLY ASSISTANT:?? Tera Sutherland M.D. ?? Chief Complaint Severe / cad ?? History of Present Illness The patient is a 77-year-old female??with PMH??CAD, PAD (bilateral SFA), carotid artery stenosis, HfpEF, CKD stage III with baseline creatinine 1.5, COPD, DM2, HTn, HLD, and JOSE who presented with??heart failure in the setting of??severe aortic stenosis. ??I first met her 3 years ago and offered open cabg/avr, which she declined and was lost to follow up. She has had significant weight gain and now has poor mobility, deconditioned significantly. Recent echo??08/02??showed severe ;??tricuspid with evidence of significant calcification with a mean gradient of??56??and a valve area of 0.53cm?by continuity equation.??Normal EF. Mild AI. ??The patient underwent??repeat??cardiac catheterizati on08/03/22??that revealed??stable CAD with 75% LAD, 70% LCx, 75% RCA.??She denies any PND, orthopnea, cough, chest pain, pressure, palpitations, or dizziness/lightheadedness, bleeding, dark stools orabdominal complaints.??She does not have exertional lightheadedness or syncope.??She has now??been h ospitalized??several times??for overt congestive heart failure. ? Review of Systems Constitutional:??No weight loss, fever, chills, weakness or fatigue. Allergy/Immune: Denies any??Eczema or hives Eyes:??No visual loss, blurred vision, double vision or yellow sclera ENT:??No hearing loss, sneezing, congestion, runny nose or sore throat. Respiratory:??No shortness of breath, cough or sputum production. Cardiovascular:??No chest pain, chest pressure or chest discomfort. No palpitations or pedal edema. Gastrointestinal:??No anorexia, nausea, vomiting or diarrhea. No abdominal pain or blood in stool. Genitourinary:??No burning micturition. No urinary frequency or incontinence. Neurologic:??No headache, dizziness, syncope, unilateral weakness, ataxia, numbness or tingling in the extremities. No change in bowel or bladder control. Musculoskeletal:??No muscle pain, back pain, joint pain or stiffness. Hematologic/Lymphatics:??No bleeding or bruising. No painful lymph nodes. Skin:??No rash or itching. Endocrine:??No reports of sweating. No cold or heat intolerance. No polyuria or polydipsia. Psychiatric:??No depression or anxiety. ?? Objective ?Vital Signs?Temperature: 98.3 DegF (10/12/22 12:38:00) ?Temperature Route: Oral (10/12/22 12:38:00) ?Pulse Rate: 58 bpm (10/12/22 12:38:00) ?Respiratory Rate: 18 br/min (10/12/22 12:38:00) ?Systolic Blood Pressure:??143 mm Hg??High (10/12/22 12:38:00) ?Diastolic Blood Pressure:??43 mm Hg??Low (10/12/22 12:38:00) ?Blood pressure sites: Arm, left (10/12/22 12:38:00) ?Mean Arterial Pressure: 76 mm Hg (10/12/22 12:38:00) ?Pulse Pressure: 100 mm Hg (10/12/22 12:38:00) ?Oxygen Saturation: 97 % (10/12/22 12:38:00) ?Liters per Minute: 2 L/min (10/12/22 12:38:00) ?Mode of Delivery (Oxygen): Nasal cannula (10/12/22 12:38:00) ?Early Warning Score: 0 (10/12/22 12:38:50) ?Physical Exam ?CONST:??Appears stated age, no acute distress, alert and oriented X 3 ?EYES:??Anicteric, nl conjunctivae, EOM intact ?ENT:??Nl oropharynx ?NECK:??No evidence of JVD or HJR. Carotid impulses and upstroke normal bilaterally, no carotid bruits?CV: Regular rhythm, S1/S2.??There is a mid to late systolic crescendo decrescendo murmur noted in aortic area radiating towards carotids. ??No rubs or gallop noted. Femoral pulses nl and symmetric, no femoral bruits.??No aortic pulsation or aortic bruits. ?RESP:??Normal respiratory effort,??clear to auscultation ?GI:??Soft, non-tender and non-distended, bowels sounds normoactive, no abdominal bruits ?EXT: no??lower extremity edema,??no clubbing,??no cyanosis ?SKIN:??No rash, skin warm and dry.?NEURO:?Alert and oriented x 3, CN 2-12 grossly intact? Assessment/Plan ??The patient is a 77-year-old??female with??severe aortic stenosis who presented with progressive dyspnea on exertion and now is being evaluated for aortic valve replacement. Preoperative evaluationincludes cardiac catheterization and echocardiogram, which I reviewed in detail. I discussed at length the two types of aortic valve replacement, namely surgical and transcatheter, with the patient and her in the hospital today. She was mostly sleepy throughout the interview. Her??STS risk for mortality for an isolated aortic valve replacement is calculated to??11.3% and 17.11% for combine d AVR/CBG, which places her??in the??high??risk category.??She is no longer an open heart surgery candidate given age, comorbidities, functional status, given the high risk nature and complexity. We discussed in detail the risk of paravalvular leak, need for dual anti platelet therapy, risk of requiring pacemaker implantation, and the senior living durability concerns with TAVR; the patient expressedunderstanding of these risks and wishes to pursue the transcatheter approach instead of surgical aortic valve replacement. ??She is amenable to emergency open heart surgery in the case of a complication during TAVR. None the less, I believe the patient is a suitable TAVR candidate. We will further discuss her??case at an upcoming multidisciplinary TAVR team meeting??after CT TAVR is complete. ? Donavan Tellez MD [facility]?? [address] [facility], [address] [place] [address] Office: [phone] Histories Allergies Allergies ?(Active and Proposed Allergies Only) Percocet 7.5/325? (Severity: Unknown severity, Onset: Unknown) ?Reactions: hallucinations Motrin? (Severity: Unknown severity, Onset: Unknown) ?Reactions: High BP ? Past Medical History/Problem List Active Problems??(6) Asthma Cardiac catheterization Diabetes mellitus Hyperlipidemia Hypertension Obese class II ? Past Surgical History no surgery ? Social History Tobacco Details:??Use: Never (less than 100 in lifetime). ? Family History No family history??premature cad ? Medications Home Medications Amlodipine (amLODIPine 10 mg oral tablet)?1?tab(s)?10?Milligram?By Mouth?Daily Aspirin (aspirin 81 mg oral delayed release tablet)?81?Milligram?1?tablet?By Mouth?Daily at bedtime Atorvastatin (atorvastatin 40 mg oral tablet)?1?tab(s)?40?Milligram?By Mouth?Daily at bedtime Brimonidine Ophthalmic (brimonidine 0.2% ophthalmic solution)?1?Drops?Eyes, Both?2 times a day Carvedilol (carvedilol 25 mg oral tablet)?25?Milligram?1?tablet?By Mouth?2 times a day Cyanocobalamin (Vitamin B-12 1000 mcg oral tablet)?1,000?Microgram?1?tablet?By Mouth?Daily Ergocalciferol (Vitamin D 49173 iu oral capsule)?50,000?International Unit?1?capsule?By Mouth?Every week fluticasone/umeclidinium/vilanterol (Trelegy Ellipta 200 mcg-62.5 mcg-25 mcg/inh inhalation powder)?1?puff(s)?Inhalation?Daily?at the same time every day Folic Acid (folic acid 1 mg oral tablet)?1?Milligram?1?tablet?By Mouth?Daily Furosemide (furosemide 40 mg oral tablet)?40?Milligram?1?tablet?By Mouth?Daily Gabapentin (gabapentin 300 mg oral capsule)?300?Milligram?1?capsule?By Mouth?Daily at bedtime hydrALAZINE?50?Milligram?By Mouth?2 times a day Insulin Aspart (NovoLOG FlexPen 100 units/mL injectable solution)?3?unit(s)?Subcutaneous Injection?3 times a day before meals?INJECT 5-10 UNITS SUBCUTANEOUSLY THREE TIMES DAILY DIRECTED Insulin Glargine (Toujeo SoloStar 300 units/mL subcutaneous solution)?34?unit(s)?Subcutaneous Injection?Daily in AM Latanoprost Ophthalmic (latanoprost 0.005% ophthalmic solution)?1?Drops?Eyes, Both?Daily in PM Montelukast (montelukast 10 mg oral tablet)?10?Milligram?1?tablet?By Mouth?Daily before dinner ? Results Recent Labs BLOOD COUNT & DIFF WBC 10.1 k/mm3 ()?? 10/11/2022 19:49 RBC 4.29 m/mm3 ()?? 10/11/2022 19:49 Hgb 9.7 Gm/dL (Low)?? 10/11/2022 19:49 Hct 31.4 % (Low)?? 10/11/2022 19:49 MCV 73.2 femtoliters (Low)?? 10/11/2022 19:49 MCH 22.6 pg (Low)?? 10/11/2022 19:49 MCHC 30.9 g/dL (Low)?? 10/11/2022 19:49 Platelet Count 364 k/mm3 ()?? 10/11/2022 19:49 RDW-SD 47.3 femtoliters (High)?? 10/11/2022 19:49 MPV 9.0 femtoliters (Low)?? 10/11/2022 19:49 Nucleated RBC (Automated) 0.0 #/100 WBC'S ()?? 10/11/2022 19:49 Abs. NRBC 0.0 k/mm3 ()?? 10/11/2022 19:49 Abs. Neut 7.3 k/mm3 (High)?? 10/11/2022 19:49 Abs. Lymph 1.6 k/mm3 ()?? 10/11/2022 19:49 Abs. Hale 0.9 k/mm3 ()?? 10/11/2022 19:49 Abs. Eo 0.3 k/mm3 ()?? 10/11/2022 19:49 Abs. Baso 0.1 k/mm3 ()?? 10/11/2022 19:49 Neut % 71.8 % ()?? 10/11/2022 19:49 Lymph % 15.8 % ()?? 10/11/2022 19:49 Hale % 8.6 % ()?? 10/11/2022 19:49 Eos % 3.0 % ()?? 10/11/2022 19:49 Baso % 0.5 % ()?? 10/11/2022 19:49 Imm Gran 0.3 % ()?? 10/11/2022 19:49 Abs. Imm Gran 0.0 k/mm3 ()?? 10/11/2022 19:49 ?? CARDIAC Nt-Probnp 1662 pg/mL (High)?? 10/11/2022 19:49 ?? CHEM GENERAL Sodium 145 mmol/L ()?? 10/12/2022 04:05 Potassium 4.0 mmol/L ()?? 10/12/2022 04:05 Chloride 103 mmol/L ()?? 10/12/2022 04:05 Bicarbonate Level 30 mmol/L (High)?? 10/12/2022 04:05 Anion Gap 12 ()?? 10/12/2022 04:05 Glucose Level 65 mg/dL (Low)?? 10/12/2022 04:05 Glucose, POC 139 mg/dL (High)?? 10/12/2022 12:37 Hemoglobin A1C (Monitoring) 5.9 % (High)?? 10/11/2022 19:49 BUN 26 mg/dL (High)?? 10/12/2022 04:05 Creatinine-Blood 1.6 mg/dL (High)?? 10/12/2022 04:05 Estimated GFR Creatinine 34 ML/MIN/1.73 M2 ()?? 10/12/2022 04:05 Calcium 9.1 mg/dL ()?? 10/12/2022 04:05 Phosphorus 4.2 mg/dL ()?? 10/11/2022 19:49 Magnesium 2.2 mg/dL ()?? 10/11/2022 19:49 Protein, Total 6.6 Gm/dL ()?? 10/12/2022 04:05 Albumin 3.5 Gm/dL ()?? 10/12/2022 04:05 AG Ratio 1.1 ()?? 10/12/2022 04:05 Alkaline Phosphatase 134 units/L (High)?? 10/12/2022 04:05 AST (SGOT) 15 units/L ()?? 10/12/2022 04:05 ALT (SGPT) 11 units/L ()?? 10/12/2022 04:05 Bilirubin, Total 0.5 mg/dL ()?? 10/12/2022 04:05 ?? COAG INR 1.1 ()?? 10/11/2022 19:49 Protime (PT) 11.8 seconds (High)?? 10/11/2022 19:49 APTT 26.9 seconds ()?? 10/11/2022 19:49 ?? LIPID STUDIES Cholesterol 126 mg/dL ()?? 10/11/2022 19:49 Triglycerides 69 mg/dL ()?? 10/11/2022 19:49 HDL Cholesterol 46 mg/dL ()?? 10/11/2022 19:49 LDL Cholesterol 66 mg/dL ()?? 10/11/2022 19:49 Non HDL Cholesterol 80 mg/dL ()?? 10/11/2022 19:49 ?? VIROLOGY COVID-19 PCR Specimen Source NASAL ()?? 10/11/2022 17:33 COVID-19 PCR Result NEGATIVE ()?? 10/11/2022 17:33 ? Cardiology Labs Nt-Probnp:??1662 pg/mL??High (10/11/22 19:49:00) Lipids: Cholesterol: 126 mg/dL (10/11/22 19:49:00) Triglycerides: 69 mg/dL (10/11/22 19:49:00) HDL Cholesterol: 46 mg/dL (10/11/22 19:49:00) LDL Cholesterol: 66 mg/dL (10/11/22 19:49:00) Non HDL Cholesterol: 80 mg/dL (10/11/22 19:49:00) Patient Care team information Care Team Personnel Name: Preston VORA, Daniel Garcia Position: [facility] Outreach Member Role: PCP Address: Address: [address] [place] [address]- Care Team Related Persons Name: VENKATA NASSAR Address: home [address] [address] Name: IWONA TABARES Address: [address] [place] [address]
--- OUTSIDE RECORDS SUMMARY | 2024-04-11 12:09 | XMS_ITS | Continuity of Care Document ---
Author Organization [facility] Address [address] [place] [address]- Care Team Providers Care Molder Shoulder Pad Name Role Phone Turner Golden MD, Shelby Bear Primary Care Physician [phone] Encounter [facility] Date(s): 08/20/23 - 08/20/[address] [address]- Discharge Disposition: A-D/C Home Attending Physician: Rosendo Zuniga MD Admitting Physician: Rosendo Zuniga MD Referring Physician: Not on Staff, Referring [...] 7:24:00EDT, Tablet Start Date: 05/20/20 Status: Ordered Augmentin 875 mg-125 mg oral tablet 1 tablet, By Mouth, Every 12 hours, for 10 days, # 20 tablet, 0 Refills, Acute 08/30/23 21:02:00 EST, 08/20/23 21:02:00 EST, Tablet, [facility], Partial fill upon patient request if the prescription is for a schedule II opioid drug... Start Date: 08/20/23 Stop Date: 08/30/23 Status: Ordered Augmentin 875 mg-125 mg oral tablet 1 tablet, By Mouth, Every 12 hours, for 10 days, # 20 tablet, 0 Refills, Acute 08/30/23 23:03:00 EST, 08/20/23 23:03:00 EST, Tablet, [facility]/pharmacy #[id number], Partial fill upon patient request if the prescription is for a schedule II opioid drug., 145, cm,... Start Date: 08/20/23 Stop Date: 08/30/23 Status: Ordered brimonidine 0.2% ophthalmic solution 1 drops, Eyes, Both, 2 times a day, 0 Refills, Maintenance, 07/30/22 18:24:00 EDT, Partial fill upon patient request if the prescription is for a schedule II opioid drug. Start Date: 07/30/22 Status: Ordered clopidogrel 75 mg oral tablet 75 mg, By Mouth, Daily, # 30 capsule, Refills 0, Tot. Refills 0, Maintenance, 04/29/23 9:26:00 EDT,Route to Pharmacy Electronically, [facility], Partial fill upon patient request if the prescription is for a schedule II opioid drug., 14... Start Date: 04/29/23 Stop Date: 05/29/23 Status: Ordered dexamethasone-tobramycin 0.1%-0.3% ophthalmic suspension PLACE 1 DROP IN EACH EYE FOUR TIMES DAILY Start Date: 04/17/23 Status: Ordered empagliflozin 10 mg oral tablet 1 tablet = 10 mg, By Mouth, Daily in AM, # 30 tablet, 0 Refills, Maintenance, 10/15/22 12:54:00 EST, Tablet, [facility], Partial fill upon patient request if the prescription is for a schedule II opioid drug., 150, cm, 10/15/22 12:09:00... Start Date: 10/15/22 Status: Ordered esomeprazole 40 mg oral enteric coated capsule 1 capsule = 40 mg, By Mouth, Daily, # 30 capsule, 0 Refills, Maintenance, 04/17/23 22:01:00 EDT, ECCapsule, Partial fill upon patient request if the prescription is for a schedule II opioid drug. Start Date: 04/17/23 Status: Ordered ferrous sulfate 325 mg oral enteric coated tablet IVÁN 1 TABLETA POR LA BOCA CADA OTRO SUKHI Start Date: 04/17/23 Status: Ordered ferrous sulfate 325 mg oral enteric coated tablet 325 mg, By Mouth, Every other day, Chamita luigi capsula cada otro sukhi., # 30 tablet, Refills 0, Tot. Refills 0, Maintenance, 04/07/23 11:34:00 EDT, Route to Pharmacy Electronically, [facility], Partial fill upon patient [...] day, # 60 tablet, Refills 0, Maintenance, 04/17/23 22:00:00 EDT, Partial fill upon patient request if the prescription is for a schedule II opioid drug. Start Date: 04/17/23 Status: Ordered Jardiance 10 mg oral tablet 1 tablet = 10 mg, By Mouth, Daily in AM, # 30 tablet, 0 Refills, Maintenance, 04/17/23 21:59:00 EDT, Tablet, Partial fill upon patient request if the prescription is for a schedule II opioid drug. Start Date: 04/17/23 Status: Ordered Jardiance 10 mg oral tablet TAKE 1 TABLET BY MOUTH EVERY MORNING Start Date: 04/17/23 Status: Ordered latanoprost 0.005% ophthalmic solution INSTILL 1 DROP IN EACH EYE AT BEDTIME Start Date: 04/17/23 Status: Ordered latanoprost 0.005% ophthalmic solution 1 drops, Eyes, Both, Daily in PM, # 2.5 mL, 0 Refills, Maintenance, 07/30/22 18:19:00 EDT, Solution, Partial fill upon patient request if the prescription is for a schedule II opioid drug. Start Date: 07/30/22 Status: Ordered montelukast 10 mg oral tablet TAKE 1 TABLET BY MOUTH EVERY EVENING Start Date: 04/17/23 Status: Ordered montelukast 10 mg oral tablet 10 mg, 1, tablet, By Mouth, Daily before dinner, Refills 0, Maintenance, 12/21/18 11:10:07 EDT Start Date: 12/21/18 Status: Ordered NovoLOG FlexPen 100 units/mL injectable solution 0 Refills, Maintenance, 04/17/23 21:59:00 EDT, Partial fill upon patient request if the prescription is for a schedule II opioid drug. Start Date: 04/17/23 Status: Ordered NovoLOG FlexPen 100 units/mL injectable solution = 3 units, Subcutaneous Injection, 3 times a day before meals, INJECT 5-10 UNITS SUBCUTANEOUSLY THREE TIMES DAILY DIRECTED Start Date: 07/30/22 Status: Ordered predniSONE 20 mg oral tablet TAKE 2 TABLETS BY MOUTH DAILY Start Date: 04/17/23 Status: Ordered Toujeo SoloStar 300 units/mL subcutaneous [...] opioid drug. Start Date: 10/11/22 Status: Ordered Trelegy Ellipta inhalation powder 1 puffs, Inhalation, Daily, at the same time every day, # 60 each, 0 Refills, Maintenance, 04/17/2321:59:00 EDT, Powder, Partial fill upon patient request if the prescription is for a schedule II opioid drug. Start Date: 04/17/23 Status: Ordered TRUPLUS LANC MIS 33G TRUPLUS LANC MIS 33G, 0 Refills, Maintenance, 04/17/23 21:59:00 EDT Start Date: 04/17/23 Status: Ordered ULTIGUARD MIS [id number] ULTIGUARD MIS [id number], 0 Refills, Maintenance, 04/17/23 22:01:00 EDT Start Date: 04/17/23 Status: Ordered Vitamin B-12 1000 mcg oral tablet 1,000 mcg, 1, tablet, By Mouth, Daily, # 30 tablet, Refills 0, Maintenance, 07/30/22 18:26:00 EDT, Partial fill upon patient request if the prescription is for a schedule II opioid drug. Start Date: 07/30/22 Status: Ordered Vitamin D 23767 iu oral capsule 50,000 International_Units, 1, capsule, By Mouth, Every week, Refills 0, Maintenance, 06/23/18 7:02:38 EDT Start Date: 06/23/18 Status: Ordered Problem List Condition Confirmation Course Effective Dates Status H ealth Status Informant Asthma Confirmed Active Cardiac catheterization Confirmed Active Diabetes mellitus Confirmed Active Hyperlipidemia Confirmed Active Hypertension Confirmed Active Severe obesity Confirmed Active Results Radiology Reports * Exam Date Time Procedure Performing Provider Status 08/20/23 7:[address] Abdomen and Pelvi s W/O Contrast Karolyn Causey; Auth (Verified) Notes: (CT Abdomen and Pelvis W/O Contrast) Reason For Exam: Pain RESULT: CT Abdomen and Pelvis W/O Contrast CT Abdomen and Pelvis W/O Contrast Hx of Present Illness: BRB rectally since this morning. soaked 1.5 pads today. bleeding with and without bowel movements. reports dizziness and abdominal pain. no history of this. taking Plavix and baby ASA; Reason: Pain; Clinical Question(s): Calculus TECHNIQUE: Spiral CT through the abdomen and pelvis without IV contrast formatted in 3 planes. Thisstudy was performed without oral contrast. Weight- based protocol using automatic tube modulation was used to optimize exposure parameters. CTDIvol Body: 21.96 mGy, DLP Body: 1008 mGy*cm. COMPARISON: None FINDINGS: Director Of Curriculum And Instruction View Findings, Lines and Tubes: None. Visualized Chest: Lung bases are clear. No pleural effusion. The heart is normal in size. No pericardial effusion. Diaphragm: Normal. Liver: Incidental calcified granulomas. Gallbladder: Postcholecystectomy. Bile ducts: No biliary ductal dilation. Spleen: Incidental calcified granuloma. Pancreas: Normal. Adrenal glands: Normal. Kidneys and ureters: No hydronephrosis, stones, or noncontrast evidence of suspicious masses. Bladder: Normal. Reproductive organs: Atrophic. Stomach, small bowel, and large bowel: There is an 8 cm long segment of circumferential wall thickening and stranding involving the proximal descending colon best seen on coronal image 28. This appearance is suggestive of a localized colitis. No bowel obstruction. Scattered diverticula without acute diverticulitis.. Appendix: Normal. Peritoneum and retroperitoneum: No ascites or pneumoperitoneum. No omental or mesenteric lesions. Lymph nodes: No enlarged lymph nodes. Blood vessels: Mild vascular calcifications but no aneurysm. Abdominal and pelvic wall: Unremarkable. Bones: No acute abnormality. IMPRESSION: 8 cm segment of circumferential wall thickening involving the proximal descending colon with minimal surrounding inflammation in the left abdomen suggesting localized colitis. On occasion infiltrative colonic neoplasm may have a similar appearance. If there is no clinical improvement following treatment of presumed colitis, follow-up CT or colonoscopy may be indicated. WSN: [id number] Ordering Physician: Rosendo Zuniga Dictated By: Randy Brown MD Dictated Date/Time: 08/20/23 7:54 pm Reviewed By: Randy Brown MD Signed By: Randy Brown MD Signed Date/Time: 08/20/23 7:54 pm Transcribed By: LESLYE Transcribed Date/Time: 08/20/23 7:47 pm Vital Signs Most recent to oldest [Reference Range]: 1 2 3 Height 145 cm (08/20/23 9:24 PM) 145 cm (08/20/23 6:17 PM) Weight 86.0 kg (08/20/23 9:24 PM) 86.0 kg (08/20/23:17 PM) Oxygen Saturation [94-100 %] 98 % (08/20/23 9:24 PM) 96 % (08/20/23 6:52 PM) 98 % (08/20/23:17 PM) Pulse Rate [55-90 bpm] 66 bpm (08/20/23 9:24 PM) 71 bpm (08/20/23 6:52 PM) 79 bpm (08/20/23 6:17 PM) Body Mass Index [18.5-24.99 kg/m2] 40.9 kg/m2 *>HHI* (08/20/23 9:24 PM) Blood Pressure [90-138/55-84 mm Hg] 126/40mm Hg (08/20/23 9:24 PM) 153/49mm Hg *H* (08/20/23 6:52 PM) 157/70mm Hg *H* (08/20/23 6:17 PM) Respiratory Rate [16-30 br/min] 15 br/min *L* (08/20/23 9:24 PM) 13 br/min *L* (08/20/23 6:52 PM) 15 br/min *L* (08/20/23 6:17 PM) Temperature [96.8-100.4 DegF] 98.1 DegF (08/20/23 6:17 PM) Mode of Delivery (Oxygen) Room air (08/20/23 9:24 PM) Room air (08/20/23 6:52 PM) Room air (08/20/23 6:17 PM) Blood pressure sites Arm, left (08/20/23 9:24 PM) Arm, left (08/20/23 6:52 PM) Arm, left (08/20/23 6:17 PM) Temperature Route Temporal (08/20/23 6:17 PM) Dry Weight 86.0 kg (08/20/23 9:24 PM) 86.0 kg (08/20/23 6:17 PM) Weight Obtained Via Standing scale (08/20/23 6:17 PM) Dry Weight Obtained Via Standing scale (08/20/23 6:17 PM) Social History Social History Type Response Smoking Status Never (less than 100 in lifetime) entered on: 12/21/18 Sex Note * Rosendo Zuniga MD: PERFORM Event Display: Patient Education Leaflets Authored Date: [id number] Lower Gastrointestinal (GI) Bleeding (Stable) ?? [id number] Lower Gastrointestinal (GI) Bleeding (Stable) You have signs of blood in your stool. This is called rectal bleeding. The bleeding may have begun in another part of your gastrointestinal (GI) tract. If the blood is bright red, it's likely coming from the lower part of the GI tract. If the blood is black or dark, it might be coming from higher up in the GI tract. Very small amounts of GI bleeding may not be visible and can only be discovered during a test on your stool. Possible causes of lower GI bleeding include: ??? Swollen inflamed veins in the rectum (hemorrhoids) ??? Tear in the lining of the anus (anal fissures) ??? Bleeding from a blood vessel in a small pouch in the large intestine (diverticular bleeding) ??? Inflammatory bowel disease (Crohn's disease or ulcerative colitis) ??? Polyps (growths) in the intestine ??? Swelling and irritation of the colon (infectious colitis or other types of colitis)??? Colon cancer Note:??Iron supplements and medicines for diarrhea or upset stomach can cause black stools. Foods, such as licorice and red beets, can also discolor the stool and be mistaken for bleeding. These are not bleeding and are not a cause for alarm. Home care You have not lost a large amount of blood and your condition appears stable at this time.??You may resume normal activity as long as you feel well. Don't take NSAIDs, such as aspirin, ibuprofen, or naproxen. They can irritate the stomach and causefurther bleeding. If you are taking these medicines for other medical reasons, talk to your healthcare provider before you stop them.? Follow-up care Follow up with your healthcare provider, or as advised. Further tests may be needed to find??the cause of your bleeding. ?? When to get medical advice Call your healthcare provider??right away??if any of the following occur: ??? Rectal bleeding?Increasing belly (abdominal) pain ??? Weakness, dizziness ??? Current symptoms get worse, or you have new symptoms ?? Call 911 Call 911 if any of the following occur: ??? Loss of consciousness ??? Vomiting blood ??? Large amount of rectal bleeding? Last Reviewed Date: 2022 ?? The [employer]. All rights reserved. This information is not intended as a substitute for professional medical care. Always follow your healthcare professional's instructions. ?? Patient Care team information Care Team Personnel Name: Maryann Zavala RN Position: [facility] RN Member Role: Primary Care Nurse Name: Randy Arriola RN Position: [facility] RN Member Role: Primary Care Nurse Name: Dorothea Glaser Position: [facility] RN Member Role: Primary Care Nurse Name: Marielle Tolbert RN Position: [facility] RN Member Role: Primary Care Nurse Name: Ryanne Coleman RN Position: [facility] RN Member Role: Primary Care Nurse Name: Mima Winters RN Position: [facility] RN Member Role: Primary Care Nurse Name: Karen Villanueva RN Position: [facility] RN Member Role: Primary Care Nurse Name: Turner Golden MD , Shelby Bear Position: Reference Physician Member Role: PCP Address: Address: [address] [place], [place] [id number] [place] [address]- Name: Joe Miranda RN Position: [facility] RN Member Role: Primary Care Nurse Name: Tracy Ramon Position: [facility] RN Member Role: Primary Care Nurse Name: Tracy Gomes RN Position: [facility] ED RN W/OE and Tasks Member Role: Patient Care Provider Name: Светлана Barkley Position: [facility] ED [facility] Member Role: Audit Consultant Name: Rosendo Zuniga MD Position: [facility] ED Medicine MD Member Role: Admitting Physician Address: Address: [address] [place] [address] [place] [address]- Name: Laura Jonas Position: S ED [facility] Care Team Related Persons Name: VENKATA NASSAR Address: home [address] [address] Name: IWONA TABARES Address: home [address] [place] [address]
--- OUTSIDE RECORDS SUMMARY | 2024-04-11 12:09 | XMS_ITS | Continuity of Care Document ---
Author Organization [facility] ter Address [address] [place] [id number]- Care Team Providers Care Fisher Scallop Name Role Phone Preston VORA, Daniel Garcia Primary Care Physi will Encounter [facility] Date(s): 10/11/22 - 10/15/[address] [id number]- Discharge Disposition: A-D/C Home Attending Physician: Gabriel Hernandez MD Admitting Physician: Mario Betancourt DO Referring Physician: Mario Betancourt DO Allergies, Adverse Reactions, Alerts Substance Reaction [...] oral tablet 10 mg, Tablet, By Mouth, 10/15/22 9:00:00 EST Start Date: 10/15/22 Stop Date: 10/15/22 Status: Completed amLODIPine 10 mg oral tablet [...] drug. Start Date: 07/30/22 Status: Ordered carvedilol 12.5 mg oral tablet 12.5 mg, Tablet, By Mouth, Hold for: SBP < 90, HR < 60, 10/15/22 9:00:00 EST Start Date: 10/15/22 Stop Date: 10/15/22 Status: Completed carvedilol 25 mg oral tablet [...] 0 Refills, Maintenance, 10/15/22 12:54:00 EST, Tablet, [facility], Partial fill upon patient request [...] oral tablet 25 mg, Tablet, By Mouth, 10/15/22 9:00:00 EST Start Date: 10/15/22 Stop Date: 10/15/22 Status: Completed hydrALAZINE 25 mg oral tablet 25 mg, 1, tablet, By Mouth, 2 times a day, # 60 tablet, Refills 0, Tot. Refills 0, Maintenance, 10/15/22 13:13:00 EST, Route to Pharmacy Electronically, [facility], Partial fill upon patient [...] 0 Refills, Maintenance, 10/15/22 12:54:00 EST, Tablet, [facility], Partial fill upon patient [...] Start Date: 07/30/22 Status: Ordered Vitamin D 49150 iu oral capsule 50,000 International_Units, 1, capsule, [...] Exam Date Time Procedure Performing Provider Status 10/13/22 3:[address] TAVR Angio Chest Paty Lindsay; Au th (Verified) Notes: (CT TAVR Angio Chest) Reason For Exam: Aortic Stenosis RESULT: CT TAVR Angio Chest Thoracic CTA, Retrospectively Gated (CT TAVR Heart, CT TAVR Angio Chest) HISTORY: Aortic stenosis. Increased risk surgical candidate. Assess aortic annulus and coronary ostial positions for possible transcatheter aortic valve replacement (TAVR). Assess thoracic aorta and upper extremity central vessels for arterial access. TECHNIQUE: TAVR protocol. A Chlorine Gen[employer] [place] scanner with 16 cm wide detector was employed. Automatic tube modulation based on attenuation from AP and lateral topograms was used to optimize exposure parameters. Contrast bolus tracking was used for timing. First, single-beat cardiac-gated CTA of the heart was performed using ECG-based dose modulation to limit dose.. Next, non-gated CT angiograms of the chest, and of the abdomen/pelvis/groins were performed using the same contrast bolus. In addition to standard axial angiographic reconstructions, 3-D multiplanar and MIP reconstructions were obtained from the heart, chest, and abdomen/pelvis studies on separate workstations, under direct radiologist supervision, and were saved to the [facility] PACS. The patient received 70 cc Ominqpaque 350 IV as well as saline flush. The CT angiogram examination of the abdomen/pelvis will be dictated separately. Weight-based protocol was performed using automatic exposure control. Comparison: CT of the chest 05/28/2020. FINDINGS: CIVIL ENGINEERING TECHNICIAN VIEW: No acute finding Aortic Valve: The aortic valve was severely calcified. Aortic Annulus: The aortic annulus was defined as the plane passing through the kimberly of three aortic valve cusps. Annulus measurements in short and long axes were obtained at varying phases of the heart cycle during systole determined as percentages of RR interval. Perpendicular distances from this plane to the closest portion of the right coronary (RCA) and the left main coronary (LM) ostia were also measured. There is no significant calcium along the annulus. Phase Annulus Dimensions, Area, Perimeter; RCA; LM. 35% 27 x 21 mm, 426 mm^2, 75 mm; 17 mm; 13 mm. 65% 28 x 19 mm, 404 mm^2, 74 mm; 15 mm; 12 mm. Mitral Annulus: Moderate calcification. Thoracic Aorta: Aortic dimensions are as follows (outer diameter as measured in the short axis plane at each of thefollowing levels): Sinuses of Valsalva: 26 x 27 x 26 mm, outer diameter. Sinotubular junction: 20 x 24 mm, inner diameter. Ascending (maximum): 30 x 32 mm, outer diameter. Descending (maximum): 24 mm, outer diameter. Descending (minimum): 21 mm, inner diameter. Great Vessels: Right subclavian artery: Minimum diameter 5 x 4 mm. Right axillary artery: Minimum diameter 7 x 6 mm. Left subclavian artery: Minimum diameter 6 x 6 mm. Left axillary artery: Minimum diameter 7 x 6 mm. Additional Findings: The left atrium is moderately enlarged, no thrombus. There is heavy coronary artery calcification. Trachea and main bronchi are patent. There is no pneumothorax. There is small-sized left pleural effusion, moderate size right pleural effusion with adjacent atelectasis. There is scattered mosaic attenuation likely due to groundglass opacity relating to pulmonary edema, with infection/inflammation in the differential. This is new from 2020. Unremarkable chest wall. There are multiple borderline size mediastinal lymph nodes. No acute bony findings. IMPRESSION: Aortic valve annular dimensions, areas and perimeters, and coronary ostial distances as above. Moderately enlarged left atrium. Moderate size right pleural effusion, small sized left pleural effusion. Scattered mosaic attenuation likely relates to pulmonary edema, with infection/inflammation in the differential. If there is concern for other causes including air trapping/bronchiolitis or hypersensitivity pneumonitis etc., May consider dedicated HRCT of the chest. WSN: [id number] Ordering Physician: Tera Sutherland Dictated By: Andie Jaimes MD Dictated Date/Time: 10/14/22 2:17 pm Reviewed By: Andie Jaimes MD Signed By: Andie Jaimes MD Signed Date/Time: 10/14/22 2:17 pm Transcribed By: LESLYE Transcribed Date/Time: 10/14/22 1:57 pm * Exam Date Time Procedure Performing Provider Status 10/13/22 3:[address] TAVR Heart Paty Lindsay; Erika (Ve rified) Notes: (CT TAVR Heart) Reason For Exam: Aortic Stenosis RESULT: CT TAVR Heart Thoracic CTA, Retrospectively Gated (CT TAVR Heart, CT TAVR Angio Chest) HISTORY: Aortic stenosis. Increased risk surgical candidate. Assess aortic annulus and coronary ostial positions for possible transcatheter aortic valve replacement (TAVR). Assess thoracic aorta and upper extremity central vessels for arterial access. TECHNIQUE: TAVR protocol. A Chlorine [employer] [place] scanner with 16 cm wide detector was employed. Automatic tube modulation based on attenuation from AP and lateral topograms was used to optimize exposure parameters. Contrast bolus tracking was used for timing. First, single-beat cardiac-gated CTA of the heart was performed using ECG-based dose modulation to limit dose.. Next, non-gated CT angiograms of the chest, and of the abdomen/pelvis/groins were performed using the same contrast bolus. In addition to standard axial angiographic reconstructions, 3-D multiplanar and MIP reconstructions were obtained from the heart, chest, and abdomen/pelvis studies on separate workstations, under direct radiologist supervision, and were saved to the [facility] PACS. The patient received 70 cc Ominqpaque 350 IV as well as saline flush. The CT angiogram examination of the abdomen/pelvis will be dictated separately. Weight-based protocol was performed using automatic exposure control. Comparison: CT of the chest 05/28/2020. FINDINGS: CIVIL ENGINEERING TECHNICIAN VIEW: No acute finding Aortic Valve: The aortic valve was severely calcified. Aortic Annulus: The aortic annulus was defined as the plane passing through the kimberly of three aortic valve cusps. Annulus measurements in short and long axes were obtained at varying phases of the heart cycle during systole determined as percentages of RR interval. Perpendicular distances from this plane to the closest portion of the right coronary (RCA) and the left main coronary (LM) ostia were also measured. There is no significant calcium along the annulus. Phase Annulus Dimensions, Area, Perimeter; RCA; LM. 35% 27 x 21 mm, 426 mm^2, 75 mm; 17 mm; 13 mm. 65% 28 x 19 mm, 404 mm^2, 74 mm; 15 mm; 12 mm. Mitral Annulus: Moderate calcification. Thoracic Aorta: Aortic dimensions are as follows (outer diameter as measured in the short axis plane at each of thefollowing levels): Sinuses of Valsalva: 26 x 27 x 26 mm, outer diameter. Sinotubular junction: 20 x 24 mm, inner diameter. Ascending (maximum): 30 x 32 mm, outer diameter. Descending (maximum): 24 mm, outer diameter. Descending (minimum): 21 mm, inner diameter. Great Vessels: Right subclavian artery: Minimum diameter 5 x 4 mm. Right axillary artery: Minimum diameter 7 x 6 mm. Left subclavian artery: Minimum diameter 6 x 6 mm. Left axillary artery: Minimum diameter 7 x 6 mm. Additional Findings: The left atrium is moderately enlarged, no thrombus. There is heavy coronary artery calcification. Trachea and main bronchi are patent. There is no pneumothorax. There is small-sized left pleural effusion, moderate size right pleural effusion with adjacent atelectasis. There is scattered mosaic attenuation likely due to groundglass opacity relating to pulmonary edema, with infection/inflammation in the differential. This is new from 2019. Unremarkable chest wall. There are multiple borderline size mediastinal lymph nodes. No acute bony findings. IMPRESSION: Aortic valve annular dimensions, areas and perimeters, and coronary ostial distances as above. Moderately enlarged left atrium. Moderate size right pleural effusion, small sized left pleural effusion. Scattered mosaic attenuation likely relates to pulmonary edema, with infection/inflammation in the differential. If there is concern for other causes including air trapping/bronchiolitis or hypersensitivity pneumonitis etc., May consider dedicated HRCT of the chest. WSN: [id number] Ordering Physician: Tera Sutherland Dictated By: Andie Jaimes MD Dictated Date/Time: 10/14/22 2:17 pm Reviewed By: Andie Jaimes MD Signed By: Andie Jaimes MD Signed Date/Time: 10/14/22 2:17 pm Transcribed By: LESLYE Transcribed Date/Time: 10/14/22 1:57 pm * Exam Date Time Procedure Performing Provider Status 10/13/22 3:[address] TAVR Angio Abdomen and Pelvis Paty Lindsay; Erika (Verified) Notes: (CT TAVR Angio Abdomen and Pelvis) Reason For Exam: Aortic Stenosis RESULT: CT TAVR Angio Abdomen and Pelvis CT TAVR Angio Abdomen and Pelvis INDICATION: Reason: Aortic Stenosis; Clinical Question(s): Pre-TAVR , Pre-TAVR COMPARISON: 12/08/2010. TECHNIQUE: Spiral CTA was performed from the diaphragm through the proximal lower extremities afterthe intravenous administration iodinated contrast. 70 cc of Omnipaque 350 was administered intravenously. Volume rendered, maximum intensity projection, and curved planar reformat 2-D and 3-D angiographic projections of the data set were obtained and reviewed on an independent workstation, with images saved for review. Weight-based protocol using automatic tube modulation was used to optimize exposure parameters. RADIATION DOSE PARAMETERS: VASCULAR FINDINGS: Minimum aortic and iliofemoral luminal measurements are as follows: Aorta: 1.0 x 0.9 cm. Right common iliac: 0.8 x 0.6 cm. Right external iliac: 0.7 x 0.4 cm. Right common femoral: 0.6 x 0.2 cm. Left common iliac: 0.8 x 0.5 cm. Left external iliac: 0.7 x 0.4 cm. Left common femoral: 0.4 x 0.2 cm. Abdominal aorta: Severe calcification. No aneurysm or dissection. Celiac axis: Patent. Ostial calcification with mild to moderate stenosis. Conventional hepatic arterial branching pattern. Superior mesenteric artery: Coarse calcification proximally with focal occlusion versus high-grade stenosis. Inferior mesenteric artery: Patent. Right renal artery: Patent. Ostial calcification with mild stenosis. Left renal artery: Patent. Ostial calcification without stenosis. Iliofemoral arteries: Patent. Diffuse calcification. No aneurysm or dissection. NONVASCULAR FINDINGS: Teacher Advisor findings: Dense material within the colon identified, likely contrast from prior imaging studies. Visualized Chest: Please refer to the separate CTA chest report. Diaphragm: No acute abnormality. Liver: Unremarkable. Gallbladder: Status post cholecystectomy. Bile ducts: Prominent extrahepatic common bile duct, consistent with the patient's age and prior cholecystectomy. No obvious intraductal abnormality. The duct has a normal tapered appearance in the head of the pancreas. Spleen: Normal. Pancreas: Normal. Adrenal glands: Normal. Kidneys and ureters: Indeterminate and incompletely evaluated with this examination, possible rounded soft tissue density lesion within the mid right kidney measuring 1.8 cm, best appreciated in the coronal plane (image 46, series 604). No stone or hydronephrosis. Hypoattenuating lesion within the inferior pole of the right kidney measuring 1.2 cm, possibly a hyperdense cyst. Bladder: Partially obscured by beam hardening artifact. No evidence of an acute abnormality. Reproductive organs: Obscured by beam hardening artifact. No evidence of acute abnormality. Stomach, small bowel, and large bowel: Retained contrast within the cecum and sigmoid colon. No evidence of bowel obstruction. Likely physiologic distention of the stomach. No focal inflammatory process or wall thickening. Appendix: No evidence of acute appendicitis. Peritoneum and retroperitoneum: No ascites or pneumoperitoneum. No omental or mesenteric lesions. Lymph nodes: No enlarged lymph nodes. Abdominal and pelvic wall: Soft tissue calcifications of the inferior gluteal cleft bilaterally, left greater than right. Diffuse soft tissue edema of the lower anterior abdominal wall pannus. No loculated fluid collection. Loculated air collection in the lower left abdominal wall, likely secondaryto subcutaneous medicine injection. Bones: No acute fracture or dislocation. Diffuse degenerative changes. IMPRESSION: 1. Minimal aortic and iliofemoral measurements as outlined above. 2. No acute abnormality identified within the abdomen or pelvis. 3. Indeterminate lesion within the mid right kidney, possibly a hyperdense cyst. However, a soft tissue mass/malignancy is not completely excluded. Follow-up renal mass MR recommended. 4. Possible mild cellulitis of the lower anterior abdominal wall. Recommend clinical correlation. A critical result message (Yellow) has been communicated via the [employer] system on 10/14/2022 11:19 AM, Message ID [id number]. WSN: [id number] Ordering Physician: Tera Sutherland Dictated By: Jim Dewitt MD Dictated Date/Time: 10/14/22 11:20 a Reviewed By: Jim Dewitt MD Signed By: Jim Dewitt MD Signed Date/Time: 10/14/22 11:20 am Transcribed By: LESLYE Transcribed Date/Time: 10/14/22 10:59 am * Exam Date Time Procedure Performing Provider Status 10/12/22 9:55 AM Chest Portable Braden Mcarthur; Erika (Verified) Notes: (Chest Portable) Reason For Exam: CHF RESULT: Chest Portable Chest Portable INDICATION/CLINICAL QUESTION: Reason: CHF; Clinical Question(s): CHF / CHF TECHNIQUE: AP chest 0932 hours 10/12/2022. COMPARISON: 07/31/2022. FINDINGS: LINES AND TUBES: Absent. LUNGS AND PLEURA: RIGHT CHEST: Mild interstitial prominence in the lower lung. There is some consolidation/effusion at the right base.. LEFT CHEST: Interstitial prominence mid and lower lung with. Lungs otherwise clear. No effusion.. HEART AND MEDIASTINAL CONTOURS: Normal. BONES AND SOFT TISSUES: No acute abnormality.. IMPRESSION: 1. There is some bilateral interstitial prominence consistent with the clinically suspected CHF. 2. Opacification at the right base could simply represent effusion and atelectasis as part of heartfailure, but should be correlated clinically to exclude the possibility of bibasilar pneumonia. WSN: [id number] Ordering Physician: Lyndsay Viera Dictated By: Mayank Bartholomew MD Dictated Date/Time: 10/12/22 11:34 a Reviewed By: Mayank Bartholomew MD Signed By: Mayank Bartholomew MD Signed Date/Time: 10/12/22 11:34 am Transcribed By: LESLYE Transcribed Date/Time: 10/12/22 11:32 am Vital Signs Most recent to oldest [Reference Range]: 1 2 3 4 Height 150 cm (10/15/22 12:09 PM) 150 cm (10/15/22 7:17 AM) 150 cm (10/15/22 12:43 AM) Oxygen Saturation [94-100 %] 100 % (10/15/22 12:09 PM) 98 % (10/15/22 7:17 AM) 99 % (10/15/22 12:43 AM) Pulse Rate [55-90 bpm] 55 bpm (10/15/22 12:09 PM) 60 bpm (10/15/22 8:52 AM) 60 bpm (10/15/22 7:17 AM) Blood Pressure [90-138/55-84 mm Hg] 138/37mm Hg (10/15/22 12:09 PM) 138/40mm Hg (10/15/22 8:52 AM) 138/40mm Hg (10/15/22 8:52 AM) 138/40mm Hg (10/15/22 8:52 AM) Respiratory Rate [16-30 br/min] 18 br/min (10/15/22 12:09 PM) 18 br/min (10/15/22 7:17 AM) 18 br/min (10/15/22 12:43 AM) Temperature [96.8-100.4 DegF] 97.9 DegF (10/15/22 12:09 PM) 98.1 DegF (10/15/22 7:17 AM) 98.2 DegF (10/15/22 12:43 AM) Liters per Minute 2 L/min (10/15/22 12:09 PM) 2 L/min (10/15/22 7:17 AM) 2 L/min (10/15/22 12:43 AM) Mode of Delivery (Oxygen) Nasal cannula (10/15/22 12:09 PM) Nasal cannula (10/15/22 7:17 AM) Nasal cannula (10/15/22 12:43 AM) Blood pressure sites Arm, left (10/15/22 12:09 PM) Arm, left (10/15/22 7:17 AM) Arm, left (10/15/22 12:43 AM) Temperature Route Oral (10/15/22 12:09 PM) Oral (10/15/22 7:17 AM) Oral (10/15/22 12:43 AM) Dry Weight 91 kg (10/11/22 4:02 PM) Social History Social History Type Response Smoking Status Never (less than 100 in lifetime) entered on: 12/21/18 Sex History and physical note * Event Display: History and Physical Hospital Authored Date: Admission evaluation note * Bengani MD, Shreyans: PERFORM Event Display: Admission Note Authored Date: [id number] Patient: ??KHLOE MARTINEZ ? Age:??77 Years?Sex:??Female?:??1945?? Chief Complaint/Reason for Consultation CHF/severe aortic stenosis???transfer from [facility] History of Present Illness This is a 77-year-old??female patient??who is French-speaking and accompanied by multiple family members including daughter.?? Patient lives at home with her ??and daughter lives upstairs. ??She has been transferred here from [facility].?? Patient went to [facility]?? with??worsening shortness of breath for past 3 days or so with??accompanying??dyspnea on exertion and worsening orthopnea without any??chest pain but reported upper back pain.?? Reports compliance with her??diuretics.?? She has been using 2 L nasal cannula but for past few days she has been having saturation in mid 80s,??her weight has been??fluctuating.?? Some lower extremity swelling reported. ??Not on anticoagulation. ??Patient has severe??aortic stenosis and is followed by cardiology.?? Patient states that??Mylanta helped her dyspepsia symptoms. ??She was given IV Lasix at outside facility and was seen by cardiology??and transferred for further management.?? Overall patient reports someimprovement since arrival to??the hospital. ??Denies any chest pain during the interview.?? Alert awake and oriented x4.?? Certified in person??French speaking investor relations coordinator was used for the appointment.?? Patient wants to full code. ?? On arrival to [facility],??heart rate of 63, remains afebrile,??blood pressure 111/66,??maintaining saturation of??high 90s on??2 L??nasal cannula.?? Patient does not have any significant history of smoking. ??At outside facility, noted to have white count of 15.8 hemoglobin 10.5, pl atelets 394,??INR 1.2, PTT??35.6, sodium 143, potassium??106, creatinine 1.07, LFTs unremarkable, procalcitonin 0.02, troponin??30.2, proBNP 758,??urinalysis not suggestive of infection. Review of Systems General ROS:??negative for chills or fever, positive for fatigue, no night sweats, no unexpained weight loss or weight gain Psychological ROS:negative for anxiety or depressive symptoms, no suicidal thoughts, appropriate insight into situation, mood appears appropriate for situation ENT ROS:??negative for nasal congestion, no sinus drainage, no nosebleeding, no sore throat, no dysphagia, no ear pain Hematological and Lymphatic ROS:??negative for bleeding problems, no history of blood clots, no recent increase in bruising, no noted swollen lymph nodes Endocrine ROS:??negative for polyuria/polydipsia?? Respiratory ROS:??negative for cough, positive for shortness of breath, no wheezing Cardiovascular ROS:??no chest pain, positive for dyspnea on exertion, positive for edema, no palpitations, no history of loss of consciousness, positive for orthopnea, no paroxysmal nocturnal dyspnea?? Gastrointestinal ROS:??Positive for reflux, no abdominal pain, no black or bloody stools- also no history of constipation, diarrhea, heartburn or hematemesis Genito-Urinary ROS:??no dysuria, no trouble voiding, or hematuria Musculoskeletal ROS:??Positive for upper back pain???resolved, no worsening or chronic neck pain, no new or worsening joint pain, no calf swelling Neurological ROS:??no symptoms of confusion, no dizziness, no gait disturbance, no impaired coordination/balance, no memory loss, no history of seizures, no history of speech problems, no tremors , no visual changes. Objective Measurements?? Height: 150 cm (10/11/22) Dry Weight: 91 kg (10/11/22) ? Vital Signs?? Temperature: 98.4 DegF (10/11/22 19:12:00) Temperature Route: Oral (10/11/22 19:12:00) Pulse Rate: 63 bpm (10/11/22 19:12:00) Respiratory Rate: 18 br/min (10/11/22 19:12:00) Systolic Blood Pressure: 111 mm Hg (10/11/22 19:12:00) Diastolic Blood Pressure: 66 mm Hg (10/11/22 19:12:00) Blood pressure sites: Arm, left (10/11/22 19:12:00) Mean Arterial Pressure: 81 mm Hg (10/11/22 19:12:00) Pulse Pressure: 45 mm Hg (10/11/22 19:12:00) Oxygen Saturation: 99 % (10/11/22 19:12:00) Liters per Minute: 2 L/min (10/11/22 19:12:00) Mode of Delivery (Oxygen): Nasal cannula (10/11/22 19:12:00) Early Warning Score: 0 (10/11/22 19:13:56) ? Pain Scores?? No qualifying data available. ? Intake/Output? 10/11 15:38 10/11 07:00 10/10 07:00 10/09 07:00 10/08 07:00 ?? 10/11 19:28 10/11 19:28 10/11 06:59 10/10 06:59 10/09 06:59 Intake ?240 ?240 ?0 ?0 ?0 Output ?450 ?450 ?0 ?0 ?0 Net Total ? -210 ? -210 ?0 ?0 ?0 ? Physical Exam ?? General appearance- alert, cooperative, no distress, appears stated age, oriented to time, place and person, Head- Normocephalic, without obvious abnormality, atraumatic Eyes-conjunctivae/corneas clear. PERRL, EOM's intact. Nose- Nares normal. Septum midline. Mucosa normal. No drainage or sinus tenderness. Throat-Lips, mucosa, and tongue normal. Neck- supple, symmetrical, trachea midline, no adenopathy, thyroid: not enlarged, symmetric, no tenderness/mass/nodules, no carotid bruit Back- symmetric, no curvature.?? No CVA tenderness Lungs-??clear to auscultation bilaterally, no accessory muscle use, no accessory respiratory sounds Chest wall- no tenderness, no skin rash or lesions or bruising, no crepitance Heart- regular rate and rhythm, S1, S2 normal, no murmur, click, rub or gallop Abdomen-??soft, non-tender. Bowel sounds normal. No masses,?? No organomegaly Extremities- extremities normal, atraumatic, no cyanosis but does have 1+ bilateral pitting edema, warm and well perfused. Muscle tone is normal and equal bilaterally Pulses- 2+ and symmetric on dorsal pedal pulses, posterior tibial pulses, radial pulses Skin- Skin color, texture, turgor normal. No rashes or lesions Neurologic- Normal, nonfocal, no focal weakness ? Assessment/Plan 77-year-old female with history significant for hypertension, hyperlipidemia, type 2 diabetes???insulin-dependent, underlying COPD/obstructive sleep apnea, anemia, recurrent UTIs, poor functional status, chronic diastolic CHF,?? 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 Acute on chronic diastolic CHF Severe aortic stenosis Cardiology consultation in the morning Telemetry monitoring Continuous pulse ox Monitor respiratory status closely Check hemoglobin A1c, lipid profile, magnesium, phosphorus and CMP Continue??aspirin, statin Patient does have recent echo Start on Lasix??20 IV twice daily Monitor creatinine,??respiratory function, ins and outs and daily weights ?? GERD Start on Pepcid Continue Creon ?? History of CAD, hyperlipidemia Continue aspirin statin ?? Hypertension Continue Coreg and amlodipine at home dose Monitor blood pressure closely ?? History of COPD Switching Trelegy to Breo??as Trelegy is not available on formulary ?? T2DM Start Insulin sliding scale medium dose with meals and bedtime Lantus 25 units nightly Checking hemoglobin A1c Hypoglycemia precautions Monitor POC Glucose closely and titrate insulin regimen accordingly ?? Code??status???full code ?? DVT prophylaxis???Heparin subcutaneous ?? Diet???cardiac/diabetic, 1500 mill fluid restriction ?? River Daniel MD [facility] Medicine Date-October 11, 2022.?? Patient seen at??6:35 PM ?? IMPORTANT: This document was created by voice recognition software. A conscious effort has been made to improve accuracy of the water hydrant installer. Any obvious errors or omissions should be clarified with the authorof this document. ?? Time spent providing and coordinating care for this patient???68 minutes, complexity high ? Histories Allergies Allergies ?(Active and Proposed Allergies Only) Percocet 7.5/325? (Severity: Unknown severity, Onset: Unknown) ?Reactions: hallucinations Motrin? (Severity: Unknown severity, Onset: Unknown) ?Reactions: High BP ? Past Medical History/Problem List Active Problems??(6) Asthma Cardiac catheterization Diabetes mellitus Hyperlipidemia Hypertension Obese class II ? Past Surgical History No surgery history documented. ? Social History Tobacco Details:??Use: Never (less than 100 in lifetime). ? Psychosocial History ? Family History No family history recorded. [...] mcg oral tablet)?1,000?Microgram?1?tablet?By Mouth?Daily Ergocalciferol (Vitamin D 42609 iu oral capsule)?50,000?International Unit?1?capsule?By Mouth?Every week fluticasone/umeclidinium/vilanterol [...] Mouth?Daily before dinner ? Results Recent Labs CHEM GENERAL Glucose, POC 107 mg/dL (High)?? 10/11/2022 17:35 ? Abnormal Labs ?? CHEM GENERAL ??Glucose, POC ??107 mg/dL (High) ??10/11/2022 17:35 ? Note: Critical results are displayed in red. ? Blood Glucose Trend Glucose, POC:??107 mg/dL??High (10/11/22 17:35:00) ? CBC, CBC w/Diff?? No qualifying data available. ?? BMP, Mg, and Phos?? No qualifying data available. ?? Coagulation Profile?? No qualifying data available. ?? LFT?? No qualifying data available. ?? Urinalysis?? No qualifying data available. ? Blood Gases?? No qualifying data available. ?? Uric/LDH?? No qualifying data available. ? US.doppler Carotid arteries - bilateral * Event Display: VL Carotid Duplex Scan Bilat Authored Date: Status:Open Carotid Duplex Study Demographics Procedure Information Patient name: MICHELLE LEDBETTER Procedure date: 10/14/2022 12:01 PM Corporate Proc. sub type: Cerebral: Carotid, Carotid Duplex Scan Bilateral. Gender: Female Accession No: [id number] Date of : 1945 Account No: [id number] Age: 77 year(s) Admit Status: Inpatient Facility: [facility] Procedure Staff Study location: [facility] [place] Vascular Lab Ordering physician: Paul Mortensen NP Referring Physician: Paul Mortensen NP Procedure consent obtained: No Admitting Physician: Serafin Nails Attending Physician: Fredy Holman Liquor Department Manager: Lorena Avery RDMS RVT Interpreting physician: Randy Lucas MD Indications Pre-op evaluation. Carotid Diagram Right Left The diagram is not intended for diagnosis. It is provided for reference only. Carotid Procedure Findings Right Left PSV EDV Angle Plaque PSV EDV Angle Plaque Location (cm/s) (cm/s) (Degree) Characteristics (cm/s) (cm/s) (Degree) Characteristics Prox CCA 84.3 60 72.7 60 Dist CCA 95.9 17.4 60 85.7 13.7 60 Bulb 88.1 16.5 60 65.9 13.7 60 Prox ICA 88.1 21.3 60 Calcified 107 15.5 60 Calcified Mid ICA 91.8 21 60 75.3 19.1 56 Dist ICA 91.1 18.2 60 64.6 15.7 60 Prox ECA 126 60 Calcified 173 60 Calcified Vertebral 42.1 9.22 60 108 20.5 60 Prox 185 60 107 60 Subclavian Right ICA/CCA ratio: 0.96 Right verterbral flow: Antegrade Left ICA/CCA ratio: 1.25 Left verterbralflow: Antegr Physician Conclusions Summary: Right Side: 1-49% stenosis in the Internal Carotid Artery. Antegrade flow in the Vertebral Artery, but there may be delayed upstroke and a more proximal stenosis is not excluded. Biphasic flow is seen in the Subclavian Artery. Left Side: 1-49% stenosis in the Internal Carotid Artery. Antegrade flow in the Vertebral Artery. Biphasic flow is seen in the Subclavian Artery. * Event Display: VL Carotid Duplex Scan Bilat Authored Date: Hospital Progress note * Marielle Saeed RN: PERFORM, SIGN, VERIFY Event Display: Progress Note Hospital Authored Date: Patient: KHLOE MARTINEZ Age: 77 years Sex: Female : 1945 Associated Diagnoses: None Author: Marielle Saeed RN Findings Narrative/Incidental I spoke with patient and her at bedside with the assitance of spans speaking PCT to discuss the availability of WednesdayOct 23 for her TAVR. Patient was instantly unsure what the procedurewas and if she wanted it. With PCT speaking sudanese assistance due to time constraint of getting manager inventory management procedure was explained to her along with the need for her to stay 1 or 2 nights after. After she spoke in French at length with her she said that she would be willing to take the date for procedure. I infromed her that a nurse would be giving her a call with further instructions with the use of senior education specialist. This information was relayed to TAVR team.. * Paul SOLIMAN, Naye Mortensen: MODIFY, PERFORM Event Display: Progress Note Hospital Authored Date: Patient: ??KHLOE MARTINEZ ? Age:??77 Years?Sex:??Female?:??1945?? Patient Hx Provider Clinical Summary Patient is a pleasant 77-year-old female with history significant for hypertension, hyperlipidemia, type 2 diabetes poorly controlled with A1c around 8.9, underlying COPD/obstructive sleep apnea, anemia, recurrent UTIs, poor functional status, chronic diastolic CHF, chronic CKD with baseline creatinine of 1.4, chronic abdominal pain, spinal stenosis with neuroclaudication, PAD with bilateral SFA occlusion with ABIs of 0.7, minimal carotid disease, prior cath in 2019 with moderate??borderline significant multivessel CAD, and progressive calcific aortic stenosis transferred from [facility] where she presented with symptoms of fatigue SOB and TERRELL. History of Present Illness/Interval History Patient seen and examined with assistance from Head Turning Machine Operator #[id number]?? States she feels better Breathing is improved No CP or SOB No event overnight Sinus on telemetry ?? Review of Systems Patient denies CP, dizziness, palpitation, syncope, SOB or LE edema Physical Exam Vitals & Measurements Weight lb/oz: 204 lb 13 oz Mental Status: Alert and oriented x3, appears comfortable Head: Normocephalic Neck: Supple, no lymphadenopathy Respiratory: Good air movement, no crackles, wheezes or rales Cardiovascular: S1 S2, no JVD,??+ murmur, no rub or gallop Gastrointestinal: BS present, abdomen soft Musculoskeletal: JAQUEZ Peripheral: + pulses, no clubbing or cyanosis, trace edema Skin: No rash or lesions Assessment/Plan #Acute on chronic diastolic CHF #Chronic dyspnea -Patient with progressive calcific aortic stenosis with chronic dyspnea -Patient appears to be close to euvolemia -Wan LV Lasix 40mg BID. Switch to Torsemide 20mg BID -Stable creatinine- 1.5 (baseline about 1.4) -Continue to monitor strict I&O's, daily standing weight, electrolytes and kidney function -Maintain low sodium diet -Could benefit from SGLT2I and GLP1a ?? #Aortic stenosis #CAD -Patient with known severe aortic stenosis with MG 56mmHg and JULIETTE 0.5c sq. m and CAD. -LVEF is normal -LHC in 2021 revealed 75% LAD dz, 70% LCX and 75% RCA. -Patient any anginal symptoms -TAVR work up in process ?? #Hypertension -Bp borderline -Continue to optimize medications for good BP control -Maintain low sodium diet ?? #Hyperlipidemia -Continue Lipitor 40mg daily ?? Patient discussed with Dr. Sutherland. Patient can be discharged today or tomorrow with PT evaluation and recommendation, and I will set up outpatient follow up in 1-2 weeks. ?? Thank you for allowing us to participate in the care of your patient. ?? Naye Miller NP [facility] Problem List/Past Medical History Ongoing Asthma Cardiac catheterization Diabetes mellitus Hyperlipidemia Hypertension Obese class II Historical No qualifying data Procedure/Surgical History No qualifying data available. Hospital Medications Medications (31) Active SCHEDULED: (18) Amlodipine 10 mg Tablet (amLODIPine 10 mg oral tablet) ??10 mg, By Mouth, Daily Aspirin 81 mg EC Tablet (aspirin 81 mg oral delayed release tablet) ??81 mg, By Mouth, Daily at bedtime Atorvastatin 40 mg Tablet (atorvastatin 40 mg oral tablet) ??40 mg, By Mouth, Daily at bedtime Breo Ellipta 200 mcg / 25 mcg Inhaler (Breo Ellipta 200 mcg-25 mcg Inhaler) ??1 puffs, Inhalation, Daily Brimonidine 0.2% Ophthalmic Solution (brimonidine 0.2% ophthalmic solution) ??0.2 % 1 drops, Eyes, Both, 2 times a day Carvedilol 12.5 mg Tablet (carvedilol 12.5 mg oral tablet) ??12.5 mg, By Mouth, 2 times a day Famotidine 20 mg Tablet (famotidine 20 mg oral tablet) ??20 mg, By Mouth, Daily at bedtime Furosemide 40 mg Tablet (furosemide 40 mg oral tablet) ??40 mg, By Mouth, Daily Gabapentin 300 mg Capsule (gabapentin 300 mg oral capsule) ??300 mg, By Mouth, Daily at bedtime Heparin 5000 units/mL Inj (1 mL) (Heparin Inj) ??5,000 units 1 mL, Subcutaneous Injection, 2 times a day hydrALAZINE 25 mg Tablet (hydrALAZINE 25 mg oral tablet) ??25 mg, By Mouth, 2 times a day Insulin Glargine 100 units/mL Inj (Lantus Inj) ??10 units 0.1 mL, Subcutaneous Injection, Daily Insulin Lispro 100 units/mL Inj (3mL) (Insulin LISPRO Sliding Scale) ??2-10 units, Subcutaneous Injection, 3 times a day before meals Latanoprost 0.005% Ophthalmic Solution (latanoprost 0.005% ophthalmic solution) ??1 drops, Eyes, Both, Daily at bedtime Montelukast 10 mg Tablet (montelukast 10 mg oral tablet) ??10 mg, By Mouth, Daily before dinner NaCL 0.9% Flush 10ml (NaCL 0.9% Flush (10mL)) ??10 mL, IV Push, Every 8 hours NaCl 0.9% Flush 3ml (NaCL 0.9% Flush) ??3 mL, IV Push, Every 8 hours Pancrelipase 3,000 unit Capsule (Pancrelipase Capsule) ??6,000 units 2 capsule, By Mouth, 3 times aday after meals CONTINUOUS: (0) PRN: (13) Acetaminophen 325 mg Tablet (Acetaminophen Tablet) ??650 mg, By Mouth, Every 4 hours Albuterol 0.083% Inhalation Solution (Albuterol 0.083% inhalation laci) ??2.5 mg 3 mL, BAND Nebulizer, Every 4 hours Dextromethorphan-Guaifenesin 20 mg-200 mg/10 mL Liqu UD [...] ??80 mg, Chew, 3 times a day Lab Results Cardiology Labs WBC: 9.5 k/mm3 (10/15/22) RBC: 4.39 m/mm3 (10/15/22) Hgb:??9.7 Gm/dL??Low (10/15/22) Hct:??31.8 %??Low (10/15/22) MCV:??72.4 femtoliters??Low (10/15/22) MCH:??22.1 pg??Low (10/15/22) MCHC:??30.5 g/dL??Low (10/15/22) Platelet Count: 335 k/mm3 (10/15/22) RDW-SD: 46.5 femtoliters (10/15/22) Nucleated RBC (Automated): 0 #/100 WBC'S (10/15/22) Abs. Neut:??7.3 k/mm3??High (10/11/22) Abs. Lymph: 1.6 k/mm3 (10/11/22) Abs. Hemphill: 0.9 k/mm3 (10/11/22) Abs. Eo: 0.3 k/mm3 (10/11/22) Abs. Baso: 0.1 k/mm3 (10/11/22) Neut %: 71.8 % (10/11/22) Hemphill %: 8.6 % (10/11/22) Eos %: 3 % (10/11/22) Baso %: 0.5 % (10/11/22) Imm Gran: 0.3 % (10/11/22) Abs. Imm Gran: 0 k/mm3 (10/11/22) INR: 1.1 (10/11/22) Protime (PT):??11.8 seconds??High (10/11/22) APTT: 26.9 seconds (10/11/22) Sodium: 142 mmol/L (10/15/22) Potassium: 4 mmol/L (10/15/22) Chloride: 102 mmol/L (10/15/22) Bicarbonate Level:??32 mmol/L??High (10/15/22) Glucose Level:??65 mg/dL??Low (10/12/22) Hemoglobin A1C (Monitoring):??5.9 %??High (10/11/22) BUN:??34 mg/dL??High (10/15/22) Creatinine-Blood:??1.5 mg/dL??High (10/15/22) Calcium: 9.1 mg/dL (10/12/22) Protein, Total: 6.6 Gm/dL (10/12/22) Albumin: 3.5 Gm/dL (10/12/22) Alkaline Phosphatase:??134 units/L??High (10/12/22) AST (SGOT): 15 units/L (10/12/22) ALT (SGPT): 11 units/L (10/12/22) Bilirubin, Total: 0.5 mg/dL (10/12/22) Troponin T Quant: <0.01 (07/31/22) Nt-Probnp:??1662 pg/mL??High (10/11/22) Cholesterol: 126 mg/dL (10/11/22) Triglycerides: 69 mg/dL (10/11/22) HDL Cholesterol: 46 mg/dL (10/11/22) LDL Cholesterol: 66 mg/dL (10/11/22) Non HDL Cholesterol: 80 mg/dL (10/11/22) Diagnostic Impression CT CT TAVR Angio Chest ?? 13:57:30 IMPRESSION: ?? Aortic valve annular dimensions, areas and perimeters, and coronary ostial distances as above. ?? Moderately enlarged left atrium. ?? Moderate size right pleural effusion, small sized left pleural effusion. Scattered mosaic attenuation likely relates to pulmonary edema, with infection/inflammation in the differential. If there is concern for other causes including air trapping/bronchiolitis or hypersensitivity pneumonitis etc., May consider dedicated HRCT of the chest. ? WSN: [id number] ? Ordering Physician: Tera Sutherland ?? Signed By: Andie Jaimes MD CT TAVR Heart ?? 13:57:30 IMPRESSION: ?? Aortic valve annular dimensions, areas and perimeters, and coronary ostial distances as above. ?? Moderately enlarged left atrium. ?? Moderate size right pleural effusion, small sized left pleural effusion. Scattered mosaic attenuation likely relates to pulmonary edema, with infection/inflammation in the differential. If there is concern for other causes including air trapping/bronchiolitis or hypersensitivity pneumonitis etc., May consider dedicated HRCT of the chest. ? WSN: [id number] ? Ordering Physician: Tera Sutherland ?? Signed By: Andie Jaimes MD ECG ECG 12-Lead * Preliminary * ?? 07:40:03 Please click on pdf link to open report Echo Echocardiogram - Complete ?? 11:31:39 Summary Normal left ventricular size and function with ejection fraction of 60-65%. No focal wall motion abnormalities. The left ventricular wall thickness is mildly increased. Normal right ventricular size and function. The left atrium is moderately to severely dilated. There is severe aortic stenosis (mean gradient 58 mmHg, peak velocity 4.7 m/s, JULIETTE 0.5 cm2, dimensionless index 0.17, based upon an LVOT measurement of 2.0 cm). There is mild aortic regurgitation. There is mild tricuspid valve regurgitation. Mild pulmonary hypertension with PA systolic pressure 30 mmHg (assuming RA pressure of 3 mmHg). ?? Comparison No prior study available for comparison. Per pt, she has Echocardiogram at [facility]. ?? Signature ?? Signed By: Sunny Adame MD Studies VL Carotid Duplex Scan Bilat ?? 12:01:37 Summary: Right Side: 1-49% stenosis in the Internal Carotid Artery. Antegrade flow in the Vertebral Artery, but there may be delayed upstroke and a more proximal stenosis is not excluded. Biphasic flow is seen in the Subclavian Artery. ?? Left Side: 1-49% stenosis in the Internal Carotid Artery. Antegrade flow in the Vertebral Artery. Biphasic flow is seen in the Subclavian Artery. ?? Signed By: Randy Lucas MD Cardiac Cath Procedure Cardiac Cath Procedure ?? 08:20:00 Conclusions ?? Diagnostic Summary 77-year-old female with history of hypertension hyperlipidemia COPD JOSE diabetes PAD CKD stage III progressive significant calcific aortic stenosis and moderate multivessel CAD presenting with fatigue progressive dyspnea abdominal pain presenting for left and right heart catheterization. ?? Ultrasound-guided right common SALES PROGRAM MANAGER and right SALES PROGRAM MANAGER access with 5 and 6 Malagasy sheath respectively. Right radial access was aborted due to occluded proximal vessel. ?? Left main is a large-caliber vessel with mild calcific plaque. LAD is a medium to large caliber vessel with proximal eccentric 75 to 80% heavily calcified diffuse disease with diffusely diseased mid distal LAD. Mild to moderate ostial diagnosis with normal flow. Circumflex is a medium to large caliber vessel with heavily calcified eccentric proximal 70% plaque and normal flow in 2 OM???s. OM 2 has moderate 65 to 70% ostial plaque with normal flow. RCA is a large dominant vessel with moderate to significant 75 to 80% focal calcified plaque in the midsegment with normal flow in PDA and PLB. ?? Mildly elevated LVEDP at 20. Moderate systemic hypertension. Mean gradient of 60 with pullback across aortic valve. ?? RA pressure 12, RV 46/10 PA pressure 48/18 with mean of 30, pulmonary capillary wedge pressure mean around 25 with V waves up to 30. Mixed venous sat of 58 with calculated Mandy cardiac index of 2 L/min/m2 PVR of 3. Successful hemostasis of the right common femoral venous or arterial sheath with manual compression. ?? Diagnostic Recommendations Continue aspirin 81 mg daily. Continue to optimize medications for hypertension hyperlipidemia diabetes and optimize cardiovascular risks. Elevated filling pressures and she will benefit from chronic diuretic therapy. Watch renal functions. She is very poorly functional with minimal mobility, PAD and spinal stenosis. We will continue discussion with the family their willingness to proceed with further TAVR evaluation with CTA etc. We will get cardiac surgery consultation as an outpatient. Follow-up with Dr. James in [place] office. ?? ACC Diagnostic Recommendations: Medical therapy and/or counseling. ?? Complications:None. ?? Signatures ?? Signed By: Koko VORA, Tera Miller NP, Naye Mortensen: PERFORM Event Display: Progress Note Hospital Authored Date: Patient: ??KHLOE MARTINEZ ? Age:??77 Years?Sex:??Female?:??1945?? Patient Hx Provider Clinical Summary Patient is a pleasant 77-year-old female with history significant for hypertension, hyperlipidemia, type 2 diabetes poorly controlled with A1c around 8.9, underlying COPD/obstructive sleep apnea, anemia, recurrent UTIs, poor functional status, chronic diastolic CHF, chronic CKD with baseline creatinine of 1.4, chronic abdominal pain, spinal stenosis with neuroclaudication, PAD with bilateral SFA occlusion with ABIs of 0.7, minimal carotid disease, prior cath in 2019 with moderate??borderline significant multivessel CAD, and progressive calcific aortic stenosis transferred from [facility] where she presented with symptoms of fatigue SOB and TERRELL. History of Present Illness/Interval History Patient feels fine States her breathing is better, denies CP No acute event overnight Sinus on telemetry Review of Systems Patient denies CP, dizziness, palpitation, syncope, orthopnea or worsening dyspnea Physical Exam Vitals & Measurements Weight lb/oz: 204 lb 13 oz Mental Status: Alert and oriented x3, appears comfortable Head: Normocephalic Neck: Supple, no lymphadenopathy Respiratory: Good air movement, no crackles, wheezes or rales Cardiovascular: S1 S2, no JVD,??+ murmur, no rub or gallop Gastrointestinal: BS present, abdomen soft Musculoskeletal: JAQUEZ Peripheral: + pulses, no clubbing or cyanosis, trace edema Skin: No rash or lesions Assessment/Plan #Acute on chronic diastolic CHF #Chronic dyspnea -Patient with progressive calcific aortic stenosis with chronic dyspnea -Patient appears to be close to euvolemia -On LV Lasix 40mg BID -I/O 24hrs: -350, net negative 960cc since admission. No weight for today -Stable creatinine- 1.5 (baseline about 1.4) -Continue to monitor strict I&O's, daily standing weight, electrolytes and kidney function -Maintain low sodium diet -Could benefit form SGLT2I and GLP1a ?? #Aortic stenosis #CAD -Patient with known severe aortic stenosis with MG 56mmHg and JULIETTE 0.5c sq. m and CAD. -LVEF is normal -LHC in 2021 revealed 75% LAD dz, 70% LCX and 75% RCA. -Patient any anginal symptoms -TAVR work up in process ?? #Hypertension -Bp borderline -Continue to optimize medications for good BP control -Maintain low sodium diet ?? #Hyperlipidemia -Continue Lipitor 40mg daily ?? Patient discussed with Dr. Sutherland. We will continue to follow along. ?? Thank you for allowing us to participate in the care of your patient. ?? Naye Miller NP [facility] Problem List/Past Medical History Ongoing Asthma Cardiac catheterization Diabetes mellitus Hyperlipidemia Hypertension Obese class II Historical No qualifying data Procedure/Surgical History No qualifying data available. Hospital Medications Medications (31) Active SCHEDULED: (18) Amlodipine 10 mg Tablet (amLODIPine 10 mg oral tablet) ??10 mg, By Mouth, Daily Aspirin 81 mg EC Tablet (aspirin 81 mg oral delayed release tablet) ??81 mg, By Mouth, Daily at bedtime Atorvastatin 40 mg Tablet (atorvastatin 40 mg oral tablet) ??40 mg, By Mouth, Daily at bedtime Breo Ellipta 200 mcg / 25 mcg Inhaler (Breo Ellipta 200 mcg-25 mcg Inhaler) ??1 puffs, Inhalation, Daily Brimonidine 0.2% Ophthalmic Solution (brimonidine 0.2% ophthalmic solution) ??0.2 % 1 drops, Eyes, Both, 2 times a day Carvedilol 12.5 mg Tablet (carvedilol 12.5 mg oral tablet) ??12.5 mg, By Mouth, 2 times a day Famotidine 20 mg Tablet (famotidine 20 mg oral tablet) ??20 mg, By Mouth, Daily at bedtime Furosemide Inj (Lasix ??Inj) ??40 mg 4 mL, IV Push Slowly, 2 times a day Gabapentin 300 mg Capsule (gabapentin 300 mg oral capsule) ??300 mg, By Mouth, Daily at bedtime Heparin 5000 units/mL Inj (1 mL) (Heparin Inj) ??5,000 units 1 mL, Subcutaneous Injection, 2 times a day hydrALAZINE 25 mg Tablet (hydrALAZINE 25 mg oral tablet) ??25 mg, By Mouth, 2 times a day Insulin Glargine 100 units/mL Inj (Lantus Inj) ??10 units 0.1 mL, Subcutaneous Injection, Daily Insulin Lispro 100 units/mL Inj (3mL) (Insulin LISPRO Sliding Scale) ??2-10 units, Subcutaneous Injection, 3 times a day before meals Latanoprost 0.005% Ophthalmic Solution (latanoprost 0.005% ophthalmic solution) ??1 drops, Eyes, Both, Daily at bedtime Montelukast 10 mg Tablet (montelukast 10 mg oral tablet) ??10 mg, By Mouth, Daily before dinner NaCL 0.9% Flush 10ml (NaCL 0.9% Flush (10mL)) ??10 mL, IV Push, Every 8 hours NaCl 0.9% Flush 3ml (NaCL 0.9% Flush) ??3 mL, IV Push, Every 8 hours Pancrelipase 3,000 unit Capsule (Pancrelipase Capsule) ??6,000 units 2 capsule, By Mouth, 3 times aday after meals CONTINUOUS: (0) PRN: (13) Acetaminophen 325 mg Tablet (Acetaminophen Tablet) ??650 mg, By Mouth, Every 4 hours Albuterol 0.083% Inhalation Solution (Albuterol 0.083% inhalation laci) ??2.5 mg 3 mL, BAND Nebulizer, Every 4 hours Dextromethorphan-Guaifenesin 20 mg-200 mg/10 mL Liqu UD [...] ??80 mg, Chew, 3 times a day Lab Results Cardiology Labs WBC:??11.2 k/mm3??High (10/14/22) RBC: 4.26 m/mm3 (10/14/22) Hgb:??9.4 Gm/dL??Low (10/14/22) Hct:??30.9 %??Low (10/14/22) MCV:??72.5 femtoliters??Low (10/14/22) MCH:??22.1 pg??Low (10/14/22) MCHC:??30.4 g/dL??Low (10/14/22) Platelet Count: 330 k/mm3 (10/14/22) RDW-SD: 46.5 femtoliters (10/14/22) Nucleated RBC (Automated): 0 #/100 WBC'S (10/14/22) Abs. Neut:??7.3 k/mm3??High (10/11/22) Abs. Lymph: 1.6 k/mm3 (10/11/22) Abs. Hemphill: 0.9 k/mm3 (10/11/22) Abs. Eo: 0.3 k/mm3 (10/11/22) Abs. Baso: 0.1 k/mm3 (10/11/22) Neut %: 71.8 % (10/11/22) Hemphill %: 8.6 % (10/11/22) Eos %: 3 % (10/11/22) Baso %: 0.5 % (10/11/22) Imm Gran: 0.3 % (10/11/22) Abs. Imm Gran: 0 k/mm3 (10/11/22) INR: 1.1 (10/11/22) Protime (PT):??11.8 seconds??High (10/11/22) APTT: 26.9 seconds (10/11/22) Sodium: 139 mmol/L (10/14/22) Potassium: 3.7 mmol/L (10/14/22) Chloride: 98 mmol/L (10/14/22) Bicarbonate Level:??35 mmol/L??High (10/14/22) Glucose Level:??65 mg/dL??Low (10/12/22) Hemoglobin A1C (Monitoring):??5.9 %??High (10/11/22) BUN:??34 mg/dL??High (10/14/22) Creatinine-Blood:??1.5 mg/dL??High (10/14/22) Calcium: 9.1 mg/dL (10/12/22) Protein, Total: 6.6 Gm/dL (10/12/22) Albumin: 3.5 Gm/dL (10/12/22) Alkaline Phosphatase:??134 units/L??High (10/12/22) AST (SGOT): 15 units/L (10/12/22) ALT (SGPT): 11 units/L (10/12/22) Bilirubin, Total: 0.5 mg/dL (10/12/22) Troponin T Quant: <0.01 (07/31/22) Nt-Probnp:??1662 pg/mL??High (10/11/22) Cholesterol: 126 mg/dL (10/11/22) Triglycerides: 69 mg/dL (10/11/22) HDL Cholesterol: 46 mg/dL (10/11/22) LDL Cholesterol: 66 mg/dL (10/11/22) Non HDL Cholesterol: 80 mg/dL (10/11/22) Diagnostic Impression ECG ECG 12-Lead * Preliminary * ?? 07:40:03 Please click on pdf link to open report Echo Echocardiogram - Complete ?? 11:31:39 Summary Normal left ventricular size and function with ejection fraction of 60-65%. No focal wall motion abnormalities. The left ventricular wall thickness is mildly increased. Normal right ventricular size and function. The left atrium is moderately to severely dilated. There is severe aortic stenosis (mean gradient 58 mmHg, peak velocity 4.7 m/s, JULIETTE 0.5 cm2, dimensionless index 0.17, based upon an LVOT measurement of 2.0 cm). There is mild aortic regurgitation. There is mild tricuspid valve regurgitation. Mild pulmonary hypertension with PA systolic pressure 30 mmHg (assuming RA pressure of 3 mmHg). ?? Comparison No prior study available for comparison. Per pt, she has Echocardiogram at [facility]. ?? Signature ?? Signed By: Deep VORA, Sunny VL Studies VL Carotid Duplex Scan Bilat ?? 12:01:37 Summary: Right Side: 1-49% stenosis in the Internal Carotid Artery. Antegrade flow in the Vertebral Artery, but there may be delayed upstroke and a more proximal stenosis is not excluded. Biphasic flow is seen in the Subclavian Artery. ?? Left Side: 1-49% stenosis in the Internal Carotid Artery. Antegrade flow in the Vertebral Artery. Biphasic flow is seen in the Subclavian Artery. ?? Signed By: Randy Lucas MD Cardiac Cath Procedure Cardiac Cath Procedure ?? 08:20:00 Conclusions ?? Diagnostic Summary 77-year-old female with history of hypertension hyperlipidemia COPD JOSE diabetes PAD CKD stage III progressive significant calcific aortic stenosis and moderate multivessel CAD presenting with fatigue progressive dyspnea abdominal pain presenting for left and right heart catheterization. ?? Ultrasound-guided right common SALES PROGRAM MANAGER and right SALES PROGRAM MANAGER access with 5 and 6 Malagasy sheath respectively. Right radial access was aborted due to occluded proximal vessel. ?? Left main is a large-caliber vessel with mild calcific plaque. LAD is a medium to large caliber vessel with proximal eccentric 75 to 80% heavily calcified diffuse disease with diffusely diseased mid distal LAD. Mild to moderate ostial diagnosis with normal flow. Circumflex is a medium to large caliber vessel with heavily calcified eccentric proximal 70% plaque and normal flow in 2 OM???s. OM 2 has moderate 65 to 70% ostial plaque with normal flow. RCA is a large dominant vessel with moderate to significant 75 to 80% focal calcified plaque in the midsegment with normal flow in PDA and PLB. ?? Mildly elevated LVEDP at 20. Moderate systemic hypertension. Mean gradient of 60 with pullback across aortic valve. ?? RA pressure 12, RV 46/10 PA pressure 48/18 with mean of 30, pulmonary capillary wedge pressure mean around 25 with V waves up to 30. Mixed venous sat of 58 with calculated Mandy cardiac index of 2 L/min/m2 PVR of 3. Successful hemostasis of the right common femoral venous or arterial sheath with manual compression. ?? Diagnostic Recommendations Continue aspirin 81 mg daily. Continue to optimize medications for hypertension hyperlipidemia diabetes and optimize cardiovascular risks. Elevated filling pressures and she will benefit from chronic diuretic therapy. Watch renal functions. She is very poorly functional with minimal mobility, PAD and spinal stenosis. We will continue discussion with the family their willingness to proceed with further TAVR evaluation with CTA etc. We will get cardiac surgery consultation as an outpatient. Follow-up with Dr. James in [place] office. ?? ACC Diagnostic Recommendations: Medical therapy and/or counseling. ?? Complications:None. ?? Signatures ?? Signed By: Tera Sutherland MD * Tera Sutherland MD: PERFORM Event Display: Progress Note Hospital Authored Date: I have??discussed and examined the patient with the PA/GANG RIPSAW OPERATOR, spending substantive time reviewing??HPI/ROS??with patient and performed physical exam. I??agree with above noted physical exam, assessment and plan as outlined with addendum/exceptions??as noted below.??Reviewed recommendations and plan with Patient and involved providers. ? She had TAVR CTA and heart team eval. Intermediate to high surgical risk and team and patient optedfor TAVR. Higher vascular risk. but can be accessed on R SALES PROGRAM MANAGER. Ef preserved. Ongoing pulm congestion. Continue IV lasix as long as renal fx stabel and we will set up OP tavr in a few weeks. Note * Pushpa Israel RN: PERFORM Event Display: Discharge/Transfer Note Hospital Authored Date: Nursing Discharge Note Entered On: 10/15/2022 16:20 EST Performed On: 10/15/2022 16:20 EST by Pushpa Israel RN Nursing Discharge Note 2 Discharge Time : 10/15/2022 16:10 EST Discharge Level of Care at Discharge : Home/Fci/Foster Care Patient Left Unit Via : Wheelchair Patient Accompanied Off Unit with : Responsible adult DC Instructions Provided & Signed by Pt : Yes Patient Understands D/C Instructions : Yes Patient Instructions Discharge Signed : Yes Did Pt have Specialty Bed or Wound Vac : No Pushpa Israel RN - 10/15/2022 16:20 EST * Gabriel Hernandez MD: PERFORM, MODIFY, MODIFY Event Display: Discharge/Transfer Note Hospital Authored Date: Patient: ??KHLOE MARTINEZ ? Age:??77 Years?Sex:??Female?:??1945?? Patient Information Discharge Location: Primary Care Physician: Daniel Johnston MD Admit Date/Time: 10/11/22 15:38 Discharge Disposition Discharge Disposition: Home with Home Health Discharge Diagnosis CHF exacerbation (I50.9) ?? _ Discharge Medications Amlodipine (amLODIPine 10 [...] tablet)?1?tab(s)?10?Milligram?By Mouth?Daily in AM Ergocalciferol (Vitamin D 95045 iu oral capsule)?50,000?International Unit?1?capsule?By Mouth?Every week fluticasone/umeclidinium/vilanterol [...] oral tablet)?1?tab(s)?20?Milligram?By Mouth?2 times a day?for 30?Days ? Medications Started empagliflozin (empagliflozin 10 mg oral tablet)?1?tab(s)?10?Milligram?By Mouth?Daily in AM torsemide (torsemide 20 mg oral tablet)?1?tab(s)?20?Milligram?By Mouth?2 times a day?for 30?Days ?? Medications Discontinued Lasix 40 mg daily Doses Changed Reduce hydralazine to 25mg ??2 times a day Hospital Course ?? 77-year-old female with history significant for hypertension, hyperlipidemia, type 2 diabetes???insulin-dependent, underlying COPD/obstructive sleep apnea, anemia, recurrent UTIs, poor functional status, chronic diastolic CHF,?? 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 Acute on chronic diastolic CHF, back to baseline 02 Severe aortic stenosis pw worsen SOB baseline home 2L o2 for her asthma recently cath in 07/2022 ?? Plan HF CCA cardiology consult and recommendation appreciated Follow-up??with cardiology and??cardiac surgery for outpatient TAVR CT TAVR heart, CT angiogram TAVR??chest abdomen pelvis, bilateral carotid Doppler Continue Lasix 40 mg twice daily cont ASA, statin Nitrates Coreg to 12.5 mg twice daily as bradycardia with holding parameters reduce Hydralazine to 25mg BID ? Right renal cyst Incidental finding on abdominal TAVR??CAT scan, outpatient follow-up with renal Non emergent??MRI with renal mass protocol ?? concern of abdominal wall cellulitis on CT scan Patient afebrile, WBC improved.?? Not complaining of any abdominal pain. No tenderness on palpation ?? As patient hemodynamically stable,??no further work-up??inpatient??she will be discharged home. PT recommended homehealth Patient??and family??at bedside in agreement with the discharge planning ? Objective Vital Signs?? Temperature: 97.9 DegF (10/15/22 12:09:00) Temperature Route: Oral (10/15/22 12:09:00) Pulse Rate: 55 bpm (10/15/22 12:09:00) Respiratory Rate: 18 br/min (10/15/22 12:09:00) Systolic Blood Pressure: 138 mm Hg (10/15/22 12:09:00) Diastolic Blood Pressure:??37 mm Hg??Low (10/15/22 12:09:00) Blood pressure sites: Arm, left (10/15/22 12:09:00) Mean Arterial Pressure: 71 mm Hg (10/15/22 12:09:00) Pulse Pressure: 101 mm Hg (10/15/22 12:09:00) Oxygen Saturation: 100 % (10/15/22 12:09:00) Liters per Minute: 2 L/min (10/15/22 12:09:00) Mode of Delivery (Oxygen): Nasal cannula (10/15/22 12:09:00) Early Warning Score: 2 (10/15/22 12:15:11) ? . Physical Exam Constitutional: Alert, in no distress. Spoke with senior education specialist Mental Status: Oriented to person, place and time. Head: Normocephalic. Neck: Supple, Full range of motion. Respiratory: Clear to auscultation. No wheezing, rales or rhonchi. Cardiovascular: S1 S2 regular. No murmurs, rubs or gallops. Gastrointestinal: Abdomen soft, non-tender, non-distended. Normal bowel sounds. No pulsatile mass. No hepatosplenomegaly. Neurologic:?? Moves all extremities spontaneously. Sensation intact bilaterally.?? Musculoskeletal: No cyanosis or clubbing. No gross deformities. Normal range of motion. Psychiatric: Normal mood and affect Pending Results COVID-19 (2019 Novel Coronavirus) PCR ordered on 10/15/2022 Patient Education Titles Heart Failure: Being Active?? Follow-Up Appointments Added Follow Up ?Time Frame ?Comments Koko VORA, Tera?1 to 2 weeks Daniel Johnston MD?1 to 2 weeks Patient Instructions please follow up with the PCP and cardiology outpatient. You are now on torsemide 20 2 times a day instead of furosemide. Also added empagliflozin for cardioprotective activity Home Health Face to Face *Denotes mandatory pittman ?? *I certify that this patient is under my care and that I or an allowed non- physician working with me had a face to face encounter with the patient on this date:??10/15/2022 13:43 ?? *The encounter with the patient was in whole, or in part, for the following medical condition, which is the primary diagnosis(es) for home health care:??CHF exacerbation (I50.9) ? *Select the indications for the discipline/s that are being arranged for this patient. Nursing (select all that apply): [_] None [X] Medication management (reconciliation, teaching)?? [_] Chronic disease management?? [_] Wound care and treatment?? [_] Home safety evaluation [_] Administer SQ/IM/IV medications?? [_] Cath care?? [_] Drain care?? [_] Trach or GT care?? Other _ Occupation Therapy (select all that apply): [_] None [X] ADL Management [X] Fall prevention training [X] Energy conservation [_] Cognitive training Other _ Physical Therapy (select all that apply): [_] None [X] Functional mobility training [X] Home exercise program to strengthen [X] Increase ROM?? [_] Falls prevention training [_] Home maintenance program for chronic disease Other _ Speech Therapy (select all that apply): [X] None [_] Swallow evaluation and training [_] Speech and language training [_] Cognitive training to process, organize, and/or recall information Other _ ? *Homebound due to (select all that apply): [_] Inability to leave home without assistance/supervision [_] Inability to ambulate without assistance [_] Pain [X] Decreased strength and endurance [_] Unsteady gait [_] Severe SOB and fatigue [_] Impaired transfers [_] Inability to negotiate stairs [_] Limited weight bearing [_] Mental status change? *Physician Signature:??Gabriel Hernandez ?? *By signing this, I certify that I have personally evaluated the patient and agree with the findings and recommendations as documented above. ? FTF 40??minutes spent on discharge ?? The note was dictated by using dragon. All grammatical and typographical errors were corrected to the best of my knowledge. Please do not hesitate to contact me with any questions. ?? Gabriel Hernandez MD Pager: [phone] ?? * Lindy CORTEZ, Pushpa: PERFORM Event Display: Patient Education/Instruction Authored Date: [id number] Inpatient Adult Discharge Instructions [address] [address] Name: KHLOE MARTINEZ : 1945 Visit: 10/11/2022 15:38:00 Current Date: 10/15/2022 14:01 Account: [id number] Inpatient Adult Discharge Instructions We would like [...] and their families. Surveys are administered by [employer] ?? If further treatment with your primary care physician or another doctor is recommended, it is important for you to keep the appointment. Call your primary care physician or return to the Emergency Department immediately if your condition worsens, fails to improve, or new symptoms develop. If you need to find a doctor, you can call [email or web address] for a referral at [phone] or toll free at [phone]) or log in to [email or web address].. ?? You can view and manage your care through the patient portal or by using a health care [place] of your choosing. [email or web address] is a website that allows you to securely view your medical information including your hospital discharge summary, office visit summaries, medications and follow-up visits. You can also request appointments, renew medications, and request access to your medical information using a health care [place] of your choosing, or just ask a question. You can enroll at [email or web address] or register during your next office visit. You have been discharged from [facility], Patient Care Unit: M6. If you have any questions regarding these instructions after you leave, please call us and we will be happy to assist you. [facility] Your Care Team Attending Physician Mary VORA, Gabriel Consulting Providers Geoff VORA, Donavan Discharging Providers Mary VORA, Gabriel Reason for Admission CHF Your Diagnosis CHF exacerbation Tests Performed Below is a partial list of the tests performed during your hospitalization. You may have had other tests and procedures not included in this list. Please discuss all test results with your provider. BNP BUN CBC CBC w/ Differential Comprehensive Metabolic Panel COVID-19 (2019 Novel Coronavirus) PCR Creatinine Electrolytes GLUCOSE POC Hemoglobin A1C (Monitoring) INR Lipid Panel Magnesium Level Phosphorus Level PTT CXR Portable TAVR Angio Abdomen and Pelvis (CT) TAVR Angio Chest (CT) TAVR Heart (CT) Primary Care Provider Daniel Johnston MD Advance Directive Health Care Proxy on File No Patient refuses to discuss No qualifying data available. Discharge Vitals Temperature: 97.9 DegF Height: 150 cm Pulse Rate: 55 bpm ?? Respiratory Rate: 18 br/min ?? Systolic Blood Pressure: 138 mm Hg ?? Diastolic Blood Pressure:??37 mm Hg??Low ?? Oxygen Saturation: 100 % ?? Studies Pending All tests and labs ordered during this hospital stay have been completed unless listed below. Please discuss all pending results with your provider listed above in these instructions. ?? COVID-19 (2019 Novel Coronavirus) PCR What to do next Instructions From Your Doctor please follow up with the PCP and cardiology outpatient. You are now on torsemide 20 2 times a day instead of furosemide. Also added empagliflozin for cardioprotective activity ?? outpatient follow up Indeterminate lesion within the mid right kidney, possibly a hyperdense cyst. However, a soft tissue mass/malignancy is not completely excluded. Follow-up renal mass MR recommended. ?? Discharge Orders You Need to Schedule the Following Appointments Follow Up with??Koko VORA, Tera When??Within 1 to 2 weeks Where: [address] [facility] [place] [address]- Follow Up with??Preston VORA, Daniel Garcia When??Within 1 to 2 weeks Where: [address] [place] [address]- Discharge Medications KHLOE MARTINEZ :1945 Visit Date:10/11/2022 Medications: Please continue your medications until treatment is completed or stopped by your provider. Medications not listed below should be discontinued. Discuss any questions related to medications with your provider. What How Much When Instructions Next Dose New empagliflozin (empagliflozin 10 mg oral tablet) 1 tab(s) Oral Daily in the morning Pickup at [place] [address] Tomorrow morning New torsemide (torsemide 20 mg oral tablet) 1 tab(s) Oral Twice a day Duration: 30 Days Pickup at [place] [address] Tomorrow morning Changed hydrALAZINE (hydrALAZINE 25 mg oral tablet) 1 tab(s) Oral Twice a day Pickup at [place] [address] Tonight at bedtime Unchanged Amlodipine (amLODIPine 10 mg oral tablet) 1 tab(s) Oral Daily Tomorrow morning Unchanged Aspirin (aspirin 81 mg oral delayed release tablet) 1 tab(s) Oral Daily at Bedtime Tonight at bedtime Unchanged Atorvastatin (atorvastatin 40 mg oral tablet) 1 tab(s) Oral Daily at Bedtime Tonight at bedtime Unchanged Brimonidine Ophthalmic (brimonidine 0.2% ophthalmic solution) 1 Drops Both eyes Twice a day Tonight at bedtime Unchanged Carvedilol (carvedilol 25 mg oral tablet) 1 tab(s) Oral Twice a day Tonight at bedtime Unchanged Cyanocobalamin (Vitamin B-12 1000 mcg oral tablet) 1 tab(s) Oral Daily continue home regimen Unchanged Ergocalciferol (Vitamin D 91982 iu oral capsule) 50,000 International Unit Oral Every week continue home regimen Unchanged fluticasone/ umeclidinium/ vilanterol (Trelegy Ellipta 200 mcg-62.5 mcg-25 mcg/ inh inhalation powder) 1 puff(s) Inhalation Daily at the same time every day ?? continue home regimen Unchanged Folic Acid (folic acid 1 mg oral tablet) 1 tab(s) Oral Daily continue home regimen Unchanged Gabapentin (gabapentin 300 mg oral capsule) 1 capsule Oral Daily at Bedtime Tonight at bedtime Unchanged Insulin Aspart (NovoLOG FlexPen 100 units/ mL injectable solution) 3 unit(s) Subcutaneous Injection 3 times a day before meals INJECT 5-10 UNITS SUBCUTANEOUSLY THREE TIMES DAILY DIRECTED ?? continue home regimen Unchanged Insulin Glargine (Toujeo SoloStar 300 units/ mL subcutaneous solution) 34 unit(s) Subcutaneous Injection Daily in the morning continue home regimen Unchanged Latanoprost Ophthalmic (latanoprost 0.005% ophthalmic solution) 1 Drops Both eyes Daily in PM continue home regimen Unchanged Montelukast (montelukast 10 mg oral tablet) 1 tab(s) Oral Daily before dinner Today before dinner Pharmacy Information [facility] 3: [address], [place] [id number] [phone] ?? What How Much When Comments Stop Taking Budesonide-Formoterol (Symbicort 160mcg/ 4.5mcg Inhaler) 2 puff(s) Inhalation Twice a day Stop Taking Furosemide (furosemide 40 mg oral tablet) 1 tab(s) Oral Daily Test Results Below is a partial list of the most recent Laboratory test results done prior to this discharge. You may have had other tests and procedures not included in this list. Please discuss all test resultswith your provider. BNP (10/11/2022) ???Nt-Probnp - 1662 pg/mL BUN (10/15/2022) ???BUN - 34 mg/dL CBC (10/15/2022) ???WBC - 9.5 k/mm3???RBC - 4.39 m/mm3???Hgb - 9.7 Gm/dL???Hct - 31.8 %???MCV - 72.4 femtoliters???MCH - 22.1 pg???MCHC - 30.5 g/dL???Platelet Count - 335 k/mm3???RDW-SD - 46.5 femtoliters???MPV - 9.4femtoliters???Nucleated RBC (Automated) - 0.0 #/100 WBC'S???Abs. NRBC - 0.0 k/mm3 CBC w/ Differential (10/11/2022) ???WBC - 10.1 k/mm3???RBC - 4.29 m/mm3???Hgb - 9.7 Gm/dL???Hct - 31.4 %???MCV - 73.2 femtoliters???MCH - 22.6 pg???MCHC - 30.9 g/dL???Platelet Count - 364 k/mm3???RDW-SD - 47.3 femtoliters???MPV - 9.0 femtoliters???Nucleated RBC (Automated) - 0.0 #/100 WBC'S???Abs. NRBC - 0.0 k/mm3???Abs. Neut - 7.3 k/mm3???Abs. Lymph - 1.6 k/mm3???Abs. Hemphill - 0.9 k/mm3???Abs. Eo - 0.3 k/mm3???Abs. Baso - 0.1 k/mm3???Neut % - 71.8 %???Lymph % - 15.8 %???Hemphill % - 8.6 %???Eos % - 3.0 %???Baso % - 0.5 %???Imm Gran- 0.3 %???Abs. Imm Gran - 0.0 k/mm3 Comprehensive Metabolic Panel (10/12/2022) ???Sodium - 145 mmol/L???Potassium - 4.0 mmol/L???Chloride - 103 mmol/L???Bicarbonate Level - 30 mmol/L???Anion Gap - 12???Glucose Level - 65 mg/dL???BUN - 26 mg/dL???Creatinine-Blood - 1.6 mg/dL???Estimated GFR Creatinine - 34 ML/MIN/1.73 M2???Calcium - 9.1 mg/dL???Protein, Total - 6.6 Gm/dL???Albu min - 3.5 Gm/dL???AG Ratio - 1.1???Alkaline Phosphatase - 134 units/L???AST (SGOT) - 15 units/L???ALT (SGPT) - 11 units/L???Bilirubin, Total - 0.5 mg/dL COVID-19 (2019 Novel Coronavirus) PCR (10/12/2022) ???COVID-19 PCR Specimen Source - NASAL???COVID-19 PCR Result - NEGATIVE Creatinine (10/15/2022) ???Creatinine-Blood - 1.5 mg/dL???Estimated GFR Creatinine - 37 ML/MIN/1.73 M2 Electrolytes (10/15/2022) ???Sodium - 142 mmol/L???Potassium - 4.0 mmol/L???Chloride - 102 mmol/L???Bicarbonate Level - 32 mmol/L???Anion Gap - 8 GLUCOSE POC (10/15/2022) ???Glucose, POC - 207 mg/dL Hemoglobin A1C (Monitoring) (10/11/2022) ???Hemoglobin A1C (Monitoring) - 5.9 % INR (10/11/2022) ???INR - 1.1???Protime (PT) - 11.8 seconds Lipid Panel (10/11/2022) ???Cholesterol - 126 mg/dL???Triglycerides - 69 mg/dL???HDL Cholesterol - 46 mg/dL???LDL Cholesterol - 66 mg/dL???Non HDL Cholesterol - 80 mg/dL Magnesium Level (10/15/2022) ???Magnesium - 2.3 mg/dL Phosphorus Level (10/11/2022) ???Phosphorus - 4.2 mg/dL PTT (10/11/2022) ???APTT - 26.9 seconds Allergies (NKA means No Known Allergies) Motrin??(High BP) Percocet 7.5/325??(hallucinations) Problems Active Problems??(6) Asthma?? Cardiac catheterization?? Diabetes mellitus?? Hyperlipidemia?? Hypertension?? Obese class II?? Education Materials Below is the list of Educational Leaflet Providered with your Discharge Instructions. Discharge Instructions for Heart Failure?? Heart Failure: Know Your Baselines?? My Heart Failure Symptoms Chart?? What Is Heart Failure?? Heart Failure: Being Active?? Valuables and Belongings I fully understand and agree that [facility] accepts no responsibility for all my personal [...] family Date for Pt to Sign Valuables/Belongings: 10/11/22 17:29:00 ?? Other Discharge Information ? Pulmonary Rehab Status?? Pulmonary Rehab Discharge Status?? Respiratory Rate: 18 br/min ? Common Emergency Awareness Tips IS [...] are strongly encouraged to quit. Please call [employer] at [phone] or [phone] or log in to [email or web address] for referrals to smoking cessation programs. ?? The National Suicide Prevention Hotline is available 26/04 if you or someone you know needs to find a reason to keep living. By calling 1-360-176-smvj (5585) you'll be connected to a skilled, trained counselor at a crisis center in your area. INPATIENT DISCHARGE INSTRUCTIONS SIGNATURE PAGE KHLOE MARTINEZ Location:[facility] Registration Date and Time:10/11/2022 15:38 EST Primary Care Physician: Preston VORA, Daniel Garcia, I MARTINEZKHLOE, have received the above patient education materials/instructions and have verbalized understanding. If ambulance or transport services are being used I further acknowledge being given a choice of service. ?? If you need to contact me, please call me at this number: . Patient/Feeder Worker Power Unit Operator Name: Patient/Feeder Worker Power Unit Operator Signature: Relationship to Patient: Witness Name/Signature: Date: * Pushpa Israel RN: PERFORM Event Display: Patient Education Leaflets Authored Date: [id number] Discharge Instructions for Heart Failure ?? [address]52 Instrucciones de elizabeth para la insuficiencia card??jaun [...] y siguiendo las indicaciones que le d?? dubon m??dico. Actividad f??brad Pregunte al proveedor de atenci??n m??dica sobre un programa de ejercicios. Algunas actividades sencillas, olga caminar o hacer jardiner??a, pueden ayudarlo. Hacer ejercicio f??sico lizette todos los d??as de la semana puede hacer que se sienta mejor. No se desaliente si dubon avance es lento al principio. Descanse lo necesario. Detenga la actividad si presenta s??ntomas, olga dolor de pecho, aturdimiento o falta de aire. Busque actividades que disfrute. Por ejemplo, caminar a paso ligero, bailar, nadar y hacer jardiner??a. Estas actividades lo ayudar??n a mantenerse activo y fortalecer el coraz??n. Consulte con dubon proveedor de atenci??n m??dica acerca de seguir un programa de rehabilitaci??n card??jaun. Un programa de nancy tipo lo ayudar?? a ejercitarse de forma vaughan. ?? Dieta Siga luigi dieta kaylynn para el coraz??n. Esfu??rcese por limitar el consumo de rell (sodio) en shantal comidas. La rell hace que dubon cuerpo retenga agua. [place] hace que el coraz??n trabaje m??s porque hay m??s l??quido para bombear. Para consumir menos rell, corky olga se lo indic?? el proveedor de atenci??n m??dica, puede hacer lo siguiente: ??? Limite el consumo de alimentos enlatados, secos, envasados y de preparaci??n r??pida. ??? No agregue rell a dubon comida. ??? Sazone las comidas con hierbas en lugar deusar rell. ??? Cuide la cantidad de l??quidos que sheryl. Si sheryl demasiada cantidad de l??quidos, esopuede empeorar dubon insuficiencia card??jaun. Consulte con dubon proveedor de atenci??n m??dica cu??nto debe beber por d??a. ??? Reduzca el consumo de bebidas alcoh??licas. Pueden ser perjudiciales para sucoraz??n. Las mujeres no deber??an monica m??s de luigi bebida alcoh??lica al d??a. Los hombres no deber??an monica m??s de dos bebidas alcoh??licas al d??a. ??? Cuando salga a comer, pida que dubon comida no tenga rell agregada. ??? Consulte con dubon proveedor de atenci??n m??dica antes de usar estos sustitutos de la rell. Suelen tener potasio. Puede ser perjudicial para la daniela. [place] depender?? de qu?? moser ludwin funcionen shantal ri??ones y de los medicamentos que est?? usando. Algunas personas necesitan potasio adicional. Otros no. ?? Tabaco Es importante dejar de fumar si fuma. Fumar aumenta el riesgo de sufrir un ataque al coraz??n ya que da??a los vasos sangu??neos que llevan ox??marcus al coraz??n. De esta manera, puede empeorar dubon insuficiencia card??jaun. Dejar de fumar es lo m??s importante que puede hacer para mejorar dubon daniela. Inscr??base en un programa para dejar de fumar a fin de aumentar shantal probabilidades de ??xito. Consulte con dubon proveedor de atenci??n m??dica acerca de medicamentos o la terapia de reemplazo de nicotina. Tambi??n preg??ntele acerca de los grupos de apoyo para dejar de fumar. ?? Medicamentos Loa shantal medicamentos exactamente seg??n lo que le hayan indicado. Aprenda el nombre y el prop??sito de cada maxim de shantal medicamentos. Lleve siempre con usted luigi lista precisa de shantal medicamentos, que incluya las dosis que keo actualmente de cada maxim. No omita ninguna dosis. Si se olvida luigi dosisde dubon medicamento, debe ingerirla moser pronto se d?? cuenta del olvido. Si se saltea luigi dosis y ya es la hora de la dosis siguiente, espere y tome la dosis siguiente a la hora que le corresponde. No tome luigi dosis doble. Si no est?? seguro, llame al consultorio de dubon m??dico. Aseg??rese de que no mezclar shantal medicamentos y tampoco se olvide lo que kari?? shade d??a. Restablezca dubon receta antes de que se acabe el medicamento. Hable con dubon proveedor de atenci??n m??dica si tiene dificultades para pagar los medicamentos. ?? Controle dubon peso Controle dubon peso todos los d??as. Un aumento de peso repentino puede indicar que la insuficiencia card??jaun est?? empeorando. Controle dubon peso a la misma hora cada d??a y con el mismo tipo de ropa. Lo ideal ser??a que se pese en cuanto se levante por la ma??meg, despu??s de keyla vaciado dubon vejiga,walter antes de monica el desayuno. El [...] de chequeos y an??lisis de laboratorio para samuel si shantal medicamentos est??n funcionando ludwin y para samuel c??mo est?? dbuon daniela. Debe entender que dubon daniela e incluso dubon kentrell dependen de que siga las recomendaciones [...] de atenci??n m??dica. ?? Cu??ndo llamar a dubon proveedor de atenci??n m??dica Llame al proveedor de atenci??n m??dica de inmediato si presenta alguno de los siguientes s??ntomasde que la insuficiencia card??jaun est?? empeorando: ??? Aumento repentino de peso. [place] significa m??s de 900??gramos (2??libras) en 1??d??a [...] visi??n ?? Last Reviewed Date: 2021 ?? 9224-1055 [employer]. Todos los derechos reservados. Esta informaci??n no pretende sustituir la atenci??n m??dica profesional. S??lo dubon m??dico puede diagnosticar y tratar un problema de daniela. ?? * Lindy CORTEZ, Pushpa: PERFORM Event Display: Patient Education Leaflets Authored Date: [id number] Heart Failure: Know Your Baselines ?? [id number] Insuficiencia card??jaun: conozca shantal valores de referencia El primer paso para controlar los s??ntomas de la insuficiencia card??jaun es conocer cu??l es dubon estado normal. ??Cu??nta actividad puede hacer sin que la falta de aire sea un problema? ??Le resultanc??modos las medias y los zapatos? ??Cu??nto pesa? El modo en que, por lo general, se sienten los s??ntomas constituye shantal valores de referencia. Si conoce dubon estado normal, ser?? m??s f??cil darse cuenta cuando los s??ntomas empeoran. Lo sabr?? porque ya no se sentir?? normal. El empeoramiento de los s??ntomas significa que el coraz??n est?? bajo presi??n. Le elio bombear naila al kimmy del cuerpo, y quiz??s el cuerpo retenga l??quidos. Anote algunos valores de referencia en el cuadro de abajo. As?? podr?? evaluar shantal s??ntomas. Dubon proveedor de atenci??n m??dica puede ayudarle a conocer shantal referencias para evaluar shantal s??ntomas. Preste atenci??n a los cambios Cuando sepa cu??les son shantal valores de referencia, preste atenci??n a los cambios diarios. Preste atenci??n a la cantidad de actividad que puede hacer hoy. ??Es la misma cantidad que robin? ??Le aprietan los zapatos? ??Necesita ajustarse el cintur??n en otro orificio? ??Puede recostarse por completoen la cama para dormir sin sentir que se asfixia? ??Puede comer sin sentirse lleno demasiado prontoo sin que le falte el aire? ??Est?? aumentando de peso, aunque come la misma cantidad de comida? Si los s??ntomas de hoy son diferentes a los de referencia, debe hacer algo. El problema no desaparecer?? por s?? solo. Por lo tanto, si nota, aunque sea, un cambio rickey??o, no lo pase por alto. El proveedor de atenci??n m??dica conf??a en que lo llame cuando crea que los s??ntomas hayan empeorado. Le dir?? qu?? hacer a continuaci??n. Al trabajar juntos, podr?? controlar la insuficiencia card??jaun y tener m??s d??as buenos. Hasta podr??a mantenerlo alejado de los hospitales. ?? Last Reviewed Date: 2021 ?? [employer]. All rights reserved. This information is not intended as a substitute for professional medical care. Always follow your healthcare professional's instructions. ?? * Lindy CORTEZ, Pushpa: PERFORM Event Display: Patient Education Leaflets Authored Date: [id number] My Heart Failure Symptoms Chart ?? 33488mm Last Reviewed Date: 2021 ?? 0831-4503 [employer]. All rights reserved. This information is not intended as a substitute for professional medical care. Always follow your healthcare professional's instructions. ?? * Don , [facility] S: Jim Tovar MD: VERIFY Event Display: Result: Authored Date: [id number] CT TAVR Angio Abdomen and Pelvis INDICATION: Reason: Aortic Stenosis; Clinical Question(s): Pre-TAVR , Pre-TAVR COMPARISON: 12/08/2010. TECHNIQUE: Spiral CTA was performed from the diaphragm through the proximal lower extremities afterthe intravenous administration iodinated contrast. 70 cc of Omnipaque 350 was administered intravenously. Volume rendered, maximum intensity projection, and curved planar reformat 2-D and 3-D angiographic projections of the data set were obtained and reviewed on an independent workstation, with images saved for review. Weight-based protocol using automatic tube modulation was used to optimize exposure parameters. RADIATION DOSE PARAMETERS: VASCULAR FINDINGS: Minimum aortic and iliofemoral luminal measurements are as follows: Aorta: 1.0 x 0.9 cm. Right common iliac: 0.8 x 0.6 cm. Right external iliac: 0.7 x 0.4 cm. Right common femoral: 0.6 x 0.2 cm. Left common iliac: 0.8 x 0.5 cm. Left external iliac: 0.7 x 0.4 cm. Left common femoral: 0.4 x 0.2 cm. Abdominal aorta: Severe calcification. No aneurysm or dissection. Celiac axis: Patent. Ostial calcification with mild to moderate stenosis. Conventional hepatic arterial branching pattern. Superior mesenteric artery: Coarse calcification proximally with focal occlusion versus high-grade stenosis. Inferior mesenteric artery: Patent. Right renal artery: Patent. Ostial calcification with mild stenosis. Left renal artery: Patent. Ostial calcification without stenosis. Iliofemoral arteries: Patent. Diffuse calcification. No aneurysm or dissection. NONVASCULAR FINDINGS: Teacher Advisor findings: Dense material within the colon identified, likely contrast from prior imaging studies. Visualized Chest: Please refer to the separate CTA chest report. Diaphragm: No acute abnormality. Liver: Unremarkable. Gallbladder: Status post cholecystectomy. Bile ducts: Prominent extrahepatic common bile duct, consistent with the patient's age and prior cholecystectomy. No obvious intraductal abnormality. The duct has a normal tapered appearance in the head of the pancreas. Spleen: Normal. Pancreas: Normal. Adrenal glands: Normal. Kidneys and ureters: Indeterminate and incompletely evaluated with this examination, possible rounded soft tissue density lesion within the mid right kidney measuring 1.8 cm, best appreciated in the coronal plane (image 46, series 604). No stone or hydronephrosis. Hypoattenuating lesion within the inferior pole of the right kidney measuring 1.2 cm, possibly a hyperdense cyst. Bladder: Partially obscured by beam hardening artifact. No evidence of an acute abnormality. Reproductive organs: Obscured by beam hardening artifact. No evidence of acute abnormality. Stomach, small bowel, and large bowel: Retained contrast within the cecum and sigmoid colon. No evidence of bowel obstruction. Likely physiologic distention of the stomach. No focal inflammatory process or wall thickening. Appendix: No evidence of acute appendicitis. Peritoneum and retroperitoneum: No ascites or pneumoperitoneum. No omental or mesenteric lesions. Lymph nodes: No enlarged lymph nodes. Abdominal and pelvic wall: Soft tissue calcifications of the inferior gluteal cleft bilaterally, left greater than right. Diffuse soft tissue edema of the lower anterior abdominal wall pannus. No loculated fluid collection. Loculated air collection in the lower left abdominal wall, likely secondaryto subcutaneous medicine injection. Bones: No acute fracture or dislocation. Diffuse degenerative changes. IMPRESSION: 1. Minimal aortic and iliofemoral measurements as outlined above. 2. No acute abnormality identified within the abdomen or pelvis. 3. Indeterminate lesion within the mid right kidney, possibly a hyperdense cyst. However, a soft tissue mass/malignancy is not completely excluded. Follow-up renal mass MR recommended. 4. Possible mild cellulitis of the lower anterior abdominal wall. Recommend clinical correlation. A critical result message (Yellow) has been communicated via the [employer] system on 10/14/2022 11:19 AM, Message ID [id number]. WSN: [id number] Ordering Physician: Tera Sutherland Dictated By: Jim Dewitt MD Dictated Date/Time: 10/14/22 11:20 a Reviewed By: Jim Dewitt MD Signed By: Jim Dewitt MD Signed Date/Time: 10/14/22 11:20 am Transcribed By: LESLYE Transcribed Date/Time: 10/14/22 10:59 am * CATERINASPchristosscrishannon , CIS S: CECELIA Jaimes MD, Andie Piedra: VERIFY Event Display: Result: Authored Date: [id number] Thoracic CTA, Retrospectively Gated (CT TAVR Heart, CT TAVR Angio Chest) HISTORY: Aortic stenosis. Increased risk surgical candidate. Assess aortic annulus and coronary ostial positions for possible transcatheter aortic valve replacement (TAVR). Assess thoracic aorta and upper extremity central vessels for arterial access. TECHNIQUE: TAVR protocol. A [employer] [place] scanner with 16 cm wide detector was employed. Automatic tube modulation based on attenuation from AP and lateral topograms was used to optimize exposure parameters. Contrast bolus tracking was used for timing. First, single-beat cardiac-gated CTA of the heart was performed using ECG-based dose modulation to limit dose.. Next, non-gated CT angiograms of the chest, and of the abdomen/pelvis/groins were performed using the same contrast bolus. In addition to standard axial angiographic reconstructions, 3-D multiplanar and MIP reconstructions were obtained from the heart, chest, and abdomen/pelvis studies on separate workstations, under direct radiologist supervision, and were saved to the [facility] PACS. The patient received 70 cc Ominqpaque 350 IV as well as saline flush. The CT angiogram examination of the abdomen/pelvis will be dictated separately. Weight-based protocol was performed using automatic exposure control. Comparison: CT of the chest 05/28/2020. FINDINGS: CIVIL ENGINEERING TECHNICIAN VIEW: No acute finding Aortic Valve: The aortic valve was severely calcified. Aortic Annulus: The aortic annulus was defined as the plane passing through the kimebrly of three aortic valve cusps. Annulus measurements in short and long axes were obtained at varying phases of the heart cycle during systole determined as percentages of RR interval. Perpendicular distances from this plane to the closest portion of the right coronary (RCA) and the left main coronary (LM) ostia were also measured. There is no significant calcium along the annulus. Phase Annulus Dimensions, Area, Perimeter; RCA; LM. 35% 27 x 21 mm, 426 mm^2, 75 mm; 17 mm; 13 mm. 65% 28 x 19 mm, 404 mm^2, 74 mm; 15 mm; 12 mm. Mitral Annulus: Moderate calcification. Thoracic Aorta: Aortic dimensions are as follows (outer diameter as measured in the short axis plane at each of thefollowing levels): Sinuses of Valsalva: 26 x 27 x 26 mm, outer diameter. Sinotubular junction: 20 x 24 mm, inner diameter. Ascending (maximum): 30 x 32 mm, outer diameter. Descending (maximum): 24 mm, outer diameter. Descending (minimum): 21 mm, inner diameter. Great Vessels: Right subclavian artery: Minimum diameter 5 x 4 mm. Right axillary artery: Minimum diameter 7 x 6 mm. Left subclavian artery: Minimum diameter 6 x 6 mm. Left axillary artery: Minimum diameter 7 x 6 mm. Additional Findings: The left atrium is moderately enlarged, no thrombus. There is heavy coronary artery calcification. Trachea and main bronchi are patent. There is no pneumothorax. There is small-sized left pleural effusion, moderate size right pleural effusion with adjacent atelectasis. There is scattered mosaic attenuation likely due to groundglass opacity relating to pulmonary edema, with infection/inflammation in the differential. This is new from 2019. Unremarkable chest wall. There are multiple borderline size mediastinal lymph nodes. No acute bony findings. IMPRESSION: Aortic valve annular dimensions, areas and perimeters, and coronary ostial distances as above. Moderately enlarged left atrium. Moderate size right pleural effusion, small sized left pleural effusion. Scattered mosaic attenuation likely relates to pulmonary edema, with infection/inflammation in the differential. If there is concern for other causes including air trapping/bronchiolitis or hypersensitivity pneumonitis etc., May consider dedicated HRCT of the chest. WSN: [id number] Ordering Physician: Tera Sutherland Dictated By: Andie Jaimes MD Dictated Date/Time: 10/14/22 2:17 pm Reviewed By: Andie Jaimes MD Signed By: Andie Jaimes MD Signed Date/Time: 10/14/22 2:17 pm Transcribed By: LESLYE Transcribed Date/Time: 10/14/22 1:57 pm * [facility] , CIS S: TRANSCRIBE Andie Jaimes MD: VERIFY Event Display: Result: Authored Date: [id number] Thoracic CTA, Retrospectively Gated (CT TAVR Heart, CT TAVR Angio Chest) HISTORY: Aortic stenosis. Increased risk surgical candidate. Assess aortic annulus and coronary ostial positions for possible transcatheter aortic valve replacement (TAVR). Assess thoracic aorta and upper extremity central vessels for arterial access. TECHNIQUE: TAVR protocol. A [employer] scanner with 16 cm wide detector was employed. Automatic tube modulation based on attenuation from AP and lateral topograms was used to optimize exposure parameters. Contrast bolus tracking was used for timing. First, single-beat cardiac-gated CTA of the heart was performed using ECG-based dose modulation to limit dose.. Next, non-gated CT angiograms of the chest, and of the abdomen/pelvis/groins were performed using the same contrast bolus. In addition to standard axial angiographic reconstructions, 3-D multiplanar and MIP reconstructions were obtained from the heart, chest, and abdomen/pelvis studies on separate workstations, under direct radiologist supervision, and were saved to the [facility] PACS. The patient received 70 cc Ominqpaque 350 IV as well as saline flush. The CT angiogram examination of the abdomen/pelvis will be dictated separately. Weight-based protocol was performed using automatic exposure control. Comparison: CT of the chest 05/28/2020. FINDINGS: CIVIL ENGINEERING TECHNICIAN VIEW: No acute finding Aortic Valve: The aortic valve was severely calcified. Aortic Annulus: The aortic annulus was defined as the plane passing through the kimberly of three aortic valve cusps. Annulus measurements in short and long axes were obtained at varying phases of the heart cycle during systole determined as percentages of RR interval. Perpendicular distances from this plane to the closest portion of the right coronary (RCA) and the left main coronary (LM) ostia were also measured. There is no significant calcium along the annulus. Phase Annulus Dimensions, Area, Perimeter; RCA; LM. 35% 27 x 21 mm, 426 mm^2, 75 mm; 17 mm; 13 mm. 65% 28 x 19 mm, 404 mm^2, 74 mm; 15 mm; 12 mm. Mitral Annulus: Moderate calcification. Thoracic Aorta: Aortic dimensions are as follows (outer diameter as measured in the short axis plane at each of thefollowing levels): Sinuses of Valsalva: 26 x 27 x 26 mm, outer diameter. Sinotubular junction: 20 x 24 mm, inner diameter. Ascending (maximum): 30 x 32 mm, outer diameter. Descending (maximum): 24 mm, outer diameter. Descending (minimum): 21 mm, inner diameter. Great Vessels: Right subclavian artery: Minimum diameter 5 x 4 mm. Right axillary artery: Minimum diameter 7 x 6 mm. Left subclavian artery: Minimum diameter 6 x 6 mm. Left axillary artery: Minimum diameter 7 x 6 mm. Additional Findings: The left atrium is moderately enlarged, no thrombus. There is heavy coronary artery calcification. Trachea and main bronchi are patent. There is no pneumothorax. There is small-sized left pleural effusion, moderate size right pleural effusion with adjacent atelectasis. There is scattered mosaic attenuation likely due to groundglass opacity relating to pulmonary edema, with infection/inflammation in the differential. This is new from 2020. Unremarkable chest wall. There are multiple borderline size mediastinal lymph nodes. No acute bony findings. IMPRESSION: Aortic valve annular dimensions, areas and perimeters, and coronary ostial distances as above. Moderately enlarged left atrium. Moderate size right pleural effusion, small sized left pleural effusion. Scattered mosaic attenuation likely relates to pulmonary edema, with infection/inflammation in the differential. If there is concern for other causes including air trapping/bronchiolitis or hypersensitivity pneumonitis etc., May consider dedicated HRCT of the chest. WSN: [id number] Ordering Physician: Tera Sutherland Dictated By: Andie Jaimes MD Dictated Date/Time: 10/14/22 2:17 pm Reviewed By: Andie Jaimes MD Signed By: Andie Jaimes MD Signed Date/Time: 10/14/22 2:17 pm Transcribed By: LESLYE Transcribed Date/Time: 10/14/22 1:57 pm Portable XR Chest Views * [facility] , CIS S: TRANSCRIBE Mayank Bartholomew MD: VERIFY Event Display: Result: Authored Date: [id number] Chest Portable INDICATION/CLINICAL QUESTION: Reason: CHF; Clinical Question(s): CHF / CHF TECHNIQUE: AP chest 0932 hours 10/12/2022. COMPARISON: 07/31/2022. FINDINGS: LINES AND TUBES: Absent. LUNGS AND PLEURA: RIGHT CHEST: Mild interstitial prominence in the lower lung. There is some consolidation/effusion at the right base.. LEFT CHEST: Interstitial prominence mid and lower lung with. Lungs otherwise clear. No effusion.. HEART AND MEDIASTINAL CONTOURS: Normal. BONES AND SOFT TISSUES: No acute abnormality.. IMPRESSION: 1. There is some bilateral interstitial prominence consistent with the clinically suspected CHF. 2. Opacification at the right base could simply represent effusion and atelectasis as part of heartfailure, but should be correlated clinically to exclude the possibility of bibasilar pneumonia. WSN: [id number] Ordering Physician: Lyndsay Viera Dictated By: Mayank Bartholomew MD Dictated Date/Time: 10/12/22 11:34 a Reviewed By: Mayank Bartholomew MD Signed By: Mayank Bartholomew MD Signed Date/Time: 10/12/22 11:34 am Transcribed By: LESLYE Transcribed Date/Time: 10/12/22 11:32 am Patient Care team information Care Team Personnel Name: Preston VORA, Daniel Garcia Position: [facility] Outreach Member Role: PCP Address: Address: [address] [place] [address]- Name: Carmen Guzman RN Position: [facility] RN Member Role: Primary Care Nurse Care Team Related Persons Name: VENKATA NASSAR Address: home [address] [address] Name: IWONA TABARES Address: [address] [place] [address]
--- OUTSIDE RECORDS SUMMARY | 2024-04-11 12:09 | XMS_ITS | Continuity of Care Document ---
Author Organization [facility] Address [address] [place] [address]- Care Team Providers Care Crepe Sole Wire Brusher Name Role Phone Turner Golden MD, Shelby Bear Primary Care Physician Encounter 04/10/23 - 06/03/23 [facility] [address] [place] [address]- Discharge Disposition: GOALS MET Allergies, Adverse Reactions, Alerts Substance Reaction Severity [...] Maintenance, 04/29/23 9:26:00 EDT,Route to Pharmacy Electronically, [facility], Partial fill upon patient request [...] 0 Refills, Maintenance, 10/15/22 12:54:00 EST, Tablet, [facility], Partial fill upon patient request [...] mg, By Mouth, Every other day, Chasidy mckenziea otro sukhi., # 30 tablet, Refills 0, Tot. Refills 0, Maintenance, 04/07/23 11:34:00 EDT, Route to Pharmacy Electronically, [facility], Partial fill upon patient request [...] Start Date: 04/17/23 Status: Ordered ULTIGUARD MIS [id number] ULTIGUARD MIS [id number], 0 Refills, Maintenance, 04/17/23 22:01:00 EDT Start Date: 04/17/23 Status: Ordered Vitamin B-12 1000 mcg oral tablet 1,000 mcg, 1, tablet, By Mouth, Daily, # 30 tablet, Refills 0, Maintenance, 07/30/22 18:26:00 EDT, Partial fill upon patient request if the prescription is for a schedule II opioid drug. Start Date: 07/30/22 Status: Ordered Vitamin D 15442 iu oral capsule 50,000 International_[employer]its, 1, capsule, By Mouth, Every week, Refills 0, Maintenance, 06/23/18 7:02:38 EDT Start Date: 06/23/18 Status: Ordered Problem List Condition Confirmation Course Effective Dates Status H ealth Status Informant Asthma Confirmed Active Cardiac catheterization Confirmed Active Diabetes mellitus Confirmed Active Hyperlipidemia Confirmed Active Hypertension Confirmed Active Severe obesity (BMI 35.0-39.9) with comorbidity Confirmed Active Social History Social History Type Response Smoking Status Never (less than 100 in lifetime) entered on: 12/21/18 Sex Patient Care team information Care Team Personnel Name: Maryann Zavala RN Position: [facility] RN Member Role: Primary Care Nurse Name: Randy Arriola RN Position: S RN Member Role: Primary Care Nurse Name: Dorothea Glaser Position: S RN Member Role: Primary Care Nurse Name: Marielle Tolbert RN Position: S RN Member Role: Primary Care Nurse Name: Ryanne Coleman RN Position: S RN Member Role: Primary Care Nurse Name: Mima Winters RN Position: S RN Member Role: Primary Care Nurse Name: Karen Villanueva RN Position: S RN Member Role: Primary Care Nurse Name: Turner Golden MD , Shelby Bear Position: Reference Physician Member Role: PCP Address: Address: [address] [place] [address] [address] [place] [id number] Name: Joe Miranda RN Position: S RN Member Role: Primary Care Nurse Name: Alycia Aguero RN Position: S RN Member Role: Primary Care Nurse Name: Tracy Ramon Position: S RN Member Role: Primary Care Nurse Care Team Related Persons Name: VENKATA NASSAR Address: home [address] [address] Name: IWONA TABARES Address: home [address] [place] [address]
--- OUTSIDE RECORDS SUMMARY | 2024-04-11 12:09 | XMS_ITS | Continuity of Care Document ---
Author Organization [facility] ter Address [address] [place] [id number] Care Team Providers Care Marine Steamfitter Name Role Phone Turner Golden MD, Hetal Primary Care Physician [phone] [facility] Date(s): 04/17/23 - 04/30/[address] [id number] Discharge Disposition: A-D/C Home Attending Physician: Carter Campos MD Admitting Physician: Damian Almonte MD Referring Physician: Damian Almonte MD Allergies, Adverse Reactions, Alerts Substance Reaction [...] oral tablet 10 mg, Tablet, By Mouth, 04/30/23 9:00:00 EDT Start Date: 04/30/23 Stop Date: 04/30/23 Status: Completed amLODIPine 10 mg oral tablet [...] Maintenance, 04/29/23 9:26:00 EDT,Route to Pharmacy Electronically, [facility] 3, Partial fill upon patient request if [...] 0 Refills, Maintenance, 10/15/22 12:54:00 EST, Tablet, [facility] 3, Partial fill upon patient request [...] sulfate 325 mg oral enteric coated tablet MONICA 1 TABLETA POR LA BOCA CADA OTRO JESSICA Start Date: 04/17/23 Status: Ordered ferrous sulfate 325 mg oral enteric coated tablet 325 mg, By Mouth, Every other day, Overton luigi capsula cada otro jessica., # 30 tablet, Refills 0, Tot. Refills 0, Maintenance, 04/07/23 11:34:00 EDT, Route to Pharmacy Electronically, [facility] 3, Partial fill upon patient request [...] oral tablet 25 mg, Tablet, By Mouth, 04/30/23 9:00:00 EDT Start Date: 04/30/23 Stop Date: 04/30/23 Status: Completed hydrALAZINE 25 mg oral tablet [...] Start Date: 04/17/23 Status: Ordered ULTIGUARD MIS [id number] ULTIGUARD MIS [id number], 0 Refills, Maintenance, 04/17/23 22:01:00 EDT Start Date: 04/17/23 Status: Ordered Vitamin B-12 1000 mcg oral tablet 1,000 mcg, 1, tablet, By Mouth, Daily, # 30 tablet, Refills 0, Maintenance, 07/30/22 18:26:00 EDT, Partial fill upon patient request if the prescription is for a schedule II opioid drug. Start Date: 07/30/22 Status: Ordered Vitamin D 92846 iu oral capsule 50,000 International_Units, 1, capsule, By Mouth, Every week, Refills 0, Maintenance, 06/23/18 7:02:38 EDT Start Date: 06/23/18 Status: Ordered Problem List Condition Confirmation Course Effective Dates Status H ealth Status Informant Asthma Confirmed Active Cardiac catheterization Confirmed Active Diabetes mellitus Confirmed Active Hyperlipidemia Confirmed Active Hypertension Confirmed Active Severe obesity (BMI 35.0-39.9) with comorbidity Confirmed Active Results Radiology Reports * Exam Date Time Procedure Performing Provider Status 04/28/23 6:24 AM Chest Portable Yamileth Flores; Auth (Ve rified) Notes: (Chest Portable) Reason For Exam: S/P TAVR;Postop RESULT: Chest Portable Chest Portable CLINICAL INDICATION: Reason: Postop; S P TAVR; Clinical Question(s): Other:; Cardiac Tamponade COMPARISON: Chest x-ray, 04/27/2023. FINDINGS: There has been removal of the previously noted inferior approach pacer lead. The cardiac silhouette is enlarged. Patient status post TAVR. There is calcification of the aortic arch. Mild hilar/vascular prominence is seen with hazy bibasilar opacity suggesting small layering effusions. There is no pneumothorax. No acute osseous abnormality is noted. IMPRESSION: Mild to moderate congestion was small bilateral pleural effusions. Underlying pneumonia not excluded. WSN: [id number] Ordering Physician: Sterling Plummer Dictated By: Barbara Pena MD Dictated Date/Time: 04/28/23 9:24 am Reviewed By: Barbara Pena MD Signed By: Barbara Pena MD Signed Date/Time: 04/28/23 9:24 am Transcribed By: LESLYE Transcribed Date/Time: 04/28/23 9:22 am * Exam Date Time Procedure Performing Provider Status 04/27/23 10:52 AM Chest Portable Stefanie Kearns; Auth ( Verified) Notes: (Chest Portable) Reason For Exam: S/P TAVR;Postop RESULT: Chest Portable Chest Portable REASON: Postop; S P TAVR; Clinical Question(s): Other:; Cardiac Tamponade; Special Instructions: onadmission to unit / Other: COMPARISON: 04/22/2023 FINDINGS: LINES AND TUBES: Inferior approach pacing lead. LUNGS AND PLEURA: The central pulmonary vasculature is prominent and indistinct. Diffuse interstitial prominence. No pleural effusion. No pneumothorax. HEART, MEDIASTINUM AND ANA: Heart appears enlarged but this is likely exaggerated by technique. Status post TAVR. BONES AND SOFT TISSUES: No acute abnormality. IMPRESSION: Mild interstitial pulmonary edema. WSN: [id number] Ordering Physician: Sterling Plummer Dictated By: Randy Montes De Oca MD Dictated Date/Time: 04/27/23 1:03 pm Reviewed By: Randy Montes De Oca MD Signed By: Randy Montes De Oca MD Signed Date/Time: 04/27/23 1:03 pm Transcribed By: LESLYE Transcribed Date/Time: 04/27/23 1:02 pm * Exam Date Time Procedure Performing Provider Status 04/22/23 3:36 PM Chest Portable Travis Smith; Auth (V erified) Notes: (Chest Portable) Reason For Exam: Orthopnea, hypoxia, CHF;Shortness of Breath RESULT: Chest Portable Chest Portable Reason: Shortness of Breath; Orthopnea, hypoxia, CHF; Clinical Question(s): Pulmonary Edema COMPARISON: Multiple priors, most recent chest x-ray 04/03/2023, CTA TAVR chest 10/13/2022 FINDINGS: LINES AND TUBES: None. LUNGS AND PLEURA: Low lung volumes. Diffuse interstitial prominence consistent with mild pulmonary edema, significantly improved from the prior 04/03 exam. Small right pleural effusion, decreased in size from prior exam. No definite left pleural effusion. No pneumothorax. HEART, MEDIASTINUM AND ANA: Mild prominence of the cardiac silhouette, unchanged. Unchanged mediastinal and hilar contour. BONES AND SOFT TISSUES: No acute abnormality. IMPRESSION: Mild pulmonary edema, significantly improved from 04/03. Decreased small right pleural effusion. I have personally reviewed the images and I agree with this report. WSN: [id number] Ordering Physician: Jackie Paula Dictated By: Sarah Lora MD Dictated Date/Time: 04/22/23 4:31 pm Reviewed By: Michael Chavez MD, V Signed By: Michael Chavez MD, V Signed Date/Time: 04/22/23 4:36 pm Transcribed By: LESLYE Transcribed Date/Time: 04/22/23 4:30 pm Vital Signs Most recent to oldest [Reference Range]: 1 2 3 Height 145 cm (04/30/23 12:19 PM) 145 cm (04/30/23 8:11 AM) 145 cm (04/30/23 5:17 AM) Weight 74.2 kg (04/30/23 5:23 AM) 74.2 kg (04/30/23 5:17 AM) 87.1 kg (04/29/23 3:50 AM) Oxygen Saturation [94-100 %] 94 % (04/30/23 12:19 PM) 100 % (04/30/23 8:11 AM) 98 % (04/30/23 5:17 AM) Pulse Rate [55-90 bpm] 109 bpm *H* (04/30/23 12:19 PM) 56 bpm (04/30/23 8:11 AM) 63 bpm (04/30/23 5:17 AM) Body Mass Index [18.5-24.99 kg/m2] 35.29 kg/m2 *>HHI* (04/30/23 5:17 AM) 41.38 kg/m2 *>HHI* (04/27/23 4:00 AM) 41.43 kg/m2 *>HHI* (04/26/23 5:10 AM) Blood Pressure [90-138/55-84 mm Hg] 120/49mm Hg (04/30/23 12:19 PM) 147/50mm Hg *H* (04/30/23 9:24 AM) 147/50mm Hg *H* (04/30/23 9:24 AM) Respiratory Rate [16-30 br/min] 18 br/min (04/30/23 12:19 PM) 18 br/min (04/30/23 8:11 AM) 18 br/min (04/30/23 5:17 AM) Temperature [96.8-100.4 DegF] 98.2 DegF (04/30/23 12:19 PM) 98.1 DegF (04/30/23 8:11 AM) 98.2 DegF (04/30/23 5:17 AM) Liters per Minute 2 L/min (04/30/23 8:11 AM) 2 L/min (04/30/23 5:17 AM) 2 L/min (04/29/23 7:29 AM) Mode of Delivery (Oxygen) Room air (04/30/23 12:19 PM) Nasal cannula (04/30/23 8:11 AM) Nasal cannula (04/30/23 5:17 AM) Blood pressure sites Arm, right (04/30/23 12:19 PM) Arm, right (04/30/23 8:11 AM) Arm, right (04/30/23 5:17 AM) Temperature Route Oral (04/30/23 12:19 PM) Oral (04/30/23 8:11 AM) Oral (04/30/23 5:17 AM) Dry Weight 89 kg (04/17/23 3:56 PM) Weight Obtained Via Bed scale (04/30/23 5:23 AM) Bed scale (04/30/23 5:17 AM) Bed scale (04/29/23 3:50 AM) Social History Social History Type Response Smoking Status Never (less than 100 in lifetime) entered on: 12/21/18 Sex Note * Annalise Wong RN: PERFORM Event Display: Discharge/Transfer Note Hospital Authored Date: [id number] Nursing Discharge Note Entered On: 04/30/2023 16:03 EDT Performed On: 04/30/2023 16:03 EDT by Annalise Wong RN Nursing Discharge Note 2 Discharge Time : 04/30/2023 16:03 EDT Discharge Level of Care at Discharge : Homehealth/VNA Discharge VNA/Hospice/Home Care(v001) : [facility] [phone] Patient Left Unit Via : Wheelchair Patient Accompanied Off Unit with : Significant other DC Instructions Provided & Signed by Pt : Yes Patient Understands D/C Instructions : Yes Patient Instructions Discharge Signed : Yes Did Pt have Specialty Bed or Wound Vac : No Annalise Wong RN - 04/30/2023 16:03 EDT * Andres VORA, Carter: PERFORM Event Display: Discharge/Transfer Note Hospital Authored Date: [id number] Patient: ??MARTINEZ, KHLOE ? Age:??78 Years?Sex:??Female?:??1945?? Patient Information Discharge Location: Primary Care Physician: Turner Golden MD , Shelby Bear Admit Date/Time: 04/17/23 15:34 Discharge Disposition Discharge Disposition: Home with Home Health Discharge Diagnosis Aortic stenosis, severe (I35.0) ?? _ Discharge Medications Amlodipine (amLODIPine 10 mg oral tablet)?1?tab(s)?10?Milligram?By Mouth?Daily Aspirin (aspirin 81 mg oral delayed release tablet)?81?Milligram?1?tablet?By Mouth?Daily at bedtime Atorvastatin (atorvastatin 40 mg oral tablet)?1?tab(s)?40?Milligram?By Mouth?Daily at bedtime Brimonidine Ophthalmic (brimonidine 0.2% ophthalmic solution)?1?Drops?Eyes, Both?2 times a day Clopidogrel (clopidogrel 75 mg oral tablet)?75?Milligram?By Mouth?Daily?for 30?Days Cyanocobalamin (Vitamin B-12 1000 mcg oral tablet)?1,000?Microgram?1?tablet?By Mouth?Daily Dexamethasone / Tobramycin Ophthalmic (dexamethasone-tobramycin 0.1%-0.3% ophthalmic suspension)?PLACE 1 DROP IN EACH EYE FOUR TIMES DAILY empagliflozin (empagliflozin 10 mg oral tablet)?1?tab(s)?10?Milligram?By Mouth?Daily in AM empagliflozin (Jardiance 10 mg oral tablet)?1?tab(s)?10?Milligram?By Mouth?Daily in AM empagliflozin (Jardiance 10 mg oral tablet)?TAKE 1 TABLET BY MOUTH EVERY MORNING Ergocalciferol (Vitamin D 53109 iu oral capsule)?50,000?International Unit?1?capsule?By Mouth?Every week Esomeprazole (esomeprazole 40 mg oral enteric coated capsule)?1?capsule?40?Milligram?By Mouth?Daily Ferrous Sulfate (ferrous sulfate 325 mg oral enteric coated tablet)?325?Milligram?By Mouth?Every other day?Overton luigi capsula cada otro jessica. Ferrous Sulfate (ferrous sulfate 325 mg oral enteric coated tablet)?MONICA 1 TABLETA POR LA BOCA CADA OTRO JESSICA fluticasone/umeclidinium/vilanterol (Trelegy Ellipta 200 mcg-62.5 mcg-25 mcg/inh inhalation powder)?1?puff(s)?Inhalation?Daily?at the same time every day fluticasone/umeclidinium/vilanterol (Trelegy Ellipta inhalation powder)?1?puff(s)?Inhalation?Daily?at the same time every day [...] (latanoprost 0.005% ophthalmic solution)?1?Drops?Eyes, Both?Daily in PM Latanoprost Ophthalmic (latanoprost 0.005% ophthalmic solution)?INSTILL 1 DROP IN EACH EYE AT BEDTIME linagliptin (Tradjenta 5 mg oral tablet)?1?tab(s)?5?Milligram?By Mouth?Daily Montelukast (montelukast 10 mg oral tablet)?10?Milligram?1?tablet?By Mouth?Daily before dinner Montelukast (montelukast 10 mg oral tablet)?TAKE 1 TABLET BY MOUTH EVERY EVENING PredniSONE (predniSONE 20 mg oral tablet)?TAKE 2 TABLETS BY MOUTH DAILY ? Medications Started None Medications Discontinued Torsemide - stop until 05/03, check labs on 05/03 - cardiology office to follow on these labs and decide on torsemide Carvedilol Doses Changed None Allergies Allergies ?(Active and Proposed Allergies Only) Percocet 7.5/325? (Severity: Unknown severity, Onset: Unknown) ?Reactions: hallucinations Motrin? (Severity: Unknown severity, Onset: Unknown) ?Reactions: High BP ? 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 ?? Acute Exacerbation of??Congestive Heart Failure: Acute on chronic hypoxic respiratory failure: Severe Aortic Stenosis: Cardiology and CT Surgery??following Echo 04/22 with LVEF 55% no WMA, grade iii diastolic dysfunction. LA mod-severely dilated. Severe ASwith moderate AR. PASP 55-60 mmHg. RA dilated. s/p TAVR this admission - Given cr uriel diaz cardiology and plan is to hold torsemide through weekend, repeat labs on 05/03, cardiology to follow up and help pt obtain labs and decide on diuretic dose at that time - Cardiology and PCP follow up on discharge ?? Mobitz II AV block Noted to be bradycardic, per EP there is no high degree AV block and no need for acute intervention 30-day monitor being arranged by cardiology on discharge Cardiology follow up ?? CKD 3b Mild ARLEY Baseline cr 1.5-1.7 Cr 2.0 on discharge, discussed with cardiology, will hold diuretic throughg weekend and can discharge with OP follow up as above ?? Community Acquired Pneumonia: CXR and [facility] at [facility] ??indicate multifocal pna/airspace disease. -Completed 6 days of ctx ?? Diabetes: -Continue home medications on discharge ?? Esophageal dysphagia Sore throat Dry mouth - Was evaluated by speech therapy on 04/05 and recommended GI evaluation - Also complains of dry mouth, unclear if this is causing symptoms - Improved with??guaifenesin 3x/day - Simethicone AC for bloating - Consider outpatient GI w/up or possibly Sjogrens? ?? COPD/Asthma: -Substitute Breo Ellipta. -prn albuterol. -Continue Montelukast. -Prednisone 40 mg ended on 04/19. ?? Coronary Artery Disease: Multivessel CAD: -Continue ASA, carvedilol 25 mg BID, atorvastatin 80 mg daily. ?? Anemia: FeSO4 QOD Hypertension: Carvedilol, amlodipine and hydralazine. JOSE: CPAP if needed. Glaucoma:??home eye drops. ?? Vital Signs?? Temperature: 98.1 DegF (04/30/23 08:11:00) Temperature Route: Oral (04/30/23 08:11:00) Pulse Rate: 56 bpm (04/30/23 08:11:00) Respiratory Rate: 18 br/min (04/30/23 08:11:00) Systolic Blood Pressure:??147 mm Hg??High (04/30/23 09:24:00) Systolic Blood Pressure:??147 mm Hg??High (04/30/23 09:24:00) Diastolic Blood Pressure:??50 mm Hg??Low (04/30/23 09:24:00) Diastolic Blood Pressure:??50 mm Hg??Low (04/30/23 09:24:00) Blood pressure sites: Arm, right (04/30/23 08:11:00) Mean Arterial Pressure: 82 mm Hg (04/30/23 08:11:00) Pulse Pressure: 97 mm Hg (04/30/23 08:11:00) Oxygen Saturation: 100 % (04/30/23 08:11:00) Liters per Minute: 2 L/min (04/30/23 08:11:00) Mode of Delivery (Oxygen): Nasal cannula (04/30/23 08:11:00) Early Warning Score: 0 (04/30/23 09:29:21) ? Mobility & Ambulation Level Mobility & Ambulation Level Activity Assistance: One person assistance (04/29/23) Activity Status ADL: Up to chair, Up with assistance (04/29/23) Ambulation Patient Effort: Good (04/28/23) Ambulatory devices needed: Walker (04/29/23) Repositioning: Self (04/28/23) ?? Therapeutic Activity Therapeutic Activities/Mobility/Balance Comments on treatment indicated: 78 F ??is transferred from [facility] where she was admittedfor CHF exacerbation in the setting of severe aortic stenosis. PT to progress functional mobility. Rec home c services (04/20/23 15:45:00) Plan of care PT: Gait training, Transfer training, Therapeutic exercise, Functional Activities, Balance training (04/20/23 15:45:00) Problems PT: Impaired strength/ROM, Impaired functional mobility, Impaired balance, Impaired safety, Difficulty walking (04/20/23 15:45:00) Treatment Indicated-PT: Yes (04/20/23 15:45:00) Discharge recommendations: Home with services (04/20/23 15:45:00) Ambulation, ??PT Plan: Independent (04/26/23 15:54:00) Barriers to goal achievement: None (04/20/23 15:45:00) Bed mobility: PT Plan: Independent (04/26/23 15:54:00) Complete Rehab Discharge Index Now: No (04/20/23 15:45:00) Equipment PT: Walker (04/20/23 15:45:00) Facilitators to goal achievement: Motivated (04/20/23 15:45:00) termite renewal inspector PT goals: Independent functional mobility (04/20/23 15:45:00) Plan Discussed w/Pt,Family/Agreed Upon: Yes (04/20/23 15:45:00) Plan discussed with care team PT: RN, water resource project manager (04/20/23 15:45:00) PT Duration: 1 week (04/20/23 15:45:00) Rehab potential: Excellent (04/20/23 15:45:00) ?? . Physical Exam Gen:??Well nourished, A&O x4 ?Resp:??bibasilar crackles, some coarse breath sounds bilaterally ?? Mouth: No erythema noted ?CV:??Regular rhythm,??regular rate;??S1/S2 present;??systolic murmur??appreciated. No JVD ?GI: Soft, nontender, no??organomegaly palpated,??nondistended, + bowel sounds ?Skin: No lesions seen ?Psych: appropriate affect?? Consultants Cardiology Pending Results Add On Lab Order ordered on 04/23/2023 BUN ordered on 04/28/2023 CBC w/ Differential ordered on 04/28/2023 Creatinine ordered on 04/28/2023 Electrolytes ordered on 04/28/2023 Magnesium Level ordered on 04/28/2023 RBCs for Surgery ordered on 04/22/2023 Type and Screen ordered on 04/28/2023 Patient Education Titles Heart Failure: Warning Signs of a Flare-Up?? Heart Failure: Making Changes to Your Diet?? Taking Medicine to Control Heart Failure?? Discharge Instructions for Heart Failure?? Surgery Post TAVR Transfemoral Discharge Instructions?? Depression: Tips to Help Yourself?? Depression?? Follow-Up Appointments Added Follow Up ?Time Frame ?Comments [facility] Cardiac Rehab?1 month?[phone] Tera Sutherland?06/24/2023 10:00 ECHO?06/17/2023 14:00 Stefanier Koko?05/06/2023 15:00 Shelby Golden MD Patient Instructions Please follow up with cardiology and other appointments as listed Please hold your diuretic (torsemide) until wednesday. You will first need to get repeat labs checked on wednesday, and the cardiology team will follow up with you wednesday on labs to decide on when and whatdose of torsemide you should restart on. Please call the cardiology office first thing wednesday to get labs repeated so that a decision can be made on your torsemide. Please take all medications as prescribed Follow up with your PCP within 1 week of discharge to check repeat labs and ensure you are continuing to do well Post Discharge Care Discharge ?04/30/23 11:20:00 EDT Discharge Prescriptions ?ePrescribed, ??04/29/23 9:28:00 EDT Home Health Face to Face *Denotes mandatory pittman ?? *I certify that this patient is under my care and that I or an allowed non- physician working with me had a face to face encounter with the patient on this date:??04/30/2023 11:25 ?? *The encounter with the patient was in whole, or in part, for the following medical condition, which is the primary diagnosis(es) for home health care:??Aortic stenosis, severe (I35.0) ? *Select the indications for the discipline/s that are being arranged for this patient. Nursing (select all that apply): [_] None [x] Medication management (reconciliation, teaching)?? [x] Chronic disease management?? [_] Wound care and treatment?? [_] Home safety evaluation [_] Administer SQ/IM/IV medications?? [_] Cath care?? [_] Drain care?? [_] Trach or GT care?? Other _ Occupation Therapy (select all that apply): [_] None [_] ADL Management [_] Fall prevention training [_] Energy conservation [_] Cognitive training Other _ Physical Therapy (select all that apply): [_] None [x] Functional mobility training [x] Home exercise program to strengthen [x] Increase ROM?? [_] Falls prevention training [_] [...] Inability to ambulate without assistance [_] Pain [x] Decreased strength and endurance [_] Unsteady gait [_] Severe SOB and fatigue [_] Impaired transfers [_] Inability to negotiate stairs [_] Limited weight bearing [_] Mental status change? *Physician Signature:??Carter Campos,? *By signing this, I certify that I have personally evaluated the patient and agree with the findings and recommendations as documented above. ? F Results Discharge Labs BLOOD BANK Blood Type B Positive ()?? 04/26/2023 13:37 Antibody Screen Negative ()?? 04/26/2023 13:37 RBC Unit ID [id number] ()?? 04/26/2023 21:50 RBC Available RE ()?? 04/26/2023 21:50 ?? BLOOD COUNT & DIFF WBC 11.0 k/mm3 ()?? 04/30/2023 05:50 RBC 3.25 m/mm3 (Low)?? 04/30/2023 05:50 Hgb 7.7 Gm/dL (Low)?? 04/30/2023 05:50 Hct 25.1 % (Low)?? 04/30/2023 05:50 MCV 77.2 femtoliters (Low)?? 04/30/2023 05:50 MCH 23.7 pg (Low)?? 04/30/2023 05:50 MCHC 30.7 g/dL (Low)?? 04/30/2023 05:50 Platelet Count 301 k/mm3 ()?? 04/30/2023 05:50 RDW-SD 52.7 femtoliters (High)?? 04/30/2023 05:50 MPV 10.0 femtoliters ()?? 04/30/2023 05:50 Nucleated RBC (Automated) 0.0 #/100 WBC'S ()?? 04/30/2023 05:50 Abs. NRBC 0.0 k/mm3 ()?? 04/30/2023 05:50 Abs. Neut 7.4 k/mm3 (High)?? 04/30/2023 05:50 Abs. Lymph 1.7 k/mm3 ()?? 04/30/2023 05:50 Abs. [place] 0.9 k/mm3 ()?? 04/30/2023 05:50 Abs. Eo 0.8 k/mm3 (High)?? 04/30/2023 05:50 Abs. Baso 0.1 k/mm3 ()?? 04/30/2023 05:50 Neut % 67.6 % ()?? 04/30/2023 05:50 Lymph % 15.7 % ()?? 04/30/2023 05:50 [place] % 8.3 % ()?? 04/30/2023 05:50 Eos % 7.5 % (High)?? 04/30/2023 05:50 Baso % 0.5 % ()?? 04/30/2023 05:50 Imm Gran 0.4 % ()?? 04/30/2023 05:50 Abs. Imm Gran 0.0 k/mm3 ()?? 04/30/2023 05:50 ?? CARDIAC Nt-Probnp 7301 pg/mL (High)?? 04/18/2023 02:37 High Sensitivity Troponin (HSTnT) 50 ng/L (High)?? 04/18/2023 02:37 ?? CHEM GENERAL Sodium 139 mmol/L ()?? 04/30/2023 05:50 Potassium 3.9 mmol/L ()?? 04/30/2023 05:50 Chloride 97 mmol/L (Low)?? 04/30/2023 05:50 Bicarbonate Level 31 mmol/L (High)?? 04/30/2023 05:50 Anion Gap 11 ()?? 04/30/2023 05:50 Glucose Level 148 mg/dL (High)?? 04/28/2023 02:29 Glucose, POC 187 mg/dL (High)?? 04/30/2023 08:07 Hemoglobin A1C (Monitoring) 6.3 % (High)?? 04/23/2023 01:17 BUN 42 mg/dL (High)?? 04/30/2023 05:50 Creatinine-Blood 2.0 mg/dL (High)?? 04/30/2023 05:50 Estimated GFR Creatinine 25 ML/MIN/1.73 M2 ()?? 04/30/2023 05:50 Calcium 8.9 mg/dL ()?? 04/28/2023 02:29 Magnesium 2.2 mg/dL ()?? 04/30/2023 05:50 ? COAG INR 1.0 ()?? 04/27/2023 02:18 Protime (PT) 10.5 seconds ()?? 04/27/2023 02:18 POC ACT-LR 234.0 seconds ()?? 04/27/2023 09:12 ? MISC. CHEMISTRY Hold Gel Top SPECIMEN DISCARDED AFTER 1 WEEK ()?? 04/26/2023 14:14 ? URINE OTHER Est Creatinine Clearance 14.20 mL/min ()?? 04/30/2023 06:39 ? VIROLOGY COVID-19 PCR Specimen Source NASAL ()?? 04/26/2023 11:00 COVID-19 PCR Result NEGATIVE ()?? 04/26/2023 11:00 ? Blood Glucose Trend Glucose, POC:??187 mg/dL??High (04/30/23 08:07:00) Glucose, POC:??177 mg/dL??High (04/29/23 21:41:00) Glucose, POC:??210 mg/dL??High (04/29/23 16:31:00) Glucose, POC:??371 mg/dL??High (04/29/23 12:07:00) ? Microbiology ?? COVID-19 (2019 Novel Coronavirus) PCR?? Completed?? Source: Nasal Body Site: Nose Collected Dt/Tm: 04/26/2023 11:16 Last Updated Dt/Tm: 04/27/2023 01:36 ? 40??minutes spent on discharge * Lilia CORTEZ, Desiree: MODIFY, PERFORM Event Display: Patient Education/Instruction Authored Date: [id number] Inpatient Adult Discharge Instructions [address] [address] Name: KHLOE MARTINEZ : 1945 Visit: 04/17/2023 15:34:00 Current Date: 04/30/2023 12:37 Account: [id number] Inpatient Adult Discharge Instructions We would like [...] and their families. Surveys are administered by [employer]. ?? If further treatment with your primary care physician or another doctor is recommended, it is important for you to keep the appointment. Call your primary care physician or return to the Emergency Department immediately if your condition worsens, fails to improve, or new symptoms develop. If you need to find a doctor, you can call [facility] for a referral at [phone] or toll free at [phone] or log in to [email or web address] ?? You can view and manage your care through the patient portal or by using a health care [place] of your choosing. [employer] is a website that allows you to securely view your medical information including your hospital discharge summary, office visit summaries, medications and follow-up visits. You can also request appointments, renew medications, and request access to your medical information using a health care [place] of your choosing, or just ask a question. You can enroll at [email or web address] or register during your next office visit. You have been discharged from [facility], Patient Care Unit: M6. If you have any questions regarding these instructions after you leave, please call us and we will be happy to assist you. [facility] Your Care Team Attending Physician Andres VORA, Carter Consulting Providers Juan Pablo Cortes MD, MD, Jeromy Shen Discharging Providers Carter Campos MD Reason for Admission CHF Your Diagnosis Aortic stenosis, severe Tests Performed Below is a partial list of the tests performed during your hospitalization. You may have had other tests and procedures not included in this list. Please discuss all test results with your provider. Basic Metabolic Panel BNP BUN Calcium Level CBC CBC w/ Differential COVID-19 (2019 Novel Coronavirus) PCR Creatinine Electrolytes Glucose Level GLUCOSE POC HEMOGLOBIN A1C Hgb + Hct HOLD GEL TUBE INR Magnesium Level POC Hemochron ACT-LR Troponin T, High Sensitivity XR Chest Portable Primary Care Provider Turner Golden MD , Shelby Bear Advance Directive Health Care Proxy on File Yes - Health Care Proxy Discharge Vitals Temperature: 98.2 DegF Height: 145 cm Pulse Rate:??109 bpm??High Weight: 74.2 kg Respiratory Rate: 18 br/min Body Mass Index:??35.29 kg/m2??Critical Systolic Blood Pressure: 120 mm Hg Body surface area: 1.73 Diastolic Blood Pressure:??49 mm Hg??Low ?? Oxygen Saturation: 94 % ?? Studies Pending All tests and labs ordered during this hospital stay have been completed unless listed below. Please discuss all pending results with your provider listed above in these instructions. ?? Add On Lab Order BUN CBC w/ Differential Creatinine Electrolytes Magnesium Level RBCs for Surgery Type and Screen What to do next Instructions From Your Doctor Please follow up with cardiology and other appointments as listed Please hold your diuretic (torsemide) until wednesday. You will first need to get repeat labs checked on wednesday, and the cardiology team will follow up with you wednesday on labs to decide on when and whatdose of torsemide you should restart on. Please call the cardiology office first thing wednesday to get labs repeated so that a decision can be made on your torsemide. Please take all medications as prescribed Follow up with your PCP within 1 week of discharge to check repeat labs and ensure you are continuing to do well Discharge Orders You Need to Schedule the Following Appointments Follow Up with??Tera Sutherland When:??06/24/2023 10:00 AM EDT Where: [address] [place] [facility] [place] [address]- Business (1) Follow Up with??LEORA When:??06/17/2023 02:00 PM EDT Where: [address] [place] [facility] [place] [address]- Follow Up with??Tera Sutherland When:??05/06/2023 03:00 PM EDT Where: [address] [place] [facility] [address] [facility] [place] [address]- Business (1) Follow Up with??[facility] When:??Within 1 month Why: [phone] Where: [address] [place] Follow Up with??Shelby Golden MD When:??In 0 days Where: [address] [place] [address]- Business (1) Discharge Medications KHLOE MARTINEZ :1945 Visit Date:04/17/2023 Medications: Please continue your medications until treatment is completed or stopped by your provider. Medications not listed below should be discontinued. Discuss any questions related to medications with your provider. What How Much When Instructions Next Dose New Clopidogrel (clopidogrel 75 mg oral tablet) 75 Milligram Oral Daily Duration: 30 Days Pickup at [facility] 3 Tomorrow 8am Changed Amlodipine (amLODIPine 10 mg oral tablet) 1 tab(s) Oral Daily Tomorrow 8am Changed Aspirin (aspirin 81 mg oral delayed release tablet) 1 tab(s) Oral Daily at Bedtime Tomorrow 8am Changed hydrALAZINE (hydrALAZINE 25 mg oral tablet) 1 tab(s) Oral Twice a day Tonight 8pm Unchanged Atorvastatin (atorvastatin 40 mg oral tablet) 1 tab(s) Oral Daily at Bedtime Tonight 8pm Unchanged Brimonidine Ophthalmic (brimonidine 0.2% ophthalmic solution) 1 Drops Both eyes Twice a day Tonight 8pm Unchanged Cyanocobalamin (Vitamin B-12 1000 mcg oral tablet) 1 tab(s) Oral Daily Tomorrow 8am Unchanged Dexamethasone / Tobramycin Ophthalmic (dexamethasone-tobramycin 0.1%- 0.3% ophthalmic suspension) PLACE 1 DROP IN EACH EYE FOUR TIMES DAILY ?? Resume home med Unchanged empagliflozin (Jardiance 10 mg oral tablet) 1 tab(s) Oral Daily in the morning Tomorrow 8am Unchanged Ergocalciferol (Vitamin D 76334 iu oral capsule) 50,000 International Unit Oral Every week Resume home medication as ordered Unchanged Esomeprazole (esomeprazole 40 mg oral enteric coated capsule) 1 capsule Oral Daily Tomorrow 8am Unchanged Ferrous Sulfate (ferrous sulfate 325 mg oral enteric coated tablet) MONICA 1 TABLETA POR LA BOCA CADA OTRO JESSICA ?? Wednesday 05/02 8am Unchanged fluticasone/ umeclidinium/ vilanterol (Trelegy Ellipta 200 mcg-62.5 mcg-25 mcg/ inh inhalation powder) 1 puff(s) Inhalation Daily at the same time every day ?? Tomorrow 8am Unchanged Folic Acid (folic acid 1 mg oral tablet) 1 tab(s) Oral Daily Tomorrow 8am Unchanged Gabapentin (gabapentin 300 mg oral capsule) 1 capsule Oral Daily at Bedtime Tonight 8pm Unchanged Insulin Aspart (NovoLOG FlexPen 100 units/ mL injectable solution) 3 unit(s) Subcutaneous Injection 3 times a day before meals INJECT 5-10 UNITS SUBCUTANEOUSLY THREE TIMES DAILY DIRECTED ?? Resume home medication Unchanged Insulin Glargine (Toujeo SoloStar 300 units/ mL subcutaneous solution) 34 unit(s) Subcutaneous Injection Daily in the morning Resume home medication Unchanged Latanoprost Ophthalmic (latanoprost 0.005% ophthalmic solution) INSTILL 1 DROP IN EACH EYE AT BEDTIME ?? Tonight 8pm Unchanged linagliptin (Tradjenta 5 mg oral tablet) 1 tab(s) Oral Daily Tomorrow 8am Unchanged Miscellaneous Rx (TRUPLUS LANC MIS 33G) Unchanged Miscellaneous Rx (ULTIGUARD MIS [id number]) Unchanged Montelukast (montelukast 10 mg oral tablet) TAKE 1 TABLET BY MOUTH EVERY EVENING ?? Tonight 5pm Unchanged PredniSONE (predniSONE 20 mg oral tablet) TAKE 2 TABLETS BY MOUTH DAILY ?? Resume home med Pharmacy Information [facility] 3: [address], [place] [id number] [phone] ?? What How Much When Comments Stop Taking Carvedilol (carvedilol 25 mg oral tablet) 1 tab(s) Oral Twice a day Stop taking Stop Taking Carvedilol (carvedilol 25 mg oral tablet) 1 tab(s) Oral Twice a day Stop taking Stop Taking torsemide (torsemide 20 mg oral tablet) 1 tab(s) Oral Daily Stop taking Stop Taking torsemide (torsemide 20 mg oral tablet) 1 tab(s) Oral Twice a day Duration: 30 Days Test Results Below is a partial list of the most recent Laboratory test results done prior to this discharge. You may have had other tests and procedures not included in this list. Please discuss all test resultswith your provider. Est Creatinine Clearance - 14.20 mL/min (04/30/2023) RBC Available - RE (04/26/2023) RBC Unit ID - [id number] (04/26/2023) Basic Metabolic Panel (04/28/2023) ???Sodium - 140 mmol/L???Potassium - 3.6 mmol/L???Chloride - 99 mmol/L???Bicarbonate Level - 30 mmol/L???Anion Gap - 11???Glucose Level - 148 mg/dL???BUN - 37 mg/dL???Creatinine-Blood - 1.5 mg/dL???Estimated GFR Creatinine - 36 ML/MIN/1.73 M2???Calcium - 8.9 mg/dL BNP (04/18/2023) ???Nt-Probnp - 7301 pg/mL BUN (04/30/2023) ???BUN - 42 mg/dL Calcium Level (04/21/2023) ???Calcium - 8.7 mg/dL CBC (04/27/2023) ???WBC - 13.0 k/mm3???RBC - 3.54 m/mm3???Hgb - 8.3 Gm/dL???Hct - 27.2 %???MCV - 76.8 femtoliters???MCH - 23.4 pg???MCHC - 30.5 g/dL???Platelet Count - 351 k/mm3???RDW-SD - 54.4 femtoliters???MPV - 10.3 femtoliters???Nucleated RBC (Automated) - 0.0 #/100 WBC'S???Abs. NRBC - 0.0 k/mm3 CBC w/ Differential (04/30/2023) ???WBC - 11.0 k/mm3???RBC - 3.25 m/mm3???Hgb - 7.7 Gm/dL???Hct - 25.1 %???MCV - 77.2 femtoliters???MCH - 23.7 pg???MCHC - 30.7 g/dL???Platelet Count - 301 k/mm3???RDW-SD - 52.7 femtoliters???MPV - 10.0 femtoliters???Nucleated RBC (Automated) - 0.0 #/100 WBC'S???Abs. NRBC - 0.0 k/mm3???Abs. Neut - 7.4 k/mm3???Abs. Lymph - 1.7 k/mm3???Abs. [place] - 0.9 k/mm3???Abs. Eo - 0.8 k/mm3???Abs. Baso - 0.1 k/mm3???Neut % - 67.6 %???Lymph % - 15.7 %???[place] % - 8.3 %???Eos % - 7.5 %???Baso % - 0.5 %???Imm Gran - 0.4 %???Abs. Imm Gran - 0.0 k/mm3 COVID-19 (2019 Novel Coronavirus) PCR (04/26/2023) ???COVID-19 PCR Specimen Source - NASAL???COVID-19 PCR Result - NEGATIVE Creatinine (04/30/2023) ???Creatinine-Blood - 2.0 mg/dL???Estimated GFR Creatinine - 25 ML/MIN/1.73 M2 Electrolytes (04/30/2023) ???Sodium - 139 mmol/L???Potassium - 3.9 mmol/L???Chloride - 97 mmol/L???Bicarbonate Level - 31 mmol/L???Anion Gap - 11 Glucose Level (04/21/2023) ???Glucose Level - 48 mg/dL GLUCOSE POC (04/30/2023) ???Glucose, POC - 363 mg/dL HEMOGLOBIN A1C (04/23/2023) ???Hemoglobin A1C (Monitoring) - 6.3 % Hgb + Hct (04/27/2023) ???Hgb - 7.9 Gm/dL???Hct - 26.1 % HOLD GEL TUBE (04/26/2023) ???Hold Gel Top - SPECIMEN DISCARDED AFTER 1 WEEK INR (04/27/2023) ???INR - 1.0???Protime (PT) - 10.5 seconds Magnesium Level (04/30/2023) ???Magnesium - 2.2 mg/dL POC Hemochron ACT-LR (04/27/2023) ???POC ACT-LR - 234.0 seconds Troponin T, High Sensitivity (04/18/2023) ???High Sensitivity Troponin (HSTnT) - 50 ng/L Allergies (NKA means No Known Allergies) Motrin??(High BP) Percocet 7.5/325??(hallucinations) Problems Active Problems??(6) Asthma?? Cardiac catheterization?? Diabetes mellitus?? Hyperlipidemia?? Hypertension?? Severe obesity (BMI 35.0-39.9) with comorbidity?? Education Materials Below is the list of Educational Leaflet Providered with your Discharge Instructions. Heart Failure: Warning Signs of a Flare-Up?? Heart Failure: Making Changes to Your Diet?? Taking Medicine to Control Heart Failure?? Discharge Instructions for Heart Failure?? Surgery Post TAVR Transfemoral Discharge Instructions?? Depression: Tips to Help Yourself?? Depression?? Valuables and Belongings I fully understand and agree that [facility] accepts no responsibility for all my personal [...] Review of Valuable and Belonging List: With patient Date for Pt to Sign Valuables/Belongings: 04/30/23 12:01:00 ?? Other Discharge Information ? Pulmonary Rehab Status?? Pulmonary Rehab Discharge Status?? Respiratory Rate: 18 br/min ? Cardiac Rehab Assessment?? Cardiac Rehab Inpatient Assessment?? Comments-Education: post procedure guidelines Comments-Exercise Activity: phase 2 referral Comments-Nutrition: per RD Comments-Lipids: meds and diet Patient attending Phase II: Yes Phase II Site of Care: [address] [place] [address] [phone] Common Emergency Awareness Tips IS IT A [...] are strongly encouraged to quit. Please call [facility] Link at [phone] or [phone] ([phone]) or log in to [email or web address] for referrals to smoking cessation programs. ?? 519 Suicide & Crisis Lifeline is available 26/04 if you or someone you know needs to find a reason to keep living. By calling 851 you'll be connected to a skilled, trained counselor at a crisis center in your area. INPATIENT DISCHARGE INSTRUCTIONS SIGNATURE PAGE KHLOE MARTINEZ Location:[facility] Registration Date and Time:04/17/2023 15:34 EDT Primary Care Physician: Turner Golden MD , Shelby Bear, Attending Physician: Andres VORA, Carter, I MARTINEZ, IRIS, have received the above patient education materials/instructions and have verbalized understanding. If ambulance or transport services are being used I further acknowledge being given a choice of service. ?? If you need to contact me, please call me at this number: . Patient/Asian Studies Program Chair Name: Patient/Asian Studies Program Chair Signature: Relationship to Patient: Witness Name/Signature: Date: * Andres VORA, Carter: MODIFY, PERFORM Event Display: Discharge/Transfer Note Hospital Authored Date: [id number] Patient: ??MARTINEZ, IRIS ? Age:??78 Years?Sex:??Female?:??1945?? Patient Information Discharge Location: Primary Care Physician: Turner Golden MD , Shelby Bear Admit Date/Time: 04/17/23 15:34 Discharge Disposition Discharge Disposition: Home with Home Health Discharge Diagnosis Aortic stenosis, severe (I35.0) ?? _ Discharge Medications Amlodipine (amLODIPine 10 mg oral tablet)?1?tab(s)?10?Milligram?By Mouth?Daily Aspirin (aspirin 81 mg oral delayed release tablet)?81?Milligram?1?tablet?By Mouth?Daily at bedtime Atorvastatin (atorvastatin 40 mg oral tablet)?1?tab(s)?40?Milligram?By Mouth?Daily at bedtime Brimonidine Ophthalmic (brimonidine 0.2% ophthalmic solution)?1?Drops?Eyes, Both?2 times a day Clopidogrel (clopidogrel 75 mg oral tablet)?75?Milligram?By Mouth?Daily?for 30?Days Cyanocobalamin (Vitamin B-12 1000 mcg oral tablet)?1,000?Microgram?1?tablet?By Mouth?Daily Dexamethasone / Tobramycin Ophthalmic (dexamethasone-tobramycin 0.1%-0.3% ophthalmic suspension)?PLACE 1 DROP IN EACH EYE FOUR TIMES DAILY empagliflozin (empagliflozin 10 mg oral tablet)?1?tab(s)?10?Milligram?By Mouth?Daily in AM empagliflozin (Jardiance 10 mg oral tablet)?1?tab(s)?10?Milligram?By Mouth?Daily in AM empagliflozin (Jardiance 10 mg oral tablet)?TAKE 1 TABLET BY MOUTH EVERY MORNING Ergocalciferol (Vitamin D 92201 iu oral capsule)?50,000?International Unit?1?capsule?By Mouth?Every week Esomeprazole (esomeprazole 40 mg oral enteric coated capsule)?1?capsule?40?Milligram?By Mouth?Daily Ferrous Sulfate (ferrous sulfate 325 mg oral enteric coated tablet)?325?Milligram?By Mouth?Every other day?Overton luigi capsula cada otro jessica. Ferrous Sulfate (ferrous sulfate 325 mg oral enteric coated tablet)?MONICA 1 TABLETA POR LA BOCA CADA OTRO JESSICA fluticasone/umeclidinium/vilanterol (Trelegy Ellipta 200 mcg-62.5 mcg-25 mcg/inh inhalation powder)?1?puff(s)?Inhalation?Daily?at the same time every day fluticasone/umeclidinium/vilanterol (Trelegy Ellipta inhalation powder)?1?puff(s)?Inhalation?Daily?at the same time every day [...] (latanoprost 0.005% ophthalmic solution)?1?Drops?Eyes, Both?Daily in PM Latanoprost Ophthalmic (latanoprost 0.005% ophthalmic solution)?INSTILL 1 DROP IN EACH EYE AT BEDTIME linagliptin (Tradjenta 5 mg oral tablet)?1?tab(s)?5?Milligram?By Mouth?Daily Montelukast (montelukast 10 mg oral tablet)?10?Milligram?1?tablet?By Mouth?Daily before dinner Montelukast (montelukast 10 mg oral tablet)?TAKE 1 TABLET BY MOUTH EVERY EVENING PredniSONE (predniSONE 20 mg oral tablet)?TAKE 2 TABLETS BY MOUTH DAILY torsemide (torsemide 20 mg oral tablet)?2?tab(s)?40?Milligram?By Mouth?2 times a day ? Medications Started Clopidogrel ?? Doses Changed Carvedilol decreased to 12.5 mg BID Allergies Allergies ?(Active and Proposed Allergies Only) Percocet 7.5/325? (Severity: Unknown severity, Onset: Unknown) ?Reactions: hallucinations Motrin? (Severity: Unknown severity, Onset: Unknown) ?Reactions: High BP ? PCP Follow-Up/Heads-Up See below - s/p TAVR, needs hospital follow??up as diuretics also adjusted Hospital Course See below Objective Assessment and Plan KHLOE MARTINEZ is a 78 -year-old Guatemalan speaking female seen with the assistance of a medical unit secretary with history of severe aortic stenosis, coronary artery disease, PAD (bilateral SFA occlusion), carotid artery stenosis, HFpEF, CKD stage III, COPD, IDDM2, hypertension, , morbid obesity, and JOSE who is transferred from [facility] where she was admitted for CHF exacerbation in the setting of severe aortic stenosis. ?? Acute Exacerbation of??Congestive Heart Failure: Acute on chronic hypoxic respiratory failure: Severe Aortic Stenosis: Cardiology and CT Surgery??following Echo 04/22 with LVEF 55% no WMA, grade iii diastolic dysfunction. LA mod-severely dilated. Severe ASwith moderate AR. PASP 55-60 mmHg. RA dilated. s/p TAVR this admission - Continue po torsemide 40 mg BID to start on 04/29 at 2100 - Cardiology and PCP follow up on discharge ?? CKD 3b Baseline cr 1.5-1.7 Cr 1.9 on discharge ?? Community Acquired Pneumonia: CXR and [facility] ??indicate multifocal pna/airspace disease. -Completed 6 days of ctx ?? Diabetes: -Continue home medications on discharge ?? Esophageal dysphagia Sore throat Dry mouth - Was evaluated by speech therapy on 04/05 and recommended GI evaluation - Also complains of dry mouth, unclear if this is causing symptoms - Improved with??guaifenesin 3x/day - Simethicone AC for bloating - Consider outpatient GI w/up or possibly Sjogrens? ?? COPD/Asthma: -Substitute Breo Ellipta. -prn albuterol. -Continue Montelukast. -Prednisone 40 mg ended on 04/19. ?? Coronary Artery Disease: Multivessel CAD: -Continue ASA, carvedilol 25 mg BID, atorvastatin 80 mg daily. ?? Anemia: FeSO4 QOD Hypertension: Carvedilol, amlodipine and hydralazine. JOSE: CPAP if needed. Glaucoma:??home eye drops. ?? Vital Signs?? Temperature: 97.6 DegF (04/29/23 07:29:00) Temperature Route: Oral (04/29/23 07:29:00) Pulse Rate:??52 bpm??Low (04/29/23 07:29:00) Respiratory Rate: 18 br/min (04/29/23 07:29:00) Systolic Blood Pressure: 123 mm Hg (04/29/23 07:29:00) Diastolic Blood Pressure:??44 mm Hg??Low (04/29/23 07:29:00) Blood pressure sites: Arm, right (04/29/23 07:29:00) Mean Arterial Pressure: 70 mm Hg (04/29/23 07:29:00) Pulse Pressure: 79 mm Hg (04/29/23 07:29:00) Oxygen Saturation: 99 % (04/29/23 07:29:00) Liters per Minute: 2 L/min (04/29/23 07:29:00) Mode of Delivery (Oxygen): Nasal cannula (04/29/23 07:29:00) Early Warning Score: 2 (04/29/23 07:59:13) ? Mobility & Ambulation Level Mobility & Ambulation Level Activity Assistance: Moderate assistance, Weight bearing, One person assistance (04/28/23) Activity Status ADL: Ambulating in room, Bathroom privileges, Up with assistance (04/28/23) Ambulation Patient Effort: Good (04/28/23) Ambulatory devices needed: Walker (04/28/23) Repositioning: Self (04/28/23) ?? Therapeutic Activity Therapeutic Activities/Mobility/Balance Comments on treatment indicated: 78 F ??is transferred from [facility] where she was admittedfor CHF exacerbation in the setting of severe aortic stenosis. PT to progress functional mobility. Rec home c services (04/20/23 15:45:00) Plan of care PT: Gait training, Transfer training, Therapeutic exercise, Functional Activities, Balance training (04/20/23 15:45:00) Problems PT: Impaired strength/ROM, Impaired functional mobility, Impaired balance, Impaired safety, Difficulty walking (04/20/23 15:45:00) Treatment Indicated-PT: Yes (04/20/23 15:45:00) Discharge recommendations: Home with services (04/20/23 15:45:00) Ambulation, ??PT Plan: Independent (04/26/23 15:54:00) Barriers to goal achievement: None (04/20/23 15:45:00) Bed mobility: PT Plan: Independent (04/26/23 15:54:00) Complete Rehab Discharge Index Now: No (04/20/23 15:45:00) Equipment PT: Walker (04/20/23 15:45:00) Facilitators to goal achievement: Motivated (04/20/23 15:45:00) termite renewal inspector PT goals: Independent functional mobility (04/20/23 15:45:00) Plan Discussed w/Pt,Family/Agreed Upon: Yes (04/20/23 15:45:00) Plan discussed with care team PT: RN, water resource project manager (04/20/23 15:45:00) PT Duration: 1 week (04/20/23 15:45:00) Rehab potential: Excellent (04/20/23 15:45:00) ?? . Physical Exam Gen:??Well nourished, A&O x4 ?Resp:??bibasilar crackles, some coarse breath sounds bilaterally ?? Mouth: No erythema noted ?CV:??Regular rhythm,??regular rate;??S1/S2 present;??systolic murmur??appreciated. No JVD ?GI: Soft, nontender, no??organomegaly palpated,??nondistended, + bowel sounds ?Skin: No lesions seen ?Psych: appropriate affect?? Consultants Cardiology Pending Results Add On Lab Order ordered on 04/23/2023 BUN ordered on 04/28/2023 CBC w/ Differential ordered on 04/28/2023 Creatinine ordered on 04/28/2023 Electrolytes ordered on 04/28/2023 Magnesium Level ordered on 04/28/2023 RBCs for Surgery ordered on 04/22/2023 Type and Screen ordered on 04/28/2023 Patient Education Titles Depression: Tips to Help Yourself?? Depression?? Follow-Up Appointments Added Follow Up ?Time Frame ?Comments [facility] Card[facility]?1 month?[id number] Tera Sutherland?06/24/2023 10:00 ECHO?06/17/2023 14:00 Tera Sutherland?05/06/2023 15:00 Shelby Golden MD Patient Instructions Please follow up with cardiology and other appointments as listed Please take all medications as prescribed Follow up with your PCP within 1 week of discharge to check repeat labs and ensure you are continuing to do well Post Discharge Care Discharge ?Discharge after seen by Attending MD, ??04/29/23 9:28:00 EDT Discharge Prescriptions ?ePrescribed, ??04/29/23 9:28:00 EDT Home Health Face to Face *Denotes mandatory pittman ?? *I certify that this patient is under my care and that I or an allowed non- physician working with me had a face to face encounter with the patient on this date:??04/29/2023 09:32 ?? *The encounter with the patient was in whole, or in part, for the following medical condition, which is the primary diagnosis(es) for home health care:??Aortic stenosis, severe (I35.0) ? *Select the indications for the discipline/s that are being arranged for this patient. Nursing (select all that apply): [_] None [x] Medication management (reconciliation, teaching)?? [x] Chronic disease management?? [_] Wound care and treatment?? [_] Home safety evaluation [_] Administer SQ/IM/IV medications?? [_] Cath care?? [_] Drain care?? [_] Trach or GT care?? Other _ Occupation Therapy (select all that apply): [_] None [_] ADL Management [_] Fall prevention training [_] Energy conservation [_] Cognitive training Other _ Physical Therapy (select all that apply): [_] None [x] Functional mobility training [x] Home exercise program to strengthen [x] Increase ROM?? [x] Falls prevention training [_] Home maintenance program [...] Inability to ambulate without assistance [_] Pain [x] Decreased strength and endurance [_] Unsteady gait [_] Severe SOB and fatigue [_] Impaired transfers [_] Inability to negotiate stairs [_] Limited weight bearing [_] Mental status change? *Physician Signature:??Carter Campos MD ?? *By signing this, I certify that I have personally evaluated the patient and agree with the findings and recommendations as documented above. ? F Results Discharge Labs BLOOD BANK Blood Type B Positive ()?? 04/26/2023 13:37 Antibody Screen Negative ()?? 04/26/2023 13:37 RBC Unit ID [id number] ()?? 04/26/2023 21:50 RBC Available RE ()?? 04/26/2023 21:50 ?? BLOOD COUNT & DIFF WBC 10.4 k/mm3 ()?? 04/29/2023 05:01 RBC 3.10 m/mm3 (Low)?? 04/29/2023 05:01 Hgb 7.2 Gm/dL (Low)?? 04/29/2023 05:01 Hct 23.8 % (Low)?? 04/29/2023 05:01 MCV 76.8 femtoliters (Low)?? 04/29/2023 05:01 MCH 23.2 pg (Low)?? 04/29/2023 05:01 MCHC 30.3 g/dL (Low)?? 04/29/2023 05:01 Platelet Count 272 k/mm3 ()?? 04/29/2023 05:01 RDW-SD 53.9 femtoliters (High)?? 04/29/2023 05:01 MPV 10.1 femtoliters ()?? 04/29/2023 05:01 Nucleated RBC (Automated) 0.0 #/100 WBC'S ()?? 04/29/2023 05:01 Abs. NRBC 0.0 k/mm3 ()?? 04/29/2023 05:01 Abs. Neut 6.6 k/mm3 ()?? 04/29/2023 05:01 Abs. Lymph 1.9 k/mm3 ()?? 04/29/2023 05:01 Abs. [place] 1.1 k/mm3 (High)?? 04/29/2023 05:01 Abs. Eo 0.7 k/mm3 (High)?? 04/29/2023 05:01 Abs. Baso 0.1 k/mm3 ()?? 04/29/2023 05:01 Neut % 63.7 % ()?? 04/29/2023 05:01 Lymph % 18.6 % ()?? 04/29/2023 05:01 [place] % 10.5 % ()?? 04/29/2023 05:01 Eos % 6.3 % (High)?? 04/29/2023 05:01 Baso % 0.5 % ()?? 04/29/2023 05:01 Imm Gran 0.4 % ()?? 04/29/2023 05:01 Abs. Imm Gran 0.0 k/mm3 ()?? 04/29/2023 05:01 ?? CARDIAC Nt-Probnp 7301 pg/mL (High)?? 04/18/2023 02:37 High Sensitivity Troponin (HSTnT) 50 ng/L (High)?? 04/18/2023 02:37 ?? CHEM GENERAL Sodium 137 mmol/L ()?? 04/29/2023 05:01 Potassium 3.9 mmol/L ()?? 04/29/2023 05:01 Chloride 97 mmol/L (Low)?? 04/29/2023 05:01 Bicarbonate Level 30 mmol/L (High)?? 04/29/2023 05:01 Anion Gap 10 ()?? 04/29/2023 05:01 Glucose Level 148 mg/dL (High)?? 04/28/2023 02:29 Glucose, POC 131 mg/dL (High)?? 04/29/2023 07:31 Hemoglobin A1C (Monitoring) 6.3 % (High)?? 04/23/2023 01:17 BUN 40 mg/dL (High)?? 04/29/2023 05:01 Creatinine-Blood 1.9 mg/dL (High)?? 04/29/2023 05:01 Estimated GFR Creatinine 27 ML/MIN/1.73 M2 ()?? 04/29/2023 05:01 Calcium 8.9 mg/dL ()?? 04/28/2023 02:29 Magnesium 2.2 mg/dL ()?? 04/29/2023 05:01 ? COAG INR 1.0 ()?? 04/27/2023 02:18 Protime (PT) 10.5 seconds ()?? 04/27/2023 02:18 POC ACT-LR 234.0 seconds ()?? 04/27/2023 09:12 ? MISC. CHEMISTRY Hold Gel Top SPECIMEN DISCARDED AFTER 1 WEEK ()?? 04/26/2023 14:14 ? URINE OTHER Est Creatinine Clearance 14.95 mL/min ()?? 04/29/2023 06:51 ? VIROLOGY COVID-19 PCR Specimen Source NASAL ()?? 04/26/2023 11:00 COVID-19 PCR Result NEGATIVE ()?? 04/26/2023 11:00 ? Blood Glucose Trend Glucose, POC:??131 mg/dL??High (04/29/23 07:31:00) Glucose, POC:??269 mg/dL??High (04/28/23 21:28:00) Glucose, POC:??233 mg/dL??High (04/28/23 17:17:00) Glucose, POC:??298 mg/dL??High (04/28/23 11:31:00) ? Microbiology ?? COVID-19 (2019 Novel Coronavirus) PCR?? Completed?? Source: Nasal Body Site: Nose Collected Dt/Tm: 04/26/2023 11:16 Last Updated Dt/Tm: 04/27/2023 01:36 ? 40??minutes spent on discharge * Carter Campos MD: PERFORM Event Display: Discharge/Transfer Note Hospital Authored Date: Reviewed??overnight telemetry strips??with patient was noted to be bradycardic.?? She several drop??beats, concern for high degree heart block versus Mobitz 2 or complete heart block. EP consultation has been requested. ??EP to evaluate patient. We will hold off on discharge for today, reassess BMP in a.m. and plan for discharge tomorrow??if feasible. * Carter Campos MD: PERFORM Event Display: Discharge/Transfer Note Hospital Authored Date: The note below will serve as progress note for 04/29/2023 * Desiree Rodrigues RN: PERFORM Event Display: Patient Education Leaflets Authored Date: [id number] Heart Failure: Warning Signs of a Flare-Up ?? 28545 Insuficiencia card??jaun: se??ales de luigi reca??da Usted tiene luigi insuficiencia card??jaun. Luigi vez que hair tenido insuficiencia card??jaun, las reca??cantu son posibles. A continuaci??n encontrar?? las se??ales que pueden indicarle que la insuficiencia card??jaun est?? empeorando. Si detecta algunas de estas se??ales, llame a dubon proveedor de atenci??n m??dica. Hinchaz??n ??? Se le hinchan los pies, los tobillos o la parte inferior de las piernas. ??? Nota cambios de lapiel en la parte inferior de la pierna. ??? Los zapatos le quedan muy apretados. ??? La ropa le queda demasiado apretada en la cintura. ??? Tiene dificultad para ponerse o quitarse un anillo. ?? Falta de aire ??? Se ve obligado a respirar m??s lucero incluso cuando hace actividad normal o cuando est?? descansando. ??? Le falta el aire cuando sube las escaleras o incluso en distancias cortas.??? Se despierta por la noche con dificultad para respirar o tosiendo. ??? Necesita poner m??s almohadas o sentarse para dormir. ??? Se levanta cansado o inquieto. ?? Otros signos de advertencia ??? Se siente m??s d??juliana, mareado o cansado. ??? Siente dolor en el pecho o tiene cambios bruscos en el ritmo card??aco. ??? Tiene luigi tos que no desaparece. ??? Tiene dificultades para recordar cosas o p??rdida de apetito. ??? Tiene dificultades para dormir. ?? El control del peso El aumento de peso suele ser el primer signo de advertencia de que la insuficiencia card??jaun est??empeorando. Incluso aumentar unos pocos kilogramos puede ser signo de que dubon cuerpo est?? reteniendo un exceso de agua y rell.??Pesarse todos los d??as por la ma??shelby despu??s de orinar y antes de desa yunar es la mejor manera de saber si est?? reteniendo agua. Consiga luigi balanza que sea f??cil de leer. Aseg??rese de usar la misma ropa y la misma balanza todas las veces que se pese. El proveedor de atenci??n m??dica le mostrar?? c??mo hacer un seguimiento de dubon peso. Llame al proveedor si sube estas cantidades: ??? M??s de 900??gramos (2??libras) en 1??d??a ??? M??s de 2,3??kilogramos (5??libras) en 1??semana??? O el aumento de peso que dubon proveedor le haya pedido que informe Bear debe evaluarse y tratarse antes de que afecte la respiraci??n. Dubon proveedor le dir?? qu?? hacer a continuaci??n.? Last Reviewed Date: 2021 ?? [id number] [employer]. Todos los derechos reservados. Esta informaci??n no pretende sustituir la atenci??n m??dica profesional. S??lo dubon m??dico puede diagnosticar y tratar un problema de daniela. ?? * Desiree Rodrigues RN: PERFORM Event Display: Patient Education Leaflets Authored Date: [id number] Heart Failure: Making Changes to Your Diet ?? 71035 Insuficiencia card??jaun: cambios en la dieta Tiene luigi afecci??n llamada insuficiencia card??jaun. Si usted tiene insuficiencia card??jaun, es m??s probable que se??acumule l??quido en??dubon cuerpo debido a que el coraz??n no est?? funcionando ludwin. Esta acumulaci??n hace que dubon coraz??n tenga que trabajar m??s dewayne para bombear la naila. Adem??s provoca s??ntomas olga la falta de aliento y el edema (hinchaz??n). Bear frecuentemente se denomina insuficiencia card??jaun congestiva o ICC. Controlar la cantidad de rell (sodio) que usted come puede ayudar a prevenir la acumulaci??n de l??quido. Adem??s, dubon m??dico podr??a indicarle que disminuyala cantidad de l??quidos que sheryl. Lectura de las etiquetas de los alimentos Dubon proveedor de atenci??n m??dica le dir?? cu??nto sodio puede consumir por d??a. Sumaya las etiquetasde los alimentos para llevar un registro. Tenga en mente que determinados alimentos tienen alto contenido de rell. Estos incluyen alimentos enlatados, congelados y procesados. Revise la cantidad de rell presente en cada porci??n. Controle los ingredientes con alto contenido de sodio. Estos incluyen el MSG (glutamato monos??dico), el polvo de hornear y el fosfato de sodio.? Coma menos rell Dese el tiempo suficiente para acostumbrarse a comer menos rell. Puede llevarle algo de tiempo. He aqu?? algunos consejos que pueden ayudarle: ??? Quite el salero de la dacosta. Sustit??yalo por mezclas de hierbas y especias sin rell. ??? Coma verduras frescas, o congeladas sin condimentos. Estas contienen melvin menos rell que las verduras enlatadas. ??? Coma refrigerios con poco sodio olga las versiones sin rell de pretzels, galletas o palomitas de ma??z cocidas con aire caliente. ??? No agregue rell a los alimentos que cocina. En cambio, saz??nelos con rylee, dawkins??n, ajo o cebolla. ??? Cuando salga a comer, solicite que le preparen shantal platos sin agregarles rell. ??? No coma alimentos fritos yaque estos generalmente tienen gran cantidad de rell. ??? Consulte con dubon proveedor de atenci??n m??dica antes de usar estos sustitutos de la rell. Estos suelen contener potasio y pueden no ser beneficiosos para dubon daniela. Bear depender?? de qu?? moser ludwin funcionen shantal ri??ones y de los medicamentos que est?? usando. Algunas personas necesitan potasio adicional, mientras que otras no. ?? Si le dicen que limite dubon consumo de l??quido En algunos casos, quiz??s sea necesario que limite dubon consumo de l??quido para prevenir la hinchaz??n. Se considera ???l??quido?? a todo alimento que no es s??lido a temperatura ambiente, lo cual incluye los helados y las sopas. Si dubon proveedor de atenci??n m??dica le indica que limite los l??quidos, pruebe a seguir estos consejos: ??? Mida los l??quidos en luigi taza de medir antes de tomarlos. Bear lo ayudar?? a cumplir con shantal objetivos diarios. ??? Enfr??e ludwin las bebidas para hacerlas m??srefrescantes. ??? Chupe rodajas de dawkins??n congelado para calmar la sed. ??? Saritha s??lo cuando tengased. ??? Mastique chicle sin az??car o chupe caramelos duros sin az??car para mantener h??sommer la boca. ??? P??sese diariamente para saber si el contenido de l??quido en el cuerpo est?? aumentando. ?? Mi objetivo de sodio Dubon proveedor de atenci??n m??dica podr??a darle un objetivo de sodio que debe cumplir todos los d??as. Nancy incluye el sodio que se encuentra en los alimentos as?? olga tambi??n la rell agregada. Mi objetivo es comer no m??s de mg de sodio por d??a. ?? Cu??ndo llamar a dubon proveedor de atenci??n m??dica Llame a dubon proveedor inmediatamente si tiene alguna se??al de que dubon insuficiencia card??jaun est?? empeorando. Por ejemplo: ??? Aumento repentino de peso ??? Mayor hinchaz??n en las piernas o los tobillos ??? Dificultad leve para respirar cuando est?? en reposo o por la noche durmiendo ??? Aumento en la cantidad de almohadas que tiene para dormir o necesidad de dormir erguido en luigi silla ??? Tosseca y ??spera ??? Falta de energ??a o sensaci??n de mayor cansancio ?? Cu??ndo llamar al 911 Llame al 911??si ocurre algo de lo siguiente: ??? Dolor en el pecho ??? Presi??n, molestias, o dolor en la ez??bula, el juan o la espalda ???Dificultad grave para respirar, ya sea en reposo o ming alguna actividad ??? Pulso acelerado o latido intenso del coraz??n que no es normal ??? Desmayos o mareos intensos ??? Confusi??n o incapacidad para pensar con claridad ?? Last Reviewed Date: 2021 ?? [id number] [employer]. Todos los derechos reservados. Esta informaci??n no pretende sustituir la atenci??n m??dica profesional. S??lo dubon m??dico puede diagnosticar y tratar un problema de daniela. ?? * Desiree Rodrigues RN: PERFORM Event Display: Patient Education Leaflets Authored Date: [id number] Taking Medicine to Control Heart Failure ?? 43353 Medicamentos para controlar la insuficiencia card??jaun El coraz??n es un m??sculo que bombea naila oxigenada a todas las partes del cuerpo. La insuficiencia card??jaun hace que el coraz??n no pueda bombear la naila olga deber??a. Si la naila y los l??quidos se acumulan en los pulmones, se produce luigi insuficiencia card??jaun congestiva. Keasbey resultadode esto, algunas partes del cuerpo no reciben la cantidad suficiente de naila oxigenada para funcionar con normalidad. Estos problemas provocan los s??ntomas de la insuficiencia card??jaun. Dubon proveedor de atenci??n m??dica puede usar el t??rmino ???fracci??n de eyecci??n?? olga luigi forma de describir el tipo de insuficiencia card??jaun que tiene, o olga medici??n de cu??n ludwin bombea naila el coraz??n. La fracci??n de eyecci??n es el porcentaje de naila que se bombea hacia afuera del ventr??culo sami del coraz??n en comparaci??n con la cantidad de naila que le ventr??culo puede mantener. El valor normal es del??50??%??al??70??%. Los medicamentos pueden ayudar al coraz??n a funcionar mejor. Siga las instrucciones de dubon proveedor de atenci??n m??dica para asegurarse de que los medicamentos funcionen de la manera prevista. Clarissa surtir todos shantal medicamentos recetados. Si tiene alguna pregunta, hable con un farmac??utico. ??Por qu?? debe monica shantal medicamentos? Lo ayudan a sentirse mejor. Bear significa que podr?? hacer m??s cosas que disfruta. ??? Ayudan al coraz??n a funcionar mejor. ??? Pueden ayudarlo a no tener que ir al hospital. ??? Pueden evitar la falta de aliento y la inflamaci??n de los pies. ??? Pueden mejorar el flujo sangu??jaymie al kimmy del cuerpo y evitar que otros ??rganos se vean afectados. ??? Incluso pueden prevenir un ataque al coraz??n o la muerte. ?? Conozca los medicamentos Es posible que tome maxim o m??s de los siguientes medicamentos. Dubon proveedor de atenci??n m??dica loayudar?? a encontrar la combinaci??n de medicamentos m??s adecuada para usted. Aseg??rese de saber qu?? medicamentos keo: ??? Inhibidores de la enzima convertidora de angiotensina (ECA). Bajan la presi??n arterial actuando en los ri??ones y reduciendo el esfuerzo que realiza el coraz??n. Bear haceque al coraz??n le resulte m??s f??cil bombear. Estos medicamentos tambi??n ayudan a remodelar el coraz??n, lo que puede ayudarlo a que bombee mejor. ??? Antagonistas de los receptores de la angiotensina (LESLIE). Funcionan olga los inhibidores de la ECA. Se recetan a algunas personas que no pueden monica los inhibidores de la ECA. Algunas personas que gage inhibidores de la ECA tienen tos persistente y otras reacciones adversas, y puede que deban cambiar de medicamento. ??? Inhibidor del receptorde angiotensina neprilisina (ARNI, por shantal siglas en ingl??s). Nancy medicamento combina un LESLIE y uninhibidor de la neprilisina. Nancy medicamento ayuda a relajar los vasos sangu??neos y a reducir el esfuerzo del coraz??n. Tambi??n ayuda a que el cuerpo elimine el exceso de sodio y de l??quidos. ???Bloqueador del canal I-f del n??dulo sinusal.. Se usa para reducir la frecuencia card??jaun, lo que sergey el esfuerzo del coraz??n. ??? Bloqueadores beta. Estos medicamentos ayudan a reducir la presi??n arterial y disminuyen la frecuencia card??jaun. Bear sergey el esfuerzo del coraz??n. Con el tiempo, los bloqueadores beta pueden mejorar la fuerza y acci??n de bombeo del coraz??n. Si tiene luigi enfermedad pulmonar grave, es posible que no pueda monica estos medicamentos. ??? Diur??ticos (pastillas contra la retenci??n de l??quido). Ayudan al cuerpo a eliminar el agua adicional mediante la elimin aci??n de la rell. Bear ayuda a evitar la inflamaci??n, en especial en los tobillos. Tambi??n puedenayudarlo a que respire mejor si tiene l??quido en los pulmones. Al tener menos l??quido que bombear, el coraz??n no debe trabajar tanto. Un efecto secundario de nancy medicamento es que tiene que orinar con m??s frecuencia. Algunos diur??ticos hacen que el organismo pierda un mineral llamado potasio. El proveedor de atenci??n m??dica le dir?? si debe monica alg??n suplemento o comer alimentos con alto contenido de potasio. Otros diur??ticos hacen que retenga demasiado potasio. Bear puede provocarque el coraz??n tenga arritmias. Es importante que entienda qu?? medicamentos est?? tomando y c??mo afectan los niveles de potasio. ??? Digoxina. Ayuda al coraz??n a bombear con m??s fuerza. Bear le permite al coraz??n bombear m??s naila en cada latido. De nancy modo, m??s naila oxigenada de viajar al kimmy del cuerpo. Nancy medicamento puede usarse cuando otros no alivian los s??ntomas lo suficiente. ??? Bloqueadores de aldosterona. Ayudan a cambiar los niveles hormonales, ayudan al cuerpo a eliminar el sodio y el agua mediante los ri??ones, y alivian el esfuerzo del coraz??n. ??? Hidralazina y nitratos. Estos medicamentos se usan juntos para tratar la insuficiencia card??jaun. Pueden administrarse en luigi pastilla combinada. Reducen la presi??n arterial y el esfuerzo que realiza el coraz??n para bombear. ??? Estatinas. Estos medicamentos disminuyen la cantidad de colesterol freddy en la naila. Bear mejora la daniela de los vasos sangu??neos. Si ludwin no se usan para tratar la insuficiencia card??jaun, el proveedor puede recetarle luigi estatina si tiene colesterol alto. Tambi??n puede recet??rsela si hair tenido un ataque al coraz??n y tiene riesgo de sufrir luigi insuficiencia card??jaun. ??? Inhibidores del cotransportador de sodio y glucosa tipo??2 (SGLT2, por shantal siglas en ingl??s). Se usan para tratar la insuficiencia card??jaun en personas que tienen luigi fracci??n de eyecci??n reducida. Estos medicamentos alivian el esfuerzo del coraz??n evitando que los ri??ones reabsorban el az??car de la naila. Bear permite que el organismo elimine el exceso de sodio y agua. Por lo tanto, disminuye la presi??n arterial. En un principio, estos medicamentos se elaboraron para controlar la diabetes. Si tiene insuficiencia card??jaun, el proveedor puede recetarle un inhibidor del SGLT2 en casode que otros medicamentos no est??n funcionando. ?? Consejos para monica los medicamentos ??? Overton los medicamentos exactamente olga se le haya indicado. Siga las instrucciones en la etiqueta. ??? H??larry a la misma hora todos los d??as. ??? Si se olvida de monica luigi dosis, t??demetrio moser pronto olga se d?? cuenta, a menos que ya sea lizette la hora de monica la dosis siguiente. Si es as??, omita la dosis que perdi??. No tome luigi dosis doble. ??? Nunca cambie la dosis ni deje de monica los medicamentos, a menos que dubon proveedor de atenci??n m??dica le indique que lo clarissa.??Consulte a dubon proveedor si no entiende c??mo monica los medicamentos. Adem??s, d??gale si tiene dificultades para conseguirlos. ??? Si omite demasiadas dosis, estar?? en riesgo de que deban ingresarlo al hospital por falta de aire y empeoramiento de los s??ntomas de la insuficiencia card??jaun. ?? Last Reviewed Date: 2021 ?? [id number] [employer]. Todos los derechos reservados. Esta informaci??n no pretende sustituir la atenci??n m??dica profesional. S??lo dubon m??dico puede diagnosticar y tratar un problema de daniela. ?? * Event Display: Hemodynamic Procedure Report Authored Date: [id number] * Paty Cho RN: PERFORM, SIGN, VERIFY Event Display: Cardiac Rehab Note Authored Date: [id number] Patient: KHLOE MARTINEZ Age: 78 years Sex: Female : 1945 Associated Diagnoses: None Author: Paty Cho RN Pre-exercise Vitals Vital Signs Comment: Reviewed in [facility]. Pre-exercise Physical Examination Neurologic: alert & oriented. Patient Education Education: Family present, Post procedure guidelines. Education topic Teachback comprehension 75% Topic: Role of exercise, Home activity guidelines/limits. Recommendation and Plan Outpatient follow up recommended: [facility]. Cardiac Rehab: Will sign off at this time. Recommendation comment: RN notified of plan. * Jennie Luna: SIGN SchneiderLuna gallegos: SIGN, SIGN, VERIFY Event Display: Patient Education Handout Authored Date: [id number] Admission evaluation note * Karin Izquierdo NP: MODIFY, MODIFY, MODIFY, MODIFY, MODIFY, MODIFY, MODIFY, MODIFY, MODIFY, MODIFY, PERFORM Event Display: Admission Note Authored Date: [id number] Patient: ??KHLOE MARTINEZ ? Age:??78 Years?Sex:??Female?:??1945?? History of Present Illness The patient is a 78 -year-old Guatemalan speaking female seen with the assistance of a medical unit secretary??with PMH of severe aortic stenosis, coronary artery disease, PAD (bilateral SFA occlusion), carotid artery stenosis, HFpEF, CKD stage III with baseline creatinine 1.5, COPD, IDDM2, hypertension, hyperlipidemia, morbid obesity, and JOSE who is transferred from [facility] where she was admitted for CHF exacerbation in the setting of severe aortic stenosis. ??She was recently admitted herefor acute respiratory failure with hypoxia and hypercapnia, CHF, and pneumonia and discharged on 04/07. The patient reports that she felt better after discharge but she began to feel more short of breath over the next several days.?? Her visiting nurse??noticed that she was hypoxic despite being on 2-3 L NC supplemental O2.?? She was readmitted to [facility] on 04/16 for hypoxia, requiring rescue Bipap for acute exacerbation of ??heart failure.?? Chest Xray at [facility] showed multifocal pneumonia with bilateral pleural effusions.?? Chest CT also showed multifocal airspace opacities and pleural effusions.?? She was seen by can reconditioner, Dr Sexton, who recommended transfer for transcatheter aortic valve replacement as soon as possible. ?? She was previously seen 3 years ago??by Dr Tellez from [facility] who had offered her open??CABG/AVR which she declined and she??was lost to follow up.?? An echocardiogram??08/02??showed severe ,??withevidence of significant calcification with a mean gradient of??56, normal EF, and mild TR and AI. ??The patient underwent??repeat??cardiac [id number]/31/22??that revealed??stable CAD with 75% LAD, 70% LCx, 75% RCA stenosis.?? She??was again seen by Dr Tellez in October of this year.?? At that time she was no longer considered an open heart surgery candidate given age, comorbidities, functional status, given the high risk nature and complexity.?? A TAVR was discussed and scheduled for December.?? However, unfortunately, the patient;s and the procedure was cancelled. At this time the patient reports improvement in her shortness of breath.?? She does note general weakness,??orthopnea??and a??dry cough.?? She denies chest pain, fever, chills,?? palpitations, dizziness/lightheadedness,?? nausea, vomiting, dark stools or abdominal pain.? On arrival the patient is afebrile with stable vital signs.?? Oxygen saturation is 93% on 3 L OxyMask.?? EKG shows normal sinus rhythm, ST and T wave abnormality, TW inversion, rate 60.?? CBC shows WBC of 17.3.? POC glucose is 207. Chemistry is pending.?? The patient is admitted for CHF exacerbation, severe aortic stenosis, CAP??and for TAVR evaluation. Review of Systems Constitutional:??No weight loss, fever, chills.?Weakness, fatigue. Allergy/Immune: Denies any??Eczema or hives Eyes:??No visual loss, blurred vision, double vision or yellow sclera ENT:??No hearing loss, sneezing, congestion, runny nose or sore throat. Respiratory:??Shortness of breath, cough. Cardiovascular:??No chest pain, chest pressure or chest discomfort.?? Orthopnea. No palpitations orpedal edema. Gastrointestinal:??No anorexia, nausea, vomiting or diarrhea. [...] polyuria or polydipsia. Psychiatric:??No depression or anxiety. Objective Vital Signs?? Temperature: 97.7 DegF (04/17/23:11:00) Temperature Route: Oral (04/17/23::) Pulse Rate: 68 bpm (04/17/23:11:00) Respiratory Rate: 20 br/min (04/17/23:11:) Systolic Blood Pressure: 133 mm Hg (04/17/23::) Diastolic Blood Pressure:??46 mm Hg??Low (04/17/23:11:) Blood pressure sites: Arm, left (04/17/23:11:00) Mean Arterial Pressure: 110 mm Hg (04/17/23 16:17:00) Pulse Pressure: 87 mm Hg (04/17/23::) Oxygen Saturation:??93 %??Low (04/17/23::00) Liters per Minute: 3 L/min (04/17/23:11:00) Mode of Delivery (Oxygen): Oxymask/Variable Concentration Mask (07/15/23 21:11:00) Early Warning Score: 7 (04/17/23 22:44:53) ? Intake/Output? 04/17 15:34 04/17 07:00 04/16 07:00 04/15 07:00 04/14 07:00 ?? 04/17 22:48 04/17 22:48 04/17 06:59 04/16 06:59 04/15 06:59 Intake ?0 ?0 ?0 ?0 ?0 Output ?250 ?250 ?0 ?0 ?0 Net Total ? -250 ? -250 ?0 ?0 ?0 ? Physical Exam Constitutional: Alert, obese, in no acute distress. Mental Status: Oriented to person, place and time. Head: Normocephalic. Eyes: Pupils are equal, round and reactive to light. Extraocular muscles intact. Ear, Nose and Throat: Oropharynx clear, mucous membranes moist. Ears and nose without masses, lesions or deformities. Trachea midline. Neck: Supple, Full range of motion. Respiratory: Clear to auscultation. No wheezing, rales or rhonchi. Cardiovascular: S1 S2 regular.??2/6 systolic murmur. No rubs or gallops. Gastrointestinal: Abdomen soft, non-tender, non-distended. Normal bowel sounds. No pulsatile mass. No hepatosplenomegaly. Genitourinary: No costovertebral angle tenderness. Neurologic: Cranial nerves II-XII grossly intact. No focal neurological deficits. Flexor plantar response. Moves all extremities spontaneously. Sensation intact bilaterally. Skin: No rashes or lesions. No petechiae or purpura.?? Musculoskeletal: No cyanosis or clubbing. No gross deformities. Normal range of motion. Heme/Lymphatics/Immun: Palpation of neck reveals no swelling or tenderness of neck nodes. Psychiatric: Normal mood and affect Assessment/Plan Assessment:??The patient is a 78 -year-old Guatemalan speaking female seen with the assistance of a medical unit secretary with PMH of severe aortic stenosis, coronary artery disease, PAD (bilateral SFA occlusion), carotid artery stenosis, HFpEF, CKD stage III with baseline creatinine 1.5, COPD, IDDM2, hypertension, hyperlipidemia, morbid obesity, and JOSE who is transferred from [facility] where she was admitted for CHF exacerbation in the setting of severe aortic stenosis. She was recently admitted here for acute respiratory failure with hypoxia and hypercapnia, CHF, and pneumonia and discharged on 04/07. The patient reports that she felt better after discharge but she began to feel more short of breath over the next several days. Her visiting nurse noticed that she was hypoxic despite being on 2-3 L NC supplemental O2. She was readmitted to [facility] on 04/16 for hypoxia, requiring rescue Bipap for acute exacerbation of heart failure. Chest X-ray at [facility] showed multifocal pneumonia with bilateral pleural effusions. Chest CT also showed multifocal airspace opacities and pleur al effusions. She was seen by can reconditioner, Dr Sexton, who recommended transfer for transcatheter aortic valve replacement as soon as possible. ?? She was previously seen [address] Tellez from [facility] who had offered her open CABG/AVR which she declined and she was lost to follow up. An echocardiogram 08/02 showed severe , with evidence of significant calcification with a mean gradient of 56, normal EF, and mild TR and AI. The patient underwent repeat cardiac [id number]/31/22 that revealed stable CAD with 75% LAD, 70% LCx, 75% RCA stenosis. She was again seen by Dr Tellez in October of this year. At that time she was no longer considered an open heart surgery candidate given age, comorbidities, functional status, given the high risk nature and complexity. A TAVR was discussed and scheduled for December. However, unfortunately, the patient;s and the procedure was cancelled. At this time the patient reports improvement in her shortness of breath. She does note general weakness, orthopnea and a dry cough. She denies chest pain, fever, chills, palpitations, dizziness/lightheadedness, nausea, vomiting, dark stools or abdominal pain. ?? On arrival the patient is afebrile with stable vital signs. Oxygen saturation is 93% on 3 L OxyMask. EKG shows normal sinus rhythm, ST and T wave abnormality, TW inversion, rate 60. CBC shows WBC of 17.3. POC glucose is 207. Chemistry is pending. The patient is admitted for CHF exacerbation, severeaortic stenosis, CAP and for TAVR evaluation. ?? Acute Exacerbation of??Congestive Heart Failure: Severe Aortic Stenosis: Hypoxic respiratory failure: 78 -year-old Guatemalan speaking female seen with the assistance of a medical unit secretary with [facility] of severe aortic stenosis, coronary artery disease, PAD (bilateral SFA occlusion), carotid artery stenosis, HFpEF, CKD stage III with baseline creatinine 1.5, COPD, IDDM2, hypertension, hyperlipidemia, morbid obesity, and JOSE transferred from [facility] where she was admitted for CHF exacerbationin the setting of severe aortic stenosis.?? Patient was recently admitted here for acute respiratory failure with hypoxia and hypercapnia, CHF, and pneumonia and discharged on 04/07. She was previouslyseen [address] Tellez who recommended open CABG/AVR (no longer a candidate), which the patient declined and subsequently seen again in October of this year and planned for TAVR, which was postponed when the patient's .?? She now presents again for the 2d time in 2 weeks for recurrent acute exacerbation of congestive heart failure in the setting of severe aortic stenosis.?? The patient was seen at [facility] by Dr Sexton, who recommended transfer for transcatheteraortic valve replacement as soon as possible.?? This was communicated with Dr Anderson from [facility]. -Admit to telemetry. -Continue diuresis with IV lasix 40 mg BID.. -Continue supportive care with oxygen. -Strict I&O. -Monitor renal function. -Blood pressure control. -Consult cardiology. -Consult Cardiothoracic surgery. ?? Community Acquired Pneumonia: CXR and CT chest at [facility] ??indicate multifocal pna/airspace disease. -Continue Ceftriaxone. ?? COPD: Asthma: Patient takes Trelegy at home which is not on formulary. -Substitute Breo Ellipta. -prn albuterol. -Continue Montelukast. -Prednisone 40 mg to end 04/19. ?? Coronary Artery Disease: Multivessel CAD: -Continue ASA, carvedilol 25 mg BID, atorvastatin 80 mg daily. ?? CKD: -Creatinine appears to be within baseline. -Continue to monitor. -Avoid nephrotoxic medications. ?? Diabetes: -Patient takes Lantus, ISS,??Tradjenta and Jardiance at home. -Continue Lantus 32 units HS, -Monitor glucose POC, before melas and HS. -Cover meals with MANSOOR. -Hold Jardiance, Tradjenta. -Hypoglycemic emergency orders. ?? Hypertension: -Blood pressure well controlled. -Continue Carvedilol, amlodipine and hydralazine. ?? JOSE: -CPAP if needed. ?? Glaucoma: -Continue home eye drops.? Diet: Cardiac diabetic. ?? DVT prophylaxis: Heparin SC. ?? Code Status:?? Full Code. ?? Discharge Planning:?? OMN-needs evaluation for TAVR. ? Histories Allergies Allergies ?(Active and Proposed Allergies Only) Percocet 7.5/325? (Severity: Unknown severity, Onset: Unknown) ?Reactions: hallucinations Motrin? (Severity: Unknown severity, Onset: Unknown) ?Reactions: High BP ? Past Medical History/Problem List Active Problems??(6) Asthma Cardiac catheterization Diabetes mellitus Hyperlipidemia Hypertension Severe obesity COPD. CKD. ? Past Surgical History No surgery history documented. ? Social History Tobacco Details:??Use: Never (less than 100 in lifetime). ? Psychosocial History ? Family History No family history recorded. ? Medications Home Medications Amlodipine (amLODIPine 10 mg oral tablet)?1?tab(s)?10?Milligram?By Mouth?Daily Amlodipine (amLODIPine 10 mg oral tablet)?1?tab(s)?10?Milligram?By Mouth?Daily Aspirin (aspirin 81 mg oral delayed release tablet)?81?Milligram?1?tablet?By Mouth?Daily at bedtime Aspirin (Aspirin Low Dose 81 mg oral delayed release tablet)?1?tab(s)?81?Milligram?By Mouth?Daily Atorvastatin (atorvastatin 40 mg oral tablet)?1?tab(s)?40?Milligram?By Mouth?Daily at bedtime Brimonidine Ophthalmic (brimonidine 0.2% ophthalmic solution)?1?Drops?Eyes, Both?2 times a day Carvedilol (carvedilol 25 mg oral tablet)?25?Milligram?1?tablet?By Mouth?2 times a day Carvedilol (carvedilol 25 mg oral tablet)?25?Milligram?1?tablet?By Mouth?2 times a day Cyanocobalamin (Vitamin B-12 1000 mcg oral tablet)?1,000?Microgram?1?tablet?By Mouth?Daily Dexamethasone / Tobramycin Ophthalmic (dexamethasone-tobramycin 0.1%-0.3% ophthalmic suspension)?PLACE 1 DROP IN EACH EYE FOUR TIMES DAILY empagliflozin (empagliflozin 10 mg oral tablet)?1?tab(s)?10?Milligram?By Mouth?Daily in AM empagliflozin (Jardiance 10 mg oral tablet)?1?tab(s)?10?Milligram?By Mouth?Daily in AM empagliflozin (Jardiance 10 mg oral tablet)?TAKE 1 TABLET BY MOUTH EVERY MORNING Ergocalciferol (Vitamin D 32632 iu oral capsule)?50,000?International Unit?1?capsule?By Mouth?Every week Esomeprazole (esomeprazole 40 mg oral enteric coated capsule)?1?capsule?40?Milligram?By Mouth?Daily Ferrous Sulfate (ferrous sulfate 325 mg oral enteric coated tablet)?325?Milligram?By Mouth?Every other day?[place] luigi capsula cada otro jessica. Ferrous Sulfate (ferrous sulfate 325 mg oral enteric coated tablet)?MONICA 1 TABLETA POR LA BOCA CADA OTRO JESSICA fluticasone/umeclidinium/vilanterol (Trelegy Ellipta 200 mcg-62.5 mcg-25 mcg/inh inhalation powder)?1?puff(s)?Inhalation?Daily?at the same time every day fluticasone/umeclidinium/vilanterol (Trelegy Ellipta inhalation powder)?1?puff(s)?Inhalation?Daily?at the same time every day Folic Acid (folic acid 1 mg oral tablet)?1?Milligram?1?tablet?By Mouth?Daily Gabapentin (gabapentin 300 mg oral capsule)?300?Milligram?1?capsule?By Mouth?Daily at bedtime hydrALAZINE (hydrALAZINE 25 mg oral tablet)?25?Milligram?1?tablet?By Mouth?2 times a day hydrALAZINE (hydrALAZINE 25 mg oral tablet)?25?Milligram?1?tablet?By Mouth?2 times a day Insulin Aspart (NovoLOG FlexPen 100 units/mL injectable solution)?3?unit(s)?Subcutaneous Injection?3 times a day before meals?INJECT 5-10 UNITS SUBCUTANEOUSLY THREE TIMES DAILY DIRECTED Insulin Glargine (Toujeo SoloStar 300 units/mL subcutaneous solution)?34?unit(s)?Subcutaneous Injection?Daily in AM Latanoprost Ophthalmic (latanoprost 0.005% ophthalmic solution)?1?Drops?Eyes, Both?Daily in PM Latanoprost Ophthalmic (latanoprost 0.005% ophthalmic solution)?INSTILL 1 DROP IN EACH EYE AT BEDTIME linagliptin (Tradjenta 5 mg oral tablet)?1?tab(s)?5?Milligram?By Mouth?Daily Montelukast (montelukast 10 mg oral tablet)?10?Milligram?1?tablet?By Mouth?Daily before dinner Montelukast (montelukast 10 mg oral tablet)?TAKE 1 TABLET BY MOUTH EVERY EVENING PredniSONE (predniSONE 20 mg oral tablet)?TAKE 2 TABLETS BY MOUTH DAILY torsemide (torsemide 20 mg oral tablet)?1?tab(s)?20?Milligram?By Mouth?2 times a day?for 30?Days torsemide (torsemide 20 mg oral tablet)?1?tab(s)?20?Milligram?By Mouth?Daily ? Inpatient Medications Medications (29) Active SCHEDULED: (22) Amlodipine 10 mg Tablet (amLODIPine 10 mg oral tablet) ??10 mg, By Mouth, Daily Aspirin 81 mg EC Tablet (aspirin 81 mg oral delayed release tablet) ??81 mg, By Mouth, Daily at bedtime Atorvastatin 80 mg Tablet (atorvastatin 40 mg oral tablet) ??80 mg, By Mouth, Daily at bedtime Breo Ellipta 200 mcg / 25 mcg Inhaler (Breo Ellipta 200 mcg-25 mcg Inhaler) ??1 puffs, Inhalation, Daily Brimonidine 0.2% Ophthalmic Solution (brimonidine 0.2% ophthalmic solution) ??0.2 % 1 drops, Eyes, Both, 2 times a day Calcium Acetate 667 mg Tablet (calcium acetate 667 mg oral tablet) ??667 mg 1 tablet, By Mouth, 2 times a day Carvedilol 25 mg Tablet (carvedilol 25 mg oral tablet) ??25 mg, By Mouth, 2 times a day Ceftriaxone (Ceftriaxone Inj) ??1 Gm, IVPB, Every 24 hours Ferrous Sulfate 325 mg EC Tablet (ferrous sulfate 325 mg oral enteric coated tablet) ??325 mg, By Mouth, Every other day Fluticasone Propionate 50mcg/inh Nasal [place] (fluticasone 50 mcg/inh nasal spray) ??50 mcg 1 sprays, Nares, Both, 2 times a day Folic Acid 1 mg Tablet (folic acid 1 mg oral tablet) ??1 mg, By Mouth, Daily Furosemide Inj (Lasix ??Inj) ??40 mg 4 mL, IV Push Slowly, 2 times a day Gabapentin 300 mg Capsule (gabapentin 300 mg oral capsule) ??300 mg, By Mouth, Daily at bedtime hydrALAZINE 25 mg Tablet (hydrALAZINE 25 mg oral tablet) ??25 mg, By Mouth, 2 times a day Insulin Glargine 100 units/mL Inj (Insulin Glargine Inj) ??32 units 0.32 mL, Subcutaneous Injection, Daily at bedtime Insulin Lispro 100 units/mL Inj (3mL) (Insulin LISPRO Sliding Scale) ??2-10 units, Subcutaneous Injection, 3 times a day before meals Latanoprost 0.005% Ophthalmic Solution (latanoprost 0.005% ophthalmic solution) ??1 drops, Eyes, Both, Daily at bedtime Montelukast 10 mg Tablet (montelukast 10 mg oral tablet) ??10 mg, By Mouth, Daily at bedtime NaCl 0.9% Flush 3ml (NaCL 0.9% Flush) ??3 mL, IV Push, Every 8 hours Pantoprazole 40 mg EC Tablet (pantoprazole 40 mg oral delayed release tablet) ??40 mg, By Mouth, Daily PredniSONE 20 mg Tablet (predniSONE 20 mg oral tablet) ??40 mg, By Mouth, Daily Vitamin B-12 ??1000 mcg Tablet (Vitamin B-12 1000 mcg oral tablet) ??1,000 mcg, By Mouth, Daily CONTINUOUS: (0) PRN: (7) Albuterol 0.083% Inhalation Solution (Albuterol 0.083% inhalation laci) ??2.5 mg 3 mL, BAND Nebulizer, Every 4 hours Dextromethorphan-Guaifenesin 20 mg-200 mg/10 mL Liqu UD (Robitussin DM Liquid) ??10 mL, By Mouth, Every 4 hours Melatonin 3 mg Tablet (Melatonin Tablet) ??3 [...] Recent Labs BLOOD COUNT & DIFF WBC 17.3 k/mm3 (High)?? 04/17/2023 21:42 RBC 3.50 m/mm3 (Low)?? 04/17/2023 21:42 Hgb 8.3 Gm/dL (Low)?? 04/17/2023 21:42 Hct 26.9 % (Low)?? 04/17/2023 21:42 MCV 76.9 femtoliters (Low)?? 04/17/2023 21:42 MCH 23.7 pg (Low)?? 04/17/2023 21:42 MCHC 30.9 g/dL (Low)?? 04/17/2023 21:42 Platelet Count 419 k/mm3 ()?? 04/17/2023 21:42 RDW-SD 54.1 femtoliters (High)?? 04/17/2023 21:42 MPV 9.4 femtoliters ()?? 04/17/2023 21:42 Nucleated RBC (Automated) 0.1 #/100 WBC'S ()?? 04/17/2023 21:42 Abs. NRBC 0.0 k/mm3 ()?? 04/17/2023 21:42 ?? CHEM GENERAL Sodium 140 mmol/L ()?? 04/17/2023 21:42 Potassium 4.0 mmol/L ()?? 04/17/2023 21:42 Chloride 102 mmol/L ()?? 04/17/2023 21:42 Bicarbonate Level 27 mmol/L ()?? 04/17/2023 21:42 Anion Gap 11 ()?? 04/17/2023 21:42 Glucose Level 190 mg/dL (High)?? 04/17/2023 21:42 Glucose, POC 210 mg/dL (High)?? 04/17/2023 21:15 BUN 48 mg/dL (High)?? 04/17/2023 21:42 Creatinine-Blood 1.8 mg/dL (High)?? 04/17/2023 21:42 Estimated GFR Creatinine 28 ML/MIN/1.73 M2 ()?? 04/17/2023 21:42 Calcium 9.3 mg/dL ()?? 04/17/2023 21:42 ?? URINE OTHER Est Creatinine Clearance 15.78 mL/min ()?? 04/17/2023 22:44 ? EKG study * Event Display: ECG 12-Lead Authored Date: Please click on pdf link to open report * Event Display: ECG 12-Lead Authored Date: Ventricular Rate: 52 BPM Atrial Rate: 52 BPM P-R Interval: 142 ms QRS Duration: 156 ms Q-T Interval: 500 ms QTC Calculation(Bazett): 465 ms P [place]: 48 degrees R [place]: 25 degrees T [place]: 159 degrees Sinus bradycardia Left bundle branch block Abnormal ECG When compared with ECG of 28-APR-2023 11:33, T wave inversion more evident in Lateral leads Confirmed by JOE STILL ([id number]) on 04/29/2023 1:25:22 PM [place]: JOE STILL * Event Display: ECG 12-Lead Authored Date: Please click on pdf link to open report * Event Display: ECG 12-Lead Authored Date: Ventricular Rate: 70 BPM Atrial Rate: 70 BPM P-R Interval: 134 ms QRS Duration: 154 ms Q-T Interval: 444 ms QTC Calculation(Bazett): 479 ms P [place]: 50 degrees R [place]: 43 degrees T [place]: 186 degrees Normal sinus rhythm Left bundle branch block Abnormal ECG When compared with ECG of 27-APR-2023 12:03, T wave inversion less evident in Inferior leads T wave inversion less evident in Lateral leads Confirmed by JOE STILL ([id number]) on 04/28/2023 12:05:45 PM [place]: JOE STILL * Event Display: ECG 12-Lead Authored Date: Please click on pdf link to open report * Event Display: ECG 12-Lead Authored Date: Ventricular Rate: 66 BPM Atrial Rate: 66 BPM P-R Interval: 150 ms QRS Duration: 152 ms Q-T Interval: 468 ms QTC Calculation(Bazett): 490 ms P [place]: 59 degrees R [place]: 58 degrees T [place]: 220 degrees Normal sinus rhythm Left bundle branch block Abnormal ECG When compared with ECG of 27-APR-2023 10:20, No significant change was found Confirmed by MISSY PRITCHARD ([id number]) on 04/27/2023 2:06:36 PM [place]: MISSY PRITCHARD Heart * Event Display: Echocardiogram - Complete Authored Date: [id number] Transthoracic Echocardiography Report (TTE) Patient Demographics Patient Name KHLOE MARTINEZ Date of Study 04/28/2023 Corporate Gender Female Facility Race Ethnicity or Date of 1945 Height: 57.09 inches Age 78 year(s) Weight: 191.8 pounds Accession Number [id number] BSA: 1.77 m2 Room Number [id number] BMI: 41.38 kg/m2 Referring Physician Kavitha HOFFMAN Interpreting Aaron Lehman MD Physician Plant Propagator Radha Jack [facility] Indications Other. Additional Indications:S/P TAVR Clinical History HFpEF. S/P TAVR- Evolut Pro #26 Diabetes Mellitus. COPD. Hyperlipidemia. Hypertension. Study Data Type of Study TTE procedure:Echo Complete-Doppler, Colorflow, M-Mode. Study Date04/28/2023 Start Time: 09:21 AM Study Location: [facility] Adult Echo Study Status: Echo lab Patient Status: Routine Technical Quality: Adequate Blood Pressure:136/78 mmHg EKG: Within normal limits HR: 70 bpm Allergies - No known allergies. - Motrin. - Percocet (Oxycodone). 2D Measurements LV Diastolic Dimension: 4.49 cm LV Systolic Dimension: 2.4 cm LV Septum Diastolic: 1.2 cm LV PW Diastolic: 1.28 cm LA ESV (BP):102.63 ml LA ESV Index: 58 ml/m2 LVOT Stroke Volume: 81.85 ml LVOT: 2.08 cm Stroke Volume Index46.24 ml/m2 Ascending Aorta:2.66 cm Cardiac Index:3.24 l/min/m2 Doppler Measurements AV Peak Velocity: 223 cm/s MV Peak E-Wave: 154 cm/s AV Peak Gradient: 19.89 mmHg MV Peak A-Wave: 92 cm/s AV Mean Gradient: 11 mmHg MV E/A Ratio: 1.67 AV VTI:52.7 cm MV P1/2t: 64 msec LVOT Peak Velocity: 121 cm/s LVOT VTI24.1 cm MV Deceleration Time: 219 msec AV Area (Continuity):1.55 cm2 MV Area (PHT): 3.44 cm2 TR Velocity:272 cm/s PV Peak Velocity: 130 cm/s TR Gradient:29.59 mmHg PV Peak Gradient: 6.76 mmHg E' Septal Velocity: 6.85 cm/s E' Lateral Velocity: 8.92 cm/s E/Med E':[id number] E/Lat E':17.51287 Cardiac Anatomy Left Ventricle/Interventricular Septum The left ventricular size is normal. The left ventricular wall thickness is mildly increased. There is mild concentric left ventricular hypertrophy. The LV systolic function is normal . The left ventricular ejection fraction is 65-70 %. There are no definite regional wall motion abnormalities. Grade II, moderate diastolic dysfunction with pseudonormal LV filling pattern and increased LA pressure. Left Atrium/Interatrial Septum The left atrium is severely dilated. Aortic Valve There is a transcatheter aortic valve implantation (LINDSEY Evolut FX #26) in the aortic position. The aortic valve is is poorly visualized. There is no paravalvular leak. There is no central aortic insufficiency. Mitral Valve There is moderate mitral annular calcification. The mitral valve chordal apparatus is moderately thickened. There is moderate mitral regurgitation. The mitral regurgitation jet is anteriorly, eccentrically directed. There is no significant mitral stenosis. Aorta The aorta is not well visualized. Right Ventricle The right ventricle is normal in size. Right ventricular systolic function appears preserved. Right Atrium The right atrium is normal in size. Pulmonic Valve The pulmonic valve appears grossly normal. Tricuspid Valve The tricuspid valve is grossly normal. There is mild to moderate tricuspid valve regurgitation. Pumonary Artery The pulmonary artery systolic pressure estimation is within normal limits. Venous Structures There is systolic blunting of pulmonary venous flow. The inferior vena cava is poorly visualized. The inferior vena cava appears grossly normal. Pericardium/Extracardiac There is no significant pericardial effusion. Summary The left ventricular size is normal. The left ventricular wall thickness is mildly increased. There is mild concentric left ventricular hypertrophy. The LV systolic function is normal . The left ventricular ejection fraction is 65-70 %. There are no definite regional wall motion abnormalities. Grade II, moderate diastolic dysfunction with pseudonormal LV filling pattern and increased LA pressure. The left atrium is severely dilated. There is a transcatheter aortic valve implantation (LINDSEY Evolut FX #26) in the aortic position. The aortic valve is is poorly visualized. There is no paravalvular leak. There is no central aortic insufficiency. There is moderate mitral annular calcification. The mitral valve chordal apparatus is moderately thickened. There is moderate mitral regurgitation. The mitral regurgitation jet is anteriorly, eccentrically directed. There is no significant mitral stenosis. The right ventricle is normal in size. Right ventricular systolic function appears preserved. Comparison Comparison is made to the study of April 27, 2023. There is no definite interval change. Eccentric mitral regurgitation present but under appreciated prior studies in 2022 (but not 2021). Signature * Event Display: Echocardiogram - Complete Authored Date: [id number] * Event Display: Echocardiogram - Complete Authored Date: [id number] Transthoracic Echocardiography Report (TTE) Patient Demographics Patient Name KHLOE MARTINEZ Date of Study 04/27/2023 Corporate Gender Female Facility Race Ethnicity or Date of 1945 Height: 57.09 inches Age 78 year(s) Weight: 191.8 pounds Accession Number [id number] BSA: 1.77 m2 Room Number [id number] BMI: 41.38 kg/m2 Referring Physician Robyn HOFFMAN Interpreting Missy Pritchard MD Physician Plant Propagator Luisa Diggs RD Indications Heart valve replacement auto/porcine. Clinical History HFpEF Immed post-TAVR Evolut Pro #26 Diabetes Mellitus. COPD Hypertension. Hyperlipidemia. Study Data Type of Study TTE procedure:Echo 2D Limited or Follow-up, Colorflow. Procedure Information:Limited study post TAVR Medtronic Evolut Pro #26 Study Date04/27/2023 Start Time: 08:18 AM Study Location: [facility] Adult Echo Study Status: cath lab Patient Status: STAT Technical Quality: Fair Blood Pressure:90/60 mmHg EKG: Paced HR: 66 bpm Allergies - No known allergies. - Motrin. - Percocet (Oxycodone). 2D Measurements LV Diastolic Dimension: 4.3 cm LV Systolic Dimension: 2.7 cm LV Septum Diastolic: 0.8 cm LV PW Diastolic: 0.8 cm LVOT: 2 cm LVOT Stroke Volume: 70.65 ml Stroke Volume Index39.92 ml/m2 Cardiac Index:2.63 l/min/m2 Doppler Measurements AV Peak Velocity: 163 cm/s AV Peak Gradient: 10.63 mmHg AV Mean Gradient: 6 mmHg AV VTI:36.3 cm LVOT Peak Velocity: 83.8 cm/s LVOT VTI22.5 cm AV Area (Continuity):1.95 cm2 Cardiac Anatomy Left Ventricle/Interventricular Septum Normal LV systolic function. Ejection fraction is 55-65%. Aortic Valve TAVR Evolut Pro #26 bioprosthesis. No central aortic insufficiency. The mean gradient is 6 mmHg. There is no perivalvular leak. Pericardium/Extracardiac There is no pericardial effusion. Summary Limited study. Normal LV systolic function. Ejection fraction is 55-65%. TAVR Evolut Pro #26 bioprosthesis. No central aortic insufficiency. The mean gradient is 6 mmHg. There is no perivalvular leak. There is no pericardial effusion. Comparison Comparison is made to the study of April 22, 2023. TAVR Evolut Pro #26 is now seen with normal function. Signature * Event Display: Echocardiogram - Complete Authored Date: [id number] * Event Display: Echocardiogram - Complete Authored Date: [id number] Transthoracic Echocardiography Report (TTE) Patient Demographics Patient Name KHLOE MARTINEZ Date of Study 04/22/2023 Corporate Gender Female Facility Race Ethnicity or Date of 1945 Height: 57 inches Age 78 year(s) Weight: 196.19 pounds Accession Number [id number] BSA: 1.78 m2 Room Number [id number] BMI: 42.45 kg/m2 Referring Physician Sunshine Benites Interpreting Ladonna Anderson Physician Plant Propagator Marielena Villanueva Fellow Rosa Isela Alexander DO Indications Other. Additional Indications:Severe Aortic Stenosis. Clinical History HFpEF. Hypertension. Hyperlipidemia. Congestive heart failure. Diabetes Mellitus. COPD. Study Data Type of Study TTE procedure:Echo Complete-Doppler, Colorflow, M-Mode. Study Date04/22/2023 Start Time: 10:52 AM Study Location: [facility] Adult Echo Study Status: Bedside Patient Status: [facility] Technical Quality: Fair due to body habitus. Blood Pressure:120/48 mmHg EKG: Normal sinus rhythm HR: 62 bpm Allergies - No known allergies. - Motrin. - Percocet (Oxycodone). 2D Measurements LV Diastolic Dimension: 4.5 cm LV Systolic Dimension: 3.1 cm LV Septum Diastolic: 1.1 cm LV PW Diastolic: 1.2 cm AO Root Dimension: 2.6 cm LA Dimension: 4 cm LA ESV (BP):103 ml LVOT Stroke Volume: 44.81 ml LA ESV Index: 58 ml/m2 Stroke Volume Index25.17 ml/m2 LVOT: 1.6 cm Cardiac Index:1.56 l/min/m2 Ascending Aorta:2.9 cm Doppler Measurements AV Peak Velocity: 441 cm/s MV Peak E-Wave: 161 cm/s AV Peak Gradient: 77.79 mmHg MV Peak A-Wave: 53.8 cm/s AV Mean Gradient: 47 mmHg MV E/A Ratio: 2.99 AV VTI:136 cm MV P1/2t: 112 msec LVOT Peak Velocity: 75 cm/s MV Mean Gradient: 3 mmHg LVOT VTI22.3 cm MV Area (continuity): 0.99 cm2 AV Area (Continuity):0.33 cm2 MV Deceleration Time: 238 msec AV P1/2t: 397 msec MV Area (PHT): 1.96 cm2 TR Velocity:365 cm/s TR Gradient:53.29 mmHg PV Peak Velocity: 131 cm/s Estimated RAP:3 mmHg PV Peak Gradient: 6.86 mmHg Estimated RVSP: 56.3 mmHg E' Septal Velocity: 8.7 cm/s E' Lateral Velocity: 8.27 cm/s E/Med E':[id number] E/Lat E':19.00841 Cardiac Anatomy Left Ventricle/Interventricular Septum The left ventricle is mildly dilated. Ejection fraction is 55-60%. No definite wall motion abnormalities detected. Grade III diastolic dysfunction. Left Atrium/Interatrial Septum The left atrium is moderately to severely dilated. An atrial septal defect cannot be excluded. Aortic Valve The aortic valve is thickened. There is severe aortic stenosis (DI 0.15). Moderate aortic regurgitation. Mitral Valve There is mitral annular calcification. Leaflet opening reduced. Mild regurgitation. There appears to be mild mitral stenosis. Aorta The ascending aorta and aortic root are normal in size when indexed. Right Ventricle The right ventricle is normal in size. Function appears borderline preserved. Right Atrium The right atrium is dilated. Pulmonic Valve Trace regurgitation. Tricuspid Valve Mild regurgitation. Pumonary Artery The pulmonary artery systolic pressure estimation is 55-60 mmHg. Venous Structures IVC is normal in size. Inspiratory collapse is normal. Pericardium/Extracardiac No significant pericardial effusion detected. Summary The left ventricle is mildly dilated. Ejection fraction is 55-60%. No definite wall motion abnormalities detected. Grade III diastolic dysfunction. The left atrium is moderately to severely dilated. There is severe aortic stenosis (DI 0.15). Moderate aortic regurgitation. The right ventricle is normal in size. Function appears borderline preserved. The right atrium is dilated. The pulmonary artery systolic pressure estimation is 55-60 mmHg. Signature * Event Display: Echocardiogram - Complete Authored Date: Cardiology * Event Display: Cardiac Rhythm Strips Authored Date: * Event Display: Cardiac Rhythm Strips Authored Date: Cardiac surgery Outpatient Note * Brooklyn Maldonado RN: PERFORM, SIGN, VERIFY Event Display: Cardiac Surgery Note Office Authored Date: [id number] Patient: KHLOE MARTINEZ Age: 78 years Sex: Female : 1945 Associated Diagnoses: None Author: Brooklyn Maldonado RN TAVR Program Functional Assessment Test The KCCQ12 questionnaire was documented separately from this series of tests. A walk and preventive maintenance engineer tests were performed on this patient with the following results: Patient unable to complete due to SOB Walk Test- Five-meter Gait Speed #1 - _sec #2 - _sec #3 - _sec Equals = _sec Average = _sec Average Adult Gravity Prospecting Operator Strength (kg) Right: #1 - _kg #2 - _kg #3 - _kg Equals = _kg Average = _kg Graded Classification: _ Left: #1 - _kg #2 - _kg #3 - _kg Equals = _kg Average = _kg Graded Classification: _ Hospital Progress note * Paul SOLIMAN, Naye Mortensen: PERFORM Event Display: Progress Note Hospital Authored Date: Patient: ??KHLOE MARTINEZ ? Age:??78 Years?Sex:??Female?:??1945?? Patient Hx Cardiology Shared Clinical Summary Primary Border Machine Operator: Dr. Salomon Provider Clinical Summary Patient is a pleasant [...] multivessel CAD, and progressive calcific aortic stenosis who presented to [facility] for a TAVR. History of Present Illness/Interval History Patient seen and examined with the assistance of a ground water pump installer States she feels fine No CP SOB Patient had some pauses and bradycardia overnight-asymptomatic SR with LBBB on telemetry during rounds Review of Systems Patient denies CP, dizziness, lightheadedness, palpitation, syncope, orthopnea, SOB or LE edema Physical Exam Vitals & Measurements T:??97.8?F?? HR:??52??(Peripheral)?? RR:??18?? BP:??120/34?? SpO2:??97%?? HT:??145??cm?? WT:??87.1??kg?? BMI:??41.38?? Weight lb/oz: 192 lb 0 oz Assessment/Plan #Severe Aortic stenosis #Anemia #Arrhythmia -S/p TAVR with a 26mm MDT bioprosthetic valve -Post procedure echo showed EF 55-60%, good placement with a MG 6 and no perivalvular leak. -Repeat echo done on 04/28 showed EF 65-70%, no definite regional wall motion abnormality, grade IIIdiastolic dysfunction with??pseudo filing pattern and elevated LA pressure, bioprosthetic valve in good position, no perivalvular leak and moderate mitral regurgitation -Patient had some arrhythmia overnight. Review of telemetry showed some missed beats. patient remains asymptomatic. EP consult requested to evaluate for any high grade block -Continue to hold carvedilol -H/H stable. continue to monitor and transfuse for hg <7 -Continue aspirin 81mg indefinitely??and Plavix 75mg daily for 3 months -Resume home dose diuretics when creatinine at or close to baseline ?? #CAD #Hypertension -Cath in 2018 showed moderate CAD- medical management -Denies CP -Stable BP -Continue as above ?? #Hyperlipidemia -Continue Lipitor 80mg daily ? Patient seen and discussed with Dr. Sims. We will set up outpatient follow up at the [facility] office. ?? Naye Miller NP [facility] Problem List/Past Medical History Ongoing Asthma Cardiac catheterization Diabetes mellitus Hyperlipidemia Hypertension Severe obesity Procedure/Surgical History No qualifying data available. Hospital Medications Medications (40) Active SCHEDULED: (25) Amlodipine 10 mg Tablet (amLODIPine 10 mg oral tablet) ??10 mg, By Mouth, Daily Aspirin 81 mg EC Tablet (aspirin 81 mg oral delayed release tablet) ??81 mg, By Mouth, Daily at bedtime Atorvastatin 80 mg Tablet (atorvastatin 80 mg oral tablet) ??80 mg, By Mouth, Daily at bedtime Breo Ellipta 200 mcg / 25 mcg Inhaler (Breo Ellipta 200 mcg-25 mcg Inhaler) ??1 puffs, Inhalation, Daily Brimonidine 0.2% Ophthalmic Solution (brimonidine 0.2% ophthalmic solution) ??0.2 % 1 drops, Eyes, Both, 2 times a day Calcium Acetate 667 mg Tablet (calcium acetate 667 mg oral tablet) ??667 mg 1 tablet, By Mouth, 2 times a day Carvedilol 25 mg Tablet (carvedilol 25 mg oral tablet) ??25 mg, By Mouth, 2 times a day CeFAZolin 2 Gm Inj (ceFAZolin Inj) ??2 Gm, IV Push, Once Clopidogrel 75 mg Tablet (Clopidogrel Tablet) ??75 mg, By Mouth, Daily Ferrous Sulfate 325 mg EC Tablet (ferrous sulfate 325 mg oral enteric coated tablet) ??325 mg, By Mouth, Every other day Fluticasone Propionate 50mcg/inh Nasal [place] (fluticasone 50 mcg/inh nasal spray) ??50 mcg 1 sprays, Nares, Both, 2 times a day Folic Acid 1 mg Tablet (folic acid 1 mg oral tablet) ??1 mg, By Mouth, Daily Gabapentin 300 mg Capsule (gabapentin 300 mg oral capsule) ??300 mg, By Mouth, Daily at bedtime Guaifenesin 200mg/10mL Syrup UD (GuaiFENEsin Liquid) ??100 mg 5 mL, By Mouth, 3 times a day Heparin 5000 units/mL Inj (1 mL) (Heparin Inj) ??5,000 units 1 mL, Subcutaneous Injection, 3 times a day hydrALAZINE 25 mg Tablet (hydrALAZINE 25 mg oral tablet) ??25 mg, By Mouth, 2 times a day Insulin Glargine 100 units/mL Inj (Insulin Glargine Inj) ??10 units 0.1 mL, Subcutaneous Injection,Daily Insulin Lispro 100 units/mL Inj (3mL) (Insulin LISPRO Sliding Scale) ??2-10 units, Subcutaneous Injection, 3 times a day before meals Latanoprost 0.005% Ophthalmic Solution (latanoprost 0.005% ophthalmic solution) ??1 drops, Eyes, Both, Daily at bedtime Montelukast 10 mg Tablet (montelukast 10 mg oral tablet) ??10 mg, By Mouth, Daily at bedtime NaCl 0.9% Flush 3ml (NaCL 0.9% Flush) ??3 mL, IV Push, Every 8 hours Pantoprazole 40 mg EC Tablet (pantoprazole 40 mg oral delayed release tablet) ??40 mg, By Mouth, Daily Simethicone 80 mg Chewable Tablet (simethicone 80 mg oral tablet, chewable) ??80 mg, Chew, 3 times a day before meals Torsemide 20 mg tablet (torsemide 20 mg oral tablet) ??40 mg 2 tablet, By Mouth, 2 times a day Vitamin B-12 ??1000 mcg Tablet (Vitamin B-12 1000 mcg oral tablet) ??1,000 mcg, By Mouth, Daily CONTINUOUS: (0) PRN: (15) Acetaminophen 325 mg Tablet (Acetaminophen Tablet) ??650 mg, By Mouth, Every 8 hours Albuterol 0.083% Inhalation Solution (Albuterol 0.083% [...] ??3 mL, IV Push, Every 8 hours NaCl 0.9% Flush 3ml (Flush NaCl 0.9%) ??3 mL, IV Push, Every 8 hours Ondansetron 2mg/mL Inj (2mL Vial) (Ondansetron Inj) ??4 mg, IV Push, Every 6 hours Polyethylene Glycol 17 Gm Powder (MiraLax Powder) ??17 Gm 1 pack/packet, By Mouth, Daily Senna 8.6 mg / Docusate 50 mg tablet (Docusate/Senna Tablet) ??1 tablet, By Mouth, 2 times a day Simethicone 80 mg Chewable Tablet (Simethicone Tablet) ??80 mg, Chew, 3 times a day Patient Education Titles Heart Failure: Warning Signs of a Flare-Up?? Heart Failure: Making Changes to Your Diet?? Taking Medicine to Control Heart Failure?? Discharge Instructions for Heart Failure?? Surgery Post TAVR Transfemoral Discharge Instructions?? Depression: Tips to Help Yourself?? Depression?? Follow-Up Appointments Added Follow Up ?Time Frame ?Comments [facility] Cardiac Rehab?1 month?[phone] Amir Koko?06/24/2023 10:00 ECHO?06/17/2023 14:00 Amir Koko?05/06/2023 15:00 Shelby Golden MD Patient Instructions Please follow up with cardiology and other appointments as listed Please take all medications as prescribed Follow up with your PCP within 1 week of discharge to check repeat labs and ensure you are continuing to do well Lab Results Cardiology Labs WBC: 10.4 k/mm3 (04/29/23) RBC:??3.1 m/mm3??Low (04/29/23) Hgb:??7.2 Gm/dL??Low (04/29/23) Hct:??23.8 %??Low (04/29/23) MCV:??76.8 femtoliters??Low (04/29/23) MCH:??23.2 pg??Low (04/29/23) MCHC:??30.3 g/dL??Low (04/29/23) Platelet Count: 272 k/mm3 (04/29/23) RDW-SD:??53.9 femtoliters??High (04/29/23) Nucleated RBC (Automated): 0 #/100 WBC'S (04/29/23) Abs. Neut: 6.6 k/mm3 (04/29/23) Abs. Lymph: 1.9 k/mm3 (04/29/23) Abs. [place]:??1.1 k/mm3??High (04/29/23) Abs. Eo:??0.7 k/mm3??High (04/29/23) Abs. Baso: 0.1 k/mm3 (04/29/23) Neut %: 63.7 % (04/29/23) [place] %: 10.5 % (04/29/23) Eos %:??6.3 %??High (04/29/23) Baso %: 0.5 % (04/29/23) Imm Gran: 0.4 % (04/29/23) Abs. Imm Gran: 0 k/mm3 (04/29/23) INR: 1 (04/27/23) Protime (PT): 10.5 seconds (04/27/23) APTT: 26.9 seconds (10/11/22) Sodium: 137 mmol/L (04/29/23) Potassium: 3.9 mmol/L (04/29/23) Chloride:??97 mmol/L??Low (04/29/23) Bicarbonate Level:??30 mmol/L??High (04/29/23) Glucose Level:??148 mg/dL??High (04/28/23) Hemoglobin A1C (Monitoring):??6.3 %??High (04/23/23) BUN:??40 mg/dL??High (04/29/23) Creatinine-Blood:??1.9 mg/dL??High (04/29/23) Calcium: 8.9 mg/dL (04/28/23) Protein, Total: 6.9 Gm/dL (04/04/23) Albumin: 3.6 Gm/dL (04/04/23) Alkaline Phosphatase:??170 units/L??High (04/04/23) AST (SGOT): 16 units/L (04/04/23) ALT (SGPT): 17 units/L (04/04/23) Bilirubin, Total: 0.8 mg/dL (04/04/23) Troponin T Quant: <0.01 (07/31/22) Nt-Probnp:??7301 pg/mL??High (04/18/23) Cholesterol: 126 mg/dL (10/11/22) Triglycerides: 69 mg/dL [...] dedicated HRCT of the chest. ? WSN: [id number] ? Ordering Physician: Tera Sutherland ?? Signed [...] dedicated HRCT of the chest. ? WSN: [id number] ? Ordering Physician: Tera Sutherland ?? Signed By: Andie Jaimes MD ECG ECG 12-Lead ?? 01:42:09 Ventricular Rate: 52 BPM Atrial Rate: 52 BPM P-R Interval: 142 ms QRS Duration: 156 ms Q-T Interval: 500 ms QTC Calculation(Bazett): 465 ms P [place]: 48 degrees R [place]: 25 degrees T [place]: 159 degrees Sinus bradycardia Left bundle branch block Abnormal ECG When compared with ECG of 28-APR-2023 11:33, T wave inversion more evident in Lateral leads Confirmed by JOE STILL ([id number]) on 04/29/2023 1:25:22 PM ?? [place]: JOE STILL ?? Signed By: Joe Still MD ?? ECG 12-Lead ?? 01:42:09 Please click on pdf link to open report ?? Signed By: Joe Still MD Echo Echocardiogram - Complete ?? 09:21:26 Summary The left ventricular size is normal. The left ventricular wall thickness is mildly increased. There is mild concentric left ventricular hypertrophy. The LV systolic function is normal . The left ventricular ejection fraction is 65-70 %. There are no definite regional wall motion abnormalities. Grade II, moderate diastolic dysfunction with pseudonormal LV filling pattern and increased LA pressure. ?? The left atrium is severely dilated. ?? There is a transcatheter aortic valve implantation (LINDSEY Evolut FX #26) in the aortic position. The aortic valve is is poorly visualized. There is no paravalvular leak. There is no central aortic insufficiency. ?? There is moderate mitral annular calcification. The mitral valve chordal apparatus is moderately thickened. There is moderate mitral regurgitation. The mitral regurgitation jet is anteriorly, eccentrically directed. There is no significant mitral stenosis. ?? The right ventricle is normal in size. Right ventricular systolic function appears preserved. ?? Comparison Comparison is made to the study of April 27, 2023. There is no definite interval change. Eccentric mitral regurgitation present but under appreciated prior studies in 2022 (but not 2021). ?? Signature ?? Signed By: Aaron Lehman MD VL Studies VL Carotid Duplex Scan Bilat [...] Cardiac Cath Procedure Cardiac Cath Procedure ?? 07:57:00 Conclusions ?? Interventional Recommendations PREPROCEDURE DIAGNOSES: 1. Severe symptomatic aortic stenosis 2. Diastolic CHF NYHA 4 3. Pulmonary congestion 4. HTN 5. CAD / PAD 6. CKD 3b 7. Obesity JOSE 8. T2DM 9. LBBB ?? PROCEDURES: 1. Transcatheter aortic valve replacement using [right] common femoral arterial access and 26 mm bioprosthetic Evolut FX valve 2. Aortic root angiography 3. Perclose closure of right common femoral arterial access sites 4. Temporary pacing during the procedure 5. Trans-thoracic echo immediately after saran deployment 6. Predilation with 18mm Zmed Balloon ?? ANESTHESIA: Conscious sedation ?? CO-SURGEONS: 1. Tera Sutherland MD 2. Jaime Maldonado MD ?? RECOMMENDATIONS: 1. Follow in care unit for the next 3-4 hours. 2. Transfer to telemetry unit or higher level of care later today if stable, based on rhythm recovery. 3. Aspirin 81 mg daily. 4. Plavix 300mg bolus now, then 75mg daily for 3 months. 5. Transthoracic echocardiogram in the morning. 6. Worsening chronic anemia, tranfuse PRN. 7. 30 day loop monitor at discharge. 8. Resume diuretics and GDMT based on renal functions. 9. Fup [facility]. ?? Signatures ?? Signed By: Tera Sutherland MD * Levi VORA, Franci M: PERFORM Event Display: Progress Note Hospital Authored Date: Attending PA/TEAM DRIVER Attestation:??I have seen and evaluated this patient in conjunction with the TEAM DRIVER/PA.??I have discussed the case and its management with the PA/TEAM DRIVER as documented in the PA/TEAM DRIVER note. ??The patient is asymptomatic from the cardiovascular point. She developed LBBB post TAVR. Tele last night showed intermittent episodes of heart block with occasional??dropped QRS complexes. Labs showed drop in Hgb to 7.2 and increase in creatinine to 1.9. Call EP consult. Continue to monitor H & H,BUN/Cr and follow up EP recommendations. Currently on Torsemide 40 mg PO BID. * Jonna Trejo RN: PERFORM, SIGN, VERIFY Event Display: Progress Note Hospital Authored Date: [id number] Patient: KHLOE MARTINEZ Age: 78 years Sex: Female : 1945 Associated Diagnoses: None Author: Jonna Trejo RN Findings Problem Related to Alteration in Cardiac Function (new) : Alteration in Cardiac Function/new 04/28/2023 23:00 EDT Alteration in Cardiac Status Related to Cardiac Surgery, Dysrhythmia, Heart failure Goals & Outcomes, Cardiac Status Pt will resume/maintain adequate cardiac output, Pt will resume/maintain adequate hemodynamic status, Pt will resume/maintain adequate respiratory function, Pt will resume/maintain intact neuro function Cardiac Interventions Implemented Assess/monitor cardiac status, Assess/monitor neuro status, Assess/monitor respiratory status BH Goals/Interventions, Cardiac Yes Cardiac, Problem Start 04/23/2023 20:10 Reviewed Plan with, Cardiac Status Patient Patient Progression, Cardiac Status Patient progressing according to plan . Narrative/Incidental Around 2340, pt had 2 episodes of dropping a QRS, then converting to junctional rhythm with rate of50s, pt asymptomatic and sleeping, vital signs stable, paged covering provider JANNY Marino made aware, verbal orders for morning carvedilol to be held. Discharge Information Cardiac Rehab Discharge : Cardiac Rehab 04/28/2023 15:36 EDT Patient attending Phase II Yes Where will pt be attending [address] [address] [phone] * Joe Miranda RN: PERFORM, SIGN, VERIFY Event Display: Progress Note Hospital Authored Date: [id number] Patient: KHLOE MARTINEZ Age: 78 years Sex: Female : 1945 Associated Diagnoses: None Author: Joe Miranda RN Findings Nursing Data Cardiac Data. : Cardiac Data. 04/28/2023 13:25 EDT Cardiovascular Symptoms None Nail Bed Color, Fingers [place] Nail Bed Color, Toes [place] Skin Temperature Upper Extremities Warm Skin Temperature Lower Extremities Warm Heart Rhythm Regular Pacemaker No Cardiac Rhythm Sinus bradycardia Capillary Refill < 3 seconds Radial Pulse, Left Normal Radial Pulse, Right Normal Dorsalis Pedis Pulse, Left Normal Dorsalis Pedis Pulse, Right Normal personnel monitor Yes Cardiovascular WNL except . Vital Signs : VITAL SIGNS SECTION 04/28/2023 16:42 EDT Temperature 99.8 DegF Temperature Route Oral Pulse Rate 65 bpm Respiratory Rate 18 br/min Systolic Blood Pressure 131 mm Hg Diastolic Blood Pressure 52 mm Hg L Blood pressure sites Arm, right Mean Arterial Pressure 78 mm Hg Pulse Pressure 79 mm Hg Oxygen Saturation 92 % L Mode of Delivery (Oxygen) Room air . Narrative/Incidental A&Ox4, calm, cooperative, pleasant. VSS on 2 L NC. Weaned to RA. Sats maintained >90%. IV lasix 80 mg adminsitered. ECHO and EKG completed. No c/o pain/discomfort. FS coverage provided as ordered. Groin site dressings C/D/I. See flowsheets and provider notes for more information. . Discharge Information Cardiac Rehab Discharge : Cardiac Rehab 04/28/2023 15:36 EDT Patient attending Phase II Yes Where will pt be attending II [address] [address] [phone] Consult note * Sebastian VORA, Hood: PERFORM Event Display: Consultation Note Authored Date: Patient: ??KHLOE MARTINEZ ? Age:??78 Years?Sex:??Female?:??1945?? Patient Hx Cardiology Shared Clinical Summary Primary Border Machine Operator: Dr. Sexton History of Present Illness/Interval History 77 year old female with PMH of HTN, Dyslipidemia, DM, COPD, anemia, recurrent UTI, CKD, Aortic stenosis s/p TAVR. Notably patient developed LBBB after the procedure. QRS duration before the procedurewas normal. Notably patient received 25 mg Coreg at 11:17 AM yesterday. ?? Patient denies chest pain, denies shortness of breath, denies lightheadedness, denies syncope, denies dizziness. Her telemetry is showing Mobitz 1 second degree AV block and junctional rhythm. However no evidenceof high degree AV block or symptomatic bradycardia currently. ?? Review of Systems All 12 review of systems were negative except mentioned in HPI Physical Exam Vitals & Measurements T:??97.7?F?? HR:??59??(Peripheral)?? RR:??18?? BP:??125/60?? SpO2:??98%?? HT:??145??cm?? WT:??87.1??kg?? BMI:??41.38?? Weight lb/oz: 192 lb 0 oz ?General not in acute distress ?HEENT: PERRLA ?Neck: No JVD, No thyromegaly ?Lungs: clear to auscultation bilaterally ?Cardiovascular:??bradycardic, systolic murmur over left sternal border ?Abdomen: soft, nontender, positive bowel sounds ?Extremities: no edema ?Skin: No rash ?Neuro: grossly normal Assessment/Plan 77 Yo with complex medical history with new onset left bundle after TAVR. Her telemetry is showing Mobitz 1 second degree AV block and junctional rhythm in the setting of Coreg 25 mg at 11:17 am on 04/28/2023. However no evidence of high degree AV block or symptomatic bradycardia currently. ?? New onset left bundle block Mobitz 1 second degree AV block Intermittent junctional rhtyhm S/p TAVR CAD Diastolic heart failure Anemia ARLEY on CKD ?? Hold AV richelle blocking agents Although there is an increased risk of complete heart block in view of LBBB after TAVR, no clear ofevidence of high degree AV block currently. Will need 30 day event monitor on discharge. Continue to monitor telemetery while inpatient. Monitor H/H to keep above 7 Continue GDMT for CAD ?? Thank you for the consult. ?? Allergies Motrin??(High BP) Percocet 7.5/325??(hallucinations) Home Medications Amlodipine: 10 mg = 1 tablet, By Mouth, Daily Aspirin: 81 mg = 1 tablet, By Mouth, Daily at bedtime Atorvastatin: 40 mg = 1 tablet, By Mouth, Daily at bedtime Brimonidine Ophthalmic: 1 drops, Eyes, Both, 2 times a day Clopidogrel: 75 mg, By Mouth, Daily Cyanocobalamin: 1,000 mcg = 1 tablet, By Mouth, Daily Dexamethasone / Tobramycin Ophthalmic: PLACE 1 DROP IN EACH EYE FOUR TIMES DAILY empagliflozin: 10 mg = 1 tablet, By Mouth, Daily in AM empagliflozin: 10 mg = 1 tablet, By Mouth, Daily in AM empagliflozin: TAKE 1 TABLET BY MOUTH EVERY MORNING Ergocalciferol: 50,000 International_Units = 1 capsule, By Mouth, Every week Esomeprazole: 40 mg = 1 capsule, By Mouth, Daily Ferrous Sulfate: 325 mg, By Mouth, Every other day, [place] luigi capsula cada otro jessica. Ferrous Sulfate: MONICA 1 TABLETA POR LA BOCA CADA OTRO JESSICA fluticasone/umeclidinium/vilanterol: 1 puffs, Inhalation, Daily, at the same time every day fluticasone/umeclidinium/vilanterol: 1 puffs, Inhalation, Daily, at the same time every day Folic Acid: 1 mg = 1 tablet, By Mouth, Daily Gabapentin: 300 mg = 1 capsule, By Mouth, Daily at bedtime hydrALAZINE: 25 mg = 1 tablet, By Mouth, 2 times a day Insulin Aspart: 3 units, Subcutaneous Injection, 3 times a day before meals, INJECT 5-10 UNITS SUBCUTANEOUSLY THREE TIMES DAILY DIRECTED Insulin Aspart Insulin Glargine: 34 units, Subcutaneous Injection, Daily in AM Latanoprost Ophthalmic: 1 drops, Eyes, Both, Daily in PM Latanoprost Ophthalmic: INSTILL 1 DROP IN EACH EYE AT BEDTIME linagliptin: 5 mg = 1 tablet, By Mouth, Daily Miscellaneous Rx (TRUPLUS LANC MIS 33G) Miscellaneous Rx (ULTIGUARD ?MIS [id number]) Montelukast: 10 mg = 1 tablet, By Mouth, Daily before dinner Montelukast: TAKE 1 TABLET BY MOUTH EVERY EVENING PredniSONE: TAKE 2 TABLETS BY MOUTH DAILY torsemide: 40 mg = 2 tablet, By Mouth, 2 times a day Hospital Medications Medications (40) Active SCHEDULED: (25) Amlodipine 10 mg Tablet (amLODIPine 10 mg oral tablet) ??10 mg, By Mouth, Daily Aspirin 81 mg EC Tablet (aspirin 81 mg oral delayed release tablet) ??81 mg, By Mouth, Daily at bedtime Atorvastatin 80 mg Tablet (atorvastatin 80 mg oral tablet) ??80 mg, By Mouth, Daily at bedtime Breo Ellipta 200 mcg / 25 mcg Inhaler (Breo Ellipta 200 mcg-25 mcg Inhaler) ??1 puffs, Inhalation, Daily Brimonidine 0.2% Ophthalmic Solution (brimonidine 0.2% ophthalmic solution) ??0.2 % 1 drops, Eyes, Both, 2 times a day Calcium Acetate 667 mg Tablet (calcium acetate 667 mg oral tablet) ??667 mg 1 tablet, By Mouth, 2 times a day Carvedilol 25 mg Tablet (carvedilol 25 mg oral tablet) ??25 mg, By Mouth, 2 times a day CeFAZolin 2 Gm Inj (ceFAZolin Inj) ??2 Gm, IV Push, Once Clopidogrel 75 mg Tablet (Clopidogrel Tablet) ??75 mg, By Mouth, Daily Ferrous Sulfate 325 mg EC Tablet (ferrous sulfate 325 mg oral enteric coated tablet) ??325 mg, By Mouth, Every other day Fluticasone Propionate 50mcg/inh Nasal [place] (fluticasone 50 mcg/inh nasal spray) ??50 mcg 1 sprays, Nares, Both, 2 times a day Folic Acid 1 mg Tablet (folic acid 1 mg oral tablet) ??1 mg, By Mouth, Daily Gabapentin 300 mg Capsule (gabapentin 300 mg oral capsule) ??300 mg, By Mouth, Daily at bedtime Guaifenesin 200mg/10mL Syrup UD (GuaiFENEsin Liquid) ??100 mg 5 mL, By Mouth, 3 times a day Heparin 5000 units/mL Inj (1 mL) (Heparin Inj) ??5,000 units 1 mL, Subcutaneous Injection, 3 times a day hydrALAZINE 25 mg Tablet (hydrALAZINE 25 mg oral tablet) ??25 mg, By Mouth, 2 times a day Insulin Glargine 100 units/mL Inj (Insulin Glargine Inj) ??10 units 0.1 mL, Subcutaneous Injection,Daily Insulin Lispro 100 units/mL Inj (3mL) (Insulin LISPRO Sliding Scale) ??2-10 units, Subcutaneous Injection, 3 times a day before meals Latanoprost 0.005% Ophthalmic Solution (latanoprost 0.005% ophthalmic solution) ??1 drops, Eyes, Both, Daily at bedtime Montelukast 10 mg Tablet (montelukast 10 mg oral tablet) ??10 mg, By Mouth, Daily at bedtime NaCl 0.9% Flush 3ml (NaCL 0.9% Flush) ??3 mL, IV Push, Every 8 hours Pantoprazole 40 mg EC Tablet (pantoprazole 40 mg oral delayed release tablet) ??40 mg, By Mouth, Daily Simethicone 80 mg Chewable Tablet (simethicone 80 mg oral tablet, chewable) ??80 mg, Chew, 3 times a day before meals Torsemide 20 mg tablet (torsemide 20 mg oral tablet) ??40 mg 2 tablet, By Mouth, 2 times a day Vitamin B-12 ??1000 mcg Tablet (Vitamin B-12 1000 mcg oral tablet) ??1,000 mcg, By Mouth, Daily CONTINUOUS: (0) PRN: (15) Acetaminophen 325 mg Tablet (Acetaminophen Tablet) ??650 mg, By Mouth, Every 8 hours Albuterol 0.083% Inhalation Solution (Albuterol 0.083% [...] ??3 mL, IV Push, Every 8 hours NaCl 0.9% Flush 3ml (Flush NaCl 0.9%) ??3 mL, IV Push, Every 8 hours Ondansetron 2mg/mL Inj (2mL Vial) (Ondansetron Inj) ??4 mg, IV Push, Every 6 hours Polyethylene Glycol 17 Gm Powder (MiraLax Powder) ??17 Gm 1 pack/packet, By Mouth, Daily Senna 8.6 mg / Docusate 50 mg tablet (Docusate/Senna Tablet) ??1 tablet, By Mouth, 2 times a day Simethicone 80 mg Chewable Tablet (Simethicone Tablet) ??80 mg, Chew, 3 times a day Lab Results Cardiology Labs WBC: 10.4 k/mm3 (04/29/23) RBC:??3.1 m/mm3??Low (04/29/23) Hgb:??7.2 Gm/dL??Low (04/29/23) Hct:??23.8 %??Low (04/29/23) MCV:??76.8 femtoliters??Low (04/29/23) MCH:??23.2 pg??Low (04/29/23) MCHC:??30.3 g/dL??Low (04/29/23) Platelet Count: 272 k/mm3 (04/29/23) RDW-SD:??53.9 femtoliters??High (04/29/23) Nucleated RBC (Automated): 0 #/100 WBC'S (04/29/23) Abs. Neut: 6.6 k/mm3 (04/29/23) Abs. Lymph: 1.9 k/mm3 (04/29/23) Abs. [place]:??1.1 k/mm3??High (04/29/23) Abs. Eo:??0.7 k/mm3??High (04/29/23) Abs. Baso: 0.1 k/mm3 (04/29/23) Neut %: 63.7 % (04/29/23) [place] %: 10.5 % (04/29/23) Eos %:??6.3 %??High (04/29/23) Baso %: 0.5 % (04/29/23) Imm Gran: 0.4 % (04/29/23) Abs. Imm Gran: 0 k/mm3 (04/29/23) INR: 1 (04/27/23) Protime (PT): 10.5 seconds (04/27/23) APTT: 26.9 seconds (10/11/22) Sodium: 137 mmol/L (04/29/23) Potassium: 3.9 mmol/L (04/29/23) Chloride:??97 mmol/L??Low (04/29/23) Bicarbonate Level:??30 mmol/L??High (04/29/23) Glucose Level:??148 mg/dL??High (04/28/23) Hemoglobin A1C (Monitoring):??6.3 %??High (04/23/23) BUN:??40 mg/dL??High (04/29/23) Creatinine-Blood:??1.9 mg/dL??High (04/29/23) Calcium: 8.9 mg/dL (04/28/23) Protein, Total: 6.9 Gm/dL (04/04/23) Albumin: 3.6 Gm/dL (04/04/23) Alkaline Phosphatase:??170 units/L??High (04/04/23) AST (SGOT): 16 units/L (04/04/23) ALT (SGPT): 17 units/L (04/04/23) Bilirubin, Total: 0.8 mg/dL (04/04/23) Troponin T Quant: <0.01 (07/31/22) Nt-Probnp:??7301 pg/mL??High (04/18/23) Cholesterol: 126 mg/dL (10/11/22) Triglycerides: 69 mg/dL [...] dedicated HRCT of the chest. ? WSN: [id number] ? Ordering Physician: Tera Sutherland ?? Signed [...] dedicated HRCT of the chest. ? WSN: [id number] ? Ordering Physician: Tera Sutherland ?? Signed By: Andie Jaimes MD ECG ECG 12-Lead ?? 01:42:09 Ventricular Rate: 52 BPM Atrial Rate: 52 BPM P-R Interval: 142 ms QRS Duration: 156 ms Q-T Interval: 500 ms QTC Calculation(Bazett): 465 ms P [place]: 48 degrees R [place]: 25 degrees T [place]: 159 degrees Sinus bradycardia Left bundle branch block Abnormal ECG When compared with ECG of 28-APR-2023 11:33, T wave inversion more evident in Lateral leads Confirmed by JOE STILL ([id number]) on 04/29/2023 1:25:22 PM ?? [place]: JOE STILL ?? Signed By: Joe Still MD ?? ECG 12-Lead ?? 01:42:09 Please click on pdf link to open report ?? Signed By: Joe Still MD Echo Echocardiogram - Complete ?? 09:21:26 Summary The left ventricular size is normal. The left ventricular wall thickness is mildly increased. There is mild concentric left ventricular hypertrophy. The LV systolic function is normal . The left ventricular ejection fraction is 65-70 %. There are no definite regional wall motion abnormalities. Grade II, moderate diastolic dysfunction with pseudonormal LV filling pattern and increased LA pressure. ?? The left atrium is severely dilated. ?? There is a transcatheter aortic valve implantation (LINDSEY Evolut FX #26) in the aortic position. The aortic valve is is poorly visualized. There is no paravalvular leak. There is no central aortic insufficiency. ?? There is moderate mitral annular calcification. The mitral valve chordal apparatus is moderately thickened. There is moderate mitral regurgitation. The mitral regurgitation jet is anteriorly, eccentrically directed. There is no significant mitral stenosis. ?? The right ventricle is normal in size. Right ventricular systolic function appears preserved. ?? Comparison Comparison is made to the study of April 27, 2023. There is no definite interval change. Eccentric mitral regurgitation present but under appreciated prior studies in 2022 (but not 2021). ?? Signature ?? Signed By: Fallon VORA, Aaron Paiz VL Studies VL Carotid Duplex Scan Bilat [...] Cardiac Cath Procedure Cardiac Cath Procedure ?? 07:57:00 Conclusions ?? Interventional Recommendations PREPROCEDURE DIAGNOSES: 1. Severe symptomatic aortic stenosis 2. Diastolic CHF NYHA 4 3. Pulmonary congestion 4. HTN 5. CAD / PAD 6. CKD 3b 7. Obesity JOSE 8. T2DM 9. LBBB ?? PROCEDURES: 1. Transcatheter aortic valve replacement using [right] common femoral arterial access and 26 mm bioprosthetic Evolut FX valve 2. Aortic root angiography 3. Perclose closure of right common femoral arterial access sites 4. Temporary pacing during the procedure 5. Trans-thoracic echo immediately after saran deployment 6. Predilation with 18mm Zmed Balloon ?? ANESTHESIA: Conscious sedation ?? CO-SURGEONS: 1. Tera Sutherland MD 2. Jaime Maldonado MD ?? RECOMMENDATIONS: 1. Follow in care unit for the next 3-4 hours. 2. Transfer to telemetry unit or higher level of care later today if stable, based on rhythm recovery. 3. Aspirin 81 mg daily. 4. Plavix 300mg bolus now, then 75mg daily for 3 months. 5. Transthoracic echocardiogram in the morning. 6. Worsening chronic anemia, tranfuse PRN. 7. 30 day loop monitor at discharge. 8. Resume diuretics and GDMT based on renal functions. 9. Fup [place] office. ?? Signatures ?? Signed By: Koko VORA, Tera Problem List/Past Medical History Ongoing Asthma Cardiac catheterization Diabetes mellitus Hyperlipidemia Hypertension Severe obesity Procedure/Surgical History No qualifying data available. Patient Education Titles Heart Failure: Warning Signs of a Flare-Up?? Heart Failure: Making Changes to Your Diet?? Taking Medicine to Control Heart Failure?? Discharge Instructions for Heart Failure?? Surgery Post TAVR Transfemoral Discharge Instructions?? Depression: Tips to Help Yourself?? Depression?? Follow-Up Appointments Added Follow Up ?Time Frame ?Comments [facility] Cardiac Rehab?1 month?[id number] Tera Sutherland?06/24/2023 10:00 ECHO?06/17/2023 14:00 Tera Sutherland?05/06/2023 15:00 Shelby Golden MD Patient Instructions Please follow up with cardiology and other appointments as listed Please take all medications as prescribed Follow up with your PCP within 1 week of discharge to check repeat labs and ensure you are continuing to do well Social History Tobacco Use: Never (less than 100 in lifetime). Family History No family history recorded. * Geoff VORA, [facility]: PERFORM Event Display: Consultation Note Authored Date: [id number] Patient: ??KHLOE MARTINEZ ? Age:??78 Years?Sex:??Female?:??1945?? Reason for Consultation severe History of Present Illness The patient is a 78-year-old female with PMH CAD, PAD (bilateral SFA), carotid artery stenosis, HfpEF, CKD stage III with creatinine 1.8, COPD, DM2, HTn, HLD, and JOSE who presented with heart failurein the setting of severe aortic stenosis. I first met her 3 years ago and offered open cabg/avr, which she declined and was lost to follow up. She has had significant weight gain and now has poor mobility, deconditioned significantly. Recent echo showed severe ; tricuspid with evidence of significant calcification with a mean gradient of 58??and a valve area of 0.5cm?by continuity equation. Normal EF. Mild AI. The patient underwent cardiac catheterization 08/03/22 that revealed stable CAD w ith 75% LAD, 70% LCx, 75% RCA. She denies any PND, orthopnea, cough, chest pain, pressure, palpitations, or dizziness/lightheadedness, bleeding, dark stools or abdominal complaints. She does not haveexertional lightheadedness or syncope. She has now been hospitalized several times for overt congestive heart failure.?? Review of Systems Constitutional:??No weight loss, fever, [...] polyuria or polydipsia. Psychiatric:??No depression or anxiety. Physical Exam Vitals & Measurements T:??98.1?F?? TMIN:??97.7?F?? TMAX:??98.1?F?? HR:??56??(Peripheral)?? RR:??18?? BP:??134/59?? SpO2:??94%?? CONST: Appears stated age, no acute distress, alert and oriented X 3 EYES: Anicteric, nl conjunctivae, EOM intact ENT: Nl oropharynx NECK: No evidence of JVD or HJR. Carotid impulses and upstroke normal bilaterally, no carotid bruits?? CV: Regular rhythm, S1/S2. There is a mid to late systolic crescendo decrescendo murmur noted in aortic area radiating towards carotids. No rubs or gallop noted. Femoral pulses nl and symmetric, no femoral bruits. No aortic pulsation or aortic bruits. RESP: Normal respiratory effort, clear to auscultation GI: Soft, non-tender and non-distended, bowels sounds normoactive, no abdominal bruits EXT: no lower extremity edema, no clubbing, no cyanosis SKIN: No rash, skin warm and dry.?? NEURO: Alert and oriented x 3, CN 2-12 grossly intact?? Assessment/Plan The patient is a 78-year-old female with severe aortic stenosis who presented with??heart failure??and now is being evaluated for aortic valve replacement. Preoperative evaluation includes cardiac catheterization, CT TAVR??and echocardiogram, which I reviewed in detail. I discussed at length the two types of aortic valve replacement, namely surgical and transcatheter, with the patient and her??family??in the hospital today. Her STS risk for mortality for an isolated aortic valve replacement is calculated to 11.3% and 17.11% for combined avr/cabg, which places her in the high risk category. She is no longer an open heart surgery candidate given age, comorbidities, functional status, given the high risk nature and complexity. We discussed in detail the risk of paravalvular leak, need for dual anti platelet therapy, risk of requiring pacemaker implantation, and the usp durability concerns with TAVR; the patient expressed understanding of these risks and wishes to pursue the transcatheter approach instead of surgical aortic valve replacement. She is amenable to emergency open heart surgery in the case of a complication during TAVR. None the less, I believe the patient is a suitable TAVR candidate. We will further discuss her case at an upcoming multidisciplinary TAVR team meeting??and plan for intervention shortly thereafter.? Thank you for this referral. ? Donavan Tellez MD [facility] Cardiac Surgery?? [address], [address] [place] [address] Office: [phone] Problem List/Past Medical History Ongoing Asthma Cardiac catheterization Diabetes mellitus Hyperlipidemia Hypertension Severe obesity Medications Inpatient Albuterol 0.083% inhalation laci, 2.5 mg= 3 mL, BAND Nebulizer, Every 4 hours, PRN amLODIPine 10 mg oral tablet, 10 mg, By Mouth, Daily aspirin 81 mg oral delayed release tablet, 81 mg, By Mouth, Daily at bedtime atorvastatin 80 mg oral tablet, 80 mg, By Mouth, Daily at bedtime Breo Ellipta 200 mcg-25 mcg Inhaler, 1 puffs, Inhalation, Daily brimonidine 0.2% ophthalmic solution, 0.2 %= 1 drops, Eyes, Both, 2 times a day calcium acetate 667 mg oral tablet, 667 mg= 1 tablet, By Mouth, 2 times a day carvedilol 25 mg oral tablet, 25 mg, By Mouth, 2 times a day Ceftriaxone Inj, 1 Gm, IVPB, Every 24 hours Dextrose 50% Inj Syringe (25Gm), 12.5 Gm, IV Push Slowly, Every 20 minutes, PRN Dextrose 50% Inj Syringe (25Gm), 25 Gm, IV Push Slowly, Every 15 minutes, PRN Docusate/Senna Tablet, 1 tablet, By Mouth, 2 times a day, PRN ferrous sulfate 325 mg oral enteric coated tablet, 325 mg, By Mouth, Every other day fluticasone 50 mcg/inh nasal spray, 50 mcg= 1 sprays, Nares, Both, 2 times a day folic acid 1 mg oral tablet, 1 mg, By Mouth, Daily gabapentin 300 mg oral capsule, 300 mg, By Mouth, Daily at bedtime Glucagon Inj, 1 mg, Intramuscular, Once, PRN Glucose Gel, 15 Gm, By Mouth, Every 20 minutes, PRN Glucose Gel, 30 Gm, By Mouth, Every 20 minutes, PRN Heparin Inj, 5000 units= 1 mL, Subcutaneous Injection, 3 times a day hydrALAZINE 25 mg oral tablet, 25 mg, By Mouth, 2 times a day Insulin Glargine Inj, 32 units= 0.32 mL, Subcutaneous Injection, Daily at bedtime Insulin LISPRO Sliding Scale, 2-10 units, Subcutaneous Injection, 3 times a day before meals Lasix Inj, 40 mg= 4 mL, IV Push Slowly, 2 times a day latanoprost 0.005% ophthalmic solution, 1 drops, Eyes, Both, Daily at bedtime Melatonin Tablet, 3 mg, By Mouth, Daily at bedtime, PRN MiraLax Powder, 17 Gm= 1 pack/packet, By Mouth, Daily, PRN montelukast 10 mg oral tablet, 10 mg, By Mouth, Daily at bedtime NaCL 0.9% Flush, 3 mL, IV Push, Every 8 hours NaCL 0.9% Flush, 3 mL, IV Push, Every 8 hours, PRN pantoprazole 40 mg oral delayed release tablet, 40 mg, By Mouth, Daily predniSONE 20 mg oral tablet, 40 mg, By Mouth, Daily Robitussin DM Liquid, 10 mL, By Mouth, Every 4 hours, PRN Simethicone Tablet, 80 mg, Chew, 3 times a day, PRN Tobramycin 0.3%/ dexamethasone 0.1 % ophthalmic solution, 1 drop, Eyes, Both, 4 times a day Vitamin B-12 1000 mcg oral tablet, 1000 mcg, By Mouth, Daily Home amLODIPine 10 mg oral tablet, 10 mg= 1 tablet, By Mouth, Daily amLODIPine 10 mg oral tablet, 10 mg= 1 tablet, By Mouth, Daily aspirin 81 mg oral delayed release tablet, 81 mg= 1 tablet, By Mouth, Daily at bedtime Aspirin Low Dose 81 mg oral delayed release tablet, 81 mg= 1 tablet, By Mouth, Daily atorvastatin 40 mg oral tablet, 40 mg= 1 tablet, By Mouth, Daily at bedtime brimonidine 0.2% ophthalmic solution, 1 drops, Eyes, Both, 2 times a day carvedilol 25 mg oral tablet, 25 mg= 1 tablet, By Mouth, 2 times a day carvedilol 25 mg oral tablet, 25 mg= 1 tablet, By Mouth, 2 times a day dexamethasone-tobramycin 0.1%-0.3% ophthalmic suspension empagliflozin 10 mg oral tablet, 10 mg= 1 tablet, By Mouth, Daily in AM esomeprazole 40 mg oral enteric coated capsule, 40 mg= 1 capsule, By Mouth, Daily ferrous sulfate 325 mg oral enteric coated tablet ferrous sulfate 325 mg oral enteric coated tablet, 325 mg, By Mouth, Every other day folic acid 1 mg oral tablet, 1 mg= 1 tablet, By Mouth, Daily gabapentin 300 mg oral capsule, 300 mg= 1 capsule, By Mouth, Daily at bedtime hydrALAZINE 25 mg oral tablet, 25 mg= 1 tablet, By Mouth, 2 times a day hydrALAZINE 25 mg oral tablet, 25 mg= 1 tablet, By Mouth, 2 times a day Jardiance 10 mg oral tablet, 10 mg= 1 tablet, By Mouth, Daily in AM Jardiance 10 mg oral tablet latanoprost 0.005% ophthalmic solution latanoprost 0.005% ophthalmic solution, 1 drops, Eyes, Both, Daily in PM montelukast 10 mg oral tablet montelukast 10 mg oral tablet, 10 mg= 1 tablet, By Mouth, Daily before dinner NovoLOG FlexPen 100 units/mL injectable solution NovoLOG FlexPen 100 units/mL injectable solution, 3 units, Subcutaneous Injection, 3 times a day before meals predniSONE 20 mg oral tablet torsemide 20 mg oral tablet, 20 mg= 1 tablet, By Mouth, Daily torsemide 20 mg oral tablet, 20 mg= 1 tablet, By Mouth, 2 times a day Toujeo SoloStar 300 units/mL subcutaneous solution, 34 units, Subcutaneous Injection, Daily in AM Tradjenta 5 mg oral tablet, 5 mg= 1 tablet, By Mouth, Daily Trelegy Ellipta 200 mcg-62.5 mcg-25 mcg/inh inhalation powder, 1 puffs, Inhalation, Daily Trelegy Ellipta inhalation powder, 1 puffs, Inhalation, Daily TRUPLUS LANC MIS 33G ULTIGUARD MIS [id number] Vitamin B-12 1000 mcg oral tablet, 1000 mcg= 1 tablet, By Mouth, Daily Vitamin D 10312 iu oral capsule, 71655 International_Units= 1 capsule, By Mouth, Every week Allergies Motrin??(High BP) Percocet 7.5/325??(hallucinations) Social History Tobacco Use: Never (less than 100 in lifetime). Immunizations Vaccine Date Status influenza virus vaccine, inactivated 07/20/2022 Recorded influenza virus vaccine, inactivated 09/19/2018 Recorded influenza virus vaccine, inactivated 07/12/2017 Recorded hepatitis B adult vaccine 04/08/2017 Recorded influenza virus vaccine, inactivated 09/16/2016 Recorded pneumococcal 23-valent vaccine 06/03/2016 Recorded hepatitis B adult vaccine 06/03/2016 Recorded Zoster Vaccine Live 07/15/2015 Recorded pneumococcal 13-valent vaccine 07/15/2015 Recorded influenza virus vaccine, inactivated 07/15/2015 Recorded influenza virus vaccine, inactivated 07/12/2014 Recorded hepatitis B adult vaccine 04/03/2014 Recorded tetanus/diphtheria/pertussis, acel(Tdap) 11/27/2013 Recorded influenza virus vaccine, inactivated 05/25/2011 Recorded pneumococcal 23-valent vaccine 06/30/2000 Recorded tetanus-diphtheria toxoids (Td) 06/08/1997 Recorded * Monica VORA, [facility]: PERFORM Event Display: Consultation Note Authored Date: [id number] Patient: ??KHLOE MARTINEZ ? Age:??78 Years?Sex:??Female?:??1945?? Indication for Consult Severe ??and CHF History of Present Illness/Interval History 78-year-old lady with obesity, severe/critical symptomatic aortic stenosis, recurrent admission with heart failure with preserved EF, PAD, carotid stenosis, CAD, CKD stage III, COPD, diabetes, hypertension, dyslipidemia, sleep apnea, not ambulating who has had admission to [facility] with decompensated congestive heart failure in the setting of severe aortic stenosis and is transferred to [facility] for treatment. ?? Patient was seen with the help of a ground water pump installer.?? She has been evaluated by TAVR team at [facility], it seems that she has lost follow-up.?? She has had TAVR work-up including CT scan and cardiac catheterization which showed multivessel CAD. ?? She denies chest pain.?? She is not walking at home.?? Reports shortness of breath improved.?? She has difficulty swallowing.?? She is receiving Lasix 40 mg IV twice daily.?? Telemetry shows sinus bradycardia. ?? Labs are significant for hemoglobin of 8.3, platelet count of 401, leukocytosis with white cell count of 17, creatinine 1.8 BUN 51 high-sensitivity troponin of 50 and NT proBNP of 7300 which is higher than previous.?? EKG shows sinus rhythm with heart rate of [address] depressions in inferolateral leads.?? No chest x-ray available here Review of Systems All systems reviewed and negative except as in HPI Physical Exam Vitals & Measurements T:??97.4?F?? HR:??62??(Peripheral)?? RR:??18?? BP:??123/52?? SpO2:??96%?? HT:??145??cm?? WT:??89.4??kg?? BMI:??42.52?? Weight lb/oz: 197 lb 1 oz HEENT:?? pale conjunctivae.?No jaundice.? Mouth: moist mucous membranes.? Neck: carotid pulses symmetrical.? Cardiac:??Regular rate and rhythm,??4/6 late peaking systolic murmur??radiating to neck, S2 reduced Chest: Crackles bilateral lung field Abdomen: soft, nontender, bowel sounds present.? Peripheral exam:??Trace pedal edema Neurologic exam is nonfocal.? Assessment/Plan 78-year-old lady with obesity, severe/critical symptomatic aortic stenosis, recurrent admission with heart failure with preserved EF, PAD, carotid stenosis, CAD, CKD stage III, COPD, diabetes, hypertension, dyslipidemia, sleep apnea, not ambulating who has had admission to [facility] with decompensated congestive heart failure in the setting of severe aortic stenosis and is transferred to [facility] for treatment. ?? Severe/critical aortic stenosis Recurrent??admissions with??CHF CAD CKD Anemia ?last echocardiogram available shows normal LV systolic function and severe aortic stenosis with valve area of 0.5 cm and mean gradient of 58 which is suggestive of critical aortic stenosis.?? She has had recurrent admissions to hospital.?? She has been seen by cardiac surgery and TAVR team.?? Recommend to continue diuresis with IV Lasix.?? Obtain?? echocardiogram to reassess LV systolic function.?? I discussed with her and seems that now she is interested to consider TAVR.?? I will inform theTAVR team that have seen her before. ?? Thank you for allowing us to participate in her care Allergies Motrin??(High BP) Percocet 7.5/325??(hallucinations) Home Medications Amlodipine: 10 mg = 1 tablet, By Mouth, Daily Amlodipine: 10 mg = 1 tablet, By Mouth, Daily Aspirin: 81 mg = 1 tablet, By Mouth, Daily at bedtime Aspirin: 81 mg = 1 tablet, By Mouth, Daily Atorvastatin: 40 mg = 1 tablet, By Mouth, Daily at bedtime Brimonidine Ophthalmic: 1 drops, Eyes, Both, 2 times a day Carvedilol: 25 mg = 1 tablet, By Mouth, 2 times a day Carvedilol: 25 mg = 1 tablet, By Mouth, 2 times a day Cyanocobalamin: 1,000 mcg = 1 tablet, By Mouth, Daily Dexamethasone / Tobramycin Ophthalmic: PLACE 1 DROP IN EACH EYE FOUR TIMES DAILY empagliflozin: 10 mg = 1 tablet, By Mouth, Daily in AM empagliflozin: 10 mg = 1 tablet, By Mouth, Daily in AM empagliflozin: TAKE 1 TABLET BY MOUTH EVERY MORNING Ergocalciferol: 50,000 International_Units = 1 capsule, By Mouth, Every week Esomeprazole: 40 mg = 1 capsule, By Mouth, Daily Ferrous Sulfate: 325 mg, By Mouth, Every other day, [place] luigi capsula cada otro jessica. Ferrous Sulfate: MONICA 1 TABLETA POR LA BOCA CADA OTRO JESSICA fluticasone/umeclidinium/vilanterol: 1 puffs, Inhalation, Daily, at the same time every day fluticasone/umeclidinium/vilanterol: 1 puffs, Inhalation, Daily, at the same time every day Folic Acid: 1 mg = 1 tablet, By Mouth, Daily Gabapentin: 300 mg = 1 capsule, By Mouth, Daily at bedtime hydrALAZINE: 25 mg = 1 tablet, By Mouth, 2 times a day hydrALAZINE: 25 mg = 1 tablet, By Mouth, 2 times a day Insulin Aspart: 3 units, Subcutaneous Injection, 3 times a day before meals, INJECT 5-10 UNITS SUBCUTANEOUSLY THREE TIMES DAILY DIRECTED Insulin Aspart Insulin Glargine: 34 units, Subcutaneous Injection, Daily in AM Latanoprost Ophthalmic: 1 drops, Eyes, Both, Daily in PM Latanoprost Ophthalmic: INSTILL 1 DROP IN EACH EYE AT BEDTIME linagliptin: 5 mg = 1 tablet, By Mouth, Daily Miscellaneous Rx (TRUPLUS LANC MIS 33G) Miscellaneous Rx (ULTIGUARD ?MIS [id number]) Montelukast: 10 mg = 1 tablet, By Mouth, Daily before dinner Montelukast: TAKE 1 TABLET BY MOUTH EVERY EVENING PredniSONE: TAKE 2 TABLETS BY MOUTH DAILY torsemide: 20 mg = 1 tablet, By Mouth, 2 times a day torsemide: 20 mg = 1 tablet, By Mouth, Daily Hospital Medications Medications (35) Active SCHEDULED: (23) Amlodipine 10 mg Tablet (amLODIPine 10 mg oral tablet) ??10 mg, By Mouth, Daily Aspirin 81 mg EC Tablet (aspirin 81 mg oral delayed release tablet) ??81 mg, By Mouth, Daily at bedtime Atorvastatin 80 mg Tablet (atorvastatin 80 mg oral tablet) ??80 mg, By Mouth, Daily at bedtime Breo Ellipta 200 mcg / 25 mcg Inhaler (Breo Ellipta 200 mcg-25 mcg Inhaler) ??1 puffs, Inhalation, Daily Brimonidine 0.2% Ophthalmic Solution (brimonidine 0.2% ophthalmic solution) ??0.2 % 1 drops, Eyes, Both, 2 times a day Calcium Acetate 667 mg Tablet (calcium acetate 667 mg oral tablet) ??667 mg 1 tablet, By Mouth, 2 times a day Carvedilol 25 mg Tablet (carvedilol 25 mg oral tablet) ??25 mg, By Mouth, 2 times a day Ceftriaxone 1 Gm Inj (Ceftriaxone Inj) ??1 Gm, IVPB, Every 24 hours Ferrous Sulfate 325 mg EC Tablet (ferrous sulfate 325 mg oral enteric coated tablet) ??325 mg, By Mouth, Every other day Fluticasone Propionate 50mcg/inh Nasal [place] (fluticasone 50 mcg/inh nasal spray) ??50 mcg 1 sprays, Nares, Both, 2 times a day Folic Acid 1 mg Tablet (folic acid 1 mg oral tablet) ??1 mg, By Mouth, Daily Furosemide Inj (Lasix ??Inj) ??40 mg 4 mL, IV Push Slowly, 2 times a day Gabapentin 300 mg Capsule (gabapentin 300 mg oral capsule) ??300 mg, By Mouth, Daily at bedtime Heparin 5000 units/mL Inj (1 mL) (Heparin Inj) ??5,000 units 1 mL, Subcutaneous Injection, 3 times a day hydrALAZINE 25 mg Tablet (hydrALAZINE 25 mg oral tablet) ??25 mg, By Mouth, 2 times a day Insulin Glargine 100 units/mL Inj (Insulin Glargine Inj) ??32 units 0.32 mL, Subcutaneous Injection, Daily at bedtime Insulin Lispro 100 units/mL Inj (3mL) (Insulin LISPRO Sliding Scale) ??2-10 units, Subcutaneous Injection, 3 times a day before meals Latanoprost 0.005% Ophthalmic Solution (latanoprost 0.005% ophthalmic solution) ??1 drops, Eyes, Both, Daily at bedtime Montelukast 10 mg Tablet (montelukast 10 mg oral tablet) ??10 mg, By Mouth, Daily at bedtime NaCl 0.9% Flush 3ml (NaCL 0.9% Flush) ??3 mL, IV Push, Every 8 hours Pantoprazole 40 mg EC Tablet (pantoprazole 40 mg oral delayed release tablet) ??40 mg, By Mouth, Daily PredniSONE 20 mg Tablet (predniSONE 20 mg oral tablet) ??40 mg, By Mouth, Daily Vitamin B-12 ??1000 mcg Tablet (Vitamin B-12 1000 mcg oral tablet) ??1,000 mcg, By Mouth, Daily CONTINUOUS: (0) PRN: (12) Albuterol 0.083% Inhalation Solution (Albuterol 0.083% inhalation [...] times a day Lab Results Cardiology Labs WBC:??17.3 k/mm3??High (04/18/23) RBC:??3.59 m/mm3??Low (04/18/23) Hgb:??8.3 Gm/dL??Low (04/18/23) Hct:??27.5 %??Low (04/18/23) MCV:??76.6 femtoliters??Low (04/18/23) MCH:??23.1 pg??Low (04/18/23) MCHC:??30.2 g/dL??Low (04/18/23) Platelet Count: 401 k/mm3 (04/18/23) RDW-SD:??53.1 femtoliters??High (04/18/23) Nucleated RBC (Automated): 0.1 #/100 WBC'S (04/18/23) Abs. Neut:??14 k/mm3??High (04/04/23) Abs. Lymph: 1.5 k/mm3 (04/04/23) Abs. [place]: 0.8 k/mm3 (04/04/23) Abs. Eo: 0.1 k/mm3 (04/04/23) Abs. Baso: 0.1 k/mm3 (04/04/23) Neut %:??84.6 %??High (04/04/23) [place] %: 4.9 % (04/04/23) Eos %: 0.5 % (04/04/23) Baso %: 0.3 % (04/04/23) Imm Gran: 0.5 % (04/04/23) Abs. Imm Gran: 0.1 k/mm3 (04/04/23) INR: 1.1 (10/11/22) Protime (PT):??11.8 seconds??High (10/11/22) APTT: 26.9 seconds (10/11/22) Sodium: 140 mmol/L (04/18/23) Potassium: 3.8 mmol/L (04/18/23) Chloride: 101 mmol/L (04/18/23) Bicarbonate Level: 26 mmol/L (04/18/23) Glucose Level:??145 mg/dL??High (04/18/23) Hemoglobin A1C (Monitoring):??5.9 %??High (10/11/22) BUN:??51 mg/dL??High (04/18/23) Creatinine-Blood:??1.8 mg/dL??High (04/18/23) Calcium: 9.3 mg/dL (04/18/23) Protein, Total: 6.9 Gm/dL (04/04/23) Albumin: 3.6 Gm/dL (04/04/23) Alkaline Phosphatase:??170 units/L??High (04/04/23) AST (SGOT): 16 units/L (04/04/23) ALT (SGPT): 17 units/L (04/04/23) Bilirubin, Total: 0.8 mg/dL (04/04/23) Troponin T Quant: <0.01 (07/31/22) Nt-Probnp:??7301 pg/mL??High (04/18/23) Cholesterol: 126 mg/dL (10/11/22) Triglycerides: 69 mg/dL [...] dedicated HRCT of the chest. ? WSN: [id number] ? Ordering Physician: Mohani, Amir ?? Signed By: Andie Jaimes MD CT [...] dedicated HRCT of the chest. ? WSN: [id number] ? Ordering Physician: Tera Sutherland ?? Signed By: Andie Jaimes MD ECG ECG 12-Lead ?? 16:41:23 Please click on pdf link to open report ?? Signed By: Sebastian Estevez DO ?? ECG 12-Lead ?? 16:41:23 Ventricular Rate: 61 BPM Atrial Rate: 61 BPM P-R Interval: 116 ms QRS Duration: 90 ms Q-T Interval: 422 ms QTC Calculation(Bazett): 424 ms P [place]: 24 degrees R [place]: 24 degrees T [place]: 189 degrees Normal sinus rhythm ST and T wave abnormality, consider inferolateral ischemia Abnormal ECG When compared with ECG of 03-APR-2023 15:00, T wave inversion now evident in Inferior leads T wave amplitude has decreased in Anterior leads Confirmed by SEBASTIAN ESTEVEZ MD ([id number]) on 04/18/2023 8:17:49 AM ?? [place]: SEBASTIAN ESTEVEZ MD ?? Signed By: Sebastian Estevez DO Echo Echocardiogram - Complete ?? 11:31:39 Summary [...] comparison. Per pt, she has Echocardiogram at [facility]. ?? Signature ?? Signed By: Deep VORA, [...] right heart catheterization. ?? Ultrasound-guided right common SOLAR THERMAL INSTALLER and right SOLAR THERMAL INSTALLER access with 5 and 6 Turkmen sheath respectively. Right radial access was aborted [...] an outpatient. Follow-up with Dr. James in [place] office. ?? ACC Diagnostic Recommendations: Medical therapy and/or counseling. ?? Complications:None. ?? Signatures ?? Signed By: Tera Sutherland MD Problem List/Past Medical History Ongoing Asthma Cardiac catheterization Diabetes mellitus Hyperlipidemia Hypertension Severe obesity Procedure/Surgical History No qualifying data available. Patient Education Titles Depression: Tips to Help Yourself?? Depression?? Social History Tobacco Use: Never (less than 100 in lifetime). Family History No family history recorded. Cardiology Outpatient Note * [place] Maldonado RN: PERFORM, SIGN, VERIFY Event Display: Cardiology Note Office Authored Date: [id number] Patient: KHLOE MARTINEZ Age: 78 years Sex: Female : 1945 Associated Diagnoses: None Author: [place] Maldonado RN [place] Cardiomyopathy Questionnaire (KCCQ-12) The following questions refer to your heart failure and how it may affect your life. Please read and complete the following questions. There is no right or wrong answers. Please tamara the answer that best applies to you. 1. Heart failure affects different people in different ways. Some feel shortness of breath while others feel fatigue. Please indicate how much you are limited by heart failure (shortness of breath orfatigue) in your ability to do the following activities over the past 2 weeks. a. Showering/bathing: Extremely Limited (_) 1 Quite a bit limited (x) 2 Moderately Limited (_) 3 Slightly Limited (_) 4 Not at all Limited (_) 5 Limited for other reasons or did not do the activity (_) 6 b. Walking 1 block on level ground: Extremely Limited (_) 1 Quite a bit limited (_) 2 Moderately Limited (x) 3 Slightly Limited (_) 4 Not at all Limited (_) 5 Limited for other reasons or did not do the activity (_) 6 c. Hurrying or jogging (as if to catch a bus): Extremely Limited (_) 1 Quite a bit limited (x) 2 Moderately Limited (_) 3 Slightly Limited (_) 4 Not at all Limited (_) 5 Limited for other reasons or did not do the activity (_) 6 2. Over the past 2 weeks, how many times did you have swelling in your feet, ankles or legs when you woke up in the morning? Every Morning (_) 1 3 or more times per week but not every day (_) 2 1-2 times per week (x) 3 Less than once a week (_) 4 Never over the past 2 weeks (_) 5 3. Over the past 2 weeks, on average, how many times has fatigue limited your ability to do what you wanted? All of the time (_) 1 Several Times per day (x) 2 At least once a day (_) 3 3 or more times per week but not every day (_) 4 1-2 times per week (_) 5 Less than once a week (_) 6 Never over the past 2 weeks (_) 7 4. Over the past 2 weeks, on average, how many times has shortness of breath limited your ability to do what you wanted? All of the time (_) 1 Several Times per day (_) 2 At least once a day (x) 3 3 or more times per week but not every day (_) 4 1-2 times per week (_) 5 Less than once a week (_) 6 Never over the past 2 weeks (_) 7 5. Over the past 2 weeks, on average, how many times have you been forced to sleep sitting up in a chair or with at least 3 pillows to prop you up because of shortness of breath? Every night (_) 1 3 or more times per week but not every day (_) 2 1-2 times per week (x) 3 Less than once a week (_) 4 Never over the past 2 weeks (_) 5 6. Over the past 2 weeks, how much has your heart failure limited your enjoyment of life? It has extremely limited my enjoyment of life (_) 1 It has limited my enjoyment of life quite a bit (x) 2 It has moderately limited my enjoyment of life (_) 3 It has slightly limited my enjoyment of life (_) 4 It has not limited my enjoyment of life at all (_) 5 7. If you had to spend the rest of your life with your heart failure the way it is right now, how would you feel about this? Not at all satisfied (_) 1 Mostly dissatisfied (_) 2 Somewhat satisfied (x) 3 Mostly satisfied (_) 4 Completely satisfied (_) 5 8. How much does your heart failure affect your lifestyle? Please indicate how your heart failure may have limited your participation in the following activities over the past 2 weeks. a. Hobbies, recreational activities: Severely Limited (_) 1 Limited quite a bit () 2 Moderately Limited (x) 3 Slightly Limited (_) 4 Did not limit at all (_) 5 Does not apply or did not do for other reasons (_) 6 b. 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 Visiting family or friends out of your home: Severely Limited (_) 1 Limited quite a bit (_) 2 Moderately Limited (_) 3 Slightly Limited (x) 4 Did not limit at all (_) 5 Does not apply or did not do for other reasons (_) 6 Total Score: 34 Patient Care team information Care Team Personnel Name: Maryann Zavala RN Position: [facility] RN Member Role: Primary Care Nurse Name: Randy Arriola RN Position: [facility] RN Member Role: Primary Care Nurse Name: [...] Reference Physician Member Role: PCP Address: Address: [address] [place] [address]- Name: Joe Miranda RN Position: S RN Member Role: Primary Care Nurse Name: Alycia Aguero RN Position: S RN Member Role: Primary Care Nurse Name: Tracy Ramon Position: S RN Member Role: Primary Care Nurse Care Team Related Persons Name: VENKATA NASSAR Address: home [address] [address] Name: IWONA TABARES Address: home [address] [place] [address]
--- OUTSIDE RECORDS SUMMARY | 2024-04-11 12:09 | XMS_ITS | Continuity of Care Document ---
Author Organization [facility] ter Address [address] [place] [id number]- Care Team Providers [employer] Sales Representative Name Role Phone Turner Golden MD, Hetal Primary Care Physician [phone] Encounter [facility] Date(s): 04/07/23 - 05/07/[address] [address]- Attending Physician: Not on Staff, Attending MD Admitting Physician: Not on Staff, Admitting MD Referring Physician: Not on Staff, Referring [...] Maintenance, 04/29/23 9:26:00 EDT,Route to Pharmacy Electronically, [facility], Partial fill upon patient [...] 0 Refills, Maintenance, 10/15/22 12:54:00 EST, Tablet, [facility], Partial fill upon patient [...] 325 mg, By Mouth, Every other day, [place] luigi capsula cada otro sukhi., # 30 tablet, Refills 0, Tot. Refills 0, Maintenance, 04/07/23 11:34:00 EDT, Route to Pharmacy Electronically, [facility], Partial fill upon patient request if [...] Start Date: 04/17/23 Status: Ordered ULTIGUARD MIS [id number] ULTIGUARD MIS [id number], 0 Refills, Maintenance, 04/17/23 22:01:00 EDT Start Date: 04/17/23 Status: Ordered Vitamin B-12 1000 mcg oral tablet 1,000 mcg, 1, tablet, By Mouth, Daily, # 30 tablet, Refills 0, Maintenance, 07/30/22 18:26:00 EDT, Partial fill upon patient request if the prescription is for a schedule II opioid drug. Start Date: 07/30/22 Status: Ordered Vitamin D 35940 iu oral capsule 50,000 International_Units, 1, capsule, [...] Team Personnel Name: Maryann Zavala RN Position: [facility] RN Member Role: Primary Care Nurse Name: Randy Arriola RN Position: [facility] RN Member Role: Primary Care Nurse Name: Dorothea Glaser Position: S RN Member Role: Primary Care Nurse Name: Marielle Tolbert RN Position: [facility] RN Member Role: Primary Care Nurse Name: Ryanne Coleman RN Position: [facility] RN Member Role: Primary Care Nurse Name: Mima Winters RN Position: S RN Member Role: Primary Care Nurse Name: Karen Villanueva RN Position: S RN Member Role: Primary Care Nurse Name: Shelby Spence MD Position: Reference Physician Member Role: PCP Address: Address: [address] [facility] [address] [place] [id number] Name: Joe Miranda RN Position: S RN Member Role: Primary Care Nurse Name: Alycia Aguero RN Position: S RN Member Role: Primary Care Nurse Name: Tracy Ramon Position: S RN Member Role: Primary Care Nurse Care Team Related Persons Name: VENKATA NASSAR Address: home [address] [address] Name: IWONA TABARES Address: home [address] [place] [address]
--- OUTSIDE RECORDS SUMMARY | 2024-04-11 12:09 | XMS_ITS | Continuity of Care Document ---
Author Organization [facility] Raul conor Address [address] [place] [address]- Care Team Providers Care Library Circulation Clerk Name Role Phone Preston VORA, Daniel Garcia Primary Care Physi will Encounter [facility] Date(s): 10/21/22 - 11/20/22 [facility] [address] [place] [id number]- Allergies, Adverse Reactions, Alerts Substance Reaction Severity [...] 0 Refills, Maintenance, 10/15/22 12:54:00 EST, Tablet, [facility], Partial fill upon patient request [...] 10/15/22 13:13:00 EST, Route to Pharmacy Electronically, [facility], Partial fill upon patient request [...] 0 Refills, Maintenance, 10/15/22 12:54:00 EST, Tablet, [facility], Partial fill upon patient request [...] Start Date: 07/30/22 Status: Ordered Vitamin D 26013 iu oral capsule 50,000 International_Units, 1, capsule, [...] Care Team Personnel Name: Preston VORA, Daniel Garcai Position: [facility] Outreach Member Role: PCP Address: Address: [address] [place] [address]- Care Team Related Persons Name: VENKATA NASSAR Address: home [address] [address] Name: IWONA TABARES Address: home [address] [place] [address]
[2024-04-11 12:13] VITALS: BP 122/60; PULSE 87; TEMP 36.5; O2SAT 96
--- NOTE | 2024-04-11 12:13 | MHC.OFFWIV ---
Intake Vital Signs 04/11/24 12:13 Height 4 ft 9 in BP 122/60 Blood Pressure Location Rt brachial Position Sitting Pulse 87 Pulse Source Pulse Oximeter Temp 97.7 F Temp Source Oral Pulse Oximetry (%) 96 Oxygen Delivery Method Room Air Intake Visit Reasons: stomach ache, back pain, liquid bm Intake Note: pt is here for stomach ache, back pain, and liquid bowel movements Patient Tobacco Use Status: Former Tobacco user Allergies ibuprofen [From Motrin] Allergy (Intermediate, Verified 03/24/24 10:46) High Blood Pressure, Rash oxycodone [From Percocet] Allergy (Intermediate, Verified 03/24/24 10:46) Itching Do you need a note to return to daycare/school/sports/work: No HPI HPI Comments History of Present Illness Details Patient is a 78-year-old female complaining of 1 day of nausea with vomiting and soft stools with some stomach pain. She denies any fevers. She states she is able to eat a little bit does not really have an appetite. 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 Aortic stenosis CKD (chronic kidney disease) stage 3, GFR 30-59 ml/min Dyslipidemia Diabetic polyneuropathy associated with type 2 diabetes mellitus Diabetic nephropathy associated with type 2 diabetes mellitus Chronic kidney disease Hypertension Asthma Thalamic pain syndrome GERD (gastroesophageal reflux disease) Morbid obesity Surgical History H/O aortic valve replacement History of breast lump/mass excision History of tubal ligation History of cholecystectomy Family History Sister History of renal pelvis cancer Father Suicide Mother Lung disease Diabetes mellitus Social History Household Members: Family Housing: House Do you presently have visiting nurse or other home services: Yes ([employer]) Alcohol intake: never Comment: pt stays with pt. Patient Tobacco Use Status: Former Tobacco user Tobacco use type: Cigarette Years Smoked: 5 years e-Cigarette/Vaping Use: Never Used Second Hand Smoke Exposure: No service: No Current occupational status: unemployed and disabled Gender identity: Female Cognitive needs: Yes Hearing needs: No Vision needs: No Female Reproductive History Menstrual Age of Menarche: 10 Review of Systems Const All systems reviewed & are unremarkable except as noted in HPI and below Physical Exam Const General: cooperative, healthy appearing, comfortable, no acute distress and well developed Orientation/consciousness: patient oriented x3 Limitations: no limitations Resp Effort & Inspection: normal respiratory effort and able to speak in complete sentences Skin General skin exam: no rashes or lesions noted Neuro General: patient oriented x3 Assessment & Plan Assessment & Plan (1) Viral gastroenteritis: Code(s): A08.4 - Viral intestinal infection, unspecified Plan: Vital signs are stable, Likely viral GI bug, gave red flag signs and when to go to the ED. Plan see above Coding Level of Care Code Est Pt Level 3 (48608) Diagnoses Viral gastroenteritis A08.4
== END 2024-04-11 12:55 | disposition home or self-care (01) ==
PROVIDERS: PCP Internal Medicine; Visit Provider Physician Assistant
DX: A08.4 Viral intestinal infection, unspecified (principal)
CPT/HCPCS: 99213

== ENCOUNTER 2024-05-08 08:03 | Outpatient (REF) | payer OTHER, SELFPAY ==
[2024-05-08 08:50] LABS: MANUAL DIFF FLAG NO
[2024-05-08 08:59] LABS: Appearance Urine Clear; Color Urine Yellow; Glucose Urine UA 100 mg/dL (Negative); Leukocyte Esterase Urine Moderate (2+) (Negative); Nitrite Urine Negative (Negative); Specific Gravity - Urine 1.015 (1.005-1.025); UMIC TRIGGER UACC YES; Urine Blood Negative (Negative); Urine Ketones Negative (Negative); Urine Protein 300 (3+) mg/dL (Neg-Trace)
[2024-05-08 09:05] LABS: Bacteria Urine None Seen (None Seen); Hyaline Casts Urine 0-2 /LPF (0-2); RBC Urine 0-2 /HPF (0-2); WBC Urine 21-50 /HPF (0-5)
[2024-05-08 09:07] LABS: Appearance Urine Clear; Color Urine Yellow; Glucose Urine UA 100 mg/dL (Negative); Leukocyte Esterase Urine Moderate (2+) (Negative); Nitrite Urine Negative (Negative); Specific Gravity - Urine 1.015 (1.005-1.025); UMIC TRIGGER UA YES; Urine Blood Negative (Negative); Urine Ketones Negative (Negative); Urine Protein 300 (3+) mg/dL (Neg-Trace)
[2024-05-08 09:09] LABS: UACC Culture Trigger NO
[2024-05-08 09:09] LABS: Basophils Absolute Auto 0.1 X10*3/uL (0.0-0.2); Basophils Percent Auto 0.7 % (0-2); Eosinophils Absolute Auto 0.3 X10*3/uL (0.0-0.4); Eosinophils Percent Auto 2.8 % (0-4); Hematocrit 38.2 % (37.0-47.0); Hemoglobin 12.5 g/dl (12.0-16.0); Imm Gran Abs Auto 0.02 X10*3/uL (0.00-0.03); Imm Gran Pct Auto 0.2 % (0.0-0.4); Lymphocytes Absolute Auto 2.1 X10*3/uL (1.2-4.9); Lymphocytes Percent Auto 20.6 % (20-40); Mean Corpuscular HGB Conc 32.7 g/dl (31.0-35.0); Mean Corpuscular Hemoglobin 25.7 pg (27.0-33.0); Mean Corpuscular Volume 78.4 fL (80.0-98.0); Mean Platelet Volume 9.4 fL (9.4-12.3); Monocytes Absolute Auto 0.8 X10*3/uL (0.1-1.2); Monocytes Percent Auto 7.6 % (2-11); Neutrophils Absolute Auto 6.8 x10*3/uL (2.0-8.3); Neutrophils Percent Auto 68.1 % (45-73); Platelet Count 344 X10*3/uL (160-400); Red Blood Count 4.87 X10*6/uL (4.20-5.50); Red Cell Distribution Width 15.7 % (11.0-16.0)
[2024-05-08 09:15] LABS: Bacteria Urine None Seen (None Seen); RBC Urine 0-2 /HPF (0-2); WBC Urine 21-50 /HPF (0-5)
[2024-05-08 09:46] LABS: Albumin Level 3.5 g/dL (3.5-5.0); Anion Gap 9 (12-20); Blood Urea Nitrogen 25 mg/dL (9-16); Calcium 9.2 mg/dL (8.4-10.2); Carbon Dioxide 28 mmol/L (22-29); Chloride 109 mmol/L (96-108); Estimated Glomerular Filt Rate 37; Magnesium 2.2 mg/dL (1.6-2.6); Phosphorus 3.3 mg/dL (2.7-4.5); Potassium 4.4 mmol/L (3.3-5.1); Sodium 142 mmol/L (135-145)
[2024-05-08 10:02] LABS: Vitamin D 25-OH Total 30.8 ng/mL (>30)
[2024-05-08 10:10] LABS: Creatinine Urine 58.45 mg/dL; Microalbumin Urine > 2000.0 mg/L
[2024-05-08 10:27] LABS: Protein/Creatinine Ratio, Ur 6.09 (<0.2); Total Protein Urine Random 356 mg/dL (<12)
[2024-05-08 10:43] LABS: Parathyroid Hormone Intact 121.6 pg/mL (8.7-77.1)
== END 2024-05-08 08:04 | disposition home or self-care (01) ==
LOC: HO.LAB 08:03
PROVIDERS: Physician Assistant; Absent Provider Internal Medicine Nephrology; PCP Internal Medicine; Visit Provider Internal Medicine
DX: E11.22 Type 2 diabetes mellitus with diabetic chronic kidney disease (principal); N18.32 Chronic kidney disease, stage 3b; R80.1 Persistent proteinuria, unspecified
CPT/HCPCS: 36415; 80051; 81001; 82040; 82043; 82306; 82310; 82565; 82570; 83735; 83970; 84100; 84156; 84520; 85025; 87086

== ENCOUNTER 2024-05-16 14:17 | Outpatient (AMB) | payer OTHER, SELFPAY ==
--- NOTE | 2024-05-16 14:24 | A.OFFPC_ITS ---
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 Required: No Accompanied by: Daughter Allergies ibuprofen [From Motrin] Allergy (Intermediate, Verified 05/16/24 14:38) High Blood Pressure, Rash oxycodone [From Percocet] Allergy (Intermediate, Verified 05/16/24 14:38) Itching tirzepatide [From Mounjaro] Adverse Reaction (Severe, Verified 05/16/24 14:38) Diarrhea Medication List - Last Reconciled 05/16/24 by Shelby Golden MD amlodipine 10 mg PO DAILY aspirin 81 mg PO BEDTIME atorvastatin 80 mg PO BEDTIME 90 days blood pressure monitor As directed blood sugar diagnostic (FreeStyle Lite Strips) 3times a day blood-glucose meter (FreeStyle [place] Lite kit) As directed budesonide-formoterol 160-4.5 mcg/actuation (Symbicort) 2 puffs inhalation BID 30 days calcium acetate(phosphat bind) 667 mg PO BID 90 days cholecalciferol (vitamin D3) 25 mcg PO DAILY 90 days clotrimazole-betamethasone 1-0.05 % 1 appl topical BID 5 days disposable gloves As directed ferrous sulfate 325 mg PO .once a week 90 days fluticasone propionate 50 mcg/actuation 1 spray intranasal DAILY PRN folic acid 1 mg PO QAM 90 days FreeStyle Lancets (lancets) 3 times a day NS gabapentin 300 mg PO BEDTIME 90 days hydralazine 25 mg PO TID 90 days [incomtinemce liner pads As directed] insulin glargine U-300 conc (Toujeo SoloStar U-300 Insulin) 36 units subcut DAILY ipratropium-albuterol 0.5 mg-3 mg(2.5 mg base)/3 mL 3 mL inhalation RQ4H WHILE AWAKE lancets (TRUEplus Lancets) As directed test 4 times a day losartan 25 mg PO DAILY 90 days montelukast 10 mg PO QPM 90 days Novolog FlexPen U-100 Insulin (insulin aspart U-100) 5 - 10 units (0.05 - 0.1 mL) subcut TID NS Oxygen Home Use As directed pen needle, diabetic (BD Sia 2nd Gen Pen Needle) 5 times a day terconazole 0.8% 1 appful vaginal BEDTIME 3 days tobramycin-dexamethasone 0.3-0.1 % 1 drp ophthalmic (eye) QID torsemide 20 mg PO BID [wipes As directed] Tobacco use date assessed: 10/20/23 Dental Screening Dental Screen Date: 10/20/23 HPI HPI Comments History of Present Illness Details This is a 79-year-old female with diabetes mellitus type 2 on long-term current use of insulin, mild major depression, COPD, chronic systolic congestive heart failure and morbid obesity that comes today accompanied by daughter for her physical exam. Last A1c was elevated and she will see an can solderer soon. She has chronic kidney disease stage 3 and has hyperparathyroidism. DEXA scan done 2022 shows osteopenia. Mammogram done 2023 was normal. Colonoscopy done 2020 shows some tubular adenoma and next colonoscopy should be 2025. No chest pain or shortness on breath. She is morbidly obese with a BMI of 42.2 and was advised to do diet and exercise. Depression stable. Was evaluated by Cardiology which saw her euvolemic. 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 Aortic stenosis CKD (chronic kidney disease) stage 3, GFR 30-59 ml/min Dyslipidemia Diabetic polyneuropathy associated with type 2 diabetes mellitus Diabetic nephropathy associated with type 2 diabetes mellitus Chronic kidney disease Hypertension Asthma Thalamic pain syndrome GERD (gastroesophageal reflux disease) Morbid obesity Surgical History H/O aortic valve replacement History of breast lump/mass excision History of tubal ligation History of cholecystectomy Family History Sister History of renal pelvis cancer Father Suicide Mother Lung disease Diabetes mellitus Social History Household Members: Family Housing: House 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 Patient Tobacco Use Status: Former Tobacco user Tobacco use type: Cigarette Years Smoked: 5 years e-Cigarette/Vaping Use: Never Used Second Hand Smoke Exposure: No service: No Current occupational status: unemployed and disabled Gender identity: Female Cognitive needs: Yes Hearing needs: No Vision needs: No Female Reproductive History Menstrual Age of Menarche: 10 Questionnaire Thrive Questionnaire Date Thrive assessed: 10/20/23 JES-7 AMB Questionnaire JES-7 Date JES - 7 assessed: 10/20/23 Source: Developed by Drs. Farhad Murdock, Caron Elkins, El Esqueda and colleagues, with an educational susanne from [employer]. Review of Systems Const All systems reviewed & are unremarkable except as noted in HPI and below Card Denies chest pain at rest, Denies chest pain with activity, Denies edema, Denies irregular heart rhythm, Denies claudication, Denies dyspnea, Denies dyspnea on exertion, Denies orthopnea, Denies paroxysmal nocturnal dyspnea and Denies slow heart rate Resp Denies cough, Denies dyspnea and Denies dyspnea on exertion GI Denies abdominal pain, Denies change in bowel habits, Denies excessive flatus, Denies nausea and Denies vomiting Denies urinary incontinence, Denies urinary hesitancy and Denies urinary urgency Musc Reports back pain and Reports arthralgias Physical exam (Primary Care) Vital Signs: Last Vital Signs BP 136/60 05/16/24 14:26 BMI result Body Mass Index 42.2 BMI Assessment/Plan discussion: High BMI High, discussed plan: lifestyle, weight reduction, dietary and physical activity Tobacco/Smoking Status: Tobacco use Status Tobacco use date assessed 10/20/23 05/16/24 14:28 Patient Tobacco Use Status Former Tobacco user 05/16/24 14:28 Tobacco use type Cigarette 05/16/24 14:28 e-Cigarette/Vaping Use Never Used 05/16/24 14:28 Thrive Assessment: Date of Thrive Assessment Date Thrive assessed 10/20/23 05/16/24 14:28 Const Limitations: ambulation with cane HENMT Head: Yes normal to inspection, Yes normocephalic and Yes atraumatic Ears: external ears normal Eyes General: appearance normal, both eyes and all related structures Eyelids: Yes eyelids normal Conjunctivae: conjunctivae normal Neck Neck: Yes normal visual inspection and Yes supple Resp Effort & Inspection: normal respiratory effort Auscultation: clear to auscultation bilaterally Cardio Jugular venous distension: no JVD Rate: regular rate Rhythm: regular rhythm Heart sounds: S1 normal heart sound present and S2 normal heart sound present GI Inspection: Yes normal to inspection Palpation (GI): Soft to palpation and nontender Auscultation: normal bowel sounds Skin General skin exam: no rashes or lesions noted Neuro General: no focal motor deficits Extrem General: Yes full ROM Psych Appearance: grossly normal Assessment and Plan Assessment & Plan (1) Physical exam: Code(s): Z00.00 - Encounter for general adult medical examination without abnormal findings Plan: Repeat in a year. (2) Hyperparathyroidism: Code(s): E21.3 - Hyperparathyroidism, unspecified Plan: Labs ordered. Follow-up with nephrology and endocrinology. (3) CKD stage 3b, GFR 30-44 ml/min: Code(s): N18.32 - Chronic kidney disease, stage 3b Plan: Avoid NSAIDs. Follow-up with nephrology. (4) Mild major depression: Code(s): F32.0 - Major depressive disorder, single episode, mild Plan: In remission. (5) COPD (chronic obstructive pulmonary disease): Code(s): J44.9 - Chronic obstructive pulmonary disease, unspecified Plan: Continue long-acting inhaler. Use rescue inhaler as needed. Follow-up with pulmonology. (6) Congestive heart failure: Code(s): I50.9 - Heart failure, unspecified Qualifiers: Heart failure type: systolic Heart failure chronicity: chronic Qualified Code(s): I50.22 - Chronic systolic (congestive) heart failure Plan: Continue torsemide. The goal is to not gain 5 lb in a week. (7) Morbid obesity with BMI of 40.0-44.9, adult: Code(s): E66.01 - Morbid (severe) obesity due to excess calories; Z68.41 - Body mass index [BMI] 40.0-44.9, adult Plan: Start diet and exercise. BMI goal is less than 30. (8) Uncontrolled type 2 diabetes mellitus with chronic kidney disease, with long-term current use of insulin: Code(s): E11.22 - Type 2 diabetes mellitus with diabetic chronic kidney disease; E11.65 - Type 2 diabetes mellitus with hyperglycemia; Z79.4 - correction (current) use of insulin Plan: Continue insulin. A1c goal is equal or less than 7%. Do diabetic eye exam yearly. Follow-up with endocrinology. Orders: Orders Complete Blood Count Auto Diff Today D64.9 - Anemia, unspecified Vitamin B12 and Folate Today E53.8 - Deficiency of other specified B group vitamins Comprehensive [place]. Panel Fast Today N18.32 - Chronic kidney disease, stage 3b Calcium, Ionized Today E21.3 - Hyperparathyroidism, unspecified Calcium, Random Urine Today E21.3 - Hyperparathyroidism, unspecified Magnesium Today R25.2 - Cramp and spasm Lipid Panel Today E78.5 - Hyperlipidemia, unspecified Microalbumin, Random (w Creat) Today E11.9 - Type 2 diabetes mellitus without complications IRON PROFILE Today D64.9 - Anemia, unspecified Vitamin D 25-OH Total Today E55.9 - Vitamin D deficiency, unspecified NT-proBNP Today I50.9 - Heart failure, unspecified Phosphorus Today E21.3 - Hyperparathyroidism, unspecified Coding Level of Care Code Est Pt Prev Care >65y(72722) Diagnoses Physical exam Z00.00 Hyperparathyroidism E21.3 CKD stage 3b, GFR 30-44 ml/min N18.32 Mild major depression F32.0 COPD (chronic obstructive pulmonary disease) J44.9 Chronic systolic congestive heart failure I50.22 Heart failure type: systolic Heart failure chronicity: chronic Morbid obesity with BMI of 40.0-44.9, adult E66.01; Z68.41 Uncontrolled type 2 diabetes mellitus with chronic kidney disease, with long- term current use of insulin E11.22; E11.65; Z79.4 Time Spent (min) 40
[2024-05-16 14:26] VITALS: BP 136/60; BMI 42.2
== END 2024-05-16 14:58 | disposition home or self-care (01) ==
PROVIDERS: PCP Internal Medicine; Visit Provider Internal Medicine
DX: Z00.00 Encounter for general adult medical examination without abnormal findings (principal); E21.3 Hyperparathyroidism, unspecified; N18.32 Chronic kidney disease, stage 3b; F32.0 Major depressive disorder, single episode, mild; J44.9 Chronic obstructive pulmonary disease, unspecified; I50.22 Chronic systolic (congestive) heart failure; E66.01 Morbid (severe) obesity due to excess calories; Z68.41 Body mass index [BMI] 40.0-44.9, adult; E11.22 Type 2 diabetes mellitus with diabetic chronic kidney disease; E11.65 Type 2 diabetes mellitus with hyperglycemia; Z79.4 Long term (current) use of insulin
CPT/HCPCS: 99397

== ENCOUNTER 2024-05-19 09:33 | Outpatient (AMB) | payer OTHER, SELFPAY ==
--- NOTE | 2024-05-19 10:12 | MHC.OFFVIS ---
Vital Signs 05/19/24 10:13 Height 4 ft 9 in Weight 194 lb 10.691 oz BMI 42.1 BP 142/60 H Blood Pressure Location Lt brachial Position Sitting Pulse 71 Pulse Source Pulse Oximeter Intake Visit Reasons: T2DM Intake Note: Patient presents today for D2MT follow up visit. Last Diabetic Eye exam: 2022 Last Podiatry Visit: 03/2024 Random Glucose: 199 mg/dl HgA1c: 8.7% Industrial Property Appraiser Required: Yes Industrial Property Appraiser Language: Natural Sciences Department Chair Services: Industrial Property Appraiser Present Industrial Property Appraiser Name: Myrna Information Interpreted: non-clinical & clinical Accompanied by: REFERRAL AND INFORMATION AIDE Allergies ibuprofen [From Motrin] Allergy (Intermediate, Verified 05/19/24 10:26) High Blood Pressure, Rash oxycodone [From Percocet] Allergy (Intermediate, Verified 05/19/24 10:26) Itching tirzepatide [From Mounjaro] Adverse Reaction (Severe, Verified 05/19/24 10:26) Diarrhea Medication List - Last Reconciled 05/19/24 by Ariana Barksdale PA-C amlodipine 10 mg PO DAILY aspirin 81 mg PO BEDTIME atorvastatin 80 mg PO BEDTIME 90 days blood pressure monitor As directed blood sugar diagnostic (FreeStyle Lite Strips) 3times a day blood-glucose meter (FreeStyle [place] Lite kit) As directed budesonide-formoterol 160-4.5 mcg/actuation (Symbicort) 2 puffs inhalation BID 30 days calcium acetate(phosphat bind) 667 mg PO BID 90 days cholecalciferol (vitamin D3) 25 mcg PO DAILY 90 days clotrimazole-betamethasone 1-0.05 % 1 appl topical BID 5 days disposable gloves As directed ferrous sulfate 325 mg PO .once a week 90 days fluticasone propionate 50 mcg/actuation 1 spray intranasal DAILY PRN folic acid 1 mg PO QAM 90 days FreeStyle Lancets (lancets) 3 times a day NS gabapentin 300 mg PO BEDTIME 90 days hydralazine 25 mg PO TID 90 days [incomtinemce liner pads As directed] insulin glargine U-300 conc (Toujeo SoloStar U-300 Insulin) 36 units subcut DAILY ipratropium-albuterol 0.5 mg-3 mg(2.5 mg base)/3 mL 3 mL inhalation RQ4H WHILE AWAKE lancets (TRUEplus Lancets) As directed test 4 times a day losartan 25 mg PO DAILY 90 days montelukast 10 mg PO QPM 90 days Novolog FlexPen U-100 Insulin (insulin aspart U-100) 5 - 10 units (0.05 - 0.1 mL) subcut TID NS Oxygen Home Use As directed pen needle, diabetic (BD Sia 2nd Gen Pen Needle) 5 times a day terconazole 0.8% 1 appful vaginal BEDTIME 3 days tobramycin-dexamethasone 0.3-0.1 % 1 drp ophthalmic (eye) QID torsemide 20 mg PO BID [wipes As directed] HPI HPI T2DM: Details: Pt is a 79 y/o female who presents today for a dm follow up. She is accompanied today by her daughter who translates today. Appropriate paperwork signed filled. Endo: Initially diagnosed with T2DM in 1999. Was initially started on treatment with Metformin. She reports metformin was stopped due to an issue with her kidney. She also failed Trulicity due to GI distress. I discontinue Jardiance due to frequent UTIs and yeast infections. -She was started on mounjaro but caused diarrhea so she d/c this. Current regimen: Toujeo 36 units qHS and novolog 4 units. She does not actually use the sliding scale. Her A1c today is 8.7. It went up from 7.6 six months ago. She has continually declined a CGM because her has it in he gets frustrated at times. We had a lengthy discussion today for over 20 minutes discussing just the CGM and how it will help lower her A1c in allow us to better adjust her insulin dosages. She currently only checks her blood sugars 1 to 2 times a day at most. Treats lows with juice. Checks sugar after to ensure it is rising. Treats according to rule of 15's. Has her eyes checked yearly, last eye exam needs to make appt . Denies retinopathy. Has neuropathy. On gabapentin. Sees podiatry. Has nephropathy, on losartan . Is followed by nephrology Has HLD, on Atorvastatin 80 mg PO daily. Has CAD. Had diabetes education. CV: Bp today is 142/60and she is on amlodipine 10 mg, furosemide 20 mg b.i.d., losartan 25 mg. No chest pain, shortness of breath or palpitations. Cholesterol is managed with atorvastatin 80 mg. Nephro: Follows with Nephrology. She states that she knows to avoid NSAIDs. Last kidney function did appear to worsen. 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 Aortic stenosis CKD (chronic kidney disease) stage 3, GFR 30-59 ml/min Dyslipidemia Diabetic polyneuropathy associated with type 2 diabetes mellitus Diabetic nephropathy associated with type 2 diabetes mellitus Chronic kidney disease Hypertension Asthma Thalamic pain syndrome GERD (gastroesophageal reflux disease) Morbid obesity Surgical History H/O aortic valve replacement History of breast lump/mass excision History of tubal ligation History of cholecystectomy Family History Sister History of renal pelvis cancer Father Suicide Mother Lung disease Diabetes mellitus Social History Household Members: Family Housing: House Do you presently have 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 Patient Tobacco Use Status: Former Tobacco user Tobacco use type: Cigarette Years Smoked: 5 years e-Cigarette/Vaping Use: Never Used Second Hand Smoke Exposure: No service: No Current occupational status: unemployed and disabled Gender identity: Female Cognitive needs: Yes Hearing needs: No Vision needs: No Female Reproductive History Menstrual Age of Menarche: 10 Physical Exam Vital Signs: Last Vital Signs Pulse 71 05/19/24 10:13 BP 142/60 H 05/19/24 10:13 BMI result Body Mass Index 42.1 Results AMB Hemoglobin A1c AMB Hemoglobin A1c 8.7 % Last Edit by SEFERINO Arizmendi on 05/19/24 10:31 Results Reviewed Results Reviewed: Laboratory Last Values Glucose (Clinic) 199 mg/dL (60-115) H 05/19/24 10:21 Hgb A1c (Clinic) 8.7 % (4.0-6.0) H 05/19/24 10:27 Assessment & Plan Assessment & Plan (1) Uncontrolled type 2 diabetes mellitus with chronic kidney disease, with long-term current use of insulin: Code(s): E11.22 - Type 2 diabetes mellitus with diabetic chronic kidney disease; E11.65 - Type 2 diabetes mellitus with hyperglycemia; Z79.4 - technician terminal and repeater (current) use of insulin Category: Medical Plan: will try Ozempic. Discussed risks and benefits and adverse effects of this medication. We discussed adjusting the mealtime insulin however she refuses to make any insulin adjustments. After a 20 minute discussion alone on CGM she is in agreement to trialing the freestyle [place]. She will call us when she gets this to set up an appointment to help set this up and show her how to use it. We reviewed again the complications associated with poorly managed diabetes. (2) Hypertension: Code(s): I10 - Essential (primary) hypertension Category: Medical Plan: Continue current regimen (3) Morbid obesity: Code(s): E66.01 - Morbid (severe) obesity due to excess calories Category: Medical Plan: start Ozempic. We did discuss the benefits of weight loss. Patient understands and agrees with this plan. Orders: Orders AMB Hemoglobin A1c Today E11.22 - Type 2 diabetes mellitus with diabetic chronic kidney disease, N18.2 - Chronic kidney disease, stage 2 (mild), Z13.9 - Encounter for screening, unspecified, Z79.4 - nursing home (current) use of insulin Medications: New semaglutide (Ozempic) for 4 weeks; then increase to 0.5 mg every week 0.25 mg (0.368 mL) subcut QWEEK 3 mL 1RF blood-glucose sensor (FreeStyle [place] 3 Sensor device) Apply every 14 days As directed to monitor blood glucose 2 ea 11RF E11.9 - Type 2 diabetes mellitus without complications, Z79.4 - technician terminal and repeater (current) use of insulin blood-glucose meter,continuous (FreeStyle [place] 3 [place]) Use daily As directed to monitor blood glucose 1 ea 0RF Coding Level of Care Code Est Pt Level 4 (76322) Diagnoses Uncontrolled type 2 diabetes mellitus with chronic kidney disease, with long-term current use of insulin E11.22; E11.65; Z79.4 Essential hypertension I10 Morbid obesity E66.01
[2024-05-19 10:13] VITALS: BP 142/60; PULSE 71; BMI 42.1
[2024-05-19 10:26] LABS: Glucose, Whole Blood 199 mg/dL (60-115)
== END 2024-05-19 10:52 | disposition home or self-care (01) ==
PROVIDERS: PCP Internal Medicine; Visit Provider Physician Assistant
DX: E11.22 Type 2 diabetes mellitus with diabetic chronic kidney disease (principal); E11.65 Type 2 diabetes mellitus with hyperglycemia; Z79.4 Long term (current) use of insulin; I12.9 Hypertensive chronic kidney disease with stage 1 through stage 4 chronic kidney disease, or unspecified chronic kidney disease; E66.01 Morbid (severe) obesity due to excess calories; Z13.9 Encounter for screening, unspecified; N18.2 Chronic kidney disease, stage 2 (mild)
CPT/HCPCS: 99214

== ENCOUNTER 2024-06-23 10:45 | Outpatient (AMB) | payer OTHER, SELFPAY ==
--- NOTE | 2024-06-23 10:47 | A.OFFVIS_ITS ---
Vital Signs 06/23/24 11:10 Height 4 ft 9 in Weight 196 lb 3.382 oz BMI 42.5 BP 120/60 Blood Pressure Location Rt brachial Position Sitting Pulse 71 Pulse Source Pulse Oximeter Intake Visit Reasons: T2DM Intake Note: Patient presents today for a follow-up on Type 2 Diabetes Mellitus: Last Diabetic eye exam was on: DUE? Last Podiatry exam was on: 03/2024 Most recent HbA1c: 8.7%, 05/19/2024 Random Glucose- 181 mg/dL, Today Operations Developer Required: Yes Operations Developer Language: Mink [employer]: Operations Developer Offered & Declined Accompanied by: Daughter Allergies ibuprofen [From Motrin] Allergy (Intermediate, Verified 06/23/24 11:16) High Blood Pressure, Rash oxycodone [From Percocet] Allergy (Intermediate, Verified 06/23/24 11:16) Itching tirzepatide [From Mounjaro] Adverse Reaction (Severe, Verified 06/23/24 11:16) Diarrhea HPI HPI T2DM: Details: Pt is a 79 y/o female who presents today for a dm follow up. She is accompanied today by her daughter who translates today. Appropriate paperwork signed filled. Endo: Initially diagnosed with T2DM in 1999. Recent A1c is 8.7. Current regimen: Toujeo 36 units qHS and novolog 4 units. And at last visit was started on Ozempic 0.25 mg weekly. She never picked up the Ozempic. I had also ordered a CGM after a very long discussion but never picked it up. -Was initially started on treatment with Metformin. She reports metformin was stopped due to an issue with her kidney. She also failed Trulicity due to GI distress. I discontinue Jardiance due to frequent UTIs and yeast infections. She was started on mounjaro but caused diarrhea so she d/c this. Treats lows with juice. Checks sugar after to ensure it is rising. Treats according to rule of 15's. Has her eyes checked yearly, last eye exam needs to make appt . Denies retinopathy. Has neuropathy. On gabapentin. Sees podiatry. Has nephropathy, on losartan . Is followed by nephrology Has HLD, on Atorvastatin 80 mg PO daily. Has CAD. Had diabetes education. CV: Bp today is 120/60and she is on amlodipine 10 mg, furosemide 20 mg b.i.d., losartan 25 mg. No chest pain, shortness of breath or palpitations. Cholesterol is managed with atorvastatin 80 mg. Nephro: Follows with Nephrology. She states that she knows to avoid NSAIDs. 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 Aortic stenosis CKD (chronic kidney disease) stage 3, GFR 30-59 ml/min Dyslipidemia Diabetic polyneuropathy associated with type 2 diabetes mellitus Diabetic nephropathy associated with type 2 diabetes mellitus Chronic kidney disease Hypertension Asthma Thalamic pain syndrome GERD (gastroesophageal reflux disease) Morbid obesity Surgical History H/O aortic valve replacement History of breast lump/mass excision History of tubal ligation History of cholecystectomy Family History Sister History of renal pelvis cancer Father Suicide Mother Lung disease Diabetes mellitus Social History Household Members: Family Housing: House Do you presently have visiting nurse or 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 Patient Tobacco Use Status: Former Tobacco user Tobacco use type: Cigarette Years Smoked: 5 years e-Cigarette/Vaping Use: Never Used Second Hand Smoke Exposure: No service: No Current occupational status: unemployed and disabled Gender identity: Female Cognitive needs: Yes Hearing needs: No Vision needs: No Female Reproductive History Menstrual Age of Menarche: 10 Physical Exam Vital Signs: Last Vital Signs Pulse 71 06/23/24 11:10 BP 120/60 06/23/24 11:10 BMI result Body Mass Index 42.5 Results Reviewed Results Reviewed: Laboratory Last Values Glucose (Clinic) 181 mg/dL (60-115) H 06/23/24 11:13 Assessment & Plan Assessment & Plan (1) Uncontrolled type 2 diabetes mellitus with chronic kidney disease, with long-term current use of insulin: Code(s): E11.22 - Type 2 diabetes mellitus with diabetic chronic kidney disease; E11.65 - Type 2 diabetes mellitus with hyperglycemia; Z79.4 - director long term care (current) use of insulin Category: Medical Plan: We will order Dexcom G7 given the back order freestyle [place]. Advised to continue monitoring glucose with glucometer. She is refusing to adjust insulin. Advised to start Ozempic. Labs ordered. Follow up in 3 months. Sooner if needed. Patient understands and agrees with the plan. (2) CKD (chronic kidney disease) stage 3, GFR 30-59 ml/min: Comment: ARLEY due to compromise in renal perfusion due to CRS Getting diuresis; Serum creatinine is at baseline Code(s): N18.30 - Chronic kidney disease, stage 3 unspecified Category: Medical Qualifiers: Chronic kidney disease stage 3 subtype: stage 3b (GFR 30-44) Qualified Code(s): N18.32 - Chronic kidney disease, stage 3b Plan: We will monitor . (3) Essential hypertension: Code(s): I10 - Essential (primary) hypertension Category: Medical Plan: WNL. Continue current regimen Orders: Orders Hemoglobin A1c 3 Months E11.22 - Type 2 diabetes mellitus with diabetic chronic kidney disease, E11.65 - Type 2 diabetes mellitus with hyperglycemia, I10 - Essential (primary) hypertension, N18.32 - Chronic kidney disease, stage 3b, Z79.4 - retirement (current) use of insulin Microalbumin, Random (w Creat) 3 Months E11.22 - Type 2 diabetes mellitus with diabetic chronic kidney disease, E11.65 - Type 2 diabetes mellitus with hyperglycemia, I10 - Essential (primary) hypertension, N18.32 - Chronic kidney disease, stage 3b, Z79.4 - retirement (current) use of insulin Comprehensive [place]. Panel Fast 3 Months E11.22 - Type 2 diabetes mellitus with diabetic chronic kidney disease, E11.65 - Type 2 diabetes mellitus with hyperglycemia, I10 - Essential (primary) hypertension, N18.32 - Chronic kidney disease, stage 3b, Z79.4 - director long term care (current) use of insulin Medications: New blood-glucose meter,continuous (Dexcom G7 Freight Separator) use daily As directed to monitor blood glucose 1 ea 0RF E11.22 - Type 2 diabetes mellitus with diabetic chronic kidney disease, E11.65 - Type 2 diabetes mellitus with hyperglycemia, Z79.4 - retirement (current) use of insulin blood-glucose sensor (Dexcom G7 Sensor device) Use daily As directed to monitor blood glucose. Change q 10 days 3 ea 5RF Changed From semaglutide (Ozempic) for 4 weeks; then increase to 0.5 mg every week 0.25 mg (0.368 mL) subcut QWEEK 3 mL 1RF To semaglutide (Ozempic) 0.25 mg (0.368 mL) subcut QWEEK 3 mL 3RF Discontinued blood-glucose meter,continuous (FreeStyle [place] 3 [place]) Discontinued Reason: Doctor's Order Use daily As directed to monitor blood glucose 1 ea 0RF Coding Level of Care Code Est Pt Level 4 (19643) Complex EM visit Add On G2211 Diagnoses Uncontrolled type 2 diabetes mellitus with chronic kidney disease, with long- term current use of insulin E11.22; E11.65; Z79.4 Stage 3b chronic kidney disease N18.32 Chronic kidney disease stage 3 subtype: stage 3b (GFR 30-44) Essential hypertension I10
[2024-06-23 11:10] VITALS: BP 120/60; PULSE 71; BMI 42.5
[2024-06-23 11:21] LABS: Glucose, Whole Blood 181 mg/dL (60-115)
== END 2024-06-23 11:35 | disposition home or self-care (01) ==
PROVIDERS: PCP Internal Medicine; Visit Provider Physician Assistant
DX: E11.22 Type 2 diabetes mellitus with diabetic chronic kidney disease (principal); E11.65 Type 2 diabetes mellitus with hyperglycemia; Z79.4 Long term (current) use of insulin; N18.32 Chronic kidney disease, stage 3b; I10 Essential (primary) hypertension

== ENCOUNTER → 2024-06-23 10:45 | Outpatient (BNVA) | payer OTHER, SELFPAY | PROVIDERS: PCP Internal Medicine; Visit Provider Physician Assistant | DX: I12.9 Hypertensive chronic kidney disease with stage 1 through stage 4 chronic kidney disease, or unspecified chronic kidney disease (principal); E11.22 Type 2 diabetes mellitus with diabetic chronic kidney disease; N18.32 Chronic kidney disease, stage 3b; E11.65 Type 2 diabetes mellitus with hyperglycemia; Z79.4 Long term (current) use of insulin; Z71.3 Dietary counseling and surveillance | CPT/HCPCS: 82947; 99212 ==

== ENCOUNTER 2024-07-10 15:31 | Outpatient (AMB) | payer OTHER, SELFPAY ==
--- NOTE | 2024-07-10 15:50 | A.OFFPC_ITS ---
Vital Signs 07/10/24 15:51 Height 4 ft 9 in Weight 194 lb BMI 42.0 BP 122/62 Blood Pressure Location Lt brachial Position Sitting Intake Visit Reasons: DM Intake Note: Patient here for a follow up DM Inventory Planner Required: No Accompanied by: Daughter Allergies ibuprofen [From Motrin] Allergy (Intermediate, Verified 07/10/24 16:01) High Blood Pressure, Rash oxycodone [From Percocet] Allergy (Intermediate, Verified 07/10/24 16:01) Itching tirzepatide [From Mounjaro] Adverse Reaction (Severe, Verified 07/10/24 16:01) Diarrhea Medication List - Last Reconciled 07/10/24 by Sehlby Golden MD amlodipine 10 mg PO DAILY aspirin 81 mg PO BEDTIME atorvastatin 80 mg PO BEDTIME 90 days blood pressure monitor As directed blood sugar diagnostic (FreeStyle Lite Strips) 3times a day blood-glucose meter (FreeStyle [place] Lite kit) As directed blood-glucose meter,continuous (Dexcom G7 Mdm Sr) use daily As directed to monitor blood glucose blood-glucose sensor (FreeStyle [place] 3 Sensor device) Apply every 14 days As directed to monitor blood glucose blood-glucose sensor (Dexcom G7 Sensor device) Use daily As directed to monitor blood glucose. Change q 10 days budesonide-formoterol 160-4.5 mcg/actuation (Symbicort) 2 puffs inhalation BID 30 days calcium acetate(phosphat bind) 667 mg PO BID 90 days cholecalciferol (vitamin D3) 25 mcg PO DAILY 90 days clotrimazole-betamethasone 1-0.05 % 1 appl topical BID 5 days disposable gloves As directed ferrous sulfate 325 mg PO .once a week 90 days fluticasone propionate 50 mcg/actuation 1 spray intranasal DAILY PRN folic acid 1 mg PO QAM 90 days FreeStyle Lancets (lancets) 3 times a day NS gabapentin 300 mg PO BEDTIME 90 days hydralazine 25 mg PO TID 90 days [incomtinemce liner pads As directed] insulin glargine U-300 conc (Toujeo SoloStar U-300 Insulin) 36 units subcut DAILY ipratropium-albuterol 0.5 mg-3 mg(2.5 mg base)/3 mL 3 mL inhalation RQ4H WHILE AWAKE lancets (TRUEplus Lancets) As directed test 4 times a day losartan 25 mg PO DAILY 90 days montelukast 10 mg PO QPM 90 days Novolog FlexPen U-100 Insulin (insulin aspart U-100) 5 - 10 units (0.05 - 0.1 mL) subcut TID NS Oxygen Home Use As directed pen needle, diabetic (BD Sia 2nd Gen Pen Needle) 5 times a day semaglutide (Ozempic) 0.5 mg (0.736 mL) subcut QWEEK 4 weeks terconazole 0.8% 1 appful vaginal BEDTIME 3 days tobramycin-dexamethasone 0.3-0.1 % 1 drp ophthalmic (eye) QID torsemide 20 mg PO BID [wipes As directed] Tobacco use date assessed: 10/20/23 Fall risk assessment: No Falls in past year Last assessed Fall Risk: 07/10/24 Dental Screening Dental Screen Date: 10/20/23 HPI HPI Comments History of Present Illness Details This is a 79-year-old female with diabetes mellitus type 2, chronic kidney disease stage 3, hypertension, hyperlipidemia, congestive heart failure, mild major depression, COPD and morbid obesity that comes today accompanied by daughter for follow-up on her conditions. Last A1c was still elevated and she just started Ozempic. Chronic kidney disease is follow by Nephrology. Blood pressure stable. Lipid panel will be order and her LDL goal should be less than 70. Has congestive heart failure in which last ejection fraction was 65% and follows with cardiology. Has not gain 5 lb in a week. Depression stable with medications and follow by Psychiatry. COPD well controlled with Symbicort. She is morbidly obese with a BMI of 42 and was advised to do diet and exercise to reach BMI goal less than 30. Complains of bilateral leg weakness and she does has venous insufficiency and arterial disease and will be referred to vascular surgery. 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 Aortic stenosis CKD (chronic kidney disease) stage 3, GFR 30-59 ml/min Dyslipidemia Diabetic polyneuropathy associated with type 2 diabetes mellitus Diabetic nephropathy associated with type 2 diabetes mellitus Chronic kidney disease Hypertension Asthma Thalamic pain syndrome GERD (gastroesophageal reflux disease) Morbid obesity Surgical History H/O aortic valve replacement History of breast lump/mass excision History of tubal ligation History of cholecystectomy Family History Sister History of renal pelvis cancer Father Suicide Mother Lung disease Diabetes mellitus Social History Household Members: Family Housing: House Do you presently have visiting nurse or other home services: Yes (permastone mechanic) Alcohol intake: never Comment: pt stays with pt. Patient Tobacco Use Status: Former Tobacco user Tobacco use type: Cigarette Years Smoked: 5 years e-Cigarette/Vaping Use: Never Used Second Hand Smoke Exposure: No service: No Current occupational status: unemployed and disabled Gender identity: Female Cognitive needs: Yes Hearing needs: No Vision needs: No Female Reproductive History Menstrual Age of Menarche: 10 Questionnaire Thrive Questionnaire Date Thrive assessed: 10/20/23 Are you currently unemployed and looking for a job?: I choose not to answer this question JES-7 AMB Questionnaire JES-7 Date JES - 7 assessed: 10/20/23 Source: Developed by Drs. Farhad Murdock, Caron Elkins, El Esqueda and colleagues, with an educational susanne from [employer]. Review of Systems Const All systems reviewed & are unremarkable except as noted in HPI and below Card Denies chest pain at rest, Denies chest pain with activity, Denies edema, Denies irregular heart rhythm, Denies claudication, Denies dyspnea, Denies dyspnea on exertion, Denies orthopnea, Denies paroxysmal nocturnal dyspnea and Denies slow heart rate Resp Denies cough, Denies dyspnea and Denies dyspnea on exertion GI Denies abdominal pain, Denies change in bowel habits, Denies excessive flatus, Denies nausea and Denies vomiting Musc Denies abnormal gait, Denies atrophy, Denies deformity and Denies limited range of motion Neuro Denies abnormal gait, Denies behavioral changes and Denies lack of coordination Psych Denies behavioral changes Physical exam (Primary Care) Vital Signs: Last Vital Signs BP 122/62 07/10/24 15:51 BMI result Body Mass Index 42.0 BMI Assessment/Plan discussion: High BMI High, discussed plan: lifestyle, weight reduction, dietary and physical activity Tobacco/Smoking Status: Tobacco use Status Tobacco use date assessed 10/20/23 07/10/24 15:56 Patient Tobacco Use Status Former Tobacco user 07/10/24 15:56 Tobacco use type Cigarette 07/10/24 15:56 e-Cigarette/Vaping Use Never Used 07/10/24 15:56 Thrive Assessment: Date of Thrive Assessment Date Thrive assessed 10/20/23 07/10/24 15:56 Resp Effort & Inspection: normal respiratory effort Auscultation: clear to auscultation bilaterally Cardio Jugular venous distension: no JVD Rate: regular rate Rhythm: regular rhythm Heart sounds: S1 normal heart sound present and S2 normal heart sound present Extrem General: Yes full ROM Office Procedures Flu Questionnaire Does the patient have a severe egg allergy?: No Immunizations Fluarix Triv [id number] (PF) 45 mcg (15 mcg x 3)/0.5 mL IM syringe Performing Provider: Shelby Golden MD Performing [facility] [place] [facility] Documented (not given) by: SEFERINO Simon on 07/10/24 15:57 Reason Not Given: Patient Refused Coding Level of Care Code Est Pt Level 4 (35723) Complex EM visit Add On G2211 Diagnoses Venous (peripheral) insufficiency I87.2 CKD stage 3b, GFR 30-44 ml/min N18.32 Essential hypertension I10 Hyperlipidemia LDL goal <70 E78.5 Mild major depression F32.0 COPD (chronic obstructive pulmonary disease) J44.9 Chronic systolic congestive heart failure I50.22 Heart failure chronicity: chronic Heart failure type: systolic Morbid obesity with BMI of 40.0-44.9, adult E66.01; Z68.41 Uncontrolled type 2 diabetes mellitus with chronic kidney disease, with long- term current use of insulin E11.22; E11.65; Z79.4 Time Spent (min) 24 Assessment & Plan Assessment & Plan (1) Venous (peripheral) insufficiency: Code(s): I87.2 - Venous insufficiency (chronic) (peripheral) Category: Medical Plan: Referred to vascular surgery. (2) CKD stage 3b, GFR 30-44 ml/min: Code(s): N18.32 - Chronic kidney disease, stage 3b Category: Medical Plan: Follow-up with nephrology. (3) Essential hypertension: Code(s): I10 - Essential (primary) hypertension Category: Medical Plan: Continue amlodipine and hydralazine. Blood pressure goal is equal or less than 130/80. (4) Hyperlipidemia LDL goal <70: Code(s): E78.5 - Hyperlipidemia, unspecified Category: Medical Plan: Continue statins. LDL goal is less than 70. (5) Mild major depression: Code(s): F32.0 - Major depressive disorder, single episode, mild Category: Medical Plan: In remission. (6) COPD (chronic obstructive pulmonary disease): Code(s): J44.9 - Chronic obstructive pulmonary disease, unspecified Category: Medical Plan: Continue Symbicort. Use rescue inhaler as needed. Follow-up with pulmonology. (7) Congestive heart failure: Code(s): I50.9 - Heart failure, unspecified Category: Medical Qualifiers: Heart failure chronicity: chronic Heart failure type: systolic Qualif ied Code(s): I50.22 - Chronic systolic (congestive) heart failure Plan: Continue diuretics. The goal is to not gain 5 lb in a week. (8) Morbid obesity with BMI of 40.0-44.9, adult: Code(s): E66.01 - Morbid (severe) obesity due to excess calories; Z68.41 - Body mass index [BMI] 40.0-44.9, adult Category: Medical Plan: Start diet and exercise. BMI goal is less than 30. (9) Uncontrolled type 2 diabetes mellitus with chronic kidney disease, with long-term current use of insulin: Code(s): E11.22 - Type 2 diabetes mellitus with diabetic chronic kidney disease; E11.65 - Type 2 diabetes mellitus with hyperglycemia; Z79.4 - manager terminal (current) use of insulin Category: Medical Plan: Continue insulin. A1c goal is equal or less than 7%. Orders: Orders Lipid Panel Today E78.5 - Hyperlipidemia, unspecified Vitamin D 25-OH Total Today E55.9 - Vitamin D deficiency, unspecified Vitamin B12 and Folate Today E53.8 - Deficiency of other specified B group vitamins NT-proBNP Today I50.22 - Chronic systolic (congestive) heart failure Influenza [id number] Immunization Today Z23 - Encounter for immunization Microalbumin, Random (w Creat) Today R80.9 - Proteinuria, unspecified Comprehensive [place]. Panel Fast Today I87.2 - Venous insufficiency (chronic) (peripheral) Complete Blood Count Auto Diff Today D64.9 - Anemia, unspecified IRON PROFILE Today D64.9 - Anemia, unspecified Referrals Vascular Surgery Referral I87.2 - Venous insufficiency (chronic) (peripheral) Medications: Refilled ferrous sulfate 325 mg PO .once a week 90 days 15 tabs 1RF D50.9 - Iron deficiency anemia, unspecified
[2024-07-10 15:51] VITALS: BP 122/62; BMI 42.0
== END 2024-07-10 16:15 | disposition home or self-care (01) ==
PROVIDERS: PCP Internal Medicine; Visit Provider Internal Medicine
DX: I12.9 Hypertensive chronic kidney disease with stage 1 through stage 4 chronic kidney disease, or unspecified chronic kidney disease (principal); N18.32 Chronic kidney disease, stage 3b; F32.0 Major depressive disorder, single episode, mild; J44.9 Chronic obstructive pulmonary disease, unspecified; I50.22 Chronic systolic (congestive) heart failure; E66.813 Obesity, class 3; Z68.41 Body mass index [BMI] 40.0-44.9, adult; E11.22 Type 2 diabetes mellitus with diabetic chronic kidney disease; E11.65 Type 2 diabetes mellitus with hyperglycemia; Z79.4 Long term (current) use of insulin; I87.2 Venous insufficiency (chronic) (peripheral); E78.5 Hyperlipidemia, unspecified; Z23 Encounter for immunization

== ENCOUNTER → 2024-07-10 15:31 | Outpatient (BNVA) | payer OTHER, SELFPAY | PROVIDERS: PCP Internal Medicine; Visit Provider Internal Medicine | DX: I13.0 Hypertensive heart and chronic kidney disease with heart failure and stage 1 through stage 4 chronic kidney disease, or unspecified chronic kidney disease (principal); E11.22 Type 2 diabetes mellitus with diabetic chronic kidney disease; N18.32 Chronic kidney disease, stage 3b; I50.22 Chronic systolic (congestive) heart failure; Z79.4 Long term (current) use of insulin; E11.65 Type 2 diabetes mellitus with hyperglycemia; E66.01 Morbid (severe) obesity due to excess calories; Z68.41 Body mass index [BMI] 40.0-44.9, adult; F32.0 Major depressive disorder, single episode, mild; E78.5 Hyperlipidemia, unspecified; I87.2 Venous insufficiency (chronic) (peripheral); J44.9 Chronic obstructive pulmonary disease, unspecified; Z71.3 Dietary counseling and surveillance | CPT/HCPCS: 90471; 99212 ==

== ENCOUNTER 2024-07-19 16:22 | Emergency (ER) | payer OTHER, SELFPAY ==
--- NOTE | ~2024-07-19 | XR_ITS ---
EXAMINATION: XR CHEST CLINICAL INFORMATION: Lung pain COMPARISON: X-ray 02/21/2024 TECHNIQUE: 2 views of the chest were obtained. FINDINGS: Stable cardiomediastinal silhouette, within normal limits. Redemonstrated is ascending aortic stent graft. No focal consolidation, effusion, edema. No gross pneumothorax is seen. Thoracic spine degeneration. XR/XR chest 2V IMPRESSION: No evidence of acute pulmonary process. Electronically signed by: Rafi Schwarz MD 07/19/2024 05:52 PM EDT
--- NOTE | ~2024-07-19 | XR_ITS ---
EXAMINATION: XR LUMBOSACRAL SPINE CLINICAL INFORMATION: Low back pain, pain and vomiting COMPARISON: CT abdomen pelvis 07/01/2022 MRI lumbar spine 05/16/2021 TECHNIQUE: Three views of the lumbosacral spine. FINDINGS: Degenerative changes are present throughout the spine with predominantly endplate changes. There is mild disc space narrowing seen at most levels. Is marked grade 1 anterolisthesis of L5 upon S1 which appears increased when compared with prior CT from 07/01/2022 as well as the MR from 05/16/2021. No fractures or bony destructive lesions are seen. Extensive vascular calcifications are noted. XR/XR lumbar spine 2-3V IMPRESSION: Degenerative changes throughout the spine with grade 1 anterolisthesis of L5 upon S1 which appears increased when compared with prior CT from 07/01/2022. Electronically signed by: Edy Gabriel MD 07/19/2024 06:15 PM EDT
[2024-07-19 16:28] VITALS: BP 142/46; PULSE 79; RESP 19; TEMP 36.7; O2SAT 97; BMI 37.7
--- NOTE | 2024-07-19 16:35 | ED.ABDPAIN ---
HPI - Abdominal Pain General Chief Complaint: Abdominal Pain Stated Complaint: pain in the lower back Time Seen by Provider: 07/19/24 20:46 History of Present Illness ED Provider: She ALONSO narrative: The patient is a 79-year-old woman who says that for the last 5 days she has had bad epigastric pain whenever she eats. She says that she feels the pain in her epigastrium and that it radiates around the left side towards her back. She has had nausea. She has had loose stools. She says that she has not really eaten anything in the last 2 days because of this pain. Even though she has not eaten anything she still has pain currently. The patient has a history of tubal ligation and a cholecystectomy. No definite fevers. Related Data Home Medications ?Medication ?Instructions ?Recorded ?Confirmed fluticasone propionate 50 1 spray intranasal DAILY PRN 06/18/22 07/10/24 mcg/actuation nasal Allergy Symptoms spray,suspension blood-glucose meter (FreeStyle #1 ea 08/12/22 07/10/24 [place] Lite kit) Oxygen Home Use 03/15/23 07/10/24 blood sugar diagnostic (FreeStyle 03/15/23 07/10/24 Lite Strips) tobramycin 0.3 %-dexamethasone 0.1 1 drp ophthalmic (eye) QID 04/16/23 07/10/24 % eye drops,suspension torsemide 20 mg tablet 20 mg PO BID 05/13/23 07/10/24 insulin glargine U-300 conc 300 36 unit subcut DAILY 02/21/24 07/10/24 unit/mL (1.5 mL) subcutaneous pen (Toujeo SoloStar U-300 Insulin) Previous Rx's ?Medication ?Instructions ?Recorded FreeStyle Lancets 28 gauge #300 ea 01/15/22 (lancets) pen needle, diabetic 32 gauge x #400 ea 04/29/22/32 (BD Sia 2nd Gen Pen Needle) blood pressure monitor #1 ea 04/12/23 lancets 33 gauge (TRUEplus Lancets) #100 ea 04/15/23 ipratropium 0.5 mg-albuterol 3 mg 3 ml inhalation RQ4H WHILE AWAKE 04/17/23 (2.5 mg base)/3 mL nebulization #3 mL soln Novolog FlexPen U-100 Insulin 100 5 - 10 unit (0.05 - 0.1 mL) subcut 07/15/23 unit/mL (3 mL) subcutaneous TID #15 mL (insulin aspart U-100) budesonide-formoterol HFA 160 2 puff inhalation BID 30 days 08/31/23 mcg-4.5 mcg/actuation aerosol #10.2 grams inhaler (Symbicort) disposable gloves #1,000 ea 09/01/23 incomtinemce liner pads #60 ea 09/01/23 wipes #240 ea 09/01/23 montelukast 10 mg tablet 10 mg PO QPM 90 days #90 tabs 12/02/23 clotrimazole-betamethasone 1 1 appl topical BID 5 days #45 grams 12/23/23 %-0.05 % topical cream terconazole 0.8 % vaginal cream 1 appful vaginal BEDTIME 3 days 12/23/23 #20 grams folic acid 1 mg tablet 1 mg PO QAM 90 days #90 tabs 01/25/24 cholecalciferol (vitamin D3) 25 25 mcg PO DAILY 90 days #90 caps 01/26/24 mcg (1,000 unit) capsule calcium acetate(phosphat bind) 667 667 mg PO BID 90 days #180 caps 02/20/24 mg capsule losartan 25 mg tablet 25 mg PO DAILY 90 days #90 tabs 04/17/24 aspirin 81 mg tablet,delayed 81 mg PO BEDTIME #90 tabs 05/15/24 release amlodipine 10 mg tablet 10 mg PO DAILY #30 tabs 06/02/24 atorvastatin 80 mg tablet 80 mg PO BEDTIME 90 days #90 tabs 06/07/24 gabapentin 300 mg capsule 300 mg PO BEDTIME 90 days #90 caps 06/22/24 blood-glucose sensor (FreeStyle #2 ea 06/23/24 [place] 3 Sensor device) hydralazine 25 mg tablet 25 mg PO TID 90 days #270 tabs 06/23/24 semaglutide 0.25 mg or 0.5 mg (2 0.5 mg (0.736 mL) subcut QWEEK 4 06/23/24 mg/3 mL) subcutaneous pen injector weeks #2.944 mL (Ozempic) blood-glucose meter,continuous #1 ea 06/26/24 (Dexcom G7 Director Of Religious Activities) blood-glucose sensor (Dexcom G7 #3 ea 06/26/24 Sensor device) ferrous sulfate 325 mg (65 mg 325 mg PO .once a week 90 days #15 07/10/24 iron) tablet tabs omeprazole 40 mg capsule,delayed 40 mg PO DAILY #30 caps 07/19/24 release sucralfate 1 gram tablet 1 g PO BID PRN upper abdominal 07/19/24 pain #60 tabs Allergies Allergy/AdvReac Type Severity Reaction Status Date / Time ibuprofen [From Motrin] Allergy Intermediate High Blood Verified 07/19/24 16:30 Pressure, Rash oxycodone [From Percocet] Allergy Intermediate Itching Verified 07/19/24 16:30 tirzepatide [From Mounjaro] AdvReac Severe Diarrhea Verified 07/19/24 16:30 Review of Systems Review of Systems Yes all other systems are reviewed and are negative PMFSH Past Medical History Medical History Acute exacerbation of CHF (congestive heart failure) Acute on chronic diastolic (congestive) heart failure Acute exacerbation of CHF (congestive heart failure) Acute respiratory failure with hypoxia Flash pulmonary edema Dyspnea Furuncle Vulvar itching Vaginal lump Pleural effusion Exocrine pancreatic insufficiency Renal cyst, acquired, right Back pain Vitamin D deficiency HLD (hyperlipidemia) JOSE (obstructive sleep apnea) 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 Aortic stenosis CKD (chronic kidney disease) stage 3, GFR 30-59 ml/min Dyslipidemia Diabetic polyneuropathy associated with type 2 diabetes mellitus Diabetic nephropathy associated with type 2 diabetes mellitus Chronic kidney disease Hypertension Asthma Thalamic pain syndrome GERD (gastroesophageal reflux disease) Morbid obesity Surgical History H/O aortic valve replacement History of breast lump/mass excision History of tubal ligation History of cholecystectomy Family History Family History Sister History of renal pelvis cancer Father Suicide Mother Lung disease Diabetes mellitus Social History Social History Household Members: Family Housing: House Do you presently have 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 Patient Tobacco Use Status: Former Tobacco user Tobacco use type: Cigarette Years Smoked: 5 years Smoked in Last 30 Days: No e-Cigarette/Vaping Use: Never Used Second Hand Smoke Exposure: No Use of substances other than those prescribed or required for medical reasons: No Advance Directives: No Advance Directives Information Provided: No Do you have a plan to hurt others: No Plan service: No Current occupational status: unemployed and disabled Gender identity: Female Cognitive needs: Yes Hearing needs: No Vision needs: No Physical Exam ED Vital Signs: Vital Signs - 24 hr 07/19/24 16:28 07/19/24 19:51 07/19/24 22:50 Temperature 98.1 F 98.0 F 98.2 F Pulse Rate 79 71 77 Respiratory Rate 19 18 16 Blood Pressure 142/46 H 179/46 H 162/51 H Pulse Oximetry 97 99 100 Oxygen Delivery Method Room Air Room Air BMI result Body Mass Index 37.7 Const Other: Patient is a 79-year-old woman who was awake and alert. She does not appear in obvious distress. HENMT Other: Face is symmetrical. Mucous membranes moist. Eyes Other: Pupils are round equal, conjunctivae clear Neck Other: No JVD Resp Effort & Inspection: normal respiratory effort Auscultation: clear to auscultation bilaterally Cardio Other: The patient has a regular rate and rhythm. There is a 3/6 holosystolic murmur. GI Other: The patient has generalized upper abdominal tenderness without rebound or guarding. Back/Spine/Pelvis Other: No definite CVA percussion tenderness Skin Other: Skin is dry Neuro Other: The patient is awake and alert with a normal mental status. Cranial nerves are grossly intact. She moves her extremities symmetrically and seems grossly neurologically intact. Extrem Other: No peripheral edema Course Course Course Narrative: This is a Rapid Medical Examination (RME) performed by Neelam Jorge PA-C in triage. Full HPI, ROS, assessment and treatment plan per primary provider in the Main ED. 79 yo female hx of hypertension, anxiety, chronic kidney disease, neuropathy, COPD, diabetes, heart failure here for eval of epigstric abd pain, low back pain, lung pain, diarrhea, and nausea/ vomiting x5 days. no known sick contacts. Plan: labs, UA, cxr/ lumbar xr Medical Decision Making Medical Decision Making [facility] Narrative: The patient is a 79-year-old woman who presents with 5 days of epigastric pain. She has had a remote cholecystectomy. Her description of the pain indicates that the pain is very much related to eating. I suspect this is probably gastritis. Her labs are unremarkable. She was given a dose of sucralfate with improvement in her discomfort. Given the timing of her symptoms and given her benign abdominal exam and her benign labs I think CT imaging of the abdomen with probably not be helpful. Clinically this seems to be a case of gastritis. The patient will be started on omeprazole and I will also prescribe p.r.n. sucralfate. She should follow up with her PCP. Lab Data 07/19/24 18:11 07/19/24 18:11 Labs: Lab Results 07/19/24 07/19/24 Range/Units 18:11 19:53 WBC 10.6 (4.8-10.8) X10*3/uL RBC 4.88 (4.20-5.50) X10*6/uL Hgb 13.0 (12.0-16.0) g/dl Hct 38.5 (37.0-47.0) % MCV 78.9 L (80.0-98.0) fL MCH 26.6 L (27.0-33.0) pg MCHC 33.8 (31.0-35.0) g/dl RDW 14.3 (11.0-16.0) % Plt Count 343 (160-400) X10*3/uL MPV 9.1 L (9.4-12.3) fL Immature Gran % (Auto) 0.3 (0.0-0.4) % Neut % (Auto) 66.0 (45-73) % Lymph % (Auto) 23.2 (20-40) % [place] % (Auto) 7.9 (2-11) % Eos % (Auto) 2.1 (0-4) % Baso % (Auto) 0.5 (0-2) % Lymph # (Auto) 2.5 (1.2-4.9) X10*3/uL [place] # (Auto) 0.8 (0.1-1.2) X10*3/uL Eos # (Auto) 0.2 (0.0-0.4) X10*3/uL Baso # (Auto) 0.1 (0.0-0.2) X10*3/uL Abs Immat Gran (auto) 0.03 (0.00-0.03) X10*3/uL Absolute Neuts (auto) 7.0 (2.0-8.3) x10*3/uL Absolute Nucleated RBC 0.000 (0.0-0.012) X10*3/uL Nucleated RBC % (auto) 0.0 (0.0-0.2) /100WBC Sodium 143 (135-145) mmol/L Potassium 3.8 (3.3-5.1) mmol/L Chloride 103 (96-108) mmol/L Carbon Dioxide 30 H (22-29) mmol/L Anion Gap 14 (12-20) BUN 25 H (9-16) mg/dL Creatinine 1.63 H (0.5-1.4) mg/dL Estim Creat Clear Calc 27.5 Estimated GFR 30 Random Glucose 146 H (60-115) mg/dL Calcium 9.8 D (8.4-10.2) mg/dL Magnesium 2.3 (1.6-2.6) mg/dL Total Bilirubin 0.4 (0.0-1.0) mg/dL AST 21 (5-31) U/L ALT 19 (0-31) U/L Alkaline Phosphatase 160 H (39-117) U/L Troponin I High Sens 10.0 D (<3.5-17.0) ng/L C-Reactive Protein 1.02 H (< or = 0.50) mg/dL B-Natriuretic Peptide 25 (<100) pg/mL Total Protein 7.3 (6.5-8.0) g/dL Albumin 3.6 (3.5-5.0) g/dL Lipase 21 (8-78) U/L Urine Color Yellow Urine Appearance Clear Urine pH 6.0 (5.0-9.0) Ur Specific [place] <= 1.005 (1.005-1.025) Urine Protein 100 (2+) H (Neg-Trace) mg/dL Urine Glucose (UA) Negative (Negative) mg/dL Urine Ketones Negative (Negative) mg/dL Urine Blood Negative (Negative) Urine Nitrite Negative (Negative) Ur Leukocyte Esterase Negative (Negative) Urine RBC 0-2 (0-2) /HPF Urine WBC 0-5 (0-5) /HPF Ur Squamous Epith Cells 0-2 (0-2) /HPF Urine Bacteria None Seen (None Seen) Hyaline Casts 0-2 (0-2) /LPF Influenza Type A (PCR) NEGATIVE (Negative) Influenza Type B (PCR) NEGATIVE (Negative) RSV RNA Qual (PCR) NEGATIVE (Negative) SARS-CoV-2 RNA (RT-PCR) NEGATIVE (Negative) Medications Administered Discontinued Medications Generic Name Dose Route Start Last Admin Trade Name Freq PRN Reason Stop Dose Admin Omeprazole 40 mg 07/19/24 22:29 07/19/24 22:47 Omeprazole 40 Mg Capsule.Dr PO 07/19/24 22:30 40 mg ONCE ONE Administration Sucralfate 1 gm 07/19/24 20:59 07/19/24 21:12 Sucralfate Oral Suspension 1 Gm/10 Ml Oral.Susp PO 07/19/24 21:00 1 gm ONCE ONE Administration Discharge Plan Discharge Clinical Impression: Acute epigastric pain Patient Disposition: Home, Self-Care Instructions: Gastritis (ED) Additional Instructions: I think that the pain that you were experiencing is coming from a condition we called gastritis. Gastritis is a condition in which there is irritation to the lining of the stomach that is uncomfortable. Please take the omeprazole prescribed every day. This medication helps reduce stomach acid production and helps with gastritis. There is a 2nd prescription, sucralfate, that you may use up to 2 times a day as needed for upper abdominal pain. Please contact your regular doctor's office in the morning to set up a follow up appointment to discuss this further. Return to the emergency room if significantly worse. Prescriptions: New omeprazole 40 mg capsule,delayed release(DR/EC) 40 mg PO DAILY Qty: 30 0RF sucralfate 1 gram tablet 1 g PO BID PRN (Reason: upper abdominal pain) Qty: 60 0RF No Action (DME) lancets [FreeStyle Lancets] 28 gauge misc See Rx Instructions .MEDSUPPLY Qty: 300 2RF Rx Instructions: 3 times a day (DME) pen needle, diabetic [BD Sia 2nd Gen Pen Needle] 32 gauge x 5/32 needle See Rx Instructions .MEDSUPPLY Qty: 400 4RF Rx Instructions: 5 times a day (DME) blood pressure monitor Kit See Rx Instructions .Route Qty: 1 0RF Rx Instructions: As directed (DME) lancets [TRUEplus Lancets] 33 gauge misc See Rx Instructions .Route Qty: 100 4RF Rx Instructions: As directed test 4 times a day insulin aspart U-100 [Novolog FlexPen U-100 Insulin] 100 unit/mL (3 mL) insulin pen 5 - 10 unit subcut TID Qty: 15 3RF (DME) wipes See Rx Instructions .Route .MEDSUPPLY Qty: 240 12RF Rx Instructions: As directed (DME) disposable gloves Misc See Rx Instructions .Route Qty: 1000 12RF Rx Instructions: As directed (DME) incomtinemce liner pads See Rx Instructions .Route .MEDSUPPLY Qty: 60 12RF Rx Instructions: As directed montelukast 10 mg tablet 10 mg PO QPM 90 Days Qty: 90 3RF folic acid 1 mg tablet 1 mg PO QAM 90 Days Qty: 90 3RF cholecalciferol (vitamin D3) 25 mcg (1,000 unit) capsule 25 mcg PO DAILY 90 Days Qty: 90 3RF calcium acetate(phosphat bind) 667 mg capsule 667 mg PO BID 90 Days Qty: 180 1RF losartan 25 mg tablet 25 mg PO DAILY 90 Days Qty: 90 0RF aspirin 81 mg tablet,delayed release (DR/EC) 81 mg PO BEDTIME Qty: 90 0RF amlodipine 10 mg tablet 10 mg PO DAILY Qty: 30 2RF atorvastatin 80 mg tablet 80 mg PO BEDTIME 90 Days Qty: 90 1RF gabapentin 300 mg capsule 300 mg PO BEDTIME 90 Days Qty: 90 0RF (DME) FreeStyle [place] 3 Sensor Device See Rx Instructions .ROUTE .MEDSUPPLY Qty: 2 11RF Rx Instructions: Apply every 14 days As directed to monitor blood glucose hydralazine 25 mg tablet 25 mg PO TID 90 Days Qty: 270 1RF Ozempic 0.25 mg or 0.5 mg (2 mg/3 mL) pen injector 0.5 mg subcut QWEEK 28 Days Qty: 2.944 0RF (DME) Dexcom G7 Sensor Device See Rx Instructions .Route Qty: 3 5RF Rx Instructions: Use daily As directed to monitor blood glucose. Change q 10 days (DME) Dexcom G7 Director Of Religious Activities Misc See Rx Instructions .Route Qty: 1 0RF Rx Instructions: use daily As directed to monitor blood glucose tobramycin-dexamethasone 0.3-0.1 % drops,suspension 1 drp ophthalmic (eye) QID ipratropium-albuterol 0.5 mg-3 mg(2.5 mg base)/3 mL Solution For Nebulization 3 ml inhalation RQ4H WHILE AWAKE Qty: 3 0RF torsemide 20 mg tablet 20 mg PO BID fluticasone propionate 50 mcg/actuation spray,suspension 1 spray intranasal DAILY PRN (Reason: Allergy Symptoms) (DME) blood-glucose meter [FreeStyle [place] Lite] Kit See Rx Instructions .ROUTE .MEDSUPPLY Qty: 1 Rx Instructions: As directed (DME) FreeStyle Lite Strips Strip See Rx Instructions .MEDSUPPLY Rx Instructions: 3times a day (DME) Oxygen Home Use Kit See Rx Instructions .Route Rx Instructions: As directed budesonide-formoterol [Symbicort] 160-4.5 mcg/actuation HFA aerosol inhaler 2 puff inhalation BID 30 Days Qty: 10.2 11RF clotrimazole-betamethasone 1-0.05 % cream 1 appl topical BID 5 Days Qty: 45 0RF terconazole 0.8 % cream 1 appful vaginal BEDTIME 3 Days Qty: 20 0RF insulin glargine U-300 conc [Toujeo SoloStar U-300 Insulin] 300 unit/mL (1.5 mL) insulin pen 36 unit subcut DAILY ferrous sulfate 325 mg (65 mg iron) tablet 325 mg PO .once a week 90 Days Qty: 15 1RF Referrals: Shelby Spence MD [Primary Care Provider] - (Gastritis) Interventions: ED Discharge Assessment Last Done: 07/19/24 22:50 Discharge Date/Time: 07/19/24 22:52 Print Language: [place]
[2024-07-19 18:18] LABS: MANUAL DIFF FLAG NO
[2024-07-19 18:22] LABS: Basophils Absolute Auto 0.1 X10*3/uL (0.0-0.2); Basophils Percent Auto 0.5 % (0-2); Eosinophils Absolute Auto 0.2 X10*3/uL (0.0-0.4); Eosinophils Percent Auto 2.1 % (0-4); Hematocrit 38.5 % (37.0-47.0); Imm Gran Abs Auto 0.03 X10*3/uL (0.00-0.03); Imm Gran Pct Auto 0.3 % (0.0-0.4); Lymphocytes Absolute Auto 2.5 X10*3/uL (1.2-4.9); Lymphocytes Percent Auto 23.2 % (20-40); Mean Corpuscular HGB Conc 33.8 g/dl (31.0-35.0); Mean Corpuscular Hemoglobin 26.6 pg (27.0-33.0); Mean Corpuscular Volume 78.9 fL (80.0-98.0); Mean Platelet Volume 9.1 fL (9.4-12.3); Monocytes Absolute Auto 0.8 X10*3/uL (0.1-1.2); Monocytes Percent Auto 7.9 % (2-11); Platelet Count 343 X10*3/uL (160-400); Red Blood Count 4.88 X10*6/uL (4.20-5.50); Red Cell Distribution Width 14.3 % (11.0-16.0); White Blood Count 10.6 X10*3/uL (4.8-10.8)
[2024-07-19 18:35] LABS: Alanine Aminotransferase 19 U/L (0-31); Albumin Level 3.6 g/dL (3.5-5.0); Alkaline Phosphatase 160 U/L (39-117); Anion Gap 14 (12-20); Aspartate Amino Transferase 21 U/L (5-31); Bilirubin Total 0.4 mg/dL (0.0-1.0); Blood Urea Nitrogen 25 mg/dL (9-16); Calcium 9.8 mg/dL (8.4-10.2); Carbon Dioxide 30 mmol/L (22-29); Chloride 103 mmol/L (96-108); Creatinine Clr Calc Pharmacy 27.5; Estimated Glomerular Filt Rate 30; Glucose Random 146 mg/dL (60-115); Lipase 21 U/L (8-78); Magnesium 2.3 mg/dL (1.6-2.6); Potassium 3.8 mmol/L (3.3-5.1); Sodium 143 mmol/L (135-145); Total Protein 7.3 g/dL (6.5-8.0)
[2024-07-19 18:40] LABS: B Type Natriuretic Peptide 25 pg/mL (<100)
[2024-07-19 19:00] LABS: Influenza A PCR NEGATIVE (Negative); Influenza B PCR NEGATIVE (Negative); Resp Syncy Virus RNA Qual PCR NEGATIVE (Negative); SARS COV2 PCR INHOUSE NEGATIVE (Negative)
[2024-07-19 19:51] VITALS: BP 179/46; PULSE 71; RESP 18; TEMP 36.7; O2SAT 99
[2024-07-19 20:09] LABS: Appearance Urine Clear; Color Urine Yellow; Glucose Urine UA Negative (Negative); Leukocyte Esterase Urine Negative (Negative); Nitrite Urine Negative (Negative); Specific Gravity - Urine <= 1.005 (1.005-1.025); UMIC TRIGGER UACC YES; Urine Blood Negative (Negative); Urine Ketones Negative (Negative); Urine Protein 100 (2+) mg/dL (Neg-Trace)
--- NOTE | 2024-07-19 20:29 | PC.NURSE ---
sheep sticker at bedside. pt a&ox4, respirations even and unlabored. pt reporting onset of nausea, vomiting, diarrhea and epigastric burning x3 days. pt reports she has been unable to eat and drink due to the pain. pt denies blood in vomit/diarrhea. pt denies chest pain at this time. vss.
--- NOTE | 2024-07-19 21:00 | ECG_ITS ---
Test Reason : CP Blood Pressure : / mmHG Vent. Rate : 062 BPM Atrial Rate : 062 BPM P-R Int : 124 ms QRS Dur : 088 ms QT Int : 442 ms P-R-T Axes : 029 -03 071 degrees QTc Int : 448 ms Normal sinus rhythm Left ventricular hypertrophy with repolarization abnormality ( R in aVL ) Abnormal ECG When compared with ECG of 26-DEC-2023 16:08, No significant change was found Referred By: Navdeep Nowak Electronically Signed By:MABEL MIDDLETON
[2024-07-19] MEDS: Sucralfate Oral Suspension 1 GM/10 ML ORAL.SUSP PO (21:12)
--- NOTE | 2024-07-19 21:18 | PC.NURSE ---
pt medicated per mar, tolerated well.
[2024-07-19 21:36] LABS: C Reactive Protein 1.02 mg/dL (< or = 0.50)
[2024-07-19 21:52] LABS: Bacteria Urine None Seen (None Seen); Hyaline Casts Urine 0-2 /LPF (0-2); RBC Urine 0-2 /HPF (0-2); Squamous Epithelial Cell Urine 0-2 /HPF (0-2); WBC Urine 0-5 /HPF (0-5)
[2024-07-19] MEDS: Omeprazole 40 MG CAPSULE.DR PO (22:47)
[2024-07-19 22:50] VITALS: BP 162/51; PULSE 77; RESP 16; TEMP 36.8; O2SAT 100
== END 2024-07-19 22:52 | disposition home or self-care (01) ==
PROVIDERS: Physician Assistant Medical; Emergency Provider Emergency Medicine; PCP Internal Medicine
DX: R10.13 Epigastric pain (principal); Z03.818 Encounter for observation for suspected exposure to other biological agents ruled out; I13.0 Hypertensive heart and chronic kidney disease with heart failure and stage 1 through stage 4 chronic kidney disease, or unspecified chronic kidney disease; N18.30 Chronic kidney disease, stage 3 unspecified; I50.9 Heart failure, unspecified; E78.5 Hyperlipidemia, unspecified; J45.909 Unspecified asthma, uncomplicated; J96.01 Acute respiratory failure with hypoxia; Z98.51 Tubal ligation status; Z90.49 Acquired absence of other specified parts of digestive tract; Z79.899 Other long term (current) drug therapy; Z79.4 Long term (current) use of insulin; Z99.81 Dependence on supplemental oxygen; Z79.02 Long term (current) use of antithrombotics/antiplatelets; Z79.82 Long term (current) use of aspirin
CPT/HCPCS: 0241U; 71046; 72100; 80053; 81001; 81003; 83690; 83735; 83880; 84484; 85025; 86140; 93005; 99283; 99285

== ENCOUNTER → 2024-07-19 21:00 | Outpatient (BNV) | payer OTHER, SELFPAY | PROVIDERS: Emergency Provider Emergency Medicine; PCP Internal Medicine; Visit Provider Internal Medicine | DX: R07.9 Chest pain, unspecified (principal); R94.31 Abnormal electrocardiogram [ECG] [EKG] | CPT/HCPCS: 93010 ==

== ENCOUNTER 2024-08-02 09:55 | Outpatient (AMB) | payer OTHER, SELFPAY ==
[2024-08-02 09:56] VITALS: BP 132/50; PULSE 76; O2SAT 96; BMI 37.5
--- NOTE | 2024-08-02 09:56 | A.OFFPC_ITS ---
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 Required: No Accompanied by: Daughter Allergies ibuprofen [From Motrin] Allergy (Intermediate, Verified 08/02/24 09:59) High Blood Pressure, Rash oxycodone [From Percocet] Allergy (Intermediate, Verified 08/02/24 09:59) Itching tirzepatide [From Mounjaro] Adverse Reaction (Severe, Verified 08/02/24 09:59) Diarrhea Tobacco use date assessed: 10/20/23 Fall risk assessment: No Falls in past year Last assessed Fall Risk: 08/02/24 Dental Screening Dental Screen Date: 10/20/23 HPI HPI Comments History of Present Illness Details 79 y/o female patient who presents to [facility] today for EDF. She was admitted at [facility] on 07/19 for GERD and discharged home the same day. She was prescribed Omeprazole and Sucralfate. Today she is accompanied by daughter who provides history and translation. She does report some symptom relief with medications. 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 Aortic stenosis CKD (chronic kidney disease) stage 3, GFR 30-59 ml/min Dyslipidemia Diabetic polyneuropathy associated with type 2 diabetes mellitus Diabetic nephropathy associated with type 2 diabetes mellitus Chronic kidney disease Hypertension Asthma Thalamic pain syndrome GERD (gastroesophageal reflux disease) Morbid obesity Surgical History H/O aortic valve replacement History of breast lump/mass excision History of tubal ligation History of cholecystectomy Family History Sister History of renal pelvis cancer Father Suicide Mother Lung disease Diabetes mellitus Social History Household Members: Family Housing: House Do you presently have 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 Patient Tobacco Use Status: Former Tobacco user Tobacco use type: Cigarette Years Smoked: 5 years e-Cigarette/Vaping Use: Never Used Second Hand Smoke Exposure: No service: No Current occupational status: unemployed and disabled Gender identity: Female Cognitive needs: Yes Hearing needs: No Vision needs: No Female Reproductive History Menstrual Age of Menarche: 10 Questionnaire Thrive Questionnaire Date Thrive assessed: 10/20/23 Are you currently unemployed and looking for a job?: I choose not to answer this question JES-7 AMB Questionnaire JES-7 Date JES - 7 assessed: 10/20/23 Source: Developed by Drs. Farhad Murdock, Caron Elkins, El Esqueda and colleagues, with an educational susanne from [employer]. Review of Systems Const All systems reviewed & are unremarkable except as noted in HPI and below Physical exam (Primary Care) Vital Signs: Last Vital Signs Pulse 76 08/02/24 09:56 BP 132/50 L 08/02/24 09:56 Pulse Ox 96 08/02/24 09:56 Oxygen Delivery Method Room Air 08/02/24 09:56 BMI result Body Mass Index 37.5 Tobacco/Smoking Status: Tobacco use Status Tobacco use date assessed 10/20/23 08/02/24 10:02 Patient Tobacco Use Status Former Tobacco user 08/02/24 10:02 Tobacco use type Cigarette 08/02/24 10:02 e-Cigarette/Vaping Use Never Used 08/02/24 10:02 Thrive Assessment: Date of Thrive Assessment Date Thrive assessed 10/20/23 08/02/24 10:02 Const General: cooperative and no acute distress Nutritional Appearance: obese Orientation/consciousness: patient oriented x3 Resp Effort & Inspection: normal respiratory effort Auscultation: clear to auscultation bilaterally Cardio Rhythm: abnormal rhythm Neuro Other: Walks with a cane. Gait unsteady. General: patient oriented x3 and moves all extremities Psych Speech and movement: Normal speech and movement present Coding Level of Care Code Est Pt Level 4 (25242) Diagnoses Gastroesophageal reflux disease, unspecified whether esophagitis present K21.9 Esophagitis presence: esophagitis presence not specified Time Spent (min) 20 Assessment & Plan Assessment & Plan (1) GERD (gastroesophageal reflux disease): Code(s): K21.9 - Gastro-esophageal reflux disease without esophagitis Category: Medical Qualifiers: Esophagitis presence: esophagitis presence not specified Qualified Code(s): K21.9 - Gastro-esophageal reflux disease without esophagitis Plan: Continue on prescribed medications. Healthy diet and weight loss.
== END 2024-08-02 11:07 | disposition home or self-care (01) ==
LOC: HO.HMCH 09:56
PROVIDERS: PCP Internal Medicine; Visit Provider Nurse Practitioner Family
DX: K21.9 Gastro-esophageal reflux disease without esophagitis (principal)

== ENCOUNTER → 2024-08-02 09:55 | Outpatient (BNVA) | payer OTHER, SELFPAY | PROVIDERS: PCP Internal Medicine; Visit Provider Nurse Practitioner Family | DX: K21.9 Gastro-esophageal reflux disease without esophagitis (principal) | CPT/HCPCS: 99212 ==

== ENCOUNTER 2024-08-18 15:41 | Emergency (ER) | payer OTHER, SELFPAY ==
--- NOTE | ~2024-08-18 | XR_ITS ---
EXAMINATION: XR FOOT, LEFT CLINICAL INFORMATION: Injury and laceration of the great toe. COMPARISON: Radiograph left foot 02/03/2019. TECHNIQUE: AP, lateral, and oblique views of the left foot. FINDINGS: Nondisplaced comminuted fracture of the distal phalanx of the first toe with surrounding soft tissue swelling. Moderate multifocal degenerative osteoarthritis. No osseous erosions. Calcaneal spurring. Extensive vascular calcifications. XR/XR foot LT min 3V IMPRESSION: Nondisplaced comminuted fracture of the distal phalanx of the first toe. Electronically signed by: Camille Jimenez MD 08/18/2024 05:13 PM [facility]
[2024-08-18 16:10] VITALS: BP 131/65; PULSE 81; RESP 18; TEMP 36.6; O2SAT 97; BMI 41.1
--- NOTE | 2024-08-18 16:11 | ED.LOWEXIN ---
HPI - Extremity Injury (Lower) General Chief Complaint: Wound/Laceration Stated Complaint: Left big toe injury Time Seen by Provider: 08/18/24 19:22 Source: patient, family, RN notes reviewed and old records reviewed Mode of arrival: wheelchair Limitations: language barrier (Patient and family offered senior vice president & general counsel but declined) History of Present Illness ED Provider: Eliza HPI Narrative: 79-year-old female presents for evaluation of left great toe pain. The patient has a medical history significant for diabetes, hyperparathyroidism, obesity, chronic kidney disease, COPD, not O2 dependent presents for evaluation of left great toe pain. Patient reports just prior to arrival she dropped a table onto her left great toe She sustained a small wound to the top of the left great toe. She denies any other injuries. She did not fall. She has no other complaints or concerns at this time Denies any fevers, chills The patient is on a baby aspirin daily but no anticoagulation Related Data Home Medications ?Medication ?Instructions ?Recorded ?Confirmed fluticasone propionate 50 1 spray intranasal DAILY PRN 06/18/22 07/10/24 mcg/actuation nasal Allergy Symptoms spray,suspension blood-glucose meter (FreeStyle #1 ea 08/12/22 07/10/24 [place] Lite kit) Oxygen Home Use 03/15/23 07/10/24 blood sugar diagnostic (FreeStyle 03/15/23 07/10/24 Lite Strips) tobramycin 0.3 %-dexamethasone 0.1 1 drp ophthalmic (eye) QID 04/16/23 07/10/24 % eye drops,suspension torsemide 20 mg tablet 20 mg PO BID 05/13/23 07/10/24 Previous Rx's ?Medication ?Instructions ?Recorded FreeStyle Lancets 28 gauge #300 ea 01/15/22 (lancets) pen needle, diabetic 32 gauge x #400 ea 04/29/22/32 (BD Sia 2nd Gen Pen Needle) blood pressure monitor #1 ea 04/12/23 lancets 33 gauge (TRUEplus Lancets) #100 ea 04/15/23 ipratropium 0.5 mg-albuterol 3 mg 3 ml inhalation RQ4H WHILE AWAKE 04/17/23 (2.5 mg base)/3 mL nebulization #3 mL soln Novolog FlexPen U-100 Insulin 100 5 - 10 unit (0.05 - 0.1 mL) subcut 07/15/23 unit/mL (3 mL) subcutaneous TID #15 mL (insulin aspart U-100) disposable gloves #1,000 ea 09/01/23 incomtinemce liner pads #60 ea 09/01/23 wipes #240 ea 09/01/23 montelukast 10 mg tablet 10 mg PO QPM 90 days #90 tabs 12/02/23 clotrimazole-betamethasone 1 1 appl topical BID 5 days #45 grams 12/23/23 %-0.05 % topical cream terconazole 0.8 % vaginal cream 1 appful vaginal BEDTIME 3 days 12/23/23 #20 grams folic acid 1 mg tablet 1 mg PO QAM 90 days #90 tabs 01/25/24 cholecalciferol (vitamin D3) 25 25 mcg PO DAILY 90 days #90 caps 01/26/24 mcg (1,000 unit) capsule calcium acetate(phosphat bind) 667 667 mg PO BID 90 days #180 caps 02/20/24 mg capsule losartan 25 mg tablet 25 mg PO DAILY 90 days #90 tabs 04/17/24 amlodipine 10 mg tablet 10 mg PO DAILY #30 tabs 06/02/24 atorvastatin 80 mg tablet 80 mg PO BEDTIME 90 days #90 tabs 06/07/24 gabapentin 300 mg capsule 300 mg PO BEDTIME 90 days #90 caps 06/22/24 blood-glucose sensor (FreeStyle #2 ea 06/23/24 [place] 3 Sensor device) hydralazine 25 mg tablet 25 mg PO TID 90 days #270 tabs 06/23/24 semaglutide 0.25 mg or 0.5 mg (2 0.5 mg (0.736 mL) subcut QWEEK 4 06/23/24 mg/3 mL) subcutaneous pen injector weeks #2.944 mL (Ozempic) blood-glucose meter,continuous #1 ea 06/26/24 (Dexcom G7 [employer]obile Accessories Installer) blood-glucose sensor (Dexcom G7 #3 ea 06/26/24 Sensor device) ferrous sulfate 325 mg (65 mg 325 mg PO .once a week 90 days #15 07/10/24 iron) tablet tabs omeprazole 40 mg capsule,delayed 40 mg PO DAILY #30 caps 07/19/24 release sucralfate 1 gram tablet 1 g PO BID PRN upper abdominal 07/19/24 pain #60 tabs insulin glargine U-300 conc 300 36 unit (0.12 mL) subcut DAILY 90 07/22/24 unit/mL (1.5 mL) subcutaneous pen days #10.8 mL (Toujeo SoloStar U-300 Insulin) budesonide-formoterol HFA 160 2 puff inhalation BID 30 days 08/07/24 mcg-4.5 mcg/actuation aerosol #10.2 grams inhaler (Symbicort) aspirin 81 mg tablet,delayed 81 mg PO BEDTIME #90 tabs 08/16/24 release cefuroxime axetil 500 mg tablet 500 mg PO BID #10 tabs 08/18/24 Allergies Allergy/AdvReac Type Severity Reaction Status Date / Time ibuprofen [From Motrin] Allergy Intermediate High Blood Verified 08/18/24 16:18 Pressure, Rash oxycodone [From Percocet] Allergy Intermediate Itching Verified 08/18/24 16:18 tirzepatide [From Mounjaro] AdvReac Severe Diarrhea Verified 08/18/24 16:18 Review of Systems Constitutional: Constitutional: Denies body ache(s), Denies chills and Denies headache(s) ENT: Denies headache(s) Musculoskeletal: Musculoskeletal: Reports arthralgias Integumentary/Breasts: Skin/Breast: Reports wounds Neurologic: Denies headache(s) REPLACED BY [facility] Past Medical History Medical History Acute exacerbation of CHF (congestive heart failure) Acute on chronic diastolic (congestive) heart failure Acute exacerbation of CHF (congestive heart failure) Acute respiratory failure with hypoxia Flash pulmonary edema Dyspnea Furuncle Vulvar itching Vaginal lump Pleural effusion Exocrine pancreatic insufficiency Renal cyst, acquired, right Back pain Vitamin D deficiency HLD (hyperlipidemia) JOSE (obstructive sleep apnea) 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 Aortic stenosis CKD (chronic kidney disease) stage 3, GFR 30-59 ml/min Dyslipidemia Diabetic polyneuropathy associated with type 2 diabetes mellitus Diabetic nephropathy associated with type 2 diabetes mellitus Chronic kidney disease Hypertension Asthma Thalamic pain syndrome GERD (gastroesophageal reflux disease) Morbid obesity Surgical History H/O aortic valve replacement History of breast lump/mass excision History of tubal ligation History of cholecystectomy Family History Family History Sister History of renal pelvis cancer Father Suicide Mother Lung disease Diabetes mellitus Social History Social History Household Members: Family Housing: House Do you presently have visiting nurse or other home services: Yes (trade clerk) Alcohol intake: never Comment: pt stays with pt. Patient Tobacco Use Status: Former Tobacco user Tobacco use type: Cigarette Years Smoked: 5 years e-Cigarette/Vaping Use: Never Used Second Hand Smoke Exposure: No Advance Directives: No Advance Directives Information Provided: Yes service: No Current occupational status: unemployed and disabled Gender identity: Female Cognitive needs: Yes Hearing needs: No Vision needs: No Physical Exam Vital Signs: Vital Signs: Last Vital Signs Temp 97.8 F 08/18/24 20:17 Pulse 74 08/18/24 20:17 Resp 16 08/18/24 20:17 BP 161/57 H 08/18/24 20:17 Pulse Ox 99 08/18/24 20:17 O2 Del Method Room Air 08/18/24 20:17 BMI result Body Mass Index 41.1 Const: General: healthy appearing, comfortable, no acute distress, alert and awake Nutritional Appearance: well nourished Orientation/consciousness: patient oriented x3 HEENT: Head: Yes normocephalic and Yes atraumatic Eyes: Eyelids: Yes eyelids normal Conjunctivae: conjunctivae normal Sclerae: sclerae normal Corneas: corneas normal Pupils: Equal, round and reactive pupils present EOM: EOMs intact bilaterally Neck: Neck: Yes full ROM Resp: Effort & Inspection: normal respiratory effort, able to speak in complete sentences and not labored Cardio: Rate: regular rate Rhythm: regular rhythm GI: Inspection: No distended Palpation (GI): Soft to palpation, not firm, nontender, no guarding and not rigid Skin: General skin exam: elasticity normal Neuro: General: patient oriented x3 Cranial nerves: Yes Equal, round and reactive pupils present and Yes Bilaterally intact EOM present Cognition (Neuro): normal cognition Extrem: Other: There is a minor skin tear to the left great toe just distal to the interphalangeal joint. There is no active bleeding. There appears to be a very small subungual hematoma. The patient still retains good range of motion with flexion and extension of the left 1st MTP and interphalangeal joints. There is no edema, wounds, tenderness to the left foot, ankle or knee Course Course Course Narrative: This is an RME performed by Soco Fenton CNP: Additional HPI, ROS, PE not included below will be deferred to primary provider. Patient is a 79-year-old female who presents emergency department for evaluation, reports about 1.5 hours prior to arrival a marble table had fallen striking her on the left great toe resulting in a laceration and pain. Reports that she is a diabetic. Unaware of the date of last tetanus vaccination. Exam: Decreased range of motion to the left great toe, laceration at the base of the nail active bleeding. Nonstick dressing applied in triage. Plan: XR, may require wound repair Medical Decision Making Medical Decision Making MDM Narrative: 79-year-old female with past medical history as documented above presents for evaluation of a left great toe injury. She has a very small skin tear, but no deep wounds or lacerations. She has a fracture to the distal phalanx. I did discuss with Orthopedics, Brian Olguin who agrees with antibiotics as the patient is a diabetic. The wound was closed with skin adhesive only. She will be able to follow up with the orthopedic office next week Differential Diagnosis Differential Diagnoses: The differential diagnosis associated with the presentation includes Left great toe pain Laceration Skin tear Toe fracture Independent Interpretation I performed an independent interpretation of an: Plain X-Ray (Of the left 1st distal phalanx of the toe) Radiology Impression Discussion of test interpretation with radiology: I have reviewed the radiologist's reading. Radiologist Impression: FINDINGS: Nondisplaced comminuted fracture of the distal phalanx of the first toe with surrounding soft tissue swelling. Moderate multifocal degenerative osteoarthritis. No osseous erosions. Calcaneal spurring. Extensive vascular calcifications. XR/XR foot LT min 3V IMPRESSION: Nondisplaced comminuted fracture of the distal phalanx of the first toe. Electronically signed by: Camille Jimenez MD 08/18/2024 05:13 PM [facility] Discharge Plan Discharge Clinical Impression: Fracture of great toe Patient Disposition: Home, Self-Care Instructions: Toe Fracture (ED), Post Surgical Shoe (ED) Additional Instructions: You have a fracture of your left big toe. Take the antibiotics twice daily for the next 5 days to prevent infection as there was a small skin tear over the area Call orthopedics on Wednesday at the number provided to schedule follow-up for next week Prescriptions: New cefuroxime axetil 500 mg tablet 500 mg PO BID Qty: 10 0RF No Action (DME) lancets [FreeStyle Lancets] 28 gauge misc See Rx Instructions .MEDSUPPLY Qty: 300 2RF Rx Instructions: 3 times a day (DME) pen needle, diabetic [BD Sia 2nd Gen Pen Needle] 32 gauge x 5/32 needle See Rx Instructions .MEDSUPPLY Qty: 400 4RF Rx Instructions: 5 times a day (DME) blood pressure monitor Kit See Rx Instructions .Route Qty: 1 0RF Rx Instructions: As directed (DME) lancets [TRUEplus Lancets] 33 gauge misc See Rx Instructions .Route Qty: 100 4RF Rx Instructions: As directed test 4 times a day insulin aspart U-100 [Novolog FlexPen U-100 Insulin] 100 unit/mL (3 mL) insulin pen 5 - 10 unit subcut TID Qty: 15 3RF (DME) wipes See Rx Instructions .Route .MEDSUPPLY Qty: 240 12RF Rx Instructions: As directed (DME) disposable gloves Misc See Rx Instructions .Route Qty: 1000 12RF Rx Instructions: As directed (DME) incomtinemce liner pads See Rx Instructions .Route .MEDSUPPLY Qty: 60 12RF Rx Instructions: As directed montelukast 10 mg tablet 10 mg PO QPM 90 Days Qty: 90 3RF folic acid 1 mg tablet 1 mg PO QAM 90 Days Qty: 90 3RF cholecalciferol (vitamin D3) 25 mcg (1,000 unit) capsule 25 mcg PO DAILY 90 Days Qty: 90 3RF calcium acetate(phosphat bind) 667 mg capsule 667 mg PO BID 90 Days Qty: 180 1RF losartan 25 mg tablet 25 mg PO DAILY 90 Days Qty: 90 0RF amlodipine 10 mg tablet 10 mg PO DAILY Qty: 30 2RF atorvastatin 80 mg tablet 80 mg PO BEDTIME 90 Days Qty: 90 1RF gabapentin 300 mg capsule 300 mg PO BEDTIME 90 Days Qty: 90 0RF (DME) FreeStyle [place] 3 Sensor Device See Rx Instructions .ROUTE .MEDSUPPLY Qty: 2 11RF Rx Instructions: Apply every 14 days As directed to monitor blood glucose hydralazine 25 mg tablet 25 mg PO TID 90 Days Qty: 270 1RF Ozempic 0.25 mg or 0.5 mg (2 mg/3 mL) pen injector 0.5 mg subcut QWEEK 28 Days Qty: 2.944 0RF (DME) Dexcom G7 Sensor Device See Rx Instructions .Route Qty: 3 5RF Rx Instructions: Use daily As directed to monitor blood glucose. Change q 10 days (DME) Dexcom G7 Automobile Accessories Installer Misc See Rx Instructions .Route Qty: 1 0RF Rx Instructions: use daily As directed to monitor blood glucose insulin glargine U-300 conc [Toujeo SoloStar U-300 Insulin] 300 unit/mL (1.5 mL) insulin pen 36 unit subcut DAILY 90 Days Qty: 10.8 1RF budesonide-formoterol [Symbicort] 160-4.5 mcg/actuation HFA aerosol inhaler 2 puff inhalation BID 30 Days Qty: 10.2 11RF aspirin 81 mg tablet,delayed release (DR/EC) 81 mg PO BEDTIME Qty: 90 0RF omeprazole 40 mg capsule,delayed release(DR/EC) 40 mg PO DAILY Qty: 30 0RF sucralfate 1 gram tablet 1 g PO BID PRN (Reason: upper abdominal pain) Qty: 60 0RF tobramycin-dexamethasone 0.3-0.1 % drops,suspension 1 drp ophthalmic (eye) QID ipratropium-albuterol 0.5 mg-3 mg(2.5 mg base)/3 mL Solution For Nebulization 3 ml inhalation RQ4H WHILE AWAKE Qty: 3 0RF torsemide 20 mg tablet 20 mg PO BID fluticasone propionate 50 mcg/actuation spray,suspension 1 spray intranasal DAILY PRN (Reason: Allergy Symptoms) (DME) blood-glucose meter [FreeStyle [place] Lite] Kit See Rx Instructions .ROUTE .MEDSUPPLY Qty: 1 Rx Instructions: As directed (DME) FreeStyle Lite Strips Strip See Rx Instructions .MEDSUPPLY Rx Instructions: 3times a day (DME) Oxygen Home Use Kit See Rx Instructions .Route Rx Instructions: As directed clotrimazole-betamethasone 1-0.05 % cream 1 appl topical BID 5 Days Qty: 45 0RF terconazole 0.8 % cream 1 appful vaginal BEDTIME 3 Days Qty: 20 0RF ferrous sulfate 325 mg (65 mg iron) tablet 325 mg PO .once a week 90 Days Qty: 15 1RF Referrals: Royal Kat MD [Physician] - (left great toe fracture) Interventions: ED Discharge Assessment Last Done: 08/18/24 20:17 Discharge Date/Time: 08/18/24 20:27 Print Language: Cymraes
[2024-08-18 18:48] VITALS: BP 161/57; PULSE 74; RESP 16; TEMP 36.6; O2SAT 99
[2024-08-18 20:17] VITALS: BP 161/57; PULSE 74; RESP 16; TEMP 36.6; O2SAT 99
== END 2024-08-18 20:27 | disposition home or self-care (01) ==
PROVIDERS: Emergency Provider Internal Medicine; PCP Internal Medicine
DX: S92.422A Displaced fracture of distal phalanx of left great toe, initial encounter for closed fracture (principal); W20.8XXA Other cause of strike by thrown, projected or falling object, initial encounter; Y93.9 Activity, unspecified; Y92.9 Unspecified place or not applicable; Y99.9 Unspecified external cause status; M79.675 Pain in left toe(s); E11.22 Type 2 diabetes mellitus with diabetic chronic kidney disease; I13.0 Hypertensive heart and chronic kidney disease with heart failure and stage 1 through stage 4 chronic kidney disease, or unspecified chronic kidney disease; N18.30 Chronic kidney disease, stage 3 unspecified; I50.9 Heart failure, unspecified; Z79.899 Other long term (current) drug therapy
CPT/HCPCS: 73630; 99282; 99283

== ENCOUNTER 2024-08-29 09:48 | Outpatient (AMB) | payer OTHER, SELFPAY ==
--- NOTE | 2024-08-29 10:11 | A.OFFVIS_ITS ---
Vital Signs 08/29/24 10:14 Height 4 ft 9 in Weight 191 lb 12.835 oz BMI 41.5 BP 132/76 Blood Pressure Location Lt brachial Position Sitting Pulse 67 Pulse Source Pulse Oximeter Pulse Oximetry (%) 98 Oxygen Delivery Method Room Air Intake Visit Reasons: Obstructive sleep apnea follow-up Ehs Teacher: Ehs Teacher offered & declined Accompanied by: Self / Same As Patient Allergies ibuprofen [From Motrin] Allergy (Intermediate, Verified 08/29/24 10:18) High Blood Pressure, Rash oxycodone [From Percocet] Allergy (Intermediate, Verified 08/29/24 10:18) Itching tirzepatide [From Mounjaro] Adverse Reaction (Severe, Verified 08/29/24 10:18) Diarrhea HPI Comments Details: The patient is a 79-year-old woman with a known history of asthma, severe aortic stenosis and morbid obesity who was admitted to the hospital the end of January with severe COVID-19 and acute respiratory failure. The patient had bilateral airspace disease the due to COVID. Course was complicated by renal failure requiring dialysis and anemia requiring blood transfusions. The patient recovered from a very serious case of COVID. She still complaining of shortness of breath specially with activity moderate in severity. She has significant aches and pains throughout her body. Moderate in severity. The patient also has significant fatigue and daytime drowsiness. She does have significant snoring noted by her daughter. Her [place] score is elevated 16/24. At this point the patient needs to undergo a sleep study. Will make arrangements for her to do so. In the meantime for her asthma she does have 1 inhaler. She does not know the name. She does not take it daily. The patient does need to be on maintenance inhaler this time. In the meantime the patient does have a severe aortic stenosis. She was supposed to have a surgical evaluation. But, then she became sick and was not able to follow through. Patient is concerned open heart surgery. She is wondering if any other alternatives such as the endovascular approach be an option for her specially with her worsening medical conditions. 10/31/2022 the patient is here for a pulmonary follow-up visit. The patient overall has been feeling better. She was evaluated over the phone back in July because about worsening exacerbation. She completed her medications and she is back to baseline. She is feeling better. She is not using the oxygen. Although wait and see a little bit more to make sure that she does not go back to using it. The patient has been on the inhalers with good effect. The of the a form although, she is having hard time with the powder inhalers is causing significant irritation of the mouth so therefore will stop the Trelegy and placed on Symbicort be more effective. Also to note the patient was admitted briefly to [facility] after developing hemorrhagic colitis and ultimately got better with antibiotics. 02/21/2024 the patient is here for a pulmonary follow-up visit. She has doing a lot better. She has not had to use the oxygen so therefore will discontinue it. She continues on respiratory therapy with good effect. Still getting winded. Also complaining of back pain. Also gets some sciatica discomfort that limits her activity. She does use a cane and also walker when she is little more stable on her feet. The patient otherwise is without any other complaints. Will have her get a chest x-ray. We did look at her CT scan of the chest that she had back in April 2023 which she was significantly sick. She had bilateral ground-glass opacities suggesting an ARDS picture. On examination she still has some minimal crackles at the bases suggesting some degree of scarring. If the chest x-ray is abnormal will go ahead and request a CT scan of the chest. If the patient continues to be symptomatic and the x-ray is nondiagnostic we may also consider getting a CT scan of the chest. 08/29/2024 the patient is here for a pulmonary follow-up visit. The patient overall has been doing well. Back in July she did have an episode of left- sided chest discomfort. Since we more musculoskeletal. She did undergo a chest x-ray that was without any acute disease. The patient has been trying [id number] remedies. Four. I did reassure her that does not appear to have any pulmonary manifestations. The patient did have a CT scan back in 2022 with significant airspace disease at that point she did have infection. The patient will need to get the Prevnar 20 vaccine today. She will get a flu shot and also has to get a booster for pertussis with her primary care doctor. She will follow-up in 6 months. If any issues arise she will call for an earlier assessment. 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 Aortic stenosis CKD (chronic kidney disease) stage 3, GFR 30-59 ml/min Dyslipidemia Diabetic polyneuropathy associated with type 2 diabetes mellitus Diabetic nephropathy associated with type 2 diabetes mellitus Chronic kidney disease Hypertension Asthma Thalamic pain syndrome GERD (gastroesophageal reflux disease) Morbid obesity Surgical History H/O aortic valve replacement History of breast lump/mass excision History of tubal ligation History of cholecystectomy Family History Sister History of renal pelvis cancer Father Suicide Mother Lung disease Diabetes mellitus Social History Household Members: Family Housing: House Do you presently have visiting nurse or other home services: 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 Patient Tobacco Use Status: Former Tobacco user Tobacco use type: Cigarette Years Smoked: 5 years e-Cigarette/Vaping Use: Never Used Second Hand Smoke Exposure: No service: No Current occupational status: unemployed and disabled Gender identity: Female Cognitive needs: Yes Hearing needs: No Vision needs: No Female Reproductive History Menstrual Age of Menarche: 10 Review of Systems Const Reports fatigue, Denies night sweats and Reports weight loss ENT Denies change in voice, Denies lip swelling, Denies mouth pain, Reports nasal congestion, Reports nasal discharge, Reports neck pain, Reports sore throat and Denies tongue swelling Card Denies chest pain and Reports dyspnea on exertion Resp Denies chest congestion, Reports cough and Reports dyspnea on exertion GI Denies abdominal pain Reports no additional complaints Musc Reports back pain, Reports myalgias, Reports arthralgias, Reports joint swelling, Reports limited range of motion and Reports neck pain Neuro Denies Neuro-related abnormal movements Psych Denies no additional complaints Endo Reports fatigue Luis Antonio/Lymph Denies easy bleeding and Denies lymphadenopathy Aller/Immun Denies lip swelling and Denies tongue swelling Physical Exam Vital Signs: Last Vital Signs Pulse 67 08/29/24 10:14 BP 132/76 08/29/24 10:14 Pulse Ox 98 08/29/24 10:14 Oxygen Delivery Method Room Air 08/29/24 10:14 BMI result Body Mass Index 41.5 Last Vital Signs Temp 98 F 04/17/23 12:00 Pulse 64 04/17/23 12:00 Resp 19 04/17/23 12:00 BP 134/67 04/17/23 12:00 Pulse Ox 93 04/17/23 12:00 O2 Del Method Oxymask 04/17/23 12:00 O2 Flow Rate 2.5 04/17/23 12:00 Oxygen Flow Rate 10 04/16/23 12:39 BMI result Body Mass Index 43.7 Const General: comfortable Orientation/consciousness: patient oriented x3 Neck Neck: Yes normal visual inspection, Yes full ROM and Yes no lymphadenopathy Chest Chest palpation & inspection: normal inspection of the chest Resp Effort & Inspection: able to speak in complete sentences Auscultation: diminished lung sounds Cardio Rate: regular rate Rhythm: regular rhythm Heart sounds: S1 normal heart sound present, S2 normal heart sound present and Murmur heart sound present GI Palpation (GI): Soft to palpation and nontender Auscultation: normal bowel sounds Skin General skin exam: rashes and/or lesions noted Neuro General: patient oriented x3 Immunizations pneumoc 20-dorys conj-dip cr(PF) 0.5 mL IM syringe Performing Provider: Everette Bean MD [place]forming [place] [facility] Administered by: Everette Bean MD on 08/29/24 10:41 Dose Route Admin Location Dispensed Lot Number Expiration Date NDC [employer] 0.5 mL IM Right Deltoid 0.5 mL [id number] 10/03/25 2259-2610-41 [employer] VIS Given Date VIS Provided VIS Publication Date 08/29/24 Single Vaccine 21 Eligibility Eligibility Date Funding Source Not [facility] Eligible 08/29/24 Private Assessment & Plan Assessment & Plan (1) JOSE (obstructive sleep apnea): Code(s): G47.33 - Obstructive sleep apnea (adult) (pediatric) Category: Medical (2) Asthma: Code(s): J45.909 - Unspecified asthma, uncomplicated Category: Medical Qualifiers: Asthma complication type: uncomplicated Asthma persistence: persistent Asthma severity: moderate Qualified Code(s): J45.40 - Moderate persistent asthma, uncomplicated (3) Aortic stenosis: Code(s): I35.0 - Nonrheumatic aortic (valve) stenosis Category: Medical Qualifiers: Cardiac valve disease etiology: nonrheumatic Qualified Code(s): I35.0 - Nonrheumatic aortic (valve) stenosis (4) Dyspnea: Code(s): R06.00 - Dyspnea, unspecified Category: Medical Qualifiers: Dyspnea type: dyspnea on exertion Qualified Code(s): R06.09 - Other forms of dyspnea (5) Back pain: Code(s): M54.9 - Dorsalgia, unspecified Category: Medical Qualifiers: Back pain location: low back pain Plan continue Symbicort discontinued oxygen positional therapy weight management Short-acting beta agonist as needed CXR 07/2024 is ok F/U 8-10 months Orders: Orders Pneumococcal 20 Immunization Today Z23 - Encounter for immunization Coding Level of Care Code Est Pt Level 4 (98082) Diagnoses JOSE (obstructive sleep apnea) G47.33 Moderate persistent asthma without complication J45.40 Asthma complication type: uncomplicated Asthma persistence: persistent Asthma severity: moderate Nonrheumatic aortic valve stenosis I35.0 Cardiac valve disease etiology: nonrheumatic Dyspnea on exertion R06.09 Dyspnea type: dyspnea on exertion Back pain M54.9 Back pain location: low back pain Time Spent (min) 16
[2024-08-29 10:14] VITALS: BP 132/76; PULSE 67; O2SAT 98; BMI 41.5
== END 2024-08-29 10:38 | disposition home or self-care (01) ==
PROVIDERS: PCP Internal Medicine; Visit Provider Hospitalist
DX: G47.33 Obstructive sleep apnea (adult) (pediatric) (principal); J45.40 Moderate persistent asthma, uncomplicated; I35.0 Nonrheumatic aortic (valve) stenosis; R06.09 Other forms of dyspnea; M54.9 Dorsalgia, unspecified; Z23 Encounter for immunization
CPT/HCPCS: 99214

== ENCOUNTER → 2024-08-29 09:48 | Outpatient (BNVA) | payer OTHER, SELFPAY | PROVIDERS: PCP Internal Medicine; Visit Provider Hospitalist | DX: J45.40 Moderate persistent asthma, uncomplicated (principal); G47.33 Obstructive sleep apnea (adult) (pediatric); E66.01 Morbid (severe) obesity due to excess calories; I35.0 Nonrheumatic aortic (valve) stenosis; R06.09 Other forms of dyspnea; M54.9 Dorsalgia, unspecified; Z23 Encounter for immunization; Z68.41 Body mass index [BMI] 40.0-44.9, adult; Z86.16 Personal history of COVID-19 | CPT/HCPCS: 90471; 90677; 99212 ==

== ENCOUNTER 2024-09-04 10:13 | Outpatient (AMB) | payer OTHER, SELFPAY ==
--- NOTE | 2024-09-04 10:18 | A.OFFVIS_ITS ---
Vital Signs 09/04/24 10:43 Height 4 ft 9 in Weight 191 lb BMI 41.3 Intake Visit Reasons: FC-left great toe fx, DOI 08/18/24 Intake Note: Louis a 79 year old female who presents today with her daughter for an ER follow up of left great toe fx, DOI 08/18/24. Patient reports that she dropped a table onto her left great toe, she [place] [facility] [place]. X-rays were taken and skin adhesive was use to close a laceration at the base of the nail. She was also prescribed antibiotics. Currently is not having much pain today when she walked in. Senior Cyber Security Analyst Required: Yes Senior Cyber Security Analyst Services: Senior Cyber Security Analyst Offered & Declined (Her Daughter is going to translate) Accompanied by: Daughter Allergies ibuprofen [From Motrin] Allergy (Intermediate, Verified 08/29/24 10:18) High Blood Pressure, Rash oxycodone [From Percocet] Allergy (Intermediate, Verified 08/29/24 10:18) Itching tirzepatide [From Mounjaro] Adverse Reaction (Severe, Verified 08/29/24 10:18) Diarrhea HPI HPI FC-left great toe fx, DOI 08/18/24: Details: 79-year-old female who presents to the office today with her daughter for an evaluation of left great toe injury, 08/18/24. She reports she dropped a table onto her left great toe. She was seen at ER the same day where x-rays were performed, antibiotics was prescribed and a skin adhesive was used to close a laceration at the base of the nail. She currently states she does not have much pain in her toe. [facility] Medical History Acute exacerbation of CHF (congestive heart failure) Acute on chronic diastolic (congestive) heart failure Acute exacerbation of CHF (congestive heart failure) Acute respiratory failure with hypoxia Flash pulmonary edema Dyspnea Furuncle Vulvar itching Vaginal lump Pleural effusion Exocrine pancreatic insufficiency Renal cyst, acquired, right Back pain Vitamin D deficiency HLD (hyperlipidemia) JOSE (obstructive sleep apnea) [id number] syndrome Aortic stenosis CKD (chronic kidney disease) stage 3, GFR 30-59 ml/min Dyslipidemia Diabetic polyneuropathy associated with type 2 diabetes mellitus Diabetic nephropathy associated with type 2 diabetes mellitus Chronic kidney disease Hypertension Asthma Thalamic pain syndrome GERD (gastroesophageal reflux disease) Morbid obesity Surgical History H/O aortic valve replacement History of breast lump/mass excision History of tubal ligation History of cholecystectomy Family History Sister History of renal pelvis cancer Father Suicide Mother Lung disease Diabetes mellitus Social History Household Members: Family Housing: House Do you presently have visiting nurse or other home services: 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 Patient Tobacco Use Status: Former Tobacco user Tobacco use type: Cigarette Years Smoked: 5 years e-Cigarette/Vaping Use: Never Used Second Hand Smoke Exposure: No service: No Current occupational status: unemployed and disabled Gender identity: Female Cognitive needs: Yes Hearing needs: No Vision needs: No Female Reproductive History Menstrual Age of Menarche: 10 Review of Systems Const All systems reviewed & are unremarkable except as noted in HPI and below Physical Exam Vital Signs: BMI result Body Mass Index 41.3 Const General: cooperative, healthy appearing, comfortable, no acute distress, well developed and alert Orientation/consciousness: patient oriented x3 HEENT Head: Yes normal to inspection, Yes normocephalic and Yes atraumatic Eyes General: appearance normal, both eyes and all related structures Resp Effort & Inspection: normal respiratory effort and able to speak in complete sentences Cardio Rate: regular rate Peripheral pulses: Peripheral pulses 2+ throughout GI Palpation (GI): Soft to palpation Skin Lesions: no lesions Rashes: no rashes Neuro General: patient oriented x3 Extrem Other: Left great toe: There is a laceration which is clean, dry and intact. Mild tenderness to palpation. No evidence of infection. NVI. Results Reviewed Results Reviewed: XR foot LT min 3V IMPRESSION: Nondisplaced comminuted fracture of the distal phalanx of the first toe. Assessment & Plan Assessment & Plan (1) Fracture of great toe: Code(s): S92.403A - Displaced unspecified fracture of unspecified great toe, initial encounter for closed fracture Category: Medical Plan I did encourage cleaning the area with warm soapy water twice a day. She can continue to use the postop shoe for ambulation weight bearing as tolerated. She can transition to a regular street shoe as symptoms allow. If she has concerns of infection such as increased redness, drainage or pain, she will contact the office or PCP to be evaluated. Patient Instructions: Scribed for Jose Ramon Rome PA-C, by Deshawn Garcia medical radiation tech, on 09/04/2024 at 10:30 AM EST.? I, Jose Ramon Rome PA-C, have personally reviewed and agree with the information entered by the scribe. Coding Level of Care Code New Pt Level 3 (17952) Complex EM visit Add On G2681 Diagnoses Fracture of great toe S92.403A
[2024-09-04 10:43] VITALS: BMI 41.3
== END 2024-09-04 11:14 | disposition home or self-care (01) ==
PROVIDERS: PCP Internal Medicine; Visit Provider Physician Assistant
DX: S92.403A Displaced unspecified fracture of unspecified great toe, initial encounter for closed fracture (principal)
CPT/HCPCS: 99203; G2211

== ENCOUNTER → 2024-09-04 10:13 | Outpatient (BNVA) | payer OTHER, SELFPAY | PROVIDERS: PCP Internal Medicine; Visit Provider Physician Assistant | DX: S92.425A Nondisplaced fracture of distal phalanx of left great toe, initial encounter for closed fracture (principal); W20.8XXA Other cause of strike by thrown, projected or falling object, initial encounter; Y93.89 Activity, other specified; Y92.9 Unspecified place or not applicable; Y99.9 Unspecified external cause status | CPT/HCPCS: 99202 ==

== ENCOUNTER 2024-09-05 08:16 | Outpatient (REF) | payer OTHER, SELFPAY ==
[2024-09-05 10:24] LABS: Blood Urea Nitrogen 25 mg/dL (9-16); Estimated Glomerular Filt Rate 32
== END 2024-09-05 08:17 | disposition home or self-care (01) ==
LOC: HO.LAB 08:16
PROVIDERS: PCP Internal Medicine; Visit Provider Radiology Vascular & Interventional Radiology
DX: R79.9 Abnormal finding of blood chemistry, unspecified (principal); R94.4 Abnormal results of kidney function studies; E11.42 Type 2 diabetes mellitus with diabetic polyneuropathy
CPT/HCPCS: 36415; 82565; 84520; 99211

== ENCOUNTER 2024-09-05 09:42 | Outpatient (AMB) | payer OTHER, SELFPAY ==
--- NOTE | 2024-09-05 09:57 | MHC.AMDMED ---
Intake Intake Visit Reasons: DM-confirmed Ribbon Cleaner Required: Yes Accompanied by: Daughter Allergies ibuprofen [From Motrin] Allergy (Intermediate, Verified 08/29/24 10:18) High Blood Pressure, Rash oxycodone [From Percocet] Allergy (Intermediate, Verified 08/29/24 10:18) Itching tirzepatide [From Mounjaro] Adverse Reaction (Severe, Verified 08/29/24 10:18) Diarrhea HPI Comprehensive Diabetes Asmnt Most Recent Diabetes Results: Creatinine 1.63 mg/dL (0.5-1.4) H 07/19/24 Blood Urea Nitrogen 25 mg/dL (9-16) H 07/19/24 Sodium 143 mmol/L (135-145) 07/19/24 Potassium 3.8 mmol/L (3.3-5.1) 07/19/24 Chloride 103 mmol/L (96-108) 07/19/24 Carbon Dioxide 30 mmol/L (22-29) H 07/19/24 Calcium 9.8 mg/dL (8.4-10.2) 07/19/24 AST 21 U/L (5-31) 07/19/24 ALT 19 U/L (0-31) 07/19/24 Total Protein 7.3 g/dL (6.5-8.0) 07/19/24 Albumin 3.6 g/dL (3.5-5.0) 07/19/24 [facility] Medical History Acute exacerbation of CHF (congestive heart failure) Acute on chronic diastolic (congestive) heart failure Acute exacerbation of CHF (congestive heart failure) Acute respiratory failure with hypoxia Flash pulmonary edema Dyspnea Furuncle Vulvar itching Vaginal lump Pleural effusion Exocrine pancreatic insufficiency Renal cyst, acquired, right Back pain Vitamin D deficiency HLD (hyperlipidemia) JOSE (obstructive sleep apnea) [id number] syndrome Aortic stenosis CKD (chronic kidney disease) stage 3, GFR 30-59 ml/min Dyslipidemia Diabetic polyneuropathy associated with type 2 diabetes mellitus Diabetic nephropathy associated with type 2 diabetes mellitus Chronic kidney disease Hypertension Asthma Thalamic pain syndrome GERD (gastroesophageal reflux disease) Morbid obesity Surgical History H/O aortic valve replacement History of breast lump/mass excision History of tubal ligation History of cholecystectomy Family History Sister History of renal pelvis cancer Father Suicide Mother Lung disease Diabetes mellitus Social History Household Members: Family Housing: House Do you presently have visiting nurse or 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 Patient Tobacco Use Status: Former Tobacco user Tobacco use type: Cigarette Years Smoked: 5 years e-Cigarette/Vaping Use: Never Used Second Hand Smoke Exposure: No service: No Current occupational status: unemployed and disabled Gender identity: Female Cognitive needs: Yes Hearing needs: No Vision needs: No Female Reproductive History Menstrual Age of Menarche: 10 Assessment & Plan Assessment & Plan (1) Diabetic polyneuropathy associated with type 2 diabetes mellitus: Code(s): E11.42 - Type 2 diabetes mellitus with diabetic polyneuropathy Plan: Patient at visit to set up an insert Dexcom G7 Instructed patient sensors water proof you can shower, or swim do not submerge sensor in water for over 30 minutes Is sensor falls off cannot put back in you need to replace sensor, customer service number given to patient for sensor replacement Sensor placed on the back of Left arm Patient left visit with sensor in warmup Reviewed how to interpret trend arrows Reminded patient that to check finger sticks if symptoms do not match sensor reading. Discussed lag time between finger stick and sensor data.? Instructed patient she should always keep blood glucometer for backup testing if needed Reviewed delay of CGM from fingersticks Reminded pt that if symptoms do not match sensor still needs to check fingersticks. Portions of this note were created using voice recognition software, please excuse any words or phrases that may have been misinterpreted. Patient Instructions: Instrucciones para el paciente: CGM proporciona informaci?n sobre el control de la glucosa en naila a lo ruben del d?a, incluidas la hiperglucemia y la hipoglucemia. Contin?e controlando la glucosa en naila seg?n las instrucciones. Siga las pautas de nutrici?n proporcionadas. Informe cualquier molestia de inmediato al proveedor de atenci?n m?dica. Mantente ludwin hidratado. Puede ba?arse, ducharse, nadar y hacer ejercicio mientras usa el sensor de glucosa. No sumerja el sensor de glucosa en agua ming m?s de 30 minutos. Retire el sensor para luigi resonancia magn?daniel o luigi tomograf?a computarizada. Evite la m?quina de william X en los aeropuertos: retire el sensor o solicite la varita Coding Level of Care Code Est Pt Level 1 (25151) Diagnoses Diabetic polyneuropathy associated with type 2 diabetes mellitus E11.42
== END 2024-09-05 10:26 | disposition home or self-care (01) ==
PROVIDERS: PCP Internal Medicine; Visit Provider Registered Nurse Diabetes Educator
DX: E11.42 Type 2 diabetes mellitus with diabetic polyneuropathy (principal)

== ENCOUNTER 2024-11-14 07:15 | Outpatient (REF) | payer OTHER, SELFPAY ==
[2024-11-14 07:50] LABS: MANUAL DIFF FLAG NO
[2024-11-14 08:20] LABS: Basophils Absolute Auto 0.1 X10*3/uL (0.0-0.2); Basophils Percent Auto 0.8 % (0-2); Eosinophils Absolute Auto 0.4 X10*3/uL (0.0-0.4); Eosinophils Percent Auto 4.3 % (0-4); Hematocrit 36.3 % (37.0-47.0); Hemoglobin 11.7 g/dl (12.0-16.0); Imm Gran Abs Auto 0.02 X10*3/uL (0.00-0.03); Imm Gran Pct Auto 0.2 % (0.0-0.4); Lymphocytes Absolute Auto 2.2 X10*3/uL (1.2-4.9); Lymphocytes Percent Auto 25.6 % (20-40); Mean Corpuscular HGB Conc 32.2 g/dl (31.0-35.0); Mean Corpuscular Hemoglobin 25.7 pg (27.0-33.0); Mean Corpuscular Volume 79.6 fL (80.0-98.0); Mean Platelet Volume 9.7 fL (9.4-12.3); Monocytes Absolute Auto 0.6 X10*3/uL (0.1-1.2); Neutrophils Absolute Auto 5.4 x10*3/uL (2.0-8.3); Neutrophils Percent Auto 62.1 % (45-73); Platelet Count 352 X10*3/uL (160-400); Red Blood Count 4.56 X10*6/uL (4.20-5.50); Red Cell Distribution Width 14.6 % (11.0-16.0); White Blood Count 8.8 X10*3/uL (4.8-10.8)
[2024-11-14 08:40] LABS: Appearance Urine Clear; Color Urine Yellow; Glucose Urine UA Negative (Negative); Leukocyte Esterase Urine Small (1+) (Negative); Nitrite Urine Negative (Negative); PH 6.5 (5.0-9.0); Specific Gravity - Urine 1.015 (1.005-1.025); UMIC TRIGGER UACC YES; Urine Blood Negative (Negative); Urine Ketones Negative (Negative); Urine Protein 300 (3+) mg/dL (Neg-Trace)
[2024-11-14 08:43] LABS: Bacteria Urine None Seen (None Seen); Hyaline Casts Urine 0-2 /LPF (0-2); RBC Urine 0-2 /HPF (0-2); UACC Culture Trigger YES
[2024-11-14 09:11] LABS: Estimated Average Glucose 166 mg/dL; Hemoglobin A1c % 7.4 % (<6.0); Total Hemoglobin (HGBA1C) 3075.4876 umol/L
[2024-11-14 09:15] LABS: Alanine Aminotransferase 21 U/L (0-31); Albumin Level 3.3 g/dL (3.5-5.0); Alkaline Phosphatase 154 U/L (39-117); Anion Gap 10 (12-20); Aspartate Amino Transferase 20 U/L (5-31); Bilirubin Total 0.3 mg/dL (0.0-1.0); Blood Urea Nitrogen 36 mg/dL (9-16); Calcium 9.2 mg/dL (8.4-10.2); Carbon Dioxide 26 mmol/L (22-29); Chloride 110 mmol/L (96-108); Cholesterol 172 mg/dL (<200); Estimated Glomerular Filt Rate 46; Glucose Fasting 131 mg/dL (60-99); HDL Cholesterol 42 mg/dL (>40); Iron 45 mcg/dL (30-160); LDL Cholesterol Calculated 98 mg/dL (<100); Magnesium 2.2 mg/dL (1.6-2.6); Percent Iron Saturation 20 % (15-50); Phosphorus 3.5 mg/dL (2.7-4.5); Potassium 3.9 mmol/L (3.3-5.1); Sodium 142 mmol/L (135-145); Total Iron Binding Capacity 221 mcg/dL (228-428); Triglycerides 161 mg/dL (<150); Unsaturated Iron Binding 176 ug/dL
[2024-11-14 09:22] LABS: Alanine Aminotransferase 19 U/L (0-31); Albumin Level 3.3 g/dL (3.5-5.0); Anion Gap 12 (12-20); Aspartate Amino Transferase 21 U/L (5-31); Bilirubin Total 0.4 mg/dL (0.0-1.0); Blood Urea Nitrogen 35 mg/dL (9-16); Calcium 9.4 mg/dL (8.4-10.2); Carbon Dioxide 27 mmol/L (22-29); Chloride 109 mmol/L (96-108); Estimated Glomerular Filt Rate 44; Glucose Fasting 131 mg/dL (60-99); Potassium 3.9 mmol/L (3.3-5.1); Sodium 144 mmol/L (135-145); Total Protein 7.1 g/dL (6.5-8.0)
[2024-11-14 09:22] LABS: Creatinine Urine 50.58 mg/dL
[2024-11-14 09:24] LABS: Microalbum/Creatinine Ratio Ur 2570.1 ug/mg cr (<30)
[2024-11-14 09:37] LABS: Alkaline Phosphatase 152 U/L (39-117)
[2024-11-14 09:46] LABS: Vitamin D 25-OH Total 24.9 ng/mL (>30)
[2024-11-14 09:47] LABS: Folate 15.2 ng/mL (> or = 4.0); Vitamin B12 290 pg/mL (200-900)
[2024-11-15 13:59] LABS: Calcium, Ionized 5.4 mg/dL (4.7-5.5)
[2024-11-16 17:23] LABS: Calcium, Random Urine 1.7 mg/dL
[2024-11-18 15:34] LABS: NT-proBNP 206 pg/mL (<450)
== END 2024-11-14 07:16 | disposition home or self-care (01) ==
LOC: HO.LAB 07:15
PROVIDERS: Physician Assistant; PCP Internal Medicine; Visit Provider Internal Medicine
DX: Z13.89 Encounter for screening for other disorder (principal)
CPT/HCPCS: 36415; 80053; 80061; 81001; 82043; 82306; 82310; 82330; 82570; 82607; 82746; 83036; 83540; 83735; 83880; 84100; 85025; 87086

== ENCOUNTER 2024-11-14 10:14 | Outpatient (AMB) | payer OTHER, SELFPAY ==
--- NOTE | 2024-11-14 10:26 | A.OFFPC_ITS ---
Vital Signs 11/14/24 10:41 Height 4 ft 9 in Weight 193 lb BMI 41.8 BP 162/74 H Blood Pressure Location Lt brachial Position Sitting Intake Visit Reasons: dm Intake Note: Patient here for a follow up DM Cardiac Cath Lab Radiology Technologist Required: Yes Cardiac Cath Lab Radiology Technologist Language: Lidding Machine Operator Name: Shelby Golden MD Information Interpreted: non-clinical & clinical Accompanied by: Daughter Allergies ibuprofen [From Motrin] Allergy (Intermediate, Verified 11/14/24 10:55) High Blood Pressure, Rash oxycodone [From Percocet] Allergy (Intermediate, Verified 11/14/24 10:55) Itching tirzepatide [From Mounjaro] Adverse Reaction (Severe, Verified 11/14/24 10:55) Diarrhea Medication List - Last Reconciled 11/14/24 by Shelby Golden MD amlodipine 10 mg PO DAILY aspirin 81 mg PO BEDTIME 90 days atorvastatin 80 mg PO BEDTIME 90 days blood pressure monitor As directed blood sugar diagnostic (FreeStyle Lite Strips) 3times a day blood-glucose meter (FreeStyle [place] Lite kit) As directed blood-glucose meter,continuous (Dexcom G7 Dance Instructor) use daily As directed to monitor blood glucose blood-glucose sensor (FreeStyle [place] 3 Sensor device) Apply every 14 days As directed to monitor blood glucose blood-glucose sensor (Dexcom G7 Sensor device) Use daily As directed to monitor blood glucose. Change q 10 days budesonide-formoterol 160-4.5 mcg/actuation (Symbicort) 2 puffs inhalation BID 30 days calcium acetate(phosphat bind) 667 mg PO BID 90 days cefuroxime axetil 500 mg PO BID cholecalciferol (vitamin D3) 25 mcg PO DAILY 90 days clotrimazole-betamethasone 1-0.05 % 1 appl topical BID 5 days disposable gloves As directed ferrous sulfate 325 mg PO .once a week 90 days fluticasone propionate 50 mcg/actuation 1 spray intranasal DAILY PRN 30 days folic acid 1 mg PO QAM 90 days FreeStyle Lancets (lancets) 3 times a day NS gabapentin 300 mg PO BEDTIME 90 days hydralazine 25 mg PO TID 90 days [incomtinemce liner pads As directed] insulin glargine U-300 conc (Toujeo SoloStar U-300 Insulin) 36 units (0.12 mL) subcut DAILY 90 days ipratropium-albuterol 0.5 mg-3 mg(2.5 mg base)/3 mL 3 mL inhalation RQ4H WHILE AWAKE lancets (TRUEplus Lancets) As directed test 4 times a day losartan 25 mg PO DAILY 90 days montelukast 10 mg PO QPM 90 days Novolog FlexPen U-100 Insulin (insulin aspart U-100) 5 - 10 units (0.05 - 0.1 mL) subcut TID NS omeprazole 40 mg PO DAILY Oxygen Home Use As directed pen needle, diabetic (BD Sia 2nd Gen Pen Needle) 5 times a day semaglutide (Ozempic) 0.5 mg (0.736 mL) subcut QWEEK 4 weeks sucralfate 1 g PO BID PRN terconazole 0.8% 1 appful vaginal BEDTIME 3 days tobramycin-dexamethasone 0.3-0.1 % 1 drp ophthalmic (eye) QID torsemide 20 mg PO BID [wipes As directed] Tobacco use date assessed: 11/14/24 Fall risk assessment: No Falls in past year Last assessed Fall Risk: 11/14/24 Dental Screening Dental Screen Date: 11/14/24 Did you have a dental visit in the last 12 months?: No Did you have a dental problem in the last 6 months where you did not have access to dental care?: No Was dental information given to patient?: Patient has dentist HPI HPI Comments History of Present Illness Details The patient is a 79-year-old female presenting with hypertension, hyperlipidemia, type 2 diabetes mellitus, and proteinuria. Hypertension has been reported with episodic high readings; medications include amlodipine, losartan, and hydralazine taken thrice daily. The patient's hyperlipidemia is managed with atorvastatin, and recent lab results show LDL levels at 98 mg/dL, slightly elevated from the recommended levels for patients with diabetes. The patient has been managing diabetes with Ozempic, lasadinsulin, and metformin, noting an A1c of 7.4%, slightly above the target level. Protein levels in the urine have been noted to be high, and the patient is under the care of a cat operator for this condition. The patient is allergic to Motrin, Percocet, and Mounjaro. The patient reports intermittent discomfort from proteinuria symptoms, such as foamy urine. Previous management changes include adjustment and potential increases in dosages for better control. She also has COPD follow by pulmonology, congestive heart failure follow by cardiology and chronic kidney disease follow by Nephrology. She is morbidly obese with a BMI of 41.8 and was advised to do diet and exercise to reach BMI goal less than 30. Has hyperparathyroidism secondary to chronic kidney disease. 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 Aortic stenosis CKD (chronic kidney disease) stage 3, GFR 30-59 ml/min Dyslipidemia Diabetic polyneuropathy associated with type 2 diabetes mellitus Diabetic nephropathy associated with type 2 diabetes mellitus Chronic kidney disease Hypertension Asthma Thalamic pain syndrome GERD (gastroesophageal reflux disease) Morbid obesity Surgical History H/O aortic valve replacement History of breast lump/mass excision History of tubal ligation History of cholecystectomy Family History Sister History of renal pelvis cancer Father Suicide Mother Lung disease Diabetes mellitus Social History Household Members: Family Housing: House Do you presently have visiting nurse or other home services: Yes (ultimate hoops referee) Alcohol intake: never Comment: pt stays with pt. Patient Tobacco Use Status: Former Tobacco user Tobacco use type: Cigarette Years Smoked: 5 years e-Cigarette/Vaping Use: Never Used Second Hand Smoke Exposure: No service: No Current occupational status: unemployed and disabled Gender identity: Female Cognitive needs: Yes Hearing needs: No Vision needs: No Female Reproductive History Menstrual Age of Menarche: 10 Questionnaire PHQ-9 Over the last 2 weeks, how often have you been bothered by any of the following problems? 1. Little interest or pleasure in doing things: not at all 2. Feeling down, depressed, or hopeless: not at all 3. Trouble falling or staying asleep, or sleeping too much: not at all 4. Feeling tired or having little energy: not at all 5. Poor appetite or overeating: not at all 6. Feeling bad about yourself - or that you are a failure or have let yourself or your family down: not at all 7. Trouble concentrating on things, such as reading the newspaper or watching television: not at all 8. Moving or speaking so slowly that other people could have noticed. Or the opposite - being so fidgety or restless that you have been moving around a lot more than usual: not at all 9. Thoughts that you would be better off or of hurting yourself in some way: not at all Total score: 0 Depression Screening Interpretation: Negative Depression Screening Done: Yes 14709 - PHQ-9 Billing: Yes Source: Developed by Drs. Farhad Murdock, Caron Elkins, El Esqueda and colleagues, with an educational susanne from [employer]. Thrive Questionnaire Date Thrive assessed: 11/14/24 I am a: Patient What is your living situation today?: I have a steady place to live Within the past 12 months, did the food you bought not last and you didn't have the money to get more?: Never true Within the past 12 months, did you worry whether your food would run out before you got money to buy more?: Never true Do you have trouble paying for medicines?: No Do you have trouble getting transportation to medical appointments?: No Do you have trouble paying your heating and electricity bill?: No Do you have trouble taking care of your child, family member or friend?: No Do you have trouble with day-to-day activities such as bathing, preparing meals, shopping, managing finances, etc.?: No Are you currently unemployed and looking for a job?: No Are you interested in more education?: No Please select the resources that you would like help with: None Currently or been in a relationship where the following occur: No concerns reported THRIVE Score: 0 AUDIT C Alcohol Use Questionnaire (AUDIT-C) 1. How often do you have a drink containing alcohol?: Never Total Score: 0 Score Reviewed/Action Taken: No JES-7 AMB Questionnaire JES-7 Date JES - 7 assessed: 11/14/24 Feeling nervous, anxious, or on edge: 0 = Not at all Not being able to stop or control worryin = Not at all Worrying too much about different things: 0 = Not at all Trouble relaxin = Not at all Being so restless that it is hard to sit still: 0 = Not at all Becoming easily annoyed or irritable: 0 = Not at all Feeling afraid as if something awful might happen: 0 = Not at all Total JES-7 score (0-4 normal; 5-9 mild; 10-14 moderate; 15-21 severe): 0 Source: Developed by Drs. Farhad Murdock, Caron Elkins, El Esqueda and colleagues, with an educational susanne from [employer]. JES-7 Assessment Billing JES-7 Assessment Tool: JES-7 Assessment 63126 Review of Systems Const All systems reviewed & are unremarkable except as noted in HPI and below Card Denies chest pain at rest, Denies chest pain with activity, Denies edema, Denies irregular heart rhythm, Denies claudication, Denies dyspnea, Denies dyspnea on exertion, Denies orthopnea, Denies paroxysmal nocturnal dyspnea and Denies slow heart rate Resp Denies cough, Denies dyspnea and Denies dyspnea on exertion GI Denies abdominal pain, Denies change in bowel habits, Denies excessive flatus, Denies nausea and Denies vomiting Denies urinary incontinence, Denies urinary hesitancy and Denies urinary urgency Musc Denies abnormal gait, Denies atrophy, Denies deformity and Denies limited range of motion Skin/Breast Denies bleeding lesions, Denies changing lesions and Denies rash Neuro Denies abnormal gait, Denies behavioral changes and Denies lack of coordination Psych Denies behavioral changes Physical exam (Primary Care) Vital Signs: Last Vital Signs BP 162/74 H 11/14/24 10:41 BMI result Body Mass Index 41.8 Tobacco/Smoking Status: Tobacco use Status Tobacco use date assessed 11/14/24 11/14/24 10:48 Patient Tobacco Use Status Former Tobacco user 11/14/24 10:26 Tobacco use type Cigarette 11/14/24 10:26 e-Cigarette/Vaping Use Never Used 11/14/24 10:26 PHQ-9: PHQ-9 Score PHQ-9: Total score 0 11/14/24 13:40 Depression Screening Interpretation: Negative Thrive Assessment: Date of Thrive Assessment Date Thrive assessed 11/14/24 11/14/24 10:48 Currently or been in a relationship where the following occur: No concerns reported Resp Effort & Inspection: normal respiratory effort Auscultation: clear to auscultation bilaterally Cardio Jugular venous distension: no JVD Rate: regular rate Rhythm: regular rhythm Heart sounds: S1 normal heart sound present and S2 normal heart sound present Extrem General: Yes full ROM Office Procedures Flu Questionnaire Does the patient have a severe egg allergy?: No Does the patient have severe life threatening allergies?: No Does the patient have a fever or illness today?: No Has the patient ever had Guillain-[place] Syndrome?: No Has the patient ever had any past reaction to a flu shot?: No Immunizations Fluarix Triv [id number] (PF) 45 mcg (15 mcg x 3)/0.5 mL IM syringe Performing Provider: Shelby Golden MD [facility] Administered by: SEFERINO Simon on 11/14/24 11:15 Dose Route Admin Location Dispensed Lot Number Expiration Date NDC Abrasive Coating Machine Operator 0.5 mL IM Left Deltoid 0.5 mL [id number] 04/02/25 81292-841-65 Floobits 2 VIS Given Date VIS Provided VIS Publication Date 11/14/24 Single Vaccine 21 Eligibility Eligibility Date Funding Source Not [facility] Eligible 11/14/24 Private Coding Level of Care Code Est Pt Level 4 (42407) Complex EM visit Add On G2211 Diagnoses Hyperparathyroidism E21.3 CKD stage 3b, GFR 30-44 ml/min N18.32 Hyperlipidemia LDL goal <70 E78.5 Mild major depression F32.0 COPD (chronic obstructive pulmonary disease) J44.9 Chronic systolic congestive heart failure I50.22 Heart failure chronicity: chronic Heart failure type: systolic Morbid obesity with BMI of 40.0-44.9, adult E66.01; Z68.41 Uncontrolled type 2 diabetes mellitus with chronic kidney disease, with long- term current use of insulin E11.22; E11.65; Z79.4 Essential hypertension I10 Additional Codes JES-7 Assessment Billing - JES-7 Assessment Tool: JES-7 Assessment 48669 ([id number]) PHQ-9 - 69915 - PHQ-9 Billing: Yes ([id number]) Time Spent (min) 25 Assessment & Plan Assessment & Plan (1) Hyperparathyroidism: Code(s): E21.3 - Hyperparathyroidism, unspecified Category: Medical (2) CKD stage 3b, GFR 30-44 ml/min: Code(s): N18.32 - Chronic kidney disease, stage 3b Category: Medical (3) Hyperlipidemia LDL goal <70: Code(s): E78.5 - Hyperlipidemia, unspecified Category: Medical (4) Mild major depression: Code(s): F32.0 - Major depressive disorder, single episode, mild Category: Medical (5) COPD (chronic obstructive pulmonary disease): Code(s): J44.9 - Chronic obstructive pulmonary disease, unspecified Category: Medical (6) Congestive heart failure: Code(s): I50.9 - Heart failure, unspecified Category: Medical Qualifiers: Heart failure chronicity: chronic Heart failure type: systolic Qualified Code(s): I50.22 - Chronic systolic (congestive) heart failure (7) Morbid obesity with BMI of 40.0-44.9, adult: Code(s): E66.01 - Morbid (severe) obesity due to excess calories; Z68.41 - Body mass index [BMI] 40.0-44.9, adult Category: Medical (8) Uncontrolled type 2 diabetes mellitus with chronic kidney disease, with long-term current use of insulin: Code(s): E11.22 - Type 2 diabetes mellitus with diabetic chronic kidney disease; E11.65 - Type 2 diabetes mellitus with hyperglycemia; Z79.4 - jail (current) use of insulin Category: Medical (9) Hypertension: Code(s): I10 - Essential (primary) hypertension Category: Medical Plan - Adjust hypertension treatments as necessary, ensuring consistent intake of current medications including amlodipine, losartan, and hydralazine. - Continue atorvastatin for hyperlipidemia management; consider dietary modifications. - Evaluate diabetes medication regimen, possible increase in Ozempic if glycemic control remains suboptimal. - Consult nephrology for ongoing evaluation and management of proteinuria. - Prescribe topical agents for the management of pruritus as reported. - Assess the impact of current gastrointestinal medications and adjust as needed. Patient was informed and verbally consented to the use of an ambient scribe for clinic note documentation during this visit. I discussed with the patient the importance of better control over her hypertension and hyperlipidemia levels to manage her diabetes effectively. We reviewed her current medication regimen and the possibility of adjusting dosages for better outcomes. I emphasized the necessity of daily medication adherence and lifestyle modifications, such as dietary adjustments, particularly regarding egg yolk intake. Potential increase in Ozempic dosage was considered, along with evaluating her gastrointestinal symptoms related to omeprazole use. Prescribing a topical cream for her reported skin condition was recommended. Future nephrology follow-up is crucial for monitoring her proteinuria. Orders: Orders Vitamin D 25-OH Total 4 Months E55.9 - Vitamin D deficiency, unspecified Lipid Panel 4 Months E78.5 - Hyperlipidemia, unspecified Microalbumin, Random (w Creat) 4 Months R80.9 - Proteinuria, unspecified Comprehensive [place]. Panel Fast 4 Months N18.32 - Chronic kidney disease, stage 3b Complete Blood Count Auto Diff 4 Months D64.9 - Anemia, unspecified Influenza [id number] Immunization Today Z23 - Encounter for immunization NT-proBNP 4 Months I50.22 - Chronic systolic (congestive) heart failure IRON PROFILE 4 Months D64.9 - Anemia, unspecified Medications: New hydrocortisone 1% (Anti-Itch (hydrocortisone)) 1 appl topical BID PRN 28.4 grams 1RF skin irritation 4 weeks simethicone (Gas Relief (simethicone)) 250 mg (2 x 125 mg) PO BID PRN 180 caps 0RF abdominal distention 90 days ketoconazole 2% 1 appl topical 2XW 120 mL 4RF 30 days Refilled ferrous sulfate 325 mg PO .once a week 15 tabs 1RF 90 days D50.9 - Iron deficiency anemia, unspecified Patient Instructions: - Ensure all prescribed medications are taken consistently as directed. - Strive for dietary modifications particularly avoiding egg yolks and monitoring glucose intake. - Follow up with nephrology as scheduled for ongoing proteinuria evaluation. - Apply prescribed topical cream to areas of itchiness. - Monitor blood pressure regularly at home. - Report any significant changes in symptoms or adverse reactions to medications promptly.
[2024-11-14 10:41] VITALS: BP 162/74; BMI 41.8
--- OUTSIDE RECORDS SUMMARY | 2024-11-14 11:25 | XMS_ITS | Clinical Summary ---
Author Organization [facility] Address [address] [address] Phone Care Team Providers Care Control Clerk Head Name Role Phone Marycarmen Quijano MD Primary Care Provider Allergies Active Allergy Reactions Criticality Noted Date Comments Ibuprofen 12/01/2021 Other reaction(s): High BP Oxycodone Hcl 01/28/2021 Oxycodone-Acetaminophen 12/01/2021 Other reaction(s): hallucinations Medications calcium carbonate (OS-RUFUS) 1250 (500 Ca) MG tablet Take 1 tablet by mouth 1 (one) time each day Active carvedilol (COREG) 25 MG tablet Take 25 mg by mouth 2 (two) times a day Active cilostazol (PLETAL) 100 MG tablet Take 1 tablet by mouth 2 (two) times a day Active ergocalciferol (VITAMIN D-2) 1.25 MG (99011 UT) capsule Take 1 capsule by mouth 1 (one) time per week Active gabapentin (NEURONTIN) 300 MG capsule Take 1 capsule by mouth every night Active insulin glargine (Lantus) 100 UNIT/ML injection 4-5 units Active linaGLIPtin (Tradjenta) 5 MG tablet Take 1 tablet by mouth 1 (one) time each day 35 units Active omeprazole (PriLOSEC) [address] capsule Take 1 capsule by mouth 1 (one) time each day Active furosemide (LASIX) 40 MG tablet Take 40 mg by mouth 1 (one) time each day Active Cyanocobalamin (Vitamin B-12) [address] 1,000 mcg under the tongue 1 (one) time each day 05/25/202 1 Active atorvastatin (LIPITOR) 40 MG tablet Take 40 mg by mouth 1 (one) time each day 1 Active insulin aspart (NovoLOG FLEXPEN) 100 UNIT/ML injection INJECT 5-10 UNITS SUBCUTANEOUSLY THREE TIMES DAILY DIRECTED 2 Active amLODIPine (NORVASC) 10 MG tablet Take 10 mg by mouth 3 Active aspirin (ST SHARI) 81 MG EC tablet Take 81 mg by mouth 2 Active atorvastatin (LIPITOR) 40 MG tablet Take 80 mg by mouth at bed time 3 Active gabapentin (NEURONTIN) 300 MG capsule Take 300 mg by mouth in the morning and 300 mg in the evening and 300 mg before bedtime. Active hydrALAZINE 50 MG tablet Take 25 mg by mouth in the morning and 25 mg in the evening and 25 mg before bedtime. Active montelukast (SINGULAIR) 10 MG tablet Take 10 mg by mouth every night Active folic acid (FOLVITE) 1 MG tablet Take 1 mg by mouth 1 (one) time each day Active Ozempic, 0.25 or 0.5 MG/DOSE, 2 MG/3ML solution pen-injector 0.5 mg Active clopidogrel (PLAVIX) 75 MG tablet Take 1 tablet by mouth 1 (one) time each day Active Active Problems Problem Noted Date Diagnosed Date Stage 3b chronic kidney disease 03/28/2024 Severe obesity 09/09/2023 09/09/2023 Proteinuria 07/22/2023 Partially edentulous maxilla 03/18/2023 Stage 3b chronic kidney disease 01/04/2023 Type 2 diabetes mellitus wit h diabetic chronic kidney disease 01/04/2023 Renal osteodystrophy 01/04/2023 Obese class II 12/07/2022 Dental plaque on teeth 12/02/2022 3 Asthma 12/01/2021 Cardiac catheterization 12/01/2021 Diabetes mellitus 12/01/2021 Hyperlipidemia 12/01/2021 Hypertensive disorder 12/01/2021 Renal osteodystrophy 12/01/2021 Stage 3a chronic kidney disease 05/19/2021 Chronic kidney disease stage 3 02/28/2021 Hypertensive renal disease 02/28/2021 Proteinuria 02/28/2021 Renal disorder due to type 2 diabetes mellitus 0 02/28/2021 Acute kidney failure 01/28/2021 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 angina pectoris 01/28/2021 Chronic kidney disease 01/28/2021 COVID-19 01/28/2021 Dysphagia, oral phase 01/28/2021 Essential (primary) hypertension 01/28/2021 Gastro-esophageal reflux disease without esophag itis 01/28/2021 Hyperlipidemia 01/28/2021 Hypo-osmolality and hyponatremia 01/28/2021 Muscle wasting and atrophy, not elsewhere classified, lower leg 01/28/2021 Obesity 01/28/2021 Peripheral vascular disease 01/28/2021 Other reduced mobility 01/28/2021 Other malaise 01/28/2021 Respiratory failure with hypoxia 01/28/2021 Type 2 diabetes mellitus with diabetic neuropath y 01/28/2021 Unsteadiness on feet 01/28/2021 Uncomplicated asthma 01/28/2021 Aortic valve stenosis 12/05/2018 07/22/2023 Anti-nuclear factor detected 12/05/2018 Carpal tunnel syndrome 07/12/2017 3 Stenosis of lower limb artery 04/08/2017 Ischemic heart disease 09/16/2016 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 She has been asymptomatic since then and so she prefers medical management. Last echo 05/2012 reveals LVEF 55-60%, aortic valve mildly thickened with unchanged gradients from prior Low back pain 05/30/2012 07/22/2023 Diverticular disease of colon 05/05/2012 Osteopenia 10/04/1959 07/22/2023 Resolved Problems Problem Noted Date Diagnosed Date Resolved Date Morbid obesity 02/28/2021 05/13/2021 Encounters Date Type Department Care Team Description 11/14/2024 9:00 AM EST Office Visit [facility] [address] [facility] [address] [place] [address] Alycia Rios ARNP Stage 3b chronic kidney disease (HCC) (Primary Dx); Persistent proteinuria; Renal osteodystrophy 10/06/2024 Telephone [facility] [address] [facility] [address] [place] [address] Alycia Causey from Last 3 Months Immunizations Name Administration Dates Next Due Hepatitis B 04/08/2017, 7,06/03/2016,06/03,04/03/2014,04/03/2014 Influenza Split 07/13/2013 Influenza Split High Dose Pr eservative Free IM 07/12/2017 Influenza TIV (IM) 06/05/2020 Influenza Vaccine, Quadrival ent, Adjuvanted 07/20/2022 Influenza, Quadrivalent, Pre servative Free 07/12/2019,09/19/2018,09/16/2016 Influenza, Quadrivalent, Wit h Preservative 07/15/2015 Influenza, Unspecified 07/20/2022,2017,07/12/2017,09/16,07/15/2015,07/12/2014,07/12/2014 ,05/25/2011,05/25/2011 PPD Test 01/29/2021 Pneumococcal Conjugate 13-Valent 07/15/2015,07/04 Pneumococcal Polysaccharide 06/03/2016,0 06/03/2016,06/30/2000,06/30 Td 06/08/1997 Td, Unspecified 06/08/1997 Tdap 11/27/2013,11/27/2013 Zoster 07/15/2015,07/15/2015 Family History Medical History Relation Comments Diabetes Father Hypertension Father Diabetes Mother Hypertension Mother Kidney disease Sibling 1 brother Diabetes Sibling 2 Hypertension Sibling 3 Relation Status Comments Father Mother Sibling 1 Sibling 2 Sibling 3 Social History Tobacco Use Types Packs/Day Years Used Date Smoking Tobacco: Former Smokeless Tobacco: Never Comments:Smoking History Inf o:Every day Alcohol Use Standard Drinks/Week Comments No 0 (1 standard drink = 0.6 oz pur e alcohol) Comments Unknown Sex and Gender Information Value Date Recorded Sex Assigned at Not on file Legal Sex Female 4:43 PM EST Gender Identity Not on file Sexual Orientation Not on file Last Filed Vital Signs Vital Sign Reading Time Taken Comments Blood Pressure 136/60 11/14/2024 9:15 AM EST Pulse 63 11/14/2024 9:15 AM EST Temperature - - Respiratory Rate - - Oxygen Saturation 97% 11/14/2024 9:15 AM EST Inhaled Oxygen Concentration - - Weight 88 kg (194 lb) 11/14/2024 9:15 AM EST Height 152.4 cm (5') 09/11/2019 12:00 PM EST Body Mass Index 37.89 09/11/2019 12:00 PM EST Plan of Treatment Upcoming Encounters Date Type Department Care Team (Late st Contact Info) Description 05/07/2025 3:00 PM EDT Office [facility] [address] [place] [address] Dominick Reece MD [address] [facility] [address] [place] [address] Health Maintenance Due Date Last Done Comments Diabetes: Ophthalmology Exam 11/04/2020 Diabetes: Pedal Pulse Checked 11/04/2020 Diabetes: Sensory Foot Exam 11/04/2020 Diabetes: Visual Foot Exam 11/04/2020 Diabetes: Hemoglobin A1C 12/17/2020 09/18/2020 Influenza Vaccine (#1) 2024 2, 07/20/2022, 06/05/2020, Additional history exists Pneumococcal Vaccine: 65+ Years Completed 06/03/2016, 06/03/2016, 07/15/2015, Additional history exists Hepatitis B Vaccine Aged Out 04/08/2017, 04/08/2017, 06/03/2016, Additional history exists No longer eligible based on patient's age to complete this topic Procedures Procedure Name Priority Date/Time Associated Diagnosis Comments EXT RESULT ENTRY Routine 09/05/2024 BLOOD PANEL (HC) Routine 09/18/2020 12:0 0 AM EST from Last 3 Months or Most Recently Relevant to Health Maintenance Results * (ABNORMAL) EXT RESULT ENTRY (09/05/2024) BUN 25(A) 4 - 21 mg/dL Creatinine 1.54(A) 0.50 - 1.10 mg/dL eGFR Non-Afr Hungarian 32 09/05/2024 Historical Provider MD LAB BLOOD ORDERABLES Ananya l Result * (ABNORMAL) Blood Panel (09/18/2020 12:00 AM EST) Carbon Dioxide (CO2) 25 22 - 30 mmol/L [facility] BUN 25(H) 9 - 20 mg/dl [facility] Triglycerides 81 <150 mg/dl [facility] Sodium 139 137 - 145 mmol/L [facility] Cholesterol 157 <200 mg/dl [facility] HDL 51 >40 mg/dl [facility] LDL,Direct 90 <130 mg/dl [facility] Hemoglobin A1C 8.5(H) <5 % [facility] Comments From [facility] Creatinine 1.35(H) 0.70 - 1.30 mg/dl [facility] Potassium 4.5 3.5 - 5.1 mmol/L [facility] Calcium 8.8 8.4 - 10.2 mg/dl [facility] eGFR Non- 38(L) >60 ml/min [facility] 09/18/2020 us Rtama Conversion LAB [id number] LICITED RESULTS Final Result [facility] from Last 3 Months or Most Recently Relevant to Health Maintenance Insurance [facility] ([id number]) [facility] ([id number]) Care Teams Control Clerk Head Relationship Specialty Start Date End Date Marycarmen Quijano MD [address] [place] [id number] PCP - General 10/14/20
--- OUTSIDE RECORDS SUMMARY | 2024-11-14 11:26 | XMS_ITS ---
Author Organization [facility] Address Unknown Allergies, Adverse Reactions, Alerts Substance Reaction Status Noted Date Resolved Date Oxycodone active 01/28/2021 Motrin active 01/28/2021 Ibuprofen active 01/28/2021 Acetaminophen active 01/28/2021 Problems Problem Status Start Date End Date MUSCLE WASTING AND ATROPHY, NOT ELSEWHERE CLASSIFIED, LEFT LOWER LEG (Primary) (M62.562 - ICD-10-CM) ACTIVE 01/28/2021 COVID-19 (U07.1 - ICD-10-CM) ACTIVE 01/28/2021 ACUTE KIDNEY FAILURE, UNSPECIFIED (N17.9 - ICD-10-CM) ACTIVE 01/28/2021 RESPIRATORY FAILURE, UNSPECI FIED WITH HYPOXIA (J96.91 - ICD-10-CM) ACTIVE 01/28/2021 HYPO-OSMOLALITY AND HYPONATREMIA (E87.1 - ICD-10-CM) A CTIVE 01/28/2021 ESSENTIAL (PRIMARY) HYPERTENSION (I10 - ICD-10-CM) ACT ELIZABETH 01/28/2021 HYPERLIPIDEMIA, UNSPECIFIED (E78.5 - ICD-10-CM) ACTIVE 01/28/2021 UNSPECIFIED ASTHMA, UNCOMPLICATED (J45.909 - ICD-10-CM ) ACTIVE 01/28/2021 TYPE 2 DIABETES MELLITUS WIT H DIABETIC NEUROPATHY, UNSPECIFIED (E11.40 - ICD-10-CM) ACTIVE 01/28/2021 ATHEROSCLEROTIC HEART DISEAS E OF [place] CORONARY ARTERY WITHOUT ANGINA PECTORIS (I25.10 - ICD-10-CM) ACTIVE 01/28/2021 PERIPHERAL VASCULAR DISEASE, UNSPECIFIED (I73.9 - ICD-10-CM) ACTIVE 01/28/2021 CHRONIC KIDNEY DISEASE, UNSPECIFIED (N18.9 - ICD-10-CM ) ACTIVE 01/28/2021 GASTRO-ESOPHAGEAL REFLUX DIS EASE WITHOUT ESOPHAGITIS (K21.9 - ICD-10-CM) ACTIVE 01/28/2021 OBESITY, UNSPECIFIED (E66.9 - ICD-10-CM) ACTIVE 01/28/2021 MUSCLE WASTING AND ATROPHY, NOT ELSEWHERE CLASSIFIED, RIGHT LOWER LEG (M62.561 - ICD-10-CM) ACTIVE 01/28/2021 DYSPHAGIA, ORAL PHASE (R13.11 - ICD-10-CM) ACTIVE 01/28/2021 UNSTEADINESS ON FEET (R26.81 - ICD-10-CM) ACTIVE 01/28/2021 OTHER MALAISE (R53.81 - ICD-10-CM) ACTIVE 2020 OTHER REDUCED MOBILITY (Z74.09 - ICD-10-CM) ACTIVE 01/28/2021 Encounters Encounter Performer Performer Role Encounter Diagnoses Location Date Discharge - Discharged to home or self care - Home - [facility] 1 03:14 pm EDT - 1 02:17 pm EDT Immunizations Vaccine Date Influenza 06/05/2020 12:00 am EDT TB 1 Step Mantoux (PPD) 01/29/2021 10:00 am EDT PCV13 (Pneumococcal Conjugate)Vaccine Social History
--- OUTSIDE RECORDS SUMMARY | 2024-11-14 11:26 | XMS_ITS | Encounter Summary ---
Author Organization [facility] Address [address] [address] Phone Care Team Providers Care Cow Tester Name Role Phone Marycarmen Quijano MD Primary Care Provider [phone] Reason for Visit * Reason Comments Chronic Kidney Disease Encounter Details Date Type Department Care Team (Latest Contact Info) Description 11/14/2024 9:00 AM EST Office Visit [facility] [address] [address] Alycia Rios ARNP [address] [address] Stage 3b chronic kidney disease (HCC) (Primary Dx); Persistent proteinuria; Renal osteodystrophy Social History Tobacco Use Types Packs/Day Years [...] on file Sexual Orientation Not on file documented as of this encounter Last Filed Vital Signs Vital Sign Reading Time Taken Comments Blood Pressure 136/60 11/14/2024 9:15 AM EST Pulse 63 11/14/2024 9:15 AM EST Temperature - - Respiratory Rate - - Oxygen Saturation 97% 11/14/2024 9:15 AM EST Inhaled Oxygen Concentration - - Weight 88 kg (194 lb) 11/14/2024 9:15 AM EST Height - - Body Mass Index 37.89 09/11/2019 12:00 PM EST documented in this encounter Plan of Treatment Upcoming Encounters Date Type Department Care Team (Late st Contact Info) Description 05/07/2025 3:00 PM EDT Office Visit [facility] [address] [place] [address] Dominick Reece MD [address] [facility] [address] [place] [address] Scheduled Orders Name Type Priority Associated Diagnoses Orde r Schedule PTH, intact Lab Routine Stage 3b chronic kidney disease (HCC) Persistent proteinuria Renal osteodystrophy Expected: 11/14/2024, Expires: 12/12/2025 CBC Lab Routine Stage 3b chronic kidney disease (HCC) Persistent proteinuria Renal osteodystrophy Expected: 11/14/2024, Expires: 12/12/2025 Urine Protein / creatinine ratio Lab Routine Stage 3b chronic kidney disease (HCC) Persistent proteinuria Renal osteodystrophy Expected: 11/14/2024, Expires: 12/12/2025 Urine Albumin / Creatinine Ratio Lab Routine Stage 3b chronic kidney disease (HCC) Persistent proteinuria Renal osteodystrophy Expected: 11/14/2024, Expires: 12/12/2025 Urinalysis with microscopic Lab Routine Stage 3b chronic kidney disease (HCC) Persistent proteinuria Renal osteodystrophy Expected: 11/14/2024, Expires: 12/12/2025 Urine culture Lab Routine Stage 3b chronic kidney disease (HCC) Persistent proteinuria Renal osteodystrophy Expected: 11/14/2024, Expires: 12/12/2025 PTH, intact Lab Routine Stage 3b chronic kidney disease (HCC) Persistent proteinuria Renal osteodystrophy Expected: 04/29/2025, Expires: 06/03/2025 Renal function panel Lab Routine Stage 3b chronic kidney disease (HCC) Persistent proteinuria Renal osteodystrophy Expected: 04/29/2025, Expires: 06/03/2025 CBC Lab Routine Stage 3b chronic kidney disease (HCC) Persistent proteinuria Renal osteodystrophy Expected: 04/29/2025, Expires: 06/03/2025 Urine Protein / creatinine ratio Lab Routine Stage 3b chronic kidney disease (HCC) Persistent proteinuria Renal osteodystrophy Expected: 04/29/2025, Expires: 06/03/2025 Urine Albumin / Creatinine Ratio Lab Routine Stage 3b chronic kidney disease (HCC) Persistent proteinuria Renal osteodystrophy Expected: 04/29/2025, Expires: 06/03/2025 Ferritin Lab Routine Stage 3b chronic kidney disease (HCC) Persistent proteinuria Renal osteodystrophy Expected: 04/29/2025, Expires: 06/03/2025 Iron Panel (Fe, TIBC, TSAT) Lab Routine Stage 3b chronic kidney disease (HCC) Persistent proteinuria Renal osteodystrophy Expected: 04/29/2025, Expires: 06/03/2025 documented as of this encounter Procedures Procedure Name Priority Date/Time Associated Diagnosis Comments EXT RESULT ENTRY Routine 09/05/2024 EXT RESULT ENTRY Routine 07/19/2024 documented in this encounter Results * (ABNORMAL) EXT RESULT ENTRY (09/05/2024) BUN 25(A) 4 - 21 mg/dL Creatinine 1.54(A) 0.50 - 1.10 mg/dL eGFR Non-Afr Chinese 32 09/05/2024 Historical Provider LAB BLOOD ORDERABLES Ananya l Result * (ABNORMAL) EXT RESULT ENTRY (07/19/2024) Sodium 143 137 - 147 Potassium 3.8 3.4 - 5.5 Carbon Dioxide 30 mmol/L Anion Gap 14 <=30 MMOL/L Glucose 146 60 - 200 BUN 25(A) 4 - 21 mg/dL Creatinine 1.63(A) 0.50 - 1.10 mg/dL Calcium 9.8 8.7 - 10.7 mg/dL eGFR Non-Afr Chinese 30 07/19/2024 Historical Provider LAB BLOOD ORDERABLES Ananya l Result documented in this encounter Visit Diagnoses Diagnosis Stage 3b chronic kidney disease (HCC)- Primary Persistent proteinuria Renal osteodystrophy documented in this encounter Care Teams Cow Tester Relationship Specialty Start Date End Date Marycarmen Quijano MD [address] [place] [id number] PCP - General 10/14/20 documented as of this encounter
--- OUTSIDE RECORDS SUMMARY | 2024-11-14 11:26 | XMS_ITS | Data Portability ---
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 Family notes this is more in line with recent baseline. Discussed red flags and close follow up with PCP office for re-evaluation [email or web address] Not available 04/08/2023 16:27:55 09/18/2024 09/18/2024 cough x 4 days, diffuse wheeze on exam. better w neb x 1. covid and flu neg. no significant hypoxia or resp distress. plan- steroids, azithro, outpt follow up w pcp in 1 week [email or web address] Not available 09/18/2024 20:08:58 Plan of Treatment Reminders Order Date Submit Date Provider Last Modified By Organization Details Last Modified Time Details Appointments None recorded. Lab CBC w/ auto diff 2021 022 YODIT [facility], [address] [place], [address], 00:05:50 CMP, serum or plasma 2021 022 [email or web address] [facility], [address] [place], [address], 2 19:37:00 unlisted lab - urinalysis w/reflex culture 2021 022 YODIT [facility], [address] [place], [id number], 2 01:53:39 cmp, [facility] blood + [email or web address], [address] [place] [address], [id number], 2 16:24:03 urinalysis, dipstick 2021 022 [email or web address], [address] [place] [address], [phone], 2 16:24:43 rapid SARS CoV 2 Ag, QL IA, respiratory specimen 2023 024 [facility], [address] [place] [address], [id number], 4 09:06:35 rapid flu (A+B) 2023 024 [facility], [address] [place] [address], [id number], 4 09:06:54 Referral None recorded. Procedures None recorded. Surgeries None recorded. Imaging None recorded. Medication Orders prednisone 10 mg tablet 2023 024 [facility], [address] [place] [address], [id number], 4 12:30:23 azithromyci n 250 mg tablet 2023 024 [facility], [address] [place] [address], [id number], 4 12:30:23 azithromyci n 250 mg tablet 2023 024 [email or web address] [facility], [address] [place] [address], [id number], 4 20:08:15 prednisone 20 mg tablet [email or web address] [place] [address] Pharmacy, [address], [place], [id number], 4 20:08:15 ipratropium 0.5 mg-albutero l 3 mg (2.5 mg base)/3 mL nebulizatio n soln 2023 024 [email or web address] [facility], [address] [place] [address], [id number], 4 20:08:15 Patient TargetsNo targets recorded. Patient InstructionsNo instructions recorded. Reason for Referral None Reported. Results Created Date Observation Date Name Description Value Unit Range Abnormal Flag Note LastModifiedBy Organization Detail LastModifiedTime 02/17/20 22 02/17/2022 COMPL ETE CBC WITH DIFF WBC 17.6 K/mm3 (4.0-1 1.0) high Not Available [facility] [address] [place], [id number], 02/17/2022 00:05:50 02/17/20 22 02/17/2022 COMPL ETE CBC WITH DIFF RBC 5.07 M/mm3 (4.20- 5.40) Not Available [facility] [address] [place], [address], 02/17/2022 00:05:50 02/17/20 22 02/17/2022 COMPL ETE CBC WITH DIFF HGB 11.9 gm/dL (11.7- 15.5) Not Available [facility] [address] [place], [address], 02/17/2022 00:05:50 02/17/20 22 02/17/2022 COMPL ETE CBC WITH DIFF HCT 40.2 % (35.7- 45.8) Not Available [facility] [address] [place], [address], 02/17/2022 00:05:50 02/17/20 22 02/17/2022 COMPL ETE CBC WITH DIFF MCV 79.3 fL (80.0- 100.0) low Not Available [facility] [address] [place], [address], 02/17/2022 00:05:50 02/17/20 22 02/17/2022 COMPL ETE CBC WITH DIFF MCH 23.5 pg (27.0- 34.0) low Not Available [facility] [address] [place], [address], 02/17/2022 00:05:50 02/17/20 22 02/17/2022 COMPL ETE CBC WITH DIFF MCHC 29.6 g/dL (33.0- 37.0) low Not Available [facility] [address] [place], [address], 02/17/2022 00:05:50 02/17/20 22 02/17/2022 COMPL ETE CBC WITH DIFF plt 340 K/mm3 (150-4 60) Not Available [facility] [address] [place], [address], 02/17/2022 00:05:50 02/17/20 22 02/17/2022 COMPL ETE CBC WITH DIFF RDW-SD 45.1 fL (<47.0 ) Not Available [facility] [address] [place], [address], 02/17/2022 00:05:50 02/17/20 22 02/17/2022 COMPL ETE CBC WITH DIFF MPV 9.9 fL (9.4-1 2.4) Not Available [facility] [address] [place], [address], 02/17/2022 00:05:50 02/17/20 22 02/17/2022 COMPL ETE CBC WITH DIFF automated NRBC 0.0 #/100 _WBC' s Not Available [facility] [address] [place], [address], 02/17/2022 00:05:50 02/17/20 22 02/17/2022 COMPL ETE CBC WITH DIFF abs. NRBC 0.0 K/mm3 Not Available [facility] [address] [place], [address], 02/17/2022 00:05:50 02/17/20 22 02/17/2022 COMPL ETE CBC WITH DIFF neut # 13.8 K/mm3 (1.3-7 .0) high Not Available [facility] [address] [place], [address], 02/17/2022 00:05:50 02/17/20 22 02/17/2022 COMPL ETE CBC WITH DIFF lymph # 2.2 K/mm3 (0.8-3 .1) Not Available [facility] [address] [place], [address], 02/17/2022 00:05:50 02/17/20 22 02/17/2022 COMPL ETE CBC WITH DIFF mono# 1.3 K/mm3 (0.4-0 .9) high Not Available [facility] [address] [place], [address], 02/17/2022 00:05:50 02/17/20 22 02/17/2022 COMPL ETE CBC WITH DIFF eo # 0.2 K/mm3 (0.0-0 .4) Not Available [facility] [address] [place], [address], 02/17/2022 00:05:50 02/17/20 22 02/17/2022 COMPL ETE CBC WITH DIFF baso # 0.1 K/mm3 (0.0-0 .1) Not Available [facility] [address] [place], [address], 02/17/2022 00:05:50 02/17/20 22 02/17/2022 COMPL ETE CBC WITH DIFF abs. imm gran 0.1 K/mm3 Not Available [facility] [address] [place], [address], 02/17/2022 00:05:50 02/17/20 22 02/17/2022 COMPL ETE CBC WITH DIFF neut 78.3 % (44-76 ) high Not Available [facility] [address] [place], [address], 02/17/2022 00:05:50 02/17/20 22 02/17/2022 COMPL ETE CBC WITH DIFF lymph 12.4 % (15-43 ) low Not Available [facility] [address] [place], [address], 02/17/2022 00:05:50 02/17/20 22 02/17/2022 COMPL ETE CBC WITH DIFF monocyte 7.3 % (4.5-1 0.5) Not Available [facility] [address] [place], [address], 02/17/2022 00:05:50 02/17/20 22 02/17/2022 COMPL ETE CBC WITH DIFF eo 1.2 % (0-6) Not Available [facility] [address] [place], [address], 02/17/2022 00:05:50 02/17/20 22 02/17/2022 COMPL ETE CBC WITH DIFF baso 0.3 % (0-2) Not Available [facility] [address] [place], [address], 02/17/2022 00:05:50 02/17/20 22 02/17/2022 COMPL ETE CBC WITH DIFF imm gran 0.5 % Not Available [facility] [address] [place], [address], 02/17/2022 00:05:50 02/17/20 22 02/17/2022 BASIC METAB OLIC PANEL glucose 328 mg/dL (70-99 ) high Not Available [facility] [address] [place], [address], 02/17/2022 00:22:44 02/17/20 22 02/17/2022 BASIC METAB OLIC PANEL BUN 19 mg/dL (8-23) Not Available [facility] [address] [place], [address], 02/17/2022 00:22:44 02/17/20 22 02/17/2022 BASIC METAB OLIC PANEL creatinine 1.3 mg/dL (0.5-1 .0) high Not Available [facility] [address] [place], [address], 02/17/2022 00:22:44 02/17/20 22 02/17/2022 BASIC METAB OLIC PANEL sodium 136 mmol/ L (133-1 45) Not Available [facility] [address] [place], [address], 02/17/2022 00:22:44 02/17/20 22 02/17/2022 BASIC METAB OLIC PANEL potassium 4.0 mmol/ L (3.6-5 .2) Not Available [facility] [address] [place], [address], 02/17/2022 00:22:44 02/17/20 22 02/17/2022 BASIC METAB OLIC PANEL chloride 97 mmol/ L (98-10 7) low Not Available [facility] [address] [place], [address], 02/17/2022 00:22:44 02/17/20 22 02/17/2022 BASIC METAB OLIC PANEL bicarbonate 27 mmol/ L (22-29 ) Not Available [facility] [address] [place], [address], 02/17/2022 00:22:44 02/17/20 22 02/17/2022 BASIC METAB OLIC PANEL anion gap 12 (4-17) Not Available [facility] [address] [place], [address], 02/17/2022 00:22:44 02/17/20 22 02/17/2022 BASIC METAB OLIC PANEL calcium 8.9 mg/dL (8.6-1 0.5) Not Available [facility] [address] [place], [address], 02/17/2022 00:22:44 02/17/20 22 02/17/2022 BASIC METAB OLIC PANEL estimated GFR creatinine 44 mL/mi n/1.7 3_M2 Creat inine based estim ated glome rular filtr ation (eGFR ) in adult s is calcu lated using the Natio nal Kidne y Found ation recom gabby d 2020 CKD-E PI equat ion. Estim ates GFR from serum creat inine , age and sex. Not Available [facility] [address] [place], [address], 02/17/2022 00:22:44 02/17/20 22 02/17/2022 UA W/REF REGAN CULTU RE appear/color COLOR LESS CLEAR Not Available [facility] [address] [place], [address], 02/17/2022 01:53:39 02/17/20 22 02/17/2022 UA W/REF REGAN CULTU RE sp. gravity 1.008 (1.002 -1.030 ) Not Available [facility] [address] [place], [address], 02/17/2022 01:53:39 02/17/20 22 02/17/2022 UA W/REF REGAN CULTU RE urine pH 6.0 (5.0-8 .0) Not Available [facility] [address] [place], [address], 02/17/2022 01:53:39 02/17/20 22 02/17/2022 UA W/REF REGAN CULTU RE urine albumin 1+ (neg) abnormal Not Available [facility] [address] [place], [address], 02/17/2022 01:53:39 02/17/20 22 02/17/2022 UA W/REF REGAN CULTU RE urine glucose NEGATI VE (neg) Not Available [facility] [address] [place], [address], 02/17/2022 01:53:39 02/17/20 22 02/17/2022 UA W/REF REGAN CULTU RE urine ketones NEGATI VE (neg) Not Available [facility] [address] [place], [address], 02/17/2022 01:53:39 02/17/20 22 02/17/2022 UA W/REF REGAN CULTU RE urine bilirubin NEGATI VE (neg) Not Available [facility] [address] [place], [address], 02/17/2022 01:53:39 02/17/20 22 02/17/2022 UA W/REF REGAN CULTU RE urine hemoglobin NEGATI VE (neg) Not Available [facility] [address] [place], [address], 02/17/2022 01:53:39 02/17/20 22 02/17/2022 UA W/REF REGAN CULTU RE urine nitrite NEGATI VE (neg) Not Available [facility] [address] [place], [address], 02/17/2022 01:53:39 02/17/20 22 02/17/2022 UA W/REF REGAN CULTU RE urine leukocyte NEGATI VE (neg) Not Available [facility] [address] [place], [address], 02/17/2022 01:53:39 02/17/20 22 02/17/2022 UA W/REF REGAN CULTU RE urobilinogen NORMAL mg/dL (norm) Not Available [facility] [address] [place], [address], 02/17/2022 01:53:39 02/17/20 22 02/17/2022 UA W/REF REGAN CULTU RE urine WBCs 1 /hpf (0-5) Not Available [facility] [address] [place], [address], 02/17/2022 01:53:39 02/17/20 22 02/17/2022 UA W/REF REGAN CULTU RE urine RBCs 1 /hpf (0-3) Not Available [facility] [address] [place], [address], 02/17/2022 01:53:39 02/17/20 22 02/17/2022 UA W/REF REGAN CULTU RE bacteria SLIGHT hpf (neg) abnormal Not Available [facility] [address] [place], [address], 02/17/2022 01:53:39 02/17/20 22 02/17/2022 UA W/REF REGAN CULTU RE squamous epith 1 /hpf (0-8) Not Available [facility] [address] [place], [address], 02/17/2022 01:53:39 02/17/20 22 02/17/2022 UA W/REF REGAN CULTU RE clarity CLEAR (clear ) Not Available [facility] [address] [place], [address], 02/17/2022 01:53:39 02/17/20 22 02/17/2022 UA W/REF REGAN CULTU RE culture indication CULTUR E NOT INDICA NATALIE Not Available [facility] [address] [place], [address], 02/17/2022 01:53:39 02/17/20 22 02/16/2022 urina lysis , dipst ick Leukocytes neg Not Available [facility] [address] [place] [address], [address], 02/16/2022 16:23:39 02/17/20 22 02/16/2022 urina lysis , dipst ick Nitrite negati ve Not Available [facility] [address] [place] [address], [address], 02/16/2022 16:23:39 02/17/20 22 02/16/2022 urina lysis , dipst ick Protein 4+ Not Available [facility] nat[facility] [address] [place] [address], [address], 02/16/2022 16:23:39 02/17/20 22 02/16/2022 urina lysis , dipst ick Ketone 2+ Not Available [facility] [address], [address], 02/16/2022 16:23:39 02/17/20 22 02/16/2022 urina lysis , dipst ick Glucose negati ve Not Available [facility] [address], [address], 02/16/2022 16:23:39 02/17/20 22 02/16/2022 cmp, whole blood + picco lo ALB 2.8 Not Available [facility] [address], [address], 02/16/2022 16:22:48 02/17/20 22 02/16/2022 cmp, whole blood + picco lo ALP 114 Not Available [facility] [address], [address], 02/16/2022 16:22:48 02/17/20 22 02/16/2022 cmp, whole blood + picco lo ALT 12 Not Available [facility] [address], [address], 02/16/2022 16:22:48 02/17/20 22 02/16/2022 cmp, whole blood + picco lo AST 18 Not Available [facility] [address], [address], 02/16/2022 16:22:48 02/17/20 22 02/16/2022 cmp, whole blood + picco lo BUN 17 Not Available [facility] [address], [address], 02/16/2022 16:22:48 02/17/20 22 02/16/2022 cmp, whole blood + picco lo Ca 9.8 Not Available [facility] [address], [address], 02/16/2022 16:22:48 02/17/20 22 02/16/2022 cmp, whole blood + picco lo CI- normal Not Available [facility] [address], [address], 02/16/2022 16:22:48 02/17/20 22 02/16/2022 cmp, whole blood + picco lo CRE 1.3 Not Available [facility] [address], [address], 02/16/2022 16:22:48 02/17/20 22 02/16/2022 cmp, whole blood + picco lo GLU 326 Not Available [facility] [address], [address], 02/16/2022 16:22:48 02/17/20 22 02/16/2022 cmp, whole blood + picco lo K+ 3.8 Not Available [facility] [address], [address], 02/16/2022 16:22:48 02/17/20 22 02/16/2022 cmp, whole blood + picco lo Na+ 138 Not Available [facility] [address], [address], 02/16/2022 16:22:48 02/17/20 22 02/16/2022 cmp, whole blood + picco lo tCO2 27 Not Available [facility] [address], [address], 02/16/2022 16:22:48 Result Notes None recorded. Medical Equipment None Reported. Allergies Allergen ID Allergen Name Allergen Category Reaction Reaction Severity Criticality Documentation Date Start Date Code Code System Note Provider Name and Address Organization Details Recorded Time 73804 Motrin medicatio n Not available Not available Not available 09/18/202471536 8 RxNorm Not Available [facility] - production 15:17:42 47442 acetamino phen / oxycodone medicatio n Not available Not available Not available 09/18/202414253 3 RxNorm Not Available [facility] - production 4 15:17:42 88631 tramadol medicatio n Not available Not available Not available 09/18/2024 44949 RxNorm Not Available [email or web address] - Played 4 15:17:42 Medications Name Sig Start Date Stop Date Status Note LastModified by Organization Details LastModified Time medbox status USE DIRECTED active Not Available Not Available No t Available losartan 50 mg tablet TAKE 1 TABLET BY MOUTH EVERY MORNING active Not Available Not Available No t Available amoxicillin 500 mg capsule TAKE 4 CAPSULES BY MOUTH 1 HOUR BEFORE DENTAL PROCEDURE active Not Available Not Available No t Available Anti-Diarrhe al (loperamide) 2 mg tablet TAKE 1 TABLET BY MOUTH CON EL PRIMER MOVIMIENTO INTESTINAL, L[place] IVÁN [place] CASULA CON CADA EVACUACION. NO EXEDER DE 8 TABLETAS EN 24 HORAS. active Not Available Not Available No t Available furosemide 40 mg tablet TAKE 1 TABLET BY MOUTH EVERY MORNING active Not Available Not Available No t Available latanoprost 0.005 % eye drops PLACE 1 DROP IN EACH EYE EVERY NIGHT active Not Available Not Available Not Available atorvastatin 40 mg tablet TAKE 1 TABLET BY MOUTH AT BEDTIME active Not Available Not Available No t Available cilostazol 100 mg tablet TAKE 1 TABLET BY MOUTH TWICE DAILY IN THE MORNING AND AT BEDTIME active Not Available Not Available No t Available atorvastatin 80 mg tablet TAKE 1 TABLET BY MOUTH AT BEDTIME active Not Available Not Available No t Available carvedilol 25 mg tablet TAKE 1 TABLET BY MOUTH TWICE DAILY IN THE MORNING AND AT BEDTIME WITH FOOD active Not Available Not Available No t Available clonidine HCl 0.1 mg tablet TAKE 1 TABLET BY MOUTH AT BEDTIME active Not Available Not Available No t Available prednisone 10 mg tablet TAKE 5 TABLETS BY MOUTH EVERY MORNING FOR 5 DAYS. TAKE WITH FOOD. active Not Available Not Available No t Available torsemide 20 mg tablet TAKE 1 TABLET BY MOUTH TWICE DAILY IN THE MORNING AND IN THE EVENING active Not Available Not Available No t Available polyethylene glycol 3350 17 gram oral powder packet DISSOLVE 1 PACKET IN 4 TO 8 OUNCES (120-240 ML) OF WATER ONCE DAILY. NO USE EVERY DAY POR MORE THAN 1-2 WEEKS active Not Available Not Available No t Available azithromycin 250 mg tablet TAKE 1 TABLET BY MOUTH ONCE DAILY FOR 4 DAYS. TAKE WITH FOOD. active Not Available Not Available N ot Available cetirizine 5 mg tablet TAKE 1 TABLET BY MOUTH EVERY DAY NEEDED FOR ALLERGIES active Not Available Not Available No t Available cilostazol 50 mg tablet TAKE 1 TABLET BY MOUTH TWICE DAILY IN THE MORNING AND AT BEDTIME 1/2 HOUR BEFORE MEALS OR 2 HOURS AFTER MEALS active Not Available Not Available No t Available Lidocaine Viscous 2 % mucosal solution TAKE 10 ML BY MOUTH FOUR TIMES DAILY FOR 14 DAYS NEEDED FOR PAIN (MOUTH) active Not Available Not Available No t Available fluconazole 150 mg tablet TAKE 1 TABLET BY MOUTH EVERY 3 DAYS. MAY REPEAT AFTER 72 HOURS IF SYMPTOMS WORSEN OR PERSIST. active Not Available Not Available No t Available sucralfate 1 gram tablet TAKE 1 TABLET BY MOUTH TWICE DAILY NEEDED FOR PAIN OF abdominal active Not Available Not Available No t Available prednisone 20 mg tablet TAKE 2 TABLETS BY MOUTH EVERY DAY active Not Available Not Available No t Available terconazole 0.8 % vaginal cream INSERT 1 APPLICATORF UL VAGINALLY AT BEDTIME FOR 3 DAYS active Not Available Not Available N ot Available cyanocobalam in (vit B-12) 1,000 mcg tablet TAKE 1 TABLET BY MOUTH EVERY DAY active Not Available Not Available No t Available clotrimazole 1 % vaginal cream USE 1 APPLICATORF UL ONCE DAILY VAGINALLY AT BEDTIME FOR INFECTION active Not Available Not Available No t Available hydralazine 25 mg tablet TAKE 1 TABLET BY MOUTH THREE TIMES DAILY IN THE MORNING, EVENING, AND BEDTIME active Not Available Not Available Not Available amlodipine 2.5 mg tablet TAKE 1 TABLET BY MOUTH EVERY EVENING (TAKE ADDITIONAL TABLET IF BLOOD PRESSURE >160-IN VIAL) active Not Available Not Available No t Available clopidogrel 75 mg tablet TAKE 1 TABLET BY MOUTH EVERY MORNING active Not Available Not Available No t Available ciprofloxaci n 250 mg tablet TAKE 1 TABLET BY MOUTH EVERY TWELVE HOURS UNTIL FINISHED active Not Available Not Available No t Available ciprofloxaci n 500 mg tablet TAKE 1 TABLET BY MOUTH EVERY TWELVE HOURS UNTIL FINISHED active Not Available Not Available No t Available omeprazole 40 mg capsule,walter yed release TAKE 1 CAPSULE BY MOUTH EVERY DAY active Not Available Not Available No t Available aspirin 81 mg tablet,delay ed release TAKE 1 TABLET BY MOUTH AT BEDTIME active Not Available Not Available No t Available amlodipine 10 mg tablet TAKE 1 TABLET BY MOUTH EVERY MORNING active Not Available Not Available No t Available cephalexin 500 mg capsule TAKE 1 CAPSULE BY MOUTH TWICE DAILY UNTIL FINISHED active Not Available Not Available No t Available pantoprazole 40 mg tablet,delay ed release TAKE 1 TABLET BY MOUTH EVERY MORNING active Not Available Not Available No t Available ferrous sulfate 325 mg (65 mg iron) tablet TAKE 1 TABLET BY MOUTH ONCE WEEKLY ON Wednesday active Not Available Not Available No t Available nitrofuranto in macrocrystal 100 mg capsule TAKE 1 CAPSULE BY MOUTH TWICE DAILY FOR 7 DAYS WITH A MEAL / FOOD active Not Available Not Available Not Available clotrimazole -betamethaso ne 1 %-0.05 % topical cream APPLY TOPICALLY TWICE DAILY FOR 5 DAYS active Not Available Not Available N ot Available lidocaine 5 % topical patch APPLY 1 PATCH TOPICALLY TO SKIN, LEAVE ON FOR 12 HOURS AND OFF FOR 12 HOURS DIRECTED active Not Available Not Available No t Available losartan 25 mg tablet TAKE 1 TABLET BY MOUTH EVERY MORNING active Not Available Not Available No t Available brimonidine 0.2 % eye drops INSTILL 1 DROP IN EACH EYE TWICE DAILY active Not Available Not Available Not Available Gas Relief Extra Strength 125 mg capsule TAKE 1 CAPSULE BY MOUTH EVERY 6 HOURS NEEDED FOR GAS active Not Available Not Available No t Available gabapentin 300 mg capsule TAKE 1 CAPSULE BY MOUTH AT BEDTIME active Not Available Not Available No t Available folic acid 1 mg tablet TAKE 1 TABLET BY MOUTH EVERY MORNING active Not Available Not Available No t Available montelukast 10 mg tablet TAKE 1 TABLET BY MOUTH EVERY EVENING active Not Available Not Available No t Available ergocalcifer ol (vitamin D2) 1,250 mcg (50,000 unit) capsule TAKE 1 CAPSULE BY MOUTH ONCE WEEKLY ON Wednesday active Not Available Not Available No t Available cefuroxime axetil 500 mg tablet TAKE 1 TABLET BY MOUTH TWICE A DAY active Not Available Not Available No t Available levofloxacin 500 mg tablet TAKE 1 TABLET BY MOUTH EVERY DAY active Not Available Not Available No t Available fluticasone propionate 50 mcg/actuatio n nasal spray,suspen ihsan USE 1 SPRAY IN EACH NOSTRIL EVERY DAY NEEDED FOR ALLERGIES active Not Available Not Available No t Available ipratropium bromide 21 mcg (0.03 %) nasal spray USE 2 SPRAYS IN EACH NOSTRIL TWICE DAILY active Not Available Not Available Not Available dorzolamide 2 % eye drops INSTILL 1 DROP IN THE RIGHT EYE THREE TIMES DAILY active Not Available Not Available No t Available amoxicillin 500 mg-potassium clavulanate 125 mg tablet TAKE 1 TABLET BY MOUTH EVERY TWELVE HOURS UNTIL FINISHED active Not Available Not Available No t Available tobramycin 0.3 %-dexamethas one 0.1 % eye drops,suspen ihsan INSTILL 1 DROP IN EACH EYE FOUR TIMES DAILY active Not Available Not Available No t Available azithromycin 500 mg tablet TAKE 1 TABLET BY MOUTH ONCE DAILY FOR 5 DAYS active Not Available Not Available No t Available Vitamin D3 25 mcg (1,000 unit) capsule TAKE 1 CAPSULE BY MOUTH EVERY MORNING active Not Available Not Available No t Available Novolog FlexPen U-100 Insulin aspart 100 unit/mL (3 mL) subcutaneous INJECT 5-10 UNITS SUBCUTANEOU SLY THREE TIMES DAILY active Not Available Not Available Not Available calcium acetate(phos phate binders) 667 mg capsule TAKE 1 CAPSULE BY MOUTH TWICE DAILY active Not Available Not Available No t Available Mintox Maximum Strength 400 mg-400 mg-40 mg/5 mL oral suspension TAKE 10 ML BY MOUTH FOUR TIMES DAILY FOR 14 DAYS active Not Available Not Available No t Available budesonide-f ormoterol HFA 160 mcg-4.5 mcg/actuatio n aerosol inhaler INHALE 2 PUFFS BY MOUTH TWICE DAILY active Not Available Not Available No t Available FreeStyle Lite Strips TEST BLOOD SUGAR THREE TIMES DAILY active Not Available Not Available Not Available blood pressure test kit-large cuff USE DIRECTED DAILY active Not Available Not Available No t Available Dulera 200 mcg-5 mcg/actuatio n HFA aerosol inhaler INHALE 2 PUFFS BY MOUTH EVERY TWELVE HOURS DIRECTED active Not Available Not Available No t Available Tradjenta 5 mg tablet TAKE 1 TABLET BY MOUTH EVERY MORNING active Not Available Not Available No t Available UltiCare Pen Needle 32 gauge x 5/32 USE FIVE TIMES DAILY active Not Available Not Available Not Available TRUEplus Lancets 33 gauge TEST BLOOD SUGAR 3 TIMES A DAY active Not Available Not Available Not Available Jardiance 10 mg tablet TAKE 1 TABLET BY MOUTH EVERY MORNING active Not Available Not Available No t Available Jardiance 25 mg tablet TAKE 1 TABLET BY MOUTH EVERY MORNING active Not Available Not Available No t Available Toujeo SoloStar U-300 Insulin 300 unit/mL (1.5 mL) subcutaneous pen INJECT 36 UNITS SUBCUTANEOU SLY EVERY DAY active Not Available Not Available No t Available Radha-Dryl 12.5 mg/5 mL oral liquid TAKE 10 ML BY MOUTH FOUR TIMES DAILY FOR 14 DAYS NEEDED FOR PAIN (MOUTH) active Not Available Not Available No t Available Mounjaro 2.5 mg/0.5 mL subcutaneous pen injector INJECT ONE PEN (=2.5MG) SUBCUTANEOU SLY ONCE A WEEK DIRECTED active Not Available Not Available No t Available Dexcom G7 Retail Consultant USE DIRECTED active Not Available Not Available No t Available Dexcom G7 Sensor device USE DIRECTED AND CHANGE EVERY 10 DAYS DIRECTED active Not Available Not Available No t Available Ozempic 0.25 mg or 0.5 mg (2 mg/3 mL) subcutaneous pen injector INJECT 0.5 MG SUBCUTANEOU SLY EVERY 7 DAYS IN THE ABDOMEN, THIGHS, OR UPPER ARM, ROTATE INJECTION SITES. active Not Available Not Available No t Available Vitals Date Recorded Body temperature Heart rate Respiratory rate Oxygen saturation Oxygen saturation in Arterial blood by Pulse oximetry Inhaled oxygen flow rate Systolic blood pressure Diastolic blood pressure Provider Name and Address Organization Details Last Updated DateTime 3 97.8 [degF] 64 /min 20 /min 91 % 91 % 2 L/min 146 mm[Hg] 65 mm[Hg] Not Available [employer] 3 16:22:45 Date Recorded Heart rate Oxygen saturation Oxygen saturation in Arterial blood by Pulse oximetry Body temperature Respiratory rate Systolic blood pressure Diastolic blood pressure Provider Name and Address Organization Details Last Updated DateTime 4 78 /min 93 % 93 % 97.1 [degF] 16 /min 137 mm[Hg] 76 mm[Hg] Not Available [employer] 4 20:04:27 Date Recorded Oxygen saturation Oxygen saturation in Arterial blood by Pulse oximetry Respiratory rate Body temperature Heart rate Body height Body weight Heart rate Body height Oxygen saturation Oxygen saturation in Arterial blood by Pulse oximetry Body temperature Body weight Respiratory rate Systolic blood pressure Diastolic blood pressure Systolic blood pressure Diastolic blood pressure Provider Name and Address Organization Details Last Updated DateTime 2 99 % 99 % 20 /min 98.9 [degF] 78 /min 152.4 cm 453.592 g 78 /min 154.94 cm 99 % 99 % 98.9 [degF] 48856.2 4 g 20 /min 164 mm[Hg] 63 mm[Hg] 164 mm[Hg] 63 mm[Hg] Not Available [employer] 2 14:54:34 Social History None recorded. Functional Status None recorded. Mental Status None recorded. Family History Nothing Reported. Medical History No medical history recorded. Gynecological HistoryNo gynecological history recorded. Obstetrics History GPAL:G 0 P 0 0 0 0 Past Encounters Encounter ID Performer Location Encounter Start Date Encounter Closed Date Diagnosis/Indication Diagnosis SNOMED-CT Code Diagnosis ICD10 Code Diagnosis Note [id number] Hanane Mena MD Main - [address] [address] 02/16/2022 14:13:00 05/29/2022 14:46:24 Acute low back pain 835089843 M54.50 Pt p/w 5 days of atraumatic low back pain radiating to L leg w/o red flag features (no fever, trauma, hx malignancy , urinary incontinen ce/retenti on, neurologic deficits). Pain leading to functional decline. Most likely MSK pain, will attempt pain control w/ heat and APAP 1g q6hr (no NSAIDs 2/2 CKD), recommend PCP f/up to consider home PT and imaging if sx fail to improve w/ conservati ve measures. Symptoms unlikey due to UTI (reports single episode of dysuria yesterday that resolved w/o interventi on), UA w/ 4+ protein (CKD) and 2+ ketones confirmed on repeat however pt/family deny hyperglyce mely or poor PO intake, POC CMP performed to evaluate for electrolyt es derangemen t (see below). Plan for formal UA w/ reflex, low suspicion for UTI so no abx given.If no improvemen t in pain consider imagingPer topology teacher, requestor asked for CBC w/ diff and CMP (not acknowledg ed in [facility] portal) but no orders placed. Reasonable to check CBC w/ diff and CMP thus orders placed. Ketonuria [id number] R82. 4 Pt with 2+ urinary ketones of unclear etiology, reports glucose usually 100s, on POC CMP 326 however no sig electrolyt e derangemen t (CO2 27, Cr 1.3 c/w stage III CKD on eCW problem list) thus high suspicion for POC urine dip error. No symptoms of DKA/HHS. Formal UA sent. Encourage pt to check FSG QID and call PCP if FSG > 350. [id number] [facility] [address] [place] [phone] 04/08/2023 16:22:43 04/08/2023 23:08:09 [facility] [id number] R09.02 [id number] Wander Smith MD Main - [address] [address] 09/18/2024 20:04:23 09/18/2024 21:06:53 Acute exacerbation of chronic obstructive pulmonary disease [id number] J44.1 Health Concerns Section Related Observation LastModified by Organization Detai ls LastModified Time None Recorded Concern Status LastModified by Organization Details LastModified Time None Recorded Advance Directives Directive None Recorded Payers Encounter Date Sequence Insurance Name Policy Number Policy Rendon Covered Member ID Rendon Member ID Guarantor Name 02/16/2022 1 [facility] DOS PRIOR TO 2023 - DUAL ELIGIBLE (MEDICARE REPLACEMENT/AD VANTAGE - HMO) Katherine Griffith [id number] Katherine Griffith 04/08/2023 1 [facility] CARE ALLIANCE - DOS ON OR AFTER 2023 - DUAL ELIGIBLE - HALFWAY OPTIONS AND ONE CARE (MEDICARE REPLACEMENT/AD VANTAGE - HMO) Katherine Griffith [id number] Katherine Griffith 09/18/2024 1 [employer] CARE ALLIANCE - DOS ON OR AFTER 2023 - DUAL ELIGIBLE - HALFWAY OPTIONS AND ONE CARE (MEDICARE REPLACEMENT/AD VANTAGE - HMO) Katherine Griffith [id number] Katherine Griffith Notes Date Note Type Note Provider Name and Address Organization Details Recorded Time 02/16/2022 text/html HPI: Allergies: metformin, sitagliptin (abd pain) Patient reports having low back pain radiating to left leg x 4 days. Patient also having urinary frequency. Pt has been using topical ointments with no relief of pain. Has not tried OTC medications. Pt states pain worse with ambulation and movement. Patient unable to come to our walk in center. .................... .................... .................... .................... .................... .................... .................... . Auricular Acupuncturist Note: Patient is a 76 year old female with lower back pain and frequent urination. Patient alert, oriented and ambulatory. Patient in obvious pain/discomfort, airway patent, breathing normally, skin WPD. Patient states pain began 4 days ago. This pain has never happened before. Pain started lower back bilaterally and radiates down her left leg. This is making it difficult to walk and use the restroom. Patient complains of pain when urinating, frequent urinating, malodor and some incontinence. Patient was seen by urologist last month according to caregivers non medical, kidney function was good. Urine sample obtained and dipped; changes in PRO, SG and KET detected. Urine sent to [facility] for UA and Culture. Vital signs obtained and all within normal limits. Red flags discussed. Consulted with Dr. Mena. Patient is to follow up with PCP/care team regarding her signs, symptoms and todays visit. Dr. Mena recommended blood work. Auricular Acupuncturist Sara Davis was dispatched for procedure. See topology teacher Sara Davis run report for further patient care details. .................... .................... .................... .................... .................... .................... .................... . Disposition: Fulfilled Hx obtained by me:Per chart review has hx T2DM on insulin, stage III CKD, HFpEF, PVD, renal artery stenosis, Severe , HTN, lumbar disc disease w/ radiculopathy, post-menopausal atrophic vaginitis, morbid obesity who is reporting bilateral low back pain radiating down L leg, denies trauma, denies prior back pain but see one liner which suggests h Hanane Mena MD [address] [facility],[address], [place], [address], [place] 02/16/2022 16:24:46 04/08/2023 text/html CRC Nursing Assessment: Reason For Request: Daughter reporting pt discharged yesterday from hosptial>everything is fine leading up to discharged 85/86 oxygen and daughter is worred about it, want to try instED before. Want to see if there is liquid in her lungs as well. Chief Complaints: Shortness of Breath/Dyspnea PMH: Diabetes, Hypertension, COPD/Asthma Comments: Daughter calling on behalf of member with request for [facility] for eval increased SOB and decreased oxygen levels. Daughter states member talking in full sentences with no acute distress. Daughter could not provide further information. Discuss if symptoms progress to seek emergent care.-verbalize understanding. Verify member name/- Damien Alfredo MD [address] [facility],[address], [place], [address], [place] 04/08/2023 16:28:34 09/18/2024 text/html [facility] Nurse Triage Notes (Elina Lopez - RN): Patient Reports: Cough Denies: Increased work of breathing/labored ? with or without fever Unable to speak in full sentences without distress Discoloration of skin -cyanosis Needs to sleep sitting up, can? t catch breath Shortness of breath in setting of confusion Chief Complaints: Weakness, Fever/chills PMH: Hypertension, COPD/Asthma, Diabetes Mellitus Type 2, Chronic Kidney Disease, Osteoarthritis, Asthma Comments: Patient think she has a fever today, does not have a thermometer in the home. Patient has a slight dry cough. Voice is hoarse. Denies increased shortness of breath. Denies body aches or sore throat. Daughter requesting blood work s/p surgery to left leg surgery on 09/11. Education provided on the response time and the member was advised to monitor reported s/s and seek emergency treatment if needed. Auricular Acupuncturist Organization Information for [employer] Legal Name: [facility] Address: [address] [place] [address], [place]es [address], Victorian Literature Professor: Louis Stockton MD CLIA No.: [id number] Auricular Acupuncturist POC Test Results from [facility] - ALS Rapid COVID antigen (20:02:29) COVID: - Rapid influenza antigen (20:02:30) Flu: - Wander Smith MD [address] [place] [address],[address], [place], [address], [place] - [employer] 09/18/2024 21:05:29 OBGyn Episode No OBEpisode recorded.
== END 2024-11-14 11:17 | disposition home or self-care (01) ==
PROVIDERS: PCP Internal Medicine; Visit Provider Internal Medicine
DX: I12.9 Hypertensive chronic kidney disease with stage 1 through stage 4 chronic kidney disease, or unspecified chronic kidney disease (principal); N18.32 Chronic kidney disease, stage 3b; E21.3 Hyperparathyroidism, unspecified; F32.0 Major depressive disorder, single episode, mild; J44.9 Chronic obstructive pulmonary disease, unspecified; I50.22 Chronic systolic (congestive) heart failure; E66.01 Morbid (severe) obesity due to excess calories; Z68.41 Body mass index [BMI] 40.0-44.9, adult; E11.22 Type 2 diabetes mellitus with diabetic chronic kidney disease; E11.65 Type 2 diabetes mellitus with hyperglycemia; Z79.4 Long term (current) use of insulin; Z23 Encounter for immunization

== ENCOUNTER 2024-11-14 11:30 | Outpatient (REF) | payer OTHER, SELFPAY ==
[2024-11-14 12:13] LABS: Appearance Urine Clear; Color Urine Yellow; Glucose Urine UA 100 mg/dL (Negative); Leukocyte Esterase Urine Small (1+) (Negative); Nitrite Urine Negative (Negative); Specific Gravity - Urine 1.015 (1.005-1.025); UMIC TRIGGER UA YES; Urine Blood Negative (Negative); Urine Ketones Negative (Negative); Urine Protein 300 (3+) mg/dL (Neg-Trace)
[2024-11-14 12:15] LABS: Bacteria Urine None Seen (None Seen); Hyaline Casts Urine 0-2 /LPF (0-2); RBC Urine 0-2 /HPF (0-2); Squamous Epithelial Cell Urine 0-2 /HPF (0-2)
[2024-11-14 12:39] LABS: Parathyroid Hormone Intact 101.2 pg/mL (8.7-77.1)
--- OUTSIDE RECORDS SUMMARY | 2024-11-14 13:11 | XMS_ITS | Encounter Summary ---
Author Organization [facility] Address [address] [address] Phone Care Team Providers Care Sole Molding Machine Operator Name Role Phone Marycarmen Quijano MD Primary Care Provider [phone] Reason for Visit * Reason Comments Chronic Kidney Disease Encounter Details Date Type Department Care Team (Latest Contact Info) Description 11/14/2024 9:00 AM EST Office Visit [facility] [address] [address] Alycia Rios ARNP [address] [address] Stage 3b chronic kidney disease [...] Visit [facility] [address] [place] [address] Dominick Reece MD [address] [facility] [address] [place] [address] Scheduled Orders Name Type Priority [...] 1.54(A) 0.50 - 1.10 mg/dL eGFR Non-Afr Armenian 32 09/05/2024 Historical Provider LAB BLOOD ORDERABLES Ananya l Result * (ABNORMAL) EXT RESULT ENTRY (07/19/2024) Sodium 143 137 - 147 Potassium 3.8 3.4 - 5.5 Carbon Dioxide 30 mmol/L Anion Gap 14 <=30 MMOL/L Glucose 146 60 - 200 BUN 25(A) 4 - 21 mg/dL Creatinine 1.63(A) 0.50 - 1.10 mg/dL Calcium 9.8 8.7 - 10.7 mg/dL eGFR Non-Afr Armenian 30 07/19/2024 Historical Provider LAB BLOOD ORDERABLES Ananya l Result documented in this encounter Visit Diagnoses Diagnosis Stage 3b chronic kidney disease (HCC)- Primary Persistent proteinuria Renal osteodystrophy documented in this encounter Care Teams Sole Molding Machine Operator Relationship Specialty Start Date End Date Marycarmen Quijano MD [address] [place] [id number] PCP - General 10/14/20 documented as of this encounter
--- OUTSIDE RECORDS SUMMARY | 2024-11-14 13:11 | XMS_ITS | Clinical Summary ---
Author Organization [facility] Address [address] [address] Phone Care Team Providers Care Police Specialist Name Role Phone Marycarmen Qiujano MD Primary Care Provider [phone] Allergies Active Allergy Reactions Criticality Noted Date [...] day Active ergocalciferol (VITAMIN D-2) 1.25 MG (92414 UT) capsule Take 1 capsule by mouth [...] failure 01/28/2021 Atherosclerotic heart diseas e of [place] coronary artery without angina pectoris 01/28/2021 Chronic [...] arteriosclerosis 07/11/2012 Overview (12/07/2022): Cath 01/2010 at [facility] showed LCx 80% and ostial [...] Office Visit [facility] [address] [facility] [address] [place] [address] Alycia Rios ARNP Stage 3b chronic kidney disease (HCC) (Primary Dx); Persistent proteinuria; Renal osteodystrophy 10/06/2024 Telephone [facility] [address] [facility] [address] [place] [address] Alycia Causey from Last 3 [...] Visit [facility] [address] [place] [address] Dominick Reece MD [address] [facility] [address] [place] [address] Health Maintenance Due Date Last [...] 1.54(A) 0.50 - 1.10 mg/dL eGFR Non-Afr Tajik 32 09/05/2024 Historical Provider MD LAB BLOOD [...] A1C 8.5(H) <5 % PVNMA Comments From [facility] PVNMA Creatinine 1.35(H) 0.70 - 1.30 mg/dl PVNMA Potassium 4.5 3.5 - 5.1 mmol/L PVNMA Calcium 8.8 8.4 - 10.2 mg/dl PVNMA eGFR Non- 38(L) >60 ml/min PVNMA 09/18/2020 us [facility] LAB [id number] LICITED RESULTS Final Result PVNMA from Last 3 Months or Most Recently Relevant to Health Maintenance Insurance [facility] ([id number]) [facility] ([id number]) Care Teams Police Specialist Relationship Specialty Start Date End Date Marycarmen Quijano MD [address] [place] [phone] PCP - General 10/14/20
[2024-11-14 14:00] LABS: Creatinine Urine 42.24 mg/dL; Microalbum/Creatinine Ratio Ur 3229.1 ug/mg cr (<30); Protein/Creatinine Ratio, Ur 4.73 (<0.2); Total Protein Urine Random 200 mg/dL (<12)
== END 2024-11-14 11:31 | disposition home or self-care (01) ==
LOC: HO.LAB 11:30
PROVIDERS: PCP Internal Medicine; Visit Provider Internal Medicine Nephrology
DX: E11.22 Type 2 diabetes mellitus with diabetic chronic kidney disease (principal); I13.0 Hypertensive heart and chronic kidney disease with heart failure and stage 1 through stage 4 chronic kidney disease, or unspecified chronic kidney disease; N18.32 Chronic kidney disease, stage 3b; I50.9 Heart failure, unspecified; Z23 Encounter for immunization; R80.1 Persistent proteinuria, unspecified; N25.0 Renal osteodystrophy; E11.65 Type 2 diabetes mellitus with hyperglycemia; E21.3 Hyperparathyroidism, unspecified; E78.5 Hyperlipidemia, unspecified; F32.0 Major depressive disorder, single episode, mild; J44.9 Chronic obstructive pulmonary disease, unspecified; E66.01 Morbid (severe) obesity due to excess calories; Z68.41 Body mass index [BMI] 40.0-44.9, adult; Z79.4 Long term (current) use of insulin
CPT/HCPCS: 36415; 80053; 80061; 81001; 82043; 82306; 82310; 82330; 82570; 82607; 82746; 83036; 83540; 83735; 83880; 83970; 84100; 84156; 85025; 87086; 90471; 90656; 96127; 99212

== ENCOUNTER 2024-12-01 10:28 | Outpatient (AMB) | payer OTHER, SELFPAY ==
[2024-12-01 10:31] VITALS: BP 158/56; PULSE 76; O2SAT 92; BMI 41.5
--- NOTE | 2024-12-01 10:31 | A.OFFVIS_ITS ---
Vital Signs 12/01/24 10:31 Height 4 ft 9 in Weight 191 lb 9.307 oz BMI 41.5 BP 158/56 H Blood Pressure Location Lt brachial Position Sitting Pulse 76 Pulse Source Pulse Oximeter Pulse Oximetry (%) 92 Oxygen Delivery Method Room Air Intake Visit Reasons: T2DM Intake Note: Patient present today for Type 2 Diabetes Mellitus Last Diabetic eye exam: 09/2024 Last Podiatry Visit: 08/2024 Random Glucose: 105 mg/dl HgA1C: 7.4% 11/14/24 Operations Manager Assistant Required: Yes Operations Manager Assistant Language: Clerical Investigator Services: Operations Manager Assistant Offered & Declined Accompanied by: HUMAN RELATIONS TEACHER Allergies ibuprofen [From Motrin] Allergy (Intermediate, Verified 12/01/24 10:36) High Blood Pressure, Rash oxycodone [From Percocet] Allergy (Intermediate, Verified 12/01/24 10:36) Itching tirzepatide [From Mounjaro] Adverse Reaction (Severe, Verified 12/01/24 10:36) Diarrhea HPI HPI T2DM: Details: Pt is a 79 y/o female who presents today for a dm follow up. She is accompanied today by her daughter who translates today. Significant past medical history of peripheral vascular disease, hyperparathyroidism, chronic kidney disease, vitamin-D deficiency, proteinuria, CHF, hypertension, hyperlipidemia come, o bstructive sleep apnea and anemia presenting today for a follow up regarding her diabetes. Endo: Initially diagnosed with T2DM in 1999. Recent A1c is 8.7. Current regimen: Toujeo 36 units qHS and novolog 4 units. And at last visit was started on Ozempic 0.5 mg weekly. She never picked up the Ozempic. cgm- usage 96%, G mi 6.9, average glucose 150, variability 25%. Very hyperglycemic 2%, hyperglycemic 17%, in range 80%, hypoglycemic 1% Hypoglycemia is occurring overnight. -Was initially started on treatment with Metformin. She reports metformin was stopped due to an issue with her kidney. She also failed Trulicity due to GI distress. I discontinue Jardiance due to frequent UTIs and yeast infections. She was started on mounjaro but caused diarrhea so she d/c this. Treats lows with juice. Checks sugar after to ensure it is rising. Treats according to rule of 15's. Has her eyes checked yearly, last eye exam needs to make appt . Denies retinopathy. Has neuropathy. On gabapentin. Sees podiatry. Has nephropathy, on losartan . Is followed by nephrology Has HLD, on Atorvastatin 80 mg PO daily. Has CAD. Had diabetes education. CV: Bp today is 158/56 and she is on amlodipine 10 mg, furosemide 20 mg b.i.d., losartan 25 mg and hydralazine 25 mg TID. No chest pain, shortness of breath or palpitations. Cholesterol is managed with atorvastatin 80 mg. Nephro: Follows with Nephrology, Dr. Reece. She states that she knows to avoid NSAIDs. -she has not yet followed with endocrine for her hyperparathyroidism but has been following with the transmission inspector. She is supposed to be taking vitamin-D and last vitamin-D was a little bit on the lower side. She has become more consistent with this recently. 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 Aortic stenosis CKD (chronic kidney disease) stage 3, GFR 30-59 ml/min Dyslipidemia Diabetic polyneuropathy associated with type 2 diabetes mellitus Diabetic nephropathy associated with type 2 diabetes mellitus Chronic kidney disease Hypertension Asthma Thalamic pain syndrome GERD (gastroesophageal reflux disease) Morbid obesity Surgical History H/O aortic valve replacement History of breast lump/mass excision History of tubal ligation History of cholecystectomy Family History Sister History of renal pelvis cancer Father Suicide Mother Lung disease Diabetes mellitus Social History Household Members: Family Housing: House Do you presently have visiting nurse or other home services: Yes (charging manipulator) Alcohol intake: never Comment: pt stays with pt. Patient Tobacco Use Status: Former Tobacco user Tobacco use type: Cigarette Years Smoked: 5 years e-Cigarette/Vaping Use: Never Used Second Hand Smoke Exposure: No service: No Current occupational status: unemployed and disabled Gender identity: Female Cognitive needs: Yes Hearing needs: No Vision needs: No Female Reproductive History Menstrual Age of Menarche: 10 Physical Exam Const Orientation/consciousness: patient oriented x3 Neck Neck: Yes no lymphadenopathy Thyroid: Thyroid normal Carotids: no bruits Resp Auscultation: clear to auscultation bilaterally Cardio Rate: regular rate Rhythm: regular rhythm Heart sounds: S1 normal heart sound present and S2 normal heart sound present Peripheral pulses: dorsalis pedis present Neuro General: patient oriented x3, gait normal and no focal motor deficits Extrem Other: Monofilament sensation decreased bilaterally. Vibratory diminished intact bilaterally. Skin intact. General: Yes normal to inspection Results Reviewed Results Reviewed: Laboratory Tests 05/08/24 05/19/24 11/14/24 08:48 10:27 07:49 Sodium 142 144 Potassium 4.4 3.9 Chloride 109 H 109 H Carbon Dioxide 28 27 Anion Gap 9 L 12 BUN 25 H 35 H Creatinine 1.39 1.18 Estimated GFR 37 44 Fasting Glucose 131 H Estimat Average Glucose 166 Hgb A1c (Clinic) 8.7 H Hemoglobin A1c % 7.4 H Calcium 9.4 Ionized Calcium 5.4 AST 21 ALT 19 NT-Pro-B Natriuret Pep 206 Triglycerides 161 H Cholesterol 172 LDL Cholesterol, Calc 98 HDL Cholesterol 42 Assessment & Plan Assessment & Plan (1) Uncontrolled type 2 diabetes mellitus with chronic kidney disease, with long-term current use of insulin: Code(s): E11.22 - Type 2 diabetes mellitus with diabetic chronic kidney disease; E11.65 - Type 2 diabetes mellitus with hyperglycemia; Z79.4 - half-way (current) use of insulin Category: Medical Plan: increase ozempic to 1 mg weekly decrease toujeo to 24 units daily continue novology 4 units TID with meals she will call me sooner if still getting any low blood sugars return in 3 months or sooner if needed (2) Vitamin D deficiency: Code(s): E55.9 - Vitamin D deficiency, unspecified Category: Medical Plan: advised to take vitamin D. They will call me to let me know the strength they have at home (3) Hypertension: Code(s): I10 - Essential (primary) hypertension Category: Medical Plan: elevated above goal. She was rushing for this appointment and forgot (4) CKD stage 3b, GFR 30-44 ml/min: Code(s): N18.32 - Chronic kidney disease, stage 3b Category: Medical Plan: following with nephrololgy (5) Hyperparathyroidism: Code(s): E21.3 - Hyperparathyroidism, unspecified Category: Medical Plan: discussed importance of compliance with vitamin d she is following with Dr. Reece for management of renal function which has been stable will have this evaluated by Dr. Mao (6) Hyperlipidemia LDL goal <70: Code(s): E78.5 - Hyperlipidemia, unspecified Category: Medical Plan: admits to missing some doses daughter is going to check pill box we will monitor and discussed importance of compliance. reports some dietary indiscretions. Medications: New semaglutide (Ozempic) 1 mg (0.75 mL) subcut QWEEK 3 mL 5RF Changed From Novolog FlexPen U-100 Insulin (insulin aspart U-100) 5 - 10 units (0.05 - 0.1 mL) subcut TID 15 mL 3RF NS To Novolog FlexPen U-100 Insulin (insulin aspart U-100) with meals 4 units (0.04 mL) subcut TID 15 mL 3RF NS From insulin glargine U-300 conc (Toujeo SoloStar U-300 Insulin) 36 units (0.12 mL) subcut DAILY 90 days 10.8 mL 1RF To insulin glargine U-300 conc (Toujeo SoloStar U-300 Insulin) 24 units (0.08 mL) subcut DAILY 90 days 9 mL 1RF Discontinued semaglutide (Ozempic) Discontinued Reason: Doctor's Order 0.5 mg (0.736 mL) subcut QWEEK 4 weeks 2.944 mL 0RF Coding Level of Care Code Est Pt Level 4 (84990) Complex EM visit Add On G2211 Diagnoses Uncontrolled type 2 diabetes mellitus with chronic kidney disease, with long- term current use of insulin E11.22; E11.65; Z79.4 Vitamin D deficiency E55.9 Essential hypertension I10 CKD stage 3b, GFR 30-44 ml/min N18.32 Hyperparathyroidism E21.3 Hyperlipidemia LDL goal <70 E78.5
[2024-12-01 10:45] LABS: Glucose, Whole Blood 105 mg/dL (60-115)
--- OUTSIDE RECORDS SUMMARY | 2024-12-01 11:55 | XMS_ITS | Encounter Summary ---
Author Organization [employer] Address [address] [place] [address] [address], [place] [address] Care Team Providers Care Recreation Technician Name Role Phone Marycarmen Quijano MD Primary Care Provider [phone] Marycarmen Quijano MD Primary Care Provider [phone] Reason for Visit * Reason Comments Med Refill Encounter Details Date Type Department Care Team (Late st Contact Info) Description 11/10/2022 Refill [facility] MEDICINE [address] [place], [place] [phone] Marycarmen Quijano MD [address] [place], [place] [phone] Social History Tobacco Use Types Packs/Day Years Used Date Smoking Tobacco: Never Assessed Comments Unknown Sex and Gender Information Value Date Recorded Sex Assigned at Female 08/03/2022 10:14 AM EDT Legal Sex Female 10:14 AM EDT Gender Identity Choose not to disclose 10:14 AM EDT Sexual Orientation Choose not to disclose 2021 10:14 AM EDT documented as of this encounter Plan of Treatment Upcoming Encounters Date Type Department Care Team (Late st Contact Info) Description 12/04/2024 9:00 AM EST Office Visit [facility] ADULT DENTAL [address] [place], [place] [phone] Moy Caldwell DDS [address] [place], [place] [phone] 01/10/2025 10:00 AM EDT Office Visit [facility] ADULT DENTAL [address] [place] [address] Johana Garcia [address] [place] [address] documented as of this encounter Visit Diagnoses Not on filedocumented in this encounter Care Teams Recreation Technician Relationship Specialty Start Date End Date Marycarmen Quijano MD [address] [place] [address] PCP - General Family Medicine 07/26/13 02/01/23 Marycarmen Quijano MD [address] [place] [address] PCP - General Family Medicine 03/02/23 06/20/23 documented as of this encounter
--- OUTSIDE RECORDS SUMMARY | 2024-12-01 11:55 | XMS_ITS | Clinical Summary ---
Author Organization [facility][1] P. Address [address] [address] Phone Care Team Providers Care Dimensional Integration Engineer Name Role Phone Marycarmen Quijano MD Primary Care Provider [phone] Allergies Active Allergy Reactions Criticality Noted Date [...] day Active ergocalciferol (VITAMIN D-2) 1.25 MG (01553 UT) capsule Take 1 capsule by mouth [...] mouth 1 (one) time each day Active losartan (Cozaar) 25 MG tabletIndicati ons:Stage 3b chronic kidney disease (HCC),Persiste nt proteinuria,Hy pertensive renal disease Take 1 tablet (25 mg total) by mouth 1 (one) time each day 30 tablet 11 5 026 Active Active Problems Problem Noted Date Diagnosed Date Vitamin D deficiency, not otherwise specified Stage 3b chronic kidney disease 03/28/2024 Severe [...] failure 01/28/2021 Atherosclerotic heart diseas e of [place] coronary artery without angina pectoris 01/28/2021 Chronic [...] arteriosclerosis 07/11/2012 Overview (12/07/2022): Cath 01/2010 at [facility] showed LCx 80% and ostial LAD [...] Office Visit [facility] [address] [place] [phone] Alycia Rios ARNP Stage 3b chronic kidney disease (HCC) (Primary Dx); Persistent proteinuria; Renal osteodystrophy; Hypertensive renal disease; Vitamin D deficiency, not otherwise specified 10/06/2024 Telephone [facility] [address] [phone] Alycia Causey from Last 3 Months Immunizations [...] Visit [facility] [address] [place] [address] Dominick Reece MD [address] [facility] [address] [place] [address] Health Maintenance Due Date Last [...] 1.54(A) 0.50 - 1.10 mg/dL eGFR Non-Afr Cameroonian 32 09/05/2024 Historical Provider MD LAB BLOOD [...] A1C 8.5(H) <5 % [facility] [place] [facility] [place] Creatinine 1.35(H) 0.70 - 1.30 mg/dl PVNMA Potassium 4.5 3.5 - 5.1 mmol/L PVNMA Calcium 8.8 8.4 - 10.2 mg/dl PVNMA eGFR Non- 38(L) >60 ml/min PVNMA 09/18/2020 [facility] Conversion LAB [id number] LICITED RESULTS Final Result PVNMA from Last 3 Months or Most Recently Relevant to Health Maintenance Insurance [facility] ([id number]) [facility] MCR ([id number]) Care Teams Dimensional Integration Engineer Relationship Specialty Start Date End Date Marycarmen Quijano MD [address] [place] [phone] PCP - General 10/14/20
--- OUTSIDE RECORDS SUMMARY | 2024-12-01 11:55 | XMS_ITS | Encounter Summary ---
Author Organization [facility] Address [address] [address] Phone Care Team Providers Care Commercial Production Editor Name Role Phone Marycarmen Quijano MD Primary Care Provider [phone] Reason for Visit * Reason Comments Chronic Kidney Disease Encounter Details Date Type Department Care Team ([facility] st Contact Info) Description 11/14/2024 9:00 AM EST Office Visit [facility] [address] [address] Alycia Rios ARNP [address] [address] Stage 3b chronic kidney disease (HCC) (Primary Dx); Persistent proteinuria; Renal osteodystrophy; Hypertensive renal disease; Vitamin D deficiency, not otherwise specified Social History Tobacco Use Types Packs/Day Years [...] 12:00 PM EST documented in this encounter Progress Notes * Alycia Rios ARNP - 11/14/2024 9:00 AM EST Images from the original note were not included. Patient Name: Katherine Griffith, Female Date of : 1945, 79 y.o. Date: 11/14/2024 [] New Patient [x] Established Patient [] New Hospital Follow Up [] Established Hospital Follow Up [] Telemed Visit [] H&P Referring MD: Marycarmen Quijano MD PCP: Marycarmen Quijano MD Reason For Visit CKD 3a, DM, HTN Katherine Griffith is a 79 y.o. female seen today in f/u regarding stage 3b CKD on backdrop of DM and HTN. She is cont to c/o MSK aches involving hips/low back/legs. H/o of UTIs - followed by Urology, but continues to suffer with urinary incontinence. Off SGLT2i for this reason. Accompanied with daughter today. Meds reveiwed Denies chest pain or shortness of breath. No blood in the urine or difficulties urinating. Complains of mild arthritic complaints but avoids use of NSAIDs. The following portions of the patient's chart were reviewed in this encounter and updated as appropriate: Allergies Meds Problems Med Hx Surg Hx Fam Hx Constitutional: Negative for chills and fever. HENT: Negative for hearing loss and nosebleeds. Eyes: Negative for blurred vision and double vision. Respiratory: Negative for cough and shortness of breath. Cardiovascular: Negative for chest pain, palpitations and leg swelling. Gastrointestinal: Negative for abdominal pain, diarrhea, nausea, vomiting and poor appetite. Genitourinary: Negative for dysuria, flank pain, frequency, hematuria and urgency. Musculoskeletal: Positive for back pain and joint pain. Chronic Skin: Negative for rash. Neurological: Negative for dizziness and headaches. Endo/Heme/Allergies: Negative. Psychiatric/Behavioral: Negative. Full 13 point review of systems unremarkable except as noted above. Past Medical History: Diagnosis Date Acute kidney failure (HCC) Asthma Chronic kidney disease Diabetes mellitus without mention of complication, type II or unspecified type, not stated as uncontrolled (HCC) Essential hypertension Gastroesophageal reflux disease Hyperlipidemia Hyposmolality and/or hyponatremia Ischemic heart disease aortic stenosis Morbid obesity (HCC) 02/28/2021 Other and unspecified hyperlipidemia Stage 3 chronic kidney disease Type 2 diabetes mellitus (HCC) PVD Past Surgical History: Procedure Laterality Date GALLBLADDER SURGERY Social History Tobacco Use Smoking status: Former Smokeless tobacco: Never Tobacco comments: Smoking History Info:Every day Substance Use Topics Alcohol use: No Family History Problem Relation Age of Onset Kidney disease Sibling brother Diabetes Sibling Diabetes Mother Diabetes Father Hypertension Sibling Hypertension Father Hypertension Mother Current Outpatient Medications Medication Sig Dispense Refill amLODIPine (NORVASC) 10 MG tablet Take 10 mg by mouth aspirin (ST SHARI) 81 MG EC tablet Take 81 mg by mouth atorvastatin (LIPITOR) 40 MG tablet Take 40 mg by mouth 1 (one) time each day atorvastatin (LIPITOR) 40 MG tablet Take 80 mg by mouth at bed time calcium carbonate (OS-RUFUS) 1250 (500 Ca) MG tablet Take 1 tablet by mouth 1 (one) time each day carvedilol (COREG) 25 MG tablet Take 25 mg by mouth 2 (two) times a day cilostazol (PLETAL) 100 MG tablet Take 1 tablet by mouth 2 (two) times a day clopidogrel (PLAVIX) 75 MG tablet Take 1 tablet by mouth 1 (one) time each day Cyanocobalamin (Vitamin B-12) [address] 1,000 mcg under the tongue 1 (one) time each day ergocalciferol (VITAMIN D-2) 1.25 MG (05825 UT) capsule Take 1 capsule by mouth 1 (one) time per week folic acid (FOLVITE) 1 MG tablet Take 1 mg by mouth 1 (one) time each day furosemide (LASIX) 40 MG tablet Take 40 mg by mouth 1 (one) time each day gabapentin (NEURONTIN) 300 MG capsule Take 1 capsule by mouth every night gabapentin (NEURONTIN) 300 MG capsule Take 300 mg by mouth in the morning and 300 mg in the eveningand 300 mg before bedtime. hydrALAZINE 50 MG tablet Take 25 mg by mouth in the morning and 25 mg in the evening and 25 mg before bedtime. insulin aspart (NovoLOG FLEXPEN) 100 UNIT/ML injection INJECT 5-10 UNITS SUBCUTANEOUSLY THREE TIMES DAILY DIRECTED insulin glargine (Lantus) 100 UNIT/ML injection 4-5 units linaGLIPtin (Tradjenta) 5 MG tablet Take 1 tablet by mouth 1 (one) time each day 35 units montelukast (SINGULAIR) 10 MG tablet Take 10 mg by mouth every night omeprazole (PriLOSEC) [address] capsule Take 1 capsule by mouth 1 (one) time each day Ozempic, 0.25 or 0.5 MG/DOSE, 2 MG/3ML solution pen-injector 0.5 mg losartan (Cozaar) 25 MG tablet Take 1 tablet (25 mg total) by mouth 1 (one) time each day 30 [email or web address] No current facility-administered medications for this visit. Allergies Allergen Reactions Ibuprofen Other reaction(s): High BP Oxycodone Hcl Oxycodone-Acetaminophen Other reaction(s): hallucinations Objective: Vitals: 11/14/24 0915 BP: 136/60 Pulse: 63 SpO2: 97% Weight: 194 lb (88 kg) Vitals reviewed. Constitutional: She is oriented to person, place, and time. She appears well- developed. She does not appear ill. No distress. Obese HEENT: Mouth/Throat: Oropharynx is clear and moist. Eyes: Conjunctivae are normal. Neck: No JVD present. Cardiovascular: Normal rate and regular rhythm. Murmur heard.She exhibits no edema. Pulmonary/Chest: Effort normal and breath sounds normal. No respiratory distress. Abdominal: Soft. There is no abdominal tenderness. No hernia. Negative CVA tenderness bilat Neurological: She is alert and oriented to person, place, and time. Skin: Skin is warm and dry. Psychiatric: She has a normal mood and affect. Her behavior is normal. eGFR Date Value Ref Range Status 05/08/2020 44 (L) >60 ml/min eGFR Non-Afr Guamanian Date Value Ref Range Status 09/05/2024 32 Final Chemistry Lab Units 09/05/24 0000 07/19/24 0000 05/08/24 0848 02/04/24 0000 01/25/24 0000 02/03/23 0943 12/07/22 1544 CREATININE mg/dL 1.54* 1.63* 1.39 1.56* 1.51* 1.60* 1.32 BUN mg/dL 25* 25* 25* 29* 31* 29* 26* EGFRNAFR 32 30 -- 32 -- -- -- GLUCOSE -- 146 -- -- -- -- -- POTASSIUM -- 3.8 4.4 4.0 4.2 4.1 4.3 SODIUM -- 143 142 142 140 143 141 CO2 mmol/L -- 30 28 -- -- 27 28 CHLORIDE mmol/L -- -- 109* 107.0 103.0 107 103 ALBUMIN g/dL -- -- 3.5 -- 3.5 3.3* 3.3* Bone Mineral Lab Units 07/19/24 0000 05/08/24 0848 02/04/24 0000 01/25/24 0000 02/03/23 0943 12/07/22 1544 CALCIUM mg/dL 9.8 9.2 9.0 9.8 9.1 8.9 PHOSPHORUS mg/dL -- 3.3 -- -- 4.4 4.5 MAGNESIUM mg/dL -- 2.2 -- -- 2.4 2.2 PTH pg/mL -- 121.6* -- -- 82* 109* VITAMIN D ng/mL -- 30.8* -- -- 45.1 35.8 CBC Lab Units 05/08/2484701/25/24 0000 12/07/22 1544 WBC AUTO X10*3/uL 10.0 12.2* 10.6 RBC AUTO X10*6/uL 4.87 -- 5.64* MCV fL 78.4* 74.6* 70.7* HEMATOCRIT % 38.2 41.7 39.9 HEMOGLOBIN g/dl 12.5 13.5 12.4 PLATELETS AUTO X10*3/uL 344 386 383 Urine Lab Units 05/08/2433 02/03/230 12/07/22 1627 PROT/CREAT RATIO UR 6.09* 3.12* 3.03* ALB MG/G CREAT UR ug/mg cr 3,421.7* 2,303.4 2,204.6 Urine Lab Units 05/08/24 0907 01/25/24 0000 02/03/230 12/07/22 1627 PH U 7.0 7.0 -- 5.5 5.5 COLOR U Yellow Yellow yellow Yellow Yellow GLUCOSE U MG/DL mg/dL 100* 100* -- >=1000* >=1000* WBC UR HPF /HPF 21-50* -- >50* 0-5 RBC UR HPF /HPF 0-2 -- 0-2 0-2 Iron Studies Lab Units 02/04/24 0000 01/25/24 0000 TIBC ug/dL -- 247 IRON SATURATION % 14 12 PLAN: Assessment & Plan 79 Y/O OBESE F STAGE 3 CKD DIABETIC HYPERTENSIVE PATIENT WITH SIGNIFICANT ALBUMINURIA AND CHRONIC BACK PAIN 1. CKD 3b: most c/w DN/HTN renal disease based on labs - stable creatinine, normal Lytes 2. DM: Target Hgb A1c <7% 3. HTN: boderline controlled; goal < 130/80; anxious appearing 4. Obesity: 5. Chronic Back Pain: doubt is related to her kidneys and most likely MSK from obesity 6. Proteinuria: most recent repeat UAC incr; c/w DN/HTN renal disease; Obesity assoc FSGS a possible contributor 7. Secondary Hyperparathyroidism: PTH 121, normal Ca/Phos, Target PTH <150 8. Vitamin D deficiency: On vitamin D supplement; check annually To Maximize renal protection: - r/s TORRI-inhibitor ( ARNOLDO or ARB) -hold SGLT2i given h/o UTI/urinary incontinency -look to add Kerendia -LDL target < 70 - cont to stress strict BP/BS control and avoid NSAIDS I explained to her and her Mom that she is at risk for prog CKD given her incr Scr and Uprot spillage PLAN: no change in meds; repeat UA and urine cult; encourage f/u with urol; cont to track renal labs; Start Losartan 25 mg QD; Check Renal lab in 1-2 weeks; cont to track UAC; avoid NSAIDs; stress importacnce of BP/BS control and WT loss; avoid NSAIDs and encourage WT loss Avoid SGLT2i as noted above given persistent urinary sxms 1. Stage 3b chronic kidney disease (HCC) 2. Persistent proteinuria 3. Renal osteodystrophy 4. Hypertensive renal disease 5. Vitamin D deficiency, not otherwise specified Orders Placed This Encounter PTH, intact CBC Urine Protein / creatinine ratio Urine Albumin / Creatinine Ratio Urinalysis with microscopic Urine culture PTH, intact Renal function panel CBC Urine Protein / creatinine ratio Urine Albumin / Creatinine Ratio Ferritin Iron Panel (Fe, TIBC, TSAT) losartan (Cozaar) 25 MG tablet Return in about 6 months (around 05/14/2025) for Next scheduled follow-up with Dr. Reece (in [place]) . ESTEBAN Monterroso Cosigned by Filipe Tee MD at 11/15/2024 10:04 AM EST documented in this encounter Plan of Treatment Upcoming Encounters Date Type Department Care Team (Late st Contact Info) Description 05/07/2025 3:00 PM EDT Office Visit [facility] [address] [place] [address] Dominick Reece MD [address] [facility] [address] [place] [phone] Scheduled Orders Name Type Priority Associated Diagnoses [...] 1.54(A) 0.50 - 1.10 mg/dL eGFR Non-Afr Guamanian 32 09/05/2024 us Historical Provider LAB BLOOD ORDERABLES Ananya l Result * (ABNORMAL) EXT RESULT ENTRY (07/19/2024) Sodium 143 137 - 147 Potassium 3.8 3.4 - 5.5 Carbon Dioxide 30 mmol/L Anion Gap 14 <=30 MMOL/L Glucose 146 60 - 200 BUN 25(A) 4 - 21 mg/dL Creatinine 1.63(A) 0.50 - 1.10 mg/dL Calcium 9.8 8.7 - 10.7 mg/dL eGFR Non-Afr Guamanian 30 07/19/2024 Historical Provider LAB BLOOD ORDERABLES Ananya l Result documented in this encounter Visit Diagnoses Diagnosis Stage 3b chronic kidney disease (HCC)- Primary Persistent proteinuria Renal osteodystrophy Hypertensive renal disease Vitamin D deficiency, not otherwise specified documented in this encounter Care Teams Commercial Production Editor Relationship Specialty Start Date End Date Marycarmen Quijano MD [address] [place] [address] PCP - General 10/14/20 documented as of this encounter
--- OUTSIDE RECORDS SUMMARY | 2024-12-01 11:55 | XMS_ITS | Encounter Summary ---
Author Organization [employer] Address [address] [place] [address] [address] [place] [address] Care Team Providers Care Broadcast Operations Technician Name Role Phone Marycarmen Quijano MD Primary Care Provider [phone] Reason for Visit * Reason Comments Med Refill Encounter Details Date Type Department Care Team (Late Contact Info) Description 03/10/[address] [facility] CHC MED & PEDS [address] [place], [place] [phone] Marycarmen Quijano MD [address] [place], [place] [phone] Primary hypertension Social History Tobacco Use Types Packs/Day Years Used Date Smoking Tobacco: Never Passive Smoke Exposure: Never Smokeless Tobacco: Never Alcohol Use Standard Drinks/Week Comments Never 0 (1 standard drink = 0.6 oz [...] Encounters Date Type Department Care Team (Late Contact Info) Description 12/04/2024 9:00 AM EST Office Visit [facility] ADULT DENTAL [address] [place] [address] oMy Caldwell DDS [address] [place], [place] [phone] 01/10/2025 10:00 AM EDT Office Visit [facility] ADULT DENTAL [address] [place] [address] Johana Garcia [address] [place], [place] [phone] documented as of this encounter Visit Diagnoses Diagnosis Primary hypertension Unspecified essential hypertension documented in this encounter Care Teams Broadcast Operations Technician Relationship Specialty Start Date End Date Marycarmen Quijano MD [address] [place] [address] PCP - General Family Medicine 03/02/23 06/20/23 documented as of this encounter
--- OUTSIDE RECORDS SUMMARY | 2024-12-01 11:55 | XMS_ITS | Patient Health Record ---
Author Organization [facility] Address [address] [place] [address] Care Team Providers Care Bowling Alley Operator Name Role Phone Jaime VORA, [place] Primary Care Provider Unavail able Randy Leal Unavailable [phone] Allergies Allergen (clinical drug ingredient) Drug/Non Drug Allergy documented on EMR Reaction Allergy Type Onset Date Status ibuprofen Advil Unknown Drug Allergy Active Aleve Unknown Drug Allergy Active Motrin Unknown Drug Allergy Active codeine Codeine Unknown Drug Allergy Active Morphine and Related Unknown Drug Allergy Active Results Component Value Reference Range Notes HEMOGLOBIN A1C (GLYCOHEMOGLO BIN) Reviewed date:10/21/2024 04:29:16 PM Interpretation: Performing Lab: Notes/Report: HEMOGLOBIN A1C % (HH) 8.6 HEMOGLOBIN A1C (GLYCOHEMOGLO BIN) Reviewed date:03/17/2024 11:26:54 AM Interpretation: Performing Lab: Notes/Report: HEMOGLOBIN A1C (HH) 8.6 Reason For Referral No Information Medications Medication SIG (Take, Route, Frequency, Duration) Notes Start Date End Date Status Torsemide 20 MG as directed Orally Active Vitamin D3 25 MCG (1000 UT) 1 capsule Orally Once a day Active Calcium Active Iron Active Mounjaro Active Extra Depth Orthopedic Shoes (1 Pair) with Customized Heat Molded Multidensity Innersoles (3 Pair) as directed Dx: NIDDM/Polyneuropathy (E11.42), Hammertoe Foot Deformity (M20.41,M20.42), Preulcerative Skin Lesion(s) (L85.1 03/17/2024 Active NovoLOG 100 UNIT/ML as directed Injection Active amLODIPine Besylate Active Toujeo SoloStar 300 UNIT/ML as directed Subcutaneous Act wendie Aspirin 81 MG 1 tablet Orally Once a day Active Atorvastatin Calcium 80 MG 1 tablet Orally Once a day Active Folic Acid Active Gabapentin 25 MG as directed Orally Active Losartan Potassium 25 MG 1 tablet Orally Once a day Active Social History Alcohol Screen Question Answer Notes Did you have a drink containing alcohol in the p ast year? No Points 0 Interpretation Negative Tobacco use other than smoking: Question Answer Notes Are you an other tobacco user? No Problems Problem Type SNOMED Code ICD Code Onset Dates Problem Status W/U Status Risk Notes Problem Acquired hammer toe of right foot (1414659129169074 ) Other hammer toe(s) (acquired), right foot (M20.41) Active confirmed Problem Acquired hammer toe of left foot (8478069300735243 ) Other hammer toe(s) (acquired), left foot (M20.42) Active confirmed Problem Polyneuropathy due to type 2 diabetes mellitus (521483083) Type 2 diabetes mellitus with diabetic polyneuropathy (E11.42) Active confirmed Vital Signs Height 4 ft 9 in in 06/16/2024 Weight 192 lbs 06/16/2024 BMI 41.54 kg/m2 06/16/2024 Procedures Procedure Date Ordered Date Performed Result Body Sit e 07143-PVRGGVZ NAIL, 6 OR MORE 03/17/2024 N/A 56407-EMQC SKIN LESIONS, 2 TO 4 03/17/2024 N/A 20497-YNVGIQZ NAIL, 6 OR MORE 06/16/2024 N/A 75922-NNPG SKIN LESIONS, 2 TO 4 06/16/2024 N/A Encounters Encounter [facility] Date [facility] [address] [facility]/17/[facility]24 Randyalycia Leal Type 2 diabetes mellitus with diabetic polyneuropathy E11.42 ; Tinea unguium B35.1 ; Other hammer toe(s) (acquired), right foot M20.41 and Other hammer toe(s) (acquired), left foot M20.[address] [address] 06/16/2024 Randy Leal Type 2 diabetes mellitus with diabetic polyneuropathy E11.42 and Tinea unguium B35.[address] [facility] [place] [address] 09/19/2024 Randy Leal Assessments Encounter Date Diagnosis (ICD Code) Assessment Notes Treatment Notes Treatment Clinical Notes Section Notes 03/17/2024 Type 2 diabetes mellitus with diabetic polyneuropathy (ICD-10 - E11.42) 03/17/2024 Tinea unguium (ICD-10 - B35.1) 06/16/2024 Type 2 diabetes mellitus with diabetic polyneuropathy (ICD-10 - E11.42) 06/16/2024 Tinea unguium (ICD-10 - B35.1) 03/17/2024 Other hammer toe(s) (acquired), right foot (ICD-10 - M20.41) Patient Educated with: DIABETIC FOOT CARE INSTRUCTIONS. pdf (DIABETIC FOOT CARE INSTRUCTIONS. pdf) 03/17/2024 Other hammer toe(s) (acquired), left foot (ICD-10 - M20.42) Plan Of Treatment Pending Test Test Name Order Date 80196-ONYIVYT NAIL, 6 OR MORE 03/17/2024 95814-CUVDDWW NAIL, 6 OR MORE 06/16/2024 90868-NRBL SKIN LESIONS, 2 TO 4 06/16/20 24 15681-WGXS SKIN LESIONS, 2 TO 4 03/17/20 Next Appt Details Provider Name:Randy Leal , 12/26/2024 11:30:00 AM, [address] [place] [address], [phone], Insurance Providers Payer Name Payer Address Payer Phone Subscriber Number Group Number Insured Name Patient Relationship to Insured Coverage Start Date Coverage End Date [facility] [employer] Claims [address] [place] [address] [id number] Katherine Jamil Self - patient is the insured Medical (General) History Medical History History ICD Code Anxiety Arthritis asthma Back,Hip,and Knee pain CAD (Cholesterol) Cataracts Depression Diabetic Heart disease High blood pressure Kidney disease Lung disease Numbness Poor circulation Reflux ( GERD) sinusitis Vascular phlebitis (clots) Chicken pox Replacement Heart Valves Transfusions Surgical History Surgery Date(Month/Year)
--- OUTSIDE RECORDS SUMMARY | 2024-12-01 11:55 | XMS_ITS | Encounter Summary ---
Author Organization [facility] Address [address] [place] [address] 7[address] [place] [address] Care Team Providers Care Consulting Technical Manager Name Role Phone Marycarmen Quijano MD Primary Care Provider [phone] Reason for Visit * Reason Comments Med Refill Encounter Details Date Type Department Care Team ([facility] Contact Info) Description 02/06/2023 Refill [facility] MEDICINE [address] [place] [address] Marycarmen Quijano MD [address] [place] [address] Social History Tobacco Use Types Packs/Day Years [...] not to disclose 2021 10:14 AM EDT COVID-19 Exposure Response Date Recorded In the last 10 days, have yo u been in contact with someone who was confirmed or suspected to have Coronavirus/COVID-19? No / Unsure 02/03/2023 1:53 PM EDT documented as of this encounter Plan of Treatment Upcoming Encounters Date Type Department Care Team ([facility] Contact Info) Description 12/04/2024 9:00 AM EST Office Visit [facility] ADULT DENTAL [address] [place], [place] [phone] Moy Caldwell DDS [address] [place] [address] 01/10/2025 10:00 AM EDT Office Visit [facility] ADULT DENTAL [address] [place] [address] Radha, Johana [address] [place] [address] documented as of this encounter Visit Diagnoses Not on filedocumented in this encounter Care Teams Consulting Technical Manager Relationship Specialty Start Date End Date Marycarmen Quijano MD [address] [place] [address] PCP - General Family Medicine 03/02/23 06/20/23 documented as of this encounter
--- OUTSIDE RECORDS SUMMARY | 2024-12-01 11:55 | XMS_ITS | Encounter Summary ---
Author Organization [employer] Address [address] [facility] [address]t [place] [address] Care Team Providers Care Hogshead Cooper Name Role Phone Marycarmen Quijano MD Primary Care Provider [phone] Reason for Visit * Reason Comments Med Refill Encounter Details Date Type Department Care Team ([facility] Contact Info) Description 04/12/2023 Refill [facility] WALK-IN CENTER [address] [place] [address] Jose Johnson MD [address] [place] [address] Social History Tobacco Use Types Packs/Day Years [...] suspected to have Coronavirus/COVID-19? No / Unsure 03/18/2023 7:54 AM EDT documented as of this encounter Plan of Treatment Upcoming Encounters Date Type Department Care Team ([facility] Contact Info) Description 12/04/2024 9:00 AM EST Office Visit [facility] ADULT DENTAL [address] [place], [place] [phone] Moy Caldwell DDS [address] [place] [address] 01/10/2025 10:00 AM EDT Office Visit [facility] ADULT DENTAL [address] [place] [address] Radha, Johana [address] [place] [address] documented as of this encounter Visit Diagnoses Not on filedocumented in this encounter Care Teams Hogshead Cooper Relationship Specialty Start Date End Date Marycarmen Quijano MD [address] [place] [address] PCP - General Family Medicine 03/02/23 06/20/23 documented as of this encounter
--- OUTSIDE RECORDS SUMMARY | 2024-12-01 11:55 | XMS_ITS | Encounter Summary ---
Author Organization [facility] Address [address] [place] [address] [address] [place] [address] Care Team Providers Care Slug Press Operator Name Role Phone Marycarmen Quijano MD Primary Care Provider [phone] Reason for Visit * Reason Comments Med Refill Encounter Details Date Type Department Care Team ([facility] Contact Info) Description 04/15/2023 Refill [facility] [address] [place] [address] Marycarmen Quijano MD [address] [place] [address] Social History Tobacco Use Types Packs/Day Years [...] Upcoming Encounters Date Type Department Care Team ([facility] Contact Info) Description 12/04/2024 9:00 AM EST Office Visit [facility] ADULT DENTAL [address] [place], [place] [phone] Moy Caldwell DDS [address] [place] [address] 01/10/2025 10:00 AM EDT Office Visit [facility] [address] [place] [address] Radha, Johana [address] [place] [address] documented as of this encounter Visit Diagnoses Not on filedocumented in this encounter Care Teams Slug Press Operator Relationship Specialty Start Date End Date Marycarmen Quijano MD [address] [place] [address] PCP - General Family Medicine 03/02/23 06/20/23 documented as of this encounter
--- OUTSIDE RECORDS SUMMARY | 2024-12-01 11:55 | XMS_ITS | Encounter Summary ---
Author Organization [facility] Address [address] [place] [address] [address] [place] [address] Care Team Providers Care Data Analyst Name Role Phone Marycarmen Quijano MD Primary Care Provider [phone] Reason for Visit * Reason Comments Med Refill Encounter Details Date Type Department Care Team (Late Contact Info) Description 03/07/2023 Refill [facility] [address] [place], [place] [phone] Marycarmen Quijano MD [address] [place], [place] [phone] Social History Tobacco Use Types Packs/Day Years [...] 12/04/2024 9:00 AM EST Office Visit [facility] ADULT DENTAL [address] [place], [place] [phone] Moy Caldwell DDS [address] [place], [place] [phone] 01/10/2025 10:00 AM EDT Office Visit [facility] ADULT DENTAL [address] [place] [address] Santos Garciaaris [address] [place] [address] documented as of this encounter Visit Diagnoses Not on filedocumented in this encounter Care Teams Data Analyst Relationship Specialty Start Date End Date Marycarmen Quijano MD [address] [place] [address] PCP - General Family Medicine 03/02/23 06/20/23 documented as of this encounter
--- OUTSIDE RECORDS SUMMARY | 2024-12-01 11:55 | XMS_ITS | Encounter Summary ---
Author Organization [facility] [facility] Address [address] [place] [address] [address] [place] [address] Care Team Providers Care Ancillary Services Manager Therapy Name Role Phone Marycarmen Quijano MD Primary Care Provider [phone] Reason for Visit * Reason Comments Med Refill Encounter Details Date Type Department Care Team ([facility] Contact Info) Description 03/03/2023 Refill [facility] [address] [place], [place] [phone] Marycarmen Quijano MD [address] [place] [address] Primary hypertension Social History Tobacco Use Types [...] Upcoming Encounters Date Type Department Care Team ([facility] Contact Info) Description 12/04/2024 9:00 AM EST Office Visit [facility] ADULT DENTAL [address] [place] [address] Moy Caldwell DDS [address] [place] [address] 01/10/2025 10:00 AM EDT Office Visit [facility] ADULT DENTAL [address] [place], [place] [phone] RadhaJohana [address] [place] [address] documented as of this encounter Visit Diagnoses Diagnosis Primary hypertension Unspecified essential hypertension documented in this encounter Care Teams Ancillary Services Manager Therapy Relationship Specialty Start Date End Date Marycarmen Quijano MD [address] [place] [address] PCP - General Family Medicine 03/02/23 06/20/23 documented as of this encounter
--- OUTSIDE RECORDS SUMMARY | 2024-12-01 11:55 | XMS_ITS | Encounter Summary ---
Author Organization [employer] [facility] Address [address] [place] [address] [address] [place] [address] Care Team Providers Care Restaurant Team Member Name Role Phone Marycarmen Quijano MD Primary Care Provider [phone] Reason for Visit * Reason Comments Med Refill Encounter Details Date Type Department Care Team ([facility] Contact Info) Description 04/04/2023 Refill [facility] [address] [place] [address] Marycarmen Quijano MD [address] [place] [address] Social History Tobacco Use Types Packs/Day Years [...] Upcoming Encounters Date Type Department Care Team ([facility] Contact Info) Description 12/04/2024 9:00 AM EST Office Visit [facility] ADULT DENT[facility] [address] [place], [place] [phone] Moy Caldwell DDS [address] [place] [address] 01/10/2025 10:00 AM EDT Office Visit [facility] ADULT D[facility] [address] [place] [address] Radha, Johana [address] [place] [address] documented as of this encounter Visit Diagnoses Not on filedocumented in this encounter Care Teams Restaurant Team Member Relationship Specialty Start Date End Date Marycarmen Quijano MD [address] [place] [address] PCP - General Family Medicine 03/02/23 06/20/23 documented as of this encounter
--- OUTSIDE RECORDS SUMMARY | 2024-12-01 11:55 | XMS_ITS | Data Portability ---
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 Lab rapid SARS CoV 2 Ag, QL IA, respiratory specimen 2023 024 [facility], [address] [place] [address], [id number], 4 09:06:35 rapid flu (A+B) 2023 024 [facility], [address] [place] [address], [phone], 4 09:06:54 CBC w/ auto diff 2021 022 YODIT [facility] (Centralized Electronic Ordering - All Locations), Patient Can Go To The Location Of Their Choice, 00:05:50 CMP, serum or plasma 2021 ara [facility] (Centralized Electronic Ordering - All Locations), Patient Can Go To The Location Of Their Choice, 19:37:00 unlisted lab - urinalysis w/reflex culture 2021 YODIT [facility] (Centralized Electronic Ordering - All Locations), Patient Can Go To The Location Of Their Choice, 01:53:39 cmp, whole blood + gloria 2021 [email or web address] [facility], [address] [place] [address], [phone], 16:24:03 urinalysis, dipstick 2021 [email or web address] [facility], [address] [place] [address], [phone], 16:24:43 Referral None recorded. Procedures None recorded. Surgeries None recorded. Imaging None recorded. Medication Orders prednisone [address] [facility], [address] [place] [address], [id number], 4 12:30:23 azithromyci n 250 mg tablet [address] [facility], [address] [place] [address], [id number], 4 12:30:23 azithromyci n 250 mg tablet 2023 024 [email or web address] [facility], [address] [place] [address], [id number], 4 20:08:15 prednisone 20 mg tablet 2023 024 [email or web address] [facility], [address] [place] [address], [id number], 4 20:08:15 ipratropium 0.5 mg-albutero l 3 mg (2.5 mg base)/3 mL nebulizatio n soln 2023 024 [email or web address] [facility], [address], [place], [id number], 4 20:08:15 Patient TargetsNo targets recorded. Patient InstructionsNo instructions recorded. Reason for Referral None Reported. Results Created Date Observation Date Name Description Value Unit Range Abnormal Flag Note LastModifiedBy Organization Detail LastModifiedTime 02/17/2002/17/2022 COMPL ETE CBC WITH DIFF WBC 17.6 K/mm3 (4.0-1 1.0) high Not Available [facility] (Centralized Electronic Ordering - All Locations) Patient Can Go To The Location Of Their Choice, 02/17/2022 00:05:50 02/17/2002/17/2022 COMPL ETE CBC WITH DIFF RBC 5.07 M/mm3 (4.20- 5.40) Not Available [facility] (Centralized Electronic Ordering - All Locations) Patient Can Go To The Location Of Their Choice, 02/17/2022 00:05:50 02/17/2002/17/2022 COMPL ETE CBC WITH DIFF HGB 11.9 gm/dL (11.7- 15.5) Not Available [facility] (Centralized Electronic Ordering - All Locations) Patient Can Go To The Location Of Their Choice, 02/17/2022 00:05:50 02/17/2002/17/2022 COMPL ETE CBC WITH DIFF HCT 40.2 % (35.7- 45.8) Not Available [facility] (Centralized Electronic Ordering - All Locations) Patient Can Go To The Location Of Their Choice, 02/17/2022 00:05:50 02/17/2002/17/2022 COMPL ETE CBC WITH DIFF MCV 79.3 fL (80.0- 100.0) low Not Available [facility] (Centralized Electronic Ordering - All Locations) Patient Can Go To The Location Of Their Choice, 02/17/2022 00:05:50 02/17/20 22 02/17/2022 COMPL ETE CBC WITH DIFF MCH 23.5 pg (27.0- 34.0) low Not Available [facility] (Centralized Electronic Ordering - All Locations) Patient Can Go To The Location Of Their Choice, 02/17/2022 00:05:50 02/17/20 22 02/17/2022 COMPL ETE CBC WITH DIFF MCHC 29.6 g/dL (33.0- 37.0) low Not Available [facility] (Centralized Electronic Ordering - All Locations) Patient Can Go To The Location Of Their Choice, 02/17/2022 00:05:50 02/17/2002/17/2022 COMPL ETE CBC WITH DIFF plt 340 K/mm3 (150-4 60) Not Available [facility] (Centralized Electronic Ordering - All Locations) Patient Can Go To The Location Of Their Choice, 02/17/2022 00:05:50 02/17/2002/17/2022 COMPL ETE CBC WITH DIFF RDW-SD 45.1 fL (<47.0 ) Not Available [facility] (Centralized Electronic Ordering - All Locations) Patient Can Go To The Location Of Their Choice, 02/17/2022 00:05:50 02/17/2002/17/2022 COMPL ETE CBC WITH DIFF MPV 9.9 fL (9.4-1 2.4) Not Available [facility] (Centralized Electronic Ordering - All Locations) Patient Can Go To The Location Of Their Choice, 02/17/2022 00:05:50 02/17/2002/17/2022 COMPL ETE CBC WITH DIFF automated NRBC 0.0 #/100 _WBC' s Not Available [facility] (Centralized Electronic Ordering - All Locations) Patient Can Go To The Location Of Their Choice, 02/17/2022 00:05:50 02/17/2002/17/2022 COMPL ETE CBC WITH DIFF abs. NRBC 0.0 K/mm3 Not Available [facility] (Centralized Electronic Ordering - All Locations) Patient Can Go To The Location Of Their Choice, 02/17/2022 00:05:50 05/16/20 22 02/17/2022 COMPL ETE CBC WITH DIFF neut # 13.8 K/mm3 (1.3-7 .0) high Not Available [facility] (Centralized Electronic Ordering - All Locations) Patient Can Go To The Location Of Their Choice, 02/17/2022 00:05:50 02/17/20 22 02/17/2022 COMPL ETE CBC WITH DIFF lymph # 2.2 K/mm3 (0.8-3 .1) Not Available [facility] (Centralized Electronic Ordering - All Locations) Patient Can Go To The Location Of Their Choice, 02/17/2022 00:05:50 02/17/20 22 02/17/2022 COMPL ETE CBC WITH DIFF mono# 1.3 K/mm3 (0.4-0 .9) high Not Available [facility] (Centralized Electronic Ordering - All Locations) Patient Can Go To The Location Of Their Choice, 02/17/2022 00:05:50 02/17/20 22 02/17/2022 COMPL ETE CBC WITH DIFF eo # 0.2 K/mm3 (0.0-0 .4) Not Available [facility] (Centralized Electronic Ordering - All Locations) Patient Can Go To The Location Of Their Choice, 02/17/2022 00:05:50 02/17/20 22 02/17/2022 COMPL ETE CBC WITH DIFF baso # 0.1 K/mm3 (0.0-0 .1) Not Available [facility] (Centralized Electronic Ordering - All Locations) Patient Can Go To The Location Of Their Choice, 02/17/2022 00:05:50 02/17/20 22 02/17/2022 COMPL ETE CBC WITH DIFF abs. imm gran 0.1 K/mm3 Not Available [facility] (Central[facility] Ordering - All Locations) Patient Can Go To The Location Of Their Choice, 02/17/2022 00:05:50 02/17/20 22 02/17/2022 COMPL ETE CBC WITH DIFF neut 78.3 % (44-76 ) high Not Available [facility] (Centralized Electronic Ordering - All Locations) Patient Can Go To The Location Of Their Choice, 02/17/2022 00:05:50 02/17/20 22 02/17/2022 COMPL ETE CBC WITH DIFF lymph 12.4 % (15-43 ) low Not Available [facility] (Centralized Electronic Ordering - All Locations) Patient Can Go To The Location Of Their Choice, 02/17/2022 00:05:50 02/17/2002/17/2022 COMPL ETE CBC WITH DIFF monocyte 7.3 % (4.5-1 0.5) Not Available [facility] (Centralized Electronic Ordering - All Locations) Patient Can Go To The Location Of Their Choice, 02/17/2022 00:05:50 02/17/2002/17/2022 COMPL ETE CBC WITH DIFF eo 1.2 % (0-6) Not Available [facility] (Centralized Electronic Ordering - All Locations) Patient Can Go To The Location Of Their Choice, 02/17/2022 00:05:50 02/17/2002/17/2022 COMPL ETE CBC WITH DIFF baso 0.3 % (0-2) Not Available [facility] (Centralized Electronic Ordering - All Locations) Patient Can Go To The Location Of Their Choice, 02/17/2022 00:05:50 02/17/2002/17/2022 COMPL ETE CBC WITH DIFF imm gran 0.5 % Not Available [facility] (Centralized Electronic Ordering - All Locations) Patient Can Go To The Location Of Their Choice, 02/17/2022 00:05:50 02/17/2002/17/2022 BASIC METAB OLIC PANEL glucose 328 mg/dL (70-99 ) high Not Available [facility] (Centralized Electronic Ordering - All Locations) Patient Can Go To The Location Of Their Choice, 02/17/2022 00:22:44 02/17/2002/17/2022 BASIC METAB OLIC PANEL BUN 19 mg/dL (8-23) Not Available [facility] (Centralized Electronic Ordering - All Locations) Patient Can Go To The Location Of Their Choice, 02/17/2022 00:22:44 02/17/2002/17/2022 BASIC METAB OLIC PANEL creatinine 1.3 mg/dL (0.5-1 .0) high Not Available [facility] (Centralized Electronic Ordering - All Locations) Patient Can Go To The Location Of Their Choice, 02/17/2022 00:22:44 02/17/2002/17/2022 BASIC METAB OLIC PANEL sodium 136 mmol/ L (133-1 45) Not Available [facility] (Centralized Electronic Ordering - All Locations) Patient Can Go To The Location Of Their Choice, 02/17/2022 00:22:44 02/17/2002/17/2022 BASIC METAB OLIC PANEL potassium 4.0 mmol/ L (3.6-5 .2) Not Available [facility] (Centralized Electronic Ordering - All Locations) Patient Can Go To The Location Of Their Choice, 02/17/2022 00:22:44 02/17/2002/17/2022 BASIC METAB OLIC PANEL chloride 97 mmol/ L (98-10 7) low Not Available [facility] (Centralized Electronic Ordering - All Locations) Patient Can Go To The Location Of Their Choice, 02/17/2022 00:22:44 02/17/2002/17/2022 BASIC METAB OLIC PANEL bicarbonate 27 mmol/ L (22-29 ) Not Available [facility] (Centralized Electronic Ordering - All Locations) Patient Can Go To The Location Of Their Choice, 02/17/2022 00:22:44 02/17/2002/17/2022 BASIC METAB OLIC PANEL anion gap 12 (4-17) Not Available [facility] (Centralized Electronic Ordering - All Locations) Patient Can Go To The Location Of Their Choice, 02/17/2022 00:22:44 02/17/2002/17/2022 BASIC METAB OLIC PANEL calcium 8.9 mg/dL (8.6-1 0.5) Not Available [facility] (Centralized Electronic Ordering - All Locations) Patient Can Go To The Location Of Their Choice, 02/17/2022 00:22:44 02/17/2002/17/2022 BASIC METAB OLIC PANEL estimated GFR creatinine 44 mL/mi n/1.7 3_M2 Creat inine based estim ated glome rular filtr ation (eGFR ) in adult s is calcu lated using the Natio nal Kidne y Found ation recom gabby d 2020 CKD-E PI equat ion. Estim ates GFR from serum creat inine , age and sex. Not Available [facility] (Centralized Electronic Ordering - All Locations) Patient Can Go To The Location Of Their Choice, 02/17/2022 00:22:44 02/17/2002/17/2022 UA W/REF REGAN CULTU RE appear/color COLOR LESS CLEAR Not Available [facility] (Centralized Electronic Ordering - All Locations) Patient Can Go To The Location Of Their Choice, 02/17/2022 01:53:39 02/17/2002/17/2022 UA W/REF REGAN CULTU RE sp. gravity 1.008 (1.002 -1.030 ) Not Available [facility] (Centralized Electronic Ordering - All Locations) Patient Can Go To The Location Of Their Choice, 02/17/2022 01:53:39 02/17/2002/17/2022 UA W/REF REGAN CULTU RE urine pH 6.0 (5.0-8 .0) Not Available [facility] (Centralized Electronic Ordering - All Locations) Patient Can Go To The Location Of Their Choice, 02/17/2022 01:53:39 02/17/2002/17/2022 UA W/REF REGAN CULTU RE urine albumin 1+ (neg) abnormal Not Available [facility] ([facility] Ordering - All Locations) Patient Can Go To The Location Of Their Choice, 02/17/2022 01:53:39 02/17/2002/17/2022 UA W/REF REGAN CULTU RE urine glucose NEGATI VE (neg) Not Available [facility] (Centralized Electronic Ordering - All Locations) Patient Can Go To The Location Of Their Choice, 02/17/2022 01:53:39 02/17/2002/17/2022 UA W/REF REGAN CULTU RE urine ketones NEGATI VE (neg) Not Available [facility] (Centralized Electronic Ordering - All Locations) Patient Can Go To The Location Of Their Choice, 02/17/2022 01:53:39 02/17/2002/17/2022 UA W/REF REGAN CULTU RE urine bilirubin NEGATI VE (neg) Not Available [facility] (Centralized Electronic Ordering - All Locations) Patient Can Go To The Location Of Their Choice, 02/17/2022 01:53:39 02/17/2002/17/2022 UA W/REF REGAN CULTU RE urine hemoglobin NEGATI VE (neg) Not Available [facility] (Centralized Electronic Ordering - All Locations) Patient Can Go To The Location Of Their Choice, 02/17/2022 01:53:39 02/17/2002/17/2022 UA W/REF REGAN CULTU RE urine nitrite NEGATI VE (neg) Not Available [facility] (Centralized Electronic Ordering - All Locations) Patient Can Go To The Location Of Their Choice, 02/17/2022 01:53:39 02/17/2002/17/2022 UA W/REF REGAN CULTU RE urine leukocyte NEGATI VE (neg) Not Available [facility] (Centralized Electronic Ordering - All Locations) Patient Can Go To The Location Of Their Choice, 02/17/2022 01:53:39 02/17/2002/17/2022 UA W/REF REGAN CULTU RE urobilinogen NORMAL mg/dL (norm) Not Available [facility] ([facility] Order[facility] - All Locations) Patient Can Go To The Location Of Their Choice, 02/17/2022 01:53:39 02/17/2002/17/2022 UA W/REF REGAN CULTU RE urine WBCs 1 /hpf (0-5) Not Available [facility] (Centralized Electronic Ordering - All Locations) Patient Can Go To The Location Of Their Choice, 02/17/2022 01:53:39 02/17/2002/17/2022 UA W/REF REGAN CULTU RE urine RBCs 1 /hpf (0-3) Not Available [facility] (Centralized Electronic Ordering - All Locations) Patient Can Go To The Location Of Their Choice, 02/17/2022 01:53:39 02/17/2002/17/2022 UA W/REF REGAN CULTU RE bacteria SLIGHT hpf (neg) abnormal Not Available [facility] (Centralized Electronic Ordering - All Locations) Patient Can Go To The Location Of Their Choice, 02/17/2022 01:53:39 02/17/2002/17/2022 UA W/REF REGAN CULTU RE squamous epith 1 /hpf (0-8) Not Available [facility] ([facility] Ordering - All Locations) Patient Can Go To The Location Of Their Choice, 02/17/2022 01:53:39 02/17/2002/17/2022 UA W/REF REGAN CULTU RE clarity CLEAR (clear ) Not Available [facility] (Centralized Electronic Ordering - All Locations) Patient Can Go To The Location Of Their Choice, 02/17/2022 01:53:39 02/17/20 22 02/17/2022 UA W/REF REGAN CULTU RE culture indication CULTUR E NOT INDICA NATALIE Not Available [facility] (Centralized Electronic Ordering - All Locations) Patient Can Go To The Location Of Their Choice, 02/17/2022 01:53:39 02/17/2002/16/2022 urina lysis , dipst ick Leukocytes neg Not Available [facility] [address] [place] [address], [address], 02/16/2022 16:23:39 02/17/20 22 02/16/2022 urina lysis , dipst ick Nitrite negati ve Not Available [facility] [address] [place] [address], [address], 02/16/2022 16:23:39 02/17/20 22 02/16/2022 urina lysis , dipst ick Protein 4+ Not Available [facility] [address], [address], 02/16/2022 16:23:39 02/17/20 22 02/16/2022 urina lysis , dipst ick Ketone 2+ Not Available [facility] [address], [address], 02/16/2022 16:23:39 02/17/20 22 02/16/2022 urina lysis , dipst ick Glucose negati ve Not Available [facility] [address] [place] [address], [address], 02/16/2022 16:23:39 02/17/20 22 02/16/2022 cmp, whole blood + picco lo ALB 2.8 Not Available [facility] [address], [address], 02/16/2022 16:22:48 02/17/20 22 02/16/2022 cmp, whole blood + picco lo ALP 114 Not Available [facility] [address], [address], 02/16/2022 16:22:48 02/17/20 22 02/16/2022 cmp, whole blood + picco lo ALT 12 Not Available [facility] [address], [address], 02/16/2022 16:22:48 02/17/20 22 02/16/2022 cmp, whole blood + picco lo AST 18 Not Available [facility] [address], [address], 02/16/2022 16:22:48 02/17/20 22 02/16/2022 cmp, whole blood + picco lo BUN 17 Not Available [facility] [address], [address], 02/16/2022 16:22:48 02/17/20 22 02/16/2022 cmp, whole blood + picco lo Ca 9.8 Not Available [facility] [address], [address], 02/16/2022 16:22:48 02/17/20 22 02/16/2022 cmp, whole blood + picco lo CI- normal Not Available [facility] [address], [address], 02/16/2022 16:22:48 02/17/20 22 02/16/2022 cmp, whole blood + picco lo CRE 1.3 Not Available [facility] [address], [address], 02/16/2022 16:22:48 02/17/20 22 02/16/2022 cmp, whole blood + picco lo GLU 326 Not Available [facility] [address], [address], 02/16/2022 16:22:48 02/17/20 22 02/16/2022 cmp, whole blood + picco lo K+ 3.8 Not Available [facility] [address], [address], 02/16/2022 16:22:48 02/17/20 22 02/16/2022 cmp, whole blood + picco lo Na+ 138 Not Available [facility] [address], [address], 02/16/2022 16:22:48 02/17/20 22 02/16/2022 cmp, whole blood + picco lo tCO2 27 Not Available [facility] [address], [address], 02/16/2022 16:22:48 Result Notes None recorded. Medical Equipment None Reported. Allergies Allergen ID Allergen Name Allergen Category Reaction Reaction Severity Criticality Documentation Date Start Date Code Code System Note Provider Name and Address Organization Details Recorded Time 81103 Motrin medicatio n Not available Not available Not available 09/18/202473858 8 RxNorm Not Available [facility] - production 4 15:17:42 61638 acetamino phen / oxycodone medicatio n Not available Not available Not available 09/18/2024 27965 3 RxNorm Not Available [facility] - production 4 15:17:42 07829 tramadol medicatio n Not available Not available Not available 09/18/2024 29690 RxNorm Not Available [facility] - production 4 15:17:42 Medications Name Sig Start Date [...] Not Available Not Available No t Available [employer] SoloStar U-300 Insulin 300 unit/mL (1.5 mL) [...] Not Available No t Available Dexcom G7 Director [place] [employer] USE DIRECTED active Not Available Not Available [...] L/min 146 mm[Hg] 65 mm[Hg] Not Available [facility] - production 3 16:22:45 Date Recorded Heart rate Oxygen saturation Oxygen saturation in Arterial blood by Pulse oximetry Body temperature Respiratory rate Systolic blood pressure Diastolic blood pressure Provider Name and Address Organization Details Last Updated DateTime 4 78 /min 93 % 93 % 97.1 [degF] 16 /min 137 mm[Hg] 76 mm[Hg] Not Available [facility] - production 4 20:04:27 Date Recorded Oxygen saturation Oxygen [...] cm 99 % 99 % 98.9 [degF] 27532.2 4 g 20 /min 164 mm[Hg] 63 mm[Hg] 164 mm[Hg] 63 mm[Hg] Not Available [facility] - [employer] 2 14:54:34 Social History None recorded. Functional [...] Note 1594 Hanane Mena MD [facility] [address] [place] [phone] 02/16/2022 14:13:00 05/29/2022 14:46:24 Acute low back pain 955453745 M54.50 Pt p/w 5 days of atraumatic [...] no improvemen t in pain consider imagingPer carpenter helper maintenance, requestor asked for CBC w/ diff and CMP (not acknowledg ed in [facility] portal) but no orders placed. Reasonable to check CBC w/ diff and CMP thus orders placed. Ketonuria [id number] R82. 4 Pt with 2+ urinary ketones [...] and call PCP if FSG > 350. [id number] Damien Alfredo MD [facility] [address] [place] [phone] 04/08/2023 16:22:43 04/08/2023 23:08:09 Hypoxia 859354463 R09.02 [id number] Wandre Smith MD [facility] [address] [place] [phone] 09/18/2024 20:04:23 09/18/2024 21:06:53 Acute exacerbation of chronic obstructive pulmonary disease 258994194 J44.1 Health Concerns Section Related Observation LastModified by Organization Detai ls LastModified Time None Recorded Concern Status LastModified by Organization Details LastModified Time None Recorded Advance Directives Directive None Recorded Payers Encounter Date Sequence Insurance Name Policy Number Policy Rendon Covered Member ID Rendon Member ID Guarantor Name 02/16/2022 1 [facility] - DOS PRIOR TO 2023 - DUAL ELIGIBLE (MEDICARE REPLACEMENT/AD VANTAGE - HMO) Katherine Griffith [id number] Katherine Griffith 04/08/2023 1 [facility] - DOS ON OR AFTER 2023 - DUAL ELIGIBLE - HALF-WAY OPTIONS AND ONE CARE (MEDICARE REPLACEMENT/AD VANTAGE - HMO) Katherine Griffith [id number] Katherine Griffith 09/18/2024 1 [facility] - DOS ON OR AFTER 2023 - DUAL ELIGIBLE - HALF-WAY OPTIONS AND ONE CARE (MEDICARE REPLACEMENT/AD VANTAGE - HMO) Katherine Griffith [id number] Katherine Griffith Notes Date Note Type Note [...] .................... .................... .................... .................... .................... .................... . Mass Spectrometry Manager Note: Patient is a 76 year old [...] seen by urologist last month according to health and social care teacher, kidney function was good. Urine sample obtained and dipped; changes in PRO, SG and KET detected. Urine sent to [facility] for UA and Culture. Vital signs obtained and all within normal limits. Red flags discussed. Consulted with Dr. Mena. Patient is to follow up with PCP/care team regarding her signs, symptoms and todays visit. Dr. Mena recommended blood work. Mass Spectrometry Manager Sara Davis was dispatched for procedure. See carpenter helper maintenance Sara Davis run report for further patient [...] liner which suggests h Hanane Mena MD [address] [place] [address],[address], [place], [address], [employer] 02/16/2022 16:24:46 04/08/2023 text/html CRC Nursing Assessment: [...] on behalf of member with request for MIH for eval increased SOB and decreased oxygen levels. Daughter states member talking in full sentences with no acute distress. Daughter could not provide further information. Discuss if symptoms progress to seek emergent care.-verbalize understanding. Verify member name/- Damien Alfredo MD [address] [facility],[address], [place], [address], [employer] 04/08/2023 16:28:34 09/18/2024 text/html CRC Nurse Triage Notes (Elina Lopez - RN): [...] s/s and seek emergency treatment if needed. Mass Spectrometry Manager Organization Information for [employer] Legal Name: [facility] Address: [address] [place] [address], Art Department Head: Louis Stockton MD CLIA No.: [id number] Mass Spectrometry Manager POC Test Results from [employer] [facility] [employer] Rapid COVID antigen (20:02:29) COVID: - Rapid influenza antigen (20:02:30) Flu: - Wander Smith MD [address] [facility],[address], [place], [address], [address] 09/18/2024 21:05:29 OBGyn Episode No OBEpisode recorded.
--- OUTSIDE RECORDS SUMMARY | 2024-12-01 11:55 | XMS_ITS ---
Author Organization [facility] Address [address] [place] [address] Care Team Providers Care Vp Digital Marketing Name Role Phone Jaime VORA, Shelby Primary Care Provider Unavail able Randy Leal Unavailable [phone] REASON FOR VISIT same day rs 09/19/24 Encounters Encounter Location Date Provider Diagnosis [address] [address] 09/19/2024 Randy Leal Plan Of Treatment Next Appt Details Provider Name:Randy Leal , 12/26/2024 11:30:00 AM, [address] [place], [address], Progress Notes * Katherine DIASDOB: 5 (79 yo F)Acc No.[id number]:09/19/2024 Patient:?ARUNKatherine :1945???Age:79 Y???Sex:Female Address:[address] [place], [address] * true * Date:? Generated for Herber olea/Rolando/eTransmitting on:?12/01/2024 11:55 AM EST
--- OUTSIDE RECORDS SUMMARY | 2024-12-01 11:55 | XMS_ITS ---
Author Organization [facility] Address [address] [place] [address] Care Team Providers Care Manager Regional Sales Name Role Phone Jaime VORA, Shelby Primary Care Provider Unavail Randy Marshall Unavailable [phone] Encounters Encounter Location Date Provider Diagnosis [address] [address] 09/19/2024 Randy Leal Plan Of Treatment Next Appt Details Provider Name:Randy Leal , 12/26/2024 11:30:00 AM, [address] [place], [address], Progress Notes * Katherine DIASDOB: (79 yo F)Acc No.[id number]:09/19/2024 Progress Note Patient:?ARUNKatherine Provider:?Randy Leal DPM :1945???Age:79 Y???Sex:Female D ate:09/19/2024 Address:[address] [place], [place] [id number] Pcp:Shelby Sandoval MD Subjective: * Chief Complaints: * ??? * Medical History:? Objective: * Vitals:? Assessment: Plan: * Treatment: * Images: * The named appointment provid er may or may not be the originator of this progress note, and it is not deemed complete until electronically signed by the appointment provider. Sign off status: Pending * Provider:?Randy Leal DPM Date:?2023 Generated for Herber olea/Rolando/Emely on:?12/01/2024 11:55 AM EST
--- OUTSIDE RECORDS SUMMARY | 2024-12-01 11:56 | XMS_ITS | Encounter Summary ---
Author Organization [employer] [facility] Address [address] [place] [address] 7t [place] [address] Care Team Providers Care Real Property Evaluator Name Role Phone Unavailable Primary Care Provider Unavailabl e Reason for Visit * Reason Comments Med Refill Encounter Details Date Type Department Care Team (Late st Contact Info) Description 11/24/[address] [facility] MEDICINE [address] [place] [phone] Christianne John MD [address] [place] [phone] Moderate persistent asthma, unspecified whether complicated Social History Tobacco Use Types Packs/Day Years [...] [facility] [address] [place] [address] Moy Caldwell DDS [address] [place] [address] 01/10/2025 10:00 AM EDT Office Visit [facility] ADULT DENTAL [address] [place] [address] Johana Garcia [address] [place] [address] documented as of this encounter Visit Diagnoses Diagnosis Moderate persistent asthma, unspecified whether complicated documented in this encounter
--- OUTSIDE RECORDS SUMMARY | 2024-12-01 11:56 | XMS_ITS | Encounter Summary ---
Author Organization [employer] [facility] Address [address] [place] [address] 7t [place] [address] Care Team Providers Care Pulp Plant Supervisor Name Role Phone Marycarmen Quijano MD Primary Care Provider [phone] Marycarmen Quijano MD Primary Care Provider [phone] Encounter Details Date Type Department Care Team (Latest Contact Info) Description 06/16/2021 Abstract [facility] CONVERSIONS Dental, Provider, DDS Social History Tobacco Use Types Packs/Day Years [...] Description 12/04/2024 9:00 AM EST Office Visit [facility] ADULT DENTAL [address] [place] [address] Moy Caldwell DDS [address] [place] [address] 01/10/2025 10:00 AM EDT Office Visit [facility] ADULT DENTAL [address] [place] [address] Johana Garcia [address] [place] [address] documented as of this encounter Visit Diagnoses Not on filedocumented in this encounter Care Teams Pulp Plant Supervisor Relationship Specialty Start Date End Date Marycarmen Quijano MD [address] [place] [address] PCP - General Family Medicine 07/26/13 02/01/23 Marycarmen Quijano MD [address] [place] [address] PCP - General Family Medicine 03/02/23 06/20/23 documented as of this encounter
--- OUTSIDE RECORDS SUMMARY | 2024-12-01 11:56 | XMS_ITS | Clinical Summary ---
Author Organization [email or web address] Address [address] [place] [address] 7t [place] [address] Care Team Providers Care Wind Turbine Service Technician Name Role Phone Unavailable Primary Care Provider Unavailabl e Allergies Active Allergy Reactions Criticality Noted Date Comments Metformin 10/22/2015 Other reaction(s): Stomach Pain Ibuprofen Other 12/02/2022 Pt reports that Motrin increases her blood pressure. Oxycodone-Acetaminophen Hallucinations Medium 12/03/19 23 Sitagliptin 10/22/2015 Other reaction(s): Stomach Pain Medications amLODIPine (Norvasc) 10 MG tabletIndications: Primary hypertension Take 1 tablet by mouth every morning 30 tablet 5 2 Active Aspirin Low Dose 81 MG EC tablet Take 81 mg by mouth at bedtime. 2 Active Bisacodyl EC 5 MG EC tablet TAKE 2 TABLETS BY MOUTH EVERY DAY AT BEDTIME 2 Active Blood Glucose Monitoring Suppl (AccellosStyle Jefferson Lite) w/Device kit TEST BLOOD SUGAR THREE TIMES DAILY 2 Active brimonidine (AlphaGAN P) 0.2 % ophthalmic solution INSTILL 1 DROP IN EACH EYE TWICE DAILY 2 Active carvedilol (Coreg) 25 MG tablet 3 Active cetirizine (ZyrTEC) 5 MG tablet 3 Active cilostazol (Pletal) 100 MG tablet TAKE 1 TABLET BY MOUTH TWICE DAILY IN THE MORNING AND AT BEDTIME 2 Active cyanocobalamin (Vitamin B-12) 1000 MCG tablet Take 1,000 mcg by mouth in the morning. 2 Active Jardiance 10 MG IVÁN 1 TABLETA POR LA BOCA CADA SUKHI EN LA MANANA 3 Active esomeprazole (NexIUM) [address] capsule 3 Active Trelegy Ellipta 200-62.5-25 MCG/ACT aerosol powder 3 Active fluticasone (Flonase) 50 MCG/ACT nasal spray 3 Active gabapentin (Neurontin) 300 MG capsule 3 Active FREESTYLE LITE test strip TEST BLOOD SUGAR THREE TIMES DAILY 2 Active NovoLOG FLEXPEN 100 UNIT/ML pen 3 Active Toujeo SoloStar 300 UNIT/ML injection 3 Active UltiGuard SafePack Pen Needle 32G X 4 MM misc 3 Active ipratropium (Atrovent) 0.03 % nasal spray USE 2 SPRAYS IN EACH NOSTRIL TWICE DAILY 2 Active latanoprost (Xalatan) 0.005 % ophthalmic solution 3 Active Tradjenta 5 MG tablet Take 5 mg by mouth in the morning. 2 Active metoprolol succinate XL (Toprol-XL) 100 MG 24 hr tablet Take by mouth at bed time. Active Creon 46876-84311 units capsule 3 Active pantoprazole (ProtoNix) 40 MG EC tablet Take 40 mg by mouth in the morning. 2 Active HM ClearLax 17 GM/SCOOP powder 3 Active senna (Senokot) 8.6 MG tablet Take 2 tablets by mouth at bedtime. 2 Active GAS RELIEF 125 MG capsule TAKE 1 TABLET BY MOUTH EVERY 8 HOURS NEEDED FOR PAIN FOR GAS 2 Active sucralfate (Carafate) 1 g tablet TAKE 2 TABLETS BY MOUTH ONCE DAILY 2 Active torsemide (Demadex) 20 MG tabletIndications: Primary hypertension Take 1 tablet by mouth twice daily 180 tablet 3 3 Active hydrALAZINE (Apresoline) 25 MG tabletIndications: Primary hypertension Take 1 tablet by mouth twice daily 180 tablet 3 3 Active atorvastatin (Lipitor) 40 MG tabletIndications: Type 2 diabetes mellitus with hyperlipidemia (CMS/HCC) ([facility]) TAKE 1 TABLET BY MOUTH AT BEDTIME 30 tablet 11 3 Active folic acid (Folvite) 1 MG tabletIndications: Vitamin deficiency TAKE 1 TABLET BY MOUTH EVERY MORNING 90 tablet 3 3 Active montelukast (Singulair) 10 MG tabletIndications: Moderate persistent asthma, unspecified whether complicated TAKE 1 TABLET BY MOUTH EVERY EVENING 90 tablet 3 3 Active ergocalciferol (Vitamin D2) 1.25 MG (07707 UT) capsule TAKE 1 CAPSULE BY MOUTH ONCE WEEKLY ON Wednesday 12 capsule 1 3 Active amoxicillin (Amoxil) 500 MG capsule Take 4 tabs (2 grams) 1 hour prior to dental procedure 4 capsule 3 4 Active budesonide-formote rol (Symbicort) 160-4.5 MCG/ACT inhaler Inhale 2 puffs 2 times daily. Active calcium acetate (Phoslo) 667 MG capsule Take 1 capsule by mouth 2 times daily. 4 Active D3-1000 25 MCG (1000 UT) capsule Take 25 mcg by mouth in the morning. 4 Active clopidogrel (Plavix) 75 MG tablet Take 75 mg by mouth in the morning. 4 Active Ferrous Sulfate (iron) 325 (65 Fe) MG tablet TAKE 1 TABLET BY MOUTH ONCE WEEKLY ON Wednesday 4 Active furosemide (Lasix) 40 MG tablet Take 40 mg by mouth Once per day. 1 Active losartan (Cozaar) 50 MG tablet Take 50 mg by mouth in the morning. 4 Active omeprazole (PriLOSEC) [address] capsule Take 1 capsule by mouth Once per day. Active predniSONE (Deltasone) 10 MG tablet Take 10 mg by mouth Once per day. 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 Dental calculus 12/02/2022 Renal osteodystrophy 12/01/2021 Status post cardiac catheterization 12/01/2021 Proteinuria 02/28/2021 Hypertensive renal disease 02/28/2021 Acute kidney failure 01/28/2021 COVID-19 01/28/2021 Dysphagia, oral phase 01/28/2021 Hyperlipidemia 01/28/2021 Hypo-osmolality and hyponatremia 01/28/2021 Muscle wasting and atrophy, not elsewhere classified, unspecified lower leg 01/28/2021 Other malaise 01/28/2021 Other reduced mobility 01/28/2021 Respiratory failure with hypoxia 01/28/2021 Uncomplicated asthma 01/28/2021 Unsteadiness on feet 01/28/2021 Type 2 diabetes mellitus 02/06/2019 Aortic valve stenosis 12/05/2018 Positive MERRICK (antinuclear antibody) 12/05/2018 Renal artery stenosis 10/17/2018 Carpal tunnel syndrome 07/12/2017 Bilateral femoral artery stenosis 04/08/2017 Ischemic heart disease 09/16/2016 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/2016 Diabetes mellitus type 2, uncontrolled 6 Hypertensive disorder 10/22/2015 Chronic anemia 09/25/2015 Diabetic peripheral neuropat hy associated with type 2 diabetes mellitus 07/15/2015 Dyslipidemia 07/15/2015 Moderate persistent asthma 07/15/2015 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 07/15/2015 Chronic kidney disease, stage III (moderate) 10/2013 Peripheral vascular disease 11/09/2013 Vaginal wall prolapse 03/06/2013 Urinary, incontinence, stress female 03/06/2013 Vertigo 07/11/2012 Low back pain 05/30/2012 Diverticular disease of colon 05/05/2012 Gastroesophageal reflux disease 05/05/2012 Obesity 03/16/2012 Thoracic and lumbosacral neuritis 03/16/2012 Atherosclerosis of coronary artery 10/04/1959 Osteopenia 10/04/1959 Encounters Date Type Department Care Team Description 11/03/2024 11:00 AM EST Office Visit [facility] ADULT DENTAL [address] [place] [address] Moy Caldwell DDS Partially edentulous maxilla, unspecified edentulism class (Primary Dx); Partially edentulous mandible, unspecified edentulism class 10/12/2024 11:00 AM EST Office Visit [facility] ADULT DENTAL [address] [place] [address] Moy Caldwell DDS Partially edentulous maxilla, unspecified edentulism class (Primary Dx) from Last 3 Months Immunizations Name Administration Dates Next Due Hep B, adult 04/08/2017,06/03/2016,04/03/2014 Influenza Quadrivalent Adjuvanted 07/20/2022 Influenza injectable quadriv alent IIV4 with preservative 07/15/2015 Influenza injectable quadriv alent preservative free 07/12/2019,09/19/2018,09/16/2016 Influenza, High Dose Seasona l, Preservative Free 07/12/2017 Influenza, IIV3, injectable 07/12/2014, 1 Influenza, Split (incl. krystal fied surface antigen) 07/13/2013 Pneumococcal Conjugate PCV 13 07/15/2015 Pneumococcal Polysaccharide PPSV23 06/03/2016, TD (adult), 2 Lf tetanus tox oid, preservative free, adsorbed 06/08/1997 Tdap 11/27/2013 Zoster, live 07/15/2015 Social History Tobacco Use Types Packs/Day Years Used Date Smoking Tobacco: Never Passive Smoke Exposure: Never Smokeless Tobacco: Never Tobacco Cessation:Counseling Given: Not Answered Alcohol Use Standard Drinks/Week Comments Never 0 (1 standard drink = 0.6 oz pur e alcohol) Comments Unknown Sex and Gender Information Value Date Recorded Sex Assigned at Female 08/03/2022 10:14 AM EDT Legal Sex Female 10:14 AM EDT Gender Identity Choose not to disclose 10:14 AM EDT Sexual Orientation Choose not to disclose 2021 10:14 AM EDT Last Filed Vital Signs Vital Sign Reading Time Taken Comments Blood Pressure 136/74 11/03/2024 11:02 AM EST Pulse 68 12/02/2022 1:53 PM EST Temperature - - Respiratory Rate - - Oxygen Saturation - - Inhaled Oxygen Concentration - - Weight 93.4 kg (206 lb) 08/12/2022 11:32 AM EST Height 148.5 cm (4' 10.46 ) 08/12/2022 11:32 AM EST Body Mass Index 42.38 08/12/2022 11:32 AM EST Plan of Treatment Upcoming Encounters Date Type Department Care Team (Late st Contact Info) Description 12/04/2024 9:00 AM EST Office Visit [facility] ADULT DENTAL [address] [place] [address] Moy Caldwell, DDS [address] [place] [address] 01/10/2025 10:00 AM EDT Office Visit [facility] ADULT DENTAL [address] [place] [address] Johana Garcia [address] [place] [address] Health Maintenance Due Date Last Done Comments Depression Screening 1945 SDOH Screening 1945 Diabetes: Foot Exam 1955 Eye Exam 1955 Alcohol/Substance Use Screening 1957 Hepatitis C Screening 1963 Zoster Vaccines (2 of 3) 09/09/2015 07/15/2015 RSV Patients and Patients Aged 60 years or older (1 - 1-dose 75+ series) 2020 Lipid Panel 09/18/2021 09/18/2020, 04/09/2020 Diabetes: Hemoglobin A1C 10/09/2022 022, 12/01/2021, 12/01/2021, Additional history exists DTaP/Tdap/Td Vaccines (2 - Td or Tdap) 11/27/2023 11/27/2013, 06/08/1997, 06/08/1997 COVID-19 Vaccine ( - season) 2024 Influenza Vaccine (#1) 2024 , 06/05/2020, 07/12/2019, Additional history exists Dental Oral Exam 12/18/2024 06/19/2024, 12/02/2022 Dental Prophylaxis 01/06/2025 07/07/2024, 12/02/2022 Dental X-Ray: Bitewings 06/20/2025 06/19/2024 Tobacco Screening 11/03/2025 11/03/2024 Dental X-Ray: Full Mouth 06/20/2027 06/19/2024, 04/03 Hepatitis B Vaccines Completed 04/08/2017, 06/03/2016, 04/03/2014 Pneumococcal Vaccine: 50+ Years Completed 08/29/2024, 06/03/2016, 07/15/2015, Additional history exists HIB Vaccines Aged Out No longer eligi ble based on patient's age to complete this topic HPV Vaccines Aged Out No longer eligi ble based on patient's age to complete this topic Hepatitis A Vaccines Aged Out No long er eligible based on patient's age to complete this topic IPV Vaccines Aged Out No longer eligi ble based on patient's age to complete this topic Meningococcal Vaccine Aged Out No hafsa yoel eligible based on patient's age to complete this topic RSV under 20 months Aged Out No longe r eligible based on patient's age to complete this topic Rotavirus Vaccines Aged Out No longer eligible based on patient's age to complete this topic Procedures Procedure Name Priority Date/Time Associated Diagnosis Comments BITE REGISTRATION Routine 11/03/2024 11: 00 AM EST DENTURE IMPRESSION Routine 10/12/2024 11 :00 AM EST PROPHYLAXIS - ADULT Routine 07/07/2024 9 :00 AM EDT Dental calculus INTRAORAL - COMPLETE SERIES OF RADIOGRAPHIC IMAGES Routine 06/19/2024 10:00 AM EDT PERIODIC ORAL EVALUATION - ESTABLISHED PATIENT Routine 06/19/2024 10:00 AM EDT CLAIRE HISTORICAL HEMOGLOBIN A1C Routine 07/09/2022 10:40 AM EDT CLAIRE HISTORICAL LIPID PANEL Routine 09/18/2020 1:18 PM EST from Last 3 Months or Most Recently Relevant to Health Maintenance Results * HEMOGLOBIN A1C (07/09/2022 10:40 AM EDT) Estimated Average Glucose 151 mg/dL [facility] Comment: eAG = Estimated average glucose which is %A1C expressed as average glucose, using the formula of the [id number] Average Glucose study (ADAG), Diabetes Care, Vol.31,#8, May. 2007 Hemoglobin A1c % 6.9 % [facility] Comment: ?Hemoglobin A1C Reference Range ?Adults: ??4.8 - 6.0 % ?Non diabetic: ??< 6.0 % ?Goal: ??< 7.0 % Additional Action Suggested: ??> 8.0 % ?? Note: ??Hemoglobin A1c results are invalid for patients ?with abnormal amounts of HbF. ??Blood transfusions ?may impact the HbA1c concentration in the patient ?sample. 07/09/2022 10:4 0 AM EDT us Historical Provider MD HISTORICAL/NON ORDERABLE LABS Final Result [facility] * (ABNORMAL) LIPID PANEL (09/18/2020 1:18 PM EST) Cholesterol 157 mg/dL [facility] Comment: Desirable Cholesterol: ?less than 200 mg/dL Borderline High Cholesterol: ??200-239 mg/dL High Cholesterol: ? greater than 239 mg/dL HDL Cholesterol 51 mg/dL [facility] Comment: Desirable HDL: ??greater than 40 mg/dL ?? Note: This HDL assay may give artificially ? low results in patients with liver disease. LDL Cholesterol Calculated 90 mg/dl [facility] Comment: Desirable LDL: ? less than 100 mg/dL Near Optimal/Above Optimal LDL: ??110-129 mg/dL Borderline High LDL: ? 130-159 mg/dL High LDL: ?160-189 mg/dL Very High LDL: ? greater than or equal to ?190 mg/dL Triglycerides 81 mg/dL [facility] Comment: Desirable Triglyceride: ? less than 150 mg/dL Borderline High Triglyceride ??150-199 mg/dL High Triglyceride: ?200-499 mg/dL Very High Triglyceride: ? greater than or equal to ? 5OO mg/dL Alanine Aminotransferase 14 0 - 31 U/L [facility] Albumin Level 3.7 3.5 - 5.0 g/dL [facility] Alkaline Phosphatase 120(H) 39 - 117 U/L [facility] Anion Gap 14 12 - 20 [facility] Aspartate Amino Transferase 16 5 - 31 U/L [facility] Bilirubin Total 0.4 0.0 - 1.0 mg/dL [facility] Blood Urea Nitrogen 25(H) 9 - 16 mg/dL [facility] Calcium 8.8 8.4 - 10.2 mg/dL [facility] Carbon Dioxide 25 22 - 29 mmol/L [facility] Chloride 105 96 - 108 mmol/L [facility] Creatinine, Serum 1.35 0.5 - 1.4 mg/dL [facility] Estimated Glomerular Filt Rate 38 [facility] Comment: NOTE: ??For -Liberian individuals, multiply the result ?by 1.210. ?? Chronic Kidney Disease: ??Estimated GFR < 60 mL/min/1.73m2 Severe Kidney Disease: ??Estimated GFR < 15 mL/min/1.73m2 Glucose Fasting 146(H) 60 - 99 mg/dL [facility] Comment: A fasting glucose of 126 mg/dl or greater on more than one occasion is considered diagnostic of diabetes. Potassium 4.5 3.3 - 5.1 mmol/l [facility] Sodium 139 135 - 145 mmol/L [facility] Total Protein 7.0 6.5 - 8.0 g/dL [facility] 09/18/2020 1:18 PM EST us Historical Provider HISTORICAL/NON ORDERABLE LABS Final Result [facility] [address] from Last 3 Months or Most Recently Relevant to Health Maintenance Insurance [facility] Member Subscriber Plan / Payer ( fective 2011-Present) Name:Louis Montes Relation to Subscriber:Self Name:Griffith Louis Bean Payer ID:Not on file Group ID:[id number] Type:Not on file Address: [address] [place] [id number]
--- OUTSIDE RECORDS SUMMARY | 2024-12-01 11:56 | XMS_ITS | Encounter Summary ---
Author Organization [employer] [facility] Address [address] [place] [address] [address] [place] [address] Care Team Providers Care High School Foreign Language Teacher Name Role Phone Unavailable Primary Care Provider Unavailabl e Reason for Visit * Reason Comments Med Refill Encounter Details Date Type Department Care Team (Late st Contact Info) Description 12/01/2023 Refill [facility] MEDICINE [address] [place] [phone] Christianne John MD [address] [place] [phone] Moderate persistent asthma, unspecified whether complicated Social [...] Description 12/04/2024 9:00 AM EST Office Visit [facility] ADULT DENTAL [address] [place] [address] Moy Caldwell DDS [address] [place] [address] 01/10/2025 10:00 AM EDT Office Visit [facility] ADULT DENTAL [address] [place] [address] Johana Garcia [address] [place] [address] documented as of this encounter Visit Diagnoses Diagnosis Moderate persistent asthma, unspecified whether complicated documented in this encounter
--- OUTSIDE RECORDS SUMMARY | 2024-12-01 11:56 | XMS_ITS | Encounter Summary ---
Author Organization [employer] [facility] Address [address] [place] [address] [address]t [place] [address] Care Team Providers Care Field Laborer Name Role Phone Unavailable Primary Care Provider Unavailabl e Reason for Visit * Reason Comments Med Refill Encounter Details Date Type Department Care Team (Late st Contact Info) Description 12/02/2023 Refill [facility] MEDICINE [address] [place] [phone] Christianne John MD [address] [place] [address] Moderate persistent asthma, unspecified whether complicated Social [...] Description 12/04/2024 9:00 AM EST Office Visit [facility] ADULT DENTAL [address] [place] [address] Moy Caldwell DDS [address] [place] [address] 01/10/2025 10:00 AM EDT Office Visit [facility] ADULT DENTAL [address] [place] [address] Johana Garcia [address] [place] [address] documented as of this encounter Visit Diagnoses Diagnosis Moderate persistent asthma, unspecified whether complicated documented in this encounter
--- OUTSIDE RECORDS SUMMARY | 2024-12-01 11:56 | XMS_ITS | Encounter Summary ---
Author Organization [facility] [facility] Address [address] [place] [address] [address]t [place] [address] Care Team Providers Care Salvage Supervisor Name Role Phone Unavailable Primary Care Provider Unavailabl e Reason for Visit * Reason Comments Med Refill Encounter Details Date Type Department Care Team (Late st Contact Info) Description 11/29/[address] [facility] MEDICINE [address] [place] [phone] Christianne John MD [address] [place] [phone] Moderate persistent asthma, unspecified whether complicated Social [...] Description 12/04/2024 9:00 AM EST Office Visit [facility] ADULT DENTAL [address] [place] [address] Moy Caldwell DDS [address] [place] [address] 01/10/2025 10:00 AM EDT Office Visit [facility] ADULT DENTAL [address] [place] [address] Johana Garcia [address] [place] [address] documented as of this encounter Visit Diagnoses Diagnosis Moderate persistent asthma, unspecified whether complicated documented in this encounter
--- OUTSIDE RECORDS SUMMARY | 2024-12-01 11:56 | XMS_ITS | Encounter Summary ---
Author Organization [employer] [facility] Address [address] [place] [address] 7t [place] [address] Care Team Providers Care Alarm Operator Name Role Phone Unavailable Primary Care Provider Unavailabl e Reason for Visit * Reason Comments Dentures Encounter Details Date Type Department Care Team ([facility] st Contact Info) Description 11/03/2024 11:00 AM EST Office Visit [facility] ADULT DENTAL [address] [place] [address] Moy Caldwell DDS [address] [place] [address] Partially edentulous maxilla, unspecified edentulism class (Primary Dx); Partially edentulous mandible, unspecified edentulism class Social History Tobacco Use Types Packs/Day Years [...] AM EDT documented as of this encounter Last Filed Vital Signs Vital Sign Reading Time Taken Comments Blood Pressure 136/74 11/03/2024 11:02 AM EST Pulse - - Temperature - - Respiratory Rate - - Oxygen Saturation - - Inhaled Oxygen Concentration - - Weight - - Height - - Body Mass Index - - documented in this encounter Progress Notes * Moy Caldwell DDS - 11/03/2024 11:00 AM EST Patient ID: Louis Bean is a 79 y.o. adult. Time Out: Timeout Date: (bite registration), Timeout Time: 110 Location: [facility] Tooth: Maxilla and Mandible Procedure: DENTURE Verified the above with patient, doctor assistant, and provider. Confirmed via patient's chart, intraorally and by radiographs. Ticket Chopper Assembler: not applicable Chief Complaint Patient presents with Dentures Medical Hx: Vitals: Blood pressure 136/74. Medications, Med Hx reviewed with patient and updated in chart. Consent Obtained: The risks, benefits, indications, potential complications, and alternatives were explained to the patient and informed consent was obtained with good understanding. Treatment Provided: Dental procedures in this visit [id number] - BITE REGISTRATION Occlusal Wax rims tried in & records taken: -Vertical Dimension -Midline -Interpupillary line -Occlusal Relationship -Smile Line -Canine Walling Bite Registration taken with: wax Tooth Selection: Mould: Shade: A 2 Size: Sent to Lab for tooth set up in wax [facility] Due Date: 11-10-24 Patient discharged alert, oriented, and in stable condition. NV: Try in Mask Layout Designer: Nickie Castañeda Dentist: Moy Caldwell DDS documented in this encounter Plan of Treatment Upcoming Encounters Date Type Department Care Team (Late st Contact Info) Description 12/04/2024 9:00 AM EST Office Visit [facility] ADULT DENTAL [address] [place] [address] Moy Caldwell DDS [address] [place] [address] 01/10/2025 10:00 AM EDT Office Visit [facility] ADULT DENTAL [address] [place], [place] [phone] Johana Garcia [address] [place] [address] documented as of this encounter Procedures Procedure Name Priority Date/Time Associated Diagnosis Comments BITE REGISTRATION Routine 11/03/2024 11:00 AM EST documented in this encounter Visit Diagnoses Diagnosis Partially edentulous maxilla, unspecified edentulism class- Primary Partially edentulous mandible, unspecified edentulism class documented in this encounter
--- OUTSIDE RECORDS SUMMARY | 2024-12-01 11:56 | XMS_ITS | Encounter Summary ---
Author Organization [email or web address] Address [address] [place] [address] 7t [place] [address] Care Team Providers Care Sap Business Intelligence Consultant Name Role Phone Marycarmen Quijano MD Primary Care Provider [phone] Reason for Visit * Reason Comments Med Refill Encounter Details Date Type Department Care Team ([facility] Contact Info) Description 04/15/2023 Refill [facility] MEDICINE [address] [place] [address] Marycarmen Quijano MD [address] [place] [address] Social History Tobacco Use Types Packs/Day Years [...] Upcoming Encounters Date Type Department Care Team ([facility] Contact Info) Description 12/04/2024 9:00 AM EST Office Visit [facility] ADULT DENTAL [address] [place], [place] [phone] Moy Caldwell DDS [address] [place] [address] 01/10/2025 10:00 AM EDT Office Visit [facility] ADULT DENTAL [address] [place] [address] Radha, Johana [address] [place] [address] documented as of this encounter Visit Diagnoses Not on filedocumented in this encounter Care Teams Sap Business Intelligence Consultant Relationship Specialty Start Date End Date Marycarmen Quijano MD [address] [place] [address] PCP - General Family Medicine 03/02/23 06/20/23 documented as of this encounter
--- OUTSIDE RECORDS SUMMARY | 2024-12-01 11:56 | XMS_ITS | Encounter Summary ---
Author Organization [facility] Address [address] [place] [address] [address] [place] [address] Care Team Providers Care Inspector Screen Printing Name Role Phone Unavailable Primary Care Provider Unavailabl e Reason for Visit * Reason Comments Med Refill Encounter Details Date Type Department Care Team (Late Contact Info) Description 01/19/2024 Refill [facility] MEDICINE [address] [place] [id number] Christianne John MD [address] [place] [id number] Vitamin deficiency Social History Tobacco Use Types Packs/Day Years [...] Description 12/04/2024 9:00 AM EST Office Visit [facility] ADULT DENTAL [address] [place] [address] Moy Caldwell DDS [address] [place] [address] 01/10/2025 10:00 AM EDT Office Visit [facility] ADULT DENTAL [address] [place] [address] Johana Garcia [address] [place] [address] documented as of this encounter Visit Diagnoses Diagnosis Vitamin deficiency Unspecified vitamin deficiency documented in this encounter
--- OUTSIDE RECORDS SUMMARY | 2024-12-01 11:56 | XMS_ITS ---
Author Organization [facility] Address [address] [place] [address] Care Team Providers Care Shook Splicer Name Role Phone Jaime VORA, Shelby Primary Care Provider Unavail able Randy Leal Unavailable [phone] Allergies Allergen (clinical drug ingredient) Drug/Non Drug Allergy documented on EMR Reaction Allergy Type Onset Date Status ibuprofen Advil Unknown Drug Allergy Active Aleve Unknown Drug Allergy Active Motrin Unknown Drug Allergy Active codeine Codeine Unknown Drug Allergy Active Morphine and Related Unknown Drug Allergy Active REASON FOR VISIT At Risk Footcare Medications Medication SIG (Take, Route, Frequency, Duration) Notes Start Date End Date Status Atorvastatin Calcium 80 MG 1 tablet Orally Once a day Active Folic Acid Active Gabapentin 25 MG as directed Orally Active Losartan Potassium 25 MG 1 tablet Orally Once a day Active Torsemide 20 MG as directed Orally Active Vitamin D3 25 MCG (1000 UT) 1 capsule Orally Once a day Active Calcium Active Iron Active Mounjaro Active NovoLOG 100 UNIT/ML as directed Injection Active Extra Depth Orthopedic Shoes (1 Pair) with Customized Heat Molded Multidensity Innersoles (3 Pair) as directed Dx: NIDDM/Polyneuropathy (E11.42), Hammertoe Foot Deformity (M20.41,M20.42), Preulcerative Skin Lesion(s) (L85.1 03/17/2024 Active amLODIPine Besylate Active Toujeo SoloStar 300 UNIT/ML as directed Subcutaneous Act wendie Aspirin 81 MG 1 tablet Orally Once a day Active Social History Tobacco Use: Social History Observation Description Date Details (start date - stop date) Former Smoker NA - NA Tobacco Use/Smoking Question Answer Notes Are you a: former smoker Additional Findings: Tobacco Non-User Current no n-smoker Alcohol Screen Question Answer Notes Did you have a drink containing alcohol in the p ast year? No Points 0 Interpretation Negative Tobacco use other than smoking: Question Answer Notes Are you an other tobacco user? No Vital Signs Height 4 ft 9 in in 06/16/2024 Weight 192 lbs 06/16/2024 BMI 41.54 kg/m2 06/16/2024 Procedures Procedure Date Ordered Date Performed Result Body Sit e 39704-DVSTLMI NAIL, 6 OR MORE 06/16/2024 N/A 34847-URRN SKIN LESIONS, 2 TO 4 06/16/2024 N/A Encounters Encounter Location Date Provider Diagnosis [facility] [address] [address] 06/16/2024 Randy Leal Type 2 diabetes mellitus with diabetic polyneuropathy E11.42 and Tinea unguium B35.1 Assessments Encounter Date Diagnosis (ICD Code) Assessment Notes Treatment Notes Treatment Clinical Notes Section Notes 06/16/2024 Type 2 diabetes mellitus with diabetic polyneuropathy (ICD-10 - E11.42) 06/16/2024 Tinea unguium (ICD-10 - B35.1) Plan Of Treatment Pending Test Test Name Order Date 92064-YFGRWZD NAIL, 6 OR MORE 06/16/2024 10479-AOXA SKIN LESIONS, 2 TO 4 06/16/20 24 Next Appt Details Follow Up: 3 Months, Reason: Provider Name:Randy Leal , 12/26/2024 11:30:00 AM, [address] [place] [address], [phone], Procedure Notes * Category Sub-Category Detail Notes Debride Nail 6-10 Nail debridement Performance o f this nail treatment by a nonprofessional would put this patients foot and overall health at risk. Therefore, nail debridement was performed extensively to reduce/remove overall nail length, girth, thickness, subungual debris, and necrotic tissue, by manual and/or electrical means through the use of a nail nipper and/or dremel-type color grinder, to a more viable healthy nail plate or bed tissue 6-10. Silver nitrate used for any petechial bleeding as necessary. Definitive antifungal treatment options have been reviewed and discussed with the patient. The patient chooses, no pharmaceutical tx - 13499 Keratoma Treatment Parring or Cutting o f Benign Hyperkeratotic Lesion(s) (-56) 2-4 Lesions - The Benign hyperkeratotic lesions, as described above were pared, and/or cut utilizing a sterile 15 blade, tissue nippers, and/or dremel - 84367 Progress Notes * Katherine DIASDOB: [birth year] (79 yo F)Acc No.[id number]:06/16/2024 Progress Note Patient:?Katherine Dias Provider:?Randy Leal DPM :1945???Age:79 Y???Sex:Female D ate:06/16/2024 Address:[address] [place], [place] [id number] Pcp:Shelby Sandoval MD Subjective: * Chief Complaints: * ???At Risk Footcare * HPI: ???At Risk footcare:?Pt States Last PCP Visit:?Date?05/22/2024 ?Misc?Pt did not seek Vasc Consult as directed - no reason given.?Toe pain:?Treatments:?Rx shoes , states still needs.? * ROS:?General/Constitutional:?Nausea?denies.?Vomiting?denies.?Hunger Thirst?denies.?Loss appetite?denies.?Chills?denies.?Fatigue?denies.?Fever?denies.?Night Sweats?denies.?Unexplained weight loss?denies.?Unexplained weight gain?denies.?HEENTM:?Dentures?denies.?Dizziness?denies.?Glasses/contacts?admits.?Retinopathy?de nies.?Blurred/double vision?admits.?TMJ?denies.?Discharge/drainage?denies.?Implants?denies.?Sore throat?denies.?Dental implants?denies.?Hard of hearing ?denies.?Difficulty chewing/swallowing/speaking?denies.?Nose bleeds?denies.?Sore mouth?denies.?Respiratory:?On Oxygen?denies.?Pneumonia/pleurisy?denies.?Bronchitis?denies.?Emphysema?denies.?C oughing?denies.?Cough blood?denies.?Shortness of breath?admits.?Wheezing?denies.?Cardiovascular:?Pacemaker?denies.?MVP?denies.?WPW?denies.?CHF?denies.?Heart attack?admits.?Septal defect?denies.?Rapid beat?denies.?Chest pain ?denies.?Atrial Fib.?denies.?Murmur/Palpitations?denies.?Gastrointestinal:?Hemorrhoids?denies.?Stomach/Abdominal pain?admits.?Dark blood stool?denies.?Irritable bowel ?denies.?Constipation?denies.?Diarrhea?admits.?Hematology:?Swelling?denies.?Clots?denies.?Varicose Veins?denies.?Bruising?denies.?Bleeding problem?denies.?Genitourinary:?Blood urine?denies.?Frequent/Painfu/urination/bladder control?admits.?Kidney stones?denies.?Infection (UTI)?admits.?Nephropathy?denies.?sex trans dis (STD)?denies.?Prostate?denies.?Musculoskeletal:?Hammertoes?admits.?Bunions?denies.?Back Pain?admits.?Muscle Cramps/ Resting?admits.?Muscle cramps / walking?admits.?Generalized aches and pains?denies.?Weakness?admits.?Integ.:?Harrison?denies.?Scars?denies.?Corns/calluses?admits.?Ingrown nails?admits.?Painful nails?denies.?Open Sores?denies.?Rashes?denies.?Neurologic:?Difficulty sleeping?denies.?Brain disorder?denies.?Numbness?admits.?Balance trouble?admits.?Confusion?denies.?Fainting/blackouts?denies.?Tingling?denies.?Tr emors?denies.? * Medical History:? * Surgical History:?Denies Pas t Surgical History * Hospitalization/Major Diagno stic Procedure:?Denies Past Hospitalization * Family History:?Mother: dece ased, foot problems, kidney/liver disease, poor circulation, diagnosed with Family history of arthritis, Diabetic - NIDDM, Unspecified essential hypertension, Unspecified heart disease, Unspecified cerebral artery occlusion with cerebral infarction.?Father: .?Siblings: diagnosed with Diabetic - NIDDM, Other malignant neoplasm of unspecified site.? * Social History:?Tobacco Use:?Tobacco Use/Smoking?Are you a:?former smoker ?Additional Findings: Tobacco Non-User?Current non-smoker ?Tobacco use other than smoking?Are you an other tobacco user??No ???Drugs/Alcohol:?Drugs?Have you used drugs other than those for medical reasons in the past 12 months??No ?Alcohol Screen?Did you have a drink containing alcohol in the past year??No ?Points?0 ?Interpretation?Negative ???Miscellaneous:?Caffeine: yes, frequency:. ?Children: yes, 9. ?no Exercise. ?Marital status: . ?Occupation: Retired. * Medications:?TakingToujeo So loStar 300 UNIT/ML Solution Pen-injector as directed Subcutaneous NovoLOG 100 UNIT/ML Solution as directed Injection Mounjaro Iron Calcium Vitamin D3 25 MCG (1000 UT) Capsule 1 capsule Orally Once a dayTorsemide 20 MG Tablet as directed Orally Losartan Potassium 25 MG Tablet 1 tablet Orally Once a dayGabapentin 25 MG Tablet as directed Orally Folic Acid Atorvastatin Calcium 80 MG Tablet 1 tablet Orally Once a dayAspirin 81 MG Tablet Chewable 1 tablet Orally Once a dayamLODIPine Besylate Extra Depth Orthopedic Shoes (1 Pair) with Customized Heat Molded Multidensity Innersoles (3 Pair) as directed Dx: NIDDM/Polyneuropathy (E11.42), Hammertoe Foot Deformity (M20.41,M20.42), Preulcerative Skin Lesion(s) (L85.1Medication List reviewed and reconciled with the patientTaking Toujeo SoloStar 300 UNIT/ML Solution Pen-injector as directed Subcutaneous Taking NovoLOG 100 UNIT/ML Solution as directed Injection Taking Mounjaro Taking Iron Taking Calcium Taking Vitamin D3 25 MCG (1000 UT) Capsule 1 capsule Orally Once a dayTaking Torsemide 20 MG Tablet as directed Orally Taking Losartan Potassium 25 MG Tablet 1 tablet Orally Once a dayTaking Gabapentin 25 MG Tablet as directed Orally Taking Folic Acid Taking Atorvastatin Calcium 80 MG Tablet 1 tablet Orally Once a dayTaking Aspirin 81 MG Tablet Chewable 1 tablet Orally Once a dayTaking amLODIPine Besylate Taking Extra Depth Orthopedic Shoes (1 Pair) with Customized Heat Molded Multidensity Innersoles (3 Pair) as directed Dx: NIDDM/Polyneuropathy (E11.42), Hammertoe Foot Deformity (M20.41,M20.42), Preulcerative Skin Lesion(s) (L85.1Medication List reviewed and reconciled with the patient * Allergies:?AdvilAleveMotrinM orphine and RelatedCodeineyes[Allergies Verified] Objective: * Vitals:?Ht: 4 ft 9 in, Wt:19 2, BMI:41.54, Shoe size:5.5, BS:10.. * ???Past Orders: ???Lab:HEMOGLOBIN A1C (GLYCO HEMOGLOBIN) (Order Date - 03/17/2024) (Collection Date - 02/02/2024) ? Value Reference Range ?HEMOGLOBIN A1C (HH) 8.6 * Examination: ???Neurological: ?SENSORY:? Neurological exam demonstrates, reduced light touch sensation, reduced sharp/dull pin prick discrimination , at Forefoot, B/L, 5.07 monofilament test performed at plantar aspects of 5 varied sites per foot shows sensation, reduced , at Forefoot, B/L.?Nails: ?NAILS are:?Elongated, overgrown, dystrophic, lytic, greater than 3mm thick, discolored and friable with crumbly malodorous subungual debris , 1-5 B/L.?Dermatologic: ?SKIN FINDINGS:?Skin exam reveals Keratotic lesion(s) located at , SUB MTH (s) , 1 , B/L , Heel(s) , B/L.? Assessment: * Assessment: 1.?Type 2 diabetes mellitus with diabetic polyneuropathy - E11.42 (Primary)?2.?Tinea unguium - B35.1? Plan: * Treatment: * Procedures:?Debride Nail 6-10:?Nail debridement?Performance of this nail treatment by a nonprofessional would put this patients foot and overall health at risk. Therefore, nail debridement was performed extensively to reduce/remove overall nail length, girth, thickness, subungual debris, and necrotic tissue, by manual and/or electrical means through the use of a nail nipper and/or dremel-type color grinder, to a more viable healthy nail plate or bed tissue 6-10. Silver nitrate used for any petechial bleeding as necessary. Definitive antifungal treatment options have been reviewed and discussed with the patient. The patient chooses, no pharmaceutical tx - 44443.?Keratoma Treatment:?Parring or Cutting of Benign Hyperkeratotic Lesion(s)?(-56) 2-4 Lesions - The Benign hyperkeratotic lesions, as described above were pared, and/or cut utilizing a sterile 15 blade, tissue nippers, and/or dremel - 90399.? * Procedure Codes:?07331 DEBRI DE NAIL, 6 OR MORE, Modifiers: XS 21204 TRIM SKIN LESIONS, 2 TO 4, Modifiers: XS * Preventive Medicine:? ??Counseling:?Consult:?Patient was again referred to Vascular due to pedal risk of limb/life, patient did not follow up with vascular surgery. Patient endorses understanding regarding diagnosis and need for Vascular consult.?Shoe Gear Counseling:?Patient to obtain shoes hopefully soon.? * Follow Up:?3 Months * Images: * Sign off status: Completed true * Provider:?Randy Leal DPM Date:?2023 Generated for Herber olea/Rolando/Emely on:?12/01/2024 11:55 AM EST History and Physical Notes * HPI (History of Present Illness) Category Sub-Category Detail Notes Category Not es Toe pain Treatments: Rx shoes , state s still needs At Risk footcare Pt States Last PCP Visit: Date: 4 Misc Pt did not seek Vasc Consult as directed - no reason given Examination Category Sub-Category Detail Notes Category Not es Neurological SENSORY: Neurological exa m demonstrates, reduced light touch sensation, reduced sharp/dull pin prick discrimination , at Forefoot, B/L, 5.07 monofilament test performed at plantar aspects of 5 varied sites per foot shows sensation, reduced , at Forefoot, B/L Dermatologic SKIN FINDINGS: Skin exam reveal s Keratotic lesion(s) located at , SUB MTH (s) , 1 , B/L , Heel(s) , B/L Nails NAILS are: Elongated, overg rown, dystrophic, lytic, greater than 3mm thick, discolored and friable with crumbly malodorous subungual debris , 1-5 B/L
== END 2024-12-01 11:12 | disposition home or self-care (01) ==
PROVIDERS: PCP Internal Medicine; Visit Provider Physician Assistant
DX: E11.22 Type 2 diabetes mellitus with diabetic chronic kidney disease (principal); E11.65 Type 2 diabetes mellitus with hyperglycemia; Z79.4 Long term (current) use of insulin; E55.9 Vitamin D deficiency, unspecified; I10 Essential (primary) hypertension; N18.32 Chronic kidney disease, stage 3b; E21.3 Hyperparathyroidism, unspecified; E78.5 Hyperlipidemia, unspecified

== ENCOUNTER → 2024-12-01 10:28 | Outpatient (BNVA) | payer OTHER, SELFPAY | PROVIDERS: PCP Internal Medicine; Visit Provider Physician Assistant | DX: I12.9 Hypertensive chronic kidney disease with stage 1 through stage 4 chronic kidney disease, or unspecified chronic kidney disease (principal); E11.22 Type 2 diabetes mellitus with diabetic chronic kidney disease; N18.32 Chronic kidney disease, stage 3b; E11.65 Type 2 diabetes mellitus with hyperglycemia; Z79.4 Long term (current) use of insulin; E55.9 Vitamin D deficiency, unspecified; E21.3 Hyperparathyroidism, unspecified; E78.5 Hyperlipidemia, unspecified | CPT/HCPCS: 82947; 99212 ==

== ENCOUNTER 2025-01-11 09:30 | Outpatient (AMB) | payer OTHER, SELFPAY ==
[2025-01-11 09:32] VITALS: BP 120/78; PULSE 65; O2SAT 97; BMI 40.5
--- NOTE | 2025-01-11 09:32 | A.OFFVIS_ITS ---
Vital Signs 01/11/25 09:32 Height 4 ft 9 in Weight 187 lb 6.287 oz BMI 40.5 BP 120/78 Blood Pressure Location Rt brachial Position Sitting Pulse 65 Pulse Source Pulse Oximeter Pulse Oximetry (%) 97 Oxygen Delivery Method Room Air Intake Visit Reasons: hyperparathyroidism Intake Note: Patient presents here today to [facility] treatment for Hyperparathyroidism: Field Account Manager Required: Yes Field Account Manager Language: Rhit Services: Field Account Manager Offered & Declined Accompanied by: Daughter Allergies ibuprofen [From Motrin] Allergy (Intermediate, Verified 01/11/25 09:38) High Blood Pressure, Rash oxycodone [From Percocet] Allergy (Intermediate, Verified 01/11/25 09:38) Itching tirzepatide [From Mounjaro] Adverse Reaction (Severe, Verified 01/11/25 09:38) Diarrhea Medication List - Last Reconciled 01/11/25 by Nafisa Mao MD amlodipine 10 mg PO DAILY aspirin 81 mg PO BEDTIME 90 days atorvastatin 80 mg PO BEDTIME 90 days blood pressure monitor As directed blood sugar diagnostic (FreeStyle Lite Strips) 3times a day blood-glucose meter (FreeStyle [place] Lite kit) As directed blood-glucose sensor (FreeStyle [place] 3 Sensor device) Apply every 14 days As directed to monitor blood glucose blood-glucose sensor (Dexcom G7 Sensor device) Use daily As directed to monitor blood glucose. Change q 10 days blood-glucose,soldering inspector,cont (Dexcom G7 Front End Engineer) use daily As directed to monitor blood glucose budesonide-formoterol 160-4.5 mcg/actuation (Symbicort) 2 puffs inhalation BID 30 days calcium acetate(phosphat bind) 667 mg PO BID 90 days cefuroxime axetil 500 mg PO BID cholecalciferol (vitamin D3) 25 mcg PO DAILY 90 days clotrimazole-betamethasone 1-0.05 % 1 appl topical BID 5 days disposable gloves As directed ferrous sulfate 325 mg PO .once a week 90 days fluticasone propionate 50 mcg/actuation 1 spray intranasal DAILY PRN 30 days folic acid 1 mg PO QAM 90 days FreeStyle Lancets (lancets) 3 times a day NS gabapentin 300 mg PO BEDTIME 90 days hydralazine 25 mg PO TID 90 days hydrocortisone 1% (Anti-Itch (hydrocortisone)) 1 appl topical BID PRN 4 weeks [incomtinemce liner pads As directed] insulin glargine U-300 conc (Toujeo SoloStar U-300 Insulin) 24 units (0.08 mL) subcut DAILY 90 days ipratropium-albuterol 0.5 mg-3 mg(2.5 mg base)/3 mL 3 mL inhalation RQ4H WHILE AWAKE ketoconazole 2% 1 appl topical 2XW 30 days lancets (TRUEplus Lancets) As directed test 4 times a day losartan 25 mg PO DAILY 90 days montelukast 10 mg PO QPM 90 days Novolog FlexPen U-100 Insulin (insulin aspart U-100) 4 units (0.04 mL) subcut TID NS omeprazole 40 mg PO DAILY Oxygen Home Use As directed pen needle, diabetic (BD Sia 2nd Gen Pen Needle) 5 times a day semaglutide (Ozempic) 1 mg (0.75 mL) subcut QWEEK simethicone (Gas Relief (simethicone)) 250 mg (2 x 125 mg) PO BID PRN 90 days sucralfate 1 g PO BID PRN terconazole 0.8% 1 appful vaginal BEDTIME 3 days tobramycin-dexamethasone 0.3-0.1 % 1 drp ophthalmic (eye) QID torsemide 20 mg PO BID [wipes As directed] HPI Comments Details: 79-year-old female here today for initial evaluation of elevated PTH level. Here today with daughter who is doing the interpretation. Lives with daughter. Dependent for ADLs and IADLs. Has history of type 2 DM, follows at our office with YASMIN Marques for this , not addressed today. Chart review shows PTH level noted to be at 101.2 from 11/14/2024, vitamin-D level low at 24.9, calcium level normal at 9.2, albumin of 3.3, corrected calcium would be 9.8. Patient has CKD stage 3, EGFR 46. Normal phosphorus and magnesium. She has had some high normal calcium levels in the past over 2023 of 10.4. Does have history of kidney stones (also seen on US kidney 02/24, non obstructing) She has CKD stage 3 , follows with nephro , in the setting of longstanding DM and HTN DEXA February 2023, showed osteopenia of left femoral neck with T score - 1.9, normal lumbar spine bone density , FRAX does not meet criteria for trx , no recent fractures On vitamin D 1000 units daily on calcium acetate 600 mg BID for phosphate binder one glass of milk everyday , cheese often , yogurt sometimes no hctz use No family history of kidney stones or calcium problems Physical exam General: sitting comfortably in no acute distress HEENT: normocephalic/atraumatic, Neck: supple, symmetrical Cardiac: normal heart sounds Pulm: normal breath sounds B/L, no added breath sounds Abd: not distended, no tenderness Extremities: no edema Laboratory Tests 12/01/21 12/01/21 10/09/22 14:47 14:52 09:22 Creatinine Estimated GFR Calcium 9.3 Phosphorus 3.9 Ionized Calcium Magnesium 25-OH Vitamin D Total PTH Intact 80 H Ur Random Calcium Urine Creatinine 10/10/22 10/11/22 12/07/22 13:16 05:47 15:44 Creatinine Estimated GFR 42 39 Calcium 9.3 9.5 8.9 D Phosphorus 4.5 Ionized Calcium Magnesium 25-OH Vitamin D Total 35.8 PTH Intact 109 H Ur Random Calcium Urine Creatinine 02/03/23 02/03/23 02/03/23 09:43 09:43 09:43 Creatinine Estimated GFR 31 Calcium 9.0 9.1 Phosphorus Ionized Calcium Magnesium 25-OH Vitamin D Total 41.4 45.1 PTH Intact Ur Random Calcium Urine Creatinine 02/03/23 04/16/23 04/17/23 09:43 13:23 06:04 Creatinine Estimated GFR 32 29 28 Calcium 10.3 H D 9.7 Phosphorus 4.4 Ionized Calcium Magnesium 25-OH Vitamin D Total PTH Intact 82 H Ur Random Calcium Urine Creatinine 05/05/23 05/24/23 06/02/23 10:40 20:17 08:58 Creatinine Estimated GFR 39 36 38 Calcium 9.7 9.5 9.4 Phosphorus Ionized Calcium Magnesium 25-OH Vitamin D Total 30.1 PTH Intact Ur Random Calcium Urine Creatinine 10/13/23 12/26/23 01/25/24 08:43 16:16 13:22 Creatinine 1.48 H 1.46 H 1.51 H Estimated GFR 34 35 33 Calcium 9.4 9.7 9.8 Phosphorus Ionized Calcium Magnesium 2.4 25-OH Vitamin D Total < 3.5 L 28.1 L PTH Intact Ur Random Calcium Urine Creatinine 02/21/24 03/24/24 05/08/24 14:26 11:42 08:48 Creatinine 1.68 H 1.40 1.39 Estimated GFR 29 36 37 Calcium 10.4 H D 9.9 9.2 D Phosphorus 3.3 Ionized Calcium Magnesium 2.2 25-OH Vitamin D Total 30.8 L PTH Intact 91.9 H 121.6 H Ur Random Calcium Urine Creatinine 07/19/24 09/05/24 11/14/24 18:11 08:39 07:27 Creatinine 1.63 H 1.54 H Estimated GFR 30 32 Calcium 9.8 D Phosphorus Ionized Calcium Magnesium 2.3 25-OH Vitamin D Total PTH Intact Ur Random Calcium 1.7 Urine Creatinine 50.58 11/14/24 11/14/24 11/14/24 07:49 07:49 07:49 Creatinine 1.15 1.18 Estimated GFR 44 Calcium 9.2 D 9.4 Phosphorus Ionized Calcium Magnesium 25-OH Vitamin D Total 24.9 L PTH Intact Ur Random Calcium Urine Creatinine 11/14/24 11/14/24 07:49 11:54 Creatinine Estimated GFR 46 Calcium Phosphorus 3.5 Ionized Calcium 5.4 Magnesium 2.2 25-OH Vitamin D Total PTH Intact 101.2 H Ur Random Calcium Urine Creatinine Laboratory Tests 07/19/24 11/14/24 11/14/24 18:11 07:49 07:49 Albumin 3.6 3.3 L 3.3 L BONE DENSITOMETRY 02/26/23 CLINICAL INDICATION: Unspecified menopausal and perimenopausal disorder. COMPARISON: Previous BD dated 04/23/2020 and baseline BD dated 10/21/2007. TECHNIQUE: Using a [employer] DXA System (software version: 13.1) manufactured by [employer], dual-energy x-ray absorptiometry was performed of the lumbar spine and left hip. The images are of good technical quality. Summary results are attached. FINDINGS: AP SPINE L1-L4: Current: BMD 1.188 g/cm2, Z-score 0.9, T-score 0.1, normal, 3.8% increase from previous, 18.0% increase from baseline (<5% change is not significant). Prior: BMD 1.144 g/cm2. Baseline: BMD 1.007 g/cm2. LEFT FEMUR, NECK: Current: BMD 0.771 g/cm2, Z-score -0.5, T-score -1.9, osteopenia. Prior: BMD 0.933 g/cm2. Baseline: BMD 0.989 g/cm2. LEFT FEMUR, TOTAL: Current: BMD 0.901 g/cm2, Z-score 0.4, T-score -0.8, normal, 18.7% decrease from previous, 26.7% decrease from baseline (<5% change is not significant). Prior: BMD 1.108 g/cm2. Baseline: BMD 1.229 g/cm2. IDENTIFIED RISK FACTORS: Anticonvulsant, menopause, renal. HISTORY OF FRACTURE: None listed. MEDICATIONS: Vitamin D. US RETROPERITONEAL COMPLETE (RENAL) 02/29/24 CLINICAL INFORMATION: Urge incontinence. COMPARISON: MR abdomen 01/07/2023, CT abdomen and pelvis 07/01/2022. TECHNIQUE: Real-time imaging of the kidneys and bladder. FINDINGS: RIGHT KIDNEY: 10.9 x 3.9 x 5.0 cm (SAG x AP x TRV). The kidney is normal in size, contour, and echogenicity. Renal cortical thickness is normal. There is a lower pole 6 mm echogenic focus seen consistent with a nonobstructing calculus. No hydronephrosis. A benign 2.4 cm lower pole Bosniak class I renal cyst is noted along with multiple other smaller cysts. These require no additional imaging or follow up. No solid renal masses are seen. LEFT KIDNEY: 11.1 x 4.4 x 4.8 cm (SAG x AP x TRV). The kidney is normal in size, contour, and echogenicity. Renal cortical thickness is normal. Single punctate 3 mm nonobstructing calculus seen at the lower pole. No other calculi or focal parenchymal lesions. No hydronephrosis. BLADDER: Well distended and normal. Bilateral ureteral jets are not demonstrated. Prevoid bladder volume is 427 mL. Postvoid bladder volume is 34 mL. US/US retroperitoneal comp IMPRESSION: 1. Bilateral nonobstructing renal calculi. 2. Benign Bosniak class I right renal cysts need no further imaging or follow up. 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 Aortic stenosis CKD (chronic kidney disease) stage 3, GFR 30-59 ml/min Dyslipidemia Diabetic polyneuropathy associated with type 2 diabetes mellitus Diabetic nephropathy associated with type 2 diabetes mellitus Chronic kidney disease Hypertension Asthma Thalamic pain syndrome GERD (gastroesophageal reflux disease) Morbid obesity Surgical History H/O aortic valve replacement History of breast lump/mass excision History of tubal ligation History of cholecystectomy Family History Sister History of renal pelvis cancer Father Suicide Mother Lung disease Diabetes mellitus Social History Household Members: Family Housing: House Do you presently have visiting nurse or other home services: Yes (social worker aide) Alcohol intake: never Comment: pt stays with pt. Patient Tobacco Use Status: Former Tobacco user Tobacco use type: Cigarette Years Smoked: 5 years e-Cigarette/Vaping Use: Never Used Second Hand Smoke Exposure: No service: No Current occupational status: unemployed and disabled Gender identity: Female Cognitive needs: Yes Hearing needs: No Vision needs: No Female Reproductive History Menstrual Age of Menarche: 10 Physical Exam Vital Signs: Last Vital Signs Pulse 65 01/11/25 09:32 BP 120/78 01/11/25 09:32 Pulse Ox 97 01/11/25 09:32 Oxygen Delivery Method Room Air 01/11/25 09:32 BMI result Body Mass Index 40.5 Assessment & Plan Assessment & Plan (1) Hyperparathyroidism: Code(s): E21.3 - Hyperparathyroidism, unspecified Category: Medical Plan: 79-year-old female here today for initial evaluation of elevated PTH level. Chart review shows PTH level noted to be at 101.2 from 11/14/2024, vitamin-D level low at 24.9, calcium level normal at 9.2, albumin of 3.3, corrected calcium would be 9.8. Patient has CKD stage 3, EGFR 46. Normal phosphorus and magnesium. She has had some high normal calcium levels in the past over 2023 of 10.4. Possibly could have PTH elevation in the setting of vitamin-D deficiency, per patient's daughter she has been regularly taking the 1000 units of vitamin-D daily now, we will repeat vitamin-D and calcium levels as well as a concurrent PTH level. She also has CKD stage 3, some degree of PTH elevation could be from secondary hyperparathyroidism in the setting of kidney disease. Once her vitamin-D is optimized, if her PTH remains elevated, we will do further investigation for possible primary hyperparathyroidism. She does have history of kidney stones, plus given reduced GFR she would qualify for surgery if she has primary hyperparathyroidism. Otherwise bone density from 2022 showed osteopenia of the left femoral neck, FRAX does not qualify her for treatment. However given her age plus comorbidities, she might not be an ideal surgical candidate. Her calcium levels are not super elevated for us to consider cinacalcet. At this time we will proceed with optimizing her vitamin-D level and repeating labs. Because I have noticed some PTH assay concerns at our lab, I have asked her to repeat labs at [facility] Plan: -ordered calcium, albumin, ionized calcium, vitamin-D, creatinine, PTH, to be done at [facility] with follow up in 4 weeks Plan I spent 45 minutes in reviewing the record, seeing the patient and documenting in the medical record. Orders: Orders Albumin Level Today E21.3 - Hyperparathyroidism, unspecified Calcium Today E21.3 - Hyperparathyroidism, unspecified Calcium, Ionized Today E21.3 - Hyperparathyroidism, unspecified Parathyroid Hormone Intact Today E21.3 - Hyperparathyroidism, unspecified Phosphorus Today E21.3 - Hyperparathyroidism, unspecified Vitamin D 25-OH Total Today E21.3 - Hyperparathyroidism, unspecified Creatinine Today E21.3 - Hyperparathyroidism, unspecified Patient Instructions: Do blood work at [facility] Please have them fax the results to me Dr. Nafisa Mao at [phone] Coding Level of Care Code New Pt Level 4 (09273) Diagnoses Hyperparathyroidism E21.3 Time Spent (min) 45
--- OUTSIDE RECORDS SUMMARY | 2025-01-11 10:28 | XMS_ITS ---
Author Organization [facility] Care Team Providers Care Pot Fisher Name Role Phone Gato Tyler Unavailable Unavailable Missy Thacker Unavailable Unavailable Missy Moran Unavailable Unavailable Allergies and adverse reactions Code CodeSystem Substance Reaction Severity StartDate Concern Status 7804 RXNORM Oxycodone Unknown 01/28/2021 active Motrin Unknown 01/28/2021 active 5640 RXNORM Ibuprofen Unknown 01/28/2021 active 161 RXNORM Acetaminophen Unknown 01/28/2021 active Care Team Name Role Address Phone Organization Dates Gato Tyler PCP [address], [address], [place] (Office): : [facility] 01/28/2021 - 02/19/2021 Missy Thacker Attending Physician [facility] 01/28/2021 - 02/19/2021 Missy Moran Attending Physician [address] [address], [place], [address], [place] (Office): [facility] 01/28/2021 - 02/19/2021 Immunizations Immunization Status Vaccine Details Vaccine Code CodeSystem Date Notes Influenza completed Influenza, split virus, trivalent, injectable, contains preservative 141 CVX created date: 01/29/2021 administer ed date: 06/05/2020 TB 1 Step Mantoux (PPD) completed tuberculin skin test; unspecified formulation lotNumber: [id number] expiry: 11/10/2021 Mfg: par Given 0.1 ml Left Forearm intradermally 98 CVX created date: 01/29/2021 consent date: 01/29/2021 administer ed date: 01/29/2021 PCV13 (Pneumococcal Conjugate)Vaccin e cancelled pneumococcal conjugate vaccine, 13 valent 133 CVX created date: 01/29/2021 consent date: 01/29/2021 states does not want, education provided Mental Status Section Date Assessment Total Score Description 02/19/2021 BIMS 13 cognitively int act CAM 0 No delirium ind icated PHQ-9 00 02/02/2021 BIMS 13 cognitively int act CAM 0 No delirium ind icated PHQ-9 02 minimal depress ion Problems Problem # Description Date of onset Resolved Date Code CodeSystem Concern Status 1 ACUTE KIDNEY FAILURE, UNSPECIFIED 01/29/[address] active 2 ATHEROSCLEROTIC HEART DISEASE OF [place] CORONARY ARTERY WITHOUT ANGINA PECTORIS 01/29/[address] active 3 CHRONIC KIDNEY DISEASE, UNSPECIFIED 01/29/[address] active 4 COVID-19 01/29/[address] active 5 DYSPHAGIA, ORAL PHASE 01/29/[address] active 6 ESSENTIAL (PRIMARY) HYPERTENSION 01/29/[address] active 7 GASTRO-ESOPHAGEAL REFLUX DISEASE WITHOUT ESOPHAGITIS 01/29/[address] active 8 HYPERLIPIDEMIA, UNSPECIFIED 01/29/[address] active 9 HYPO-OSMOLALITY AND HYPONATREMIA 01/29/[address] active 10 MUSCLE WASTING AND ATROPHY, NOT ELSEWHERE CLASSIFIED, LEFT LOWER LEG 01/29/[address] active 11 MUSCLE WASTING AND ATROPHY, NOT ELSEWHERE CLASSIFIED, RIGHT LOWER LEG 01/29/[address] active 12 OBESITY, UNSPECIFIED 01/29/[address] active 13 OTHER MALAISE 01/29/[address] active 14 OTHER REDUCED MOBILITY 01/29/[address] active 15 PERIPHERAL VASCULAR DISEASE, UNSPECIFIED 01/29/[address] active 16 RESPIRATORY FAILURE, UNSPECIFIED WITH HYPOXIA 01/29/[address] active 17 TYPE 2 DIABETES MELLITUS WITH DIABETIC NEUROPATHY, UNSPECIFIED 01/29/[address] active 18 UNSPECIFIED ASTHMA, UNCOMPLICATED 01/29/[address] active 19 UNSTEADINESS ON FEET 01/29/[address] active Reason for Referral No Reasons for Referral Entered Social History Social History Observation Description Start Date End Date Code Code System Current Smoking Status Tobacco smoking consumption unknown 866718824 SNOMED CT Sex Assigned At Female 1945 41700-6 [facility] Vital Signs Code Code System Vitals Name Values and Units Timing Information 9279-1 [facility] Respiratory Rate Value=16.0 Units=/m in 02/19/2021 43333-7 [facility] O2 % BldC Oximetry Value=95.0 Units= % 02/19/2021 8310-5 [facility] Body Temperature Value=97.5 Units=?? F 02/19/2021 24576-5 [facility] Pain Level Value=0.0 02/19/2021 2339-0 [facility] Blood Sugar Wdalc=918.0 Units=mg/dL 02/19/2021 18315-7 [facility] Weight Qfvze=929.2 Units=Lbs 8462-4 [facility] Blood Pressure-Diastolic Value=60 Un its=mmHg 01/31/2021 8480-6 [facility] Blood Pressure-Systolic Mselh=475 Un its=mmHg 01/31/2021 8867-4 [facility] Heart rate Value=83.0 Units=/min 8302-2 [facility] Height Value=61.0 Units=Inches 01/28/2021
--- OUTSIDE RECORDS SUMMARY | 2025-01-11 10:28 | XMS_ITS | Encounter Summary ---
Author Organization [employer] [facility] Address [address] [place] [address] [address] [place] [address] Care Team Providers Care Still Operator Helper Name Role Phone Marycarmen Quijano MD Primary Care Provider [phone] Reason for Visit * Reason Comments Med Refill Encounter Details Date Type Department Care Team ([facility] Contact Info) Description 04/04/2023 Refill [facility] MEDICINE [address] [place] [address] Marycarmen Quijano MD [address] [place] [address] Social History Tobacco Use Types Packs/Day Years [...] Upcoming Encounters Date Type Department Care Team ([facility] Contact Info) Description 01/12/2025 9:00 AM EDT Office Visit [facility] ADULT DENTAL [address] [place] [address] Johana Garcia [address] [place] [address] documented as of this encounter Visit Diagnoses Not on filedocumented in this encounter Care Teams Still Operator Helper Relationship Specialty Start Date End Date Marycarmen Quijano MD [address] [place] [address] PCP - General Family Medicine 03/02/23 06/20/23 documented as of this encounter
--- OUTSIDE RECORDS SUMMARY | 2025-01-11 10:28 | XMS_ITS | Encounter Summary ---
Author Organization [facility] [facility] Address [address] [place] [address] [address] [place] [address] Care Team Providers Care Bottom Crane Operator Name Role Phone Marycarmen Quijano MD Primary Care Provider Reason for Visit * Reason Comments Med Refill Encounter Details Date Type Department Care Team ([facility] Contact Info) Description 03/03/2023 Refill [facility] MED & PEDS [address] [place], [place] [phone] Marycarmen Quijano MD [address] [place] [address] Primary hypertension Social History Tobacco Use Types [...] Encounters Date Type Department Care Team ([facility] Contact Info) Description 01/12/2025 9:00 AM EDT Office Visit [facility] ADULT DENTAL [address] [place] [address] RadhaJohana [address] [place] [address] documented as of this encounter Visit Diagnoses Diagnosis Primary hypertension Unspecified essential hypertension documented in this encounter Care Teams Bottom Crane Operator Relationship Specialty Start Date End Date Marycarmen Quijano MD [address] [place] [address] PCP - General Family Medicine 03/02/23 06/20/23 documented as of this encounter
--- OUTSIDE RECORDS SUMMARY | 2025-01-11 10:28 | XMS_ITS | Encounter Summary ---
Author Organization [employer] [facility] Address [address] [place] [address] [address] [place] [address] Care Team Providers Care Repair Clerk Name Role Phone Marycarmen Quijano MD Primary Care Provider [phone] Reason for Visit * Reason Comments Med Refill Encounter Details Date Type Department Care Team (Late Contact Info) Description 03/07/2023 Refill [facility] CHC MED & PEDS [address] [place], [place] [phone] Marycarmen Quijano MD [address] [place] [address] Social History Tobacco Use Types Packs/Day Years [...] Department Care Team (Late Contact Info) Description 01/12/2025 9:00 AM EDT Office Visit [facility] ADULT DENTAL [address] [place] [address] Radha Johana [address] [place] [address] documented as of this encounter Visit Diagnoses Not on filedocumented in this encounter Care Teams Repair Clerk Relationship Specialty Start Date End Date Marycarmen Quijano MD [address] [place] [address] PCP - General Family Medicine 03/02/23 06/20/23 documented as of this encounter
--- OUTSIDE RECORDS SUMMARY | 2025-01-11 10:28 | XMS_ITS | Encounter Summary ---
Author Organization [facility] Address [address] [place] [address] [address] [place] [address] Care Team Providers Care Asphalt Blender Name Role Phone Marycarmen Quijano MD Primary Care Provider Reason for Visit * Reason Comments Med Refill Encounter Details Date Type Department Care Team (Late st Contact Info) Description 03/10/2023 Refill [facility] CHC MED & PEDS [address] [place], [place] [phone] Marycarmen Quijano MD [address] [place] [address] Primary hypertension Social History Tobacco Use Types [...] Description 01/12/2025 9:00 AM EDT Office Visit [facility] ADULT DENTAL [address] [place] [address] Santos Garciaaris [address] [place] [address] documented as of this encounter Visit Diagnoses Diagnosis Primary hypertension Unspecified essential hypertension documented in this encounter Care Teams Asphalt Blender Relationship Specialty Start Date End Date Marycarmen Quijano MD [address] [place] [address] PCP - General Family Medicine 03/02/23 06/20/23 documented as of this encounter
--- OUTSIDE RECORDS SUMMARY | 2025-01-11 10:28 | XMS_ITS | Encounter Summary ---
Author Organization [employer] Address [address] [place] [address] Care Team Providers Care Radiographer Mammographer Name Role Phone Marycarmen Quijano MD Primary Care Provider [phone] Reason for Visit * Reason Comments Med Refill Encounter Details Date Type Department Care Team ([facility] Contact Info) Description 04/12/[address] [facility] [address] [place] [address] Jose Johnson MD [address] [place] [address] Social History Tobacco Use Types Packs/Day Years [...] Upcoming Encounters Date Type Department Care Team ([facility] Contact Info) Description 01/12/2025 9:00 AM EDT Office Visit [facility] [address] [place] [address] Johana Garcia [address] [place] [address] documented as of this encounter Visit Diagnoses Not on filedocumented in this encounter Care Teams Radiographer Mammographer Relationship Specialty Start Date End Date Marycarmen Quijano MD [address] [place] [address] PCP - General Family Medicine 03/02/23 06/20/23 documented as of this encounter
--- OUTSIDE RECORDS SUMMARY | 2025-01-11 10:28 | XMS_ITS | Encounter Summary ---
Author Organization [facility] [facility] Address [address] [place] [address] 7t [place] [address] Care Team Providers Care Catering Truck Operator Name Role Phone Marycarmen Quijano MD Primary Care Provider [phone] Reason for Visit * Reason Comments Med Refill Encounter Details Date Type Department Care Team ([facility] Contact Info) Description 04/15/2023 Refill [facility] [address] [place] [address] Marycarmen Quijano MD [address] [place] [address] Social History Tobacco Use Types Packs/Day Years [...] Department Care Team ([facility] Contact Info) Description 01/12/2025 9:00 AM EDT Office Visit [facility] [address] [place] [address] Johana Garcia [address] [place] [address] documented as of this encounter Visit Diagnoses Not on filedocumented in this encounter Care Teams Catering Truck Operator Relationship Specialty Start Date End Date Marycarmen Quijano MD [address] [place] [address] PCP - General Family Medicine 03/02/23 06/20/23 documented as of this encounter
--- OUTSIDE RECORDS SUMMARY | 2025-01-11 10:29 | XMS_ITS | Encounter Summary ---
Author Organization [email or web address] [facility] Address [address] [place] [address] 7t [place] [address] Care Team Providers Care Caponizer Name Role Phone Marycarmen Quijano MD Primary Care Provider [phone] Reason for Visit * Reason Comments Med Refill Encounter Details Date Type Department Care Team ([facility] Contact Info) Description 02/06/2023 Refill [facility] [address] [place] [address] Maryacrmen Quijano MD [address] [place] [address] Social History Tobacco Use Types Packs/Day Years [...] Encounters Date Type Department Care Team ([facility] Contact Info) Description 01/12/2025 9:00 AM EDT Office Visit [facility] [address] [place] [address] Johana Garcia [address] [place] [address] documented as of this encounter Visit Diagnoses Not on filedocumented in this encounter Care Teams Caponizer Relationship Specialty Start Date End Date Marycarmen Quijano MD [address] [place] [address] PCP - General Family Medicine 03/02/23 06/20/23 documented as of this encounter
--- OUTSIDE RECORDS SUMMARY | 2025-01-11 10:29 | XMS_ITS | Clinical Summary ---
Author Organization [facility] 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 showed LCx 80% and ostial LAD [...] Visit [facility] [address] [address] Alycia Rios ARNP Stage 3b chronic kidney disease (HCC) (Primary Dx); Persistent proteinuria; Renal osteodystrophy; Hypertensive renal disease; Vitamin D deficiency, not otherwise specified from Last 3 Months Immunizations Immunization Administration Dates Next Due Hepatitis B 04/08/2017, [...] Visit [facility] [address] [place] [address] Dominick Reece MD [address] [facility] [address] [place] [id number] Health Maintenance Due Date Last Done Comments Diabetes: Ophthalmology Exam 11/04/2020 Diabetes: Pedal Pulse Checked 11/04/2020 Diabetes: Sensory Foot Exam 11/04/2020 Diabetes: Visual Foot Exam 11/04/2020 Diabetes: Hemoglobin A1C 12/17/2020 09/18/2020 Influenza Vaccine (Season Ended) 2025 07/20/2022, 07/20/2022, 06/05/2020, Additional history exists Pneumococcal Vaccine: 50+ Years Completed 06/03/2016, 06/03/2016, 07/15/2015, Additional history exists Hepatitis B Vaccine Aged Out 04/08/2017, 04/08/2017, 06/03/2016, Additional history exists No longer eligible based on patient's age to complete this topic Procedures Procedure Name Priority Date/Time Associated Diagnosis Comments BLOOD PANEL (HC) Routine 09/18/2020 12:0 0 AM EST from Last 3 Months or Most Recently Relevant to Health Maintenance Results * (ABNORMAL) Blood Panel (09/18/2020 12:00 AM EST) Carbon Dioxide (CO2) 25 22 - 30 mmol/L [facility] BUN 25(H) 9 - 20 mg/dl [facility] Triglycerides 81 <150 mg/dl [facility] Sodium 139 137 - 145 mmol/L [facility] Cholesterol 157 <200 mg/dl [facility] HDL 51 >40 mg/dl [facility] LDL,Direct 90 <130 mg/dl [facility] Hemoglobin A1C 8.5(H) <5 % [facility] Comments From [facility] Creatinine 1.35(H) 0.70 - 1.30 mg/dl [facility] Potassium 4.5 3.5 - 5.1 mmol/L [facility] Calcium 8.8 8.4 - 10.2 mg/dl [facility] eGFR Non- 38(L) >60 ml/min [facility] 09/18/2020 us [facility] [id number] LICITED RESULTS Final Result [facility] from Last 3 Months or Most Recently Relevant to Health Maintenance Insurance [facility] ([id number]) [facility] ([id number]) Care Teams Transit Man Relationship Specialty Start Date End Date Marycarmen Quijano MD [address] [place] [address] PCP - General 10/14/20
--- OUTSIDE RECORDS SUMMARY | 2025-01-11 10:29 | XMS_ITS | Patient Health Record ---
Author Organization [facility] Address [address] [place] [address] Care Team Providers Care Space And Missile Operations Name Role Phone Jaime VORA, Shelby Primary Care Provider Unavail able Randy Lael Unavailable [phone] Allergies Allergen (clinical drug ingredient) Drug/Non Drug [...] Performing Lab: Notes/Report: HEMOGLOBIN A1C (HH) 8.6 HEMOGLOBIN A1C (GLYCOHEMOGLO BIN) Reviewed date:12/26/2024 12:28:33 PM Interpretation: Performing Lab: Notes/Report: HEMOGLOBIN A1C % (HH) 8.4 Reason For Referral No Information Medications Medication SIG (Take, Route, Frequency, Duration) Notes Start Date End Date Status Calcium Active Iron Active Torsemide 20 MG as directed Orally Active Vitamin D3 25 MCG (1000 UT) 1 capsule Orally Once a day Active Losartan Potassium 25 MG 1 tablet Orally Once a day Active Folic Acid Active Gabapentin 25 MG as directed Orally Active Toujeo SoloStar 300 UNIT/ML as directed Subcutaneous Act wendie Aspirin 81 MG 1 tablet Orally Once a day Active Atorvastatin Calcium 80 MG 1 tablet Orally Once a day Active Mounjaro Active NovoLOG 100 UNIT/ML as directed Injection Active amLODIPine Besylate Active Extra Depth Orthopedic Shoes (1 Pair) with Customized Heat Molded Multidensity Innersoles (3 Pair) as directed Dx: NIDDM/Polyneuropathy (E11.42), Hammertoe Foot Deformity (M20.41,M20.42), Preulcerative Skin Lesion(s) (L85.1 Active Social History Tobacco Use: Social History Observation Description Date Details (start date - stop date) Never Smoker NA - NA Tobacco use other than smoking: Question Answer Notes Are you an other tobacco user? No Tobacco Control (Standard) Question Answer Notes Tobacco use: Nonsmoker Additional Findings: Tobacco non-user Current no nsmoker AUDIT-C (Standard) Question Answer Notes Did you have a drink containing alcohol in the p ast year? No Points 0 Interpretation Negative Problems Problem Type SNOMED Code ICD Code Onset Dates Problem Status W/U Status Risk Notes Problem Acquired hammer toe of right foot (5744170854634529 ) Other hammer toe(s) (acquired), right foot (M20.41) Active confirmed Problem Acquired hammer toe of left foot (0024898999727099 ) Other hammer toe(s) (acquired), left foot (M20.42) Active confirmed Problem Polyneuropathy due to type 2 diabetes mellitus (752590547) Type 2 diabetes mellitus with diabetic polyneuropathy (E11.42) Active confirmed Vital Signs Blood pressure diastolic 70 mm Hg 12/26/2024 Height 4 ft 9 in in 12/26/2024 Blood pressure systolic 120 mm Hg 12/26/2024 Weight 192 lbs 12/26/2024 BMI 41.54 kg/m2 12/26/2024 Procedures Procedure Date Ordered Date Performed Result Body Sit e 51696-VHHWTNU NAIL, 6 OR MORE 03/17/2024 N/A 86542-TYWS SKIN LESIONS, 2 TO 4 03/17/2024 N/A 55275-TSCIIZK NAIL, 6 OR MORE 06/16/2024 N/A 70967-SYXG SKIN LESIONS, 2 TO 4 06/16/2024 N/A 25879-DNUZSFH NAIL, 6 OR MORE 12/26/2024 N/A 67829-Yyszhwql Plate 12/26/2024 N/A 67086-CWHY SKIN LESIONS, 2 TO 4 12/26/2024 N/A Encounters Encounter Location Date Provider Diagnosis [address] [address] 03/17/2024 Randyalycia Leal Type 2 diabetes mellitus with diabetic polyneuropathy E11.42 ; Tinea unguium B35.1 ; Other hammer toe(s) (acquired), right foot M20.41 and Other hammer toe(s) (acquired), left foot M20.[address] [address] 06/16/2024 Randy Leal Type 2 diabetes mellitus with diabetic polyneuropathy E11.42 and Tinea unguium B35.[address] [address] 12/26/2024 Randy Leal Type 2 diabetes mellitus with diabetic polyneuropathy E11.42 ; Tinea unguium B35.1 ; Other hammer toe(s) (acquired), right foot M20.41 ; Other hammer toe(s) (acquired), left foot M20.42 and Subungual hematoma of left foot, initial encounter S90.222A [address] [address] 09/19/2024 Randy Leal [address] [address] 12/26/2024 Randy Leal Assessments Encounter Date Diagnosis (ICD Code) Assessment Notes Treatment Notes Treatment Clinical Notes Section Notes 03/17/2024 Type 2 diabetes mellitus with diabetic polyneuropathy (ICD-10 - E11.42) 03/17/2024 Tinea unguium (ICD-10 - B35.1) 06/16/2024 Type 2 diabetes mellitus with diabetic polyneuropathy (ICD-10 - E11.42) 06/16/2024 Tinea unguium (ICD-10 - B35.1) 12/26/2024 Type 2 diabetes mellitus with diabetic polyneuropathy (ICD-10 - E11.42) 12/26/2024 Tinea unguium (ICD-10 - B35.1) 03/17/2024 Other hammer toe(s) (acquired), right foot (ICD-10 - M20.41) Patient Educated with: DIABETIC FOOT CARE INSTRUCTIONS. pdf (DIABETIC FOOT CARE INSTRUCTIONS. pdf) 12/26/2024 Other hammer toe(s) (acquired), right foot (ICD-10 - M20.41) Patient Educated with: DIABETIC FOOT CARE INSTRUCTIONS. pdf (DIABETIC FOOT CARE INSTRUCTIONS. pdf) 12/26/2024 Other hammer toe(s) (acquired), left foot (ICD-10 - M20.42) 03/17/2024 Other hammer toe(s) (acquired), left foot (ICD-10 - M20.42) 12/26/2024 Subungual hematoma of left foot, initial encounter (ICD-10 - S90.222A) Plan Of Treatment Pending Test Test Name Order Date 14219-NJJWNHN NAIL, 6 OR MORE 03/17/2024 30363-IVIANZT NAIL, 6 OR MORE 06/16/2024 47893-SNWZACR NAIL, 6 OR MORE 12/26/2024 22706-Rvnasamc Plate 12/26/2024 08619-NSIR SKIN LESIONS, 2 TO 4 12/27/19 05225-DZYR SKIN LESIONS, 2 TO 4 06/16/20 46868-IHBL SKIN LESIONS, 2 TO 4 03/17/20 Next Appt Details Provider Name:Randy Leal , 03/27/2025 09:30:00 AM, [address] [place] [address], [phone], Insurance Providers Payer Name Payer Address Payer Phone Subscriber Number Group Number Insured Name Patient Relationship to Insured Coverage Start Date Coverage End Date [facility] [employer] Claims [address] [place] [id number] Katherine Jamil Self - patient is the insured Medical (General) History Medical History History ICD Code Anxiety Arthritis asthma Back,Hip,and Knee pain CAD (Cholesterol) Cataracts Depression Diabetic Heart disease High blood pressure Kidney disease Lung disease Numbness Poor circulation Reflux ( GERD) sinusitis Vascular phlebitis (clots) Chicken pox Replacement Heart Valves Transfusions Surgical History Surgery Date(Month/Year)
--- OUTSIDE RECORDS SUMMARY | 2025-01-11 10:29 | XMS_ITS ---
Author Organization [facility] Address [address] [place] [address] Care Team Providers Care Frame Tender Name Role Phone Jaime VORA, Shelby Primary Care Provider Unavail able Randy Leal Unavailable [phone] REASON FOR VISIT buy Small Plantar Fasc Sleeve Encounters Encounter Location Date Provider Diagnosis [facility] [address] [place] [address] 12/26/2024 Randy Leal Plan Of Treatment Next Appt Details Provider Name:Randy Leal , 03/27/2025 09:30:00 AM, [address] [place], [address], Progress Notes * Katherine DIASDOB: (79 yo F)Acc No.[id number]:12/26/2024 Patient:?ARUNKatherine :1945???Age:79 Y???Sex:Female Address:[address] [place], [address] * true * Date:? Generated for Cotyi emmie/Rolando/eTransmitting on:?01/11/2025 10:28 AM EDT
--- OUTSIDE RECORDS SUMMARY | 2025-01-11 10:29 | XMS_ITS | Data Portability ---
Author Organization [employer] [facility] [place] [facility] Address [address] [place] [phone] Care Team Providers Care Speech Therapist Name Role Phone HIM CCA OTHER Assessment Encounter Date Assessment Date Assessment LastModified by Organization Details LastModified Time 04/08/2023 04/08/2023 77 YOF with CHF, COPD recent hospitalization being seen for report of low 02 sat at home in the 80s, On central office technician exam sat 91% on 2L pt in [...] follow up w pcp in 1 week [email or web address] Not available 09/18/2024 20:08:58 Plan of Treatment Reminders Order Date Submit Date Provider Last Modified By Organization Details Last Modified Time Details Appointments None recorded. Lab rapid SARS CoV 2 Ag, QL IA, respiratory specimen 2023 024 [facility], [address] [place] [address], [id number] 4 09:06:35 rapid flu (A+B) 2023 024 [facility], [address] [place] [address], [phone] 4 09:06:54 CBC w/ auto diff 2021 022 [email or web address] [facility] (Centralized Electronic Ordering - All Locations), Patient Can Go To The Location Of Their Choice, [id number] 2 00:05:50 CMP, serum or plasma 052021 kemal [facility] (Centralized Electronic Ordering - All Locations), Patient Can Go To The Location Of Their Choice, [address] 19:37:00 unlisted lab - urinalysis w/reflex culture 2021 [place] [facility] (Centralized Electronic Ordering - All Locations), Patient Can Go To The Location Of Their Choice, [address] 01:53:39 cmp, whole blood + gloria [address] [facility] [place], [place] [address], [address] [place] [address], [id number] 16:24:03 urinalysis, dipstick [address] [facility] [place] [address], [address] [place] [address], [phone] 16:24:43 Referral None recorded. Procedures None recorded. Surgeries None recorded. Imaging None recorded. Medication Orders prednisone 10 mg tablet 2023 [facility], [address] [place] [address], [id number], 12:30:23 azithromyci n 250 mg tablet 2023 024 [facility], [address] [place] [address], [id number], 4 12:30:23 azithromyci n 250 mg tablet 2023 024 [email or web address] [facility], [address] [place] [address], [id number], 4 20:08:15 prednisone 20 mg tablet [email or web address] [facility], [address] [place] [address], [id number], 4 20:08:15 ipratropium 0.5 mg-albutero l 3 mg (2.5 mg base)/3 mL nebulizatio n soln 2023 024 [email or web address] [facility], [address] [place] [address], [id number], 20:08:15 Patient TargetsNo targets recorded. Patient InstructionsNo [...] 00:05:50 02/17/2002/17/2022 COMPL ETE CBC WITH DIFF MCHC 29.6 [...] 00:05:50 02/17/2002/17/2022 COMPL ETE CBC WITH DIFF neut # [...] 00:05:50 02/17/2002/17/2022 COMPL ETE CBC WITH DIFF mono# 1.3 K/mm3 (0.4-0 .9) high Not Available [facility] (Centralized Electronic Ordering - All Locations) Patient Can Go To The Location Of Their Choice, 02/17/2022 00:05:50 02/17/2002/17/2022 COMPL ETE CBC WITH DIFF eo # 0.2 K/mm3 (0.0-0 .4) Not Available [facility] (Centralized Electronic Ordering - All Locations) Patient Can Go To The Location Of Their Choice, 02/17/2022 00:05:50 02/17/2002/17/2022 COMPL ETE CBC WITH DIFF baso # 0.1 K/mm3 (0.0-0 .1) Not Available [facility] (Centralized Electronic Ordering - All Locations) Patient Can Go To The Location Of Their Choice, 02/17/2022 00:05:50 02/17/2002/17/2022 COMPL ETE CBC WITH DIFF abs. imm [...] Go To The Location Of Their Choice, [facility] 02/17/2022 01:53:39 02/17/20 22 02/17/2022 UA W/REF REGAN CULTU RE culture indication CULTUR E NOT INDICA NATALIE Not Available [facility] (Centralized Electronic Ordering - All Locations) Patient Can Go To The Location Of Their Choice, [facility] 02/17/2022 01:53:39 02/17/20 22 02/16/2022 urina lysis , dipst ick Leukocytes neg Not Available Main - [facility] [address] [place] [address], [phone] 02/16/2022 16:23:39 02/17/20 22 02/16/2022 urina lysis , dipst ick Nitrite negati ve Not Available Main - [facility] [address] [place] [address], [phone] 02/16/2022 16:23:39 02/17/20 22 02/16/2022 urina lysis , dipst ick Protein 4+ Not Available Main - [facility] [address], [address] 02/16/2022 16:23:39 02/17/20 22 02/16/2022 urina lysis , dipst ick Ketone 2+ Not Available Main - [facility] [address], [address] 02/16/2022 16:23:39 02/17/20 22 02/16/2022 urina lysis , dipst ick Glucose negati ve Not Available Main - [facility] [address] [place] [address], [phone] 02/16/2022 16:23:39 02/17/20 22 02/16/2022 cmp, whole blood + picco lo ALB 2.8 Not Available Main - [facility] [address], [address] 02/16/2022 16:22:48 02/17/20 22 02/16/2022 cmp, whole blood + picco lo ALP 114 Not Available Main - [facility] [address], [address] 02/16/2022 16:22:48 02/17/20 22 02/16/2022 cmp, whole blood + picco lo ALT 12 Not Available Main - [facility] [address], [address] 02/16/2022 16:22:48 02/17/20 22 02/16/2022 cmp, whole blood + picco lo AST 18 Not Available Main - [facility] [address], [address] 02/16/2022 16:22:48 02/17/20 22 02/16/2022 cmp, whole blood + picco lo BUN 17 Not Available Main - [facility] [address], [address] 02/16/2022 16:22:48 02/17/20 22 02/16/2022 cmp, whole blood + picco lo Ca 9.8 Not Available Main - [facility] [address], [address] 02/16/2022 16:22:48 02/17/20 22 02/16/2022 cmp, whole blood + picco lo CI- normal Not Available Main - [facility] [address], [address] 02/16/2022 16:22:48 02/17/20 22 02/16/2022 cmp, whole blood + picco lo CRE 1.3 Not Available Main - [facility] [address], [address] 02/16/2022 16:22:48 02/17/20 22 02/16/2022 cmp, whole blood + picco lo GLU 326 Not Available Main - [facility] [address], [address] 02/16/2022 16:22:48 02/17/20 22 02/16/2022 cmp, whole blood + picco lo K+ 3.8 Not Available Main - [facility] [address], [address] 02/16/2022 16:22:48 02/17/20 22 02/16/2022 cmp, whole blood + picco lo Na+ 138 Not Available Main - Ins [address], [address] 02/16/2022 16:22:48 02/17/20 22 02/16/2022 cmp, whole blood + picco lo tCO2 27 Not Available Main - [facility] [address], [address] 02/16/2022 16:22:48 Result Notes None recorded. Medical Equipment None Reported. Allergies Allergen ID Allergen Name Allergen Category Reaction Reaction Severity Criticality Documentation Date Start Date Code Code System Note Provider Name and Address Organization Details Recorded Time 50666 Motrin medicatio n Not available Not available Not available 09/18/202433651 8 RxNorm Not Available [facility] - production 4 15:17:42 15413 acetamino phen / oxycodone medicatio n Not available Not available Not available 09/18/2024 08584 3 RxNorm Not Available [facility] - production 4 15:17:42 61711 tramadol medicatio n Not available Not available Not available 09/18/2024 35573 RxNorm Not Available [facility] - production 4 [...] Available UltiCare Pen Needle 32 gauge x 32 USE FIVE TIMES DAILY active Not Available [...] Not Available Not Available No t Available Ele GaleKianjeremiah U-300 Insulin 300 unit/mL (1.5 mL) subcutaneous [...] Not Available No t Available Dexcom G7 Mucker Operator USE DIRECTED active Not Available Not Available [...] L/min 146 mm[Hg] 65 mm[Hg] Not Available [facility] 3 16:22:45 Date Recorded Heart rate Oxygen saturation Oxygen saturation in Arterial blood by Pulse oximetry Body temperature Respiratory rate Systolic blood pressure Diastolic blood pressure Provider Name and Address Organization Details Last Updated DateTime 4 78 /min 93 % 93 % 97.1 [degF] 16 /min 137 mm[Hg] 76 mm[Hg] Not Available [facility] 4 20:04:27 Date Recorded Oxygen saturation Oxygen [...] cm 99 % 99 % 98.9 [degF] 53944.2 4 g 20 /min 164 mm[Hg] 63 mm[Hg] 164 mm[Hg] 63 mm[Hg] Not Available [facility] - production 2 14:54:34 Social History None recorded. Functional [...] 1594 Hanane Mena MD Main - [address] [phone] 02/16/2022 14:13:00 05/29/2022 14:46:24 Acute low back pain 419149273 M54.50 Pt p/w 5 days of atraumatic [...] no improvemen t in pain consider imagingPer central office technician, requestor asked for CBC w/ diff and CMP (not acknowledg ed in [facility] portal) but no orders placed. Reasonable to check CBC w/ diff and CMP thus orders placed. Ketonuria [id number] R82. 4 Pt with 2+ urinary ketones [...] and call PCP if FSG > 350. [id number] Damien Alfredo MD Main - [facility] [address] [place] [phone] 04/08/2023 16:22:43 04/08/2023 23:08:09 Hypoxia 554047470 R09.02 [id number] Wander Smith MD Main - [facility] [address] [place] [phone] 09/18/2024 20:04:23 09/18/2024 21:06:53 Acute exacerbation of chronic obstructive pulmonary disease 762426982 J44.1 Health Concerns Section Related Observation LastModified by Organization Detai ls LastModified Time None Recorded Concern Status LastModified by Organization Details LastModified Time None Recorded Advance Directives Directive None Recorded Payers Encounter Date Sequence Insurance Name Policy Number Policy Rendon Covered Member ID Rendon Member ID Guarantor Name 02/16/2022 1 [facility] - DOS PRIOR TO 2023 - DUAL ELIGIBLE (MEDICARE REPLACEMENT/AD VANTAGE - HMO) Katherine Griffith [id number] Katherine Griffith 04/08/2023 1 [facility] - DOS ON OR AFTER 2023 - DUAL ELIGIBLE - NURSING HOME OPTIONS AND ONE CARE (MEDICARE REPLACEMENT/AD VANTAGE - HMO) Katherine Griffith [id number] Katherine Griffith 09/18/2024 1 [facility] - DOS ON OR AFTER 2023 - DUAL ELIGIBLE - NURSING HOME OPTIONS AND ONE CARE (MEDICARE REPLACEMENT/AD VANTAGE - HMO) Katherine Griffith [id number] Katherine Griffith Notes Date Note Type Note [...] .................... .................... .................... .................... .................... .................... . Scooping Machine Tender Note: Patient is a 76 year old [...] seen by urologist last month according to urgent care physician, kidney function was good. Urine sample obtained and dipped; changes in PRO, SG and KET detected. Urine sent to [facility] for UA and Culture. Vital signs obtained and all within normal limits. Red flags discussed. Consulted with Dr. Mena. Patient is to follow up with PCP/care team regarding her signs, symptoms and todays visit. Dr. Mena recommended blood work. Scooping Machine Tender Sara Davis was dispatched for procedure. See central office technician Sara Davis run report for further patient [...] which suggests h Hanane Mena MD [address] [facility], [place], [phone], [employer] 02/16/2022 16:24:46 04/08/2023 text/html CRC Nursing Assessment: [...] on behalf of member with request for VTH for eval increased SOB and decreased oxygen levels. Daughter states member talking in full sentences with no acute distress. Daughter could not provide further information. Discuss if symptoms progress to seek emergent care.-verbalize understanding. Verify member name/- Damien Alfredo MD [address] [facility], [place], [phone], [employer] 04/08/2023 16:28:34 09/18/2024 text/html CRC Nurse Triage [...] s/s and seek emergency treatment if needed. Scooping Machine Tender Organization Information for [employer] Legal Name: [facility] Address: [address] [place] [address], [place] [address], Aircraft Fueler: Louis Stockton MD IA No.: [id number] Scooping Machine Tender POC Test Results from [facility] Rapid COVID antigen (20:02:29) COVID: - Rapid influenza antigen (20:02:30) Flu: - Wander Smith MD [address] [facility],[address], [place], [address], [employer] 09/18/2024 21:05:29 OBGyn Episode No OBEpisode recorded.
--- OUTSIDE RECORDS SUMMARY | 2025-01-11 10:30 | XMS_ITS | Encounter Summary ---
Author Organization [employer] Address [address] [place] [address] [address] [place] [address] Care Team Providers Care Health Administrator Name Role Phone Unavailable Primary Care Provider Unavailabl e Reason for Visit * Reason Comments Dentures Pt had appoint for ce lei however, she did not take antibiotic one hour prior to dental appoint. Encounter Details Date Type Department Care Team ([facility] st Contact Info) Description 01/11/2025 9:00 AM EDT Office Visit [facility] [address] [place] [address] Johana Garcia [address] [place] [address] Heart valve replaced (Primary Dx) Social History Tobacco Use Types Packs/Day Years [...] AM EDT documented as of this encounter Progress Notes * Johana Salazare - 01/11/2025 9:00 AM EDT In Aprilt had a Heart valve replacement. PT Needs AB premedication. Pt did not take antibiotics due to she does not have the RX. Dr. Caldwell go give RX. Pt states that she will like to have the try-in for dentures today. However, Her CCA approval is . I spoke to Bea and she will be Re-sending the P/A to the insurance. Pt was given appoint for prophy ( scaling and fluoride for tomorrow at 9 am. WENDY Kearns documented in this encounter Miscellaneous Notes * Addendum Note - Connie Caldwell DDS - 01/11/2025 9:00 AM EDTAddended by: CONNIE CALDWELL on: 01/11/2025 09:17 AM Modules accepted: Orders documented in this encounter Plan of Treatment Upcoming Encounters Date Type Department Care Team (Late st Contact Info) Description 01/12/2025 9:00 AM EDT Office Visit [facility] [address] [place] [address] Johana Garcia [address] [place] [address] documented as of this encounter Procedures Procedure Name Priority Date/Time Associated Diagnosis Comments NO CHARGE VISIT Routine 01/11/2025 9:00 AM EDT documented in this encounter Visit Diagnoses Diagnosis Heart valve replaced- Primary Heart valve replaced by other means documented in this encounter
--- OUTSIDE RECORDS SUMMARY | 2025-01-11 10:30 | XMS_ITS | Encounter Summary ---
Author Organization [facility] Address [address] [place] [address] [address] [place] [address] Care Team Providers Care Intermediate Project Manager Name Role Phone Unavailable Primary Care Provider Unavailabl e Reason for Visit * Reason Comments Med Refill Encounter Details Date Type Department Care Team (Late st Contact Info) Description 12/01/2023 Refill [facility] [address] [place] [address] Christianne John MD [address] [place] [address] Moderate persistent asthma, unspecified whether complicated Social [...] Description 01/12/2025 9:00 AM EDT Office Visit [facility]ULT [facility] [address] [place] [address] Santos Garciaaris [address] [place] [address] documented as of this encounter Visit Diagnoses Diagnosis Moderate persistent asthma, unspecified whether complicated documented in this encounter
--- OUTSIDE RECORDS SUMMARY | 2025-01-11 10:30 | XMS_ITS | Clinical Summary ---
Author Organization [employer] Address [address] [place] [address] [address] [place] [address] Care Team Providers Care Dietary Director Name Role Phone Unavailable Primary Care Provider Unavailabl e Allergies Active Allergy Reactions Criticality Noted Date Comments Metformin 10/22/2015 Other reaction(s): Stomach Pain Ibuprofen Other 12/02/2022 Pt reports that Motrin increases her blood pressure. Oxycodone 01/28/2021 Oxycodone-Acetaminophen Hallucinations Medium 12/03/19 23 Sitagliptin 10/22/2015 Other reaction(s): Stomach Pain Medications amLODIPine (Norvasc) 10 MG tabletIndications :Primary hypertension Take 1 tablet by mouth every morning 30 tablet 5 09/21/20 22 Active Aspirin Low Dose 81 MG EC tablet Take 81 mg by mouth at bedtime. 09/23/20 22 Active Bisacodyl EC 5 MG EC tablet TAKE 2 TABLETS BY MOUTH EVERY DAY AT BEDTIME 08/10/20 22 Active Blood Glucose Monitoring Suppl (AppTweak.comyle Alkol Lite) w/Device kit TEST BLOOD SUGAR THREE TIMES DAILY 07/09/20 22 Active brimonidine (AlphaGAN P) 0.2 % ophthalmic solution INSTILL 1 DROP IN EACH EYE TWICE DAILY 08/31/20 22 Active carvedilol (Coreg) 25 MG tablet 10/21/19 23 Active cetirizine (ZyrTEC) 5 MG tablet 10/21/19 23 Active cilostazol (Pletal) 100 MG tablet TAKE 1 TABLET BY MOUTH TWICE DAILY IN THE MORNING AND AT BEDTIME 06/09/20 22 Active cyanocobalamin (Vitamin B-12) 1000 MCG tablet Take 1,000 mcg by mouth in the morning. 08/03/20 22 Active Jardiance 10 MG IVÁN 1 TABLETA POR LA BOCA CADA SUKHI EN LA MANANA 10/15/19 23 Active esomeprazole (NexIUM) [address] capsule 10/21/19 23 Active Trelegy Ellipta 200-62.5-25 MCG/ACT aerosol powder 10/21/19 23 Active fluticasone (Flonase) 50 MCG/ACT nasal spray 10/21/19 23 Active gabapentin (Neurontin) 300 MG capsule 10/21/19 23 Active FREESTYLE LITE test strip TEST BLOOD SUGAR THREE TIMES DAILY 06/09/20 22 Active NovoLOG FLEXPEN 100 UNIT/ML pen 10/21/19 23 Active Toujeo SoloStar 300 UNIT/ML injection 10/21/19 23 Active UltiGuard SafePack Pen Needle 32G X 4 MM misc 10/21/19 23 Active ipratropium (Atrovent) 0.03 % nasal spray USE 2 SPRAYS IN EACH NOSTRIL TWICE DAILY 04/20/20 22 Active latanoprost (Xalatan) 0.005 % ophthalmic solution 10/21/19 23 Active Tradjenta 5 MG tablet Take 5 mg by mouth in the morning. 09/01/20 22 Active metoprolol succinate XL (Toprol-XL) 100 MG 24 hr tablet Take by mouth at bed time. Active Creon 71012-14601 units capsule 10/21/19 23 Active pantoprazole (ProtoNix) 40 MG EC tablet Take 40 mg by mouth in the morning. 08/03/20 22 Active HM ClearLax 17 GM/SCOOP powder 10/21/19 23 Active senna (Senokot) 8.6 MG tablet Take 2 tablets by mouth at bedtime. 09/21/20 22 Active GAS RELIEF 125 MG capsule TAKE 1 TABLET BY MOUTH EVERY 8 HOURS NEEDED FOR PAIN FOR GAS 07/22/20 22 Active sucralfate (Carafate) 1 g tablet TAKE 2 TABLETS BY MOUTH ONCE DAILY 09/23/20 22 Active torsemide (Demadex) 20 MG tabletIndications :Primary hypertension Take 1 tablet by mouth twice daily 180 tablet 3 10/21/19 23 Active hydrALAZINE (Apresoline) 25 MG tabletIndications :Primary hypertension Take 1 tablet by mouth twice daily 180 tablet 3 10/21/19 23 Active atorvastatin (Lipitor) 40 MG tabletIndications :Type 2 diabetes mellitus with hyperlipidemia (CMS/HCC) (CMS/HCC) TAKE 1 TABLET BY MOUTH AT BEDTIME 30 tablet 11 12/09/19 23 Active folic acid (Folvite) 1 MG tabletIndications :Vitamin deficiency TAKE 1 TABLET BY MOUTH EVERY MORNING 90 tablet 3 12/15/19 23 Active montelukast (Singulair) 10 MG tabletIndications :Moderate persistent asthma, unspecified whether complicated TAKE 1 TABLET BY MOUTH EVERY EVENING 90 tablet 3 12/15/19 23 Active ergocalciferol (Vitamin D2) 1.25 MG (69701 UT) capsule TAKE 1 CAPSULE BY MOUTH ONCE WEEKLY ON Wednesday 12 capsule 1 02/04/20 23 Active budesonide-formot brian (Symbicort) 160-4.5 MCG/ACT inhaler Inhale 2 puffs 2 times daily. Active calcium acetate (Phoslo) 667 MG capsule Take 1 capsule by mouth 2 times daily. 09/19/20 24 Active D3-1000 25 MCG (1000 UT) capsule Take 25 mcg by mouth in the morning. 07/14/20 24 Active clopidogrel (Plavix) 75 MG tablet Take 75 mg by mouth in the morning. 09/13/20 24 Active Ferrous Sulfate (iron) 325 (65 Fe) MG tablet TAKE 1 TABLET BY MOUTH ONCE WEEKLY ON Wednesday08/14/20 24 Active furosemide (Lasix) 40 MG tablet Take 40 mg by mouth Once per day. 02/26/20 21 Active losartan (Cozaar) 50 MG tablet Take 50 mg by mouth in the morning. 07/14/20 24 Active omeprazole (PriLOSEC) [address] capsule Take 1 capsule by mouth Once per day. Active predniSONE (Deltasone) 10 MG tablet Take 10 mg by mouth Once per day. 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 [...] Encounters Date Type Department Care Team Description 01/11/2025 9:00 AM EDT Office Visit [facility] ADULT DENTAL [address] [place] [address] RadhaJohana Heart valve replaced (Primary Dx) 12/04/2024 9:00 AM EST Office Visit [facility]ULT [facility] [address] [place] [address] Moy Caldwell DDS Partial edentulism, unspecified edentulism class (Primary Dx) 11/03/2024 11:00 AM EST Office Visit [facility]ULT [facility] [address] [place] [address] Moy Caldwell DDS Partially edentulous maxilla, unspecified edentulism class (Primary Dx); Partially edentulous mandible, unspecified edentulism class from Last 3 Months Immunizations Name Administration [...] Sign Reading Time Taken Comments Blood Pressure 150/58 12/04/2024 9:30 AM EST Pulse 68 12/02/2022 1:53 PM [...] Description 01/12/2025 9:00 AM EDT Office Visit [facility] ADULT D[facility] [address] [place] [address] Radha, Johana [address] [place] [address] Health Maintenance Due Date Last Done Comments [...] 11/27/2023 11/27/2013, 06/08/1997, 06/08/1997 COVID-19 Vaccine ( season) 2024 Dental Oral Exam 12/18/2024 06/19/2024, 12/02/2022 Dental Prophylaxis 01/06/2025 07/07/2024, 12/02/2022 Dental X-Ray: Bitewings 06/20/2025 06/19/2024 Tobacco Screening 12/04/2025 12/04/2024 Dental X-Ray: Full Mouth 06/20/2027 06/19/2024, 04/03 Hepatitis B Vaccines Completed 04/08/2017, 06/03/2016, 04/03/2014 Pneumococcal Vaccine: 50+ Years Completed 08/29/2024, 06/03/2016, 07/15/2015, Additional history exists Influenza Vaccine Completed 11/14/2024, , 06/05/2020, Additional history exists HIB Vaccines Aged Out [...] CHARGE VISIT Routine 01/11/2025 9:00 AM EDT WAX TRY IN Routine 12/04/2024 9:00 AM EST BITE REGISTRATION Routine 11/03/2024 11: 00 AM EST PROPHYLAXIS - ADULT Routine 07/07/2024 9 :00 AM EDT Dental calculus INTRAORAL - COMPLETE SERIES OF RADIOGRAPHIC IMAGES Routine 06/19/2024 10:00 AM EDT PERIODIC ORAL EVALUATION - ESTABLISHED PATIENT Routine 06/19/2024 10:00 AM EDT CLAIRE HISTORICAL HEMOGLOBIN A1C Routine 07/09/2022 10:40 AM EDT ZSARIAH HISTORICAL LIPID PANEL Routine 09/18/2020 1:18 PM EST from Last 3 Months or Most Recently Relevant to Health Maintenance Results * HEMOGLOBIN A1C (07/09/2022 10:40 AM EDT) Estimated Average Glucose 151 mg/dL [facility] Comment: eAG = Estimated average glucose which is %A1C expressed as average glucose, using the formula of the H8H-Ngnhadr Average Glucose study (ADAG), Diabetes Care, Vol.31,#8, [...] than 239 mg/dL HDL Cholesterol 51 mg/dL [facility] Comment: Desirable HDL: ??greater than 40 mg/dL ?? Note: This HDL assay may give artificially ? low results in patients with liver disease. LDL Cholesterol Calculated 90 mg/dl [facility] Comment: Desirable LDL: ? less than 100 mg/dL Near Optimal/Above Optimal LDL: ??110-129 mg/dL Borderline High LDL: ? 130-159 mg/dL High LDL: ?160-189 mg/dL Very High LDL: ? greater than or equal to ?190 mg/dL Triglycerides 81 mg/dL [facility] Comment: Desirable Triglyceride: ? less [...] 38 [facility] Comment: NOTE: ??For -Dominican individuals, multiply the result ?by 1.210. ?? [...] Final Result [facility] [address] [place] [address], from Last 3 Months or Most Recently Relevant to Health Maintenance Insurance [facility]
--- OUTSIDE RECORDS SUMMARY | 2025-01-11 10:30 | XMS_ITS | Encounter Summary ---
Author Organization [employer] [facility] Address [address] [place] [address] [address] [place] [address] Care Team Providers Care Ditch Tender Name Role Phone Marycarmen Quijano MD Primary Care Provider [phone] Reason for Visit * Reason Comments Med Refill Encounter Details Date Type Department Care Team ([facility] Contact Info) Description 04/15/2023 Refill [facility] [address] [place] [address] Marycarmen Quijano MD [address] [place] [address] Social History Tobacco Use Types Packs/Day Years [...] ([facility] Contact Info) Description 01/12/2025 9:00 AM EDT Office Visit [facility] ADULT D[facility]AL [address] [place] [address] Johana Garcia [address] [place] [address] documented as of this encounter Visit Diagnoses Not on filedocumented in this encounter Care Teams Ditch Tender Relationship Specialty Start Date End Date Marycarmen Quijano MD [address] [place] [address] PCP - General Family Medicine 03/02/23 06/20/23 documented as of this encounter
--- OUTSIDE RECORDS SUMMARY | 2025-01-11 10:30 | XMS_ITS | Encounter Summary ---
Author Organization [employer] [facility] Address [address] [place] [address] 7[address] [place] [address] Care Team Providers Care Administrative Services Manager Name Role Phone Unavailable Primary Care Provider Unavailabl e Reason for Visit * Reason Comments Med Refill Encounter Details Date Type Department Care Team (Late st Contact Info) Description 12/02/2023 Refill [facility] MEDICINE [address] [place] [address] Christianne John MD [address] [place] [address] Moderate persistent asthma, unspecified whether complicated Social [...] 9:00 AM EDT Office Visit [facility] ADULT DENTAL [address] [place] [address] Santso Garciaaris [address] [place] [address] documented as of this encounter Visit Diagnoses Diagnosis Moderate persistent asthma, unspecified whether complicated documented in this encounter
--- OUTSIDE RECORDS SUMMARY | 2025-01-11 10:30 | XMS_ITS | Encounter Summary ---
Author Organization [facility] [facility] Address [address] [place] [address] 7[address] [place] [address] Care Team Providers Care Flight Crew Scheduler Name Role Phone Unavailable Primary Care Provider Unavailabl e Reason for Visit * Reason Comments Med Refill Encounter Details Date Type Department Care Team (Late st Contact Info) Description 11/29/2023 Refill [facility] MED[facility]INE [address] [place] [address] Christianne John MD [address] [place] [address] Moderate persistent asthma, unspecified whether complicated Social [...] Description 01/12/2025 9:00 AM EDT Office Visit [facility] ADULT DENTAL [address] [place] [address] Santos Garciaaris [address] [place] [address] documented as of this encounter Visit Diagnoses Diagnosis Moderate persistent asthma, unspecified whether complicated documented in this encounter
--- OUTSIDE RECORDS SUMMARY | 2025-01-11 10:30 | XMS_ITS | Encounter Summary ---
Author Organization [employer] [facility] Address [address] [place] [address] [address] [place] [address] Care Team Providers Care Home School Liaison Officer Name Role Phone Unavailable Primary Care Provider Unavailabl e Reason for Visit * Reason Comments Med Refill Encounter Details Date Type Department Care Team (Late st Contact Info) Description 11/24/2023 Refill [facility] MED[facility] [address] [place] [address] Christianne John MD [address] [place] [address] Moderate persistent asthma, unspecified whether complicated Social [...] 9:00 AM EDT Office Visit [facility] ADULT DENTAL [address] [place] [address] Santos Garciaaris [address] [place] [address] documented as of this encounter Visit Diagnoses Diagnosis Moderate persistent asthma, unspecified whether complicated documented in this encounter
--- OUTSIDE RECORDS SUMMARY | 2025-01-11 10:30 | XMS_ITS | Encounter Summary ---
Author Organization [employer] [facility] Address [address] [place] [address] [address] [place] [address] Care Team Providers Care Link Trainer Name Role Phone Marycarmen Quijano MD Primary Care Provider [phone] Marycarmen Quijano MD Primary Care Provider [phone] Encounter Details Date Type Department Care Team (Latest Contact Info) Description 06/16/2021 Abstract [facility] CONVERSIONS Dental, Provider, DDS Social History [...] Description 01/12/2025 9:00 AM EDT Office Visit [facility] ADULT DENTAL [address] [place] [address] Radha, Johana [address] [place] [address] documented as of this encounter Visit Diagnoses Not on filedocumented in this encounter Care Teams Link Trainer Relationship Specialty Start Date End Date Marycarmen Quijano MD [address] [place] [address] PCP - General Family Medicine 07/26/13 02/01/23 Marycarmen Quijano MD [address] [place] [address] PCP - General Family Medicine 03/02/23 06/20/23 documented as of this encounter
--- OUTSIDE RECORDS SUMMARY | 2025-01-11 10:30 | XMS_ITS ---
Author Organization [facility] Address [address] [place] [address] Care Team Providers Care Commercial Coordinator Name Role Phone Jaime VORA, [place] Primary Care Provider Unavail able Randy Leal Unavailable [phone] Allergies Allergen (clinical drug ingredient) Drug/Non Drug Allergy documented on EMR Reaction Allergy Type Onset Date Status ibuprofen Advil Unknown Drug Allergy Active Aleve Unknown Drug Allergy Active Motrin Unknown Drug Allergy Active codeine Codeine Unknown Drug Allergy Active Morphine and Related Unknown Drug Allergy Active REASON FOR VISIT At Risk Footcare, Toe Irritation, Painful Toe/Nail(s) Medications Medication SIG (Take, Route, Frequency, Duration) Notes Start Date End Date Status Folic Acid Active Gabapentin 25 MG as directed Orally Active Aspirin 81 MG 1 tablet Orally Once a day Active Atorvastatin Calcium 80 MG 1 tablet Orally Once a day Active amLODIPine Besylate Active Calcium Active Iron Active Torsemide 20 MG as directed Orally Active Vitamin D3 25 MCG (1000 UT) 1 capsule Orally Once a day Active Losartan Potassium 25 MG 1 tablet Orally Once a day Active Extra Depth Orthopedic Shoes (1 Pair) with Customized Heat Molded Multidensity Innersoles (3 Pair) as directed Dx: NIDDM/Polyneuropathy (E11.42), Hammertoe Foot Deformity (M20.41,M20.42), Preulcerative Skin Lesion(s) (L85.1 Active Toujeo SoloStar 300 UNIT/ML as directed Subcutaneous Act wendie Mounjaro Active NovoLOG 100 UNIT/ML as directed Injection Active Social History Tobacco Use: Social History [...] ast year? No Points 0 Interpretation Negative Vital Signs Height 4 ft 9 in in 12/26/2024 Weight 192 lbs 12/26/2024 BMI 41.54 kg/m2 12/26/2024 Blood pressure systolic 120 mm Hg 12/27/19 Blood pressure diastolic 70 mm Hg 025 Procedures Procedure Date Ordered Date Performed Result Body Sit e 95682-OWOAZIR NAIL, 6 OR MORE 12/26/2024 N/A 33304-Lmaiwqxo Plate 12/26/2024 N/A 13896-XSLA SKIN LESIONS, 2 TO 4 12/26/2024 N/A Encounters Encounter Location Date Provider Diagnosis [facility] [place] [address] [place] [address] 12/26/2024 Randy Leal Type 2 diabetes mellitus with diabetic polyneuropathy E11.42 ; Tinea unguium B35.1 ; Other hammer toe(s) (acquired), right foot M20.41 ; Other hammer toe(s) (acquired), left foot M20.42 and Subungual hematoma of left foot, initial encounter S90.222A Assessments Encounter Date Diagnosis (ICD Code) Assessment Notes Treatment Notes Treatment Clinical Notes Section Notes 12/26/2024 Type 2 diabetes mellitus with diabetic polyneuropathy (ICD-10 - E11.42) 12/26/2024 Tinea unguium (ICD-10 - B35.1) 12/26/2024 Other hammer toe(s) (acquired), right foot (ICD-10 - M20.41) Patient Educated with: DIABETIC FOOT CARE INSTRUCTIONS. pdf (DIABETIC FOOT CARE INSTRUCTIONS. pdf) 12/26/2024 Other hammer toe(s) (acquired), left foot (ICD-10 - M20.42) 12/26/2024 Subungual hematoma of left foot, initial encounter (ICD-10 - S90.222A) Plan Of Treatment Medication Medication Name Sig Start Date Stop Date Notes Extra Depth Orthopedic Shoes (1 Pair) with Customized Heat Molded Multidensity Innersoles (3 Pair) as directed Dx: NIDDM/Polyneuropathy (E11.42), Hammertoe Foot Deformity (M20.41,M20.42), Preulcerative Skin Lesion(s) (L85.1 Treatment Notes Assessment Notes Other hammer toe(s) (acquired), right fo ot Patient Educated with: DIABETIC FOOT CARE INSTRUCTIONS.pdf (DIABETIC FOOT CARE INSTRUCTIONS.pdf) Pending Test Test Name Order Date 56074-DSNNCZI NAIL, 6 OR MORE 12/26/2024 95355-Yelbztxb Plate 12/26/2024 52843-TPKT SKIN LESIONS, 2 TO 4 12/27/19 Next Appt Details Follow Up: 3 Months, Reason: Provider Name:Randy Leal , 03/27/2025 09:30:00 AM, [address] [place] [address], [phone], Procedure Notes * Category Sub-Category Detail Notes Nail Avulsion Procedure TOTAL: A fine st erile elevator was placed between the eponychium, nail fold, and nail plate to separate the structures. The entire offending portion of nail was from the nail bed with a rolling action and then removed with a hemostat. No underlying bone was identified. There was minimal bleeding as hemostasis was achieved through the temporary use of either a digital tourniquet or the aforementioned local with epinephrine. A bacitracin sterile dressing was applied. Local wound aftercare instructions were discussed and dispensed. The patient was informed of both conservative and future surgical procedures to prevent recurrence (98668), DIABETES: Pt was advised as to the risk of delayed or nonhealing due to diabetes. Pt is to call the office with any questions, concerns, or complications Anesthesia was deferred - NEURO TEX: patient has medically documented neuropathic condition affecting sensation Location TA, Total nail Debride Nail 6-10 Nail debridement Due to the cl inical pathology outlined in the exam findings, performance of this nail treatment is medically necessary as its management by an unskilled/untrained nonprofessional would put this patients foot and overall health at risk. Therefore, debridement to affected nail(s), as described in exam ( TA, T1, T2, T3, T4, T5, T6, T7, T8, T9 ), was performed exclusively by the physician of record to reduce/remove overall nail length, girth, thickness, subungual debris, and necrotic tissue, by manual and/or electrical means through the use of a nail nipper and/or dremel-type sugar grinder, to a more viable healthy nail plate or bed tissue 6-10 nails in total. Silver nitrate was used for any petechial bleeding as necessary. Definitive antifungal treatment options, both pharmaceutical and surgical, have been reviewed and discussed with the patient. The patient solely prefers the use of intermittent/as needed professional debridement services for their nail condition and understands the need for additional periodic treatments to maintain effectiveness in symptomatic relief - 80120 Keratoma Treatment Parring or Cutting o f Benign Hyperkeratotic Lesion(s) (-56) 2-4 Lesions - Due to the at risk nature of the patients medical condition as documented in the exam findings, performance of this keratoderma treatment is medically necessary as its management by an unskilled/untrained nonprofessional would put this patients foot and overall health at risk. Therefore, the benign hyperkeratotic lesions, ( 4 ) in total, locations as stated and described in the exam ( SUB MTH (s) , 1 , B/L , Plantar, Heel(s) , B/L ), were pared, and/or cut utilizing a sterile 15 blade, tissue nippers, and/or power dremel instrumentation by the physician of record - 44330 Progress Notes * Katherine DIASDOB: [birth year] (79 yo F)Acc No.[id number]:12/26/2024 Progress Note Patient:Katherine UNDERWOOD Provider:?Randy Leal DPM :1945???Age:79 Y???Sex:Female D ate:12/26/2024 Address:[address] [place], [place] [id number] Pcp:Shelby Sandoval MD Subjective: * Chief Complaints: * ???At Risk FootcareToe Irrit ationPainful Toe/Nail(s) * HPI: ???At Risk footcare:?Pt States Last PCP Visit:?Date?10/13/2024 ???Toe pain:?Location:?B/L feet.?Duration:?several years.?Course:?worse.?Aggravated by:?shoes, any pressure.?Treatments:?change in shoes.?Painful Nails:?Duration:?States Possible Date Of Injury - 12/21/24 - dropped heavy object on toe.? * ROS:?General/Constitutional:?Nausea?denies.?Vomiting?denies.?Hunger Thirst?denies.?Loss appetite?denies.?Chills?denies.?Fatigue?denies.?Fever?denies.?Night Sweats?denies.?Unexplained weight loss?denies.?Unexplained weight gain?denies.?HEENTM:?Dentures?denies.?Dizziness?denies.?Glasses/contacts?admits.?Retinopathy?den ies.?Blurred/double vision?admits.?TMJ?denies.?Discharge/drainage?denies.?Implants?denies.?Sore throat?denies.?Dental implants?denies.?Hard of hearing ?denies.?Difficulty chewing/swallowing/speaking?denies.?Nose bleeds?denies.?Sore mouth?denies.?Respiratory:?On O xygen?denies.?Pneumonia/pleurisy?denies.?Bronchitis?denies.?Emphysema?denies.?Co ughing?denies.?Cough blood?denies.?Shortness of breath?admits.?Wheezing?denies.?Cardiovascular:?Pacemaker?denies.?MVP?denies.?WPW?denies.?CHF?denies.?Heart attack?admits.?Septal defect?denies.?Rapid beat?denies.?Chest pain ?denies.?Atrial Fib.?denies.?Murmur/Palpitations?denies.?Gastrointestinal:?Hemorrhoids?denies.?Stomach/Abdominal pain?admits.?Dark blood stool?denies.?Irritable bowel ?denies.?Constipation?denies.?Diarrhea?admits.?Hematology:?Swelling?denies.?Clots?denies.?Varicose Veins?denies.?Bruising?denies.?Bleeding problem?denies.?Genitourinary:?Blood urine?denies.?Frequent/Painfu/urination/bladder control?admits.?Kidney stones?denies.?Infection (UTI)?admits.?Nephropathy?denies.?sex trans dis (STD)?denies.?Prostate?denies.?Musculoskeletal:?Hammertoes?admits.?Bunions?denies.?Back Pain?admits.?Muscle Cramps/ Resting?admits.?Muscle cramps / walking?admits.?Generalized aches and pains?denies.?Weakness?admits.?Integ.:?Harrison?denies.?Scars?denies.?Corns/calluses?admits.?Ingrown nails?admits.?Painful nails?denies.?Open Sores?denies.?Rashes?denies.?Neurologic:?Difficulty sleeping?denies.?Brain disorder?denies.?Numbness?admits.?Balance t rouble?admits.?Confusion?denies.?Fainting/blackouts?denies.?Tingling?denies.?Bobby mors?denies.? * Medical History:? * Surgical History:?Denies Pas t Surgical History * Hospitalization/Major Diagno stic Procedure:?Denies Past Hospitalization * Family History:?Mother: dece ased, foot problems, kidney/liver disease, poor circulation, diagnosed with Diabetic - NIDDM, Unspecified essential hypertension, Unspecified heart disease, Unspecified cerebral artery occlusion with cerebral infarction, Family history of arthritis.?Father: .?Siblings: diagnosed with Other malignant neoplasm of unspecified site, Diabetic - NIDDM.? * Social History:?Tobacco Use:?Tobacco use other than smoking?Are you an other tobacco user??No ?Tobacco Control (Standard)?Tobacco use:?Nonsmoker ?Additional Findings: Tobacco non-user?Current nonsmoker ???Drugs/Alcohol:?Drugs?Have you used drugs other than those for medical reasons in the past 12 months??No ???Miscellaneous:?Caffeine: yes, frequency:. ?Children: yes, 9. ?Exercise: no. ?Marital status: . ?Occupation: Retired. ???Drug/Alcohol:?AUDIT-C (Standard)?Did you have a drink containing alcohol in the past year??No ?Points?0 ?Interpretation?Negative * Medications:?TakingToujeo So loStar 300 UNIT/ML Solution Pen-injector as directed Subcutaneous NovoLOG 100 UNIT/ML Solution as directed Injection Mounjaro Iron Calcium Vitamin D3 25 MCG (1000 UT) Capsule 1 capsule Orally Once a day Torsemide 20 MG Tablet as directed Orally Losartan Potassium 25 MG Tablet 1 tablet Orally Once a day Gabapentin 25 MG Tablet as directed Orally Folic Acid Atorvastatin Calcium 80 MG Tablet 1 tablet Orally Once a day Aspirin 81 MG Tablet Chewable 1 tablet Orally Once a day amLODIPine Besylate Extra Depth Orthopedic Shoes (1 Pair) with Customized Heat Molded Multidensity Innersoles (3 Pair) as directed Dx: NIDDM/Polyneuropathy (E11.42), Hammertoe Foot Deformity (M20.41,M20.42), Preulcerative Skin Lesion(s) (L85.1 Medication List reviewed and reconciled with the patientTaking Toujeo SoloStar 300 UNIT/ML Solution Pen-injector as directed Subcutaneous Taking NovoLOG 100 UNIT/ML Solution as directed Injection Taking Mounjaro Taking Iron Taking Calcium Taking Vitamin D3 25 MCG (1000 UT) Capsule 1 capsule Orally Once a day Taking Torsemide 20 MG Tablet as directed Orally Taking Losartan Potassium 25 MG Tablet 1 tablet Orally Once a day Taking Gabapentin 25 MG Tablet as directed Orally Taking Folic Acid Taking Atorvastatin Calcium 80 MG Tablet 1 tablet Orally Once a day Taking Aspirin 81 MG Tablet Chewable 1 tablet Orally Once a day Taking amLODIPine Besylate Taking Extra Depth Orthopedic Shoes (1 Pair) with Customized Heat Molded Multidensity Innersoles (3 Pair) as directed Dx: NIDDM/Polyneuropathy (E11.42), Hammertoe Foot Deformity (M20.41,M20.42), Preulcerative Skin Lesion(s) (L85.1 Medication List reviewed and reconciled with the patient * Allergies:?AdvilAleveMotrinM orphine and RelatedCodeineyes[Allergies Verified] Objective: * Vitals:?Ht: 4 ft 9 in, Wt:19 2, BMI: 41.54, Shoe size:5.5, BP:120/70mm Hg, BS:124, Ht-cm: 144.78 cm, Wt-k.09 kg. * ???Past Orders: ???Lab:HEMOGLOBIN A1C (GLYCO HEMOGLOBIN) (Order Date - 10/05/2024) (Collection Date & Time - 12/26/2024 12:28 PM) ? Value Reference Range ?HEMOGLOBIN A1C % (HH) 8.4 * Examination: ???Ophthalmology Referral: ?DIABETES EYE EXAM?Procedure Performed:?Yes ?Date of Exam Performed?10/19/2024 ?Diabetic Retinopathy Screening:?Yes ?Retinal Screening Performed:?Yes ?Findings of Diabetic Eye Exam:?no retinopathy?Neurological: ?SENSORY:? Neurological exam demonstrates, reduced light touch sensation, reduced sharp/dull pin prick discrimination , at Forefoot, B/L, 5.07 monofilament test performed at plantar aspects of 5 varied sites per foot shows sensation, reduced , at Forefoot, B/L.?Nails: ?NAILS are:?Elongated, overgrown, dystrophic, lytic, greater than 3mm thick, discolored and friable with crumbly malodorous subungual debris , TA, T1, T2, T3, T4, T5, T6, T7, T8, T9 , There is evidence of pain on palpation, and an area ofSUBUNGUAL HEMORRHAGICfluid with a pre-operative size measuring approximately ( 4-5 ) mm square, TA.?Dermatologic: ?SKIN FINDINGS:?Skin exam reveals Keratotic lesion(s) located at , SUB MTH (s) , 1 , B/L , Plantar, Heel(s) , B/L.?Orthopedic: ?MUSCLE STRENGTH:?5/5 all groups in a symmetrical fashion, B/L.?GAIT ABNORMALITY:?apropulsive , unstable/unsteady relating occasional difficulty with balance , cane-assisted.?FOOT MORPHOLOGY:?Pes Cavus structure , (-) Charcot collapse/destruction noted at MTJ.?DIGITAL DEFORMITIES:?Digital contracture, PIPJ, 2-5 B/L, incompl-reducible to push-up test, no over, nor underlapping, with evidence of shoe producing skin irritation.?FOOTWEAR:?worn, non-supportive, shoe gear properties exacerbate patient's foot/toe deformity.?Vascular: ?DP PULSES (B):?0/4 , LEFT , 1/4 , RIGHT.?PT PULSES (B):?0/4, B/L.?CAPILLARY FILL TIME:?delayed, all digits, B/L.?TROPHIC CONDITION-TEXTURE/ELASTICITY/TURGOR/HAIR GROWTH (B):?decreased, B/L.?TEMPERTURE GRADIENT (C):?decreased, cool to cool, proximal to distal, B/L.?PIGMENTATION:?mottled, B/L.?EDEMA (C):?absent, B/L.?CLAUDICATION (C):?admits , 0-15 min , B/L.?REST PAIN:?denies, B/L.?General Examination: ?GENERAL APPEARANCE:?Reveals a pleasant, alert, well nourished, well- developed, well hydrated individual, who demonstrates proper attention to hygiene/body habitus, and is in no acute distress , Pt accompanied by , Female , who serves as , Kiln Feeder/Research Environmental Scientist , and/who is physically present in exam room at time of visit.?ORIENTED:?person, place, and time.?FOOT EXAM:?Lower Extremity Neurological Exam performed:?Yes ?Visual exam of foot performed:?Yes ?Date?12/26/2024 ?Footwear Evaluation?Footwear Evaluation performed:?Yes??? Assessment: * Assessment: 1.?Type 2 diabetes mellitus with diabetic polyneuropathy - E11.42 (Primary)???2.?Tinea unguium - B35.1???3.?Other hammer toe(s) (acquired), right foot - M20.41???Specify :Chronic problem, Worse (4),Rx Management (4)???4.?Other hammer toe(s) (acquired), left foot - M20.42???Specify :Chronic problem, Worse (4),Rx Management (4)???5.?Subungual hematoma of left foot, initial encounter - S90.222A???Specify :TA??? Plan: * Treatment: 2.?Other hammer toe(s) (acqu ired), right foot? Start Extra Depth Orthopedic Shoes (1 Pair) with Customized Heat Molded Multidensity Innersoles (3 Pair), as directed, Dx: NIDDM/Polyneuropathy (E11.42), Hammertoe Foot Deformity (M20.41,M20.42), Preulcerative Skin Lesion(s) (L85.1, 1, Refills 0.?? Notes: Patient Educated with: DIABETIC FOOT CARE INSTRUCTIONS.pdf (DIABETIC FOOT CARE INSTRUCTIONS.pdf)?? 3.?Subungual hematoma of lef t foot, initial encounter?Procedure: 13596-Oxcbsfhl Plate * Procedures:?Debride Nail 6-10:?Nail debridement?Due to the clinical pathology outlined in the exam findings, performance of this nail treatment is medically necessary as its management by an unskilled/untrained nonprofessional would put this patients foot and overall health at risk. Therefore, debridement to affected nail(s), as described in exam (?TA, T1, T2, T3, T4, T5, T6, T7, T8, T9?), was performed exclusively by the physician of record to reduce/remove overall nail length, girth, thickness, subungual debris, and necrotic tissue, by manual and/or electrical means through the use of a nail nipper and/or dremel-type sugar grinder, to a more viable healthy nail plate or bed tissue 6- 10 nails in total. Silver nitrate was used for any petechial bleeding as necessary. Definitive antifungal treatment options, both pharmaceutical and surgical, have been reviewed and discussed with the patient. The patient solely prefers the use of intermittent/as needed professional debridement services for their nail condition and understands the need for additional periodic treatments to maintain effectiveness in symptomatic relief - 58791.?Keratoma Treatment:?Parring or Cutting of Benign Hyperkeratotic Lesion(s)?(-56) 2-4 Lesions - Due to the at risk nature of the patients medical condition as documented in the exam findings, performance of this keratoderma treatment is medically necessary as its management by an unskilled/untrained nonprofessional would put this patients foot and overall health at risk. Therefore, the benign hyperkeratotic lesions, ( 4 ) in total, locations as stated and described in the exam (?SUB MTH (s)?,?1?,?B/L?,?Plantar,?Heel(s)?,?B/L?), were pared, and/or cut utilizing a sterile 15 blade, tissue nippers, and/or power dremel instrumentation by the physician of record - 10388.?Nail Avulsion:?Location?TA, Total nail.?Anesthesia?was deferred - NEUROPATHY: patient has medically documented neuropathic condition affecting sensation.?Procedure?TOTAL: A fine sterile elevator was placed between the eponychium, nail fold, and nail plate to separate the structures. The entire offending portion of nail was from the nail bed with a rolling action and then removed with a hemostat. No underlying bone was identified. There was minimal bleeding as hemostasis was achieved through the temporary use of either a digital tourniquet or the aforementioned local with epinephrine. A bacitracin sterile dressing was applied. Local wound aftercare instructions were discussed and dispensed. The patient was informed of both conservative and future surgical procedures to prevent recurrence (96465), DIABETES: Pt was advised as to the risk of delayed or nonhealing due to diabetes. Pt is to call the office with any questions, concerns, or complications.? * Procedure Codes:?88004 DEBRI DE NAIL, 6 OR MORE, Modifiers: XS 50395 TRIM SKIN LESIONS, 2 TO 4, Modifiers: XS 08111 Avulsion Plate, Modifiers: XS , TA * Preventive Medicine:? ??Counseling:?Discussion:?-14: Office or other outpatient visit for the evaluation and management of an established patient, which required a medically appropriate history and/or examination and MODERATE level of DECISION MAKING for: 1 OR MORE CHRONIC PROBLEM(S) THATS WORSENING, 2 STABLE CHRONIC PROBLEMS, A NEWLY DIAGNOSED PROBLEM WITH UNCERTAIN PROGNOSIS, AN ACUTE COMPLICATED INJURY WITH MULTIPLE TREATMENT OPTIONS, OR AN ACUTE PROBLEM WITH ACCOMPANYING SYSTEMIC SYMPTOMS, THAT POSE(S) A MODERATE RISK OF MORBIDITY. THIS CONDITION MAY ALSO INCLUDE RX DRUG MANAGEMENT, OR A DECISON FOR MINOR SURGERY. The visit on the day of the encounter encompassed interpreting the data and educating the patient as to the nature of their condition, treatment options available according to their individual PMH, meds, allergies, and overall health/living conditions, as well as any potential risks or complications that may occur from a failure to adhere to, and participate in, the recommended course of therapy. The discussion included a complete verbal, and/or written explanation of the examination results, any x-rays taken, the proposed diagnosis, and outline of the treatment plan. A schedule for future care needs was also explained. The patient verbalized an understanding of the instructions at this time and agreed to be an active participant in their treatment. If the patient should think of any questions or concerns after the visit, I have encouraged the patient to call the office.?Diabetic Footcare:?The patient was advised against future self nail/callus care due to inherent risks for infection, loss of limb/life given diabetic, neuropathy.?Digital Surgery:?Digital surgery was discussed with the patient, We elected to try conservative treatment at the present time, due to the patients medical history and increased asssociated post-operative risks.?Digital Treatment:?HT- I explained to the patient the possible etiologies of Hammertoes, including genetics/foot type/shoegear/activity level/exercise routine and the risks/benefits of all the different treatment options for their pain including: No treatment at all, Rest, Ice, New/supportive/wider/deeper Shoegear, Digital Padding/Strapping/Taping/Bracing/Gel protective sleeves, Foot/Ankle AFO Bracing, Stretching exercises, Deep Tissue Massage, Arch support/shoe inserts with splay metatarsal padding, and Custom orthoses. I insisted that any digital devices be removed daily and not worn overnight for safety. The patient is to carefully examine the toes daily for any skin irritation while using any splinting or padding device. The advantages and disadvantages of each option were discussed and the patients questions re: shoegear, padding, custom vs prefabricated inserts, activity level, and consistency in home treatment regimens for optimal success were answered to their verbally confirmed satisfaction.?Shoe Gear Counseling:?SHOE Rx - The patient was counseled in great detail on their muscoloskeletal foot and toe deformities which coincided with the dermatological presentations visualized on exam. We discussed how their deformities put the integrity of their feet at risk for potential pedal complications which makes the accomidative diabetic shoes and cutomizable inserts medically necessary. We discussed the different shoe and insert treatment types and options, as well as the important advantages for adhering to regularly wearing these accomidative devices daily. The patient was made aware of the fact that a failure to abide by these recommedations may be deleterious to their foot health as they are able to prevent many pedal complications such as skin irritation, skin ulceration, infection, and even loss of toe/foot/leg/or life. Time was also spent with the patient dispensing and discussing proper diabetic footcare techniques including daily skin moisturization, daily foot inspection for any interruption in skin integrity including open lesions, or sign of infection such as redness/malodor/drainage/swelling. Also discussed and recommended were procedures regarding daily shoe inspection for the presence of internal foreign bodies as well as any visualized irregular shoe or insert wear. Patient questions re: shoes, inserts, and self foot inspections were answered to their satisfaction as the patient verbally confirmed a full understanding of the above information. A Rx for Extra Depth Orthopedic Shoes with 3 pair of custom heat-molded inserts was dispensed.? ??Screening/Special Tests:?Fall Risk?Screening:?No falls in the past year ?FALLS: Screening for Future Fall Risk?Have you had any falls with injury in the past year??No * Follow Up:?3 Months * Images: * Sign off status: Completed true * Provider:?Randy Leal DPM Date:?2024 Generated for Herber olea/Rolando/Emely on:?01/11/2025 10:29 AM EDT History and Physical Notes * HPI (History of Present Illness) Category Sub-Category Detail Notes Category Not es Toe pain Location: B/L feet Duration: several years Course: worse Aggravated by: shoes, any pressure Treatments: change in shoes Painful Nails Duration: States Possible Date Of Injury - 12/21/24 - dropped heavy object on toe At Risk footcare Pt States Last PCP Visit: Date: 5 Examination Category Sub-Category Detail Notes Category Not [...] MTH (s) , 1 , B/L , Plantar, Heel(s) , B/L Orthopedic GAIT ABNORMALITY: apropulsive , unstable/unsteady relating occasional difficulty with balance , cane-assisted FOOT MORPHOLOGY: Pes Cavus structure , (-) Charcot collapse/destruction noted at MTJ FOOTWEAR EVALUATION: worn, non-supportiv e, shoe gear properties exacerbate patient's foot/toe deformity DIGITAL DEFORMITIES: Digital contracture , PIPJ, 2-5 B/L, incompl-reducible to push-up test, no over, nor underlapping, with evidence of shoe producing skin irritation MUSCLE STRENGTH: 5/5 all groups in a symmetrical fashion, B/L General Examination GENERAL APPEARANCE: Reveals a pleasant, alert, well nourished, well-developed, well hydrated individual, who demonstrates proper attention to hygiene/body habitus, and is in no acute distress , Pt accompanied by , Female , who serves as , Kiln Feeder/Research Environmental Scientist , and/who is physically present in exam room at time of visit FOOT EXAM: Lower Extremity Neurological Exa m performed:: Yes Visual exam of foot performed:: Yes Date: 12/26/2024 ORIENTED: person, place, and t giuseppe Footwear Evaluation Footwear Evaluation performe d:: Yes Ophthalmology Referral DIABETES EYE EXAM Procedure Perform ed:: Yes ?Date of Exam Performed: 10/19/2024 Diabetic Retinopathy Screening:: Yes Retinal Screening Performed:: Yes Findings of Diabetic Eye Exam:: no retin opathy Vascular DP PULSES (B): 0/4 , LEFT , 1/4 , RIGHT PT PULSES (B): 0/4, B/L CAPILLARY FILL TIME: delayed, all digits , B/L TEMPERTURE GRADIENT (C): decreased, cool to cool, proximal to distal, B/L TROPHIC CONDITION-TEXTURE/ELASTICITY/TURGOR/HAIR GROWTH (B): decreased, B/L EDEMA (C): absent, B/L CLAUDICATION (C): admits , 0-15 min , B/L REST PAIN: denies, B/L PIGMENTATION: mottled, B/L Nails NAILS are: Elongated, overg rown, dystrophic, lytic, greater than 3mm thick, discolored and friable with crumbly malodorous subungual debris , TA, T1, T2, T3, T4, T5, T6, T7, T8, T9 , There is evidence of pain on palpation, and an area of SUBUNGUAL HEMORRHAGIC fluid with a pre-operative size measuring approximately ( 4-5 ) mm square, TA
--- OUTSIDE RECORDS SUMMARY | 2025-01-11 10:30 | XMS_ITS | Encounter Summary ---
Author Organization [facility] Address [address] [place] [address] 7[address] [place] [address] Care Team Providers Care Professional Builder Name Role Phone Unavailable Primary Care Provider Unavailabl e Reason for Visit * Reason Comments Med Refill Encounter Details Date Type Department Care Team (Late st Contact Info) Description 01/19/2024 Refill [facility] MEDICINE [address] [place] [address] Christianne John MD [address] [place] [address] Vitamin deficiency Social History Tobacco Use Types [...] 01/12/2025 9:00 AM EDT Office Visit [facility] ADULT DENTAL [address] [place] [address] Radha Johana [address] [place] [address] documented as of this encounter Visit Diagnoses Diagnosis Vitamin deficiency Unspecified vitamin deficiency documented in this encounter
--- OUTSIDE RECORDS SUMMARY | 2025-01-11 10:30 | XMS_ITS | Encounter Summary ---
Author Organization [employer] [facility] Address [address] [place] [address] [address], [place] [address] Care Team Providers Care Patient Placement Coordinator Name Role Phone Marycarmen Quijano MD Primary Care Provider Marycarmen Quijano MD Primary Care Provider [phone] Reason for Visit * Reason Comments Med Refill Encounter Details Date Type Department Care Team (Late st Contact Info) Description 11/10/2022 Refill [facility] MEDICINE [address] [place], [place] [phone] Marycarmen Quijano MD [address] [place], [place] [phone] Social History Tobacco Use Types Packs/Day Years [...] Description 01/12/2025 9:00 AM EDT Office Visit [facility] ADULT DENTAL [address] [place] [address] Radha, Johana [address] [place] [address] documented as of this encounter Visit Diagnoses Not on filedocumented in this encounter Care Teams Patient Placement Coordinator Relationship Specialty Start Date End Date Marycarmen Quijano MD [address] [place] [address] PCP - General Family Medicine 07/26/13 02/01/23 Marycarmen Quijano MD [address] [place] [address] PCP - General Family Medicine 03/02/23 06/20/23 documented as of this encounter
== END 2025-01-11 10:16 | disposition home or self-care (01) ==
LOC: HO.ENCR 09:30
PROVIDERS: PCP Internal Medicine; Visit Provider Student in an Organized Health Care Education/Training Program
DX: E21.3 Hyperparathyroidism, unspecified (principal)
CPT/HCPCS: 99204

== ENCOUNTER → 2025-01-11 09:30 | Outpatient (BNVA) | payer OTHER, SELFPAY | PROVIDERS: PCP Internal Medicine; Visit Provider Student in an Organized Health Care Education/Training Program | DX: E21.3 Hyperparathyroidism, unspecified (principal); I12.9 Hypertensive chronic kidney disease with stage 1 through stage 4 chronic kidney disease, or unspecified chronic kidney disease; E11.22 Type 2 diabetes mellitus with diabetic chronic kidney disease; N18.30 Chronic kidney disease, stage 3 unspecified | CPT/HCPCS: 99202 ==

== ENCOUNTER 2025-01-31 09:32 | Outpatient (AMB) | payer OTHER, SELFPAY ==
[2025-01-31 09:41] VITALS: BP 148/52; PULSE 67; O2SAT 97; BMI 40.8
--- NOTE | 2025-01-31 09:41 | A.OFFVIS_ITS ---
Vital Signs 01/31/25 09:41 Height 4 ft 9 in Weight 188 lb 7.924 oz BMI 40.8 BP 148/52 H Blood Pressure Location Rt brachial Position Sitting Pulse 67 Pulse Source Pulse Oximeter Pulse Oximetry (%) 97 Oxygen Delivery Method Room Air Intake Visit Reasons: Obstructive sleep apnea follow-up Allergies ibuprofen [From Motrin] Allergy (Intermediate, Verified 01/31/25 09:46) High Blood Pressure, Rash oxycodone [From Percocet] Allergy (Intermediate, Verified 01/31/25 09:46) Itching tirzepatide [From Mounjaro] Adverse Reaction (Severe, Verified 01/31/25 09:46) Diarrhea HPI Comments Details: The patient is a 79-year-old woman with a known history of asthma, severe aortic stenosis and morbid obesity who was admitted to the hospital the end of January with severe COVID-19 and acute respiratory failure. The patient had bilateral airspace disease the due to COVID. Course was complicated by renal failure requiring dialysis and anemia requiring blood transfusions. The patient recovered from a very serious case of COVID. She still complaining of shortness of breath specially with activity moderate in severity. She has significant aches and pains throughout her body. Moderate in severity. The patient also has significant fatigue and daytime drowsiness. She does have significant snoring noted by her daughter. Her Kamiah score is elevated 16/24. At this point the patient needs to undergo a sleep study. Will make arrangements for her to do so. In the meantime for her asthma she does have 1 inhaler. She does not know the name. She does not take it daily. The patient does need to be on maintenance inhaler this time. In the meantime the patient does have a severe aortic stenosis. She was supposed to have a surgical evaluation. But, then she became sick and was not able to follow through. Patient is concerned open heart surgery. She is wondering if any other alternatives such as the endovascular approach be an option for her specially with her worsening medical conditions. 10/31/2022 the patient is here for a pulmonary follow-up visit. The patient overall has been feeling better. She was evaluated over the phone back in July because about worsening exacerbation. She completed her medications and she is back to baseline. She is feeling better. She is not using the oxygen. Although wait and see a little bit more to make sure that she does not go back to using it. The patient has been on the inhalers with good effect. The of the a form although, she is having hard time with the powder inhalers is causing significant irritation of the mouth so therefore will stop the Trelegy and placed on Symbicort be more effective. Also to note the patient was admitted briefly to [facility] after developing hemorrhagic colitis and ultimately got better with antibiotics. 02/21/2024 the patient is here for a pulmonary follow-up visit. She has doing a lot better. She has not had to use the oxygen so therefore will discontinue it. She continues on respiratory therapy with good effect. Still getting winded. Also complaining of back pain. Also gets some sciatica discomfort that limits her activity. She does use a cane and also walker when she is little more stable on her feet. The patient otherwise is without any other complaints. Will have her get a chest x-ray. We did look at her CT scan of the chest that she had back in April 2023 which she was significantly sick. She had bilateral ground-glass opacities suggesting an ARDS picture. On examination she still has some minimal crackles at the bases suggesting some degree of scarring. If the chest x-ray is abnormal will go ahead and request a CT scan of the chest. If the patient continues to be symptomatic and the x-ray is nondiagnostic we may also consider getting a CT scan of the chest. 08/29/2024 the patient is here for a pulmonary follow-up visit. The patient overall has been doing well. Back in July she did have an episode of left- sided chest discomfort. Since we more musculoskeletal. She did undergo a chest x-ray that was without any acute disease. The patient has been trying over-the- counter remedies. Four. I did reassure her that does not appear to have any pulmonary manifestations. The patient did have a CT scan back in 2022 with significant airspace disease at that point she did have infection. The patient will need to get the Prevnar 20 vaccine today. She will get a flu shot and also has to get a booster for pertussis with her primary care doctor. She will follow-up in 6 months. If any issues arise she will call for an earlier assessment. 01/31/2025 the patient is here for a pulmonary follow-up visit. Overall she is doing okay. She does complaint of significant fatigue. Moderate severity. She did have blood work recently she was anemic. More than usual for her. She does take vitamins and I believe she has taken iron. The patient also complains of shortness of breath. Primarily with activity especially going up a flight of stairs. In addition to that she does complaint of chest discomfort at times. She does use her respiratory therapy. But seems to just take the Symbicort as needed. Will go ahead and switch over to Trelegy that she can use once a day. She can hold off on the Symbicort. I will send her rescue inhalers to use also as needed instead of the Symbicort. She is going to undergo blood work. She should also undergo a chest x-ray. 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 Aortic stenosis CKD (chronic kidney disease) stage 3, GFR 30-59 ml/min Dyslipidemia Diabetic polyneuropathy associated with type 2 diabetes mellitus Diabetic nephropathy associated with type 2 diabetes mellitus Chronic kidney disease Hypertension Asthma Thalamic pain syndrome GERD (gastroesophageal reflux disease) Morbid obesity Surgical History H/O aortic valve replacement History of breast lump/mass excision History of tubal ligation History of cholecystectomy Family History Sister History of renal pelvis cancer Father Suicide Mother Lung disease Diabetes mellitus Social History Household Members: Family Housing: House Do you presently have visiting nurse or other home services: Yes (balling 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 Patient Tobacco Use Status: Former Tobacco user Tobacco use type: Cigarette Years Smoked: 5 years e-Cigarette/Vaping Use: Never Used Second Hand Smoke Exposure: No service: No Current occupational status: unemployed and disabled Gender identity: Female Cognitive needs: Yes Hearing needs: No Vision needs: No Female Reproductive History Menstrual Age of Menarche: 10 Review of Systems Const Reports fatigue, Denies night sweats and Reports weight loss ENT Denies change in voice, Denies lip swelling, Denies mouth pain, Reports nasal congestion, Reports nasal discharge, Reports neck pain, Reports sore throat and Denies tongue swelling Card Denies chest pain and Reports dyspnea on exertion Resp Denies chest congestion, Reports cough and Reports dyspnea on exertion GI Denies abdominal pain Reports no additional complaints Musc Reports back pain, Reports myalgias, Reports arthralgias, Reports joint swelling, Reports limited range of motion and Reports neck pain Neuro Denies Neuro-related abnormal movements Psych Denies no additional complaints Endo Reports fatigue Luis Antonio/Lymph Denies easy bleeding and Denies lymphadenopathy Aller/Immun Denies lip swelling and Denies tongue swelling Physical Exam Vital Signs: Last Vital Signs Pulse 67 01/31/25 09:41 BP 148/52 H 01/31/25 09:41 Pulse Ox 97 01/31/25 09:41 Oxygen Delivery Method Room Air 01/31/25 09:41 BMI result Body Mass Index 40.8 Last Vital Signs Temp 98 F 04/17/23 12:00 Pulse 64 04/17/23 12:00 Resp 19 04/17/23 12:00 BP 134/67 04/17/23 12:00 Pulse Ox 93 04/17/23 12:00 O2 Del Method Oxymask 04/17/23 12:00 O2 Flow Rate 2.5 04/17/23 12:00 Oxygen Flow Rate 10 04/16/23 12:39 BMI result Body Mass Index 43.7 Const General: comfortable Orientation/consciousness: patient oriented x3 Neck Neck: Yes normal visual inspection, Yes full ROM and Yes no lymphadenopathy Chest Chest palpation & inspection: normal inspection of the chest Resp Effort & Inspection: able to speak in complete sentences Auscultation: diminished lung sounds Cardio Rate: regular rate Rhythm: regular rhythm Heart sounds: S1 normal heart sound present, S2 normal heart sound present and Murmur heart sound present GI Palpation (GI): Soft to palpation and nontender Auscultation: normal bowel sounds Skin General skin exam: rashes and/or lesions noted Neuro General: patient oriented x3 Assessment & Plan Assessment & Plan (1) JOSE (obstructive sleep apnea): Code(s): G47.33 - Obstructive sleep apnea (adult) (pediatric) Category: Medical (2) Asthma: Code(s): J45.909 - Unspecified asthma, uncomplicated Category: Medical Qualifiers: Asthma complication type: uncomplicated Asthma persistence: persistent Asthma severity: moderate Qualified Code(s): J45.40 - Moderate persistent asthma, uncomplicated (3) Aortic stenosis: Code(s): I35.0 - Nonrheumatic aortic (valve) stenosis Category: Medical Qualifiers: Cardiac valve disease etiology: nonrheumatic Qualified Code(s): I35.0 - Nonrheumatic aortic (valve) stenosis (4) Dyspnea: Code(s): R06.00 - Dyspnea, unspecified Category: Medical Qualifiers: Dyspnea type: dyspnea on exertion Qualified Code(s): R06.09 - Other forms of dyspnea (5) Chest pain: Code(s): R07.9 - Chest pain, unspecified Category: Medical Qualifiers: Chest pain type: unspecified Qualified Code(s): R07.9 - Chest pain, unspecified Plan stop Symbicort start Trelegy CARRIE as needed positional therapy weight management CXR Bloodwork F/U 4-6 months Orders: Orders Basic Metabolic Panel Today M54.9 - Dorsalgia, unspecified IRON PROFILE Today M54.9 - Dorsalgia, unspecified Ferritin Today M54.9 - Dorsalgia, unspecified Liver Panel Today M54.9 - Dorsalgia, unspecified Complete Blood Count Auto Diff Today M54.9 - Dorsalgia, unspecified Erythrocyte Sedimentation Rate Today M54.9 - Dorsalgia, unspecified XR chest 2V Today R07.9 - Chest pain, unspecified Medications: New ixecbatlhbh-wfwwxxlyd-mgsadomg 200-62.5-25 mcg (Trelegy Ellipta) 1 inh inhalation DAILY 60 ea 12RF 30 days albuterol sulfate 90 mcg/actuation 2 inhalations inhalation Q6H PRN 18 grams 12RF shortness of breath or wheezing 30 days J44.9 - Chronic obstructive pulmonary disease, unspecified Discontinued budesonide-formoterol 160-4.5 mcg/actuation (Symbicort) Discontinued Reason: Doctor's Order 2 puffs inhalation BID 30 days 10.2 grams 11RF J44.89 - Other specified chronic obstructive pulmonary disease Coding Level of Care Code Est Pt Level 4 (97189) Complex EM visit Add On G2211 Diagnoses JOSE (obstructive sleep apnea) G47.33 Moderate persistent asthma without complication J45.40 Asthma complication type: uncomplicated Asthma persistence: persistent Asthma severity: moderate Nonrheumatic aortic valve stenosis I35.0 Cardiac valve disease etiology: nonrheumatic Dyspnea on exertion R06.09 Dyspnea type: dyspnea on exertion Chest pain, unspecified type R07.9 Chest pain type: unspecified Time Spent (min) 17
--- OUTSIDE RECORDS SUMMARY | 2025-01-31 10:17 | XMS_ITS | Encounter Summary ---
Author Organization [employer] Address [address] [place] [address] 7[address] [place] [address] Care Team Providers Care Right Of Way Worker Name Role Phone Marycarmen Quijano MD Primary Care Provider [phone] Reason for Visit * Reason Comments Med Refill Encounter Details Date Type Department Care Team ([facility] Contact Info) Description 03/07/2023 Refill [facility] [address] [place], [place] [phone] Marycarmen Quijano MD [address] [place] [address] Social History Tobacco Use Types Packs/Day Years [...] Upcoming Encounters Date Type Department Care Team ([facility] Contact Info) Description 02/27/2025 10:00 AM EDT Office Visit [facility] ADULT DENTAL [address] [place] [address] Moy Caldwell DDS [address] [place] [address] 07/25/2025 10:00 AM EDT Office Visit [facility] ADULT DENTAL [address] [place] [address] Johana Garcia [address] [place] [address] documented as of this encounter Visit Diagnoses Not on filedocumented in this encounter Care Teams Right Of Way Worker Relationship Specialty Start Date End Date Marycarmen Quijano MD [address] [place] [address] PCP - General Family Medicine 03/02/23 06/20/23 documented as of this encounter
--- OUTSIDE RECORDS SUMMARY | 2025-01-31 10:18 | XMS_ITS | Encounter Summary ---
Author Organization [facility] [facility] Address [address] [place] [address] 7t [place] [address] Care Team Providers Care Stud Setter Name Role Phone Unavailable Primary Care Provider Unavailabl e Reason for Visit * Reason Comments Med Refill Encounter Details Date Type Department Care Team (Late Contact Info) Description 01/19/2024 Refill [facility] MEDICINE [address] [place] [address] Christianne John MD [address] [place] [address] Vitamin deficiency Social History Tobacco Use Types [...] Department Care Team (Late Contact Info) Description 02/27/2025 10:00 AM EDT Office Visit [facility] ADULT DENTAL [address] [place], [place] [phone] Moy Caldwell DDS [address] [place] [address] 07/25/2025 10:00 AM EDT Office Visit [facility] ADULT DENTAL [address] [place] [address] Johana Garcia [address] [place] [address] documented as of this encounter Visit Diagnoses Diagnosis Vitamin deficiency Unspecified vitamin deficiency documented in this encounter
--- OUTSIDE RECORDS SUMMARY | 2025-01-31 10:18 | XMS_ITS | Encounter Summary ---
Author Organization [employer] Address [address] [facility] 7t [place] [address] Care Team Providers Care Python Programmer Name Role Phone Marycarmen Quijano MD Primary Care Provider [phone] Reason for Visit * Reason Comments Med Refill Encounter Details Date Type Department Care Team ([facility] Contact Info) Description 04/12/2023 Refill [facility] [address] [place] [address] Jose Johnson MD [address] [place] [address] Social History Tobacco Use Types Packs/Day Years [...] Upcoming Encounters Date Type Department Care Team ([facility] Contact Info) Description 02/27/2025 10:00 AM EDT Office Visit [facility] ADULT DENTAL [address] [place] [address] Moy Caldwell DDS [address] [place] [address] 07/25/2025 10:00 AM EDT Office Visit [facility] ADULT DENTAL [address] [place], [place] [phone] Radha, Johana [address] [place] [address] documented as of this encounter Visit Diagnoses Not on filedocumented in this encounter Care Teams Python Programmer Relationship Specialty Start Date End Date Marycarmen Quijano MD [address] [place], [place] [phone] PCP - General Family Medicine 03/02/23 06/20/23 documented as of this encounter
--- OUTSIDE RECORDS SUMMARY | 2025-01-31 10:18 | XMS_ITS ---
Author Organization [facility] Address [address] [place] [address] Care Team Providers Care Dry Molder Name Role Phone Jaime VORA, Shelby Primary Care Provider Unavail able Randy Leal Unavailable [phone] Allergies Allergen (clinical drug ingredient) Drug/Non Drug [...] Ordered Date Performed Result Body Sit e 75405-XOHSZFK NAIL, 6 OR MORE 12/26/2024 N/A 52273-Cukkxesd Plate 12/26/2024 N/A 72222-LPXD SKIN LESIONS, 2 TO 4 12/26/2024 N/A Encounters Encounter Location Date Provider Diagnosis [facility] [address] [place] [address] 12/26/2024 Randy Leal Type 2 diabetes mellitus [...] INSTRUCTIONS.pdf) Pending Test Test Name Order Date 56604-VNUNSOC NAIL, 6 OR MORE 12/26/2024 02959-Cnsrgtca Plate 12/26/2024 73415-OZEQ SKIN LESIONS, 2 TO 4 12/27/19 Next Appt Details Follow Up: 3 Months, Reason: Provider Name:Randy Leal , 03/27/2025 09:30:00 AM, [address] [place] [address], [id number], Procedure Notes * Category Sub-Category Detail Notes [...] and future surgical procedures to prevent recurrence (07929), DIABETES: Pt was advised as to the [...] use of a nail nipper and/or dremel-type rotary surface grinder, to a more viable healthy nail [...] to maintain effectiveness in symptomatic relief - 71638 Keratoma Treatment Parring or Cutting o f [...] instrumentation by the physician of record - 43817 Progress Notes * Katherine DIASDOB: 5 (79 yo F)Acc No.[id number]:12/26/2024 Progress Note Patient:Katherine UNDERWOOD Provider:?Randy Leal DPM :1945???Age:79 Y???Sex:Female D ate:12/26/2024 Address:[address] [place], [place] [id number] Pcp:Shelby Sandoval MD Subjective: * Chief Complaints: [...] , Female , who serves as , Rivet Hammer Machine Operator/Remelt Worker , and/who is physically present in exam [...] hematoma of lef t foot, initial encounter?Procedure: 85835-Hvrqzbal Plate * Procedures:?Debride Nail 6-10:?Nail debridement?Due to [...] use of a nail nipper and/or dremel-type rotary surface grinder, to a more viable healthy nail [...] to maintain effectiveness in symptomatic relief - 18003.?Keratoma Treatment:?Parring or Cutting of Benign Hyperkeratotic Lesion(s)?(-56) [...] instrumentation by the physician of record - 30947.?Nail Avulsion:?Location?TA, Total nail.?Anesthesia?was deferred - NEUROPATHY: patient [...] and future surgical procedures to prevent recurrence (54180), DIABETES: Pt was advised as to the risk of delayed or nonhealing due to diabetes. Pt is to call the office with any questions, concerns, or complications.? * Procedure Codes:?38124 DEBRI DE NAIL, 6 OR MORE, Modifiers: XS 09079 TRIM SKIN LESIONS, 2 TO 4, Modifiers: XS 58879 Avulsion Plate, Modifiers: XS , TA * [...] Leal DPM Date:?2024 Generated for Herber olea/Rolando/Emely on:?01/31/2025 10:18 AM EDT History and Physical Notes * [...] , Female , who serves as , Rivet Hammer Machine Operator/Remelt Worker , and/who is physically present in exam [...]
--- OUTSIDE RECORDS SUMMARY | 2025-01-31 10:18 | XMS_ITS | Encounter Summary ---
Author Organization [employer] Address [address] [place] [address] 7t [place] [address] Care Team Providers Care Physician General Practice Name Role Phone Marycarmen Quijano MD Primary Care Provider [phone] Reason for Visit * Reason Comments Med Refill Encounter Details Date Type Department Care Team (Late Contact Info) Description 03/10/2023 Refill [facility]EDS [address] [place], [place] [phone] Marycarmen Quijano MD [address] [place], [place] [phone] Primary hypertension Social History Tobacco Use Types [...] Upcoming Encounters Date Type Department Care Team ([facility] Contact Info) Description 02/27/2025 10:00 AM EDT Office Visit [facility] ADULT DENTAL [address] [place] [address] Moy Caldwell DDS [address] [place], [place] [phone] 07/25/2025 10:00 AM EDT Office Visit [facility] ADULT DENTAL [address] [place] [address] Johana Garcia [address] [place], [place] [phone] documented as of this encounter Visit Diagnoses Diagnosis Primary hypertension Unspecified essential hypertension documented in this encounter Care Teams Physician General Practice Relationship Specialty Start Date End Date Marycarmen Quijano MD [address] [place] [address] PCP - General Family Medicine 03/02/23 06/20/23 documented as of this encounter
--- OUTSIDE RECORDS SUMMARY | 2025-01-31 10:18 | XMS_ITS ---
Author Organization [facility] Address [address] [place] [address] Care Team Providers Care Orthopedic Assistant Name Role Phone Jaime VORA, Shelby Primary Care Provider Unavail Randy Marshall Unavailable [phone] Encounters Encounter Location Date Provider Diagnosis [address] [address] 09/19/2024 Randy Leal Plan Of Treatment Next Appt Details Provider Name:Randy Leal , 03/27/2025 09:30:00 AM, [address] [place], [address], Progress Notes * Katherine DIASDOB: (79 yo F)Acc No.[id number]:09/19/2024 Progress Note Patient:?ARUNKatherine Provider:?Randy Leal DPM :1945???Age:79 Y???Sex:Female D ate:09/19/2024 Address:[address] [place], [place] [id number] Pcp:Shelby Sandoval MD Subjective: * Chief Complaints: [...] Leal DPM Date:?2023 Generated for Herber olea/Rolando/Emely on:?01/31/2025 10:18 AM EDT
--- OUTSIDE RECORDS SUMMARY | 2025-01-31 10:18 | XMS_ITS | Encounter Summary ---
Author Organization [facility] Address [address] [place] [address] 7t [place] [address] Care Team Providers Care Ultra Sound Technician Name Role Phone Marycarmen Quijano MD Primary Care Provider [phone] Marycarmen Quijano MD Primary Care Provider [phone] Encounter Details Date Type Department Care Team (Latest Contact Info) Description 06/16/2021 Abstract [facility] CONVERSIONS Dental, Provider, DDS Social History [...] Care Team (Late st Contact Info) Description 02/27/2025 10:00 AM EDT Office Visit [facility] ADULT DENTAL [address] [place] [address] Moy Caldwell DDS [address] [place] [address] 07/25/2025 10:00 AM EDT Office Visit [facility] ADULT DENTAL [address] [place] [address] Johana Garcia [address] [place] [address] documented as of this encounter Visit Diagnoses Not on filedocumented in this encounter Care Teams Ultra Sound Technician Relationship Specialty Start Date End Date Marycarmen Quijano MD [address] [place] [address] PCP - General Family Medicine 07/26/13 02/01/23 Marycarmen Quijano MD [address] [place] [address] PCP - General Family Medicine 03/02/23 06/20/23 documented as of this encounter
--- OUTSIDE RECORDS SUMMARY | 2025-01-31 10:18 | XMS_ITS | Encounter Summary ---
Author Organization [employer] Address [address] [place] [address] [address] [address] Care Team Providers Care Extruder Operator Vertical Name Role Phone Marycarmen Quijano MD Primary Care Provider [phone] Marycarmen Quijano MD Primary Care Provider [phone] Reason for Visit * Reason Comments Med Refill Encounter Details Date Type Department Care Team (Late st Contact Info) Description 11/10/2022 Refill [facility] MEDICINE [address] [place], [place] [phone] Marycarmen Quijano MD [address] [place], [place] [phone] Social History Tobacco Use Types Packs/Day Years [...] [facility] [address] [place] [address] Moy Caldwell DDS [address] [place], [place] [phone] 07/25/2025 10:00 AM EDT Office Visit [facility] ADULT DENTAL [address] [place] [address] Johana Garcia [address] [place] [address] documented as of this encounter Visit Diagnoses Not on filedocumented in this encounter Care Teams Extruder Operator Vertical Relationship Specialty Start Date End Date Marycarmen Quijano MD [address] [place] [address] PCP - General Family Medicine 07/26/13 02/01/23 Marycarmen Quijano MD [address] [place] [address] PCP - General Family Medicine 03/02/23 06/20/23 documented as of this encounter
--- OUTSIDE RECORDS SUMMARY | 2025-01-31 10:18 | XMS_ITS | Encounter Summary ---
Author Organization [employer] [facility] Address [address] [place] [address] 7t [place] [address] Care Team Providers Care Oceanology Teacher Name Role Phone Marycarmen Quijano MD Primary Care Provider [phone] Reason for Visit * Reason Comments Med Refill Encounter Details Date Type Department Care Team ([facility] Contact Info) Description 02/06/2023 Refill [facility] MEDICINE [address] [place] [address] Marycarmen Quijano MD [address] [place] [address] Social History Tobacco Use Types Packs/Day Years [...] Upcoming Encounters Date Type Department Care Team ([facility] Contact Info) Description 02/27/2025 10:00 AM EDT Office Visit [facility] ADULT DENTAL [address] [place] [address] Moy Caldwell DDS [address] [place] [address] 07/25/2025 10:00 AM EDT Office Visit [facility] ADULT DENTAL [address] [place], [place] [phone] Radha, Johana [address] [place] [address] documented as of this encounter Visit Diagnoses Not on filedocumented in this encounter Care Teams Oceanology Teacher Relationship Specialty Start Date End Date Marycarmen Quijano MD [address] [place], [place] [phone] PCP - General Family Medicine 03/02/23 06/20/23 documented as of this encounter
--- OUTSIDE RECORDS SUMMARY | 2025-01-31 10:18 | XMS_ITS | Encounter Summary ---
Author Organization [employer] [facility] Address [address] [place] [address] 7t [place] [address] Care Team Providers Care Cone Worker Name Role Phone Marycarmen Quijano MD Primary Care Provider [phone] Reason for Visit * Reason Comments Med Refill Encounter Details Date Type Department Care Team ([facility] Contact Info) Description 04/15/[address] [facility] MEDICINE [address] [place] [address] Marycarmen Quijano MD [address] [place] [address] Social History Tobacco Use Types Packs/Day Years [...] Care Team ([facility] Contact Info) Description 02/27/2025 10:00 AM EDT Office [address] [facility] ADULT DENTAL [address] [place] [address] Moy Caldwell DDS [address] [place] [address] 07/25/2025 10:00 AM EDT Office Visit [facility] ADULT DENTAL [address] [place], [place] [phone] Radha, Johana [address] [place] [address] documented as of this encounter Visit Diagnoses Not on filedocumented in this encounter Care Teams Cone Worker Relationship Specialty Start Date End Date Marycarmen Quijano MD [address] [place], [place] [phone] PCP - General Family Medicine 03/02/23 06/20/23 documented as of this encounter
--- OUTSIDE RECORDS SUMMARY | 2025-01-31 10:18 | XMS_ITS | Clinical Summary ---
Author Organization [facility] 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 01/28/2021 Chronic [...] arteriosclerosis 07/11/2012 Overview (12/07/2022): Cath 01/2010 at [facility] showed LCx 80% and ostial LAD 80% [...] Visit [facility] [address] [address] Alycia Rios ARNP Stage 3b [...] Visit [facility] [address] [place] [address] Dominick Reece MD [address] [facility] [address] [place] [address] Health Maintenance Due Date Last Done Comments Diabetes: Ophthalmology Exam 11/04/2020 Diabetes: Pedal Pulse Checked 11/04/2020 Diabetes: Sensory Foot Exam 11/04/2020 Diabetes: Visual Foot Exam 11/04/2020 Diabetes: Hemoglobin A1C 12/17/2020 09/18/2020 Influenza Vaccine (Season Ended) 2025 07/20/2022, 07/20/2022, 06/05/2020, Additional history exists Pneumococcal Vaccine: 50+ Years Completed 06/03/2016, 06/03/2016, 07/15/2015, Additional history exists Pneumococcal Vaccine: Peds (0 to 5 Years) and At-Risk Patients (6 to 49 Years) Discontinued 06/03/2016, 06/03/2016, 07/15/2015, Additional history exists Hepatitis [...] A1C 8.5(H) <5 % PVNMA Comments From [facility] Creatinine 1.35(H) 0.70 - 1.30 mg/dl PVNMA Potassium 4.5 3.5 - 5.1 mmol/L PVNMA Calcium 8.8 8.4 - 10.2 mg/dl PVNMA eGFR Non- 38(L) >60 ml/min PVNMA 09/18/2020 us [facility] Conversion LAB [id number] LICITED RESULTS Final Result PVNMA from Last 3 Months or Most Recently Relevant to Health Maintenance Insurance [facility] ([id number]) [facility] ([id number]) Care Teams Psychotherapist Counselor Relationship Specialty Start Date End Date Marycarmen Quijano MD [address] [place] [address] PCP - General 10/14/20
--- OUTSIDE RECORDS SUMMARY | 2025-01-31 10:18 | XMS_ITS | Patient Health Record ---
Author Organization [facility] Address [address] [place] [address] Care Team Providers Care Health Unit Coordinator Name Role Phone Jaime VORA, Shelby Primary Care Provider Unavail able Randy Leal Unavailable [phone] Allergies Allergen (clinical drug ingredient) Drug/Non Drug Allergy documented on EMR Reaction Allergy Type Onset Date Status ibuprofen Advil Unknown Drug Allergy Active Aleve Unknown Drug Allergy Active Motrin Unknown Drug Allergy Active codeine Codeine Unknown Drug Allergy Active Morphine and Related Unknown Drug Allergy Active Results Component Value Reference Range Notes HEMOGLOBIN A1C (GLYCOHEMOGLO BIN) Reviewed date:03/17/2024 11:26:54 AM Interpretation: Performing Lab: Notes/Report: HEMOGLOBIN A1C (HH) 8.6 HEMOGLOBIN A1C (GLYCOHEMOGLO BIN) Reviewed date:12/26/2024 12:28:33 PM Interpretation: Performing Lab: Notes/Report: HEMOGLOBIN A1C % (HH) 8.4 HEMOGLOBIN A1C (GLYCOHEMOGLO BIN) Reviewed date:10/21/2024 04:29:16 PM Interpretation: Performing Lab: Notes/Report: HEMOGLOBIN A1C % (HH) 8.6 Reason For Referral No Information [...] Problem Acquired hammer toe of right foot (9480226482321109 ) Other hammer toe(s) (acquired), right foot (M20.41) Active confirmed Problem Acquired hammer toe of left foot (7277176413286879 ) Other hammer toe(s) (acquired), left foot (M20.42) Active confirmed Problem Polyneuropathy due to type 2 diabetes mellitus (290101607) Type 2 diabetes mellitus with diabetic polyneuropathy (E11.42) Active confirmed Vital Signs Blood pressure diastolic 70 mm Hg 12/26/2024 Height 4 ft 9 in in 12/26/2024 Blood pressure systolic 120 mm Hg 12/26/2024 Weight 192 lbs 12/26/2024 BMI 41.54 kg/m2 12/26/2024 Procedures Procedure Date Ordered Date Performed Result Body Sit e 84718-CJZRGSG NAIL, 6 OR MORE 03/17/2024 N/A 41170-XIAD SKIN LESIONS, 2 TO 4 03/17/2024 N/A 37582-QPQFGTL NAIL, 6 OR MORE 06/16/2024 N/A 64156-GUSR SKIN LESIONS, 2 TO 4 06/16/2024 N/A 33605-UWFHGKI NAIL, 6 OR MORE 12/26/2024 N/A 08415-Elgswefk Plate 12/26/2024 N/A 11438-XXZL SKIN LESIONS, 2 TO 4 12/26/2024 N/A Encounters Encounter Location Date Provider Diagnosis [address] [address] 03/17/2024 Randyalycia Leal Type 2 diabetes mellitus with diabetic polyneuropathy E11.42 ; Tinea unguium B35.1 ; Other hammer toe(s) (acquired), right foot M20.41 and Other hammer toe(s) (acquired), left foot M20.[address] [address] 06/16/2024 Randy Leal Type 2 diabetes mellitus with diabetic polyneuropathy E11.42 and Tinea unguium B35.[address] [address] 12/26/2024 Randy Leal Type 2 diabetes mellitus with diabetic polyneuropathy E11.42 ; Tinea unguium B35.1 ; Other hammer toe(s) (acquired), right foot M20.41 ; Other hammer toe(s) (acquired), left foot M20.42 and Subungual hematoma of left foot, initial encounter S90.222A [address] [address] 09/19/2024 Randy Leal [address] [address] 12/26/2024 Randy Leal Assessments Encounter Date Diagnosis [...] Treatment Pending Test Test Name Order Date 62317-ZGWKYAD NAIL, 6 OR MORE 03/17/2024 13515-URYVTRL NAIL, 6 OR MORE 06/16/2024 90199-VCAULFV NAIL, 6 OR MORE 12/26/2024 74311-Jiqppnwd Plate 12/26/2024 12247-WGNS SKIN LESIONS, 2 TO 4 12/27/19 66694-IBFU SKIN LESIONS, 2 TO 4 06/16/20 33252-FSKL SKIN LESIONS, 2 TO 4 03/17/20 Next Appt Details Provider Name:Randy Leal , 03/27/2025 09:30:00 AM, [address] [place] [address], [phone], Insurance Providers Payer Name Payer Address Payer Phone Subscriber Number Group Number Insured Name Patient Relationship to Insured Coverage Start Date Coverage End Date [facility] [employer] Claims [address] [place] [phone] [id number] Katherine Jamil Self - patient is the insured Medical (General) History Medical History History ICD Code Anxiety Arthritis asthma Back,Hip,and Knee pain CAD (Cholesterol) Cataracts Depression Diabetic Heart disease High blood pressure Kidney disease Lung disease Numbness Poor circulation Reflux ( GERD) sinusitis Vascular phlebitis (clots) Chicken pox Replacement Heart Valves Transfusions Surgical History Surgery Date(Month/Year)
--- OUTSIDE RECORDS SUMMARY | 2025-01-31 10:18 | XMS_ITS | Encounter Summary ---
Author Organization [employer] Address [address] [place] [address] 7t [place] [address] Care Team Providers Care Livestock Producer Name Role Phone Marycarmen Quijano MD Primary Care Provider [phone] Reason for Visit * Reason Comments Med Refill Encounter Details Date Type Department Care Team ([facility] Contact Info) Description 03/03/2023 Refill [facility] MED & PEDS [address] [place], [place] [phone] Marycarmen Quijano MD [address] [place] [address] Primary hypertension Social History Tobacco Use Types [...] Upcoming Encounters Date Type Department Care Team ([facility] Contact Info) Description 02/27/2025 10:00 AM EDT Office Visit [facility] ADULT DENTAL [address] [place] [address] Moy Caldwell DDS [address] [place] [address] 07/25/2025 10:00 AM EDT Office Visit [facility] ADULT DENTAL [address] [place], [place] [phone] RadhaJohana [address] [place] [address] documented as of this encounter Visit Diagnoses Diagnosis Primary hypertension Unspecified essential hypertension documented in this encounter Care Teams Livestock Producer Relationship Specialty Start Date End Date Marycarmen Quijano MD [address] [place] [address] PCP - General Family Medicine 03/02/23 06/20/23 documented as of this encounter
--- OUTSIDE RECORDS SUMMARY | 2025-01-31 10:18 | XMS_ITS ---
Author Organization [facility] Address [address] [place] [address] Care Team Providers Care System Architect Name Role Phone Jaime VORA, Shelby Primary Care Provider Unavail able Randy Leal Unavailable [phone] REASON FOR VISIT buy Small Plantar Fasc Sleeve Encounters Encounter Location Date Provider Diagnosis [facility] [address] [place] [address] 12/26/2024 Randy Leal Plan Of Treatment Next Appt Details Provider Name:Randy Leal , 03/27/2025 09:30:00 AM, [address] [place], [address], Progress Notes * Katherine DIASDOB: (79 yo F)Acc No.[id number]:12/26/2024 Patient:?ARUNKatherine :1945???Age:79 Y???Sex:Female Address:[address] [place], [address] * true * Date:? Generated for Cotyi emmie/Rolando/eTransmitting on:?01/31/2025 10:17 AM EDT
--- OUTSIDE RECORDS SUMMARY | 2025-01-31 10:18 | XMS_ITS | Encounter Summary ---
Author Organization [employer] [facility] Address [address] [place] [address] 7t [place] [address] Care Team Providers Care Retail Event And Sales Assistant Name Role Phone Marycarmen Quijano MD Primary Care Provider [phone] Reason for Visit * Reason Comments Med Refill Encounter Details Date Type Department Care Team ([facility] Contact Info) Description 04/04/2023 Refill [facility] MEDICINE [address] [place] [address] Marycarmen Quijano MD [address] [place] [address] Social History Tobacco Use Types Packs/Day Years [...] Upcoming Encounters Date Type Department Care Team ([facility] Contact Info) Description 02/27/2025 10:00 AM EDT Office Visit [facility] ADULT DENTAL [address] [place] [address] Moy Caldwell DDS [address] [place] [address] 07/25/2025 10:00 AM EDT Office Visit [facility] ADULT DENTAL [address] [place], [place] [phone] Radha, Johana [address] [place] [address] documented as of this encounter Visit Diagnoses Not on filedocumented in this encounter Care Teams Retail Event And Sales Assistant Relationship Specialty Start Date End Date Marycarmen Quijano MD [address] [place], [place] [phone] PCP - General Family Medicine 03/02/23 06/20/23 documented as of this encounter
--- OUTSIDE RECORDS SUMMARY | 2025-01-31 10:19 | XMS_ITS | Encounter Summary ---
Author Organization [employer] [facility] Address [address] [place] [address] 7t [place] [address] Care Team Providers Care Director Of Distance Learning Name Role Phone Unavailable Primary Care Provider Unavailabl e Reason for Visit * Reason Comments Med Refill Encounter Details Date Type Department Care Team (Late st Contact Info) Description 12/01/2023 Refill [facility] MEDICINE [address] [place] [address] Christianne John MD [address] [place] [address] Moderate persistent asthma, unspecified whether complicated Social [...] Description 02/27/2025 10:00 AM EDT Office Visit [facility] ADULT DENTAL [address] [place] [address] Moy Caldwell DDS [address] [place] [address] 07/25/2025 10:00 AM EDT Office Visit [facility] ADULT DENTAL [address] [place] [address] Johana Garcia [address] [place] [address] documented as of this encounter Visit Diagnoses Diagnosis Moderate persistent asthma, unspecified whether complicated documented in this encounter
--- OUTSIDE RECORDS SUMMARY | 2025-01-31 10:19 | XMS_ITS | Encounter Summary ---
Author Organization [employer] [facility] Address [address] [place] [address] 7t [place] [address] Care Team Providers Care Information Systems Coordinator Name Role Phone Unavailable Primary Care Provider Unavailabl e Reason for Visit * Reason Comments Med Refill Encounter Details Date Type Department Care Team (Late st Contact Info) Description 11/29/2023 Refill [facility] MEDICINE [address] [place] [address] Christianne John MD [address] [place] [address] Moderate persistent asthma, unspecified whether complicated Social [...] 02/27/2025 10:00 AM EDT Office Visit [facility] ADULT DENTAL [address] [place] [address] Moy Caldwell DDS [address] [place] [address] 07/25/2025 10:00 AM EDT Office Visit [facility] ADULT DENTAL [address] [place] [address] Johana Garcia [address] [place] [address] documented as of this encounter Visit Diagnoses Diagnosis Moderate persistent asthma, unspecified whether complicated documented in this encounter
--- OUTSIDE RECORDS SUMMARY | 2025-01-31 10:19 | XMS_ITS | Encounter Summary ---
Author Organization [employer] [facility] Address [address] [place] [address] 7t [place] [address] Care Team Providers Care Drying Equipment Operator Name Role Phone Unavailable Primary Care Provider Unavailabl e Reason for Visit * Reason Comments Med Refill Encounter Details Date Type Department Care Team (Late st Contact Info) Description 11/24/2023 Refill [facility] MEDICINE [address] [place] [address] Christianne John MD [address] [place] [address] Moderate persistent asthma, unspecified whether complicated Social [...] Description 02/27/2025 10:00 AM EDT Office Visit [facility] ADULT DENTAL [address] [place] [address] Moy Caldwell DDS [address] [place] [address] 07/25/2025 10:00 AM EDT Office Visit [facility] ADULT DENTAL [address] [place] [address] Johana Garcia [address] [place] [address] documented as of this encounter Visit Diagnoses Diagnosis Moderate persistent asthma, unspecified whether complicated documented in this encounter
--- OUTSIDE RECORDS SUMMARY | 2025-01-31 10:19 | XMS_ITS | Encounter Summary ---
Author Organization [employer] [facility] Address [address] [place] [address] 7t [place] [address] Care Team Providers Care Equal Opportunity Officer Name Role Phone Unavailable Primary Care Provider Unavailabl e Reason for Visit * Reason Comments Med Refill Encounter Details Date Type Department Care Team (Late st Contact Info) Description 12/02/2023 Refill [facility] MEDICINE [address] [place] [address] Christianne John MD [address] [place] [address] Moderate persistent asthma, unspecified whether complicated Social [...] Description 02/27/2025 10:00 AM EDT Office Visit [facility] ADULT DENTAL [address] [place] [address] Moy Caldwell DDS [address] [place] [address] 07/25/2025 10:00 AM EDT Office Visit [facility] ADULT DENTAL [address] [place] [address] Johana Garcia [address] [place] [address] documented as of this encounter Visit Diagnoses Diagnosis Moderate persistent asthma, unspecified whether complicated documented in this encounter
--- OUTSIDE RECORDS SUMMARY | 2025-01-31 10:19 | XMS_ITS | Clinical Summary ---
Author Organization [employer] Address [address] [place] [address] 7t [place] [address] Care Team Providers Care Communications Associate Name Role Phone Unavailable Primary Care Provider [...] 08/10/20 22 Active Blood Glucose Monitoring Suppl (SpeakSoftyle [place] Lite) w/Device kit TEST BLOOD SUGAR THREE [...] by mouth at bed time. Active Creon 11775-69496 units capsule 10/21/19 23 Active pantoprazole (ProtoNix) [...] 23 Active ergocalciferol (Vitamin D2) 1.25 MG (80556 UT) capsule TAKE 1 CAPSULE BY MOUTH [...] Encounters Date Type Department Care Team Description 01/12/2025 9:00 AM EDT Office Visit [facility] [address] [place] [address] Johana Garcia Dental plaque (Primary Dx); Localized gingival recession, severe; Partially edentulous maxilla, unspecified edentulism class; Partially edentulous mandible, unspecified edentulism class 01/11/2025 9:00 AM EDT Office Visit [facility] [address] [facility] [place] [address] Johana Garcia Heart valve replaced (Primary Dx) 12/04/2024 9:00 AM EST Office Visit [facility] [address] [facility] [place] [address] Moy Caldwell DDS Partial edentulism, unspecified edentulism class (Primary Dx) 11/03/2024 11:00 AM EST Office Visit [facility] [address] [facility] [place] [address] Moy Caldwell, ARTS Partially edentulous maxilla, unspecified edentulism class (Primary [...] Sign Reading Time Taken Comments Blood Pressure 132/76 01/12/2025 9:25 AM EDT Pulse 68 12/02/2022 1:53 PM EST Temperature [...] Description 02/27/2025 10:00 AM EDT Office Visit [facility] [address] [place] [address] Moy Caldwell DDS [address] [place] [address] 07/25/2025 10:00 AM EDT Office Visit [facility] [address] [place] [address] Radha, Johana [address] [place] [address] Health Maintenance Due Date Last Done Comments [...] 06/08/1997 COVID-19 Vaccine ( - season) 2024 Dental Oral Exam 12/18/2024 06/19/2024, 12/02/2022 Dental X-Ray: Bitewings 06/20/2025 06/19/2024 Dental Prophylaxis 07/15/2025 01/12/2025, 1 , 12/02/2022 Tobacco Screening 01/12/2026 01/12/2025 Dental X-Ray: Full Mouth 06/20/2027 06/19/2024, 04/03 [...] Procedure Name Priority Date/Time Associated Diagnosis Comments CASE PRESENTATION, DETAILED AND EXTENSIVE TREATMENT PLANNING Routine 01/12/2025 9:00 AM EDT Dental plaque Localized gingival recession, severe Partially edentulous maxilla, unspecified edentulism class Partially edentulous mandible, unspecified edentulism class ORAL HYGIENE INSTRUCTIONS Routine 01/12/2025 9:00 AM EDT Dental plaque Localized gingival recession, severe Partially edentulous maxilla, unspecified edentulism class Partially edentulous mandible, unspecified edentulism class TOPICAL APPLICATION OF FLUORIDE VARNISH Routine 01/12/2025 9:00 AM EDT Dental plaque Localized gingival recession, severe Partially edentulous maxilla, unspecified edentulism class Partially edentulous mandible, unspecified edentulism class PROPHYLAXIS - ADULT Routine 01/12/2025 9 :00 AM EDT Dental plaque NO CHARGE VISIT Routine 01/11/2025 9:00 AM EDT WAX TRY IN Routine 12/04/2024 9:00 AM EST BITE REGISTRATION Routine 11/03/2024 11: 00 AM EST INTRAORAL - COMPLETE SERIES OF RADIOGRAPHIC IMAGES Routine 06/19/2024 10:00 AM EDT PERIODIC ORAL EVALUATION - ESTABLISHED PATIENT Routine 06/19/2024 10:00 AM EDT CLAIRE HISTORICAL HEMOGLOBIN A1C Routine 07/09/2022 10:40 AM EDT ZZZ HISTORICAL LIPID PANEL Routine 09/18/2020 1:18 PM EST from Last 3 Months or Most Recently Relevant to Health Maintenance Results * HEMOGLOBIN A1C (07/09/2022 10:40 AM EDT) Estimated Average Glucose 151 mg/dL [facility] Comment: eAG = Estimated average glucose which is %A1C expressed as average glucose, using the formula of the [id number] Average Glucose study (ADAG), Diabetes Care, Vol.31,#8, [...] 10:4 0 AM EDT us Historical Provider HISTORICAL/NON ORDERABLE LABS Final Result [facility] * (ABNORMAL) LIPID PANEL (09/18/2020 1:18 PM EST) Cholesterol 157 mg/dL [facility] Comment: Desirable Cholesterol: ?less than 200 mg/dL Borderline High Cholesterol: ??200-239 mg/dL High Cholesterol: ? greater than 239 mg/dL HDL Cholesterol 51 mg/dL [facility] Comment: Desirable HDL: ??greater than 40 mg/dL ?? Note: This HDL assay may give artificially ? low results in patients with liver disease. LDL Cholesterol Calculated 90 mg/dl [facility] Comment: Desirable LDL: ? less [...] Alanine Aminotransferase 14 0 - 31 U/L [facility] Albumin Level 3.7 3.5 - 5.0 g/dL [facility] Alkaline Phosphatase 120(H) 39 - 117 U/L [facility] Anion Gap 14 12 - [...] 38 [facility] Comment: NOTE: ??For -Greek individuals, multiply the result ?by . ?? Chronic Kidney Disease: ??Estimated GFR < [...] Historical Provider HISTORICAL/NON ORDERABLE LABS Final Result [facility] [address] from Last 3 Months or Most Recently Relevant to Health Maintenance Insurance [facility] S[employer]IOR [employer] OPTIONS (O D-SNP) DENTAL JOINT [facility] * Guarantor: Louis Montes Account Type Relation to Patient Date of Phone Billing Address Personal/Family Self [address] [place]
--- OUTSIDE RECORDS SUMMARY | 2025-01-31 10:19 | XMS_ITS | Encounter Summary ---
Author Organization [facility] Address [address] [place] [address] 7t [place] [address] Care Team Providers Care Glazier Supervisor Name Role Phone Marycarmen Quijano MD Primary Care Provider [phone] Reason for Visit * Reason Comments Med Refill Encounter Details Date Type Department Care Team ([facility] Contact Info) Description 04/15/2023 Refill [facility] [address] [place] [address] Marycarmen Quijano MD [address] [place] [address] Social History Tobacco Use Types Packs/Day Years [...] Upcoming Encounters Date Type Department Care Team ([facility] Contact Info) Description 02/27/2025 10:00 AM EDT Office Visit [facility] [address] [place] [address] Moy Caldwell DDS [address] [place] [address] 07/25/2025 10:00 AM EDT Office Visit [facility] [address] [place], [place] [phone] Radha, Johana [address] [place] [address] documented as of this encounter Visit Diagnoses Not on filedocumented in this encounter Care Teams Glazier Supervisor Relationship Specialty Start Date End Date Marycarmen Quijano MD [address] [place], [place] [phone] PCP - General Family Medicine 03/02/23 06/20/23 documented as of this encounter
== END 2025-01-31 10:08 | disposition home or self-care (01) ==
LOC: HO.HPS 09:33
PROVIDERS: PCP Internal Medicine; Visit Provider Hospitalist
DX: G47.33 Obstructive sleep apnea (adult) (pediatric) (principal); J45.40 Moderate persistent asthma, uncomplicated; I35.0 Nonrheumatic aortic (valve) stenosis; R06.09 Other forms of dyspnea; R07.9 Chest pain, unspecified
CPT/HCPCS: 99214; G2211

== ENCOUNTER 2025-01-31 09:32 | Outpatient (REF) | payer OTHER, SELFPAY ==
--- NOTE | ~2025-01-31 | XR_ITS ---
EXAMINATION: XR CHEST 2 VIEWS HISTORY: R07.9 - Chest pain, unspecified COMPARISON: Comparison is made with the prior examination dated 07/19/2024. FINDINGS: PA and lateral views of the chest are submitted. The lungs are expanded and clear. There is no pleural effusion, pneumothorax, or pulmonary vascular congestion. The heart is normal in size. 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 XR/XR chest 2V IMPRESSION: No acute cardiopulmonary abnormality. Electronically signed by: Farhad Patel MD 02/01/2025 10:19 AM EDT
[2025-01-31 10:52] LABS: MANUAL DIFF FLAG NO
[2025-01-31 11:06] LABS: Basophils Absolute Auto 0.1 X10*3/uL (0.0-0.2); Basophils Percent Auto 0.8 % (0-2); Eosinophils Absolute Auto 0.4 X10*3/uL (0.0-0.4); Eosinophils Percent Auto 5.1 % (0-4); Hematocrit 35.8 % (37.0-47.0); Hemoglobin 11.1 g/dl (12.0-16.0); Imm Gran Abs Auto 0.03 X10*3/uL (0.00-0.03); Imm Gran Pct Auto 0.3 % (0.0-0.4); Lymphocytes Absolute Auto 1.9 X10*3/uL (1.2-4.9); Lymphocytes Percent Auto 21.8 % (20-40); Mean Corpuscular Hemoglobin 24.8 pg (27.0-33.0); Mean Corpuscular Volume 80.1 fL (80.0-98.0); Mean Platelet Volume 9.1 fL (9.4-12.3); Monocytes Absolute Auto 0.7 X10*3/uL (0.1-1.2); Monocytes Percent Auto 8.1 % (2-11); Neutrophils Absolute Auto 5.5 x10*3/uL (2.0-8.3); Neutrophils Percent Auto 63.9 % (45-73); Platelet Count 372 X10*3/uL (160-400); Red Blood Count 4.47 X10*6/uL (4.20-5.50); Red Cell Distribution Width 14.6 % (11.0-16.0); White Blood Count 8.7 X10*3/uL (4.8-10.8)
--- OUTSIDE RECORDS SUMMARY | 2025-01-31 11:22 | XMS_ITS | Encounter Summary ---
Author Organization [facility] Address [address] [place] [address] 7t [place] [address] Care Team Providers Care Print Finishing Worker Name Role Phone Marycarmen Quijano MD Primary Care Provider [phone] Reason for Visit * Reason Comments Med Refill Encounter Details Date Type Department Care Team ([facility] Contact Info) Description 04/04/2023 Refill [facility] [address] [place] [address] Marycarmen Quijano MD [address] [place] [address] Social History Tobacco Use Types Packs/Day Years [...] Upcoming Encounters Date Type Department Care Team ([facility] Contact Info) Description 02/27/2025 10:00 AM EDT Office Visit [facility] [address] [place] [address] Moy Caldwell DDS [address] [place] [address] 07/25/2025 10:00 AM EDT Office Visit [facility] [address] [place], [place] [phone] Radha, Johana [address] [place] [address] documented as of this encounter Visit Diagnoses Not on filedocumented in this encounter Care Teams Print Finishing Worker Relationship Specialty Start Date End Date Marycarmen Quijano MD [address] [place], [place] [phone] PCP - General Family Medicine 03/02/23 06/20/23 documented as of this encounter
--- OUTSIDE RECORDS SUMMARY | 2025-01-31 11:22 | XMS_ITS | Encounter Summary ---
Author Organization [employer] Address [address] [place] [address] 7t [place] [address] Care Team Providers Care Regulatory Product Manager Name Role Phone Marycarmen Quijano MD Primary Care Provider [phone] Reason for Visit * Reason Comments Med Refill Encounter Details Date Type Department Care Team ([facility] Contact Info) Description 03/03/2023 Refill [facility] [address] [place], [place] [phone] Marycarmen Quijano MD [address] [place] [address] Primary hypertension Social History Tobacco Use Types [...] Description 02/27/2025 10:00 AM EDT Office Visit [facility] [address] [place] [address] Moy Caldwell DDS [address] [place] [address] 07/25/2025 10:00 AM EDT Office Visit [facility] [address] [place], [place] [phone] RadhaJohana [address] [place] [address] documented as of this encounter Visit Diagnoses Diagnosis Primary hypertension Unspecified essential hypertension documented in this encounter Care Teams Regulatory Product Manager Relationship Specialty Start Date End Date Marycarmen Quijano MD [address] [place] [address] PCP - General Family Medicine 03/02/23 06/20/23 documented as of this encounter
--- OUTSIDE RECORDS SUMMARY | 2025-01-31 11:22 | XMS_ITS | Encounter Summary ---
Author Organization [facility] Address [address] [place] [address] 7t [place] [address] Care Team Providers Care Tap Builder Name Role Phone Marycarmen Quijano MD Primary Care Provider [phone] Reason for Visit * Reason Comments Med Refill Encounter Details Date Type Department Care Team ([facility] Contact Info) Description 04/15/2023 Refill [facility] [address] [place] [address] Marycarmen Quijano MD [address] [place] [address] Social History Tobacco Use Types Packs/Day Years [...] Upcoming Encounters Date Type Department Care Team ([facility] Contact Info) Description 02/27/2025 10:00 AM EDT Office Visit [facility] [address] [place] [address] Moy Caldwell DDS [address] [place] [address] 07/25/2025 10:00 AM EDT Office Visit [facility] [address] [place], [place] [phone] Radha, Johana [address] [place] [address] documented as of this encounter Visit Diagnoses Not on filedocumented in this encounter Care Teams Tap Builder Relationship Specialty Start Date End Date Marycarmen Quijano MD [address] [place], [place] [phone] PCP - General Family Medicine 03/02/23 06/20/23 documented as of this encounter
--- OUTSIDE RECORDS SUMMARY | 2025-01-31 11:22 | XMS_ITS | Encounter Summary ---
Author Organization [employer] Address [address] [place] [address] 7t [place] [address] Care Team Providers Care Water Resource Specialist Name Role Phone Marycarmen Quijano MD Primary Care Provider [phone] Reason for Visit * Reason Comments Med Refill Encounter Details Date Type Department Care Team ([facility] Contact Info) Description 03/07/2023 Refill [facility] PEDS [address] [place], [place] [phone] Marycarmen Quijano MD [address] [place] [address] Social History Tobacco Use Types Packs/Day Years [...] Team ([facility] Contact Info) Description 02/27/2025 10:00 AM EDT Office Visit [facility] [address] [place] [address] Moy Caldwell DDS [address] [place] [address] 07/25/2025 10:00 AM EDT Office Visit [facility] [address] [place] [address] Johana Garcia [address] [place] [address] documented as of this encounter Visit Diagnoses Not on filedocumented in this encounter Care Teams Water Resource Specialist Relationship Specialty Start Date End Date Marycarmen Quijano MD [address] [place] [address] PCP - General Family Medicine 03/02/23 06/20/23 documented as of this encounter
--- OUTSIDE RECORDS SUMMARY | 2025-01-31 11:22 | XMS_ITS | Encounter Summary ---
Author Organization [employer] Address [address] [place] [address] 7t [place] [address] Care Team Providers Care Hvac Field Service Technician Name Role Phone Marycarmen Quijano MD Primary Care Provider [phone] Reason for Visit * Reason Comments Med Refill Encounter Details Date Type Department Care Team (Late Contact Info) Description 03/10/2023 Refill [facility] & PEDS [address] [place], [place] [phone] Marycarmen Quijano MD [address] [place], [place] [phone] Primary hypertension Social History Tobacco Use Types [...] Upcoming Encounters Date Type Department Care Team ([facility] Contact Info) Description 02/27/2025 10:00 AM EDT Office Visit [facility] ADULT DENTAL [address] [place] [address] Moy Caldwell DDS [address] [place], [place] [phone] 07/25/2025 10:00 AM EDT Office Visit [facility] [address] [place] [address] Johana Garcia [address] [place], [place] [phone] documented as of this encounter Visit Diagnoses Diagnosis Primary hypertension Unspecified essential hypertension documented in this encounter Care Teams Hvac Field Service Technician Relationship Specialty Start Date End Date Marycarmen Quijano MD [address] [place] [address] PCP - General Family Medicine 03/02/23 06/20/23 documented as of this encounter
--- OUTSIDE RECORDS SUMMARY | 2025-01-31 11:22 | XMS_ITS | Encounter Summary ---
Author Organization [employer] Address [address] [facility] 7t [place] [address] Care Team Providers Care Cherry Picker Operator Name Role Phone Marycarmen Quijano MD Primary Care Provider [phone] Reason for Visit * Reason Comments Med Refill Encounter Details Date Type Department Care Team ([facility] Contact Info) Description 04/12/2023 Refill [facility] [address] [place] [address] Jose Johnson MD [address] [place] [address] Social History Tobacco Use Types Packs/Day Years [...] Upcoming Encounters Date Type Department Care Team ([facility] Contact Info) Description 02/27/2025 10:00 AM EDT Office Visit [facility] [address] [place] [address] Moy Caldwell DDS [address] [place] [address] 07/25/2025 10:00 AM EDT Office Visit [facility] [address] [place], [place] [phone] Radha, Johana [address] [place] [address] documented as of this encounter Visit Diagnoses Not on filedocumented in this encounter Care Teams Cherry Picker Operator Relationship Specialty Start Date End Date Marycarmen Quijano MD [address] [place], [place] [phone] PCP - General Family Medicine 03/02/23 06/20/23 documented as of this encounter
--- OUTSIDE RECORDS SUMMARY | 2025-01-31 11:23 | XMS_ITS | Encounter Summary ---
Author Organization [facility] Address [address] [place] [address] 7t [place] [address] Care Team Providers Care Staff Command And Control Officer Name Role Phone Marycarmen Quijano MD Primary Care Provider [phone] Reason for Visit * Reason Comments Med Refill Encounter Details Date Type Department Care Team ([facility] Contact Info) Description 02/06/2023 Refill [facility] [address] [place] [address] Marycarmen Quijano MD [address] [place] [address] Social History Tobacco Use Types Packs/Day Years [...] Upcoming Encounters Date Type Department Care Team ([facility] Contact Info) Description 02/27/2025 10:00 AM EDT Office Visit [facility] [address] [place] [address] Moy Caldwell DDS [address] [place] [address] 07/25/2025 10:00 AM EDT Office Visit [facility] [address] [place], [place] [phone] Radha, Johana [address] [place] [address] documented as of this encounter Visit Diagnoses Not on filedocumented in this encounter Care Teams Staff Command And Control Officer Relationship Specialty Start Date End Date Marycarmen Quijano MD [address] [place], [place] [phone] PCP - General Family Medicine 03/02/23 06/20/23 documented as of this encounter
--- OUTSIDE RECORDS SUMMARY | 2025-01-31 11:23 | XMS_ITS | Encounter Summary ---
Author Organization [facility] Address [address] [place] [address] 7t [place] [address] Care Team Providers Care Custom Designer Name Role Phone Unavailable Primary Care Provider Unavailabl e Reason for Visit * Reason Comments Med Refill Encounter Details Date Type Department Care Team (Late st Contact Info) Description 11/29/2023 Refill [facility] [address] [place] [address] Christianne John MD [address] [place] [address] Moderate persistent asthma, unspecified whether complicated Social [...] Description 02/27/2025 10:00 AM EDT Office Visit [facility] [address] [place] [address] Moy Caldwell DDS [address] [place] [address] 07/25/2025 10:00 AM EDT Office Visit [facility] [address] [place] [address] Johana Garcia [address] [place] [address] documented as of this encounter Visit Diagnoses Diagnosis Moderate persistent asthma, unspecified whether complicated documented in this encounter
--- OUTSIDE RECORDS SUMMARY | 2025-01-31 11:23 | XMS_ITS | Encounter Summary ---
Author Organization [facility] [facility] Address [address] [place] [address] 7t [place] [address] Care Team Providers Care Renderer Name Role Phone Unavailable Primary Care Provider Unavailabl e Reason for Visit * Reason Comments Med Refill Encounter Details Date Type Department Care Team (Late Contact Info) Description 01/19/2024 Refill [facility] [address] [place] [address] Christianne John MD [address] [place] [address] Vitamin deficiency Social History Tobacco Use Types [...] Description 02/27/2025 10:00 AM EDT Office Visit [facility] ADULT DENTAL [address] [place], [place] [phone] Moy Caldwell DDS [address] [place] [address] 07/25/2025 10:00 AM EDT Office Visit [facility] ADULT DENTAL [address] [place] [address] Johana Garcia [address] [place] [address] documented as of this encounter Visit Diagnoses Diagnosis Vitamin deficiency Unspecified vitamin deficiency documented in this encounter
--- OUTSIDE RECORDS SUMMARY | 2025-01-31 11:23 | XMS_ITS | Encounter Summary ---
Author Organization [facility] Address [address] [place] [address] 7t [place] [address] Care Team Providers Care Director Of District Office Name Role Phone Marycarmen Quijano MD Primary Care Provider [phone] Marycarmen Quijano MD Primary Care Provider [phone] Encounter Details Date Type Department Care Team (Latest Contact Info) Description 06/16/2021 Abstract [facility] CONVERSIONS Dental, Provider, DDS Social History [...] Description 02/27/2025 10:00 AM EDT Office Visit [facility] ADULT DENT[facility] [address] [place] [address] Moy Caldwell DDS [address] [place] [address] 07/25/2025 10:00 AM EDT Office Visit [facility]ULT D[facility] [address] [place] [address] Johana Garcia [address] [place] [address] documented as of this encounter Visit Diagnoses Not on filedocumented in this encounter Care Teams Director Of District Office Relationship Specialty Start Date End Date Marycarmen Quijano MD [address] [place] [address] PCP - General Family Medicine 07/26/13 02/01/23 Marycarmen Quijano MD [address] [place] [address] PCP - General Family Medicine 03/02/23 06/20/23 documented as of this encounter
--- OUTSIDE RECORDS SUMMARY | 2025-01-31 11:23 | XMS_ITS | Encounter Summary ---
Author Organization [facility] Address [address] [place] [address] 7t [place] [address] Care Team Providers Care Road Contractor Name Role Phone Unavailable Primary Care Provider Unavailabl e Reason for Visit * Reason Comments Med Refill Encounter Details Date Type Department Care Team (Late st Contact Info) Description 12/01/2023 Refill [facility] [address] [place] [address] Christianne John MD [address] [place] [address] Moderate persistent asthma, unspecified whether complicated Social [...] Description 02/27/2025 10:00 AM EDT Office Visit [facility] [address] [place] [address] Moy Caldwell DDS [address] [place] [address] 07/25/2025 10:00 AM EDT Office Visit [facility] [address] [place] [address] Johana Garcia [address] [place] [address] documented as of this encounter Visit Diagnoses Diagnosis Moderate persistent asthma, unspecified whether complicated documented in this encounter
--- OUTSIDE RECORDS SUMMARY | 2025-01-31 11:23 | XMS_ITS | Encounter Summary ---
Author Organization [facility] Address [address] [place] [address] 7t [place] [address] Care Team Providers Care Supervising Airplane Pilot Name Role Phone Unavailable Primary Care Provider Unavailabl e Reason for Visit * Reason Comments Med Refill Encounter Details Date Type Department Care Team (Late st Contact Info) Description 12/02/2023 Refill [facility] [address] [place] [address] Christianne John MD [address] [place] [address] Moderate persistent asthma, unspecified whether complicated Social [...] Description 02/27/2025 10:00 AM EDT Office Visit [facility] [address] [place] [address] Moy Caldwell DDS [address] [place] [address] 07/25/2025 10:00 AM EDT Office Visit [facility] [address] [place] [address] Johana Garcia [address] [place] [address] documented as of this encounter Visit Diagnoses Diagnosis Moderate persistent asthma, unspecified whether complicated documented in this encounter
--- OUTSIDE RECORDS SUMMARY | 2025-01-31 11:23 | XMS_ITS | Encounter Summary ---
Author Organization [employer] Address [address] [place] [address] [address] [address] Care Team Providers Care Corporate Travel Manager Name Role Phone Marycarmen Quijano MD Primary Care Provider [phone] Marycarmen Quijano MD Primary Care Provider [phone] Reason for Visit * Reason Comments Med Refill Encounter Details Date Type Department Care Team (Late st Contact Info) Description 11/10/2022 Refill [facility] [address] [place], [place] [phone] Marycarmen Quijano MD [address] [place], [place] [phone] Social History Tobacco Use Types Packs/Day Years [...] Description 02/27/2025 10:00 AM EDT Office Visit [facility] ADULT DENTAL [address] [place] [address] Moy Caldwell DDS [address] [place], [place] [phone] 07/25/2025 10:00 AM EDT Office Visit [facility] ADULT DENTAL [address] [place] [address] Johana Garcia [address] [place] [address] documented as of this encounter Visit Diagnoses Not on filedocumented in this encounter Care Teams Corporate Travel Manager Relationship Specialty Start Date End Date Marycarmen Quijano MD [address] [place] [address] PCP - General Family Medicine 07/26/13 02/01/23 Marycarmen Quijano MD [address] [place] [address] PCP - General Family Medicine 03/02/23 06/20/23 documented as of this encounter
--- OUTSIDE RECORDS SUMMARY | 2025-01-31 11:23 | XMS_ITS | Clinical Summary ---
Author Organization [facility] 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 Chronic [...] arteriosclerosis 07/11/2012 Overview (12/07/2022): Cath 01/2010 at [facility] showed LCx 80% and ostial LAD 80% [...] Visit [facility] [address] [address] Alycia Rios ARNP Stage 3b [...] [facility] [address] [place] [address] Dominick Reece MD [address] [facility] [address] [place] [id number] Health Maintenance Due Date Last Done Comments [...] A1C 8.5(H) <5 % PVNMA Comments From [facility] PVNMA Creatinine 1.35(H) 0.70 - 1.30 mg/dl PVNMA Potassium 4.5 3.5 - 5.1 mmol/L PVNMA Calcium 8.8 8.4 - 10.2 mg/dl PVNMA eGFR Non- 38(L) >60 ml/min PVNMA 09/18/2020 us Rtama Conversion LAB PIRMAXBLSE-[id number]-[id number] LICITED RESULTS Final Result PVNMA from Last 3 Months or Most Recently Relevant to Health Maintenance Insurance [facility] ([id number]) [facility] ([id number]) Care Teams Bag Machine Operator Helper Relationship Specialty Start Date End Date Marycarmen Quijano MD [address] [place] [address] PCP - General 10/14/20
--- OUTSIDE RECORDS SUMMARY | 2025-01-31 11:23 | XMS_ITS | Encounter Summary ---
Author Organization [employer] [facility] Address [address] [place] [address] 7t [place] [address] Care Team Providers Care Anti Tank Missileman Name Role Phone Unavailable Primary Care Provider Unavailabl e Reason for Visit * Reason Comments Med Refill Encounter Details Date Type Department Care Team (Late st Contact Info) Description 11/24/2023 Refill [facility] MEDICINE 230 [place] [address] Christianne John MD 230 [place] [address] Moderate persistent asthma, unspecified whether complicated Social [...] 02/27/2025 10:00 AM EDT Office Visit [facility] ADULT DENTAL 230 [place] [address] Moy Caldwell DDS [address] [place] [address] 07/25/2025 10:00 AM EDT Office Visit [facility] ADULT DENTAL [address] [place] [address] Johana Garcia [address] [place] [address] documented as of this encounter Visit Diagnoses Diagnosis Moderate persistent asthma, unspecified whether complicated documented in this encounter
--- OUTSIDE RECORDS SUMMARY | 2025-01-31 11:23 | XMS_ITS | Encounter Summary ---
Author Organization [employer] [facility] Address [address] [place] [address] 7t [place] [address] Care Team Providers Care Compliance Clerk Name Role Phone Marycarmen Quijano MD Primary Care Provider Reason for Visit * Reason Comments Med Refill Encounter Details Date Type Department Care Team ([facility] Contact Info) Description 04/15/2023 Refill [facility] MEDICINE [address] [place] [address] Marycarmen Quijano MD 230 [place] [address] Social History Tobacco Use Types Packs/Day Years [...] Upcoming Encounters Date Type Department Care Team ([facility] Contact Info) Description 02/27/2025 10:00 AM EDT Office Visit [facility] ADULT DENTAL 230 [place] [address] Moy Caldwell DDS [address] [place] [address] 07/25/2025 10:00 AM EDT Office Visit [facility] ADULT DENTAL [address] [place], [place] [phone] Radha, Johana [address] [place] [address] documented as of this encounter Visit Diagnoses Not on filedocumented in this encounter Care Teams Compliance Clerk Relationship Specialty Start Date End Date Marycarmen Quijano MD 230 [place], [place] [phone] PCP - General Family Medicine 03/02/23 06/20/23 documented as of this encounter
--- OUTSIDE RECORDS SUMMARY | 2025-01-31 11:23 | XMS_ITS | Clinical Summary ---
Author Organization [employer] Address [address] [place] [address] 7t [place] [address] Care Team Providers Care Snake Charmer Name Role Phone Unavailable Primary Care Provider [...] 08/10/20 22 Active Blood Glucose Monitoring Suppl (allyDVMyle [place] Lite) w/Device kit TEST BLOOD SUGAR THREE [...] by mouth at bed time. Active Creon 37052-29581 units capsule 10/21/19 23 Active pantoprazole (ProtoNix) [...] 23 Active ergocalciferol (Vitamin D2) 1.25 MG (99202 UT) capsule TAKE 1 CAPSULE BY MOUTH [...] Description 01/12/2025 9:00 AM EDT Office Visit [facility] [address] [place] [address] Johana Garcia Dental plaque (Primary Dx); Localized gingival recession, severe; Partially edentulous maxilla, unspecified edentulism class; Partially edentulous mandible, unspecified edentulism class 01/11/2025 9:00 AM EDT Office Visit [facility] 230 [place] [address] Johana Garcia Heart valve replaced (Primary Dx) 12/04/2024 9:00 AM EST Office Visit [facility] 230 [place] [address] Moy Caldwell DDS Partial edentulism, unspecified edentulism class (Primary Dx) 11/03/2024 11:00 AM EST Office Visit [facility] 230 [place] [address] Moy Caldwell, ARTS Partially edentulous maxilla, unspecified [...] Description 02/27/2025 10:00 AM EDT Office Visit [facility]ULT [facility] [address] [place] [address] Moy Caldwell DDS [address] [place] [address] 07/25/2025 10:00 AM EDT Office Visit [facility]ULT [facility] [address] [place] [address] Radha, Johana [address] [place] [address] Health Maintenance Due Date Last Done Comments [...] average glucose, using the formula of the N6H-Fagewnp Average Glucose study (ADAG), Diabetes Care, Vol.31,#8, [...] [facility] Comment: NOTE: ??For -Serbian individuals, multiply the result ?by . ?? [...] [facility] [address] from Last 3 Months or Most Recently Relevant to Health Maintenance Insurance [facility] [employer] OPT[employer] (O D-SNP) [facility] * Guarantor: Louis Montes Account Type Relation to Patient Date of Phone Billing Address Personal/Family Self [address] [facility] [address] [place]
[2025-01-31 11:43] LABS: Erythrocyte Sedimentation Rate 59 MM/HR (0-20)
[2025-01-31 11:47] LABS: Alanine Aminotransferase 22 U/L (0-31); Albumin Level 3.4 g/dL (3.5-5.0); Alkaline Phosphatase 159 U/L (39-117); Anion Gap 12 (12-20); Aspartate Amino Transferase 26 U/L (5-31); Bilirubin Direct 0.1 mg/dL (0.0-0.5); Bilirubin Total 0.3 mg/dL (0.0-1.0); Blood Urea Nitrogen 24 mg/dL (9-16); Calcium 9.4 mg/dL (8.4-10.2); Carbon Dioxide 24 mmol/L (22-29); Chloride 109 mmol/L (96-108); Estimated Glomerular Filt Rate 41; Glucose Random 111 mg/dL (60-115); Iron 42 mcg/dL (30-160); Percent Iron Saturation 20 % (15-50); Potassium 4.3 mmol/L (3.3-5.1); Sodium 141 mmol/L (135-145); Total Iron Binding Capacity 206 mcg/dL (228-428); Total Protein 6.8 g/dL (6.5-8.0); Unsaturated Iron Binding 164 ug/dL
[2025-01-31 11:58] LABS: Ferritin 179 ng/mL (10-250)
[2025-02-01 15:14] LABS: Calcium, Ionized 5.3 mg/dL (4.7-5.5)
== END 2025-01-31 09:33 | disposition home or self-care (01) ==
LOC: HO.XRAY 09:32
PROVIDERS: Student in an Organized Health Care Education/Training Program; PCP Internal Medicine; Visit Provider Hospitalist
DX: R06.09 Other forms of dyspnea (principal); M54.9 Dorsalgia, unspecified; E21.3 Hyperparathyroidism, unspecified; R07.9 Chest pain, unspecified; E66.01 Morbid (severe) obesity due to excess calories; J45.40 Moderate persistent asthma, uncomplicated; I35.0 Nonrheumatic aortic (valve) stenosis; Z95.2 Presence of prosthetic heart valve
CPT/HCPCS: 36415; 71046; 80048; 80076; 82306; 82330; 82728; 83540; 83970; 84100; 85025; 85652; 99212

== ENCOUNTER → 2025-01-31 10:50 | Outpatient (BNV) | payer OTHER, SELFPAY | PROVIDERS: PCP Internal Medicine; Visit Provider Radiology Diagnostic Radiology | DX: R07.9 Chest pain, unspecified (principal) | CPT/HCPCS: 71046 ==

== ENCOUNTER 2025-02-12 10:17 | Outpatient (REF) | payer OTHER, SELFPAY ==
--- NOTE | ~2025-02-12 | XR_ITS ---
EXAMINATION: XR BILATERAL HIPS WITH AP PELVIS CLINICAL INFORMATION: pain in left and right hip COMPARISON: None available. TECHNIQUE: AP view of the pelvis and single views of each hip were obtained. FINDINGS: There is sclerosis along the articular surface of the acetabulum and femoral head without seated subchondral cyst formation and asymmetric joint space narrowing. No acute cortical disruption or malalignment. Degenerative changes in the facets disorders and sacroiliac joints. Vascular calcifications. No lytic or blastic lesions. XR/XR hips LINDA min 3V IMPRESSION: Moderate osteoarthrosis, both hips. Atherosclerosis disease, peripheral. Electronically signed by: Freeman Newton MD 02/12/2025 11:48 AM EDT
--- NOTE | ~2025-02-12 | XR_ITS ---
EXAMINATION: XR LUMBOSACRAL SPINE CLINICAL INFORMATION: M54.50 - Low back pain, unspecified COMPARISON: July 19, 2024. TECHNIQUE: Three views of the lumbosacral spine. FINDINGS: Marginal osteophyte formation and endplate sclerosis decreased intervertebral disc height at multiple levels more pronounced at L4-5. 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 No acute cortical disruption. Vascular calcifications throughout the aorta mesenteric arteries and splenic artery. Probable old traumatic deformity at the sacrococcyx junction. XR/XR lumbar spine 2-3V IMPRESSION: Multilevel thoracolumbar spondylosis. Grade 1 anterolisthesis L5-S1 secondary to spondylolysis pars interarticularis and likely degenerative. Atherosclerosis disease. Electronically signed by: Freeman Newton MD 02/12/2025 11:42 AM EDT
--- OUTSIDE RECORDS SUMMARY | 2025-02-12 10:49 | XMS_ITS ---
Author Organization [facility] Address [address] [place] [address] Care Team Providers Care Accounts Payable Specialist Name Role Phone Jaime VORA, Shelby Primary Care Provider Unavail able Randy Leal Unavailable [phone] REASON FOR VISIT buy Small Plantar Fasc Sleeve Encounters Encounter Location Date Provider Diagnosis [facility] [address] [place] [address] 12/26/2024 Randy Leal Plan Of Treatment Next Appt Details Provider Name:Randy Leal , 03/27/2025 09:30:00 AM, [address] [place], [address], Progress Notes * Katherine DIASDOB: (79 yo F)Acc No.[id number]:12/26/2024 Patient:?ARUNKatherine :1945???Age:79 Y???Sex:Female Address:[address] [place], [address] * true * Date:? Generated for Cotyi emmie/Rolando/eTransmitting on:?02/12/2025 10:49 AM EDT
--- OUTSIDE RECORDS SUMMARY | 2025-02-12 10:49 | XMS_ITS | Encounter Summary ---
Author Organization [employer] Address [address] [place] [address] 7t [place] [address] Care Team Providers Care Traveling Operator Name Role Phone Marycarmen Quijano MD Primary Care Provider [phone] Reason for Visit * Reason Comments Med Refill Encounter Details Date Type Department Care Team ([facility] Contact Info) Description 03/07/2023 Refill [facility] PEDS [address] [place], [place] [phone] Marycarmen Quijano MD [address] [place], [place] [phone] Social History Tobacco Use Types Packs/Day Years [...] Upcoming Encounters Date Type Department Care Team ([facility] Contact Info) Description 02/27/2025 10:00 AM EDT Office Visit [facility] ADULT DENTAL [address] [place], [place] [phone] Moy Caldwell DDS [address] [place], [place] [phone] 07/25/2025 10:00 AM EDT Office Visit [facility] ADULT DENTAL 230 [place] [address] Santos Garciaaris 230 [place] [address] documented as of this encounter Visit Diagnoses Not on filedocumented in this encounter Care Teams Traveling Operator Relationship Specialty Start Date End Date Marycarmen Quijano MD [address] [place] [address] PCP - General Family Medicine 03/02/23 06/20/23 documented as of this encounter
--- OUTSIDE RECORDS SUMMARY | 2025-02-12 10:49 | XMS_ITS | Encounter Summary ---
Author Organization [employer] Address [address] [place] [address] 7t [place] [address] Care Team Providers Care Environmental Attorney Name Role Phone Marycarmen Quijano MD Primary Care Provider Reason for Visit * Reason Comments Med Refill Encounter Details Date Type Department Care Team ([facility] Contact Info) Description 03/10/2023 Refill [facility] CH[facility] MED & PEDS [address] [place], [place] [phone] Marycarmen Quijano MD 230 [place] [address] Primary hypertension Social History Tobacco Use Types [...] Description 02/27/2025 10:00 AM EDT Office Visit [facility] ADULT DENTAL 230 [place], [place] [phone] Moy Caldwell DDS 230 [place], [place] [phone] 07/25/2025 10:00 AM EDT Office Visit [facility] ADULT DENTAL [address] [place] [address] Johana Garcia 230 [place], [place] [phone] documented as of this encounter Visit Diagnoses Diagnosis Primary hypertension Unspecified essential hypertension documented in this encounter Care Teams Environmental Attorney Relationship Specialty Start Date End Date Marycarmen Quijano MD [address] [place] [address] PCP - General Family Medicine 03/02/23 06/20/23 documented as of this encounter
--- OUTSIDE RECORDS SUMMARY | 2025-02-12 10:49 | XMS_ITS | Patient Health Record ---
Author Organization [facility] Address [address] [place] [address] Care Team Providers Care Hardware Test Engineer Name Role Phone Jaime VORA, Shelby Primary Care Provider Unavail able Randy Leal Unavailable [phone] Allergies Allergen (clinical drug ingredient) Drug/Non Drug [...] Problem Acquired hammer toe of right foot (0520905107671701 ) Other hammer toe(s) (acquired), right foot (M20.41) Active confirmed Problem Acquired hammer toe of left foot (6497964748818880 ) Other hammer toe(s) (acquired), left foot (M20.42) Active confirmed Problem Polyneuropathy due to type 2 diabetes mellitus (740690888) Type 2 diabetes mellitus with diabetic polyneuropathy (E11.42) Active confirmed Vital Signs Blood pressure diastolic 70 mm Hg 12/26/2024 Height 4 ft 9 in in 12/26/2024 Blood pressure systolic 120 mm Hg 12/26/2024 Weight 192 lbs 12/26/2024 BMI 41.54 kg/m2 12/26/2024 Procedures Procedure Date Ordered Date Performed Result Body Sit e 30638-USOPUMS NAIL, 6 OR MORE 03/17/2024 N/A 17335-XTXB SKIN LESIONS, 2 TO 4 03/17/2024 N/A 82837-LDDNYOF NAIL, 6 OR MORE 06/16/2024 N/A 70594-HGIH SKIN LESIONS, 2 TO 4 06/16/2024 N/A 34940-QFCFXXG NAIL, 6 OR MORE 12/26/2024 N/A 12440-Raeoyrqv Plate 12/26/2024 N/A 04575-RKOQ SKIN LESIONS, 2 TO 4 12/26/2024 N/A Encounters Encounter Location Date Provider Diagnosis [facility] [address] [place] [address] 03/17/2024 Randy Leal Type 2 diabetes mellitus with diabetic polyneuropathy E11.42 ; Tinea unguium B35.1 ; Other hammer toe(s) (acquired), right foot M20.41 and Other hammer toe(s) (acquired), left foot M20.[address] [address] 06/16/2024 Randy Leal Type 2 diabetes mellitus with diabetic polyneuropathy E11.42 and Tinea unguium B35.[address] [address] 12/26/2024 Randy Leal Type 2 diabetes mellitus with diabetic polyneuropathy E11.42 ; Tinea unguium B35.1 ; Other hammer toe(s) (acquired), right foot M20.41 ; Other hammer toe(s) (acquired), left foot M20.42 and Subungual hematoma of left foot, initial encounter S90.222A [address] [address] 09/19/2024 Randy Leal [address] [address] 12/26/2024 Randy Leal Assessments Encounter Date Diagnosis [...] Treatment Pending Test Test Name Order Date 77955-XFCXCSQ NAIL, 6 OR MORE 03/17/2024 30582-BOPNBSA NAIL, 6 OR MORE 06/16/2024 03367-ZVODUDV NAIL, 6 OR MORE 12/26/2024 75812-Uqjyuprt Plate 12/26/2024 49909-TCHO SKIN LESIONS, 2 TO 4 12/27/19 62480-QBHD SKIN LESIONS, 2 TO 4 06/16/20 48242-KPIL SKIN LESIONS, 2 TO 4 03/17/20 Next Appt Details Provider Name:Randy Ihsan MayersMel , 03/27/2025 09:30:00 AM, [address] [place] [address], [phone], Insurance Providers Payer Name Payer Address Payer Phone Subscriber Number Group Number Insured Name Patient Relationship to Insured Coverage Start Date Coverage End Date [facility] [employer] Claims [address] [place], [place] [phone] [id number] Katherine Jamil Self - patient is the insured Medical (General) History Medical History History ICD Code Anxiety Arthritis asthma Back,Hip,and Knee pain CAD (Cholesterol) Cataracts Depression Diabetic Heart disease High blood pressure Kidney disease Lung disease Numbness Poor circulation Reflux ( GERD) sinusitis Vascular phlebitis (clots) Chicken pox Replacement Heart Valves Transfusions Surgical History Surgery Date(Month/Year)
--- OUTSIDE RECORDS SUMMARY | 2025-02-12 10:49 | XMS_ITS | Encounter Summary ---
Author Organization [employer] Address [address] [facility] 7t [place] [address] Care Team Providers Care Hospice Social Worker Name Role Phone Marycarmen Quijano MD Primary Care Provider [phone] Reason for Visit * Reason Comments Med Refill Encounter Details Date Type Department Care Team ([facility] Contact Info) Description 04/12/2023 Refill [facility] [address] [place] [address] Jose Johnson MD 230 [place] [address] Social History Tobacco Use Types Packs/Day Years [...] ([facility] Contact Info) Description 02/27/2025 10:00 AM EDT Office Visit [facility] ADULT DENTAL [address] [place] [address] Moy Caldwell DDS [address] [place] [address] 07/25/2025 10:00 AM EDT Office Visit [facility] ADULT DENTAL [address] [place] [address] RadhaJohana [address] [place] [address] documented as of this encounter Visit Diagnoses Not on filedocumented in this encounter Care Teams Hospice Social Worker Relationship Specialty Start Date End Date Marycarmen Quijano MD 230 [place] [address] PCP - General Family Medicine 03/02/23 06/20/23 documented as of this encounter
--- OUTSIDE RECORDS SUMMARY | 2025-02-12 10:49 | XMS_ITS | Encounter Summary ---
Author Organization [employer] Address [address] [place] [address] 7t [place] [address] Care Team Providers Care Integration Director Name Role Phone Marycarmen Quijano MD Primary Care Provider [phone] Reason for Visit * Reason Comments Med Refill Encounter Details Date Type Department Care Team ([facility] Contact Info) Description 04/04/2023 Refill [facility] MEDICINE [address] [place], [place] [phone] Marycarmen Quijano MD [address] [place], [place] [phone] Social History Tobacco Use Types Packs/Day Years [...] Date Type Department Care Team ([facility] Contact Info) Description 02/27/2025 10:00 AM EDT Office Visit [facility] ADULT DENTAL 230 [place] [address] Moy Caldwell DDS [address] [place] [address] 07/25/2025 10:00 AM EDT Office Visit [facility] ADULT DENTAL [address] [place] [address] RadhaJohana 230 [place] [address] documented as of this encounter Visit Diagnoses Not on filedocumented in this encounter Care Teams Integration Director Relationship Specialty Start Date End Date Marycarmen Quijano MD [address] [place] [address] PCP - General Family Medicine 03/02/23 06/20/23 documented as of this encounter
--- OUTSIDE RECORDS SUMMARY | 2025-02-12 10:49 | XMS_ITS | Encounter Summary ---
Author Organization [employer] Address [address] [place] [address] 7t [place] [address] Care Team Providers Care Medical Information Officer Name Role Phone Marycarmen Quijano MD Primary Care Provider [phone] Reason for Visit * Reason Comments Med Refill Encounter Details Date Type Department Care Team ([facility] Contact Info) Description 04/15/2023 Refill [facility] [address] [place], [place] [phone] Marycarmen Quijano MD [address] [place], [place] [phone] Social History Tobacco Use Types Packs/Day Years [...] Care Team ([facility] Contact Info) Description 02/27/2025 10:00 AM EDT [facility] [address] [place] [address] Moy Caldwell DDS [address] [place] [address] 07/25/2025 10:00 AM EDT Office Visit [facility] [address] [place] [address] RadhaJohana [address] [place] [address] documented as of this encounter Visit Diagnoses Not on filedocumented in this encounter Care Teams Medical Information Officer Relationship Specialty Start Date End Date Marycarmen Quijano MD [address] [place] [address] PCP - General Family Medicine 03/02/23 06/20/23 documented as of this encounter
--- OUTSIDE RECORDS SUMMARY | 2025-02-12 10:49 | XMS_ITS | Encounter Summary ---
Author Organization [employer] Address [address] [place] [address] 7t [place] [address] Care Team Providers Care Esthetician Makeup Artist Name Role Phone Marycarmen Quijano MD Primary Care Provider [phone] Reason for Visit * Reason Comments Med Refill Encounter Details Date Type Department Care Team ([facility] Contact Info) Description 02/06/2023 Refill [facility] MEDICINE [address] [place], [place] [phone] Marycarmen Quijano MD [address] [place], [place] [phone] Social History Tobacco Use Types Packs/Day Years [...] Upcoming Encounters Date Type Department Care Team ([facility] Contact Info) Description 02/27/2025 10:00 AM EDT Office Visit [facility] ADULT DENTAL [address] [place] [address] Moy Caldwell DDS [address] [place] [address] 07/25/2025 10:00 AM EDT Office Visit [facility] ADULT DENTAL [address] [place] [address] RadhaJohana 230 [place] [address] documented as of this encounter Visit Diagnoses Not on filedocumented in this encounter Care Teams Esthetician Makeup Artist Relationship Specialty Start Date End Date Marycarmen Quijano MD [address] [place] [address] PCP - General Family Medicine 03/02/23 06/20/23 documented as of this encounter
--- OUTSIDE RECORDS SUMMARY | 2025-02-12 10:49 | XMS_ITS | Encounter Summary ---
Author Organization [employer] Address [address] [place] [address] 7t [place] [address] Care Team Providers Care Car Pick Up Driver Name Role Phone Marycarmen Quijano MD Primary Care Provider [phone] Reason for Visit * Reason Comments Med Refill Encounter Details Date Type Department Care Team ([facility] Contact Info) Description 03/03/2023 Refill [facility] MED [facility] PEDS [address] [place], [place] [phone] Marycarmen Quijano MD [address] [place] [address] Primary hypertension Social History Tobacco Use Types [...] Upcoming Encounters Date Type Department Care Team ([facility] Contact Info) Description 02/27/2025 10:00 AM EDT Office Visit [facility] ADULT DENTAL [address] [place] [address] Moy Caldwell DDS [address] [place] [address] 07/25/2025 10:00 AM EDT Office Visit [facility] ADULT DENTAL [address] [place], [place] [phone] RadhaJohana [address] [place] [address] documented as of this encounter Visit Diagnoses Diagnosis Primary hypertension Unspecified essential hypertension documented in this encounter Care Teams Car Pick Up Driver Relationship Specialty Start Date End Date Marycarmen Quijano MD [address] [place] [address] PCP - General Family Medicine 03/02/23 06/20/23 documented as of this encounter
--- OUTSIDE RECORDS SUMMARY | 2025-02-12 10:49 | XMS_ITS | Clinical Summary ---
Author Organization [facility] Address [address] [address] Phone Care Team Providers Care Technical Consultant Name Role Phone Marycarmen Quijano MD Primary Care Provider [phone] Allergies Active Allergy Reactions Criticality Noted Date [...] day Active ergocalciferol (VITAMIN D-2) 1.25 MG (50336 UT) capsule Take 1 capsule by mouth [...] failure 01/28/2021 Atherosclerotic heart diseas e of [place] coronary artery without angina pectoris 01/28/2021 Chronic [...] arteriosclerosis 07/11/2012 Overview (12/07/2022): Cath 01/2010 at [facility] showed LCx 80% and [...] Date Resolved Date Morbid obesity 02/28/2021 05/13/2021 Immunizations Immunization Administration Dates Next Due Hepatitis [...] Visit [facility] [address] [place] [address] Dominick Reece MD [address] [facility] [address] [place] [address] Health Maintenance Due Date Last Done Comments [...] A1C 8.5(H) <5 % PVNMA Comments From [facility] PVNMA Creatinine 1.35(H) 0.70 - 1.30 mg/dl PVNMA Potassium 4.5 3.5 - 5.1 mmol/L PVNMA Calcium 8.8 8.4 - 10.2 mg/dl PVNMA eGFR Non- 38(L) >60 ml/min PVNMA 09/18/2020 us Rtama Conversion LAB [id number] LICITED RESULTS Final Result PVNMA from Last 3 Months or Most Recently Relevant to Health Maintenance Insurance [facility] ([id number]) YASMIN FRANCO [id number] [facility] ([id number]) YASMIN FRANCO [phone] Care Teams Technical Consultant Relationship Specialty Start Date End Date Marycarmen Quijano MD [address] [place] [address] PCP - General 10/14/20
--- OUTSIDE RECORDS SUMMARY | 2025-02-12 10:50 | XMS_ITS | Data Portability ---
Author Organization [employer] [facility], [place] [facility] Address [address] [place] [address] Care Team Providers Care Gas System Operator Name Role Phone HIM CCA OTHER Assessment Encounter Date Assessment Date Assessment LastModified by Organization Details LastModified Time 04/08/2023 04/08/2023 77 YOF with CHF, COPD recent hospitalization being seen for report of low 02 sat at home in the 80s, On anesthesiologist physician exam sat 91% on 2L pt in [...] follow up w pcp in 1 week [email or web address] Not available 09/18/2024 20:08:58 Plan of Treatment Reminders Order Date Submit Date Provider Last Modified By Organization Details Last Modified Time Details Appointments None recorded. Lab rapid SARS CoV 2 Ag, QL IA, respiratory specimen 2023 024 [facility], [address] [place] [address], [id number] 4 09:06:35 rapid flu (A+B) 2023 024 [facility], [address] [place] [address], [id number] 4 09:06:54 CBC w/ auto diff 2021 022 [place] [facility] (Centralized Electronic Ordering - All Locations), Patient Can Go To The Location Of Their Choice, [address] 2 00:05:50 CMP, serum or plasma 052021 kemal [facility] (Centralized Electronic Ordering - All Locations), Patient Can Go To The Location Of Their Choice, [address] 19:37:00 unlisted lab - urinalysis w/reflex culture 2021 [place] [facility] (Centralized Electronic Ordering - All Locations), Patient Can Go To The Location Of Their Choice, [address] 01:53:39 cmp, whole blood + gl[facility] [address] [facility] [place], [place] [address]ed, [address] [place] [address], [id number] 16:24:03 urinalysis, dipstick [facility] [place] [address], [address] [place] [address], [id number] 16:24:43 Referral None recorded. Procedures None recorded. Surgeries None recorded. Imaging None recorded. Medication Orders prednisone 10 mg tablet 2023 [facility], [address] [place] [address], [id number], 12:30:23 azithromyci n 250 mg tablet 2023 024 [facility], [address] [place] [address], [id number], 4 12:30:23 azithromyci n 250 mg tablet 2023 024 [email or web address] [facility], [address] [place] [address], [id number], 4 20:08:15 prednisone 20 mg tablet [id number] [facility], [address] [place] [address], [id number], 4 20:08:15 ipratropium 0.5 mg-albutero l 3 mg (2.5 mg base)/3 mL nebulizatio n soln 2023 024 [id number] [facility], [address] [place] [address], [id number], 20:08:15 Patient TargetsNo targets recorded. Patient InstructionsNo [...] Go To The Location Of Their Choice, [facility] 02/17/2022 01:53:39 02/17/20 22 02/17/2022 UA W/REF REGAN CULTU RE culture indication CULTUR E NOT INDICA NATALIE Not Available [facility] (Centralized Electronic Ordering - All Locations) Patient Can Go To The Location Of Their Choice, [facility] 02/17/2022 01:53:39 02/17/20 22 02/16/2022 urina lysis , dipst ick Leukocytes neg Not Available [facility] - [facility] [address] [place] [address], [id number] 02/16/2022 16:23:39 02/17/20 22 02/16/2022 urina lysis , dipst ick Nitrite negati ve Not Available [facility] - [facility] [address] [place] [address], [id number] 02/16/2022 16:23:39 02/17/20 22 02/16/2022 urina lysis , dipst ick Protein 4+ Not Available Main - [facility] [address], [address] 02/16/2022 16:23:39 02/17/20 22 02/16/2022 urina lysis , dipst ick Ketone 2+ Not Available Main - [facility] [address], [address] 02/16/2022 16:23:39 02/17/20 22 02/16/2022 urina lysis , dipst ick Glucose negati ve Not Available [facility] - [facility] [address] [place] [address], [address] 02/16/2022 16:23:39 02/17/20 22 02/16/2022 cmp, whole blood + picco lo ALB 2.8 Not Available Main - [facility] [address], [address] 02/16/2022 16:22:48 02/17/20 22 02/16/2022 cmp, whole blood + picco lo ALP 114 Not Available Main - [facility] [address], [address] 02/16/2022 16:22:48 02/17/20 22 02/16/2022 cmp, whole blood + picco lo ALT 12 Not Available Main - [facility] [address], [address] 02/16/2022 16:22:48 02/17/20 22 02/16/2022 cmp, whole blood + picco lo AST 18 Not Available Main - [facility] [address], [address] 02/16/2022 16:22:48 02/17/20 22 02/16/2022 cmp, whole blood + picco lo BUN 17 Not Available Main - [facility] [address], [address] 02/16/2022 16:22:48 02/17/20 22 02/16/2022 cmp, whole blood + picco lo Ca 9.8 Not Available Main - [facility] [address], [address] 02/16/2022 16:22:48 02/17/20 22 02/16/2022 cmp, whole blood + picco lo CI- normal Not Available Main - [facility] [address], [address] 02/16/2022 16:22:48 02/17/20 22 02/16/2022 cmp, whole blood + picco lo CRE 1.3 Not Available Main - [facility] [address], [address] 02/16/2022 16:22:48 02/17/20 22 02/16/2022 cmp, whole blood + picco lo GLU 326 Not Available Main - [facility] [address], [address] 02/16/2022 16:22:48 02/17/20 22 02/16/2022 cmp, whole blood + picco lo K+ 3.8 Not Available Main - [facility] [address], [address] 02/16/2022 16:22:48 02/17/20 22 02/16/2022 cmp, whole blood + picco lo Na+ 138 Not Available Main - [facility] [address], [address] 02/16/2022 16:22:48 02/17/20 22 02/16/2022 cmp, whole blood + picco lo tCO2 27 Not Available Main - [facility] [address], [address] 02/16/2022 16:22:48 Result Notes None recorded. Medical Equipment None Reported. Allergies Allergen ID Allergen Name Allergen Category Reaction Reaction Severity Criticality Documentation Date Start Date Code Code System Note Provider Name and Address Organization Details Recorded Time 15524 Motrin medicatio n Not available Not available Not available 09/18/202467968 8 RxNorm Not Available [facility] - production 4 15:17:42 51197 acetamino phen / oxycodone medicatio n Not available Not available Not available 09/18/2024 51093 3 RxNorm Not Available [facility] - production 4 15:17:42 40970 tramadol medicatio n Not available Not available Not available 09/18/2024 22287 RxNorm Not Available [facility] - production 4 [...] Not Available No t Available Dexcom G7 Vehicle Glass Technician USE DIRECTED active Not Available Not Available [...] L/min 146 mm[Hg] 65 mm[Hg] Not Available [facility] 3 16:22:45 Date Recorded Heart rate Oxygen saturation Oxygen saturation in Arterial blood by Pulse oximetry Body temperature Respiratory rate Systolic blood pressure Diastolic blood pressure Provider Name and Address Organization Details Last Updated DateTime 4 78 /min 93 % 93 % 97.1 [degF] 16 /min 137 mm[Hg] 76 mm[Hg] Not Available [facility] 4 20:04:27 Date Recorded Oxygen saturation Oxygen [...] cm 99 % 99 % 98.9 [degF] 40443.2 4 g 20 /min 164 mm[Hg] 63 [...] Note 1594 Hanane Mena MD Main - [address] [phone] 02/16/2022 14:13:00 05/29/2022 14:46:24 Acute low back pain 918702912 M54.50 Pt p/w 5 days of atraumatic [...] no improvemen t in pain consider imagingPer anesthesiologist physician, requestor asked for CBC w/ diff and CMP (not acknowledg ed in [facility] portal) but no orders placed. Reasonable to check CBC w/ diff and CMP thus orders placed. Ketonuria [id number] R82. 4 Pt with 2+ urinary ketones [...] and call PCP if FSG > 350. 63092 Damien Alfredo MD Main - [facility] [address] [place] [phone] 04/08/2023 16:22:43 04/08/2023 23:08:09 Hypoxia 998459760 R09.02 32760 Wander Smith MD Main - [facility] [address] [place] [phone] 09/18/2024 20:04:23 09/18/2024 21:06:53 Acute exacerbation of chronic obstructive pulmonary disease 949980298 J44.1 Health Concerns Section Related Observation LastModified by Organization Detai ls LastModified Time None Recorded Concern Status LastModified by Organization Details LastModified Time None Recorded Advance Directives Directive None Recorded Payers Insurance Date Sequence Insurance Name Policy Number Policy Rendon Covered Member ID Rendon Member ID Guarantor Name 04/08/2023 1 [facility] - DOS PRIOR TO 2023 - DUAL ELIGIBLE (MEDICARE REPLACEMENT/AD VANTAGE - HMO) Katherine Griffith [id number] Katherine Griffith 09/18/2024 1 [facility] - DOS ON OR AFTER 2023 - DUAL ELIGIBLE - LONG TERM OPTIONS AND ONE CARE (MEDICARE REPLACEMENT/AD VANTAGE - HMO) Katherine Griffith [id number] Katherine Griffith Notes Date Note Type Note [...] .................... .................... .................... .................... .................... .................... . Wild Life Manager Note: Patient is a 76 year [...] seen by urologist last month according to manager of care, kidney function was good. Urine sample obtained and dipped; changes in PRO, SG and KET detected. Urine sent to [facility] for UA and Culture. Vital signs obtained and all within normal limits. Red flags discussed. Consulted with Dr. Mena. Patient is to follow up with PCP/care team regarding her signs, symptoms and todays visit. Dr. Mena recommended blood work. Wild Life Manager Sara Davis was dispatched for procedure. See anesthesiologist physician Sara Davis run report for further patient [...] which suggests h Hanane Mena MD [address] [facility],[address], [place], [address], [employer] 02/16/2022 16:24:46 04/08/2023 text/html [facility] Nursing Assessment: Reason For Request: Daughter reporting [...] Verify member name/- Damien Alfredo MD [address] [facility],[address], [place], [address], [employer] 04/08/2023 16:28:34 09/18/2024 text/html [facility] Nurse Triage Notes (Elina Lopez [...] s/s and seek emergency treatment if needed. Wild Life Manager Organization Information for [facility] Business Legal Name: [facility] Transportation Address: [address] [place] [address], [place] [address], Clinical Administrator: Louis Stockton MD CLIA No.: [id number] Wild Life Manager POC Test Results from [facility] Rapid COVID antigen (20:02:29) COVID: - Rapid influenza antigen (20:02:30) Flu: - Wander Smith MD [address] [place] [address],[address], [place], [address], [place] - [employer] 09/18/2024 21:05:29 OBGyn Episode No OBEpisode recorded.
--- OUTSIDE RECORDS SUMMARY | 2025-02-12 10:50 | XMS_ITS ---
Author Organization [facility] Address [address] [place] [address] Care Team Providers Care Counselor Education Professor Name Role Phone Jaime VORA, Shelby Primary Care Provider Unavail able aRndy Leal Unavailable [phone] Allergies Allergen (clinical drug ingredient) Drug/Non Drug [...] Ordered Date Performed Result Body Sit e 41425-OQGFSZE NAIL, 6 OR MORE 12/26/2024 N/A 55819-Myzbizxf Plate 12/26/2024 N/A 38623-GJBO SKIN LESIONS, 2 TO 4 12/26/2024 N/A Encounters Encounter Location Date Provider Diagnosis [facility] [place] [address] [place] [address] 12/26/2024 Randy Leal Type 2 diabetes mellitus [...] INSTRUCTIONS.pdf) Pending Test Test Name Order Date 23034-SIIBTEJ NAIL, 6 OR MORE 12/26/2024 83043-Jrfvnljb Plate 12/26/2024 57015-HMXS SKIN LESIONS, 2 TO 4 12/27/19 Next Appt Details Follow Up: 3 Months, Reason: Provider Name:Randy Leal , 03/27/2025 09:30:00 AM, [address] [place] [address], [phone], Procedure Notes * Category Sub-Category Detail Notes [...] and future surgical procedures to prevent recurrence (30645), DIABETES: Pt was advised as to the [...] use of a nail nipper and/or dremel-type soap grinder, to a more viable healthy nail [...] to maintain effectiveness in symptomatic relief - 41143 Keratoma Treatment Parring or Cutting o f [...] instrumentation by the physician of record - 57346 Progress Notes * Katherine DIASDOB: [birth year] (79 yo F)Acc No.[id number]:12/26/2024 Progress Note Patient:Katherine UNDERWOOD Provider:?Randy Leal DPM :1945???Age:79 Y???Sex:Female D ate:12/26/2024 Address:[address] [place], [place] [phone] Pcp:Shelby Sandoval MD Subjective: * Chief Complaints: [...] , Female , who serves as , Senior Ui Web Developer/Virtualization Engineer , and/who is physically present in exam [...] hematoma of lef t foot, initial encounter?Procedure: 66280-Gseanoqr Plate * Procedures:?Debride Nail 6-10:?Nail debridement?Due to [...] use of a nail nipper and/or dremel-type soap grinder, to a more viable healthy nail [...] to maintain effectiveness in symptomatic relief - 52296.?Keratoma Treatment:?Parring or Cutting of Benign Hyperkeratotic Lesion(s)?(-56) [...] instrumentation by the physician of record - 45961.?Nail Avulsion:?Location?TA, Total nail.?Anesthesia?was deferred - NEUROPATHY: patient [...] and future surgical procedures to prevent recurrence (37123), DIABETES: Pt was advised as to the risk of delayed or nonhealing due to diabetes. Pt is to call the office with any questions, concerns, or complications.? * Procedure Codes:?60624 DEBRI DE NAIL, 6 OR MORE, Modifiers: XS 80749 TRIM SKIN LESIONS, 2 TO 4, Modifiers: XS 39557 Avulsion Plate, Modifiers: XS , TA * [...] Leal DPM Date:?2024 Generated for Herber olea/Rolando/Emely on:?02/12/2025 10:50 AM EDT History and Physical Notes * [...] , Female , who serves as , Senior Ui Web Developer/Virtualization Engineer , and/who is physically present in exam [...]
--- OUTSIDE RECORDS SUMMARY | 2025-02-12 10:50 | XMS_ITS | Encounter Summary ---
Author Organization [employer] Address [address] [place] [address] [address] [place] [address] Care Team Providers Care Medical Scientific Liaison Name Role Phone Unavailable Primary Care Provider Unavailabl e Reason for Visit * Reason Comments Med Refill Encounter Details Date Type Department Care Team (Late Contact Info) Description 11/24/2023 Refill [facility] MEDICINE [address] [place] [address] Christianne John MD [address] [place] [phone] Moderate persistent asthma, unspecified whether complicated Social [...] Description 02/27/2025 10:00 AM EDT Office Visit [facility] ADULT DENTAL [address] [place] [address] Moy Caldwell DDS [address] [place] [address] 07/25/2025 10:00 AM EDT Office Visit [facility] ADULT DENTAL [address] [place] [address] Johana Garcia [address] [place] [address] documented as of this encounter Visit Diagnoses Diagnosis Moderate persistent asthma, unspecified whether complicated documented in this encounter
--- OUTSIDE RECORDS SUMMARY | 2025-02-12 10:50 | XMS_ITS | Encounter Summary ---
Author Organization [employer] Address [address] [place] [address] [address] [place] [address] Care Team Providers Care Artificial Fly Tier Name Role Phone Unavailable Primary Care Provider Unavailabl e Reason for Visit * Reason Comments Med Refill Encounter Details Date Type Department Care Team (Late Contact Info) Description 01/19/[address] [facility] MEDICINE [address] [place] [phone] Christianne John MD [address] [place] [address] Vitamin deficiency Social History Tobacco Use Types [...] Description 02/27/2025 10:00 AM EDT Office Visit [facility] ADULT DENTAL [address] [place] [address] Moy Caldwell DDS [address] [place] [address] 07/25/2025 10:00 AM EDT Office Visit [facility] ADULT DENTAL [address] [place] [address] Johana Garcia [address] [place] [address] documented as of this encounter Visit Diagnoses Diagnosis Vitamin deficiency Unspecified vitamin deficiency documented in this encounter
--- OUTSIDE RECORDS SUMMARY | 2025-02-12 10:50 | XMS_ITS | Encounter Summary ---
Author Organization [employer] Address [address] [place] [address] [address] [place] [address] Care Team Providers Care Pouch Maker Name Role Phone Unavailable Primary Care Provider Unavailabl e Reason for Visit * Reason Comments Med Refill Encounter Details Date Type Department Care Team (Late Contact Info) Description 11/29/2023 Refill [facility] MEDICINE [address] [place] [address] Christianne John MD [address] [place] [address] Moderate persistent asthma, unspecified whether complicated Social [...] Description 02/27/2025 10:00 AM EDT Office Visit [facility] ADULT DENTAL [address] [place] [address] Moy Caldwell DDS [address] [place] [address] 07/25/2025 10:00 AM EDT Office Visit [facility] ADULT DENTAL [address] [place] [address] Johana Garcia [address] [place] [address] documented as of this encounter Visit Diagnoses Diagnosis Moderate persistent asthma, unspecified whether complicated documented in this encounter
--- OUTSIDE RECORDS SUMMARY | 2025-02-12 10:50 | XMS_ITS | Encounter Summary ---
Author Organization [employer] [facility] Address [address] [place] [address] [address] [place] [address] Care Team Providers Care Assembler Installer General Name Role Phone Marycarmen Quijano MD Primary Care Provider [phone] Marycarmen Quijano MD Primary Care Provider [phone] Encounter Details Date Type Department Care Team (Latest Contact Info) Description 06/16/2021 Abstract [facility], Provider, DDS Social History Tobacco [...] 02/27/2025 10:00 AM EDT [facility] Visit [facility] [address] [place] [address] Moy Caldwell DDS [address] [place] [address] 07/25/2025 10:00 AM EDT Office Visit [facility] [address] [place] [address] Johana Garcia [address] [place] [address] documented as of this encounter Visit Diagnoses Not on filedocumented in this encounter Care Teams Assembler Installer General Relationship Specialty Start Date End Date Marycarmen Quijano MD [address] [place] [address] PCP - General Family Medicine 07/26/13 02/01/23 Marycarmen Quijano MD [address] [place] [address] PCP - General Family Medicine 03/02/23 06/20/23 documented as of this encounter
--- OUTSIDE RECORDS SUMMARY | 2025-02-12 10:50 | XMS_ITS | Encounter Summary ---
Author Organization [employer] Address [address] [place] [address] [address] [place] [address] Care Team Providers Care Emc Storage Architect Name Role Phone Unavailable Primary Care Provider Unavailabl e Reason for Visit * Reason Comments Med Refill Encounter Details Date Type Department Care Team (Late Contact Info) Description 12/02/2023 Refill [facility] MEDICINE [address] [place] [address] Christianne John MD [address] [place] [address] Moderate persistent asthma, unspecified whether complicated Social [...] Visit [facility] ADULT DENTAL [address] [place] [address] Moy Caldwell DDS [address] [place] [address] 07/25/2025 10:00 AM EDT Office Visit [facility] ADULT DENTAL [address] [place] [address] Johana Garcia [address] [place] [address] documented as of this encounter Visit Diagnoses Diagnosis Moderate persistent asthma, unspecified whether complicated documented in this encounter
--- OUTSIDE RECORDS SUMMARY | 2025-02-12 10:50 | XMS_ITS | Encounter Summary ---
Author Organization [employer] Address [address] [place] [address] [address] [place] [address] Care Team Providers Care Booking Officer Name Role Phone Unavailable Primary Care Provider Unavailabl e Reason for Visit * Reason Comments Med Refill Encounter Details Date Type Department Care Team (Late Contact Info) Description 12/01/2023 Refill [facility] MEDICINE [address] [place] [phone] Christianne John MD [address] [place] [address] Moderate persistent asthma, unspecified whether complicated Social [...] 02/27/2025 10:00 AM EDT Office Visit [facility] ADULT DENTAL [address] [place] [address] Moy Caldwell DDS [address] [place] [address] 07/25/2025 10:00 AM EDT Office Visit [facility] ADULT DENTAL [address] [place] [address] Johana Garcia [address] [place] [address] documented as of this encounter Visit Diagnoses Diagnosis Moderate persistent asthma, unspecified whether complicated documented in this encounter
--- OUTSIDE RECORDS SUMMARY | 2025-02-12 10:50 | XMS_ITS | Encounter Summary ---
Author Organization [employer] Address [address] [place] [address] [address] [place] [address] Care Team Providers Care Coin Machine Servicer Repairer Name Role Phone Marycarmen Quijano MD Primary Care Provider [phone] Reason for Visit * Reason Comments Med Refill Encounter Details Date Type Department Care Team ([facility] Contact Info) Description 04/15/2023 Refill [facility] MEDICINE [address] [place], [place] [phone] Marycarmen Quijano MD [address] [place], [place] [phone] Social History Tobacco Use Types Packs/Day Years [...] Upcoming Encounters Date Type Department Care Team ([facility] Contact Info) Description 02/27/2025 10:00 AM EDT Office Visit [facility] ADULT DENTAL [address] [place] [address] Moy Caldwell DDS [address] [place] [address] 07/25/2025 10:00 AM EDT Office Visit [facility] ADULT DENTAL [address] [place] [address] RadhaJohana [address] [place] [address] documented as of this encounter Visit Diagnoses Not on filedocumented in this encounter Care Teams Coin Machine Servicer Repairer Relationship Specialty Start Date End Date Marycarmen Quijano MD [address] [place] [address] PCP - General Family Medicine 03/02/23 06/20/23 documented as of this encounter
--- OUTSIDE RECORDS SUMMARY | 2025-02-12 10:50 | XMS_ITS | Clinical Summary ---
Author Organization [employer] Address [address] [facility] [address] [place] [address] Care Team Providers Care Ic Designer Gate Arrays Name Role Phone Unavailable Primary Care Provider [...] BEDTIME 2 Active Blood Glucose Monitoring Suppl (LaserGenStyle [place] Lite) w/Device kit TEST BLOOD SUGAR THREE [...] by mouth at bed time. Active Creon 85826-03718 units capsule 3 Active pantoprazole (ProtoNix) 40 [...] Type 2 diabetes mellitus with hyperlipidemia (CMS/HCC) (CMS/HCC) [...] 3 Active ergocalciferol (Vitamin D2) 1.25 MG (35471 UT) capsule TAKE 1 CAPSULE BY MOUTH ONCE WEEKLY ON Wednesday 12 capsule 1 3 Active budesonide-formote rol (Symbicort) 160-4.5 MCG/ACT inhaler [...] by mouth Once per day. 4 Active amoxicillin (Amoxil) 500 MG capsule Take 4 tabs (2 grams) 1 hour prior to dental procedure 4 capsule 3 5 Active Active Problems Problem Noted Date Diagnosed [...] Description 01/12/2025 9:00 AM EDT Office Visit [facility] [address] [place] [address] Johana Garcia Dental plaque (Primary Dx); Localized gingival recession, severe; Partially edentulous maxilla, unspecified edentulism class; Partially edentulous mandible, unspecified edentulism class 01/11/2025 9:00 AM EDT Office Visit [facility] [address] [place] [address] Johana Garcia Heart valve replaced (Primary Dx) 12/04/2024 9:00 AM EST Office Visit [facility] [address] [place] [address] Moy Caldwell DDS Partial edentulism, unspecified edentulism class (Primary Dx) from Last [...] Description 02/27/2025 10:00 AM EDT Office Visit [facility] [address] [place] [address] Moy Caldwell DDS [address] [place] [address] 07/25/2025 10:00 AM EDT Office Visit [facility] [address] [place] [address] Johana Garcia [address] [place] [address] Health Maintenance Due Date Last Done Comments [...] TRY IN Routine 12/04/2024 9:00 AM EST INTRAORAL - COMPLETE SERIES OF RADIOGRAPHIC IMAGES Routine 06/19/2024 10:00 AM EDT PERIODIC ORAL EVALUATION - ESTABLISHED PATIENT Routine 06/19/2024 10:00 AM EDT ZZZ HISTORICAL HEMOGLOBIN A1C Routine 07/09/2022 10:40 AM EDT ZZZ HISTORICAL LIPID PANEL Routine 09/18/2020 1:18 PM EST from Last 3 Months or Most Recently Relevant to Health Maintenance Results * HEMOGLOBIN A1C (07/09/2022 10:40 AM EDT) Estimated Average Glucose 151 mg/dL [facility] Comment: eAG = Estimated average glucose which is %A1C expressed as average glucose, using the formula of the F6Y-[id number] Average Glucose study (ADAG), Diabetes Care, Vol.31,#8, [...] liver disease. LDL Cholesterol Calculated 90 mg/dl [facility] Comment: Desirable LDL: ? less than 100 mg/dL Near Optimal/Above Optimal LDL: ??110-129 mg/dL Borderline High LDL: ? 130-159 mg/dL High LDL: ?160-189 mg/dL Very High LDL: ? greater than or equal to ?190 mg/dL Triglycerides 81 mg/dL [facility] Comment: Desirable Triglyceride: ? less than 150 mg/dL Borderline High Triglyceride ??150-199 mg/dL High Triglyceride: ?200-499 mg/dL Very High Triglyceride: ? greater than or equal to ? 5OO mg/dL Alanine Aminotransferase 14 0 - 31 U/L [facility] Albumin Level 3.7 3.5 - 5.0 g/dL [facility] Alkaline Phosphatase 120(H) 39 - 117 U/L [facility] Anion Gap 14 12 - 20 [facility] Aspartate Amino Transferase 16 5 - 31 U/L [facility] Bilirubin Total 0.4 0.0 - 1.0 mg/dL [facility] Blood Urea Nitrogen 25(H) 9 - 16 mg/dL [facility] Calcium 8.8 8.4 - 10.2 mg/dL [facility] Carbon Dioxide 25 22 - 29 mmol/L [facility] Chloride 105 96 - 108 mmol/L [facility] Creatinine, Serum 1.35 0.5 - 1.4 mg/dL [facility] Estimated Glomerular Filt Rate 38 [facility] Comment: NOTE: ??For -[place] individuals, multiply the result ?by 210. ?? Chronic Kidney Disease: ??Estimated GFR < [...] Final Result [facility] [address] from Last 3 Months or Most Recently Relevant to Health Maintenance Insurance [facility] INTERMEDIATE OPTIONS (HMO D-SNP) YSAMIN FRANCO [id number] [facility]
--- OUTSIDE RECORDS SUMMARY | 2025-02-12 10:50 | XMS_ITS ---
Author Organization [facility] Address [address] [place] [address] Care Team Providers Care Diamond Mounter Name Role Phone Jaime VORA, Shelby Primary Care Provider Unavail Randy Marshall Unavailable [phone] Encounters Encounter Location Date Provider Diagnosis [address] [address] 09/19/2024 Randy Leal Plan Of Treatment Next Appt Details Provider Name:Randy Leal , 03/27/2025 09:30:00 AM, [address] [place], [address], Progress Notes * Katherine DIASDOB: (79 yo F)Acc No.[id number]:09/19/2024 Progress Note Patient:?ARUNKatherine Provider:?Randy Leal DPM :1945???Age:79 Y???Sex:Female D ate:09/19/2024 Address:[address] [place], [place] [id number] Pcp:Shelby Sandoval MD Subjective: * Chief Complaints: [...] Leal DPM Date:?2023 Generated for Herber olea/Rolando/Emely on:?02/12/2025 10:49 AM EDT
--- OUTSIDE RECORDS SUMMARY | 2025-02-12 10:50 | XMS_ITS | Encounter Summary ---
Author Organization [employer] Address [address] [place] [address] [address] [place] [address] Care Team Providers Care Superintendent Maintenance Airports Name Role Phone Marycarmen Quijano MD Primary Care Provider [phone] Marycarmen Quijano MD Primary Care Provider [phone] Reason for Visit * Reason Comments Med Refill Encounter Details Date Type Department Care Team (Late st Contact Info) Description 11/10/2022 Refill [facility] [address] [place] [address] Marycarmen Quijano MD [address] [place] [address] Social History Tobacco Use Types Packs/Day Years [...] Description 02/27/2025 10:00 AM EDT Office Visit [facility] [address] [place] [address] Moy Caldwell DDS [address] [place] [address] 07/25/2025 10:00 AM EDT Office Visit [facility] [address] [place] [address] Johana Garcia [address] [place] [address] documented as of this encounter Visit Diagnoses Not on filedocumented in this encounter Care Teams Superintendent Maintenance Airports Relationship Specialty Start Date End Date Marycarmen Quijano MD [address] [place] [address] PCP - General Family Medicine 07/26/13 02/01/23 Marycarmen Quijano MD [address] [place] [address] PCP - General Family Medicine 03/02/23 06/20/23 documented as of this encounter
== END 2025-02-12 10:18 | disposition home or self-care (01) ==
LOC: HO.XRAY 10:17
PROVIDERS: PCP Internal Medicine; Visit Provider Internal Medicine
DX: M25.551 Pain in right hip (principal); M54.50 Low back pain, unspecified
CPT/HCPCS: 72100; 73522

== ENCOUNTER → 2025-02-12 10:22 | Outpatient (BNV) | payer OTHER, SELFPAY | PROVIDERS: PCP Internal Medicine; Visit Provider Radiology Diagnostic Radiology | DX: M25.551 Pain in right hip (principal); M25.552 Pain in left hip; M54.50 Low back pain, unspecified | CPT/HCPCS: 72100; 73522 ==

== ENCOUNTER 2025-02-19 08:57 | Outpatient (AMB) | payer OTHER, SELFPAY ==
--- NOTE | 2025-02-19 09:01 | MHC.OFFVIS ---
Vital Signs 02/19/25 09:04 Height 4 ft 9 in Weight 186 lb 8.177 oz BMI 40.4 BP 138/60 Blood Pressure Location Lt brachial Position Sitting Pulse 71 Pulse Source Pulse Oximeter Pulse Oximetry (%) 97 Oxygen Delivery Method Room Air Intake Visit Reasons: hyperparathyroidism Intake Note: Patient present today for hyperparathyroidism office visit. Home And Family Living Professor Required: Yes Home And Family Living Professor Language: Color Worker Services: Home And Family Living Professor Offered & Declined Accompanied by: Daughter Allergies ibuprofen [From Motrin] Allergy (Intermediate, Verified 02/19/25 09:05) High Blood Pressure, Rash oxycodone [From Percocet] Allergy (Intermediate, Verified 02/19/25 09:05) Itching tirzepatide [From Mounjaro] Adverse Reaction (Severe, Verified 02/19/25 09:05) Diarrhea Medication List - Last Reconciled 02/19/25 by Nafisa Mao MD albuterol sulfate 90 mcg/actuation 2 inhalations inhalation Q6H PRN 30 days amlodipine 10 mg PO DAILY aspirin 81 mg PO BEDTIME 90 days atorvastatin 80 mg PO BEDTIME 90 days blood pressure monitor As directed blood sugar diagnostic (FreeStyle Lite Strips) Use daily As directed to check blood glucose blood sugar diagnostic (FreeStyle Lite Strips) 3times a day blood-glucose meter (FreeStyle [place] Lite kit) As directed blood-glucose meter (FreeStyle Lite Meter kit) Use daily As directed to check blood sugars blood-glucose sensor (FreeStyle [place] 3 Sensor device) Apply every 14 days As directed to monitor blood glucose blood-glucose sensor (Dexcom G7 Sensor device) Use daily As directed to monitor blood glucose. Change q 10 days blood-glucose,therapeutic program worker,cont (Dexcom G7 [place]ath) use daily As directed to monitor blood glucose calcium acetate(phosphat bind) 667 mg PO BID 90 days cefuroxime axetil 500 mg PO BID cholecalciferol (vitamin D3) 25 mcg PO DAILY 90 days clotrimazole-betamethasone 1-0.05 % 1 appl topical BID 5 days [Diabetic shoes with inserts As directed] disposable gloves As directed ferrous sulfate 325 mg PO .once a week 90 days fluticasone propionate 50 mcg/actuation 1 spray intranasal DAILY PRN 30 days tcgvikqlmto-jilbmfxxk-adnxdzua 200-62.5-25 mcg (Trelegy Ellipta) 1 inh inhalation DAILY 30 days folic acid 1 mg PO QAM 90 days FreeStyle Lancets (lancets) 3 times a day NS gabapentin 300 mg PO BEDTIME 90 days hydralazine 25 mg PO TID 90 days hydrocortisone 1% (Anti-Itch (hydrocortisone)) 1 appl topical BID PRN 4 weeks [incomtinemce liner pads As directed] insulin glargine U-300 conc (Toujeo SoloStar U-300 Insulin) 24 units (0.08 mL) subcut DAILY 90 days ipratropium-albuterol 0.5 mg-3 mg(2.5 mg base)/3 mL 3 mL inhalation RQ4H WHILE AWAKE ketoconazole 2% 1 appl topical 2XW 30 days lancets (TRUEplus Lancets) As directed test 4 times a day lancets (FreeStyle Lancets) use daily as directed to check blood glucose losartan 25 mg PO DAILY 90 days montelukast 10 mg PO QPM 90 days Novolog FlexPen U-100 Insulin (insulin aspart U-100) 4 units (0.04 mL) subcut TID NS omeprazole 40 mg PO DAILY Oxygen Home Use As directed pen needle, diabetic (BD Sia 2nd Gen Pen Needle) 5 times a day semaglutide (Ozempic) 1 mg (0.75 mL) subcut QWEEK simethicone (Gas Relief (simethicone)) 250 mg (2 x 125 mg) PO BID PRN 90 days sucralfate 1 g PO BID PRN terconazole 0.8% 1 appful vaginal BEDTIME 3 days tobramycin-dexamethasone 0.3-0.1 % 1 drp ophthalmic (eye) QID torsemide 20 mg PO BID [wipes As directed] HPI Comments Details: 79-year-old female here today for follow up of elevated PTH level. Here today with daughter who is doing the interpretation. Lives with daughter. Dependent for ADLs and IADLs. Has history of type 2 DM, follows at our office with YASMIN Marques for this , not addressed today. Chart review shows PTH level noted to be at 101.2 from 11/14/2024, vitamin-D level low at 24.9, calcium level normal at 9.2, albumin of 3.3, corrected calcium would be 9.8. Patient has CKD stage 3, EGFR 46. Normal phosphorus and magnesium. She has had some high normal calcium levels in the past over 2023 of 10.4. Does have history of kidney stones (also seen on US kidney 02/24, non obstructing) She has CKD stage 3 , follows with nephro , in the setting of longstanding DM and HTN DEXA February 2023, showed osteopenia of left femoral neck with T score - 1.9, normal lumbar spine bone density , FRAX does not meet criteria for trx , no recent fractures On vitamin D 1000 units daily on calcium acetate 600 mg BID for phosphate binder one glass of milk everyday , cheese often , yogurt sometimes no hctz use No family history of kidney stones or calcium problems Interval history Continues on vitamin D 1000 units daily, she showed me the capsule in her pillbox. I had asked them to do blood work at [facility], however she repeated blood work at [facility], labs from 01/31/2025 showed normal kidney function, calcium of 9.4 with albumin of 3.4, corrected calcium would be around 10, high ionized calcium of 5.3, vitamin-D still slightly low at 28, PTH elevated at 100. Physical exam General: sitting comfortably in no acute distress HEENT: normocephalic/atraumatic, Neck: supple, symmetrical Cardiac: normal heart sounds Pulm: normal breath sounds B/L, no added breath sounds Abd: not distended, no tenderness Extremities: no edema Laboratory Tests 12/01/21 12/01/21 10/09/22 14:47 14:52 09:22 Creatinine Estimated GFR Calcium 9.3 Phosphorus 3.9 Ionized Calcium Magnesium 25-OH Vitamin D Total PTH Intact 80 H Ur Random Calcium Urine Creatinine 10/10/22 10/11/22 12/07/22 13:16 05:47 15:44 Creatinine Estimated GFR 42 39 Calcium 9.3 9.5 8.9 D Phosphorus 4.5 Ionized Calcium Magnesium 25-OH Vitamin D Total 35.8 PTH Intact 109 H Ur Random Calcium Urine Creatinine 02/03/23 02/03/23 02/03/23 09:43 09:43 09:43 Creatinine Estimated GFR 31 Calcium 9.0 9.1 Phosphorus Ionized Calcium Magnesium 25-OH Vitamin D Total 41.4 45.1 PTH Intact Ur Random Calcium Urine Creatinine 02/03/23 04/16/23 04/17/23 09:43 13:23 06:04 Creatinine Estimated GFR 32 29 28 Calcium 10.3 H D 9.7 Phosphorus 4.4 Ionized Calcium Magnesium 25-OH Vitamin D Total PTH Intact 82 H Ur Random Calcium Urine Creatinine 05/05/23 05/24/23 06/02/23 10:40 20:17 08:58 Creatinine Estimated GFR 39 36 38 Calcium 9.7 9.5 9.4 Phosphorus Ionized Calcium Magnesium 25-OH Vitamin D Total 30.1 PTH Intact Ur Random Calcium Urine Creatinine 10/13/23 12/26/23 01/25/24 08:43 16:16 13:22 Creatinine 1.48 H 1.46 H 1.51 H Estimated GFR 34 35 33 Calcium 9.4 9.7 9.8 Phosphorus Ionized Calcium Magnesium 2.4 25-OH Vitamin D Total < 3.5 L 28.1 L PTH Intact Ur Random Calcium Urine Creatinine 02/21/24 03/24/24 05/08/24 14:26 11:42 08:48 Creatinine 1.68 H 1.40 1.39 Estimated GFR 29 36 37 Calcium 10.4 H D 9.9 9.2 D Phosphorus 3.3 Ionized Calcium Magnesium 2.2 25-OH Vitamin D Total 30.8 L PTH Intact 91.9 H 121.6 H Ur Random Calcium Urine Creatinine 07/19/24 09/05/24 11/14/24 18:11 08:39 07:27 Creatinine 1.63 H 1.54 H Estimated GFR 30 32 Calcium 9.8 D Phosphorus Ionized Calcium Magnesium 2.3 25-OH Vitamin D Total PTH Intact Ur Random Calcium 1.7 Urine Creatinine 50.58 11/14/24 11/14/24 11/14/24 07:49 07:49 07:49 Creatinine 1.15 1.18 Estimated GFR 44 Calcium 9.2 D 9.4 Phosphorus Ionized Calcium Magnesium 25-OH Vitamin D Total 24.9 L PTH Intact Ur Random Calcium Urine Creatinine 11/14/24 11/14/24 07:49 11:54 Creatinine Estimated GFR 46 Calcium Phosphorus 3.5 Ionized Calcium 5.4 Magnesium 2.2 25-OH Vitamin D Total PTH Intact 101.2 H Ur Random Calcium Urine Creatinine Laboratory Tests 07/19/24 11/14/24 11/14/24 18:11 07:49 07:49 Albumin 3.6 3.3 L 3.3 L Laboratory Tests 01/31/25 10:50 Creatinine 1.25 Estimated GFR 41 Calcium 9.4 Ionized Calcium 5.3 Albumin 3.4 L 25-OH Vitamin D Total 28.0 L PTH Intact 100.0 H BONE DENSITOMETRY 02/26/23 CLINICAL INDICATION: Unspecified menopausal and perimenopausal disorder. COMPARISON: Previous BD dated 04/23/2020 and baseline BD dated 10/21/2007. TECHNIQUE: Using a Novalere FP DXA System (software version: 13.1) manufactured by [employer], dual-energy x-ray absorptiometry was performed of the lumbar spine and left hip. The images are of good technical quality. Summary results are attached. FINDINGS: AP SPINE L1-L4: Current: BMD 1.188 g/cm2, Z-score 0.9, T-score 0.1, normal, 3.8% increase from previous, 18.0% increase from baseline (<5% change is not significant). Prior: BMD 1.144 g/cm2. Baseline: BMD 1.007 g/cm2. LEFT FEMUR, NECK: Current: BMD 0.771 g/cm2, Z-score -0.5, T-score -1.9, osteopenia. Prior: BMD 0.933 g/cm2. Baseline: BMD 0.989 g/cm2. LEFT FEMUR, TOTAL: Current: BMD 0.901 g/cm2, Z-score 0.4, T-score -0.8, normal, 18.7% decrease from previous, 26.7% decrease from baseline (<5% change is not significant). Prior: BMD 1.108 g/cm2. Baseline: BMD 1.229 g/cm2. IDENTIFIED RISK FACTORS: Anticonvulsant, menopause, renal. HISTORY OF FRACTURE: None listed. MEDICATIONS: Vitamin D. US RETROPERITONEAL COMPLETE (RENAL) 02/29/24 CLINICAL INFORMATION: Urge incontinence. COMPARISON: MR abdomen 01/07/2023, CT abdomen and pelvis 07/01/2022. TECHNIQUE: Real-time imaging of the kidneys and bladder. FINDINGS: RIGHT KIDNEY: 10.9 x 3.9 x 5.0 cm (SAG x AP x TRV). The kidney is normal in size, contour, and echogenicity. Renal cortical thickness is normal. There is a lower pole 6 mm echogenic focus seen consistent with a nonobstructing calculus. No hydronephrosis. A benign 2.4 cm lower pole Bosniak class I renal cyst is noted along with multiple other smaller cysts. These require no additional imaging or follow up. No solid renal masses are seen. LEFT KIDNEY: 11.1 x 4.4 x 4.8 cm (SAG x AP x TRV). The kidney is normal in size, contour, and echogenicity. Renal cortical thickness is normal. Single punctate 3 mm nonobstructing calculus seen at the lower pole. No other calculi or focal parenchymal lesions. No hydronephrosis. BLADDER: Well distended and normal. Bilateral ureteral jets are not demonstrated. Prevoid bladder volume is 427 mL. Postvoid bladder volume is 34 mL. US/US retroperitoneal comp IMPRESSION: 1. Bilateral nonobstructing renal calculi. 2. Benign Bosniak class I right renal cysts need no further imaging or follow up. 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 Aortic stenosis CKD (chronic kidney disease) stage 3, GFR 30-59 ml/min Dyslipidemia Diabetic polyneuropathy associated with type 2 diabetes mellitus Diabetic nephropathy associated with type 2 diabetes mellitus Chronic kidney disease Hypertension Asthma Thalamic pain syndrome GERD (gastroesophageal reflux disease) Morbid obesity Surgical History H/O aortic valve replacement History of breast lump/mass excision History of tubal ligation History of cholecystectomy Family History Sister History of renal pelvis cancer Father Suicide Mother Lung disease Diabetes mellitus Social History Household Members: Family Housing: House Do you presently have visiting nurse or other home services: Yes (pharmacist technician) Alcohol intake: never Comment: pt stays with pt. Patient Tobacco Use Status: Former Tobacco user Tobacco use type: Cigarette Years Smoked: 5 years e-Cigarette/Vaping Use: Never Used Second Hand Smoke Exposure: No service: No Current occupational status: unemployed and disabled Gender identity: Female Cognitive needs: Yes Hearing needs: No Vision needs: No Female Reproductive History Menstrual Age of Menarche: 10 Assessment & Plan Assessment & Plan (1) Hyperparathyroidism: Code(s): E21.3 - Hyperparathyroidism, unspecified Category: Medical Plan: 79-year-old female here today for initial evaluation of elevated PTH level. Chart review shows PTH level noted to be at 101.2 from 11/14/2024, vitamin-D level low at 24.9, calcium level normal at 9.2, albumin of 3.3, corrected calcium would be 9.8. Patient has CKD stage 3, EGFR 46. Normal phosphorus and magnesium. She has had some high normal calcium levels in the past over 2023 of 10.4. Possibly could have PTH elevation in the setting of vitamin-D deficiency, per patient's daughter she has been regularly taking the 1000 units of vitamin-D daily now, we will repeat vitamin-D and calcium levels as well as a concurrent PTH level. She also has CKD stage 3, some degree of PTH elevation could be from secondary hyperparathyroidism in the setting of kidney disease. Continues on vitamin D 1000 units daily, she showed me the capsule in her pillbox. I had asked them to do blood work at [facility], however she repeated blood work at [place] [facility], labs from 01/31/2025 showed normal kidney function, calcium of 9.4 with albumin of 3.4, corrected calcium would be around 10, high ionized calcium of 5.3, vitamin-D still slightly low at 28, PTH elevated at 100. Once her vitamin-D is optimized, if her PTH remains elevated, we will do further investigation for possible primary hyperparathyroidism. She does have history of kidney stones, plus given reduced GFR she would qualify for surgery if she has primary hyperparathyroidism. Otherwise bone density from 2022 showed osteopenia of the left femoral neck, FRAX does not qualify her for treatment. However given her age plus comorbidities, she might not be an ideal surgical candidate. Her calcium levels are not super elevated for us to consider cinacalcet. At this time we will proceed with optimizing her vitamin-D level and repeating labs in another 3 months. Because I have noticed some PTH assay concerns at our lab, I have asked her to repeat labs at [facility] Plan: -increase vitamin-D to 2000 units daily and repeat blood work in 10-12 weeks -ordered calcium, albumin, ionized calcium, vitamin-D, creatinine, PTH, to be done at [facility] in 10-12 weeks prior to follow up Plan I spent 30 minutes in reviewing the record, seeing the patient and documenting in the medical record. Orders: Orders Albumin Level 10 Weeks E21.3 - Hyperparathyroidism, unspecified Vitamin D 25-OH Total 10 Weeks E21.3 - Hyperparathyroidism, unspecified Creatinine 10 Weeks E21.3 - Hyperparathyroidism, unspecified Calcium 10 Weeks E21.3 - Hyperparathyroidism, unspecified Parathyroid Hormone Intact 10 Weeks E21.3 - Hyperparathyroidism, unspecified Calcium, Ionized 10 Weeks E21.3 - Hyperparathyroidism, unspecified Medications: New cholecalciferol (vitamin D3) 50 mcg PO DAILY 3 months 90 caps 0RF Discontinued cholecalciferol (vitamin D3) Discontinued Reason: Doctor's Order 25 mcg PO DAILY 90 days 90 caps 3RF Patient Instructions: Increase vitamin D to 2000 units daily Repeat blood work at [facility] [address] [place] [address] in 10 to 12 weeks have them Fax results to my office Follow up in 14 weeks Aumente la vitamina D a 2000 unidades diarias. Repita los an?lisis de naila en [facility], [address] [place] [address], en 10 a 12 semanas. Env?e los resultados por fax a mi consultorio. Seguimiento en 14 semanas. Coding Level of Care Code Est Pt Level 4 (62950) Diagnoses Hyperparathyroidism E21.3 Time Spent (min) 30
[2025-02-19 09:04] VITALS: BP 138/60; PULSE 71; O2SAT 97; BMI 40.4
--- OUTSIDE RECORDS SUMMARY | 2025-02-19 09:09 | XMS_ITS ---
Author Organization [facility] Address [address] [place] [address] Care Team Providers Care Illustrator Set Name Role Phone Jaime VORA, Shelby Primary Care Provider Unavail able Randy Leal Unavailable [phone] REASON FOR VISIT buy Small Plantar Fasc Sleeve Encounters Encounter Location Date Provider Diagnosis [facility] [address] [place] [address] 12/26/2024 Randy Leal Plan Of Treatment Next Appt Details Provider Name:Randy Leal , 03/27/2025 09:30:00 AM, [address] [place], [address], Progress Notes * Katherine DIASDOB: 5 (79 yo F)Acc No.[id number]:12/26/2024 Patient:?ARUNKatherine :1945???Age:79 Y???Sex:Female Address:[address] [place], [address] * true * Date:? Generated for Cotyi emmie/Rolando/eTransmitting on:?02/19/2025 09:09 AM EDT
--- OUTSIDE RECORDS SUMMARY | 2025-02-19 09:09 | XMS_ITS | Encounter Summary ---
Author Organization [employer] Address [address] [place] [address] 7t [place] [address] Care Team Providers Care General Lot Attendant Name Role Phone Marycarmen Quijano MD Primary Care Provider [phone] Reason for Visit * Reason Comments Med Refill Encounter Details Date Type Department Care Team ([facility] Contact Info) Description 04/15/2023 Refill [facility] [address] [place], [place] [phone] Marycarmen Quijano MD [address] [place], [place] [phone] Social History Tobacco Use Types Packs/Day Years [...] Upcoming Encounters Date Type Department Care Team ([facility] Contact Info) Description 02/27/2025 10:00 AM EDT Office Visit [facility] ADULT DENTAL [address] [place] [address] Moy Caldwell DDS [address] [place] [address] 07/25/2025 10:00 AM EDT Office Visit [facility] [address] [place] [address] RadhaJohana [address] [place] [address] documented as of this encounter Visit Diagnoses Not on filedocumented in this encounter Care Teams General Lot Attendant Relationship Specialty Start Date End Date Marycarmen Quijano MD [address] [place] [address] PCP - General Family Medicine 03/02/23 06/20/23 documented as of this encounter
--- OUTSIDE RECORDS SUMMARY | 2025-02-19 09:09 | XMS_ITS | Patient Health Record ---
Author Organization [facility] Address [address] [place] [address] Care Team Providers Care Hospice Fellow Name Role Phone Jaime VORA, Shelby Primary Care Provider Unavail able Randy Leal Unavailable [phone] Allergies Allergen (clinical drug ingredient) Drug/Non Drug Allergy documented on EMR Reaction Allergy Type Onset Date Status ibuprofen Advil Unknown Drug Allergy Active Aleve Unknown Drug Allergy Active Motrin Unknown Drug Allergy Active codeine Codeine Unknown Drug Allergy Active Morphine and Related Unknown Drug Allergy Active Results Component Value Reference Range Notes HEMOGLOBIN A1C (GLYCOHEMOGLO BIN) Reviewed date:12/26/2024 12:28:33 PM Interpretation: Performing Lab: Notes/Report: HEMOGLOBIN A1C % (HH) 8.4 HEMOGLOBIN A1C (GLYCOHEMOGLO BIN) Reviewed date:03/17/2024 11:26:54 [...] Problem Acquired hammer toe of right foot (3554255347000801 ) Other hammer toe(s) (acquired), right foot (M20.41) Active confirmed Problem Acquired hammer toe of left foot (5850712837630164 ) Other hammer toe(s) (acquired), left foot (M20.42) Active confirmed Problem Polyneuropathy due to type 2 diabetes mellitus (193170348) Type 2 diabetes mellitus with diabetic polyneuropathy (E11.42) Active confirmed Vital Signs Blood pressure diastolic 70 mm Hg 12/26/2024 Height 4 ft 9 in in 12/26/2024 Blood pressure systolic 120 mm Hg 12/26/2024 Weight 192 lbs 12/26/2024 BMI 41.54 kg/m2 12/26/2024 Procedures Procedure Date Ordered Date Performed Result Body Sit e 91234-FSPWSAE NAIL, 6 OR MORE 03/17/2024 N/A 09780-WAJS SKIN LESIONS, 2 TO 4 03/17/2024 N/A 20236-DJLEFST NAIL, 6 OR MORE 06/16/2024 N/A 37723-TIJY SKIN LESIONS, 2 TO 4 06/16/2024 N/A 93424-RMSEROZ NAIL, 6 OR MORE 12/26/2024 N/A 78339-Yssxygfz Plate 12/26/2024 N/A 51454-PXSP SKIN LESIONS, 2 TO 4 12/26/2024 N/A Encounters Encounter Location Date Provider Diagnosis [facility] [address] [place] [address] 03/17/2024 Randy Leal Type 2 diabetes mellitus with diabetic polyneuropathy E11.42 ; Tinea unguium B35.1 ; Other hammer toe(s) (acquired), right foot M20.41 and Other hammer toe(s) (acquired), left foot M20.[address] [address] 06/16/2024 Randy Leal Type 2 diabetes mellitus with diabetic polyneuropathy E11.42 and Tinea unguium B35.[address] [address] 12/26/2024 Randy Leal Type 2 diabetes mellitus with diabetic polyneuropathy E11.42 ; Tinea unguium B35.1 ; Other hammer toe(s) (acquired), right foot M20.41 ; Other hammer toe(s) (acquired), left foot M20.42 and Subungual hematoma of left foot, initial encounter S90.222A [address] [address] 09/19/2024 Randy Leal [address] [address] 12/26/2024 Randy Leal Assessments Encounter Date Diagnosis [...] Treatment Pending Test Test Name Order Date 31237-ILGJDVA NAIL, 6 OR MORE 03/17/2024 54188-GMATICJ NAIL, 6 OR MORE 06/16/2024 05277-KHKYFMW NAIL, 6 OR MORE 12/26/2024 63956-Qyqjobhy Plate 12/26/2024 76613-VFIG SKIN LESIONS, 2 TO 4 12/27/19 32523-JXOP SKIN LESIONS, 2 TO 4 06/16/20 44385-KSEJ SKIN LESIONS, 2 TO 4 03/17/20 Next Appt Details Provider Name:Randy Ihsan MayersMel , 03/27/2025 09:30:00 AM, [address] [place] [address], [phone], Insurance Providers Payer Name Payer Address Payer Phone Subscriber Number Group Number Insured Name Patient Relationship to Insured Coverage Start Date Coverage End Date [facility] [employer] Claims [address] [place], [place] [phone] [id number] Katherine Jamil Self - patient is the insured Medical (General) History Medical History History ICD Code Anxiety Arthritis asthma Back,Hip,and Knee pain CAD (Cholesterol) Cataracts Depression Diabetic Heart disease High blood pressure Kidney disease Lung disease Numbness Poor circulation Reflux ( GERD) sinusitis Vascular phlebitis (clots) Chicken pox Replacement Heart Valves Transfusions Surgical History Surgery Date(Month/Year)
--- OUTSIDE RECORDS SUMMARY | 2025-02-19 09:09 | XMS_ITS | Encounter Summary ---
Author Organization [employer] Address [address] [place] [address] 7t [place] [address] Care Team Providers Care Medical Cost Consultant Name Role Phone Marycarmen Quijano MD Primary Care Provider [phone] Reason for Visit * Reason Comments Med Refill Encounter Details Date Type Department Care Team ([facility] Contact Info) Description 03/07/2023 Refill [facility] & PEDS [address] [place], [place] [phone] Marycarmen Quijano MD [address] [place], [place] [phone] Social History Tobacco Use Types Packs/Day Years [...] Upcoming Encounters Date Type Department Care Team ([facility] Contact Info) Description 02/27/2025 10:00 AM EDT Office Visit [facility] ADULT DENTAL [address] [place], [place] [phone] Moy Caldwell DDS [address] [place], [place] [phone] 07/25/2025 10:00 AM EDT Office Visit [facility] ADULT DENTAL [address] [place] [address] Santos Garciaaris [address] [place] [address] documented as of this encounter Visit Diagnoses Not on filedocumented in this encounter Care Teams Medical Cost Consultant Relationship Specialty Start Date End Date Marycarmen Quijano MD [address] [place] [address] PCP - General Family Medicine 03/02/23 06/20/23 documented as of this encounter
--- OUTSIDE RECORDS SUMMARY | 2025-02-19 09:09 | XMS_ITS | Encounter Summary ---
Author Organization [employer] Address [address] [place] [address] 7t [place] [address] Care Team Providers Care Marketing Writer Name Role Phone Marycarmen Quijano MD Primary Care Provider [phone] Reason for Visit * Reason Comments Med Refill Encounter Details Date Type Department Care Team ([facility] Contact Info) Description 03/03/2023 Refill [facility] MED & PEDS [address] [place], [place] [phone] Marycarmen Quijano MD [address] [place] [address] Primary hypertension Social History Tobacco Use Types [...] Date Type Department Care Team ([facility] Contact Info) Description 02/27/2025 10:00 AM EDT Office Visit [facility] ADULT DENTAL [address] [place] [address] Moy Caldwell DDS [address] [place] [address] 07/25/2025 10:00 AM EDT Office Visit [facility] ADULT DENT[facility] [address] [place], [place] [phone] RadhaJohana [address] [place] [address] documented as of this encounter Visit Diagnoses Diagnosis Primary hypertension Unspecified essential hypertension documented in this encounter Care Teams Marketing Writer Relationship Specialty Start Date End Date Marycarmen Quijano MD [address] [place] [address] PCP - General Family Medicine 03/02/23 06/20/23 documented as of this encounter
--- OUTSIDE RECORDS SUMMARY | 2025-02-19 09:09 | XMS_ITS | Encounter Summary ---
Author Organization [employer] Address [address] [place] [address] 7t [place] [address] Care Team Providers Care Computer Systems Designer Name Role Phone Marycarmen Quijano MD Primary Care Provider [phone] Reason for Visit * Reason Comments Med Refill Encounter Details Date Type Department Care Team ([facility] Contact Info) Description 04/04/2023 Refill [facility] [address] [place], [place] [phone] Marycarmen Quijano MD [address] [place], [place] [phone] Social History Tobacco Use Types Packs/Day Years [...] Care Team ([facility] Contact Info) Description 02/27/2025 10:00 AM EDT Office Visit [facility] [address] [place] [address] Moy Caldwell DDS [address] [place] [address] 07/25/2025 10:00 AM EDT Office Visit [facility] [address] [place] [address] RadhaJohana [address] [place] [address] documented as of this encounter Visit Diagnoses Not on filedocumented in this encounter Care Teams Computer Systems Designer Relationship Specialty Start Date End Date Marycarmen Quijano MD [address] [place] [address] PCP - General Family Medicine 03/02/23 06/20/23 documented as of this encounter
--- OUTSIDE RECORDS SUMMARY | 2025-02-19 09:09 | XMS_ITS | Encounter Summary ---
Author Organization [employer] Address [address] [place] [address] 7t [place] [address] Care Team Providers Care Tube Buffer Name Role Phone Marycarmen Quijano MD Primary Care Provider [phone] Reason for Visit * Reason Comments Med Refill Encounter Details Date Type Department Care Team ([facility] Contact Info) Description 03/10/2023 Refill [facility] MED & PEDS [address] [place], [place] [phone] Marycarmen Quijano MD [address] [place] [address] Primary hypertension Social History Tobacco Use Types [...] Upcoming Encounters Date Type Department Care Team ([facility] Contact Info) Description 02/27/2025 10:00 AM EDT Office Visit [facility] ADULT [facility] [address] [place], [place] [phone] Moy Caldwell DDS [address] [place], [place] [phone] 07/25/2025 10:00 AM EDT Office Visit [facility] [address] [place] [address] Johana Garcia [address] [place], [place] [phone] documented as of this encounter Visit Diagnoses Diagnosis Primary hypertension Unspecified essential hypertension documented in this encounter Care Teams Tube Buffer Relationship Specialty Start Date End Date Marycarmen Quijano MD [address] [place] [address] PCP - General Family Medicine 03/02/23 06/20/23 documented as of this encounter
--- OUTSIDE RECORDS SUMMARY | 2025-02-19 09:09 | XMS_ITS | Clinical Summary ---
Author Organization [facility] 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 01/28/2021 Chronic [...] Overview (12/07/2022): Cath 01/2010 at [facility] showed LCx 80% and ostial LAD 80% [...] Visit [facility] [address] [place] [address] Dominick Reece MD [address] [facility] [address] [place] [address] Health Maintenance Due Date Last Done Comments [...] <5 % [facility] Comments From [facility] Creatinine 1.35(H) 0.70 - 1.30 mg/dl PVNMA Potassium 4.5 3.5 - 5.1 mmol/L PVNMA Calcium 8.8 8.4 - 10.2 mg/dl PVNMA eGFR Non- 38(L) >60 ml/min PVNMA 09/18/2020 us [facility]version LAB FAUQBMPTIO-LDKIANFISIN-AJNV LICITED RESULTS Final Result PVNMA from Last 3 Months or Most Recently Relevant to Health Maintenance Insurance [facility] ([id number]) YASMIN FRANCO [id number] [facility] ([id number]) YASMIN FRANCO [phone] Care Teams Supervisor Toy Parts Former Relationship Specialty Start Date End Date Marycarmen Quijano MD [address] [place] [address] PCP - General 10/14/20
--- OUTSIDE RECORDS SUMMARY | 2025-02-19 09:09 | XMS_ITS | Data Portability ---
Author Organization [employer] [facility] in - [facility] Address [address] [place] [address] Care Team Providers Care Staining Machine Operator Name Role Phone HIM CCA OTHER Assessment Encounter Date Assessment Date Assessment LastModified by Organization Details LastModified Time 04/08/2023 04/08/2023 77 YOF with CHF, COPD recent hospitalization being seen for report of low 02 sat at home in the 80s, On marketing content coordinator exam sat 91% on 2L pt in [...] follow up w pcp in 1 week Not available 09/18/2024 20:08:58 Plan of Treatment Reminders Order Date Submit Date Provider Last Modified By Organization Details Last Modified Time Details Appointments None recorded. Lab rapid SARS CoV 2 Ag, QL IA, respiratory specimen 2023 024 [facility], [address] [place] [address], [phone] 4 09:06:35 rapid flu (A+B) 2023 024 [facility], [address] [place] [address], [phone] 4 09:06:54 CBC w/ auto diff 2021 022 YODIT [facility] (Centralized Electronic Ordering - All Locations), Patient Can Go To The Location Of Their Choice, [address] 2 00:05:50 CMP, serum or plasma 052021 kemal [facility] (Centralized Electronic Ordering - All Locations), Patient Can Go To The Location Of Their Choice, [address] 19:37:00 unlisted lab - urinalysis w/reflex culture 2021 [place] [facility] (Centralized Electronic Ordering - All Locations), Patient Can Go To The Location Of Their Choice, [address] 01:53:39 cmp, whole blood + gloria 2021 [facility] [place], [place] [address], [address] [place] [address], [phone] 16:24:03 [facility]inalysis, dipstick [address] [facility] [place] [address], [address] [place] [address], [phone] 16:24:43 Referral None recorded. Procedures None recorded. Surgeries None recorded. Imaging None recorded. Medication Orders prednisone 10 mg tablet 2023 [facility], [address] [place] [address], [id number], 12:30:23 azithromyci n 250 mg tablet 2023 024 [facility], [address] [place] [address], [id number], 4 12:30:23 azithromyci n 250 mg tablet 2023 024 [facility], [address] [place] [address], [id number], 4 20:08:15 prednisone 20 mg tablet [email or web address] [facility], [address] [place] [address], [id number], 4 20:08:15 ipratropium 0.5 mg-albutero l 3 mg (2.5 mg base)/3 mL nebulizatio n soln 2023 024 [email or web address] [facility], [address] [place] [address], [id number], 20:08:15 Patient TargetsNo targets recorded. Patient InstructionsNo [...] Their Choice, 02/17/2022 01:53:39 02/17/2002/17/2022 UA W/REF RGEAN CULTU RE urine leukocyte NEGATI VE (neg) [...] Go To The Location Of Their Choice, [facility] 02/17/2022 01:53:39 02/17/20 22 02/17/2022 UA W/REF REGAN CULTU RE culture indication CULTUR E NOT INDICA NATALIE Not Available [facility] (Centralized Electronic Ordering - All Locations) Patient Can Go To The Location Of Their Choice, [facility] 02/17/2022 01:53:39 02/17/20 22 02/16/2022 urina lysis , dipst ick Leukocytes neg Not Available [facility] - [facility] [address] [place] [address], [phone] 02/16/2022 16:23:39 02/17/20 22 02/16/2022 urina lysis , dipst ick Nitrite negati ve Not Available [facility] - [facility] [address] [place] [address], [phone] 02/16/2022 16:23:39 02/17/20 22 02/16/2022 urina lysis , dipst ick Protein 4+ Not Available Main - [facility] [address], [address] 02/16/2022 16:23:39 02/17/20 22 02/16/2022 urina lysis , dipst ick Ketone 2+ Not Available Main - [facility] [address], [address] 02/16/2022 16:23:39 02/17/20 22 02/16/2022 urina lysis , dipst ick Glucose negati ve Not Available [facility] - [facility] [address] [place] [address], [phone] 02/16/2022 16:23:39 02/17/20 22 02/16/2022 cmp, whole blood + picco lo ALB 2.8 Not Available Main - [facility] [address], [address] 02/16/2022 16:22:48 02/17/20 22 02/16/2022 cmp, whole blood + picco lo ALP 114 Not Available Main - [facility] [address], [address] 02/16/2022 16:22:48 02/17/20 22 02/16/2022 cmp, whole blood + picco lo ALT 12 Not Available Main - [facility] [address], [address] 02/16/2022 16:22:48 02/17/20 22 02/16/2022 cmp, whole blood + picco lo AST 18 Not Available Main - [facility] [address], [address] 02/16/2022 16:22:48 02/17/20 22 02/16/2022 cmp, whole blood + picco lo BUN 17 Not Available Main - [facility] [address], [address] 02/16/2022 16:22:48 02/17/20 22 02/16/2022 cmp, whole blood + picco lo Ca 9.8 Not Available Main - [facility] [address], [address] 02/16/2022 16:22:48 02/17/20 22 02/16/2022 cmp, whole blood + picco lo CI- normal Not Available Main - [facility] [address], [address] 02/16/2022 16:22:48 02/17/20 22 02/16/2022 cmp, whole blood + picco lo CRE 1.3 Not Available Main - [facility] [address], [address] 02/16/2022 16:22:48 02/17/20 22 02/16/2022 cmp, whole blood + picco lo GLU 326 Not Available Main - [facility] [address], [address] 02/16/2022 16:22:48 02/17/20 22 02/16/2022 cmp, whole blood + picco lo K+ 3.8 Not Available Main - [facility] [address], [address] 02/16/2022 16:22:48 02/17/20 22 02/16/2022 cmp, whole blood + picco lo Na+ 138 Not Available Main - [facility] [address], [address] 02/16/2022 16:22:48 02/17/20 22 02/16/2022 cmp, whole blood + picco lo tCO2 27 Not Available Main - [facility] [address], [address] 02/16/2022 16:22:48 Result Notes None recorded. Medical Equipment None Reported. Allergies Allergen ID Allergen Name Allergen Category Reaction Reaction Severity Criticality Documentation Date Start Date Code Code System Note Provider Name and Address Organization Details Recorded Time 12789 Motrin medicatio n Not available Not available Not available 09/18/202466211 8 RxNorm Not Available [facility] - production 4 15:17:42 55232 acetamino phen / oxycodone medicatio n Not available Not available Not available 09/18/2024 24202 3 RxNorm Not Available [facility] - production 4 15:17:42 50575 tramadol medicatio n Not available Not available Not available 09/18/2024 84278 RxNorm Not Available [facility] - production 4 [...] 0.3 %-dexamethas one 0.1 % eye drops,suspen ihasn INSTILL 1 DROP IN EACH EYE FOUR [...] Not Available No t Available Dexcom G7 Nursing Informatics Clinical Analyst USE DIRECTED active Not Available Not Available [...] L/min 146 mm[Hg] 65 mm[Hg] Not Available [facility] [employer] 3 16:22:45 Date Recorded Heart rate Oxygen saturation Oxygen saturation in Arterial blood by Pulse oximetry Body temperature Respiratory rate Systolic blood pressure Diastolic blood pressure Provider Name and Address Organization Details Last Updated DateTime 4 78 /min 93 % 93 % 97.1 [degF] 16 /min 137 mm[Hg] 76 mm[Hg] Not Available [facility] [employer] 4 20:04:27 Date Recorded Oxygen saturation Oxygen [...] cm 99 % 99 % 98.9 [degF] 85006.2 4 g 20 /min 164 mm[Hg] 63 [...] Note 1594 Hanane Mena MD Main - [address] [address] 02/16/2022 14:13:00 05/29/2022 14:46:24 Acute low back pain 832281809 M54.50 Pt p/w 5 days of atraumatic [...] no improvemen t in pain consider imagingPer marketing content coordinator, requestor asked for CBC w/ diff and CMP (not acknowledg ed in [facility] portal) but no orders placed. Reasonable to check CBC w/ diff and CMP thus orders placed. Ketonuria [id number] R82. 4 Pt with 2+ urinary ketones [...] and call PCP if FSG > 350. [id number] Damien Alfredo MD Main - [facility] [address] [place] [phone] 04/08/2023 16:22:43 04/08/2023 23:08:09 Hypoxia 777537631 R09.02 82068 Wander Smith MD Main - [facility] [address] [place] [phone] 09/18/2024 20:04:23 09/18/2024 21:06:53 Acute exacerbation of chronic obstructive pulmonary disease 600177361 J44.1 Health Concerns Section Related Observation LastModified by Organization Detai ls LastModified Time None Recorded Concern Status LastModified by Organization Details LastModified Time None Recorded Advance Directives Directive None Recorded Payers Insurance Date Sequence Insurance Name Policy Number Policy Rendon Covered Member ID Rendon Member ID Guarantor Name 04/08/2023 1 [facility] - DOS PRIOR TO 2023 - DUAL ELIGIBLE (MEDICARE REPLACEMENT/AD VANTAGE - HMO) Katherine Griffith [id number] Katherine Griffith 09/18/2024 1 [facility] - DOS ON OR AFTER 2023 - DUAL ELIGIBLE - LONGTERM OPTIONS AND ONE CARE (MEDICARE REPLACEMENT/AD VANTAGE - HMO) Katherine Griffith [id number] Katherine Griffith Notes Date Note Type Note [...] .................... .................... .................... .................... .................... .................... . Accounting/Finance Tutor Note: Patient is a 76 year old [...] seen by urologist last month according to career technical supervisor, kidney function was good. Urine sample obtained and dipped; changes in PRO, SG and KET detected. Urine sent to [facility] for UA and Culture. Vital signs obtained and all within normal limits. Red flags discussed. Consulted with Dr. Mena. Patient is to follow up with PCP/care team regarding her signs, symptoms and todays visit. Dr. Mena recommended blood work. Accounting/Finance Tutor Sara Davis was dispatched for procedure. See marketing content coordinator Sara Davis run report for further patient [...] suggests h Hanane Mena MD [address] [facility],[address], [place], [address], [employer] 02/16/2022 16:24:46 04/08/2023 text/html [facility] Nursing Assessment: Reason For Request: Daughter [...] member name/- Damien Alfredo MD [address] [facility],[address], [place], [address], [employer] 04/08/2023 16:28:34 09/18/2024 text/html [facility] Nurse Triage Notes (Elina Lopez - [...] s/s and seek emergency treatment if needed. Accounting/Finance Tutor Organization Information for [facility] Business Legal Name: [facility] Transportation Address: [address] [place] [address], [place] [address], Cyber Special Agent: Louis Stockton MD CLIA No.: [id number] Accounting/Finance Tutor POC Test Results from [facility] Rapid COVID antigen (20:02:29) COVID: - Rapid influenza antigen (20:02:30) Flu: - Wander Smith MD [address] [place] [address],[address], [place], [address], [place] - [employer] 09/18/2024 21:05:29 OBGyn Episode No OBEpisode recorded.
--- OUTSIDE RECORDS SUMMARY | 2025-02-19 09:09 | XMS_ITS | Encounter Summary ---
Author Organization [employer] Address [address] [facility] 7t [place] [address] Care Team Providers Care Area Operations Director Name Role Phone Marycarmen Quijano MD Primary Care Provider [phone] Reason for Visit * Reason Comments Med Refill Encounter Details Date Type Department Care Team ([facility] Contact Info) Description 04/12/2023 Refill [facility] WALK-[facility] CENTER [address] [place] [address] Jsoe Johnson MD [address] [place] [address] Social History Tobacco Use Types Packs/Day Years [...] Upcoming Encounters Date Type Department Care Team ([facility] Contact Info) Description 02/27/2025 10:00 AM EDT Office Visit [facility] ADULT DENTAL [address] [place] [address] Moy Caldwell DDS [address] [place] [address] 07/25/2025 10:00 AM EDT Office Visit [facility] ADULT DENTAL [address] [place] [address] RadhaJohana [address] [place] [address] documented as of this encounter Visit Diagnoses Not on filedocumented in this encounter Care Teams Area Operations Director Relationship Specialty Start Date End Date Marycarmen Quijano MD [address] [place] [address] PCP - General Family Medicine 03/02/23 06/20/23 documented as of this encounter
--- OUTSIDE RECORDS SUMMARY | 2025-02-19 09:09 | XMS_ITS | Encounter Summary ---
Author Organization [employer] Address [address] [place] [address] 7t [place] [address] Care Team Providers Care Cage/Vault Supervisor Name Role Phone Marycarmen Quijano MD Primary Care Provider [phone] Reason for Visit * Reason Comments Med Refill Encounter Details Date Type Department Care Team ([facility] Contact Info) Description 02/06/2023 Refill [facility] MEDICINE [address] [place], [place] [phone] Marycarmen Quijano MD 230 [place], [place] [phone] Social History Tobacco Use Types Packs/Day Years [...] Upcoming Encounters Date Type Department Care Team ([facility] Contact Info) Description 02/27/2025 10:00 AM EDT Office Visit [facility] ADULT DENTAL [address] [place] [address] Moy Caldwell DDS [address] [place] [address] 07/25/2025 10:00 AM EDT Office Visit [facility] ADULT DENTAL [address] [place] [address] RadahJohana [address] [place] [address] documented as of this encounter Visit Diagnoses Not on filedocumented in this encounter Care Teams Cage/Vault Supervisor Relationship Specialty Start Date End Date Marycarmen Quijano MD [address] [place] [address] PCP - General Family Medicine 03/02/23 06/20/23 documented as of this encounter
--- OUTSIDE RECORDS SUMMARY | 2025-02-19 09:10 | XMS_ITS | Encounter Summary ---
Author Organization [employer] Address [address] [place] [address] 7t [place] [address] Care Team Providers Care Engine Watchman Name Role Phone Unavailable Primary Care Provider Unavailabl e Reason for Visit * Reason Comments Med Refill Encounter Details Date Type Department Care Team (Late Contact Info) Description 11/24/2023 Refill [facility] MEDICINE [address] [place] [address] Christianne John MD [address] [place] [address] Moderate persistent asthma, unspecified whether complicated Social [...] 10:00 AM EDT Office Visit [facility] ADULT DENTAL [address] [place] [address] Moy Caldwell DDS [address] [place] [address] 07/25/2025 10:00 AM EDT Office Visit [facility] ADULT DENTAL [address] [place] [address] Johana Garcia [address] [place] [address] documented as of this encounter Visit Diagnoses Diagnosis Moderate persistent asthma, unspecified whether complicated documented in this encounter
--- OUTSIDE RECORDS SUMMARY | 2025-02-19 09:10 | XMS_ITS | Clinical Summary ---
Author Organization [employer] Address [address] [facility] 7t [place] [address] Care Team Providers Care Kaiwhakahaere Name Role Phone Unavailable Primary Care Provider [...] BEDTIME 2 Active Blood Glucose Monitoring Suppl (EarshotStyle Havana Lite) w/Device kit TEST BLOOD SUGAR THREE [...] by mouth at bed time. Active Creon 36418-39934 units capsule 3 Active pantoprazole (ProtoNix) 40 [...] 3 Active ergocalciferol (Vitamin D2) 1.25 MG (34604 UT) capsule TAKE 1 CAPSULE BY MOUTH [...] Description 01/12/2025 9:00 AM EDT Office Visit [facility] ADULT DENTAL [address] [place] [address] Johana Garcia Dental plaque (Primary Dx); Localized gingival recession, severe; Partially edentulous maxilla, unspecified edentulism class; Partially edentulous mandible, unspecified edentulism class 01/11/2025 9:00 AM EDT Office Visit [facility] ADULT DENTAL [address] [place] [address] Johana Garcia Heart valve replaced (Primary Dx) 12/04/2024 9:00 AM EST Office Visit [facility] ADULT DENTAL [address] [place] [address] Moy Caldwell DDS Partial edentulism, unspecified edentulism class (Primary Dx) from Last 3 Months Immunizations Immunization Administration Dates Next Due Hep B, adult [...] Description 02/27/2025 10:00 AM EDT Office Visit [facility] ADULT DENTAL [address] [place] [address] Moy Caldwell DDS [address] [place] [address] 07/25/2025 10:00 AM EDT Office Visit [facility] ADULT DENTAL [address] [place] [address] Johana Garcia [address] [place] [address] Health Maintenance Due Date Last Done Comments [...] patient's age to complete this topic Meningococcal B Vaccine Aged Out No l onger eligible based on patient's age to complete [...] average glucose, using the formula of the F5Q-[id number] Average Glucose study (ADAG), Diabetes Care, Vol.31,#8, [...] 239 mg/dL HDL Cholesterol 51 mg/dL [facility] Comment: Desirable HDL: ??greater than 40 mg/dL ?? Note: This HDL assay may give artificially ? low results in patients with liver disease. LDL Cholesterol Calculated 90 mg/dl [facility] Comment: Desirable LDL: ? less [...] Alanine Aminotransferase 14 0 - 31 U/L [facility] Albumin Level 3.7 3.5 - 5.0 g/dL [facility] Alkaline Phosphatase 120(H) 39 - 117 U/L [facility] Anion Gap 14 12 - 20 [facility] Aspartate Amino Transferase 16 5 - 31 U/L [facility] Bilirubin Total 0.4 0.0 - 1.0 mg/dL [facility] Blood Urea Nitrogen 25(H) 9 - 16 mg/dL [facility] Calcium 8.8 8.4 - 10.2 mg/dL [facility] Carbon Dioxide 25 22 - 29 mmol/L [facility] Chloride 105 96 - 108 mmol/L [facility] Creatinine, Serum 1.35 0.5 - 1.4 mg/dL [facility] Estimated Glomerular Filt Rate 38 [facility] Comment: NOTE: ??For -Mauritian individuals, multiply the result ?by 210. ?? [...] Final Result [facility] [address] from Last 3 Months or Most Recently Relevant to Health Maintenance Insurance [facility] [employer] OPT[employer] (O D-SNP) YASMIN FRANCO [id number] [facility]
--- OUTSIDE RECORDS SUMMARY | 2025-02-19 09:10 | XMS_ITS | Encounter Summary ---
Author Organization [employer] [facility] Address [address] [place] [address] 7t [place] [address] Care Team Providers Care Fertilizer Applicator Name Role Phone Marycarmen Quijano MD Primary Care Provider [phone] Marycarmen Quijano MD Primary Care Provider [phone] Encounter Details Date Type Department Care Team (Latest Contact Info) Description 06/16/2021 Abstract [facility] CONVERSIONS Dental, Provider, DDS Social History [...] Description 02/27/2025 10:00 AM EDT Office Visit [facility] ADULT DENTAL [address] [place] [address] Moy Caldwell DDS [address] [place] [address] 07/25/2025 10:00 AM EDT Office Visit [facility] ADULT DENTAL [address] [place] [address] Johana Garcia [address] [place] [address] documented as of this encounter Visit Diagnoses Not on filedocumented in this encounter Care Teams Fertilizer Applicator Relationship Specialty Start Date End Date Marycarmen Quijano MD [address] [place] [address] PCP - General Family Medicine 07/26/13 02/01/23 Marycarmen Quijano MD [address] [place] [address] PCP - General Family Medicine 03/02/23 06/20/23 documented as of this encounter
--- OUTSIDE RECORDS SUMMARY | 2025-02-19 09:10 | XMS_ITS ---
Author Organization [facility] Address [address] [place] [address] Care Team Providers Care Utilization Coordinator Name Role Phone Jaime VORA, Shelby Primary Care Provider Unavail able Randy eLal Unavailable [phone] Allergies Allergen (clinical drug ingredient) Drug/Non Drug [...] Ordered Date Performed Result Body Sit e 61330-SOPAXXB NAIL, 6 OR MORE 12/26/2024 N/A 11522-Mtvmbdym Plate 12/26/2024 N/A 97668-JZQQ SKIN LESIONS, 2 TO 4 12/26/2024 N/A Encounters Encounter Location Date Provider Diagnosis [facility] Kevin [address] [place] [address] 12/26/2024 Randy Leal Type 2 diabetes mellitus [...] INSTRUCTIONS.pdf) Pending Test Test Name Order Date 70389-TEALACP NAIL, 6 OR MORE 12/26/2024 59158-Qswufpzb Plate 12/26/2024 95371-JQMP SKIN LESIONS, 2 TO 4 12/27/19 Next Appt Details Follow Up: 3 Months, Reason: Provider Name:Randy Leal , 03/27/2025 09:30:00 AM, [address] [place] [address], [id number], Procedure Notes * Category Sub-Category Detail Notes [...] and future surgical procedures to prevent recurrence (36026), DIABETES: Pt was advised as to the [...] use of a nail nipper and/or dremel-type glaze grinder, to a more viable healthy nail [...] to maintain effectiveness in symptomatic relief - 91729 Keratoma Treatment Parring or Cutting o f [...] instrumentation by the physician of record - 99433 Progress Notes * Katherine DIASDOB: 5 (79 yo F)Acc No.[id number]:12/26/2024 Progress Note Patient:Katherine UNDERWOOD Provider:?Randy Leal DPM :1945???Age:79 Y???Sex:Female D ate:12/26/2024 Address:[address] [place], [place] [id number] Pcp:Shelby Sandoval MD Subjective: * Chief Complaints: [...] , Female , who serves as , Logistics Associate/Scrubber Machine Tender , and/who is physically present in exam [...] hematoma of lef t foot, initial encounter?Procedure: 84198-Sqozjuab Plate * Procedures:?Debride Nail 6-10:?Nail debridement?Due to [...] use of a nail nipper and/or dremel-type glaze grinder, to a more viable healthy nail [...] to maintain effectiveness in symptomatic relief - 29739.?Keratoma Treatment:?Parring or Cutting of Benign Hyperkeratotic Lesion(s)?(-56) [...] instrumentation by the physician of record - 69172.?Nail Avulsion:?Location?TA, Total nail.?Anesthesia?was deferred - NEUROPATHY: patient [...] and future surgical procedures to prevent recurrence (29139), DIABETES: Pt was advised as to the risk of delayed or nonhealing due to diabetes. Pt is to call the office with any questions, concerns, or complications.? * Procedure Codes:?51632 DEBRI DE NAIL, 6 OR MORE, Modifiers: XS 81686 TRIM SKIN LESIONS, 2 TO 4, Modifiers: XS 06435 Avulsion Plate, Modifiers: XS , TA * [...] Leal DPM Date:?2024 Generated for Herber olea/Rolando/Emely on:?02/19/2025 09:09 AM EDT History and Physical Notes * [...] , Female , who serves as , Logistics Associate/Scrubber Machine Tender , and/who is physically present in exam [...]
--- OUTSIDE RECORDS SUMMARY | 2025-02-19 09:10 | XMS_ITS | Encounter Summary ---
Author Organization [employer] Address [address] [place] [address] 7t [place] [address] Care Team Providers Care Studio Couch Frame Builder Name Role Phone Marycarmen Quijano MD Primary Care Provider [phone] Marycarmen Quijano MD Primary Care Provider [phone] Reason for Visit * Reason Comments Med Refill Encounter Details Date Type Department Care Team (Late st Contact Info) Description 11/10/2022 Refill [facility] MEDICINE [address] [place] [address] Marycarmen Quijano MD [address] [place] [address] Social History Tobacco Use Types Packs/Day Years [...] Visit [facility] ADULT DENTAL [address] [place] [address] Moy Caldwell DDS [address] [place] [address] 07/25/2025 10:00 AM EDT Office Visit [facility] ADULT DENTAL [address] [place] [address] Johana Garcia [address] [place] [address] documented as of this encounter Visit Diagnoses Not on filedocumented in this encounter Care Teams Studio Couch Frame Builder Relationship Specialty Start Date End Date Marycarmen Quijano MD [address] [place] [address] PCP - General Family Medicine 07/26/13 02/01/23 Marycarmen Quijano MD [address] [place] [address] PCP - General Family Medicine 03/02/23 06/20/23 documented as of this encounter
--- OUTSIDE RECORDS SUMMARY | 2025-02-19 09:10 | XMS_ITS | Encounter Summary ---
Author Organization [employer] Address [address] [place] [address] 7t [place] [address] Care Team Providers Care Brakeshoe Repairer Name Role Phone Unavailable Primary Care Provider Unavailabl e Reason for Visit * Reason Comments Med Refill Encounter Details Date Type Department Care Team (Late Contact Info) Description 01/19/[address] [facility] MEDICINE [address] [place] [address] Christianne John MD [address] [place] [address] Vitamin deficiency Social History Tobacco Use Types [...] 02/27/2025 10:00 AM EDT Office Visit [facility] ADULT DENTAL [address] [place] [address] Moy Caldwell DDS [address] [place] [address] 07/25/2025 10:00 AM EDT Office Visit [facility] ADULT DENTAL [address] [place] [address] Johana Garcia [address] [place] [address] documented as of this encounter Visit Diagnoses Diagnosis Vitamin deficiency Unspecified vitamin deficiency documented in this encounter
--- OUTSIDE RECORDS SUMMARY | 2025-02-19 09:10 | XMS_ITS | Encounter Summary ---
Author Organization [employer] Address [address] [place] [address] 7t [place] [address] Care Team Providers Care Marine Designer Name Role Phone Unavailable Primary Care Provider Unavailabl e Reason for Visit * Reason Comments Med Refill Encounter Details Date Type Department Care Team (Late Contact Info) Description 12/02/2023 Refill [facility] MEDICINE [address] [place] [phone] Christianne John MD [address] [place] [address] Moderate persistent asthma, unspecified whether complicated Social [...] Description 02/27/2025 10:00 AM EDT Office Visit [facility] ADULT DENTAL [address] [place] [address] Moy Caldwell DDS [address] [place] [address] 07/25/2025 10:00 AM EDT Office Visit [facility] ADULT DENTAL [address] [place] [address] Johana Garcia [address] [place] [address] documented as of this encounter Visit Diagnoses Diagnosis Moderate persistent asthma, unspecified whether complicated documented in this encounter
--- OUTSIDE RECORDS SUMMARY | 2025-02-19 09:10 | XMS_ITS ---
Author Organization [facility] Address [address] [place] [address] Care Team Providers Care Administrative Library Assistant Name Role Phone Jaime VORA, Shelby Primary Care Provider Unavail Randy Marshall Unavailable [phone] Encounters Encounter Location Date Provider Diagnosis [address] [address] 09/19/2024 Randy Leal Plan Of Treatment Next Appt Details Provider Name:Randy Leal , 03/27/2025 09:30:00 AM, [address] [place], [address], Progress Notes * Katherine DIASDOB: (79 yo F)Acc No.[id number]:09/19/2024 Progress Note Patient:?ARUNKatherine Provider:?Randy Leal DPM :1945???Age:79 Y???Sex:Female D ate:09/19/2024 Address:[address] [place], [place] [address] Pcp:Shelby Sandoval MD Subjective: * Chief Complaints: [...] Leal DPM Date:?2023 Generated for Herber olea/Rolando/Emely on:?02/19/2025 09:09 AM EDT
--- OUTSIDE RECORDS SUMMARY | 2025-02-19 09:10 | XMS_ITS | Encounter Summary ---
Author Organization [employer] Address [address] [place] [address] 7t [place] [address] Care Team Providers Care Geodetic Surveyor Name Role Phone Unavailable Primary Care Provider Unavailabl e Reason for Visit * Reason Comments Med Refill Encounter Details Date Type Department Care Team (Late Contact Info) Description 11/29/2023 Refill [facility] MEDICINE [address] [place] [address] Christianne John MD [address] [place] [address] Moderate persistent asthma, unspecified whether complicated Social [...] Office Visit [facility] ADULT DENTAL [address] [place] [address] Moy Caldwell DDS [address] [place] [address] 07/25/2025 10:00 AM EDT Office Visit [facility] ADULT DENTAL [address] [place] [address] Johana Garcia [address] [place] [address] documented as of this encounter Visit Diagnoses Diagnosis Moderate persistent asthma, unspecified whether complicated documented in this encounter
--- OUTSIDE RECORDS SUMMARY | 2025-02-19 09:10 | XMS_ITS | Encounter Summary ---
Author Organization [employer] Address [address] [place] [address] 7t [place] [address] Care Team Providers Care Warp Trucker Name Role Phone Marycarmen Quijano MD Primary Care Provider [phone] Reason for Visit * Reason Comments Med Refill Encounter Details Date Type Department Care Team ([facility] Contact Info) Description 04/15/2023 Refill [facility] MEDICINE [address] [place], [place] [phone] Marycarmen Quijano MD [address] [place], [place] [phone] Social History Tobacco Use Types Packs/Day Years [...] Upcoming Encounters Date Type Department Care Team ([facility] Contact Info) Description 02/27/2025 10:00 AM EDT Office Visit [facility] ADULT DENTAL [address] [place] [address] Moy Caldwell DDS [address] [place] [address] 07/25/2025 10:00 AM EDT Office Visit [facility] ADULT DENTAL [address] [place] [address] RadhaJohana [address] [place] [address] documented as of this encounter Visit Diagnoses Not on filedocumented in this encounter Care Teams Warp Trucker Relationship Specialty Start Date End Date Marycarmen Quijano MD [address] [place] [address] PCP - General Family Medicine 03/02/23 06/20/23 documented as of this encounter
--- OUTSIDE RECORDS SUMMARY | 2025-02-19 09:10 | XMS_ITS | Encounter Summary ---
Author Organization [employer] Address [address] [place] [address] 7t [place] [address] Care Team Providers Care Flight Crew Ordnanceman Name Role Phone Unavailable Primary Care Provider Unavailabl e Reason for Visit * Reason Comments Med Refill Encounter Details Date Type Department Care Team (Late Contact Info) Description 12/01/2023 Refill [facility] MEDICINE [address] [place] [address] Christianne John MD [address] [place] [address] Moderate persistent asthma, unspecified whether complicated Social [...] Visit [facility] ADULT DENTAL [address] [place] [address] Moy Caldwell DDS [address] [place] [address] 07/25/2025 10:00 AM EDT Office Visit [facility] ADULT DENTAL [address] [place] [address] Johana Garcia [address] [place] [address] documented as of this encounter Visit Diagnoses Diagnosis Moderate persistent asthma, unspecified whether complicated documented in this encounter
== END 2025-02-19 09:28 | disposition home or self-care (01) ==
LOC: HO.ENCR 08:57
PROVIDERS: PCP Internal Medicine; Visit Provider Student in an Organized Health Care Education/Training Program
DX: E21.3 Hyperparathyroidism, unspecified (principal)
CPT/HCPCS: 99214

== ENCOUNTER 2025-02-19 09:39 | Outpatient (REF) | payer OTHER, SELFPAY ==
--- OUTSIDE RECORDS SUMMARY | 2025-02-19 09:57 | XMS_ITS | Encounter Summary ---
Author Organization [employer] Address [address] [place] [address] 7t [place] [address] Care Team Providers Care Structural Steel Erection Supervisor Name Role Phone Marycarmen Quijano MD Primary Care Provider [phone] Reason for Visit * Reason Comments Med Refill Encounter Details Date Type Department Care Team ([facility] Contact Info) Description 02/06/2023 Refill [facility] [address] [place], [place] [phone] Marycarmen Quijano MD [address] [place], [place] [phone] Social History Tobacco Use Types Packs/Day Years [...] Upcoming Encounters Date Type Department Care Team ([facility] Contact Info) Description 02/27/2025 10:00 AM EDT Office Visit [facility] [address] [place] [address] Moy Caldwell DDS [address] [place] [address] 07/25/2025 10:00 AM EDT Office Visit [facility] [address] [place] [address] RadhaJohana [address] [place] [address] documented as of this encounter Visit Diagnoses Not on filedocumented in this encounter Care Teams Structural Steel Erection Supervisor Relationship Specialty Start Date End Date Marycarmen Quijano MD [address] [place] [address] PCP - General Family Medicine 03/02/23 06/20/23 documented as of this encounter
--- OUTSIDE RECORDS SUMMARY | 2025-02-19 09:57 | XMS_ITS | Encounter Summary ---
Author Organization [employer] Address [address] [place] [address] 7t [place] [address] Care Team Providers Care Teletypewriter Installer Name Role Phone Marycarmen Quijano MD Primary Care Provider Reason for Visit * Reason Comments Med Refill Encounter Details Date Type Department Care Team ([facility] Contact Info) Description 04/04/2023 Refill [facility] MED[facility]INE [address] [place], [place] [phone] Marycarmen Quijano MD [address] [place], [place] [phone] Social History Tobacco Use Types Packs/Day Years [...] Encounters Date Type Department Care Team ([facility] Contact Info) Description 02/27/2025 10:00 AM EDT Office Visit [facility] ADULT DENTAL [address] [place] [address] Moy Caldwell DDS [address] [place] [address] 07/25/2025 10:00 AM EDT Office Visit [facility] ADULT DENTAL [address] [place] [address] RadhaJohana [address] [place] [address] documented as of this encounter Visit Diagnoses Not on filedocumented in this encounter Care Teams Teletypewriter Installer Relationship Specialty Start Date End Date Marycarmen Quijano MD [address] [place] [address] PCP - General Family Medicine 03/02/23 06/20/23 documented as of this encounter
--- OUTSIDE RECORDS SUMMARY | 2025-02-19 09:57 | XMS_ITS | Encounter Summary ---
Author Organization [employer] [facility] Address [address] [place] [address] 7t [place] [address] Care Team Providers Care Community Health Director Name Role Phone Marycarmen Quijano MD Primary Care Provider [phone] Marycarmen Quijano MD Primary Care Provider [phone] Encounter Details Date Type Department Care Team (Latest Contact Info) Description 06/16/2021 Abstract [facility] CONVERSIONS Dental, Provider, DDS Social History [...] [facility] ADULT DENTAL [address] [place] [address] Moy Caldwell DDS [address] [place] [address] 07/25/2025 10:00 AM EDT Office Visit [facility] ADULT DENTAL [address] [place] [address] Johana Garcia [address] [place] [address] documented as of this encounter Visit Diagnoses Not on filedocumented in this encounter Care Teams Community Health Director Relationship Specialty Start Date End Date Marycarmen Quijano MD [address] [place] [address] PCP - General Family Medicine 07/26/13 02/01/23 Marycarmen Quijano MD [address] [place] [address] PCP - General Family Medicine 03/02/23 06/20/23 documented as of this encounter
--- OUTSIDE RECORDS SUMMARY | 2025-02-19 09:57 | XMS_ITS | Encounter Summary ---
Author Organization [employer] Address [address] [place] [address] 7t [place] [address] Care Team Providers Care New Grad Rn Name Role Phone Marycarmen Quijano MD Primary Care Provider [phone] Reason for Visit * Reason Comments Med Refill Encounter Details Date Type Department Care Team ([facility] Contact Info) Description 03/07/2023 Refill [facility] MED & PEDS [address] [place], [place] [phone] Marycarmen Quijano MD [address] [place], [place] [phone] Social History Tobacco Use Types Packs/Day Years [...] Upcoming Encounters Date Type Department Care Team ([facility] Contact Info) Description 02/27/2025 10:00 AM EDT Office Visit [facility] ADULT DENTAL [address] [place], [place] [phone] Moy Caldwell DDS [address] [place], [place] [phone] 07/25/2025 10:00 AM EDT Office Visit [facility] ADULT DENTAL [address] [place] [address] Santos Garciaaris [address] [place] [address] documented as of this encounter Visit Diagnoses Not on filedocumented in this encounter Care Teams New Grad Rn Relationship Specialty Start Date End Date Marycarmen Quijano MD [address] [place] [address] PCP - General Family Medicine 03/02/23 06/20/23 documented as of this encounter
--- OUTSIDE RECORDS SUMMARY | 2025-02-19 09:57 | XMS_ITS | Encounter Summary ---
Author Organization [employer] Address [address] [place] [address] 7t [place] [address] Care Team Providers Care Rn Intake Name Role Phone Marycarmen Quijano MD Primary Care Provider [phone] Reason for Visit * Reason Comments Med Refill Encounter Details Date Type Department Care Team ([facility] Contact Info) Description 03/03/2023 Refill [facility] CHC MED & PEDS [address] [place], [place] [phone] Marycarmen Quijano MD 230 [place] [address] Primary hypertension Social History Tobacco Use Types [...] Description 02/27/2025 10:00 AM EDT Office Visit [facility] ADULT DENTAL [address] [place] [address] Moy Caldwell DDS [address] [place] [address] 07/25/2025 10:00 AM EDT Office Visit [facility] ADULT DENTAL [address] [place], [place] [phone] RadhaJohana [address] [place] [address] documented as of this encounter Visit Diagnoses Diagnosis Primary hypertension Unspecified essential hypertension documented in this encounter Care Teams Rn Intake Relationship Specialty Start Date End Date Marycarmen Quijano MD 230 [place] [address] PCP - General Family Medicine 03/02/23 06/20/23 documented as of this encounter
--- OUTSIDE RECORDS SUMMARY | 2025-02-19 09:57 | XMS_ITS | Encounter Summary ---
Author Organization [employer] Address [address] [place] [address] 7[place] [address] Care Team Providers Care Garment Presser Name Role Phone Marycarmen Quijano MD Primary Care Provider [phone] Marycarmen Quijano MD Primary Care Provider [phone] Reason for Visit * Reason Comments Med Refill Encounter Details Date Type Department Care Team (Late st Contact Info) Description 11/10/2022 Refill [facility] MEDICINE [address] [place] [address] Marycarmen Quijano MD [address] [place] [address] Social History Tobacco Use Types Packs/Day Years [...] Description 02/27/2025 10:00 AM EDT Office Visit [facility] ADULT DENTAL [address] [place] [address] Moy Caldwell DDS [address] [place] [address] 07/25/2025 10:00 AM EDT Office Visit [facility] ADULT DENTAL [address] [place] [address] Johana Garcia [address] [place] [address] documented as of this encounter Visit Diagnoses Not on filedocumented in this encounter Care Teams Garment Presser Relationship Specialty Start Date End Date Marycarmen Quijano MD 230 [place] [address] PCP - General Family Medicine 07/26/13 02/01/23 Marycarmen Quijano MD [address] [place] [address] PCP - General Family Medicine 03/02/23 06/20/23 documented as of this encounter
--- OUTSIDE RECORDS SUMMARY | 2025-02-19 09:57 | XMS_ITS | Encounter Summary ---
Author Organization [employer] Address [address] [place] [address] 7t [place] [address] Care Team Providers Care Director Enterprise Data Architecture Name Role Phone Unavailable Primary Care Provider Unavailabl e Reason for Visit * Reason Comments Med Refill Encounter Details Date Type Department Care Team (Late Contact Info) Description 01/19/2024 Refill [facility] MEDICINE [address] [place] [address] Christianne John MD 230 [place] [address] Vitamin deficiency Social History Tobacco Use Types [...] Description 02/27/2025 10:00 AM EDT Office Visit [facility] ADULT DENTAL 230 [place] [address] Moy Caldwell DDS [address] [place] [address] 07/25/2025 10:00 AM EDT Office Visit [facility] ADULT DENTAL 230 [place] [address] Johana Garcia 230 [place] [address] documented as of this encounter Visit Diagnoses Diagnosis Vitamin deficiency Unspecified vitamin deficiency documented in this encounter
--- OUTSIDE RECORDS SUMMARY | 2025-02-19 09:57 | XMS_ITS | Encounter Summary ---
Author Organization [employer] Address [address] [place] [address] 7t [place] [address] Care Team Providers Care Copier Repair Technician Name Role Phone Marycarmen Quijano MD Primary Care Provider [phone] Reason for Visit * Reason Comments Med Refill Encounter Details Date Type Department Care Team ([facility] Contact Info) Description 04/15/2023 Refill [facility] MEDICINE [address] [place], [place] [phone] Marycarmen Quijano MD [address] [place], [place] [phone] Social History Tobacco Use Types Packs/Day Years [...] Upcoming Encounters Date Type Department Care Team ([facility] Contact Info) Description 02/27/2025 10:00 AM EDT Office Visit [facility] ADULT DENTAL [address] [place] [address] Moy Caldwell DDS [address] [place] [address] 07/25/2025 10:00 AM EDT Office Visit [facility] ADULT DENTAL [address] [place] [address] RadhaJohana [address] [place] [address] documented as of this encounter Visit Diagnoses Not on filedocumented in this encounter Care Teams Copier Repair Technician Relationship Specialty Start Date End Date Marycarmen Quijano MD [address] [place] [address] PCP - General Family Medicine 03/02/23 06/20/23 documented as of this encounter
--- OUTSIDE RECORDS SUMMARY | 2025-02-19 09:57 | XMS_ITS | Encounter Summary ---
Author Organization [employer] Address [address] [facility] 7t [place] [address] Care Team Providers Care Bleacher Operator Name Role Phone Marycarmen Quijano MD Primary Care Provider [phone] Reason for Visit * Reason Comments Med Refill Encounter Details Date Type Department Care Team ([facility] Contact Info) Description 04/12/2023 Refill [facility] [address] [place] [address] Jose Johnson MD [address] [place] [address] Social History Tobacco Use Types Packs/Day Years [...] Encounters Date Type Department Care Team ([facility] Contact Info) Description 02/27/2025 10:00 AM EDT Office Visit [facility] ADULT DENTAL [address] [place] [address] Moy Caldwell DDS [address] [place] [address] 07/25/2025 10:00 AM EDT Office Visit [facility] ADULT DENTAL [address] [place] [address] RadhaJohana [address] [place] [address] documented as of this encounter Visit Diagnoses Not on filedocumented in this encounter Care Teams Bleacher Operator Relationship Specialty Start Date End Date Marycarmen Quijano MD 230 [place] [address] PCP - General Family Medicine 03/02/23 06/20/23 documented as of this encounter
--- OUTSIDE RECORDS SUMMARY | 2025-02-19 09:57 | XMS_ITS | Clinical Summary ---
Author Organization [facility] 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 Chronic [...] arteriosclerosis 07/11/2012 Overview (12/07/2022): Cath 01/2010 at [facility] showed LCx 80% and ostial LAD [...] Visit [facility] [address]UR [address] [place] [address] Dominick Reece MD [address] [facility] [address] [place] [address] Health Maintenance Due Date Last Done Comments [...] A1C 8.5(H) <5 % [facility] Comments From [facility] Creatinine 1.35(H) 0.70 - 1.30 mg/dl [facility] Potassium 4.5 3.5 - 5.1 mmol/L [facility] Calcium 8.8 8.4 - 10.2 mg/dl [facility] eGFR Non- 38(L) >60 ml/min [facility] 09/18/2020 us [facility] [id number] LICITED RESULTS Final Result [facility] from Last 3 Months or Most Recently Relevant to Health Maintenance Insurance [facility] ([id number]) YASMIN FRANCO [id number] [facility] ([id number]) YASMIN FRANCO [id number] Care Teams Size Worker Relationship Specialty Start Date End Date Marycarmen Quijano MD [address] [place] [address] PCP - General 10/14/20
--- OUTSIDE RECORDS SUMMARY | 2025-02-19 09:57 | XMS_ITS | Encounter Summary ---
Author Organization [employer] Address [address] [place] [address] 7t [place] [address] Care Team Providers Care Hvac Mechanical Engineer Name Role Phone Marycarmen Quijano MD Primary Care Provider [phone] Reason for Visit * Reason Comments Med Refill Encounter Details Date Type Department Care Team ([facility] Contact Info) Description 03/10/2023 Refill [facility] CHC MED & PEDS [address] [place], [place] [phone] Marycarmen Quijano MD [address] [place] [address] Primary hypertension Social History Tobacco Use Types [...] 10:00 AM EDT Office Visit [facility] ADULT DENTAL [address] [place], [place] [phone] Moy Caldwell DDS [address] [place], [place] [phone] 07/25/2025 10:00 AM EDT Office Visit [facility] ADULT DENTAL [address] [place] [address] Johana Garcia [address] [place], [place] [phone] documented as of this encounter Visit Diagnoses Diagnosis Primary hypertension Unspecified essential hypertension documented in this encounter Care Teams Hvac Mechanical Engineer Relationship Specialty Start Date End Date Marycarmen Quijano MD [address] [place] [address] PCP - General Family Medicine 03/02/23 06/20/23 documented as of this encounter
--- OUTSIDE RECORDS SUMMARY | 2025-02-19 09:58 | XMS_ITS | Encounter Summary ---
Author Organization [employer] Address [address] [place] [address] 7t [place] [address] Care Team Providers Care Administrative Assistant Name Role Phone Unavailable Primary Care Provider Unavailabl e Reason for Visit * Reason Comments Med Refill Encounter Details Date Type Department Care Team (Late Contact Info) Description 12/02/2023 Refill [facility] MEDICINE [address] [place] [address] Christianne John MD [address] [place] [address] Moderate persistent asthma, unspecified whether complicated Social [...] Description 02/27/2025 10:00 AM EDT Office Visit [facility] ADULT DENTAL [address] [place] [address] Moy Caldwell DDS [address] [place] [address] 07/25/2025 10:00 AM EDT Office Visit [facility] ADULT DENTAL [address] [place] [address] Johana Garcia [address] [place] [address] documented as of this encounter Visit Diagnoses Diagnosis Moderate persistent asthma, unspecified whether complicated documented in this encounter
--- OUTSIDE RECORDS SUMMARY | 2025-02-19 09:58 | XMS_ITS | Encounter Summary ---
Author Organization [employer] Address [address] [place] [address] 7t [place] [address] Care Team Providers Care Ceramic Designer Name Role Phone Unavailable Primary Care Provider Unavailabl e Reason for Visit * Reason Comments Med Refill Encounter Details Date Type Department Care Team (Late Contact Info) Description 12/01/2023 Refill [facility] MEDICINE [address] [place] [phone] Christianne John MD [address] [place] [phone] Moderate persistent asthma, unspecified whether complicated Social [...] Description 02/27/2025 10:00 AM EDT Office Visit [facility] ADULT DENTAL [address] [place] [address] Moy Caldwell DDS [address] [place] [address] 07/25/2025 10:00 AM EDT Office Visit [facility] ADULT DENTAL [address] [place] [address] Johana Garcia [address] [place] [address] documented as of this encounter Visit Diagnoses Diagnosis Moderate persistent asthma, unspecified whether complicated documented in this encounter
--- OUTSIDE RECORDS SUMMARY | 2025-02-19 09:58 | XMS_ITS | Clinical Summary ---
Author Organization [employer] Address [address] [facility] 7t [place] [address] Care Team Providers Care Ophthalmology Technician Name Role Phone Unavailable Primary Care [...] BEDTIME 2 Active Blood Glucose Monitoring Suppl (2[employer] Media SolutionsStyle [place] Lite) w/Device kit TEST BLOOD SUGAR THREE [...] by mouth at bed time. Active Creon 50456-57002 units capsule 3 Active pantoprazole (ProtoNix) 40 [...] 3 Active ergocalciferol (Vitamin D2) 1.25 MG (35673 UT) capsule TAKE 1 CAPSULE BY MOUTH [...] Description 01/12/2025 9:00 AM EDT Office Visit [facility] ADULT DENTAL 230 [place] [address] Johana Garcia Dental plaque (Primary Dx); Localized gingival recession, severe; Partially edentulous maxilla, unspecified edentulism class; Partially edentulous mandible, unspecified edentulism class 01/11/2025 9:00 AM EDT Office Visit [facility] ADULT DENTAL [address] [place] [address] oJhana Garcia Heart valve replaced (Primary Dx) 12/04/2024 9:00 AM EST Office Visit [facility] ADULT DENTAL [address] [place] [address] Moy Caldwell DDS Partial edentulism, unspecified edentulism [...] AM EDT Office Visit [facility] ADULT DENTAL [address] [place] [address] Moy Caldwell DDS [address] [place] [address] 07/25/2025 10:00 AM EDT Office Visit [facility] ADULT DENTAL [address] [place] [address] Johana Garcia [address] [place] [address] Health Maintenance Due Date Last Done Comments [...] average glucose, using the formula of the S5U-Wsgbbnu Average Glucose study (ADAG), Diabetes Care, Vol.31,#8, [...] 239 mg/dL HDL Cholesterol 51 mg/dL [facility] Comment: Desirable HDL: ??greater than 40 mg/dL ?? Note: This HDL assay may give artificially ? low results in patients with liver disease. LDL Cholesterol Calculated 90 mg/dl [facility] Comment: Desirable LDL: ? less [...] Alanine Aminotransferase 14 0 - 31 U/L [facility] Albumin Level 3.7 3.5 - 5.0 g/dL [facility] Alkaline Phosphatase 120(H) 39 - 117 U/L [facility] Anion Gap 14 12 - 20 [facility] Aspartate Amino Transferase 16 5 - 31 U/L [facility] Bilirubin Total 0.4 0.0 - 1.0 mg/dL [facility] Blood Urea Nitrogen 25(H) 9 - 16 mg/dL [facility] Calcium 8.8 8.4 - 10.2 mg/dL [facility] Carbon Dioxide 25 22 - 29 mmol/L [facility] Chloride 105 96 - 108 mmol/L [facility] Creatinine, Serum 1.35 0.5 - 1.4 mg/dL [facility] Estimated Glomerular Filt Rate 38 [facility] Comment: NOTE: ??For -Ukrainian individuals, multiply the result ?by 210. ?? [...] Final Result [facility] [address] from Last 3 Months or Most Recently Relevant to Health Maintenance Insurance [facility] [employer] (O D-SNP) YASMIN FRANCO [id number] [facility]
--- OUTSIDE RECORDS SUMMARY | 2025-02-19 09:58 | XMS_ITS | Encounter Summary ---
Author Organization [employer] Address [address] [place] [address] 7t [place] [address] Care Team Providers Care Funeral Pre Arrangement Specialist Name Role Phone Marycarmen Quijano MD Primary Care Provider [phone] Reason for Visit * Reason Comments Med Refill Encounter Details Date Type Department Care Team ([facility] Contact Info) Description 04/15/2023 Refill [facility] MEDICINE [address] [place], [place] [phone] Marycarmen Quijano MD 230 [place], [place] [phone] Social History Tobacco Use Types Packs/Day Years [...] Date Type Department Care Team ([facility] Contact Info) Description 02/27/2025 10:00 AM EDT Office Visit [facility] ADULT DENTAL [address] [place] [address] Moy Caldwell DDS [address] [place] [address] 07/25/2025 10:00 AM EDT Office Visit [facility] ADULT DENTAL [address] [place] [address] RadhaJohana [address] [place] [address] documented as of this encounter Visit Diagnoses Not on filedocumented in this encounter Care Teams Funeral Pre Arrangement Specialist Relationship Specialty Start Date End Date Marycarmen Quijano MD [address] [place] [address] PCP - General Family Medicine 03/02/23 06/20/23 documented as of this encounter
--- OUTSIDE RECORDS SUMMARY | 2025-02-19 09:58 | XMS_ITS | Encounter Summary ---
Author Organization [employer] Address [address] [place] [address] 7t [place] [address] Care Team Providers Care Construction Secretary Name Role Phone Unavailable Primary Care Provider Unavailabl e Reason for Visit * Reason Comments Med Refill Encounter Details Date Type Department Care Team (Late Contact Info) Description 11/29/2023 Refill [facility] MEDICINE [address] [place] [address] Christianne John MD [address] [place] [address] Moderate persistent asthma, unspecified whether complicated Social [...] 02/27/2025 10:00 AM EDT Office Visit [facility] ADULT DENTAL [address] [place] [address] Moy Caldwell DDS [address] [place] [address] 07/25/2025 10:00 AM EDT Office Visit [facility] ADULT DENTAL [address] [place] [address] Johana Garcia [address] [place] [address] documented as of this encounter Visit Diagnoses Diagnosis Moderate persistent asthma, unspecified whether complicated documented in this encounter
--- OUTSIDE RECORDS SUMMARY | 2025-02-19 09:58 | XMS_ITS | Encounter Summary ---
Author Organization [employer] Address [address] [place] [address] 7t [place] [address] Care Team Providers Care Grooming Assistant Name Role Phone Unavailable Primary Care Provider Unavailabl e Reason for Visit * Reason Comments Med Refill Encounter Details Date Type Department Care Team (Late Contact Info) Description 11/24/2023 Refill [facility] MEDICINE [address] [place] [phone] Christianne John MD [address] [place] [phone] Moderate persistent asthma, unspecified whether complicated Social [...] [facility] ADULT DENTAL [address] [place] [address] Moy Caldwell DDS [address] [place] [address] 07/25/2025 10:00 AM EDT Office Visit [facility] ADULT DENTAL [address] [place] [address] Johana Garcia [address] [place] [address] documented as of this encounter Visit Diagnoses Diagnosis Moderate persistent asthma, unspecified whether complicated documented in this encounter
== END 2025-02-19 09:40 | disposition home or self-care (01) ==
LOC: HO.MAMMO 09:39
PROVIDERS: PCP Internal Medicine; Visit Provider Internal Medicine
DX: Z12.31 Encounter for screening mammogram for malignant neoplasm of breast (principal)
CPT/HCPCS: 77063; 77067; 99212

== ENCOUNTER → 2025-02-19 11:15 | Outpatient (BNV) | payer OTHER, SELFPAY | PROVIDERS: PCP Internal Medicine; Visit Provider Internal Medicine | DX: Z12.31 Encounter for screening mammogram for malignant neoplasm of breast (principal) | CPT/HCPCS: 77063; 77067 ==

== ENCOUNTER 2025-02-22 08:23 | Outpatient (REF) | payer OTHER, SELFPAY ==
--- OUTSIDE RECORDS SUMMARY | 2025-02-22 08:33 | XMS_ITS | Data Portability ---
Author Organization [employer] [facility], [place] in - [facility] Address [address] [place] [address] Care Team Providers Care Chicken Buyer Name Role Phone HIM CCA OTHER Assessment Encounter Date Assessment Date Assessment LastModified by Organization Details LastModified Time 04/08/2023 04/08/2023 77 YOF with CHF, COPD recent hospitalization being seen for report of low 02 sat at home in the 80s, On asbestos removal supervisor exam sat 91% on 2L pt in [...] follow up w pcp in 1 week [email or web address] Not available 09/18/2024 20:08:58 Plan of Treatment Reminders Order Date Submit Date Provider Last Modified By Organization Details Last Modified Time Details Appointments None recorded. Lab rapid SARS CoV 2 Ag, QL IA, respiratory specimen 2023 024 [facility], [address] [place] [address], [id number] 4 09:06:35 rapid flu (A+B) 2023 024 [facility], [address] [place] [address], [id number] 4 09:06:54 CBC w/ auto diff 2021 022 YODIT [facility] (Centralized Electronic Ordering - All Locations), Patient Can Go To The Location Of Their Choice, [address] 2 00:05:50 CMP, serum or plasma 052021 kemal [facility] (Centralized Electronic Ordering - All Locations), Patient Can Go To The Location Of Their Choice, [address] 19:37:00 unlisted lab - urinalysis w/reflex culture 2021 [place] [facility] (Centralized Electronic Ordering - All Locations), Patient Can Go To The Location Of Their Choice, [address] 01:53:39 cmp, whole blood + gloria [address] [facility] [place], [place] [address]ed, [address] [place] [address], [id number] 16:24:03 urinalysis, dipstick 2021 [facility] [place] [address], [address] [place] [address], [id number] 16:24:43 Referral None recorded. Procedures None recorded. Surgeries None recorded. Imaging None recorded. Medication Orders prednisone 10 mg tablet 2023 [facility], [address] [place] [address], [id number], 12:30:23 azithromyci n 250 mg tablet 2023 024 [facility], [address] [place] [address], [id number], 4 12:30:23 azithromyci n 250 mg tablet 2023 024 [email or web address] [facility], [address] [place] [address], [id number], 4 20:08:15 prednisone 20 mg tablet [email or web address] [facility], [address] [place] [address], [id number], 4 20:08:15 ipratropium 0.5 mg-albutero l 3 mg (2.5 mg base)/3 mL nebulizatio n soln 2023 024 [facility], [address] [place] [address], [id number], 20:08:15 Patient TargetsNo targets recorded. Patient InstructionsNo [...] To The Location Of Their Choice, [facility] 02/17/2022 01:53:39 02/17/20 22 02/17/2022 UA W/REF REGAN CULTU RE culture indication CULTUR E NOT INDICA NATALIE Not Available [facility] (Centralized Electronic Ordering - All Locations) Patient Can Go To The Location Of Their Choice, [facility] 02/17/2022 01:53:39 02/17/20 22 02/16/2022 urina lysis , dipst ick Leukocytes neg Not Available Main - [facility] [address] [place] [address], [address] 02/16/2022 16:23:39 02/17/20 22 02/16/2022 urina lysis , dipst ick Nitrite negati ve Not Available Main - [facility] [address] [place] [address], [address] 02/16/2022 16:23:39 02/17/20 22 02/16/2022 urina lysis , dipst ick Protein 4+ Not Available Main - [facility] [address], [address] 02/16/2022 16:23:39 02/17/20 22 02/16/2022 urina lysis , dipst ick Ketone 2+ Not Available Main - [facility] [address], [address] 02/16/2022 16:23:39 02/17/20 22 02/16/2022 urina lysis , dipst ick Glucose negati ve Not Available Main - [facility] [address] [place] [address], [address] 02/16/2022 16:23:39 02/17/20 22 02/16/2022 cmp, whole blood + picco lo ALB 2.8 Not Available Main - [facility] [address], [address] 02/16/2022 16:22:48 02/17/20 22 02/16/2022 cmp, whole blood + picco lo ALP 114 Not Available Main - [facility] [address], [address] 02/16/2022 16:22:48 02/17/20 22 02/16/2022 cmp, whole blood + picco lo ALT 12 Not Available Main - [facility] [address], [address] 02/16/2022 16:22:48 02/17/20 22 02/16/2022 cmp, whole blood + picco lo AST 18 Not Available Main - [facility] [address], [address] 02/16/2022 16:22:48 02/17/20 22 02/16/2022 cmp, whole blood + picco lo BUN 17 Not Available Main - [facility] [address], [address] 02/16/2022 16:22:48 02/17/20 22 02/16/2022 cmp, whole blood + picco lo Ca 9.8 Not Available Main - [facility] [address], [address] 02/16/2022 16:22:48 02/17/20 22 02/16/2022 cmp, whole blood + picco lo CI- normal Not Available Main - [facility] [address], [address] 02/16/2022 16:22:48 02/17/20 22 02/16/2022 cmp, whole blood + picco lo CRE 1.3 Not Available Main - [facility] [address], [address] 02/16/2022 16:22:48 02/17/20 22 02/16/2022 cmp, whole blood + picco lo GLU 326 Not Available Main - [facility] [address], [address] 02/16/2022 16:22:48 02/17/20 22 02/16/2022 cmp, whole blood + picco lo K+ 3.8 Not Available Main - Ins [address], [address] 02/16/2022 16:22:48 02/17/20 22 02/16/2022 cmp, whole blood + picco lo Na+ 138 Not Available Main - [facility] [address], [address] 02/16/2022 16:22:48 02/17/20 22 02/16/2022 cmp, whole blood + picco lo tCO2 27 Not Available Main - [facility] [address], [address] 02/16/2022 16:22:48 Result Notes None recorded. Medical Equipment None Reported. Allergies Allergen ID Allergen Name Allergen Category Reaction Reaction Severity Criticality Documentation Date Start Date Code Code System Note Provider Name and Address Organization Details Recorded Time 84787 Motrin medicatio n Not available Not available Not available 09/18/202475351 8 RxNorm Not Available [facility] - production 4 15:17:42 67774 acetamino phen / oxycodone medicatio n Not available Not available Not available 09/18/2024 82389 3 RxNorm Not Available [facility] - production 4 15:17:42 87561 tramadol medicatio n Not available Not available Not available 09/18/2024 61149 RxNorm Not Available [facility] - production 4 [...] Not Available No t Available Dexcom G7 Manager Fiber USE DIRECTED active Not Available Not Available [...] L/min 146 mm[Hg] 65 mm[Hg] Not Available [employer] - b-datum 3 16:22:45 Date Recorded Heart rate Oxygen saturation Oxygen saturation in Arterial blood by Pulse oximetry Body temperature Respiratory rate Systolic blood pressure Diastolic blood pressure Provider Name and Address Organization Details Last Updated DateTime 4 78 /min 93 % 93 % 97.1 [degF] 16 /min 137 mm[Hg] 76 mm[Hg] Not Available [employer] - b-datum 4 20:04:27 Date Recorded Oxygen saturation Oxygen [...] cm 99 % 99 % 98.9 [degF] 48665.2 4 g 20 /min 164 mm[Hg] 63 [...] Note 1594 Hanane Mena MD Main - [address] [address] 02/16/2022 14:13:00 05/29/2022 14:46:24 Acute low back pain 752589351 M54.50 Pt p/w 5 days of atraumatic [...] no improvemen t in pain consider imagingPer asbestos removal supervisor, requestor asked for CBC w/ diff and CMP (not acknowledg ed in [facility] portal) but no orders placed. Reasonable to check CBC w/ diff and CMP thus orders placed. Ketonuria [id number] R82. 4 Pt with 2+ urinary ketones [...] and call PCP if FSG > 350. 14240 Damien Alfredo MD Main - [facility] [address] [place] [address] 04/08/2023 16:22:43 04/08/2023 23:08:09 Hypoxia 419907270 R09.02 52178 Wander Smith MD Main - [facility] [address] [place] [phone] 09/18/2024 20:04:23 09/18/2024 21:06:53 Acute exacerbation of chronic obstructive pulmonary disease 225346322 J44.1 Health Concerns Section Related Observation LastModified by Organization Detai ls LastModified Time None Recorded Concern Status LastModified by Organization Details LastModified Time None Recorded Advance Directives Directive None Recorded Payers Insurance Date Sequence Insurance Name Policy Number Policy Rendon Covered Member ID Rendon Member ID Guarantor Name 04/08/2023 1 [facility] - DOS PRIOR TO 2023 - DUAL ELIGIBLE (MEDICARE REPLACEMENT/AD VANTAGE - HMO) Katherine Griffith [id number] Katherine Griffith 09/18/2024 1 [facility] - DOS ON OR AFTER 2023 - DUAL ELIGIBLE - LONGTERM OPTIONS AND ONE CARE (MEDICARE REPLACEMENT/AD VANTAGE - HMO) Katherine Griffith [id number] Katherine Griffith Notes Date Note Type Note [...] .................... .................... .................... .................... .................... .................... . Reweaver Note: Patient is a 76 year old [...] by urologist last month according to career services representative, kidney function was good. Urine sample obtained and dipped; changes in PRO, SG and KET detected. Urine sent to [facility] for UA and Culture. Vital signs obtained and all within normal limits. Red flags discussed. Consulted with Dr. Mena. Patient is to follow up with PCP/care team regarding her signs, symptoms and todays visit. Dr. Mena recommended blood work. Reweaver Sara Davis was dispatched for procedure. See asbestos removal supervisor Sara Davis run report for further patient [...] which suggests h Hanane Mena MD [address] [facility],[address], [place], [address], [employer] 02/16/2022 16:24:46 04/08/2023 text/html [facility] Nursing Assessment: Reason For Request: Daughter reporting [...] Verify member name/- Damien Alfredo MD [address] [facility],[address], [place], [address], [employer] 04/08/2023 16:28:34 09/18/2024 text/html [facility] Nurse Triage Notes (Elina Lopez - RN): [...] s/s and seek emergency treatment if needed. Reweaver Organization Information for [employer] [facility] Business Legal Name: [facility] Transportation Address: [address] [place] [address], [place] [address], Production Director: Louis Stockton MD CLIA No.: [id number] [facility] POC Test Results from [facility] Rapid COVID antigen (20:02:29) COVID: - Rapid influenza antigen (20:02:30) Flu: - Wander Smith MD [address] [place] [address],[address], [place], [address], [place] - [employer] 09/18/2024 21:05:29 OBGyn Episode No OBEpisode recorded.
--- OUTSIDE RECORDS SUMMARY | 2025-02-22 08:33 | XMS_ITS ---
Author Organization [facility] Address [address] [place] [address] Care Team Providers Care Certified Medicine Aide Name Role Phone Jaime VORA, Shelby Primary Care Provider Unavail able Randy Leal Unavailable [phone] Allergies Allergen (clinical drug ingredient) Drug/Non Drug [...] Ordered Date Performed Result Body Sit e 58471-OWVBTVD NAIL, 6 OR MORE 12/26/2024 N/A 60813-Htvktptz Plate 12/26/2024 N/A 85592-OGRZ SKIN LESIONS, 2 TO 4 12/26/2024 N/A Encounters Encounter Location Date Provider Diagnosis [facility] [address] [place] [address] 12/26/2024 Randy Leal Type 2 diabetes mellitus [...] INSTRUCTIONS.pdf) Pending Test Test Name Order Date 96443-PARHLIN NAIL, 6 OR MORE 12/26/2024 61393-Tsvnlvfo Plate 12/26/2024 53881-EZFU SKIN LESIONS, 2 TO 4 12/27/19 Next Appt Details Follow Up: 3 Months, Reason: Provider Name:Randy Leal , 03/27/2025 09:30:00 AM, [address] [place] [address], [address], Procedure Notes * Category Sub-Category Detail Notes [...] and future surgical procedures to prevent recurrence (27753), DIABETES: Pt was advised as to the [...] use of a nail nipper and/or dremel-type chisel grinder, to a more viable healthy nail [...] to maintain effectiveness in symptomatic relief - 34859 Keratoma Treatment Parring or Cutting o f [...] instrumentation by the physician of record - 11426 Progress Notes * Katherine DIASDOB: 5 (79 yo F)Acc No.[id number]:12/26/2024 Progress Note Patient:Katherine UNDERWOOD Provider:?Randy Leal DPM :1945???Age:79 Y???Sex:Female D ate:12/26/2024 Address:[address] [place], [place] [address] Pcp:Shelby Sandoval MD Subjective: * Chief Complaints: [...] , 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 , 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..] and future surgical procedures to prevent recurrence (67443), DIABETES: Pt was advised as to the risk of delayed or nonhealing due to diabetes. Pt is to call the office with any questions, concerns, or complications.? 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
--- OUTSIDE RECORDS SUMMARY | 2025-02-22 08:33 | XMS_ITS | Patient Health Record ---
Author Organization [facility] Address [address] [place] [address] Care Team Providers Care Oral And Maxillofacial Surgery Name Role Phone Jaime VORA, Shelby Primary Care Provider Unavail able Randy Leal Unavailable [phone] Allergies Allergen (clinical drug ingredient) Drug/Non Drug [...] Problem Acquired hammer toe of right foot (5440272183757200 ) Other hammer toe(s) (acquired), right foot (M20.41) Active confirmed Problem Acquired hammer toe of left foot (8982033786996463 ) Other hammer toe(s) (acquired), left foot (M20.42) Active confirmed Problem Polyneuropathy due to type 2 diabetes mellitus (844727518) Type 2 diabetes mellitus with diabetic polyneuropathy (E11.42) Active confirmed Vital Signs Blood pressure diastolic 70 mm Hg 12/26/2024 Height 4 ft 9 in in 12/26/2024 Blood pressure systolic 120 mm Hg 12/26/2024 Weight 192 lbs 12/26/2024 BMI 41.54 kg/m2 12/26/2024 Procedures Procedure Date Ordered Date Performed Result Body Sit e 40273-QCFGNSJ NAIL, 6 OR MORE 03/17/2024 N/A 80162-EMTW SKIN LESIONS, 2 TO 4 03/17/2024 N/A 74943-QTCWMCZ NAIL, 6 OR MORE 06/16/2024 N/A 22457-KSSF SKIN LESIONS, 2 TO 4 06/16/2024 N/A 43833-IGGEKIW NAIL, 6 OR MORE 12/26/2024 N/A 29250-Wtmnonxq Plate 12/26/2024 N/A 97276-XPQE SKIN LESIONS, 2 TO 4 12/26/2024 N/A Encounters Encounter Location Date Provider Diagnosis [facility] [address] [place] [address] 03/17/2024 Randy Leal Type 2 diabetes mellitus with diabetic polyneuropathy E11.42 ; Tinea unguium B35.1 ; Other hammer toe(s) (acquired), right foot M20.41 and Other hammer toe(s) (acquired), left foot M20.[address] [address] 06/16/2024 Randy Leal Type 2 diabetes mellitus with diabetic polyneuropathy E11.42 and Tinea unguium B35.[address] [address] 12/26/2024 Randy Leal Type 2 diabetes mellitus with diabetic polyneuropathy E11.42 ; Tinea unguium B35.1 ; Other hammer toe(s) (acquired), right foot M20.41 ; Other hammer toe(s) (acquired), left foot M20.42 and Subungual hematoma of left foot, initial encounter S90.222A [address] [address] 09/19/2024 Randy Leal [address] [address] 12/26/2024 Randy Leal Assessments Encounter Date Diagnosis [...] Treatment Pending Test Test Name Order Date 46321-WEEWTHU NAIL, 6 OR MORE 03/17/2024 28298-EQVWWAH NAIL, 6 OR MORE 06/16/2024 69526-JYBNWOZ NAIL, 6 OR MORE 12/26/2024 14942-Dkgdhlcb Plate 12/26/2024 49478-RUDK SKIN LESIONS, 2 TO 4 12/27/19 81368-TDFM SKIN LESIONS, 2 TO 4 06/16/20 56558-LJFM SKIN LESIONS, 2 TO 4 03/17/20 Next Appt Details Provider Name:Randy Ihsan MayersMel , 03/27/2025 09:30:00 AM, [address] [place] [address], [phone], Insurance Providers Payer Name Payer Address Payer Phone Subscriber Number Group Number Insured Name Patient Relationship to Insured Coverage Start Date Coverage End Date [facility] [employer] Claims [address] [place], [place] [id number] Katherine Jamil Self - patient is the insured Medical (General) History Medical History History ICD Code Anxiety Arthritis asthma Back,Hip,and Knee pain CAD (Cholesterol) Cataracts Depression Diabetic Heart disease High blood pressure Kidney disease Lung disease Numbness Poor circulation Reflux ( GERD) sinusitis Vascular phlebitis (clots) Chicken pox Replacement Heart Valves Transfusions Surgical History Surgery Date(Month/Year)
--- OUTSIDE RECORDS SUMMARY | 2025-02-22 08:33 | XMS_ITS ---
Author Organization [facility] Address [address] [place] [address] Care Team Providers Care Supervisor Alteration Workroom Name Role Phone Jaime VORA, Shelby Primary Care Provider Unavail Randy Marshall Unavailable [phone] Encounters Encounter Location Date Provider Diagnosis [address] [address] 09/19/2024 Randy Leal Plan Of Treatment Next Appt Details Provider Name:Randy Leal , 03/27/2025 09:30:00 AM, [address] [place], [address], Progress Notes * Katherine DIASDOB: (79 yo F)Acc No.[id number]:09/19/2024 Progress Note Patient:?ARUNKatherine Provider:?Randy Leal DPM :1945???Age:79 Y???Sex:Female D ate:09/19/2024 Address:[address] [place], [place] [address] Pcp:Shelby Sandoval MD Subjective: * Chief Complaints: [...] Leal DPM Date:?2023 Generated for Herber olea/Rolando/Emely on:?02/22/2025 08:33 AM EDT
--- OUTSIDE RECORDS SUMMARY | 2025-02-22 08:33 | XMS_ITS ---
Author Organization [facility] Address [address] [place] [address] Care Team Providers Care Television Specialist Name Role Phone Jaime VORA, Shelby Primary Care Provider Unavail able Randy Leal Unavailable [phone] REASON FOR VISIT buy Small Plantar Fasc Sleeve Encounters Encounter Location Date Provider Diagnosis [facility] [address] [place] [address] 12/26/2024 Randy Leal Plan Of Treatment Next Appt Details Provider Name:Randy Leal , 03/27/2025 09:30:00 AM, [address] [place], [address], Progress Notes * Katherine DIASDOB: [birth year] (79 yo F)Acc No.[id number]:12/26/2024 Patient:?ARUN Katherine :1945???Age:79 Y???Sex:Female Address:[address] [place], [address] * true * Date:? Generated for Cotyi emmie/Rolando/eTransmitting on:?02/22/2025 08:32 AM EDT
--- OUTSIDE RECORDS SUMMARY | 2025-02-22 08:33 | XMS_ITS | Clinical Summary ---
Author Organization [facility] Address [address] [address] Phone Care Team Providers Care Zigzag Elastic Attacher Name Role Phone Marycarmen Quijano MD Primary Care Provider [phone] Allergies Active Allergy Reactions Criticality Noted Date [...] day Active ergocalciferol (VITAMIN D-2) 1.25 MG (41300 UT) capsule Take 1 capsule by mouth [...] failure 01/28/2021 Atherosclerotic heart diseas e of ho-chunk coronary artery without angina pectoris 01/28/2021 Chronic [...] arteriosclerosis 07/11/2012 Overview (12/07/2022): Cath 01/2010 at [facility] showed LCx 80% and ostial LAD 80% [...] [facility] [address] [place] [address] Dominick Reece MD [address] [facility] [address] [place] [address] Health Maintenance Due Date Last Done Comments [...] A1C 8.5(H) <5 % [facility] Comments From [facility] Creatinine 1.35(H) 0.70 - 1.30 mg/dl PVNMA Potassium 4.5 3.5 - 5.1 mmol/L PVNMA Calcium 8.8 8.4 - 10.2 mg/dl PVNMA eGFR Non- 38(L) >60 ml/min PVNMA 09/18/2020 us [facility]version LAB [id number] LICITED RESULTS Final Result PVNMA from Last 3 Months or Most Recently Relevant to Health Maintenance Insurance [facility] ([id number]) YASMIN FRANCO [id number] [facility] ([id number]) YASMIN FRANCO [id number] Care Teams Zigzag Elastic Attacher Relationship Specialty Start Date End Date Marycarmen Quijano MD [address] [place] [address] PCP - General 10/14/20
[2025-02-22 08:36] LABS: MANUAL DIFF FLAG NO
[2025-02-22 08:42] LABS: Basophils Absolute Auto 0.1 X10*3/uL (0.0-0.2); Basophils Percent Auto 0.6 % (0-2); Eosinophils Absolute Auto 0.3 X10*3/uL (0.0-0.4); Eosinophils Percent Auto 3.3 % (0-4); Hematocrit 38.5 % (37.0-47.0); Hemoglobin 12.4 g/dl (12.0-16.0); Imm Gran Abs Auto 0.02 X10*3/uL (0.00-0.03); Imm Gran Pct Auto 0.2 % (0.0-0.4); Lymphocytes Absolute Auto 2.8 X10*3/uL (1.2-4.9); Lymphocytes Percent Auto 27.7 % (20-40); Mean Corpuscular HGB Conc 32.2 g/dl (31.0-35.0); Mean Corpuscular Hemoglobin 24.9 pg (27.0-33.0); Mean Corpuscular Volume 77.5 fL (80.0-98.0); Mean Platelet Volume 9.3 fL (9.4-12.3); Monocytes Absolute Auto 0.7 X10*3/uL (0.1-1.2); Monocytes Percent Auto 7.4 % (2-11); Neutrophils Absolute Auto 6.1 x10*3/uL (2.0-8.3); Neutrophils Percent Auto 60.8 % (45-73); Platelet Count 387 X10*3/uL (160-400); Red Blood Count 4.97 X10*6/uL (4.20-5.50)
[2025-02-22 09:19] LABS: Appearance Urine Clear; Color Urine Yellow; Glucose Urine UA Negative (Negative); Leukocyte Esterase Urine Trace (Negative); Nitrite Urine Negative (Negative); PH 5.5 (5.0-9.0); UMIC TRIGGER UACC YES; Urine Blood Negative (Negative); Urine Ketones Negative (Negative); Urine Protein 300 (3+) mg/dL (Neg-Trace)
[2025-02-22 09:25] LABS: Bacteria Urine None Seen (None Seen); Hyaline Casts Urine 0-2 /LPF (0-2); RBC Urine 0-2 /HPF (0-2); WBC Urine 0-5 /HPF (0-5)
[2025-02-22 09:25] LABS: Alanine Aminotransferase 24 U/L (0-31); Albumin Level 3.7 g/dL (3.5-5.0); Alkaline Phosphatase 166 U/L (39-117); Anion Gap 16 (12-20); Aspartate Amino Transferase 30 U/L (5-31); Bilirubin Total 0.5 mg/dL (0.0-1.0); Blood Urea Nitrogen 33 mg/dL (9-16); Calcium 9.7 mg/dL (8.4-10.2); Carbon Dioxide 26 mmol/L (22-29); Chloride 105 mmol/L (96-108); Cholesterol 167 mg/dL (<200); Estimated Glomerular Filt Rate 28; Glucose Fasting 139 mg/dL (60-99); Iron 51 mcg/dL (30-160); Percent Iron Saturation 22 % (15-50); Potassium 3.8 mmol/L (3.3-5.1); Sodium 143 mmol/L (135-145); Total Iron Binding Capacity 229 mcg/dL (228-428); Total Protein 7.2 g/dL (6.5-8.0); Triglycerides 161 mg/dL (<150); Unsaturated Iron Binding 178 ug/dL
[2025-02-22 09:35] LABS: Vitamin D 25-OH Total 29.1 ng/mL (>30)
[2025-02-22 11:15] LABS: HDL Cholesterol 43 mg/dL (>40); LDL Cholesterol Calculated 92 mg/dL (<100)
[2025-02-22 11:15] LABS: Creatinine Urine 72.15 mg/dL; Microalbumin Urine > 500.0 mg/L
[2025-02-23 05:19] LABS: NT-proBNP 103 pg/mL (<450)
== END 2025-02-22 08:24 | disposition home or self-care (01) ==
LOC: HO.LAB 08:23
PROVIDERS: PCP Internal Medicine; Visit Provider Student in an Organized Health Care Education/Training Program
DX: E55.9 Vitamin D deficiency, unspecified (principal); E78.5 Hyperlipidemia, unspecified; R80.9 Proteinuria, unspecified; N18.32 Chronic kidney disease, stage 3b; D64.9 Anemia, unspecified; I50.22 Chronic systolic (congestive) heart failure; I11.0 Hypertensive heart disease with heart failure
CPT/HCPCS: 36415; 80053; 80061; 81001; 82043; 82306; 82570; 83540; 83880; 85025

== ENCOUNTER 2025-03-02 09:57 | Outpatient (AMB) | payer OTHER, SELFPAY ==
--- NOTE | 2025-03-02 09:59 | A.OFFVIS_ITS ---
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 Name: suzie Information Interpreted: non-clinical & clinical Accompanied by: Daughter Allergies ibuprofen [From Motrin] Allergy (Intermediate, Verified 03/02/25 10:17) High Blood Pressure, Rash oxycodone [From Percocet] Allergy (Intermediate, Verified 03/02/25 10:17) Itching tirzepatide [From Mounjaro] Adverse Reaction (Severe, Verified 03/02/25 10:17) Diarrhea Medication List - Last Reconciled 03/02/25 by Ariana Barksdale PA-C albuterol sulfate 90 mcg/actuation 2 inhalations inhalation Q6H PRN 30 days amlodipine 10 mg PO DAILY aspirin 81 mg PO BEDTIME 90 days atorvastatin 80 mg PO BEDTIME 90 days blood pressure monitor As directed blood sugar diagnostic (FreeStyle Lite Strips) Use daily As directed to check blood glucose blood sugar diagnostic (FreeStyle Lite Strips) 3times a day blood-glucose meter (FreeStyle Peridot Lite kit) As directed blood-glucose meter (FreeStyle Lite Meter kit) Use daily As directed to check blood sugars blood-glucose sensor (FreeStyle Denton 3 Sensor device) Apply every 14 days As directed to monitor blood glucose blood-glucose sensor (Dexcom G7 Sensor device) Use daily As directed to monitor blood glucose. Change q 10 days blood-glucose,supply chain assistant,cont (Dexcom G7 Jewelry Sorter) use daily As directed to monitor blood glucose calcium acetate(phosphat bind) 667 mg PO BID 90 days cefuroxime axetil 500 mg PO BID cholecalciferol (vitamin D3) 50 mcg PO DAILY 3 months clotrimazole-betamethasone 1-0.05 % 1 appl topical BID 5 days [Diabetic shoes with inserts As directed] disposable gloves As directed ferrous sulfate 325 mg PO .once a week 90 days fluticasone propionate 50 mcg/actuation 1 spray intranasal DAILY PRN 30 days vepslymixol-rxqdygoys-oxmduemp 200-62.5-25 mcg (Trelegy Ellipta) 1 inh inhalation DAILY 30 days folic acid 1 mg PO QAM 90 days FreeStyle Lancets (lancets) 3 times a day NS gabapentin 300 mg PO BEDTIME 90 days hydralazine 25 mg PO TID 90 days hydrocortisone 1% (Anti-Itch (hydrocortisone)) 1 appl topical BID PRN 4 weeks [incomtinemce liner pads As directed] insulin glargine U-300 conc (Toujeo SoloStar U-300 Insulin) 24 units (0.08 mL) subcut DAILY 90 days ipratropium-albuterol 0.5 mg-3 mg(2.5 mg base)/3 mL 3 mL inhalation RQ4H WHILE AWAKE ketoconazole 2% 1 appl topical 2XW 30 days lancets (TRUEplus Lancets) As directed test 4 times a day lancets (FreeStyle Lancets) use daily as directed to check blood glucose losartan 25 mg PO DAILY 90 days montelukast 10 mg PO QPM 90 days Novolog FlexPen U-100 Insulin (insulin aspart U-100) 4 units (0.04 mL) subcut TID NS omeprazole 40 mg PO DAILY Oxygen Home Use As directed pen needle, diabetic (BD Sia 2nd Gen Pen Needle) 5 times a day semaglutide (Ozempic) 2 mg (0.75 mL) subcut QWEEK simethicone (Gas Relief (simethicone)) 250 mg (2 x 125 mg) PO BID PRN 90 days sucralfate 1 g PO BID PRN terconazole 0.8% 1 appful vaginal BEDTIME 3 days tobramycin-dexamethasone 0.3-0.1 % 1 drp ophthalmic (eye) QID torsemide 20 mg PO BID [wipes As directed] HPI HPI T2DM: Details: Pt is a 79 y/o female who presents today for a dm follow up. She is accompanied today by her daughter who translates today. Significant past medical history of peripheral vascular disease, hyperparathyroidism, chronic kidney disease, vitamin-D deficiency, proteinuria, CHF, hypertension, hyperlipidemia come, obstructive sleep apnea and anemia presenting today for a follow up regarding her diabetes. Endo: Initially diagnosed with T2DM in 1999. Recent A1c is 8.3 down from 8.7. Current regimen: Toujeo 24 units qHS and novolog 4 units. And at last visit was started on Ozempic 1 mg weekly. She is tolerating the increased dosage of the Ozempic. She has noticed slight appetite suppression but nothing significant. No nausea or vomiting. No diarrhea. cgm- usage 95%, G mi 7.5 average glucose 173, variability 20%. Very hyperglycemic 2%, hyperglycemic 38%, in range 60%, hypoglycemic 0% -no more low glucose readings -Was initially started on treatment with Metformin. She reports metformin was stopped due to an issue with her kidney. She also failed Trulicity due to GI distress. I discontinue Jardiance due to frequent UTIs and yeast infections. Sh e was started on mounjaro but caused diarrhea so she d/c this. Treats lows with juice. Checks sugar after to ensure it is rising. Treats according to rule of 15's. Has her eyes checked yearly, last eye exam needs to make appt . Denies retinopathy. Has neuropathy. On gabapentin. Sees podiatry. Has nephropathy, on losartan . Is followed by nephrology Has HLD, on Atorvastatin 80 mg PO daily. Has CAD. Had diabetes education. CV: Bp today is 98/56 and she is on amlodipine 10 mg, furosemide 20 mg b.i.d., losartan 25 mg and hydralazine 25 mg TID. No chest pain, shortness of breath or palpitations. Cholesterol is managed with atorvastatin 80 mg. Nephro: Follows with Nephrology and is booked for 05/07/25. Recent labs show decreased GFR from baseline. She states that she knows to avoid NSAIDs. 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 Aortic stenosis CKD (chronic kidney disease) stage 3, GFR 30-59 ml/min Dyslipidemia Diabetic polyneuropathy associated with type 2 diabetes mellitus Diabetic nephropathy associated with type 2 diabetes mellitus Chronic kidney disease Hypertension Asthma Thalamic pain syndrome GERD (gastroesophageal reflux disease) Morbid obesity Surgical History H/O aortic valve replacement History of breast lump/mass excision History of tubal ligation History of cholecystectomy Family History Sister History of renal pelvis cancer Father Suicide Mother Lung disease Diabetes mellitus Social History Household Members: Family Housing: House Do you presently have visiting nurse or other home services: Yes (project geologist) Alcohol intake: never Comment: pt stays with pt. Patient Tobacco Use Status: Former Tobacco user Tobacco use type: Cigarette Years Smoked: 5 years e-Cigarette/Vaping Use: Never Used Second Hand Smoke Exposure: No service: No Current occupational status: unemployed and disabled Gender identity: Female Cognitive needs: Yes Hearing needs: No Vision needs: No Female Reproductive History Menstrual Age of Menarche: 10 Physical Exam Vital Signs: Last Vital Signs Pulse 65 03/02/25 10:03 BP 98/50 L 03/02/25 10:03 Pulse Ox 96 03/02/25 10:03 Oxygen Delivery Method Room Air 03/02/25 10:03 BMI result Body Mass Index 40.3 Const Orientation/consciousness: patient oriented x3 HEENT Ears: hearing grossly normal bilaterally Neck Thyroid: Thyroid normal Lymphatic: no lymphadenopathy noted Resp Auscultation: clear to auscultation bilaterally Cardio Rate: regular rate Rhythm: regular rhythm Heart sounds: S1 normal heart sound present and S2 normal heart sound present Skin General skin exam: no rashes or lesions noted Neuro General: patient oriented x3, gait normal and no focal motor deficits Results Reviewed Results Reviewed: Laboratory Last Values Glucose (Clinic) 216 mg/dL (60-115) H 03/02/25 10:11 Laboratory Tests 01/31/25 02/22/25 10:50 08:34 Sodium 143 Potassium 3.8 Chloride 105 Carbon Dioxide 26 Anion Gap 16 BUN 33 H Creatinine 1.25 1.74 H Estimated GFR 41 28 AST 30 ALT 24 Triglycerides 161 H Cholesterol 167 LDL Cholesterol, Calc 92 HDL Cholesterol 43 Laboratory Tests 11/14/24 02/22/25 11:45 Unknown Urine Color Yellow Urine Appearance Clear Urine pH 5.5 Ur Specific [place] 1.010 Urine Protein 300 (3+) H 300 (3+) H Urine Glucose (UA) 100 H Negative Urine Ketones Negative Negative Urine Blood Negative Negative Urine Nitrite Negative Negative Ur Leukocyte Esterase Small (1+) H Trace H Urine RBC 0-2 0-2 Microalb/Creat Ratio 3229.1 H 693.0 H Assessment & Plan Assessment & Plan (1) Uncontrolled type 2 diabetes mellitus with chronic kidney disease, with long-term current use of insulin: Code(s): E11.22 - Type 2 diabetes mellitus with diabetic chronic kidney disease; E11.65 - Type 2 diabetes mellitus with hyperglycemia; Z79.4 - 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 She will let me know if she is unable to tolerate this. We will recheck labs next week. Continue with the current Toujeo 24 units nightly and 4 units of NovoLog with meals. Return in 3 months or sooner if needed. (2) CKD stage 3b, GFR 30-44 ml/min: Code(s): N18.32 - Chronic kidney disease, stage 3b Category: Medical Plan: We discussed that her recent GFR decreased. Advised her to make sure she is well hydrated and I will recheck this in 1 week. She will also contact her loss prevention specialist. She does not believe that she has booked until May to be seen. (3) Essential hypertension: Code(s): I10 - Essential (primary) hypertension Category: Medical Plan: Blood pressure low today but patient is completely asymptomatic. Has not yet had much water. She is compliant with her regimen. When she was seen in the office a week and a half ago it was normal. Orders: Orders Basic Metabolic Panel Today I10 - Essential (primary) hypertension, N18.32 - Chronic kidney disease, stage 3b Medications: New semaglutide (Ozempic) 2 mg (0.75 mL) subcut QWEEK 3 mL 4RF Discontinued semaglutide (Ozempic) Discontinued Reason: Doctor's Order 1 mg (0.75 mL) subcut QWEEK 3 mL 5RF Coding Level of Care Code Est Pt Level 4 (70063) Complex EM visit Add On G2211 Diagnoses Uncontrolled type 2 diabetes mellitus with chronic kidney disease, with long- term current use of insulin E11.22; E11.65; Z79.4 CKD stage 3b, GFR 30-44 ml/min N18.32 Essential hypertension I10
[2025-03-02 10:03] VITALS: BP 98/50; PULSE 65; O2SAT 96; BMI 40.3
[2025-03-02 10:19] LABS: Glucose, Whole Blood 216 mg/dL (60-115)
== END 2025-03-02 10:33 | disposition home or self-care (01) ==
LOC: HO.ENCR 09:58
PROVIDERS: PCP Internal Medicine; Visit Provider Physician Assistant
DX: E11.22 Type 2 diabetes mellitus with diabetic chronic kidney disease (principal); E11.65 Type 2 diabetes mellitus with hyperglycemia; Z79.4 Long term (current) use of insulin; N18.32 Chronic kidney disease, stage 3b; I10 Essential (primary) hypertension

== ENCOUNTER → 2025-03-02 09:57 | Outpatient (BNVA) | payer OTHER, SELFPAY | PROVIDERS: PCP Internal Medicine; Visit Provider Physician Assistant | DX: E11.51 Type 2 diabetes mellitus with diabetic peripheral angiopathy without gangrene (principal); E11.22 Type 2 diabetes mellitus with diabetic chronic kidney disease; E21.3 Hyperparathyroidism, unspecified; E55.9 Vitamin D deficiency, unspecified; R80.9 Proteinuria, unspecified; I13.0 Hypertensive heart and chronic kidney disease with heart failure and stage 1 through stage 4 chronic kidney disease, or unspecified chronic kidney disease; I50.9 Heart failure, unspecified; N18.32 Chronic kidney disease, stage 3b; E78.5 Hyperlipidemia, unspecified; G47.33 Obstructive sleep apnea (adult) (pediatric); D64.9 Anemia, unspecified; Z79.4 Long term (current) use of insulin | CPT/HCPCS: 82947; 83036; 99212 ==

== ENCOUNTER 2025-03-06 09:14 | Outpatient (REF) | payer OTHER, SELFPAY ==
[2025-03-06 10:35] LABS: Anion Gap 12 (12-20); Blood Urea Nitrogen 23 mg/dL (9-16); Calcium 9.6 mg/dL (8.4-10.2); Carbon Dioxide 28 mmol/L (22-29); Chloride 107 mmol/L (96-108); Estimated Glomerular Filt Rate 36; Glucose Random 139 mg/dL (60-115); Potassium 4.4 mmol/L (3.3-5.1); Sodium 143 mmol/L (135-145)
== END 2025-03-06 09:15 | disposition home or self-care (01) ==
LOC: HO.LAB 09:14
PROVIDERS: PCP Internal Medicine; Visit Provider Physician Assistant
DX: N18.32 Chronic kidney disease, stage 3b (principal); I10 Essential (primary) hypertension
CPT/HCPCS: 36415; 80048

== ENCOUNTER 2025-03-07 15:03 | Outpatient (AMB) | payer OTHER, SELFPAY ==
--- NOTE | 2025-03-07 15:10 | HO.NEPHOV_ITS ---
Vital Signs 03/07/25 15:11 Height 4 ft 9 in BP 126/54 L Blood Pressure Location Lt brachial Position Sitting Pulse 68 Pulse Source Pulse Oximeter Pulse Oximetry (%) 96 Oxygen Delivery Method Room Air Intake Visit Reasons: Previous patient- CKD/Conf Blueprint Clerk Required: No Blueprint Clerk Services: Blueprint Clerk Offered & Declined Accompanied by: Daughter Allergies ibuprofen [From Motrin] Allergy (Intermediate, Verified 03/07/25 15:13) High Blood Pressure, Rash oxycodone [From Percocet] Allergy (Intermediate, Verified 03/07/25 15:13) Itching tirzepatide [From Mounjaro] Adverse Reaction (Severe, Verified 03/07/25 15:13) Diarrhea Medication List - Last Reconciled 03/07/25 by Bam Barragan MD acetaminophen ER 1,300 mg (2 x 650 mg) PO Q8H PRN 30 days albuterol sulfate 90 mcg/actuation 2 inhalations inhalation Q6H PRN 30 days amlodipine 10 mg PO DAILY aspirin 81 mg PO BEDTIME 90 days atorvastatin 80 mg PO BEDTIME 90 days blood pressure monitor As directed blood sugar diagnostic (FreeStyle Lite Strips) Use daily As directed to check blood glucose blood sugar diagnostic (FreeStyle Lite Strips) 3times a day blood-glucose meter (FreeStyle [place] Lite kit) As directed blood-glucose meter (FreeStyle Lite Meter kit) Use daily As directed to check blood sugars blood-glucose sensor (FreeStyle Denton 3 Sensor device) Apply every 14 days As directed to monitor blood glucose blood-glucose sensor (Dexcom G7 Sensor device) Use daily As directed to monitor blood glucose. Change q 10 days blood-glucose,cigar head piercer,cont (Dexcom G7 Thread Tool Grinder Set Up Operator) use daily As directed to monitor blood glucose calcium acetate(phosphat bind) 667 mg PO BID 90 days cane As directed cefuroxime axetil 500 mg PO BID cholecalciferol (vitamin D3) 50 mcg PO DAILY 3 months clotrimazole-betamethasone 1-0.05 % 1 appl topical BID 5 days [Diabetic shoes with inserts As directed] disposable gloves As directed ferrous sulfate 325 mg PO .once a week 90 days fluticasone propionate 50 mcg/actuation 1 spray intranasal DAILY PRN 30 days mbudmendpcj-xsqcxyxvz-qthrajvv 200-62.5-25 mcg (Trelegy Ellipta) 1 inh inhalation DAILY 30 days folic acid 1 mg PO QAM 90 days FreeStyle Lancets (lancets) 3 times a day NS gabapentin 300 mg PO BEDTIME 90 days hydralazine 25 mg PO TID 90 days hydrocortisone 1% (Anti-Itch (hydrocortisone)) 1 appl topical BID PRN 4 weeks [incomtinemce liner pads As directed] insulin glargine U-300 conc (Toujeo SoloStar U-300 Insulin) 24 units (0.08 mL) subcut DAILY 90 days ipratropium-albuterol 0.5 mg-3 mg(2.5 mg base)/3 mL 3 mL inhalation RQ4H WHILE AWAKE ketoconazole 2% 1 appl topical 2XW 30 days lancets (TRUEplus Lancets) As directed test 4 times a day lancets (FreeStyle Lancets) use daily as directed to check blood glucose losartan 25 mg PO DAILY 90 days montelukast 10 mg PO QPM 90 days Novolog FlexPen U-100 Insulin (insulin aspart U-100) 4 units (0.04 mL) subcut TID NS omeprazole 40 mg PO DAILY Oxygen Home Use As directed pen needle, diabetic (BD Sia 2nd Gen Pen Needle) 5 times a day semaglutide (Ozempic) 2 mg (0.75 mL) subcut QWEEK simethicone (Gas Relief (simethicone)) 250 mg (2 x 125 mg) PO BID PRN 90 days sucralfate 1 g PO BID PRN terconazole 0.8% 1 appful vaginal BEDTIME 3 days tobramycin-dexamethasone 0.3-0.1 % 1 drp ophthalmic (eye) QID torsemide 20 mg PO BID [wipes As directed] HPI Comments Details: Elderly woman with a history of longstanding diabetes mellitus and hypertension with congestive heart failure has been referred for CKD. She has a history of CKD. She has baseline creatinine of 1.4 mg/dL. She has had episodes of ARLEY due to hypoperfusion in setting of heart failure. Today she is accompanied by her daughter. She complains of low back pain. No dysuria urgency increased frequency. No shortness of breath. No diarrhea constipation. All other systems were reviewed. 03/07/25 79-year-old female presenting with chronic back pain and evaluation of renal dysfunction. The back pain has persisted for over three weeks and is correlated with findings from a May X-ray that indicated arthritis. She was prescribed Tylenol by her primary care provider, though adherence is uncertain. Additionally, she is monitored for renal dysfunction, with recent kidney function levels reported at 36% after a previous drop to 28%. She has been advised against NSAID use due to the potential risk to kidney function, and an ultrasound of the kidney is planned to investigate further. The patient's diabetes is poorly controlled with blood glucose readings at 8%. 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 Aortic stenosis CKD (chronic kidney disease) stage 3, GFR 30-59 ml/min Dyslipidemia Diabetic polyneuropathy associated with type 2 diabetes mellitus Diabetic nephropathy associated with type 2 diabetes mellitus Chronic kidney disease Hypertension Asthma Thalamic pain syndrome GERD (gastroesophageal reflux disease) Morbid obesity Surgical History H/O aortic valve replacement History of breast lump/mass excision History of tubal ligation History of cholecystectomy Family History Sister History of renal pelvis cancer Father Suicide Mother Lung disease Diabetes mellitus Social History Household Members: Family Housing: House Do you presently have visiting nurse or other home services: Yes (developmental training counselor) Alcohol intake: never Comment: pt stays with pt. Patient Tobacco Use Status: Former Tobacco user Tobacco use type: Cigarette Years Smoked: 5 years e-Cigarette/Vaping Use: Never Used Second Hand Smoke Exposure: No service: No Current occupational status: unemployed and disabled Gender identity: Female Cognitive needs: Yes Hearing needs: No Vision needs: No Female Reproductive History Menstrual Age of Menarche: 10 Physical Exam Vital Signs: Last Vital Signs Pulse 68 03/07/25 15:11 BP 126/54 L 03/07/25 15:11 Pulse Ox 96 03/07/25 15:11 Oxygen Delivery Method Room Air 03/07/25 15:11 Const General: comfortable Nutritional Appearance: well nourished Orientation/consciousness: patient oriented x3 HEENT Head: No normal to inspection Mouth: moist mucous membranes Neck Neck: Yes supple and Yes no JVD Resp Auscultation: clear to auscultation bilaterally, no rales and rub present Cardio Jugular venous distension: no JVD Palpation: no palpable S3 and no palpable S4 Heart sounds: no rubs GI Palpation (GI): Soft to palpation and nontender Percussion: No Fluid wave present General: Yes no CVA tenderness Back/Spine/Pelvis Back: no CVA tenderness Skin General skin exam: no rashes or lesions noted Neuro General: patient oriented x3 Extrem General: Yes no pedal edema and No clubbing Results Reviewed Nephrology Results: Hgb 12.4 g/dl (12.0-16.0) 02/22/25 WBC 10.0 X10*3/uL (4.8-10.8) 02/22/25 Plt Count 387 X10*3/uL (160-400) 02/22/25 Sodium 143 mmol/L (135-145) 03/06/25 Potassium 4.4 mmol/L (3.3-5.1) 03/06/25 Chloride 107 mmol/L (96-108) 03/06/25 Carbon Dioxide 28 mmol/L (22-29) 03/06/25 BUN 23 mg/dL (9-16) H 03/06/25 Creatinine 1.40 mg/dL (0.5-1.4) 03/06/25 Calcium 9.6 mg/dL (8.4-10.2) 03/06/25 Phosphorus 3.0 mg/dL (2.7-4.5) 01/31/25 PTH Intact 100.0 pg/mL (8.7-77.1) H 01/31/25 Urine Protein 300 (3+) mg/dL (Neg-Trace) H 02/22/25 Urine Creatinine 72.15 mg/dL 02/22/25 Assessment & Plan Assessment & Plan (1) CKD (chronic kidney disease) stage 3, GFR 30-59 ml/min: Comment: ARLEY due to compromise in renal perfusion due to CRS Getting diuresis; Recent bump in creatinine and has returned to baseline Code(s): N18.30 - Chronic kidney disease, stage 3 unspecified Category: Medical Qualifiers: Chronic kidney disease stage 3 subtype: stage 3b (GFR 30-44) Qualified Code(s): N18.32 - Chronic kidney disease, stage 3b Plan: Goal is to slow the progression of CKD Maintain blood pressure less than 130/80 Maintain A1c less than 7% She needs weight loss. Might benefit from SGLT2 inhibitors. Continue to avoid nephrotoxic agents including NSAIDs (2) Proteinuria: Comment: Due to underlying diabetic kidney disease. Code(s): R80.9 - Proteinuria, unspecified Category: Medical Plan: Goal is to slow the portion disease Continue with RAAS inhibition. (3) Renal cyst, acquired, right: Comment: Simple cyst Code(s): N28.1 - Cyst of kidney, acquired Category: Medical Plan: Due to low back pain and recent bump in creatinine, will obtain follow up USG She will follow as needed (4) Anemia: Code(s): D64.9 - Anemia, unspecified Category: Medical Qualifiers: Anemia type: other cause Other causes of anemia: other cause, not classified Qualified Code(s): D64.89 - Other specified anemias Plan: Multifactorial. Erythropoietin deficiency could be playing a role. Follow iron stores and see if she needs iron replacement (5) CKD stage 3b, GFR 30-44 ml/min: Code(s): N18.32 - Chronic kidney disease, stage 3b Category: Medical Plan Anti-nausea medication was prescribed for her upcoming Cruise /travels, ensuring comfort and reducing symptoms of motion sickness. Orders: Orders Basic Metabolic Panel 3 Months N18.32 - Chronic kidney disease, stage 3b Medications: New meclizine (Travel-Ease (meclizine)) 12.5 mg (1/2 x 25 mg) PO BID PRN 20 tabs 0RF nausea Coding Level of Care Code Est Pt Level 4 (88803) Diagnoses Stage 3b chronic kidney disease N18.32 Chronic kidney disease stage 3 subtype: stage 3b (GFR 30-44) Proteinuria R80.9 Renal cyst, acquired, right N28.1 Anemia due to other cause, not classified D64.89 Anemia type: other cause Other causes of anemia: other cause, not classified CKD stage 3b, GFR 30-44 ml/min N18.32
[2025-03-07 15:11] VITALS: BP 126/54; PULSE 68; O2SAT 96
--- OUTSIDE RECORDS SUMMARY | 2025-03-07 15:13 | XMS_ITS | Encounter Summary ---
Author Organization [employer] Address [address] [place] [address] [address] [place] [address] Care Team Providers Care Customer Contact Specialist Name Role Phone Marycarmen Quijano MD Primary Care Provider [phone] Reason for Visit * Reason Comments Med Refill Encounter Details Date Type Department Care Team ([facility] Contact Info) Description 03/07/2023 Refill [facility] [address] [place], [place] [id number] Marycarmen Quijano MD [address] [place] [address] Social History Tobacco Use Types Packs/Day Years [...] Team ([facility] Contact Info) Description 07/25/2025 10:00 AM EDT Office Visit [facility] [address] [place] [address] Radha, Johana [address] [place] [address] documented as of this encounter Visit Diagnoses Not on filedocumented in this encounter Care Teams Customer Contact Specialist Relationship Specialty Start Date End Date Marycarmen Quijano MD [address] [place] [address] PCP - General Family Medicine 03/02/23 06/20/23 documented as of this encounter
== END 2025-03-07 15:34 | disposition home or self-care (01) ==
LOC: HO.HKAM 15:03
PROVIDERS: PCP Internal Medicine; Visit Provider Internal Medicine Hypertension Specialist
DX: N18.32 Chronic kidney disease, stage 3b (principal); R80.9 Proteinuria, unspecified; N28.1 Cyst of kidney, acquired; D64.89 Other specified anemias
CPT/HCPCS: 99214

== ENCOUNTER → 2025-03-07 15:03 | Outpatient (BNVA) | payer OTHER, SELFPAY | PROVIDERS: PCP Internal Medicine; Visit Provider Internal Medicine Hypertension Specialist | DX: E11.22 Type 2 diabetes mellitus with diabetic chronic kidney disease (principal); I13.0 Hypertensive heart and chronic kidney disease with heart failure and stage 1 through stage 4 chronic kidney disease, or unspecified chronic kidney disease; I50.9 Heart failure, unspecified; N18.32 Chronic kidney disease, stage 3b; R80.9 Proteinuria, unspecified; N28.1 Cyst of kidney, acquired; D63.1 Anemia in chronic kidney disease | CPT/HCPCS: 99212 ==

== ENCOUNTER 2025-03-30 07:50 | Outpatient (REF) | payer OTHER, SELFPAY ==
--- OUTSIDE RECORDS SUMMARY | 2025-03-30 07:54 | XMS_ITS | Encounter Summary ---
Author Organization [facility] Address [address] [place] [address] [address] [place] [address] Care Team Providers Care Weaver Wire Loom Name Role Phone Marycarmen Quijano MD Primary Care Provider [phone] Reason for Visit * Reason Comments Med Refill Encounter Details Date Type Department Care Team ([facility] Contact Info) Description 03/07/2023 Refill [facility] [address] [place], [place] [phone] Marycarmen Quijano MD [address] [place] [address] Social History Tobacco Use Types Packs/Day Years [...] Upcoming Encounters Date Type Department Care Team ([facility] Contact Info) Description 07/25/2025 10:00 AM EDT Office Visit [facility] ADULT DENTAL [address] [place] [address] Radha, Johana [address] [place] [address] documented as of this encounter Visit Diagnoses Not on filedocumented in this encounter Care Teams Weaver Wire Loom Relationship Specialty Start Date End Date Marycarmen Quijano MD [address] [place] [address] PCP - General Family Medicine 03/02/23 06/20/23 documented as of this encounter
[2025-03-30 08:36] LABS: Parathyroid Hormone Intact 132.5 pg/mL (8.7-77.1)
[2025-03-30 08:44] LABS: Albumin Level 3.6 g/dL (3.5-5.0); Calcium 9.4 mg/dL (8.4-10.2); Estimated Glomerular Filt Rate 33
[2025-03-30 08:51] LABS: Vitamin D 25-OH Total 27.3 ng/mL (>30)
[2025-04-02 18:08] LABS: Calcium, Ionized 5.3 mg/dL (4.7-5.5)
== END 2025-03-30 07:51 | disposition home or self-care (01) ==
LOC: HO.LAB 07:50
PROVIDERS: Student in an Organized Health Care Education/Training Program; PCP Internal Medicine; Visit Provider Internal Medicine
DX: E21.3 Hyperparathyroidism, unspecified (principal)
CPT/HCPCS: 36415; 82040; 82306; 82310; 82330; 82565; 83970

== ENCOUNTER 2025-04-02 13:27 | Outpatient (AMB) | payer OTHER, SELFPAY ==
[2025-04-02 13:38] VITALS: BP 124/66; PULSE 67; O2SAT 97; BMI 39.7
--- NOTE | 2025-04-02 13:38 | A.OFFPC_ITS ---
Vital Signs 04/02/25 13:38 Height 4 ft 9 in Weight 183 lb 8 oz BMI 39.7 BP 124/66 Blood Pressure Location Lt brachial Position Sitting Pulse 67 Pulse Source Pulse Oximeter Pulse Oximetry (%) 97 Oxygen Delivery Method Room Air Intake Visit Reasons: dm Bridges Supervisor Required: No Accompanied by: Self / Same As Patient Allergies ibuprofen (From Motrin) Allergy (Intermediate, Verified 04/02/25 16:07) High Blood Pressure, Rash oxycodone (From Percocet) Allergy (Intermediate, Verified 04/02/25 16:07) Itching tirzepatide (From Mounjaro) Adverse Reaction (Severe, Verified 04/02/25 16:07) Diarrhea Medication List - Last Reconciled 04/02/25 by Shelby Golden MD acetaminophen ER 1,300 mg (2 x 650 mg) PO Q8H PRN 30 days albuterol sulfate 90 mcg/actuation 2 inhalations inhalation Q6H PRN 30 days amlodipine 10 mg PO DAILY aspirin 81 mg PO BEDTIME 90 days atorvastatin 80 mg PO BEDTIME 90 days blood pressure monitor As directed blood sugar diagnostic (FreeStyle Lite Strips) Use daily As directed to check blood glucose blood sugar diagnostic (FreeStyle Lite Strips) 3times a day blood-glucose meter (FreeStyle Russell Lite kit) As directed blood-glucose meter (FreeStyle Lite Meter kit) Use daily As directed to check blood sugars blood-glucose sensor (FreeStyle D[place] 3 Sensor device) Apply every 14 days As directed to monitor blood glucose blood-glucose sensor (Dexcom G7 Sensor device) Use daily As directed to monitor blood glucose. Change q 10 days blood-glucose,hot cell technician,cont (Dexcom G7 Drinking Water Technician) use daily As directed to monitor blood glucose calcium acetate(phosphat bind) 667 mg PO BID 90 days cane As directed cefuroxime axetil 500 mg PO BID cholecalciferol (vitamin D3) 50 mcg PO DAILY 3 months clotrimazole-betamethasone 1-0.05 % 1 appl topical BID 5 days [Diabetic shoes with inserts As directed] disposable gloves As directed ferrous sulfate 325 mg PO .once a week 90 days fluticasone propionate 50 mcg/actuation 1 spray intranasal DAILY PRN 30 days mlejvgtbobo-hcpsklccb-tzktdugp 200-62.5-25 mcg (Trelegy Ellipta) 1 inh inhala tion DAILY 30 days folic acid 1 mg PO QAM 90 days FreeStyle Lancets (lancets) 3 times a day NS gabapentin 300 mg PO BEDTIME 90 days hydralazine 25 mg PO TID 90 days hydrocortisone 1% (Anti-Itch (hydrocortisone)) 1 appl topical BID PRN 4 weeks [incomtinemce liner pads As directed] insulin glargine U-300 conc (Toujeo SoloStar U-300 Insulin) 24 units (0.08 mL) subcut DAILY 90 days ipratropium-albuterol 0.5 mg-3 mg(2.5 mg base)/3 mL 3 mL inhalation RQ4H WHILE AWAKE ketoconazole 2% 1 appl topical 2XW 30 days lancets (TRUEplus Lancets) As directed test 4 times a day lancets (FreeStyle Lancets) use daily as directed to check blood glucose losartan 25 mg PO DAILY 90 days meclizine (Travel-Ease (meclizine)) 12.5 mg (1/2 x 25 mg) PO BID PRN montelukast 10 mg PO QPM 90 days Novolog FlexPen U-100 Insulin (insulin aspart U-100) 4 units (0.04 mL) subcut TID NS omeprazole 40 mg PO DAILY Oxygen Home Use As directed pen needle, diabetic (BD Sia 2nd Gen Pen Needle) 5 times a day semaglutide (Ozempic) 2 mg (0.75 mL) subcut QWEEK simethicone (Gas Relief (simethicone)) 250 mg (2 x 125 mg) PO BID PRN 90 days sucralfate 1 g PO BID PRN terconazole 0.8% 1 appful vaginal BEDTIME 3 days tobramycin-dexamethasone 0.3-0.1 % 1 drp ophthalmic (eye) QID torsemide 20 mg PO BID [wipes As directed] Tobacco use date assessed: 04/02/25 Fall risk assessment: 1 Fall in past year Last assessed Fall Risk: 04/02/25 Dental Screening Dental Screen Date: 04/02/25 Did you have a dental visit in the last 12 months?: No Did you have a dental problem in the last 6 months where you did not have access to dental care?: No Was dental information given to patient?: No HPI HPI Comments History of Present Illness Details The patient is a 79-year-old female presenting with monitoring of her chronic conditions, including diabetes mellitus, heart failure, and chronic kidney disease. The patient's diabetes mellitus has been managed with medications, and her last hemoglobin A1c was 8.3% measured last month. She reports adherence to her medication regimen, including insulin therapy. The patient has a history of heart failure, and she continues to see her motion picture projectionist apprentice regularly. She reports no significant fluid retention, and her weight has decreased from 188 pounds in January to 183 pounds currently. Chronic kidney disease is being monitored, and the patient reports that her renal function remains stable. The patient has hyperlipidemia, with a recent LDL cholesterol level of 92 mg/dL, which is above the target of 70 mg/dL. She is on atorvastatin 80 mg for cholesterol management. The patient also experiences osteoarthritis, particularly affecting her hips, and reports pain management with topical treatments like Voltaren cream. 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 Aortic stenosis CKD (chronic kidney disease) stage 3, GFR 30-59 ml/min Dyslipidemia Diabetic polyneuropathy associated with type 2 diabetes mellitus Diabetic nephropathy associated with type 2 diabetes mellitus Chronic kidney disease Hypertension Asthma Thalamic pain syndrome GERD (gastroesophageal reflux disease) Morbid obesity Surgical History (Updated 04/02/25 @ 16:19 by LINDA Oliveira) H/O colonoscopy H/O aortic valve replacement History of breast lump/mass excision History of tubal ligation History of cholecystectomy Family History Sister History of renal pelvis cancer Father Suicide Mother Lung disease Diabetes mellitus Social History Household Members: Family Housing: House Do you presently have visiting nurse or other home services: Yes (supervisor sterile processing) Alcohol intake: never Comment: pt stays with pt. Patient Tobacco Use Status: Former Tobacco user Tobacco use type: Cigarette Years Smoked: 5 years e-Cigarette/Vaping Use: Never Used Second Hand Smoke Exposure: No service: No Current occupational status: unemployed and disabled Gender identity: Female Cognitive needs: Yes Hearing needs: No Vision needs: No Female Reproductive History Menstrual Age of Menarche: 10 Questionnaire PHQ-9 Over the last 2 weeks, how often have you been bothered by any of the following problems? 1. Little interest or pleasure in doing things: not at all 2. Feeling down, depressed, or hopeless: not at all 3. Trouble falling or staying asleep, or sleeping too much: not at all 4. Feeling tired or having little energy: several days 5. Poor appetite or overeating: not at all 6. Feeling bad about yourself - or that you are a failure or have let yourself or your family down: not at all 7. Trouble concentrating on things, such as reading the newspaper or watching television: not at all 8. Moving or speaking so slowly that other people could have noticed. Or the opposite - being so fidgety or restless that you have been moving around a lot more than usual: not at all 9. Thoughts that you would be better off or of hurting yourself in some way: not at all Total score: 1 Depression Screening Interpretation: Negative Depression Screening Done: Yes 85545 - PHQ-9 Billing: Yes Source: Developed by Drs. Farhad Murdock, Caron Elkins, El Esqueda and colleagues, with an educational susanne from [employer]. Thrive Questionnaire Date Thrive assessed: 04/02/25 I am a: Patient What is your living situation today?: I have a steady place to live Within the past 12 months, did the food you bought not last and you didn't have the money to get more?: Never true Within the past 12 months, did you worry whether your food would run out before you got money to buy more?: Never true Do you have trouble paying for medicines?: No Do you have trouble getting transportation to medical appointments?: No Do you have trouble paying your heating and electricity bill?: No Do you have trouble taking care of your child, family member or friend?: No Do you have trouble with day-to-day activities such as bathing, preparing meals, shopping, managing finances, etc.?: No Are you currently unemployed and looking for a job?: Yes Are you interested in more education?: No Please select the resources that you would like help with: None Currently or been in a relationship where the following occur: No concerns reported THRIVE Score: 0 AUDIT C Alcohol Use Questionnaire (AUDIT-C) 1. How often do you have a drink containing alcohol?: Never 3. How often do you have six or more drinks on one occasion?: Never Total Score: 0 Score Reviewed/Action Taken: No JES-7 AMB Questionnaire JES-7 Date JES - 7 assessed: 04/02/25 Feeling nervous, anxious, or on edge: 0 = Not at all Not being able to stop or control worryin = Not at all Worrying too much about different things: 0 = Not at all Trouble relaxin = Not at all Being so restless that it is hard to sit still: 0 = Not at all Becoming easily annoyed or irritable: 0 = Not at all Feeling afraid as if something awful might happen: 0 = Not at all Total JES-7 score (0-4 normal; 5-9 mild; 10-14 moderate; 15-21 severe): 0 Source: Developed by Drs. Farhad Murdock, Caron Elkins, El Esqueda and colleagues, with an educational susanne from [employer]. JES-7 Assessment Billing JES-7 Assessment Tool: JES-7 Assessment 36621 Review of Systems Const All systems reviewed & are unremarkable except as noted in HPI and below Card Denies chest pain at rest, Denies chest pain with activity, Denies edema, Denies irregular heart rhythm, Denies claudication, Denies dyspnea, Denies dyspnea on exertion, Denies orthopnea, Denies paroxysmal nocturnal dyspnea and Denies slow heart rate Resp Denies cough, Denies dyspnea and Denies dyspnea on exertion GI Denies abdominal pain, Denies change in bowel habits, Denies excessive flatus, Denies nausea and Denies vomiting Denies urinary incontinence, Denies urinary hesitancy and Denies urinary urgency Musc Denies atrophy, Denies deformity and Denies limited range of motion Physical exam (Primary Care) Vital Signs: Last Vital Signs Pulse 67 04/02/25 13:38 BP 124/66 04/02/25 13:38 Pulse Ox 97 04/02/25 13:38 Oxygen Delivery Method Room Air 04/02/25 13:38 BMI result Body Mass Index 39.7 BMI Assessment/Plan discussion: High BMI High, discussed plan: lifestyle, weight reduction, dietary and physical activity Tobacco/Smoking Status: Tobacco use Status Tobacco use date assessed 04/02/25 04/02/25 13:45 Patient Tobacco Use Status Former Tobacco user 04/02/25 13:45 Tobacco use type Cigarette 04/02/25 13:45 e-Cigarette/Vaping Use Never Used 04/02/25 13:45 PHQ-9: PHQ-9 Score PHQ-9: Total score 1 04/02/25 13:58 Depression Screening Interpretation: Negative Thrive Assessment: Date of Thrive Assessment Date Thrive assessed 04/02/25 04/02/25 13:45 Currently or been in a relationship where the following occur: No concerns reported Resp Effort & Inspection: normal respiratory effort Auscultation: clear to auscultation bilaterally Cardio Jugular venous distension: no JVD Rate: regular rate Rhythm: regular rhythm Heart sounds: S1 normal heart sound present and S2 normal heart sound present Extrem General: Yes full ROM Coding Level of Care Code Est Pt Level 4 (96877) Complex EM visit Add On G2211 Diagnoses Essential hypertension I10 Chronic systolic congestive heart failure I50.22 Heart failure chronicity: chronic Heart failure type: systolic Mild major depression F32.0 Hyperlipidemia LDL goal <70 E78.5 Uncontrolled type 2 diabetes mellitus with chronic kidney disease, with long- term current use of insulin E11.22; E11.65; Z79.4 CKD stage 3b, GFR 30-44 ml/min N18.32 COPD (chronic obstructive pulmonary disease) J44.9 Lumbar pain M54.50 Left hip pain M25.552 Right hip pain M25.551 Additional Codes JES-7 Assessment Billing - JES-7 Assessment Tool: JES-7 Assessment 24652 ([id number]) PHQ-9 - 69701 - PHQ-9 Billing: Yes ([id number]) Time Spent (min) 24 Assessment & Plan Assessment & Plan (1) Essential hypertension: Code(s): I10 - Essential (primary) hypertension Category: Medical (2) Congestive heart failure: Code(s): I50.9 - Heart failure, unspecified Category: Medical Qualifiers: Heart failure chronicity: chronic Heart failure type: systolic Qualified Code(s): I50.22 - Chronic systolic (congestive) heart failure (3) Mild major depression: Code(s): F32.0 - Major depressive disorder, single episode, mild Category: Medical (4) Hyperlipidemia LDL goal <70: Code(s): E78.5 - Hyperlipidemia, unspecified Category: Medical (5) Uncontrolled type 2 diabetes mellitus with chronic kidney disease, with long-term current use of insulin: Code(s): E11.22 - Type 2 diabetes mellitus with diabetic chronic kidney disease; E11.65 - Type 2 diabetes mellitus with hyperglycemia; Z79.4 - longterm (current) use of insulin Category: Medical (6) CKD stage 3b, GFR 30-44 ml/min: Code(s): N18.32 - Chronic kidney disease, stage 3b Category: Medical (7) COPD (chronic obstructive pulmonary disease): Code(s): J44.9 - Chronic obstructive pulmonary disease, unspecified Category: Medical (8) Lumbar pain: Code(s): M54.50 - Low back pain, unspecified Category: Medical (9) Left hip pain: Code(s): M25.552 - Pain in left hip Category: Medical (10) Right hip pain: Code(s): M25.551 - Pain in right hip Category: Medical Plan The patient's diabetes management will continue with her current insulin regimen, and her hemoglobin A1c will be re-evaluated in the next visit to assess control. For heart failure, the patient will maintain regular follow-ups with her motion picture projectionist apprentice to monitor her condition and adjust treatment as necessary. Chronic kidney disease will be monitored with regular renal function tests to ensure stability. Hyperlipidemia management will continue with atorvastatin 80 mg, and lipid levels will be rechecked to achieve the target LDL level of 70 mg/dL. For osteoarthritis, the patient will continue using topical treatments like Voltaren cream for pain management. Patient was informed and verbally consented to the use of an ambient scribe for clinic note documentation during this visit. Orders: Orders IRON PROFILE 4 Months D64.9 - Anemia, unspecified Lipid Panel 4 Months E78.5 - Hyperlipidemia, unspecified Vitamin D 25-OH Total 4 Months E55.9 - Vitamin D deficiency, unspecified NT-proBNP 4 Months I50.22 - Chronic systolic (congestive) heart failure Complete Blood Count Auto Diff 4 Months D64.9 - Anemia, unspecified Microalbumin, Random (w Creat) 4 Months R80.9 - Proteinuria, unspecified Vitamin B12 and Folate 4 Months E53.8 - Deficiency of other specified B group vitamins Comprehensive [place]. Panel Fast 4 Months I50.22 - Chronic systolic (congestive) heart failure Medications: Refilled sucralfate 1 g PO BID PRN 60 tabs 0RF upper abdominal pain omeprazole 40 mg PO DAILY 30 caps 0RF
--- OUTSIDE RECORDS SUMMARY | 2025-04-02 13:56 | XMS_ITS | Clinical Summary ---
Author Organization [facility] Address [address] [address] Phone Care Team Providers Care Ditcher Operator Name Role Phone Marycarmen Quijano MD Primary Care Provider [phone] Allergies Active Allergy Reactions Criticality Noted Date [...] day Active ergocalciferol (VITAMIN D-2) 1.25 MG (75784 UT) capsule Take 1 capsule by mouth [...] failure 01/28/2021 Atherosclerotic heart diseas [place] coronary artery without angina pectoris 01/28/2021 Chronic [...] Upcoming Encounters Date Type Department Care Team (Latest Contact Info) Description 04/29/2025 Orders Only [facility] [address] [address] Alycia Rios ARNP [address] [phone] Stage 3b chronic kidney disease (HCC); Persistent proteinuria; Renal osteodystrophy 05/14/2025 3:00 PM EDT Office Visit [facility] [address] [place] [address] Dominick Reece MD [address] [address] Health Maintenance Due Date Last Done [...] A1C 8.5(H) <5 % PVNMA Comments From [facility] PVNMA Creatinine 1.35(H) 0.70 - 1.30 mg/dl PVNMA Potassium 4.5 3.5 - 5.1 mmol/L PVNMA Calcium 8.8 8.4 - 10.2 mg/dl PVNMA eGFR Non- 38(L) >60 ml/min PVNMA 09/18/2020 us [facility] [id number] LICITED RESULTS Final Result PVNMA from Last 3 Months or Most Recently Relevant to Health Maintenance Insurance [facility] ([id number]) [facility] ([id number]) Care Teams Ditcher Operator Relationship Specialty Start Date End Date Marycarmen Quijano MD [address] [place] [id number] PCP - General 10/14/20
--- OUTSIDE RECORDS SUMMARY | 2025-04-02 13:56 | XMS_ITS | Encounter Summary ---
Author Organization [employer] Address [address] [place] [address] [address] [place] [address] Care Team Providers Care Police Lieutenant Patrol Name Role Phone Marycarmen Quijano MD Primary Care Provider [phone] Reason for Visit * Reason Comments Med Refill Encounter Details Date Type Department Care Team ([facility] Contact Info) Description 03/07/2023 Refill [facility] [address] [place], [place] [id number] Marycarmen Quijano MD [address] [place] [address] Social History Tobacco Use Types Packs/Day Years [...] Upcoming Encounters Date Type Department Care Team ([facility] Contact Info) Description 07/25/2025 10:00 AM EDT Office Visit [facility] [address] [place] [address] Radha, Johana [address] [place] [address] documented as of this encounter Visit Diagnoses Not on filedocumented in this encounter Care Teams Police Lieutenant Patrol Relationship Specialty Start Date End Date Marycarmen Quijano MD [address] [place] [address] PCP - General Family Medicine 03/02/23 06/20/23 documented as of this encounter
--- OUTSIDE RECORDS SUMMARY | 2025-04-02 13:56 | XMS_ITS | Patient Health Record ---
Author Organization [facility] Address [address] [place] [address] Care Team Providers Care Hand Patcher Name Role Phone Jaime VORA, Shelby Primary Care Provider Unavail able Randy Leal Unavailable [phone] Allergies Allergen (clinical drug ingredient) Drug/Non Drug [...] Problem Acquired hammer toe of right foot ([id number] 9105) Other hammer toe(s) (acquired), right foot (M20.41) Active confirmed Problem Acquired hammer toe of left foot ([id number] 9103) Other hammer toe(s) (acquired), left foot (M20.42) Active confirmed Problem Type 2 diabetes mellitus with diabetic polyneuropathy (E11.42) Active confirmed Vital Signs Blood pressure diastolic 70 mm Hg 12/26/2024 Height 4 ft 9 in in 12/26/2024 Blood pressure systolic 120 mm Hg 12/26/2024 Weight 192 lbs 12/26/2024 BMI 41.54 kg/m2 12/26/2024 Procedures Procedure Date Ordered Date Performed Result Body Sit e 56939-[id number] NAIL, 6 OR MORE 12/26/2024 N/A 53681-Bgvxagmf Plate 12/26/2024 N/A 79062-JHYJ SKIN LESIONS, 2 TO 4 12/26/2024 N/A 72328-YMVS SKIN LESIONS, 2 TO 4 06/16/2024 N/A 04203-WAUNYDE NAIL, 6 OR MORE 06/16/2024 N/A Encounters Encounter Location Date Provider Diagnosis [facility] [address] [address] 06/16/2024 Randy Mel Type 2 diabetes mellitus with diabetic polyneuropathy E11.42 and Tinea unguium B35.[address] [facility] [address] 12/26/2024 Randy Mel Type 2 diabetes mellitus with diabetic polyneuropathy E11.42 ; Tinea unguium B35.1 ; Other hammer toe(s) (acquired), right foot M20.41 ; Other hammer toe(s) (acquired), left foot M20.42 and Subungual hematoma of left foot, initial encounter S90.222A [facility] [address] 09/19/2024 Randy Leal [facility] [address] 12/26/2024 Randy Leal [facility] [address] 03/27/2025 Randy Leal Assessments Encounter Date Diagnosis (ICD [...] Treatment Pending Test Test Name Order Date 32773-[id number] NAIL, 6 OR MORE 03/17/2024 83110-JIFLAZT NAIL, 6 OR MORE 06/16/2024 80280-JSNSWPK NAIL, 6 OR MORE 12/26/2024 47798-Mctpzxoe Plate 12/26/2024 37757-HAQQ SKIN LESIONS, 2 TO 4 12/27/19 10780-ZYLY SKIN LESIONS, 2 TO 4 06/16/20 57192-FRXM SKIN LESIONS, 2 TO 4 03/17/20 Next Appt Details Provider Name:Randy Leal , 04/24/2025 02:30:00 PM, [address] [place] [address], [phone], Insurance Providers Payer Name Payer Address Payer Phone Subscriber Number Group Number Insured Name Patient Relationship to Insured Coverage Start Date Coverage End Date [facility] [employer] Claims [address] [place] [phone] [id number] Katherine Jamil Self - patient is the insured Medical (General) History Medical History History ICD Code Anxiety Arthritis asthma Back,Hip,and Knee pain CAD (Cholesterol) Cataracts Depression Diabetic Heart disease High blood pressure Kidney disease Lung disease Numbness Poor circulation Reflux ( GERD) sinusitis Vascular phlebitis (clots) Chicken pox Replacement Heart Valves Transfusions Surgical History Surgery Date(Month/Year)
--- OUTSIDE RECORDS SUMMARY | 2025-04-02 13:57 | XMS_ITS | Data Portability ---
Author Organization 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 Lab rapid SARS CoV 2 Ag, QL IA, respiratory specimen 2023 024 [facility], [address] [place] [address], [id number] 4 09:06:35 rapid flu (A+B) [address], [phone] 4 09:06:54 CBC w/ auto diff 2021 022 YODIT [facility] (Centralized Electronic Ordering - All Locations), Patient Can Go To The Location Of Their Choice, [id number] 2 00:05:50 CMP, serum or plasma 2021 [facility] (Centralized Electronic Ordering - All Locations), Patient Can Go To The Location Of Their Choice, [address] 19:37:00 unlisted lab - urinalysis w/reflex culture 2021 YODIT [facility] (Centralized Electronic Ordering - All Locations), Patient Can Go To The Location Of Their Choice, [address] 01:53:39 cmp, whole blood + [facility], [address] [place] [address], [id number] 2 16:24:03 urinalysis, dipstick 2021 [email or web address] [address] [place] [address], [id number] 16:24:43 Referral None recorded. Procedures None recorded. Surgeries None recorded. Imaging None recorded. Medication Orders prednisone 10 mg tablet 2023 [facility], [address] [place] [address], [id number], 4 12:30:23 azithromyci n 250 mg tablet 2023 024 [facility], [address] [place] [address], [id number], 4 12:30:23 azithromyci n 250 mg tablet 2023 024 [email or web address] [facility], [address] [place] [address], [id number], 4 20:08:15 prednisone 20 mg tablet 2023 024 [email or web address] [facility], [address] [place] [address], [id number], 4 20:08:15 ipratropium 0.5 mg-albutero l 3 mg (2.5 mg base)/3 mL nebulizatio n soln 2023 024 [email or web address] [facility], [address] [place] [address], [id number], 20:08:15 Patient TargetsNo targets recorded. Patient InstructionsNo [...] 00:05:50 02/17/2002/17/2022 COMPL ETE CBC WITH DIFF MCH 23.5 [...] 00:05:50 02/17/2002/17/2022 COMPL ETE CBC WITH DIFF lymph # [...] 02/17/2002/17/2022 COMPL ETE CBC WITH DIFF neut 78.3 [...] The Location Of Their Choice, 02/17/2022 00:22:44 05/16/20 22 02/17/2022 UA W/REF REGAN CULTU RE [...] 01:53:39 02/17/2002/17/2022 UA W/REF REGAN CULTU RE culture indication CULTUR E NOT INDICA NATALIE Not Available [facility] (Centralized Electronic Ordering - All Locations) Patient Can Go To The Location Of Their Choice, 02/17/2022 01:53:39 02/17/2002/16/2022 urina lysis , dipst ick Leukocytes neg Not Available Main - [facility] [address] [place] [address], [id number] 02/16/2022 16:23:39 02/17/20 22 02/16/2022 urina lysis , dipst ick Nitrite negati ve Not Available Main - [facility] [address] [place] [address], [id number] 02/16/2022 16:23:39 02/17/20 22 02/16/2022 urina lysis , dipst ick Protein 4+ Not Available Main - [facility] [address], [address] 02/16/2022 16:23:39 02/17/20 22 02/16/2022 urina lysis , dipst ick Ketone 2+ Not Available Main - [facility] [address], [address] 02/16/2022 16:23:39 02/17/20 22 02/16/2022 urina lysis , dipst ick Glucose negati ve Not Available Main - [facility] [address] [place] [address], [id number] 02/16/2022 16:23:39 02/17/20 22 02/16/2022 cmp, whole blood + picco lo ALB 2.8 Not Available Main - [facility] [address], [address] 02/16/2022 16:22:48 02/17/20 22 02/16/2022 cmp, whole blood + picco lo ALP 114 Not Available Main - [facility] [address], [address] 02/16/2022 16:22:48 02/17/20 22 02/16/2022 cmp, whole blood + picco lo ALT 12 Not Available Main - [facility] [address], [address] 02/16/2022 16:22:48 02/17/20 22 02/16/2022 cmp, whole blood + picco lo AST 18 Not Available Main - [facility] [address], [address] 02/16/2022 16:22:48 02/17/20 22 02/16/2022 cmp, whole blood + picco lo BUN 17 Not Available Main - [facility] [address], [address] 02/16/2022 16:22:48 02/17/20 22 02/16/2022 cmp, whole blood + picco lo Ca 9.8 Not Available Main - [facility] [address], [address] 02/16/2022 16:22:48 02/17/20 22 02/16/2022 cmp, whole blood + picco lo CI- normal Not Available Main - [facility] [address], [address] 02/16/2022 16:22:48 02/17/20 22 02/16/2022 cmp, whole blood + picco lo CRE 1.3 Not Available Main - [facility] [address], [address] 02/16/2022 16:22:48 02/17/20 22 02/16/2022 cmp, whole blood + picco lo GLU 326 Not Available Main - [facility] [address], [address] 02/16/2022 16:22:48 02/17/20 22 02/16/2022 cmp, whole blood + picco lo K+ 3.8 Not Available Main - [facility] [address], [address] 02/16/2022 16:22:48 02/17/20 22 02/16/2022 cmp, whole blood + picco lo Na+ 138 Not Available Main - [facility] [address], [address] 02/16/2022 16:22:48 02/17/20 22 02/16/2022 cmp, whole blood + picco lo tCO2 27 Not Available Main - [facility] [address], [address] 02/16/2022 16:22:48 Result Notes None recorded. Medical Equipment None Reported. Allergies Allergen ID Allergen Name Allergen Category Reaction Reaction Severity Criticality Documentation Date Start Date Code Code System Note Provider Name and Address Organization Details Recorded Time 86601 Motrin medicatio n Not available Not available Not available 09/18/202461268 8 RxNorm Not Available [facility] - production 4 15:17:42 00891 acetamino phen / oxycodone medicatio n Not available Not available Not available 09/18/2024 53621 3 RxNorm Not Available [facility] - production 4 15:17:42 85004 tramadol medicatio n Not available Not available Not available 09/18/2024 65482 RxNorm Not Available [facility] - production 4 15:17:42 Medications Name Sig [...] BY MOUTH ONCE WEEKLY ON WEDNESDAY MORNING active Not Available Not Available No [...] Available No t Available Dexcom G7 [employer] USE DIRECTED active Not Available Not Available [...] Available No t Available Vitals Date Recorded Oxygen saturation Oxygen saturation in [...] cm 99 % 99 % 98.9 [degF] 55706.2 4 g 20 /min 164 mm[Hg] 63 mm[Hg] 164 mm[Hg] 63 mm[Hg] Not Available [facility] - production 2 14:54:34 Date Recorded Body temperature Heart rate Respiratory rate Oxygen saturation Oxygen saturation in Arterial blood by Pulse oximetry Inhaled oxygen flow rate Systolic blood pressure Diastolic blood pressure Provider Name and Address Organization Details Last Updated DateTime 3 97.8 [degF] 64 /min 20 /min 91 % 91 % 2 L/min 146 mm[Hg] 65 mm[Hg] Not Available [facility] - production 3 16:22:45 Date Recorded Heart rate Oxygen saturation Oxygen saturation in Arterial blood by Pulse oximetry Body temperature Respiratory rate Systolic blood pressure Diastolic blood pressure Provider Name and Address Organization Details Last Updated DateTime 4 78 /min 93 % 93 % 97.1 [degF] 16 /min 137 mm[Hg] 76 mm[Hg] Not Available [facility] - production 4 20:04:27 Social History None recorded. Functional Status None recorded. Mental Status None recorded. Family History Nothing Reported. Medical History No medical history recorded. Gynecological HistoryNo gynecological history recorded. Obstetrics History GPAL:G 0 P 0 0 0 0 Past Encounters Encounter ID Performer Location Encounter Start Date Encounter Closed Date Diagnosis/Indication Diagnosis SNOMED-CT Code Diagnosis ICD10 Code Diagnosis Note [id number] Hanane Mena MD Main - [address] [phone] 02/16/2022 14:13:00 05/29/2022 14:46:24 Acute low back pain 281211471 M54.50 Pt p/w 5 days of atraumatic [...] no improvemen t in pain consider imagingPer gas distribution plant operator, requestor asked for CBC w/ diff and CMP (not acknowledg ed in [facility] portal) but no orders placed. Reasonable to check CBC w/ diff and CMP thus orders placed. Ketonuria [id number] R82. 4 Pt with 2+ urinary ketones [...] and call PCP if FSG > 350. [id number] Damien Alfredo MD Main - [facility] [address] [place] [phone] 04/08/2023 16:22:43 04/08/2023 23:08:09 Hypoxia 417116737 R09.02 [id number] Wander Smith MD Main - [facility] [address] [place] [phone] 09/18/2024 20:04:23 09/18/2024 21:06:53 Acute exacerbation of chronic obstructive pulmonary disease 100514072 J44.1 Health Concerns Section Related Observation LastModified by Organization Detai ls LastModified Time None Recorded Concern Status LastModified by Organization Details LastModified Time None Recorded Advance Directives Directive None Recorded Payers Insurance Date Sequence Insurance Name Policy Number Policy Rendon Covered Member ID Rendon Member ID Guarantor Name 04/08/2023 1 [facility] - DOS PRIOR TO 2023 - DUAL ELIGIBLE (MEDICARE REPLACEMENT/AD VANTAGE - HMO) Katherine Griffith [id number] Katherine Griffith 09/18/2024 1 [facility] - DOS ON OR AFTER 2023 - DUAL ELIGIBLE - ASSISTED OPTIONS AND ONE CARE (MEDICARE REPLACEMENT/AD VANTAGE - HMO) Katherine Griffith [id number] Katherine Griffith Notes Date Note Type Note [...] .................... .................... .................... .................... .................... .................... . Windows Administrator Note: Patient is a 76 year old [...] urologist last month according to urgent care technician, kidney function was good. Urine sample obtained and dipped; changes in PRO, SG and KET detected. Urine sent to [facility] for UA and Culture. Vital signs obtained and all within normal limits. Red flags discussed. Consulted with Dr. Mena. Patient is to follow up with PCP/care team regarding her signs, symptoms and todays visit. Dr. Mena recommended blood work. Windows Administrator Sara Davis was dispatched for procedure. See gas distribution plant operator Sara Davis run report for further patient [...] which suggests h Hanane Mena MD [address], [place], [address], [employer] 02/16/2022 16:24:46 04/08/2023 text/html [facility] Nursing Assessment: Reason For Request: Daughter [...] Verify member name/- Damien Alfredo MD [address], [place], [phone], [place] 04/08/2023 16:28:34 09/18/2024 text/html [facility] Nurse Triage Notes (Elina Lopez - RN): Patient Reports: Cough Denies: Increased work of breathing/labored with or without fever Unable to speak in full sentences without distress Discoloration of skin -cyanosis Needs to sleep sitting up, can t catch breath Shortness of breath in [...] s/s and seek emergency treatment if needed. Windows Administrator Organization Information for [facility] Business Legal Name: [facility] Transportation Address: [address] [place] [address], [place] [address], Filling Hauler Weaving: Louis Stockton MD CLIA No.: [id number] Windows Administrator POC Test Results from [facility] Rapid COVID antigen (20:02:29) COVID: - Rapid influenza antigen (20:02:30) Flu: - Wander Smith MD [address] [place] [address],[address], [place], [address], [place] - [facility] 09/18/2024 21:05:29 OBGyn Episode No OBEpisode recorded.
== END 2025-04-02 14:06 | disposition home or self-care (01) ==
LOC: HO.HMCH 13:27
PROVIDERS: PCP Internal Medicine; Visit Provider Internal Medicine
DX: I12.9 Hypertensive chronic kidney disease with stage 1 through stage 4 chronic kidney disease, or unspecified chronic kidney disease (principal); I50.22 Chronic systolic (congestive) heart failure; E11.22 Type 2 diabetes mellitus with diabetic chronic kidney disease; E11.65 Type 2 diabetes mellitus with hyperglycemia; Z79.4 Long term (current) use of insulin; N18.32 Chronic kidney disease, stage 3b; J44.9 Chronic obstructive pulmonary disease, unspecified; F32.0 Major depressive disorder, single episode, mild; E78.5 Hyperlipidemia, unspecified; M54.50 Low back pain, unspecified; M25.552 Pain in left hip; M25.551 Pain in right hip

== ENCOUNTER → 2025-04-02 13:27 | Outpatient (BNVA) | payer OTHER, SELFPAY | PROVIDERS: PCP Internal Medicine; Visit Provider Internal Medicine | DX: R10.13 Epigastric pain (principal); K59.00 Constipation, unspecified; K21.9 Gastro-esophageal reflux disease without esophagitis; K86.89 Other specified diseases of pancreas; K86.81 Exocrine pancreatic insufficiency; R14.0 Abdominal distension (gaseous); I13.0 Hypertensive heart and chronic kidney disease with heart failure and stage 1 through stage 4 chronic kidney disease, or unspecified chronic kidney disease; E11.22 Type 2 diabetes mellitus with diabetic chronic kidney disease; I50.22 Chronic systolic (congestive) heart failure; N18.9 Chronic kidney disease, unspecified; F32.0 Major depressive disorder, single episode, mild; E78.5 Hyperlipidemia, unspecified; E11.65 Type 2 diabetes mellitus with hyperglycemia; Z79.4 Long term (current) use of insulin | CPT/HCPCS: 96127; 99212 ==

== ENCOUNTER 2025-04-02 16:01 | Outpatient (AMB) | payer OTHER, SELFPAY ==
--- NOTE | 2025-04-02 16:07 | A.OFFVIS_ITS ---
Vital Signs 04/02/25 16:17 Height 4 ft 9 in Weight 189 lb 9.561 oz BMI 41.0 BP 152/72 H Blood Pressure Location Rt brachial Position Sitting Pulse 68 Pulse Source Pulse Oximeter Pulse Oximetry (%) 96 Oxygen Delivery Method Room Air Intake Visit Reasons: Follow up Constipation from 01/25/23 Intake Note: Est pt for re-est of care from 2022. Mgmt of constipation. CC; C.O. bloating, N+V, diarrhea, epigastric pain which radiates throughout and intermittent dizziness. Pt reports her sx have been progressively worse throughout the last two weeks. Hazmat Cdl Driver Required: Yes Hazmat Cdl Driver Services: Hazmat Cdl Driver Offered & Declined Accompanied by: Daughter Allergies ibuprofen (From Motrin) Allergy (Intermediate, Verified 04/02/25 16:07) High Blood Pressure, Rash oxycodone (From Percocet) Allergy (Intermediate, Verified 04/02/25 16:07) Itching tirzepatide (From Mounjaro) Adverse Reaction (Severe, Verified 04/02/25 16:07) Diarrhea HPI HPI Follow up Constipation from 01/25/23: Details: LAST VISIT: Exocrine pancreatic insufficiency Continue Creon meals. Discussed with patient following up with low fat diet. Avoid process, fried or greasy food. Dysphagia Patient reports that her symptoms of dysphagia have been. Unsure if patient is taking pantoprazole, however she believes that she is and states that her medication is packed by the pharmacy and packaged together. GERD (gastroesophageal reflux disease) Continue avoiding dietary triggers in late night snacking. Continue with pantoprazole. SUPERVISOR ELECTRONIC TESTING will call us if patient does not have the medication at home. Patient when she returns will bring all of her medications with her. Please remind patient before making an appointment with her to bring all her medications to next visit. Constipation Encouraged patient to take MiraLax daily. Continue Senokot 2 tablets every evening. Patient was encouraged to increase fluid intake as much as all out due to her CDK and Congestive heart failure. I will see patient in 3 months, sooner on as needed basis. Patient is agreeable to this plan and verbalizes understanding of instructions. She was given the opportunity to ask questions and all questions answered. ? Thank you for allowing me to participate in her care Plan Discontinued polyethylene glycol 3350 (Miralax) Discontinued Reason: Duplicate 17 grams PO DAILY 510 grams 2RF metronidazole Take with food, Avoid alcohol and vinegar products Discontinued Reason: Patient Completed Course 500 mg PO BID 7 days 14 tabs 0RF TODAY'S VISIT Patient is here today for follow-up. Patient continues to have epigastric pain nausea with occasional vomiting. Reports postprandial abdominal bloating. Occasional loose stools. Patient is taking senna as needed. Denies melena, hematochezia. Reports occasional dyspepsia without dysphagia or odynophagia. Patient reports worsening abdominal bloating in the past couple weeks. Burning sensation in her upper abdomen after eating. 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 Aortic stenosis CKD (chronic kidney disease) stage 3, GFR 30-59 ml/min Dyslipidemia Diabetic polyneuropathy associated with type 2 diabetes mellitus Diabetic nephropathy associated with type 2 diabetes mellitus Chronic kidney disease Hypertension Asthma Thalamic pain syndrome GERD (gastroesophageal reflux disease) Morbid obesity Surgical History (Updated 04/02/25 @ 16:19 by LINDA Oliveira) H/O colonoscopy H/O aortic valve replacement History of breast lump/mass excision History of tubal ligation History of cholecystectomy Family History Sister History of renal pelvis cancer Father Suicide Mother Lung disease Diabetes mellitus Social History Household Members: Family Housing: House Do you presently have visiting nurse or other home services: Yes (networks software consultant) Alcohol intake: never Comment: pt stays with pt. Patient Tobacco Use Status: Former Tobacco user Tobacco use type: Cigarette Years Smoked: 5 years e-Cigarette/Vaping Use: Never Used Second Hand Smoke Exposure: No service: No Current occupational status: unemployed and disabled Gender identity: Female Cognitive needs: Yes Hearing needs: No Vision needs: No Female Reproductive History Menstrual Age of Menarche: 10 Review of Systems Const Denies weight gain and Denies weight loss ENT Reports no additional complaints, Reports dysphagia (occasional) and Denies odynophagia Card Reports no additional complaints Resp Reports no additional complaints GI Denies abdominal pain, Reports belching, Denies melena, Reports bloating, Denies change in bowel habits, Reports constipation, Reports dysphagia (occasional), Denies excessive flatus, Denies dyspepsia, Reports heartburn, Reports diarrhea, Denies loose stools, Denies nausea, Denies odynophagia and Denies vomiting Reports no additional complaints Musc Reports no additional complaints Neuro Reports no additional complaints Psych Reports no additional complaints Endo Reports no additional complaints Physical Exam Vital Signs: Last Vital Signs Pulse 68 04/02/25 16:17 BP 152/72 H 04/02/25 16:17 Pulse Ox 96 04/02/25 16:17 Oxygen Delivery Method Room Air 04/02/25 16:17 BMI result Body Mass Index 41.0 Const General: healthy appearing and no acute distress Nutritional Appearance: obese Orientation/consciousness: patient oriented x3 Resp Effort & Inspection: normal respiratory effort, able to speak in complete sentences, no tracheal deviation and symmetric chest movement Auscultation: clear to auscultation bilaterally Cardio Rate: regular rate GI Inspection: Yes normal to inspection, No distended and Yes obesity Palpation (GI): Soft to palpation, not firm, nontender and No hepatosplenomegaly present Auscultation: normal bowel sounds General: Yes no CVA tenderness Back/Spine/Pelvis Back: no CVA tenderness Skin General skin exam: elasticity normal, turgor normal and dry skin Neuro General: patient oriented x3 Psych Appearance: grossly normal Mental Status: mental status grossly normal Assessment & Plan Assessment & Plan (1) GERD (gastroesophageal reflux disease): Code(s): K21.9 - Gastro-esophageal reflux disease without esophagitis Category: Medical Qualifiers: Esophagitis presence: esophagitis presence not specified Qualified Code(s): K21.9 - Gastro-esophageal reflux disease without esophagitis (2) Pancreatic insufficiency: Code(s): K86.89 - Other specified diseases of pancreas Category: Medical (3) Exocrine pancreatic insufficiency: Code(s): K86.81 - Exocrine pancreatic insufficiency Category: Medical (4) Postprandial epigastric pain: Code(s): R10.13 - Epigastric pain (5) Postprandial abdominal bloating: Code(s): R14.0 - Abdominal distension (gaseous) Plan We will change PPI to Nexium. Will check for malabsorption, check lipase, transglutaminase, thyroid study liver panel. We will recheck pancreatic last days. In the past patient had diarrhea could be falls positive results. Patient will take fiber to help her bulk stool. Eat smaller meals and more ofte n. Avoid dietary triggers and late night snacking. Staying upright for minimal 3 hours after meals discussed with patient. Follow-up in 2 months, sooner on as needed basis. She is agreeable to this plan and verbalizes understanding of instructions. She was given the opportunity to ask questions and all questions answered. Thank you for allowing me to participate in her care Orders: Orders Vitamin D 25-OH (D2 and D3) 04/03/25 E55.9 - Vitamin D deficiency, unspecified Lipase 04/03/25 R10.9 - Unspecified abdominal pain Transglutaminase IgA 04/03/25 R10.9 - Unspecified abdominal pain Vitamin B12 and Folate 04/03/25 R19.7 - Diarrhea, unspecified TSH reflex Free T4 04/03/25 K59.00 - Constipation, unspecified Liver Panel 04/03/25 R74.01 - Elevation of levels of liver transaminase levels Pancreatic Elastase-1 04/09/25 R10.9 - Unspecified abdominal pain Medications: New esomeprazole magnesium (Nexium) 40 mg PO DAILY 30 caps 2RF K21.9 - Gastro- esophageal reflux disease without esophagitis methylcellulose (laxative) (Citrucel) take it with full glass of water 500 mg PO DAILY 90 tabs 2RF K59.00 - Constipation, unspecified Discontinued omeprazole Discontinued Reason: Doctor's Order 40 mg PO DAILY 30 caps 0RF Coding Level of Care Code Est Pt Level 4 (09356) Complex EM visit Add On G2211 Diagnoses Gastroesophageal reflux disease, unspecified whether esophagitis present K21.9 Esophagitis presence: esophagitis presence not specified Pancreatic insufficiency K86.89 Exocrine pancreatic insufficiency K86.81 Postprandial epigastric pain R10.13 Postprandial abdominal bloating R14.0 Time Spent (min) 35 Comment 25 minute spent with patient and additional 10 minutes spent reviewing her records
[2025-04-02 16:17] VITALS: BP 152/72; PULSE 68; O2SAT 96; BMI 41.0
== END 2025-04-02 16:46 | disposition home or self-care (01) ==
LOC: HO.HGI 16:01
PROVIDERS: PCP Internal Medicine; Visit Provider Nurse Practitioner Family
DX: K21.9 Gastro-esophageal reflux disease without esophagitis (principal); K86.89 Other specified diseases of pancreas; K86.81 Exocrine pancreatic insufficiency; R10.13 Epigastric pain; R14.0 Abdominal distension (gaseous)
CPT/HCPCS: 99214; G2211

== ENCOUNTER 2025-04-03 16:08 | Outpatient (REF) | payer OTHER, SELFPAY ==
--- OUTSIDE RECORDS SUMMARY | 2025-04-03 16:26 | XMS_ITS | Clinical Summary ---
Author Organization [facility] Address [address] [address] Phone Care Team Providers Care Federal Appellate Law Clerk Name Role Phone Marycarmen Quijano MD Primary Care Provider [phone] Allergies Active Allergy Reactions Criticality Noted Date [...] day Active ergocalciferol (VITAMIN D-2) 1.25 MG (51418 UT) capsule Take 1 capsule by mouth [...] failure 01/28/2021 Atherosclerotic heart diseas e of [place] coronary artery without angina pectoris 01/28/2021 Chronic [...] arteriosclerosis 07/11/2012 Overview (12/07/2022): Cath 01/2010 at [facility] showed LCx 80% and [...] Orders Only [facility] [address] [phone] Alycia Rios ARNP [address] [phone] Stage 3b chronic kidney disease (HCC); Persistent proteinuria; Renal osteodystrophy 05/14/2025 3:00 PM EDT Office Visit [facility] [address] [place] [address] Dominick Reece MD [address] [address] Health Maintenance Due Date Last [...] A1C 8.5(H) <5 % [facility] Comments From [facility] Creatinine 1.35(H) 0.70 - 1.30 mg/dl [facility] Potassium 4.5 3.5 - 5.1 mmol/L [facility] Calcium 8.8 8.4 - 10.2 mg/dl [facility] eGFR Non- 38(L) >60 ml/min [facility] 09/18/2020 us [facility] [id number] LICITED RESULTS Final Result [facility] from Last 3 Months or Most Recently Relevant to Health Maintenance Insurance [facility] ([id number]) [facility] ([id number]) Care Teams Federal Appellate Law Clerk Relationship Specialty Start Date End Date Marycarmen Quijano MD [address] [place] [phone] PCP - General 10/14/20
--- OUTSIDE RECORDS SUMMARY | 2025-04-03 16:26 | XMS_ITS | Data Portability ---
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 sat 91% on 2L pt in [...] [place], respiratory specimen 2023 024 [facility], [address] [place] [address], [id number] 4 09:06:35 rapid flu (A+B) 2023 024 [facility], [address] [place] [address], [id number] 4 09:06:54 CBC w/ auto diff 2021 022 [facility] (Centralized Electronic Ordering - All Locations), Patient Can Go To The Location Of Their Choice, [address] 2 00:05:50 CMP, serum or plasma 2021 [facility] (Centralized Electronic Ordering - All Locations), Patient Can Go To The Location Of Their Choice, [address] 19:37:00 unlisted lab - urinalysis w/reflex culture 2021 [facility] (Centralized Electronic Ordering - All Locations), Patient Can Go To The Location Of Their Choice, [address] 01:53:39 cmp, whole blood + [email or web address], [address] [place] [address], [id number] 2 16:24:03 urinalysis, dipstick 2021 [email or web address] Main [facility], [address] [place] [address], [id number] 16:24:43 Referral None recorded. Procedures None recorded. Surgeries None recorded. Imaging None recorded. Medication Orders prednisone 10 mg tablet 2023 [facility], [address] [place] [address], [id number], 4 12:30:23 azithromyci n 250 mg tablet 2023 024 [facility], [address] [place] [address], [id number], 4 12:30:23 azithromyci n 250 mg tablet 2023 024 [facility], [address] [place] [address], [id number], 4 20:08:15 prednisone 20 mg tablet 2023 024 [email or web address] [facility], [address] [place] [address], [id number], 4 20:08:15 ipratropium 0.5 mg-albutero l 3 mg (2.5 mg base)/3 mL nebulizatio n soln 2023 024 [email or web address] [facility], [address] [place] [address], [id number], 20:08:15 Patient TargetsNo targets recorded. Patient InstructionsNo [...] Their Choice, 02/17/2022 01:53:39 02/17/2002/17/2022 UA W/REF REGNA CULTU RE urine WBCs 1 /hpf (0-5) [...] 01:53:39 02/17/2002/17/2022 UA W/REF RGEAN CULTU RE bacteria SLIGHT hpf (neg) abnormal [...] Leukocytes neg Not Available Main - [facility] [address] [place] [address], [id number] 02/16/2022 16:23:39 02/17/20 22 02/16/2022 urina lysis , dipst ick Nitrite negati ve Not Available Main - [facility] [address] [place] [address], [id number] 02/16/2022 16:23:39 02/17/20 22 02/16/2022 urina lysis , dipst ick Protein 4+ Not Available Main - [facility] [address], [address] 02/16/2022 16:23:39 02/17/20 22 02/16/2022 urina lysis , dipst ick Ketone 2+ Not Available Main - [facility] [address], [address] 02/16/2022 16:23:39 02/17/20 22 02/16/2022 urina lysis , dipst ick Glucose negati ve Not Available Main - [facility] [address] [place] [address], [address] 02/16/2022 16:23:39 02/17/20 22 02/16/2022 cmp, whole blood + picco lo ALB 2.8 Not Available Main - [facility] [address], [address] 02/16/2022 16:22:48 02/17/20 22 02/16/2022 cmp, whole blood + picco lo ALP 114 Not Available Main - [facility] [address], [address] 02/16/2022 16:22:48 02/17/20 22 02/16/2022 cmp, whole blood + picco lo ALT 12 Not Available Main - [facility] [address], [address] 02/16/2022 16:22:48 02/17/20 22 02/16/2022 cmp, whole blood + picco lo AST 18 Not Available Main - [facility] [address], [address] 02/16/2022 16:22:48 02/17/20 22 02/16/2022 cmp, whole blood + picco lo BUN 17 Not Available Main - [facility] [address], [address] 02/16/2022 16:22:48 02/17/20 22 02/16/2022 cmp, whole blood + picco lo Ca 9.8 Not Available Main - [facility] [address], [address] 02/16/2022 16:22:48 02/17/20 22 02/16/2022 cmp, whole blood + picco lo CI- normal Not Available Main - [facility] [address], [address] 02/16/2022 16:22:48 02/17/20 22 02/16/2022 cmp, whole blood + picco lo CRE 1.3 Not Available Main - [facility] [address], [address] 02/16/2022 16:22:48 02/17/20 22 02/16/2022 cmp, whole blood + picco lo GLU 326 Not Available Main - [facility] [address], [address] 02/16/2022 16:22:48 02/17/20 22 02/16/2022 cmp, whole blood + picco lo K+ 3.8 Not Available Main - [facility] [address], [address] 02/16/2022 16:22:48 02/17/20 22 02/16/2022 cmp, whole blood + picco lo Na+ 138 Not Available Main - [facility] [address], [address] 02/16/2022 16:22:48 02/17/20 22 02/16/2022 cmp, whole blood + picco lo tCO2 27 Not Available Main - [facility] [address], [address] 02/16/2022 16:22:48 Result Notes None recorded. Medical Equipment None Reported. Allergies Allergen ID Allergen Name Allergen Category Reaction Reaction Severity Criticality Documentation Date Start Date Code Code System Note Provider Name and Address Organization Details Recorded Time 02445 Motrin medicatio n Not available Not available Not available 09/18/202476365 8 RxNorm Not Available [facility] - production 4 15:17:42 42789 acetamino phen / oxycodone medicatio n Not available Not available Not available 09/18/2024 84596 3 RxNorm Not Available [facility] - production 4 15:17:42 98743 tramadol medicatio n Not available Not available Not available 09/18/2024 14695 RxNorm Not Available [facility] - production 4 15:17:42 Medications Name Sig [...] Not Available No t Available Dexcom G7 Aws Developer USE DIRECTED active Not Available Not Available [...] cm 99 % 99 % 98.9 [degF] 49902.2 4 g 20 /min 164 mm[Hg] 63 [...] Note 1594 Hanane Mena MD Main - [address] [address] 02/16/2022 14:13:00 05/29/2022 14:46:24 Acute low back pain 578050209 M54.50 Pt p/w 5 days of atraumatic [...] no improvemen t in pain consider imagingPer welding machine operator arc, requestor asked for CBC w/ diff and CMP (not acknowledg ed in [facility] portal) but no orders placed. Reasonable to check CBC w/ diff and CMP thus orders placed. Ketonuria 259376047 R82. 4 Pt with 2+ urinary ketones [...] and call PCP if FSG > 350. 70279 Damien Alfredo MD Main - [facility] [address] [place] [phone] 04/08/2023 16:22:43 04/08/2023 23:08:09 Hypoxia 594770950 R09.02 43712 Wander Smith MD Main - [facility] [address] [place] [address] 09/18/2024 20:04:23 09/18/2024 21:06:53 Acute exacerbation of chronic obstructive pulmonary disease 657418500 J44.1 Health Concerns Section Related Observation LastModified [...] (MEDICARE REPLACEMENT/AD VANTAGE - HMO) Katherine Griffith [id number] Katherine Griffith 09/18/2024 1 [facility] - DOS ON OR AFTER 2023 - DUAL ELIGIBLE - [employer] AND ONE CARE (MEDICARE REPLACEMENT/AD VANTAGE - HMO) Katherine Griffith [id number] Katherine Griffith Notes Date Note Type Note [...] .................... .................... .................... .................... .................... .................... . Fire Equipment Inspector Helper Note: Patient is a 76 year old [...] by urologist last month according to career specialist, kidney function was good. Urine sample obtained and dipped; changes in PRO, SG and KET detected. Urine sent to [facility] for UA and Culture. Vital signs obtained and all within normal limits. Red flags discussed. Consulted with Dr. Mena. Patient is to follow up with PCP/care team regarding her signs, symptoms and todays visit. Dr. Mena recommended blood work. Fire Equipment Inspector Helper Sara Davis was dispatched for procedure. See welding machine operator arc Sara Davis run report for further patient [...] which suggests h Hanane Mena MD [address] [facility] [address], [place], [address], [employer] 02/16/2022 16:24:46 04/08/2023 text/html [facility] Nursing Assessment: Reason For Request: Daughter [...] Verify member name/- Damien Alfredo MD [address], [place], [address], [employer] 04/08/2023 16:28:34 09/18/2024 text/html [facility] Nurse Triage Notes (Elina Lopez - [...] s/s and seek emergency treatment if needed. Fire Equipment Inspector Helper Organization Information for [facility] Business Legal Name: [facility] Transportation Address: [address] [place] [address], [place] [address], Electronic Scale Subassembler: Louis Stockton MD CLIA No.: [id number] Fire Equipment Inspector Helper POC Test Results from [facility] Rapid COVID antigen (20:02:29) COVID: - Rapid influenza antigen (20:02:30) Flu: - Wander Smith MD [address] [place] [address],[address], [place], [address], [place] - [employer] 09/18/2024 21:05:29 OBGyn Episode No OBEpisode recorded.
--- OUTSIDE RECORDS SUMMARY | 2025-04-03 16:26 | XMS_ITS | Patient Health Record ---
Author Organization [facility] Address [address] [place] [address] Care Team Providers Care Acoustical Tile Drill Press Operator Name Role Phone Jaime VORA, Shelby Primary Care Provider Unavail able Randy Leal Unavailable [phone] Allergies Allergen (clinical drug ingredient) Drug/Non Drug [...] Problem Acquired hammer toe of right foot (3052004069852408 ) Other hammer toe(s) (acquired), right foot (M20.41) Active confirmed Problem Acquired hammer toe of left foot (3982474682177059 ) Other hammer toe(s) (acquired), left foot (M20.42) Active confirmed Problem Polyneuropathy due to type 2 diabetes mellitus (765793366) Type 2 diabetes mellitus with diabetic polyneuropathy (E11.42) Active confirmed Vital Signs Blood pressure diastolic 70 mm Hg 12/26/2024 Height 4 ft 9 in in 12/26/2024 Blood pressure systolic 120 mm Hg 12/26/2024 Weight 192 lbs 12/26/2024 BMI 41.54 kg/m2 12/26/2024 Procedures Procedure Date Ordered Date Performed Result Body Sit e 08625-HWANRYD NAIL, 6 OR MORE 06/16/2024 N/A 20418-ZXJB SKIN LESIONS, 2 TO 4 06/16/2024 N/A 52762-XRGLTWE NAIL, 6 OR MORE 12/26/2024 N/A 46507-Wowbpyel Plate 12/26/2024 N/A 95371-SCLW SKIN LESIONS, 2 TO 4 12/26/2024 N/A Encounters Encounter Location Date Provider Diagnosis [facility] [address] [address] 06/16/2024 Randy Mel Type 2 diabetes mellitus with diabetic polyneuropathy E11.42 and Tinea unguium B35.[address] [facility] [address] 12/26/2024 Rnadyalycia Leal Type 2 diabetes mellitus with diabetic polyneuropathy E11.42 ; Tinea unguium B35.1 ; Other hammer toe(s) (acquired), right foot M20.41 ; Other hammer toe(s) (acquired), left foot M20.42 and Subungual hematoma of left foot, initial encounter S90.222A [facility] [address] 09/19/2024 [facility] [address] 12/26/2024 Randy Leal [facility] [address] 03/27/2025 Randy Leal Assessments Encounter Date Diagnosis [...] Treatment Pending Test Test Name Order Date 49709-JRPAEVC NAIL, 6 OR MORE 03/17/2024 70905-KJXPPZF NAIL, 6 OR MORE 06/16/2024 87309-QAHILOH NAIL, 6 OR MORE 12/26/2024 90918-Fytwvvlo Plate 12/26/2024 67812-BUOJ SKIN LESIONS, 2 TO 4 12/27/19 41908-XIBR SKIN LESIONS, 2 TO 4 06/16/20 55113-EDUA SKIN LESIONS, 2 TO 4 03/17/20 Next Appt Details Provider Name:Randy Leal , 04/24/2025 02:30:00 PM, [address] [place], [address], Insurance Providers Payer Name Payer Address Payer Phone Subscriber Number Group Number Insured Name Patient Relationship to Insured Coverage Start Date Coverage End Date [facility] SCO Claims [address] [place] [phone] [id number] Katherine Jamil Self - patient is the insured Medical (General) History Medical History History ICD Code Anxiety Arthritis asthma Back,Hip,and Knee pain CAD (Cholesterol) Cataracts Depression Diabetic Heart disease High blood pressure Kidney disease Lung disease Numbness Poor circulation Reflux ( GERD) sinusitis Vascular phlebitis (clots) Chicken pox Replacement Heart Valves Transfusions Surgical History Surgery Date(Month/Year)
--- OUTSIDE RECORDS SUMMARY | 2025-04-03 16:26 | XMS_ITS | Encounter Summary ---
Author Organization [employer] Address [address] [place] [address] [address] [place] [address] Care Team Providers Care Telecommunications Officer Name Role Phone Marycarmen Quijano MD Primary Care Provider [phone] Reason for Visit * Reason Comments Med Refill Encounter Details Date Type Department Care Team ([facility] Contact Info) Description 03/07/2023 Refill [facility] [address] [place], [place] [phone] Marycarmen Quijano MD [address] [place] [address] Social History Tobacco Use Types Packs/Day Years [...] Upcoming Encounters Date Type Department Care Team ([facility] Contact Info) Description 07/25/2025 10:00 AM EDT Office Visit [facility] [address] [place] [address] Radha, Johana [address] [place] [address] documented as of this encounter Visit Diagnoses Not on filedocumented in this encounter Care Teams Telecommunications Officer Relationship Specialty Start Date End Date Marycarmen Quijano MD [address] [place] [address] PCP - General Family Medicine 03/02/23 06/20/23 documented as of this encounter
[2025-04-03 17:56] LABS: Alanine Aminotransferase 20 U/L (0-31); Albumin Level 3.7 g/dL (3.5-5.0); Alkaline Phosphatase 147 U/L (39-117); Aspartate Amino Transferase 24 U/L (5-31); Lipase 45 U/L (8-78); Total Protein 7.1 g/dL (6.5-8.0)
[2025-04-03 18:03] LABS: Folate 14.6 ng/mL (> or = 4.0); Vitamin B12 267 pg/mL (200-900)
[2025-04-09 01:18] LABS: Vitamin D 25-OH, D2 23 ng/mL; Vitamin D 25-OH, D3 19 ng/mL; Vitamin D 25-OH, Total 42 ng/mL (30-100)
== END 2025-04-03 16:09 | disposition home or self-care (01) ==
LOC: HO.LAB 16:08
PROVIDERS: PCP Internal Medicine; Visit Provider Nurse Practitioner Family
DX: R74.01 Elevation of levels of liver transaminase levels (principal); E55.9 Vitamin D deficiency, unspecified; R10.9 Unspecified abdominal pain; R19.7 Diarrhea, unspecified; K59.00 Constipation, unspecified
CPT/HCPCS: 36415; 80076; 82306; 82607; 82746; 83690; 84443; 86364

== ENCOUNTER 2025-04-09 08:48 | Outpatient (REF) | payer OTHER, SELFPAY ==
--- OUTSIDE RECORDS SUMMARY | 2025-04-09 09:01 | XMS_ITS | Patient Health Record ---
Author Organization [facility] Address [address] [place] [address] Care Team Providers Care Instructional Supervisor Name Role Phone Jaime VORA, Shelby Primary Care Provider Unavail able Randy Leal Unavailable [phone] Allergies Allergen (clinical drug ingredient) Drug/Non Drug [...] Problem Acquired hammer toe of right foot (973070525970 9105) Other hammer toe(s) (acquired), right foot (M20.41) Active confirmed Problem Acquired hammer toe of left foot (956001072682 9103) Other hammer toe(s) (acquired), left foot (M20.42) Active confirmed Problem Type 2 diabetes mellitus with diabetic polyneuropathy (E11.42) Active confirmed Vital Signs Blood pressure diastolic 70 mm Hg 12/26/2024 Height 4 ft 9 in in 12/26/2024 Blood pressure systolic 120 mm Hg 12/26/2024 Weight 192 lbs 12/26/2024 BMI 41.54 kg/m2 12/26/2024 Procedures Procedure Date Ordered Date Performed Result Body Sit e 98306-AYPSQAK NAIL, 6 OR MORE 06/16/2024 N/A 94706-RGDV SKIN LESIONS, 2 TO 4 06/16/2024 N/A 91022-DBUDHKO NAIL, 6 OR MORE 12/26/2024 N/A 56796-Ztwdcovs Plate 12/26/2024 N/A 73318-LYHL SKIN LESIONS, 2 TO 4 12/26/2024 N/A Encounters Encounter Location Date Provider Diagnosis [facility] [address] [address] 06/16/2024 Randy Mel Type 2 diabetes mellitus with diabetic polyneuropathy E11.42 and Tinea unguium B35.[address] [facility] [address] 12/26/2024 Randy Mel Type 2 diabetes mellitus with diabetic polyneuropathy E11.42 ; Tinea unguium B35.1 ; Other hammer toe(s) (acquired), right foot M20.41 ; Other hammer toe(s) (acquired), left foot M20.42 and Subungual hematoma of left foot, initial encounter S90.222A [facility] [address] 09/19/2024 Randy Leal [facility] [address] 12/26/2024 Randy Leal [facility] [address] 03/27/2025 Randy Leal Assessments Encounter Date Diagnosis [...] Treatment Pending Test Test Name Order Date 00046-QCHZUFY NAIL, 6 OR MORE 03/17/2024 91014-EAGTHXP NAIL, 6 OR MORE 06/16/2024 60944-JOGBPXF NAIL, 6 OR MORE 12/26/2024 63276-Pqtqhsoe Plate 12/26/2024 57752-TZAE SKIN LESIONS, 2 TO 4 12/27/19 63711-SHKW SKIN LESIONS, 2 TO 4 06/16/20 96583-JVSB SKIN LESIONS, 2 TO 4 03/17/20 Next Appt Details Provider Name:Randy Leal , 04/24/2025 02:30:00 PM, [address] [place] [address], [address], Insurance Providers Payer Name Payer Address Payer Phone Subscriber Number Group Number Insured Name Patient Relationship to Insured Coverage Start Date Coverage End Date [facility] SCO Claims [address] [place] [phone] [id number] Katherine Jamil Self - patient is the insured Medical (General) History Medical History History ICD Code Anxiety Arthritis asthma Back,Hip,and Knee pain CAD (Cholesterol) Cataracts Depression Diabetic Heart disease High blood pressure Kidney disease Lung disease Numbness Poor circulation Reflux ( GERD) sinusitis Vascular phlebitis (clots) Chicken pox Replacement Heart Valves Transfusions Surgical History Surgery Date(Month/Year)
--- OUTSIDE RECORDS SUMMARY | 2025-04-09 09:01 | XMS_ITS | Clinical Summary ---
Author Organization [facility] Address [address] [address] Phone Care Team Providers Care Energy Director Name Role Phone Marycarmen Quijano MD Primary Care Provider [phone] Allergies Active Allergy Reactions Criticality Noted Date [...] day Active ergocalciferol (VITAMIN D-2) 1.25 MG (30357 UT) capsule Take 1 capsule by mouth [...] failure 01/28/2021 Atherosclerotic heart diseas e of [place] coronary artery without angina pectoris 01/28/2021 Chronic [...] Orders Only [facility] [address] [address] Alycia Rios ARNP [address] [address] Stage 3b chronic kidney disease (HCC); Persistent proteinuria; Renal osteodystrophy 05/14/2025 3:00 PM EDT Office Visit [facility] [address] [place] [address] Dominick Reece MD [address] [address] Health Maintenance Due Date Last Done Comments Diabetes: Ophthalmology Exam 11/04/2020 Diabetes: Pedal Pulse Checked 11/04/2020 Diabetes: Sensory Foot Exam 11/04/2020 Diabetes: Visual Foot Exam 11/04/2020 Diabetes: Hemoglobin A1C 12/17/2020 09/18/2020 Influenza Vaccine (#1) 2025 2, 07/20/2022, 06/05/2020, Additional history exists Pneumococcal [...] A1C 8.5(H) <5 % [facility] Comments From [facility] PVNMA Creatinine 1.35(H) 0.70 - 1.30 mg/dl PVNMA Potassium 4.5 3.5 - 5.1 mmol/L PVNMA Calcium 8.8 8.4 - 10.2 mg/dl PVNMA eGFR Non- 38(L) >60 ml/min PVNMA 09/18/2020 us [facility]version [facility] [id number] LICITED RESULTS Final Result PVNMA from Last 3 Months or Most Recently Relevant to Health Maintenance Insurance [facility] ([id number]) [facility] ([id number]) Care Teams Energy Director Relationship Specialty Start Date End Date Marycarmen Quijano MD [address] [place] [address] PCP - General 10/14/20
--- OUTSIDE RECORDS SUMMARY | 2025-04-09 09:01 | XMS_ITS | Encounter Summary ---
Author Organization [employer] Address [address] [place] [address] [address] [place] [address] Care Team Providers Care Pr Internship Name Role Phone Marycarmen Quijano MD Primary Care Provider [phone] Reason for Visit * Reason Comments Med Refill Encounter Details Date Type Department Care Team ([facility] Contact Info) Description 03/07/2023 Refill [facility] P[facility]S [address] [place], [place] [phone] Marycarmen Quijano MD [address] [place] [address] Social History Tobacco Use Types Packs/Day Years [...] Upcoming Encounters Date Type Department Care Team ([facility] Contact Info) Description 07/25/2025 10:00 AM EDT Office Visit [facility] [address] [place] [address] Radha, Johana [address] [place] [address] documented as of this encounter Visit Diagnoses Not on filedocumented in this encounter Care Teams Pr Internship Relationship Specialty Start Date End Date Marycarmen Quijano MD [address] [place] [address] PCP - General Family Medicine 03/02/23 06/20/23 documented as of this encounter
--- OUTSIDE RECORDS SUMMARY | 2025-04-09 09:02 | XMS_ITS | Data Portability ---
Author Organization [employer] [facility], [facility] Address [address] [place] [id number] Care Team Providers Care Rate Manager Name Role Phone HIM CCA OTHER Assessment Encounter Date Assessment Date Assessment LastModified by Organization Details LastModified Time 04/08/2023 04/08/2023 77 YOF with CHF, COPD recent hospitalization being seen for report of low 02 sat at home in the 80s, On lens polisher hand exam sat 91% on 2L pt in [...] follow up w pcp in 1 week [email or web address] Not available 09/18/2024 20:08:58 Plan of Treatment Reminders Order Date Submit Date Provider Last Modified By Organization Details Last Modified Time Details Appointments None recorded. Lab rapid SARS CoV 2 Ag, QL IA, respiratory specimen 2023 024 [facility], [address] [place] [address], [id number] 4 09:06:35 rapid flu (A+B) 2023 024 [facility], [address] [place] [address], [id number] 4 09:06:54 CBC w/ auto diff 2021 022 [facility] (Centralized Electronic Ordering - All Locations), Patient Can Go To The Location Of Their Choice, [id number] 2 00:05:50 CMP, serum or plasma 2021 [facility] (Centralized Electronic Ordering - All Locations), Patient Can Go To The Location Of Their Choice, [address] 19:37:00 unlisted lab - urinalysis w/reflex culture 2021 [facility] (Centralized Electronic Ordering - All Locations), Patient Can Go To The Location Of Their Choice, [address] 01:53:39 cmp, whole blood + gloria 2021 [facility] [address] [place] [address], [id number] 2 16:24:03 urinalysis, dipstick 2021 [email or web address], [address] [place] [address], [id number] 16:24:43 Referral None recorded. Procedures None recorded. Surgeries None recorded. Imaging None recorded. Medication Orders prednisone 10 mg tablet 2023 [facility], [address] [place] [address], [id number], 4 12:30:23 azithromyci n 250 mg tablet 2023 024 [facility], [address] [place] [address], [id number], 4 12:30:23 azithromyci n 250 mg tablet 2023 024 [email or web address] [facility], [address] [place] [address], [id number], 4 20:08:15 prednisone 20 mg tablet 2023 024 [facility], [address] [place] [address], [id number], 4 20:08:15 ipratropium 0.5 mg-albutero l 3 mg (2.5 mg base)/3 mL nebulizatio n soln 2023 024 [email or web address] [facility], [address] [place] [address], [id number], 20:08:15 Patient TargetsNo targets recorded. Patient InstructionsNo [...] neg Not Available Main - [facility] [address] [place] [address], [id number] 02/16/2022 16:23:39 02/17/20 22 02/16/2022 urina lysis , dipst ick Nitrite negati ve Not Available Main - [facility] [address] [place] [address], [id number] 02/16/2022 16:23:39 02/17/20 22 02/16/2022 urina lysis , dipst ick Protein 4+ Not Available Main - [facility] [address], [id number] 02/16/2022 16:23:39 02/17/20 22 02/16/2022 urina lysis , dipst ick Ketone 2+ Not Available Main - [facility] [address], [address] 02/16/2022 16:23:39 02/17/20 22 02/16/2022 urina lysis , dipst ick Glucose negati ve Not Available Main - [facility] [address] [place] [address], [id number] 02/16/2022 16:23:39 02/17/20 22 02/16/2022 cmp, whole blood + picco lo ALB 2.8 Not Available Main - [facility] [address], [id number] 02/16/2022 16:22:48 02/17/20 22 02/16/2022 cmp, whole blood + picco lo ALP 114 Not Available Main - [facility] [address], [id number] 02/16/2022 16:22:48 02/17/20 22 02/16/2022 cmp, whole blood + picco lo ALT 12 Not Available Main - [facility] [address], [address] 02/16/2022 16:22:48 02/17/20 22 02/16/2022 cmp, whole blood + picco lo AST 18 Not Available Main - [facility] [address], [address] 02/16/2022 16:22:48 02/17/20 22 02/16/2022 cmp, whole blood + picco lo BUN 17 Not Available Main - [facility] [address], [address] 02/16/2022 16:22:48 02/17/20 22 02/16/2022 cmp, whole blood + picco lo Ca 9.8 Not Available Main - [facility] [address], [address] 02/16/2022 16:22:48 02/17/20 22 02/16/2022 cmp, whole blood + picco lo CI- normal Not Available Main - [facility] [address], [address] 02/16/2022 16:22:48 02/17/20 22 02/16/2022 cmp, whole blood + picco lo CRE 1.3 Not Available Main - [facility] [address], [address] 02/16/2022 16:22:48 02/17/20 22 02/16/2022 cmp, whole blood + picco lo GLU 326 Not Available Main - [facility] [address], [address] 02/16/2022 16:22:48 02/17/20 22 02/16/2022 cmp, whole blood + picco lo K+ 3.8 Not Available Main - [facility] [address], [address] 02/16/2022 16:22:48 02/17/20 22 02/16/2022 cmp, whole blood + picco lo Na+ 138 Not Available Main - [facility] [address], [address] 02/16/2022 16:22:48 02/17/20 22 02/16/2022 cmp, whole blood + picco lo tCO2 27 Not Available Main - [facility] [address], [address] 02/16/2022 16:22:48 Result Notes None recorded. Medical Equipment None Reported. Allergies Allergen ID Allergen Name Allergen Category Reaction Reaction Severity Criticality Documentation Date Start Date Code Code System Note Provider Name and Address Organization Details Recorded Time 81846 Motrin medicatio n Not available Not available Not available 09/18/202484986 8 RxNorm Not Available [facility] - production 4 15:17:42 46841 acetamino phen / oxycodone medicatio n Not available Not available Not available 09/18/2024 36036 3 RxNorm Not Available [facility] - production 4 15:17:42 81652 tramadol medicatio n Not available Not available Not available 09/18/2024 98094 RxNorm Not Available [employer] - production 4 15:17:42 Medications Name Sig [...] Available Not Available No t Available Ele aGleKianjeremiah U-300 Insulin 300 unit/mL (1.5 mL) subcutaneous [...] Not Available No t Available Dexcom G7 Hot Stone Setter USE DIRECTED active Not Available Not Available [...] Arterial blood by Pulse oximetry Body temperature Provider Name and Address Organization Details Last Updated DateTime 2 99 % 99 % 20 /min 98.9 [degF] 78 /min 152.4 cm 453.592 g 78 /min 154.94 cm 99 % 99 % 98.9 [degF] Not Available [employer] 2 14:54:34 Date Recorded Body weight Respiratory rate Systolic And Diastolic Systolic And Diastolic Provider Name and Address Organization Details Last Updated DateTime 02/16/2022 45920.24 g 20 /min 164/63 mm[Hg] 164/63 mm[Hg] Not Available [employer] 2 14:54:34 Date Recorded Body temperature Heart rate Respiratory rate Oxygen saturation Oxygen saturation in Arterial blood by Pulse oximetry Inhaled oxygen flow rate Systolic And Diastolic Provider Name and Address Organization Details Last Updated DateTime 3 97.8 [degF] 64 /min 20 /min 91 % 91 % 2 L/min 146/65 mm[Hg] Not Available [facility] - production 3 16:22:45 Date Recorded Heart rate Oxygen saturation Oxygen saturation in Arterial blood by Pulse oximetry Body temperature Respiratory rate Systolic And Diastolic Provider Name and Address Organization Details Last Updated DateTime 4 78 /min 93 % 93 % 97.1 [degF] 16 /min 137/76 mm[Hg] Not Available [employer] [facility] - production 4 20:04:27 Social History None [...] Code Diagnosis Note 1594 Hanane Mena MD [facility] - [address] [phone] 02/16/2022 14:13:00 05/29/2022 14:46:24 Acute low back pain 390154510 M54.50 Pt p/w 5 days of atraumatic [...] no improvemen t in pain consider imagingPer lens polisher hand, requestor asked for CBC w/ diff and CMP (not acknowledg ed in [facility] portal) but no orders placed. Reasonable to check CBC w/ diff and CMP thus orders placed. Ketonuria [id number] R82. 4 Pt with 2+ urinary ketones [...] and call PCP if FSG > 350. [id number] Damien Alfredo MD Main - [facility] [address] [place] [phone] 04/08/2023 16:22:43 04/08/2023 23:08:09 Hypoxia 570095602 R09.02 [id number] Wander Smith MD Main - [facility] [address] [place] [phone] 09/18/2024 20:04:23 09/18/2024 21:06:53 Acute exacerbation of chronic obstructive pulmonary disease 764608259 J44.1 Health Concerns Section Related Observation LastModified by Organization Detai ls LastModified Time None Recorded Concern Status LastModified by Organization Details LastModified Time None Recorded Advance Directives Directive None Recorded Payers Insurance Date Sequence Insurance Name Policy Number Policy Rendon Covered Member ID Rendon Member ID Guarantor Name 04/08/2023 1 [facility] - DOS PRIOR TO 2023 - DUAL ELIGIBLE (MEDICARE REPLACEMENT/AD VANTAGE - HMO) Katherine Griffith [id number] Katherine Griffith 09/18/2024 1 [facility] - DOS ON OR AFTER 2023 - DUAL ELIGIBLE - SNF OPTIONS AND ONE CARE (MEDICARE REPLACEMENT/AD VANTAGE - HMO) Katherine Griffith [id number] Katherine Griffith Notes Date Note Type Note [...] .................... .................... .................... .................... .................... .................... . Steel [employer] Note: Patient is a 76 year old [...] seen by urologist last month according to day care director, kidney function was good. Urine sample obtained and dipped; changes in PRO, SG and KET detected. Urine sent to [facility] for UA and Culture. Vital signs obtained and all within normal limits. Red flags discussed. Consulted with Dr. Mena. Patient is to follow up with PCP/care team regarding her signs, symptoms and todays visit. Dr. Mena recommended blood work. Steel Heater Sara Davis was dispatched for procedure. See lens polisher hand Sara Davis run report for further patient [...] h Hanane Mena MD [address] [facility],[address], [place], [phone], [employer] 02/16/2022 16:24:46 04/08/2023 text/html CRC Nursing Assessment: [...] name/- Damien Alfredo MD [address] [facility],[address], [place], [address], [employer] 04/08/2023 16:28:34 09/18/2024 text/html CRC Nurse Triage [...] s/s and seek emergency treatment if needed. 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
== END 2025-04-09 08:49 | disposition home or self-care (01) ==
LOC: HO.LNP 08:48
PROVIDERS: Visit Provider Nurse Practitioner Family
DX: R10.9 Unspecified abdominal pain (principal)
CPT/HCPCS: 82656

== ENCOUNTER 2025-05-21 09:16 | Outpatient (AMB) | payer OTHER, SELFPAY ==
--- NOTE | 2025-05-21 08:50 | A.OFFPC_ITS ---
Vital Signs 05/21/25 09:22 Height 4 ft 9 in Weight 180 lb BMI 38.9 BP 130/54 L Blood Pressure Location Lt brachial Position Sitting Pulse 62 Pulse Source Pulse Oximeter Pulse Oximetry (%) 96 Oxygen Delivery Method Room Air Intake Visit Reasons: annual Dry Chain Puller Required: No Accompanied by: Self / Same As Patient Allergies ibuprofen (From Motrin) Allergy (Intermediate, Verified 05/21/25 09:37) High Blood Pressure, Rash oxycodone (From Percocet) Allergy (Intermediate, Verified 05/21/25 09:37) Itching tirzepatide (From Mounjaro) Adverse Reaction (Severe, Verified 05/21/25 09:37) Diarrhea Medication List - Last Reconciled 05/21/25 by Shelby Golden MD acetaminophen ER 1,300 mg (2 x 650 mg) PO Q8H PRN 30 days albuterol sulfate 90 mcg/actuation 2 inhalations inhalation Q6H PRN 30 days amlodipine 10 mg PO DAILY aspirin 81 mg PO BEDTIME 90 days atorvastatin 80 mg PO BEDTIME 90 days blood pressure monitor As directed blood sugar diagnostic (FreeStyle Lite Strips) Use daily As directed to check blood glucose blood sugar diagnostic (FreeStyle Lite Strips) 3times a day blood-glucose meter (FreeStyle [place] Lite kit) As directed blood-glucose meter (FreeStyle Lite Meter kit) Use daily As directed to check blood sugars blood-glucose sensor (FreeStyle [place] 3 Sensor device) Apply every 14 days As directed to monitor blood glucose blood-glucose sensor (Dexcom G7 Sensor device) Use daily As directed to monitor blood glucose. Change q 10 days blood-glucose,photogrammetry airplane pilot,cont (Dexcom G7 Casino Controller) use daily As directed to monitor blood glucose calcium acetate(phosphat bind) 667 mg PO BID 90 days cane As directed cholecalciferol (vitamin D3) (Vitamin D3) 50 mcg PO QAM clopidogrel 75 mg PO DAILY [Diabetic shoes with inserts As directed] disposable gloves As directed esomeprazole magnesium (Nexium) 40 mg PO DAILY ferrous sulfate 325 mg PO .once a week 90 days fluticasone propionate 50 mcg/actuation 1 spray intranasal DAILY PRN 30 days jiihmqseqcc-cjrtqjfmo-szxxgcrq 200-62.5-25 mcg (Trelegy Ellipta) 1 inh inhalation DAILY 30 days folic acid 1 mg PO QAM 90 days FreeStyle Lancets (lancets) 3 times a day NS gabapentin 300 mg PO BEDTIME 90 days glucagon 3 mg/actuation (Baqsimi) mg intranasal hydralazine 25 mg PO TID 90 days hydrocortisone 1% (Anti-Itch (hydrocortisone)) 1 appl topical BID PRN 4 weeks [incomtinemce liner pads As directed] insulin glargine U-300 conc (Toujeo SoloStar U-300 Insulin) 24 units (0.08 mL) subcut DAILY 90 days ipratropium-albuterol 0.5 mg-3 mg(2.5 mg base)/3 mL 3 mL inhalation RQ4H WHILE AWAKE ketoconazole 2% 1 appl topical 2XW 30 days lancets (TRUEplus Lancets) As directed test 4 times a day lancets (FreeStyle Lancets) use daily as directed to check blood glucose losartan 25 mg PO DAILY 90 days meclizine (Travel-Ease (meclizine)) 12.5 mg (1/2 x 25 mg) PO BID PRN methylcellulose (laxative) (Citrucel) 500 mg PO DAILY montelukast 10 mg PO QPM 90 days Novolog FlexPen U-100 Insulin (insulin aspart U-100) 4 units (0.04 mL) subcut TID NS Oxygen Home Use As directed pen needle, diabetic (BD Isa 2nd Gen Pen Needle) 5 times a day semaglutide (Ozempic) 2 mg (0.75 mL) subcut QWEEK simethicone (Gas Relief (simethicone)) 250 mg (2 x 125 mg) PO BID PRN 90 days sucralfate 1 g PO BID PRN torsemide 20 mg PO BID [wipes As directed] Tobacco use date assessed: 05/21/25 Fall risk assessment: No Falls in past year Last assessed Fall Risk: 05/21/25 Dental Screening Dental Screen Date: 05/21/25 Did you have a dental visit in the last 12 months?: Yes Did you have a dental problem in the last 6 months where you did not have access to dental care?: No Was dental information given to patient?: Patient has dentist HPI HPI Comments History of Present Illness Details The patient is an 80-year-old female presenting for a wellness visit and management of chronic conditions. She has congestive heart failure, chronic kidney disease, diabetes mellitus type 2 on long-term current use of insulin, COPD and mild major depression. The patient has a history of hyperparathyroidism, which is currently being managed by an life scientist. Her blood pressure is generally well-controlled with amlodipine, but recent measurements showed a diastolic pressure of 54 mmHg, which is considered low. She has a documented allergy to ibuprofen, which causes a rash and increases her blood pressure. Additionally, she experiences adverse reactions to oxycodone and Mounjaro, the latter causing diarrhea. The patient has a history of diabetes mellitus, with her last HbA1c recorded at 8.3%. She has been prescribed insulin and Ozempic for management, and recent weight loss was noted from 189 pounds to 180 pounds. Her surgical history includes aortic valve replacement, tubal ligation, cholecystectomy, and removal of a breast mass. 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 Aortic stenosis CKD (chronic kidney disease) stage 3, GFR 30-59 ml/min Dyslipidemia Diabetic polyneuropathy associated with type 2 diabetes mellitus Diabetic nephropathy associated with type 2 diabetes mellitus Chronic kidney disease Hypertension Asthma Thalamic pain syndrome GERD (gastroesophageal reflux disease) Morbid obesity Surgical History H/O colonoscopy H/O aortic valve replacement History of breast lump/mass excision History of tubal ligation History of cholecystectomy Family History Sister History of renal pelvis cancer Father Suicide Mother Lung disease Diabetes mellitus Social History Household Members: Family Housing: House Do you presently have visiting nurse or other home services: Yes (wellhead pumper) Alcohol intake: never Comment: pt stays with pt. Patient Tobacco Use Status: Former Tobacco user Tobacco use type: Cigarette Years Smoked: 5 years e-Cigarette/Vaping Use: Never Used Second Hand Smoke Exposure: No service: No Current occupational status: unemployed and disabled Gender identity: Female Cognitive needs: Yes Hearing needs: No Vision needs: No Female Reproductive History Menstrual Age of Menarche: 10 Questionnaire Thrive Questionnaire Date Thrive assessed: 05/21/25 JES-7 AMB Questionnaire JES-7 Date JES - 7 assessed: 05/21/25 Source: Developed by Drs. Farhad Murdock, Caron Elkins, El Esqueda and colleagues, with an educational susanne from [employer]. Review of Systems Const All systems reviewed & are unremarkable except as noted in HPI and below Card Denies chest pain at rest, Denies chest pain with activity, Denies edema, Denies irregular heart rhythm, Denies claudication, Denies dyspnea, Denies dyspnea on exertion, Denies orthopnea, Denies paroxysmal nocturnal dyspnea and Denies slow heart rate Resp Denies cough, Denies dyspnea and Denies dyspnea on exertion GI Denies abdominal pain, Denies change in bowel habits, Denies excessive flatus, Denies nausea and Denies vomiting Physical exam (Primary Care) Vital Signs: Last Vital Signs Pulse 62 05/21/25 09:22 BP 130/54 L 05/21/25 09:22 Pulse Ox 96 05/21/25 09:22 Oxygen Delivery Method Room Air 05/21/25 09:22 BMI result Body Mass Index 38.9 BMI Assessment/Plan discussion: High BMI High, discussed plan: lifestyle, weight reduction, dietary and physical activity Tobacco/Smoking Status: Tobacco use Status Tobacco use date assessed 05/21/25 05/21/25 09:29 Patient Tobacco Use Status Former Tobacco user 05/21/25 08:50 Tobacco use type Cigarette 05/21/25 08:50 e-Cigarette/Vaping Use Never Used 05/21/25 08:50 Thrive Assessment: Date of Thrive Assessment Date Thrive assessed 05/21/25 05/21/25 09:29 HENMT Head: Yes normal to inspection, Yes normocephalic and Yes atraumatic Ears: external ears normal Eyes General: appearance normal, both eyes and all related structures Eyelids: Yes eyelids normal Conjunctivae: conjunctivae normal Neck Neck: Yes normal visual inspection and Yes supple Resp Effort & Inspection: normal respiratory effort Auscultation: clear to auscultation bilaterally Cardio Jugular venous distension: no JVD Rate: regular rate Rhythm: regular rhythm Heart sounds: S1 normal heart sound present and S2 normal heart sound present GI Inspection: Yes normal to inspection Palpation (GI): Soft to palpation and nontender Auscultation: normal bowel sounds Skin General skin exam: no rashes or lesions noted Neuro General: no focal motor deficits Extrem General: Yes full ROM Psych Appearance: grossly normal Immunizations Tenivac (PF) 5 Lf unit-2 Lf unit/0.5 mL intramuscular syringe Performing Provider: Shelby Golden MD [place] [facility] Administered by: SEFERINO Llanes on 05/21/25 09:56 Dose Route Admin Location Dispensed Lot Number Expiration Date NDC [employer] Basis Trader 0.5 mL IM Right Deltoid 0.5 mL [id number] 01/02/27 76868-177-44 [employer]ARA [employer] Total Dispensed Waste 0.5 mL 0 % VIS Given Date VIS Provided VIS Publication Date 05/21/25 Single Vaccine 21 Eligibility Eligibility Date Funding Source Not [facility] Eligible 05/21/25 Private Coding Level of Care Code Est Pt Level 4 (73398) Est Pt Prev Care >65y(65407) Diagnoses Physical exam Z00.00 COPD (chronic obstructive pulmonary disease) J44.9 CKD stage 3b, GFR 30-44 ml/min N18.32 Hyperparathyroidism E21.3 Uncontrolled type 2 diabetes mellitus with chronic kidney disease, with long- term current use of insulin E11.22; E11.65; Z79.4 Chronic systolic congestive heart failure I50.22 Heart failure chronicity: chronic Heart failure type: systolic Mild major depression F32.0 Discomfort of right ear H92.01 Skin lesion L98.9 Time Spent (min) 36 Assessment & Plan Assessment & Plan (1) Physical exam: Code(s): Z00.00 - Encounter for general adult medical examination without abnormal findings Category: Medical (2) COPD (chronic obstructive pulmonary disease): Code(s): J44.9 - Chronic obstructive pulmonary disease, unspecified Category: Medical (3) CKD stage 3b, GFR 30-44 ml/min: Code(s): N18.32 - Chronic kidney disease, stage 3b Category: Medical (4) Hyperparathyroidism: Code(s): E21.3 - Hyperparathyroidism, unspecified Category: Medical (5) Uncontrolled type 2 diabetes mellitus with chronic kidney disease, with long-term current use of insulin: Code(s): E11.22 - Type 2 diabetes mellitus with diabetic chronic kidney disease; E11.65 - Type 2 diabetes mellitus with hyperglycemia; Z79.4 - nursing home (current) use of insulin Category: Medical (6) Congestive heart failure: Code(s): I50.9 - Heart failure, unspecified Category: Medical Qualifiers: Heart failure chronicity: chronic Heart failure type: systolic Qualified Code(s): I50.22 - Chronic systolic (congestive) heart failure (7) Mild major depression: Code(s): F32.0 - Major depressive disorder, single episode, mild Category: Medical (8) Discomfort of right ear: Code(s): H92.01 - Otalgia, right ear Category: Medical (9) Skin lesion: Code(s): L98.9 - Disorder of the skin and subcutaneous tissue, unspecified Category: Medical Plan The patient will continue to manage hyperparathyroidism under the care of her life scientist. Blood pressure management will be monitored, with adjustments to amlodipine as necessary due to the low diastolic reading. For diabetes management, the patient will continue with insulin and Ozempic, with a follow-up HbA1c test scheduled in four months to assess control. Preventative care measures include a bone density screening and routine laboratory tests to monitor her diabetes management. Patient was informed and verbally consented to the use of an ambient scribe for clinic note documentation during this visit. Orders: Orders Lipid Panel 4 Months E78.5 - Hyperlipidemia, unspecified Vitamin B12 and Folate 4 Months E53.8 - Deficiency of other specified B group vitamins Complete Blood Count Auto Diff 4 Months D64.9 - Anemia, unspecified Parathyroid Hormone Intact 4 Months E21.3 - Hyperparathyroidism, unspecified Calcium, Ionized 4 Months E21.3 - Hyperparathyroidism, unspecified Td Immunization Today Z23 - Encounter for immunization Microalbumin, Random (w Creat) 4 Months R80.9 - Proteinuria, unspecified Vitamin D 25-OH Total 4 Months E55.9 - Vitamin D deficiency, unspecified IRON PROFILE 4 Months D64.9 - Anemia, unspecified Comprehensive [place]. Panel Fast 4 Months E21.3 - Hyperparathyroidism, unspecified Phosphorus 4 Months E21.3 - Hyperparathyroidism, unspecified XR DEXA axial skeleton Today Z78.0 - Asymptomatic menopausal state Referrals Ear/Nose/Throat Referral H92.01 - Otalgia, right ear Dermatology Referral L98.9 - Disorder of the skin and subcutaneous tissue, unspecified Medications: Refilled blood-glucose,photogrammetry airplane pilot,cont (Dexcom G7 Casino Controller) use daily As directed to monitor blood glucose 1 ea 0RF E11.22 - Type 2 diabetes mellitus with diabetic chronic kidney disease, E11.65 - Type 2 diabetes mellitus with hyperglycemia, Z79.4 - nursing home (current) use of insulin blood-glucose sensor (Dexcom G7 Sensor device) Use daily As directed to monitor blood glucose. Change q 10 days 3 ea 11RF
[2025-05-21 09:22] VITALS: BP 130/54; PULSE 62; O2SAT 96; BMI 38.9
--- OUTSIDE RECORDS SUMMARY | 2025-05-21 09:46 | XMS_ITS | Encounter Summary ---
Author Organization [employer] Address [address] [place] [address] [address] [place] [address] Care Team Providers Care Regrinder Operator Name Role Phone Marycarmen Quijano MD Primary Care Provider Reason for Visit * Reason Comments Med Refill Encounter Details Date Type Department Care Team ([facility] Contact Info) Description 03/07/2023 Refill [facility] [address] [place], [place] [phone] Marycarmen Quijano MD [address] [place] [address] Social History Tobacco Use Types Packs/Day Years [...] Upcoming Encounters Date Type Department Care Team ([facility] Contact Info) Description 07/25/2025 10:00 AM EDT Office Visit [facility] [address] [place] [address] Radha, Johana [address] [place] [address] documented as of this encounter Visit Diagnoses Not on filedocumented in this encounter Care Teams Regrinder Operator Relationship Specialty Start Date End Date Marycarmen Quijano MD [address] [place] [address] PCP - General Family Medicine 03/02/23 06/20/23 documented as of this encounter
--- OUTSIDE RECORDS SUMMARY | 2025-05-21 09:46 | XMS_ITS | Clinical Summary ---
Author Organization [facility] Address [address] [address] Phone Care Team Providers Care Photograph Enlarger Name Role Phone Marycarmen Quijano MD Primary Care Provider [phone] Allergies Active Allergy Reactions Criticality Noted Date [...] day Active ergocalciferol (VITAMIN D-2) 1.25 MG (13138 UT) capsule Take 1 capsule by mouth [...] failure 01/28/2021 Atherosclerotic heart diseas e of [place] coronary artery without angina pectoris 01/28/2021 Chronic [...] arteriosclerosis 07/11/2012 Overview (12/07/2022): Cath 01/2010 at [facility] showed LCx 80% and ostial LAD 80% [...] Encounters Date Type Department Care Team Description 04/29/2025 Orders Only [facility] [address] [address] Alycia Rios ARNP Stage 3b chronic kidney disease (HCC); Persistent proteinuria; Renal osteodystrophy from Last 3 Months Immunizations Immunization Administration [...] Td 06/08/1997 Td, Unspecified 06/08/1997 Tdap 11/27/2013,11/27/2013 Tuberculin Skin Test; Unspec ified Formulation 01/29/2021 Zoster 07/15/2015,07/15/2015 Family History Medical History Relation [...] 09/11/2019 12:00 PM EST Plan of Treatment Health Maintenance Due Date Last Done Comments [...] A1C 8.5(H) <5 % [facility] [place] [facility] [place] Creatinine 1.35(H) 0.70 - 1.30 mg/dl PVNMA Potassium 4.5 3.5 - 5.1 mmol/L PVNMA Calcium 8.8 8.4 - 10.2 mg/dl PVNMA eGFR Non- 38(L) >60 ml/min PVNMA 09/18/2020 us Rtama Conversion LAB [id number] LICITED RESULTS Final Result PVNMA from Last 3 Months or Most Recently Relevant to Health Maintenance Insurance [facility] ([id number]) [facility] MCR ([id number]) [place] [id number] Care Teams Photograph Enlarger Relationship Specialty Start Date End Date Marycarmen Quijano MD [address] [place] [id number] PCP - General 10/14/20
--- OUTSIDE RECORDS SUMMARY | 2025-05-21 09:46 | XMS_ITS | Patient Health Record ---
Author Organization [facility] Address [address] [place] [address] Care Team Providers Care Shelving Supervisor Name Role Phone Jaime VORA, Shelby Primary Care Provider Unavail able Randy Leal Unavailable [phone] Allergies Allergen (clinical drug ingredient) Drug/Non Drug [...] Duration) Notes Start Date End Date Status Toujeo SoloStar 300 UNIT/ML as directed Subcutaneous Act wendie Aspirin 81 MG 1 tablet Orally Once a day Active Ammonium Lactate 12 % 1 application Exte rnally to affected areas of dry skin to feet except for between the toes Twice a day; Duration: 30 days Active Ozempic (2 MG/DOSE) 8 MG/3ML as directed Subcutaneous Act wendie Atorvastatin Calcium 80 MG 1 tablet Orally Once a day Active Mounjaro Active Extra Depth Orthopedic Shoes (1 Pair) with Customized Heat Molded Multidensity Innersoles (3 Pair) as directed Dx: NIDDM/Polyneuropathy (E11.42), Hammertoe Foot Deformity (M20.41,M20.42), Preulcerative Skin Lesion(s) (L85.1 Active NovoLOG 100 UNIT/ML as directed Injection Active amLODIPine Besylate Active Losartan Potassium 25 MG 1 tablet Orally Once a day Active Folic Acid Active Gabapentin 25 MG as directed Orally Active Calcium Active Iron Active Torsemide 20 MG as directed Orally Active Vitamin D3 25 MCG (1000 UT) 1 capsule Orally Once a day Active Immunizations Vaccine Route Administration Date Status Comme nts Influenza Unknown 07/04/2024 Administered Social History Tobacco Use: Social History Observation [...] Problem Acquired hammer toe of right foot ([id number] ) Other hammer toe(s) (acquired), right foot (M20.41) Active confirmed Problem Acquired hammer toe of left foot (8041190067014663 ) Other hammer toe(s) (acquired), left foot (M20.42) Active confirmed Problem Polyneuropathy due to type 2 diabetes mellitus (593329060) Type 2 diabetes mellitus with diabetic polyneuropathy (E11.42) Active confirmed Vital Signs Blood pressure diastolic 65 mm Hg 04/24/2025 Height 4 ft 9 in in 04/24/2025 Blood pressure systolic 128 mm Hg 04/24/2025 Weight 182 lbs 04/24/2025 BMI 39.38 kg/m2 04/24/2025 Procedures Procedure Date Ordered Date Performed Result Body Sit e 16662-[id number] NAIL, 6 OR MORE 06/16/2024 N/A 15247-VKRD SKIN LESIONS, 2 TO 4 06/16/2024 N/A 46171-MVBHCTK NAIL, 6 OR MORE 12/26/2024 N/A 34994-Bwquhoqj Plate 12/26/2024 N/A 41578-NBMF SKIN LESIONS, 2 TO 4 12/26/2024 N/A 50302-BKAUOZS NAIL, 6 OR MORE 04/24/2025 N/A 24350-GEEC SKIN LESIONS, 2 TO 4 04/24/2025 N/A Encounters Encounter Location Date Provider Diagnosis [address] [address] 06/16/2024 Randyalycia Leal Type 2 diabetes mellitus with diabetic polyneuropathy E11.42 and Tinea unguium B35.[address] [address] 12/26/2024 Randy Leal Type 2 diabetes mellitus with diabetic polyneuropathy E11.42 ; Tinea unguium B35.1 ; Other hammer toe(s) (acquired), right foot M20.41 ; Other hammer toe(s) (acquired), left foot M20.42 and Subungual hematoma of left foot, initial encounter S90.222A [address] [address] 04/24/2025 Randy Leal Type 2 diabetes mellitus with diabetic polyneuropathy E11.42 ; Tinea unguium B35.1 and Xerosis of skin L85.[address] [address] 09/19/2024 Randy Leal [address] [address] 12/26/2024 Randy Leal [address] [address] 03/27/2025 Randy Leal Assessments Encounter Date Diagnosis (ICD Code) Assessment Notes Treatment Notes Treatment Clinical Notes Section Notes 06/16/2024 Type 2 diabetes mellitus with diabetic polyneuropathy (ICD-10 - E11.42) 06/16/2024 Tinea unguium (ICD-10 - B35.1) 12/26/2024 Type 2 diabetes mellitus with diabetic polyneuropathy (ICD-10 - E11.42) 12/26/2024 Tinea unguium (ICD-10 - B35.1) 04/24/2025 Type 2 diabetes mellitus with diabetic polyneuropathy (ICD-10 - E11.42) 04/24/2025 Tinea unguium (ICD-10 - B35.1) 12/26/2024 Other hammer toe(s) (acquired), right foot (ICD-10 - M20.41) Patient Educated with: DIABETIC FOOT CARE INSTRUCTIONS. pdf (DIABETIC FOOT CARE INSTRUCTIONS. pdf) 12/26/2024 Other hammer toe(s) (acquired), left foot (ICD-10 - M20.42) 04/24/2025 Xerosis of skin (ICD-10 - L85.3) 12/26/2024 Subungual hematoma of left foot, initial encounter (ICD-10 - S90.222A) 04/24/2025 Other Plan Of Treatment Pending Test Test Name Order Date [id number] NAIL, 6 OR MORE 03/17/2024 00622-MRCSKLF NAIL, 6 OR MORE 06/16/2024 21735-ABPXYLT NAIL, 6 OR MORE 12/26/2024 76093-YZMGARX NAIL, 6 OR MORE 04/24/2025 06023-Mrqfqvvf Plate 12/26/2024 87972-YUOQ SKIN LESIONS, 2 TO 4 04/24/20 25 13992-YVAI SKIN LESIONS, 2 TO 4 12/27/19 26862-GUKE SKIN LESIONS, 2 TO 4 06/16/20 24 60579-LTJO SKIN LESIONS, 2 TO 4 03/17/20 24 Next Appt Details Provider Name:Randy Leal , 07/24/2025 02:00:00 PM, [address] [facility], [place], [address], Insurance Providers Payer Name Payer Address Payer Phone Subscriber Number Group Number Insured Name Patient Relationship to Insured Coverage Start Date Coverage End Date [facility] [employer] Claims [address] [facility] [place] [place] [id number] [phone] [id number] Katherine Jamil Self - patient is the insured Medical (General) History Medical History History ICD Code Anxiety Arthritis asthma Back,Hip,and Knee pain CAD (Cholesterol) Cataracts Depression Diabetic Heart disease High blood pressure Kidney disease Lung disease Numbness Poor circulation Reflux ( GERD) sinusitis Vascular phlebitis (clots) Chicken pox Replacement Heart Valves Transfusions Surgical History Surgery Date(Month/Year)
== END 2025-05-21 10:12 | disposition home or self-care (01) ==
LOC: HO.HMCH 09:17
PROVIDERS: PCP Internal Medicine; Visit Provider Internal Medicine
DX: Z00.00 Encounter for general adult medical examination without abnormal findings (principal); E11.22 Type 2 diabetes mellitus with diabetic chronic kidney disease; J44.9 Chronic obstructive pulmonary disease, unspecified; E11.65 Type 2 diabetes mellitus with hyperglycemia; N18.32 Chronic kidney disease, stage 3b; Z79.4 Long term (current) use of insulin; I50.22 Chronic systolic (congestive) heart failure; E21.3 Hyperparathyroidism, unspecified; F32.0 Major depressive disorder, single episode, mild; H92.01 Otalgia, right ear; L98.9 Disorder of the skin and subcutaneous tissue, unspecified; Z23 Encounter for immunization

== ENCOUNTER → 2025-05-21 09:16 | Outpatient (BNVA) | payer OTHER, SELFPAY | PROVIDERS: PCP Internal Medicine; Visit Provider Internal Medicine | DX: Z00.00 Encounter for general adult medical examination without abnormal findings (principal); E11.22 Type 2 diabetes mellitus with diabetic chronic kidney disease; E11.65 Type 2 diabetes mellitus with hyperglycemia; J44.9 Chronic obstructive pulmonary disease, unspecified; F32.9 Major depressive disorder, single episode, unspecified; E21.3 Hyperparathyroidism, unspecified; N18.32 Chronic kidney disease, stage 3b; I50.22 Chronic systolic (congestive) heart failure; F32.0 Major depressive disorder, single episode, mild; H92.01 Otalgia, right ear; L98.9 Disorder of the skin and subcutaneous tissue, unspecified; Z23 Encounter for immunization; Z79.4 Long term (current) use of insulin; Z95.2 Presence of prosthetic heart valve | CPT/HCPCS: 90471; 90714; 96127; 99212; 99397 ==

== ENCOUNTER 2025-05-28 09:12 | Outpatient (AMB) | payer OTHER, SELFPAY ==
[2025-05-28 09:18] VITALS: BP 140/42; PULSE 61; O2SAT 100; BMI 38.5
--- NOTE | 2025-05-28 09:18 | A.OFFVIS_ITS ---
Vital Signs 3 05/28/25 09:18 Height 4 ft 9 in Weight 177 lb 14.609 oz BMI 38.5 BP 140/42 H Blood Pressure Location Lt brachial Position Sitting Pulse 61 Pulse Source Pulse Oximeter Pulse Oximetry (%) 100 Oxygen Delivery Method Room Air Intake Visit Reasons: hyperparathyroidism Intake Note: Patient present today for hyperparathyroidism office visit. Wind Commissioning Technician Required: Yes Wind Commissioning Technician Language: Jai Alai Player Services: Wind Commissioning Technician Offered & Declined Accompanied by: GRADUATE INTERN Allergies ibuprofen (From Motrin) Allergy (Intermediate, Verified 05/28/25 09:22) High Blood Pressure, Rash oxycodone (From Percocet) Allergy (Intermediate, Verified 05/28/25 09:22) Itching tirzepatide (From Mounjaro) Adverse Reaction (Severe, Verified 05/28/25 09:22) Diarrhea Medication List - Last Reconciled 05/28/25 by Nafisa Mao MD acetaminophen ER 1,300 mg (2 x 650 mg) PO Q8H PRN 30 days albuterol sulfate 90 mcg/actuation 2 inhalations inhalation Q6H PRN 30 days amlodipine 10 mg PO DAILY aspirin 81 mg PO BEDTIME 90 days atorvastatin 80 mg PO BEDTIME 90 days blood pressure monitor As directed blood sugar diagnostic (FreeStyle Lite Strips) Use daily As directed to check blood glucose blood sugar diagnostic (FreeStyle Lite Strips) 3times a day blood-glucose meter (FreeStyle [place] Lite kit) As directed blood-glucose meter (FreeStyle Lite Meter kit) Use daily As directed to check blood sugars blood-glucose sensor (FreeStyle [place] 3 Sensor device) Apply every 14 days As directed to monitor blood glucose blood-glucose sensor (Dexcom G7 Sensor device) Use daily As directed to monitor blood glucose. Change q 10 days blood-glucose,bulk receiver,cont (Dexcom G7 Solid Waste Truck Driver) use daily As directed to monitor blood glucose calcium acetate(phosphat bind) 667 mg PO BID 90 days cane As directed cholecalciferol (vitamin D3) (Vitamin D3) 50 mcg PO QAM clopidogrel 75 mg PO DAILY [Diabetic shoes with inserts As directed] disposable gloves As directed esomeprazole magnesium (Nexium) 40 mg PO DAILY ferrous sulfate 325 mg PO .once a week 90 days fluticasone propionate 50 mcg/actuation 1 spray intranasal DAILY PRN 30 days mnatepgrdnc-mdjckkjpa-xceaoxkv 200-62.5-25 mcg (Trelegy Ellipta) 1 inh inhalation DAILY 30 days folic acid 1 mg PO QAM 90 days FreeStyle Lancets (lancets) 3 times a day NS gabapentin 300 mg PO BEDTIME 90 days glucagon 3 mg/actuation (Baqsimi) mg intranasal hydralazine 25 mg PO TID 90 days hydrocortisone 1% (Anti-Itch (hydrocortisone)) 1 appl topical BID PRN 4 weeks [incomtinemce liner pads As directed] insulin glargine U-300 conc (Toujeo SoloStar U-300 Insulin) 24 units (0.08 mL) subcut DAILY 90 days ipratropium-albuterol 0.5 mg-3 mg(2.5 mg base)/3 mL 3 mL inhalation RQ4H WHILE AWAKE ketoconazole 2% 1 appl topical 2XW 30 days lancets (TRUEplus Lancets) As directed test 4 times a day lancets (FreeStyle Lancets) use daily as directed to check blood glucose losartan 25 mg PO DAILY 90 days meclizine (Travel-Ease (meclizine)) 12.5 mg (1/2 x 25 mg) PO BID PRN methylcellulose (laxative) (Citrucel) 500 mg PO DAILY montelukast 10 mg PO QPM 90 days Novolog FlexPen U-100 Insulin (insulin aspart U-100) 4 units (0.04 mL) subcut TID NS Oxygen Home Use As directed pen needle, diabetic (BD Sia 2nd Gen Pen Needle) 5 times a day semaglutide (Ozempic) 2 mg (0.75 mL) subcut QWEEK simethicone (Gas Relief (simethicone)) 250 mg (2 x 125 mg) PO BID PRN 90 days sucralfate 1 g PO BID PRN torsemide 20 mg PO BID [wipes As directed] HPI Comments Details: 79-year-old female here today for follow up of elevated PTH level. Here today with daughter who is doing the interpretation. HPI Lives with daughter. Dependent for ADLs and IADLs. Has history of type 2 DM, follows at our office with YASMIN Marques for this , not addressed today. Chart review shows PTH level noted to be at 101.2 from 11/14/2024, vitamin-D level low at 24.9, calcium level normal at 9.2, albumin of 3.3, corrected calcium would be 9.8. Patient has CKD stage 3, EGFR 46. Normal phosphorus and magnesium. She has had some high normal calcium levels in the past over 2023 of 10.4. Does have history of kidney stones (also seen on US kidney 02/24, non obstructing) She has CKD stage 3 , follows with nephro , in the setting of longstanding DM and HTN DEXA February 2023, showed osteopenia of left femoral neck with T score - 1.9, normal lumbar spine bone density , FRAX does not meet criteria for trx , no recent fractures On vitamin D 1000 units daily on calcium acetate 600 mg BID for phosphate binder one glass of milk everyday , cheese often , yogurt sometimes no hctz use No family history of kidney stones or calcium problems 01/31/2025 showed normal kidney function, calcium of 9.4 with albumin of 3.4, corrected calcium would be around 10, high ionized calcium of 5.3, vitamin-D still slightly low at 28, PTH elevated at 100. Interval history Continues on vitamin D 2000 units daily, 05/03/2025 labs done at [facility] ionized calcium 5.5 mg/dL which is just at the upper limit of normal, PTH 70 pg/mL, creatinine 1.32, EGFR 32, calcium 9.5, albumin 3.7, corrected calcium be 9.8, vitamin-D 75 Physical exam General: sitting comfortably in no acute distress HEENT: normocephalic/atraumatic, Neck: supple, symmetrical Cardiac: normal heart sounds Pulm: normal breath sounds B/L, no added breath sounds Abd: not distended, no tenderness Extremities: no edema Laboratory Tests 12/01/21 12/01/21 10/09/22 14:47 14:52 09:22 Creatinine Estimated GFR Calcium 9.3 Phosphorus 3.9 Ionized Calcium Magnesium 25-OH Vitamin D Total PTH Intact 80 H Ur Random Calcium Urine Creatinine 10/10/22 10/11/22 12/07/22 13:16 05:47 15:44 Creatinine Estimated GFR 42 39 Calcium 9.3 9.5 8.9 D Phosphorus 4.5 Ionized Calcium Magnesium 25-OH Vitamin D Total 35.8 PTH Intact 109 H Ur Random Calcium Urine Creatinine 02/03/23 02/03/23 02/03/23 09:43 09:43 09:43 Creatinine Estimated GFR 31 Calcium 9.0 9.1 Phosphorus Ionized Calcium Magnesium 25-OH Vitamin D Total 41.4 45.1 PTH Intact Ur Random Calcium Urine Creatinine 02/03/23 04/16/23 04/17/23 09:43 13:23 06:04 Creatinine Estimated GFR 32 29 28 Calcium 10.3 H D 9.7 Phosphorus 4.4 Ionized Calcium Magnesium 25-OH Vitamin D Total PTH Intact 82 H Ur Random Calcium Urine Creatinine 05/05/23 05/24/23 06/02/23 10:40 20:17 08:58 Creatinine Estimated GFR 39 36 38 Calcium 9.7 9.5 9.4 Phosphorus Ionized Calcium Magnesium 25-OH Vitamin D Total 30.1 PTH Intact Ur Random Calcium Urine Creatinine 10/13/23 12/26/23 01/25/24 08:43 16:16 13:22 Creatinine 1.48 H 1.46 H 1.51 H Estimated GFR 34 35 33 Calcium 9.4 9.7 9.8 Phosphorus Ionized Calcium Magnesium 2.4 25-OH Vitamin D Total < 3.5 L 28.1 L PTH Intact Ur Random Calcium Urine Creatinine 02/21/24 03/24/24 05/08/24 14:26 11:42 08:48 Creatinine 1.68 H 1.40 1.39 Estimated GFR 29 36 37 Calcium 10.4 H D 9.9 9.2 D Phosphorus 3.3 Ionized Calcium Magnesium 2.2 25-OH Vitamin D Total 30.8 L PTH Intact 91.9 H 121.6 H Ur Random Calcium Urine Creatinine 07/19/24 09/05/24 11/14/24 18:11 08:39 07:27 Creatinine 1.63 H 1.54 H Estimated GFR 30 32 Calcium 9.8 D Phosphorus Ionized Calcium Magnesium 2.3 25-OH Vitamin D Total PTH Intact Ur Random Calcium 1.7 Urine Creatinine 50.58 11/14/24 11/14/24 11/14/24 07:49 07:49 07:49 Creatinine 1.15 1.18 Estimated GFR 44 Calcium 9.2 D 9.4 Phosphorus Ionized Calcium Magnesium 25-OH Vitamin D Total 24.9 L PTH Intact Ur Random Calcium Urine Creatinine 11/14/24 11/14/24 07:49 11:54 Creatinine Estimated GFR 46 Calcium Phosphorus 3.5 Ionized Calcium 5.4 Magnesium 2.2 25-OH Vitamin D Total PTH Intact 101.2 H Ur Random Calcium Urine Creatinine Laboratory Tests 07/19/24 11/14/24 11/14/24 18:11 07:49 07:49 Albumin 3.6 3.3 L 3.3 L Laboratory Tests 01/31/25 10:50 Creatinine 1.25 Estimated GFR 41 Calcium 9.4 Ionized Calcium 5.3 Albumin 3.4 L 25-OH Vitamin D Total 28.0 L PTH Intact 100.0 H BONE DENSITOMETRY 02/26/23 CLINICAL INDICATION: Unspecified menopausal and perimenopausal disorder. COMPARISON: Previous BD dated 04/23/2020 and baseline BD dated 10/21/2007. TECHNIQUE: Using a [employer] DXA System (software version: 13.1) manufactured by [employer], dual-energy x-ray absorptiometry was performed of the lumbar spine and left hip. The images are of good technical quality. Summary results are attached. FINDINGS: AP SPINE L1-L4: Current: BMD 1.188 g/cm2, Z-score 0.9, T-score 0.1, normal, 3.8% increase from previous, 18.0% increase from baseline (<5% change is not significant). Prior: BMD 1.144 g/cm2. Baseline: BMD 1.007 g/cm2. LEFT FEMUR, NECK: Current: BMD 0.771 g/cm2, Z-score -0.5, T-score -1.9, osteopenia. Prior: BMD 0.933 g/cm2. Baseline: BMD 0.989 g/cm2. LEFT FEMUR, TOTAL: Current: BMD 0.901 g/cm2, Z-score 0.4, T-score -0.8, normal, 18.7% decrease from previous, 26.7% decrease from baseline (<5% change is not significant). Prior: BMD 1.108 g/cm2. Baseline: BMD 1.229 g/cm2. IDENTIFIED RISK FACTORS: Anticonvulsant, menopause, renal. HISTORY OF FRACTURE: None listed. MEDICATIONS: Vitamin D. US RETROPERITONEAL COMPLETE (RENAL) 02/29/24 CLINICAL INFORMATION: Urge incontinence. COMPARISON: MR abdomen 01/07/2023, CT abdomen and pelvis 07/01/2022. TECHNIQUE: Real-time imaging of the kidneys and bladder. FINDINGS: RIGHT KIDNEY: 10.9 x 3.9 x 5.0 cm (SAG x AP x TRV). The kidney is normal in size, contour, and echogenicity. Renal cortical thickness is normal. There is a lower pole 6 mm echogenic focus seen consistent with a nonobstructing calculus. No hydronephrosis. A benign 2.4 cm lower pole Bosniak class I renal cyst is noted along with multiple other smaller cysts. These require no additional imaging or follow up. No solid renal masses are seen. LEFT KIDNEY: 11.1 x 4.4 x 4.8 cm (SAG x AP x TRV). The kidney is normal in size, contour, and echogenicity. Renal cortical thickness is normal. Single punctate 3 mm nonobstructing calculus seen at the lower pole. No other calculi or focal parenchymal lesions. No hydronephrosis. BLADDER: Well distended and normal. Bilateral ureteral jets are not demonstrated. Prevoid bladder volume is 427 mL. Postvoid bladder volume is 34 mL. US/US retroperitoneal comp IMPRESSION: 1. Bilateral nonobstructing renal calculi. 2. Benign Bosniak class I right renal cysts need no further imaging or follow up. 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 Aortic stenosis CKD (chronic kidney disease) stage 3, GFR 30-59 ml/min Dyslipidemia Diabetic polyneuropathy associated with type 2 diabetes mellitus Diabetic nephropathy associated with type 2 diabetes mellitus Chronic kidney disease Hypertension Asthma Thalamic pain syndrome GERD (gastroesophageal reflux disease) Morbid obesity Surgical History H/O colonoscopy H/O aortic valve replacement History of breast lump/mass excision History of tubal ligation History of cholecystectomy Family History Sister History of renal pelvis cancer Father Suicide Mother Lung disease Diabetes mellitus Social History Household Members: Family Housing: House Do you presently have visiting nurse or other home services: Yes (precision lens technician) Alcohol intake: never Comment: pt stays with pt. Patient Tobacco Use Status: Former Tobacco user Tobacco use type: Cigarette Years Smoked: 5 years e-Cigarette/Vaping Use: Never Used Second Hand Smoke Exposure: No service: No Current occupational status: unemployed and disabled Gender identity: Female Cognitive needs: Yes Hearing needs: No Vision needs: No Female Reproductive History Menstrual Age of Menarche: 10 Physical Exam Vital Signs: Last Vital Signs Pulse 61 05/28/25 09:18 BP 140/42 H 05/28/25 09:18 Pulse Ox 100 05/28/25 09:18 Oxygen Delivery Method Room Air 05/28/25 09:18 BMI result Body Mass Index 38.5 Assessment & Plan Assessment & Plan (1) Hyperparathyroidism: Code(s): E21.3 - Hyperparathyroidism, unspecified Category: Medical Plan: 79-year-old female here today for initial evaluation of elevated PTH level. Chart review shows PTH level noted to be at 101.2 from 11/14/2024, vitamin-D level low at 24.9, calcium level normal at 9.2, albumin of 3.3, corrected calcium would be 9.8. Patient has CKD stage 3, EGFR 46. Normal phosphorus and magnesium. She has had some high normal calcium levels in the past over 2023 of 10.4. Possibly could have PTH elevation in the setting of vitamin-D deficiency, per patient's daughter she has been regularly taking the 1000 units of vitamin-D daily now, we will repeat vitamin-D and calcium levels as well as a concurrent PTH level. She also has CKD stage 3, some degree of PTH elevation could be from secondary hyperparathyroidism in the setting of kidney disease. On 1000 units of vitamin-D 01/31/2025 showed normal kidney function, calcium of 9.4 with albumin of 3.4, corrected calcium would be around 10, high ionized calcium of 5.3, vitamin-D still slightly low at 28, PTH elevated at 100. We will increase vitamin-D to 2000 units daily last visit,Continues on vitamin D 2000 units daily, 05/03/2025 labs done at [facility] ionized calcium 5.5 mg/dL which is just at the upper limit of normal, PTH 70 pg/mL, creatinine 1.32, EGFR 32, calcium 9.5, albumin 3.7, corrected calcium be 9.8, vitamin-D 75 Now with a optimize vitamin-D levels PTH levels have improved and normalized. We should expect some PTH elevation in the setting of CKD. However no need for follow up for this anymore. She does have osteopenia of the left femoral neck, FRAX does not qualify her for treatment. Primary care can repeat bone density every 2 years. Plan: -reduce vitamin-D 2000 units daily -no need for further follow up for parathyroid concerns -primary care to repeat bone density every 2 years Plan See above Medications: New 2 cholecalciferol (vitamin D3) 25 mcg PO DAILY 90 caps 3RF 3 months Discontinued 2 cholecalciferol (vitamin D3) (Vitamin D3) Discontinued Reason: Doctor's Order 50 mcg PO QAM 90 caps 0RF Coding Level of Care Code Est Pt Level 3 (79401) Diagnoses Hyperparathyroidism E21.3
--- OUTSIDE RECORDS SUMMARY | 2025-05-28 09:54 | XMS_ITS | Clinical Summary ---
Author Organization [facility] Address [address] [address] Phone Care Team Providers Care Antique Furniture Repairer Name Role Phone Marycarmen Quijano MD Primary Care Provider [phone] Allergies Active Allergy Reactions Criticality Noted Date [...] day Active ergocalciferol (VITAMIN D-2) 1.25 MG (74281 UT) capsule Take 1 capsule by mouth [...] 01/28/2021 Atherosclerotic heart diseas e of [place] coronary artery without angina pectoris 01/28/2021 Chronic [...] 07/11/2012 Overview (12/07/2022): Cath 01/2010 at [facility] showed LCx 80% and ostial [...] Only [facility] [address] [address] Alycia Rios ARNP Stage 3b [...] A1C 8.5(H) <5 % PVNMA Comments From [facility] PVNMA Creatinine 1.35(H) 0.70 - 1.30 mg/dl PVNMA Potassium 4.5 3.5 - 5.1 mmol/L PVNMA Calcium 8.8 8.4 - 10.2 mg/dl PVNMA eGFR Non- 38(L) >60 ml/min PVNMA 09/18/2020 us Rtama Conversion LAB [id number] LICITED RESULTS Final Result PVNMA from Last 3 Months or Most Recently Relevant to Health Maintenance Insurance [facility] ([id number]) [facility] MCR ([id number]) YASMIN FRANCO [phone] Care Teams Antique Furniture Repairer Relationship Specialty Start Date End Date Marycarmen Quijano MD [address] [place] [id number] PCP - General 10/14/20
== END 2025-05-28 09:43 | disposition home or self-care (01) ==
LOC: HO.ENCR 09:12
PROVIDERS: PCP Internal Medicine; Visit Provider Student in an Organized Health Care Education/Training Program
DX: E21.3 Hyperparathyroidism, unspecified (principal)
CPT/HCPCS: 99213

== ENCOUNTER → 2025-05-28 09:12 | Outpatient (BNVA) | payer OTHER, SELFPAY | PROVIDERS: PCP Internal Medicine; Visit Provider Student in an Organized Health Care Education/Training Program | DX: E21.3 Hyperparathyroidism, unspecified (principal); E55.9 Vitamin D deficiency, unspecified | CPT/HCPCS: 99212 ==

== ENCOUNTER 2025-05-29 14:06 | Outpatient (REF) | payer OTHER, SELFPAY ==
--- OUTSIDE RECORDS SUMMARY | 2025-03-27 05:30 | XMS_ITS ---
Author Organization [facility] Address [address] [place] [address] Care Team Providers Care Dietitian Teaching Name Role Phone Jaime VORA, Shelby Primary Care Provider Unavail Randy Marshall Unavailable [phone] Encounters Encounter Location Date Provider Diagnosis [address] [address] 03/27/2025 Randy Leal Plan Of Treatment Next Appt Details Provider Name:Randy Leal , 07/24/2025 02:00:00 PM, [address] [place], [address], Progress Notes * MICAELAKatherine BashirDOB: 5 (80 yo F)Acc No.[id number]:03/27/2025 Progress Note Patient: Katherine FARMER Provider: Adelina Leal DPM :1945 A ge:79 Y S ex:Female Date:03/27/2025 Address:[address] [place], [place] [phone] Pcp:Shelby Sandoval MD Subjective: * Chief Complaints: [...] 03/27/2025 Generated for Herber olea/Rolando/Nickoitting on: 0 05/29/2025 03:05 PM EDT
--- OUTSIDE RECORDS SUMMARY | 2025-05-29 13:20 | XMS_ITS | Encounter Summary ---
Author Organization [facility] Address [address] [place] [address] [address] [place] [address] Care Team Providers Care Technical Specialist Name Role Phone Unavailable Primary Care Provider Unavailabl e Reason for Visit * Reason Comments Abdominal Pain Encounter Details Date Type Department Care Team ([facility] st Contact Info) Description 05/29/2025 1:20 PM EDT Office Visit [facility] [address] [place] [id number] Christianne John MD [address] [place] [address] Diarrhea, unspecified type (Primary Dx) Social History Tobacco Use Types [...] Sign Reading Time Taken Comments Blood Pressure 144/82 05/29/2025 1:31 PM EDT Pulse 98 05/29/2025 1:31 PM EDT Temperature 37.2 C (98.9 F) 05/29/2025 1:31 PM EDT Respiratory Rate 17 05/29/2025 1:31 PM EDT Oxygen Saturation 98% 05/29/2025 1:31 PM EDT Inhaled Oxygen Concentration - - Weight 80.4 kg (177 lb 3.2 oz) 05/29/2025 1:31 P M EDT Height - - Body Mass Index 36.45 08/12/2022 11:32 AM EST documented in this encounter Progress Notes * Christianne John MD - 05/29/2025 1:20 PM EDT Subjective Patient ID: Louis Bean is a 80 y.o. adult with type 2 diabetes, ckd, ischemic heart disease and respiratory failure with hypoxia who presents to walk in clinic for Abdominal Pain and diarrhea. Ms Griffith reports she woke early 48 hours ago with diarrhea. Had uneventful Wednesday at religion, did not eat anything out of the ordinary, no sick contacts and then around 2 or 3 am she woke with watery diarrhea. She at a small amount yesterday and had diarrhea immediately after. Today she took small amount and also had diarrhea. She is holing her insulin and has abdominal pain on the left side that radiates from the back to her mid left abdomen. Hx cholecystectomy. No RLQ pain. No pelvic pain.No lightheadedness. Review of Systems Constitutional: Negative for fever and unexpected weight change. Gastrointestinal: Positive for abdominal pain and diarrhea. Negative for abdominal distention, blood in stool, nausea, rectal pain and vomiting. Neurological: Negative for light-headedness. Objective Visit Vitals BP (!) 184/76 (BP Location: Left arm, Patient Position: Sitting, BP Cuff Size: Adult) Pulse 98 Temp 98.9 ??F (37.2 ??C) (Oral) Resp 17 Body mass index is 36.45 kg/m??. Physical Exam Constitutional: Appearance: Normal appearance. Cardiovascular: Rate and Rhythm: Normal rate and regular rhythm. Heart sounds: Normal heart sounds. Pulmonary: Effort: Pulmonary effort is normal. Breath sounds: Normal breath sounds. Abdominal: General: Abdomen is flat. Bowel sounds are normal. There is no distension. Palpations: Abdomen is soft. There is no mass. Tenderness: There is abdominal tenderness. There is no right CVA tenderness, left CVA tenderness, guarding or rebound. Comments: Mild left side abdominal tenderness with deep palpation. Some discomfort getting on to exam table. Ok with walking. Musculoskeletal: Cervical back: Normal range of motion and neck supple. Lymphadenopathy: Cervical: No cervical adenopathy. Skin: General: Skin is warm and dry. Neurological: Mental Status: Mental status is at baseline. Psychiatric: Behavior: Behavior normal. Assessment & Plan Diarrhea, unspecified type -likely viral gastroenteritis -will check labs given diabetes and medical fraility -agree with hold insulin when not eating and we can see stat labs now. -no evidence of dehydration on exam -no evidence of acute abdomen -supportive care with fluids -ER precautions discussed including feer, increased abdominal pain or unable to tolerate po fluids.She and her agree with the plan. Orders: POCT Influenza A manually resulted POCT Influenza B manually resulted POCT Rapid COVID Ag CBC auto differential; Future Basic Metabolic Panel; Future C-reactive Protein; Future Future Appointments Date Time Provider Department Center 07/25/2025 10:00 AM Johana Garcia [facility] documented in this encounter Plan of Treatment Upcoming Encounters Date Type Department Care Team (Late st Contact Info) Description 07/25/2025 10:00 AM EDT Office Visit [facility] [address] [place] [address] Radha Johana [address] [place] [address] Scheduled Orders Name Type Priority Associated Diagnoses Orde r Schedule CBC auto differential Lab STAT Diarrhea, unspecified type Expected: 05/29/2025 (Approximate), Expires: 05/29/2026 Basic Metabolic Panel Lab STAT Diarrhea, unspecified type Expected: 05/29/2025 (Approximate), Expires: 05/29/2026 C-reactive Protein Lab STAT Diarrhea, unspecified type Expected: 05/29/2025 (Approximate), Expires: 05/29/2026 documented as of this encounter Procedures Procedure Name Priority Date/Time Associated Diagnosis Comments POCT INFLUENZA B Routine 05/29/2025 2:04 PM EDT Diarrhea, unspecified type POCT INFLUENZA A Routine 05/29/2025 2:04 PM EDT Diarrhea, unspecified type POCT RAPID COVID ANTIGEN Routine 05/29/2025 2:03 PM EDT Diarrhea, unspecified type documented in this encounter Results * POCT Influenza B manually resulted (05/29/2025 2:04 PM EDT) [facility] Rapid Influenza B Ag Negative Negative, Indeterminate QC Media Lot # [id number] Lot# Expiration Date [id number] Swab 05/29/2025 2:04 PM EDT us Christianne John MD POINT OF CARE TEST ENTER/E DIT ORDERABLES Final Result * POCT Influenza A manually resulted (05/29/2025 2:04 PM EDT) [facility] Rapid Influenza A Ag Negative Negative, Indeterminate QC Media Lot # [id number] Lot# Expiration Date 100,826 Swab Nasopharyngeal structure / Unknown 05/29/2025 2:04 PM EDT us Christianne John MD POINT OF CARE TEST ENTER/E DIT ORDERABLES Final Result * POCT Rapid COVID Ag (05/29/2025 2:03 PM EDT) [facility] Rapid COVID Ag Negative QC Media Lot # [id number] Lot# Expiration Date [id number] Swab 05/29/2025 2:03 PM EDT us Christianne John MD POINT OF CARE TEST ENTER/E DIT ORDERABLES Final Result documented in this encounter Visit Diagnoses Diagnosis Diarrhea, unspecified type- Primary documented in this encounter
--- OUTSIDE RECORDS SUMMARY | 2025-05-29 15:05 | XMS_ITS | Encounter Summary ---
Author Organization [employer] Address [address] [facility] 7t [place] [address] Care Team Providers Care Auto Haulaway Driver Name Role Phone Marycarmen Quijano MD Primary Care Provider [phone] Reason for Visit * Reason Comments Med Refill Encounter Details Date Type Department Care Team ([facility] Contact Info) Description 04/12/2023 Refill [facility] [address] [place] [address] Jose Johnson MD [address] [place] [address] Social History Tobacco Use Types Packs/Day Years [...] Upcoming Encounters Date Type Department Care Team ([facility] Contact Info) Description 07/25/2025 10:00 AM EDT Office Visit [facility] ADULT [facility] [address] [place] [address] RadhaJohana [address] [place] [address] documented as of this encounter Visit Diagnoses Not on filedocumented in this encounter Care Teams Auto Haulaway Driver Relationship Specialty Start Date End Date Marycarmen Quijano MD [address] [place] [address] PCP - General Family Medicine 03/02/23 06/20/23 documented as of this encounter
--- OUTSIDE RECORDS SUMMARY | 2025-05-29 15:05 | XMS_ITS | Encounter Summary ---
Author Organization [facility] Address [address] [place] [address] [address]t [place] [address] Care Team Providers Care Dx Board Operator Name Role Phone Marycarmen Quijano MD Primary Care Provider [phone] Reason for Visit * Reason Comments Med Refill Encounter Details Date Type Department Care Team ([facility] Contact Info) Description 04/15/2023 Refill [facility] [address] [place] [address] Marycarmen Quijano MD [address] [place] [address] Social History Tobacco Use Types Packs/Day Years [...] Encounters Date Type Department Care Team ([facility] Contact Info) Description 07/25/2025 10:00 AM EDT Office Visit [facility] ADULT DENT[facility] [address] [place] [address] RadhaJohana [address] [place] [address] documented as of this encounter Visit Diagnoses Not on filedocumented in this encounter Care Teams Dx Board Operator Relationship Specialty Start Date End Date Marycarmen Quijano MD [address] [place] [address] PCP - General Family Medicine 03/02/23 06/20/23 documented as of this encounter
--- OUTSIDE RECORDS SUMMARY | 2025-05-29 15:05 | XMS_ITS | Encounter Summary ---
Author Organization [employer] [facility] Address [address] [place] [address] 7t [place] [address] Care Team Providers Care Product Control And Logistics Analyst Name Role Phone Marycarmen Quijano MD Primary Care Provider [phone] Reason for Visit * Reason Comments Med Refill Encounter Details Date Type Department Care Team ([facility] Contact Info) Description 02/06/2023 Refill [facility] [address] [place] [address] Marycarmen Quijano MD [address] [place] [address] Social History Tobacco Use Types Packs/Day Years [...] Care Team ([facility] Contact Info) Description 07/25/2025 10:00 AM EDT Office Visit [facility] ADULT DENTAL [address] [place] [address] RadhaJoahna [address] [place] [address] documented as of this encounter Visit Diagnoses Not on filedocumented in this encounter Care Teams Product Control And Logistics Analyst Relationship Specialty Start Date End Date Marycarmen Quijano MD [address] [place] [address] PCP - General Family Medicine 03/02/23 06/20/23 documented as of this encounter
--- OUTSIDE RECORDS SUMMARY | 2025-05-29 15:05 | XMS_ITS | Encounter Summary ---
Author Organization [employer] [facility] Address [address] [place] [address] 7t [place] [address] Care Team Providers Care Car Sealer Name Role Phone Marycarmen Quijano MD Primary Care Provider [phone] Reason for Visit * Reason Comments Med Refill Encounter Details Date Type Department Care Team ([facility] Contact Info) Description 04/04/2023 Refill [facility] [address] [place] [address] Marycarmen Quijano MD [address] [place] [address] Social History Tobacco Use Types Packs/Day Years [...] Upcoming Encounters Date Type Department Care Team ([facility] Contact Info) Description 07/25/2025 10:00 AM EDT Office Visit [facility] ADULT D[facility] [address] [place] [address] RadhaJohana [address] [place] [address] documented as of this encounter Visit Diagnoses Not on filedocumented in this encounter Care Teams Car Sealer Relationship Specialty Start Date End Date Marycarmen Quijano MD [address] [place] [address] PCP - General Family Medicine 03/02/23 06/20/23 documented as of this encounter
--- OUTSIDE RECORDS SUMMARY | 2025-05-29 15:05 | XMS_ITS | Clinical Summary ---
Author Organization [employer] Address [address] [place] [address] 7t [place] [address] Care Team Providers Care Enterprise Records Analyst Name Role Phone Unavailable Primary Care Provider [...] BEDTIME 2 Active Blood Glucose Monitoring Suppl (99 FahrenheitStyle [place] Lite) w/Device kit TEST BLOOD SUGAR THREE [...] by mouth at bed time. Active Creon 44664-11477 units capsule 3 Active pantoprazole (ProtoNix) 40 [...] 3 Active ergocalciferol (Vitamin D2) 1.25 MG (15462 UT) capsule TAKE 1 CAPSULE BY MOUTH [...] Encounters Date Type Department Care Team Description 05/29/2025 1:20 PM EDT Office Visit [facility] [address] [place] [address] Christianne John MD Diarrhea, unspecified type (Primary Dx) 05/29/2025 Travel 02/27/2025 10:00 AM EDT Office Visit [facility] ADULT DENTAL [address] [place] [address] Moy Caldwell DDS Partial edentulism, unspecified edentulism [...] oz) 05/29/2025 1:31 P M EDT Height 148.5 cm (4' 10.46 ) 08/12/2022 11:32 AM EST Body Mass Index 36.45 08/12/2022 11:32 AM EST Plan of Treatment Upcoming Encounters Date Type Department Care Team (Late st Contact Info) Description 07/25/2025 10:00 AM EDT Office Visit [facility] ADULT DENTAL [address] [place] [address] Johana Garcia [address] [place] [address] Health Maintenance Due Date Last Done Comments Depression Screening 1945 SDOH Screening 1945 Diabetes: Foot Exam 1955 Eye Exam 1955 Alcohol/Substance Use Screening 1957 Zoster Vaccines (2 of 3) 09/09/2015 07/15/2015 RSV Patients and Patients Aged 60 years or older (1 - 1-dose 75+ series) 2020 Lipid Panel 09/18/2021 09/18/2020, 04/09/2020 Diabetes: Hemoglobin A1C 10/09/2022 022, 12/01/2021, 12/01/2021, Additional history exists COVID-19 Vaccine ( season) 2024 Dental Oral Exam 12/18/2024 06/19/2024, 12/02/2022 Influenza Vaccine (#1) 2025 , 07/20/2022, 07/20/2022, Additional history exists Dental X-Ray: Bitewings 06/20/2025 06/19/2024 Dental Prophylaxis 07/15/2025 01/12/2025, 1 , 12/02/2022 Tobacco Screening 05/29/2026 05/29/2025 Dental X-Ray: Full Mouth 06/20/2027 06/19/2024, 04/03 DTaP/Tdap/Td Vaccines (3 - Td or Tdap) 05/21/2035 05/21/2025, 11/27/2013, 06/08/1997, Additional history exists Hepatitis B Vaccines Completed 04/08/2017, 06/03/2016, 04/03/2014 [...] 05/29/2025 2:03 PM EDT Diarrhea, unspecified type CASE PRESENTATION, DETAILED AND EXTENSIVE TREATMENT PLANNING Routine 02/27/2025 10:00 AM EDT 29,30,31,18,19,20 MANDIBULAR PARTIAL DENTURE - RESIN BASE (INCLUDING, RETENTIVE/CLASPING MATERIALS, RESTS, AND TEETH) Routine 02/27/2025 10:00 AM EDT 5,6,7,8,9,10,11,12 MAXILLARY PARTIAL DENTURE - RESIN BASE (INCLUDING, RETENTIVE/CLASPING MATERIALS, RESTS, AND TEETH) Routine 02/27/2025 10:00 AM EDT PROPHYLAXIS - ADULT Routine 01/12/2025 9 :00 AM EDT Dental plaque INTRAORAL - COMPLETE SERIES OF RADIOGRAPHIC IMAGES Routine 06/19/2024 10:00 AM EDT PERIODIC ORAL EVALUATION - ESTABLISHED PATIENT Routine 06/19/2024 10:00 AM EDT ZZZ HISTORICAL HEMOGLOBIN A1C Routine 07/09/2022 10:40 AM EDT ZZZ HISTORICAL LIPID PANEL Routine 09/18/2020 1:18 PM EST from Last 3 Months or Most Recently Relevant to Health Maintenance Results * POCT Influenza B manually resulted (05/29/2025 2:04 PM EDT) [facility] Rapid Influenza B Ag Negative Negative, Indeterminate QC Media Lot # [id number] Lot# Expiration Date 100,826 Swab 05/29/2025 2:04 PM EDT Christianne John MD POINT OF CARE TEST ENTER/E DIT ORDERABLES Final Result * POCT Influenza A manually resulted (05/29/2025 2:04 PM EDT) [facility] Rapid Influenza A Ag Negative Negative, Indeterminate QC Media Lot # [id number] Lot# Expiration Date 100,826 Swab Nasopharyngeal structure / Unknown 05/29/2025 2:04 PM EDT Christianne John MD POINT OF CARE TEST ENTER/E DIT ORDERABLES Final Result * POCT Rapid COVID Ag (05/29/2025 2:03 PM EDT) [facility] Rapid COVID Ag Negative QC Media Lot # [id number] Lot# Expiration Date 102,826 Swab 05/29/2025 2:03 PM EDT Christianne John MD POINT OF CARE TEST ENTER/E DIT ORDERABLES Final Result * HEMOGLOBIN A1C (07/09/2022 10:40 AM EDT) [facility] Estimated Average Glucose 151 mg/dL [facility] Comment: eAG = Estimated average glucose which is %A1C expressed as average glucose, using the formula of the J2A-Ophdvps Average Glucose study (ADAG), Diabetes Care, Vol.31,#8, 2007 Hemoglobin A1c % 6.9 % [facility] Comment: Hemoglobin A1C Reference Range Adults: 4.8 - 6.0 % Non diabetic: < 6.0 % Goal: < 7.0 % Additional Action Suggested: > 8.0 % Note: Hemoglobin A1c results are invalid for patients with abnormal amounts of HbF. Blood transfusions may impact the HbA1c concentration in the patient sample. 07/09/2022 10:4 0 AM EDT us Historical Provider HISTORICAL/NON ORDERABLE LABS Final Result [facility] * (ABNORMAL) LIPID PANEL (09/18/2020 1:18 PM EST) Cholesterol 157 mg/dL [facility] Comment: Desirable Cholesterol: less than 200 mg/dL Borderline High Cholesterol: 200-239 mg/dL High Cholesterol: greater than 239 mg/dL HDL Cholesterol 51 mg/dL [facility] Comment: Desirable HDL: greater than 40 mg/dL Note: This HDL assay may give artificially low results in patients with liver disease. LDL Cholesterol Calculated 90 mg/dl [facility] Comment: Desirable LDL: less than 100 mg/dL Near Optimal/Above Optimal LDL: 110-129 mg/dL Borderline High LDL: 130-159 mg/dL High LDL: 160-189 mg/dL Very High LDL: greater than or equal to 190 mg/dL Triglycerides 81 mg/dL [facility] Comment: Desirable Triglyceride: less than 150 mg/dL Borderline High Triglyceride 150-199 mg/dL High Triglyceride: 200-499 mg/dL Very High Triglyceride: greater than or equal to 5OO mg/dL Alanine Aminotransferase 14 0 - [...] Rate 38 [facility] Comment: NOTE: For -Malaysian individuals, multiply the result by 1.210. Chronic Kidney Disease: Estimated GFR < 60 mL/min/1.73m2 Severe Kidney Disease: Estimated GFR < 15 mL/min/1.73m2 Glucose Fasting 146(H) [...] Historical Provider HISTORICAL/NON ORDERABLE LABS Final Result [facility] [address] [place] [address], from Last 3 Months or Most Recently Relevant to Health Maintenance Insurance [facility] [employer]ION [employer] (O D-SNP) DENTAL [facility]
--- OUTSIDE RECORDS SUMMARY | 2025-05-29 15:05 | XMS_ITS | Encounter Summary ---
Author Organization [employer] [facility] Address [address] [place] [address] [address] [place] [address] Care Team Providers Care Visual Merchandising Associate Name Role Phone Unavailable Primary Care Provider Unavailabl e Reason for Visit * Reason Comments Med Refill Encounter Details Date Type Department Care Team (Late st Contact Info) Description 12/02/2023 Refill [facility] [address] [place] [address] Christianne John MD [address] [place] [address] Moderate persistent asthma, unspecified whether complicated Social [...] Description 07/25/2025 10:00 AM EDT Office Visit [facility] ADULT DENTAL [address] [place] [address] Radha, Johana [address] [place] [address] documented as of this encounter Visit Diagnoses Diagnosis Moderate persistent asthma, unspecified whether complicated documented in this encounter
--- OUTSIDE RECORDS SUMMARY | 2025-05-29 15:05 | XMS_ITS | Encounter Summary ---
Author Organization [employer] Address [address] [place] [address] [address]t [place] [address] Care Team Providers Care Soaker Soda Worker Name Role Phone Marycarmen Quijano MD Primary Care Provider [phone] Reason for Visit * Reason Comments Med Refill Encounter Details Date Type Department Care Team ([facility] Contact Info) Description 03/03/2023 Refill [facility] [address] [place], [place] [phone] Marycarmen Quijano MD [address] [place] [address] Primary hypertension Social History Tobacco Use Types [...] ([facility] Contact Info) Description 07/25/2025 10:00 AM EDT Office Visit [facility] ADULT DENTAL [address] [place] [address] RadhaJohana [address] [place] [address] documented as of this encounter Visit Diagnoses Diagnosis Primary hypertension Unspecified essential hypertension documented in this encounter Care Teams Soaker Soda Worker Relationship Specialty Start Date End Date Marycarmen Quijano MD [address] [place] [address] PCP - General Family Medicine 03/02/23 06/20/23 documented as of this encounter
--- OUTSIDE RECORDS SUMMARY | 2025-05-29 15:05 | XMS_ITS | Encounter Summary ---
Author Organization [facility] [facility] Address [address] [place] [address] [address]t [place] [address] Care Team Providers Care Car Coupler Name Role Phone Marycarmen Quijano MD Primary Care Provider [phone] Reason for Visit * Reason Comments Med Refill Encounter Details Date Type Department Care Team ([facility] Contact Info) Description 04/15/2023 Refill [facility] [address] [place] [address] Marycarmen Quijano MD [address] [place] [address] Social History Tobacco Use Types Packs/Day Years [...] Department Care Team ([facility] Contact Info) Description 07/25/2025 10:00 AM EDT Office Visit [facility] ADULT DENT[facility] [address] [place] [address] RadhaJohana [address] [place] [address] documented as of this encounter Visit Diagnoses Not on filedocumented in this encounter Care Teams Car Coupler Relationship Specialty Start Date End Date Marycarmen Quijano MD [address] [place] [address] PCP - General Family Medicine 03/02/23 06/20/23 documented as of this encounter
--- OUTSIDE RECORDS SUMMARY | 2025-05-29 15:05 | XMS_ITS | Clinical Summary ---
Author Organization [facility] 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 [address] [address] Alycia Rios ARNP Stage 3b [...] 8.5(H) <5 % PVNMA Comments From [facility]NMA Creatinine 1.35(H) 0.70 - 1.30 mg/dl PVNMA Potassium 4.5 3.5 - 5.1 mmol/L PVNMA Calcium 8.8 8.4 - 10.2 mg/dl PVNMA eGFR Non- 38(L) >60 ml/min PVNMA 09/18/2020 us [facility]version [facility] [id number] LICITED RESULTS Final Result PVNMA from Last 3 Months or Most Recently Relevant to Health Maintenance Insurance [facility] ([id number]) [facility] MCR ([id number]) YASMIN FRANCO [id number] Care Teams Winery Worker Relationship Specialty Start Date End Date Marycarmen Quijano MD [address] [place] [address] PCP - General 10/14/20
--- OUTSIDE RECORDS SUMMARY | 2025-05-29 15:05 | XMS_ITS | Encounter Summary ---
Author Organization [employer] [facility] Address [address] [place] [address] 7t [place] [address] Care Team Providers Care Residential Carpet Installer Name Role Phone Marycarmen Quijano MD Primary Care Provider [phone] Marycarmen Quijano MD Primary Care Provider [phone] Encounter Details Date Type Department Care Team (Latest Contact Info) Description 06/16/2021 Abstract [facility] CONVERSIONS Dental, Provider, DDS Social History Tobacco [...] Description 07/25/2025 10:00 AM EDT Office Visit [facility] ADULT DENTAL [address] [place] [address] Radha, Johana [address] [place] [address] documented as of this encounter Visit Diagnoses Not on filedocumented in this encounter Care Teams Residential Carpet Installer Relationship Specialty Start Date End Date Marycarmen Quijano MD [address] [place] [address] PCP - General Family Medicine 07/26/13 02/01/23 Marycarmen Quijano MD [address] [place] [address] PCP - General Family Medicine 03/02/23 06/20/23 documented as of this encounter
--- OUTSIDE RECORDS SUMMARY | 2025-05-29 15:05 | XMS_ITS | Encounter Summary ---
Author Organization [employer] [facility] Address [address] [place] [address] 7t [place] [address] Care Team Providers Care Vision Rehabilitation Therapist Name Role Phone Unavailable Primary Care Provider Unavailabl e Reason for Visit * Reason Comments Med Refill Encounter Details Date Type Department Care Team (Late st Contact Info) Description 01/19/2024 Refill [facility] MEDICINE [address] [place] [address] Christianne John MD [address] [place] [address] Vitamin deficiency Social History Tobacco Use Types [...] 10:00 AM EDT Office Visit [facility] ADULT DENTAL [address] [place] [address] Santos Garciaaris [address] [place] [address] documented as of this encounter Visit Diagnoses Diagnosis Vitamin deficiency Unspecified vitamin deficiency documented in this encounter
--- OUTSIDE RECORDS SUMMARY | 2025-05-29 15:05 | XMS_ITS | Encounter Summary ---
Author Organization [employer] [facility] Address [address] [place] [address] 7t [place] [address] Care Team Providers Care Louver Door Assembler Name Role Phone Unavailable Primary Care Provider Unavailabl e Reason for Visit * Reason Comments Med Refill Encounter Details Date Type Department Care Team (Late st Contact Info) Description 11/29/2023 Refill [facility] MEDICINE [address] [place] [address] Christianne John MD [address] [place] [address] Moderate persistent asthma, unspecified whether complicated Social [...] 07/25/2025 10:00 AM EDT Office Visit [facility] ADULT DENTAL [address] [place] [address] Radha, Johana [address] [place] [address] documented as of this encounter Visit Diagnoses Diagnosis Moderate persistent asthma, unspecified whether complicated documented in this encounter
--- OUTSIDE RECORDS SUMMARY | 2025-05-29 15:05 | XMS_ITS | Encounter Summary ---
Author Organization [employer] [facility] Address [address] [place] [address] 7t [place] [address] Care Team Providers Care Piece Dyer Name Role Phone Unavailable Primary Care Provider Unavailabl e Reason for Visit * Reason Comments Med Refill Encounter Details Date Type Department Care Team (Late st Contact Info) Description 12/01/2023 Refill [facility] MEDICINE [address] [place] [address] Christianne John MD [address] [place] [address] Moderate persistent asthma, unspecified whether complicated Social [...] Description 07/25/2025 10:00 AM EDT Office Visit [facility] ADULT DENTAL [address] [place] [address] Radha, Johana [address] [place] [address] documented as of this encounter Visit Diagnoses Diagnosis Moderate persistent asthma, unspecified whether complicated documented in this encounter
--- OUTSIDE RECORDS SUMMARY | 2025-05-29 15:05 | XMS_ITS | Encounter Summary ---
Author Organization [employer] Address [address] [place] [address] 7t [place] [address] Care Team Providers Care Form Layer Name Role Phone Unavailable Primary Care Provider Unavailabl e Encounter Details Date Type Department Care Team (Latest Contact Info) Description 05/29/2025 Travel Social History Tobacco Use Types Packs/Day Years [...] Description 07/25/2025 10:00 AM EDT Office Visit [facility] ADULT DENTAL [address] [place] [address] Radha, Johana [address] [place] [address] documented as of this encounter Visit Diagnoses Not on filedocumented in this encounter
--- OUTSIDE RECORDS SUMMARY | 2025-05-29 15:05 | XMS_ITS | Encounter Summary ---
Author Organization [employer] [facility] Address [address] [place] [address] 7 [place] [address] Care Team Providers Care Judicial Assistant Name Role Phone Marycarmen Quijano MD Primary Care Provider [phone] Marycarmen Quijano MD Primary Care Provider [phone] Reason for Visit * Reason Comments Med Refill Encounter Details Date Type Department Care Team (Late st Contact Info) Description 11/10/2022 Refill [facility] MEDICINE [address] [place], [place] [phone] Marycarmen Quijano MD [address] [place], [place] [phone] Social History Tobacco Use Types Packs/Day Years [...] Description 07/25/2025 10:00 AM EDT Office Visit [facility] ADULT DENTAL [address] [place], [place] [phone] Radha, Johana [address] [place] [address] documented as of this encounter Visit Diagnoses Not on filedocumented in this encounter Care Teams Judicial Assistant Relationship Specialty Start Date End Date Marycarmen Quijano MD [address] [place] [address] PCP - General Family Medicine 07/26/13 02/01/23 Marycarmen Quijano MD [address] [place] [address] PCP - General Family Medicine 03/02/23 06/20/23 documented as of this encounter
--- OUTSIDE RECORDS SUMMARY | 2025-05-29 15:05 | XMS_ITS | Encounter Summary ---
Author Organization [employer] Address [address] [place] [address] 7t [place] [address] Care Team Providers Care Automotive Wholesale Parts Advisor Name Role Phone Marycarmen Quijano MD Primary Care Provider [phone] Reason for Visit * Reason Comments Med Refill Encounter Details Date Type Department Care Team ([facility] Contact Info) Description 03/07/2023 Refill [facility] MED & PEDS [address] [place], [place] [phone] Marycarmen Quijano MD [address] [place] [address] Social History Tobacco Use Types Packs/Day Years [...] Encounters Date Type Department Care Team ([facility] Contact Info) Description 07/25/2025 10:00 AM EDT Office Visit [facility] ADULT DENTAL [address] [place] [address] Radha, Johana [address] [place] [address] documented as of this encounter Visit Diagnoses Not on filedocumented in this encounter Care Teams Automotive Wholesale Parts Advisor Relationship Specialty Start Date End Date Marycarmen Quijano MD [address] [place] [address] PCP - General Family Medicine 03/02/23 06/20/23 documented as of this encounter
--- OUTSIDE RECORDS SUMMARY | 2025-05-29 15:05 | XMS_ITS | Patient Health Record ---
Author Organization [facility] Address [address] [place] [address] Care Team Providers Care Risk Mgr Name Role Phone Jaime VORA, Shelby Primary Care Provider Unavail able Randy Leal Unavailable [phone] Allergies Allergen (clinical drug ingredient) Drug/Non Drug [...] Problem Acquired hammer toe of right foot (881806231039 9105) Other hammer toe(s) (acquired), right foot (M20.41) Active confirmed Problem Acquired hammer toe of left foot (070035305902 9103) Other hammer toe(s) (acquired), left foot (M20.42) Active confirmed Problem Type 2 diabetes mellitus with diabetic polyneuropathy (E11.42) Active confirmed Vital Signs Blood pressure diastolic 65 mm Hg 04/24/2025 Height 4 ft 9 in in 04/24/2025 Blood pressure systolic 128 mm Hg 04/24/2025 Weight 182 lbs 04/24/2025 BMI 39.38 kg/m2 04/24/2025 Procedures Procedure Date Ordered Date Performed Result Body Sit e 30981-AENOFNS NAIL, 6 OR MORE 06/16/2024 N/A 43133-CJJQ SKIN LESIONS, 2 TO 4 06/16/2024 N/A 46116-QNBOOZY NAIL, 6 OR MORE 12/26/2024 N/A 09261-Kxwptesj Plate 12/26/2024 N/A 25042-IVQU SKIN LESIONS, 2 TO 4 12/26/2024 N/A 05611-YZWKSRQ NAIL, 6 OR MORE 04/24/2025 N/A 44610-MLIE SKIN LESIONS, 2 TO 4 04/24/2025 N/A Encounters Encounter Location Date Provider Diagnosis [facility] [place] [address] [place] [address] 06/16/2024 Randy Leal Type 2 diabetes mellitus with diabetic polyneuropathy E11.42 and Tinea unguium B35.[address] [address] 12/26/2024 Randy Leal Type 2 diabetes mellitus with diabetic polyneuropathy E11.42 ; Tinea unguium B35.1 ; Other hammer toe(s) (acquired), right foot M20.41 ; Other hammer toe(s) (acquired), left foot M20.42 and Subungual hematoma of left foot, initial encounter S90.222A [address] [address] 04/24/2025 Randy Leal Type 2 diabetes mellitus with diabetic polyneuropathy E11.42 ; Tinea unguium B35.1 and Xerosis of skin L85.[address] [address] 09/19/2024 Randy eLal [address] [address] 12/26/2024 [facility] Mel [address] [address] 03/27/2025 Randy Leal Assessments Encounter Date Diagnosis [...] Treatment Pending Test Test Name Order Date 43469-WPEHOWC NAIL, 6 OR MORE 03/17/2024 81899-DCRSQIS NAIL, 6 OR MORE 06/16/2024 04172-VABBHEL NAIL, 6 OR MORE 12/26/2024 73037-YKCBRNV NAIL, 6 OR MORE 04/24/2025 27415-Htfiykdh Plate 12/26/2024 89150-XXTZ SKIN LESIONS, 2 TO 4 04/24/20 82513-TUSW SKIN LESIONS, 2 TO 4 12/27/19 10310-PAKR SKIN LESIONS, 2 TO 4 06/16/20 78856-WRRL SKIN LESIONS, 2 TO 4 03/17/20 Next Appt Details Provider Name:Randy Leal , 07/24/2025 02:00:00 PM, [address] [facility], [place], [address], Insurance Providers Payer Name Payer Address Payer Phone Subscriber Number Group Number Insured Name Patient Relationship to Insured Coverage Start Date Coverage End Date [facility] [employer] Claims [address] [facility] YASMIN Barkley [phone] [id number] Katherine Jamil Self - patient is the insured Medical (General) History Medical History History ICD Code Anxiety Arthritis asthma Back,Hip,and Knee pain CAD (Cholesterol) Cataracts Depression Diabetic Heart disease High blood pressure Kidney disease Lung disease Numbness Poor circulation Reflux ( GERD) sinusitis Vascular phlebitis (clots) Chicken pox Replacement Heart Valves Transfusions Surgical History Surgery Date(Month/Year)
--- OUTSIDE RECORDS SUMMARY | 2025-05-29 15:05 | XMS_ITS | Encounter Summary ---
Author Organization [employer] [facility] Address [address] [place] [address] 7t [place] [address] Care Team Providers Care Fence Maker Name Role Phone Marycarmen Quijano MD Primary Care Provider Reason for Visit * Reason Comments Med Refill Encounter Details Date Type Department Care Team ([facility] Contact Info) Description 03/10/2023 Refill [facility] CHC MED & PEDS [address] [place], [place] [phone] Marycarmen Quijano MD [address] [place] [address] Primary hypertension Social History Tobacco Use Types [...] Upcoming Encounters Date Type Department Care Team ([facility] Contact Info) Description 07/25/2025 10:00 AM EDT Office Visit [facility] ADULT DENTAL [address] [place] [address] Santos Garciaaris [address] [place] [address] documented as of this encounter Visit Diagnoses Diagnosis Primary hypertension Unspecified essential hypertension documented in this encounter Care Teams Fence Maker Relationship Specialty Start Date End Date Marycarmen Quijano MD [address] [place] [address] PCP - General Family Medicine 03/02/23 06/20/23 documented as of this encounter
--- OUTSIDE RECORDS SUMMARY | 2025-05-29 15:06 | XMS_ITS | Encounter Summary ---
Author Organization [employer] [facility] Address [address] [place] [address] 7t [place] [address] Care Team Providers Care Seo Executive Name Role Phone Unavailable Primary Care Provider Unavailabl e Reason for Visit * Reason Comments Med Refill Encounter Details Date Type Department Care Team (Late st Contact Info) Description 11/24/2023 Refill [facility] MEDICINE [address] [place] [address] Christianne John MD [address] [place] [address] Moderate persistent asthma, unspecified whether complicated Social [...] 10:00 AM EDT Office Visit [facility] ADULT DENTAL [address] [place] [address] Radha, Johana [address] [place] [address] documented as of this encounter Visit Diagnoses Diagnosis Moderate persistent asthma, unspecified whether complicated documented in this encounter
[2025-05-29 16:15] LABS: MANUAL DIFF FLAG NO
[2025-05-29 16:24] LABS: Hematocrit 38.9 % (37.0-47.0); Hemoglobin 12.4 g/dl (12.0-16.0); Imm Gran Abs Auto 0.06 X10*3/uL (0.00-0.03); Imm Gran Pct Auto 0.4 % (0.0-0.4); Lymphocytes Absolute Auto 2.3 X10*3/uL (1.2-4.9); Mean Corpuscular HGB Conc 31.9 g/dl (31.0-35.0); Mean Corpuscular Hemoglobin 24.9 pg (27.0-33.0); Mean Corpuscular Volume 78.1 fL (80.0-98.0); NRBC Abs Auto 0.000 X10*3/uL (0.0-0.012); NRBC Pct Auto 0.0 /100WBC (0.0-0.2); Platelet Count 417 X10*3/uL (160-400); Red Blood Count 4.98 X10*6/uL (4.20-5.50); White Blood Count 14.5 X10*3/uL (4.8-10.8)
[2025-05-29 16:54] LABS: Anion Gap 14 (12-20); Blood Urea Nitrogen 20 mg/dL (9-16); Calcium 9.8 mg/dL (8.4-10.2); Carbon Dioxide 24 mmol/L (22-29); Chloride 107 mmol/L (96-108); Estimated Glomerular Filt Rate 33; Potassium 4.3 mmol/L (3.3-5.1); Sodium 141 mmol/L (135-145)
[2025-05-29 16:55] LABS: Anion Gap 14 (12-20); Blood Urea Nitrogen 20 mg/dL (9-16); Calcium 9.8 mg/dL (8.4-10.2); Carbon Dioxide 24 mmol/L (22-29); Chloride 107 mmol/L (96-108); Estimated Glomerular Filt Rate 32; Potassium 4.2 mmol/L (3.3-5.1); Sodium 141 mmol/L (135-145)
== END 2025-05-29 14:07 | disposition home or self-care (01) ==
LOC: HO.HHCL 14:06
PROVIDERS: Internal Medicine Hypertension Specialist; PCP Student in an Organized Health Care Education/Training Program; Visit Provider Family Medicine
DX: N18.32 Chronic kidney disease, stage 3b (principal); R19.7 Diarrhea, unspecified
CPT/HCPCS: 36415; 80048; 85025; 86140

== ENCOUNTER 2025-06-01 09:35 | Outpatient (AMB) | payer OTHER, SELFPAY ==
--- OUTSIDE RECORDS SUMMARY | 2024-09-19 06:00 | XMS_ITS ---
Author Organization [facility] Address [address] [place] [address] Care Team Providers Care Security Trainer Name Role Phone Jaime VORA, Shelby Primary Care Provider Unavail Randy Marshall Unavailable [phone] Encounters Encounter Location Date Provider Diagnosis [address] [address] 09/19/2024 Randy Leal Plan Of Treatment Next Appt Details Provider Name:Randy Leal , 07/24/2025 02:00:00 PM, [address] [place], [address], Progress Notes * MICAELAKatherine BashirDOB: 5 (80 yo F)Acc No.[id number]:09/19/2024 Progress Note Patient: Katherine FARMER Provider: Adelina Leal DPM :1945 A ge:79 Y S ex:Female Date:09/19/2024 Address:[address] [place], [place] [phone] Pcp:Shelby Sandoval MD Subjective: * Chief Complaints: [...] 11/20/2023 Generated for Herber olea/Rolando/Brendasmitting on: 0 06/01/2025 10:23 AM EDT
--- OUTSIDE RECORDS SUMMARY | 2025-03-27 05:30 | XMS_ITS ---
Author Organization [facility] Address [address] [place] [address] Care Team Providers Care Production Team Leader Name Role Phone Jaime VORA, Shelby Primary Care Provider Unavail Randy Marshall Unavailable [phone] Encounters Encounter Location Date Provider Diagnosis [address] [address] 03/27/2025 Randy Leal Plan Of Treatment Next Appt Details Provider Name:Randy Leal , 07/24/2025 02:00:00 PM, [address] [place], [address], Progress Notes * MICAELAKatherine BashirDOB: 5 (80 yo F)Acc No.[id number]:03/27/2025 Progress Note Patient: Katherine FARMER Provider: Adelina Leal DPM :1945 A ge:79 Y S ex:Female Date:03/27/2025 Address:[address] [place], [place] [phone] Pcp:Shelby Sandoval MD Subjective: * Chief Complaints: [...] 03/27/2025 Generated for Herber olea/Rolando/Nickoitting on: 0 06/01/2025 10:23 AM EDT
--- OUTSIDE RECORDS SUMMARY | 2025-05-29 13:20 | XMS_ITS | Encounter Summary ---
Author Organization [employer] Address [address] [place] [address] 7t [place] [address] Care Team Providers Care Glassware Selector Name Role Phone Unavailable Primary Care Provider Unavailabl e Reason for Visit * Reason Comments Abdominal Pain Encounter Details Date Type Department Care Team ([facility] st Contact Info) Description 05/29/2025 1:20 PM EDT Office Visit [facility] [address] [place] [address] Christianne John MD [address] [place] [address] Diarrhea, unspecified type (Primary Dx) Social History [...] ago with diarrhea. Had uneventful Wednesday at [employer], did not eat anything out of the [...] for light-headedness. Objective Visit Vitals BP (!) 144/82 (BP Location: Left arm, Patient Position: Sitting, [...] is at baseline. Psychiatric: Behavior: Behavior normal. Orders Only on 05/29/2025 Component Date Value Sodium 05/29/2025 141 Potassium 05/29/2025 4.3 Chloride 05/29/2025 107 Carbon Dioxide 05/29/2025 24 Anion Gap 05/29/2025 14 Urea Nitrogen (BUN) 05/29/2025 20 (H) Creatinine, Serum 05/29/2025 1.53 (H) Estimated Glomerular Arik* 05/29/2025 33 Glucose 05/29/2025 117 (H) Calcium 05/29/2025 9.8 Office Visit on 05/29/2025 Component Date Value Rapid Influenza A Ag 05/29/2025 Negative QC Media Lot # 05/29/2025 [id number] Lot# Expiration Date 05/29/2025 100,826 Rapid Influenza B Ag 05/29/2025 Negative QC Media Lot # 05/29/2025 [id number] Lot# Expiration Date 05/29/2025 100,826 Rapid COVID Ag 05/29/2025 Negative QC Media Lot # 05/29/2025 [id number] Lot# Expiration Date 05/29/2025 102,826 White Blood Count 05/29/2025 14.5 (H) Red Blood Count 05/29/2025 4.98 Hemoglobin 05/29/2025 12.4 Hematocrit 05/29/2025 38.9 Mean Corpuscular Volume 05/29/2025 78.1 (L) Mean Corpuscular Hemoglo* 05/29/2025 24.9 (L) Mean Corpuscular HGB Conc 05/29/2025 31.9 Red Cell Distribution Wi* 05/29/2025 15.6 Platelet Count 05/29/2025 417 (H) Mean Platelet Volume 05/29/2025 9.5 Neutrophils Percent Auto 05/29/2025 76.6 (H) Imm Gran Pct Auto 05/29/2025 0.4 Lymphocytes Percent Auto 05/29/2025 15.5 (L) Monocytes Percent Auto 05/29/2025 5.5 Eosinophils Percent Auto 05/29/2025 1.5 Basophils Percent Auto 05/29/2025 0.5 NRBC Pct Auto 05/29/2025 0.0 Neutrophils Absolute Auto 05/29/2025 11.1 (H) Imm Gran Abs Auto 05/29/2025 0.06 (H) Lymphocytes Absolute Au* 05/29/2025 2.3 Monocytes Absolute Auto 05/29/2025 0.8 Eosinophils Absolute Auto 05/29/2025 0.2 Basophils Absolute Auto 05/29/2025 0.1 NRBC Abs Auto 05/29/2025 0.000 Sodium 05/29/2025 141 Potassium 05/29/2025 4.2 Chloride 05/29/2025 107 Carbon Dioxide 05/29/2025 24 Anion Gap 05/29/2025 14 Urea Nitrogen (BUN) 05/29/2025 20 (H) Creatinine, Serum 05/29/2025 1.54 (H) Estimated Glomerular Arik* 05/29/2025 32 Glucose 05/29/2025 117 (H) Calcium 05/29/2025 9.8 C Reactive Protein 05/29/2025 2.65 (H) Assessment & Plan Diarrhea, unspecified type -likely [...] 07/25/2025 10:00 AM Johana Garcia ADLT DENT [facility] documented in this encounter Plan of Treatment Upcoming Encounters Date Type Department Care Team (Late st Contact Info) Description 07/25/2025 10:00 AM EDT Office Visit [facility] [address] [place] [address] Johana Garcia [address] [place] [address] documented as of this encounter Procedures Procedure Name Priority Date/Time Associated Diagnosis Comments CBC WITH AUTO DIFFERENTIAL STAT 05/29/2025 2:12 PM EDT Diarrhea, unspecified type C-REACTIVE PROTEIN STAT 05/29/2025 2: 12 PM EDT Diarrhea, unspecified type BASIC METABOLIC PANEL STAT 05/29/2025 2:12 PM EDT Diarrhea, unspecified type POCT INFLUENZA B Routine 05/29/2025 2:04 PM EDT Diarrhea, unspecified type POCT INFLUENZA A Routine 05/29/2025 2:04 PM EDT Diarrhea, unspecified type POCT RAPID COVID ANTIGEN Routine 05/29/2025 2:03 PM EDT Diarrhea, unspecified type documented in this encounter Results * (ABNORMAL) C-reactive Protein (05/29/2025 2:12 PM EDT) C Reactive Protein 2.65(H) < or = 0.50 mg/dL [facility] Blood Venous blood specimen / Unknown 05/29/2025 2:12 PM EDT 05/29/2025 3:57 PM EDT Christianne John MD LAB BLOOD ORDERABLES Final Result [facility] [address] [place] [address] [phone] * (ABNORMAL) Basic Metabolic Panel (05/29/2025 2:12 PM EDT) Sodium 141 135 - 145 mmol/L [facility] Potassium 4.2 3.3 - 5.1 mmol/L [facility] Chloride 107 96 - 108 mmol/L [facility] Carbon Dioxide 24 22 - 29 mmol/L [facility] Anion Gap 14 12 - 20 [facility] Urea Nitrogen (BUN) 20(H) 9 - 16 mg/dL [facility] Creatinine, Serum 1.54(H) 0.5 - 1.4 mg/dL [facility] Estimated Glomerular Filt Rate 32 [facility] Comment:Chronic Kidney Disea se: Estimated GFR < 60 mL/min/1.67n7Ifjscl Kidney Disease: Estimated GFR < 15 mL/min/1.73m2 Glucose 117(H) 60 - 115 mg/dL [facility] Calcium 9.8 8.4 - 10.2 mg/dL [facility] Blood Venous blood specimen / Unknown 05/29/2025 2:12 PM EDT 05/29/2025 3:57 PM EDT us Christianne oJhn MD LAB BLOOD ORDERABLES Final Result [facility] [address] [place] [phone] * (ABNORMAL) CBC auto differential (05/29/2025 2:12 PM EDT) White Blood Count 14.5(H) 4.8 - 10.8 X10*3/uL [facility] Red Blood Count 4.98 4.20 - 5.50 X10*6/uL [facility] Hemoglobin 12.4 12.0 - 16.0 g/dl [facility] Hematocrit 38.9 37.0 - 47.0 % [facility] Mean Corpuscular Volume 78.1(L) 80.0 - 98.0 fL [facility] Mean Corpuscular Hemoglobin 24.9(L) 27.0 - 33.0 pg [facility] Mean Corpuscular HGB Conc 31.9 31.0 - 35.0 g/dl [facility] Red Cell Distribution Width 15.6 11.0 - 16.0 % [facility] Platelet Count 417(H) 160 - 400 X10*3/uL [facility] Mean Platelet Volume 9.5 9.4 - 12.3 fL [facility] Neutrophils Percent Auto 76.6(H) 45 - 73 % [facility] Imm Gran Pct Auto 0.4 0.0 - 0.4 % [facility] Lymphocytes Percent Auto 15.5(L) 20 - 40 % [facility] Monocytes Percent Auto 5.5 2 - 11 % [facility] Eosinophils Percent Auto 1.5 0 - 4 % [facility] Basophils Percent Auto 0.5 0 - 2 % [facility] NRBC Pct Auto 0.0 0.0 - 0.2 /100WBC [facility] Neutrophils Absolute Auto 11.1(H) 2.0 - 8.3 x10*3/uL [facility] Imm Gran Abs Auto 0.06(H) 0.00 - 0.03 X10*3/uL [facility] Lymphocytes Absolute Auto 2.3 1.2 - 4.9 X10*3/uL [facility] Monocytes Absolute Auto 0.8 0.1 - 1.2 X10*3/uL [facility] Eosinophils Absolute Auto 0.2 0.0 - 0.4 X10*3/uL [facility] Basophils Absolute Auto 0.1 0.0 - 0.2 X10*3/uL [facility] NRBC Abs Auto 0.000 0.0 - 0.012 X10*3/uL [facility] Blood Venous blood specimen / Unknown 05/29/2025 2:12 PM EDT 05/29/2025 3:57 PM EDT us Christianne John MD LAB BLOOD ORDERABLES Final Result [facility] [address] [place], [place] [phone] * POCT Influenza B manually resulted (05/29/2025 2:04 PM EDT) Rapid Influenza B Ag Negative Negative, Indeterminate QC Media Lot # [id number] Lot# Expiration Date 100,826 Swab 05/29/2025 2:04 PM EDT us Christianne John MD POINT OF CARE TEST ENTER/E DIT ORDERABLES Final Result * POCT Influenza A manually resulted (05/29/2025 2:04 PM EDT) [facility] Rapid Influenza A Ag Negative Negative, Indeterminate QC Media Lot # [id number] Lot# Expiration Date 100,826 Swab Nasopharyngeal structure / Unknown 05/29/2025 2:04 PM EDT us Christianne John MD POINT OF CARE TEST ENTER/E DIT ORDERABLES Final Result * POCT Rapid COVID Ag (05/29/2025 2:03 PM EDT) [facility] Rapid COVID Ag Negative QC Media Lot # [id number] Lot# Expiration Date 102,826 Swab 05/29/2025 2:03 PM EDT us Christianne John MD POINT OF CARE TEST ENTER/E DIT ORDERABLES Final Result documented in this encounter Visit Diagnoses Diagnosis Diarrhea, unspecified type- Primary documented in this encounter
[2025-06-01 09:37] VITALS: BP 146/56; PULSE 86; O2SAT 96; BMI 38.0
--- NOTE | 2025-06-01 09:37 | A.OFFVIS_ITS ---
Vital Signs 06/01/25 09:37 Height 4 ft 9 in Weight 175 lb 7.807 oz BMI 38.0 BP 146/56 H Blood Pressure Location Lt brachial Position Sitting Pulse 86 Pulse Source Pulse Oximeter Pulse Oximetry (%) 96 Oxygen Delivery Method Room Air Intake Visit Reasons: T2DM Intake Note: Patient present today for Type 2 Diabetes Mellitus Last Diabetic eye exam: October 2024 Last Podiatry Visit: 03/2025 Random Glucose: 117 mg/dl HgA1C: 7.1% Accounts Receivable Accountant Required: Yes Accounts Receivable Accountant Language: Service Cleaner Services: Accounts Receivable Accountant Offered & Declined Accompanied by: FOOD CHEMIST Allergies ibuprofen (From Motrin) Allergy (Intermediate, Verified 06/01/25 09:43) High Blood Pressure, Rash oxycodone (From Percocet) Allergy (Intermediate, Verified 06/01/25 09:43) Itching tirzepatide (From Mounjaro) Adverse Reaction (Severe, Verified 06/01/25 09:43) Diarrhea Medication List - Last Reconciled 06/01/25 by Ariana Barksdale PA-C acetaminophen ER 1,300 mg (2 x 650 mg) PO Q8H PRN 30 days albuterol sulfate 90 mcg/actuation 2 inhalations inhalation Q6H PRN 30 days amlodipine 10 mg PO DAILY aspirin 81 mg PO BEDTIME 90 days atorvastatin 80 mg PO BEDTIME 90 days blood pressure monitor As directed blood sugar diagnostic (FreeStyle Lite Strips) Use daily As directed to check bl ood glucose blood sugar diagnostic (FreeStyle Lite Strips) 3times a day blood-glucose meter (FreeStyle [place] Lite kit) As directed blood-glucose meter (FreeStyle Lite Meter kit) Use daily As directed to check blood sugars blood-glucose sensor (Dexcom G7 Sensor device) Use daily As directed to monitor blood glucose. Change q 10 days blood-glucose,director of occupational therapy,cont (Dexcom G7 Auto Service Dispatcher) use daily As directed to monitor blood glucose calcium acetate(phosphat bind) 667 mg PO BID 90 days cane As directed cholecalciferol (vitamin D3) 25 mcg PO DAILY 3 months clopidogrel 75 mg PO DAILY [Diabetic shoes with inserts As directed] disposable gloves As directed esomeprazole magnesium (Nexium) 40 mg PO DAILY ferrous sulfate 325 mg PO .once a week 90 days fluticasone propionate 50 mcg/actuation 1 spray intranasal DAILY PRN 30 days nxlbsbwhpvz-qeviydfst-jveyroue 200-62.5-25 mcg (Trelegy Ellipta) 1 inh inhalation DAILY 30 days folic acid 1 mg PO QAM 90 days FreeStyle Lancets (lancets) 3 times a day NS gabapentin 300 mg PO BEDTIME 90 days glucagon 3 mg/actuation (Baqsimi) mg intranasal hydralazine 25 mg PO TID 90 days hydrocortisone 1% (Anti-Itch (hydrocortisone)) 1 appl topical BID PRN 4 weeks [incomtinemce liner pads As directed] insulin glargine U-300 conc (Toujeo SoloStar U-300 Insulin) 24 units (0.08 mL) subcut DAILY 90 days ipratropium-albuterol 0.5 mg-3 mg(2.5 mg base)/3 mL 3 mL inhalation RQ4H WHILE AWAKE ketoconazole 2% 1 appl topical 2XW 30 days lancets (TRUEplus Lancets) As directed test 4 times a day lancets (FreeStyle Lancets) use daily as directed to check blood glucose losartan 25 mg PO DAILY 90 days meclizine (Travel-Ease (meclizine)) 12.5 mg (1/2 x 25 mg) PO BID PRN methylcellulose (laxative) (Citrucel) 500 mg PO DAILY montelukast 10 mg PO QPM 90 days Novolog FlexPen U-100 Insulin (insulin aspart U-100) 4 units (0.04 mL) subcut TID NS Oxygen Home Use As directed pen needle, diabetic (BD Sia 2nd Gen Pen Needle) 5 times a day semaglutide (Ozempic) 2 mg (0.75 mL) subcut QWEEK simethicone (Gas Relief (simethicone)) 250 mg (2 x 125 mg) PO BID PRN 90 days sucralfate 1 g PO BID PRN torsemide 20 mg PO BID [wipes As directed] HPI HPI T2DM: Details: Pt is a 80 y/o female who presents today for a dm follow up. She is accompanied today by her daughter who translates today. Significant past medical history of peripheral vascular disease, hyperparathyroidism, chronic kidney disease, vitamin-D deficiency, proteinuria, CHF, hypertension, hyperlipidemia come, obstructive sleep apnea and anemia presenting today for a follow up regarding her diabetes. Endo: Initially diagnosed with T2DM in 1999. Recent A1c is 7.1 down from 8.7. Current regimen: Toujeo 24 units qHS and novolog 4 units. And at last visit was started on Ozempic 2 mg weekly. She is tolerating the increased dosage of the Ozempic. She has noticed slight appetite suppression but nothing significant. No nausea or vomiting. No diarrhea. She has lost 10 lbs since our last visit. cgm- states the reader is broken. SHe states it is not reading or connecting to the sensor. She states that her reader has been broken for the last month. She has gone through an entire month supply of sensors. She states that she has not tried calling the company yet. -no more low glucose readings -Was initially started on treatment with Metformin. She reports metformin was stopped due to an issue with her kidney. She also failed Trulicity due to GI distress. I discontinue Jardiance due to frequent UTIs and yeast infections. She was started on mounjaro but caused diarrhea so she d/c this. Treats lows with juice. Checks sugar after to ensure it is rising. Treats according to rule of 15's. Has her eyes checked yearly, last eye exam needs to make appt . Denies retinopathy. Has neuropathy. On gabapentin. Sees podiatry. Has nephropathy, on losartan . Is followed by nephrology Has HLD, on Atorvastatin 80 mg PO daily. Has CAD. Had diabetes education. CV: Bp today is 146/56 and she is on amlodipine 10 mg, furosemide 20 mg b.i.d., losartan 25 mg and hydralazine 25 mg TID. No chest pain, shortness of breath or palpitations. Cholesterol is managed with atorvastatin 80 mg. Nephro: Follows with Nephrology. She states that she knows to avoid NSAIDs. 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 Aortic stenosis CKD (chronic kidney disease) stage 3, GFR 30-59 ml/min Dyslipidemia Diabetic polyneuropathy associated with type 2 diabetes mellitus Diabetic nephropathy associated with type 2 diabetes mellitus Chronic kidney disease Hypertension Asthma Thalamic pain syndrome GERD (gastroesophageal reflux disease) Morbid obesity Surgical History H/O colonoscopy H/O aortic valve replacement History of breast lump/mass excision History of tubal ligation History of cholecystectomy Family History Sister History of renal pelvis cancer Father Suicide Mother Lung disease Diabetes mellitus Social History Household Members: Family Housing: House Do you presently have visiting nurse or other home services: Yes (field foreman) Alcohol intake: never Comment: pt stays with pt. Patient Tobacco Use Status: Former Tobacco user Tobacco use type: Cigarette Years Smoked: 5 years e-Cigarette/Vaping Use: Never Used Second Hand Smoke Exposure: No service: No Current occupational status: unemployed and disabled Gender identity: Female Cognitive needs: Yes Hearing needs: No Vision needs: No Female Reproductive History Menstrual Age of Menarche: 10 Physical Exam Vital Signs: Last Vital Signs Pulse 86 06/01/25 09:37 BP 146/56 H 06/01/25 09:37 Pulse Ox 96 06/01/25 09:37 Oxygen Delivery Method Room Air 06/01/25 09:37 BMI result Body Mass Index 38.0 Const Orientation/consciousness: patient oriented x3 HEENT Ears: hearing grossly normal bilaterally Neck Thyroid: Thyroid normal Lymphatic: no lymphadenopathy noted Resp Auscultation: clear to auscultation bilaterally Cardio Rate: regular rate Rhythm: regular rhythm Heart sounds: S1 normal heart sound present and S2 normal heart sound present Skin General skin exam: no rashes or lesions noted Neuro General: patient oriented x3, gait normal and no focal motor deficits Results AMB Hemoglobin A1c AMB Hemoglobin A1c 7.1 % Last Edit by SEFERINO Arizmendi on 06/01/25 09:56 Results Reviewed Results Reviewed: Laboratory Last Values Glucose (Clinic) 117 mg/dL (60-115) H 06/01/25 09:45 Assessment & Plan Assessment & Plan (1) Uncontrolled type 2 diabetes mellitus with chronic kidney disease, with long-term current use of insulin: Code(s): E11.22 - Type 2 diabetes mellitus with diabetic chronic kidney disease; E11.65 - Type 2 diabetes mellitus with hyperglycemia; Z79.4 - meterman (current) use of insulin Category: Medical Plan: continue current treatment plan recehck labs in 3 months Reordered reader Provided phone number to Dexcom Does not want to go back on a [place] 3 (2) Morbid obesity with BMI of 40.0-44.9, adult: Code(s): E66.01 - Morbid (severe) obesity due to excess calories; Z68.41 - Body mass index [BMI] 40.0-44.9, adult Category: Medical Plan: down 10 lbs. states she is still continuing to lose weight. Orders: Orders AMB Hemoglobin A1c Today E11.22 - Type 2 diabetes mellitus with diabetic chronic kidney disease, E11.65 - Type 2 diabetes mellitus with hyperglycemia, Z13.9 - Encounter for screening, unspecified, Z79.4 - meterman (current) use of insulin Medications: Refilled blood-glucose,director of occupational therapy,cont (Dexcom G7 Auto Service Dispatcher) use daily As directed to monitor blood glucose 1 ea 0RF E11.22 - Type 2 diabetes mellitus with diabetic chronic kidney disease, E11.65 - Type 2 diabetes mellitus with hyperglycemia, Z79.4 - senior care (current) use of insulin Coding Level of Care Code Est Pt Level 4 (28190) Complex EM visit Add On G2211 Diagnoses Uncontrolled type 2 diabetes mellitus with chronic kidney disease, with long- term current use of insulin E11.22; E11.65; Z79.4 Morbid obesity with BMI of 40.0-44.9, adult E66.01; Z68.41
[2025-06-01 09:49] LABS: Glucose, Whole Blood 117 mg/dL (60-115)
--- OUTSIDE RECORDS SUMMARY | 2025-06-01 10:23 | XMS_ITS | Encounter Summary ---
Author Organization [employer] [place] [employer] [facility] Address [address] [place] [address] 7t [place] [address] Care Team Providers Care Kiln Loader Name Role Phone Unavailable Primary Care Provider Unavailabl e Reason for Visit * Reason Comments Med Refill Encounter Details Date Type Department Care Team (Late st Contact Info) Description 11/29/2023 Refill [facility] MED[facility] [address] [place] [address] Christianne John MD [address] [place] [address] Moderate persistent asthma, unspecified whether complicated Social [...] Description 07/25/2025 10:00 AM EDT Office Visit [facility] ADULT DENTAL [address] [place] [address] Radha, Johana [address] [place] [address] documented as of this encounter Visit Diagnoses Diagnosis Moderate persistent asthma, unspecified whether complicated documented in this encounter
--- OUTSIDE RECORDS SUMMARY | 2025-06-01 10:23 | XMS_ITS | Encounter Summary ---
Author Organization [employer] [facility] Address [address] [place] [address] [address]t [place] [address] Care Team Providers Care Bark Grinder Name Role Phone Unavailable Primary Care Provider Unavailabl e Reason for Visit * Reason Comments Med Refill Encounter Details Date Type Department Care Team (Late st Contact Info) Description 12/01/2023 Refill [facility] MED[facility]INE [address] [place] [address] Christianne John MD [address] [place] [address] Moderate persistent asthma, unspecified whether complicated Social [...] Description 07/25/2025 10:00 AM EDT Office Visit [facility] ADULT DENTAL [address] [place] [address] Radha, Johana [address] [place] [address] documented as of this encounter Visit Diagnoses Diagnosis Moderate persistent asthma, unspecified whether complicated documented in this encounter
--- OUTSIDE RECORDS SUMMARY | 2025-06-01 10:23 | XMS_ITS | Encounter Summary ---
Author Organization [employer] Address [address] [place] [address] [address]t [place] [address] Care Team Providers Care Hand Spring Repairer Helper Name Role Phone Marycarmen Quijano MD Primary Care Provider [phone] Reason for Visit * Reason Comments Med Refill Encounter Details Date Type Department Care Team ([facility] Contact Info) Description 03/10/2023 Refill [facility] [address] [place], [place] [phone] Marycarmen Quijano MD [address] [place] [address] Primary hypertension Social History Tobacco Use Types [...] Encounters Date Type Department Care Team ([facility] Contact Info) Description 07/25/2025 10:00 AM EDT Office Visit [facility] ADULT DENTAL [address] [place] [address] Santos Garciaaris [address] [place] [address] documented as of this encounter Visit Diagnoses Diagnosis Primary hypertension Unspecified essential hypertension documented in this encounter Care Teams Hand Spring Repairer Helper Relationship Specialty Start Date End Date Marycarmen Quijano MD [address] [place] [address] PCP - General Family Medicine 03/02/23 06/20/23 documented as of this encounter
--- OUTSIDE RECORDS SUMMARY | 2025-06-01 10:23 | XMS_ITS | Encounter Summary ---
Author Organization [employer] Address [address] [place] [address] 7t [place] [address] Care Team Providers Care Tubing Mill Operator Name Role Phone Unavailable Primary Care [...] Description 07/25/2025 10:00 AM EDT Office Visit [facility] ADULT DENTAL [address] [place] [address] Radha, Johana [address] [place] [address] documented as of this encounter Visit Diagnoses Not on filedocumented in this encounter
--- OUTSIDE RECORDS SUMMARY | 2025-06-01 10:23 | XMS_ITS | Encounter Summary ---
Author Organization [employer] [facility] Address [address] [place] [address] [address] [place] [address] Care Team Providers Care Retail Sales Clerk Name Role Phone Marycarmen Quijano MD Primary Care Provider [phone] Marycarmen Quijano MD Primary Care Provider Reason for Visit * Reason Comments Med Refill Encounter Details Date Type Department Care Team (Late st Contact Info) Description 11/10/2022 Refill [facility] MEDICINE [address] [place], [place] [phone] Marycarmen Quijano MD [address] [place], [place] [phone] Social History Tobacco Use Types Packs/Day Years [...] Description 07/25/2025 10:00 AM EDT Office Visit [facility] ADULT DENTAL [address] [place], [place] [phone] Radha, Johana [address] [place] [address] documented as of this encounter Visit Diagnoses Not on filedocumented in this encounter Care Teams Retail Sales Clerk Relationship Specialty Start Date End Date Marycarmen Quijano MD [address] [place] [address] PCP - General Family Medicine 07/26/13 02/01/23 Marycarmen Quijano MD [address] [place] [address] PCP - General Family Medicine 03/02/23 06/20/23 documented as of this encounter
--- OUTSIDE RECORDS SUMMARY | 2025-06-01 10:23 | XMS_ITS | Encounter Summary ---
Author Organization [employer] Address [address] [facility] 7t [place] [address] Care Team Providers Care Jigger Machine Operator Name Role Phone Unavailable Primary Care Provider Unavailabl e Encounter Details Date Type Department Care Team ([facility] st Contact Info) Description 05/29/2025 Telephone [facility] MEDICINE [address] [place] [address] Christianne John MD [address] [place] [address] Social History Tobacco Use Types Packs/Day Years [...] AM EDT documented as of this encounter Miscellaneous Notes * Telephone Encounter - Nickie Perez - 05/30/2025 10:25 AM EDT Patient added to [facility] New Patient wait list as of 05/30/25. * Telephone Encounter - Velma Caicedo RN - 05/30/2025 9:40 AM EDT T/C placed to pt via S Senior Instructor Nancy #[id number]. No answer x 2. Unable to leave voicemail as mailbox is full. * Telephone Encounter - Miesha Eden RN - 05/29/2025 7:28 PM EDT Please add pt to new patient list seen in [facility] 05/29/25 * Telephone Encounter - Christianne John MD - 05/29/2025 6:27 PM EDT [facility]. No evidence of acute abdomin. Please call for status checktomorrow and please make sure pt is on new PCP waiting list. Thank you. documented in this encounter Plan of Treatment Upcoming Encounters Date Type Department Care Team (Late st Contact Info) Description 07/25/2025 10:00 AM EDT Office Visit [facility] ADULT DENTAL [address] [place] [address] Johana Garcia [address] [place] [address] documented as of this encounter Visit Diagnoses Not on filedocumented in this encounter
--- OUTSIDE RECORDS SUMMARY | 2025-06-01 10:23 | XMS_ITS | Clinical Summary ---
Author Organization [facility] Address [address] [address] Phone Care Team Providers Care Mirror Specialist Name Role Phone Marycarmen Quijano MD Primary Care Provider [phone] Allergies Active Allergy Reactions Criticality Noted Date [...] day Active ergocalciferol (VITAMIN D-2) 1.25 MG (21812 UT) capsule Take 1 capsule by mouth [...] failure 01/28/2021 Atherosclerotic heart diseas e of [place] coronary artery without angina pectoris 01/28/2021 Chronic [...] arteriosclerosis 07/11/2012 Overview (12/07/2022): Cath 01/2010 at [facility] showed LCx 80% and ostial LAD [...] Only [facility] [address] [address] Alycia Rios ARNP Stage 3b [...] 8.5(H) <5 % [facility] Comments From [facility] Creatinine 1.35(H) 0.70 - 1.30 mg/dl PVNMA Potassium 4.5 3.5 - 5.1 mmol/L PVNMA Calcium 8.8 8.4 - 10.2 mg/dl PVNMA eGFR Non- 38(L) >60 ml/min PVNMA 09/18/2020 us [facility] Conversion [facility] [id number] LICITED RESULTS Final Result PVNMA from Last 3 Months or Most Recently Relevant to Health Maintenance Insurance [facility] ([id number]) [facility] MCR ([id number]) YASMIN FRANCO [id number] Care Teams Mirror Specialist Relationship Specialty Start Date End Date Marycarmen Quijano MD [address] [place] [address] PCP - General 10/14/20
--- OUTSIDE RECORDS SUMMARY | 2025-06-01 10:23 | XMS_ITS | Encounter Summary ---
Author Organization [employer] Address [address] [facility] 7t [place] [address] Care Team Providers Care Network Operations Specialist Name Role Phone Marycarmen Quijano MD Primary Care Provider [phone] Reason for Visit * Reason Comments Med Refill Encounter Details Date Type Department Care Team ([facility] Contact Info) Description 04/12/2023 Refill [facility] [address] [place] [address] Jose Johnson MD [address] [place] [address] Social History Tobacco Use Types Packs/Day Years [...] Upcoming Encounters Date Type Department Care Team ([facility] Contact Info) Description 07/25/2025 10:00 AM EDT Office Visit [facility] ADULT DENTAL [address] [place] [address] RadhaJohana [address] [place] [address] documented as of this encounter Visit Diagnoses Not on filedocumented in this encounter Care Teams Network Operations Specialist Relationship Specialty Start Date End Date Marycarmen Quijano MD [address] [place] [address] PCP - General Family Medicine 03/02/23 06/20/23 documented as of this encounter
--- OUTSIDE RECORDS SUMMARY | 2025-06-01 10:23 | XMS_ITS | Encounter Summary ---
Author Organization [facility] Address [address] [place] [address] 7t [place] [address] Care Team Providers Care Manager Licensing Name Role Phone Unavailable Primary Care Provider Unavailabl e Reason for Visit * Reason Comments Med Refill Encounter Details Date Type Department Care Team (Late st Contact Info) Description 12/02/2023 Refill [facility] MEDICINE [address] [place] [address] Christianne John MD [address] [place] [address] Moderate persistent asthma, unspecified whether complicated Social [...] Description 07/25/2025 10:00 AM EDT Office Visit [facility] ADULT DENTAL [address] [place] [address] Radha, Johana [address] [place] [address] documented as of this encounter Visit Diagnoses Diagnosis Moderate persistent asthma, unspecified whether complicated documented in this encounter
--- OUTSIDE RECORDS SUMMARY | 2025-06-01 10:23 | XMS_ITS | Encounter Summary ---
Author Organization [employer] [facility] Address [address] [place] [address] [address]t [place] [address] Care Team Providers Care Drier Attendant Name Role Phone Marycarmen Quijano MD Primary Care Provider [phone] Reason for Visit * Reason Comments Med Refill Encounter Details Date Type Department Care Team ([facility] Contact Info) Description 04/04/2023 Refill [facility] MEDICINE [address] [place] [address] Marycarmen Quijano MD [address] [place] [address] Social History Tobacco Use Types Packs/Day Years [...] ([facility] Contact Info) Description 07/25/2025 10:00 AM EDT Office Visit [facility] ADULT DENTAL [address] [place] [address] RadhaJohana [address] [place] [address] documented as of this encounter Visit Diagnoses Not on filedocumented in this encounter Care Teams Drier Attendant Relationship Specialty Start Date End Date Marycarmen Quijano MD [address] [place] [address] PCP - General Family Medicine 03/02/23 06/20/23 documented as of this encounter
--- OUTSIDE RECORDS SUMMARY | 2025-06-01 10:23 | XMS_ITS | Encounter Summary ---
Author Organization [employer] [facility] Address [address] [place] [address] [address] [place] [address] Care Team Providers Care Sales Representative [employer] Name Role Phone Unavailable Primary Care Provider Unavailabl e Reason for Visit * Reason Comments Med Refill Encounter Details Date Type Department Care Team (Late st Contact Info) Description 11/24/2023 Refill [facility] MEDICINE [address] [place] [address] Christianne John MD [address] [place] [address] Moderate persistent asthma, unspecified whether complicated Social [...] Description 07/25/2025 10:00 AM EDT Office Visit [facility] ADULT DENTAL [address] [place] [address] Radha, Johana [address] [place] [address] documented as of this encounter Visit Diagnoses Diagnosis Moderate persistent asthma, unspecified whether complicated documented in this encounter
--- OUTSIDE RECORDS SUMMARY | 2025-06-01 10:23 | XMS_ITS | Encounter Summary ---
Author Organization [employer] [facility] Address [address] [place] [address] 7t [place] [address] Care Team Providers Care Exceptional Student Education Aide Name Role Phone Marycarmen Quijano MD Primary Care Provider [phone] Reason for Visit * Reason Comments Med Refill Encounter Details Date Type Department Care Team ([facility] Contact Info) Description 02/06/2023 Refill [facility] MEDICINE [address] [place] [address] Marycarmen Quijano MD [address] [place] [address] Social History Tobacco Use Types Packs/Day Years [...] Upcoming Encounters Date Type Department Care Team ([facility] Contact Info) Description 07/25/2025 10:00 AM EDT Office Visit [facility] ADULT DENTAL [address] [place] [address] RadhaJohana [address] [place] [address] documented as of this encounter Visit Diagnoses Not on filedocumented in this encounter Care Teams Exceptional Student Education Aide Relationship Specialty Start Date End Date Marycarmen Quijano MD [address] [place] [address] PCP - General Family Medicine 03/02/23 06/20/23 documented as of this encounter
--- OUTSIDE RECORDS SUMMARY | 2025-06-01 10:23 | XMS_ITS | Encounter Summary ---
Author Organization [employer] [facility] Address [address] [place] [address] 7t [place] [address] Care Team Providers Care Stock Mover Name Role Phone Marycarmen Quijano MD Primary Care Provider [phone] Marycarmen Quijano MD Primary Care Provider [phone] Encounter Details Date Type Department Care Team (Latest Contact Info) Description 06/16/2021 Abstract [facility] CONVERSIONS Dental, Provider, DDS Social History [...] Description 07/25/2025 10:00 AM EDT Office Visit [facility] ADULT DENTAL [address] [place] [address] Radha, Johana [address] [place] [address] documented as of this encounter Visit Diagnoses Not on filedocumented in this encounter Care Teams Stock Mover Relationship Specialty Start Date End Date Marycarmen Quijano MD [address] [place] [address] PCP - General Family Medicine 07/26/13 02/01/23 Marycarmen Quijano MD [address] [place] [address] PCP - General Family Medicine 03/02/23 06/20/23 documented as of this encounter
--- OUTSIDE RECORDS SUMMARY | 2025-06-01 10:23 | XMS_ITS | Patient Health Record ---
Author Organization [facility] Address [address] [place] [address] Care Team Providers Care Comb Tender Name Role Phone Jaime VORA, Shelby Primary Care Provider Unavail able Randy Leal Unavailable [phone] Allergies Allergen (clinical drug ingredient) Drug/Non Drug [...] Problem Acquired hammer toe of right foot (7509751992559785 ) Other hammer toe(s) (acquired), right foot (M20.41) Active confirmed Problem Acquired hammer toe of left foot ([id number] ) Other hammer toe(s) (acquired), left foot (M20.42) Active confirmed Problem Polyneuropathy due to type 2 diabetes mellitus (418595655) Type 2 diabetes mellitus with diabetic polyneuropathy (E11.42) Active confirmed Vital Signs Blood pressure diastolic 65 mm Hg 04/24/2025 Height 4 ft 9 in in 04/24/2025 Blood pressure systolic 128 mm Hg 04/24/2025 Weight 182 lbs 04/24/2025 BMI 39.38 kg/m2 04/24/2025 Procedures Procedure Date Ordered Date Performed Result Body Sit e 53957-XQERDHA NAIL, 6 OR MORE 06/16/2024 N/A 32098-YZCM SKIN LESIONS, 2 TO 4 06/16/2024 N/A 56063-FAMIZEK NAIL, 6 OR MORE 12/26/2024 N/A 39310-Anjrerfi Plate 12/26/2024 N/A 44817-SOND SKIN LESIONS, 2 TO 4 12/26/2024 N/A 89942-ALUKYOW NAIL, 6 OR MORE 04/24/2025 N/A 01330-AQNC SKIN LESIONS, 2 TO 4 04/24/2025 N/A Encounters Encounter Location Date Provider Diagnosis [address] [address] 06/16/2024 Randyalycia Leal Type 2 diabetes mellitus with diabetic polyneuropathy E11.42 and Tinea unguium B35.[address] [address] 12/26/2024 Randy Leal Type 2 diabetes mellitus with diabetic polyneuropathy E11.42 ; Tinea unguium B35.1 ; Other hammer toe(s) (acquired), right foot M20.41 ; Other hammer toe(s) (acquired), left foot M20.42 and Subungual hematoma of left foot, initial encounter S90.222A [address] [address] 04/24/2025 Randy Leal Type 2 diabetes mellitus with diabetic polyneuropathy E11.42 ; Tinea unguium B35.1 and Xerosis of skin L85.[address] [address] 09/19/2024 Randy Leal [address] [address] 12/26/2024 Randy Leal [address] [address] 03/27/2025 Randy Leal Assessments Encounter Date Diagnosis [...] Treatment Pending Test Test Name Order Date 05455-UBXGZWF NAIL, 6 OR MORE 03/17/2024 76653-HPHXJQZ NAIL, 6 OR MORE 06/16/2024 64956-ZEKKCUY NAIL, 6 OR MORE 12/26/2024 38002-ZZPUNYU NAIL, 6 OR MORE 04/24/2025 42420-Djpjjser Plate 12/26/2024 08359-CLVM SKIN LESIONS, 2 TO 4 04/24/20 25 40063-TPBP SKIN LESIONS, 2 TO 4 12/27/19 04616-OKWH SKIN LESIONS, 2 TO 4 06/16/20 24 32700-KIUG SKIN LESIONS, 2 TO 4 03/17/20 24 Next Appt Details Provider Name:Randy Leal , 07/24/2025 02:00:00 PM, [address] [facility], [place], [address], Insurance Providers Payer Name Payer Address Payer Phone Subscriber Number Group Number Insured Name Patient Relationship to Insured Coverage Start Date Coverage End Date [facility] [employer] Claims [address] [facility] [place] [id number] [phone] [id number] Katherine Jamil Self - patient is the insured Medical (General) History Medical History History ICD Code Anxiety Arthritis asthma Back,Hip,and Knee pain CAD (Cholesterol) Cataracts Depression Diabetic Heart disease High blood pressure Kidney disease Lung disease Numbness Poor circulation Reflux ( GERD) sinusitis Vascular phlebitis (clots) Chicken pox Replacement Heart Valves Transfusions Surgical History Surgery Date(Month/Year)
--- OUTSIDE RECORDS SUMMARY | 2025-06-01 10:23 | XMS_ITS | Encounter Summary ---
Author Organization [employer] Address [address] [place] [address] 7t [place] [address] Care Team Providers Care Divisional Storekeeper Name Role Phone Marycarmen Quijano MD Primary Care Provider [phone] Reason for Visit * Reason Comments Med Refill Encounter Details Date Type Department Care Team ([facility] Contact Info) Description 03/07/2023 Refill [facility] CHC MED & PEDS [address] [place], [place] [address] Marycarmen Quijano MD [address] [place] [address] Social History Tobacco Use Types Packs/Day Years [...] Upcoming Encounters Date Type Department Care Team ([facility] Contact Info) Description 07/25/2025 10:00 AM EDT Office Visit [facility] ADULT DENTAL [address] [place] [address] Radha, Johana [address] [place] [address] documented as of this encounter Visit Diagnoses Not on filedocumented in this encounter Care Teams Divisional Storekeeper Relationship Specialty Start Date End Date Marycarmen Quijano MD [address] [place] [address] PCP - General Family Medicine 03/02/23 06/20/23 documented as of this encounter
--- OUTSIDE RECORDS SUMMARY | 2025-06-01 10:23 | XMS_ITS | Encounter Summary ---
Author Organization [employer] [facility] Address [address] [place] [address] 7t [place] [address] Care Team Providers Care Ammonia Refrigeration Worker Name Role Phone Marycarmen Quijano MD Primary Care Provider [phone] Reason for Visit * Reason Comments Med Refill Encounter Details Date Type Department Care Team ([facility] Contact Info) Description 04/15/2023 Refill [facility] MEDICINE [address] [place] [address] Marycarmen Quijano MD [address] [place] [address] Social History Tobacco Use Types Packs/Day Years [...] Upcoming Encounters Date Type Department Care Team ([facility] Contact Info) Description 07/25/2025 10:00 AM EDT Office Visit [facility] ADULT DENTAL [address] [place] [address] RadhaJohana [address] [place] [address] documented as of this encounter Visit Diagnoses Not on filedocumented in this encounter Care Teams Ammonia Refrigeration Worker Relationship Specialty Start Date End Date Marycarmen Quijano MD [address] [place] [address] PCP - General Family Medicine 03/02/23 06/20/23 documented as of this encounter
--- OUTSIDE RECORDS SUMMARY | 2025-06-01 10:23 | XMS_ITS | Encounter Summary ---
Author Organization [facility] Address [address] [place] [address] 7t [place] [address] Care Team Providers Care Firer Kiln Name Role Phone Unavailable Primary Care Provider Unavailabl e Encounter Details Date Type Department Care Team (Late Contact Info) Description 05/29/2025 Orders Only GENERIC EXTERNAL DATA DEPARTMENT Provider, Generic External Data Social History Tobacco Use Types Packs/Day Years [...] Department Care Team (Late Contact Info) Description 07/25/2025 10:00 AM EDT Office Visit [facility] ADULT DENTAL [address] [place] [address] Radha, Johana [address] [place] [address] documented as of this encounter Procedures Procedure Name Priority Date/Time Associated Diagnosis Comments BASIC METABOLIC PANEL Routine 05/29/2025 2:12 PM EDT documented in this encounter Results * (ABNORMAL) Basic Metabolic Panel (05/29/2025 2:12 PM EDT) Sodium 141 135 - 145 mmol/L [facility] Potassium 4.3 3.3 - 5.1 mmol/L [facility] Chloride 107 96 - 108 mmol/L [facility] Carbon Dioxide 24 22 - 29 mmol/L [facility] Anion Gap 14 12 - 20 [facility] Urea Nitrogen (BUN) 20(H) 9 - 16 mg/dL [facility] Creatinine, Serum 1.53(H) 0.5 - 1.4 mg/dL [facility] Estimated Glomerular Filt Rate 33 [facility] Comment:Chronic Kidney Disea se: Estimated GFR < 60 mL/min/1.26d3Lsbzis Kidney Disease: Estimated GFR < 15 mL/min/1.73m2 Glucose 117(H) 60 - 115 mg/dL [facility] Calcium 9.8 8.4 - 10.2 mg/dL [facility] 05/29/2025 2:12 PM EDT 05/29/2025 3:57 PM EDT us Generic External Data Provider LAB BLOOD ORDERAB LES Final Result [facility] [address] [place] [address] [phone] documented in this encounter Visit Diagnoses Not on filedocumented in this encounter
--- OUTSIDE RECORDS SUMMARY | 2025-06-01 10:23 | XMS_ITS | Clinical Summary ---
Author Organization [employer] Address [address] [place] [address] 7t [place] [address] Care Team Providers Care Event Promotions Coordinator Name Role Phone Unavailable Primary Care [...] BEDTIME 2 Active Blood Glucose Monitoring Suppl (Falcon SocialStyle Dover Lite) w/Device kit TEST BLOOD SUGAR THREE [...] by mouth at bed time. Active Creon 88076-29060 units capsule 3 Active pantoprazole (ProtoNix) 40 [...] 3 Active ergocalciferol (Vitamin D2) 1.25 MG (96856 UT) capsule TAKE 1 CAPSULE BY MOUTH [...] Description 05/29/2025 1:20 PM EDT Office Visit [facility] [address] [place] [address] Christianne John MD Diarrhea, unspecified type (Primary Dx) 05/29/[address] [facility] MEDICINE [address] [place] [address] Christianne John MD 05/29/2025 Orders Only GENERIC EXTERNAL DATA DEPARTMENT Provider, Generic External Data 05/29/2025 Travel from Last 3 Months Immunizations Immunization Administration [...] AM EDT Office Visit [facility] ADULT DENTAL [address] [place] [address] Johana Garcia [address] [place] [address] Health Maintenance Due Date Last Done Comments [...] METABOLIC PANEL Routine 05/29/2025 2:12 PM EDT C-REACTIVE PROTEIN STAT 05/29/2025 2: 12 PM EDT Diarrhea, unspecified type BASIC METABOLIC PANEL STAT 05/29/2025 2:12 PM EDT Diarrhea, unspecified type CBC WITH AUTO DIFFERENTIAL STAT 05/29/2025 2:12 PM EDT Diarrhea, unspecified type POCT INFLUENZA B Routine 05/29/2025 2:04 PM EDT Diarrhea, unspecified type POCT INFLUENZA A Routine 05/29/2025 2:04 PM EDT Diarrhea, unspecified type POCT RAPID COVID ANTIGEN Routine 05/29/2025 2:03 PM EDT Diarrhea, unspecified type PROPHYLAXIS - ADULT Routine 01/12/2025 9 :00 [...] Relevant to Health Maintenance Results * (ABNORMAL) CBC auto differential (05/29/2025 2:12 PM EDT) White Blood Count 14.5(H) 4.8 - 10.8 X10*3/uL [facility] Red Blood Count 4.98 4.20 - 5.50 X10*6/uL [facility] Hemoglobin 12.4 12.0 - 16.0 g/dl [facility] Hematocrit 38.9 37.0 - 47.0 % [facility] Mean Corpuscular Volume 78.1(L) 80.0 - 98.0 fL [facility] Mean Corpuscular Hemoglobin 24.9(L) 27.0 - 33.0 pg [facility] Mean Corpuscular HGB Conc 31.9 31.0 - 35.0 g/dl [facility] Red Cell Distribution Width 15.6 11.0 - 16.0 % [facility] Platelet Count 417(H) 160 - 400 X10*3/uL [facility] Mean Platelet Volume 9.5 9.4 - 12.3 fL [facility] Neutrophils Percent Auto 76.6(H) 45 - 73 % [facility] Imm Gran Pct Auto 0.4 0.0 - 0.4 % [facility] Lymphocytes Percent Auto 15.5(L) 20 - 40 % [facility] Monocytes Percent Auto 5.5 2 - 11 % [facility] Eosinophils Percent Auto 1.5 0 - 4 % [facility] Basophils Percent Auto 0.5 0 - 2 % [facility] NRBC Pct Auto 0.0 0.0 - 0.2 /100WBC [facility] Neutrophils Absolute Auto 11.1(H) 2.0 - 8.3 x10*3/uL [facility] Imm Gran Abs Auto 0.06(H) 0.00 - 0.03 X10*3/uL [facility] Lymphocytes Absolute Auto 2.3 1.2 - 4.9 X10*3/uL [facility] Monocytes Absolute Auto 0.8 0.1 - 1.2 X10*3/uL [facility] Eosinophils Absolute Auto 0.2 0.0 - 0.4 X10*3/uL [facility] Basophils Absolute Auto 0.1 0.0 - 0.2 X10*3/uL [facility] NRBC Abs Auto 0.000 0.0 - 0.012 X10*3/uL [facility] Blood Venous blood specimen / Unknown 05/29/2025 2:12 PM EDT 05/29/2025 3:57 PM EDT Christianne John MD LAB BLOOD ORDERABLES Final Result Performing Organization Address [facility]/ZIP Co de Phone Number [facility] [address] [place] [phone] * (ABNORMAL) C-reactive Protein (05/29/2025 2:12 PM EDT) Pathologist [facility] C Reactive Protein 2.65(H) < or = 0.50 mg/dL [facility] Blood Venous blood specimen / Unknown 05/29/2025 2:12 PM EDT 05/29/2025 3:57 PM EDT Christianne John MD LAB BLOOD ORDERABLES Final Result Performing Organization Address [facility]/ZIP Co de Phone Number [facility] [address] [place] [phone] * (ABNORMAL) Basic Metabolic Panel (05/29/2025 2:12 PM EDT) Only the most recent of2 resultswithin the time period is included. Pathologist [facility] Sodium 141 135 - 145 mmol/L [facility] Potassium 4.3 3.3 - 5.1 mmol/L [facility] Chloride 107 96 - 108 mmol/L [facility] Carbon Dioxide 24 22 - 29 mmol/L [facility] Anion Gap 14 12 - 20 [facility] Urea Nitrogen (BUN) 20(H) 9 - 16 mg/dL [facility] Creatinine, Serum 1.53(H) 0.5 - 1.4 mg/dL [facility] Estimated Glomerular Filt Rate 33 [facility] Comment:Chronic Kidney Disea se: Estimated GFR < 60 mL/min/1.77d4Znbfva Kidney Disease: Estimated GFR < 15 mL/min/1.73m2 Glucose 117(H) 60 - 115 mg/dL [facility] Calcium 9.8 8.4 - 10.2 mg/dL [facility] 05/29/2025 2:12 PM EDT 05/29/2025 3:57 PM EDT Generic External Data Provider LAB BLOOD ORDERAB LES Final Result [facility] [address] [place] [phone] * POCT Influenza B manually resulted (05/29/2025 2:04 PM EDT) [facility] Rapid Influenza B Ag Negative Negative, Indeterminate QC Media Lot # [id number] Lot# Expiration Date [id number] Swab 05/29/2025 2:04 PM EDT Result [facility] Christianne John MD POINT OF CARE TEST ENTER/E DIT ORDERABLES Final Result * POCT Influenza A manually resulted (05/29/2025 2:04 PM EDT) [facility] Rapid Influenza A Ag Negative Negative, Indeterminate QC Media Lot # [id number] Lot# Expiration Date [id number] Swab Nasopharyngeal structure / Unknown 05/29/2025 2:04 PM EDT Christianne John MD POINT OF CARE TEST ENTER/E DIT ORDERABLES Final Result * POCT Rapid COVID Ag (05/29/2025 2:03 PM EDT) [facility] Rapid COVID Ag Negative QC Media Lot # [id number] Lot# Expiration Date [id number] Swab 05/29/2025 2:03 PM EDT Christianne John MD POINT OF CARE TEST ENTER/E DIT ORDERABLES Final Result * HEMOGLOBIN A1C (07/09/2022 10:40 AM EDT) Estimated Average Glucose 151 mg/dL [facility] Comment: eAG = Estimated average glucose which is %A1C expressed as average glucose, using the formula of the I1P-Hfgyyhp Average Glucose study (ADAG), Diabetes Care, Vol.31,#8, [...] patient sample. 07/09/2022 10:4 0 AM EDT Historical Provider HISTORICAL/NON ORDERABLE LABS Final Result [...] [facility] Comment: NOTE: For -[place] individuals, multiply the result by 1.210. Chronic [...] Result [facility] [address] from Last 3 Months or Most Recently Relevant to Health Maintenance Insurance [employer] (HMO D-SNP) DENTAL [facility]
--- OUTSIDE RECORDS SUMMARY | 2025-06-01 10:23 | XMS_ITS | Encounter Summary ---
Author Organization [employer] Address [address] [place] [address] [address]t [place] [address] Care Team Providers Care Public Address System Operator Name Role Phone Marycarmen Quijano MD Primary Care Provider [phone] Reason for Visit * Reason Comments Med Refill Encounter Details Date Type Department Care Team ([facility] Contact Info) Description 03/03/2023 Refill [facility] CHC MED & PEDS [address] [place], [place] [phone] Marycarmen Quijano MD [address] [place] [address] Primary hypertension Social History Tobacco Use Types [...] Upcoming Encounters Date Type Department Care Team ([facility] Contact Info) Description 07/25/2025 10:00 AM EDT Office Visit [facility] ADULT DENTAL [address] [place] [address] RadhaJohana [address] [place] [address] documented as of this encounter Visit Diagnoses Diagnosis Primary hypertension Unspecified essential hypertension documented in this encounter Care Teams Public Address System Operator Relationship Specialty Start Date End Date Marycarmen Quijano MD [address] [place] [address] PCP - General Family Medicine 03/02/23 06/20/23 documented as of this encounter
--- OUTSIDE RECORDS SUMMARY | 2025-06-01 10:23 | XMS_ITS | Encounter Summary ---
Author Organization [employer] [facility] Address [address] [place] [address] [address]t [place] [address] Care Team Providers Care Highway Truck Driver Name Role Phone Unavailable Primary Care Provider Unavailabl e Reason for Visit * Reason Comments Med Refill Encounter Details Date Type Department Care Team (Late st Contact Info) Description 01/19/2024 Refill [facility] MEDICINE [address] [place] [address] Christianne John MD [address] [place] [address] Vitamin deficiency Social History Tobacco Use Types [...] Description 07/25/2025 10:00 AM EDT Office Visit [facility] ADULT DENTAL [address] [place] [address] Santos Garciaaris [address] [place] [address] documented as of this encounter Visit Diagnoses Diagnosis Vitamin deficiency Unspecified vitamin deficiency documented in this encounter
--- OUTSIDE RECORDS SUMMARY | 2025-06-01 10:23 | XMS_ITS | Encounter Summary ---
Author Organization [employer] [facility] Address [address] [place] [address] 7t [place] [address] Care Team Providers Care Envelope Press Operator Name Role Phone Marycarmen Quijano MD Primary Care Provider [phone] Reason for Visit * Reason Comments Med Refill Encounter Details Date Type Department Care Team ([facility] Contact Info) Description 04/15/2023 Refill [facility] MEDICINE [address] [place] [address] Marycarmen Quijano MD [address] [place] [address] Social History Tobacco Use Types Packs/Day Years [...] Care Team ([facility] Contact Info) Description 07/25/2025 10:00 AM EDT Office Visit [facility] ADULT DENTAL [address] [place] [address] RadhaJohana [address] [place] [address] documented as of this encounter Visit Diagnoses Not on filedocumented in this encounter Care Teams Envelope Press Operator Relationship Specialty Start Date End Date Marycarmen Quijano MD [address] [place] [address] PCP - General Family Medicine 03/02/23 06/20/23 documented as of this encounter
== END 2025-06-01 10:01 | disposition home or self-care (01) ==
LOC: HO.ENCR 09:35
PROVIDERS: PCP Internal Medicine; Visit Provider Physician Assistant
DX: E11.22 Type 2 diabetes mellitus with diabetic chronic kidney disease (principal); E11.65 Type 2 diabetes mellitus with hyperglycemia; Z79.4 Long term (current) use of insulin; E66.01 Morbid (severe) obesity due to excess calories; Z68.41 Body mass index [BMI] 40.0-44.9, adult; Z13.9 Encounter for screening, unspecified

== ENCOUNTER → 2025-06-01 09:35 | Outpatient (BNVA) | payer OTHER, SELFPAY | PROVIDERS: PCP Internal Medicine; Visit Provider Physician Assistant | DX: E11.22 Type 2 diabetes mellitus with diabetic chronic kidney disease (principal); E11.65 Type 2 diabetes mellitus with hyperglycemia; E66.01 Morbid (severe) obesity due to excess calories; Z68.41 Body mass index [BMI] 40.0-44.9, adult; Z79.4 Long term (current) use of insulin | CPT/HCPCS: 82947; 83036; 99212 ==

== ENCOUNTER 2025-06-05 09:38 | Outpatient (AMB) | payer OTHER, SELFPAY ==
--- OUTSIDE RECORDS SUMMARY | 2024-09-19 06:00 | XMS_ITS ---
Author Organization [facility] Address [address] [place] [address] Care Team Providers Care Medicine Tech Name Role Phone Jaime VORA, Shelby Primary Care Provider Unavail Randy Marshall Unavailable [phone] Encounters Encounter Location Date Provider Diagnosis [address] [address] 09/19/2024 Randy Leal Plan Of Treatment Next Appt Details Provider Name:Randy Leal , 07/24/2025 02:00:00 PM, [address] [place], [address], Progress Notes * MICAELAKatherine BashirDOB: 5 (80 yo F)Acc No.[id number]:09/19/2024 Progress Note Patient: Katherine FARMER Provider: Adelina Leal DPM :1945 A ge:79 Y S ex:Female Date:09/19/2024 Address:[address] [place], [place] [id number] Pcp:Shelby Sandoval MD Subjective: * Chief Complaints: [...] Leal DPM Date: 11/20/2023 Generated for Herber olea/Rolando/Brendasmitting on: 0 06/05/2025 10:44 AM EDT
--- OUTSIDE RECORDS SUMMARY | 2025-03-27 05:30 | XMS_ITS ---
Author Organization [facility] Address [address] [place] [address] Care Team Providers Care Ed Transporter Name Role Phone Jaime VORA, Shelby Primary Care Provider Unavail Randy Marshall Unavailable [phone] Encounters Encounter Location Date Provider Diagnosis [address] [address] 03/27/2025 Randy Leal Plan Of Treatment Next Appt Details Provider Name:Randy Leal , 07/24/2025 02:00:00 PM, [address] [place], [address], Progress Notes * ARUNKatherineDOB: 5 (80 yo F)Acc No.[id number]:03/27/2025 Progress Note Patient: Katherine FARMER Provider: Adelina Leal DPM :1945 A ge:79 Y S ex:Female Date:03/27/2025 Address:[address] [place], [place] [id number] Pcp:Shelby Sandoval MD Subjective: * Chief Complaints: [...] 0 03/27/2025 Generated for Herber olea/Rolando/Nickoitting on: 0 06/05/2025 10:44 AM EDT
[2025-06-05 09:46] VITALS: BP 156/66; PULSE 74; O2SAT 97; BMI 37.9
--- NOTE | 2025-06-05 09:46 | A.OFFVIS_ITS ---
Vital Signs 06/05/25 09:46 Height 4 ft 9 in Weight 175 lb BMI 37.9 BP 156/66 H Blood Pressure Location Rt brachial Position Sitting Pulse 74 Pulse Source Pulse Oximeter Pulse Oximetry (%) 97 Oxygen Delivery Method Room Air Intake Visit Reasons: 2m constipation Intake Note: Est pt for mgmt of constipation, labs done. CC; C.O. LUQ pain and diarrhea intermittently. Pt denies any additional sx or concerns at this time. Records Coordinator Required: Yes Records Coordinator Services: Records Coordinator Offered & Declined Information Interpreted: clinical only Accompanied by: Daughter Allergies ibuprofen (From Motrin) Allergy (Intermediate, Verified 06/05/25 09:46) High Blood Pressure, Rash oxycodone (From Percocet) Allergy (Intermediate, Verified 06/05/25 09:46) Itching tirzepatide (From Mounjaro) Adverse Reaction (Severe, Verified 06/05/25 09:46) Diarrhea HPI HPI 2m constipation: Details: LAST VISIT: GERD (gastroesophageal reflux disease) Pancreatic insufficiency Exocrine pancreatic insufficiency Postprandial epigastric pain Postprandial abdominal bloating Plan We will change PPI to Nexium. Will check for malabsorption, check lipase, transglutaminase, thyroid study liver panel. We will recheck pancreatic last days. In the past patient had diarrhea could be falls positive results. Patient will take fiber to help her bulk stool. Eat smaller meals and more often. Avoid dietary triggers and late night snacking. Staying upright for minimal 3 hours after meals discussed with patient. Follow-up in 2 months, sooner on as needed b asis. She is agreeable to this plan and verbalizes understanding of instructions. She was given the opportunity to ask questions and all questions answered. ? Thank you for allowing me to participate in her care Orders Vitamin D 25-OH (D2 and D3) 04/03/25 E55.9 Lipase 04/03/25 R10.9 Transglutaminase IgA 04/03/25 R10.9 Vitamin B12 and Folate 04/03/25 R19.7 TSH reflex Free T4 04/03/25 K59.00 Liver Panel 04/03/25 R74.01 Pancreatic Elastase-1 04/09/25 R10.9 New esomeprazole magnesium (Nexium) 40 mg PO DAILY 30 caps 2RF K21.9 methylcellulose (laxative) (Citrucel) take it with full glass of water 500 mg PO DAILY 90 tabs 2RF K59.00 Discontinued omeprazole Discontinued Reason: Doctor's Order 40 mg PO DAILY 30 caps 0RF TODAY'S VISIT Patient is here today for follow-up. Patient is accompanied by her daughter. Patient continues to have a left upper quadrant pain. All her lab work discussed with patient and her daughter. Everything to came back normal. Patient still have postprandial abdominal blade being and loose stools. Patient's daughter reports that she is not following low FODMAP diet. Patient is eating lots of bread but not much fiber in her diet. Patient did not get fiber from pharmacy. Patient's daughter thought that taking fiber supplement will worsen her diarrhea. Education provided about fiber. Reflux controlled with Nexium. Patient denies any dyspepsia, dysphagia or odynophagia. Denies a ny melena, hematochezia, unintentional weight loss or ribbon like stools. 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 Aortic stenosis CKD (chronic kidney disease) stage 3, GFR 30-59 ml/min Dyslipidemia Diabetic polyneuropathy associated with type 2 diabetes mellitus Diabetic nephropathy associated with type 2 diabetes mellitus Chronic kidney disease Hypertension Asthma Thalamic pain syndrome GERD (gastroesophageal reflux disease) Morbid obesity Surgical History H/O colonoscopy H/O aortic valve replacement History of breast lump/mass excision History of tubal ligation History of cholecystectomy Family History Sister History of renal pelvis cancer Father Suicide Mother Lung disease Diabetes mellitus Social History Household Members: Family Housing: House Do you presently have visiting nurse or other home services: Yes (driller operator) Alcohol intake: never Comment: pt stays with pt. Patient Tobacco Use Status: Former Tobacco user Tobacco use type: Cigarette Years Smoked: 5 years e-Cigarette/Vaping Use: Never Used Second Hand Smoke Exposure: No service: No Current occupational status: unemployed and disabled Gender identity: Female Cognitive needs: Yes Hearing needs: No Vision needs: No Female Reproductive History Menstrual Age of Menarche: 10 Physical Exam Vital Signs: Last Vital Signs Pulse 74 06/05/25 09:46 BP 156/66 H 06/05/25 09:46 Pulse Ox 97 06/05/25 09:46 Oxygen Delivery Method Room Air 06/05/25 09:46 BMI result Body Mass Index 37.9 Const General: healthy appearing and no acute distress Nutritional Appearance: obese Orientation/consciousness: patient oriented x3 Resp Effort & Inspection: normal respiratory effort, able to speak in complete sentences, no tracheal deviation and symmetric chest movement Auscultation: clear to auscultation bilaterally Cardio Rate: regular rate GI Inspection: Yes normal to inspection, No distended and Yes obesity Palpation (GI): Soft to palpation, not firm, nontender and No hepatosplenomegaly present Auscultation: normal bowel sounds General: Yes no CVA tenderness Back/Spine/Pelvis Back: no CVA tenderness Skin General skin exam: elasticity normal, turgor normal and dry skin Neuro General: patient oriented x3 Psych Appearance: grossly normal Mental Status: mental status grossly normal Results Reviewed Results Reviewed: Laboratory Tests 08/14/22 12/14/22 04/03/25 10:00 14:32 16:30 Total Protein 7.1 Albumin 3.7 Lipase 40 45 Vitamin B12 267 25-OH Vitamin D Total 42 Folate 14.6 TSH 1.33 Stool Pancreat Elastase 115 L Tiss Transglutamin IgA <1.0 04/09/25 08:22 Total Protein Albumin Lipase Vitamin B12 25-OH Vitamin D Total Folate TSH Stool Pancreat Elastase 208 Tiss Transglutamin IgA Assessment & Plan Assessment & Plan (1) GERD (gastroesophageal reflux disease): Code(s): K21.9 - Gastro-esophageal reflux disease without esophagitis Category: Medical Qualifiers: Esophagitis presence: esophagitis presence not specified Qualified Cod e(s): K21.9 - Gastro-esophageal reflux disease without esophagitis (2) Abdominal pain, LUQ (left upper quadrant): Code(s): R10.12 - Left upper quadrant pain (3) Postprandial diarrhea: Code(s): K52.9 - Noninfective gastroenteritis and colitis, unspecified (4) Postprandial abdominal bloating: Code(s): R14.0 - Abdominal distension (gaseous) Plan Patient will continue taking Nexium. Avoid dietary triggers in late night s nacking. Staying upright for minimum 3 hours after meals discussed with patient. A shunt will take [id number] 5 works to help control the diarrhea. Long discussion with patient and her daughter about the importance of fiber and fiber helping bulk the stool. May use 1-2 capsules daily. Discussed with patient low FODMAP diet again and trying to stay away from bread and lactose. May use simethicone as needed. Patient will follow-up in 2-3 months, sooner on as needed basis. Patient is agreeable to this plan and verbalizes understanding of instructions. She was given the opportunity to ask questions and all questions answered. Thank you for allowing me to participate in her care Medications: Changed From simethicone (Gas Relief (simethicone)) 250 mg (2 x 125 mg) PO BID 90 days PRN 180 caps 0RF abdominal distention To simethicone (Gas Relief (simethicone)) 125 mg PO BID PRN 180 caps 0RF abdominal distention 90 days Coding Level of Care Code Est Pt Level 4 (36220) Complex EM visit Add On G2211 Diagnoses Gastroesophageal reflux disease, unspecified whether esophagitis present K21.9 Esophagitis presence: esophagitis presence not specified Abdominal pain, LUQ (left upper quadrant) R10.12 Postprandial diarrhea K52.9 Postprandial abdominal bloating R14.0 Time Spent (min) 35 Comment 25 minutes spent with patient and additional 10 minutes spent reviewing her records
--- OUTSIDE RECORDS SUMMARY | 2025-06-05 10:43 | XMS_ITS | Encounter Summary ---
Author Organization [employer] [facility] Address [address] [place] [address] [address]t [place] [address] Care Team Providers Care Inker Machine Name Role Phone Marycarmen Quijano MD Primary Care Provider Reason for Visit * Reason Comments Med Refill Encounter Details Date Type Department Care Team ([facility] Contact Info) Description 02/06/2023 Refill [facility] MEDICINE [address] [place] [address] Marycarmen Quijano MD [address] [place] [address] Social History Tobacco Use Types Packs/Day Years [...] Care Team ([facility] Contact Info) Description 07/25/2025 10:00 AM EDT Office Visit [facility] ADULT DENTAL [address] [place] [address] RadhaJohana [address] [place] [address] documented as of this encounter Visit Diagnoses Not on filedocumented in this encounter Care Teams Inker Machine Relationship Specialty Start Date End Date Marycarmen Quijano MD [address] [place] [address] PCP - General Family Medicine 03/02/23 06/20/23 documented as of this encounter
--- OUTSIDE RECORDS SUMMARY | 2025-06-05 10:43 | XMS_ITS | Encounter Summary ---
Author Organization [employer] Address [address] [place] [address] 7t [place] [address] Care Team Providers Care Bowling Or Skating Front Desk Clerk Name Role Phone Marycarmen Quijano MD Primary Care Provider [phone] Reason for Visit * Reason Comments Med Refill Encounter Details Date Type Department Care Team ([facility] Contact Info) Description 03/10/[address] [facility] MED & PEDS [address] [place], [place] [phone] Marycarmen Quijano MD [address] [place] [address] Primary hypertension Social History Tobacco Use Types [...] Encounters Date Type Department Care Team ([facility] Contact Info) Description 07/25/2025 10:00 AM EDT Office Visit [facility] ADULT DENTAL [address] [place] [address] Santos Garciaaris [address] [place] [address] documented as of this encounter Visit Diagnoses Diagnosis Primary hypertension Unspecified essential hypertension documented in this encounter Care Teams Bowling Or Skating Front Desk Clerk Relationship Specialty Start Date End Date Marycarmen Quijano MD [address] [place] [address] PCP - General Family Medicine 03/02/23 06/20/23 documented as of this encounter
--- OUTSIDE RECORDS SUMMARY | 2025-06-05 10:43 | XMS_ITS | Encounter Summary ---
Author Organization [email or web address] [facility] Address [address] [place] [address] 7t [place] [address] Care Team Providers Care Java Android Developer Name Role Phone Marycarmen Quijano MD Primary Care Provider [phone] Reason for Visit * Reason Comments Med Refill Encounter Details Date Type Department Care Team ([facility] Contact Info) Description 04/15/2023 Refill [facility] MEDICINE [address] [place] [address] Marycarmen Quijano MD [address] [place] [address] Social History Tobacco Use Types Packs/Day Years [...] Upcoming Encounters Date Type Department Care Team ([facility] Contact Info) Description 07/25/2025 10:00 AM EDT Office Visit [facility] ADULT DENTAL [address] [place] [address] RadhaJohana [address] [place] [address] documented as of this encounter Visit Diagnoses Not on filedocumented in this encounter Care Teams Java Android Developer Relationship Specialty Start Date End Date Marycarmen Quijano MD [address] [place] [address] PCP - General Family Medicine 03/02/23 06/20/23 documented as of this encounter
--- OUTSIDE RECORDS SUMMARY | 2025-06-05 10:43 | XMS_ITS | Encounter Summary ---
Author Organization [employer] Address [address] [place] [address] 7t [place] [address] Care Team Providers Care Farmworker Chicken Farm Name Role Phone Marycarmen Quijano MD Primary Care Provider [phone] Reason for Visit * Reason Comments Med Refill Encounter Details Date Type Department Care Team ([facility] Contact Info) Description 03/03/2023 Refill [facility] CHC MED & PEDS [address] [place], [place] [phone] Marycarmen Quijano MD [address] [place] [address] Primary hypertension Social History Tobacco Use Types [...] Encounters Date Type Department Care Team ([facility] Contact Info) Description 07/25/2025 10:00 AM EDT Office Visit [facility] ADULT DENTAL [address] [place] [address] RadhaJohana [address] [place] [address] documented as of this encounter Visit Diagnoses Diagnosis Primary hypertension Unspecified essential hypertension documented in this encounter Care Teams Farmworker Chicken Farm Relationship Specialty Start Date End Date Marycarmen Quijano MD [address] [place] [address] PCP - General Family Medicine 03/02/23 06/20/23 documented as of this encounter
--- OUTSIDE RECORDS SUMMARY | 2025-06-05 10:43 | XMS_ITS | Encounter Summary ---
Author Organization [employer] Address [address] [facility] [address] [place] [address] Care Team Providers Care Banjo Repairer Name Role Phone Marycarmen Quijano MD Primary Care Provider [phone] Reason for Visit * Reason Comments Med Refill Encounter Details Date Type Department Care Team ([facility] Contact Info) Description 04/12/2023 Refill [facility] [address] [place] [address] Jose Johnson MD [address] [place] [address] Social History Tobacco Use Types Packs/Day Years [...] 10:00 AM EDT Office Visit [facility] ADULT DENT[facility] [address] [place] [address] RadhaJohana [address] [place] [address] documented as of this encounter Visit Diagnoses Not on filedocumented in this encounter Care Teams Banjo Repairer Relationship Specialty Start Date End Date Marycarmen Quijano MD [address] [place] [address] PCP - General Family Medicine 03/02/23 06/20/23 documented as of this encounter
--- OUTSIDE RECORDS SUMMARY | 2025-06-05 10:43 | XMS_ITS | Encounter Summary ---
Author Organization [employer] [facility] Address [address] [place] [address] 7t [place] [address] Care Team Providers Care Tractor Operator Name Role Phone Marycarmen Quijano MD Primary Care Provider [phone] Reason for Visit * Reason Comments Med Refill Encounter Details Date Type Department Care Team ([facility] Contact Info) Description 04/04/2023 Refill [facility] MEDICINE [address] [place] [address] Marycarmen Quijano MD [address] [place] [address] Social History Tobacco Use Types Packs/Day Years [...] Upcoming Encounters Date Type Department Care Team ([facility] Contact Info) Description 07/25/2025 10:00 AM EDT Office Visit [facility] ADULT DENTAL [address] [place] [address] RadhaJohana [address] [place] [address] documented as of this encounter Visit Diagnoses Not on filedocumented in this encounter Care Teams Tractor Operator Relationship Specialty Start Date End Date Marycarmen Quijano MD [address] [place] [address] PCP - General Family Medicine 03/02/23 06/20/23 documented as of this encounter
--- OUTSIDE RECORDS SUMMARY | 2025-06-05 10:43 | XMS_ITS | Encounter Summary ---
Author Organization [employer] Address [address] [place] [address] [address]t [place] [address] Care Team Providers Care Quarter Doper Name Role Phone Marycarmen Quijano MD Primary Care Provider [phone] Reason for Visit * Reason Comments Med Refill Encounter Details Date Type Department Care Team ([facility] Contact Info) Description 03/07/2023 Refill [facility] CH[facility] MED & PEDS [address] [place], [place] [phone] Marycarmen Quijano MD [address] [place], [place] [phone] Social History Tobacco Use Types Packs/Day Years [...] Upcoming Encounters Date Type Department Care Team ([facility] Contact Info) Description 07/25/2025 10:00 AM EDT Office Visit [facility] ADULT DENTAL [address] [place] [address] Radha, Johana [address] [place] [address] documented as of this encounter Visit Diagnoses Not on filedocumented in this encounter Care Teams Quarter Doper Relationship Specialty Start Date End Date Marycarmen Quijano MD [address] [place] [address] PCP - General Family Medicine 03/02/23 06/20/23 documented as of this encounter
--- OUTSIDE RECORDS SUMMARY | 2025-06-05 10:44 | XMS_ITS | Clinical Summary ---
Author Organization [employer] Address [address] [place] [address] 7t [place] [address] Care Team Providers Care Fiberglass Technician Name Role Phone Unavailable Primary Care [...] BEDTIME 2 Active Blood Glucose Monitoring Suppl ([employer] NetworksStyle Clearfield Lite) w/Device kit TEST BLOOD SUGAR THREE [...] by mouth at bed time. Active Creon 92872-77913 units capsule 3 Active pantoprazole (ProtoNix) 40 [...] 3 Active ergocalciferol (Vitamin D2) 1.25 MG (73363 UT) capsule TAKE 1 CAPSULE BY MOUTH [...] Description 05/29/2025 1:20 PM EDT Office Visit [facility] [address] [place] [address] Christianne John MD Diarrhea, unspecified type (Primary Dx) 05/29/2025 Telephone [facility] [address] [place] [address] Christianne John MD 05/29/2025 Orders [...] Office Visit [facility] ADULT DENTAL [address] [place] [address] Johana Garcia [address] [place] [address] Health Maintenance Due Date Last Done Comments [...] Blood Count 14.5(H) 4.8 - 10.8 X10*3/uL [facility] Red Blood Count 4.98 4.20 - 5.50 X10*6/uL [facility] Hemoglobin 12.4 12.0 - 16.0 g/dl [facility] Hematocrit 38.9 37.0 - 47.0 % [facility] Mean Corpuscular Volume 78.1(L) 80.0 - 98.0 fL [facility] Mean Corpuscular Hemoglobin 24.9(L) 27.0 - 33.0 pg [facility] Mean Corpuscular HGB Conc 31.9 31.0 - 35.0 g/dl [facility] Red Cell Distribution Width 15.6 11.0 - 16.0 % [facility] Platelet Count 417(H) 160 - 400 X10*3/uL [facility] Mean Platelet Volume 9.5 9.4 - 12.3 fL [facility] Neutrophils Percent Auto 76.6(H) 45 - 73 % [facility] Imm Gran Pct Auto 0.4 0.0 - 0.4 % [facility] Lymphocytes Percent Auto 15.5(L) 20 - 40 % [facility] Monocytes Percent Auto 5.5 2 - 11 % [facility] Eosinophils Percent Auto 1.5 0 - 4 % [facility] Basophils Percent Auto 0.5 0 - 2 % [facility] NRBC Pct Auto 0.0 0.0 - 0.2 /100WBC [facility] Neutrophils Absolute Auto 11.1(H) 2.0 - 8.3 x10*3/uL [facility] Imm Gran Abs Auto 0.06(H) 0.00 - 0.03 X10*3/uL [facility] Lymphocytes Absolute Auto 2.3 1.2 - 4.9 X10*3/uL [facility] Monocytes Absolute Auto 0.8 0.1 - 1.2 X10*3/uL [facility] Eosinophils Absolute Auto 0.2 0.0 - 0.4 X10*3/uL [facility] Basophils Absolute Auto 0.1 0.0 - 0.2 X10*3/uL [facility] NRBC Abs Auto 0.000 0.0 - 0.012 X10*3/uL [facility] Blood Venous blood specimen / Unknown 05/29/2025 2:12 PM EDT 05/29/2025 3:57 PM EDT Christianne John MD LAB BLOOD ORDERABLES Final Result Performing Organization Address [facility]/ZIP Co de Phone Number [facility] [address] [place] [phone] * (ABNORMAL) C-reactive Protein (05/29/2025 2:12 PM EDT) Pathologist [facility] C Reactive Protein 2.65(H) < or = 0.50 mg/dL [facility] Blood Venous blood specimen / Unknown 05/29/2025 2:12 PM EDT 05/29/2025 3:57 PM EDT Christianne John MD LAB BLOOD ORDERABLES Final Result Performing Organization Address [facility]/ZIP Co de Phone Number [facility] [address] [place] [phone] * (ABNORMAL) Basic Metabolic Panel (05/29/2025 2:12 PM EDT) Only the most recent of2 resultswithin the time period is included. Pathologist [facility] Sodium 141 135 - 145 mmol/L [facility] Potassium 4.3 3.3 - 5.1 mmol/L [facility] Chloride 107 96 - 108 mmol/L [facility] Carbon Dioxide 24 22 - 29 mmol/L [facility] Anion Gap 14 12 - 20 [facility] Urea Nitrogen (BUN) 20(H) 9 - 16 mg/dL [facility] Creatinine, Serum 1.53(H) 0.5 - 1.4 mg/dL [facility] Estimated Glomerular Filt Rate 33 [facility] Comment:Chronic Kidney Disea se: Estimated GFR < 60 mL/min/[id number] Kidney Disease: Estimated GFR < 15 mL/min/1.73m2 Glucose 117(H) 60 - 115 mg/dL [facility] Calcium 9.8 8.4 - 10.2 mg/dL [facility] 05/29/2025 2:12 PM EDT 05/29/2025 3:57 PM EDT Generic External Data Provider LAB BLOOD ORDERAB LES Final Result [facility] [address] [place] [phone] * POCT Influenza B manually resulted (05/29/2025 2:04 PM EDT) [facility] Rapid Influenza B Ag Negative Negative, Indeterminate QC Media Lot # [id number] Lot# Expiration Date [id number] Swab 05/29/2025 2:04 PM EDT Result [facility] Christianne John MD POINT OF CARE TEST ENTER/E DIT ORDERABLES Final Result * POCT Influenza A manually resulted (05/29/2025 2:04 PM EDT) [facility] Rapid Influenza A Ag Negative Negative, Indeterminate QC Media Lot # [id number] Lot# Expiration Date [id number] Swab Nasopharyngeal structure / Unknown 05/29/2025 2:04 PM EDT Christianne John MD POINT OF CARE TEST ENTER/E DIT ORDERABLES Final Result * POCT Rapid COVID Ag (05/29/2025 2:03 PM EDT) [facility] Rapid COVID Ag Negative QC Media Lot # [id number] Lot# Expiration Date [id number] Swab 05/29/2025 2:03 PM EDT Christianne John MD POINT OF CARE TEST ENTER/E DIT ORDERABLES Final Result * HEMOGLOBIN A1C (07/09/2022 10:40 AM EDT) Estimated Average Glucose 151 mg/dL [facility] Comment: eAG = Estimated average glucose which is %A1C expressed as average glucose, using the formula of the [id number] Average Glucose study (ADAG), Diabetes Care, Vol.31,#8, [...] [facility] Comment: Desirable LDL: less than [...] [facility] Comment: NOTE: For -[place] individuals, multiply the result by 1.210. Chronic [...] Historical Provider HISTORICAL/NON ORDERABLE LABS Final Result [facility] [address] from Last 3 Months or Most Recently Relevant to Health Maintenance Insurance [employer] (HMO D-SNP) D[facility]AL [facility]
--- OUTSIDE RECORDS SUMMARY | 2025-06-05 10:44 | XMS_ITS | Patient Health Record ---
Author Organization [facility] Address [address] [place] [address] Care Team Providers Care Validation Analyst Name Role Phone Jaime VORA, Shelby Primary Care Provider Unavail able Randy Leal Unavailable [phone] Allergies Allergen (clinical drug ingredient) Drug/Non Drug [...] Problem Acquired hammer toe of right foot ([id number]) Other hammer toe(s) (acquired), right foot (M20.41) Active confirmed Problem Acquired hammer toe of left foot ([id number]) Other hammer toe(s) (acquired), left foot (M20.42) Active confirmed Problem Type 2 diabetes mellitus with diabetic polyneuropathy (E11.42) Active confirmed Vital Signs Blood pressure diastolic 65 mm Hg 04/24/2025 Height 4 ft 9 in in 04/24/2025 Blood pressure systolic 128 mm Hg 04/24/2025 Weight 182 lbs 04/24/2025 BMI 39.38 kg/m2 04/24/2025 Procedures Procedure Date Ordered Date Performed Result Body Sit e 17979-NZSXKQZ NAIL, 6 OR MORE 06/16/2024 N/A 46390-ETKR SKIN LESIONS, 2 TO 4 06/16/2024 N/A 06075-NPTTKQL NAIL, 6 OR MORE 12/26/2024 N/A 49321-Kagpuddg Plate 12/26/2024 N/A 36206-EJID SKIN LESIONS, 2 TO 4 12/26/2024 N/A 26968-HFXGGFR NAIL, 6 OR MORE 04/24/2025 N/A 63377-GYMI SKIN LESIONS, 2 TO 4 04/24/2025 N/A Encounters Encounter Location Date Provider Diagnosis [facility] [place] [address] [place] [address] 06/16/2024 Randy Leal Type 2 diabetes mellitus with diabetic polyneuropathy E11.42 and Tinea unguium B35.[address] [address] 12/26/2024 Randy Leal Type 2 diabetes mellitus with diabetic polyneuropathy E11.42 ; Tinea unguium B35.1 ; Other hammer toe(s) (acquired), right foot M20.41 ; Other hammer toe(s) (acquired), left foot M20.42 and Subungual hematoma of left foot, initial encounter S90.222A [address] [address] 04/24/2025 Randy Leal Type 2 diabetes mellitus with diabetic polyneuropathy E11.42 ; Tinea unguium B35.1 and Xerosis of skin L85.[address] [address] 09/19/2024 Randy Leal [address] [address] 12/26/2024 [facility] [address] [address] 03/27/2025 Randy Leal Assessments Encounter Date Diagnosis [...] Treatment Pending Test Test Name Order Date 81744-[id number] NAIL, 6 OR MORE 03/17/2024 01260-JKELQVM NAIL, 6 OR MORE 06/16/2024 29670-CYMKGXH NAIL, 6 OR MORE 12/26/2024 06086-ALFBANQ NAIL, 6 OR MORE 04/24/2025 83355-Fyekziho Plate 12/26/2024 30889-ERVC SKIN LESIONS, 2 TO 4 04/24/20 74653-IWDG SKIN LESIONS, 2 TO 4 12/27/19 32823-WVYG SKIN LESIONS, 2 TO 4 06/16/20 75753-NPZV SKIN LESIONS, 2 TO 4 03/17/20 Next Appt Details Provider Name:Randy Leal , 07/24/2025 02:00:00 PM, [address] [facility], [place], [address], Insurance Providers Payer Name Payer Address Payer Phone Subscriber Number Group Number Insured Name Patient Relationship to Insured Coverage Start Date Coverage End Date [facility] [employer] Claims [address] [facility] [place] [phone] [id number] Katherine Jamil Self - patient is the insured Medical (General) History Medical History History ICD Code Anxiety Arthritis asthma Back,Hip,and Knee pain CAD (Cholesterol) Cataracts Depression Diabetic Heart disease High blood pressure Kidney disease Lung disease Numbness Poor circulation Reflux ( GERD) sinusitis Vascular phlebitis (clots) Chicken pox Replacement Heart Valves Transfusions Surgical History Surgery Date(Month/Year)
--- OUTSIDE RECORDS SUMMARY | 2025-06-05 10:44 | XMS_ITS | Encounter Summary ---
Author Organization [facility] Address [address] [place] [address] 7t [place] [address] Care Team Providers Care Peanut Vendor Name Role Phone Unavailable Primary Care Provider Unavailabl e Reason for Visit * Reason Comments Med Refill Encounter Details Date Type Department Care Team (Late st Contact Info) Description 12/02/2023 Refill [facility] [address] [place] [address] Christianne John MD [address] [place] [address] Moderate persistent asthma, unspecified whether complicated Social [...] Visit [facility]ULT [facility] [address] [place] [address] Radha, Johana [address] [place] [address] documented as of this encounter Visit Diagnoses Diagnosis Moderate persistent asthma, unspecified whether complicated documented in this encounter
--- OUTSIDE RECORDS SUMMARY | 2025-06-05 10:44 | XMS_ITS | Encounter Summary ---
Author Organization [employer] [facility] Address [address] [place] [address] 7t [place] [address] Care Team Providers Care Cycle Liaison Name Role Phone Marycarmen Quijano MD Primary Care Provider [phone] Reason for Visit * Reason Comments Med Refill Encounter Details Date Type Department Care Team ([facility] Contact Info) Description 04/15/2023 Refill [facility] [address] [place] [address] Marycarmen Quijano MD [address] [place] [address] Social History Tobacco Use Types Packs/Day Years [...] Upcoming Encounters Date Type Department Care Team ([facility] Contact Info) Description 07/25/2025 10:00 AM EDT Office Visit [facility] ADULT DENTAL [address] [place] [address] RadhaJohana [address] [place] [address] documented as of this encounter Visit Diagnoses Not on filedocumented in this encounter Care Teams Cycle Liaison Relationship Specialty Start Date End Date Marycarmen Quijano MD [address] [place] [address] PCP - General Family Medicine 03/02/23 06/20/23 documented as of this encounter
--- OUTSIDE RECORDS SUMMARY | 2025-06-05 10:44 | XMS_ITS | Encounter Summary ---
Author Organization [facility] Address [address] [place] [address] 7t [place] [address] Care Team Providers Care Automobile Racer Name Role Phone Unavailable Primary Care Provider Unavailabl e Reason for Visit * Reason Comments Med Refill Encounter Details Date Type Department Care Team (Late st Contact Info) Description 11/24/2023 Refill [facility] [address] [place] [address] Christianne John MD [address] [place] [address] Moderate persistent asthma, unspecified whether complicated Social [...] 07/25/2025 10:00 AM EDT Office Visit [facility] ADULT DENTAL [address] [place] [address] Radha, Johana [address] [place] [address] documented as of this encounter Visit Diagnoses Diagnosis Moderate persistent asthma, unspecified whether complicated documented in this encounter
--- OUTSIDE RECORDS SUMMARY | 2025-06-05 10:44 | XMS_ITS | Clinical Summary ---
Author Organization [facility] Address [address] [address] Phone Care Team Providers Care Clerk General Name Role Phone Marycarmen Quijano MD Primary Care Provider [phone] Allergies Active Allergy Reactions Criticality Noted Date [...] day Active ergocalciferol (VITAMIN D-2) 1.25 MG (93574 UT) capsule Take 1 capsule by mouth [...] failure 01/28/2021 Atherosclerotic heart diseas e of [place] coronary artery without angina pectoris 01/28/2021 Chronic [...] arteriosclerosis 07/11/2012 Overview (12/07/2022): Cath 01/2010 at [facility] showed LCx 80% and ostial [...] Only [facility] [address] [address] Alycia Rios ARNP Stage 3b [...] A1C 8.5(H) <5 % PVN[facility] Comments From [facility] PVNMA Creatinine 1.35(H) 0.70 - 1.30 mg/dl PVN[facility] Potassium 4.5 3.5 - 5.1 mmol/L PVNMA Calcium 8.8 8.4 - 10.2 mg/dl PVNMA eGFR Non- 38(L) >60 ml/min PVNMA 09/18/2020 us [facility] [id number] LICITED RESULTS Final Result PVNMA from Last 3 Months or Most Recently Relevant to Health Maintenance Insurance [facility] ([id number]) [facility] MCR ([id number]) [place] FRAN[place] [phone] Care Teams Clerk General Relationship Specialty Start Date End Date Marycarmen Quijano MD [address] [place] [address] PCP - General 10/14/20
--- OUTSIDE RECORDS SUMMARY | 2025-06-05 10:44 | XMS_ITS | Encounter Summary ---
Author Organization [email or web address] [facility] Address [address] [place] [address] [address] [place] [address] Care Team Providers Care Kettle Loader Name Role Phone Marycarmen Quijano MD Primary Care Provider [phone] Marycarmen Quijano MD Primary Care Provider [phone] Reason for Visit * Reason Comments Med Refill Encounter Details Date Type Department Care Team (Late st Contact Info) Description 11/10/2022 Refill [facility] [address] [place], [place] [phone] Marycarmen Quijano MD [address] [place], [place] [phone] Social History Tobacco Use Types Packs/Day Years [...] Description 07/25/2025 10:00 AM EDT Office Visit [facility] ADULT DENTAL [address] [place], [place] [phone] Radha, Johana [address] [place] [address] documented as of this encounter Visit Diagnoses Not on filedocumented in this encounter Care Teams Kettle Loader Relationship Specialty Start Date End Date Marycarmen Quijano MD [address] [place] [address] PCP - General Family Medicine 07/26/13 02/01/23 Marycarmen Quijano MD [address] [place] [address] PCP - General Family Medicine 03/02/23 06/20/23 documented as of this encounter
--- OUTSIDE RECORDS SUMMARY | 2025-06-05 10:44 | XMS_ITS | Encounter Summary ---
Author Organization [employer] [facility] Address [address] [place] [address] 7t [place] [address] Care Team Providers Care Csw Name Role Phone Unavailable Primary Care Provider Unavailabl e Reason for Visit * Reason Comments Med Refill Encounter Details Date Type Department Care Team (Late st Contact Info) Description 12/01/2023 Refill [facility] [address] [place] [address] Christianne John MD [address] [place] [address] Moderate persistent asthma, unspecified whether complicated Social [...] Description 07/25/2025 10:00 AM EDT Office Visit [facility] ADULT DENT[facility] [address] [place] [address] Radha, Johana [address] [place] [address] documented as of this encounter Visit Diagnoses Diagnosis Moderate persistent asthma, unspecified whether complicated documented in this encounter
--- OUTSIDE RECORDS SUMMARY | 2025-06-05 10:44 | XMS_ITS | Encounter Summary ---
Author Organization [employer] [facility] Address [address] [place] [address] 7t [place] [address] Care Team Providers Care Government Program Manager Name Role Phone Marycarmen Quijano MD Primary Care Provider [phone] Marycarmen Quijano MD Primary Care Provider [phone] Encounter Details Date Type Department Care Team (Latest Contact Info) Description 06/16/2021 Abstract [facility] Dental, Provider, DDS Social History Tobacco [...] Visit [facility]ULT [facility] [address] [place] [address] Radha, Johana [address] [place] [address] documented as of this encounter Visit Diagnoses Not on filedocumented in this encounter Care Teams Government Program Manager Relationship Specialty Start Date End Date Marycarmen Quijano MD [address] [place] [address] PCP - General Family Medicine 07/26/13 02/01/23 Marycarmen Quijano MD [address] [place] [address] PCP - General Family Medicine 03/02/23 06/20/23 documented as of this encounter
--- OUTSIDE RECORDS SUMMARY | 2025-06-05 10:44 | XMS_ITS | Encounter Summary ---
Author Organization [facility] Address [address] [place] [address] 7t [place] [address] Care Team Providers Care Seamer Name Role Phone Unavailable Primary Care Provider Unavailabl e Reason for Visit * Reason Comments Med Refill Encounter Details Date Type Department Care Team (Late st Contact Info) Description 01/19/2024 Refill [facility] [address] [place] [address] Christianne John MD [address] [place] [address] Vitamin deficiency Social History Tobacco Use Types [...] Description 07/25/2025 10:00 AM EDT Office Visit [facility] ADULT DENTAL [address] [place] [address] Santos Garciaaris [address] [place] [address] documented as of this encounter Visit Diagnoses Diagnosis Vitamin deficiency Unspecified vitamin deficiency documented in this encounter
--- OUTSIDE RECORDS SUMMARY | 2025-06-05 10:44 | XMS_ITS | Encounter Summary ---
Author Organization [employer] [facility] Address [address] [place] [address] 7t [place] [address] Care Team Providers Care Burial Needs Salesperson Name Role Phone Unavailable Primary Care Provider Unavailabl e Reason for Visit * Reason Comments Med Refill Encounter Details Date Type Department Care Team (Late st Contact Info) Description 11/29/2023 Refill [facility] [address] [place] [address] Christianne John MD [address] [place] [address] Moderate persistent asthma, unspecified whether complicated Social [...] Description 07/25/2025 10:00 AM EDT Office Visit [facility] ADULT D[facility] [address] [place] [address] Radha, Johana [address] [place] [address] documented as of this encounter Visit Diagnoses Diagnosis Moderate persistent asthma, unspecified whether complicated documented in this encounter
== END 2025-06-05 10:19 | disposition home or self-care (01) ==
LOC: HO.HGI 09:39
PROVIDERS: PCP Internal Medicine; Visit Provider Nurse Practitioner Family
DX: K21.9 Gastro-esophageal reflux disease without esophagitis (principal); R10.12 Left upper quadrant pain; K52.9 Noninfective gastroenteritis and colitis, unspecified; R14.0 Abdominal distension (gaseous)
CPT/HCPCS: 99214; G2211

== ENCOUNTER → 2025-06-05 09:38 | Outpatient (BNVA) | payer OTHER, SELFPAY | PROVIDERS: PCP Internal Medicine; Visit Provider Nurse Practitioner Family | DX: R10.12 Left upper quadrant pain (principal); R14.0 Abdominal distension (gaseous); K21.9 Gastro-esophageal reflux disease without esophagitis; K52.9 Noninfective gastroenteritis and colitis, unspecified | CPT/HCPCS: 99212 ==

== ENCOUNTER 2025-06-18 09:28 | Outpatient (AMB) | payer OTHER, SELFPAY ==
--- OUTSIDE RECORDS SUMMARY | 2024-09-19 06:00 | XMS_ITS ---
Author Organization [facility] Address [address] [place] [address] Care Team Providers Care Machine Candle Molder Name Role Phone Jaime VORA, Shelby Primary Care Provider Unavail Randy Marshall Unavailable [phone] Encounters Encounter Location Date Provider Diagnosis [address] [address] 09/19/2024 Randy Leal Plan Of Treatment Next Appt Details Provider Name:Randy Leal , 07/24/2025 02:00:00 PM, [address] [place], [address], Progress Notes * ARUNKatherineDOB: 5 (80 yo F)Acc No.[id number]:09/19/2024 Progress Note Patient: Katherine FARMER Provider: Adelina Leal DPM :1945 A ge:79 Y S ex:Female Date:09/19/2024 Address:[address] [place], [place] [phone] Pcp:Shelby Sandoval MD Subjective: * Chief Complaints: [...] 11/20/2023 Generated for Herber olea/Rolando/Brendasmitting on: 0 06/18/2025 11:22 AM EDT
--- OUTSIDE RECORDS SUMMARY | 2025-03-27 05:30 | XMS_ITS ---
Author Organization [facility] Address [address] [place] [address] Care Team Providers Care Geothermal Hvac Technician Name Role Phone Jaime VORA, Shelby Primary Care Provider Unavail Randy Marshall Unavailable [phone] Encounters Encounter Location Date Provider Diagnosis [address] [address] 03/27/2025 Randy Leal Plan Of Treatment Next Appt Details Provider Name:Randy Leal , 07/24/2025 02:00:00 PM, [address] [place], [address], Progress Notes * ARUNKatherineDOB: 5 (80 yo F)Acc No.[id number]:03/27/2025 Progress Note Patient: Katherine FARMER Provider: Adelina Leal DPM :1945 A ge:79 Y S ex:Female Date:03/27/2025 Address:[address] [place], [place] [phone] Pcp:Shelby Sandoval MD Subjective: * Chief Complaints: [...] 03/27/2025 Generated for Herber olea/Rolando/Nickoitting on: 0 06/18/2025 11:22 AM EDT
--- NOTE | 2025-06-18 09:40 | HO.NEPHOV_ITS ---
Vital Signs 06/18/25 09:41 Height 4 ft 9 in Weight 181 lb BMI 39.2 BP 128/50 L Blood Pressure Location Rt brachial Position Sitting Pulse 64 Pulse Source Pulse Oximeter Pulse Oximetry (%) 98 Oxygen Delivery Method Room Air Intake Visit Reasons: 3 month follow up-Conf Grease Refiner Operator Required: No Grease Refiner Operator Services: Grease Refiner Operator Offered & Declined (Daughter will translate) Accompanied by: Daughter Allergies ibuprofen (From Motrin) Allergy (Intermediate, Verified 06/18/25 09:44) High Blood Pressure, Rash oxycodone (From Percocet) Allergy (Intermediate, Verified 06/18/25 09:44) Itching tirzepatide (From Mounjaro) Adverse Reaction (Severe, Verified 06/18/25 09:44) Diarrhea Medication List - Last Reconciled 06/18/25 by Bam Barragan MD acetaminophen ER 1,300 mg (2 x 650 mg) PO Q8H PRN 30 days albuterol sulfate 90 mcg/actuation 2 inhalations inhalation Q6H PRN 30 days amlodipine 10 mg PO DAILY aspirin 81 mg PO BEDTIME 90 days atorvastatin 80 mg PO BEDTIME 90 days blood pressure monitor As directed blood sugar diagnostic (FreeStyle Lite Strips) Use daily As directed to check blood glucose blood sugar diagnostic (FreeStyle Lite Strips) 3times a day blood-glucose meter (FreeStyle Waldo Lite kit) As directed blood-glucose meter (FreeStyle Lite Meter kit) Use daily As directed to check blood sugars blood-glucose sensor (Dexcom G7 Sensor device) Use daily As directed to monitor blood glucose. Change q 10 days blood-glucose,sem manager,cont (Dexcom G7 Lead Informatica Developer) use daily As directed to monitor blood glucose brimonidine 0.2% 1 drp ophthalmic (eye) TID calcium acetate(phosphat bind) 667 mg PO BID 90 days cane As directed cholecalciferol (vitamin D3) 25 mcg PO DAILY 3 months clopidogrel 75 mg PO DAILY [Diabetic shoes with inserts As directed] disposable gloves As directed esomeprazole magnesium (Nexium) 40 mg PO DAILY ferrous sulfate 325 mg PO .once a week 90 days fluticasone propionate 50 mcg/actuation 1 spray intranasal DAILY PRN 30 days vhjxhyjilfx-wddfppbcv-gkzselhv 200-62.5-25 mcg (Trelegy Ellipta) 1 inh inhalation DAILY 30 days folic acid 1 mg PO QAM 90 days FreeStyle Lancets (lancets) 3 times a day NS gabapentin 300 mg PO BEDTIME 90 days glucagon 3 mg/actuation (Baqsimi) mg intranasal hydralazine 25 mg PO TID 90 days hydrocortisone 1% (Anti-Itch (hydrocortisone)) 1 appl topical BID PRN 4 weeks [incomtinemce liner pads As directed] insulin glargine U-300 conc (Toujeo SoloStar U-300 Insulin) 24 units (0.08 mL) subcut DAILY 90 days ipratropium-albuterol 0.5 mg-3 mg(2.5 mg base)/3 mL 3 mL inhalation RQ4H WHILE AWAKE ketoconazole 2% 1 appl topical 2XW 30 days lancets (TRUEplus Lancets) As directed test 4 times a day lancets (FreeStyle Lancets) use daily as directed to check blood glucose latanoprost 0.005% 1 drp ophthalmic (eye) QPM losartan 25 mg PO DAILY 90 days meclizine (Travel-Ease (meclizine)) 12.5 mg (1/2 x 25 mg) PO BID PRN methylcellulose (laxative) (Citrucel) 500 mg PO DAILY montelukast 10 mg PO QPM 90 days Novolog FlexPen U-100 Insulin (insulin aspart U-100) 4 units (0.04 mL) subcut TID NS Oxygen Home Use As directed pen needle, diabetic (BD Sia 2nd Gen Pen Needle) 5 times a day semaglutide (Ozempic) 2 mg (0.75 mL) subcut QWEEK simethicone (Gas Relief (simethicone)) 125 mg PO BID PRN 90 days sucralfate 1 g PO BID PRN torsemide 20 mg PO BID [wipes As directed] HPI Comments Details: Elderly woman with a history of longstanding diabetes mellitus and hypertension with congestive heart failure has been referred for CKD. She has a history of CKD. She has baseline creatinine of 1.4 mg/dL. She has had episodes of ARLEY due to hypoperfusion in setting of heart failure. Today she is accompanied by her daughter. She complains of low back pain. No dysuria urgency increased frequency. No shortness of breath. No diarrhea constipation. All other systems were reviewed. 6/4/25 79-year-old female presenting with chronic back pain and evaluation of renal dysfunction. The back pain has persisted for over three weeks and is correlated with findings from a May X-ray that indicated arthritis. She was prescribed Tylenol by her primary care provider, though adherence is uncertain. Addition ally, she is monitored for renal dysfunction, with recent kidney function levels reported at 36% after a previous drop to 28%. She has been advised against NSAID use due to the potential risk to kidney function, and an ultrasound of the kidney is planned to investigate further. The patient's diabetes is poorly controlled with blood glucose readings at 8%. 06/18/25 The patient is an 80-year-old female presenting with chronic kidney disease and diabetes mellitus. Chronic kidney disease is stable with a kidney function of 32%. Nephrolithiasis was noted last year without obstruction, and a repeat ultrasound is planned. Diabetes mellitus is controlled with an A1c of 7.1%. Losartan is used to manage proteinuria, which has improved. Hypertension is controlled with losartan, and blood pressure is satisfactory. Persistent back pain is reported. Medications: - Losartan: for hypertension and proteinuria management Diagnostic Results: - Labs: Kidney function at 32% - Labs: Hemoglobin A1c at 7.1% - Imaging: Previous ultrasound showed nephrolithiasis without obstruction [facility] Medical History T2DM (type 2 diabetes mellitus) Acute exacerbation of CHF (congestive heart failure) Acute on chronic diastolic (congestive) heart failure Acute exacerbation of CHF (congestive heart failure) Acute respiratory failure with hypoxia Flash pulmonary edema Dyspnea Furuncle Vulvar itching Vaginal lump Pleural effusion Exocrine pancreatic insufficiency Renal cyst, acquired, right Back pain Vitamin D deficiency HLD (hyperlipidemia) JOSE (obstructive sleep apnea) 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 Aortic stenosis CKD (chronic kidney disease) stage 3, GFR 30-59 ml/min Dyslipidemia Diabetic polyneuropathy associated with type 2 diabetes mellitus Diabetic nephropathy associated with type 2 diabetes mellitus Chronic kidney disease Hypertension Asthma Thalamic pain syndrome GERD (gastroesophageal reflux disease) Morbid obesity Surgical History H/O colonoscopy H/O aortic valve replacement History of breast lump/mass excision History of tubal ligation History of cholecystectomy Family History Sister History of renal pelvis cancer Father Suicide Mother Lung disease Diabetes mellitus Social History Household Members: Family Housing: House Do you presently have visiting nurse or other home services: Yes (appeals specialist) Alcohol intake: never Comment: pt stays with pt. Patient Tobacco Use Status: Former Tobacco user Tobacco use type: Cigarette Years Smoked: 5 years e-Cigarette/Vaping Use: Never Used Second Hand Smoke Exposure: No service: No Current occupational status: unemployed and disabled Gender identity: Female Cognitive needs: Yes Hearing needs: No Vision needs: No Female Reproductive History Menstrual Age of Menarche: 10 Physical Exam Vital Signs: Last Vital Signs Pulse 64 06/18/25 09:41 BP 128/50 L 06/18/25 09:41 Pulse Ox 98 06/18/25 09:41 Oxygen Delivery Method Room Air 06/18/25 09:41 BMI result Body Mass Index 39.2 Results Reviewed Nephrology Results: Hgb, (12.0-16.0) 12.4 g/dl 05/29/25 WBC, (4.8-10.8) 14.5 X10*3/uL H 05/29/25 Plt Count, (160-400) 417 X10*3/uL H 05/29/25 Sodium, (135-145) 141 mmol/L 05/29/25 Potassium, (3.3-5.1) 4.2 mmol/L 05/29/25 Chloride, (96-108) 107 mmol/L 05/29/25 Carbon Dioxide, (22-29) 24 mmol/L 05/29/25 BUN, (9-16) 20 mg/dL H 05/29/25 Creatinine, (0.5-1.4) 1.54 mg/dL H 05/29/25 Calcium, (8.4-10.2) 9.8 mg/dL 05/29/25 Renal US 01/21/21 Assessment & Plan Assessment & Plan (1) CKD (chronic kidney disease) stage 3, GFR 30-59 ml/min: Code(s): N18.30 - Chronic kidney disease, stage 3 unspecified Category: Medical Qualifiers: Chronic kidney disease stage 3 subtype: stage 3b (GFR 30-44) Qualified Code(s): N18.32 - Chronic kidney disease, stage 3b Plan: Renal function close to baseline Volume status acceptable Goal is to slow the progression of CKD Maintain blood pressure less than 130/80 Maintain A1c less than 7% She needs weight loss. Might benefit from SGLT2 inhibitors. Continue to avoid nephrotoxic agents including NSAIDs (2) Proteinuria: Comment: Due to underlying diabetic kidney disease. Code(s): R80.9 - Proteinuria, unspecified Category: Medical Plan: Goal is to slow the portion disease Continue with RAAS inhibition. (3) Renal cyst, acquired, right: Comment: Simple cyst Code(s): N28.1 - Cyst of kidney, acquired Category: Medical Plan: Due to low back pain and recent bump in creatinine, will obtain follow up USG She will follow as needed (4) Anemia: Code(s): D64.9 - Anemia, unspecified Category: Medical Qualifiers: Anemia type: other cause Other causes of anemia: other cause, not classified Qualified Code(s): D64.89 - Other specified anemias Plan: Multifactorial. Erythropoietin deficiency could be playing a role. Follow iron stores and see if she needs iron replacement Plan Anti-nausea medication was prescribed for her upcoming Cruise /travels, ensuring comfort and reducing symptoms of motion sickness. Orders: Orders Basic Metabolic Panel Today I10 - Essential (primary) hypertension, N18.32 - Chronic kidney disease, stage 3b, N18.9 - Chronic kidney disease, unspecified Basic Metabolic Panel 3 Months N18.32 - Chronic kidney disease, stage 3b US renal BI Today I10 - Essential (primary) hypertension, N18.32 - Chronic kidney disease, stage 3b, N18.9 - Chronic kidney disease, unspecified Coding Level of Care Code Est Pt Level 4 (41261) Diagnoses Stage 3b chronic kidney disease N18.32 Chronic kidney disease stage 3 subtype: stage 3b (GFR 30-44) Proteinuria R80.9 Renal cyst, acquired, right N28.1 Anemia due to other cause, not classified D64.89 Anemia type: other cause Other causes of anemia: other cause, not classified
[2025-06-18 09:41] VITALS: BP 128/50; PULSE 64; O2SAT 98; BMI 39.2
--- OUTSIDE RECORDS SUMMARY | 2025-06-18 11:21 | XMS_ITS | Encounter Summary ---
Author Organization [employer] [facility] Address [address] [place] [address] 7t [place] [address] Care Team Providers Care Sewer Maintenance Supervisor Name Role Phone Marycarmen Quijano MD Primary Care Provider Reason for Visit * Reason Comments Med Refill Encounter Details Date Type Department Care Team ([facility] Contact Info) Description 04/15/2023 Refill [facility] MEDICINE [address] [place] [address] Marycarmen Quijano MD [address] [place] [address] Social History Tobacco Use Types Packs/Day Years [facility] Description 07/25/2025 10:15 AM EDT Office Visit [facility] ADULT DENTAL [address] [place] [address] RadhaJohana [address] [place] [address] documented as of this encounter Visit Diagnoses Not on filedocumented in this encounter Care Teams Sewer Maintenance Supervisor Relationship Specialty Start Date End Date Marycarmen Quijano MD [address] [place] [address] PCP - General Family Medicine 03/02/23 06/20/23 documented as of this encounter
--- OUTSIDE RECORDS SUMMARY | 2025-06-18 11:21 | XMS_ITS | Clinical Summary ---
Author Organization [facility] Address [address] [address] Phone Care Team Providers Care Grout Pump Operator Name Role Phone Marycarmen Quijano MD Primary Care Provider [phone] Allergies Active Allergy Reactions Criticality Noted Date [...] day Active ergocalciferol (VITAMIN D-2) 1.25 MG (06599 UT) capsule Take 1 capsule by mouth [...] arteriosclerosis 07/11/2012 Overview (12/07/2022): Cath 01/2010 at [facility] showed LCx 80% and ostial [...] [facility] [address] [address] Alycia Rios ARNP Stage 3b [...] A1C 8.5(H) <5 % [facility] Comments [place] [facility] Creatinine 1.35(H) 0.70 - 1.30 mg/dl [facility] Potassium 4.5 3.5 - 5.1 mmol/L PVNMA Calcium 8.8 8.4 - 10.2 mg/dl PVNMA eGFR Non- 38(L) >60 ml/min PVNMA 09/18/2020 us [facility] [id number] LICITED RESULTS Final Result PVNMA from Last 3 Months or Most Recently Relevant to Health Maintenance Insurance [facility] ([id number]) [facility] MCR ([id number]) [place]ANCO [phone] Care Teams Grout Pump Operator Relationship Specialty Start Date End Date Marycarmen Quijano MD [address] [place] [address] PCP - General 10/14/20
--- OUTSIDE RECORDS SUMMARY | 2025-06-18 11:21 | XMS_ITS | Encounter Summary ---
Author Organization [employer] Address [address] [place] [address] 7t [place] [address] Care Team Providers Care Testing Projects Administrator Name Role Phone Marycarmen Quijano MD Primary Care Provider [phone] Reason for Visit * Reason Comments Med Refill Encounter Details Date Type Department Care Team ([facility] Contact Info) Description 03/07/2023 Refill [facility] MED & PEDS [address] [place], [place] [id number] Marycarmen Quijano MD [address] [place], [place] [phone] Social History Tobacco Use Types Packs/Day Years [...] Team ([facility] Contact Info) Description 07/25/2025 10:15 AM EDT Office Visit [facility] ADULT DENTAL [address] [place] [address] Radha, Johana [address] [place] [address] documented as of this encounter Visit Diagnoses Not on filedocumented in this encounter Care Teams Testing Projects Administrator Relationship Specialty Start Date End Date Marycarmen Quijano MD [address] [place] [address] PCP - General Family Medicine 03/02/23 06/20/23 documented as of this encounter
--- OUTSIDE RECORDS SUMMARY | 2025-06-18 11:21 | XMS_ITS | Encounter Summary ---
Author Organization [employer] [facility] Address [address] [place] [address] 7[address] [place] [address] Care Team Providers Care Baby Attendant Name Role Phone Marycarmen Quijano MD Primary Care Provider [phone] Reason for Visit * Reason Comments Med Refill Encounter Details Date Type Department Care Team ([facility] Contact Info) Description 02/06/2023 Refill [facility] MEDICINE [address] [place] [address] Marycarmen Quijano MD [address] [place], [place] [phone] Social History Tobacco Use Types Packs/Day Years [...] Upcoming Encounters Date Type Department Care Team ([facility] Contact Info) Description 07/25/2025 10:15 AM EDT Office Visit [facility] ADULT DENTAL [address] [place] [address] RadhaJohana [address] [place] [address] documented as of this encounter Visit Diagnoses Not on filedocumented in this encounter Care Teams Baby Attendant Relationship Specialty Start Date End Date Marycarmen Quijano MD [address] [place] [address] PCP - General Family Medicine 03/02/23 06/20/23 documented as of this encounter
--- OUTSIDE RECORDS SUMMARY | 2025-06-18 11:21 | XMS_ITS | Encounter Summary ---
Author Organization [employer] [facility] Address [address] [place] [address] 7t [place] [address] Care Team Providers Care Relocation Coordinator Name Role Phone Marycarmen Quijano MD Primary Care Provider [phone] Reason for Visit * Reason Comments Med Refill Encounter Details Date Type Department Care Team ([facility] Contact Info) Description 04/04/2023 Refill [facility] MEDICINE [address] [place] [address] Marycarmen Quijano MD [address] [place] [address] Social History Tobacco Use Types Packs/Day Years [...] Upcoming Encounters Date Type Department Care Team ([facility] Contact Info) Description 07/25/2025 10:15 AM EDT Office Visit [facility] ADULT DENTAL [address] [place] [address] RadahJohana [address] [place] [address] documented as of this encounter Visit Diagnoses Not on filedocumented in this encounter Care Teams Relocation Coordinator Relationship Specialty Start Date End Date Marycarmen Quijano MD [address] [place] [address] PCP - General Family Medicine 03/02/23 06/20/23 documented as of this encounter
--- OUTSIDE RECORDS SUMMARY | 2025-06-18 11:21 | XMS_ITS | Encounter Summary ---
Author Organization [employer] Address [address] [place] [address] 7t [place] [address] Care Team Providers Care Nipping Machine Operator Name Role Phone Marycarmen Quijano MD Primary Care Provider [phone] Reason for Visit * Reason Comments Med Refill Encounter Details Date Type Department Care Team ([facility] Contact Info) Description 03/10/[address] [facility] CHC MED & PEDS [address] [place], [place] [phone] Marycarmen Quijano MD [address] [place] [address] Primary hypertension Social History Tobacco Use Types [...] Encounters Date Type Department Care Team ([facility] Contact Info) Description 07/25/2025 10:15 AM EDT Office Visit [facility] ADULT DENTAL [address] [place] [address] Radha Johana [address] [place] [address] documented as of this encounter Visit Diagnoses Diagnosis Primary hypertension Unspecified essential hypertension documented in this encounter Care Teams Nipping Machine Operator Relationship Specialty Start Date End Date Marycarmen Quijano MD [address] [place] [address] PCP - General Family Medicine 03/02/23 06/20/23 documented as of this encounter
--- OUTSIDE RECORDS SUMMARY | 2025-06-18 11:21 | XMS_ITS | Encounter Summary ---
Author Organization [employer] Address [address] [place] [address] 7t [place] [address] Care Team Providers Care Load Blocker Name Role Phone Marycarmen Quijano MD Primary Care Provider [phone] Reason for Visit * Reason Comments Med Refill Encounter Details Date Type Department Care Team ([facility] Contact Info) Description 03/03/2023 Refill [facility] CHC MED & PEDS [address] [place], [place] [phone] Marycarmen Quijano MD [address] [place] [address] Primary hypertension Social History Tobacco Use Types [...] Upcoming Encounters Date Type Department Care Team ([facility] Contact Info) Description 07/25/2025 10:15 AM EDT Office Visit [facility] ADULT DENTAL [address] [place] [address] RadhaJohana [address] [place] [address] documented as of this encounter Visit Diagnoses Diagnosis Primary hypertension Unspecified essential hypertension documented in this encounter Care Teams Load Blocker Relationship Specialty Start Date End Date Marycarmen Quijano MD [address] [place] [address] PCP - General Family Medicine 03/02/23 06/20/23 documented as of this encounter
--- OUTSIDE RECORDS SUMMARY | 2025-06-18 11:21 | XMS_ITS | Encounter Summary ---
Author Organization [employer] Address [address] [facility] 7t [place] [address] Care Team Providers Care High Lift Operator Name Role Phone Marycarmen Quijano MD Primary Care Provider [phone] Reason for Visit * Reason Comments Med Refill Encounter Details Date Type Department Care Team ([facility] Contact Info) Description 04/12/2023 Refill [facility] [address] [place] [address] Jose Johnson MD [address] [place] [address] Social History Tobacco Use Types Packs/Day Years [...] Encounters Date Type Department Care Team ([facility] Contact Info) Description 07/25/2025 10:15 AM EDT Office Visit [facility] ADULT DENTAL [address] [place] [address] RadhaJohana [address] [place] [address] documented as of this encounter Visit Diagnoses Not on filedocumented in this encounter Care Teams High Lift Operator Relationship Specialty Start Date End Date Marycarmen Quijano MD [address] [place] [address] PCP - General Family Medicine 03/02/23 06/20/23 documented as of this encounter
--- OUTSIDE RECORDS SUMMARY | 2025-06-18 11:21 | XMS_ITS | Patient Health Record ---
Author Organization [facility] Address [address] [place] [address] Care Team Providers Care Oncology Physician Assistant Name Role Phone Jaime VORA, Shelby Primary Care Provider Unavail able Randy Leal Unavailable [phone] Allergies Allergen (clinical drug ingredient) Drug/Non Drug [...] Problem Acquired hammer toe of right foot (6943674911472648 ) Other hammer toe(s) (acquired), right foot (M20.41) Active confirmed Problem Acquired hammer toe of left foot (5705160372275117 ) Other hammer toe(s) (acquired), left foot (M20.42) Active confirmed Problem Polyneuropathy due to type 2 diabetes mellitus (373414730) Type 2 diabetes mellitus with diabetic polyneuropathy (E11.42) Active confirmed Vital Signs Blood pressure diastolic 65 mm Hg 04/24/2025 Height 4 ft 9 in in 04/24/2025 Blood pressure systolic 128 mm Hg 04/24/2025 Weight 182 lbs 04/24/2025 BMI 39.38 kg/m2 04/24/2025 Procedures Procedure Date Ordered Date Performed Result Body Sit e 00720-ILAZHDM NAIL, 6 OR MORE 12/26/2024 N/A 73087-Qvrsmrgf Plate 12/26/2024 N/A 74811-HGTT SKIN LESIONS, 2 TO 4 12/26/2024 N/A 62436-ELBUYIU NAIL, 6 OR MORE 04/24/2025 N/A 27546-WWOV SKIN LESIONS, 2 TO 4 04/24/2025 N/A Encounters Encounter Location Date Provider Diagnosis [facility] [address] [place] [address] 12/26/2024 Randy Leal Type 2 diabetes mellitus with diabetic polyneuropathy E11.42 ; Tinea unguium B35.1 ; Other hammer toe(s) (acquired), right foot M20.41 ; Other hammer toe(s) (acquired), left foot M20.42 and Subungual hematoma of left foot, initial encounter S90.222A [address] [address] 04/24/2025 Randy Leal Type 2 diabetes mellitus with diabetic polyneuropathy E11.42 ; Tinea unguium B35.1 and Xerosis of skin L85.[address] [address] [facility] [address] [address] [facility] [address] [address] 03/27/2025 Randy Leal Assessments Encounter Date Diagnosis [...] Treatment Pending Test Test Name Order Date 97745-GLIGFTD NAIL, 6 OR MORE 03/17/2024 26205-AQXADFW NAIL, 6 OR MORE 06/16/2024 56154-GSBIZDZ NAIL, 6 OR MORE 12/26/2024 46297-DAETGHR NAIL, 6 OR MORE 04/24/2025 57039-Zddzfqsz Plate 12/26/2024 53960-ENCV SKIN LESIONS, 2 TO 4 04/24/20 40132-RABY SKIN LESIONS, 2 TO 4 12/27/19 76458-XCSW SKIN LESIONS, 2 TO 4 06/16/20 36637-GUKV SKIN LESIONS, 2 TO 4 03/17/20 Next Appt Details Provider Name:Randy Leal , 07/24/2025 02:00:00 PM, [address] [place] [address], [phone], Insurance Providers Payer Name Payer Address Payer Phone Subscriber Number Group Number Insured Name Patient Relationship to Insured Coverage Start Date Coverage End Date [facility] [employer] Claims [address] [place] [phone] [id number] Katherine Jamil Self - patient is the insured Medical (General) History Medical History History ICD Code Anxiety Arthritis asthma Back,Hip,and Knee pain CAD (Cholesterol) Cataracts Depression Diabetic Heart disease High blood pressure Kidney disease Lung disease Numbness Poor circulation Reflux ( GERD) sinusitis Vascular phlebitis (clots) Chicken pox Replacement Heart Valves Transfusions Surgical History Surgery Date(Month/Year)
--- OUTSIDE RECORDS SUMMARY | 2025-06-18 11:22 | XMS_ITS ---
Author Organization [facility] Care Team Providers Care Orientation & Mobility Specialist Name Role Phone Gato Tyler Unavailable Unavailable Planeconnie, Missy Unavailable Unavailable LevChristine zhanga Unavailable Unavailable Allergies and adverse reactions Code CodeSystem Substance Reaction Severity StartDate Concern Status 7804 RXNORM Oxycodone Unknown 01/28/2021 active Motrin Unknown 01/28/2021 active 5640 RXNORM Ibuprofen Unknown 01/28/2021 active 161 RXNORM Acetaminophen Unknown 01/28/2021 active Care Team Name Role Address Phone Organization Dates Gato Tyler PCP [address] [facility] [address], [place], [address], [place] (Office): : [facility] 01/28/2021 - 02/19/2021 Missy [facility] 01/28/2021 - 02/19/2021 Missy [place] [address], [place], [address], [place] (Office): [facility] 01/28/2021 - 02/19/2021 Immunizations Immunization Status Vaccine Details Vaccine Code CodeSystem Date Notes Influenza completed Influenza, split virus, trivalent, injectable, contains preservative 141 CVX created date: 01/29/2021 administer ed date: 06/05/2020 TB 1 Step Mantoux (PPD) completed tuberculin skin test; unspecified formulation lotNumber: [id number] expiry: 11/10/2021 Mfg: par Given 0.1 ml [...] 1 ACUTE KIDNEY FAILURE, UNSPECIFIED 01/29/[address] active 2 ATHEROSCLEROTIC HEART DISEASE OF [place] CORONARY ARTERY WITHOUT ANGINA PECTORIS 01/29/[address] active 3 CHRONIC KIDNEY DISEASE, UNSPECIFIED 01/29/[address] active 4 COVID-19 01/29/[address] active 5 DYSPHAGIA, ORAL PHASE 01/29/[address] active 6 ESSENTIAL (PRIMARY) HYPERTENSION 01/29/[address] active 7 GASTRO-ESOPHAGEAL REFLUX DISEASE WITHOUT ESOPHAGITIS 01/29/[address] active 8 HYPERLIPIDEMIA, UNSPECIFIED 01/29/[address] active 9 HYPO-OSMOLALITY AND HYPONATREMIA 01/29/[address] active 10 MUSCLE WASTING AND ATROPHY, NOT ELSEWHERE CLASSIFIED, LEFT LOWER LEG 01/29/[address] active 11 MUSCLE WASTING AND ATROPHY, NOT ELSEWHERE CLASSIFIED, RIGHT LOWER LEG 01/29/[address] active 12 OBESITY, UNSPECIFIED 01/29/[address] active 13 OTHER MALAISE 01/29/[address] active 14 OTHER REDUCED MOBILITY 01/29/[address] active 15 PERIPHERAL VASCULAR DISEASE, UNSPECIFIED 01/29/[address] active 16 RESPIRATORY FAILURE, UNSPECIFIED WITH HYPOXIA 01/29/[address] active 17 TYPE 2 DIABETES MELLITUS WITH DIABETIC NEUROPATHY, UNSPECIFIED 01/29/[address] active 18 UNSPECIFIED ASTHMA, UNCOMPLICATED 01/29/[address] active 19 UNSTEADINESS ON FEET 01/29/[address] active Reason for Referral No Reasons for Referral Entered Social History Social History Observation Description Start Date End Date Code Code System Current Smoking Status Tobacco smoking consumption unknown 643674977 SNOMED CT Sex Assigned At Female 1945 59930-1 [facility] Gender Identity Sexual Orientation Vital Signs Code Code System Vitals Name Values and Units Timing Information 9279-1 [facility] Respiratory Rate Value=16.0 Units=/m in 02/19/2021 82025-8 [facility] O2 % BldC Oximetry Value=95.0 Units= % 02/19/2021 8310-5 [facility] Body Temperature Value=97.5 Units= F 02/19/2021 96098-4 [facility] Pain Level Value=0.0 02/19/2021 2339-0 [facility] Blood Sugar Zmiri=336.0 Units=mg/dL 02/19/2021 17105-9 [facility] Weight Hkiya=881.2 Units=Lbs 8462-4 [facility] Blood Pressure-Diastolic Value=60 Un its=mmHg 01/31/2021 8480-6 [facility] Blood Pressure-Systolic Rtsfm=626 Un its=mmHg 01/31/2021 8867-4 [facility] Heart rate Value=83.0 Units=/min 8302-2 [facility] Height Value=61.0 Units=Inches 01/28/2021
--- OUTSIDE RECORDS SUMMARY | 2025-06-18 11:23 | XMS_ITS | Clinical Summary ---
Author Organization [employer] Address [address] [place] [address] 7t [place] [address] Care Team Providers Care Machine Quilt Stuffer Name Role Phone Unavailable Primary Care Provider [...] BEDTIME 2 Active Blood Glucose Monitoring Suppl ([employer]yk[employer] TechnologiesStyle Wainwright Lite) w/Device kit TEST BLOOD SUGAR THREE [...] by mouth at bed time. Active Creon 95506-20403 units capsule 3 Active pantoprazole (ProtoNix) 40 [...] 3 Active ergocalciferol (Vitamin D2) 1.25 MG (49404 UT) capsule TAKE 1 CAPSULE BY MOUTH [...] Description 05/29/2025 1:20 PM EDT Office Visit [facility] [address] [place] [address] Christianne John MD Diarrhea, unspecified type (Primary Dx) 05/29/2025 Telephone [facility] [address] [place] [address] Christianne John MD 05/29/2025 Orders [...] Team (Late st Contact Info) Description 07/25/2025 10:15 AM EDT Office Visit [facility] [address] [place] [address] Johana Garcia [address] [place] [address] Health Maintenance Due Date Last Done Comments Depression Screening 1945 SDOH Screening 1945 Diabetes: Foot Exam 1955 Eye Exam 1955 Alcohol/Substance Use Screening 1957 Zoster Vaccines (2 of 3) 09/09/2015 07/15/2015 RSV Patients and Patients Aged 60 years or older (1 - 1-dose 75+ series) 2020 Lipid Panel 09/18/2021 09/18/2020, 04/09/2020 Diabetes: Hemoglobin A1C 10/09/2022 022, 12/01/2021, 12/01/2021, Additional history exists Dental Oral Exam 12/18/2024 06/19/2024, 12/02/2022 COVID-19 Vaccine ( season) 2025 Influenza Vaccine (#1) 2025 , 07/20/2022, 07/20/2022, [...] Blood Count 14.5(H) 4.8 - 10.8 X10*3/uL [facility] Red Blood Count 4.98 4.20 - 5.50 X10*6/uL [facility] Hemoglobin 12.4 12.0 - 16.0 g/dl [facility] Hematocrit 38.9 37.0 - 47.0 % [facility] Mean Corpuscular Volume 78.1(L) 80.0 - 98.0 fL [facility] Mean Corpuscular Hemoglobin 24.9(L) 27.0 - 33.0 pg [facility] Mean Corpuscular HGB Conc 31.9 31.0 - 35.0 g/dl [facility] Red Cell Distribution Width 15.6 11.0 - 16.0 % [facility] Platelet Count 417(H) 160 - 400 X10*3/uL [facility] Mean Platelet Volume 9.5 9.4 - 12.3 fL [facility] Neutrophils Percent Auto 76.6(H) 45 - 73 % [facility] Imm Gran Pct Auto 0.4 0.0 - 0.4 % [facility] Lymphocytes Percent Auto 15.5(L) 20 - 40 % [facility] Monocytes Percent Auto 5.5 2 - 11 % [facility] Eosinophils Percent Auto 1.5 0 - 4 % [facility] Basophils Percent Auto 0.5 0 - 2 % [facility] NRBC Pct Auto 0.0 0.0 - 0.2 /100WBC [facility] Neutrophils Absolute Auto 11.1(H) 2.0 - 8.3 x10*3/uL [facility] Imm Gran Abs Auto 0.06(H) 0.00 - 0.03 X10*3/uL [facility] Lymphocytes Absolute Auto 2.3 1.2 - 4.9 X10*3/uL [facility] Monocytes Absolute Auto 0.8 0.1 - 1.2 X10*3/uL [facility] Eosinophils Absolute Auto 0.2 0.0 - 0.4 X10*3/uL [facility] Basophils Absolute Auto 0.1 0.0 - 0.2 X10*3/uL [facility] NRBC Abs Auto 0.000 0.0 - 0.012 X10*3/uL [facility] Blood Venous blood specimen / Unknown 05/29/2025 2:12 PM EDT 05/29/2025 3:57 PM EDT Christianne John MD LAB BLOOD ORDERABLES Final Result Performing Organization Address [facility]/ZIP Co de Phone Number [facility] [address] [place] [phone] * (ABNORMAL) C-reactive Protein (05/29/2025 2:12 PM EDT) Pathologist [facility] C Reactive Protein 2.65(H) < or = 0.50 mg/dL [facility] Blood Venous blood specimen / Unknown 05/29/2025 2:12 PM EDT 05/29/2025 3:57 PM EDT Christianne John MD LAB BLOOD ORDERABLES Final Result Performing Organization Address [facility]/ZIP Co de Phone Number [facility] [address] [place] [phone] * (ABNORMAL) Basic Metabolic Panel (05/29/2025 2:12 PM EDT) Only the most recent of2 resultswithin the time period is included. Pathologist [facility] Sodium 141 135 - 145 mmol/L [facility] Potassium 4.3 3.3 - 5.1 mmol/L [facility] Chloride 107 96 - 108 mmol/L [facility] Carbon Dioxide 24 22 - 29 mmol/L [facility] Anion Gap 14 12 - 20 [facility] Urea Nitrogen (BUN) 20(H) 9 - 16 mg/dL [facility] Creatinine, Serum 1.53(H) 0.5 - 1.4 mg/dL [facility] Estimated Glomerular Filt Rate 33 [facility] Comment:Chronic Kidney Disea se: Estimated GFR < 60 mL/min/1.32o8Kzlraw Kidney Disease: Estimated GFR < 15 mL/min/1.73m2 Glucose 117(H) 60 - 115 mg/dL [facility] Calcium 9.8 8.4 - 10.2 mg/dL [facility] 05/29/2025 2:12 PM EDT 05/29/2025 3:57 PM EDT Generic External Data Provider LAB BLOOD ORDERAB LES Final Result [facility] [address] [place] [phone] * POCT Influenza B manually resulted (05/29/2025 2:04 PM EDT) [facility] Rapid Influenza B Ag Negative Negative, Indeterminate QC Media Lot # [id number] Lot# Expiration Date [id number] Swab 05/29/2025 2:[address] [facility] Christianne John MD POINT OF CARE TEST ENTER/E DIT ORDERABLES Final Result * POCT Influenza A manually resulted (05/29/2025 2:04 PM EDT) [facility] Rapid Influenza A Ag Negative Negative, Indeterminate QC Media Lot # [id number] Lot# Expiration Date 100,826 Swab Nasopharyngeal structure / Unknown 05/29/2025 2:04 PM EDT Christianne John MD POINT OF CARE TEST ENTER/E DIT ORDERABLES Final Result * POCT Rapid COVID Ag (05/29/2025 2:03 PM EDT) [facility] Rapid COVID Ag Negative QC Media Lot # [id number] Lot# Expiration Date [id number] Swab 05/29/2025 2:03 PM EDT Christianne John MD POINT OF CARE TEST ENTER/E DIT ORDERABLES Final Result * HEMOGLOBIN A1C (07/09/2022 10:40 AM EDT) Estimated Average Glucose 151 mg/dL [facility] Comment: eAG = Estimated average glucose which is %A1C expressed as average glucose, using the formula of the Q9T-[id number] Average Glucose study (ADAG), Diabetes Care, Vol.31,#8, [...] [facility] Comment: NOTE: For -Congolese individuals, multiply the result by 1.210. Chronic [...] Result [facility] [address] from Last 3 Months or Most Recently Relevant to Health Maintenance Insurance [facility] OPTIONS (HMO D-SNP) DENTAL [facility]
--- OUTSIDE RECORDS SUMMARY | 2025-06-18 11:23 | XMS_ITS | Encounter Summary ---
Author Organization [employer] [facility] Address [address] [place] [address] 7t [place] [address] Care Team Providers Care Behavioral Health Counselor Name Role Phone Marycarmen Quijano MD Primary Care Provider [phone] Reason for Visit * Reason Comments Med Refill Encounter Details Date Type Department Care Team ([facility] Contact Info) Description 04/15/2023 Refill [facility] [address] [place] [address] Marycarmen Quijano MD [address] [place] [address] Social History Tobacco Use Types Packs/Day Years [...] Team ([facility] Contact Info) Description 07/25/2025 10:15 AM EDT Office Visit [facility] [address] [place] [address] RadhaJohana [address] [place] [address] documented as of this encounter Visit Diagnoses Not on filedocumented in this encounter Care Teams Behavioral Health Counselor Relationship Specialty Start Date End Date Marycarmen Quijano MD [address] [place] [address] PCP - General Family Medicine 03/02/23 06/20/23 documented as of this encounter
--- OUTSIDE RECORDS SUMMARY | 2025-06-18 11:23 | XMS_ITS | Encounter Summary ---
Author Organization [facility] [facility] Address [address] [place] [address] [address]t [place] [address] Care Team Providers Care Minor League Baseball Player Name Role Phone Unavailable Primary Care Provider Unavailabl e Reason for Visit * Reason Comments Med Refill Encounter Details Date Type Department Care Team (Late st Contact Info) Description 11/24/2023 Refill [facility] [address] [place] [address] Christianne John MD [address] [place] [address] Moderate persistent asthma, unspecified whether complicated Social [...] Description 07/25/2025 10:15 AM EDT Office Visit [facility] [address] [place] [address] Radha, Johana [address] [place] [address] documented as of this encounter Visit Diagnoses Diagnosis Moderate persistent asthma, unspecified whether complicated documented in this encounter
--- OUTSIDE RECORDS SUMMARY | 2025-06-18 11:23 | XMS_ITS | Encounter Summary ---
Author Organization [employer] [facility] Address [address] [place] [address] 7t [place] [address] Care Team Providers Care Weapons Mechanic Name Role Phone Unavailable Primary Care Provider Unavailabl e Reason for Visit * Reason Comments Med Refill Encounter Details Date Type Department Care Team (Late st Contact Info) Description 11/29/2023 Refill [facility] [address] [place] [address] Christianne John MD [address] [place] [address] Moderate persistent asthma, unspecified whether complicated Social [...] Description 07/25/2025 10:15 AM EDT Office Visit [facility] [address] [place] [address] Radha, Johana [address] [place] [address] documented as of this encounter Visit Diagnoses Diagnosis Moderate persistent asthma, unspecified whether complicated documented in this encounter
--- OUTSIDE RECORDS SUMMARY | 2025-06-18 11:23 | XMS_ITS | Encounter Summary ---
Author Organization [employer] [facility] Address [address] [place] [address] 7t [place] [address] Care Team Providers Care Samples And Repairs Preparer Name Role Phone Unavailable Primary Care Provider Unavailabl e Reason for Visit * Reason Comments Med Refill Encounter Details Date Type Department Care Team (Late st Contact Info) Description 12/02/2023 Refill [facility] [address] [place] [address] Christianne John MD [address] [place] [address] Moderate persistent asthma, unspecified whether complicated Social [...] Description 07/25/2025 10:15 AM EDT Office Visit [facility] [address] [place] [address] Radha, Johana [address] [place] [address] documented as of this encounter Visit Diagnoses Diagnosis Moderate persistent asthma, unspecified whether complicated documented in this encounter
--- OUTSIDE RECORDS SUMMARY | 2025-06-18 11:23 | XMS_ITS | Encounter Summary ---
Author Organization [employer] [facility] Address [address] [place] [address] 7t [place] [address] Care Team Providers Care Business Continuity Coordinator Name Role Phone Marycarmen Quijano MD Primary Care Provider [phone] Marycarmen Quijano MD Primary Care Provider [phone] Encounter Details Date Type Department Care Team (Latest Contact Info) Description 06/16/2021 Abstract [facility] CONVERSIONS Dental, Provider, DDS Social History Tobacco [...] Description 07/25/2025 10:15 AM EDT Office Visit [facility] ADULT [facility] [address] [place] [address] Radha, Johana [address] [place] [address] documented as of this encounter Visit Diagnoses Not on filedocumented in this encounter Care Teams Business Continuity Coordinator Relationship Specialty Start Date End Date Marycarmen Quijano MD [address] [place] [address] PCP - General Family Medicine 07/26/13 02/01/23 Marycarmen Quijano MD [address] [place] [address] PCP - General Family Medicine 03/02/23 06/20/23 documented as of this encounter
--- OUTSIDE RECORDS SUMMARY | 2025-06-18 11:23 | XMS_ITS | Encounter Summary ---
Author Organization [employer] [facility] Address [address] [place] [address] [address] [place] [address] Care Team Providers Care Gluer Machine Operator Name Role Phone Marycarmen Quijano MD Primary Care Provider [phone] Marycarmen Quijano MD Primary Care Provider [phone] Reason for Visit * Reason Comments Med Refill Encounter Details Date Type Department Care Team (Late st Contact Info) Description 11/10/2022 Refill [facility] [address] [place], [place] [phone] Marycarmen Quijano MD [address] [place], [place] [phone] Social History Tobacco Use Types Packs/Day Years [...] Description 07/25/2025 10:15 AM EDT Office Visit [facility] [address] [place], [place] [phone] Radha, Johana [address] [place] [address] documented as of this encounter Visit Diagnoses Not on filedocumented in this encounter Care Teams Gluer Machine Operator Relationship Specialty Start Date End Date Marycarmen Quijano MD [address] [place] [address] PCP - General Family Medicine 07/26/13 02/01/23 Marycarmen Quijano MD [address] [place] [address] PCP - General Family Medicine 03/02/23 06/20/23 documented as of this encounter
--- OUTSIDE RECORDS SUMMARY | 2025-06-18 11:23 | XMS_ITS | Encounter Summary ---
Author Organization [employer] [facility] Address [address] [place] [address] 7t [place] [address] Care Team Providers Care Demolition Crane Operator Name Role Phone Unavailable Primary Care Provider Unavailabl e Reason for Visit * Reason Comments Med Refill Encounter Details Date Type Department Care Team (Late st Contact Info) Description 01/19/2024 Refill [facility] [address] [place] [address] Christianne John MD [address] [place] [address] Vitamin deficiency Social History Tobacco Use Types [...] Description 07/25/2025 10:15 AM EDT Office Visit [facility] [address] [place] [address] Santos Garciaaris [address] [place] [address] documented as of this encounter Visit Diagnoses Diagnosis Vitamin deficiency Unspecified vitamin deficiency documented in this encounter
--- OUTSIDE RECORDS SUMMARY | 2025-06-18 11:23 | XMS_ITS | Encounter Summary ---
Author Organization [employer] [facility] Address [address] [place] [address] 7t [place] [address] Care Team Providers Care Clearing Supervisor Name Role Phone Unavailable Primary Care Provider Unavailabl e Reason for Visit * Reason Comments Med Refill Encounter Details Date Type Department Care Team (Late st Contact Info) Description 12/01/2023 Refill [facility] [address] [place] [address] Christianne John MD [address] [place] [address] Moderate persistent asthma, unspecified whether complicated Social [...] 10:15 AM EDT Office Visit [facility] [address] [place] [address] Radha, Johana [address] [place] [address] documented as of this encounter Visit Diagnoses Diagnosis Moderate persistent asthma, unspecified whether complicated documented in this encounter
== END 2025-06-18 10:21 | disposition home or self-care (01) ==
LOC: HO.HKA 09:28
PROVIDERS: PCP Internal Medicine; Visit Provider Internal Medicine Hypertension Specialist
DX: N18.32 Chronic kidney disease, stage 3b (principal); R80.9 Proteinuria, unspecified; N28.1 Cyst of kidney, acquired; D64.89 Other specified anemias
CPT/HCPCS: 99214

== ENCOUNTER 2025-06-18 09:28 | Outpatient (REF) | payer OTHER, SELFPAY ==
[2025-06-18 12:05] LABS: Anion Gap 11 (12-20); Blood Urea Nitrogen 25 mg/dL (9-16); Calcium 9.1 mg/dL (8.4-10.2); Carbon Dioxide 29 mmol/L (22-29); Chloride 107 mmol/L (96-108); Estimated Glomerular Filt Rate 33; Potassium 4.2 mmol/L (3.3-5.1); Sodium 143 mmol/L (135-145)
== END 2025-06-18 09:29 | disposition home or self-care (01) ==
LOC: HO.LAB 09:28
PROVIDERS: PCP Internal Medicine; Visit Provider Internal Medicine Hypertension Specialist
DX: I12.9 Hypertensive chronic kidney disease with stage 1 through stage 4 chronic kidney disease, or unspecified chronic kidney disease (principal); N18.32 Chronic kidney disease, stage 3b; D63.1 Anemia in chronic kidney disease; N28.1 Cyst of kidney, acquired; R80.9 Proteinuria, unspecified; M54.50 Low back pain, unspecified; G89.29 Other chronic pain; Z79.899 Other long term (current) drug therapy
CPT/HCPCS: 36415; 80048; 99212

== ENCOUNTER 2025-06-29 11:29 | Outpatient (REF) | payer OTHER, SELFPAY ==
--- OUTSIDE RECORDS SUMMARY | 2024-09-19 06:00 | XMS_ITS ---
Author Organization [facility] Address [address] [place] [address] Care Team Providers Care Supervisor Dock Name Role Phone Jaime VORA, Shelby Primary Care Provider Unavail Randy Marshall Unavailable [phone] Encounters Encounter Location Date Provider Diagnosis [address] [address] 09/19/2024 Randy Leal Plan Of Treatment Next Appt Details Provider Name:Randy Leal , 07/24/2025 02:00:00 PM, [address] [place], [address], Progress Notes * MICAELAKatherine BashirDOB: 5 (80 yo F)Acc No.[id number]:09/19/2024 Progress Note Patient: Katherine FARMER Provider: Adelina Leal DPM :1945 A ge:79 Y S ex:Female Date:09/19/2024 Address:[address] [place], [place] [phone] Pcp:Shelby Sandoval MD Subjective: * Chief Complaints: [...] Date: 11/20/2023 Generated for Herber olea/Rolando/Nickoitting on: 0 06/29/2025 01:24 PM EDT
--- OUTSIDE RECORDS SUMMARY | 2025-03-27 05:30 | XMS_ITS ---
Author Organization [facility] Address [address] [place] [address] Care Team Providers Care Glass Polisher Name Role Phone Jaime VORA, Shelby Primary Care Provider Unavail Randy Marshall Unavailable [phone] Encounters Encounter Location Date Provider Diagnosis [address] [address] 03/27/2025 Randy Leal Plan Of Treatment Next Appt Details Provider Name:Randy Leal , 07/24/2025 02:00:00 PM, [address] [place], [address], Progress Notes * ARUNKatherineDOB: 5 (80 yo F)Acc No.[id number]:03/27/2025 Progress Note Patient: Katherine FARMER Provider: Adelina Leal DPM :1945 A ge:79 Y S ex:Female Date:03/27/2025 Address:[address] [place], [place] [phone] Pcp:Shelby Sandoval MD Subjective: * Chief Complaints: [...] 03/27/2025 Generated for Herber olea/Rolando/Nickoitting on: 0 06/29/2025 01:24 PM EDT
--- NOTE | ~2025-06-29 | US_ITS ---
EXAMINATION: US KIDNEY BILATERAL HISTORY: I10 - Essential (primary) hypertension TECHNIQUE: Real-time grayscale ultrasound imaging of the kidneys was performed and images were reviewed. COMPARISON: Comparison is made with the prior examination dated 02/29/2024. FINDINGS: Right kidney: The right kidney measures 11.7 x 3.8 x 3.9 cm. Renal parenchymal echotexture and thickness are normal. Multiple cysts are noted, the largest of which is at the upper pole measuring 1.7 x 2.3 x 1.7 cm. Multiple septations are noted. There is a 4 mm nonobstructing calculus at the lower pole. There is no hydronephrosis. Left Kidney: The left kidney measures 10.3 x 4.8 x 3.7 cm. Renal parenchymal echotexture and thickness are normal. There are 2 adjacent 4 mm lower pole cysts. There is a probable 3 mm nonobstructing calculus at the lower pole. There is no hydronephrosis. US/US renal BI IMPRESSION: Bilateral nephrolithiasis and renal cysts as described. Electronically signed by: Farhad Patel MD 06/29/2025 12:11 PM EDT
--- OUTSIDE RECORDS SUMMARY | 2025-06-29 13:25 | XMS_ITS | Encounter Summary ---
Author Organization [employer] [facility] Address [address] [place] [address] 7t [place] [address] Care Team Providers Care Drawstring Knotter Name Role Phone Marycarmen Quijano MD Primary Care Provider [phone] Reason for Visit * Reason Comments Med Refill Encounter Details Date Type Department Care Team ([facility] Contact Info) Description 04/15/2023 Refill [facility] [address] [place] [address] Marycarmen Quijano MD [address] [place] [address] Social History Tobacco Use Types Packs/Day Years [...] 10:15 AM EDT Office Visit [facility] [address] [place] [address] RadhaJohana [address] [place] [address] documented as of this encounter Visit Diagnoses Not on filedocumented in this encounter Care Teams Drawstring Knotter Relationship Specialty Start Date End Date Marycarmen Quijano MD [address] [place] [address] PCP - General Family Medicine 03/02/23 06/20/23 documented as of this encounter
--- OUTSIDE RECORDS SUMMARY | 2025-06-29 13:25 | XMS_ITS | Encounter Summary ---
Author Organization [employer] [facility] Address [address] [place] [address] 7t [place] [address] Care Team Providers Care Hoistman Name Role Phone Unavailable Primary Care Provider Unavailabl e Reason for Visit * Reason Comments Med Refill Encounter Details Date Type Department Care Team (Late st Contact Info) Description 11/29/2023 Refill [facility] [address] [place] [address] Christianne John MD [address] [place] [address] Moderate persistent asthma, unspecified whether complicated Social [...] 07/25/2025 10:15 AM EDT Office Visit [facility] [address] [place] [address] Radha, Johana [address] [place] [address] documented as of this encounter Visit Diagnoses Diagnosis Moderate persistent asthma, unspecified whether complicated documented in this encounter
--- OUTSIDE RECORDS SUMMARY | 2025-06-29 13:25 | XMS_ITS | Encounter Summary ---
Author Organization [facility] Address [address] [address] Phone Care Team Providers Care Department Manager Name Role Phone Marycarmen Quijano MD Primary Care Provider [phone] Encounter Details Date Type Department Care Team ([facility] st Contact Info) Description 06/27/2025 Orders Only [facility] P. [address] [address] Alycia Rios ARNP [address] [address] Stage 3b chronic kidney disease (HCC) (Primary Dx); Persistent proteinuria; Renal osteodystrophy; Hypertensive renal disease Social History Tobacco Use Types Packs/Day Years [...] on file documented as of this encounter Plan of Treatment Scheduled Orders Name Type Priority Associated Diagnoses Orde r Schedule PTH, intact Lab Routine Stage 3b chronic kidney disease (HCC) Persistent proteinuria Renal osteodystrophy Hypertensive renal disease Expected: 06/27/2025, Expires: 07/27/2026 Renal function panel Lab Routine Stage 3b chronic kidney disease (HCC) Persistent proteinuria Renal osteodystrophy Hypertensive renal disease Expected: 06/27/2025, Expires: 07/27/2026 CBC Lab Routine Stage 3b chronic kidney disease (HCC) Persistent proteinuria Renal osteodystrophy Hypertensive renal disease Expected: 06/27/2025, Expires: 07/27/2026 Urine Protein / creatinine ratio Lab Routine Stage 3b chronic kidney disease (HCC) Persistent proteinuria Renal osteodystrophy Hypertensive renal disease Expected: 06/27/2025, Expires: 07/27/2026 Urine Albumin / Creatinine Ratio Lab Routine Stage 3b chronic kidney disease (HCC) Persistent proteinuria Renal osteodystrophy Hypertensive renal disease Expected: 06/27/2025, Expires: 07/27/2026 documented as of this encounter Visit Diagnoses Diagnosis Stage 3b chronic kidney disease (HCC)- Primary Persistent proteinuria Renal osteodystrophy Hypertensive renal disease documented in this encounter Care Teams Department Manager Relationship Specialty Start Date End Date Marycarmen Quijano MD [address] [place] [address] PCP - General 10/14/20 documented as of this encounter
--- OUTSIDE RECORDS SUMMARY | 2025-06-29 13:25 | XMS_ITS | Encounter Summary ---
Author Organization [employer] Address [address] [facility] 7t [place] [address] Care Team Providers Care Polymer Chemist Name Role Phone Marycarmen Quijano MD Primary Care Provider [phone] Reason for Visit * Reason Comments Med Refill Encounter Details Date Type Department Care Team ([facility] Contact Info) Description 04/12/2023 Refill [facility] [address] [place] [address] Jose Johnson MD [address] [place] [address] Social History Tobacco Use Types Packs/Day Years [...] ([facility] Contact Info) Description 07/25/2025 10:15 AM EDT Office Visit [facility] [address] [place] [address] RadhaJohana [address] [place] [address] documented as of this encounter Visit Diagnoses Not on filedocumented in this encounter Care Teams Polymer Chemist Relationship Specialty Start Date End Date Marycarmen Quijano MD [address] [place] [address] PCP - General Family Medicine 03/02/23 06/20/23 documented as of this encounter
--- OUTSIDE RECORDS SUMMARY | 2025-06-29 13:25 | XMS_ITS | Encounter Summary ---
Author Organization [facility] Address [address] [place] [address] 7 [place] [address] Care Team Providers Care Nsh Teacher Name Role Phone Marycarmen Quijano MD Primary Care Provider [phone] Marycarmen Quijano MD Primary Care Provider [phone] Reason for Visit * Reason Comments Med Refill Encounter Details Date Type Department Care Team (Late st Contact Info) Description 11/10/2022 Refill [facility] [address] [place], [place] [phone] Marycarmen Quijano MD [address] [place], [place] [phone] Social History Tobacco Use Types Packs/Day Years [...] Description 07/25/2025 10:15 AM EDT Office Visit [facility] [address] [place], [place] [phone] Radha, Johana [address] [place] [address] documented as of this encounter Visit Diagnoses Not on filedocumented in this encounter Care Teams Nsh Teacher Relationship Specialty Start Date End Date Marycarmen Quijano MD [address] [place] [address] PCP - General Family Medicine 07/26/13 02/01/23 Marycarmen Quijano MD [address] [place] [address] PCP - General Family Medicine 03/02/23 06/20/23 documented as of this encounter
--- OUTSIDE RECORDS SUMMARY | 2025-06-29 13:25 | XMS_ITS | Encounter Summary ---
Author Organization [employer] [facility] Address [address] [place] [address] [address]t [place] [address] Care Team Providers Care Nail Technician Teacher Name Role Phone Marycarmen Quijano MD Primary Care Provider [phone] Reason for Visit * Reason Comments Med Refill Encounter Details Date Type Department Care Team ([facility] Contact Info) Description 04/04/2023 Refill [facility] [address] [place] [address] Marycarmen Quijano MD [address] [place] [address] Social History Tobacco Use Types Packs/Day Years [...] Upcoming Encounters Date Type Department Care Team ([facility] Contact Info) Description 07/25/2025 10:15 AM EDT Office Visit [facility] [address] [place] [address] RadhaJohana [address] [place] [address] documented as of this encounter Visit Diagnoses Not on filedocumented in this encounter Care Teams Nail Technician Teacher Relationship Specialty Start Date End Date Marycarmen Quijano MD [address] [place] [address] PCP - General Family Medicine 03/02/23 06/20/23 documented as of this encounter
--- OUTSIDE RECORDS SUMMARY | 2025-06-29 13:25 | XMS_ITS | Clinical Summary ---
Author Organization [facility] Address [address] [address] Phone Care Team Providers Care Trial Mgr Name Role Phone Marycarmen Quijano MD Primary Care Provider [phone] Allergies Active Allergy Reactions Criticality Noted Date [...] day Active ergocalciferol (VITAMIN D-2) 1.25 MG (99384 UT) capsule Take 1 capsule by mouth [...] failure 01/28/2021 Atherosclerotic heart diseas e of [place] coronary artery without angina pectoris 01/28/2021 Chronic [...] arteriosclerosis 07/11/2012 Overview (12/07/2022): Cath 01/2010 at [facility] showed LCx 80% and [...] Encounters Date Type Department Care Team Description 06/27/2025 Orders Only [facility] [address] [phone] Alycia Rios ARNP Stage 3b chronic kidney disease (HCC) (Primary Dx); Persistent proteinuria; Renal osteodystrophy; Hypertensive renal disease 06/27/2025 Refill [facility] [address] [phone] Ariane Sexton Stage 3b chronic kidney disease (HCC); Persistent proteinuria; Hypertensive renal disease 04/29/2025 Orders Only [facility] [address] [phone] Alycia Rios ARNP Stage 3b chronic kidney [...] A1C 12/17/2020 09/18/2020 Influenza Vaccine (#1) 2025 , 07/20/2022, 06/05/2020, Additional history exists Pneumococcal Vaccine: [...] 8.5(H) <5 % [facility] Comments From [facility] Creatinine 1.35(H) 0.70 - 1.30 mg/dl [facility] Potassium 4.5 3.5 - 5.1 mmol/L [facility] Calcium 8.8 8.4 - 10.2 mg/dl [facility] eGFR Non- 38(L) >60 ml/min [facility] 09/18/2020 us [facility] Conversion LAB [id number] LICITED RESULTS Final Result PVNMA from Last 3 Months or Most Recently Relevant to Health Maintenance Insurance [facility] ([id number]) [facility] ([id number]) Care Teams Trial Mgr Relationship Specialty Start Date End Date Marycarmen Quijano MD [address] [place] [address] PCP - General 10/14/20
--- OUTSIDE RECORDS SUMMARY | 2025-06-29 13:25 | XMS_ITS | Encounter Summary ---
Author Organization [employer] [facility] Address [address] [place] [address] 7t [place] [address] Care Team Providers Care Vice President Biostatistics Name Role Phone Marycarmen Quijano MD Primary Care Provider [phone] Reason for Visit * Reason Comments Med Refill Encounter Details Date Type Department Care Team ([facility] Contact Info) Description 02/06/2023 Refill [facility] MEDICINE [address] [place] [address] Marycarmen Quijano MD [address] [place], [place] [phone] Social History Tobacco Use Types Packs/Day Years [...] Upcoming Encounters Date Type Department Care Team ([facility] Contact Info) Description 07/25/2025 10:15 AM EDT Office Visit [facility] ADULT DENTAL [address] [place] [address] RadhaJohana [address] [place] [address] documented as of this encounter Visit Diagnoses Not on filedocumented in this encounter Care Teams Vice President Biostatistics Relationship Specialty Start Date End Date Marycarmen Quijano MD [address] [place] [address] PCP - General Family Medicine 03/02/23 06/20/23 documented as of this encounter
--- OUTSIDE RECORDS SUMMARY | 2025-06-29 13:25 | XMS_ITS | Encounter Summary ---
Author Organization [employer] Address [address] [place] [address] 7t [place] [address] Care Team Providers Care [place] Former Name Role Phone Marycarmen Quijano MD Primary Care Provider [phone] Reason for Visit * Reason Comments Med Refill Encounter Details Date Type Department Care Team ([facility] Contact Info) Description 03/03/2023 Refill [facility] CHC MED & PEDS [address] [place], [place] [phone] Marycarmen Quijano MD [address] [place] [address] Primary hypertension Social History Tobacco Use Types [...] ([facility] Contact Info) Description 07/25/2025 10:15 AM EDT Office Visit [facility] ADULT DENTAL [address] [place] [address] RadhaJohana [address] [place] [address] documented as of this encounter Visit Diagnoses Diagnosis Primary hypertension Unspecified essential hypertension documented in this encounter Care Teams [place] Former Relationship Specialty Start Date End Date Marycarmen Quijano MD [address] [place] [address] PCP - General Family Medicine 03/02/23 06/20/23 documented as of this encounter
--- OUTSIDE RECORDS SUMMARY | 2025-06-29 13:25 | XMS_ITS | Patient Health Record ---
Author Organization [facility] Address [address] [place] [address] Care Team Providers Care Religion Professor Name Role Phone Jaime VORA, [place] Primary Care Provider Unavail able Randy Leal Unavailable [phone] Allergies Allergen (clinical drug ingredient) Drug/Non Drug [...] Problem Acquired hammer toe of right foot (3907476546432957 ) Other hammer toe(s) (acquired), right foot (M20.41) Active confirmed Problem Acquired hammer toe of left foot (3064110668003861 ) Other hammer toe(s) (acquired), left foot (M20.42) Active confirmed Problem Polyneuropathy due to type 2 diabetes mellitus (540791983) Type 2 diabetes mellitus with diabetic polyneuropathy (E11.42) Active confirmed Vital Signs Blood pressure diastolic 65 mm Hg 04/24/2025 Height 4 ft 9 in in 04/24/2025 Blood pressure systolic 128 mm Hg 04/24/2025 Weight 182 lbs 04/24/2025 BMI 39.38 kg/m2 04/24/2025 Procedures Procedure Date Ordered Date Performed Result Body Sit e 51903-NGUOATF NAIL, 6 OR MORE 12/26/2024 N/A 01123-Wostnvtg Plate 12/26/2024 N/A 66047-LGQS SKIN LESIONS, 2 TO 4 12/26/2024 N/A 17143-OGPIIQM NAIL, 6 OR MORE 04/24/2025 N/A 47242-EYCN SKIN LESIONS, 2 TO 4 04/24/2025 N/A Encounters Encounter Location Date Provider Diagnosis [facility] [place] [address] [place] [address] 12/26/2024 Randy Leal Type 2 diabetes mellitus with diabetic polyneuropathy E11.42 ; Tinea unguium B35.1 ; Other hammer toe(s) (acquired), right foot M20.41 ; Other hammer toe(s) (acquired), left foot M20.42 and Subungual hematoma of left foot, initial encounter S90.222A [address] [address] 04/24/2025 Randy Leal Type 2 diabetes mellitus with diabetic polyneuropathy E11.42 ; Tinea unguium B35.1 and Xerosis of skin L85.[address] [address] [facility] [address] [address] [facility]20[facility] [address] [address] 03/27/2025 Randy Leal Assessments Encounter Date Diagnosis [...] Treatment Pending Test Test Name Order Date 58827-BRKQXPT NAIL, 6 OR MORE 03/17/2024 88390-ZWJVVNQ NAIL, 6 OR MORE 06/16/2024 75744-CDYNFCR NAIL, 6 OR MORE 12/26/2024 82613-LBQPGNN NAIL, 6 OR MORE 04/24/2025 28746-Cbqnnlxn Plate 12/26/2024 42490-JPDM SKIN LESIONS, 2 TO 4 04/24/20 47961-UPEK SKIN LESIONS, 2 TO 4 12/27/19 99796-PIYV SKIN LESIONS, 2 TO 4 06/16/20 14968-SWEM SKIN LESIONS, 2 TO 4 03/17/20 Next Appt Details Provider Name:Randy Leal , 07/24/2025 02:00:00 PM, [address] [place] [address], [phone], Insurance Providers Payer Name Payer Address Payer Phone Subscriber Number Group Number Insured Name Patient Relationship to Insured Coverage Start Date Coverage End Date [facility] [employer] Claims [address] [place] [phone] [id number] Katherine Jamil Self - patient is the insured Medical (General) History Medical History History ICD Code Anxiety Arthritis asthma Back,Hip,and Knee pain CAD (Cholesterol) Cataracts Depression Diabetic Heart disease High blood pressure Kidney disease Lung disease Numbness Poor circulation Reflux ( GERD) sinusitis Vascular phlebitis (clots) Chicken pox Replacement Heart Valves Transfusions Surgical History Surgery Date(Month/Year)
--- OUTSIDE RECORDS SUMMARY | 2025-06-29 13:25 | XMS_ITS | Encounter Summary ---
Author Organization [employer] [facility] Address [address] [place] [address] 7t [place] [address] Care Team Providers Care Roll Icer Machine Name Role Phone Unavailable Primary Care Provider Unavailabl e Reason for Visit * Reason Comments Med Refill Encounter Details Date Type Department Care Team (Late st Contact Info) Description 11/24/2023 Refill [facility] MEDICINE [address] [place] [address] Christianne John MD [address] [place] [address] Moderate persistent asthma, unspecified whether complicated Social [...] Description 07/25/2025 10:15 AM EDT Office Visit [facility] ADULT DENTAL [address] [place] [address] Radha, Johana [address] [place] [address] documented as of this encounter Visit Diagnoses Diagnosis Moderate persistent asthma, unspecified whether complicated documented in this encounter
--- OUTSIDE RECORDS SUMMARY | 2025-06-29 13:25 | XMS_ITS | Encounter Summary ---
Author Organization [employer] Address [address] [place] [address] 7t [place] [address] Care Team Providers Care Natural Resources Faculty Member Name Role Phone Marycarmen Quijano MD Primary Care Provider [phone] Reason for Visit * Reason Comments Med Refill Encounter Details Date Type Department Care Team ([facility] Contact Info) Description 03/10/2023 Refill [facility] CHC MED & PEDS [address] [place], [place] [phone] Marycarmen Quijano MD [address] [place] [address] Primary hypertension Social History Tobacco Use Types [...] Type Department Care Team ([facility] Contact Info) Description 07/25/2025 10:15 AM EDT Office Visit [facility] ADULT DENTAL [address] [place] [address] Santos Garciaaris [address] [place] [address] documented as of this encounter Visit Diagnoses Diagnosis Primary hypertension Unspecified essential hypertension documented in this encounter Care Teams Natural Resources Faculty Member Relationship Specialty Start Date End Date Marycarmen Quijano MD [address] [place] [address] PCP - General Family Medicine 03/02/23 06/20/23 documented as of this encounter
--- OUTSIDE RECORDS SUMMARY | 2025-06-29 13:25 | XMS_ITS | Encounter Summary ---
Author Organization [facility] [facility] Address [address] [place] [address] 7t [place] [address] Care Team Providers Care Assembler Clip On Sunglasses Name Role Phone Marycarmen Quijano MD Primary Care Provider [phone] Reason for Visit * Reason Comments Med Refill Encounter Details Date Type Department Care Team ([facility] Contact Info) Description 04/15/2023 Refill [facility] MEDICINE [address] [place] [address] Marycarmen Quijano MD [address] [place] [address] Social History Tobacco Use Types Packs/Day Years [...] Upcoming Encounters Date Type Department Care Team ([facility] Contact Info) Description 07/25/2025 10:15 AM EDT Office Visit [facility] ADULT DENTAL [address] [place] [address] RadhaJohana [address] [place] [address] documented as of this encounter Visit Diagnoses Not on filedocumented in this encounter Care Teams Assembler Clip On Sunglasses Relationship Specialty Start Date End Date Marycarmen Quijano MD [address] [place] [address] PCP - General Family Medicine 03/02/23 06/20/23 documented as of this encounter
--- OUTSIDE RECORDS SUMMARY | 2025-06-29 13:25 | XMS_ITS | Encounter Summary ---
Author Organization [facility] Address [address] [place] [address] 7t [place] [address] Care Team Providers Care Rating Clerk Name Role Phone Marycarmen Quijano MD Primary Care Provider [phone] Marycarmen Quijano MD Primary Care Provider [phone] Encounter Details Date Type Department Care Team (Latest Contact Info) Description 06/16/2021 Abstract [facility] CONVERSIONS Dental, Provider, DDS Social History Tobacco [...] Description 07/25/2025 10:15 AM EDT Office Visit [facility] ADULT DENTAL [address] [place] [address] Radha, Johana [address] [place] [address] documented as of this encounter Visit Diagnoses Not on filedocumented in this encounter Care Teams Rating Clerk Relationship Specialty Start Date End Date Marycarmen uQijano MD [address] [place] [address] PCP - General Family Medicine 07/26/13 02/01/23 Marycarmen Quijano MD [address] [place] [address] PCP - General Family Medicine 03/02/23 06/20/23 documented as of this encounter
--- OUTSIDE RECORDS SUMMARY | 2025-06-29 13:25 | XMS_ITS | Encounter Summary ---
Author Organization [employer] Address [address] [place] [address] 7t [place] [address] Care Team Providers Care Cloth Cutter Name Role Phone Marycarmen Quijano MD Primary Care Provider [phone] Reason for Visit * Reason Comments Med Refill Encounter Details Date Type Department Care Team ([facility] Contact Info) Description 03/07/[address] [facility] CHC MED & PEDS [address] [place], [place] [phone] Marycarmen Quijano MD [address] [place], [place] [phone] Social History Tobacco Use Types Packs/Day Years [...] Upcoming Encounters Date Type Department Care Team ([facility] Contact Info) Description 07/25/2025 10:15 AM EDT Office Visit [facility] ADULT DENTAL [address] [place] [address] Radha, Johana [address] [place] [address] documented as of this encounter Visit Diagnoses Not on filedocumented in this encounter Care Teams Cloth Cutter Relationship Specialty Start Date End Date Marycarmen Quijano MD [address] [place] [address] PCP - General Family Medicine 03/02/23 06/20/23 documented as of this encounter
--- OUTSIDE RECORDS SUMMARY | 2025-06-29 13:25 | XMS_ITS | Clinical Summary ---
Author Organization [employer] Address [address] [place] [address] 7t [place] [address] Care Team Providers Care Rope Maker Name Role Phone Unavailable Primary Care [...] BEDTIME 2 Active Blood Glucose Monitoring Suppl (I AND [employer]) w/Device kit TEST BLOOD SUGAR THREE [...] by mouth at bed time. Active Creon 19228-41323 units capsule 3 Active pantoprazole (ProtoNix) 40 [...] 3 Active ergocalciferol (Vitamin D2) 1.25 MG (03783 UT) capsule TAKE 1 CAPSULE BY MOUTH [...] Description 05/29/2025 1:20 PM EDT Office Visit [facility] [address] [place] [address] Christianne John MD Diarrhea, unspecified type (Primary Dx) 05/29/2025 Telephone [facility] MEDICINE [address] [place] [address] Christianne John MD 05/29/2025 Orders [...] AM EDT Office Visit [facility] ADULT DENTAL [address] [place] [address] Johana Garcia [address] [place] [address] Health Maintenance Due Date Last Done Comments [...] Blood Count 14.5(H) 4.8 - 10.8 X10*3/uL [facility] Red Blood Count 4.98 4.20 - 5.50 X10*6/uL [facility] Hemoglobin 12.4 12.0 - 16.0 g/dl [facility] Hematocrit 38.9 37.0 - 47.0 % [facility] Mean Corpuscular Volume 78.1(L) 80.0 - 98.0 fL [facility] Mean Corpuscular Hemoglobin 24.9(L) 27.0 - 33.0 pg [facility] Mean Corpuscular HGB Conc 31.9 31.0 - 35.0 g/dl [facility] Red Cell Distribution Width 15.6 11.0 - 16.0 % [facility] Platelet Count 417(H) 160 - 400 X10*3/uL [facility] Mean Platelet Volume 9.5 9.4 - 12.3 fL [facility] Neutrophils Percent Auto 76.6(H) 45 - 73 % [facility] Imm Gran Pct Auto 0.4 0.0 - 0.4 % [facility] Lymphocytes Percent Auto 15.5(L) 20 - 40 % [facility] Monocytes Percent Auto 5.5 2 - 11 % [facility] Eosinophils Percent Auto 1.5 0 - 4 % [facility] Basophils Percent Auto 0.5 0 - 2 % [facility] NRBC Pct Auto 0.0 0.0 - 0.2 /100WBC [facility] Neutrophils Absolute Auto 11.1(H) 2.0 - 8.3 x10*3/uL [facility] Imm Gran Abs Auto 0.06(H) 0.00 - 0.03 X10*3/uL [facility] Lymphocytes Absolute Auto 2.3 1.2 - 4.9 X10*3/uL [facility] Monocytes Absolute Auto 0.8 0.1 - 1.2 X10*3/uL [facility] Eosinophils Absolute Auto 0.2 0.0 - 0.4 X10*3/uL [facility] Basophils Absolute Auto 0.1 0.0 - 0.2 X10*3/uL [facility] NRBC Abs Auto 0.000 0.0 - 0.012 X10*3/uL [facility] Blood Venous blood specimen / Unknown 05/29/2025 2:12 PM EDT 05/29/2025 3:57 PM EDT Christianne John MD LAB BLOOD ORDERABLES Final Result Performing Organization Address [facility]/ZIP Co de Phone Number [facility] [address] [place] [phone] * (ABNORMAL) C-reactive Protein (05/29/2025 2:12 PM EDT) Pathologist [facility] C Reactive Protein 2.65(H) < or = 0.50 mg/dL [facility] Blood Venous blood specimen / Unknown 05/29/2025 2:12 PM EDT 05/29/2025 3:57 PM EDT Christianne John MD LAB BLOOD ORDERABLES Final Result Performing Organization Address [facility]/ZIP Co de Phone Number [facility] [address] [place] [phone] * (ABNORMAL) Basic Metabolic Panel (05/29/2025 2:12 PM EDT) Only the most recent of2 resultswithin the time period is included. Pathologist [facility] Sodium 141 135 - 145 mmol/L [facility] Potassium 4.3 3.3 - 5.1 mmol/L [facility] Chloride 107 96 - 108 mmol/L [facility] Carbon Dioxide 24 22 - 29 mmol/L [facility] Anion Gap 14 12 - 20 [facility] Urea Nitrogen (BUN) 20(H) 9 - 16 mg/dL [facility] Creatinine, Serum 1.53(H) 0.5 - 1.4 mg/dL [facility] Estimated Glomerular Filt Rate 33 [facility] Comment:Chronic Kidney Disea se: Estimated GFR < 60 mL/min/1.27u3Jjtsnj Kidney Disease: Estimated GFR < 15 mL/min/1.73m2 Glucose 117(H) 60 - 115 mg/dL [facility] Calcium 9.8 8.4 - 10.2 mg/dL [facility] 05/29/2025 2:12 PM EDT 05/29/2025 3:57 PM EDT Generic External Data Provider LAB BLOOD ORDERAB LES Final Result [facility] [address] [place] [phone] * POCT Influenza B manually resulted (05/29/2025 2:04 PM EDT) [facility] Rapid Influenza B Ag Negative Negative, Indeterminate QC Media Lot # [id number] Lot# Expiration Date [id number] Swab 05/29/2025 2:04 PM EDT Result [facility] Christianne oJhn MD POINT OF CARE TEST ENTER/E DIT ORDERABLES Final Result * POCT Influenza A manually resulted (05/29/2025 2:04 PM EDT) [facility] Rapid Influenza A Ag Negative Negative, Indeterminate QC Media Lot # [id number] Lot# Expiration Date 100,826 Swab Nasopharyngeal structure / Unknown 05/29/2025 2:04 PM EDT Christianne John MD POINT OF CARE TEST ENTER/E DIT ORDERABLES Final Result * POCT Rapid COVID Ag (05/29/2025 2:03 PM EDT) [facility] Rapid COVID Ag Negative QC Media Lot # [id number] Lot# Expiration Date [id number] Swab 05/29/2025 2:03 PM EDT Christianne John MD POINT OF CARE TEST ENTER/E DIT ORDERABLES Final Result * HEMOGLOBIN A1C (07/09/2022 10:40 AM EDT) Estimated Average Glucose 151 mg/dL [facility] Comment: eAG = Estimated average glucose which is %A1C expressed as average glucose, using the formula of the [id number]-[id number] Average Glucose study (ADAG), Diabetes Care, Vol.31,#8, [...] [facility] Comment: Desirable LDL: less than [...] [facility] Comment: NOTE: For -Danish individuals, multiply the result by 1.210. Chronic [...] Historical Provider HISTORICAL/NON ORDERABLE LABS Final Result [facility] [address] from Last 3 Months or Most Recently Relevant to Health Maintenance Insurance [facility] [employer] (HMO D-SNP) D[facility]AL [facility]
--- OUTSIDE RECORDS SUMMARY | 2025-06-29 13:25 | XMS_ITS | Encounter Summary ---
Author Organization [employer] [facility] Address [address] [place] [address] 7t [place] [address] Care Team Providers Care Lpn Care Manager Name Role Phone Unavailable Primary Care Provider Unavailabl e Reason for Visit * Reason Comments Med Refill Encounter Details Date Type Department Care Team (Late st Contact Info) Description 01/19/2024 Refill [facility] MEDICINE [address] [place] [address] Christianne John MD [address] [place] [address] Vitamin deficiency Social History Tobacco Use Types [...] Visit [facility] ADULT DENTAL [address] [place] [address] Santos Garciaaris [address] [place] [address] documented as of this encounter Visit Diagnoses Diagnosis Vitamin deficiency Unspecified vitamin deficiency documented in this encounter
--- OUTSIDE RECORDS SUMMARY | 2025-06-29 13:25 | XMS_ITS | Encounter Summary ---
Author Organization [employer] [facility] Address [address] [place] [address] 7t [place] [address] Care Team Providers Care Clerical Assigner Name Role Phone Unavailable Primary Care Provider Unavailabl e Reason for Visit * Reason Comments Med Refill Encounter Details Date Type Department Care Team (Late st Contact Info) Description 12/02/2023 Refill [facility] MEDICINE [address] [place] [address] Christianne John MD [address] [place] [address] Moderate persistent asthma, unspecified whether complicated Social [...] Description 07/25/2025 10:15 AM EDT Office Visit [facility] ADULT DENTAL [address] [place] [address] Radha, Johana [address] [place] [address] documented as of this encounter Visit Diagnoses Diagnosis Moderate persistent asthma, unspecified whether complicated documented in this encounter
--- OUTSIDE RECORDS SUMMARY | 2025-06-29 13:25 | XMS_ITS | Encounter Summary ---
Author Organization [employer] [facility] Address [address] [place] [address] 7t [place] [address] Care Team Providers Care Christmas Bell Ringer Name Role Phone Unavailable Primary Care Provider Unavailabl e Reason for Visit * Reason Comments Med Refill Encounter Details Date Type Department Care Team (Late st Contact Info) Description 12/01/2023 Refill [facility] MEDICINE [address] [place] [address] Christianne John MD [address] [place] [address] Moderate persistent asthma, unspecified whether complicated Social [...] Description 07/25/2025 10:15 AM EDT Office Visit [facility] ADULT DENTAL [address] [place] [address] Radha, Johana [address] [place] [address] documented as of this encounter Visit Diagnoses Diagnosis Moderate persistent asthma, unspecified whether complicated documented in this encounter
--- OUTSIDE RECORDS SUMMARY | 2025-06-29 13:25 | XMS_ITS | Encounter Summary ---
Author Organization [facility] Address [address] [address] Phone Care Team Providers Care Supervisor Home Restoration Service Name Role Phone Marycarmen Quijano MD Primary Care Provider [phone] Reason for Visit * Reason Onset Date Comments Med Refill 06/27/2025 Encounter Details Date Type Department Care Team (Late st Contact Info) Description 06/27/2025 Refill [facility] [address] [address] Ariane Sexton [address] [address] Stage 3b chronic kidney disease (HCC); Persistent proteinuria; Hypertensive renal disease Social History Tobacco Use [...] on file documented as of this encounter Miscellaneous Notes * Telephone Encounter - Ariane Sexton - 06/27/2025 3:18 PM EDT [facility] see [facility] [place] . No longer our pt. documented in this encounter Plan of Treatment Not on file documented as of this encounter Visit Diagnoses Diagnosis Stage 3b chronic kidney disease (HCC) Persistent proteinuria Hypertensive renal disease documented in this encounter Care Teams Supervisor Home Restoration Service Relationship Specialty Start Date End Date Marycarmen Quijano MD [address] [place] [address] PCP - General 10/14/20 documented as of this encounter
== END 2025-06-29 11:30 | disposition home or self-care (01) ==
LOC: HO.US 11:29
PROVIDERS: PCP Internal Medicine; Visit Provider Internal Medicine Hypertension Specialist
DX: I12.9 Hypertensive chronic kidney disease with stage 1 through stage 4 chronic kidney disease, or unspecified chronic kidney disease (principal); N18.32 Chronic kidney disease, stage 3b
CPT/HCPCS: 76775

== ENCOUNTER → 2025-06-29 11:31 | Outpatient (BNV) | payer OTHER, SELFPAY | PROVIDERS: PCP Internal Medicine; Visit Provider Radiology Diagnostic Radiology | DX: N20.0 Calculus of kidney (principal); I10 Essential (primary) hypertension | CPT/HCPCS: 76775 ==

== ENCOUNTER 2025-07-26 09:42 | Outpatient (REF) | payer OTHER, SELFPAY ==
--- OUTSIDE RECORDS SUMMARY | 2025-07-25 10:15 | XMS_ITS | Encounter Summary ---
Author Organization [employer] Address [address] [place] [address] 7[address] [place] [address] Care Team Providers Care Surveying Or Spatial Science Technician Name Role Phone Unavailable Primary Care Provider Unavailabl e Reason for Visit * Reason Comments Routine Cleaning Dental Exam x-rays Perio chart Encounter Details Date Type Department Care Team ([facility] st Contact Info) Description 07/25/2025 10:15 AM EDT Office Visit [facility] [address] [place] [address] Johana Garcia [address] [place] [address] Partially edentulous mandible, unspecified edentulism class (Primary Dx); Localized gingival recession, severe; Dental plaque; Extruded tooth Social History Tobacco Use Types Packs/Day Years [...] Sign Reading Time Taken Comments Blood Pressure 132/78 07/25/2025 9:55 AM EDT Pulse - - Temperature - - Respiratory Rate - - Oxygen Saturation - - Inhaled Oxygen Concentration - - Weight - - Height - - Body Mass Index - - documented in this encounter Progress Notes * Johana Garcia - 07/25/2025 10:15 AM EDT In Aprilt had a Heart valve replacement. PT Needs AB premedication. Appoint at 10:15 am. For P. Exam, Dr. Caldwell x-rays, perio chart, prophy. Patient ID: Louis Bean is a 80 y.o. adult. Time Out: Timeout Date: 07/26/25, Timeout Time: 0956 (P. exam, x-rays. Prophy, Perio chart) Location: [facility] Tooth: Maxilla and Mandible Procedure: Exam, X-rays, Prophylaxis, and Perio chart, fluoride Verified the above with patient, senior office support assistant sosa, and provider. Confirmed via patient's chart, intraorally and by radiographs. Court Transcriber: not applicable Medical Hx: Vitals: Blood pressure 132/78. Medications, Med Hx reviewed with patient and updated in chart. Treatment Provided Dental procedures in this visit D0274 - BITEWINGS - 4 RADIOGRAPHIC IMAGES (Completed) Service provider: Johana Lynne provider: Moy Caldwell DDS D0220 - INTRAORAL - PERIAPICAL FIRST RADIOGRAPHIC IMAGE (Completed) Service provider: Johana Garcia [place] provider: Moy Caldwell DDS D1110 - PROPHYLAXIS - ADULT (Completed) Service provider: Johana Lynne provider: Moy Caldwell DDS D1206 - TOPICAL APPLICATION OF FLUORIDE VARNISH (Completed) Service provider: Johana Garcia [place] provider: Moy Caldwell DDS D1330 - ORAL HYGIENE INSTRUCTIONS (Completed) Service provider: Johana Lynne provider: Moy Caldwell DDS D0230 - INTRAORAL - PERIAPICAL EACH ADDITIONAL RADIOGRAPHIC IMAGE (Completed) Service provider: Johana Garcia [place] provider: Moy Caldwell DDS Instruments Used: Ultrasonic Scalers, Hand Scalers, and Prophy angle Fluoride: 5% NaF varnish applied and POI given Oral Cancer Screening: No lesions Head/Neck Exam: No Lesions Calculus: None Plaque: Light and Moderate Stain: discolored on exposed roots Bleeding: Light Gingiva: severe recession, pink OH: fair Perio Chart: Completed Periodontally involved maintaining. Oral hygiene instructions provided to patient including brushing technique and flossing. Recommendations: Vaughan two times daily, modified espinosa technique, Floss daily, Electric toothbrush, Soft bristle toothbrush, Vaughan Tongue, Anti-sensitivity toothpaste, fluoride mouthwash. Recall Frequency: 6 mo NV: 6 months prophy, fluoride Hygienist: Johana Garcia RDH * Moy Caldwell DDS - 07/25/2025 10:15 AM EDT Dental procedures in this visit D0274 - BITEWINGS - 4 RADIOGRAPHIC IMAGES (Completed) Service provider: Johana Garcia Billing provider: Moy Caldwell DDS D0220 - INTRAORAL - PERIAPICAL FIRST RADIOGRAPHIC IMAGE (Completed) Service provider: Johana Garcia Billing provider: Moy Caldwell DDS D1110 - PROPHYLAXIS - ADULT (Completed) Service provider: Johana Garcia Billing provider: Moy Caldwell DDS D1206 - TOPICAL APPLICATION OF FLUORIDE VARNISH (Completed) Service provider: Johana Garcia Billing provider: Moy Caldwell DDS D1330 - ORAL HYGIENE INSTRUCTIONS (Completed) Service provider: Johana Garcia Billing provider: Moy Caldwell DDS D0230 - INTRAORAL - PERIAPICAL EACH ADDITIONAL RADIOGRAPHIC IMAGE (Completed) Service provider: Johana Garcia Billing provider: Moy Caldwell DDS D0120 - PERIODIC ORAL EVALUATION - ESTABLISHED PATIENT (Completed) Service provider: Moy Caldwell DDS [place] provider: Moy Caldwell DDS Patient ID: Louis Bean is a 80 y.o. adult. Time Out: Timeout Date: 07/26/25, Timeout Time: 0956 (P. exam, x-rays. Prophy, Perio chart) Location: [facility] Tooth: Maxilla and Mandible Procedure: Exam, X-rays, Prophylaxis, and Perio chart, fluoride Verified the above with patient, senior office support assistant sosa, and provider. Confirmed via patient's chart, intraorally and by radiographs. Court Transcriber: not applicable Chief Complaint Patient presents with Routine Cleaning Dental Exam x-rays Perio chart Medical Hx: Vitals: Blood pressure 132/78. Medical History[1] Medications: Encounter Medications[2] Pt took Amoxicillin 4 caps one hour prior to dental TX, due to Pt has cardiac valve replacement. Objective HPI Soft Tissue Exam No findings documented this visit Tissues are normal. Head and Neck Exam: all structured ar within normal limits. OCS: negative Dental Exam Radiographic Interpretation: Associated radiographs for today's visit were reviewed and finding(s) were discussed with the patient. Findings include: Missing teeth, extensive recession, extruded teeth as indicated in chart, no mobility detected at this time. Pt content with partial dentures fit. Hard Tissue Exam: No decay Perio Dx: Generalized Chronic Periodontitis Stage: III Grade: B Reference tooth chart for additional findings. Oral Cancer Risk: Minimal risk Oral Hygiene Instructions: Vaughan two times daily, modified espinosa technique, Floss daily, Electric toothbrush, Soft bristle toothbrush, Vaughan Tongue, Anti- sensitivity toothpaste, fluoride mouthwash. Caries Risk Assessment: Medium- one risk factor, due to slight xerostomia. No active decay at this time. Assessment/Plan Pt to continue to do correct oral and denture care at home, and have hygiene appoints for Prophy and fluoride every 6 months. Patient tolerated procedure well, all questions answered and expressed understanding. Dismissed in good condition. NV: 6 months prophy, fluoride TX Lithograph Printer: Johana Garcia RDH Dentist: Moy Caldwell DDS [1] Past Medical History: Diagnosis Date Arthritis Asthma Diabetes mellitus (HCC) Hypertension [2] Outpatient Encounter Medications as of 07/25/2025 Medication Sig Dispense Refill amLODIPine (Norvasc) 10 MG tablet Take 1 tablet by mouth every morning 30 tablet 5 amoxicillin (Amoxil) 500 MG capsule Take 4 tabs (2 grams) 1 hour prior to dental procedure 4 capsule 3 Aspirin Low Dose 81 MG EC tablet Take 81 mg by mouth at bedtime. atorvastatin (Lipitor) 40 MG tablet TAKE 1 TABLET BY MOUTH AT BEDTIME 30 tablet 11 Bisacodyl EC 5 MG EC tablet TAKE 2 TABLETS BY MOUTH EVERY DAY AT BEDTIME Blood Glucose Monitoring Suppl (DRB Systems Lite) w/Device kit TEST BLOOD SUGAR THREE TIMES DAILY brimonidine (AlphaGAN P) 0.2 % ophthalmic solution INSTILL 1 DROP IN EACH EYE TWICE DAILY budesonide-formoterol (Symbicort) 160-4.5 MCG/ACT inhaler Inhale 2 puffs 2 times daily. calcium acetate (Phoslo) 667 MG capsule Take 1 capsule by mouth 2 times daily. carvedilol (Coreg) 25 MG tablet cetirizine (ZyrTEC) 5 MG tablet cilostazol (Pletal) 100 MG tablet TAKE 1 TABLET BY MOUTH TWICE DAILY IN THE MORNING AND AT BEDTIME clopidogrel (Plavix) 75 MG tablet Take 75 mg by mouth in the morning. Creon 07547-33093 units capsule cyanocobalamin (Vitamin B-12) 1000 MCG tablet Take 1,000 mcg by mouth in the morning. D3-1000 25 MCG (1000 UT) capsule Take 25 mcg by mouth in the morning. ergocalciferol (Vitamin D2) 1.25 MG (12848 UT) capsule TAKE 1 CAPSULE BY MOUTH ONCE WEEKLY ON WEDNESDAY MORNING 12 capsule 1 esomeprazole (NexIUM) [address] capsule Ferrous Sulfate (iron) 325 (65 Fe) MG tablet TAKE 1 TABLET BY MOUTH ONCE WEEKLY ON WEDNESDAY MORNING fluticasone (Flonase) 50 MCG/ACT nasal spray folic acid (Folvite) 1 MG tablet TAKE 1 TABLET BY MOUTH EVERY MORNING 90 tablet 3 FREESTYLE LITE test strip TEST BLOOD SUGAR THREE TIMES DAILY furosemide (Lasix) 40 MG tablet Take 40 mg by mouth Once per day. gabapentin (Neurontin) 300 MG capsule GAS RELIEF 125 MG capsule TAKE 1 TABLET BY MOUTH EVERY 8 HOURS NEEDED FOR PAIN FOR GAS HM ClearLax 17 GM/SCOOP powder hydrALAZINE (Apresoline) 25 MG tablet Take 1 tablet by mouth twice daily 180 tablet 3 ipratropium (Atrovent) 0.03 % nasal spray USE 2 SPRAYS IN EACH NOSTRIL TWICE DAILY Jardiance 10 MG IVÁN 1 TABLETA POR LA BOCA CADA SUKHI EN LA MANANA latanoprost (Xalatan) 0.005 % ophthalmic solution losartan (Cozaar) 50 MG tablet Take 50 mg by mouth in the morning. metoprolol succinate XL (Toprol-XL) 100 MG 24 hr tablet Take by mouth at bed time. montelukast (Singulair) 10 MG tablet TAKE 1 TABLET BY MOUTH EVERY EVENING 90 tablet 3 NovoLOG FLEXPEN 100 UNIT/ML pen omeprazole (PriLOSEC) [address] capsule Take 1 capsule by mouth Once per day. pantoprazole (ProtoNix) 40 MG EC tablet Take 40 mg by mouth in the morning. predniSONE (Deltasone) 10 MG tablet Take 10 mg by mouth Once per day. senna (Senokot) 8.6 MG tablet Take 2 tablets by mouth at bedtime. sucralfate (Carafate) 1 g tablet TAKE 2 TABLETS BY MOUTH ONCE DAILY torsemide (Demadex) 20 MG tablet Take 1 tablet by mouth twice daily 180 tablet 3 Toujeo SoloStar 300 UNIT/ML injection Tradjenta 5 MG tablet Take 5 mg by mouth in the morning. Trelegy Ellipta 200-62.5-25 MCG/ACT aerosol powder UltiGuard SafePack Pen Needle 32G X 4 MM [facility] [place] facility-administered encounter medications on file as of 07/25/2025. documented in this encounter Plan of Treatment Upcoming Encounters Date Type Department Care Team (Late st Contact Info) Description 01/28/2026 1:30 PM EDT Office Visit [facility] ADULT [facility] [address] [place], [place] [phone] Radha, Johana [address] [place], [place] [phone] Scheduled Orders Name Type Priority Associated Diagnoses Orde r Schedule PROPHYLAXIS - ADULT Dental Routine 1 Occ urrences starting 07/25/2025 TOPICAL APPLICATION OF FLUORIDE VARNISH Dental Routine 1 Occurrences s tarting 07/25/2025 CASE PRESENTATION, DETAILED AND EXTENSIVE TREATMENT PLANNING Dental Routine 1 Occurrences starting 07/25/2025 documented as of this encounter Procedures Procedure Name Priority Date/Time Associated Diagnosis Comments TOPICAL APPLICATION OF FLUORIDE VARNISH Routine 07/25/2025 10:15 AM EDT Localized gingival recession, severe Dental plaque PROPHYLAXIS - ADULT Routine 07/25/2025 1 0:15 AM EDT Dental plaque PERIODIC ORAL EVALUATION - ESTABLISHED PATIENT Routine 07/25/2025 10:15 AM EDT ORAL HYGIENE INSTRUCTIONS Routine 07/25/2025 10:15 AM EDT Partially edentulous mandible, unspecified edentulism class Localized gingival recession, severe Dental plaque INTRAORAL - PERIAPICAL FIRST RADIOGRAPHIC IMAGE Routine 07/25/2025 10:15 AM EDT Partially edentulous mandible, unspecified edentulism class Localized gingival recession, severe INTRAORAL - PERIAPICAL EACH ADDITIONAL RADIOGRAPHIC IMAGE Routine 07/25/2025 10:15 AM EDT Partially edentulous mandible, unspecified edentulism class Localized gingival recession, severe Dental plaque BITEWINGS - 4 RADIOGRAPHIC IMAGES Routine 07/25/2025 10:15 AM EDT Partially edentulous mandible, unspecified edentulism class Localized gingival recession, severe documented in this encounter Visit Diagnoses Diagnosis Partially edentulous mandible, unspecified edentulism class- Primary Localized gingival recession, severe Dental plaque Accretions on teeth Extruded tooth Vertical displacement of teeth documented in this encounter
--- NOTE | ~2025-07-26 | MM_ITS ---
EXAMINATION: DXA BONE DENSITY AXIAL HISTORY: Z78.0 - Asymptomatic menopausal state TECHNIQUE: [facility] Dual energy absorptiometry (DEXA) of the lumbar spine, total left hip, and femoral neck was performed. COMPARISON: Comparison is made with the prior examination dated 02/26/2023. FINDINGS: The bone mineral density of the lumbar spine is 1.237 g/cm2, corresponding to a T-score of 0.5, and a Z-score of 1.7. This is indicative of normal bone mineral density. This represents a BMD change of 4.1% compared to the prior exam. This is statistically significant. The bone mineral density of the left total hip is 0.979 g/cm2, corresponding to a T-score of -0.2, and a Z-score of 1.3. This is indicative of normal bone mineral density. This represents a BMD change of 8.7% compared to the prior exam. This is statistically significant. The bone mineral density of the left femoral neck is 0.837 g/cm2, corresponding to a T-score of -1.4, and a Z-score of 0.3. This is indicative of osteopenia. This represents a BMD change of 8.6% compared to the prior exam. FRACTURE RISK: The FRAX index suggests a ten year probability of major osteoporotic fracture of 6.8%, and of hip fracture 1.5%. MM/XR DEXA axial skeleton IMPRESSION: Based on bone mineral density, and according to World Health Organization (WHO) criteria, the diagnosis is consistent with osteopenia. Statistically, 68% of repeat scans fall within 1 SD (+/- 0.010 g/cm2 for AP spine L1-L4) and 1 SD (+/- 0.012 g/cm2 for femur total) FRAX is a trademark of the [employer] Metabolic Bone Disease, a World Health Organization (WHO) Collaborating Center. Electronically signed by: Farhad Patel MD 07/26/2025 10:58 AM EDT
--- OUTSIDE RECORDS SUMMARY | 2025-07-26 11:03 | XMS_ITS | Encounter Summary ---
Author Organization [facility] Address [address]t [place] [address] Care Team Providers Care Broadcast Chief Engineer Name Role Phone Marycramen Quijano MD Primary Care Provider [phone] Reason for Visit * Reason Comments Med Refill Encounter Details Date Type Department Care Team ([facility] Contact Info) Description 04/12/2023 Refill [facility] [address] [place] [address] Jose Johnson MD [address] [place] [address] Social History Tobacco Use Types Packs/Day Years [...] Upcoming Encounters Date Type Department Care Team ([facility] Contact Info) Description 01/28/2026 1:30 PM EDT Office Visit [facility] [address] [place] [address] RadhaJohana [address] [place] [address] documented as of this encounter Visit Diagnoses Not on filedocumented in this encounter Care Teams Broadcast Chief Engineer Relationship Specialty Start Date End Date Marycarmen Quijano MD [address] [place] [address] PCP - General Family Medicine 03/02/23 06/20/23 documented as of this encounter
--- OUTSIDE RECORDS SUMMARY | 2025-07-26 11:03 | XMS_ITS | Encounter Summary ---
Author Organization [employer] Address [address] [place] [address] 7[address] [place] [address] Care Team Providers Care Pattern Chart Writer Name Role Phone Marycarmen Quijano MD Primary Care Provider [phone] Reason for Visit * Reason Comments Med Refill Encounter Details Date Type Department Care Team ([facility] Contact Info) Description 03/07/2023 Refill [facility] [address] [place], [place] [phone] Marycarmen Quijano MD [address] [place], [place] [phone] Social History Tobacco Use Types Packs/Day Years [...] Encounters Date Type Department Care Team ([facility] Contact Info) Description 01/28/2026 1:30 PM EDT Office Visit [facility] ADULT [facility] [address] [place] [address] Radha, Johana [address] [place] [address] documented as of this encounter Visit Diagnoses Not on filedocumented in this encounter Care Teams Pattern Chart Writer Relationship Specialty Start Date End Date Marycarmen Quijano MD [address] [place] [address] PCP - General Family Medicine 03/02/23 06/20/23 documented as of this encounter
--- OUTSIDE RECORDS SUMMARY | 2025-07-26 11:03 | XMS_ITS | Encounter Summary ---
Author Organization [facility] [facility] Address [address] [place] [address] 7t [place] [address] Care Team Providers Care Assistant Art Director Name Role Phone Marycarmen Quijano MD Primary Care Provider [phone] Reason for Visit * Reason Comments Med Refill Encounter Details Date Type Department Care Team ([facility] Contact Info) Description 02/06/2023 Refill [facility] MED[facility] [address] [place] [address] Marycarmen Quijano MD [address] [place] [address] Social History Tobacco Use Types Packs/Day Years [...] Team ([facility] Contact Info) Description 01/28/2026 1:30 PM EDT Office Visit [facility] ADULT DENTAL [address] [place] [address] RadhaJohana [address] [place] [address] documented as of this encounter Visit Diagnoses Not on filedocumented in this encounter Care Teams Assistant Art Director Relationship Specialty Start Date End Date Marycarmen Quijano MD [address] [place] [address] PCP - General Family Medicine 03/02/23 06/20/23 documented as of this encounter
--- OUTSIDE RECORDS SUMMARY | 2025-07-26 11:03 | XMS_ITS | Encounter Summary ---
Author Organization [employer] Address [address] [place] [address] [address] [place] [address] Care Team Providers Care Ship Boat Or Barge Mate Name Role Phone Marycarmen Quijano MD Primary Care Provider [phone] Reason for Visit * Reason Comments Med Refill Encounter Details Date Type Department Care Team ([facility] Contact Info) Description 03/10/2023 Refill [facility] [address] [place], [place] [phone] Marycarmen Quijano MD [address] [place] [address] Primary hypertension Social History Tobacco Use Types [...] Upcoming Encounters Date Type Department Care Team ([facility] Contact Info) Description 01/28/2026 1:30 PM EDT Office Visit [facility] ADULT DENT[facility] [address] [place] [address] Santos Garciaaris [address] [place] [address] documented as of this encounter Visit Diagnoses Diagnosis Primary hypertension Unspecified essential hypertension documented in this encounter Care Teams Ship Boat Or Barge Mate Relationship Specialty Start Date End Date Marycarmen Quijano MD [address] [place] [address] PCP - General Family Medicine 03/02/23 06/20/23 documented as of this encounter
--- OUTSIDE RECORDS SUMMARY | 2025-07-26 11:03 | XMS_ITS | Encounter Summary ---
Author Organization [employer] Address [address] [place] [address] [address]t [place] [address] Care Team Providers Care Developmental Therapist Name Role Phone Marycarmen Quijano MD Primary Care Provider [phone] Reason for Visit * Reason Comments Med Refill Encounter Details Date Type Department Care Team ([facility] Contact Info) Description 03/03/2023 Refill [facility]S [address] [place], [place] [phone] Marycarmen Quijano MD [address] [place] [address] Primary hypertension Social History Tobacco Use Types [...] Upcoming Encounters Date Type Department Care Team ([facility] Contact Info) Description 01/28/2026 1:30 PM EDT Office Visit [facility] ADULT D[facility] [address] [place] [address] RadhaJohana [address] [place] [address] documented as of this encounter Visit Diagnoses Diagnosis Primary hypertension Unspecified essential hypertension documented in this encounter Care Teams Developmental Therapist Relationship Specialty Start Date End Date Marycarmen Quijano MD [address] [place] [address] PCP - General Family Medicine 03/02/23 06/20/23 documented as of this encounter
--- OUTSIDE RECORDS SUMMARY | 2025-07-26 11:03 | XMS_ITS | Encounter Summary ---
Author Organization [facility] Address [address] [place] [address] [address] [place] [address] Care Team Providers Care Chalk Tester Name Role Phone Marycarmen Quijano MD Primary Care Provider [phone] Reason for Visit * Reason Comments Med Refill Encounter Details Date Type Department Care Team ([facility] Contact Info) Description 04/04/2023 Refill [facility] MED[facility] [address] [place] [address] Marycarmen Quijano MD [address] [place] [address] Social History Tobacco Use Types Packs/Day Years [...] Care Team ([facility] Contact Info) Description 01/28/2026 1:30 PM EDT Office Visit [facility] ADULT DENTAL [address] [place] [address] RadhaJohana [address] [place] [address] documented as of this encounter Visit Diagnoses Not on filedocumented in this encounter Care Teams Chalk Tester Relationship Specialty Start Date End Date Marycarmen Quijano MD [address] [place] [address] PCP - General Family Medicine 03/02/23 06/20/23 documented as of this encounter
--- OUTSIDE RECORDS SUMMARY | 2025-07-26 11:03 | XMS_ITS | Encounter Summary ---
Author Organization [facility] Address [address] [place] [address] 7t [place] [address] Care Team Providers Care Clay Press Operator Name Role Phone Marycarmen Quijano MD Primary Care Provider [phone] Reason for Visit * Reason Comments Med Refill Encounter Details Date Type Department Care Team ([facility] Contact Info) Description 04/15/2023 Refill [facility] MED[facility] [address] [place] [address] Marycarmen Quijano MD [address] [place] [address] Social History Tobacco Use Types Packs/Day Years [...] Department Care Team ([facility] Contact Info) Description 01/28/2026 1:30 PM EDT Office Visit [facility] ADULT D[facility] [address] [place] [address] RadhaJohana [address] [place] [address] documented as of this encounter Visit Diagnoses Not on filedocumented in this encounter Care Teams Clay Press Operator Relationship Specialty Start Date End Date Marycarmen Quijano MD [address] [place] [address] PCP - General Family Medicine 03/02/23 06/20/23 documented as of this encounter
--- OUTSIDE RECORDS SUMMARY | 2025-07-26 11:04 | XMS_ITS | Encounter Summary ---
Author Organization [employer] [facility] Address [address] [place] [address] [address] [place] [address] Care Team Providers Care Product Management Consultant Name Role Phone Unavailable Primary Care Provider Unavailabl e Reason for Visit * Reason Comments Med Refill Encounter Details Date Type Department Care Team (Late Contact Info) Description 01/19/2024 Refill [facility] MED[facility] [address] [place] [address] Christianne John MD [address] [place] [address] Vitamin deficiency Social History Tobacco Use Types [...] Description 01/28/2026 1:30 PM EDT Office Visit [facility] ADULT DENTAL [address] [place] [address] Santos Garciaaris [address] [place] [address] documented as of this encounter Visit Diagnoses Diagnosis Vitamin deficiency Unspecified vitamin deficiency documented in this encounter
--- OUTSIDE RECORDS SUMMARY | 2025-07-26 11:04 | XMS_ITS | Encounter Summary ---
Author Organization [facility] Address [address] [place] [address] 7 [place] [address] Care Team Providers Care Flat Surfacer Jewel Name Role Phone Marycarmen Quijano MD Primary Care Provider [phone] Marycarmen Quijano MD Primary Care Provider [phone] Reason for Visit * Reason Comments Med Refill Encounter Details Date Type Department Care Team (Late st Contact Info) Description 11/10/2022 Refill [facility] MEDICINE [address] [place], [place] [phone] Marycarmen Quijano MD [address] [place], [place] [phone] Social History Tobacco Use Types Packs/Day Years [...] Description 01/28/2026 1:30 PM EDT Office Visit [facility] ADULT DENTAL [address] [place], [place] [phone] Radha, Johana [address] [place] [address] documented as of this encounter Visit Diagnoses Not on filedocumented in this encounter Care Teams Flat Surfacer Jewel Relationship Specialty Start Date End Date Marycarmen Quijano MD [address] [place] [address] PCP - General Family Medicine 07/26/13 02/01/23 Marycarmen Quijano MD [address] [place] [address] PCP - General Family Medicine 03/02/23 06/20/23 documented as of this encounter
--- OUTSIDE RECORDS SUMMARY | 2025-07-26 11:04 | XMS_ITS | Data Portability ---
Author Organization [employer] [facility] Address [address] [place] [phone] Care Team Providers Care Svp Digital Sales Food & Cooking Name Role Phone HIM CCA OTHER Assessment Encounter Date Assessment Date Assessment LastModified by Organization Details LastModified Time 04/08/2023 04/08/2023 77 YOF with CHF, COPD recent hospitalization being seen for report of low 02 sat at home in the 80s, On mixer operator vacuum pan salt exam sat 91% on 2L pt in [...] follow up w pcp in 1 week [email or web address] Not available 09/18/2024 20:08:58 Plan of Treatment Reminders Order Date Submit Date Provider Last Modified By Organization Details Last Modified Time Details Appointments None recorded. Lab rapid SARS CoV 2 Ag, QL IA, respiratory specimen [address] [facility], [address] [place] [address], [id number] 4 09:06:35 rapid flu (A+B) [address] [facility], [address] [place] [address], [id number] 4 09:06:54 CBC w/ auto diff 2021 022 [facility] (Centralized Electronic Ordering - All Locations), Patient Can Go To The Location Of Their Choice, [id number] 2 00:05:50 CMP, serum or plasma 2021 [facility] (Centralized Electronic Ordering - All Locations), Patient Can Go To The Location Of Their Choice, [address] 19:37:00 unlisted lab - urinalysis w/reflex culture 2021 [facility] (Centralized Electronic Ordering - All Locations), Patient Can Go To The Location Of Their Choice, [address] 01:53:39 cmp, whole blood + gl[email or web address], [address] [place] [address], [id number] 2 16:24:03 urinalysis, dipstick 2021 [email or web address], [address] [place] [address], [id number] 16:24:43 Referral None recorded. Procedures None recorded. Surgeries None recorded. Imaging None recorded. Medication Orders prednisone 10 mg tablet 2023 [facility], [address] [place] [address], [id number], 4 12:30:23 azithromyci n 250 mg tablet 2023 024 [facility], [address] [place] [address], [id number], 4 12:30:23 azithromyci n 250 mg tablet 2023 024 [facility], [address] [place] [address], [id number], 4 20:08:15 prednisone 20 mg tablet 2023 024 [email or web address] [facility], [address] [place] [address], [id number], 4 20:08:15 ipratropium 0.5 mg-albutero l 3 mg (2.5 mg base)/3 mL nebulizatio n soln 2023 024 [email or web address] [facility], [address] [place] [address], [id number], 20:08:15 Patient TargetsNo targets recorded. Patient InstructionsNo [...] Leukocytes neg Not Available Main - [facility] [address] [place] [address], [id number] 02/16/2022 16:23:39 02/17/20 22 02/16/2022 urina lysis , dipst ick Nitrite negati ve Not Available Main - [facility] [address] [place] [address], [id number] 02/16/2022 16:23:39 02/17/20 22 02/16/2022 urina lysis , dipst ick Protein 4+ Not Available Main - [facility] [address], [id number] 02/16/2022 16:23:39 02/17/20 22 02/16/2022 urina lysis , dipst ick Ketone 2+ Not Available Main - [facility] [address], [id number] 02/16/2022 16:23:39 02/17/20 22 02/16/2022 urina lysis , dipst ick Glucose negati ve Not Available Main - [facility] [address] [place] [address], [id number] 02/16/2022 16:23:39 02/17/20 22 02/16/2022 cmp, whole blood + picco lo ALB 2.8 Not Available Main - [facility] [address], [id number] 02/16/2022 16:22:48 02/17/20 22 02/16/2022 cmp, whole blood + picco lo ALP 114 Not Available Main - [facility] [address], [address] 02/16/2022 16:22:48 02/17/20 22 02/16/2022 cmp, whole blood + picco lo ALT 12 Not Available Main - [facility] [address], [address] 02/16/2022 16:22:48 02/17/20 22 02/16/2022 cmp, whole blood + picco lo AST 18 Not Available Main - [facility] [address], [address] 02/16/2022 16:22:48 02/17/20 22 02/16/2022 cmp, whole blood + picco lo BUN 17 Not Available Main - [facility] [address], [address] 02/16/2022 16:22:48 02/17/20 22 02/16/2022 cmp, whole blood + picco lo Ca 9.8 Not Available Main - [facility] [address], [address] 02/16/2022 16:22:48 02/17/20 22 02/16/2022 cmp, whole blood + picco lo CI- normal Not Available Main - [facility] [address], [address] 02/16/2022 16:22:48 02/17/20 22 02/16/2022 cmp, whole blood + picco lo CRE 1.3 Not Available Main - [facility] [address], [address] 02/16/2022 16:22:48 02/17/20 22 02/16/2022 cmp, whole blood + picco lo GLU 326 Not Available Main - [facility] [address], [address] 02/16/2022 16:22:48 02/17/20 22 02/16/2022 cmp, whole blood + picco lo K+ 3.8 Not Available Main - [facility] [address], [address] 02/16/2022 16:22:48 02/17/20 22 02/16/2022 cmp, whole blood + picco lo Na+ 138 Not Available Main - [facility] [address], [address] 02/16/2022 16:22:48 02/17/20 22 02/16/2022 cmp, whole blood + picco lo tCO2 27 Not Available Main - [facility] [address], [address] 02/16/2022 16:22:48 Result Notes None recorded. Medical Equipment None Reported. Allergies Allergen ID Allergen Name Allergen Category Reaction Reaction Severity Criticality Documentation Date Start Date Code Code System Note Provider Name and Address Organization Details Recorded Time 21490 Motrin medicatio n Not available Not available Not available 09/18/202415413 8 RxNorm Not Available [facility] - production 4 15:17:42 27839 acetamino phen / oxycodone medicatio n Not available Not available Not available 09/18/2024 47573 3 RxNorm Not Available [facility] - production 4 15:17:42 07622 tramadol medicatio n Not available Not available Not available 09/18/2024 53062 RxNorm Not Available [facility] - production 4 15:17:42 Medications Name Sig [...] Not Available No t Available Dexcom G7 [employer] Faculty Member USE DIRECTED active Not Available Not Available [...] % 99 % 98.9 [degF] Not Available [facility] [employer] 2 14:54:34 Date Recorded Body weight Respiratory rate Systolic And Diastolic Systolic And Diastolic Provider Name and Address Organization Details Last Updated DateTime 02/16/2022 55188.24 g 20 /min 164/63 mm[Hg] 164/63 mm[Hg] Not Available [facility] [employer] 2 14:54:34 Date Recorded Body temperature Heart [...] [degF] 16 /min 137/76 mm[Hg] Not Available [facility] - production 4 20:04:27 Social History None recorded. Functional Status None recorded. Mental Status None recorded. Family History Nothing Reported. Medical History No medical history recorded. Gynecological HistoryNo gynecological history recorded. Obstetrics History GPAL:G 0 P 0 0 0 0 Past Encounters Encounter ID Performer Location Encounter Start Date Encounter Closed Date Diagnosis/Indication Diagnosis SNOMED-CT Code Diagnosis ICD10 Code Diagnosis IMO Codes Diagnosis Note [id number] Hanane Mena MD [facility] - [address] [phone] 02/16/2022 14:13:00 05/29/2022 14:46:24 Acute low back pain 626405004 M54.50 Pt p/w 5 days of atraumatic [...] no improvemen t in pain consider imagingPer mixer operator vacuum pan salt, requestor asked for CBC w/ diff and CMP (not acknowledg ed in [facility] portal) but no orders placed. Reasonable to check CBC w/ diff and CMP thus orders placed. Ketonuria 062687805 R82. 4 Pt with 2+ urinary ketones [...] and call PCP if FSG > 350. [id number] Damien Alfredo MD Main - [facility] [address] [place] [phone] 04/08/2023 16:22:43 04/08/2023 23:08:09 Hypoxia 639709761 R09.02 [id number] Wander Smith MD Main - [facility] [address] [place] [phone] 09/18/2024 20:04:23 09/18/2024 21:06:53 Acute exacerbation of chronic obstructive pulmonary disease 073384508 J44.1 Health Concerns Section Related Observation LastModified by Organization Detai ls LastModified Time None Recorded Concern Status LastModified by Organization Details LastModified Time None Recorded Advance Directives Directive None Recorded Payers Insurance Date Sequence Insurance Name Policy Number Policy Rendon Covered Member ID Rendon Member ID Guarantor Name 04/08/2023 1 [facility] - DOS PRIOR TO 2023 - DUAL ELIGIBLE (MEDICARE REPLACEMENT/AD VANTAGE - HMO) Katherine Griffith [id number] Katherine Griffith 09/18/2024 1 [facility] - DOS ON OR AFTER 2023 - DUAL ELIGIBLE - LONG-TERM OPTIONS AND ONE CARE (MEDICARE REPLACEMENT/AD VANTAGE - HMO) Katherine Griffith [id number] Katherine Griffith Notes Date Note Type Note [...] .................... .................... .................... .................... .................... .................... . [employer] Note: Patient is a 76 year old [...] seen by urologist last month according to child care aide, kidney function was good. Urine sample obtained and dipped; changes in PRO, SG and KET detected. Urine sent to [facility] for UA and Culture. Vital signs obtained and all within normal limits. Red flags discussed. Consulted with Dr. Mena. Patient is to follow up with PCP/care team regarding her signs, symptoms and todays visit. Dr. Mena recommended blood work. [employer] Sara Davis was dispatched for procedure. See mixer operator vacuum pan salt Sara Davis run report for further patient [...] liner which suggests h Hanane Mena MD [address] [place] [address],[address], [place], [phone], [employer] 02/16/2022 16:24:46 04/08/2023 text/html [facility] Nursing Assessment: [...] on behalf of member with request for NDH for eval increased SOB and decreased oxygen levels. Daughter states member talking in full sentences with no acute distress. Daughter could not provide further information. Discuss if symptoms progress to seek emergent care.-verbalize understanding. Verify member name/- Damien Alfredo MD [address] [facility],[address], [place], [phone], [employer] 04/08/2023 16:28:34 09/18/2024 text/html CRC Nurse Triage [...] s/s and seek emergency treatment if needed. [employer] Organization Information for [employer] [facility] Business Legal Name: [facility] Transportation Address: [address] [place] [address], [place]es [address], Histotechnologist Supervisor: Louis Stockton MD CLIA No.: [id number] [employer] POC Test Results from [facility] Rapid COVID antigen (20:02:29) COVID: - Rapid influenza antigen (20:02:30) Flu: - Wander Smith MD [address] [place] [address],[address], [place], [phone], [facility] - [employer] 09/18/2024 21:05:29 OBGyn Episode No OBEpisode recorded.
--- OUTSIDE RECORDS SUMMARY | 2025-07-26 11:04 | XMS_ITS | Encounter Summary ---
Author Organization [facility] Address [address] [place] [address] [address] [place] [address] Care Team Providers Care Senior Information Systems Architect Name Role Phone Marycarmen Quijano MD Primary Care Provider Reason for Visit * Reason Comments Med Refill Encounter Details Date Type Department Care Team ([facility] Contact Info) Description 04/15/2023 Refill [facility] MEDICINE [address] [place] [address] Marycarmen Quijano MD [address] [place] [address] Social History Tobacco Use Types Packs/Day Years [...] Upcoming Encounters Date Type Department Care Team ([facility] Contact Info) Description 01/28/2026 1:30 PM EDT Office Visit [facility] ADULT DENTAL [address] [place] [address] RadhaJohana [address] [place] [address] documented as of this encounter Visit Diagnoses Not on filedocumented in this encounter Care Teams Senior Information Systems Architect Relationship Specialty Start Date End Date Marycarmen Quijano MD [address] [place] [address] PCP - General Family Medicine 03/02/23 06/20/23 documented as of this encounter
--- OUTSIDE RECORDS SUMMARY | 2025-07-26 11:04 | XMS_ITS | Encounter Summary ---
Author Organization [employer] [facility] Address [address] [place] [address] [address]t [place] [address] Care Team Providers Care Panel Edge Painter Name Role Phone Unavailable Primary Care Provider Unavailabl e Reason for Visit * Reason Comments Med Refill Encounter Details Date Type Department Care Team (Late st Contact Info) Description 12/02/[address] [facility] MEDICINE [address] [place] [address] Christianne John MD [address] [place] [address] Moderate persistent asthma, unspecified whether complicated Social [...] Description 01/28/2026 1:30 PM EDT Office Visit [facility] ADULT DENTAL [address] [place] [address] Radha, Johana [address] [place] [address] documented as of this encounter Visit Diagnoses Diagnosis Moderate persistent asthma, unspecified whether complicated documented in this encounter
--- OUTSIDE RECORDS SUMMARY | 2025-07-26 11:04 | XMS_ITS | Encounter Summary ---
Author Organization [facility] Address [address] [place] [address] 7[address] [place] [address] Care Team Providers Care Print Line Feeder Name Role Phone Unavailable Primary Care Provider Unavailabl e Reason for Visit * Reason Comments Med Refill Encounter Details Date Type Department Care Team (Late st Contact Info) Description 11/24/2023 Refill [facility] MEDICINE [address] [place] [address] Christianne John MD [address] [place] [address] Moderate persistent asthma, unspecified whether complicated Social [...] Description 01/28/2026 1:30 PM EDT Office Visit [facility] ADULT DENTAL [address] [place] [address] Radha, Johana [address] [place] [address] documented as of this encounter Visit Diagnoses Diagnosis Moderate persistent asthma, unspecified whether complicated documented in this encounter
--- OUTSIDE RECORDS SUMMARY | 2025-07-26 11:04 | XMS_ITS | Encounter Summary ---
Author Organization [employer] [facility] Address [address] [place] [address] 7t [place] [address] Care Team Providers Care Senior Marketing Analyst Name Role Phone Marycarmen Quijano MD Primary Care Provider [phone] Marycarmen Quijano MD Primary Care Provider [phone] Encounter Details Date Type Department Care Team (Latest Contact Info) Description 06/16/2021 Abstract [facility] CONVERSIONS Dental, Provider, DDS Social [...] 01/28/2026 1:30 PM EDT Office Visit [facility] ADULT DENTAL [address] [place] [address] Radha, Johana [address] [place] [address] documented as of this encounter Visit Diagnoses Not on filedocumented in this encounter Care Teams Senior Marketing Analyst Relationship Specialty Start Date End Date Marycarmen Quijano MD [address] [place] [address] PCP - General Family Medicine 07/26/13 02/01/23 Marycarmen Quijano MD [address] [place] [address] PCP - General Family Medicine 03/02/23 06/20/23 documented as of this encounter
--- OUTSIDE RECORDS SUMMARY | 2025-07-26 11:04 | XMS_ITS | Encounter Summary ---
Author Organization [facility] Address [address] [place] [address] 7t [place] [address] Care Team Providers Care Manager Field Services Name Role Phone Unavailable Primary Care Provider Unavailabl e Reason for Visit * Reason Comments Med Refill Encounter Details Date Type Department Care Team (Late st Contact Info) Description 12/01/2023 Refill [facility] MEDICINE [address] [place] [address] Christianne John MD [address] [place] [address] Moderate persistent asthma, unspecified whether complicated Social [...] Description 01/28/2026 1:30 PM EDT Office Visit [facility] ADULT DENTAL [address] [place] [address] Radha, Johana [address] [place] [address] documented as of this encounter Visit Diagnoses Diagnosis Moderate persistent asthma, unspecified whether complicated documented in this encounter
--- OUTSIDE RECORDS SUMMARY | 2025-07-26 11:04 | XMS_ITS | Encounter Summary ---
Author Organization [facility] Address [address] [place] [address] [address] [place] [address] Care Team Providers Care Interventional Cardiologist Name Role Phone Unavailable Primary Care Provider Unavailabl e Reason for Visit * Reason Comments Med Refill Encounter Details Date Type Department Care Team (Late st Contact Info) Description 11/29/[address] [facility] MEDICINE [address] [place] [address] Christianne John MD [address] [place] [address] Moderate persistent asthma, unspecified whether complicated Social [...] Description 01/28/2026 1:30 PM EDT Office Visit [facility] ADULT DENTAL [address] [place] [address] Radha, Johana [address] [place] [address] documented as of this encounter Visit Diagnoses Diagnosis Moderate persistent asthma, unspecified whether complicated documented in this encounter
--- OUTSIDE RECORDS SUMMARY | 2025-07-26 11:04 | XMS_ITS | Clinical Summary ---
Author Organization [id number] Address [address] [place] [address] Care Team Providers Care Resistance Welder Name Role Phone Unavailable Primary Care Provider [...] BEDTIME 2 Active Blood Glucose Monitoring Suppl (Plehn [employer]Style Newton Lite) w/Device kit TEST BLOOD SUGAR THREE [...] by mouth at bed time. Active Creon 90752-80466 units capsule 3 Active pantoprazole (ProtoNix) 40 [...] tabletIndications: Type 2 diabetes mellitus with hyperlipidemia (HCC) TAKE 1 TABLET BY MOUTH AT BEDTIME 30 tablet 11 3 Active folic acid (Folvite) 1 MG tabletIndications: Vitamin deficiency TAKE 1 TABLET BY MOUTH EVERY MORNING 90 tablet 3 3 Active montelukast (Singulair) 10 MG tabletIndications: Moderate persistent asthma, unspecified whether complicated TAKE 1 TABLET BY MOUTH EVERY EVENING 90 tablet 3 3 Active ergocalciferol (Vitamin D2) 1.25 MG (27284 UT) capsule TAKE 1 CAPSULE BY MOUTH [...] reduced mobility 01/28/2021 Respiratory failure with hypoxia (CMS/HCC) 01/28 Uncomplicated asthma 01/28/2021 Unsteadiness on feet 01/28/2021 [...] 07/15/2015 Chronic kidney disease, stage III (moderate) (CM S/HCC) 04/03/2014 Peripheral vascular disease 11/09/2013 Vaginal wall prolapse 03/06/2013 Urinary, incontinence, stress female 03/06/2013 Vertigo 07/11/2012 Low back pain 05/30/2012 Diverticular disease of colon 05/05/2012 Gastroesophageal reflux disease 05/05/2012 Obesity 03/16/2012 Thoracic and lumbosacral neuritis 03/16/2012 Atherosclerosis of coronary artery 10/04/1959 Osteopenia 10/04/1959 Encounters Date Type Department Care Team Description 07/25/2025 10:15 AM EDT Office Visit [facility] [address] [place] [address] Johana Garcia Partially edentulous mandible, unspecified edentulism class (Primary Dx); Localized gingival recession, severe; Dental plaque; Extruded tooth 05/29/2025 1:20 PM EDT Office Visit [facility] [address] [place], [place] [phone] Christianne John MD Diarrhea, unspecified type (Primary Dx) 05/29/2025 Telephone [facility] MEDICINE [address] [place] [phone] Christianne John MD 05/29/2025 Orders Only GENERIC [...] Pressure 132/78 07/25/2025 9:55 AM EDT Pulse 98 05/29/2025 1:31 PM EDT [...] [facility] [address] [place] [address] Radha, Johana [address] [place] [address] Health Maintenance Due Date Last Done Comments [...] Additional history exists COVID-19 Vaccine ( season) 2025 Influenza Vaccine (#1) 2025 , 07/20/2022, 07/20/2022, Additional history exists Dental Oral Exam 01/24/2026 07/25/2025, , 12/02/2022 Dental Prophylaxis 01/24/2026 07/25/2025, 0 01/12/2025, 07/07/2024, Additional history exists Tobacco Screening 07/25/2026 07/25/2025 Dental X-Ray: Bitewings 07/26/2026 07/25/2025, 06/19 Dental X-Ray: Full Mouth 06/20/2027 06/19/2024, 04/03 [...] Procedure Name Priority Date/Time Associated Diagnosis Comments PERIODIC ORAL EVALUATION - ESTABLISHED PATIENT Routine 07/25/2025 10:15 AM EDT INTRAORAL - PERIAPICAL EACH ADDITIONAL RADIOGRAPHIC IMAGE Routine 07/25/2025 10:15 AM EDT Partially edentulous mandible, unspecified edentulism class Localized gingival recession, severe Dental plaque BITEWINGS - 4 RADIOGRAPHIC IMAGES Routine 07/25/2025 10:15 AM EDT Partially edentulous mandible, unspecified edentulism class Localized gingival recession, severe ORAL HYGIENE INSTRUCTIONS Routine 07/25/2025 10:15 AM EDT Partially edentulous mandible, unspecified edentulism class Localized gingival recession, severe Dental plaque TOPICAL APPLICATION OF FLUORIDE VARNISH Routine 07/25/2025 10:15 AM EDT Localized gingival recession, severe Dental plaque PROPHYLAXIS - ADULT Routine 07/25/2025 1 0:15 AM EDT Dental plaque INTRAORAL - PERIAPICAL FIRST RADIOGRAPHIC IMAGE Routine 07/25/2025 10:15 AM EDT Partially edentulous mandible, unspecified edentulism class Localized gingival recession, severe BASIC METABOLIC PANEL Routine 05/29/2025 2:12 PM [...] 05/29/2025 2:03 PM EDT Diarrhea, unspecified type INTRAORAL - COMPLETE SERIES OF RADIOGRAPHIC IMAGES Routine 06/19/2024 10:00 AM EDT ZZZ HISTORICAL HEMOGLOBIN A1C Routine 07/09/2022 10:40 AM EDT ZZZ HISTORICAL LIPID PANEL Routine 09/18/2020 1:18 PM EST from Last 3 Months or Most Recently Relevant to Health Maintenance Results * (ABNORMAL) CBC auto differential (05/29/2025 2:12 PM EDT) White Blood Count 14.5(H) 4.8 - 10.8 X10*3/uL [facility] Red Blood Count 4.98 4.20 - 5.50 X10*6/uL [facility] Hemoglobin 12.4 12.0 - 16.0 g/dl [facility] Hematocrit 38.9 37.0 - 47.0 % [facility] Mean Corpuscular Volume 78.1(L) 80.0 - 98.0 fL [facility] Mean Corpuscular Hemoglobin 24.9(L) 27.0 - 33.0 pg [facility] Mean Corpuscular HGB Conc 31.9 31.0 - 35.0 g/dl [facility] Red Cell Distribution Width 15.6 11.0 - 16.0 % [facility] Platelet Count 417(H) 160 - 400 X10*3/uL [facility] Mean Platelet Volume 9.5 9.4 - 12.3 fL [facility] Neutrophils Percent Auto 76.6(H) 45 - 73 % [facility] Imm Gran Pct Auto 0.4 0.0 - 0.4 % [facility] Lymphocytes Percent Auto 15.5(L) 20 - 40 % [facility] Monocytes Percent Auto 5.5 2 - 11 % [facility] Eosinophils Percent Auto 1.5 0 - 4 % [facility] Basophils Percent Auto 0.5 0 - 2 % [facility] NRBC Pct Auto 0.0 0.0 - 0.2 /100WBC [facility] Neutrophils Absolute Auto 11.1(H) 2.0 - 8.3 x10*3/uL [facility] Imm Gran Abs Auto 0.06(H) 0.00 - 0.03 X10*3/uL [facility] Lymphocytes Absolute Auto 2.3 1.2 - 4.9 X10*3/uL [facility] Monocytes Absolute Auto 0.8 0.1 - 1.2 X10*3/uL [facility] Eosinophils Absolute Auto 0.2 0.0 - 0.4 X10*3/uL [facility] Basophils Absolute Auto 0.1 0.0 - 0.2 X10*3/uL [facility] NRBC Abs Auto 0.000 0.0 - 0.012 X10*3/uL [facility] Blood Venous blood specimen / Unknown 05/29/2025 2:12 PM EDT 05/29/2025 3:57 PM EDT us Christianne John MD LAB BLOOD ORDERABLES Final Result [facility] [address] [place] [phone] * (ABNORMAL) C-reactive Protein (05/29/2025 2:12 PM EDT) C Reactive Protein 2.65(H) < or = 0.50 mg/dL [facility] Blood Venous blood specimen / Unknown 05/29/2025 2:12 PM EDT 05/29/2025 3:57 PM EDT us Christianne John MD LAB BLOOD ORDERABLES Final Result Performing Organization Address [facility]/ZIP Co de Phone Number [facility] [address] [place] [phone] * (ABNORMAL) Basic Metabolic Panel (05/29/2025 2:12 PM EDT) Only the most recent of2 resultswithin the time period is included. Pathologist [facility] [place] Sodium 141 135 - 145 mmol/L [facility] Potassium 4.3 3.3 - 5.1 mmol/L [facility] Chloride 107 96 - 108 mmol/L [facility] Carbon Dioxide 24 22 - 29 mmol/L [facility] Anion Gap 14 12 - 20 [facility] Urea Nitrogen (BUN) 20(H) 9 - 16 mg/dL [facility] Creatinine, Serum 1.53(H) 0.5 - 1.4 mg/dL [facility] Estimated Glomerular Filt Rate 33 [facility] Comment:Chronic Kidney Disea se: Estimated GFR < 60 mL/min/[id number] Kidney Disease: Estimated GFR < 15 mL/min/1.73m2 Glucose 117(H) 60 - 115 mg/dL [facility] Calcium 9.8 8.4 - 10.2 mg/dL [facility] 05/29/2025 2:12 PM EDT 05/29/2025 3:57 PM EDT us Generic External Data Provider LAB BLOOD ORDERAB LES Final Result Performing Organization Address [facility]/ZIP Co de Phone Number [facility] [address] [place] [phone] * POCT Influenza B manually resulted (05/29/2025 2:04 PM EDT) [facility] Rapid Influenza B Ag Negative Negative, Indeterminate QC Media Lot # [id number] Lot# Expiration Date 100,82 Swab 05/29/2025 2:04 PM EDT Christianne John MD POINT OF CARE TEST ENTER/E DIT ORDERABLES Final Result * POCT Influenza A manually resulted (05/29/2025 2:04 PM EDT) [facility] Rapid Influenza A Ag Negative Negative, Indeterminate QC Media Lot # [id number] Lot# Expiration Date 100,82 Swab Nasopharyngeal structure / Unknown 05/29/2025 2:04 PM EDT Christianne John MD POINT OF CARE TEST ENTER/E DIT ORDERABLES Final Result * POCT Rapid COVID Ag (05/29/2025 2:03 PM EDT) [facility] Rapid COVID Ag Negative QC Media Lot # [id number] Lot# Expiration Date ,826 Swab 05/29/2025 2:03 PM EDT Christianne John MD POINT OF CARE TEST ENTER/E DIT ORDERABLES Final Result * HEMOGLOBIN A1C (07/09/2022 10:40 AM EDT) [facility] Estimated Average Glucose 151 mg/dL [facility] Comment: eAG = Estimated average glucose which is %A1C expressed as average glucose, using the formula of the [id number] Average Glucose study (ADAG), Diabetes Care, Vol.31,#8, [...] LAB SYSTEM Estimated Glomerular Filt Rate 38 [facility] Comment: NOTE: For -[place] individuals, multiply the result by 1.210. Chronic [...] Historical Provider HISTORICAL/NON ORDERABLE LABS Final Result [facility] [address] from Last 3 Months or Most Recently Relevant to Health Maintenance Insurance # 1 [place] [address] [facility] LONG TERM OPTIONS (HMO D-SNP) YASMIN FRANCO [id number] [address] [place] [address] DENTAL - [facility]
--- OUTSIDE RECORDS SUMMARY | 2025-07-26 11:04 | XMS_ITS | Clinical Summary ---
Author Organization [facility] Address [address] [phone] Phone Care Team Providers Care Digital Marketing Assistant Name Role Phone Marycarmen Quijano MD Primary Care Provider [phone] Allergies Active Allergy Reactions Criticality Noted Date [...] day Active ergocalciferol (VITAMIN D-2) 1.25 MG (63472 UT) capsule Take 1 capsule by mouth [...] failure 01/28/2021 Atherosclerotic heart diseas e [place] coronary artery without angina pectoris 01/28/2021 Chronic [...] arteriosclerosis 07/11/2012 Overview (12/07/2022): Cath 01/2010 at [facility] showed LCx 80% and ostial LAD [...] [facility] [address] [phone] Alycia Rios ARNP Stage 3b chronic kidney disease (HCC) (Primary Dx); Persistent proteinuria; Renal osteodystrophy; Hypertensive renal disease 06/27/2025 Refill [facility] [address] [phone] Ariane Sexton Stage 3b chronic kidney disease (HCC); Persistent proteinuria; Hypertensive renal disease 04/29/2025 Orders Only [facility] [address] [phone] Alycia Rios ARNP Stage 3b chronic kidney [...] A1C 8.5(H) <5 % [facility] Comments [place] [facility] Creatinine 1.35(H) 0.70 - 1.30 mg/dl [facility] Potassium 4.5 3.5 - 5.1 mmol/L [facility] Calcium 8.8 8.4 - 10.2 mg/dl [facility] eGFR Non- 38(L) >60 ml/min [facility] 09/18/2020 us [facility] [id number] LICITED RESULTS Final Result [facility] from Last 3 Months or Most Recently Relevant to Health Maintenance Insurance [facility] ([id number]) [facility] ([id number]) Care Teams Digital Marketing Assistant Relationship Specialty Start Date End Date Marycarmen Quijano MD [address] [place] [phone] PCP - General 10/14/20
== END 2025-07-26 09:43 | disposition home or self-care (01) ==
LOC: HO.MAMMO 09:42
PROVIDERS: PCP Internal Medicine; Visit Provider Internal Medicine
DX: Z13.820 Encounter for screening for osteoporosis (principal); Z78.0 Asymptomatic menopausal state
CPT/HCPCS: 77080

== ENCOUNTER → 2025-07-26 10:00 | Outpatient (BNV) | payer OTHER, SELFPAY | PROVIDERS: PCP Internal Medicine; Visit Provider Radiology Diagnostic Radiology | DX: E28.39 Other primary ovarian failure (principal) | CPT/HCPCS: 77080 ==

== ENCOUNTER 2025-08-02 09:57 | Outpatient (AMB) | payer OTHER, SELFPAY ==
--- OUTSIDE RECORDS SUMMARY | 2024-03-31 05:30 | XMS_ITS ---
Author Organization [facility] Address [address] [place] [address] Care Team Providers Care Pmo Analyst Name Role Phone Jaime VORA, Shelby Primary Care Provider Unavail Randy Marshall Unavailable [phone] REASON FOR VISIT Seen Sooner Encounters Encounter Location Date Provider Diagnosis [facility] [address] [place] [address] 03/31/2024 Randy Leal Plan Of Treatment Next Appt Details Provider Name:Randy Leal , 11/20/2025 03:00:00 PM, [address] [place], [address], Progress Notes * Katherine DIASDOB: [birth year] (80 yo F)Acc No.[id number]:03/31/2024 Progress Notes Patient: Katherine FARMER Provider: Adelina Leal DPM :1945 A ge:78 Y S ex:Female Date:03/31/2024 Address:[address] [place], [place] [phone] Pcp:Shelby Sandoval MD Subjective: * Chief Complaints: [...] 03/31/2024 Generated for Herber olea/Eduardo on: 1 11:48 AM EDT
--- OUTSIDE RECORDS SUMMARY | 2024-09-19 06:00 | XMS_ITS ---
Author Organization [facility] Address [address] [place] [address] Care Team Providers Care Community Nutrition Educator Name Role Phone Jaime VORA, Shelby Primary Care Provider Unavail Randy Marshall Unavailable [phone] Encounters Encounter Location Date Provider Diagnosis [address] [address] 09/19/2024 Randy Leal Plan Of Treatment Next Appt Details Provider Name:Randy Leal , 11/20/2025 03:00:00 PM, [address] [place], [address], Progress Notes * MICAELAKatherine BashirDOB: 5 (80 yo F)Acc No.[id number]:09/19/2024 Progress Note Patient: Katherine FARMER Provider: Adelina Leal DPM :1945 A ge:79 Y S ex:Female Date:09/19/2024 Address:[address] [place], [place] [phone] Pcp:Shelby Sandoval MD Subjective: * Chief Complaints: [...] 11/20/2023 Generated for Herber olea/Rolando/Nickoitting on: 1 11:47 AM EDT
--- OUTSIDE RECORDS SUMMARY | 2025-03-27 05:30 | XMS_ITS ---
Author Organization [facility] Address [address] [place] [address] Care Team Providers Care Cert Occupational Therapy Asst Name Role Phone Jaime VORA, Shelby Primary Care Provider Unavail Randy Marshall Unavailable [phone] Encounters Encounter Location Date Provider Diagnosis [address] [address] 03/27/2025 Randy Leal Plan Of Treatment Next Appt Details Provider Name:Randy Leal , 11/20/2025 03:00:00 PM, [address] [place], [address], Progress Notes * MICAELAKatherine BashirDOB: 5 (80 yo F)Acc No.[id number]:03/27/2025 Progress Note Patient: Katherine FARMER Provider: Adelina Leal DPM :1945 A ge:79 Y S ex:Female Date:03/27/2025 Address:[address] [place], [place] [id number] Pcp:Shelby Sandoval MD Subjective: * Chief Complaints: [...] 03/27/2025 Generated for Herber olea/Rolando/Nickoitting on: 1 11:48 AM EDT
[2025-08-02 10:00] VITALS: BP 152/54; PULSE 80; O2SAT 98; BMI 38.9
--- NOTE | 2025-08-02 10:00 | MHC.OFFVIS ---
Vital Signs 08/02/25 10:00 Height 4 ft 9 in Weight 179 lb 10.828 oz BMI 38.9 BP 152/54 H Blood Pressure Location Lt brachial Position Sitting Pulse 80 Pulse Source Pulse Oximeter Pulse Oximetry (%) 98 Oxygen Delivery Method Room Air Intake Visit Reasons: Obstructive sleep apnea Construction Analyst Required: Yes Construction Analyst Services: Construction Analyst Offered & Declined Construction Analyst Name: MD speaks romanian Allergies ibuprofen (From Motrin) Allergy (Intermediate, Verified 08/02/25 10:09) High Blood Pressure, Rash oxycodone (From Percocet) Allergy (Intermediate, Verified 08/02/25 10:09) Itching tirzepatide (From Mounjaro) Adverse Reaction (Severe, Verified 08/02/25 10:09) Diarrhea HPI Comments Details: The patient is a 80-year-old woman with a known history of asthma, severe aortic stenosis and morbid obesity who was admitted to the hospital the end of January with severe COVID-19 and acute respiratory failure. The patient had bilateral airspace disease the due to COVID. Course was complicated by renal failure requiring dialysis and anemia requiring blood transfusions. The patient recovered from a very serious case of COVID. She still complaining of shortness of breath specially with activity moderate in severity. She has significant aches and pains throughout her body. Moderate in severity. The patient also has significant fatigue and daytime drowsiness. She does have significant snoring noted by her daughter. Her Wilton score is elevated 16/24. At this point the patient needs to undergo a sleep study. Will make arrangements for her to do so. In the meantime for her asthma she does have 1 inhaler. She does not know the name. She does not take it daily. The patient does need to be on maintenance inhaler this time. In the meantime the patient does have a severe aortic stenosis. She was supposed to have a surgical evaluation. But, then she became sick and was not able to follow through. Patient is concerned open heart surgery. She is wondering if any other alternatives such as the endovascular approach be an option for her specially with her worsening medical conditions. 10/31/2022 the patient is here for a pulmonary follow-up visit. The patient overall has been feeling better. She was evaluated over the phone back in July because about worsening exacerbation. She completed her medications and she is back to baseline. She is feeling better. She is not using the oxygen. Although wait and see a little bit more to make sure that she does not go back to using it. The patient has been on the inhalers with good effect. The of the a form although, she is having hard time with the powder inhalers is causing significant irritation of the mouth so therefore will stop the Trelegy and placed on Symbicort be more effective. Also to note the patient was admitted briefly to [facility] after developing hemorrhagic colitis and ultimately got better with antibiotics. 02/21/2024 the patient is here for a pulmonary follow-up visit. She has doing a lot better. She has not had to use the oxygen so therefore will discontinue it. She continues on respiratory therapy with good effect. Still getting winded. Also complaining of back pain. Also gets some sciatica discomfort that limits her activity. She does use a cane and also walker when she is little more stable on her feet. The patient otherwise is without any other complaints. Will have her get a chest x-ray. We did look at her CT scan of the chest that she had back in April 2023 which she was significantly sick. She had bilateral ground-glass opacities suggesting an ARDS picture. On examination she still has some minimal crackles at the bases suggesting some degree of scarring. If the chest x-ray is abnormal will go ahead and request a CT scan of the chest. If the patient continues to be symptomatic and the x-ray is nondiagnostic we may also consider getting a CT scan of the chest. 08/29/2024 the patient is here for a pulmonary follow-up visit. The patient overall has been doing well. Back in July she did have an episode of left-sided chest discomfort. Since we more musculoskeletal. She did undergo a chest x-ray that was without any acute disease. The patient has been trying [id number]-[id number] remedies. Four. I did reassure her that does not appear to have any pulmonary manifestations. The patient did have a CT scan back in 2022 with significant airspace disease at that point she did have infection. The patient will need to get the Prevnar 20 vaccine today. She will get a flu shot and also has to get a booster for pertussis with her primary care doctor. She will follow-up in 6 months. If any issues arise she will call for an earlier assessment. 08/02/2025 the patient is here for pulmonary follow-up visit. She is doing well from a respiratory status. Denies any shortness of breath. She does have the Trelegy inhaler and also a rescue inhaler. She also has a nebulizer she needs it. She has not been sick though she has been doing okay. Her major complaint is musculoskeletal with hip and back pain. Otherwise she will follow up with her primary care doctor for the osteoarthritis. She has no other complaints. We did look at her x-ray that she had back in the spring demonstrating no acute disease. Her cardiac silhouette appears to be slightly enlarged but otherwise no evidence of any lung parenchymal disease. The patient follow-up in 6-8 months if she has any issues prior to this she can always call for an earlier assessment. 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 Aortic stenosis CKD (chronic kidney disease) stage 3, GFR 30-59 ml/min Dyslipidemia Diabetic polyneuropathy associated with type 2 diabetes mellitus Diabetic nephropathy associated with type 2 diabetes mellitus Chronic kidney disease Hypertension Asthma Thalamic pain syndrome GERD (gastroesophageal reflux disease) Morbid obesity Surgical History H/O colonoscopy H/O aortic valve replacement History of breast lump/mass excision History of tubal ligation History of cholecystectomy Family History Sister History of renal pelvis cancer Father Suicide Mother Lung disease Diabetes mellitus Social History Household Members: Family Housing: House Do you presently have visiting nurse or other home services: 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 Patient Tobacco Use Status: Former Tobacco user Tobacco use type: Cigarette Years Smoked: 5 years e-Cigarette/Vaping Use: Never Used Second Hand Smoke Exposure: No service: No Current occupational status: unemployed and disabled Gender identity: Female Cognitive needs: Yes Hearing needs: No Vision needs: No Female Reproductive History Menstrual Age of Menarche: 10 Review of Systems Const Reports fatigue, Denies night sweats and Reports weight loss ENT Denies change in voice, Denies lip swelling, Denies mouth pain, Reports nasal congestion, Reports nasal discharge, Reports neck pain, Reports sore throat and Denies tongue swelling Card Denies chest pain and Reports dyspnea on exertion Resp Denies chest congestion, Reports cough and Reports dyspnea on exertion GI Denies abdominal pain Reports no additional complaints Musc Reports back pain, Reports myalgias, Reports arthralgias, Reports joint swelling, Reports limited range of motion and Reports neck pain Neuro Denies Neuro-related abnormal movements Psych Denies no additional complaints Endo Reports fatigue Luis Antonio/Lymph Denies easy bleeding and Denies lymphadenopathy Aller/Immun Denies lip swelling and Denies tongue swelling Physical Exam Vital Signs: Last Vital Signs Pulse 80 08/02/25 10:00 BP 152/54 H 08/02/25 10:00 Pulse Ox 98 08/02/25 10:00 Oxygen Delivery Method Room Air 08/02/25 10:00 BMI result Body Mass Index 38.9 Last Vital Signs Temp 98 F 04/17/23 12:00 Pulse 64 04/17/23 12:00 Resp 19 04/17/23 12:00 BP 134/67 04/17/23 12:00 Pulse Ox 93 04/17/23 12:00 O2 Del Method Oxymask 04/17/23 12:00 O2 Flow Rate 2.5 04/17/23 12:00 Oxygen Flow Rate 10 04/16/23 12:39 BMI result Body Mass Index 43.7 Const General: comfortable Orientation/consciousness: patient oriented x3 Neck Neck: Yes normal visual inspection, Yes full ROM and Yes no lymphadenopathy Chest Chest palpation & inspection: normal inspection of the chest Resp Effort & Inspection: normal respiratory effort and able to speak in complete sentences Auscultation: diminished lung sounds Cardio Rate: regular rate Rhythm: regular rhythm Heart sounds: S1 normal heart sound present, S2 normal heart sound present and Murmur heart sound present GI Palpation (GI): Soft to palpation and nontender Auscultation: normal bowel sounds Skin General skin exam: rashes and/or lesions noted Neuro General: patient oriented x3 Assessment & Plan Assessment & Plan (1) JOSE (obstructive sleep apnea): Code(s): G47.33 - Obstructive sleep apnea (adult) (pediatric) Category: Medical (2) Asthma: Code(s): J45.909 - Unspecified asthma, uncomplicated Category: Medical Qualifiers: Asthma complication type: uncomplicated Asthma persistence: persistent Asthma severity: moderate Qualified Code(s): J45.40 - Moderate persistent asthma, uncomplicated (3) Aortic stenosis: Code(s): I35.0 - Nonrheumatic aortic (valve) stenosis Category: Medical Qualifiers: Cardiac valve disease etiology: nonrheumatic Qualified Code(s): I35.0 - Nonrheumatic aortic (valve) stenosis (4) Dyspnea: Code(s): R06.00 - Dyspnea, unspecified Category: Medical Qualifiers: Dyspnea type: dyspnea on exertion Qualified Code(s): R06.09 - Other forms of dyspnea Plan Trelegy CARRIE as needed positional therapy weight management F/U 6-8 months Coding Level of Care Code Est Pt Level 4 (47656) Complex EM visit Add On G2211 Diagnoses JOSE (obstructive sleep apnea) G47.33 Moderate persistent asthma without complication J45.40 Asthma complication type: uncomplicated Asthma persistence: persistent Asthma severity: moderate Nonrheumatic aortic valve stenosis I35.0 Cardiac valve disease etiology: nonrheumatic Dyspnea on exertion R06.09 Dyspnea type: dyspnea on exertion Time Spent (min) 16
--- OUTSIDE RECORDS SUMMARY | 2025-08-02 11:48 | XMS_ITS | Clinical Summary ---
Author Organization [facility] 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 [address] [phone] Alycia Rios ARNP Stage 3b chronic kidney disease (HCC) (Primary Dx); Persistent proteinuria; Renal osteodystrophy; Hypertensive renal disease 06/27/2025 Refill [facility] [address] [phone] Ariane Sexton Stage 3b chronic kidney disease (HCC); Persistent proteinuria; Hypertensive renal disease from Last 3 Months Immunizations Immunization Administration [...] 8.5(H) <5 % [facility] Comments [facility] Creatinine 1.35(H) 0.70 - 1.30 mg/dl PVNMA Potassium 4.5 3.5 - 5.1 mmol/L PVNMA Calcium 8.8 8.4 - 10.2 mg/dl PVNMA eGFR Non- 38(L) >60 ml/min PVNMA 09/18/2020 us [facility] Conversion LAB [id number] LICITED RESULTS Final Result PVNMA from Last 3 Months or Most Recently Relevant to Health Maintenance Insurance [facility] ([id number]) [facility] ([id number]) Care Teams Educational Director Relationship Specialty Start Date End Date Marycarmen Quijano MD [address] [place] [address] PCP - General 10/14/20
--- OUTSIDE RECORDS SUMMARY | 2025-08-02 11:48 | XMS_ITS | Encounter Summary ---
Author Organization [employer] Address [address] [place] [address] [address] [place] [address] Care Team Providers Care Firepot Operator And Tender Name Role Phone Marycarmen Quijano MD Primary Care Provider [phone] Reason for Visit * Reason Comments Med Refill Encounter Details Date Type Department Care Team ([facility] Contact Info) Description 03/07/2023 Refill [facility] [address] [place], [place] [phone] Marycarmen Quijano MD [address] [place], [place] [phone] Social History Tobacco Use Types Packs/Day Years [...] Team ([facility] Contact Info) Description 01/28/2026 1:30 PM EDT Office Visit [facility] [address] [place] [address] Radha, Johana [address] [place] [address] documented as of this encounter Visit Diagnoses Not on filedocumented in this encounter Care Teams Firepot Operator And Tender Relationship Specialty Start Date End Date Marycarmen Quijano MD [address] [place] [address] PCP - General Family Medicine 03/02/23 06/20/23 documented as of this encounter
--- OUTSIDE RECORDS SUMMARY | 2025-08-02 11:48 | XMS_ITS | Patient Health Record ---
Author Organization [facility] Address [address] [place] [address] Care Team Providers Care Telephone Technician Name Role Phone Jaime VORA, Shelby Primary Care Provider Unavail able Randy Leal Unavailable [phone] Allergies Allergen (clinical drug ingredient) Drug/Non Drug [...] End Date Status Calcium Active Iron Active Ammonium Lactate 12 % 1 application Exte rnally to affected areas of dry skin to feet except for between the toes Twice a day; Duration: 30 days Active Toujeo SoloStar 300 UNIT/ML as directed Subcutaneous Act wendie Aspirin 81 MG 1 tablet Orally Once a day Active Ozempic (2 MG/DOSE) 8 MG/3ML as [...] Torsemide 20 MG as directed Orally Active Folic Acid Active Gabapentin 25 MG as directed Orally Active Vitamin D3 25 MCG (1000 UT) 1 capsule Orally Once a day Active Immunizations Vaccine Route Administration Date Status Comme nts Influenza Unknown 07/04/2024 Administered Influenza Unknown 07/05/2025 Administered Social History Tobacco Use: Social History [...] Problem Acquired hammer toe of right foot (5420908145616215 ) Other hammer toe(s) (acquired), right foot (M20.41) Active confirmed Problem Acquired hammer toe of left foot (6059544678430954 ) Other hammer toe(s) (acquired), left foot (M20.42) Active confirmed Problem Polyneuropathy due to type 2 diabetes mellitus (889740866) Type 2 diabetes mellitus with diabetic polyneuropathy (E11.42) Active confirmed Vital Signs Blood pressure diastolic 65 mm Hg 07/24/2025 Height 4 ft 9 in in 07/24/2025 Blood pressure systolic 130 mm Hg 07/24/2025 Weight 182 lbs 07/24/2025 BMI 39.38 kg/m2 07/24/2025 Procedures Procedure Date Ordered Date Performed Result Body Sit e 87226-XFHHBHX NAIL, 6 OR MORE 12/26/2024 N/A 99721-Ypekuqks Plate 12/26/2024 N/A 22511-RTLL SKIN LESIONS, 2 TO 4 12/26/2024 N/A 33795-ANXKNSE NAIL, 6 OR MORE 04/24/2025 N/A 02485-SCYC SKIN LESIONS, 2 TO 4 04/24/2025 N/A 54703-TZIHNDD NAIL, 6 OR MORE 07/24/2025 N/A 17905-KMYT SKIN LESIONS, 2 TO 4 07/24/2025 N/A Encounters Encounter Location Date Provider Diagnosis [address] [address] 12/26/2024 Randy Leal Type 2 diabetes mellitus with diabetic polyneuropathy E11.42 ; Tinea unguium B35.1 ; Other hammer toe(s) (acquired), right foot M20.41 ; Other hammer toe(s) (acquired), left foot M20.42 and Subungual hematoma of left foot, initial encounter S90.222A [address] [address] 04/24/2025 Randy Leal Type 2 diabetes mellitus with diabetic polyneuropathy E11.42 ; Tinea unguium B35.1 and Xerosis of skin L85.[address] [address] 07/24/2025 Randy Leal Type 2 diabetes mellitus with diabetic polyneuropathy E11.42 ; Tinea unguium B35.1 and Xerosis of skin L85.[address] [address] 09/19/2024 Randy Leal [address] [address] 12/26/2024 Randy Leal [address] [address] 03/27/2025 Randy Leal Assessments Encounter Date Diagnosis (ICD Code) Assessment Notes Treatment Notes Treatment Clinical Notes Section Notes 12/26/2024 Type 2 diabetes mellitus with diabetic polyneuropathy (ICD-10 - E11.42) 12/26/2024 Tinea unguium (ICD-10 - B35.1) 04/24/2025 Type 2 diabetes mellitus with diabetic polyneuropathy (ICD-10 - E11.42) 04/24/2025 Tinea unguium (ICD-10 - B35.1) 07/24/2025 Type 2 diabetes mellitus with diabetic polyneuropathy (ICD-10 - E11.42) 07/24/2025 Tinea unguium (ICD-10 - B35.1) 07/24/2025 Xerosis of skin (ICD-10 - L85.3) 12/26/2024 Other hammer toe(s) (acquired), right foot (ICD-10 - M20.41) Patient Educated with: DIABETIC FOOT CARE INSTRUCTIONS. pdf (DIABETIC FOOT CARE INSTRUCTIONS. pdf) 12/26/2024 Other hammer toe(s) (acquired), left foot (ICD-10 - M20.42) 04/24/2025 Xerosis of skin (ICD-10 - L85.3) 12/26/2024 Subungual hematoma of left foot, initial encounter (ICD-10 - S90.222A) 04/24/2025 Other 07/24/2025 Other Plan Of Treatment Pending Test Test Name Order Date 16622-OEYDDQE NAIL, 6 OR MORE 03/17/2024 02740-HEPNUIT NAIL, 6 OR MORE 06/16/2024 35842-YVCMAHK NAIL, 6 OR MORE 12/26/2024 30045-TXTVBVF NAIL, 6 OR MORE 04/24/2025 73805-BGXYJKS NAIL, 6 OR MORE 07/24/2025 90155-Xlkmhybw Plate 12/26/2024 12905-FXCN SKIN LESIONS, 2 TO 4 07/24/20 25 60841-PVZP SKIN LESIONS, 2 TO 4 04/24/20 25 39362-SEZW SKIN LESIONS, 2 TO 4 12/27/19 25 57628-NASC SKIN LESIONS, 2 TO 4 06/16/20 24 71309-OMJA SKIN LESIONS, 2 TO 4 03/17/20 24 Next Appt Details Provider Name:Randy Leal , 11/20/2025 03:00:00 PM, [address] [place] [address], [phone], Insurance Providers Payer Name Payer Address Payer Phone Subscriber Number Group Number Insured Name Patient Relationship to Insured Coverage Start Date Coverage End Date [facility] [employer] Claims [address] [place] [phone] [id number] Katherine Jamil Self - patient is the insured Medical (General) History Medical History History ICD Code Anxiety Arthritis asthma Back,Hip,and Knee pain CAD (Cholesterol) Cataracts Depression Diabetic Heart disease High blood pressure Kidney disease Lung disease Numbness Poor circulation Reflux ( GERD) sinusitis Vascular phlebitis (clots) Chicken pox Replacement Heart Valves Transfusions Surgical History Surgery Date(Month/Year)
--- OUTSIDE RECORDS SUMMARY | 2025-08-02 11:48 | XMS_ITS | Encounter Summary ---
Author Organization [employer] [facility] Address [address] [place] [address] 7t [place] [address] Care Team Providers Care Service Greeter Name Role Phone Unavailable Primary Care Provider Unavailabl e Reason for Visit * Reason Comments Med Refill Encounter Details Date Type Department Care Team (Late Contact Info) Description 01/19/2024 Refill [facility] [address] [place] [address] Christianne John MD [address] [place] [address] Vitamin deficiency Social History Tobacco Use Types [...] Description 01/28/2026 1:30 PM EDT Office Visit [facility] ADULT D[facility] [address] [place] [address] Santos Garciaaris [address] [place] [address] documented as of this encounter Visit Diagnoses Diagnosis Vitamin deficiency Unspecified vitamin deficiency documented in this encounter
--- OUTSIDE RECORDS SUMMARY | 2025-08-02 11:48 | XMS_ITS | Encounter Summary ---
Author Organization [employer] Address [address] [place] [address] [address] [place] [address] Care Team Providers Care Combination Window Installer Name Role Phone Marycarmen Quijano MD Primary Care Provider Reason for Visit * Reason Comments Med Refill Encounter Details Date Type Department Care Team ([facility] Contact Info) Description 03/10/2023 Refill [facility] PEDS [address] [place], [place] [phone] Marycarmen Quijano MD [address] [place] [address] Primary hypertension Social History Tobacco Use Types [...] Upcoming Encounters Date Type Department Care Team ([facility] Contact Info) Description 01/28/2026 1:30 PM EDT Office Visit [facility] [address] [place] [address] Santos Garciaaris [address] [place] [address] documented as of this encounter Visit Diagnoses Diagnosis Primary hypertension Unspecified essential hypertension documented in this encounter Care Teams Combination Window Installer Relationship Specialty Start Date End Date Marycarmen Quijano MD [address] [place] [address] PCP - General Family Medicine 03/02/23 06/20/23 documented as of this encounter
--- OUTSIDE RECORDS SUMMARY | 2025-08-02 11:48 | XMS_ITS | Encounter Summary ---
Author Organization [employer] Address [address] [facility] [address] [place] [address] Care Team Providers Care Assistant Spa Director Name Role Phone Marycarmen Quijano MD Primary Care Provider [phone] Reason for Visit * Reason Comments Med Refill Encounter Details Date Type Department Care Team ([facility] Contact Info) Description 04/12/2023 Refill [facility] [address] [place] [address] Jose Johnson MD [address] [place] [address] Social History Tobacco Use Types Packs/Day Years [...] Department Care Team ([facility] Contact Info) Description 01/28/2026 1:30 PM EDT Office Visit [facility] AD[facility] [address] [place] [address] RadhaJohana [address] [place] [address] documented as of this encounter Visit Diagnoses Not on filedocumented in this encounter Care Teams Assistant Spa Director Relationship Specialty Start Date End Date Marycarmen Quijano MD [address] [place] [address] PCP - General Family Medicine 03/02/23 06/20/23 documented as of this encounter
--- OUTSIDE RECORDS SUMMARY | 2025-08-02 11:48 | XMS_ITS | Encounter Summary ---
Author Organization [email or web address] [facility] Address [address] [place] [address] [address] [place] [address] Care Team Providers Care Mechanical Equipment Sales Engineer Name Role Phone Marycarmen Quijano MD Primary Care Provider [phone] Reason for Visit * Reason Comments Med Refill Encounter Details Date Type Department Care Team ([facility] Contact Info) Description 04/04/2023 Refill [facility] [address] [place] [address] Marycarmen Quijano MD [address] [place] [address] Social History Tobacco Use Types Packs/Day Years [...] Upcoming Encounters Date Type Department Care Team ([facility] Contact Info) Description 01/28/2026 1:30 PM EDT Office Visit [facility] [address] [place] [address] RadhaJohana [address] [place] [address] documented as of this encounter Visit Diagnoses Not on filedocumented in this encounter Care Teams Mechanical Equipment Sales Engineer Relationship Specialty Start Date End Date Marycarmen Quijano MD [address] [place] [address] PCP - General Family Medicine 03/02/23 06/20/23 documented as of this encounter
--- OUTSIDE RECORDS SUMMARY | 2025-08-02 11:48 | XMS_ITS | Encounter Summary ---
Author Organization [employer] [facility] Address [address] [place] [address] 7t [place] [address] Care Team Providers Care Wet End Operator Name Role Phone Marycarmen Quijano MD Primary Care Provider [phone] Reason for Visit * Reason Comments Med Refill Encounter Details Date Type Department Care Team ([facility] Contact Info) Description 04/15/2023 Refill [facility] MEDICINE [address] [place] [address] Marycarmen Quijano MD [address] [place] [address] Social History Tobacco Use Types Packs/Day Years [...] Upcoming Encounters Date Type Department Care Team ([facility] Contact Info) Description 01/28/2026 1:30 PM EDT Office Visit [facility] ADULT DENTAL [address] [place] [address] RadhaJohana [address] [place] [address] documented as of this encounter Visit Diagnoses Not on filedocumented in this encounter Care Teams Wet End Operator Relationship Specialty Start Date End Date Marycarmen Quijano MD [address] [place] [address] PCP - General Family Medicine 03/02/23 06/20/23 documented as of this encounter
--- OUTSIDE RECORDS SUMMARY | 2025-08-02 11:48 | XMS_ITS | Encounter Summary ---
Author Organization [employer] [facility] Address [address] [place] [address] 7t [place] [address] Care Team Providers Care Supervisor [employer] Name Role Phone Marycarmen Quijano MD Primary Care Provider [phone] Marycarmen Quijano MD Primary Care Provider [phone] Encounter Details Date Type Department Care Team (Latest Contact Info) Description 06/16/2021 Abstract [facility] CONVERSIONS Dental, Provider, DDS Social History Tobacco [...] [facility] [address] [place] [address] Radha, Johana [address] [place] [address] documented as of this encounter Visit Diagnoses Not on filedocumented in this encounter Care Teams Supervisor [employer] Relationship Specialty Start Date End Date Marycarmen Quijano MD [address] [place] [address] PCP - General Family Medicine 07/26/13 02/01/23 Marycarmen Quijano MD [address] [place] [address] PCP - General Family Medicine 03/02/23 06/20/23 documented as of this encounter
--- OUTSIDE RECORDS SUMMARY | 2025-08-02 11:48 | XMS_ITS | Encounter Summary ---
Author Organization [employer] [facility] Address [address] [place] [address] 7 [place] [address] Care Team Providers Care Histology Manager Name Role Phone Marycarmen Quijano MD Primary Care Provider [phone] Marycarmen Quijano MD Primary Care Provider [phone] Reason for Visit * Reason Comments Med Refill Encounter Details Date Type Department Care Team (Late st Contact Info) Description 11/10/2022 Refill [facility] MEDICINE [address] [place], [place] [phone] Marycarmen Quijano MD [address] [place], [place] [phone] Social History Tobacco Use Types Packs/Day Years [...] 01/28/2026 1:30 PM EDT Office Visit [facility] ADULT DENTAL [address] [place], [place] [phone] Radha, Johana [address] [place] [address] documented as of this encounter Visit Diagnoses Not on filedocumented in this encounter Care Teams Histology Manager Relationship Specialty Start Date End Date Marycarmen Quijano MD [address] [place] [address] PCP - General Family Medicine 07/26/13 02/01/23 Marycarmen Quijano MD [address] [place] [address] PCP - General Family Medicine 03/02/23 06/20/23 documented as of this encounter
--- OUTSIDE RECORDS SUMMARY | 2025-08-02 11:48 | XMS_ITS | Encounter Summary ---
Author Organization [employer] [facility] Address [address] [place] [address] 7t [place] [address] Care Team Providers Care Lithograph Press Operator Tinware Name Role Phone Marycarmen Quijano MD Primary Care Provider [phone] Reason for Visit * Reason Comments Med Refill Encounter Details Date Type Department Care Team ([facility] Contact Info) Description 02/06/[address] [facility] MEDICINE [address] [place] [address] Marycarmen Quijano MD [address] [place], [place] [phone] Social History Tobacco Use Types Packs/Day Years [...] Upcoming Encounters Date Type Department Care Team ([facility] Contact Info) Description 01/28/2026 1:30 PM EDT Office Visit [facility] ADULT DENTAL [address] [place] [address] RadhaJohana [address] [place] [address] documented as of this encounter Visit Diagnoses Not on filedocumented in this encounter Care Teams Lithograph Press Operator Tinware Relationship Specialty Start Date End Date Marycarmen Quijano MD [address] [place] [address] PCP - General Family Medicine 03/02/23 06/20/23 documented as of this encounter
--- OUTSIDE RECORDS SUMMARY | 2025-08-02 11:48 | XMS_ITS | Clinical Summary ---
Author Organization [employer] Address [address] [facility] 7t [place] [address] Care Team Providers Care Supervisor Concrete Block Plant Name Role Phone Unavailable Primary Care Provider [...] BEDTIME 2 Active Blood Glucose Monitoring Suppl (Swift[employer]Style [place] Lite) w/Device kit TEST BLOOD SUGAR THREE [...] by mouth at bed time. Active Creon 73405-13577 units capsule 3 Active pantoprazole (ProtoNix) 40 [...] 3 Active ergocalciferol (Vitamin D2) 1.25 MG (64278 UT) capsule TAKE 1 CAPSULE BY MOUTH [...] 10:15 AM EDT Office Visit [facility] ADULT DENTAL [address] [place] [address] Johana Garcia Partially edentulous mandible, unspecified edentulism class (Primary Dx); Localized gingival recession, severe; Dental plaque; Extruded tooth 05/29/2025 1:20 PM EDT Office Visit [facility] [address] [place], [place] [phone] Christianne John MD Diarrhea, unspecified type (Primary Dx) 05/29/2025 Telephone [facility] MEDICINE [address] [place] [address] [phone] Christianne John MD 05/29/2025 Orders Only GENERIC [...] 1:30 PM EDT Office Visit [facility] ADULT DENTAL [address] [place] [address] Radha, Johana [address] [place] [address] Health Maintenance Due Date Last Done Comments [...] Blood Count 14.5(H) 4.8 - 10.8 X10*3/uL [facility] Red Blood Count 4.98 4.20 - 5.50 X10*6/uL [facility] Hemoglobin 12.4 12.0 - 16.0 g/dl [facility] Hematocrit 38.9 37.0 - 47.0 % [facility] Mean Corpuscular Volume 78.1(L) 80.0 - 98.0 fL [facility] Mean Corpuscular Hemoglobin 24.9(L) 27.0 - 33.0 pg [facility] Mean Corpuscular HGB Conc 31.9 31.0 - 35.0 g/dl [facility] Red Cell Distribution Width 15.6 11.0 - 16.0 % [facility] Platelet Count 417(H) 160 - 400 X10*3/uL [facility] Mean Platelet Volume 9.5 9.4 - 12.3 fL [facility] Neutrophils Percent Auto 76.6(H) 45 - 73 % [facility] Imm Gran Pct Auto 0.4 0.0 - 0.4 % [facility] Lymphocytes Percent Auto 15.5(L) 20 - 40 % [facility] Monocytes Percent Auto 5.5 2 - 11 % [facility] Eosinophils Percent Auto 1.5 0 - 4 % [facility] Basophils Percent Auto 0.5 0 - 2 % [facility] NRBC Pct Auto 0.0 0.0 - 0.2 /100WBC [facility] Neutrophils Absolute Auto 11.1(H) 2.0 - 8.3 x10*3/uL [facility] Imm Gran Abs Auto 0.06(H) 0.00 - 0.03 X10*3/uL [facility] Lymphocytes Absolute Auto 2.3 1.2 - 4.9 X10*3/uL [facility] Monocytes Absolute Auto 0.8 0.1 - 1.2 X10*3/uL [facility] Eosinophils Absolute Auto 0.2 0.0 - 0.4 X10*3/uL [facility] Basophils Absolute Auto 0.1 0.0 - 0.2 X10*3/uL [facility] NRBC Abs Auto 0.000 0.0 - 0.012 X10*3/uL [facility] Blood Venous blood specimen / Unknown 05/29/2025 2:12 PM EDT 05/29/2025 3:57 PM EDT us Christianne John MD LAB BLOOD ORDERABLES Final Result [facility] [address] [place] [address] [phone] * (ABNORMAL) C-reactive Protein (05/29/2025 2:12 PM EDT) C Reactive Protein 2.65(H) < or = 0.50 mg/dL [facility] Blood Venous blood specimen / Unknown 05/29/2025 2:12 PM EDT 05/29/2025 3:57 PM EDT us Christianne John MD LAB BLOOD ORDERABLES Final Result Performing Organization Address [facility] [place] [facility]/ZIP Co de Phone Number [facility] [address] [place] [phone] * (ABNORMAL) Basic Metabolic Panel (05/29/2025 2:12 PM EDT) Only the most recent of2 resultswithin the time period is included. Pathologist [facility] Sodium 141 135 - 145 mmol/L [facility] Potassium 4.3 3.3 - 5.1 mmol/L [facility] Chloride 107 96 - 108 mmol/L [facility] Carbon Dioxide 24 22 - 29 mmol/L [facility] Anion Gap 14 12 - 20 [facility] Urea Nitrogen (BUN) 20(H) 9 - 16 mg/dL [facility] Creatinine, Serum 1.53(H) 0.5 - 1.4 mg/dL [facility] Estimated Glomerular Filt Rate 33 [facility] Comment:Chronic Kidney Disea se: Estimated GFR < 60 mL/min/1.98n1Hzrwhr Kidney Disease: Estimated GFR < 15 mL/min/1.73m2 Glucose 117(H) 60 - 115 mg/dL [facility] Calcium 9.8 8.4 - 10.2 mg/dL [facility] 05/29/2025 2:12 PM EDT 05/29/2025 3:57 PM EDT us Generic External Data Provider LAB BLOOD ORDERAB LES Final Result Performing Organization Address [facility] [place] [facility]/ZIP Co de Phone Number [facility] [address] [place] [phone] * POCT Influenza B manually resulted (05/29/2025 2:04 PM EDT) [facility] Rapid Influenza B Ag Negative Negative, Indeterminate QC Media Lot # [id number] Lot# Expiration Date 100,82 Swab 05/29/2025 2:04 PM EDT Christianne John MD POINT OF CARE TEST ENTER/E DIT ORDERABLES Final Result * POCT Influenza A manually resulted (05/29/2025 2:04 PM EDT) [facility] Rapid Influenza A Ag Negative Negative, Indeterminate QC Media Lot # [id number] Lot# Expiration Date 100,82 Swab Nasopharyngeal structure / Unknown 05/29/2025 2:04 PM EDT Christianne John MD POINT OF CARE TEST ENTER/E DIT ORDERABLES Final Result * POCT Rapid COVID Ag (05/29/2025 2:03 PM EDT) [facility] Rapid COVID Ag Negative QC Media Lot # [id number] Lot# Expiration Date ,826 Swab 05/29/2025 2:03 PM EDT Christianne John MD POINT OF CARE TEST ENTER/E DIT ORDERABLES Final Result * HEMOGLOBIN A1C (07/09/2022 10:40 AM EDT) [facility] Estimated Average Glucose 151 mg/dL [facility] Comment: eAG = Estimated average glucose which is %A1C expressed as average glucose, using the formula of the P0R-Zlnwatk Average Glucose study (ADAG), Diabetes Care, Vol.31,#8, [...] LAB SYSTEM Estimated Glomerular Filt Rate 38 [facility] Comment: NOTE: For -Serbian individuals, multiply the result by 1.210. Chronic [...] [facility] [address] from Last 3 Months or Most Recently Relevant to Health Maintenance Insurance # [address] [place] [address] [facility] OPTIONS (HMO D-SNP) YASMIN FRANCO [id number] [address] [place] [address] DENTAL - [facility]
--- OUTSIDE RECORDS SUMMARY | 2025-08-02 11:48 | XMS_ITS | Encounter Summary ---
Author Organization [employer] Address [address] [place] [address] 7t [place] [address] Care Team Providers Care Sheet Metal Layout Mechanic Name Role Phone Marycarmen Quijano MD Primary Care Provider [phone] Reason for Visit * Reason Comments Med Refill Encounter Details Date Type Department Care Team ([facility] Contact Info) Description 03/03/2023 Refill [facility] MED & PEDS [address] [place], [place] [phone] Marycarmen Quijano MD [address] [place] [address] Primary hypertension Social History Tobacco Use Types [...] 01/28/2026 1:30 PM EDT Office Visit [facility] ADULT DENTAL [address] [place] [address] RadhaJohana [address] [place] [address] documented as of this encounter Visit Diagnoses Diagnosis Primary hypertension Unspecified essential hypertension documented in this encounter Care Teams Sheet Metal Layout Mechanic Relationship Specialty Start Date End Date Marycarmen Quijano MD [address] [place] [address] PCP - General Family Medicine 03/02/23 06/20/23 documented as of this encounter
--- OUTSIDE RECORDS SUMMARY | 2025-08-02 11:49 | XMS_ITS | Encounter Summary ---
Author Organization [employer] [facility] Address [address] [place] [address] 7t [place] [address] Care Team Providers Care Exerciser Name Role Phone Unavailable Primary Care Provider Unavailabl e Reason for Visit * Reason Comments Med Refill Encounter Details Date Type Department Care Team (Late st Contact Info) Description 11/24/2023 Refill [facility] MEDICINE [address] [place] [address] Christianne John MD [address] [place] [address] Moderate persistent asthma, unspecified whether complicated Social [...] Description 01/28/2026 1:30 PM EDT Office Visit [facility] ADULT DENTAL [address] [place] [address] Radha, Johana [address] [place] [address] documented as of this encounter Visit Diagnoses Diagnosis Moderate persistent asthma, unspecified whether complicated documented in this encounter
--- OUTSIDE RECORDS SUMMARY | 2025-08-02 11:49 | XMS_ITS | Encounter Summary ---
Author Organization [employer] [facility] Address [address] [place] [address] 7t [place] [address] Care Team Providers Care Trial Judge Name Role Phone Unavailable Primary Care Provider Unavailabl e Reason for Visit * Reason Comments Med Refill Encounter Details Date Type Department Care Team (Late st Contact Info) Description 11/29/2023 Refill [facility] MEDICINE [address] [place] [address] Christianne John MD [address] [place] [address] Moderate persistent asthma, unspecified whether complicated Social [...] Description 01/28/2026 1:30 PM EDT Office Visit [facility] ADULT DENTAL [address] [place] [address] Radha, Johana [address] [place] [address] documented as of this encounter Visit Diagnoses Diagnosis Moderate persistent asthma, unspecified whether complicated documented in this encounter
--- OUTSIDE RECORDS SUMMARY | 2025-08-02 11:49 | XMS_ITS | Encounter Summary ---
Author Organization [employer] [facility] Address [address] [place] [address] 7t [place] [address] Care Team Providers Care Information Developer Name Role Phone Unavailable Primary Care Provider Unavailabl e Reason for Visit * Reason Comments Med Refill Encounter Details Date Type Department Care Team (Late st Contact Info) Description 12/02/2023 Refill [facility] MEDICINE [address] [place] [address] Christianne John MD [address] [place] [address] Moderate persistent asthma, unspecified whether complicated Social [...] Description 01/28/2026 1:30 PM EDT Office Visit [facility] ADULT DENTAL [address] [place] [address] Radha, Johana [address] [place] [address] documented as of this encounter Visit Diagnoses Diagnosis Moderate persistent asthma, unspecified whether complicated documented in this encounter
--- OUTSIDE RECORDS SUMMARY | 2025-08-02 11:49 | XMS_ITS | Encounter Summary ---
Author Organization [employer] [facility] Address [address] [place] [address] 7t [place] [address] Care Team Providers Care Cruise Guide Name Role Phone Marycarmen Quijano MD Primary Care Provider [phone] Reason for Visit * Reason Comments Med Refill Encounter Details Date Type Department Care Team ([facility] Contact Info) Description 04/15/2023 Refill [facility] MEDICINE [address] [place] [address] Marycarmen Quijano MD [address] [place] [address] Social History Tobacco Use Types Packs/Day Years [...] Upcoming Encounters Date Type Department Care Team ([facility] Contact Info) Description 01/28/2026 1:30 PM EDT Office Visit [facility] ADULT DENTAL [address] [place] [address] RadhaJohana [address] [place] [address] documented as of this encounter Visit Diagnoses Not on filedocumented in this encounter Care Teams Cruise Guide Relationship Specialty Start Date End Date Marycarmen Quijano MD [address] [place] [address] PCP - General Family Medicine 03/02/23 06/20/23 documented as of this encounter
--- OUTSIDE RECORDS SUMMARY | 2025-08-02 11:49 | XMS_ITS | Encounter Summary ---
Author Organization [employer] [facility] Address [address] [place] [address] 7t [place] [address] Care Team Providers Care Black[employer] Farm Name Role Phone Unavailable Primary Care Provider Unavailabl e Reason for Visit * Reason Comments Med Refill Encounter Details Date Type Department Care Team (Late st Contact Info) Description 12/01/2023 Refill [facility] MEDICINE [address] [place] [address] Christianne John MD [address] [place] [address] Moderate persistent asthma, unspecified whether complicated Social [...] Description 01/28/2026 1:30 PM EDT Office Visit [facility] ADULT DENTAL [address] [place] [address] Radha, Johana [address] [place] [address] documented as of this encounter Visit Diagnoses Diagnosis Moderate persistent asthma, unspecified whether complicated documented in this encounter
--- OUTSIDE RECORDS SUMMARY | 2025-08-02 11:49 | XMS_ITS | Data Portability ---
Author Organization [facility], [facility] Address [address] [place] [phone] Care Team Providers Care Stone Grader Name Role Phone HIM CCA OTHER Assessment Encounter Date Assessment Date Assessment LastModified by Organization Details LastModified Time 04/08/2023 04/08/2023 77 YOF with CHF, COPD recent hospitalization being seen for report of low 02 sat at home in the 80s, On warp changer exam sat 91% on 2L pt in [...] follow up w pcp in 1 week [email or web address] Not available 09/18/2024 20:08:58 Plan of Treatment Reminders Order Date Submit Date Provider Last Modified By Organization Details Last Modified Time Details Appointments None recorded. Lab rapid SARS CoV 2 Ag, QL IA, respiratory specimen 2023 024 [facility], [address] [place] [address], [phone] 4 09:06:35 rapid flu (A+B) [address], [phone] 4 09:06:54 CBC w/ auto diff 2021 022 [facility] (Centralized Electronic Ordering - All Locations), Patient Can Go To The Location Of Their Choice, [address] 2 00:05:50 CMP, serum or plasma 2021 [facility] (Centralized Electronic Ordering - All Locations), Patient Can Go To The Location Of Their Choice, [address] 19:37:00 unlisted lab - urinalysis w/reflex culture 2021 [facility] (Centralized Electronic Ordering - All Locations), Patient Can Go To The Location Of Their Choice, [address] 01:53:39 cmp, whole blood + gloria [email or web address], [address] [place] [address], [id number] 2 16:24:03 urinalysis, dipstick 2021 [email or web address] [address] [place] [address], [id number] 16:24:43 Referral None recorded. Procedures None recorded. Surgeries None recorded. Imaging None recorded. Medication Orders prednisone 10 mg tablet 2023 [facility], [address] [place] [address], [id number], 4 12:30:23 azithromyci n 250 mg tablet 2023 024 [facility], [address] [place] [address], [id number], 4 12:30:23 azithromyci n 250 mg tablet 2023 024 [email or web address] [facility], [address] [place] [address], [id number], 4 20:08:15 prednisone 20 mg tablet 2023 024 [email or web address] [facility], [address] [place] [address], [id number], 4 20:08:15 ipratropium 0.5 mg-albutero l 3 mg (2.5 mg base)/3 mL nebulizatio n soln 2023 024 [facility], [address] [place] [address], [id number], 20:08:15 Patient TargetsNo targets recorded. Patient InstructionsNo [...] Leukocytes neg Not Available Main - [facility] [address] [place] [address], [phone] 02/16/2022 16:23:39 02/17/20 22 02/16/2022 urina lysis , dipst ick Nitrite negati ve Not Available Main - [facility] [address] [place] [address], [id number] 02/16/2022 16:23:39 02/17/20 22 02/16/2022 urina lysis , dipst ick Protein 4+ Not Available Main - [facility] [address], [id number] 02/16/2022 16:23:39 02/17/20 22 02/16/2022 urina lysis , dipst ick Ketone 2+ Not Available Main - [facility] [address], [address] 02/16/2022 16:23:39 02/17/20 22 02/16/2022 urina lysis , dipst ick Glucose negati ve Not Available Main - [facility] [address] [place] [address], [phone] 02/16/2022 16:23:39 02/17/20 22 02/16/2022 cmp, whole blood + picco lo ALB 2.8 Not Available Main - [facility] [address], [address] 02/16/2022 16:22:48 02/17/20 22 02/16/2022 cmp, whole blood + picco lo ALP 114 Not Available Main - [facility] [address], [address] 02/16/2022 16:22:48 02/17/20 22 02/16/2022 cmp, whole blood + picco lo ALT 12 Not Available Main - [facility] [address], [phone] 02/16/2022 16:22:48 02/17/20 22 02/16/2022 cmp, whole blood + picco lo AST 18 Not Available Main - [facility] [address], [address] 02/16/2022 16:22:48 02/17/20 22 02/16/2022 cmp, whole blood + picco lo BUN 17 Not Available Main - [facility] [address], [address] 02/16/2022 16:22:48 02/17/20 22 02/16/2022 cmp, whole blood + picco lo Ca 9.8 Not Available Main - [facility] [address], [address] 02/16/2022 16:22:48 02/17/20 22 02/16/2022 cmp, whole blood + picco lo CI- normal Not Available Main - [facility] [address], [address] 02/16/2022 16:22:48 02/17/20 22 02/16/2022 cmp, whole blood + picco lo CRE 1.3 Not Available Main - [facility] [address], [address] 02/16/2022 16:22:48 02/17/20 22 02/16/2022 cmp, whole blood + picco lo GLU 326 Not Available Main - [facility] [address], [address] 02/16/2022 16:22:48 02/17/20 22 02/16/2022 cmp, whole blood + picco lo K+ 3.8 Not Available Main - [facility] [address], [address] 02/16/2022 16:22:48 02/17/20 22 02/16/2022 cmp, whole blood + picco lo Na+ 138 Not Available Main - [facility] [address], [address] 02/16/2022 16:22:48 02/17/20 22 02/16/2022 cmp, whole blood + picco lo tCO2 27 Not Available Main - [facility] [address], [address] 02/16/2022 16:22:48 Result Notes None recorded. Medical Equipment None Reported. Allergies Allergen ID Allergen Name Allergen Category Reaction Reaction Severity Criticality Documentation Date Start Date Code Code System Note Provider Name and Address Organization Details Recorded Time 84700 Motrin medicatio n Not available Not available Not available 09/18/202424979 8 RxNorm Not Available [facility] - production 4 15:17:42 67113 acetamino phen / oxycodone medicatio n Not available Not available Not available 09/18/2024 62069 3 RxNorm Not Available [facility] - production 4 15:17:42 13827 tramadol medicatio n Not available Not available Not available 09/18/2024 56197 RxNorm Not Available [facility] - production 4 15:17:42 Medications Name Sig [...] Not Available No t Available Dexcom G[address] Bailiff USE DIRECTED active Not Available Not Available [...] % 99 % 98.9 [degF] Not Available [facility] [employer] 2 14:54:34 Date Recorded Body weight Respiratory rate Systolic And Diastolic Systolic And Diastolic Provider Name and Address Organization Details Last Updated DateTime 02/16/2022 20610.24 g 20 /min 164/63 mm[Hg] 164/63 mm[Hg] Not Available [facility] [employer] 2 14:54:34 Date Recorded Body temperature Heart [...] [degF] 16 /min 137/76 mm[Hg] Not Available [facility] [facility] - production 4 20:04:27 Social History None [...] Codes Diagnosis Note 1594 Hanane Mena MD [facility] - [address] [phone] 02/16/2022 14:13:00 05/29/2022 14:46:24 Acute low back pain 960007280 M54.50 Pt p/w 5 days of atraumatic [...] no improvemen t in pain consider imagingPer warp changer, requestor asked for CBC w/ diff and CMP (not acknowledg ed in [facility] portal) but no orders placed. Reasonable to check CBC w/ diff and CMP thus orders placed. Ketonuria [id number] R82. 4 Pt with 2+ urinary ketones [...] and call PCP if FSG > 350. [id number] Damien Alfredo MD Main - [facility] [address] [place] [phone] 04/08/2023 16:22:43 04/08/2023 23:08:09 Hypoxia [id number] R09.02 [id number] Wander Smith MD Main - [facility] [address] [place] [phone] 09/18/2024 20:04:23 09/18/2024 21:06:53 Acute exacerbation of chronic obstructive pulmonary disease 427260617 J44.1 Health Concerns Section Related Observation LastModified by Organization Detai ls LastModified Time None Recorded Concern Status LastModified by Organization Details LastModified Time None Recorded Advance Directives Directive None Recorded Payers Insurance Date Sequence Insurance Name Policy Number Policy Rendon Covered Member ID Rendon Member ID Guarantor Name 04/08/2023 1 [facility] - DOS PRIOR TO 2023 - DUAL ELIGIBLE (MEDICARE REPLACEMENT/AD VANTAGE - HMO) Katherine Griffith [id number] Katherine Griffith 09/18/2024 1 [facility] - DOS ON OR AFTER 2023 - DUAL ELIGIBLE - DETENTION OPTIONS AND ONE CARE (MEDICARE REPLACEMENT/AD VANTAGE - HMO) Katherine Griffith [id number] Katherine Griffith Notes Date Note Type Note [...] .................... .................... .................... .................... .................... .................... . Bilingual Speech Language Pathologist Note: Patient is a 76 year old [...] seen by urologist last month according to coronary care unit nurse, kidney function was good. Urine sample obtained and dipped; changes in PRO, SG and KET detected. Urine sent to [facility] for UA and Culture. Vital signs obtained and all within normal limits. Red flags discussed. Consulted with Dr. Mena. Patient is to follow up with PCP/care team regarding her signs, symptoms and todays visit. Dr. Mena recommended blood work. Bilingual Speech Language Pathologist Sara Davis was dispatched for procedure. See warp changer Sara Davis run report for further patient [...] which suggests h Hanane Mena MD [address] [place] [address],[address], [place], [phone], [employer] 02/16/2022 16:24:46 04/08/2023 text/html CRC Nursing Assessment: [...] on behalf of member with request for [facility] for eval increased SOB and decreased oxygen levels. Daughter states member talking in full sentences with no acute distress. Daughter could not provide further information. Discuss if symptoms progress to seek emergent care.-verbalize understanding. Verify member name/- Damien Alfredo MD [address] [facility],[address], [place], [phone], [employer] 04/08/2023 16:28:34 09/18/2024 text/html CRC Nurse Triage [...] s/s and seek emergency treatment if needed. Bilingual Speech Language Pathologist Organization Information for [facility] Business Legal Name: [facility] Address: [address] [place] [address], [place]es [address], Knock Up Assembler: Louis Stockton MD CLIA No.: [id number] Bilingual Speech Language Pathologist POC Test Results from [facility] Rapid COVID antigen (20:02:29) COVID: - Rapid influenza antigen (20:02:30) Flu: - Wander Smith MD [address] [place] [address],[address], [place], [phone], [facility] - [employer] 09/18/2024 21:05:29 OBGyn Episode No OBEpisode recorded.
== END 2025-08-02 10:20 | disposition home or self-care (01) ==
LOC: HO.HPS 09:57
PROVIDERS: PCP Internal Medicine; Visit Provider Hospitalist
DX: G47.33 Obstructive sleep apnea (adult) (pediatric) (principal); J45.40 Moderate persistent asthma, uncomplicated; I35.0 Nonrheumatic aortic (valve) stenosis; R06.09 Other forms of dyspnea
CPT/HCPCS: 99214; G2211

== ENCOUNTER → 2025-08-02 09:57 | Outpatient (BNVA) | payer OTHER, SELFPAY | PROVIDERS: PCP Internal Medicine; Visit Provider Hospitalist | DX: R06.09 Other forms of dyspnea (principal); J45.40 Moderate persistent asthma, uncomplicated; I35.0 Nonrheumatic aortic (valve) stenosis | CPT/HCPCS: 99212 ==

== ENCOUNTER 2025-08-09 10:47 | Outpatient (AMB) | payer OTHER, SELFPAY ==
--- OUTSIDE RECORDS SUMMARY | 2024-03-31 04:30 | XMS_ITS ---
Author Organization [facility] Address [address] [place] [address] Care Team Providers Care Television Service Engineer Name Role Phone Jaime VORA, Shelby Primary Care Provider Unavail Randy Marshall Unavailable [phone] REASON FOR VISIT Seen Sooner Encounters Encounter Location Date Provider Diagnosis [facility] [address] [place] [address] 03/31/2024 Randy Leal Plan Of Treatment Next Appt Details Provider Name:Randy Leal , 11/20/2025 03:00:00 PM, [address] [place], [address], Progress Notes * Katherine DIASDOB: 5 (80 yo F)Acc No.[id number]:03/31/2024 Progress Notes Patient: Katherine FARMER Provider: Adelina Leal DPM :1945 A ge:78 Y S ex:Female Date:03/31/2024 Address:[address] [place], [place] [phone] Pcp:Shelby Sandoval MD Subjective: * Chief Complaints: [...] 03/31/2024 Generated for Herber olea/Eduardo on: 1 10/09/2024 01:06 PM EST
--- OUTSIDE RECORDS SUMMARY | 2024-09-19 05:00 | XMS_ITS ---
Author Organization [facility] Address [address] [place] [address] Care Team Providers Care Pigment Processor Name Role Phone Jaime VORA, Shelby Primary Care Provider Unavail Randy Marshall Unavailable [phone] Encounters Encounter Location Date Provider Diagnosis [address] [address] 09/19/2024 Randy Leal Plan Of Treatment Next Appt Details Provider Name:Randy Leal , 11/20/2025 03:00:00 PM, [address] [place], [address], Progress Notes * MICAELAKatherine BashirDOB: 5 (80 yo F)Acc No.[id number]:09/19/2024 Progress Note Patient: Katherine FARMER Provider: Adelina Leal DPM :1945 A ge:79 Y S ex:Female Date:09/19/2024 Address:[address] [place], [place] [id number] Pcp:Shelby Sandoval MD Subjective: * Chief Complaints: [...] Date: 11/20/2023 Generated for Herber olea/Rolando/Emely on: 10/09/2024 01:05 PM EST
--- OUTSIDE RECORDS SUMMARY | 2025-03-27 04:30 | XMS_ITS ---
Author Organization [facility] Address [address] [place] [address] Care Team Providers Care Sweep Press Operator Name Role Phone Jaime VORA, Shelby Primary Care Provider Unavail Randy Marshall Unavailable [phone] Encounters Encounter Location Date Provider Diagnosis [address] [address] 03/27/2025 Randy Leal Plan Of Treatment Next Appt Details Provider Name:Randy Leal , 11/20/2025 03:00:00 PM, [address] [place], [address], Progress Notes * MICAELAKatherine BashirDOB: 5 (80 yo F)Acc No.[id number]:03/27/2025 Progress Note Patient: Katherine FARMER Provider: Adelina Leal DPM :1945 A ge:79 Y S ex:Female Date:03/27/2025 Address:[address] [place], [place] [id number] Pcp:Shelby Sandoval MD Subjective: * Chief Complaints: [...] 03/27/2025 Generated for Herber olea/Rolando/Emely on: 1 10/09/2024 01:05 PM EST
--- NOTE | 2025-08-09 10:49 | A.OFFVIS_ITS ---
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 Blower Installer Required: Yes Blower Installer Services: Blower Installer Present Blower Installer Name: voice box Information Interpreted: non-clinical & clinical Maternity Nurse: Maternity Nurse Present (Nan) Accompanied by: Self / Same As Patient Allergies ibuprofen (From Motrin) Allergy (Intermediate, Verified 08/02/25 10:09) High Blood Pressure, Rash oxycodone (From Percocet) Allergy (Intermediate, Verified 08/02/25 10:09) Itching tirzepatide (From Mounjaro) Adverse Reaction (Severe, Verified 08/02/25 10:09) Diarrhea Medication List - Last Reconciled 08/09/25 by Pushpa Galicia LPN acetaminophen ER 1,300 mg (2 x 650 mg) PO Q8H PRN 30 days albuterol sulfate 90 mcg/actuation 2 inhalations inhalation Q6H PRN 30 days amlodipine 10 mg PO DAILY aspirin 81 mg PO BEDTIME 90 days atorvastatin 80 mg PO BEDTIME 90 days blood pressure monitor As directed blood sugar diagnostic (FreeStyle Lite Strips) Use daily As directed to check blood glucose blood sugar diagnostic (FreeStyle Lite Strips) 3times a day blood-glucose meter (FreeStyle [employer] Lite kit) As directed blood-glucose meter (FreeStyle Lite Meter kit) Use daily As directed to check blood sugars blood-glucose sensor (Dexcom G7 Sensor device) Use daily As directed to monitor blood glucose. Change q 10 days blood-glucose,rolfer,cont (Dexcom G7 Rand Butting Machine Operator) use daily As directed to monitor blood glucose brimonidine 0.2% 1 drp ophthalmic (eye) TID calcium acetate(phosphat bind) 667 mg PO BID 90 days cane As directed cholecalciferol (vitamin D3) 25 mcg PO DAILY 3 months clopidogrel 75 mg PO DAILY [Diabetic shoes with inserts As directed] disposable gloves As directed esomeprazole magnesium (Nexium) 40 mg PO DAILY ferrous sulfate 325 mg PO .once a week 90 days fluticasone propionate 50 mcg/actuation 1 spray intranasal DAILY PRN 30 days agscpmobort-nhfridpzi-krbyswdg 200-62.5-25 mcg (Trelegy Ellipta) 1 inh inhalation DAILY 30 days folic acid 1 mg PO QAM 90 days FreeStyle Lancets (lancets) 3 times a day NS gabapentin 300 mg PO BEDTIME 90 days glucagon 3 mg/actuation (Baqsimi) mg intranasal hydralazine 25 mg PO TID 90 days hydrocortisone 1% (Anti-Itch (hydrocortisone)) 1 appl topical BID PRN 4 weeks [incomtinemce liner pads As directed] insulin glargine U-300 conc (Toujeo SoloStar U-300 Insulin) 24 units (0.08 mL) subcut DAILY 90 days ipratropium-albuterol 0.5 mg-3 mg(2.5 mg base)/3 mL 3 mL inhalation RQ4H WHILE AWAKE ketoconazole 2% 1 appl topical 2XW 30 days lancets (TRUEplus Lancets) As directed test 4 times a day lancets (FreeStyle Lancets) use daily as directed to check blood glucose latanoprost 0.005% 1 drp ophthalmic (eye) QPM losartan 25 mg PO DAILY 90 days meclizine (Travel-Ease (meclizine)) 12.5 mg (1/2 x 25 mg) PO BID PRN methylcellulose (laxative) (Citrucel) 500 mg PO DAILY montelukast 10 mg PO QPM 90 days Novolog FlexPen U-100 Insulin (insulin aspart U-100) 4 units (0.04 mL) subcut TID NS Oxygen Home Use As directed pen needle, diabetic (BD Sia 2nd Gen Pen Needle) 5 times a day semaglutide (Ozempic) 2 mg (0.75 mL) subcut QWEEK simethicone (Gas Relief (simethicone)) 125 mg PO BID PRN 90 days sucralfate 1 g PO BID PRN torsemide 20 mg PO BID [wipes As directed] Do you need a note to return to daycare/school/sports/work: No HPI Comments Details: Patient is a postmenopausal woman 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 Guard Entrance Registrar concerns: sharp stabbing pain in the left side. Bladder pressure, occasional foul odor. See's GI for stomach concerns. Painful bump on her buttocks that hurts to sit on. Currently sexually active, occasional dyspareunia. Attempting to eat a healthy diet with calcium and vitamin D and stays active with exercise-limited. Last mammogram; 2024. Colonoscopy is UTD. Denies any family history of breast, ovarian or colon cancer. 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 Aortic stenosis CKD (chronic kidney disease) stage 3, GFR 30-59 ml/min Dyslipidemia Diabetic polyneuropathy associated with type 2 diabetes mellitus Diabetic nephropathy associated with type 2 diabetes mellitus Chronic kidney disease Hypertension Asthma Thalamic pain syndrome GERD (gastroesophageal reflux disease) Morbid obesity Surgical History H/O colonoscopy H/O aortic valve replacement History of breast lump/mass excision History of tubal ligation History of cholecystectomy Family History Sister History of renal pelvis cancer Father Suicide Mother Lung disease Diabetes mellitus Social History Household Members: Family Housing: House Do you presently have visiting nurse or other home services: Yes (card game operator) Alcohol intake: never Comment: pt stays with pt. Patient Tobacco Use Status: Former Tobacco user Tobacco use type: Cigarette Years Smoked: 5 years e-Cigarette/Vaping Use: Never Used Second Hand Smoke Exposure: No service: No Current occupational status: unemployed and disabled Gender identity: Female Cognitive needs: Yes Hearing needs: No Vision needs: No Female Reproductive History Menstrual Age of Menarche: 10 control method: permanent sterilization Menopause type: natural Total pregnancies: 10 Number of Living Children: 8 Ab spontaneous: 2 Date of Mammogram: 02/19/25 History of abnormal mammogram: No Date of last Bone Density Screenin07/26/25 Review of Systems Const All systems reviewed & are unremarkable except as noted in HPI and below Reports as per HPI Eyes Reports no additional complaints ENT Reports no additional complaints Card Reports no additional complaints Resp Reports no additional complaints GI Reports as per HPI and Reports no additional complaints Reports as per HPI Musc Reports no additional complaints Skin/Breast Reports as per HPI Neuro Reports no additional complaints Psych Reports no additional complaints Endo Reports no additional complaints Luis Antonio/Lymph Reports no additional complaints Aller/Immun Reports no additional complaints Physical Exam Vital Signs: Last Vital Signs BP 130/70 08/09/25 11:03 BMI result Body Mass Index 38.7 Const General: cooperative, healthy appearing, no acute distress, well developed and alert Orientation/consciousness: patient oriented x3 HEENT Head: Yes normal to inspection Eyes General: appearance normal, both eyes and all related structures Neck Neck: Yes normal visual inspection Thyroid: Thyroid normal Chest Chest palpation & inspection: normal inspection of the chest and other (no puckering, dimpling, peau de orange, retraction, discharge, masses) Breast/axilla inspection: normal inspection of the breasts Breast/axilla palpation: normal palpation of the breasts Resp Effort & Inspection: normal respiratory effort GI Inspection: Yes obesity Palpation (GI): Soft to palpation Rectal Exam - Female: deferred and No other (large left gluteal mass) General: Yes bladder normal to palpation External Female Exam: normal external appearance and normal appearance of the urethra Speculum Exam - Vagina: normal palpation and vagina atrophic Speculum Exam - Cervix: normal appearance of the cervix and normal palpation Bimanual exam- vagina & uterus: normal bimanual exam, normal palpation, uterine size normal, bladder normal to palpation, normal palpation and non-tender Bimanual Exam- Adnexa, other: no masses Skin General skin exam: no rashes or lesions noted Rashes: no rashes Neuro General: patient oriented x3 Cognition (Neuro): normal cognition Extrem General: Yes normal to inspection Psych Attitude: cooperative Thought process: Normal thought process present Results AMB Urinalysis, Automated UA Leukoctes 15 Felton/uL Last Edit by Sarah Robles LPN on 08/09/25 12: 02 UA Nitrite Last Edit by Sarah Robles LPN on 08/09/25 12:02 UA Urobilinogen mg/dL Last Edit by Sarah Robles LPN on 08/09/25 12: 02 UA Protein mg/dL Last Edit by Sarah Robles LPN on 08/09/25 12:02 UA pH Last Edit by Sarah Robles LPN on 08/09/25 12:02 UA Blood Leandro/uL Last Edit by Sarah Robles LPN on 08/09/25 12:02 UA Specific Mills Last Edit by Sarah Robles LPN on 08/09/25 12:0 2 UA Ketone Last Edit by Sarah Robles LPN on 08/09/25 12:02 UA Bilirubin mg/dL Last Edit by Sarah Robles LPN on 08/09/25 12:02 UA Glucose 5 mg/dL Last Edit by Sarah Robles LPN on 08/09/25 12:02 AMB Urinalysis Automated WC UR Glucose Last Edit by Sarah Robles LPN on 08/09/25 12:09 UR Ketone Last Edit by Sarah Robles LPN on 08/09/25 12:09 UR Specific Mills Last Edit by Sarah Robles LPN on 08/09/25 12:0 9 UR Blood Last Edit by Sarah Robles LPN on 08/09/25 12:09 UR Ph Last Edit by Sarah Robles LPN on 08/09/25 12:09 UR Protein 30 Last Edit by Sarah Robles LPN on 08/09/25 12:09 UR Nitrite Last Edit by Sarah Robles LPN on 08/09/25 12:09 UR Leukocytes Moderate Last Edit by Sarah Robles LPN on 08/09/25 12 :09 Results Reviewed Results Reviewed: Laboratory Last Values Ur Protein (Clinic) 30 08/09/25 12:08 Glucose (UA)(Auto) 5 mg/dL 08/09/25 11:59 Leukocyte Esterase (Auto) 15 Felton/uL 08/09/25 11:59 Leukocyte Esterase (Clinic) Moderate 08/09/25 12:08 Assessment & Plan Assessment & Plan (1) Pelvic pain: Code(s): R10.2 - Pelvic and perineal pain Category: Medical Plan: Cervical cultures, UA, pelvic ultrasound, follow up pending results in person. The patient expressed understanding and agreement with the plan of care. All of her questions and concerns were addressed to the best of my ability. (2) Mass of buttock: Comment: left Code(s): R22.2 - Localized swelling, mass and lump, trunk Category: Medical Plan: Referral placed to general surgeons for further evaluation. The patient expressed understanding and agreement with the plan of care. All of her questions and concerns were addressed to the best of my ability. Total time I personally spent on visit and management today: ?15 minutes. Time spent included review of pertinent office notes in the electronic health record; review of laboratory and imaging results; review of personal family medical history; performing physical exam; discussing diagnosis and plan of care with the patient; documenting the encounter in the EMR. (3) Encounter for well woman exam with routine gynecological exam: Code(s): Z01.419 - Encounter for gynecological examination (general) (routine) without abnormal findings Category: Medical Plan Discussed: Current recommendations for pap smears per ASCCP guidelines. Breast awareness, periodic self breast exams and yearly mammogram. Maintain a healthy lifestyle, well balanced diet including Calcium 1,200 mg and Vitamin D 600 IU daily, and routine exercise. Contact the office with any postmenopausal bleeding. Patient verbalizes understanding and agrees to the plan of care. She was given opportunity to ask questions and all questions were answered to the best of my ability. 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 This note is constructed using voice recognition software. While every effort has been made to ensure accuracy, adaptive physical education teacher errors may have been included. Orders: Orders US pelvic and transvaginal Today R10.2 - Pelvic and perineal pain CT NG by PCR Vag/Cerv Today Z11.3 - Encounter for screening for infections with a predominantly sexual mode of transmission Bacterial Vaginosis Panel Today Z11.3 - Encounter for screening for infections with a predominantly sexual mode of transmission AMB Urinalysis Automated Today R10.2 - Pelvic and perineal pain Referrals General Surgery Referral R22.2 - Localized swelling, mass and lump, trunk Coding Level of Care Code Est Pt Level 2 (29634) Est Pt Prev Care >65y(04756) Diagnoses Pelvic pain R10.2 Mass of buttock R22.2 Encounter for well woman exam with routine gynecological exam Z01.419
[2025-08-09 11:03] VITALS: BP 130/70; BMI 38.7
--- OUTSIDE RECORDS SUMMARY | 2025-08-09 13:05 | XMS_ITS | Patient Health Record ---
Author Organization [facility] Address [address] [place] [address] Care Team Providers Care Operating Engineer Apprentice Name Role Phone Jaime VORA, [place] Primary Care Provider Unavail able Randy Leal Unavailable [phone] Allergies Allergen (clinical drug ingredient) Drug/Non Drug [...] Problem Acquired hammer toe of right foot (3735079032842398 ) Other hammer toe(s) (acquired), right foot (M20.41) Active confirmed Problem Acquired hammer toe of left foot (6561690072116175 ) Other hammer toe(s) (acquired), left foot (M20.42) Active confirmed Problem Polyneuropathy due to type 2 diabetes mellitus (528912820) Type 2 diabetes mellitus with diabetic polyneuropathy (E11.42) Active confirmed Vital Signs Blood pressure diastolic 65 mm Hg 07/24/2025 Height 4 ft 9 in in 07/24/2025 Blood pressure systolic 130 mm Hg 07/24/2025 Weight 182 lbs 07/24/2025 BMI 39.38 kg/m2 07/24/2025 Procedures Procedure Date Ordered Date Performed Result Body Sit e 07430-KUUQDGC NAIL, 6 OR MORE 12/26/2024 N/A 96660-Uipnabyb Plate 12/26/2024 N/A 62126-RUNG SKIN LESIONS, 2 TO 4 12/26/2024 N/A 47179-WAKQXBA NAIL, 6 OR MORE 04/24/2025 N/A 31098-MVYQ SKIN LESIONS, 2 TO 4 04/24/2025 N/A 56203-AGZRJWV NAIL, 6 OR MORE 07/24/2025 N/A 90887-SDBQ SKIN LESIONS, 2 TO 4 07/24/2025 N/A Encounters Encounter Location Date Provider Diagnosis [address] [address] 12/26/2024 Randy Leal Type 2 diabetes mellitus with diabetic polyneuropathy E11.42 ; Tinea unguium B35.1 ; Other hammer toe(s) (acquired), right foot M20.41 ; Other hammer toe(s) (acquired), left foot M20.42 and Subungual hematoma of left foot, initial encounter S90.222A [address] [address] 04/24/2025 Randy Leal Type 2 diabetes mellitus with diabetic polyneuropathy E11.42 ; Tinea unguium B35.1 and Xerosis of skin L85.[address] [address] 07/24/2025 Randy Leal Type 2 diabetes mellitus with diabetic polyneuropathy E11.42 ; Tinea unguium B35.1 and Xerosis of skin L85.[address] [address] 09/19/2024 Randy Leal [address] [address] 12/26/2024 Randy Leal [address] [address] 03/27/2025 Randy Leal Assessments Encounter Date Diagnosis [...] Treatment Pending Test Test Name Order Date 50720-CITHRAN NAIL, 6 OR MORE 03/17/2024 16972-PQXNYFD NAIL, 6 OR MORE 06/16/2024 27229-IGKCAIZ NAIL, 6 OR MORE 12/26/2024 63302-ZYOLKLC NAIL, 6 OR MORE 04/24/2025 82808-AKEYBMD NAIL, 6 OR MORE 07/24/2025 10171-Kyletdgu Plate 12/26/2024 85662-HFGX SKIN LESIONS, 2 TO 4 07/24/20 25 00770-SBON SKIN LESIONS, 2 TO 4 04/24/20 25 11646-IHTE SKIN LESIONS, 2 TO 4 12/27/19 25 88308-WNGO SKIN LESIONS, 2 TO 4 06/16/20 24 15610-PQQA SKIN LESIONS, 2 TO 4 03/17/20 24 Next Appt Details Provider Name:Randy Leal , 11/20/2025 03:00:00 PM, [address] [place] [address], [phone], Insurance Providers Payer Name Payer Address Payer Phone Subscriber Number Group Number Insured Name Patient Relationship to Insured Coverage Start Date Coverage End Date [facility] [employer] Claims [address] YASMIN Barkley [id number] Katherine Jamil Self - patient is the insured Medical (General) History Medical History History ICD Code Anxiety Arthritis asthma Back,Hip,and Knee pain CAD (Cholesterol) Cataracts Depression Diabetic Heart disease High blood pressure Kidney disease Lung disease Numbness Poor circulation Reflux ( GERD) sinusitis Vascular phlebitis (clots) Chicken pox Replacement Heart Valves Transfusions Surgical History Surgery Date(Month/Year)
--- OUTSIDE RECORDS SUMMARY | 2025-08-09 13:05 | XMS_ITS | Encounter Summary ---
Author Organization [employer] [facility] Address [address] [place] [address] 7t [place] [address] Care Team Providers Care Clinical Laboratory Director Name Role Phone Marycarmen Quijano MD Primary Care Provider [phone] Reason for Visit * Reason Comments Med Refill Encounter Details Date Type Department Care Team ([facility] Contact Info) Description 04/15/2023 Refill [facility] MEDICINE [address] [place] [address] Marycarmen Quijano MD [address] [place] [address] Social History Tobacco Use Types Packs/Day Years [...] Upcoming Encounters Date Type Department Care Team ([facility] Contact Info) Description 01/28/2026 1:30 PM EDT Office Visit [facility] ADULT DENTAL [address] [place] [address] RadhaJohana [address] [place] [address] documented as of this encounter Visit Diagnoses Not on filedocumented in this encounter Care Teams Clinical Laboratory Director Relationship Specialty Start Date End Date Marycarmen Quijano MD [address] [place] [address] PCP - General Family Medicine 03/02/23 06/20/23 documented as of this encounter
--- OUTSIDE RECORDS SUMMARY | 2025-08-09 13:05 | XMS_ITS | Encounter Summary ---
Author Organization [employer] Address [address] [place] [address] 7t [place] [address] Care Team Providers Care Transition Advisor Name Role Phone Marycarmen Quijano MD Primary Care Provider [phone] Reason for Visit * Reason Comments Med Refill Encounter Details Date Type Department Care Team ([facility] Contact Info) Description 03/07/2023 Refill [facility] MED & PEDS [address] [place], [place] [phone] Marycarmen Quijano MD [address] [place], [place] [phone] Social History Tobacco Use Types Packs/Day Years [...] ([facility] Contact Info) Description 01/28/2026 1:30 PM EDT Office Visit [facility] ADULT DENTAL [address] [place] [address] Radha, Johana [address] [place] [address] documented as of this encounter Visit Diagnoses Not on filedocumented in this encounter Care Teams Transition Advisor Relationship Specialty Start Date End Date Marycarmen Quijano MD [address] [place] [address] PCP - General Family Medicine 03/02/23 06/20/23 documented as of this encounter
--- OUTSIDE RECORDS SUMMARY | 2025-08-09 13:05 | XMS_ITS | Clinical Summary ---
Author Organization [employer] Address [address] [facility] 7t [place] [address] Care Team Providers Care Social Work Nurse Name Role Phone Unavailable Primary Care Provider [...] BEDTIME 2 Active Blood Glucose Monitoring Suppl (Good4UStyle [place] Lite) w/Device kit TEST BLOOD SUGAR THREE [...] by mouth at bed time. Active Creon 53882-46621 units capsule 3 Active pantoprazole (ProtoNix) 40 [...] 3 Active ergocalciferol (Vitamin D2) 1.25 MG (15554 UT) capsule TAKE 1 CAPSULE BY MOUTH [...] Description 07/25/2025 10:15 AM EDT Office Visit [facility] ADULT DENTAL [address] [place] [address] Johana Garcia Partially edentulous mandible, unspecified edentulism class (Primary Dx); Localized gingival recession, severe; Dental plaque; Extruded tooth 05/29/2025 1:20 PM EDT Office Visit [facility] [address] [place], [place] [phone] Christianne John MD Diarrhea, unspecified type (Primary Dx) 05/29/2025 Telephone [facility] MEDICINE [address] [place] [phone] Christianne John MD 05/29/2025 Orders Only GENERIC [...] Description 01/28/2026 1:30 PM EDT Office Visit [facility] ADULT DENTAL [address] [place] [address] Radha, Johana [address] [place] [address] Health Maintenance Due Date Last Done Comments [...] Blood Count 14.5(H) 4.8 - 10.8 X10*3/uL [facility] Red Blood Count 4.98 4.20 - 5.50 X10*6/uL [facility] Hemoglobin 12.4 12.0 - 16.0 g/dl [facility] Hematocrit 38.9 37.0 - 47.0 % [facility] Mean Corpuscular Volume 78.1(L) 80.0 - 98.0 fL [facility] Mean Corpuscular Hemoglobin 24.9(L) 27.0 - 33.0 pg [facility] Mean Corpuscular HGB Conc 31.9 31.0 - 35.0 g/dl [facility] Red Cell Distribution Width 15.6 11.0 - 16.0 % [facility] Platelet Count 417(H) 160 - 400 X10*3/uL [facility] Mean Platelet Volume 9.5 9.4 - 12.3 fL [facility] Neutrophils Percent Auto 76.6(H) 45 - 73 % [facility] Imm Gran Pct Auto 0.4 0.0 - 0.4 % [facility] Lymphocytes Percent Auto 15.5(L) 20 - 40 % [facility] Monocytes Percent Auto 5.5 2 - 11 % [facility] Eosinophils Percent Auto 1.5 0 - 4 % [facility] Basophils Percent Auto 0.5 0 - 2 % [facility] NRBC Pct Auto 0.0 0.0 - 0.2 /100WBC [facility] Neutrophils Absolute Auto 11.1(H) 2.0 - 8.3 x10*3/uL [facility] Imm Gran Abs Auto 0.06(H) 0.00 - 0.03 X10*3/uL [facility] Lymphocytes Absolute Auto 2.3 1.2 - 4.9 X10*3/uL [facility] Monocytes Absolute Auto 0.8 0.1 - 1.2 X10*3/uL [facility] Eosinophils Absolute Auto 0.2 0.0 - 0.4 X10*3/uL [facility] Basophils Absolute Auto 0.1 0.0 - 0.2 X10*3/uL [facility] NRBC Abs Auto 0.000 0.0 - 0.012 X10*3/uL [facility] Blood Venous blood specimen / Unknown 05/29/2025 2:12 PM EDT 05/29/2025 3:57 PM EDT us Christianne John MD LAB BLOOD ORDERABLES Final Result [facility] [address] [place] [phone] * (ABNORMAL) C-reactive Protein (05/29/2025 2:12 PM EDT) C Reactive Protein 2.65(H) < or = 0.50 mg/dL [facility] Blood Venous blood specimen / Unknown 05/29/2025 2:12 PM EDT 05/29/2025 3:57 PM EDT us Christianne John MD LAB BLOOD ORDERABLES Final Result Performing Organization Address [facility]/ZIP Co de Phone Number [facility] [address] [place] [phone] * (ABNORMAL) Basic Metabolic Panel (05/29/2025 2:12 PM EDT) Only the most recent of2 resultswithin the time period is included. Pathologist [facility] Sodium 141 135 - 145 mmol/L [facility] Potassium 4.3 3.3 - 5.1 mmol/L [facility] Chloride 107 96 - 108 mmol/L [facility] Carbon Dioxide 24 22 - 29 mmol/L [facility] Anion Gap 14 12 - 20 [facility] Urea Nitrogen (BUN) 20(H) 9 - 16 mg/dL [facility] Creatinine, Serum 1.53(H) 0.5 - 1.4 mg/dL [facility] Estimated Glomerular Filt Rate 33 [facility] Comment:Chronic Kidney Disea se: Estimated GFR < 60 mL/min/1.50f7Ucfvmy Kidney Disease: Estimated GFR < 15 mL/min/1.73m2 Glucose 117(H) 60 - 115 mg/dL [facility] Calcium 9.8 8.4 - 10.2 mg/dL [facility] 05/29/2025 2:12 PM EDT 05/29/2025 3:57 PM EDT us Generic External Data Provider LAB BLOOD ORDERAB LES Final Result Performing Organization Address [facility]/ZIP Co de Phone Number [facility] [address] [place] [phone] * POCT Influenza B manually resulted (05/29/2025 2:04 PM EDT) [facility] Rapid Influenza B Ag Negative Negative, Indeterminate QC Media Lot # [id number] Lot# Expiration Date 100,82 Swab 05/29/2025 2:04 PM EDT Christianne John MD POINT OF CARE TEST ENTER/E DIT ORDERABLES Final Result * POCT Influenza A manually resulted (05/29/2025 2:04 PM EDT) [facility] Rapid Influenza A Ag Negative Negative, Indeterminate QC Media Lot # [id number] Lot# Expiration Date 100,82 Swab Nasopharyngeal structure / Unknown 05/29/2025 2:04 PM EDT Christianne John MD POINT OF CARE TEST ENTER/E DIT ORDERABLES Final Result * POCT Rapid COVID Ag (05/29/2025 2:03 PM EDT) [facility] Rapid COVID Ag Negative QC Media Lot # [id number] Lot# Expiration Date ,826 Swab 05/29/2025 2:03 PM EDT Christianne John MD POINT OF CARE TEST ENTER/E DIT ORDERABLES Final Result * HEMOGLOBIN A1C (07/09/2022 10:40 AM EDT) [facility] Estimated Average Glucose 151 mg/dL [facility] Comment: eAG = Estimated average glucose which is %A1C expressed as average glucose, using the formula of the F2E-Kfqxuwl Average Glucose study (ADAG), Diabetes Care, Vol.31,#8, [...] [facility] [place] [facility] Comment: Desirable LDL: less than [...] [facility] SYSTEM Estimated Glomerular Filt Rate 38 [facility] Comment: NOTE: For -Citizen Of [place] individuals, multiply the result by 1.210. Chronic [...] [facility] [address] from Last 3 Months or Most Recently Relevant to Health Maintenance Insurance # 1 [place] [address] [facility] OPTIONS (HMO D-SNP) YASMIN FRANCO [id number] [address] [place] [address] DENTAL - [facility]
--- OUTSIDE RECORDS SUMMARY | 2025-08-09 13:05 | XMS_ITS | Encounter Summary ---
Author Organization [employer] [facility] Address [address] [place] [address] 7 [place] [address] Care Team Providers Care Customer Accounts Advisor Name Role Phone Marycarmen Quijano MD Primary Care Provider [phone] Marycarmen Quijano MD Primary Care Provider [phone] Reason for Visit * Reason Comments Med Refill Encounter Details Date Type Department Care Team (Late st Contact Info) Description 11/10/2022 Refill [facility] MEDICINE [address] [place], [place] [phone] Marycarmen Quijano MD [address] [place], [place] [phone] Social History Tobacco Use Types Packs/Day Years [...] Description 01/28/2026 1:30 PM EDT Office Visit [facility] ADULT DENTAL [address] [place], [place] [phone] Radha, Johana [address] [place] [address] documented as of this encounter Visit Diagnoses Not on filedocumented in this encounter Care Teams Customer Accounts Advisor Relationship Specialty Start Date End Date Marycarmen Quijano MD [address] [place] [address] PCP - General Family Medicine 07/26/13 02/01/23 Marycarmen Quijano MD [address] [place] [address] PCP - General Family Medicine 03/02/23 06/20/23 documented as of this encounter
--- OUTSIDE RECORDS SUMMARY | 2025-08-09 13:05 | XMS_ITS | Encounter Summary ---
Author Organization [employer] [facility] Address [address] [place] [address] 7t [place] [address] Care Team Providers Care Sap Ppm Consultant Name Role Phone Marycarmen Quijano MD Primary Care Provider [phone] Reason for Visit * Reason Comments Med Refill Encounter Details Date Type Department Care Team ([facility] Contact Info) Description 02/06/2023 Refill [facility] MEDICINE [address] [place] [address] Marycarmen Quijano MD [address] [place] [address] Social History Tobacco Use Types Packs/Day Years [...] Upcoming Encounters Date Type Department Care Team ([facility] Contact Info) Description 01/28/2026 1:30 PM EDT Office Visit [facility] ADULT DENTAL [address] [place] [address] RadhaJohana [address] [place] [address] documented as of this encounter Visit Diagnoses Not on filedocumented in this encounter Care Teams Sap Ppm Consultant Relationship Specialty Start Date End Date Marycarmen Quijano MD [address] [place] [address] PCP - General Family Medicine 03/02/23 06/20/23 documented as of this encounter
--- OUTSIDE RECORDS SUMMARY | 2025-08-09 13:05 | XMS_ITS | Encounter Summary ---
Author Organization [employer] Address [address] [place] [address] 7t [place] [address] Care Team Providers Care Cable Worker Helper Name Role Phone Marycarmen Quijano MD Primary Care Provider [phone] Reason for Visit * Reason Comments Med Refill Encounter Details Date Type Department Care Team ([facility] Contact Info) Description 03/10/2023 Refill [facility] CH[facility] MED & PEDS [address] [place], [place] [phone] Marycarmen Quijano MD [address] [place] [address] Primary hypertension Social History Tobacco Use Types [...] Upcoming Encounters Date Type Department Care Team ([facility] Contact Info) Description 01/28/2026 1:30 PM EDT Office Visit [facility] ADULT DENTAL [address] [place] [address] Santos Garciaaris [address] [place] [address] documented as of this encounter Visit Diagnoses Diagnosis Primary hypertension Unspecified essential hypertension documented in this encounter Care Teams Cable Worker Helper Relationship Specialty Start Date End Date Marycarmen Quijano MD [address] [place] [address] PCP - General Family Medicine 03/02/23 06/20/23 documented as of this encounter
--- OUTSIDE RECORDS SUMMARY | 2025-08-09 13:05 | XMS_ITS | Encounter Summary ---
Author Organization [employer] Address [address] [place] [address] 7t [place] [address] Care Team Providers Care Stock Turner Name Role Phone Marycarmen Quijano MD Primary Care Provider Reason for Visit * Reason Comments Med Refill Encounter Details Date Type Department Care Team ([facility] Contact Info) Description 03/03/2023 Refill [facility] CH[facility] MED & PEDS [address] [place], [place] [phone] Marycarmen Quijano MD [address] [place] [address] Primary hypertension Social History Tobacco Use Types [...] Team ([facility] Contact Info) Description 01/28/2026 1:30 PM EDT Office Visit [facility] ADULT DENTAL [address] [place] [address] RadhaJohana [address] [place] [address] documented as of this encounter Visit Diagnoses Diagnosis Primary hypertension Unspecified essential hypertension documented in this encounter Care Teams Stock Turner Relationship Specialty Start Date End Date Marycarmen Quijano MD [address] [place] [address] PCP - General Family Medicine 03/02/23 06/20/23 documented as of this encounter
--- OUTSIDE RECORDS SUMMARY | 2025-08-09 13:05 | XMS_ITS | Encounter Summary ---
Author Organization [employer] [facility] Address [address] [place] [address] 7t [place] [address] Care Team Providers Care Servicer Name Role Phone Marycarmen Quijano MD Primary Care Provider [phone] Reason for Visit * Reason Comments Med Refill Encounter Details Date Type Department Care Team ([facility] Contact Info) Description 04/04/2023 Refill [facility] MEDICINE [address] [place] [address] Marycarmen Quijano MD [address] [place] [address] Social History Tobacco Use Types Packs/Day Years [...] Description 01/28/2026 1:30 PM EDT Office Visit [facility] ADULT DENTAL [address] [place] [address] RadhaJohana [address] [place] [address] documented as of this encounter Visit Diagnoses Not on filedocumented in this encounter Care Teams Servicer Relationship Specialty Start Date End Date Marycarmen Quijano MD [address] [place] [address] PCP - General Family Medicine 03/02/23 06/20/23 documented as of this encounter
--- OUTSIDE RECORDS SUMMARY | 2025-08-09 13:05 | XMS_ITS | Encounter Summary ---
Author Organization [employer] Address [address] [facility] 7t [place] [address] Care Team Providers Care Flake Drier Name Role Phone Marycarmen Quijano MD Primary Care Provider [phone] Reason for Visit * Reason Comments Med Refill Encounter Details Date Type Department Care Team ([facility] Contact Info) Description 04/12/2023 Refill [facility] [address] [place] [address] Jose Johnson MD [address] [place] [address] Social History Tobacco Use Types Packs/Day Years [...] Team ([facility] Contact Info) Description 01/28/2026 1:30 PM EDT Office Visit [facility] ADULT DENTAL [address] [place] [address] RadhaJohana [address] [place] [address] documented as of this encounter Visit Diagnoses Not on filedocumented in this encounter Care Teams Flake Drier Relationship Specialty Start Date End Date Marycarmen Quijano MD [address] [place] [address] PCP - General Family Medicine 03/02/23 06/20/23 documented as of this encounter
--- OUTSIDE RECORDS SUMMARY | 2025-08-09 13:05 | XMS_ITS | Encounter Summary ---
Author Organization [employer] [facility] Address [address] [place] [address] 7t [place] [address] Care Team Providers Care Garage Construction Equipment Mechanic Name Role Phone Unavailable Primary Care Provider Unavailabl e Reason for Visit * Reason Comments Med Refill Encounter Details Date Type Department Care Team (Late Contact Info) Description 01/19/2024 Refill [facility] MEDICINE [address] [place] [address] Christianne John MD [address] [place] [address] Vitamin deficiency Social History Tobacco Use Types [...] Description 01/28/2026 1:30 PM EDT Office Visit [facility] ADULT DENTAL [address] [place] [address] Santos Garciaaris [address] [place] [address] documented as of this encounter Visit Diagnoses Diagnosis Vitamin deficiency Unspecified vitamin deficiency documented in this encounter
--- OUTSIDE RECORDS SUMMARY | 2025-08-09 13:05 | XMS_ITS | Encounter Summary ---
Author Organization [employer] [facility] Address [address] [place] [address] 7t [place] [address] Care Team Providers Care Research Scientist Name Role Phone Marycarmen Quijano MD Primary Care Provider [phone] Marycarmen Quijano MD Primary Care Provider [phone] Encounter Details Date Type Department Care Team [...] [facility] [address] [place] [address] Radha, Johana [address] [place] [address] documented as of this encounter Visit Diagnoses Not on filedocumented in this encounter Care Teams Research Scientist Relationship Specialty Start Date End Date Marycarmen Quijano MD [address] [place] [address] PCP - General Family Medicine 07/26/13 02/01/23 Marycarmen Quijano MD [address] [place] [address] PCP - General Family Medicine 03/02/23 06/20/23 documented as of this encounter
--- OUTSIDE RECORDS SUMMARY | 2025-08-09 13:06 | XMS_ITS | Encounter Summary ---
Author Organization [employer] [facility] Address [address] [place] [address] [address]t h [address] [facility] [address] Care Team Providers Care Sword Swallower Name Role Phone Marycarmen Quijano MD Primary Care Provider [phone] Reason for Visit * Reason Comments Med Refill Encounter Details Date Type Department Care Team ([facility] Contact Info) Description 04/15/2023 Refill [facility] MEDICINE [address] [place] [address] Marycarmen Quijano MD [address] [place] [address] Social History Tobacco Use Types Packs/Day Years [...] Upcoming Encounters Date Type Department Care Team ([facility] Contact Info) Description 01/28/2026 1:30 PM EDT Office Visit [facility] ADULT DENTAL [address] [place] [address] RadhaJohana [address] [place] [address] documented as of this encounter Visit Diagnoses Not on filedocumented in this encounter Care Teams Sword Swallower Relationship Specialty Start Date End Date Marycarmen Quijano MD [address] [place] [address] PCP - General Family Medicine 03/02/23 06/20/23 documented as of this encounter
--- OUTSIDE RECORDS SUMMARY | 2025-08-09 13:06 | XMS_ITS | Encounter Summary ---
Author Organization [employer] [facility] Address [address] [place] [address] 7t [place] [address] Care Team Providers Care Celery Wrapper Name Role Phone Unavailable Primary Care Provider Unavailabl e Reason for Visit * Reason Comments Med Refill Encounter Details Date Type Department Care Team (Late st Contact Info) Description 11/24/2023 Refill [facility] MEDICINE [address] [place] [address] Christianne John MD [address] [place] [address] Moderate persistent asthma, unspecified whether complicated Social [...] Description 01/28/2026 1:30 PM EDT Office Visit [facility] ADULT DENTAL [address] [place] [address] Radha, Johana [address] [place] [address] documented as of this encounter Visit Diagnoses Diagnosis Moderate persistent asthma, unspecified whether complicated documented in this encounter
--- OUTSIDE RECORDS SUMMARY | 2025-08-09 13:06 | XMS_ITS | Encounter Summary ---
Author Organization [employer] [facility] Address [address] [place] [address] 7t [place] [address] Care Team Providers Care Spanish Translator Name Role Phone Unavailable Primary Care Provider Unavailabl e Reason for Visit * Reason Comments Med Refill Encounter Details Date Type Department Care Team (Late st Contact Info) Description 11/29/2023 Refill [facility] MEDICINE [address] [place] [address] Christianne John MD [address] [place] [address] Moderate persistent asthma, unspecified whether complicated Social [...] [facility] ADULT DENTAL [address] [place] [address] Radha, Johana [address] [place] [address] documented as of this encounter Visit Diagnoses Diagnosis Moderate persistent asthma, unspecified whether complicated documented in this encounter
--- OUTSIDE RECORDS SUMMARY | 2025-08-09 13:06 | XMS_ITS | Encounter Summary ---
Author Organization [employer] [facility] Address [address] [place] [address] 7t [place] [address] Care Team Providers Care Water Use Inspector Name Role Phone Unavailable Primary Care Provider Unavailabl e Reason for Visit * Reason Comments Med Refill Encounter Details Date Type Department Care Team (Late st Contact Info) Description 12/01/2023 Refill [facility] MEDICINE [address] [place] [address] Christianne John MD [address] [place] [address] Moderate persistent asthma, unspecified whether complicated Social [...] Description 01/28/2026 1:30 PM EDT Office Visit [facility] ADULT DENTAL [address] [place] [address] Radha, Johana [address] [place] [address] documented as of this encounter Visit Diagnoses Diagnosis Moderate persistent asthma, unspecified whether complicated documented in this encounter
--- OUTSIDE RECORDS SUMMARY | 2025-08-09 13:06 | XMS_ITS | Encounter Summary ---
Author Organization [facility] Address [address] [place] [address] 7t [place] [address] Care Team Providers Care Automatic Bandsaw Tender Name Role Phone Unavailable Primary Care Provider Unavailabl e Reason for Visit * Reason Comments Med Refill Encounter Details Date Type Department Care Team (Late st Contact Info) Description 12/02/2023 Refill [facility] MEDICINE [address] [place] [address] Christianne John MD [address] [place] [address] Moderate persistent asthma, unspecified whether complicated Social [...] Description 01/28/2026 1:30 PM EDT Office Visit [facility] ADULT DENTAL [address] [place] [address] Radha, Johana [address] [place] [address] documented as of this encounter Visit Diagnoses Diagnosis Moderate persistent asthma, unspecified whether complicated documented in this encounter
== END 2025-08-09 11:48 | disposition home or self-care (01) ==
LOC: HO.HWS 10:48
PROVIDERS: PCP Internal Medicine; Visit Provider Advanced Practice Midwife
DX: Z01.419 Encounter for gynecological examination (general) (routine) without abnormal findings (principal); R10.22 Pelvic and perineal pain left side; R22.2 Localized swelling, mass and lump, trunk
CPT/HCPCS: 99212; 99397; 99459

== ENCOUNTER 2025-08-09 10:47 | Outpatient (REF) | payer OTHER, SELFPAY ==
--- OUTSIDE RECORDS SUMMARY | 2025-08-09 14:32 | XMS_ITS | Data Portability ---
Author Organization [employer] [facility], [facility] Address [address] [place] [address] Care Team Providers Care Community Health Nurse Supervisor Name Role Phone HIM CCA OTHER Assessment Encounter Date Assessment Date Assessment LastModified by Organization Details LastModified Time 04/08/2023 04/08/2023 77 YOF with CHF, COPD recent hospitalization being seen for report of low 02 sat at home in the 80s, On math and science instructor exam sat 91% on 2L pt in [...] follow up w pcp in 1 week [email or web address] Not available 09/18/2024 20:08:58 Plan of Treatment Reminders Order Date Submit Date Provider Last Modified By Organization Details Last Modified Time Details Appointments None recorded. Lab rapid SARS CoV 2 Ag, QL IA, respiratory specimen 2023 024 [facility], [address] [place] [address], [id number] 4 09:06:35 rapid flu (A+B) 2023 024 [facility], [facility], [address] [place] [address], [id number] 4 09:06:54 CBC w/ auto diff 2021 022 [facility] (Centralized Electronic Ordering - All Locations), Patient Can Go To The Location Of Their Choice, [id number] 2 00:05:50 CMP, serum or plasma 2021 [facility] (Centralized Electronic Ordering - All Locations), Patient Can Go To The Location Of Their Choice, [address] 19:37:00 unlisted lab - urinalysis w/reflex culture 2021 [facility] (Centralized Electronic Ordering - All Locations), Patient Can Go To The Location Of Their Choice, [address] 01:53:39 cmp, whole blood + gloria 2021 [email or web address], [address] [place] [address], [id number] 2 16:24:03 urinalysis, dipstick 2021 [email or web address] [address] [place] [address], [id number] 16:24:43 Referral None recorded. Procedures None recorded. Surgeries None recorded. Imaging None recorded. Medication Orders prednisone 10 mg tablet 2023 [facility], [address] [place] [address], [id number], 4 12:30:23 azithromyci n 250 mg tablet 2023 024 [facility], [address] [place] [address], [id number], 4 12:30:23 azithromyci n 250 mg tablet 2023 024 [email or web address] [facility], [address] [place] [address], [id number], 4 20:08:15 prednisone 20 mg tablet 2023 024 [email or web address] [facility], [address] [place] [address], [id number], 4 20:08:15 ipratropium 0.5 mg-albutero l 3 mg (2.5 mg base)/3 mL nebulizatio n soln 2023 024 [facility], [address] [place] [address], [id number], 20:08:15 Patient TargetsNo targets recorded. Patient InstructionsNo [...] Leukocytes neg Not Available Main - [facility] [address] [place] [address], [id number] 02/16/2022 16:23:39 02/17/20 22 02/16/2022 urina lysis , dipst ick Nitrite negati ve Not Available Main - [facility] [address] [place] [address], [id number] 02/16/2022 16:23:39 02/17/20 22 02/16/2022 urina lysis , dipst ick Protein 4+ Not Available Main - [facility] [address], [id number] 02/16/2022 16:23:39 02/17/20 22 02/16/2022 urina lysis , dipst ick Ketone 2+ Not Available Main - [facility] [address], [address] 02/16/2022 16:23:39 02/17/20 22 02/16/2022 urina lysis , dipst ick Glucose negati ve Not Available Main - [facility] [address] [place] [address], [id number] 02/16/2022 16:23:39 02/17/20 22 02/16/2022 cmp, whole blood + picco lo ALB 2.8 Not Available Main - [facility] [address], [address] 02/16/2022 16:22:48 02/17/20 22 02/16/2022 cmp, whole blood + picco lo ALP 114 Not Available Main - [facility] [address], [address] 02/16/2022 16:22:48 02/17/20 22 02/16/2022 cmp, whole blood + picco lo ALT 12 Not Available Main - [facility] [address], [address] 02/16/2022 16:22:48 02/17/20 22 02/16/2022 cmp, whole blood + picco lo AST 18 Not Available Main - [facility] [address], [address] 02/16/2022 16:22:48 02/17/20 22 02/16/2022 cmp, whole blood + picco lo BUN 17 Not Available Main - [facility] [address], [address] 02/16/2022 16:22:48 02/17/20 22 02/16/2022 cmp, whole blood + picco lo Ca 9.8 Not Available Main - [facility] [address], [address] 02/16/2022 16:22:48 02/17/20 22 02/16/2022 cmp, whole blood + picco lo CI- normal Not Available Main - [facility] [address], [address] 02/16/2022 16:22:48 02/17/20 22 02/16/2022 cmp, whole blood + picco lo CRE 1.3 Not Available Main - [facility] [address], [address] 02/16/2022 16:22:48 02/17/20 22 02/16/2022 cmp, whole blood + picco lo GLU 326 Not Available Main - [facility] [address], [address] 02/16/2022 16:22:48 02/17/20 22 02/16/2022 cmp, whole blood + picco lo K+ 3.8 Not Available Main - [facility] [address], [address] 02/16/2022 16:22:48 02/17/20 22 02/16/2022 cmp, whole blood + picco lo Na+ 138 Not Available Main - [facility] [address], [address] 02/16/2022 16:22:48 02/17/20 22 02/16/2022 cmp, whole blood + picco lo tCO2 27 Not Available Main - [facility] [address], [address] 02/16/2022 16:22:48 Result Notes None recorded. Medical Equipment None Reported. Allergies Allergen ID Allergen Name Allergen Category Reaction Reaction Severity Criticality Documentation Date Start Date Code Code System Note Provider Name and Address Organization Details Recorded Time 24986 Motrin medicatio n Not available Not available Not available 09/18/202448828 8 RxNorm Not Available [facility] - production 4 15:17:42 03690 acetamino phen / oxycodone medicatio n Not available Not available Not available 09/18/2024 72096 3 RxNorm Not Available [facility] - production 4 15:17:42 19224 tramadol medicatio n Not available Not available Not available 09/18/2024 62389 RxNorm Not Available [employer] - production 4 15:17:42 Medications Name Sig [...] Not Available No t Available Dexcom G7 Quilting Machine Helper USE DIRECTED active Not Available Not Available [...] % 99 % 98.9 [degF] Not Available [facility] [employer] 2 14:54:34 Date Recorded Body weight Respiratory rate Systolic And Diastolic Systolic And Diastolic Provider Name and Address Organization Details Last Updated DateTime 02/16/2022 72423.24 g 20 /min 164/63 mm[Hg] 164/63 mm[Hg] Not Available [facility] [employer] 2 14:54:34 Date Recorded Body temperature Heart [...] [degF] 16 /min 137/76 mm[Hg] Not Available [facility] - production 4 20:04:27 Social History None [...] Codes Diagnosis Note 1594 Hanane Mena MD [facility] - [address] [phone] 02/16/2022 14:13:00 05/29/2022 14:46:24 Acute low back pain 911519859 M54.50 Pt p/w 5 days of atraumatic [...] no improvemen t in pain consider imagingPer math and science instructor, requestor asked for CBC w/ diff and CMP (not acknowledg ed in [facility] portal) but no orders placed. Reasonable to check CBC w/ diff and CMP thus orders placed. Ketonuria 935422694 R82. 4 Pt with 2+ urinary ketones [...] and call PCP if FSG > 350. [id number] Damien Alfredo MD Main - [facility] [address] [place] [phone] 04/08/2023 16:22:43 04/08/2023 23:08:09 Hypoxia 068943771 R09.02 45840 Wander Smith MD Main - [facility] [address] [place] [phone] 09/18/2024 20:04:23 09/18/2024 21:06:53 Acute exacerbation of chronic obstructive pulmonary disease 269256456 J44.1 Health Concerns Section Related Observation LastModified by Organization Detai ls LastModified Time None Recorded Concern Status LastModified by Organization Details LastModified Time None Recorded Advance Directives Directive None Recorded Payers Insurance Date Sequence Insurance Name Policy Number Policy Rendon Covered Member ID Rendon Member ID Guarantor Name 04/08/2023 1 [facility] - DOS PRIOR TO 2023 - DUAL ELIGIBLE (MEDICARE REPLACEMENT/AD VANTAGE - HMO) Katherine Griffith [id number] Katherine Griffith 09/18/2024 1 [facility] - DOS ON OR AFTER 2023 - DUAL ELIGIBLE - [facility] OPTIONS AND ONE CARE (MEDICARE REPLACEMENT/AD VANTAGE - HMO) Katherine Griffith [id number] Katherine Griffith Notes Date Note Type Note [...] .................... .................... .................... .................... .................... .................... . Ostomy Rn Note: Patient is a 76 year old [...] seen by urologist last month according to care manager cna, kidney function was good. Urine sample obtained [...] todays visit. Dr. Mena recommended blood work. Ostomy Rn Sara Davis was dispatched for procedure. See math and science instructor Sara Davis run report for further patient [...] liner which suggests h Hanane Mena MD [address] [place] [address],[address], [place], [address], [place] 02/16/2022 16:24:46 04/08/2023 text/html CRC Nursing Assessment: [...] on behalf of member with request for CTH for eval increased SOB and decreased oxygen levels. Daughter states member talking in full sentences with no acute distress. Daughter could not provide further information. Discuss if symptoms progress to seek emergent care.-verbalize understanding. Verify member name/- Damien Alfredo MD [address] [facility],[address], [place], [address], [place] 04/08/2023 16:28:34 09/18/2024 text/html CRC Nurse Triage [...] s/s and seek emergency treatment if needed. Ostomy Rn Organization Information for [facility] Business Legal Name: [facility] Transportation Address: [address] [place] [address], [place] [address], Police Officer: Louis Stockton MD CLIA No.: [id number] Ostomy Rn POC Test Results from [facility] Rapid COVID antigen (20:02:29) COVID: - Rapid influenza antigen (20:02:30) Flu: - Wander Smith MD [address] [place] [address],[address], [place], [address], [facility] [employer] 09/18/2024 21:05:29 OBGyn Episode No OBEpisode recorded.
[2025-08-09 15:16] LABS: Appearance Urine Clear; Glucose Urine UA 100 mg/dL (Negative); PH 6.5 (5.0-9.0); Specific Gravity - Urine 1.015 (1.005-1.025); UMIC TRIGGER UA YES
[2025-08-09 16:21] LABS: Bacterial Vaginosis PCR NEGATIVE (Negative); Candida Group PCR NOT DETECTED (Not Detect); Candida glab krusei PCR NOT DETECTED (Not Detect); Trichomonas vaginalis PCR NOT DETECTED (Not Detect)
[2025-08-09 16:55] LABS: CT PCR NOT DETECTED (Not Detect.); NG PCR NOT DETECTED (Not Detect.)
== END 2025-08-09 10:48 | disposition home or self-care (01) ==
LOC: HO.LNP 10:47
PROVIDERS: PCP Internal Medicine; Visit Provider Advanced Practice Midwife
DX: Z01.419 Encounter for gynecological examination (general) (routine) without abnormal findings (principal); R10.20 Pelvic and perineal pain unspecified side; R22.2 Localized swelling, mass and lump, trunk; Z20.2 Contact with and (suspected) exposure to infections with a predominantly sexual mode of transmission; Z79.82 Long term (current) use of aspirin; Z98.51 Tubal ligation status
CPT/HCPCS: 81001; 81003; 81515; 87491; 87591; 99212; 99397

== ENCOUNTER → 2025-08-22 09:02 | Outpatient (REF) | payer OTHER, SELFPAY ==
--- OUTSIDE RECORDS SUMMARY | 2024-03-31 04:30 | XMS_ITS ---
Author Organization [facility] Address [address] [place] [address] Care Team Providers Care Cardiology Specialist Name Role Phone Jaime VORA, Shelby Primary Care Provider Unavail Randy Marshall Unavailable [phone] REASON FOR VISIT Seen Sooner Encounters Encounter Location Date Provider Diagnosis [facility] [address] [place] [address] 03/31/2024 Randy Leal Plan Of Treatment Next Appt Details Provider Name:Randy Leal , 11/20/2025 03:00:00 PM, [address] [place], [address], Progress Notes * ERMELINDAKatherine SORIADOB: 5 (80 yo F)Acc No.[id number]:03/31/2024 Progress Notes Patient: Katherine FARMER Provider: Adelina Leal DPM :1945 A ge:78 Y S ex:Female Date:03/31/2024 Address:[address] [place], [place] [id number] Pcp:Shelby Sandoval MD Subjective: * Chief Complaints: [...] DPM Date: 0 03/31/2024 Generated for Herber Guzman on: 1 10/22/2024 04:53 PM EST
--- OUTSIDE RECORDS SUMMARY | 2024-09-19 05:00 | XMS_ITS ---
Author Organization [facility] Address [address] [place] [address] Care Team Providers Care Light Air Defense Artillery Crewmember Name Role Phone Jaime VORA, Shelby Primary Care Provider Unavail Randy Marshall Unavailable [phone] Encounters Encounter Location Date Provider Diagnosis [address] [address] 09/19/2024 Randy Leal Plan Of Treatment Next Appt Details Provider Name:Randy Leal , 11/20/2025 03:00:00 PM, [address] [place], [address], Progress Notes * MICAELAKatherine BashirDOB: 5 (80 yo F)Acc No.[id number]:09/19/2024 Progress Note Patient: Katherine FARMER Provider: Adelina Leal DPM :1945 A ge:79 Y S ex:Female Date:09/19/2024 Address:[address] [place], [place] [id number] Pcp:Shelby Sandoval MD Subjective: * Chief Complaints: [...] Leal DPM Date: 11/20/2023 Generated for Herber olea/Rolando/Emely on: 10/22/2024 04:52 PM EST
--- OUTSIDE RECORDS SUMMARY | 2025-03-27 04:30 | XMS_ITS ---
Author Organization [facility] Address [address] [place] [address] Care Team Providers Care Label Fuser Tender Name Role Phone Jaime VORA, Shelby Primary Care Provider Unavail Randy Marshall Unavailable [phone] Encounters Encounter Location Date Provider Diagnosis [address] [address] 03/27/2025 Randy Leal Plan Of Treatment Next Appt Details Provider Name:Randy Leal , 11/20/2025 03:00:00 PM, [address] [place], [address], Progress Notes * MICAELAKatherine BashirDOB: 5 (80 yo F)Acc No.[id number]:03/27/2025 Progress Note Patient: Katherine FARMER Provider: Adelina Leal DPM :1945 A ge:79 Y S ex:Female Date:03/27/2025 Address:[address] [place], [place] [id number] Pcp:Shelby Sandoval MD Subjective: * Chief Complaints: [...] 03/27/2025 Generated for Herber olea/Rolando/Emely on: 1 10/22/2024 04:52 PM EST
--- NOTE | ~2025-08-22 | US_ITS ---
EXAMINATION: US PELVIS TRANSABDOMINAL AND TRANSVAGINAL HISTORY: R10.2 - Pelvic and perineal pain COMPARISON: Pelvic ultrasound 04/23/2021 TECHNIQUE: Transabdominal and transvaginal imaging was performed. FINDINGS: LMP: Postmenopausal Uterus is retroverted and anteflexed , measuring 5 x 1.5 x 2.4 cm. No focal uterine lesion. Echogenic foci with posterior acoustic shadowing raising possibility of foci of calcifications. Endometrial thickness: Endometrial is not well seen. Questionable partially visualized endometrium measuring 1 mm. Bilateral ovaries not visualized. No free fluid in the cul-de-sac. Body habitus, bowel gas limiting evaluation. US/US pelvic and transvaginal IMPRESSION: Limited examination. Echogenic uterine foci with posterior acoustic shadowing, question foci of calcifications The endometrium is not well visualized. Bilateral ovaries are not utilized. Consider follow-up ultrasound. Electronically signed by: Rafi Schwarz MD 08/22/2025 02:50 PM EST
--- NOTE | ~2025-08-22 | NM_ITS ---
Lexiscan Myocardial perfusion study Indication: Chest pain Technique: The patient was brought in for a Lexiscan perfusion study on 08/22/2025 and was injected 0.4 mg of Lexiscan intravenously. Within a minute of this injection 30 mCi of sestamibi was given intravenously. Images were obtained using the SPECT gamma camera interlaced with the gating device. Images were obtained in supine position. Resting perfusion study was performed on 08/24/2025. Patient was administered 30 mCi of sestamibi intravenously at rest. Images were then obtained in supine position. Total DLP 116 mGy-cm. Images were processed with the software and compared side to side in short axis, horizontal long axis and vertical long axis views. Findings: Raw aquisition reviewed. The stress perfusion study showed no significant perfusion abnormality. Both uncorrected as well as CT attenuation corrected images were reviewed. The gated study shows low normal LV systolic function with calculated LVEF of 54%, visually normal. LV cavity is normal in size. The gated study shows normal wall thickening and contraction of segments. Resting study shows no significant perfusion abnormality. Gating at rest reveals normal wall motion with ejection fraction at 63%. The findings are consistent with no clear reversible or fixed perfusion normality. NM/NM tarik perf SPECT rest & str Impression: 1. Myocardial perfusion imaging study shows normal myocardial perfusion. 2. Gated LVEF is 54% during stress, visually higher; 63% during rest.. 3. Transient ischemic dilatation not present. EKG component of the test reported separately. Electronically signed by: Johnnie Lee MD 08/26/2025 12:14 PM [facility]
--- NOTE | 2025-08-22 09:05 | CA_ITS ---
Acquisition Time: 2025-08-22 09:40:57 Total Exercise Time: 00:02:00 Test Indications: CP,Dyspnea Medications: SEE EMAR/PRINT OUT Protocol: LEXISCAN Max HR: 96 BPM 68% of Pred: 140 BPM Max BP: 136/68 mmHG Max Work Load: 1.0 METS Pharmacological stress test with Lexiscan while pt swings her legs in chairt, with reports of gassy feeling, no chest pain, without any arrythmias, with normotensive response to injection. Baseline nonspecific ST- T wave abnormality. With ST depression inferolaterally suggestive of ischemia. In recovery, pt feeling back to baseline. ST segment improved. Nuclear images pending. Test reviewed with Dr. Lee. Referred By: Sonny James Electronically Signed By: Mark Morales
--- OUTSIDE RECORDS SUMMARY | 2025-08-22 16:52 | XMS_ITS | Clinical Summary ---
Author Organization [facility] Address [address] [phone] Phone Care Team Providers Care Continuing Education Director Name Role Phone Marycarmen Quijano MD Primary Care Provider [phone] Allergies Active Allergy Reactions Criticality Noted Date [...] day Active ergocalciferol (VITAMIN D-2) 1.25 MG (14467 UT) capsule Take 1 capsule by mouth [...] Orders Only [facility] [address] [phone] Alycia Rios ARNP Stage 3b chronic kidney disease (HCC) (Primary Dx); Persistent proteinuria; Renal osteodystrophy; Hypertensive renal disease 06/27/2025 Refill [facility] [address] [phone] Ariane Sexton Stage 3b chronic kidney disease [...] A1C 8.5(H) <5 % [facility] Comments [facility] Creatinine 1.35(H) 0.70 - 1.30 mg/dl [facility] Potassium 4.5 3.5 - 5.1 mmol/L [facility] Calcium 8.8 8.4 - 10.2 mg/dl PVNMA eGFR Non- 38(L) >60 ml/min PVNMA 09/18/2020 us [facility] [id number] LICITED RESULTS Final Result PVNMA from Last 3 Months or Most Recently Relevant to Health Maintenance Insurance [facility] ([id number]) [facility] ([id number]) Care Teams Continuing Education Director Relationship Specialty Start Date End Date Marycarmen Quijano MD [address] [place] [address] PCP - General 10/14/20
--- OUTSIDE RECORDS SUMMARY | 2025-08-22 16:52 | XMS_ITS | Encounter Summary ---
Author Organization [employer] Address [address] [place] [address] 7t [place] [address] Care Team Providers Care Office Specialist Name Role Phone Marycarmen Quijano MD Primary Care Provider [phone] Reason for Visit * Reason Comments Med Refill Encounter Details Date Type Department Care Team ([facility] Contact Info) Description 03/07/2023 Refill [facility] MED & PEDS [address] [place], [place] [phone] Marycarmen Quijano MD [address] [place], [place] [phone] Social History Tobacco Use Types Packs/Day Years [...] Department Care Team ([facility] Contact Info) Description 01/28/2026 1:30 PM EDT Office Visit [facility] ADULT DENTAL [address] [place] [address] Radha, Johana [address] [place] [address] documented as of this encounter Visit Diagnoses Not on filedocumented in this encounter Care Teams Office Specialist Relationship Specialty Start Date End Date Marycarmen Quijano MD [address] [place] [address] PCP - General Family Medicine 03/02/23 06/20/23 documented as of this encounter
--- OUTSIDE RECORDS SUMMARY | 2025-08-22 16:52 | XMS_ITS | Encounter Summary ---
Author Organization [employer] [facility] Address [address] [place] [address] 7t [place] [address] Care Team Providers Care Machine Sizer Name Role Phone Marycarmen Quijano MD Primary Care Provider [phone] Reason for Visit * Reason Comments Med Refill Encounter Details Date Type Department Care Team ([facility] Contact Info) Description 04/15/2023 Refill [facility] MEDICINE [address] [place] [address] Marycarmen Quijano MD [address] [place] [address] Social History Tobacco Use Types Packs/Day Years [...] Care Team ([facility] Contact Info) Description 01/28/2026 1:30 PM EDT Office Visit [facility] ADULT DENTAL [address] [place] [address] RadhaJohana [address] [place] [address] documented as of this encounter Visit Diagnoses Not on filedocumented in this encounter Care Teams Machine Sizer Relationship Specialty Start Date End Date Marycarmen Quijano MD [address] [place] [address] PCP - General Family Medicine 03/02/23 06/20/23 documented as of this encounter
--- OUTSIDE RECORDS SUMMARY | 2025-08-22 16:52 | XMS_ITS | Encounter Summary ---
Author Organization [employer] Address [address] [place] [address] [address]t [place] [address] Care Team Providers Care Facing Slitter Name Role Phone Marycarmen Quijano MD Primary Care Provider [phone] Reason for Visit * Reason Comments Med Refill Encounter Details Date Type Department Care Team ([facility] Contact Info) Description 03/10/2023 Refill [facility] CH[facility] MED & PEDS [address] [place], [place] [phone] Marycarmen Quijano MD [address] [place] [address] Primary hypertension Social History Tobacco Use Types [...] Upcoming Encounters Date Type Department Care Team ([facility] Contact Info) Description 01/28/2026 1:30 PM EDT Office Visit [facility] ADULT DENTAL [address] [place] [address] Santos Garciaaris [address] [place] [address] documented as of this encounter Visit Diagnoses Diagnosis Primary hypertension Unspecified essential hypertension documented in this encounter Care Teams Facing Slitter Relationship Specialty Start Date End Date Marycarmen Quijano MD [address] [place] [address] PCP - General Family Medicine 03/02/23 06/20/23 documented as of this encounter
--- OUTSIDE RECORDS SUMMARY | 2025-08-22 16:52 | XMS_ITS | Encounter Summary ---
Author Organization [employer] Address [address] [facility] [address]t [place] [address] Care Team Providers Care Circus Roustabout Name Role Phone Marycarmen Quijano MD Primary Care Provider [phone] Reason for Visit * Reason Comments Med Refill Encounter Details Date Type Department Care Team ([facility] Contact Info) Description 04/12/2023 Refill [facility] [address] [place] [address] Jose Johnson MD [address] [place] [address] Social History Tobacco Use Types Packs/Day Years [...] Upcoming Encounters Date Type Department Care Team ([facility] Contact Info) Description 01/28/2026 1:30 PM EDT Office Visit [facility] ADULT DENTAL [address] [place] [address] RadhaJohana [address] [place] [address] documented as of this encounter Visit Diagnoses Not on filedocumented in this encounter Care Teams Circus Roustabout Relationship Specialty Start Date End Date Marycarmen Quijano MD [address] [place] [address] PCP - General Family Medicine 03/02/23 06/20/23 documented as of this encounter
--- OUTSIDE RECORDS SUMMARY | 2025-08-22 16:52 | XMS_ITS | Encounter Summary ---
Author Organization [employer] [facility] Address [address] [place] [address] 7t [place] [address] Care Team Providers Care Ticket Clerk Name Role Phone Marycarmen Quijano MD Primary Care Provider [phone] Reason for Visit * Reason Comments Med Refill Encounter Details Date Type Department Care Team ([facility] Contact Info) Description 04/04/2023 Refill [facility] MED[facility] [address] [place] [address] Marycarmen Quijano MD [address] [place] [address] Social History Tobacco Use Types Packs/Day Years [...] Upcoming Encounters Date Type Department Care Team ([facility] Contact Info) Description 01/28/2026 1:30 PM EDT Office Visit [facility] ADULT DENTAL [address] [place] [address] RadhaJohana [address] [place] [address] documented as of this encounter Visit Diagnoses Not on filedocumented in this encounter Care Teams Ticket Clerk Relationship Specialty Start Date End Date Marycarmen Quijano MD [address] [place] [address] PCP - General Family Medicine 03/02/23 06/20/23 documented as of this encounter
--- OUTSIDE RECORDS SUMMARY | 2025-08-22 16:52 | XMS_ITS | Encounter Summary ---
Author Organization [employer] [facility] Address [address] [place] [address] [address]t [place] [address] Care Team Providers Care Youth Development Specialist Name Role Phone Marycarmen Quijano MD Primary Care Provider [phone] Reason for Visit * Reason Comments Med Refill Encounter Details Date Type Department Care Team ([facility] Contact Info) Description 02/06/2023 Refill [facility] MEDICINE [address] [place] [address] Marycarmen Quijano MD [address] [place] [address] Social History Tobacco Use Types Packs/Day Years [...] Care Team ([facility] Contact Info) Description 01/28/2026 1:30 PM EDT Office Visit [facility] ADULT DENTAL [address] [place] [address] RadhaJohana [address] [place] [address] documented as of this encounter Visit Diagnoses Not on filedocumented in this encounter Care Teams Youth Development Specialist Relationship Specialty Start Date End Date Marycarmen Quijano MD [address] [place] [address] PCP - General Family Medicine 03/02/23 06/20/23 documented as of this encounter
--- OUTSIDE RECORDS SUMMARY | 2025-08-22 16:52 | XMS_ITS | Encounter Summary ---
Author Organization [employer] Address [address] [place] [address] 7t [place] [address] Care Team Providers Care First Mate Name Role Phone Marycarmen Quijano MD Primary Care Provider [phone] Reason for Visit * Reason Comments Med Refill Encounter Details Date Type Department Care Team ([facility] Contact Info) Description 03/03/2023 Refill [facility] MED & PEDS [address] [place], [place] [phone] Marycarmen Quijano MD [address] [place] [address] Primary hypertension Social History Tobacco Use Types [...] [facility] Contact Info) Description 01/28/2026 1:30 PM EDT Office Visit [facility] ADULT DENTAL [address] [place] [address] RadhaJohana [address] [place] [address] documented as of this encounter Visit Diagnoses Diagnosis Primary hypertension Unspecified essential hypertension documented in this encounter Care Teams First Mate Relationship Specialty Start Date End Date Marycarmen Quijano MD [address] [place] [address] PCP - General Family Medicine 03/02/23 06/20/23 documented as of this encounter
--- OUTSIDE RECORDS SUMMARY | 2025-08-22 16:52 | XMS_ITS | Patient Health Record ---
Author Organization [facility] Address [address] [place] [address] Care Team Providers Care Senior Analytical Chemist Name Role Phone Jaime VORA, Shelby Primary Care Provider Unavail able Randy Leal Unavailable [phone] Allergies Allergen (clinical drug ingredient) Drug/Non Drug [...] Problem Acquired hammer toe of right foot (6563503071665460 ) Other hammer toe(s) (acquired), right foot (M20.41) Active confirmed Problem Acquired hammer toe of left foot (0248651558526724 ) Other hammer toe(s) (acquired), left foot (M20.42) Active confirmed Problem Polyneuropathy due to type 2 diabetes mellitus (755108631) Type 2 diabetes mellitus with diabetic polyneuropathy (E11.42) Active confirmed Vital Signs Blood pressure diastolic 65 mm Hg 07/24/2025 Height 4 ft 9 in in 07/24/2025 Blood pressure systolic 130 mm Hg 07/24/2025 Weight 182 lbs 07/24/2025 BMI 39.38 kg/m2 07/24/2025 Procedures Procedure Date Ordered Date Performed Result Body Sit e 07428-QTHQXSN NAIL, 6 OR MORE 12/26/2024 N/A 50589-Unrrrajh Plate 12/26/2024 N/A 32705-CYTU SKIN LESIONS, 2 TO 4 12/26/2024 N/A 44104-FWDKQHB NAIL, 6 OR MORE 04/24/2025 N/A 77813-ZGWN SKIN LESIONS, 2 TO 4 04/24/2025 N/A 36540-KZQLDGZ NAIL, 6 OR MORE 07/24/2025 N/A 14452-WHEF SKIN LESIONS, 2 TO 4 07/24/2025 N/A Encounters Encounter Location Date Provider Diagnosis [address] [address] 12/26/2024 Randy Leal Type 2 diabetes mellitus with diabetic polyneuropathy E11.42 ; Tinea unguium B35.1 ; Other hammer toe(s) (acquired), right foot M20.41 ; Other hammer toe(s) (acquired), left foot M20.42 and Subungual hematoma of left foot, initial encounter S90.222A [address] [address] 04/24/2025 Randy Leal Type 2 diabetes mellitus with diabetic polyneuropathy E11.42 ; Tinea unguium B35.1 and Xerosis of skin L85.[address] [address] 07/24/2025 Randy Leal Type 2 diabetes mellitus with diabetic polyneuropathy E11.42 ; Tinea unguium B35.1 and Xerosis of skin L85.[address] [address] 09/19/2024 Randy Leal [address] [address] 12/26/2024 Randy Leal [address] [address] 03/27/2025 Randy Leal Assessments Encounter Date Diagnosis [...] Treatment Pending Test Test Name Order Date 36741-NYRIEKY NAIL, 6 OR MORE 03/17/2024 68962-NDSSOTM NAIL, 6 OR MORE 06/16/2024 61032-PDSACQN NAIL, 6 OR MORE 12/26/2024 79001-NCCZQZF NAIL, 6 OR MORE 04/24/2025 44982-WPZOQGH NAIL, 6 OR MORE 07/24/2025 80061-Jxyiybnk Plate 12/26/2024 95343-GMUB SKIN LESIONS, 2 TO 4 07/24/20 25 05926-XDKI SKIN LESIONS, 2 TO 4 04/24/20 25 83071-IPXR SKIN LESIONS, 2 TO 4 12/27/19 25 22854-HKYK SKIN LESIONS, 2 TO 4 06/16/20 24 00408-NJEF SKIN LESIONS, 2 TO 4 03/17/20 24 Next Appt Details Provider Name:Randy Leal , 11/20/2025 03:00:00 PM, [address] [place] [address], [phone], Insurance Providers Payer Name Payer Address Payer Phone Subscriber Number Group Number Insured Name Patient Relationship to Insured Coverage Start Date Coverage End Date [facility] [employer] Claims [address] [place] [id number] Katherine Jamil Self - patient is the insured Medical (General) History Medical History History ICD Code Anxiety Arthritis asthma Back,Hip,and Knee pain CAD (Cholesterol) Cataracts Depression Diabetic Heart disease High blood pressure Kidney disease Lung disease Numbness Poor circulation Reflux ( GERD) sinusitis Vascular phlebitis (clots) Chicken pox Replacement Heart Valves Transfusions Surgical History Surgery Date(Month/Year)
--- OUTSIDE RECORDS SUMMARY | 2025-08-22 16:53 | XMS_ITS | Encounter Summary ---
Author Organization [facility] Address [address] [place] [address] [address] [place] [address] Care Team Providers Care Roll On Worker Name Role Phone Marycarmen Quijano MD Primary Care Provider [phone] Marycarmen Quijano MD Primary Care Provider [phone] Reason for Visit * Reason Comments Med Refill Encounter Details Date Type Department Care Team (Late st Contact Info) Description 11/10/2022 Refill [facility] MEDICINE [address] [place], [place] [phone] Marycarmen Quijano MD [address] [place], [place] [phone] Social History Tobacco Use Types Packs/Day Years [...] [facility] ADULT DENTAL [address] [place], [place] [phone] Radha, Johana [address] [place] [address] documented as of this encounter Visit Diagnoses Not on filedocumented in this encounter Care Teams Roll On Worker Relationship Specialty Start Date End Date Marycarmen Quijano MD [address] [place] [address] PCP - General Family Medicine 07/26/13 02/01/23 Marycarmen Quijano MD [address] [place] [address] PCP - General Family Medicine 03/02/23 06/20/23 documented as of this encounter
--- OUTSIDE RECORDS SUMMARY | 2025-08-22 16:53 | XMS_ITS | Clinical Summary ---
Author Organization [employer] Address [address] [facility] 7t [place] [address] Care Team Providers Care Product Advisor Name Role Phone Unavailable Primary Care Provider [...] BEDTIME 2 Active Blood Glucose Monitoring Suppl (Shiram [employer] [place] Lite) w/Device kit TEST BLOOD SUGAR THREE [...] by mouth at bed time. Active Creon 89061-70471 units capsule 3 Active pantoprazole (ProtoNix) 40 [...] 3 Active ergocalciferol (Vitamin D2) 1.25 MG (40594 UT) capsule TAKE 1 CAPSULE BY MOUTH [...] Description 07/25/2025 10:15 AM EDT Office Visit [facility] [address] [place] [address] Johana Garcia Partially edentulous mandible, unspecified edentulism class (Primary Dx); Localized gingival recession, severe; Dental plaque; Extruded tooth 05/29/2025 1:20 PM EDT Office Visit [facility] [address] [place], [place] [phone] Christianne John MD Diarrhea, unspecified type (Primary Dx) 05/29/2025 Telephone [facility] [address] [place] [phone] Christianne John MD 05/29/2025 Orders Only GENERIC [...] Description 01/28/2026 1:30 PM EDT Office Visit [facility] [address] [place] [address] Radha, Johana [address] [place] [address] Health Maintenance Due Date Last Done Comments [...] 12/01/2021, Additional history exists COVID-19 Vaccine ( - season) 2025 Influenza Vaccine (#1) 2025 , [...] Blood Count 14.5(H) 4.8 - 10.8 X10*3/uL [facility] Red Blood Count 4.98 4.20 - 5.50 X10*6/uL [facility] Hemoglobin 12.4 12.0 - 16.0 g/dl [facility] Hematocrit 38.9 37.0 - 47.0 % [facility] Mean Corpuscular Volume 78.1(L) 80.0 - 98.0 fL [facility] Mean Corpuscular Hemoglobin 24.9(L) 27.0 - 33.0 pg [facility] Mean Corpuscular HGB Conc 31.9 31.0 - 35.0 g/dl [facility] Red Cell Distribution Width 15.6 11.0 - 16.0 % [facility] Platelet Count 417(H) 160 - 400 X10*3/uL [facility] Mean Platelet Volume 9.5 9.4 - 12.3 fL [facility] Neutrophils Percent Auto 76.6(H) 45 - 73 % [facility] Imm Gran Pct Auto 0.4 0.0 - 0.4 % [facility] Lymphocytes Percent Auto 15.5(L) 20 - 40 % [facility] Monocytes Percent Auto 5.5 2 - 11 % [facility] Eosinophils Percent Auto 1.5 0 - 4 % [facility] Basophils Percent Auto 0.5 0 - 2 % [facility] NRBC Pct Auto 0.0 0.0 - 0.2 /100WBC [facility] Neutrophils Absolute Auto 11.1(H) 2.0 - 8.3 x10*3/uL [facility] Imm Gran Abs Auto 0.06(H) 0.00 - 0.03 X10*3/uL [facility] Lymphocytes Absolute Auto 2.3 1.2 - 4.9 X10*3/uL [facility] Monocytes Absolute Auto 0.8 0.1 - 1.2 X10*3/uL [facility] Eosinophils Absolute Auto 0.2 0.0 - 0.4 X10*3/uL [facility] Basophils Absolute Auto 0.1 0.0 - 0.2 X10*3/uL [facility] NRBC Abs Auto 0.000 0.0 - 0.012 X10*3/uL [facility] Blood Venous blood specimen / Unknown 05/29/2025 2:12 PM EDT 05/29/2025 3:57 PM EDT us Christianne John MD LAB BLOOD ORDERABLES Final Result [facility] [address] [place] [phone] * (ABNORMAL) C-reactive Protein (05/29/2025 2:12 PM EDT) C Reactive Protein 2.65(H) < or = 0.50 mg/dL [facility] Blood Venous blood specimen / Unknown 05/29/2025 2:12 PM EDT 05/29/2025 3:57 PM EDT us Christianne John MD LAB BLOOD ORDERABLES Final Result Performing Organization Address [facility]/ZIP Co de Phone Number [facility] [address] [place] [phone] * (ABNORMAL) Basic Metabolic Panel (05/29/2025 2:12 PM EDT) Only the most recent of2 resultswithin the time period is included. Pathologist [facility] Sodium 141 135 - 145 mmol/L [facility] Potassium 4.3 3.3 - 5.1 mmol/L [facility] Chloride 107 96 - 108 mmol/L [facility] Carbon Dioxide 24 22 - 29 mmol/L [facility] Anion Gap 14 12 - 20 [facility] Urea Nitrogen (BUN) 20(H) 9 - 16 mg/dL [facility] Creatinine, Serum 1.53(H) 0.5 - 1.4 mg/dL [facility] Estimated Glomerular Filt Rate 33 [facility] Comment:Chronic Kidney Disea se: Estimated GFR < 60 mL/min/1.03c1Hjtmau Kidney Disease: Estimated GFR < 15 mL/min/1.73m2 Glucose 117(H) 60 - 115 mg/dL [facility] Calcium 9.8 8.4 - 10.2 mg/dL [facility] 05/29/2025 2:12 PM EDT 05/29/2025 3:57 PM EDT us Generic External Data Provider LAB BLOOD ORDERAB LES Final Result Performing Organization Address [facility]/ZIP Co de Phone Number [facility] [address] [place] [phone] * POCT Influenza B manually resulted (05/29/2025 2:04 PM EDT) [facility] Rapid Influenza B Ag Negative Negative, Indeterminate QC Media Lot # [id number] Lot# Expiration Date 100,82 Swab 05/29/2025 2:04 PM EDT Christianne John MD POINT OF CARE TEST ENTER/E DIT ORDERABLES Final Result * POCT Influenza A manually resulted (05/29/2025 2:04 PM EDT) [facility] Rapid Influenza A Ag Negative Negative, Indeterminate QC Media Lot # [id number] Lot# Expiration Date 100,82 Swab Nasopharyngeal structure / Unknown 05/29/2025 2:04 PM EDT Christianne John MD POINT OF CARE TEST ENTER/E DIT ORDERABLES Final Result * POCT Rapid COVID Ag (05/29/2025 2:03 PM EDT) [facility] Rapid COVID Ag Negative QC Media Lot # [id number] Lot# Expiration Date ,826 Swab 05/29/2025 2:03 PM EDT Christianne John MD POINT OF CARE TEST ENTER/E DIT ORDERABLES Final Result * HEMOGLOBIN A1C (07/09/2022 10:40 AM EDT) [facility] Estimated Average Glucose 151 mg/dL [facility] Comment: eAG = Estimated average glucose which is %A1C expressed as average glucose, using the formula of the I1C-Anvyaaf Average Glucose study (ADAG), Diabetes Care, Vol.31,#8, [...] [facility] Comment: NOTE: For -[place] individuals, multiply the result by 1.210. Chronic [...] [facility] [address] from Last 3 Months or Most Recently Relevant to Health Maintenance Insurance # 1 [place] [address] [facility] LONG-TERM OPTIONS (HMO D-SNP) [place] [id number] [address] [place] [address] DENTAL - [facility]
--- OUTSIDE RECORDS SUMMARY | 2025-08-22 16:53 | XMS_ITS | Encounter Summary ---
Author Organization [employer] [facility] Address [address] [place] [address] [address] [place] [address] Care Team Providers Care Cable Armorer Operator Name Role Phone Marycarmen Quijano MD Primary Care Provider [phone] Marycarmen Quijano MD Primary Care Provider [phone] Encounter Details Date Type Department Care Team (Latest Contact Info) Description 06/16/2021 Abstract [facility] CONVERSIONS Dental, Provider, DDS Social History [...] Description 01/28/2026 1:30 PM EDT Office Visit [facility] ADULT DENTAL [address] [place] [address] Radha, Johana [address] [place] [address] documented as of this encounter Visit Diagnoses Not on filedocumented in this encounter Care Teams Cable Armorer Operator Relationship Specialty Start Date End Date Marycarmen Quijano MD [address] [place] [address] PCP - General Family Medicine 07/26/13 02/01/23 Marycarmen Quijano MD [address] [place] [phone] PCP - General Family Medicine 03/02/23 06/20/23 documented as of this encounter
--- OUTSIDE RECORDS SUMMARY | 2025-08-22 16:53 | XMS_ITS | Encounter Summary ---
Author Organization [employer] [facility] Address [address] [place] [address] 7t [place] [address] Care Team Providers Care Accounting Technician Name Role Phone Unavailable Primary Care Provider Unavailabl e Reason for Visit * Reason Comments Med Refill Encounter Details Date Type Department Care Team (Late st Contact Info) Description 12/02/2023 Refill [facility] MEDICINE [address] [place] [address] Christianne John MD [address] [place] [address] Moderate persistent asthma, unspecified whether complicated Social [...] [facility] ADULT DENT[facility] [address] [place] [address] Radha, Johana [address] [place] [address] documented as of this encounter Visit Diagnoses Diagnosis Moderate persistent asthma, unspecified whether complicated documented in this encounter
--- OUTSIDE RECORDS SUMMARY | 2025-08-22 16:53 | XMS_ITS | Encounter Summary ---
Author Organization [facility] [facility] Address [address] [place] [address] 7t [place] [address] Care Team Providers Care Chemical Engineer Name Role Phone Marycarmen Quijano MD Primary Care Provider [phone] Reason for Visit * Reason Comments Med Refill Encounter Details Date Type Department Care Team ([facility] Contact Info) Description 04/15/2023 Refill [facility] [address] [place] [address] Marycarmen Quijano MD [address] [place] [address] Social History Tobacco Use Types Packs/Day Years [...] Office Visit [facility]ULT [facility] [address] [place] [address] RadhaJohana [address] [place] [address] documented as of this encounter Visit Diagnoses Not on filedocumented in this encounter Care Teams Chemical Engineer Relationship Specialty Start Date End Date Marycarmen Quijano MD [address] [place] [address] PCP - General Family Medicine 03/02/23 06/20/23 documented as of this encounter
--- OUTSIDE RECORDS SUMMARY | 2025-08-22 16:53 | XMS_ITS | Encounter Summary ---
Author Organization [employer] [facility] Address [address] [place] [address] 7t [place] [address] Care Team Providers Care Tray Line Supervisor Name Role Phone Unavailable Primary Care Provider Unavailabl e Reason for Visit * Reason Comments Med Refill Encounter Details Date Type Department Care Team (Late st Contact Info) Description 11/24/2023 Refill [facility] MED[facility] [address] [place] [address] Christianne John MD [address] [place] [address] Moderate persistent asthma, unspecified whether complicated Social [...] 01/28/2026 1:30 PM EDT Office Visit [facility] ADULT DENT[facility] [address] [place] [address] Radha, Johana [address] [place] [address] documented as of this encounter Visit Diagnoses Diagnosis Moderate persistent asthma, unspecified whether complicated documented in this encounter
--- OUTSIDE RECORDS SUMMARY | 2025-08-22 16:53 | XMS_ITS | Encounter Summary ---
Author Organization [employer] [facility] Address [address] [place] [address] 7t [place] [address] Care Team Providers Care Microbiology Lab Analyst Name Role Phone Unavailable Primary Care Provider Unavailabl e Reason for Visit * Reason Comments Med Refill Encounter Details Date Type Department Care Team (Late Contact Info) Description 01/19/2024 Refill [facility] MEDICINE [address] [place] [address] Christianne John MD [address] [place] [address] Vitamin deficiency Social History Tobacco Use Types [...] Description 01/28/2026 1:30 PM EDT Office Visit [facility] ADULT DENTAL [address] [place] [address] Santos Garciaaris [address] [place] [address] documented as of this encounter Visit Diagnoses Diagnosis Vitamin deficiency Unspecified vitamin deficiency documented in this encounter
--- OUTSIDE RECORDS SUMMARY | 2025-08-22 16:53 | XMS_ITS | Encounter Summary ---
Author Organization [employer] [facility] Address [address] [place] [address] 7t [place] [address] Care Team Providers Care Double Bottom Driver Name Role Phone Unavailable Primary Care Provider Unavailabl e Reason for Visit * Reason Comments Med Refill Encounter Details Date Type Department Care Team (Late st Contact Info) Description 11/29/2023 Refill [facility] MEDICINE [address] [place] [address] Christianne John MD [address] [place] [address] Moderate persistent asthma, unspecified whether complicated Social [...] Description 01/28/2026 1:30 PM EDT Office Visit [facility] ADULT DENT[facility] [address] [place] [address] Radha, Johana [address] [place] [address] documented as of this encounter Visit Diagnoses Diagnosis Moderate persistent asthma, unspecified whether complicated documented in this encounter
--- OUTSIDE RECORDS SUMMARY | 2025-08-22 16:53 | XMS_ITS | Data Portability ---
Author Organization [employer] [facility], [facility] Medical [facility] Address [address] [place] [phone] Care Team Providers Care Delicatessen Slicer Name Role Phone HIM CCA OTHER Assessment Encounter Date Assessment Date Assessment LastModified by Organization Details LastModified Time 04/08/2023 04/08/2023 77 YOF with CHF, COPD recent hospitalization being seen for report of low 02 sat at home in the 80s, On straight line edger exam sat 91% on 2L pt in [...] follow up w pcp in 1 week [email or web address] Not available 09/18/2024 20:08:58 Plan of Treatment Reminders Order Date Submit Date Provider Last Modified By Organization Details Last Modified Time Details Appointments None recorded. Lab rapid SARS CoV 2 Ag, QL IA, respiratory specimen 2023 024 [facility], [address] [place] [address], [id number] 4 09:06:35 rapid flu (A+B) [address], [phone] 4 09:06:54 CBC w/ auto diff 2021 022 [facility] (Centralized Electronic Ordering - All Locations), Patient Can Go To The Location Of Their Choice, [id number] 2 00:05:50 CMP, serum or plasma 2021 [facility] (Centralized Electronic Ordering - All Locations), Patient Can Go To The Location Of Their Choice, [address] 19:37:00 unlisted lab - urinalysis w/reflex culture 2021 [facility] (Centralized Electronic Ordering - All Locations), Patient Can Go To The Location Of Their Choice, [address] 01:53:39 cmp, whole blood + gloria 2021 [email or web address], [address] [place] [address], [id number] 2 16:24:03 urinalysis, dipstick 2021 [email or web address], [address] [place] [address], [id number] 16:24:43 Referral None recorded. Procedures None recorded. Surgeries None recorded. Imaging None recorded. Medication Orders prednisone 10 mg tablet 2023 [facility], [address] [place] [address], [id number], 4 12:30:23 azithromyci n 250 mg tablet 2023 024 [facility], [address] [place] [address], [id number], 4 12:30:23 azithromyci n 250 mg tablet 2023 024 [email or web address] [facility], [address] [place] [address], [id number], 4 20:08:15 prednisone 20 mg tablet 2023 024 [facility], [address] [place] [address], [id number], 4 20:08:15 ipratropium 0.5 mg-albutero l 3 mg (2.5 mg base)/3 mL nebulizatio n soln 2023 024 [email or web address] [facility], [address] [place] [address], [id number], 20:08:15 Patient TargetsNo targets recorded. Patient InstructionsNo [...] Leukocytes neg Not Available Main - [facility] [address] [place] [address], [id number] 02/16/2022 16:23:39 02/17/20 22 02/16/2022 urina lysis , dipst ick Nitrite negati ve Not Available Main - [facility] [address] [place] [address], [id number] 02/16/2022 16:23:39 02/17/20 22 02/16/2022 urina lysis , dipst ick Protein 4+ Not Available Main - [facility] [address], [id number] 02/16/2022 16:23:39 02/17/20 22 02/16/2022 urina lysis , dipst ick Ketone 2+ Not Available Main - [facility] [address], [id number] 02/16/2022 16:23:39 02/17/20 22 02/16/2022 urina lysis , dipst ick Glucose negati ve Not Available Main - [facility] [address] [place] [address], [id number] 02/16/2022 16:23:39 02/17/20 22 02/16/2022 cmp, whole blood + picco lo ALB 2.8 Not Available Main - [facility] [address], [id number] 02/16/2022 16:22:48 02/17/20 22 02/16/2022 cmp, whole blood + picco lo ALP 114 Not Available Main - [facility] [address], [address] 02/16/2022 16:22:48 02/17/20 22 02/16/2022 cmp, whole blood + picco lo ALT 12 Not Available Main - [facility] [address], [id number] 02/16/2022 16:22:48 02/17/20 22 02/16/2022 cmp, whole blood + picco lo AST 18 Not Available Main - [facility] [address], [address] 02/16/2022 16:22:48 02/17/20 22 02/16/2022 cmp, whole blood + picco lo BUN 17 Not Available Main - [facility] [address], [address] 02/16/2022 16:22:48 02/17/20 22 02/16/2022 cmp, whole blood + picco lo Ca 9.8 Not Available Main - [facility] [address], [address] 02/16/2022 16:22:48 02/17/20 22 02/16/2022 cmp, whole blood + picco lo CI- normal Not Available Main - [facility] [address], [address] 02/16/2022 16:22:48 02/17/20 22 02/16/2022 cmp, whole blood + picco lo CRE 1.3 Not Available Main - [facility] [address], [address] 02/16/2022 16:22:48 02/17/20 22 02/16/2022 cmp, whole blood + picco lo GLU 326 Not Available Main - [facility] [address], [address] 02/16/2022 16:22:48 02/17/20 22 02/16/2022 cmp, whole blood + picco lo K+ 3.8 Not Available Main - Ins [address], [address] 02/16/2022 16:22:48 02/17/20 22 02/16/2022 cmp, whole blood + picco lo Na+ 138 Not Available Main - [facility] [address], [address] 02/16/2022 16:22:48 02/17/20 22 02/16/2022 cmp, whole blood + picco lo tCO2 27 Not Available Main - [facility] [address], [address] 02/16/2022 16:22:48 Result Notes None recorded. Medical Equipment None Reported. Allergies Allergen ID Allergen Name Allergen Category Reaction Reaction Severity Criticality Documentation Date Start Date Code Code System Note Provider Name and Address Organization Details Recorded Time 17745 Motrin medicatio n Not available Not available Not available 09/18/202458774 8 RxNorm Not Available [facility] - production 4 15:17:42 90235 acetamino phen / oxycodone medicatio n Not available Not available Not available 09/18/2024 26204 3 RxNorm Not Available [facility] - production 4 15:17:42 14119 tramadol medicatio n Not available Not available Not available 09/18/2024 68857 RxNorm Not Available [facility] - production 4 15:17:42 Medications Name Sig [...] Not Available No t Available Dexcom G7 Journalism Instructor USE DIRECTED active Not Available Not Available [...] % 99 % 98.9 [degF] Not Available [facility] 2 14:54:34 Date Recorded Body weight Respiratory rate Systolic And Diastolic Systolic And Diastolic Provider Name and Address Organization Details Last Updated DateTime 02/16/2022 67360.24 g 20 /min 164/63 mm[Hg] 164/63 mm[Hg] Not Available [facility] 2 14:54:34 Date Recorded Body temperature Heart [...] [degF] 16 /min 137/76 mm[Hg] Not Available [facility] - production 4 20:04:27 Social History None [...] Codes Diagnosis Note 1594 Hanane Mena MD [facility] - [address] [phone] 02/16/2022 14:13:00 05/29/2022 14:46:24 Acute low back pain 585666657 M54.50 Pt p/w 5 days of atraumatic [...] no improvemen t in pain consider imagingPer straight line edger, requestor asked for CBC w/ diff and CMP (not acknowledg ed in [facility] portal) but no orders placed. Reasonable to check CBC w/ diff and CMP thus orders placed. Ketonuria [id number] R82. 4 Pt with 2+ urinary ketones [...] and call PCP if FSG > 350. 23083 Damien Alfredo MD Main - [facility] [address] [place] [phone] 04/08/2023 16:22:43 04/08/2023 23:08:09 Hypoxia 906281764 R09.02 40705 Wander Smith MD Main - [facility] [address] [place] [phone] 09/18/2024 20:04:23 09/18/2024 21:06:53 Acute exacerbation of chronic obstructive pulmonary disease 727442141 J44.1 Health Concerns Section Related Observation LastModified by Organization Detai ls LastModified Time None Recorded Concern Status LastModified by Organization Details LastModified Time None Recorded Advance Directives Directive None Recorded Payers Insurance Date Sequence Insurance Name Policy Number Policy Rendon Covered Member ID Rendon Member ID Guarantor Name 04/08/2023 1 [facility] - DOS PRIOR TO 2023 - DUAL ELIGIBLE (MEDICARE REPLACEMENT/AD VANTAGE - HMO) Katherine Griffith [id number] Katherine Griffith 09/18/2024 1 [facility] - DOS ON OR AFTER 2023 - DUAL ELIGIBLE - GROUP HOME OPTIONS AND ONE CARE (MEDICARE REPLACEMENT/AD VANTAGE - HMO) Katherine Griffith [id number] Katherine Griffith Notes Date Note Type Note [...] .................... .................... .................... .................... .................... .................... . Automation Tech Note: Patient is a 76 year old [...] seen by urologist last month according to director of managed care, kidney function was good. Urine sample obtained and dipped; changes in PRO, SG and KET detected. Urine sent to [facility] for UA and Culture. Vital signs obtained and all within normal limits. Red flags discussed. Consulted with Dr. Mena. Patient is to follow up with PCP/care team regarding her signs, symptoms and todays visit. Dr. Mena recommended blood work. Automation Tech Sara Davis was dispatched for procedure. See straight line edger Sara Davis run report for further patient [...] liner which suggests h Hanane Mena MD [address] [place] [address],[address], [place], [phone], Fair value 02/16/2022 16:24:46 04/08/2023 text/html CRC Nursing Assessment: [...] on behalf of member with request for MOH for eval increased SOB and decreased oxygen levels. Daughter states member talking in full sentences with no acute distress. Daughter could not provide further information. Discuss if symptoms progress to seek emergent care.-verbalize understanding. Verify member name/- Damien Alfredo MD [address] [facility],[address], [place], [phone], Fair value 04/08/2023 16:28:34 09/18/2024 text/html CRC Nurse Triage [...] s/s and seek emergency treatment if needed. Automation Tech Organization Information for [facility] Business Legal Name: [facility] Address: [address] [place] [address], [place]es [address], Small Equipment Operator: Louis Stockton MD CLIA No.: [id number] Automation Tech POC Test Results from [facility] Rapid COVID antigen (20:02:29) COVID: - Rapid influenza antigen (20:02:30) Flu: - Wander Smith MD [address] [place] [address],[address], [place], [phone], [facility] - [employer] 09/18/2024 21:05:29 OBGyn Episode No OBEpisode recorded.
--- OUTSIDE RECORDS SUMMARY | 2025-08-22 16:53 | XMS_ITS | Encounter Summary ---
Author Organization [employer] [facility] Address [address] [place] [address] [address] [place] [address] Care Team Providers Care Rn Long Term Care Name Role Phone Unavailable Primary Care Provider Unavailabl e Reason for Visit * Reason Comments Med Refill Encounter Details Date Type Department Care Team (Late st Contact Info) Description 12/01/2023 Refill [facility] MEDICINE [address] [place] [address] Christianne John MD [address] [place] [address] Moderate persistent asthma, unspecified whether complicated Social [...] 1:30 PM EDT Office Visit [facility] ADULT DENTAL [address] [place] [address] Radha, Johana [address] [place] [address] documented as of this encounter Visit Diagnoses Diagnosis Moderate persistent asthma, unspecified whether complicated documented in this encounter
== END ==
LOC: HO.CARD 09:02
PROVIDERS: PCP Internal Medicine; Visit Provider Internal Medicine Cardiovascular Disease
DX: I25.10 Atherosclerotic heart disease of native coronary artery without angina pectoris (principal); R10.20 Pelvic and perineal pain unspecified side; R07.9 Chest pain, unspecified
CPT/HCPCS: 76830; 76856; 78452; 93017; A9500; J0280; J2785

== ENCOUNTER → 2025-08-22 09:05 | Outpatient (BNV) | payer OTHER, SELFPAY | PROVIDERS: PCP Internal Medicine | DX: R07.9 Chest pain, unspecified (principal); R06.00 Dyspnea, unspecified | CPT/HCPCS: 78452; 93016; 93018 ==

== ENCOUNTER → 2025-08-22 11:45 | Outpatient (BNV) | payer OTHER, SELFPAY | PROVIDERS: PCP Internal Medicine; Visit Provider Radiology Diagnostic Ultrasound | DX: R10.22 Pelvic and perineal pain left side (principal) | CPT/HCPCS: 76830; 76856 ==

== ENCOUNTER 2025-09-03 09:45 | Outpatient (AMB) | payer OTHER, SELFPAY ==
[2025-09-03 09:51] VITALS: BP 148/58; PULSE 66; O2SAT 97; BMI 39.5
--- NOTE | 2025-09-03 09:51 | MHC.OFFVIS ---
Vital Signs 09/03/25 09:51 Height 4 ft 9 in Weight 182 lb 12.211 oz BMI 39.5 BP 148/58 H Blood Pressure Location Lt brachial Position Sitting Pulse 66 Pulse Source Pulse Oximeter Pulse Oximetry (%) 97 Oxygen Delivery Method Room Air Intake Visit Reasons: T2DM Intake Note: Patient present today for Type 2 Diabetes Mellitus Last Diabetic eye exam: Last exam was in August 2025 Last Podiatry Visit: Last visit was around July 2025 Random Glucose: 173 mg/dl HgA1C: 7.2% Ladies Underwear Operator Required: Yes Ladies Underwear Operator Language: Rn Licensed Practical Services: Ladies Underwear Operator Offered & Declined Accompanied by: DIRECTOR DIGITAL SALES Allergies ibuprofen (From Motrin) Allergy (Intermediate, Verified 09/03/25 09:59) High Blood Pressure, Rash oxycodone (From Percocet) Allergy (Intermediate, Verified 09/03/25 09:59) Itching tirzepatide (From Mounjaro) Adverse Reaction (Severe, Verified 09/03/25 09:59) Diarrhea Medication List - Last Reconciled 09/03/25 by Ariana Barksdale PA-C acetaminophen ER 1,300 mg (2 x 650 mg) PO Q8H PRN 30 days albuterol sulfate 90 mcg/actuation 2 inhalations inhalation Q6H PRN 30 days amlodipine 10 mg PO DAILY aspirin 81 mg PO BEDTIME 90 days atorvastatin 80 mg PO BEDTIME 90 days blood pressure monitor As directed blood sugar diagnostic (FreeStyle Lite Strips) Use daily As directed to check blood glucose blood sugar diagnostic (FreeStyle Lite Strips) 3times a day blood-glucose meter (FreeStyle [place] Lite kit) As directed blood-glucose meter (FreeStyle Lite Meter kit) Use daily As directed to check blood sugars blood-glucose sensor (Dexcom G7 Sensor device) Use daily As directed to monitor blood glucose. Change q 10 days blood-glucose,chaser tar,cont (Dexcom G7 Pediatric Radiologist) use daily As directed to monitor blood glucose brimonidine 0.2% 1 drp ophthalmic (eye) TID calcium acetate(phosphat bind) 667 mg PO BID 90 days cane As directed cholecalciferol (vitamin D3) 25 mcg PO DAILY 3 months clopidogrel 75 mg PO DAILY [Diabetic shoes with inserts As directed] disposable gloves As directed esomeprazole magnesium (Nexium) 40 mg PO DAILY ferrous sulfate 325 mg PO .once a week 90 days fluticasone propionate 50 mcg/actuation 1 spray intranasal DAILY PRN 30 days mxrvwbirowd-krtdoxiqn-aprroffl 200-62.5-25 mcg (Trelegy Ellipta) 1 inh inhalation DAILY 30 days folic acid 1 mg PO QAM 90 days FreeStyle Lancets (lancets) 3 times a day NS gabapentin 300 mg PO BEDTIME 90 days glucagon 3 mg/actuation (Baqsimi) mg intranasal hydralazine 25 mg PO TID 90 days hydrocortisone 1% (Anti-Itch (hydrocortisone)) 1 appl topical BID PRN 4 weeks [incomtinemce liner pads As directed] insulin glargine U-300 conc (Toujeo SoloStar U-300 Insulin) 24 units (0.08 mL) subcut DAILY 90 days ipratropium-albuterol 0.5 mg-3 mg(2.5 mg base)/3 mL 3 mL inhalation RQ4H WHILE AWAKE ketoconazole 2% 1 appl topical 2XW 30 days lancets (TRUEplus Lancets) As directed test 4 times a day lancets (FreeStyle Lancets) use daily as directed to check blood glucose latanoprost 0.005% 1 drp ophthalmic (eye) QPM losartan 25 mg PO DAILY 90 days meclizine (Travel-Ease (meclizine)) 12.5 mg (1/2 x 25 mg) PO BID PRN methylcellulose (laxative) (Citrucel) 500 mg PO DAILY montelukast 10 mg PO QPM 90 days Novolog FlexPen U-100 Insulin (insulin aspart U-100) 4 units (0.04 mL) subcut TID NS Oxygen Home Use As directed pen needle, diabetic (BD Sia 2nd Gen Pen Needle) 5 times a day semaglutide (Ozempic) 2 mg (0.75 mL) subcut QWEEK simethicone (Gas Relief (simethicone)) 125 mg PO BID PRN 90 days sucralfate 1 g PO BID PRN torsemide 20 mg PO BID [wipes As directed] HPI HPI T2DM: Details: Pt is a 80 y/o female who presents today for a dm follow up. She is accompanied today by her daughter who translates today. Significant past medical history of peripheral vascular disease, hyperparathyroidism, chronic kidney disease, vitamin-D deficiency, proteinuria, CHF, hypertension, hyperlipidemia come, obstructive sleep apnea and anemia presenting today for a follow up regarding her diabetes. Endo: Initially diagnosed with T2DM in 1999. a1c was 7.1 down from 8.7. Current regimen: Toujeo 24 units qHS and novolog 4 units, and Ozempic 2 mg weekly. She is tolerating the increased dosage of the Ozempic. She has noticed slight appetite suppression but nothing significant. No nausea or vomiting. No diarrhea. She has lost 10 lbs since our last visit. cgm- states she has had issues setting up the reader and sensor for dexcom. -no more low glucose readings -Was initially started on treatment with Metformin. She reports metformin was stopped due to an issue with her kidney. She also failed Trulicity due to GI distress. I discontinue Jardiance due to frequent UTIs and yeast infections. She was started on mounjaro but caused diarrhea so she d/c this. Treats lows with juice. Checks sugar after to ensure it is rising. Treats according to rule of 15's. Had diabetes education. CV: Bp today is 148/58 and she is on amlodipine 10 mg, furosemide 20 mg b.i.d., losartan 25 mg and hydralazine 25 mg TID. No chest pain, shortness of breath or palpitations. Cholesterol is managed with atorvastatin 80 mg. Nephro: Follows with Nephrology. She states that she knows to avoid NSAIDs. 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 Aortic stenosis CKD (chronic kidney disease) stage 3, GFR 30-59 ml/min Dyslipidemia Diabetic polyneuropathy associated with type 2 diabetes mellitus Diabetic nephropathy associated with type 2 diabetes mellitus Chronic kidney disease Hypertension Asthma Thalamic pain syndrome GERD (gastroesophageal reflux disease) Morbid obesity Surgical History H/O colonoscopy H/O aortic valve replacement History of breast lump/mass excision History of tubal ligation History of cholecystectomy Family History Sister History of renal pelvis cancer Father Suicide Mother Lung disease Diabetes mellitus Social History Household Members: Family Housing: House Do you presently have visiting nurse or other home services: Yes (liquor grinding mill operator) Alcohol intake: never Comment: pt stays with pt. Patient Tobacco Use Status: Former Tobacco user Tobacco use type: Cigarette Years Smoked: 5 years e-Cigarette/Vaping Use: Never Used Second Hand Smoke Exposure: No service: No Current occupational status: unemployed and disabled Gender identity: Female Cognitive needs: Yes Hearing needs: No Vision needs: No Female Reproductive History Menstrual Age of Menarche: 10 Physical Exam Vital Signs: Last Vital Signs Pulse 66 09/03/25 09:51 BP 148/58 H 09/03/25 09:51 Pulse Ox 97 09/03/25 09:51 Oxygen Delivery Method Room Air 09/03/25 09:51 BMI result Body Mass Index 39.5 Const Orientation/consciousness: patient oriented x3 HEENT Ears: hearing grossly normal bilaterally Neck Thyroid: Thyroid normal Lymphatic: no lymphadenopathy noted Resp Auscultation: clear to auscultation bilaterally Cardio Rate: regular rate Rhythm: regular rhythm Heart sounds: S1 normal heart sound present and S2 normal heart sound present Skin General skin exam: no rashes or lesions noted Neuro General: patient oriented x3, gait normal and no focal motor deficits Results AMB Hemoglobin A1c AMB Hemoglobin A1c 7.2 % Last Edit by SEFERINO Arizmendi on 09/03/25 10:12 Results Reviewed Results Reviewed: Laboratory Last Values Glucose (Clinic) 173 mg/dL (60-115) H 09/03/25 10:02 Laboratory Tests 03/02/25 05/29/25 06/01/25 15:49 14:12 09:48 Creatinine 1.54 H Estimated GFR 32 Random Glucose 117 H Hgb A1c (Clinic) 8.3 H 7.1 H 06/18/25 10:44 Creatinine 1.51 H Estimated GFR 33 Random Glucose 120 H Hgb A1c (Clinic) Assessment & Plan Assessment & Plan (1) Uncontrolled type 2 diabetes mellitus with chronic kidney disease, with long-term current use of insulin: Code(s): E11.22 - Type 2 diabetes mellitus with diabetic chronic kidney disease; E11.65 - Type 2 diabetes mellitus with hyperglycemia; Z79.4 - skilled nursing (current) use of insulin Category: Medical Plan: continue current treatment plan recheck labs in 3 months provided reader and i helped her set this up for her today and inserted sensor for her. it appears to be working without issues. will have her follow up short term with nurse to review reader and make sure it is working effectively. Does not want to go back on a [place] 3 (2) Morbid obesity with BMI of 40.0-44.9, adult: Code(s): E66.01 - Morbid (severe) obesity due to excess calories; Z68.41 - Body mass index [BMI] 40.0-44.9, adult Category: Medical Plan: down 10 lbs. states she is still continuing to lose weight. Orders: Orders AMB Hemoglobin A1c Today E11.22 - Type 2 diabetes mellitus with diabetic chronic kidney disease, E11.65 - Type 2 diabetes mellitus with hyperglycemia, Z13.9 - Encounter for screening, unspecified, Z79.4 - extermination supervisor (current) use of insulin Medications: Refilled blood-glucose sensor (Dexcom G7 Sensor device) Use daily As directed to monitor blood glucose. Change q 10 days 3 ea 11RF Coding Level of Care Code Est Pt Level 4 (90800) Complex visit Add On G2211 Diagnoses Uncontrolled type 2 diabetes mellitus with chronic kidney disease, with long-term current use of insulin E11.22; E11.65; Z79.4 Morbid obesity with BMI of 40.0-44.9, adult E66.01; Z68.41
[2025-09-03 10:06] LABS: Glucose, Whole Blood 173 mg/dL (60-115)
--- OUTSIDE RECORDS SUMMARY | 2025-09-03 11:44 | XMS_ITS | Encounter Summary ---
Author Organization [employer] Address [address] [facility] 7t [place] [address] Care Team Providers Care Painter Assistant Name Role Phone Marycarmen Quijano MD Primary Care Provider Reason for Visit * Reason Comments Med Refill Encounter Details Date Type Department Care Team ([facility] Contact Info) Description 04/12/2023 Refill [facility] W[facility] [address] [place] [address] Jose Johnson MD [address] [place] [address] Social History Tobacco Use Types Packs/Day Years [...] Upcoming Encounters Date Type Department Care Team ([facility] Contact Info) Description 01/28/2026 1:30 PM EDT Office Visit [facility] ADULT [facility] [address] [place] [address] RadhaJohana [address] [place] [address] documented as of this encounter Visit Diagnoses Not on filedocumented in this encounter Care Teams Painter Assistant Relationship Specialty Start Date End Date Marycarmen Quijano MD [address] [place] [address] PCP - General Family Medicine 03/02/23 06/20/23 documented as of this encounter
--- OUTSIDE RECORDS SUMMARY | 2025-09-03 11:44 | XMS_ITS | Encounter Summary ---
Author Organization [facility] [facility] Address [address] [place] [address] 7 [place] [address] Care Team Providers Care Database Security Administrator Name Role Phone Marycarmen Quijano MD Primary Care Provider [phone] Marycarmen Quijano MD Primary Care Provider [phone] Reason for Visit * Reason Comments Med Refill Encounter Details Date Type Department Care Team (Late st Contact Info) Description 11/10/2022 Refill [facility] MEDICINE [address] [place], [place] [phone] Marycarmen Quijano MD [address] [place], [place] [phone] Social History Tobacco Use Types Packs/Day Years [...] 1:30 PM EDT Office Visit [facility] ADULT DENTAL [address] [place], [place] [phone] Radha, Johana [address] [place] [address] documented as of this encounter Visit Diagnoses Not on filedocumented in this encounter Care Teams Database Security Administrator Relationship Specialty Start Date End Date Marycarmen Quijano MD [address] [place] [address] PCP - General Family Medicine 07/26/13 02/01/23 Marycarmen Quijano MD [address] [place] [address] PCP - General Family Medicine 03/02/23 06/20/23 documented as of this encounter
--- OUTSIDE RECORDS SUMMARY | 2025-09-03 11:44 | XMS_ITS | Encounter Summary ---
Author Organization [employer] [facility] Address [address] [place] [address] 7t [place] [address] Care Team Providers Care Welding Rod Coater Name Role Phone Marycarmen Quijano MD Primary Care Provider [phone] Reason for Visit * Reason Comments Med Refill Encounter Details Date Type Department Care Team ([facility] Contact Info) Description 04/04/2023 Refill [facility] MEDIC[facility] [address] [place] [address] Marycarmen Quijano MD [address] [place] [address] Social History Tobacco Use Types Packs/Day Years [...] Team ([facility] Contact Info) Description 01/28/2026 1:30 PM EDT Office Visit [facility] ADULT DENTAL [address] [place] [address] RadhaJohana [address] [place] [address] documented as of this encounter Visit Diagnoses Not on filedocumented in this encounter Care Teams Welding Rod Coater Relationship Specialty Start Date End Date Marycarmen Quijano MD [address] [place] [address] PCP - General Family Medicine 03/02/23 06/20/23 documented as of this encounter
--- OUTSIDE RECORDS SUMMARY | 2025-09-03 11:44 | XMS_ITS | Encounter Summary ---
Author Organization [employer] [facility] Address [address] [place] [address] 7t [place] [address] Care Team Providers Care Capacitor Tester Name Role Phone Marycarmen Quijano MD Primary Care Provider Reason for Visit * Reason Comments Med Refill Encounter Details Date Type Department Care Team ([facility] Contact Info) Description 04/15/2023 Refill [facility] MEDICINE [address] [place] [address] Marycarmen Quijano MD [address] [place] [address] Social History Tobacco Use Types Packs/Day Years [...] [facility] Contact Info) Description 01/28/2026 1:30 PM EDT Office Visit [facility] ADULT DENTAL [address] [place] [address] RadhaJohana [address] [place] [address] documented as of this encounter Visit Diagnoses Not on filedocumented in this encounter Care Teams Capacitor Tester Relationship Specialty Start Date End Date Marycarmen Quijano MD [address] [place] [address] PCP - General Family Medicine 03/02/23 06/20/23 documented as of this encounter
--- OUTSIDE RECORDS SUMMARY | 2025-09-03 11:44 | XMS_ITS | Encounter Summary ---
Author Organization [employer] [facility] Address [address] [facility] 7t [place] [address] Care Team Providers Care Clinic Office Coordinator Name Role Phone Marycarmen Quijano MD Primary Care Provider [phone] Reason for Visit * Reason Comments Med Refill Encounter Details Date Type Department Care Team ([facility] Contact Info) Description 03/10/[address] [facility] MED & PEDS [address] [place], [place] [phone] Marycarmen Quijano MD [address] [place] [address] Primary hypertension Social History Tobacco Use Types [...] Upcoming Encounters Date Type Department Care Team ([facility] Contact Info) Description 01/28/2026 1:30 PM EDT Office Visit [facility] ADULT DENTAL [address] [place] [address] Santos Garciaaris [address] [place] [address] documented as of this encounter Visit Diagnoses Diagnosis Primary hypertension Unspecified essential hypertension documented in this encounter Care Teams Clinic Office Coordinator Relationship Specialty Start Date End Date Marycarmen Quijano MD [address] [place] [address] PCP - General Family Medicine 03/02/23 06/20/23 documented as of this encounter
--- OUTSIDE RECORDS SUMMARY | 2025-09-03 11:44 | XMS_ITS | Encounter Summary ---
Author Organization [employer] [facility] Address [address] [place] [address] 7t [place] [address] Care Team Providers Care Functional Director Name Role Phone Marycarmen Quijano MD Primary Care Provider [phone] Reason for Visit * Reason Comments Med Refill Encounter Details Date Type Department Care Team ([facility] Contact Info) Description 03/07/2023 Refill [facility] CHC MED & PEDS [address] [place], [place] [phone] Marycarmen Quijano MD [address] [place], [place] [phone] Social History Tobacco Use Types Packs/Day Years [...] [facility] [address] [place] [address] Radha, Johana [address] [place] [address] documented as of this encounter Visit Diagnoses Not on filedocumented in this encounter Care Teams Functional Director Relationship Specialty Start Date End Date Marycarmen Quijano MD [address] [place] [address] PCP - General Family Medicine 03/02/23 06/20/23 documented as of this encounter
--- OUTSIDE RECORDS SUMMARY | 2025-09-03 11:44 | XMS_ITS | Encounter Summary ---
Author Organization [employer] Address [address] [place] [address] 7t [place] [address] Care Team Providers Care Aircraft Structural Repair Mechanic Name Role Phone Marycarmen Quijano MD Primary Care Provider [phone] Reason for Visit * Reason Comments Med Refill Encounter Details Date Type Department Care Team ([facility] Contact Info) Description 03/03/2023 Refill [facility] CHC MED & PEDS [address] [place], [place] [phone] Marycarmen Quijano MD [address] [place] [address] Primary hypertension Social History Tobacco Use Types [...] Description 01/28/2026 1:30 PM EDT Office Visit [facility] ADULT DENTAL [address] [place] [address] RadhaJohana [address] [place] [address] documented as of this encounter Visit Diagnoses Diagnosis Primary hypertension Unspecified essential hypertension documented in this encounter Care Teams Aircraft Structural Repair Mechanic Relationship Specialty Start Date End Date Marycarmen Quijano MD [address] [place] [address] PCP - General Family Medicine 03/02/23 06/20/23 documented as of this encounter
--- OUTSIDE RECORDS SUMMARY | 2025-09-03 11:44 | XMS_ITS | Encounter Summary ---
Author Organization [employer] [facility] Address [address] [place] [address] 7t [place] [address] Care Team Providers Care General Labor Name Role Phone Unavailable Primary Care Provider Unavailabl e Reason for Visit * Reason Comments Med Refill Encounter Details Date Type Department Care Team (Late Contact Info) Description 01/19/2024 Refill [facility] MEDICINE [address] [place] [address] Christianne John MD [address] [place] [address] Vitamin deficiency Social History Tobacco Use Types [...] Description 01/28/2026 1:30 PM EDT Office Visit [facility] ADULT DENTAL [address] [place] [address] Santos Garciaaris [address] [place] [address] documented as of this encounter Visit Diagnoses Diagnosis Vitamin deficiency Unspecified vitamin deficiency documented in this encounter
--- OUTSIDE RECORDS SUMMARY | 2025-09-03 11:44 | XMS_ITS | Encounter Summary ---
Author Organization [employer] [facility] Address [address] [place] [address] 7t [place] [address] Care Team Providers Care Italian Lecturer Name Role Phone Marycarmen Quijano MD Primary Care Provider [phone] Reason for Visit * Reason Comments Med Refill Encounter Details Date Type Department Care Team ([facility] Contact Info) Description 02/06/2023 Refill [facility] MEDICINE [address] [place] [address] Marycarmen Quijano MD [address] [place] [address] Social History Tobacco Use Types Packs/Day Years [...] Care Team ([facility] Contact Info) Description 01/28/2026 1:30 PM EDT Office Visit [facility] ADULT DENTAL [address] [place] [address] RadhaJohana [address] [place] [address] documented as of this encounter Visit Diagnoses Not on filedocumented in this encounter Care Teams Italian Lecturer Relationship Specialty Start Date End Date Marycarmen Quijano MD [address] [place] [address] PCP - General Family Medicine 03/02/23 06/20/23 documented as of this encounter
--- OUTSIDE RECORDS SUMMARY | 2025-09-03 11:44 | XMS_ITS | Encounter Summary ---
Author Organization [employer] [facility] Address [address] [place] [address] 7t [place] [address] Care Team Providers Care Bleach Boiler Filler Name Role Phone Marycarmen Quijano MD Primary Care Provider [phone] Marycarmen Quijano MD Primary Care Provider [phone] Encounter Details Date Type Department Care Team (Latest Contact Info) Description 06/16/2021 Abstract [facility] CONVERSIONS Dental, Provider, DDS [...] Visit [facility] ADULT DENTAL [address] [place] [address] Radha, Johana [address] [place] [address] documented as of this encounter Visit Diagnoses Not on filedocumented in this encounter Care Teams Bleach Boiler Filler Relationship Specialty Start Date End Date Marycarmen Quijano MD 230 [place] [address] PCP - General Family Medicine 07/26/13 02/01/23 Marycarmen Quijano MD [address] [place] [address] PCP - General Family Medicine 03/02/23 06/20/23 documented as of this encounter
--- OUTSIDE RECORDS SUMMARY | 2025-09-03 11:45 | XMS_ITS | Encounter Summary ---
Author Organization [facility] Address [address] [place] [address] 7t [place] [address] Care Team Providers Care Radio Presenter Name Role Phone Unavailable Primary Care Provider Unavailabl e Reason for Visit * Reason Comments Med Refill Encounter Details Date Type Department Care Team (Late st Contact Info) Description 12/02/2023 Refill [facility] MEDICINE [address] [place] [address] Christianne John MD [address] [place] [address] Moderate persistent asthma, unspecified whether complicated Social [...] [facility] ADULT DENTAL [address] [place] [address] Radha, Johana [address] [place] [address] documented as of this encounter Visit Diagnoses Diagnosis Moderate persistent asthma, unspecified whether complicated documented in this encounter
--- OUTSIDE RECORDS SUMMARY | 2025-09-03 11:45 | XMS_ITS | Clinical Summary ---
Author Organization [employer] Address [address] [facility] 7t [place] [address] Care Team Providers Care Superintendent Schools Name Role Phone Unavailable Primary Care Provider [...] BEDTIME 2 Active Blood Glucose Monitoring Suppl (Wealink.comStyle [place] Lite) w/Device kit TEST BLOOD SUGAR [...] by mouth at bed time. Active Creon 59687-16014 units capsule 3 Active pantoprazole (ProtoNix) 40 [...] 3 Active ergocalciferol (Vitamin D2) 1.25 MG (50496 UT) capsule TAKE 1 CAPSULE BY MOUTH [...] Description 07/25/2025 10:15 AM EDT Office Visit [facility] ADULT DENTAL [address] [place] [address] Johana Garcia Partially edentulous mandible, unspecified edentulism class (Primary Dx); Localized gingival recession, severe; Dental plaque; Extruded tooth from Last 3 Months Immunizations Immunization Administration [...] [facility] ADULT DENTAL [address] [place] [address] Johana Garcia [address] [place] [address] Health Maintenance Due Date Last Done Comments [...] class Localized gingival recession, severe INTRAORAL - COMPLETE SERIES OF RADIOGRAPHIC IMAGES Routine 06/19/2024 10:00 AM EDT [facility] HISTORICAL HEMOGLOBIN A1C Routine 07/09/2022 10:40 AM EDT [facility] HISTORICAL LIPID PANEL Routine 09/18/2020 1:18 PM EST from Last 3 Months or Most Recently Relevant to Health Maintenance Results * HEMOGLOBIN A1C (07/09/2022 10:40 AM EDT) Estimated Average Glucose 151 mg/dL [facility] Comment: eAG = Estimated average glucose which is %A1C expressed as average glucose, using the formula of the U5Y-Wihwykz Average Glucose study (ADAG), Diabetes Care, Vol.31,#8, 2007 Hemoglobin A1c % 6.9 % [facility] Comment: Hemoglobin A1C Reference Range [...] liver disease. LDL Cholesterol Calculated 90 mg/dl [facility] Comment: Desirable LDL: less than [...] 38 [facility] Comment: NOTE: For -Gabonese individuals, multiply the result by 1.210. Chronic [...] Result [facility] [address] from Last 3 Months or Most Recently Relevant to Health Maintenance Insurance # [address] [place] [address] [facility] [employer] OPTIONS (O D-SNP) YASMIN FRANCO [id number] DENTAL - [facility]
--- OUTSIDE RECORDS SUMMARY | 2025-09-03 11:45 | XMS_ITS | Encounter Summary ---
Author Organization [employer] [facility] Address [address] [place] [address] 7t [place] [address] Care Team Providers Care Box Fabricator Name Role Phone Unavailable Primary Care Provider Unavailabl e Reason for Visit * Reason Comments Med Refill Encounter Details Date Type Department Care Team (Late st Contact Info) Description 12/01/2023 Refill [facility] MEDICINE [address] [place] [address] Christianne John MD [address] [place] [address] Moderate persistent asthma, unspecified whether complicated Social [...] 1:30 PM EDT Office Visit [facility] ADULT DENTAL [address] [place] [address] Radha, Johana [address] [place] [address] documented as of this encounter Visit Diagnoses Diagnosis Moderate persistent asthma, unspecified whether complicated documented in this encounter
--- OUTSIDE RECORDS SUMMARY | 2025-09-03 11:45 | XMS_ITS | Encounter Summary ---
Author Organization [employer] [facility] Address [address] [place] [address] 7t [place] [address] Care Team Providers Care Metal Casting Trades Worker Name Role Phone Marycarmen Quijano MD Primary Care Provider [phone] Reason for Visit * Reason Comments Med Refill Encounter Details Date Type Department Care Team ([facility] Contact Info) Description 04/15/2023 Refill [facility] MEDICINE [address] [place] [address] Marycarmen Quijano MD [address] [place] [address] Social History Tobacco Use Types Packs/Day Years [...] Encounters Date Type Department Care Team ([facility] Contact Info) Description 01/28/2026 1:30 PM EDT Office Visit [facility] ADULT DENTAL [address] [place] [address] RadhaJohana [address] [place] [address] documented as of this encounter Visit Diagnoses Not on filedocumented in this encounter Care Teams Metal Casting Trades Worker Relationship Specialty Start Date End Date Marycarmen Quijano MD [address] [place] [address] PCP - General Family Medicine 03/02/23 06/20/23 documented as of this encounter
--- OUTSIDE RECORDS SUMMARY | 2025-09-03 11:45 | XMS_ITS | Encounter Summary ---
Author Organization [employer] [facility] Address [address] [place] [address] 7t [place] [address] Care Team Providers Care Forester Silviculture Name Role Phone Unavailable Primary Care Provider Unavailabl e Reason for Visit * Reason Comments Med Refill Encounter Details Date Type Department Care Team (Late st Contact Info) Description 11/24/2023 Refill [facility] MEDICINE [address] [place] [address] Christianne John MD [address] [place] [address] Moderate persistent asthma, unspecified whether complicated Social [...] Visit [facility] ADULT DENTAL [address] [place] [address] Radha, Johana [address] [place] [address] documented as of this encounter Visit Diagnoses Diagnosis Moderate persistent asthma, unspecified whether complicated documented in this encounter
--- OUTSIDE RECORDS SUMMARY | 2025-09-03 11:45 | XMS_ITS | Encounter Summary ---
Author Organization [facility] [facility] Address [address] [place] [address] 7t [place] [address] Care Team Providers Care Compliance Attorney Name Role Phone Unavailable Primary Care Provider Unavailabl e Reason for Visit * Reason Comments Med Refill Encounter Details Date Type Department Care Team (Late st Contact Info) Description 11/29/2023 Refill [facility] MEDICINE [address] [place] [address] Christianne John MD [address] [place] [address] Moderate persistent asthma, unspecified whether complicated Social [...] Description 01/28/2026 1:30 PM EDT Office Visit [facility] ADULT DENTAL [address] [place] [address] Radha, Johana [address] [place] [address] documented as of this encounter Visit Diagnoses Diagnosis Moderate persistent asthma, unspecified whether complicated documented in this encounter
== END 2025-09-03 10:25 | disposition home or self-care (01) ==
LOC: HO.ENCR 09:46
PROVIDERS: PCP Internal Medicine; Visit Provider Physician Assistant
DX: E11.22 Type 2 diabetes mellitus with diabetic chronic kidney disease (principal); E11.65 Type 2 diabetes mellitus with hyperglycemia; Z79.4 Long term (current) use of insulin; E66.01 Morbid (severe) obesity due to excess calories; Z68.41 Body mass index [BMI] 40.0-44.9, adult; Z13.9 Encounter for screening, unspecified

== ENCOUNTER → 2025-09-03 09:45 | Outpatient (BNVA) | payer OTHER, SELFPAY | PROVIDERS: PCP Internal Medicine; Visit Provider Physician Assistant | DX: E11.22 Type 2 diabetes mellitus with diabetic chronic kidney disease (principal); E11.65 Type 2 diabetes mellitus with hyperglycemia; E66.01 Morbid (severe) obesity due to excess calories; Z68.41 Body mass index [BMI] 40.0-44.9, adult; Z79.4 Long term (current) use of insulin; Z79.899 Other long term (current) drug therapy | CPT/HCPCS: 82947; 83036; 99212 ==

== ENCOUNTER 2025-09-05 10:14 | Outpatient (AMB) | payer OTHER, SELFPAY ==
--- OUTSIDE RECORDS SUMMARY | 2024-03-31 04:30 | XMS_ITS ---
Author Organization [facility] Address [address] [place] [address] Care Team Providers Care Machine Setter Supervisor Name Role Phone Jaime VORA, Shelby Primary Care Provider Unavail Randy Marshall Unavailable [phone] REASON FOR VISIT Seen Sooner Encounters Encounter Location Date Provider Diagnosis [facility] [address] [place] [address] 03/31/2024 Randy Leal Plan Of Treatment Next Appt Details Provider Name:Randy Leal , 11/20/2025 03:00:00 PM, [address] [place], [address], Progress Notes * Katherine DIASDOB: 5 (80 yo F)Acc No.[id number]:03/31/2024 Progress Notes Patient: Katherine FARMER Provider: Adelina Leal DPM :1945 A ge:78 Y S ex:Female Date:03/31/2024 Address:[address] [place], [place] [id number] Pcp:Shelby Sandoval MD Subjective: * Chief Complaints: * 1 . Seen Sooner. * Medical History: Objective: * Vitals: Assessment: Plan: * Treatment: * Images: * The named appointment provid er may or may not be the originator of this progress note, and it is not deemed complete until electronically signed by the appointment provider. Sign off status: Pending * Provider: Adelina Leal DPM Date: 0 03/31/2024 Generated for Herber olea/Eduardo on: 1 11/06/2024 11:42 AM EST
--- OUTSIDE RECORDS SUMMARY | 2025-03-27 04:30 | XMS_ITS ---
Author Organization [facility] Address [address] [place] [address] Care Team Providers Care Kennel Technician Name Role Phone Jaime VORA, Shelby Primary Care Provider Unavail Randy Marshall Unavailable [phone] Encounters Encounter Location Date Provider Diagnosis [address] [address] 03/27/2025 Randy Leal Plan Of Treatment Next Appt Details Provider Name:Randy Leal , 11/20/2025 03:00:00 PM, [address] [place], [address], Progress Notes * CLAYKatherine BATRESDOB: 5 (80 yo F)Acc No.[id number]:03/27/2025 Progress Note Patient: Katherine FARMER Provider: Adelina Leal DPM :1945 A ge:79 Y S ex:Female Date:03/27/2025 Address:[address] [place], [place] [id number] Pcp:Shelby Sandoval MD Subjective: * Chief Complaints: [...] 03/27/2025 Generated for Herber olea/Rolando/Emely on: 1 11/06/2024 11:41 AM EST
--- NOTE | 2025-09-05 10:17 | MHC.OFFVIS ---
Vital Signs 09/05/25 10:43 Height 4 ft 9 in Weight 182 lb BMI 39.4 BP 126/54 L Blood Pressure Location Lt brachial Position Sitting Pulse 72 Pulse Source Pulse Oximeter Pulse Oximetry (%) 97 Oxygen Delivery Method Room Air Intake Visit Reasons: 3 mos FUV. CIC + GERD. Intake Note: Est pt for mgmt of GERD + CIC. CC; C/O LUQ pain, bloating, and lack of appetite despite current therapies. Pt daughter confirms that she is taking her medications as instructed but has not noticed much improvement since last visit. Pattern Clerk Required: Yes Pattern Clerk Services: Pattern Clerk Offered & Declined Accompanied by: Daughter Allergies ibuprofen (From Motrin) Allergy (Intermediate, Verified 09/05/25 10:17) High Blood Pressure, Rash oxycodone (From Percocet) Allergy (Intermediate, Verified 09/05/25 10:17) Itching tirzepatide (From Mounjaro) Adverse Reaction (Severe, Verified 09/05/25 10:17) Diarrhea HPI HPI 3 mos FUV. CIC + GERD.: Details: LAST VISIT: GERD (gastroesophageal reflux disease) Abdominal pain, LUQ (left upper quadrant) Postprandial diarrhea Postprandial abdominal bloating Plan Patient will continue taking Nexium. Avoid dietary triggers in late night snacking. Staying upright for minimum 3 hours after meals discussed with patient. Patient will take qevb-pxv-nwjquif fiber to help control the diarrhea. Long discussion with patient and her daughter about the importance of fiber and fiber helping bulk the stool. May use 1-2 capsules daily. Discussed with patient low FODMAP diet again and trying to stay away from bread and lactose. May use simethicone as needed. Patient will follow-up in 2-3 months, sooner on as needed basis. Patient is agreeable to this plan and verbalizes understanding of instructions. She was given the opportunity to ask questions and all questions answered. ? Thank you for allowing me to participate in her care Changed Changed From simethicone (Gas Relief (simethicone)) 250 mg (2 x 125 mg) PO BID 90 days PRN 180 caps 0RF abdominal distention Changed To simethicone (Gas Relief (simethicone)) 125 mg PO BID PRN 180 caps 0RF abdominal distention 90 days TODAY'S VISIT Patient is here today for follow-up. Patient is accompanied by her daughter. Patient reports that she continues to be constipated and have abdominal bloating. She is taking fiber. Patient's daughter believes that she also is taking simethicone for bloating. Patient is not following on any particular diet. Patient's daughter reports that she eats what she wants. Does not drink fluids. She mainly drinks juices. Patient continues to eat bread. Patient eats rice. Typical Sudanese food. Patient denies any nausea or vomiting. Denies any dyspepsia, dysphagia or odynophagia. 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 Aortic stenosis CKD (chronic kidney disease) stage 3, GFR 30-59 ml/min Dyslipidemia Diabetic polyneuropathy associated with type 2 diabetes mellitus Diabetic nephropathy associated with type 2 diabetes mellitus Chronic kidney disease Hypertension Asthma Thalamic pain syndrome GERD (gastroesophageal reflux disease) Morbid obesity Surgical History H/O colonoscopy H/O aortic valve replacement History of breast lump/mass excision History of tubal ligation History of cholecystectomy Family History Sister History of renal pelvis cancer Father Suicide Mother Lung disease Diabetes mellitus Social History Household Members: Family Housing: House Do you presently have visiting nurse or other home services: Yes (public relations supervisor) Alcohol intake: never Comment: pt stays with pt. Patient Tobacco Use Status: Former Tobacco user Tobacco use type: Cigarette Years Smoked: 5 years e-Cigarette/Vaping Use: Never Used Second Hand Smoke Exposure: No service: No Current occupational status: unemployed and disabled Gender identity: Female Cognitive needs: Yes Hearing needs: No Vision needs: No Female Reproductive History Menstrual Age of Menarche: 10 Review of Systems Const Denies weight gain and Denies weight loss ENT Reports no additional complaints, Reports dysphagia (occasional) and Denies odynophagia Card Reports no additional complaints Resp Reports no additional complaints GI Denies abdominal pain, Reports belching, Denies melena, Reports bloating, Denies change in bowel habits, Reports constipation, Reports dysphagia (occasional), Denies excessive flatus, Denies dyspepsia, Reports heartburn, Reports diarrhea, Denies loose stools, Denies nausea, Denies odynophagia and Denies vomiting Reports no additional complaints Musc Reports no additional complaints Neuro Reports no additional complaints Psych Reports no additional complaints Endo Reports no additional complaints Physical Exam Vital Signs: Last Vital Signs Pulse 72 09/05/25 10:43 BP 126/54 L 09/05/25 10:43 Pulse Ox 97 09/05/25 10:43 Oxygen Delivery Method Room Air 09/05/25 10:43 BMI result Body Mass Index 39.4 Const General: healthy appearing and no acute distress Nutritional Appearance: obese Orientation/consciousness: patient oriented x3 Resp Effort & Inspection: normal respiratory effort, able to speak in complete sentences, no tracheal deviation and symmetric chest movement Auscultation: clear to auscultation bilaterally Cardio Rate: regular rate GI Inspection: Yes normal to inspection, No distended and Yes obesity Palpation (GI): Soft to palpation, not firm, nontender and No hepatosplenomegaly present Auscultation: normal bowel sounds General: Yes no CVA tenderness Back/Spine/Pelvis Back: no CVA tenderness Skin General skin exam: elasticity normal, turgor normal and dry skin Neuro General: patient oriented x3 Psych Appearance: grossly normal Mental Status: mental status grossly normal Assessment & Plan Assessment & Plan (1) GERD (gastroesophageal reflux disease): Code(s): K21.9 - Gastro-esophageal reflux disease without esophagitis Category: Medical Qualifiers: Esophagitis presence: esophagitis presence not specified Qualified Code(s): K21.9 - Gastro-esophageal reflux disease without esophagitis (2) Dysphagia: Code(s): R13.10 - Dysphagia, unspecified Category: Medical Qualifiers: Dysphagia type: esophageal phase Qualified Code(s): R13.19 - Other dysphagia (3) Pancreatic insufficiency: Code(s): K86.89 - Other specified diseases of pancreas Category: Medical (4) RUQ abdominal pain: Code(s): R10.11 - Right upper quadrant pain Category: Medical (5) Right flank pain: Code(s): R10.9 - Unspecified abdominal pain Category: Medical Plan Patient will continue taking Nexium. Avoid dietary triggers in late night snacking. Staying upright for minimum 3 hours after meals discussed with patient. She was encouraged to increase fluid intake and activity to promote bowel motility. She can also take qyqt-ryl-pcntrrh fiber. Discussed with patient all FODMAP diet. Patient reports abdominal bloating, however she does admit to be eating Sudanese food with rice and beans almost every day. Make take simethicone with meal. Importance of emptying her bowels completely was addressed as well. Patient will call us if she will feel constipated. Patient is agreeable to current plan of care and verbalizes understanding of instructions. She was given the opportunity to ask questions and all questions answered. Thank you for allowing me to participate in her care Medications: Refilled esomeprazole magnesium (Nexium) 40 mg PO DAILY 90 caps 2RF K21.9 - Gastro-esophageal reflux disease without esophagitis simethicone (Gas Relief (simethicone)) 125 mg PO BID PRN 180 caps 4RF abdominal distention 90 days Coding Level of Care Code Est Pt Level 3 (26114) Diagnoses Gastroesophageal reflux disease, unspecified whether esophagitis present K21.9 Esophagitis presence: esophagitis presence not specified Esophageal dysphagia R13.19 Dysphagia type: esophageal phase Pancreatic insufficiency K86.89 RUQ abdominal pain R10.11 Right flank pain R10.9 Time Spent (min) 30 Comment 20 minutes spent with patient and additional 10 minutes spent reviewing her records
[2025-09-05 10:43] VITALS: BP 126/54; PULSE 72; O2SAT 97; BMI 39.4
--- OUTSIDE RECORDS SUMMARY | 2025-09-05 11:40 | XMS_ITS | Encounter Summary ---
Author Organization [employer] Address [address] [facility] 7t [place] [address] Care Team Providers Care Money Examiner Name Role Phone Marycarmen Quijano MD Primary Care Provider [phone] Reason for Visit * Reason Comments Med Refill Encounter Details Date Type Department [facility] Description 04/12/2023 Refill [facility] [address] [place] [address] Jose Johnson MD [address] [place] [address] Social History Tobacco Use Types Packs/Day Years [...] Upcoming Encounters Date Type Department Care Team ([facility] Description 01/28/2026 1:30 PM EDT Office Visit [facility] [address] [place] [address] RadhaJohana [address] [place] [address] documented as of this encounter Visit Diagnoses Not on filedocumented in this encounter Care Teams Money Examiner Relationship Specialty Start Date End Date Marycarmen Quijano MD [address] [place] [address] PCP - General Family Medicine 03/02/23 06/20/23 documented as of this encounter
--- OUTSIDE RECORDS SUMMARY | 2025-09-05 11:40 | XMS_ITS | Encounter Summary ---
Author Organization [facility] Address [address] [place] [address] 7t [place] [address] Care Team Providers Care Serologist Name Role Phone Marycarmen Quijano MD Primary Care Provider [phone] Reason for Visit * Reason Comments Med Refill Encounter Details Date Type Department Care Team ([facility] Contact Info) Description 04/04/2023 Refill [facility] [address] [place] [address] Marycarmen Quijano MD [address] [place] [address] Social History Tobacco Use Types Packs/Day Years [...] Upcoming Encounters Date Type Department Care Team ([facility] Contact Info) Description 01/28/2026 1:30 PM EDT Office Visit [facility] [address] [place] [address] RadhaJohana [address] [place] [address] documented as of this encounter Visit Diagnoses Not on filedocumented in this encounter Care Teams Serologist Relationship Specialty Start Date End Date Marycarmen Quijano MD [address] [place] [address] PCP - General Family Medicine 03/02/23 06/20/23 documented as of this encounter
--- OUTSIDE RECORDS SUMMARY | 2025-09-05 11:40 | XMS_ITS | Encounter Summary ---
Author Organization [facility] Address [address] [place] [address] 7t [place] [address] Care Team Providers Care Road Roller Operator Hot Mix Name Role Phone Marycarmen Quijano MD Primary Care Provider [phone] Reason for Visit * Reason Comments Med Refill Encounter Details Date Type Department Care Team ([facility] Contact Info) Description 04/15/2023 Refill [facility] [address] [place] [address] Marycarmen Quijano MD [address] [place] [address] Social History Tobacco Use Types Packs/Day Years [...] 01/28/2026 1:30 PM EDT Office Visit [facility] ADULT D[facility] [address] [place] [address] RadhaJohana [address] [place] [address] documented as of this encounter Visit Diagnoses Not on filedocumented in this encounter Care Teams Road Roller Operator Hot Mix Relationship Specialty Start Date End Date Marycarmen Quijano MD [address] [place] [address] PCP - General Family Medicine 03/02/23 06/20/23 documented as of this encounter
--- OUTSIDE RECORDS SUMMARY | 2025-09-05 11:40 | XMS_ITS | Encounter Summary ---
Author Organization [employer] Address [address] [place] [address] 7t [place] [address] Care Team Providers Care Animal Care Specialist Name Role Phone Marycarmen Quijano MD Primary Care Provider [phone] Reason for Visit * Reason Comments Med Refill Encounter Details Date Type Department Care Team ([facility] Contact Info) Description 03/03/[address] [facility] & PEDS [address] [place], [place] [phone] Marycarmen Quijano MD [address] [place] [address] Primary hypertension Social History Tobacco Use Types [...] [facility]ULT [facility] [address] [place] [address] RadhaJohana [address] [place] [address] documented as of this encounter Visit Diagnoses Diagnosis Primary hypertension Unspecified essential hypertension documented in this encounter Care Teams Animal Care Specialist Relationship Specialty Start Date End Date Marycarmen Quijano MD [address] [place] [address] PCP - General Family Medicine 03/02/23 06/20/23 documented as of this encounter
--- OUTSIDE RECORDS SUMMARY | 2025-09-05 11:40 | XMS_ITS | Encounter Summary ---
Author Organization [facility] Address [address] [facility] 7t [place] [address] Care Team Providers Care Prepress Supervisor Name Role Phone Marycarmen Quijano MD Primary Care Provider [phone] Reason for Visit * Reason Comments Med Refill Encounter Details Date Type Department Care Team ([facility] Contact Info) Description 03/10/2023 Refill [facility] [address] [place], [place] [phone] Marycarmen Quijano MD [address] [place] [address] Primary hypertension Social History Tobacco Use Types [...] Department Care Team ([facility] Contact Info) Description 01/28/2026 1:30 PM EDT Office Visit [facility] ADULT [facility] [address] [place] [address] Santos Garciaaris [address] [place] [address] documented as of this encounter Visit Diagnoses Diagnosis Primary hypertension Unspecified essential hypertension documented in this encounter Care Teams Prepress Supervisor Relationship Specialty Start Date End Date Marycarmen Quijano MD [address] [place] [address] PCP - General Family Medicine 03/02/23 06/20/23 documented as of this encounter
--- OUTSIDE RECORDS SUMMARY | 2025-09-05 11:40 | XMS_ITS | Encounter Summary ---
Author Organization [employer] [facility] Address [address] [place] [address] 7t [place] [address] Care Team Providers Care Farmworker Cranberry Name Role Phone Marycarmen Quijano MD Primary Care Provider [phone] Reason for Visit * Reason Comments Med Refill Encounter Details Date Type Department Care Team ([facility] Contact Info) Description 03/07/2023 Refill [facility] [address] [place], [place] [phone] Marycarmen Quijano MD [address] [place], [place] [phone] Social History Tobacco Use Types Packs/Day Years [...] Upcoming Encounters Date Type Department Care Team ([facility] Contact Info) Description 01/28/2026 1:30 PM EDT Office Visit [facility] [address] [place] [address] Radha, Johana [address] [place] [address] documented as of this encounter Visit Diagnoses Not on filedocumented in this encounter Care Teams Farmworker Cranberry Relationship Specialty Start Date End Date Marycarmen Quijano MD [address] [place] [address] PCP - General Family Medicine 03/02/23 06/20/23 documented as of this encounter
--- OUTSIDE RECORDS SUMMARY | 2025-09-05 11:42 | XMS_ITS | Clinical Summary ---
Author Organization [employer] Address [address] [facility] 7t [place] [address] Care Team Providers Care Registry Np Name Role Phone Unavailable Primary Care Provider [...] BEDTIME 2 Active Blood Glucose Monitoring Suppl ([place]60.comStyle Monette Lite) w/Device kit TEST BLOOD SUGAR THREE [...] by mouth at bed time. Active Creon 18009-38663 units capsule 3 Active pantoprazole (ProtoNix) 40 [...] 3 Active ergocalciferol (Vitamin D2) 1.25 MG (87724 UT) capsule TAKE 1 CAPSULE BY MOUTH [...] [facility] ADULT [facility] [address] [place] [address] Johana Garcia Partially edentulous mandible, unspecified edentulism [...] 01/28/2026 1:30 PM EDT Office Visit [facility] ADULT [facility] [address] [place] [address] Johana Garcia [address] [place] [address] Health Maintenance Due Date Last Done Comments [...] average glucose, using the formula of the A5V-Uyquneo Average Glucose study (ADAG), Diabetes Care, Vol.31,#8, [...] [facility] Comment: NOTE: For -[place] individuals, multiply the result by 1.210. Chronic [...] Historical Provider HISTORICAL/NON ORDERABLE LABS Final Result [facility] [address] from Last 3 Months or Most Recently Relevant to Health Maintenance Insurance # [address] [place] [address] FOR[facility] SKILLED NURSING OPTIONS (O D-SNP) YASMIN FRANCO [id number] DENTAL - [facility]
--- OUTSIDE RECORDS SUMMARY | 2025-09-05 11:42 | XMS_ITS | Encounter Summary ---
Author Organization [employer] [facility] Address [address] [place] [address] 7t [place] [address] Care Team Providers Care Ax Survey Worker Name Role Phone Unavailable Primary Care Provider Unavailabl e Reason for Visit * Reason Comments Med Refill Encounter Details Date Type Department Care Team (Late Contact Info) Description 01/19/[address] [facility] [address] [place] [address] Christianne John MD [address] [place] [address] Vitamin deficiency Social History Tobacco Use Types [...] 01/28/2026 1:30 PM EDT Office Visit [facility] ADULT D[facility] [address] [place] [address] Santos Garciaaris [address] [place] [address] documented as of this encounter Visit Diagnoses Diagnosis Vitamin deficiency Unspecified vitamin deficiency documented in this encounter
--- OUTSIDE RECORDS SUMMARY | 2025-09-05 11:42 | XMS_ITS | Encounter Summary ---
Author Organization [employer] [facility] Address [address] [place] [address] [address]t [place] [address] Care Team Providers Care Riffler Tender Name Role Phone Marycarmen Quijano MD Primary Care Provider [phone] Reason for Visit * Reason Comments Med Refill Encounter Details Date Type Department Care Team ([facility] Contact Info) Description 02/06/2023 Refill [facility] [address] [place] [address] Marycarmen Quijano MD [address] [place], [place] [phone] Social History Tobacco Use Types Packs/Day Years [...] Team ([facility] Contact Info) Description 01/28/2026 1:30 PM EDT Office Visit [facility] [address] [place] [address] RadhaJohana [address] [place] [address] documented as of this encounter Visit Diagnoses Not on filedocumented in this encounter Care Teams Riffler Tender Relationship Specialty Start Date End Date Marycarmen Quijano MD [address] [place] [address] PCP - General Family Medicine 03/02/23 06/20/23 documented as of this encounter
--- OUTSIDE RECORDS SUMMARY | 2025-09-05 11:42 | XMS_ITS | Encounter Summary ---
Author Organization [employer] [facility] Address [address] [place] [address] 7t [place] [address] Care Team Providers Care Kickboxing Instructor Name Role Phone Marycarmen Quijano MD Primary Care Provider [phone] Marycarmen Quijano MD Primary Care Provider Encounter Details Date Type Department Care Team [...] Description 01/28/2026 1:30 PM EDT Office Visit [facility] [address] [place] [address] Radha, Johana [address] [place] [address] documented as of this encounter Visit Diagnoses Not on filedocumented in this encounter Care Teams Kickboxing Instructor Relationship Specialty Start Date End Date Marycarmen Quijano MD [address] [place] [address] PCP - General Family Medicine 07/26/13 02/01/23 Marycarmen Quijano MD [address] [place] [address] PCP - General Family Medicine 03/02/23 06/20/23 documented as of this encounter
--- OUTSIDE RECORDS SUMMARY | 2025-09-05 11:42 | XMS_ITS | Encounter Summary ---
Author Organization [employer] [facility] Address [address] [place] [address] [address] [place] [address] Care Team Providers Care Wellness Nurse Rn Name Role Phone Unavailable Primary Care Provider Unavailabl e Reason for Visit * Reason Comments Med Refill Encounter Details Date Type Department Care Team (Late st Contact Info) Description 12/02/2023 Refill [facility] [address] [place] [address] Christianne John MD [address] [place] [address] Moderate persistent asthma, unspecified whether complicated Social [...] Office Visit [facility] ADULT [facility] [address] [place] [address] Radha, Johana [address] [place] [address] documented as of this encounter Visit Diagnoses Diagnosis Moderate persistent asthma, unspecified whether complicated documented in this encounter
--- OUTSIDE RECORDS SUMMARY | 2025-09-05 11:42 | XMS_ITS | Encounter Summary ---
Author Organization [employer] [facility] Address [address] [place] [address] [address]t [place] [address] Care Team Providers Care Sprinkler Fitter Apprentice Name Role Phone Marycarmen Quijano MD Primary Care Provider [phone] Reason for Visit * Reason Comments Med Refill Encounter Details Date Type Department Care Team ([facility] Contact Info) Description 04/15/2023 Refill [facility] [address] [place] [address] Marycarmen Quijano MD [address] [place] [address] Social History Tobacco Use Types Packs/Day Years [...] ([facility] Contact Info) Description 01/28/2026 1:30 PM EDT Office Visit [facility] ADULT DENT[facility] [address] [place] [address] RadhaJoahna [address] [place] [address] documented as of this encounter Visit Diagnoses Not on filedocumented in this encounter Care Teams Sprinkler Fitter Apprentice Relationship Specialty Start Date End Date Marycarmen Quijano MD [address] [place] [address] PCP - General Family Medicine 03/02/23 06/20/23 documented as of this encounter
--- OUTSIDE RECORDS SUMMARY | 2025-09-05 11:42 | XMS_ITS | Patient Health Record ---
Author Organization [facility] Address [address] [place] [address] Care Team Providers Care Category Consultant Name Role Phone Jaime VORA, Shelby Primary Care Provider Unavail able Randy Leal Unavailable [phone] Allergies Allergen (clinical drug ingredient) Drug/Non Drug [...] Problem Acquired hammer toe of right foot (0456278439194306 ) Other hammer toe(s) (acquired), right foot (M20.41) Active confirmed Problem Acquired hammer toe of left foot ([id number] ) Other hammer toe(s) (acquired), left foot (M20.42) Active confirmed Problem Polyneuropathy due to type 2 diabetes mellitus (952939447) Type 2 diabetes mellitus with diabetic polyneuropathy (E11.42) Active confirmed Vital Signs Blood pressure diastolic 65 mm Hg 07/24/2025 Height 4 ft 9 in in 07/24/2025 Blood pressure systolic 130 mm Hg 07/24/2025 Weight 182 lbs 07/24/2025 BMI 39.38 kg/m2 07/24/2025 Procedures Procedure Date Ordered Date Performed Result Body Sit e 58106-DIPETDZ NAIL, 6 OR MORE 12/26/2024 N/A 27952-Wmkkpugx Plate 12/26/2024 N/A 45129-HOSX SKIN LESIONS, 2 TO 4 12/26/2024 N/A 44079-CUIDOGL NAIL, 6 OR MORE 04/24/2025 N/A 18506-UPSA SKIN LESIONS, 2 TO 4 04/24/2025 N/A 34601-GNCNRIE NAIL, 6 OR MORE 07/24/2025 N/A 73505-AWYO SKIN LESIONS, 2 TO 4 07/24/2025 N/A Encounters Encounter Location Date Provider Diagnosis [address] [address] 12/26/2024 Randy Leal Type 2 diabetes mellitus with diabetic polyneuropathy E11.42 ; Tinea unguium B35.1 ; Other hammer toe(s) (acquired), right foot M20.41 ; Other hammer toe(s) (acquired), left foot M20.42 and Subungual hematoma of left foot, initial encounter S90.222A [address] [address] 04/24/2025 Randy Leal Type 2 diabetes mellitus with diabetic polyneuropathy E11.42 ; Tinea unguium B35.1 and Xerosis of skin L85.[address] [address] 07/24/2025 Randy Leal Type 2 diabetes mellitus with diabetic polyneuropathy E11.42 ; Tinea unguium B35.1 and Xerosis of skin L85.[address] [address] 09/19/2024 Randy Leal [address] [address] 12/26/2024 Randy Leal [address] [address] 03/27/2025 Randy Leal Assessments Encounter Date Diagnosis [...] Treatment Pending Test Test Name Order Date 33768-RUSYFTF NAIL, 6 OR MORE 03/17/2024 81775-DXIATEL NAIL, 6 OR MORE 06/16/2024 20546-OVFXLVC NAIL, 6 OR MORE 12/26/2024 74655-ZWLMRZJ NAIL, 6 OR MORE 04/24/2025 08882-FAZFTPF NAIL, 6 OR MORE 07/24/2025 08370-Saguekxw Plate 12/26/2024 64515-AVHE SKIN LESIONS, 2 TO 4 07/24/20 25 65525-EEUR SKIN LESIONS, 2 TO 4 04/24/20 25 04296-TSFP SKIN LESIONS, 2 TO 4 12/27/19 25 27814-EJSB SKIN LESIONS, 2 TO 4 06/16/20 24 26244-LQAO SKIN LESIONS, 2 TO 4 03/17/20 24 Next Appt Details Provider Name:Randy Leal , 11/20/2025 03:00:00 PM, [address] [place] [address], [id number], Insurance Providers Payer Name Payer Address Payer Phone Subscriber Number Group Number Insured Name Patient Relationship to Insured Coverage Start Date Coverage End Date [facility] [employer] Claims [address] [place] [id number] [id number] Katherine Jamil Self - patient is the insured Medical (General) History Medical History History ICD Code Anxiety Arthritis asthma Back,Hip,and Knee pain CAD (Cholesterol) Cataracts Depression Diabetic Heart disease High blood pressure Kidney disease Lung disease Numbness Poor circulation Reflux ( GERD) sinusitis Vascular phlebitis (clots) Chicken pox Replacement Heart Valves Transfusions Surgical History Surgery Date(Month/Year)
--- OUTSIDE RECORDS SUMMARY | 2025-09-05 11:42 | XMS_ITS | Encounter Summary ---
Author Organization [employer] [facility] Address [address] [place] [address] [address] [place] [address] Care Team Providers Care Rn Production Name Role Phone Marycarmen Quijano MD Primary Care Provider [phone] Marycarmen Quijano MD Primary Care Provider [phone] Reason for Visit * Reason Comments Med Refill Encounter Details Date Type Department Care Team (Late st Contact Info) Description 11/10/2022 Refill [facility] MEDICINE [address] [place], [place] [phone] Marycarmen Quijano MD [address] [place], [place] [phone] Social History Tobacco Use Types Packs/Day Years [...] 1:30 PM EDT Office Visit [facility] ADULT DENTAL [address] [place], [place] [phone] Radha, Johana [address] [place] [address] documented as of this encounter Visit Diagnoses Not on filedocumented in this encounter Care Teams Rn Production Relationship Specialty Start Date End Date Marycarmen Quijano MD [address] [place] [address] PCP - General Family Medicine 07/26/13 02/01/23 Marycarmen Quijano MD [address] [place] [address] PCP - General Family Medicine 03/02/23 06/20/23 documented as of this encounter
--- OUTSIDE RECORDS SUMMARY | 2025-09-05 11:42 | XMS_ITS | Encounter Summary ---
Author Organization [employer] [facility] Address [address] [place] [address] [address] [place] [address] Care Team Providers Care Tonger Name Role Phone Unavailable Primary Care Provider Unavailabl e Reason for Visit * Reason Comments Med Refill Encounter Details Date Type Department Care Team (Late st Contact Info) Description 12/01/2023 Refill [facility] MEDICINE [address] [place] [address] Christianne John MD [address] [place] [address] Moderate persistent asthma, unspecified whether complicated Social [...] Description 01/28/2026 1:30 PM EDT Office Visit [facility] ADULT DENTAL [address] [place] [address] Radha, Johana [address] [place] [address] documented as of this encounter Visit Diagnoses Diagnosis Moderate persistent asthma, unspecified whether complicated documented in this encounter
--- OUTSIDE RECORDS SUMMARY | 2025-09-05 11:43 | XMS_ITS | Encounter Summary ---
Author Organization [employer] [facility] Address [address] [place] [address] 7[address] [place] [address] Care Team Providers Care Site Leader Name Role Phone Unavailable Primary Care Provider Unavailabl e Reason for Visit * Reason Comments Med Refill Encounter Details Date Type Department Care Team (Late st Contact Info) Description 11/29/2023 Refill [facility] MEDICINE [address] [place] [address] Christianne John MD [address] [place] [address] Moderate persistent asthma, unspecified whether complicated Social [...] Description 01/28/2026 1:30 PM EDT Office Visit [facility] ADULT DENTAL [address] [place] [address] Radha, Johana [address] [place] [address] documented as of this encounter Visit Diagnoses Diagnosis Moderate persistent asthma, unspecified whether complicated documented in this encounter
--- OUTSIDE RECORDS SUMMARY | 2025-09-05 11:43 | XMS_ITS | Encounter Summary ---
Author Organization [facility] [facility] Address [address] [place] [address] 7[address] [place] [address] Care Team Providers Care Marketing Reporting Analyst Name Role Phone Unavailable Primary Care Provider Unavailabl e Reason for Visit * Reason Comments Med Refill Encounter Details Date Type Department Care Team (Late st Contact Info) Description 11/24/2023 Refill [facility] MEDICINE [address] [place] [address] Christianne John MD [address] [place] [address] Moderate persistent asthma, unspecified whether complicated Social [...] Description 01/28/2026 1:30 PM EDT Office Visit [facility] ADULT DENTAL [address] [place] [address] Radha, Johana [address] [place] [address] documented as of this encounter Visit Diagnoses Diagnosis Moderate persistent asthma, unspecified whether complicated documented in this encounter
== END 2025-09-05 11:05 | disposition home or self-care (01) ==
LOC: HO.HGI 10:15
PROVIDERS: PCP Internal Medicine; Visit Provider Nurse Practitioner Family
DX: K21.9 Gastro-esophageal reflux disease without esophagitis (principal); R13.19 Other dysphagia; K86.89 Other specified diseases of pancreas; R10.11 Right upper quadrant pain; R10.9 Unspecified abdominal pain
CPT/HCPCS: 99213

== ENCOUNTER → 2025-09-05 10:14 | Outpatient (BNVA) | payer OTHER, SELFPAY | PROVIDERS: PCP Internal Medicine; Visit Provider Nurse Practitioner Family | DX: K21.9 Gastro-esophageal reflux disease without esophagitis (principal); K86.89 Other specified diseases of pancreas; R13.19 Other dysphagia; R10.11 Right upper quadrant pain; Z79.899 Other long term (current) drug therapy | CPT/HCPCS: 99212 ==

== ENCOUNTER 2025-09-18 09:37 | Outpatient (AMB) | payer OTHER, SELFPAY ==
--- OUTSIDE RECORDS SUMMARY | 2024-03-31 04:30 | XMS_ITS ---
Author Organization [facility] Address [address] [place] [address] Care Team Providers Care Baggagemaster Name Role Phone Jaime VORA, Shelby Primary Care Provider Unavail Randy Marshall Unavailable [phone] REASON FOR VISIT Seen Sooner Encounters Encounter Location Date Provider Diagnosis [facility] [address] [place] [address] 03/31/2024 Randy Leal Plan Of Treatment Next Appt Details Provider Name:Randy Leal , 11/20/2025 03:00:00 PM, [address] [place], [address], Progress Notes * Katherine DIASDOB: [birth year] (80 yo F)Acc No.[id number]:03/31/2024 Progress Notes Patient: Katherine FARMER Provider: Adelina Leal DPM :1945 A ge:78 Y S ex:Female Date:03/31/2024 Address:[address] [place], [place] [id number] Pcp:Shelby Sandoval MD Subjective: * Chief Complaints: [...] 03/31/2024 Generated for Herber olea/Eduardo on: 1 11/19/2024 11:25 AM EST
--- OUTSIDE RECORDS SUMMARY | 2024-09-19 05:00 | XMS_ITS ---
Author Organization [facility] Address [address] [place] [address] Care Team Providers Care Procurement Coordinator Name Role Phone Jaime VORA, Shelby Primary Care Provider Unavail Randy Marshall Unavailable [phone] Encounters Encounter Location Date Provider Diagnosis [address] [address] 09/19/2024 Randy Leal Plan Of Treatment Next Appt Details Provider Name:Randy Leal , 11/20/2025 03:00:00 PM, [address] [place], [address], Progress Notes * ERMELINDAKatherine SORIADOB: 5 (80 yo F)Acc No.[id number]:09/19/2024 Progress Note Patient: Katherine FARMER Provider: Adelina Leal DPM :1945 A ge:79 Y S ex:Female Date:09/19/2024 Address:[address] [place], [place] [id number] Pcp:Shelby Sandoval MD Subjective: * Chief Complaints: [...] 11/20/2023 Generated for Herber olea/Rolando/Nickoitting on: 1 11/19/2024 11:24 AM EST
--- OUTSIDE RECORDS SUMMARY | 2025-03-27 04:30 | XMS_ITS ---
Author Organization [facility] Address [address] [place] [address] Care Team Providers Care Overnight Houseperson Name Role Phone Jaime VORA, Shelby Primary Care Provider Unavail Randy Marshall Unavailable [phone] Encounters Encounter Location Date Provider Diagnosis [address] [address] 03/27/2025 Randy Leal Plan Of Treatment Next Appt Details Provider Name:Randy Leal , 11/20/2025 03:00:00 PM, [address] [place], [address], Progress Notes * CLAYKatherine BATRESDOB: 5 (80 yo F)Acc No.[id number]:03/27/2025 Progress Note Patient: Katherine FARMER Provider: Adelina Leal DPM :1945 A ge:79 Y S ex:Female Date:03/27/2025 Address:[address] [place], [place] [id number] Pcp:Shelby Sandoval MD Subjective: * Chief Complaints: [...] 03/27/2025 Generated for Herber olea/Rolando/Emely on: 1 11/19/2024 11:24 AM EST
[2025-09-18 09:39] VITALS: BP 140/50; PULSE 62; O2SAT 99; BMI 38.9
--- NOTE | 2025-09-18 09:39 | HO.NEPHOV_ITS ---
Vital Signs 09/18/25 09:39 Height 4 ft 9 in Weight 180 lb BMI 38.9 BP 140/50 H Blood Pressure Location Lt brachial Position Sitting Pulse 62 Pulse Source Pulse Oximeter Pulse Oximetry (%) 99 Oxygen Delivery Method Room Air Intake Visit Reasons: 3mnth w labs-LM Auto Slip Cover Installer Required: No Auto Slip Cover Installer Services: Auto Slip Cover Installer Offered & Declined (Daughter will translate) Accompanied by: Daughter Allergies ibuprofen (From Motrin) Allergy (Intermediate, Verified 09/18/25 09:43) High Blood Pressure, Rash oxycodone (From Percocet) Allergy (Intermediate, Verified 09/18/25 09:43) Itching tirzepatide (From Mounjaro) Adverse Reaction (Severe, Verified 09/18/25 09:43) Diarrhea Medication List - Last Reconciled 09/18/25 by Bam Barragan MD acetaminophen ER 1,300 mg (2 x 650 mg) PO Q8H PRN 30 days albuterol sulfate 90 mcg/actuation 2 inhalations inhalation Q6H PRN 30 days amlodipine 10 mg PO DAILY aspirin 81 mg PO BEDTIME 90 days atorvastatin 80 mg PO BEDTIME 90 days blood pressure monitor As directed blood sugar diagnostic (FreeStyle Lite Strips) Use daily As directed to check blood glucose blood sugar diagnostic (FreeStyle Lite Strips) 3times a day blood-glucose meter (FreeStyle [place] Lite kit) As directed blood-glucose meter (FreeStyle Lite Meter kit) Use daily As directed to check blood sugars blood-glucose sensor (Dexcom G7 Sensor device) Use daily As directed to monitor blood glucose. Change q 10 days blood-glucose,bookkeeping clerk,cont (Dexcom G7 Small Business Consultant) use daily As directed to monitor blood glucose brimonidine 0.2% 1 drp ophthalmic (eye) TID calcium acetate(phosphat bind) 667 mg PO BID 90 days cane As directed cholecalciferol (vitamin D3) 25 mcg PO DAILY 3 months clopidogrel 75 mg PO DAILY [Diabetic shoes with inserts As directed] disposable gloves As directed esomeprazole magnesium (Nexium) 40 mg PO DAILY ferrous sulfate 325 mg PO .once a week 90 days fluticasone propionate 50 mcg/actuation 1 spray intranasal DAILY PRN 30 days dtjccwbjrfo-fcxgmzwyd-metwvcmt 200-62.5-25 mcg (Trelegy Ellipta) 1 inh inhalation DAILY 30 days folic acid 1 mg PO QAM 90 days FreeStyle Lancets (lancets) 3 times a day NS gabapentin 300 mg PO BEDTIME 90 days glucagon 3 mg/actuation (Baqsimi) mg intranasal hydralazine 25 mg PO TID 90 days hydrocortisone 1% (Anti-Itch (hydrocortisone)) 1 appl topical BID PRN 4 weeks [incomtinemce liner pads As directed] insulin glargine U-300 conc (Toujeo SoloStar U-300 Insulin) 24 units (0.08 mL) subcut DAILY 90 days ipratropium-albuterol 0.5 mg-3 mg(2.5 mg base)/3 mL 3 mL inhalation RQ4H WHILE AWAKE ketoconazole 2% 1 appl topical 2XW 30 days lancets (TRUEplus Lancets) As directed test 4 times a day lancets (FreeStyle Lancets) use daily as directed to check blood glucose latanoprost 0.005% 1 drp ophthalmic (eye) QPM losartan 25 mg PO DAILY 90 days meclizine (Travel-Ease (meclizine)) 12.5 mg (1/2 x 25 mg) PO BID PRN methylcellulose (laxative) (Citrucel) 500 mg PO DAILY montelukast 10 mg PO QPM 90 days Novolog FlexPen U-100 Insulin (insulin aspart U-100) 4 units (0.04 mL) subcut TID NS Oxygen Home Use As directed pen needle, diabetic (BD Sia 2nd Gen Pen Needle) 5 times a day semaglutide (Ozempic) 2 mg (0.75 mL) subcut QWEEK simethicone (Gas Relief (simethicone)) 125 mg PO BID PRN 90 days sucralfate 1 g PO BID PRN torsemide 20 mg PO BID [wipes As directed] HPI Comments Details: Elderly woman with a history of longstanding diabetes mellitus and hypertension with congestive heart failure has been referred for CKD. She has a history of CKD. She has baseline creatinine of 1.4 mg/dL. She has had episodes of ARLEY due to hypoperfusion in setting of heart failure. Today she is accompanied by her daughter. She complains of low back pain. No dysuria urgency increased frequency. No shortness of breath. No diarrhea constipation. All other systems were reviewed. 03/07/25 79-year-old female presenting with chronic back pain and evaluation of renal dysfunction. The back pain has persisted for over three weeks and is correlated with findings from a May X-ray that indicated arthritis. She was prescribed Tylenol by her primary care provider, though adherence is uncertain. Additionally, she is monitored for renal dysfunction, with recent kidney function levels reported at 36% after a previous drop to 28%. She has been advised against NSAID use due to the potential risk to kidney function, and an ultrasound of the kidney is planned to investigate further. The patient's diabetes is poorly controlled with blood glucose readings at 8%. 06/18/25 The patient is an 80-year-old female presenting with chronic kidney disease and diabetes mellitus. Chronic kidney disease is stable with a kidney function of 32%. Nephrolithiasis was noted last year without obstruction, and a repeat ultrasound is planned. Diabetes mellitus is controlled with an A1c of 7.1%. Losartan is used to manage proteinuria, which has improved. Hypertension is controlled with losartan, and blood pressure is satisfactory. Persistent back pain is reported. Medications: - Losartan: for hypertension and proteinuria management Diagnostic Results: - Labs: Kidney function at 32% - Labs: Hemoglobin A1c at 7.1% - Imaging: Previous ultrasound showed nephrolithiasis without obstruction [facility] Medical History Mass of buttock Pelvic pain T2DM (type 2 diabetes mellitus) Acute exacerbation of CHF (congestive heart failure) Acute on chronic diastolic (congestive) heart failure Acute exacerbation of CHF (congestive heart failure) Acute respiratory failure with hypoxia Flash pulmonary edema Dyspnea Furuncle Vulvar itching Vaginal lump Pleural effusion Exocrine pancreatic insufficiency Renal cyst, acquired, right Back pain Vitamin D deficiency HLD (hyperlipidemia) JOSE (obstructive sleep apnea) 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 Aortic stenosis CKD (chronic kidney disease) stage 3, GFR 30-59 ml/min Dyslipidemia Diabetic polyneuropathy associated with type 2 diabetes mellitus Diabetic nephropathy associated with type 2 diabetes mellitus Chronic kidney disease Hypertension Asthma Thalamic pain syndrome GERD (gastroesophageal reflux disease) Morbid obesity Surgical History H/O colonoscopy H/O aortic valve replacement History of breast lump/mass excision History of tubal ligation History of cholecystectomy Family History Sister History of renal pelvis cancer Father Suicide Mother Lung disease Diabetes mellitus Social History Household Members: Family Housing: House Do you presently have visiting nurse or other home services: Yes (yarn texture 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 Patient Tobacco Use Status: Former Tobacco user Tobacco use type: Cigarette Years Smoked: 5 years e-Cigarette/Vaping Use: Never Used Second Hand Smoke Exposure: No service: No Current occupational status: unemployed and disabled Gender identity: Female Cognitive needs: Yes Hearing needs: No Vision needs: No Female Reproductive History Menstrual Age of Menarche: 10 Physical Exam Vital Signs: Last Vital Signs Pulse 62 09/18/25 09:39 BP 140/50 H 09/18/25 09:39 Pulse Ox 99 09/18/25 09:39 Oxygen Delivery Method Room Air 09/18/25 09:39 BMI result Body Mass Index 38.9 Comfortable Neck supple no JVD. Lungs entry equal no rales. Heart S1-S2 heard no gallop or rub. Abdomen soft nontender. Neuro alert awake oriented. No asterixis. Extremities no edema. Results Reviewed Nephrology Results: Urine Protein, (Neg-Trace) 300 (3+) mg/dL H 08/09/25 Renal US 06/29/25 Assessment & Plan Assessment & Plan (1) CKD (chronic kidney disease) stage 3, GFR 30-59 ml/min: Code(s): N18.30 - Chronic kidney disease, stage 3 unspecified Category: Medical Qualifiers: Chronic kidney disease stage 3 subtype: stage 3b (GFR 30-44) Qualified Code(s): N18.32 - Chronic kidney disease, stage 3b Plan: Renal function close to baseline Volume status acceptable Goal is to slow the progression of CKD Maintain blood pressure less than 130/80 Maintain A1c less than 7% She needs weight loss. Might benefit from SGLT2 inhibitors. Continue to avoid nephrotoxic agents including NSAIDs (2) Proteinuria: Comment: underlying diabetic kidney disease. Code(s): R80.9 - Proteinuria, unspecified Category: Medical Plan: Goal is to slow the portion disease Continue with RAAS inhibition. (3) Renal cyst, acquired, right: Comment: Simple cyst Code(s): N28.1 - Cyst of kidney, acquired Category: Medical Plan: Due to low back pain and recent bump in creatinine, will obtain follow up USG She will follow as needed (4) Anemia: Code(s): D64.9 - Anemia, unspecified Category: Medical Qualifiers: Anemia type: other cause Other causes of anemia: other cause, not classified Qualified Code(s): D64.89 - Other specified anemias Plan: Multifactorial. Erythropoietin deficiency could be playing a role. Follow iron stores and see if she needs iron replacement (5) Hypertension: Code(s): I10 - Essential (primary) hypertension Category: Medical Plan: BP at goal Stay on low salt diet No change in meds Orders: Orders Complete Blood Count no Diff Today I10 - Essential (primary) hypertension, N18.32 - Chronic kidney disease, stage 3b, R80.9 - Proteinuria, unspecified Comprehensive Met. Panel Today I10 - Essential (primary) hypertension, N18.32 - Chronic kidney disease, stage 3b, R80.9 - Proteinuria, unspecified Creatinine Urine Today I10 - Essential (primary) hypertension, N18.32 - Chronic kidney disease, stage 3b, R80.9 - Proteinuria, unspecified Total Protein Urine Random Today I10 - Essential (primary) hypertension, N18.32 - Chronic kidney disease, stage 3b, R80.9 - Proteinuria, unspecified UA and rflx microscopic Today I10 - Essential (primary) hypertension, N18.32 - Chronic kidney disease, stage 3b, R80.9 - Proteinuria, unspecified Coding Level of Care Code Est Pt Level 4 (62730) Diagnoses Stage 3b chronic kidney disease N18.32 Chronic kidney disease stage 3 subtype: stage 3b (GFR 30-44) Proteinuria R80.9 Renal cyst, acquired, right N28.1 Anemia due to other cause, not classified D64.89 Anemia type: other cause Other causes of anemia: other cause, not classified Essential hypertension I10
--- OUTSIDE RECORDS SUMMARY | 2025-09-18 11:21 | XMS_ITS | Encounter Summary ---
Author Organization [employer] Address [address] [place] [address] [address] [place] [address] Care Team Providers Care Midlevel Provider Name Role Phone Marycarmen Quijano MD Primary Care Provider [phone] Reason for Visit * Reason Comments Med Refill Encounter Details Date Type Department Care Team ([facility] Contact Info) Description 03/07/2023 Refill [facility] MED & PEDS [address] [place], [place] [phone] Marycarmen Quijano MD [address] [place], [place] [phone] Social History Tobacco Use Types Packs/Day Years [...] Date Type Department Care Team ([facility] Contact Info) Description 01/28/2026 1:30 PM EDT Office Visit [facility] ADULT DENTAL [address] [place] [address] Radha, Johana [address] [place] [address] documented as of this encounter Visit Diagnoses Not on filedocumented in this encounter Care Teams Midlevel Provider Relationship Specialty Start Date End Date Marycarmen Quijano MD [address] [place] [address] PCP - General Family Medicine 03/02/23 06/20/23 documented as of this encounter
--- OUTSIDE RECORDS SUMMARY | 2025-09-18 11:23 | XMS_ITS | Encounter Summary ---
Author Organization [employer] [facility] Address [address] [place] [address] 7t [place] [address] Care Team Providers Care University President Name Role Phone Marycarmen Quijano MD Primary Care Provider [phone] Reason for Visit * Reason Comments Med Refill Encounter Details Date Type Department Care Team ([facility] Contact Info) Description 04/15/2023 Refill [facility] MEDICINE [address] [place] [address] Marycarmen Quijano MD [address] [place] [address] Social History Tobacco Use Types Packs/Day Years [...] Encounters Date Type Department Care Team ([facility] Contact Info) Description 01/28/2026 1:30 PM EDT Office Visit [facility] ADULT DENTAL [address] [place] [address] RadhaJohana [address] [place] [address] documented as of this encounter Visit Diagnoses Not on filedocumented in this encounter Care Teams University President Relationship Specialty Start Date End Date Marycarmen Quijano MD [address] [place] [address] PCP - General Family Medicine 03/02/23 06/20/23 documented as of this encounter
--- OUTSIDE RECORDS SUMMARY | 2025-09-18 11:24 | XMS_ITS | Encounter Summary ---
Author Organization [employer] Address [address] [facility] 7t [place] [address] Care Team Providers Care Livestock Speculator Name Role Phone Marycarmen Quijano MD Primary Care Provider [phone] Reason for Visit * Reason Comments Med Refill Encounter Details Date Type Department Care Team ([facility] Contact Info) Description 04/12/2023 Refill [facility] [address] [place] [address] Jose Johnson MD [address] [place] [address] Social History Tobacco Use Types Packs/Day Years [...] Care Team ([facility] Contact Info) Description 01/28/2026 1:30 PM EDT Office Visit [facility] ADULT DENTAL [address] [place] [address] RadhaJohana [address] [place] [address] documented as of this encounter Visit Diagnoses Not on filedocumented in this encounter Care Teams Livestock Speculator Relationship Specialty Start Date End Date Marycarmen Quijano MD [address] [place] [address] PCP - General Family Medicine 03/02/23 06/20/23 documented as of this encounter
--- OUTSIDE RECORDS SUMMARY | 2025-09-18 11:24 | XMS_ITS | Patient Health Record ---
Author Organization [facility] Address [address] [place] [address] Care Team Providers Care Lens Maker Name Role Phone Jaime VORA, Shelby Primary Care Provider Unavail able Randy Leal Unavailable [phone] Allergies Allergen (clinical drug ingredient) Drug/Non Drug [...] Problem Acquired hammer toe of right foot (5626399829136540 ) Other hammer toe(s) (acquired), right foot (M20.41) Active confirmed Problem Acquired hammer toe of left foot (7071110433555489 ) Other hammer toe(s) (acquired), left foot (M20.42) Active confirmed Problem Polyneuropathy due to type 2 diabetes mellitus (086720501) Type 2 diabetes mellitus with diabetic polyneuropathy (E11.42) Active confirmed Vital Signs Blood pressure diastolic 65 mm Hg 07/24/2025 Height 4 ft 9 in in 07/24/2025 Blood pressure systolic 130 mm Hg 07/24/2025 Weight 182 lbs 07/24/2025 BMI 39.38 kg/m2 07/24/2025 Procedures Procedure Date Ordered Date Performed Result Body Sit e 45723-AOIEHCM NAIL, 6 OR MORE 12/26/2024 N/A 46663-Viyllnua Plate 12/26/2024 N/A 66730-DOAV SKIN LESIONS, 2 TO 4 12/26/2024 N/A 39502-XTATFQV NAIL, 6 OR MORE 04/24/2025 N/A 95298-DUAM SKIN LESIONS, 2 TO 4 04/24/2025 N/A 98795-PDRKBMW NAIL, 6 OR MORE 07/24/2025 N/A 30645-YMPW SKIN LESIONS, 2 TO 4 07/24/2025 N/A Encounters Encounter Location Date Provider Diagnosis [address] [address] 12/26/2024 Randy Leal Type 2 diabetes mellitus with diabetic polyneuropathy E11.42 ; Tinea unguium B35.1 ; Other hammer toe(s) (acquired), right foot M20.41 ; Other hammer toe(s) (acquired), left foot M20.42 and Subungual hematoma of left foot, initial encounter S90.222A [address] [address] 04/24/2025 Randy Leal Type 2 diabetes mellitus with diabetic polyneuropathy E11.42 ; Tinea unguium B35.1 and Xerosis of skin L85.[address] [address] 07/24/2025 Randy Leal Type 2 diabetes mellitus with diabetic polyneuropathy E11.42 ; Tinea unguium B35.1 and Xerosis of skin L85.[address] [address] 09/19/2024 Randy Leal [address] [address] 12/26/2024 Randy Leal [address] [address] 03/27/2025 Randy Leal Assessments Encounter Date Diagnosis [...] Treatment Pending Test Test Name Order Date 45269-YLILPGA NAIL, 6 OR MORE 03/17/2024 27701-RVGEJFG NAIL, 6 OR MORE 06/16/2024 77197-TLHBDEF NAIL, 6 OR MORE 12/26/2024 76298-MJEFVHN NAIL, 6 OR MORE 04/24/2025 00296-FBJVJRM NAIL, 6 OR MORE 07/24/2025 02539-Wzosztml Plate 12/26/2024 70381-UIQP SKIN LESIONS, 2 TO 4 07/24/20 25 28456-TWPA SKIN LESIONS, 2 TO 4 04/24/20 25 41074-DSTH SKIN LESIONS, 2 TO 4 12/27/19 25 64580-CMMQ SKIN LESIONS, 2 TO 4 06/16/20 24 69982-RHYE SKIN LESIONS, 2 TO 4 03/17/20 24 Next Appt Details Provider Name:Randy Leal , 11/20/2025 03:00:00 PM, [address] [place] [address], [phone], Insurance Providers Payer Name Payer Address Payer Phone Subscriber Number Group Number Insured Name Patient Relationship to Insured Coverage Start Date Coverage End Date [facility] [employer] Claims [address] YAS[place] [id number] Katherine Jamil Self - patient is the insured Medical (General) History Medical History History ICD Code Anxiety Arthritis asthma Back,Hip,and Knee pain CAD (Cholesterol) Cataracts Depression Diabetic Heart disease High blood pressure Kidney disease Lung disease Numbness Poor circulation Reflux ( GERD) sinusitis Vascular phlebitis (clots) Chicken pox Replacement Heart Valves Transfusions Surgical History Surgery Date(Month/Year)
--- OUTSIDE RECORDS SUMMARY | 2025-09-18 11:24 | XMS_ITS | Encounter Summary ---
Author Organization [employer] [facility] Address [address] [place] [address] 7t [place] [address] Care Team Providers Care Welding Machine Operator Ultrasonic Name Role Phone Marycarmen Quijano MD Primary Care Provider [phone] Reason for Visit * Reason Comments Med Refill Encounter Details Date Type Department Care Team ([facility] Contact Info) Description 02/06/[address] [facility] MEDICINE [address] [place] [address] Marycarmen Quijano MD [address] [place] [address] Social History Tobacco Use Types Packs/Day Years [...] Encounters Date Type Department Care Team ([facility] Contact Info) Description 01/28/2026 1:30 PM EDT Office Visit [facility] ADULT DENTAL [address] [place] [address] RadhaJohana [address] [place] [address] documented as of this encounter Visit Diagnoses Not on filedocumented in this encounter Care Teams Welding Machine Operator Ultrasonic Relationship Specialty Start Date End Date Marycarmen Quijano MD [address] [place] [address] PCP - General Family Medicine 03/02/23 06/20/23 documented as of this encounter
--- OUTSIDE RECORDS SUMMARY | 2025-09-18 11:24 | XMS_ITS | Encounter Summary ---
Author Organization [employer] [facility] Address [address] [place] [address] [address] [place] [address] Care Team Providers Care Environmental Communications Specialist Name Role Phone Marycarmen Quijano MD Primary Care Provider [phone] Marycarmen Quijano MD Primary Care Provider [phone] Reason for Visit * Reason Comments Med Refill Encounter Details Date Type Department Care Team (Late st Contact Info) Description 11/10/2022 Refill [facility] MEDICINE [address] [place], [place] [phone] Marycarmen Quijano MD [address] [place], [place] [phone] Social History Tobacco Use Types Packs/Day Years [...] Description 01/28/2026 1:30 PM EDT Office Visit [facility] ADULT DENTAL [address] [place], [place] [phone] Radha, Johana [address] [place] [address] documented as of this encounter Visit Diagnoses Not on filedocumented in this encounter Care Teams Environmental Communications Specialist Relationship Specialty Start Date End Date Marycarmen Quijano MD [address] [place] [address] PCP - General Family Medicine 07/26/13 02/01/23 Marycarmen Quijano MD [address] [place] [address] PCP - General Family Medicine 03/02/23 06/20/23 documented as of this encounter
--- OUTSIDE RECORDS SUMMARY | 2025-09-18 11:24 | XMS_ITS | Encounter Summary ---
Author Organization [employer] [facility] Address [address] [place] [address] 7[address] [place] [address] Care Team Providers Care Daylight Driller Name Role Phone Marycarmen Quijano MD Primary Care Provider Reason for Visit * Reason Comments Med Refill Encounter Details Date Type Department Care Team ([facility] Contact Info) Description 04/04/2023 Refill [facility] MEDICINE [address] [place] [address] aMrycarmen Quijano MD [address] [place] [address] Social History Tobacco Use Types Packs/Day Years [...] Upcoming Encounters Date Type Department Care Team ([facility] Contact Info) Description 01/28/2026 1:30 PM EDT Office Visit [facility] ADULT DENTAL [address] [place] [address] RadhaJohana [address] [place] [address] documented as of this encounter Visit Diagnoses Not on filedocumented in this encounter Care Teams Daylight Driller Relationship Specialty Start Date End Date Marycarmen Quijano MD [address] [place] [address] PCP - General Family Medicine 03/02/23 06/20/23 documented as of this encounter
--- OUTSIDE RECORDS SUMMARY | 2025-09-18 11:24 | XMS_ITS | Encounter Summary ---
Author Organization [employer] Address [address]t [place] [address] Care Team Providers Care Water Pump Servicer Name Role Phone Marycarmen Quijano MD Primary Care Provider [phone] Reason for Visit * Reason Comments Med Refill Encounter Details Date Type Department Care Team ([facility] Contact Info) Description 03/10/2023 Refill [facility] MED & PEDS [address] [place], [place] [phone] Marycarmen Quijano MD [address] [place] [address] Primary hypertension Social History Tobacco Use Types [...] [facility] Contact Info) Description 01/28/2026 1:30 PM EDT Office Visit [facility] ADULT DENTAL [address] [place] [address] Santos Garciaaris [address] [place] [address] documented as of this encounter Visit Diagnoses Diagnosis Primary hypertension Unspecified essential hypertension documented in this encounter Care Teams Water Pump Servicer Relationship Specialty Start Date End Date Marycarmen Quijano MD [address] [place] [address] PCP - General Family Medicine 03/02/23 06/20/23 documented as of this encounter
--- OUTSIDE RECORDS SUMMARY | 2025-09-18 11:25 | XMS_ITS | Clinical Summary ---
Author Organization [employer] Address [address] [facility] 7t [place] [address] Care Team Providers Care Strategic Marketing Specialist Name Role Phone Unavailable Primary Care [...] BEDTIME 2 Active Blood Glucose Monitoring Suppl (GameWithStyle [place] Lite) w/Device kit TEST BLOOD SUGAR THREE [...] by mouth at bed time. Active Creon 80121-08639 units capsule 3 Active pantoprazole (ProtoNix) 40 [...] 3 Active ergocalciferol (Vitamin D2) 1.25 MG (41908 UT) capsule TAKE 1 CAPSULE BY MOUTH [...] Description 07/25/2025 10:15 AM EDT Office Visit [facility] ADULT DENTAL [address] [place] [address] Johana Garcia Partially edentulous mandible, unspecified edentulism [...] PM EDT Office Visit [facility] ADULT DENTAL [address] [place] [address] Johana Garcia [address] [place] [address] Health Maintenance Due Date Last Done Comments [...] average glucose, using the formula of the R9D-Bixrdqh Average Glucose study (ADAG), Diabetes Care, Vol.31,#8, [...] [facility] Comment: NOTE: For -Greek individuals, multiply the result by 1.210. Chronic [...] Provider HISTORICAL/NON ORDERABLE LABS Final Result [facility] [address] from Last 3 Months or Most Recently Relevant to Health Maintenance Insurance # [address] [place] [address] [facility] FDC OPTIONS (O D-SNP) YASMIN FRANCO [id number] DENTAL - [facility]
--- OUTSIDE RECORDS SUMMARY | 2025-09-18 11:25 | XMS_ITS | Encounter Summary ---
Author Organization [employer] [facility] Address [address] [place] [address] 7t [place] [address] Care Team Providers Care Blacktop Paver Operator Name Role Phone Unavailable Primary Care Provider Unavailabl e Reason for Visit * Reason Comments Med Refill Encounter Details Date Type Department Care Team (Late st Contact Info) Description 12/02/2023 Refill [facility] MEDICINE [address] [place] [address] Christianne John MD [address] [place] [address] Moderate persistent asthma, unspecified whether complicated Social [...] 01/28/2026 1:30 PM EDT Office Visit [facility] ADULT DENTAL [address] [place] [address] Radha, Johana [address] [place] [address] documented as of this encounter Visit Diagnoses Diagnosis Moderate persistent asthma, unspecified whether complicated documented in this encounter
--- OUTSIDE RECORDS SUMMARY | 2025-09-18 11:25 | XMS_ITS | Encounter Summary ---
Author Organization [employer] [facility] Address [address] [place] [address] 7t [place] [address] Care Team Providers Care Geology Technician Name Role Phone Unavailable Primary Care Provider Unavailabl e Reason for Visit * Reason Comments Med Refill Encounter Details Date Type Department Care Team (Late Contact Info) Description 01/19/2024 Refill [facility] MEDICINE [address] [place] [address] Christianne John MD [address] [place] [address] Vitamin deficiency Social History Tobacco Use Types [...] Description 01/28/2026 1:30 PM EDT Office Visit [facility] ADULT DENTAL [address] [place] [address] Santos Garciaaris [address] [place] [address] documented as of this encounter Visit Diagnoses Diagnosis Vitamin deficiency Unspecified vitamin deficiency documented in this encounter
--- OUTSIDE RECORDS SUMMARY | 2025-09-18 11:25 | XMS_ITS | Encounter Summary ---
Author Organization [employer] [facility] Address [address] [place] [address] 7t [place] [address] Care Team Providers Care Manager Agricultural Name Role Phone Marycarmen Quijano MD Primary Care Provider [phone] Marcyarmen Quijano MD Primary Care Provider [phone] Encounter Details Date Type Department Care Team (Latest Contact Info) Description 06/16/2021 Abstract [facility] Dental, Provider, DDS Social History Tobacco [...] Description 01/28/2026 1:30 PM EDT Office Visit [facility] ADULT DENTAL [address] [place] [address] Radha, Johana [address] [place] [address] documented as of this encounter Visit Diagnoses Not on filedocumented in this encounter Care Teams Manager Agricultural Relationship Specialty Start Date End Date Marycarmen Quijano MD [address] [place] [address] PCP - General Family Medicine 07/26/13 02/01/23 Marycarmen Quijano MD [address] [place] [address] PCP - General Family Medicine 03/02/23 06/20/23 documented as of this encounter
--- OUTSIDE RECORDS SUMMARY | 2025-09-18 11:25 | XMS_ITS | Encounter Summary ---
Author Organization [employer] [facility] Address [address] [place] [address] 7[address] [place] [address] Care Team Providers Care Analog Circuit Designer Name Role Phone Marycarmen Quijano MD Primary Care Provider [phone] Reason for Visit * Reason Comments Med Refill Encounter Details Date Type Department Care Team ([facility] Contact Info) Description 04/15/2023 Refill [facility] MEDICINE [address] [place] [address] Marycarmen Quijano MD [address] [place] [address] Social History Tobacco Use Types Packs/Day Years [...] 1:30 PM EDT Office Visit [facility] ADULT DENTAL [address] [place] [address] RadhaJohana [address] [place] [address] documented as of this encounter Visit Diagnoses Not on filedocumented in this encounter Care Teams Analog Circuit Designer Relationship Specialty Start Date End Date Marycarmen Quijano MD [address] [place] [address] PCP - General Family Medicine 03/02/23 06/20/23 documented as of this encounter
--- OUTSIDE RECORDS SUMMARY | 2025-09-18 11:25 | XMS_ITS | Encounter Summary ---
Author Organization [facility] Address [address] [place] [address] [address]t [place] [address] Care Team Providers Care Shipping And Receiving Material Handler Name Role Phone Unavailable Primary Care Provider Unavailabl e Reason for Visit * Reason Comments Med Refill Encounter Details Date Type Department Care Team (Late st Contact Info) Description 11/29/2023 Refill [facility] MEDICINE [address] [place] [address] Christianne John MD [address] [place] [address] Moderate persistent asthma, unspecified whether complicated Social [...] 1:30 PM EDT Office Visit [facility] ADULT DENTAL [address] [place] [address] Radha, Johana [address] [place] [address] documented as of this encounter Visit Diagnoses Diagnosis Moderate persistent asthma, unspecified whether complicated documented in this encounter
--- OUTSIDE RECORDS SUMMARY | 2025-09-18 11:25 | XMS_ITS | Encounter Summary ---
Author Organization [employer] [facility] Address [address] [place] [address] [address] [place] [address] Care Team Providers Care Hospitality Recruiter Name Role Phone Unavailable Primary Care Provider Unavailabl e Reason for Visit * Reason Comments Med Refill Encounter Details Date Type Department Care Team (Late st Contact Info) Description 11/24/2023 Refill [facility] MEDICINE [address] [place] [address] Christianne John MD [address] [place] [address] Moderate persistent asthma, unspecified whether complicated Social [...] Description 01/28/2026 1:30 PM EDT Office Visit [facility] ADULT DENTAL [address] [place] [address] Radha, Johana [address] [place] [address] documented as of this encounter Visit Diagnoses Diagnosis Moderate persistent asthma, unspecified whether complicated documented in this encounter
--- OUTSIDE RECORDS SUMMARY | 2025-09-18 11:25 | XMS_ITS | Encounter Summary ---
Author Organization [employer] [facility] Address [address] [place] [address] 7[address] [place] [address] Care Team Providers Care Industrial Hygiene Technician Name Role Phone Unavailable Primary Care Provider Unavailabl e Reason for Visit * Reason Comments Med Refill Encounter Details Date Type Department Care Team (Late st Contact Info) Description 12/01/2023 Refill [facility] MEDICINE [address] [place] [address] Christianne John MD [address] [place] [address] Moderate persistent asthma, unspecified whether complicated Social [...] [facility] [address] [place] [address] Radha, Johana [address] [place] [address] documented as of this encounter Visit Diagnoses Diagnosis Moderate persistent asthma, unspecified whether complicated documented in this encounter
== END 2025-09-18 09:54 | disposition home or self-care (01) ==
LOC: HO.HKA 09:38
PROVIDERS: PCP Internal Medicine; Visit Provider Internal Medicine Hypertension Specialist
DX: N18.32 Chronic kidney disease, stage 3b (principal); R80.9 Proteinuria, unspecified; N28.1 Cyst of kidney, acquired; D64.89 Other specified anemias; I10 Essential (primary) hypertension
CPT/HCPCS: 99214

== ENCOUNTER 2025-09-18 09:37 | Outpatient (REF) | payer OTHER, SELFPAY ==
[2025-09-18 11:12] LABS: Appearance Urine Cloudy; Glucose Urine UA 100 mg/dL (Negative); PH 5.0 (5.0-9.0); Specific Gravity - Urine 1.010 (1.005-1.025); UMIC TRIGGER UA YES
[2025-09-18 11:12] LABS: Hematocrit 35.6 % (37.0-47.0); Hemoglobin 11.5 g/dl (12.0-16.0); Mean Corpuscular HGB Conc 32.3 g/dl (31.0-35.0); Mean Corpuscular Hemoglobin 25.4 pg (27.0-33.0); Mean Corpuscular Volume 78.8 fL (80.0-98.0); NRBC Abs Auto 0.000 X10*3/uL (0.0-0.012); NRBC Pct Auto 0.0 /100WBC (0.0-0.2); Platelet Count 385 X10*3/uL (160-400); Red Blood Count 4.52 X10*6/uL (4.20-5.50); White Blood Count 10.7 X10*3/uL (4.8-10.8)
[2025-09-18 11:50] LABS: Alanine Aminotransferase 25 U/L (0-31); Albumin Level 3.5 g/dL (3.5-5.0); Alkaline Phosphatase 158 U/L (39-117); Anion Gap 13 (12-20); Aspartate Amino Transferase 18 U/L (5-31); Blood Urea Nitrogen 30 mg/dL (9-16); Calcium 9.2 mg/dL (8.4-10.2); Carbon Dioxide 29 mmol/L (22-29); Chloride 106 mmol/L (96-108); Estimated Glomerular Filt Rate 31; Potassium 3.8 mmol/L (3.3-5.1); Sodium 144 mmol/L (135-145); Total Protein 6.9 g/dL (6.5-8.0)
[2025-09-18 12:13] LABS: Total Protein Urine Random 236 mg/dL (<12)
== END 2025-09-18 09:38 | disposition home or self-care (01) ==
LOC: HO.LAB 09:37
PROVIDERS: PCP Internal Medicine; Visit Provider Internal Medicine Hypertension Specialist
DX: I13.0 Hypertensive heart and chronic kidney disease with heart failure and stage 1 through stage 4 chronic kidney disease, or unspecified chronic kidney disease (principal); I50.33 Acute on chronic diastolic (congestive) heart failure; E11.22 Type 2 diabetes mellitus with diabetic chronic kidney disease; N18.32 Chronic kidney disease, stage 3b; D63.8 Anemia in other chronic diseases classified elsewhere; Z79.899 Other long term (current) drug therapy; Z87.891 Personal history of nicotine dependence
CPT/HCPCS: 36415; 80053; 81001; 82570; 84156; 85027; 99212

== ENCOUNTER 2025-09-19 13:59 | Outpatient (REF) | payer OTHER, SELFPAY ==
[2025-09-20 01:28] LABS: Bacterial Vaginosis PCR NEGATIVE (Negative); Candida Group PCR NOT DETECTED (Not Detect); Candida glab krusei PCR NOT DETECTED (Not Detect); Trichomonas vaginalis PCR NOT DETECTED (Not Detect)
== END 2025-09-19 14:00 | disposition home or self-care (01) ==
LOC: HO.LNP 13:59
PROVIDERS: PCP Internal Medicine; Visit Provider Advanced Practice Midwife
DX: N89.8 Other specified noninflammatory disorders of vagina (principal); N85.8 Other specified noninflammatory disorders of uterus; R10.22 Pelvic and perineal pain left side; Z98.51 Tubal ligation status
CPT/HCPCS: 81515; 99212

== ENCOUNTER 2025-09-19 13:59 | Outpatient (AMB) | payer OTHER, SELFPAY ==
--- OUTSIDE RECORDS SUMMARY | 2024-03-31 04:30 | XMS_ITS ---
Author Organization [facility] Address [address] [place] [address] Care Team Providers Care King Maker Name Role Phone Jaime VORA, Shelby Primary Care Provider Unavail Randy Marshall Unavailable [phone] REASON FOR VISIT Seen Sooner Encounters Encounter Location Date Provider Diagnosis [facility] [address] [place] [address] 03/31/2024 Randy Leal Plan Of Treatment Next Appt Details Provider Name:Randy Leal , 11/20/2025 03:00:00 PM, [address] [place], [address], Progress Notes * Katherine DIASDOB: 5 (80 yo F)Acc No.[id number]:03/31/2024 Progress Notes Patient: Katherine FARMER Provider: Adelina Leal DPM :1945 A ge:78 Y S ex:Female Date:03/31/2024 Address:[address] [place], [place] [id number] Pcp:Shelby Sandoval MD Subjective: * Chief Complaints: [...] 03/31/2024 Generated for Herber olea/Eduardo on: 1 11/20/2024 06:33 PM EST
--- OUTSIDE RECORDS SUMMARY | 2024-09-19 05:00 | XMS_ITS ---
Author Organization [facility] Address [address] [place] [address] Care Team Providers Care Grazing Aide Name Role Phone Jaime VORA, Shelby Primary Care Provider Unavail Randy Marshall Unavailable [phone] Encounters Encounter Location Date Provider Diagnosis [address] [address] 09/19/2024 Randy Leal Plan Of Treatment Next Appt Details Provider Name:Randy Leal , 11/20/2025 03:00:00 PM, [address] [place], [address], Progress Notes * ERMELINDAKatherine SORIADOB: 5 (80 yo F)Acc No.[id number]:09/19/2024 Progress Note Patient: Katherine FARMER Provider: Adelina Leal DPM :1945 A ge:79 Y S ex:Female Date:09/19/2024 Address:[address] [place], [place] [id number] Pcp:Shelby Sandoval MD Subjective: * Chief Complaints: [...] Date: 11/20/2023 Generated for Herber olea/Rolando/Emely on: 11/20/2024 06:32 PM EST
--- OUTSIDE RECORDS SUMMARY | 2025-03-27 04:30 | XMS_ITS ---
Author Organization [facility] Address [address] [place] [address] Care Team Providers Care Account Relationship Manager Name Role Phone Jaime VORA, Shelby Primary Care Provider Unavail Randy Marshall Unavailable [phone] Encounters Encounter Location Date Provider Diagnosis [address] [address] 03/27/2025 Randy Leal Plan Of Treatment Next Appt Details Provider Name:Randy Leal , 11/20/2025 03:00:00 PM, [address] [place], [address], Progress Notes * MICAELAKatherine BashirDOB: 5 (80 yo F)Acc No.[id number]:03/27/2025 Progress Note Patient: Katherine FARMER Provider: Adelina Leal DPM :1945 A ge:79 Y S ex:Female Date:03/27/2025 Address:[address] [place], [place] [id number] Pcp:Shelby Sandoval MD Subjective: * Chief Complaints: [...] DPM Date: 0 03/27/2025 Generated for Herber olea/Rolando/Emely on: 1 11/20/2024 06:32 PM EST
--- NOTE | 2025-09-19 14:06 | A.OFFVIS_ITS ---
Vital Signs 09/19/25 14:08 Height 4 ft 9 in Intake Visit Reasons: Ultrasound Follow up Intake Note: u/s done on 08/22. follow up today. Information Interpreted: non-clinical & clinical Superintendent Stations: Superintendent Stations Present (linsey) Accompanied by: Self / Same As Patient Allergies ibuprofen (From Motrin) Allergy (Intermediate, Verified 09/19/25 14:11) High Blood Pressure, Rash oxycodone (From Percocet) Allergy (Intermediate, Verified 09/19/25 14:11) Itching tirzepatide (From Mounjaro) Adverse Reaction (Severe, Verified 09/19/25 14:11) Diarrhea Medication List - Last Reconciled 09/19/25 by Pushpa Galicia LPN acetaminophen ER 1,300 mg (2 x 650 mg) PO Q8H PRN 30 days albuterol sulfate 90 mcg/actuation 2 inhalations inhalation Q6H PRN 30 days amlodipine 10 mg PO DAILY aspirin 81 mg PO BEDTIME 90 days atorvastatin 80 mg PO BEDTIME 90 days blood pressure monitor As directed blood sugar diagnostic (FreeStyle Lite Strips) Use daily As directed to check blood glucose blood sugar diagnostic (FreeStyle Lite Strips) 3times a day blood-glucose meter (FreeStyle Ashmore Lite kit) As directed blood-glucose meter (FreeStyle Lite Meter kit) Use daily As directed to check blood sugars blood-glucose sensor (Dexcom G7 Sensor device) Use daily As directed to monitor blood glucose. Change q 10 days blood-glucose,bone char kiln operator,cont (Dexcom G7 Smash Piecer) use daily As directed to monitor blood glucose brimonidine 0.2% 1 drp ophthalmic (eye) TID calcium acetate(phosphat bind) 667 mg PO BID 90 days cane As directed cholecalciferol (vitamin D3) 25 mcg PO DAILY 3 months clopidogrel 75 mg PO DAILY [Diabetic shoes with inserts As directed] disposable gloves As directed esomeprazole magnesium (Nexium) 40 mg PO DAILY ferrous sulfate 325 mg PO .once a week 90 days fluticasone propionate 50 mcg/actuation 1 spray intranasal DAILY PRN 30 days ovgwupjeheq-gsrituilk-yuxozuky 200-62.5-25 mcg (Trelegy Ellipta) 1 inh inhalation DAILY 30 days folic acid 1 mg PO QAM 90 days FreeStyle Lancets (lancets) 3 times a day NS gabapentin 300 mg PO BEDTIME 90 days glucagon 3 mg/actuation (Baqsimi) mg intranasal hydralazine 25 mg PO TID 90 days hydrocortisone 1% (Anti-Itch (hydrocortisone)) 1 appl topical BID PRN 4 weeks [incomtinemce liner pads As directed] insulin glargine U-300 conc (Toujeo SoloStar U-300 Insulin) 24 units (0.08 mL) subcut DAILY 90 days ipratropium-albuterol 0.5 mg-3 mg(2.5 mg base)/3 mL 3 mL inhalation RQ4H WHILE AWAKE ketoconazole 2% 1 appl topical 2XW 30 days lancets (TRUEplus Lancets) As directed test 4 times a day lancets (FreeStyle Lancets) use daily as directed to check blood glucose latanoprost 0.005% 1 drp ophthalmic (eye) QPM losartan 25 mg PO DAILY 90 days meclizine (Travel-Ease (meclizine)) 12.5 mg (1/2 x 25 mg) PO BID PRN methylcellulose (laxative) (Citrucel) 500 mg PO DAILY montelukast 10 mg PO QPM 90 days Novolog FlexPen U-100 Insulin (insulin aspart U-100) 4 units (0.04 mL) subcut TID NS Oxygen Home Use As directed pen needle, diabetic (BD Sia 2nd Gen Pen Needle) 5 times a day semaglutide (Ozempic) 2 mg (0.75 mL) subcut QWEEK simethicone (Gas Relief (simethicone)) 125 mg PO BID PRN 90 days sucralfate 1 g PO BID PRN torsemide 20 mg PO BID [wipes As directed] Do you need a note to return to daycare/school/sports/work: No HPI Comments Details: Patient is here today follow up pelvic ultrasound accompanied by her daughter, Neil. History of left sided pelvic pain. History of prior pelvic surgery, occasional twinges. Has occasional odor and external itching. 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 Aortic stenosis CKD (chronic kidney disease) stage 3, GFR 30-59 ml/min Dyslipidemia Diabetic polyneuropathy associated with type 2 diabetes mellitus Diabetic nephropathy associated with type 2 diabetes mellitus Chronic kidney disease Hypertension Asthma Thalamic pain syndrome GERD (gastroesophageal reflux disease) Morbid obesity Surgical History H/O colonoscopy H/O aortic valve replacement History of breast lump/mass excision History of tubal ligation History of cholecystectomy Family History Sister History of renal pelvis cancer Father Suicide Mother Lung disease Diabetes mellitus Social History Household Members: Family Housing: House Do you presently have visiting nurse or other home services: Yes (automatic quilling 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 Patient Tobacco Use Status: Former Tobacco user Tobacco use type: Cigarette Years Smoked: 5 years e-Cigarette/Vaping Use: Never Used Second Hand Smoke Exposure: No service: No Current occupational status: unemployed and disabled Gender identity: Female Cognitive needs: Yes Hearing needs: No Vision needs: No Female Reproductive History Menstrual Age of Menarche: 10 Review of Systems Const All systems reviewed & are unremarkable except as noted in HPI and below Physical Exam Const General: cooperative, healthy appearing and no acute distress Orientation/consciousness: patient oriented x3 GI Other: Patient's points to area of discomfort on the left side is within the subcutaneous tissue of her pannus Inspection: Yes normal to inspection and Yes obesity (Large pannus) Palpation (GI): Soft to palpation and Other GI palpation findings present (Nontender) Rectal Exam - Female: visual inspection normal Other: Upper inner right leg skin rash erythema and dry peeling General: Yes bladder normal to palpation External Female Exam: normal appearance of the urethra Speculum Exam - Vagina: normal appearance of the vagina, normal palpation, normal vaginal discharge and vagina atrophic Speculum Exam - Cervix: normal appearance of the cervix and normal palpation Bimanual exam- vagina & uterus: normal bimanual exam, normal palpation, uterine size normal, bladder normal to palpation, normal palpation, uterine shape normal and non-tender Bimanual Exam- Adnexa, other: normal adnexae Neuro General: patient oriented x3 Results Reviewed Results Reviewed: [address] [address] Ultrasound Report Signed Patient: Louis Montes MR#: [id number] : 1945 Acct:[id number] Age/Sex: 80 / F ADM Date: 08/22/25 [facility] Attending Dr: Sonny James MD Ordering Physician: Cydney Dai CNM Date of Service: 08/22/25 Procedure(s): US pelvic and transvaginal Accession Number(s): [id number] cc: Cydney Dai CNM; Shelby Spence MD~ Reason for Exam: R10.2 - Pelvic and perineal pain EXAMINATION: US PELVIS TRANSABDOMINAL AND TRANSVAGINAL HISTORY: R10.2 - Pelvic and perineal pain COMPARISON: Pelvic ultrasound 04/23/2021 TECHNIQUE: Transabdominal and transvaginal imaging was performed. FINDINGS: LMP: Postmenopausal Uterus is retroverted and anteflexed , measuring 5 x 1.5 x 2.4 cm. No focal uterine lesion. Echogenic foci with posterior acoustic shadowing raising possibility of foci of calcifications. Endometrial thickness: Endometrial is not well seen. Questionable partially visualized endometrium measuring 1 mm. Bilateral ovaries not visualized. No free fluid in the cul-de-sac. Body habitus, bowel gas limiting evaluation. US/US pelvic and transvaginal IMPRESSION: Limited examination. Echogenic uterine foci with posterior acoustic shadowing, question foci of calcifications The endometrium is not well visualized. Bilateral ovaries are not utilized. Consider follow-up ultrasound. Electronically signed by: Rafi Schwarz MD 08/22/2025 02:50 PM EST Dictated By: Rafi Schwarz MD Signed By: <Electronically signed by Rafi Schwarz MD in OV> 08/22/25 1450 DD/ 1356 TD/TT: 08/22/25 1420 Composing Room Machinist: WILLIAM Assessment & Plan Assessment & Plan (1) Pelvic pain in female: Code(s): R10.2 - Pelvic and perineal pain Category: Medical (2) Calcification of uterus: Code(s): N85.8 - Other specified noninflammatory disorders of uterus Category: Medical (3) Vaginal irritation: Code(s): N89.8 - Other specified noninflammatory disorders of vagina Category: Medical Plan: BV panel obtained await results for final care. Rx sent in to pharmacy for upper right leg rash. Reviewed skin care with body washes and lotions and creams for additional skin barrier protection. The patient expressed understanding and agreement with the plan of care. All of her questions and concerns were addressed to the best of my ability. Plan Discussed: Ultrasound findings- MPRESSION: Limited examination. Echogenic uterine foci with posterior acoustic shadowing, question foci of calcifications The endometrium is not well visualized. Bilateral ovaries are not utilized. Consider follow-up ultrasound. Details explained, including calcifications. Plan follow up ultrasound in 2 months, advised to call if there is any pelvic pain changes. Left-sided twinges maybe from the heavy pannus weighing down a pulling sensation. The patient expressed understanding and agreement with the plan of care. All of her questions and concerns were addressed to the best of my ability. This note is constructed using voice recognition software. While every effort has been made to ensure accuracy, chemistry laboratory technician errors may have been included. Orders: Orders US pelvic and transvaginal 10/01/25 N85.8 - Other specified noninflammatory disorders of uterus, R10.2 - Pelvic and perineal pain Bacterial Vaginosis Panel Today N89.8 - Other specified noninflammatory disorders of vagina Medications: New clotrimazole-betamethasone 1-0.05 % apply externally a thin coat to the area 1 appl topical BID 45 grams 0RF itching 7 days Coding Level of Care Code Est Pt Level 3 (09297) Diagnoses Pelvic pain in female R10.2 Calcification of uterus N85.8 Vaginal irritation N89.8
--- OUTSIDE RECORDS SUMMARY | 2025-09-19 18:32 | XMS_ITS | Encounter Summary ---
Author Organization [employer] Address [address] [place] [address] [address] [place] [address] Care Team Providers Care Deckhand Engineer Name Role Phone Marycarmen Quijano MD Primary Care Provider [phone] Reason for Visit * Reason Comments Med Refill Encounter Details Date Type Department Care Team ([facility] Contact Info) Description 03/07/2023 Refill [facility] & PEDS [address] [place], [place] [id number] Marycarmen Quijano MD [address] [place], [place] [phone] Social History Tobacco Use Types Packs/Day Years [...] 1:30 PM EDT Office Visit [facility] [address] [place] [address] Radha, Johana [address] [place] [address] documented as of this encounter Visit Diagnoses Not on filedocumented in this encounter Care Teams Deckhand Engineer Relationship Specialty Start Date End Date Marycarmen Quijano MD [address] [place] [address] PCP - General Family Medicine 03/02/23 06/20/23 documented as of this encounter
--- OUTSIDE RECORDS SUMMARY | 2025-09-19 18:32 | XMS_ITS | Encounter Summary ---
Author Organization [employer] Address [address] [facility] [address] [place] [address] Care Team Providers Care Ramp Lead Name Role Phone Marycarmen Quijano MD Primary Care Provider [phone] Reason for Visit * Reason Comments Med Refill Encounter Details Date Type Department Care Team ([facility] Contact Info) Description 03/10/2023 Refill [facility] MED & PEDS [address] [place], [place] [phone] Marycarmen Quijano MD [address] [place] [address] Primary hypertension Social History Tobacco Use Types [facility] Info[facility] Description 01/28/2026 1:30 PM EDT Office Visit [facility] ADULT D[facility] [address] [place] [address] Santos Garciaaris [address] [place] [address] documented as of this encounter Visit Diagnoses Diagnosis Primary hypertension Unspecified essential hypertension documented in this encounter Care Teams Ramp Lead Relationship Specialty Start Date End Date Marycarmen Quijano MD [address] [place] [address] PCP - General Family Medicine 03/02/23 06/20/23 documented as of this encounter
--- OUTSIDE RECORDS SUMMARY | 2025-09-19 18:32 | XMS_ITS | Encounter Summary ---
Author Organization [employer] [facility] Address [address] [place] [address] [address] [place] [address] Care Team Providers Care Executive Admin Name Role Phone Marycarmen Quijano MD Primary Care Provider [phone] Reason for Visit * Reason Comments Med Refill Encounter Details Date Type Department Care Team ([facility] Contact Info) Description 04/15/2023 Refill [facility] [address] [place] [address] Marycarmen Quijano MD [address] [place] [address] Social History Tobacco Use Types Packs/Day Years [...] Encounters Date Type Department Care Team ([facility] Contact Info) Description 01/28/2026 1:30 PM EDT Office Visit [facility]ULT [facility] [address] [place] [address] RadhaJohana [address] [place] [address] documented as of this encounter Visit Diagnoses Not on filedocumented in this encounter Care Teams Executive Admin Relationship Specialty Start Date End Date Marycarmen Quijano MD [address] [place] [address] PCP - General Family Medicine 03/02/23 06/20/23 documented as of this encounter
--- OUTSIDE RECORDS SUMMARY | 2025-09-19 18:32 | XMS_ITS | Encounter Summary ---
Author Organization [employer] Address [address] [facility] [address] [place] [address] Care Team Providers Care Languages And Literature Instructor Name Role Phone Marycarmen Quijano MD Primary Care Provider [phone] Reason for Visit * Reason Comments Med Refill Encounter Details Date Type Department Care Team ([facility] Contact Info) Description 03/03/2023 Refill [facility] MED & PEDS [address] [place], [place] [phone] Marycarmen Quijano MD [address] [place] [address] Primary hypertension Social History Tobacco Use Types [...] Team ([facility] Contact Info) Description 01/28/2026 1:30 PM EDT Office Visit [facility] ADULT [facility] [address] [place] [address] RadhaJohana [address] [place] [address] documented as of this encounter Visit Diagnoses Diagnosis Primary hypertension Unspecified essential hypertension documented in this encounter Care Teams Languages And Literature Instructor Relationship Specialty Start Date End Date Marycarmen Quijano MD [address] [place] [address] PCP - General Family Medicine 03/02/23 06/20/23 documented as of this encounter
--- OUTSIDE RECORDS SUMMARY | 2025-09-19 18:32 | XMS_ITS | Encounter Summary ---
Author Organization [employer] [facility] Address [address] [place] [address] [address] [place] [address] Care Team Providers Care Cash Sales Audit Clerk Name Role Phone Marycarmen Quijano MD Primary Care Provider [phone] Reason for Visit * Reason Comments Med Refill Encounter Details Date Type Department Care Team ([facility] Contact Info) Description 04/04/2023 Refill [facility] MED[facility] [address] [place] [address] Marycarmen Quijano MD [address] [place] [address] Social History Tobacco Use Types Packs/Day Years [...] [facility] Contact Info) Description 01/28/2026 1:30 PM EDT Office Visit [facility] ADULT D[facility] [address] [place] [address] RadhaJohana [address] [place] [address] documented as of this encounter Visit Diagnoses Not on filedocumented in this encounter Care Teams Cash Sales Audit Clerk Relationship Specialty Start Date End Date Marycarmen Quijano MD [address] [place] [address] PCP - General Family Medicine 03/02/23 06/20/23 documented as of this encounter
--- OUTSIDE RECORDS SUMMARY | 2025-09-19 18:32 | XMS_ITS | Data Portability ---
Author Organization [facility], [facility] Address [address] [place] [address] Care Team Providers Care Research Scientist Name Role Phone HIM CCA OTHER Assessment Encounter Date Assessment Date Assessment LastModified by Organization Details LastModified Time 04/08/2023 04/08/2023 77 YOF with CHF, COPD recent hospitalization being seen for report of low 02 sat at home in the 80s, On chute builder exam sat 91% on 2L pt in [...] follow up w pcp in 1 week [email or web address] Not available 09/18/2024 20:08:58 Plan of Treatment Reminders Order Date Submit Date Provider Last Modified By Organization Details Last Modified Time Details Appointments None recorded. Lab rapid SARS CoV 2 Ag, QL IA, respiratory specimen 2023 024 [facility], [address] [place] [address], [id number] 4 09:06:35 rapid flu (A+B) 2023 024 [facility], [address] [place] [address], [id number] 4 09:06:54 CBC w/ auto diff 2021 022 [facility] (Centralized Electronic Ordering - All Locations), Patient Can Go To The Location Of Their Choice, [id number] 2 00:05:50 CMP, serum or plasma 2021 [facility] (Centralized Electronic Ordering - All Locations), Patient Can Go To The Location Of Their Choice, [address] 19:37:00 unlisted lab - urinalysis w/reflex culture 2021 [facility] (Centralized Electronic Ordering - All Locations), Patient Can Go To The Location Of Their Choice, [address] 01:53:39 cmp, whole blood + [email or web address] [address] [place] [address], [id number] 2 16:24:03 urinalysis, dipstick 2021 [email or web address] [address] [place] [address], [id number] 16:24:43 Referral None recorded. Procedures None recorded. Surgeries None recorded. Imaging None recorded. Medication Orders prednisone 10 mg tablet 2023 [facility], [address] [place] [address], [id number], 4 12:30:23 azithromyci n 250 mg tablet 2023 024 [facility], [address] [place] [address], [id number], 4 12:30:23 azithromyci n 250 mg tablet 2023 024 [facility], [address] [place] [address], [id number], 4 20:08:15 prednisone 20 mg tablet 2023 024 [email or web address] [facility], [address] [place] [address], [id number], 4 20:08:15 ipratropium 0.5 mg-albutero l 3 mg (2.5 mg base)/3 mL nebulizatio n soln 2023 024 [email or web address] [facility], [address] [place] [address], [id number], 20:08:15 Patient TargetsNo targets recorded. Patient InstructionsNo [...] Leukocytes neg Not Available Main - [facility] [address] [place] [address], [id number] 02/16/2022 16:23:39 02/17/20 22 02/16/2022 urina lysis , dipst ick Nitrite negati ve Not Available Main - [facility] [address] [place] [address], [id number] 02/16/2022 16:23:39 02/17/20 22 02/16/2022 urina lysis , dipst ick Protein 4+ Not Available Main - [facility] [address], [address] 02/16/2022 16:23:39 02/17/20 22 02/16/2022 urina lysis , dipst ick Ketone 2+ Not Available Main - [facility] [address], [address] 02/16/2022 16:23:39 02/17/20 22 02/16/2022 urina lysis , dipst ick Glucose negati ve Not Available Main - [facility] [address] [place] [address], [address] 02/16/2022 16:23:39 02/17/20 22 02/16/2022 cmp, whole blood + picco lo ALB 2.8 Not Available Main - [facility] [address], [address] 02/16/2022 16:22:48 02/17/20 22 02/16/2022 cmp, whole blood + picco lo ALP 114 Not Available Main - [facility] [address], [address] 02/16/2022 16:22:48 02/17/20 22 02/16/2022 cmp, whole blood + picco lo ALT 12 Not Available Main - [facility] [address], [address] 02/16/2022 16:22:48 02/17/20 22 02/16/2022 cmp, whole blood + picco lo AST 18 Not Available Main - [facility] [address], [address] 02/16/2022 16:22:48 02/17/20 22 02/16/2022 cmp, whole blood + picco lo BUN 17 Not Available Main - [facility] [address], [address] 02/16/2022 16:22:48 02/17/20 22 02/16/2022 cmp, whole blood + picco lo Ca 9.8 Not Available Main - [facility] [address], [address] 02/16/2022 16:22:48 02/17/20 22 02/16/2022 cmp, whole blood + picco lo CI- normal Not Available Main - [facility] [address], [address] 02/16/2022 16:22:48 02/17/20 22 02/16/2022 cmp, whole blood + picco lo CRE 1.3 Not Available Main - [facility] [address], [address] 02/16/2022 16:22:48 02/17/20 22 02/16/2022 cmp, whole blood + picco lo GLU 326 Not Available Main - [facility] [address], [address] 02/16/2022 16:22:48 02/17/20 22 02/16/2022 cmp, whole blood + picco lo K+ 3.8 Not Available Main - [facility] [address], [address] 02/16/2022 16:22:48 02/17/20 22 02/16/2022 cmp, whole blood + picco lo Na+ 138 Not Available Main - [facility] [address], [address] 02/16/2022 16:22:48 02/17/20 22 02/16/2022 cmp, whole blood + picco lo tCO2 27 Not Available Main - [facility] [address], [address] 02/16/2022 16:22:48 Result Notes None recorded. Medical Equipment None Reported. Allergies Allergen ID Allergen Name Allergen Category Reaction Reaction Severity Criticality Documentation Date Start Date Code Code System Note Provider Name and Address Organization Details Recorded Time 04844 Motrin medicatio n Not available Not available Not available 09/18/202446039 8 RxNorm Not Available [facility] - production 4 15:17:42 82034 acetamino phen / oxycodone medicatio n Not available Not available Not available 09/18/2024 83123 3 RxNorm Not Available [facility] - production 4 15:17:42 46194 tramadol medicatio n Not available Not available Not available 09/18/2024 99048 RxNorm Not Available [facility] - production 4 15:17:42 Medications Name Sig [...] Not Available No t Available Dexcom G7 Yarrow Gatherer USE DIRECTED active Not Available Not Available [...] t Available Vitals Date Recorded Oxygen saturation Respiratory rate Body temperature Heart rate Body height Body weight Heart rate Body height Oxygen saturation Body temperature Body weight Respiratory rate Provider Name and Address Organization Details Last Updated DateTime 2 99 % 20 /min 98.9 [degF] 78 /min 152.4 cm 453.592 g 78 /min 154.94 cm 99 % 98.9 [degF] 85144.2 4 g 20 /min Not Available [facility] - production 2 14:54:34 Date Recorded Systolic And Diastolic Systolic And Diastolic Provider Name and Address Organization Details Last Updated DateTime 02/16/2022 164/63 mm[Hg] 164/63 mm[Hg] Not Available [facility] - production 02/16/2022 14:54:34 Date Recorded Body temperature Heart rate Respiratory rate Oxygen saturation Inhaled oxygen flow rate Systolic And Diastolic Provider Name and Address Organization Details Last Updated DateTime 3 97.8 [degF] 64 /min 20 /min 91 % 2 L/min 146/65 mm[Hg] Not Available [facility] - production 3 16:22:45 Date Recorded Heart rate Oxygen saturation Body temperature Respiratory rate Systolic And Diastolic Provider Name and Address Organization Details Last Updated DateTime 4 78 /min 93 % 97.1 [degF] 16 /min 137/76 mm[Hg] Not Available [facility] - production 4 [...] Codes Diagnosis Note 1594 Hanane Mena MD Main - [address] [address] 02/16/2022 14:13:00 05/29/2022 14:46:24 Acute low back pain 110990498 M54.50 Pt p/w 5 days of atraumatic [...] no improvemen t in pain consider imagingPer chute builder, requestor asked for CBC w/ diff and CMP (not acknowledg ed in [facility] portal) but no orders placed. Reasonable to check CBC w/ diff and CMP thus orders placed. Ketonuria [id number] R82. 4 Pt with 2+ urinary ketones [...] and call PCP if FSG > 350. [id number] Damien Alfredo MD Main - [facility] [address] [place] [address] 04/08/2023 16:22:43 04/08/2023 23:08:09 Hypoxia 541910602 R09.02 [id number] Wander Smith MD Main - [facility] [address] [place] [address] 09/18/2024 20:04:23 09/18/2024 21:06:53 Acute exacerbation of chronic obstructive pulmonary disease 074308715 J44.1 Health Concerns Section Related Observation LastModified by Organization Detai ls LastModified Time None Recorded Concern Status LastModified by Organization Details LastModified Time None Recorded Advance Directives Directive None Recorded Payers Insurance Date Sequence Insurance Name Policy Number Policy Rendon Covered Member ID Rendon Member ID Guarantor Name 04/08/2023 [facility] - [facility] PRIOR TO 2023 - DUAL ELIGIBLE (MEDICARE REPLACEMENT/AD VANTAGE - HMO) Katherine Griffith [id number] Katherine Griffith 09/18/2024 [facility] - DOS ON OR AFTER 2023 - DUAL ELIGIBLE - RETIREMENT OPTIONS AND ONE CARE (MEDICARE REPLACEMENT/AD VANTAGE - HMO) Katherine Griffith [id number] Katherine Griffith Notes Date Note Type Note [...] .................... .................... .................... .................... .................... .................... . Harness Cutter Note: Patient is a 76 year old [...] seen by urologist last month according to critical care rn, kidney function was good. Urine sample obtained and dipped; changes in PRO, SG and KET detected. Urine sent to [facility] for UA and Culture. Vital signs obtained and all within normal limits. Red flags discussed. Consulted with Dr. Mena. Patient is to follow up with PCP/care team regarding her signs, symptoms and todays visit. Dr. Mena recommended blood work. Harness Cutter Sara Davis was dispatched for procedure. See chute builder Sara Davis run report for further patient [...] h Hanane Mena MD [address] [facility],[address], [place], [address], [employer] 02/16/2022 16:24:46 04/08/2023 text/html CRC Nursing Assessment: [...] name/- Damien Alfredo MD [address] [facility],[address], [place], [address], [employer] 04/08/2023 16:28:34 09/18/2024 text/html CRC Nurse Triage [...] s/s and seek emergency treatment if needed. Harness Cutter Organization Information for [facility] Legal Name: [facility] Address: [address] [place] [address] Rd, JOHNY Valles [address], Learning Manager: Louis Stockton MD CLIA No.: [id number] Harness Cutter POC Test Results from [facility] - ALS Rapid COVID antigen (20:02:29) COVID: - Rapid influenza antigen (20:02:30) Flu: - Wander Smith MD [address] [facility],[address], [place], [address], [facility] - [employer] 09/18/2024 21:05:29 OBGyn Episode No OBEpisode recorded.
--- OUTSIDE RECORDS SUMMARY | 2025-09-19 18:32 | XMS_ITS | Patient Health Record ---
Author Organization [facility] Address [address] [place] [address] Care Team Providers Care Admin Secretary Name Role Phone Jaime VORA, Shelby Primary Care Provider Unavail able Randy Leal Unavailable [phone] Allergies Allergen (clinical drug ingredient) Drug/Non Drug [...] Problem Acquired hammer toe of right foot (1296965767352769 ) Other hammer toe(s) (acquired), right foot (M20.41) Active confirmed Problem Acquired hammer toe of left foot (5676551207196029 ) Other hammer toe(s) (acquired), left foot (M20.42) Active confirmed Problem Polyneuropathy due to type 2 diabetes mellitus (463482191) Type 2 diabetes mellitus with diabetic polyneuropathy (E11.42) Active confirmed Vital Signs Blood pressure diastolic 65 mm Hg 07/24/2025 Height 4 ft 9 in in 07/24/2025 Blood pressure systolic 130 mm Hg 07/24/2025 Weight 182 lbs 07/24/2025 BMI 39.38 kg/m2 07/24/2025 Procedures Procedure Date Ordered Date Performed Result Body Sit e 53783-HAUDFEL NAIL, 6 OR MORE 12/26/2024 N/A 15516-Husyqnxw Plate 12/26/2024 N/A 46045-SHZU SKIN LESIONS, 2 TO 4 12/26/2024 N/A 90674-OLKAKDF NAIL, 6 OR MORE 04/24/2025 N/A 57334-NSBB SKIN LESIONS, 2 TO 4 04/24/2025 N/A 75048-XGNFFFB NAIL, 6 OR MORE 07/24/2025 N/A 61399-RCPH SKIN LESIONS, 2 TO 4 07/24/2025 N/A Encounters Encounter Location Date Provider Diagnosis [address] [address] 12/26/2024 Randy Leal Type 2 diabetes mellitus with diabetic polyneuropathy E11.42 ; Tinea unguium B35.1 ; Other hammer toe(s) (acquired), right foot M20.41 ; Other hammer toe(s) (acquired), left foot M20.42 and Subungual hematoma of left foot, initial encounter S90.222A [address] [address] 04/24/2025 Randy Leal Type 2 diabetes mellitus with diabetic polyneuropathy E11.42 ; Tinea unguium B35.1 and Xerosis of skin L85.[address] [address] 07/24/2025 Randy Leal Type 2 diabetes mellitus with diabetic polyneuropathy E11.42 ; Tinea unguium B35.1 and Xerosis of skin L85.[address] [address] 09/19/2024 Randy Leal [address] [address] 12/26/2024 Randy Leal [address] [address] 03/27/2025 Randy Leal Assessments Encounter Date Diagnosis [...] Treatment Pending Test Test Name Order Date 92512-QSOYSUC NAIL, 6 OR MORE 03/17/2024 43666-JCFBQLR NAIL, 6 OR MORE 06/16/2024 47567-QYJUKXY NAIL, 6 OR MORE 12/26/2024 77050-LKTBHCT NAIL, 6 OR MORE 04/24/2025 34247-QRKRLBA NAIL, 6 OR MORE 07/24/2025 22106-Npksiudc Plate 12/26/2024 58502-HZUU SKIN LESIONS, 2 TO 4 07/24/20 25 89733-QCYL SKIN LESIONS, 2 TO 4 04/24/20 25 98948-ECNF SKIN LESIONS, 2 TO 4 12/27/19 25 45636-MULO SKIN LESIONS, 2 TO 4 06/16/20 24 92651-APVZ SKIN LESIONS, 2 TO 4 03/17/20 24 Next Appt Details Provider Name:Randy Leal , 11/20/2025 03:00:00 PM, [address] [place] [address], [phone], Insurance Providers Payer Name Payer Address Payer Phone Subscriber Number Group Number Insured Name Patient Relationship to Insured Coverage Start Date Coverage End Date [facility] [employer] Claims [address] [place] [id number] Katherine Jamil Self - patient is the insured Medical (General) History Medical History History ICD Code Anxiety Arthritis asthma Back,Hip,and Knee pain CAD (Cholesterol) Cataracts Depression Diabetic Heart disease High blood pressure Kidney disease Lung disease Numbness Poor circulation Reflux ( GERD) sinusitis Vascular phlebitis (clots) Chicken pox Replacement Heart Valves Transfusions Surgical History Surgery Date(Month/Year)
--- OUTSIDE RECORDS SUMMARY | 2025-09-19 18:32 | XMS_ITS | Encounter Summary ---
Author Organization [facility] Address [address] [facility] 7t [place] [address] Care Team Providers Care Director Blood Bank Name Role Phone Marycarmen Quijano MD Primary Care Provider [phone] Reason for Visit * Reason Comments Med Refill Encounter Details Date Type Department Care Team ([facility] Contact Info) Description 04/12/2023 Refill [facility] [address] [place] [address] Jose Johnson MD [address] [place] [address] Social History Tobacco Use Types Packs/Day Years [...] Encounters Date Type Department Care Team ([facility] Contact Info) Description 01/28/2026 1:30 PM EDT Office Visit [facility] [address] [place] [address] RadhaJohana [address] [place] [address] documented as of this encounter Visit Diagnoses Not on filedocumented in this encounter Care Teams Director Blood Bank Relationship Specialty Start Date End Date Marycarmen Quijano MD [address] [place] [address] PCP - General Family Medicine 03/02/23 06/20/23 documented as of this encounter
--- OUTSIDE RECORDS SUMMARY | 2025-09-19 18:32 | XMS_ITS | Encounter Summary ---
Author Organization [facility] Address [address] [place] [address] 7t [place] [address] Care Team Providers Care Mechanic And Welder Name Role Phone Marycarmen Quijano MD Primary Care Provider [phone] Reason for Visit * Reason Comments Med Refill Encounter Details Date Type Department Care Team ([facility] Contact Info) Description 02/06/[address] [facility] [address] [place] [address] Marycarmen Quijano MD [address] [place] [address] Social History Tobacco Use Types Packs/Day Years [...] Upcoming Encounters Date Type Department Care Team ([facility] Contact Info) Description 01/28/2026 1:30 PM EDT Office Visit [facility] [address] [place] [address] RadhaJohana [address] [place] [address] documented as of this encounter Visit Diagnoses Not on filedocumented in this encounter Care Teams Mechanic And Welder Relationship Specialty Start Date End Date Marycarmen Quijano MD [address] [place] [address] PCP - General Family Medicine 03/02/23 06/20/23 documented as of this encounter
--- OUTSIDE RECORDS SUMMARY | 2025-09-19 18:33 | XMS_ITS | Encounter Summary ---
Author Organization [facility] [employer] [facility] Address [address] [place] [address] [address]t [place] [address] Care Team Providers Care Steam Shovel Runner Name Role Phone Unavailable Primary Care Provider Unavailabl e Reason for Visit * Reason Comments Med Refill Encounter Details Date Type Department Care Team (Late st Contact Info) Description 11/29/2023 Refill [facility] [address] [place] [address] Christianne John MD [address] [place] [address] Moderate persistent asthma, unspecified whether complicated Social [...] 1:30 PM EDT Office Visit [facility] [address] [place] [address] Radha, Johana [address] [place] [address] documented as of this encounter Visit Diagnoses Diagnosis Moderate persistent asthma, unspecified whether complicated documented in this encounter
--- OUTSIDE RECORDS SUMMARY | 2025-09-19 18:33 | XMS_ITS | Encounter Summary ---
Author Organization [facility] Address [address] [place] [address] 7t [place] [address] Care Team Providers Care Ged Instructor Name Role Phone Unavailable Primary Care Provider Unavailabl e Reason for Visit * Reason Comments Med Refill Encounter Details Date Type Department Care Team (Late st Contact Info) Description 11/24/2023 Refill [facility] [address] [place] [address] Christianne John MD [address] [place] [address] Moderate persistent asthma, unspecified whether complicated Social [...] Description 01/28/2026 1:30 PM EDT Office Visit [facility] [address] [place] [address] Radha, Johana [address] [place] [address] documented as of this encounter Visit Diagnoses Diagnosis Moderate persistent asthma, unspecified whether complicated documented in this encounter
--- OUTSIDE RECORDS SUMMARY | 2025-09-19 18:33 | XMS_ITS | Encounter Summary ---
Author Organization [facility] Address [address] [place] [address] 7 [place] [address] Care Team Providers Care Manager Lan Name Role Phone Marycarmen Quijano MD Primary Care Provider [phone] Marycarmen Quijano MD Primary Care Provider [phone] Reason for Visit * Reason Comments Med Refill Encounter Details Date Type Department Care Team (Late st Contact Info) Description 11/10/2022 Refill [facility] [address] [place], [place] [phone] Marycarmen Quijano MD [address] [place], [place] [phone] Social History Tobacco Use Types Packs/Day Years [...] 1:30 PM EDT Office Visit [facility] [address] [place], [place] [phone] Radha, Johana [address] [place] [address] documented as of this encounter Visit Diagnoses Not on filedocumented in this encounter Care Teams Manager Lan Relationship Specialty Start Date End Date Marycarmen Quijano MD [address] [place] [address] PCP - General Family Medicine 07/26/13 02/01/23 Marycarmen Quijano MD [address] [place] [address] PCP - General Family Medicine 03/02/23 06/20/23 documented as of this encounter
--- OUTSIDE RECORDS SUMMARY | 2025-09-19 18:33 | XMS_ITS | Encounter Summary ---
Author Organization [employer] [facility] Address [address] [place] [address] 7t [place] [address] Care Team Providers Care Auto Driver Name Role Phone Unavailable Primary Care Provider Unavailabl e Reason for Visit * Reason Comments Med Refill Encounter Details Date Type Department Care Team (Late st Contact Info) Description 12/01/2023 Refill [facility] [address] [place] [address] Christianne John MD [address] [place] [address] Moderate persistent asthma, unspecified whether complicated Social [...] [facility] [address] [place] [address] Radha, Johana [address] [place] [address] documented as of this encounter Visit Diagnoses Diagnosis Moderate persistent asthma, unspecified whether complicated documented in this encounter
--- OUTSIDE RECORDS SUMMARY | 2025-09-19 18:33 | XMS_ITS | Encounter Summary ---
Author Organization [employer] [facility] [facility] Address [address] [place] [address] 7t [place] [address] Care Team Providers Care Rehabilitation Services Aide Name Role Phone Marycarmen Quijano MD Primary Care Provider [phone] Marycarmen Quijano MD Primary Care Provider [phone] Encounter Details Date Type Department Care Team (Latest Contact Info) Description 06/16/2021 Abstract [facility] CONVERSIONS Dental, Provider, DDS Social History [...] [facility] [address] [place] [address] Radha, Johana [address] [place] [address] documented as of this encounter Visit Diagnoses Not on filedocumented in this encounter Care Teams Rehabilitation Services Aide Relationship Specialty Start Date End Date Marycarmen Quijano MD [address] [place] [address] PCP - General Family Medicine 07/26/13 02/01/23 Marycarmen Quijano MD [address] [place] [address] PCP - General Family Medicine 03/02/23 06/20/23 documented as of this encounter
--- OUTSIDE RECORDS SUMMARY | 2025-09-19 18:33 | XMS_ITS | Encounter Summary ---
Author Organization [facility] Address [address] [place] [address] 7t [place] [address] Care Team Providers Care Turret Lathe Set Up Operator Name Role Phone Unavailable Primary Care Provider Unavailabl e Reason for Visit * Reason Comments Med Refill Encounter Details Date Type Department Care Team (Late st Contact Info) Description 12/02/2023 Refill [facility] [address] [place] [address] Christianne John MD [address] [place] [address] Moderate persistent asthma, unspecified whether complicated Social [...] Visit [facility] [address] [place] [address] Radha, Johana [address] [place] [address] documented as of this encounter Visit Diagnoses Diagnosis Moderate persistent asthma, unspecified whether complicated documented in this encounter
--- OUTSIDE RECORDS SUMMARY | 2025-09-19 18:33 | XMS_ITS | Encounter Summary ---
Author Organization [employer] [facility] Address [address] [place] [address] 7t [place] [address] Care Team Providers Care Addictions Counselor Assistant Name Role Phone Unavailable Primary Care Provider Unavailabl e Reason for Visit * Reason Comments Med Refill Encounter Details Date Type Department Care Team (Late Contact Info) Description 01/19/2024 Refill [facility] [address] [place] [address] Christianne John MD [address] [place] [address] Vitamin deficiency Social History Tobacco Use Types [...] [facility] [address] [place] [address] Santos Garciaaris [address] [place] [address] documented as of this encounter Visit Diagnoses Diagnosis Vitamin deficiency Unspecified vitamin deficiency documented in this encounter
--- OUTSIDE RECORDS SUMMARY | 2025-09-19 18:33 | XMS_ITS | Clinical Summary ---
Author Organization [employer] Address [address] [facility] 7t [place] [address] Care Team Providers Care Patrol Lady Name Role Phone Unavailable Primary Care Provider [...] BEDTIME 2 Active Blood Glucose Monitoring Suppl (ZomatoStyle Orem Lite) w/Device kit TEST BLOOD SUGAR THREE [...] by mouth at bed time. Active Creon 66290-78672 units capsule 3 Active pantoprazole (ProtoNix) 40 [...] 3 Active ergocalciferol (Vitamin D2) 1.25 MG (74317 UT) capsule TAKE 1 CAPSULE BY MOUTH [...] 07/25/2025 10:15 AM EDT Office Visit [facility] ADULT D[facility]AL [address] [place] [address] Johana Garcia Partially edentulous mandible, unspecified edentulism [...] 01/28/2026 1:30 PM EDT Office Visit [facility] ADULT DENTAL [address] [place] [address] Johana Garcia [address] [place] [address] Health Maintenance Due Date Last Done Comments [...] average glucose, using the formula of the R6A-Niycycr Average Glucose study (ADAG), Diabetes Care, Vol.31,#8, [...] [facility] Comment: NOTE: For -[place] individuals, multiply the result by 1.210. Chronic [...] Historical Provider HISTORICAL/NON ORDERABLE LABS Final Result [facility] [address] from Last 3 Months or Most Recently Relevant to Health Maintenance Insurance # 1 [place] [address] [facility] OPTIONS (O D-SNP) YASMIN FRANCO [id number] DENTAL - [facility]
--- OUTSIDE RECORDS SUMMARY | 2025-09-19 18:33 | XMS_ITS | Encounter Summary ---
Author Organization [employer] [facility] Address [address] [place] [address] 7t [place] [address] Care Team Providers Care Registration Specialist Name Role Phone Marycarmen Quijano MD Primary Care Provider Reason for Visit * Reason Comments Med Refill Encounter Details Date Type Department Care Team ([facility] Contact Info) Description 04/15/2023 Refill [facility] MEDICINE [address] [place] [address] Marycarmen Quijano MD [address] [place] [address] Social History Tobacco Use Types Packs/Day Years [...] Upcoming Encounters Date Type Department Care Team ([facility] Contact Info) Description 01/28/2026 1:30 PM EDT Office Visit [facility] ADULT DENTAL [address] [place] [address] RadhaJohana [address] [place] [address] documented as of this encounter Visit Diagnoses Not on filedocumented in this encounter Care Teams Registration Specialist Relationship Specialty Start Date End Date Marycarmen Quijano MD [address] [place] [address] PCP - General Family Medicine 03/02/23 06/20/23 documented as of this encounter
== END 2025-09-19 14:47 | disposition home or self-care (01) ==
LOC: HO.HWS 13:59
PROVIDERS: PCP Internal Medicine; Visit Provider Advanced Practice Midwife
DX: R10.20 Pelvic and perineal pain unspecified side (principal); N85.8 Other specified noninflammatory disorders of uterus; N89.8 Other specified noninflammatory disorders of vagina
CPT/HCPCS: 99213

== ENCOUNTER 2025-09-20 10:03 | Outpatient (AMB) | payer OTHER, SELFPAY ==
--- OUTSIDE RECORDS SUMMARY | 2024-03-31 04:30 | XMS_ITS ---
Author Organization [facility] Address [address] [place] [address] Care Team Providers Care Home Energy Consultant Name Role Phone Jaime VORA, Shelby Primary Care Provider Unavail Randy Marshall Unavailable [phone] REASON FOR VISIT Seen Sooner Encounters Encounter Location Date Provider Diagnosis [facility] [address] [place] [address] 03/31/2024 Randy Leal Plan Of Treatment Next Appt Details Provider Name:Randy Leal , 11/20/2025 03:00:00 PM, [address] [place], [address], Progress Notes * Katherine DIASDOB: [birth year] (80 yo F)Acc No.[id number]:03/31/2024 Progress Notes Patient: Katherine FARMER Provider: Adelina Leal DPM :1945 A ge:78 Y S ex:Female Date:03/31/2024 Address:[address] [place], [place] [id number] Pcp:Shelby Sandoval MD Subjective: * Chief Complaints: [...] 03/31/2024 Generated for Herber olea/Eduardo on: 1 11/21/2024 12:22 PM EST
--- OUTSIDE RECORDS SUMMARY | 2024-09-19 05:00 | XMS_ITS ---
Author Organization [facility] Address [address] [place] [address] Care Team Providers Care Microarray Analyst Name Role Phone Jaime VORA, Shelby Primary Care Provider Unavail Randy Marshall Unavailable [phone] Encounters Encounter Location Date Provider Diagnosis [address] [address] 09/19/2024 Randy Leal Plan Of Treatment Next Appt Details Provider Name:Randy Leal , 11/20/2025 03:00:00 PM, [address] [place], [address], Progress Notes * ERMELINDAKatherine SORIADOB: 5 (80 yo F)Acc No.[id number]:09/19/2024 Progress Note Patient: Katherine FARMER Provider: Adelina Leal DPM :1945 A ge:79 Y S ex:Female Date:09/19/2024 Address:[address] [place], [place] [id number] Pcp:Shelby Sandoval MD Subjective: * Chief Complaints: [...] Date: 11/20/2023 Generated for Herber olea/Rolando/Emely on: 1 11/21/2024 12:21 PM EST
--- OUTSIDE RECORDS SUMMARY | 2025-03-27 04:30 | XMS_ITS ---
Author Organization [facility] Address [address] [place] [address] Care Team Providers Care Waterproofing Mixer Name Role Phone Jaime VORA, Shelby Primary Care Provider Unavail Randy Marshall Unavailable [phone] Encounters Encounter Location Date Provider Diagnosis [address] [address] 03/27/2025 Randy Leal Plan Of Treatment Next Appt Details Provider Name:Randy Leal , 11/20/2025 03:00:00 PM, [address] [place], [address], Progress Notes * CLAYKatherine BATRESDOB: 5 (80 yo F)Acc No.[id number]:03/27/2025 Progress Note Patient: Katherine FARMER Provider: Adelina Leal DPM :1945 A ge:79 Y S ex:Female Date:03/27/2025 Address:[address] [place], [place] [id number] Pcp:Shelby Sandoval MD Subjective: * Chief Complaints: [...] 03/27/2025 Generated for Herber olea/Rolando/Emely on: 1 11/21/2024 12:21 PM EST
--- NOTE | 2025-09-20 10:04 | A.OFFVIS_ITS ---
Vital Signs 09/20/25 10:07 Height 4 ft 9 in Weight 180 lb 6 oz BMI 39.0 Intake Visit Reasons: mass and lump, trunk Intake Note: Patient presents for an assessment for mass and lump of the trunk. Pt c/o; left posterior thigh, mass. Inside Sales Account Manager Required: Yes Inside Sales Account Manager Language: Product Development Worker Services: Inside Sales Account Manager Present Inside Sales Account Manager Name: Anel Information Interpreted: non-clinical & clinical Accompanied by: Spouse, Daughter Allergies ibuprofen (From Motrin) Allergy (Intermediate, Verified 09/20/25 10:05) High Blood Pressure, Rash oxycodone (From Percocet) Allergy (Intermediate, Verified 09/20/25 10:05) Itching tirzepatide (From Mounjaro) Adverse Reaction (Severe, Verified 09/20/25 10:05) Diarrhea Medication List - Last Reconciled 09/20/25 by Homar Strickland MD acetaminophen ER 1,300 mg (2 x 650 mg) PO Q8H PRN 30 days albuterol sulfate 90 mcg/actuation 2 inhalations inhalation Q6H PRN 30 days amlodipine 10 mg PO DAILY aspirin 81 mg PO BEDTIME 90 days atorvastatin 80 mg PO BEDTIME 90 days blood pressure monitor As directed blood sugar diagnostic (FreeStyle Lite Strips) Use daily As directed to check blood glucose blood sugar diagnostic (FreeStyle Lite Strips) 3times a day blood-glucose meter (FreeStyle Twain Lite kit) As directed blood-glucose meter (FreeStyle Lite Meter kit) Use daily As directed to check blood sugars blood-glucose sensor (Dexcom G7 Sensor device) Use daily As directed to monitor blood glucose. Change q 10 days blood-glucose,piece goods packer,cont (Dexcom G7 Purchaser) use daily As directed to monitor blood glucose brimonidine 0.2% 1 drp ophthalmic (eye) TID calcium acetate(phosphat bind) 667 mg PO BID 90 days cane As directed cholecalciferol (vitamin D3) 25 mcg PO DAILY 3 months clopidogrel 75 mg PO DAILY clotrimazole-betamethasone 1-0.05 % 1 appl topical BID 7 days [Diabetic shoes with inserts As directed] disposable gloves As directed esomeprazole magnesium (Nexium) 40 mg PO DAILY ferrous sulfate 325 mg PO .once a week 90 days fluticasone propionate 50 mcg/actuation 1 spray intranasal DAILY PRN 30 days bumlgiwgxwa-exvgkuibi-mxqggaky 200-62.5-25 mcg (Trelegy Ellipta) 1 inh inhalation DAILY 30 days folic acid 1 mg PO QAM 90 days FreeStyle Lancets (lancets) 3 times a day NS gabapentin 300 mg PO BEDTIME 90 days glucagon 3 mg/actuation (Baqsimi) mg intranasal hydralazine 25 mg PO TID 90 days hydrocortisone 1% (Anti-Itch (hydrocortisone)) 1 appl topical BID PRN 4 weeks [incomtinemce liner pads As directed] insulin glargine U-300 conc (Toujeo SoloStar U-300 Insulin) 24 units (0.08 mL) subcut DAILY 90 days ipratropium-albuterol 0.5 mg-3 mg(2.5 mg base)/3 mL 3 mL inhalation RQ4H WHILE AWAKE ketoconazole 2% 1 appl topical 2XW 30 days lancets (TRUEplus Lancets) As directed test 4 times a day lancets (FreeStyle Lancets) use daily as directed to check blood glucose latanoprost 0.005% 1 drp ophthalmic (eye) QPM losartan 25 mg PO DAILY 90 days meclizine (Travel-Ease (meclizine)) 12.5 mg (1/2 x 25 mg) PO BID PRN methylcellulose (laxative) (Citrucel) 500 mg PO DAILY montelukast 10 mg PO QPM 90 days Novolog FlexPen U-100 Insulin (insulin aspart U-100) 4 units (0.04 mL) subcut TID NS Oxygen Home Use As directed pen needle, diabetic (BD Sia 2nd Gen Pen Needle) 5 times a day semaglutide (Ozempic) 2 mg (0.75 mL) subcut QWEEK simethicone (Gas Relief (simethicone)) 125 mg PO BID PRN 90 days sucralfate 1 g PO BID PRN torsemide 20 mg PO BID [wipes As directed] HPI HPI mass and lump, trunk: Details: [age] year old female referred for a mass in the left buttock. She says that she has noticed this for about 5 months now. She denies any increased in size. She denies any skin changes. She does state that she has just ?feels? this mass and sometimes this can be uncomfortable. She denies any trauma to the area. She denies any discharge. She does have multiple medical problems including hypertension, diabetes, chronic kidney disease, COPD, morbid obesity, arthralgia, and obstructive sleep apnea. 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 Aortic stenosis CKD (chronic kidney disease) stage 3, GFR 30-59 ml/min Dyslipidemia Diabetic polyneuropathy associated with type 2 diabetes mellitus Diabetic nephropathy associated with type 2 diabetes mellitus Chronic kidney disease Hypertension Asthma Thalamic pain syndrome GERD (gastroesophageal reflux disease) Morbid obesity Surgical History H/O colonoscopy H/O aortic valve replacement History of breast lump/mass excision History of tubal ligation History of cholecystectomy Family History Sister History of renal pelvis cancer Father Suicide Mother Lung disease Diabetes mellitus Social History Household Members: Family Housing: House Do you presently have visiting nurse or other home services: Yes (filter 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 Patient Tobacco Use Status: Former Tobacco user Tobacco use type: Cigarette Years Smoked: 5 years e-Cigarette/Vaping Use: Never Used Second Hand Smoke Exposure: No service: No Current occupational status: unemployed and disabled Gender identity: Female Cognitive needs: Yes Hearing needs: No Vision needs: No Female Reproductive History Menstrual Age of Menarche: 10 Review of Systems Const Denies chills and Denies fever(s) Card Denies chest pain, Denies dyspnea and Reports dyspnea on exertion Resp Denies cough, Denies dyspnea and Reports dyspnea on exertion GI Denies hematochezia and Denies change in bowel habits Denies hematuria Musc Reports abnormal gait, Denies back pain, Reports arthralgias and Denies limited range of motion Neuro Reports abnormal gait, Denies focal weakness and Denies convulsions Psych Denies depression and Denies mood swings Physical Exam Vital Signs: BMI result Body Mass Index 39.0 Const Other: Walks with a cane General: comfortable and no acute distress Nutritional Appearance: obese Orientation/consciousness: patient oriented x3 Neck Neck: Yes no lymphadenopathy Resp Auscultation: clear to auscultation bilaterally Cardio Rhythm: regular rhythm GI Palpation (GI): Soft to palpation, nontender and no guarding Back/Spine/Pelvis Other: In the left buttock in the deep subcutaneous area is note of a mobile well- defined mass, rubbery in consistency, about 3 cm in diameter consistent with a lipoma Neuro General: patient oriented x3 Assessment & Plan Assessment & Plan (1) Mass of buttock: Comment: left Code(s): R22.2 - Localized swelling, mass and lump, trunk Category: Medical Plan: This appears to be a lipoma on exam. This actually feels to be very deep in the subcutaneous layer. I explained to them that to re-excise this I would recommend doing this under anesthesia. The patient and her family state that they do not want her to undergo surgery. They would prefer to have this observed especially in view of the benign findings. I did tell them that if she feels that this has bothering her a lot more or that this has changed or if they have any concerns at some point, she should come back to the office to be re-evaluated. The daughter says that the patient has multiple medical problems and is not in good health so they would not want to proceed with surgical intervention at this time. Coding Level of Care Code New Pt Level 3 (68894) Diagnoses Mass of buttock R22.2
[2025-09-20 10:07] VITALS: BMI 39.0
--- OUTSIDE RECORDS SUMMARY | 2025-09-20 12:21 | XMS_ITS | Encounter Summary ---
Author Organization [employer] [facility] Address [address] [place] [address] 7t [place] [address] Care Team Providers Care Certified Executive Chef Name Role Phone Marycarmen Quijano MD Primary Care Provider [phone] Reason for Visit * Reason Comments Med Refill Encounter Details Date Type Department Care Team ([facility] Contact Info) Description 04/15/2023 Refill [facility] MEDICINE [address] [place] [address] Marycarmen Quijano MD [address] [place] [address] Social History Tobacco Use Types Packs/Day Years [...] 1:30 PM EDT Office Visit [facility] ADULT DENTAL [address] [place] [address] RadhaJohana [address] [place] [address] documented as of this encounter Visit Diagnoses Not on filedocumented in this encounter Care Teams Certified Executive Chef Relationship Specialty Start Date End Date Marycarmen Quijano MD [address] [place] [address] PCP - General Family Medicine 03/02/23 06/20/23 documented as of this encounter
--- OUTSIDE RECORDS SUMMARY | 2025-09-20 12:21 | XMS_ITS | Encounter Summary ---
Author Organization [employer] Address [address] [facility] 7t [place] [address] Care Team Providers Care Bulk Tank Car Unloader Name Role Phone Marycarmen Quijano MD Primary Care Provider [phone] Reason for Visit * Reason Comments Med Refill Encounter Details Date Type Department [facility] Description 03/03/2023 Refill [facility] MED & PEDS [address] [place], [place] [phone] Marycarmen Quijano MD [address] [place] [address] Primary hypertension Social History Tobacco Use Types [...] Description 01/28/2026 1:30 PM EDT Office Visit [facility] ADULT DENTAL [address] [place] [address] RadhaJohana [address] [place] [address] documented as of this encounter Visit Diagnoses Diagnosis Primary hypertension Unspecified essential hypertension documented in this encounter Care Teams Bulk Tank Car Unloader Relationship Specialty Start Date End Date Marycarmen Quijano MD [address] [place] [address] PCP - General Family Medicine 03/02/23 06/20/23 documented as of this encounter
--- OUTSIDE RECORDS SUMMARY | 2025-09-20 12:21 | XMS_ITS | Encounter Summary ---
Author Organization [employer] Address [address] [facility] 7t [place] [address] Care Team Providers Care Flowers Salesperson Name Role Phone Marycarmen Quijano MD Primary Care Provider [phone] Reason for Visit * Reason Comments Med Refill Encounter Details Date Type Department Care Team ([facility] Contact Info) Description 03/10/2023 Refill [facility] CHC MED & PEDS [address] [place], [place] [phone] Marycarmen Quijano MD [address] [place] [address] Primary hypertension Social History Tobacco Use Types [...] Description 01/28/2026 1:30 PM EDT Office Visit [facility] ADULT DENTAL [address] [place] [address] Santos Garciaaris [address] [place] [address] documented as of this encounter Visit Diagnoses Diagnosis Primary hypertension Unspecified essential hypertension documented in this encounter Care Teams Flowers Salesperson Relationship Specialty Start Date End Date Marycarmen Quijano MD [address] [place] [address] PCP - General Family Medicine 03/02/23 06/20/23 documented as of this encounter
--- OUTSIDE RECORDS SUMMARY | 2025-09-20 12:21 | XMS_ITS | Encounter Summary ---
Author Organization [employer] [facility] Address [address] [place] [address] 7t [place] [address] Care Team Providers Care Quality Officer Name Role Phone Marycarmen Quijano MD Primary Care Provider [phone] Reason for Visit * Reason Comments Med Refill Encounter Details Date Type Department Care Team ([facility] Contact Info) Description 04/04/2023 Refill [facility] MEDICINE [address] [place] [address] Marycarmen Quijano MD [address] [place] [address] Social History Tobacco Use Types Packs/Day Years [...] ([facility] Contact Info) Description 01/28/2026 1:30 PM EDT Office Visit [facility] ADULT DENTAL [address] [place] [address] RadhaJohana [address] [place] [address] documented as of this encounter Visit Diagnoses Not on filedocumented in this encounter Care Teams Quality Officer Relationship Specialty Start Date End Date Marycarmen Quijano MD [address] [place] [address] PCP - General Family Medicine 03/02/23 06/20/23 documented as of this encounter
--- OUTSIDE RECORDS SUMMARY | 2025-09-20 12:21 | XMS_ITS | Encounter Summary ---
Author Organization [employer] Address [address] [place] [address] 7t [place] [address] Care Team Providers Care Curatorial Assistant Name Role Phone Marycarmen Quijano MD Primary Care Provider [phone] Reason for Visit * Reason Comments Med Refill Encounter Details Date Type Department Care Team ([facility] Contact Info) Description 03/07/2023 Refill [facility] MED & PEDS [address] [place], [place] [phone] Marycarmen Quijano MD [address] [place], [place] [phone] Social History Tobacco Use Types Packs/Day Years [...] [facility] [address] [place] [address] Radha, Johana [address] [place] [address] documented as of this encounter Visit Diagnoses Not on filedocumented in this encounter Care Teams Curatorial Assistant Relationship Specialty Start Date End Date Marycarmen Quijano MD [address] [place] [address] PCP - General Family Medicine 03/02/23 06/20/23 documented as of this encounter
--- OUTSIDE RECORDS SUMMARY | 2025-09-20 12:21 | XMS_ITS | Clinical Summary ---
Author Organization [facility] Address [address] [address] Phone Care Team Providers Care Message Broker Developer Name Role Phone Marycarmen Quijano MD Primary Care Provider [phone] Allergies Active Allergy Reactions Criticality Noted Date [...] day Active ergocalciferol (VITAMIN D-2) 1.25 MG (10354 UT) capsule Take 1 capsule by mouth [...] failure 01/28/2021 Atherosclerotic heart diseas e of [place] coronary artery without angina pectoris 01/28/2021 Chronic [...] arteriosclerosis 07/11/2012 Overview (12/07/2022): Cath 01/2010 at [facility] showed LCx 80% and ostial LAD [...] Orders Only [facility] [address] [phone] Alycia Rios ARNP Stage 3b chronic kidney disease (HCC) (Primary Dx); Persistent proteinuria; Renal osteodystrophy; Hypertensive renal disease 06/27/2025 Refill [facility] [address] [phone] Ariane Sexton Stage 3b chronic kidney disease [...] % [facility] Comments From [facility] Creatinine 1.35(H) 0.70 - 1.30 mg/dl PVN[facility] Potassium 4.5 3.5 - 5.1 mmol/L PVNMA Calcium 8.8 8.4 - 10.2 mg/dl PVNMA eGFR Non- 38(L) >60 ml/min PVNMA 09/18/2020 us [facility] [id number] LICITED RESULTS Final Result PVNMA from Last 3 Months or Most Recently Relevant to Health Maintenance Insurance [facility] ([id number]) [facility] ([id number]) Care Teams Message Broker Developer Relationship Specialty Start Date End Date Marycarmen Quijano MD [address] [place] [address] PCP - General 10/14/20
--- OUTSIDE RECORDS SUMMARY | 2025-09-20 12:21 | XMS_ITS | Encounter Summary ---
Author Organization [employer] [facility] Address [address] [place] [address] 7t [place] [address] Care Team Providers Care Appliance Repairer Name Role Phone Marycarmen Quijano MD Primary Care Provider [phone] Reason for Visit * Reason Comments Med Refill Encounter Details Date Type Department Care Team ([facility] Contact Info) Description 02/06/2023 Refill [facility] MEDICINE [address] [place] [address] Marycarmen Quijano MD [address] [place], [place] [phone] Social History Tobacco Use Types Packs/Day Years [...] ([facility] Contact Info) Description 01/28/2026 1:30 PM EDT Office Visit [facility] ADULT DENTAL [address] [place] [address] RadhaJohana [address] [place] [address] documented as of this encounter Visit Diagnoses Not on filedocumented in this encounter Care Teams Appliance Repairer Relationship Specialty Start Date End Date Marycarmen Quijano MD [address] [place] [address] PCP - General Family Medicine 03/02/23 06/20/23 documented as of this encounter
--- OUTSIDE RECORDS SUMMARY | 2025-09-20 12:21 | XMS_ITS | Encounter Summary ---
Author Organization [employer] Address [address] [facility] 7t [place] [address] Care Team Providers Care Investigation Officer Name Role Phone Marycarmen Quijano MD Primary Care Provider [phone] Reason for Visit * Reason Comments Med Refill Encounter Details Date Type Department Care Team ([facility] Contact Info) Description 04/12/[address] [facility] [address] [place] [address] Jose Johnson MD [address] [place] [address] Social History Tobacco Use Types Packs/Day Years [...] [facility]) Description 01/28/2026 1:30 PM EDT Office Visit [facility] ADULT DENTAL [address] [place] [address] RadhaJohana [address] [place] [address] documented as of this encounter Visit Diagnoses Not on filedocumented in this encounter Care Teams Investigation Officer Relationship Specialty Start Date End Date Marycarmen Quijano MD [address] [place] [address] PCP - General Family Medicine 03/02/23 06/20/23 documented as of this encounter
--- OUTSIDE RECORDS SUMMARY | 2025-09-20 12:21 | XMS_ITS | Patient Health Record ---
Author Organization [facility] Address [address] [place] [address] Care Team Providers Care Welding Machine Operator Electroslag Name Role Phone Jaime VORA, Shelby Primary Care Provider Unavail able Randy Leal Unavailable [phone] Allergies Allergen (clinical drug ingredient) Drug/Non Drug [...] Problem Acquired hammer toe of right foot (7789208049794005 ) Other hammer toe(s) (acquired), right foot (M20.41) Active confirmed Problem Acquired hammer toe of left foot (3678508780791129 ) Other hammer toe(s) (acquired), left foot (M20.42) Active confirmed Problem Polyneuropathy due to type 2 diabetes mellitus (510407172) Type 2 diabetes mellitus with diabetic polyneuropathy (E11.42) Active confirmed Vital Signs Blood pressure diastolic 65 mm Hg 07/24/2025 Height 4 ft 9 in in 07/24/2025 Blood pressure systolic 130 mm Hg 07/24/2025 Weight 182 lbs 07/24/2025 BMI 39.38 kg/m2 07/24/2025 Procedures Procedure Date Ordered Date Performed Result Body Sit e 86491-UZPXNEG NAIL, 6 OR MORE 12/26/2024 N/A 72329-Elnnqbuf Plate 12/26/2024 N/A 41292-ACNB SKIN LESIONS, 2 TO 4 12/26/2024 N/A 84097-GKKWIMH NAIL, 6 OR MORE 04/24/2025 N/A 71112-SFQB SKIN LESIONS, 2 TO 4 04/24/2025 N/A 86936-YUENJTV NAIL, 6 OR MORE 07/24/2025 N/A 56388-MKXP SKIN LESIONS, 2 TO 4 07/24/2025 N/A Encounters Encounter Location Date Provider Diagnosis [address] [address] 12/26/2024 Randy Leal Type 2 diabetes mellitus with diabetic polyneuropathy E11.42 ; Tinea unguium B35.1 ; Other hammer toe(s) (acquired), right foot M20.41 ; Other hammer toe(s) (acquired), left foot M20.42 and Subungual hematoma of left foot, initial encounter S90.222A [address] [address] 04/24/2025 Randy Leal Type 2 diabetes mellitus with diabetic polyneuropathy E11.42 ; Tinea unguium B35.1 and Xerosis of skin L85.[address] [address] 07/24/2025 Randy Leal Type 2 diabetes mellitus with diabetic polyneuropathy E11.42 ; Tinea unguium B35.1 and Xerosis of skin L85.[address] [address] 12/26/2024 Randy Leal [address] [address] 03/27/2025 Randy Leal Assessments Encounter Date Diagnosis [...] Treatment Pending Test Test Name Order Date 88788-UFYEOTU NAIL, 6 OR MORE 03/17/2024 27703-XIITJSQ NAIL, 6 OR MORE 06/16/2024 02519-JKYGMJS NAIL, 6 OR MORE 12/26/2024 84800-KLDANJG NAIL, 6 OR MORE 04/24/2025 26764-CCWJLMN NAIL, 6 OR MORE 07/24/2025 54068-Vcejvxqq Plate 12/26/2024 41907-RVNS SKIN LESIONS, 2 TO 4 07/24/20 87986-TEHT SKIN LESIONS, 2 TO 4 04/24/20 11661-OROF SKIN LESIONS, 2 TO 4 12/27/19 09800-NQIF SKIN LESIONS, 2 TO 4 06/16/20 24 25569-DJWX SKIN LESIONS, 2 TO 4 03/17/20 24 Next Appt Details Provider Name:Randy Leal , 11/20/2025 03:00:00 PM, [address] [place] [address], [phone], Insurance Providers Payer Name Payer Address Payer Phone Subscriber Number Group Number Insured Name Patient Relationship to Insured Coverage Start Date Coverage End Date [facility] [employer] Claims [address] [place] [id number] Katherine Jamil Self - patient is the insured Medical (General) History Medical History History ICD Code Anxiety Arthritis asthma Back,Hip,and Knee pain CAD (Cholesterol) Cataracts Depression Diabetic Heart disease High blood pressure Kidney disease Lung disease Numbness Poor circulation Reflux ( GERD) sinusitis Vascular phlebitis (clots) Chicken pox Replacement Heart Valves Transfusions Surgical History Surgery Date(Month/Year)
--- OUTSIDE RECORDS SUMMARY | 2025-09-20 12:22 | XMS_ITS | Encounter Summary ---
Author Organization [facility] Address [address] [place] [address] 7t [place] [address] Care Team Providers Care Life Management Teacher Name Role Phone Unavailable Primary Care Provider Unavailabl e Reason for Visit * Reason Comments Med Refill Encounter Details Date Type Department Care Team (Late st Contact Info) Description 11/29/2023 Refill [facility] MED[facility] [address] [place] [address] Christianne John MD [address] [place] [address] Moderate persistent asthma, unspecified whether complicated Social [...] 01/28/2026 1:30 PM EDT Office Visit [facility] ADULT DENTAL [address] [place] [address] Radha, Johana [address] [place] [address] documented as of this encounter Visit Diagnoses Diagnosis Moderate persistent asthma, unspecified whether complicated documented in this encounter
--- OUTSIDE RECORDS SUMMARY | 2025-09-20 12:22 | XMS_ITS | Encounter Summary ---
Author Organization [facility] Address [address] [place] [address] 7t [place] [address] Care Team Providers Care Retrieval Specialist Name Role Phone Unavailable Primary Care Provider Unavailabl e Reason for Visit * Reason Comments Med Refill Encounter Details Date Type Department Care Team (Late st Contact Info) Description 12/01/2023 Refill [facility] MED[facility]INE [address] [place] [address] Christianne John MD [address] [place] [address] Moderate persistent asthma, unspecified whether complicated Social [...] Description 01/28/2026 1:30 PM EDT Office Visit [facility] ADULT DENTAL [address] [place] [address] Radha, Johana [address] [place] [address] documented as of this encounter Visit Diagnoses Diagnosis Moderate persistent asthma, unspecified whether complicated documented in this encounter
--- OUTSIDE RECORDS SUMMARY | 2025-09-20 12:22 | XMS_ITS | Encounter Summary ---
Author Organization [facility] Address [address] [place] [address] 7t [place] [address] Care Team Providers Care Secretary Of Police Name Role Phone Unavailable Primary Care Provider Unavailabl e Reason for Visit * Reason Comments Med Refill Encounter Details Date Type Department Care Team (Late Contact Info) Description 01/19/2024 Refill [facility] MED[facility]INE [address] [place] [address] Christianne John MD [address] [place] [address] Vitamin deficiency Social History Tobacco Use Types [...] Description 01/28/2026 1:30 PM EDT Office Visit [facility] ADULT DENTAL [address] [place] [address] Santos Garciaaris [address] [place] [address] documented as of this encounter Visit Diagnoses Diagnosis Vitamin deficiency Unspecified vitamin deficiency documented in this encounter
--- OUTSIDE RECORDS SUMMARY | 2025-09-20 12:22 | XMS_ITS | Encounter Summary ---
Author Organization [facility] Address [address] [place] [address] 7 [place] [address] Care Team Providers Care Sr. Merchandise Planner Name Role Phone Marycarmen Quijano MD Primary Care Provider [phone] Marycarmen Quijano MD Primary Care Provider [phone] Reason for Visit * Reason Comments Med Refill Encounter Details Date Type Department Care Team (Late st Contact Info) Description 11/10/2022 Refill [facility] MED[facility] [address] [place], [place] [phone] Marycarmen Quijano MD [address] [place], [place] [phone] Social History Tobacco Use Types Packs/Day Years [...] Description 01/28/2026 1:30 PM EDT Office Visit [facility] ADULT DENTAL [address] [place], [place] [phone] Radha, Johana [address] [place] [address] documented as of this encounter Visit Diagnoses Not on filedocumented in this encounter Care Teams Sr. Merchandise Planner Relationship Specialty Start Date End Date Marycarmen Quijano MD [address] [place] [address] PCP - General Family Medicine 07/26/13 02/01/23 Marycarmen Quijano MD [address] [place] [address] PCP - General Family Medicine 03/02/23 06/20/23 documented as of this encounter
--- OUTSIDE RECORDS SUMMARY | 2025-09-20 12:22 | XMS_ITS | Encounter Summary ---
Author Organization [facility] Address [address] [place] [address] 7t [place] [address] Care Team Providers Care Manager Residential Name Role Phone Unavailable Primary Care Provider Unavailabl e Reason for Visit * Reason Comments Med Refill Encounter Details Date Type Department Care Team (Late st Contact Info) Description 12/02/2023 Refill [facility] [address] [place] [address] Christianne John MD [address] [place] [address] Moderate persistent asthma, unspecified whether complicated Social [...] Visit [facility] ADULT DENTAL 230 [place] [address] Radha, Johana [address] [place] [address] documented as of this encounter Visit Diagnoses Diagnosis Moderate persistent asthma, unspecified whether complicated documented in this encounter
--- OUTSIDE RECORDS SUMMARY | 2025-09-20 12:22 | XMS_ITS | Encounter Summary ---
Author Organization [facility] Address [address] [place] [address] 7t [place] [address] Care Team Providers Care Computer Numeric Control Setter Name Role Phone Marycarmen Quijano MD Primary Care Provider [phone] Marycarmen Quijano MD Primary Care Provider [phone] Encounter Details Date Type Department Care Team [...] [facility] ADULT DENT[facility] [address] [place] [address] Radha, Johana [address] [place] [address] documented as of this encounter Visit Diagnoses Not on filedocumented in this encounter Care Teams Computer Numeric Control Setter Relationship Specialty Start Date End Date Marycarmen Quijano MD 230 [place] [address] PCP - General Family Medicine 07/26/13 02/01/23 Marycarmen Quijano MD [address] [place] [address] PCP - General Family Medicine 03/02/23 06/20/23 documented as of this encounter
--- OUTSIDE RECORDS SUMMARY | 2025-09-20 12:22 | XMS_ITS | Encounter Summary ---
Author Organization [facility] [facility] Address [address] [place] [address] 7t [place] [address] Care Team Providers Care Molding Line Operator Name Role Phone Unavailable Primary Care Provider Unavailabl e Reason for Visit * Reason Comments Med Refill Encounter Details Date Type Department Care Team (Late st Contact Info) Description 11/24/2023 Refill [facility] MED[facility]INE [address] [place] [address] Christianne John MD [address] [place] [address] Moderate persistent asthma, unspecified whether complicated Social [...] [facility] ADULT DENTAL [address] [place] [address] Radha, Johana [address] [place] [address] documented as of this encounter Visit Diagnoses Diagnosis Moderate persistent asthma, unspecified whether complicated documented in this encounter
--- OUTSIDE RECORDS SUMMARY | 2025-09-20 12:22 | XMS_ITS | Clinical Summary ---
Author Organization [employer] Address [address] [facility] 7t [place] [address] Care Team Providers Care Biscuitware Brusher Name Role Phone Unavailable Primary Care Provider [...] BEDTIME 2 Active Blood Glucose Monitoring Suppl (SecureAuthStyle Woodstock Lite) w/Device kit TEST BLOOD SUGAR THREE [...] by mouth at bed time. Active Creon 28409-20768 units capsule 3 Active pantoprazole (ProtoNix) 40 [...] 3 Active ergocalciferol (Vitamin D2) 1.25 MG (49307 UT) capsule TAKE 1 CAPSULE BY MOUTH [...] AM EDT Office Visit [facility] ADULT DENTAL 230 [place] [address] Johana Garcia Partially edentulous mandible, unspecified edentulism [...] PM EDT Office Visit [facility] ADULT DENTAL [address] [place] [address] Johana Garcia [address] [place] [address] Health Maintenance Due Date Last Done Comments [...] average glucose, using the formula of the [id number] Average Glucose study (ADAG), Diabetes Care, Vol.31,#8, [...] [facility] Comment: NOTE: For -Filipino individuals, multiply the result by 1.210. Chronic [...] [facility] [address] from Last 3 Months or Most Recently Relevant to Health Maintenance Insurance # 1 [place] [address] [facility] CORRECTION OPTIONS (O D-SNP) YASMIN FRANCO [id number] DENTAL - [facility]
--- OUTSIDE RECORDS SUMMARY | 2025-09-20 12:22 | XMS_ITS | Encounter Summary ---
Author Organization [facility] Address [address] [place] [address] 7t [place] [address] Care Team Providers Care Crop Or Grain Farmworker Name Role Phone Marycarmen Quijano MD Primary Care Provider [phone] Reason for Visit * Reason Comments Med Refill Encounter Details Date Type Department Care Team ([facility] Contact Info) Description 04/15/2023 Refill [facility] MEDICINE [address] [place] [address] Marycarmen Quijano MD [address] [place] [address] Social History Tobacco Use Types Packs/Day Years [...] Team ([facility] Contact Info) Description 01/28/2026 1:30 PM EDT Office Visit [facility] ADULT DENTAL [address] [place] [address] RadhaJohana [address] [place] [address] documented as of this encounter Visit Diagnoses Not on filedocumented in this encounter Care Teams Crop Or Grain Farmworker Relationship Specialty Start Date End Date Marycarmen Quijano MD [address] [place] [address] PCP - General Family Medicine 03/02/23 06/20/23 documented as of this encounter
== END 2025-09-20 10:28 | disposition home or self-care (01) ==
LOC: HO.HGS 10:03
PROVIDERS: PCP Internal Medicine; Visit Provider Surgery
DX: R22.2 Localized swelling, mass and lump, trunk (principal)
CPT/HCPCS: 99203

== ENCOUNTER → 2025-09-20 10:03 | Outpatient (BNVA) | payer OTHER, SELFPAY | PROVIDERS: PCP Internal Medicine; Visit Provider Surgery | DX: R22.2 Localized swelling, mass and lump, trunk (principal) | CPT/HCPCS: 99202 ==

== ENCOUNTER 2025-10-01 09:42 | Outpatient (AMB) | payer OTHER, SELFPAY ==
--- OUTSIDE RECORDS SUMMARY | 2024-09-19 05:00 | XMS_ITS ---
Author Organization [facility] Address [address] [place] [address] Care Team Providers Care Grain Farmer Name Role Phone Jaime VORA, Shelby Primary Care Provider Unavail Randy Marshall Unavailable [phone] Encounters Encounter Location Date Provider Diagnosis [address] [address] 09/19/2024 Randy Leal Plan Of Treatment Next Appt Details Provider Name:Randy Leal , 11/20/2025 03:00:00 PM, [address] [place], [address], Progress Notes * ERMELINDAKatherine SORIADOB: 5 (80 yo F)Acc No.[id number]:09/19/2024 Progress Note Patient: Katherine FARMER Provider: Adelina Leal DPM :1945 A ge:79 Y S ex:Female Date:09/19/2024 Address:[address] [place], [place] [id number] Pcp:Shelby Sandoval MD Subjective: * Chief Complaints: * * Medical History: Objective: * Vitals: Assessment: Plan: * Treatment: * Images: * The named appointment provid er may or may not be the originator of this progress note, and it is not deemed complete until electronically signed by the appointment provider. Sign off status: Pending * Provider: Adelina Leal DPM Date: 11/20/2023 Generated for Herber olea/Rolando/Nickoitting on: 1 10:20 AM EST
--- OUTSIDE RECORDS SUMMARY | 2025-03-27 04:30 | XMS_ITS ---
Author Organization [facility] Address [address] [place] [address] Care Team Providers Care Barrel Roller Name Role Phone Jaime VORA, Shelby Primary Care Provider Unavail aRndy Marshall Unavailable [phone] Encounters Encounter Location Date Provider Diagnosis [address] [address] 03/27/2025 Randy Leal Plan Of Treatment Next Appt Details Provider Name:Randy Leal , 11/20/2025 03:00:00 PM, [address] [place], [address], Progress Notes * CLAYKatherine BATRESDOB: 5 (80 yo F)Acc No.[id number]:03/27/2025 Progress Note Patient: Katherine FARMER Provider: Adelina Leal DPM :1945 A ge:79 Y S ex:Female Date:03/27/2025 Address:[address] [place], [place] [phone] Pcp:Shelby Sandoval MD Subjective: * Chief Complaints: * * Medical History: Objective: * Vitals: Assessment: Plan: * Treatment: * Images: * The named appointment provid er may or may not be the originator of this progress note, and it is not deemed complete until electronically signed by the appointment provider. Sign off status: Pending * Provider: Adelina Leal DPM Date: 0 03/27/2025 Generated for Herber olea/Rolando/Nickoitting on: 1 10:20 AM EST
--- NOTE | 2025-10-01 09:40 | A.OFFPC_ITS ---
Intake Visit Reasons: dm Allergies ibuprofen (From Motrin) Allergy (Intermediate, Verified 10/01/25 09:40) High Blood Pressure, Rash oxycodone (From Percocet) Allergy (Intermediate, Verified 10/01/25 09:40) Itching tirzepatide (From Mounjaro) Adverse Reaction (Severe, Verified 10/01/25 09:40) Diarrhea Tobacco use date assessed: 10/01/25 Fall risk assessment: No Falls in past year Last assessed Fall Risk: 10/01/25 Dental Screening Dental Screen Date: 10/01/25 Did you have a dental visit in the last 12 months?: Yes Did you have a dental problem in the last 6 months where you did not have access to dental care?: No Was dental information given to patient?: Patient has dentist HPI HPI Comments History of Present Illness Details This is an 80-year-old female with diabetes mellitus type 2, COPD, chronic kidney disease stage 3, essential hypertension, congestive heart failure and iron-deficiency anemia that has tele health visit by phone complaining of acute diarrhea that started few days ago associated with fecal incontinence. There was sick contacts in her household. Apparently she was not using Ozempic at the time. I will order stool samples. Her A1c is 7.2% which is close to goal. COPD has been stable and follow by pulmonology. Will order labs to evaluate GFR and chronic kidney disease is follow by Nephrology. Has not taking her blood pressure at home. Has not gain 5 lb in a week. LDL goal is less than 70. Hemoglobin did worsened and I told her to take ferrous sulfate once a day. [facility] Medical History (Updated 10/01/25 @ 10:47 by Shelby Golden MD) Calcification of uterus Mass of buttock Pelvic pain T2DM (type 2 diabetes mellitus) Acute exacerbation of CHF (congestive heart failure) Acute on chronic diastolic (congestive) heart failure Acute exacerbation of CHF (congestive heart failure) Acute respiratory failure with hypoxia Flash pulmonary edema Dyspnea Furuncle Vulvar itching Vaginal lump Pleural effusion Exocrine pancreatic insufficiency Renal cyst, acquired, right Back pain Vitamin D deficiency HLD (hyperlipidemia) JOSE (obstructive sleep apnea) 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 Aortic stenosis CKD (chronic kidney disease) stage 3, GFR 30-59 ml/min Dyslipidemia Diabetic polyneuropathy associated with type 2 diabetes mellitus Diabetic nephropathy associated with type 2 diabetes mellitus Chronic kidney disease Hypertension Asthma Thalamic pain syndrome GERD (gastroesophageal reflux disease) Morbid obesity Surgical History (Reviewed 10/01/25 @ 09:40 by Kamala Calles [facility]) H/O colonoscopy H/O aortic valve replacement History of breast lump/mass excision History of tubal ligation History of cholecystectomy Family History (Reviewed 10/01/25 @ 09:40 by Kamala Calles [facility]) Sister History of renal pelvis cancer Father Suicide Mother Lung disease Diabetes mellitus Social History (Reviewed 10/01/25 @ 09:40 by Kamlaa Calles [facility]) Household Members: Family Housing: House Do you presently have visiting nurse or other home services: Yes (history card clerk) Alcohol intake: never Comment: pt stays with pt. Patient Tobacco Use Status: Former Tobacco user Tobacco use type: Cigarette Years Smoked: 5 years e-Cigarette/Vaping Use: Never Used Second Hand Smoke Exposure: No service: No Current occupational status: unemployed and disabled Gender identity: Female Cognitive needs: Yes Hearing needs: No Vision needs: No Female Reproductive History Menstrual Age of Menarche: 10 Questionnaire PHQ-9 Over the last 2 weeks, how often have you been bothered by any of the following problems? 1. Little interest or pleasure in doing things: not at all 2. Feeling down, depressed, or hopeless: not at all 3. Trouble falling or staying asleep, or sleeping too much: not at all 4. Feeling tired or having little energy: several days 5. Poor appetite or overeating: not at all 6. Feeling bad about yourself - or that you are a failure or have let yourself or your family down: not at all 7. Trouble concentrating on things, such as reading the newspaper or watching television: not at all 8. Moving or speaking so slowly that other people could have noticed. Or the opposite - being so fidgety or restless that you have been moving around a lot more than usual: not at all 9. Thoughts that you would be better off or of hurting yourself in some way: not at all Total score: 1 Depression Screening Interpretation: Negative Depression Screening Done: Yes Source: Developed by Drs. Farhad Murdock, Caron Elkins, El Esqueda and colleagues, with an educational susanne from [employer]. Thrive Questionnaire Date Thrive assessed: 06/30/25 I am a: Patient What is your living situation today?: I have a steady place to live Within the past 12 months, did the food you bought not last and you didn't have the money to get more?: Never true Within the past 12 months, did you worry whether your food would run out before you got money to buy more?: Never true Do you have trouble paying for medicines?: No Do you have trouble getting transportation to medical appointments?: No Do you have trouble paying your heating and electricity bill?: No Do you have trouble taking care of your child, family member or friend?: No Do you have trouble with day-to-day activities such as bathing, preparing meals, shopping, managing finances, etc.?: No Are you currently unemployed and looking for a job?: Yes Are you interested in more education?: No Please select the resources that you would like help with: None Currently or been in a relationship where the following occur: No concerns reported THRIVE Score: 0 AUDIT C Alcohol Use Questionnaire (AUDIT-C) 1. How often do you have a drink containing alcohol?: Never 3. How often do you have six or more drinks on one occasion?: Never Total Score: 0 JES-7 AMB Questionnaire JES-7 Date JES - 7 assessed: 05/21/25 Feeling nervous, anxious, or on edge: 0 = Not at all Not being able to stop or control worryin = Not at all Worrying too much about different things: 0 = Not at all Trouble relaxin = Not at all Being so restless that it is hard to sit still: 0 = Not at all Becoming easily annoyed or irritable: 0 = Not at all Feeling afraid as if something awful might happen: 0 = Not at all Total JES-7 score (0-4 normal; 5-9 mild; 10-14 moderate; 15-21 severe): 0 Source: Developed by Drs. Farhad Murdock, Caron Elkins, El Esqueda and colleagues, with an educational susanne from [employer]. Physical exam (Primary Care) Tobacco/Smoking Status: Tobacco use Status Tobacco use date assessed 10/01/25 10/01/25 09:41 Patient Tobacco Use Status Former Tobacco user 10/01/25 09:41 Tobacco use type Cigarette 10/01/25 09:41 e-Cigarette/Vaping Use Never Used 10/01/25 09:41 PHQ-9: PHQ-9 Score PHQ-9: Total score 1 10/01/25 10:01 Depression Screening Interpretation: Negative Thrive Assessment: Date of Thrive Assessment Date Thrive assessed 04/02/25 10/01/25 09:41 Currently or been in a relationship where the following occur: No concerns reported Telehealth Telehealth Telehealth Platform: Telephone Location of provider rendering services: practice address Location of patient: address on file Patient Identification confirmed using: Name, : Yes Telehealth method: voice only Patient verbally consented to treatment: Yes Patient verbally consented to billing insurance company: Yes Patient informed of any privacy concerns related to visit: Yes Minutes spent on Phone/Video with Pt.: 15 Coding Level of Care Code Tele Est Pt Level 4 (58583) Diagnoses Chronic systolic congestive heart failure I50.22 Heart failure chronicity: chronic Heart failure type: systolic COPD (chronic obstructive pulmonary disease) J44.9 CKD stage 3b, GFR 30-44 ml/min N18.32 Essential hypertension I10 Diabetes mellitus E11.9 Iron deficiency anemia D50.9 Time Spent (min) 15 Assessment & Plan Assessment & Plan (1) Congestive heart failure: Code(s): I50.9 - Heart failure, unspecified Category: Medical Qualifiers: Heart failure chronicity: chronic Heart failure type: systolic Qualified Code(s): I50.22 - Chronic systolic (congestive) heart failure (2) COPD (chronic obstructive pulmonary disease): Code(s): J44.9 - Chronic obstructive pulmonary disease, unspecified Category: Medical (3) CKD stage 3b, GFR 30-44 ml/min: Code(s): N18.32 - Chronic kidney disease, stage 3b Category: Medical (4) Essential hypertension: Code(s): I10 - Essential (primary) hypertension Category: Medical (5) Diabetes mellitus: Code(s): E11.9 - Type 2 diabetes mellitus without complications Category: Medical (6) Iron deficiency anemia: Code(s): D50.9 - Iron deficiency anemia, unspecified Category: Medical Plan Stool samples ordered to rule out infection. A1c goal is equal or less than 7%. Blood pressure goal is equal or less than 130/80. LDL goal is less than 70. Change ferrous sulfate to daily. Orders: Orders Giardia Ag Stool EIA Today R19.7 - Diarrhea, unspecified H pylori Ag Stool Today R19.7 - Diarrhea, unspecified CDiff Gene PCR Today R19.7 - Diarrhea, unspecified Leukocytes Stool Qualitative Today R19.7 - Diarrhea, unspecified Medications: Changed From ferrous sulfate 325 mg PO .once a week 90 days 15 tabs 1RF D50.9 - Iron deficiency anemia, unspecified To ferrous sulfate 325 mg PO DAILY 90 tabs 1RF 90 days D50.9 - Iron deficiency anemia, unspecified
--- OUTSIDE RECORDS SUMMARY | 2025-10-01 10:20 | XMS_ITS | Encounter Summary ---
Author Organization [employer] [facility] Address [address] [place] [address] 7t [place] [address] Care Team Providers Care Spud Sorter Name Role Phone Marycarmen Quijano MD Primary Care Provider [phone] Reason for Visit * Reason Comments Med Refill Encounter Details Date Type Department Care Team ([facility] Contact Info) Description 04/15/2023 Refill [facility] MEDICINE [address] [place] [address] Marycarmen Quijano MD [address] [place] [address] Social History Tobacco Use Types Packs/Day Years [...] Description 01/28/2026 1:30 PM EDT Office Visit [facility] ADULT DENTAL [address] [place] [address] RadhaJohana [address] [place] [address] documented as of this encounter Visit Diagnoses Not on filedocumented in this encounter Care Teams Spud Sorter Relationship Specialty Start Date End Date Marycarmen Quijano MD [address] [place] [address] PCP - General Family Medicine 03/02/23 06/20/23 documented as of this encounter
--- OUTSIDE RECORDS SUMMARY | 2025-10-01 10:20 | XMS_ITS | Encounter Summary ---
Author Organization [employer] Address [address] [facility] 7t [place] [address] Care Team Providers Care Cloth Folder Hand Name Role Phone Marycarmen Quijano MD Primary Care Provider [phone] Reason for Visit * Reason Comments Med Refill Encounter Details Date Type Department Care Team ([facility] Contact Info) Description 03/03/2023 Refill [facility] PEDS [address] [place], [place] [phone] Marycarmen Quijano MD [address] [place] [address] Primary hypertension Social History Tobacco Use Types [...] Upcoming Encounters Date Type Department Care Team ([facility] Contact Info) Description 01/28/2026 1:30 PM EDT Office Visit [facility] ADULT DENTAL 230 [place] [address] RadhaJohana [address] [place] [address] documented as of this encounter Visit Diagnoses Diagnosis Primary hypertension Unspecified essential hypertension documented in this encounter Care Teams Cloth Folder Hand Relationship Specialty Start Date End Date Marycarmen Quijano MD [address] [place] [address] PCP - General Family Medicine 03/02/23 06/20/23 documented as of this encounter
--- OUTSIDE RECORDS SUMMARY | 2025-10-01 10:20 | XMS_ITS | Encounter Summary ---
Author Organization [employer] Address [address] [facility] 7t [place] [address] Care Team Providers Care Sugar Reprocess Operator Head Name Role Phone Marycarmen Quijano MD Primary Care Provider [phone] Reason for Visit * Reason Comments Med Refill Encounter Details Date Type Department Care Team ([facility] Contact Info) Description 04/12/2023 Refill [facility] [address] [place] [address] Jose Johnson MD [address] [place] [address] Social History Tobacco Use Types Packs/Day Years [...] ([facility] Contact Info) Description 01/28/2026 1:30 PM EDT Office Visit [facility] ADULT DENTAL [address] [place] [address] RadhaJohana [address] [place] [address] documented as of this encounter Visit Diagnoses Not on filedocumented in this encounter Care Teams Sugar Reprocess Operator Head Relationship Specialty Start Date End Date Marycarmen Quijano MD [address] [place] [address] PCP - General Family Medicine 03/02/23 06/20/23 documented as of this encounter
--- OUTSIDE RECORDS SUMMARY | 2025-10-01 10:20 | XMS_ITS | Encounter Summary ---
Author Organization [employer] Address [address] [place] [address] 7t [place] [address] Care Team Providers Care Funeral Director/Embalmer/Owner Name Role Phone Marycarmen Quijano MD Primary Care Provider [phone] Reason for Visit * Reason Comments Med Refill Encounter Details Date Type Department Care Team ([facility] Contact Info) Description 03/07/2023 Refill [facility] & PEDS [address] [place], [place] [phone] Marycarmen Quijano MD [address] [place], [place] [phone] Social History Tobacco Use Types Packs/Day Years [...] ([facility] Contact Info) Description 01/28/2026 1:30 PM EDT Office Visit [facility] ADULT DENTAL [address] [place] [address] Radha, Johana [address] [place] [address] documented as of this encounter Visit Diagnoses Not on filedocumented in this encounter Care Teams Funeral Director/Embalmer/Owner Relationship Specialty Start Date End Date Marycarmen Quijano MD [address] [place] [address] PCP - General Family Medicine 03/02/23 06/20/23 documented as of this encounter
--- OUTSIDE RECORDS SUMMARY | 2025-10-01 10:20 | XMS_ITS | Encounter Summary ---
Author Organization [employer] [facility] Address [address] [place] [address] 7t [place] [address] Care Team Providers Care Split Leather Mosser Name Role Phone Marycarmen Quijano MD Primary Care Provider [phone] Reason for Visit * Reason Comments Med Refill Encounter Details Date Type Department Care Team ([facility] Contact Info) Description 02/06/2023 Refill [facility] MEDICINE [address] [place] [address] Marycarmen Quijano MD [address] [place], [place] [phone] Social History Tobacco Use Types Packs/Day Years [...] Department Care Team ([facility] Contact Info) Description 01/28/2026 1:30 PM EDT Office Visit [facility] ADULT DENTAL [address] [place] [address] RadhaJohana [address] [place] [address] documented as of this encounter Visit Diagnoses Not on filedocumented in this encounter Care Teams Split Leather Mosser Relationship Specialty Start Date End Date Marycarmen Quijano MD [address] [place] [address] PCP - General Family Medicine 03/02/23 06/20/23 documented as of this encounter
--- OUTSIDE RECORDS SUMMARY | 2025-10-01 10:20 | XMS_ITS | Encounter Summary ---
Author Organization [employer] Address [address] [facility] 7t [place] [address] Care Team Providers Care Farmworker Fruit Name Role Phone Marycarmen Quijano MD Primary Care Provider [phone] Reason for Visit * Reason Comments Med Refill Encounter Details Date Type Department Care Team ([facility] Contact Info) Description 03/10/2023 Refill [facility] CH[facility] MED & PEDS [address] [place], [place] [phone] Marycarmen Quijano MD [address] [place] [address] Primary hypertension Social History Tobacco Use Types [...] 01/28/2026 1:30 PM EDT Office Visit [facility] ADULT DENTAL [address] [place] [address] Santos Garciaaris [address] [place] [address] documented as of this encounter Visit Diagnoses Diagnosis Primary hypertension Unspecified essential hypertension documented in this encounter Care Teams Farmworker Fruit Relationship Specialty Start Date End Date Marycarmen Quijano MD [address] [place] [address] PCP - General Family Medicine 03/02/23 06/20/23 documented as of this encounter
--- OUTSIDE RECORDS SUMMARY | 2025-10-01 10:20 | XMS_ITS | Encounter Summary ---
Author Organization [employer] [facility] Address [address] [place] [address] 7t [place] [address] Care Team Providers Care Electric Serviceman Name Role Phone Marycarmen Quijano MD Primary Care Provider Reason for Visit * Reason Comments Med Refill Encounter Details Date Type Department Care Team ([facility] Contact Info) Description 04/04/2023 Refill [facility] MEDICINE [address] [place] [address] Marycarmen Quijano MD [address] [place] [address] Social History Tobacco Use Types Packs/Day Years [...] Date Type Department Care Team ([facility] Contact Info) Description 01/28/2026 1:30 PM EDT Office Visit [facility] ADULT DENTAL [address] [place] [address] RadhaJohana [address] [place] [address] documented as of this encounter Visit Diagnoses Not on filedocumented in this encounter Care Teams Electric Serviceman Relationship Specialty Start Date End Date Marycarmen Quijano MD [address] [place] [address] PCP - General Family Medicine 03/02/23 06/20/23 documented as of this encounter
--- OUTSIDE RECORDS SUMMARY | 2025-10-01 10:21 | XMS_ITS | Encounter Summary ---
Author Organization [employer] [facility] Address [address] [place] [address] 7 [place] [address] Care Team Providers Care Receiver Bulk System Name Role Phone Marycarmen Quijano MD Primary Care Provider Marycarmen Quijano MD Primary Care Provider [phone] Reason for Visit * Reason Comments Med Refill Encounter Details Date Type Department Care Team (Late st Contact Info) Description 11/10/2022 Refill [facility] MEDICINE [address] [place], [place] [phone] Marycarmen Quijano MD [address] [place], [place] [phone] Social History Tobacco Use Types Packs/Day Years [...] 1:30 PM EDT Office Visit [facility] ADULT DENTAL [address] [place], [place] [phone] Radha, Johana [address] [place] [address] documented as of this encounter Visit Diagnoses Not on filedocumented in this encounter Care Teams Receiver Bulk System Relationship Specialty Start Date End Date Marycarmen Quijano MD [address] [place] [address] PCP - General Family Medicine 07/26/13 02/01/23 Marycarmen Quijano MD [address] [place] [address] PCP - General Family Medicine 03/02/23 06/20/23 documented as of this encounter
--- OUTSIDE RECORDS SUMMARY | 2025-10-01 10:21 | XMS_ITS | Encounter Summary ---
Author Organization [employer] [facility] Address [address] [place] [address] 7t [place] [address] Care Team Providers Care Resource Conservationist Name Role Phone Marycarmen Quijano MD Primary Care Provider [phone] Marycarmen Quijano MD Primary Care Provider [phone] Encounter Details Date Type Department Care Team (Latest Contact Info) Description 06/16/2021 Abstract [facility] CONVERSIONS Dental, Provider, DDS Social History [...] [facility] ADULT DENTAL [address] [place] [address] Radha, Johana [address] [place] [address] documented as of this encounter Visit Diagnoses Not on filedocumented in this encounter Care Teams Resource Conservationist Relationship Specialty Start Date End Date Marycarmen Quijano MD 230 [place] [address] PCP - General Family Medicine 07/26/13 02/01/23 Marycarmen Quijano MD [address] [place] [address] PCP - General Family Medicine 03/02/23 06/20/23 documented as of this encounter
--- OUTSIDE RECORDS SUMMARY | 2025-10-01 10:21 | XMS_ITS | Encounter Summary ---
Author Organization [employer] [facility] Address [address] [place] [address] 7t [place] [address] Care Team Providers Care Cashier Parking Lot Name Role Phone Unavailable Primary Care Provider Unavailabl e Reason for Visit * Reason Comments Med Refill Encounter Details Date Type Department Care Team (Late st Contact Info) Description 12/02/2023 Refill [facility] MEDICINE [address] [place] [address] Christianne John MD [address] [place] [address] Moderate persistent asthma, unspecified whether complicated Social [...] 01/28/2026 1:30 PM EDT Office Visit [facility] ADULT DENTAL [address] [place] [address] Radha, Johana [address] [place] [address] documented as of this encounter Visit Diagnoses Diagnosis Moderate persistent asthma, unspecified whether complicated documented in this encounter
--- OUTSIDE RECORDS SUMMARY | 2025-10-01 10:21 | XMS_ITS | Encounter Summary ---
Author Organization [employer] [facility] Address [address] [place] [address] 7t [place] [address] Care Team Providers Care Objective C Developer Name Role Phone Unavailable Primary Care Provider Unavailabl e Reason for Visit * Reason Comments Med Refill Encounter Details Date Type Department Care Team (Late st Contact Info) Description 12/01/2023 Refill [facility] MEDICINE [address] [place] [address] Christianne John MD [address] [place] [address] Moderate persistent asthma, unspecified whether complicated Social [...] [facility] [address] [place] [address] Radha, Johana [address] [place] [address] documented as of this encounter Visit Diagnoses Diagnosis Moderate persistent asthma, unspecified whether complicated documented in this encounter
--- OUTSIDE RECORDS SUMMARY | 2025-10-01 10:21 | XMS_ITS | Patient Health Record ---
Author Organization [facility] Address [address] [place] [address] Care Team Providers Care Spike Machine Feeder Name Role Phone Jaime VORA, Shelby Primary Care Provider Unavail able Randy Leal Unavailable [phone] Allergies Allergen (clinical drug ingredient) Drug/Non Drug [...] Problem Acquired hammer toe of right foot (8057539458069862 ) Other hammer toe(s) (acquired), right foot (M20.41) Active confirmed Problem Acquired hammer toe of left foot (9503073928396638 ) Other hammer toe(s) (acquired), left foot (M20.42) Active confirmed Problem Polyneuropathy due to type 2 diabetes mellitus (943944851) Type 2 diabetes mellitus with diabetic polyneuropathy (E11.42) Active confirmed Vital Signs Blood pressure diastolic 65 mm Hg 07/24/2025 Height 4 ft 9 in in 07/24/2025 Blood pressure systolic 130 mm Hg 07/24/2025 Weight 182 lbs 07/24/2025 BMI 39.38 kg/m2 07/24/2025 Procedures Procedure Date Ordered Date Performed Result Body Sit e 58516-NBKZERZ NAIL, 6 OR MORE 12/26/2024 N/A 25400-Iqtvpbyx Plate 12/26/2024 N/A 27235-FJHT SKIN LESIONS, 2 TO 4 12/26/2024 N/A 44051-RGLHKGQ NAIL, 6 OR MORE 04/24/2025 N/A 68965-POTK SKIN LESIONS, 2 TO 4 04/24/2025 N/A 56191-PRWHWPQ NAIL, 6 OR MORE 07/24/2025 N/A 10570-NSLJ SKIN LESIONS, 2 TO 4 07/24/2025 N/A Encounters Encounter Location Date Provider Diagnosis [address] [address] 12/26/2024 Randy Leal Type 2 diabetes mellitus with diabetic polyneuropathy E11.42 ; Tinea unguium B35.1 ; Other hammer toe(s) (acquired), right foot M20.41 ; Other hammer toe(s) (acquired), left foot M20.42 and Subungual hematoma of left foot, initial encounter S90.222A [address] [address] 04/24/2025 Randy Leal Type 2 diabetes mellitus with diabetic polyneuropathy E11.42 ; Tinea unguium B35.1 and Xerosis of skin L85.[address] [address] 07/24/2025 Randy Leal Type 2 diabetes mellitus with diabetic polyneuropathy E11.42 ; Tinea unguium B35.1 and Xerosis of skin L85.[address] [address] 12/26/2024 Randy Leal [address] [address] 03/27/2025 Randy Leal Assessments Encounter Date Diagnosis [...] Treatment Pending Test Test Name Order Date 34223-SHVQKYG NAIL, 6 OR MORE 03/17/2024 58622-UPMMLDR NAIL, 6 OR MORE 06/16/2024 49613-LKFOUXV NAIL, 6 OR MORE 12/26/2024 77737-FNVFHHT NAIL, 6 OR MORE 04/24/2025 64345-ILLLZGF NAIL, 6 OR MORE 07/24/2025 50540-Lkzrtvyu Plate 12/26/2024 65107-RIAL SKIN LESIONS, 2 TO 4 07/24/20 30117-ELOZ SKIN LESIONS, 2 TO 4 04/24/20 74711-IXCM SKIN LESIONS, 2 TO 4 12/27/19 43944-LUNX SKIN LESIONS, 2 TO 4 06/16/20 24 34566-IYAB SKIN LESIONS, 2 TO 4 03/17/20 24 Next Appt Details Provider Name:Randy Leal , 11/20/2025 03:00:00 PM, [address] [place] [address], [phone], Insurance Providers Payer Name Payer Address Payer Phone Subscriber Number Group Number Insured Name Patient Relationship to Insured Coverage Start Date Coverage End Date [facility] [employer] Claims [address] [place] [id number] Katherine Jamil Self - patient is the insured Medical (General) History Medical History History ICD Code Anxiety Arthritis asthma Back,Hip,and Knee pain CAD (Cholesterol) Cataracts Depression Diabetic Heart disease High blood pressure Kidney disease Lung disease Numbness Poor circulation Reflux ( GERD) sinusitis Vascular phlebitis (clots) Chicken pox Replacement Heart Valves Transfusions Surgical History Surgery Date(Month/Year)
--- OUTSIDE RECORDS SUMMARY | 2025-10-01 10:21 | XMS_ITS | Encounter Summary ---
Author Organization [employer] [facility] Address [address] [place] [address] 7t [place] [address] Care Team Providers Care Food Packer Name Role Phone Unavailable Primary Care Provider Unavailabl e Reason for Visit * Reason Comments Med Refill Encounter Details Date Type Department Care Team (Late Contact Info) Description 01/19/2024 Refill [facility] MEDICINE [address] [place] [address] Christianne John MD [address] [place] [address] Vitamin deficiency Social History Tobacco Use Types [...] 1:30 PM EDT Office Visit [facility] ADULT DENTAL [address] [place] [address] Santos Garciaaris [address] [place] [address] documented as of this encounter Visit Diagnoses Diagnosis Vitamin deficiency Unspecified vitamin deficiency documented in this encounter
--- OUTSIDE RECORDS SUMMARY | 2025-10-01 10:21 | XMS_ITS | Encounter Summary ---
Author Organization [employer] [facility] Address [address] [place] [address] 7t [place] [address] Care Team Providers Care Supervisor Waterworks Name Role Phone Unavailable Primary Care Provider Unavailabl e Reason for Visit * Reason Comments Med Refill Encounter Details Date Type Department Care Team (Late st Contact Info) Description 11/29/2023 Refill [facility] MEDICINE [address] [place] [address] Christianne John MD [address] [place] [address] Moderate persistent asthma, unspecified whether complicated Social [...] Description 01/28/2026 1:30 PM EDT Office Visit [facility] ADULT DENTAL [address] [place] [address] Radha, Johana [address] [place] [address] documented as of this encounter Visit Diagnoses Diagnosis Moderate persistent asthma, unspecified whether complicated documented in this encounter
--- OUTSIDE RECORDS SUMMARY | 2025-10-01 10:21 | XMS_ITS | Encounter Summary ---
Author Organization [employer] [facility] Address [address] [place] [address] 7t [place] [address] Care Team Providers Care Fire Support Man Name Role Phone Unavailable Primary Care Provider Unavailabl e Reason for Visit * Reason Comments Med Refill Encounter Details Date Type Department Care Team (Late st Contact Info) Description 11/24/2023 Refill [facility] MEDICINE [address] [place] [address] Christianne John MD [address] [place] [address] Moderate persistent asthma, unspecified whether complicated Social [...] 1:30 PM EDT Office Visit [facility] ADULT DENTAL [address] [place] [address] Radha, Jhoana [address] [place] [address] documented as of this encounter Visit Diagnoses Diagnosis Moderate persistent asthma, unspecified whether complicated documented in this encounter
--- OUTSIDE RECORDS SUMMARY | 2025-10-01 10:21 | XMS_ITS | Encounter Summary ---
Author Organization [employer] [facility] Address [address] [place] [address] 7t [place] [address] Care Team Providers Care Dog Track Kennel Manager Name Role Phone Marycarmen Quijano MD Primary Care Provider [phone] Reason for Visit * Reason Comments Med Refill Encounter Details Date Type Department Care Team ([facility] Contact Info) Description 04/15/2023 Refill [facility] MEDICINE [address] [place] [address] Marycarmen Quijano MD [address] [place] [address] Social History Tobacco Use Types Packs/Day Years [...] ([facility] Contact Info) Description 01/28/2026 1:30 PM EDT Office Visit [facility] ADULT DENTAL [address] [place] [address] RadhaJohana [address] [place] [address] documented as of this encounter Visit Diagnoses Not on filedocumented in this encounter Care Teams Dog Track Kennel Manager Relationship Specialty Start Date End Date Marycarmen Quijano MD [address] [place] [address] PCP - General Family Medicine 03/02/23 06/20/23 documented as of this encounter
== END 2025-10-01 10:03 | disposition home or self-care (01) ==
LOC: HO.HMCH 09:42
PROVIDERS: PCP Internal Medicine; Visit Provider Internal Medicine
DX: I50.22 Chronic systolic (congestive) heart failure (principal); J44.9 Chronic obstructive pulmonary disease, unspecified; N18.32 Chronic kidney disease, stage 3b; E11.9 Type 2 diabetes mellitus without complications; I10 Essential (primary) hypertension; D50.9 Iron deficiency anemia, unspecified